=== PATIENT | female | born 1970 | race Caucasian/White ===

== ENCOUNTER 2020-08-13 12:39 | Outpatient (REF) | payer OTHER, SELFPAY ==
[2020-08-13 13:20] LABS: MANUAL DIFF FLAG NO
[2020-08-13 13:24] LABS: Hematocrit 41.6 % (37-47); Hemoglobin 13.2 g/dl (12.0-16.0); Imm Gran Abs Auto 0.01 X10*3/uL (0.00-0.03); Imm Gran Pct Auto 0.2 % (0.0-0.4); Lymphocytes Absolute Auto 1.8 X10*3/uL (1.2-4.9); Lymphocytes Percent Auto 34.4 % (20-40); Mean Corpuscular HGB Conc 31.7 g/dl (31.0-35.0); Mean Corpuscular Hemoglobin 28.1 pg (27.0-33.0); Mean Corpuscular Volume 88.7 fL (80-98); Mean Platelet Volume 11.1 fL (9.4-12.3); Monocytes Absolute Auto 0.5 X10*3/uL (0.1-1.2); Monocytes Percent Auto 10.3 % (2-11); Neutrophils Absolute Auto 2.9 X10*3/uL (2.0-8.3); Neutrophils Percent Auto 55.1 % (45-73); Platelet Count 193 X10*3/uL (160-400); Red Blood Count 4.69 X10*6/uL (4.20-5.50); Red Cell Distribution Width 13.3 % (11.0-16.0); White Blood Count 5.2 X10*3/uL (4.8-10.8)
[2020-08-13 13:48] LABS: Alanine Aminotransferase 54 U/L (0-31); Albumin Level 4.2 g/dL (3.5-5.0); Alkaline Phosphatase 122 U/L (39-117); Anion Gap 13 (12-20); Aspartate Amino Transferase 42 U/L (5-31); Bilirubin Total 1.3 mg/dL (0.0-1.0); Blood Urea Nitrogen 15 mg/dL (9-16); C Reactive Protein 0.16 mg/dL (< or = 0.50); Calcium 9.3 mg/dL (8.4-10.2); Carbon Dioxide 28 mmol/L (22-29); Chloride 102 mmol/L (96-108); Cholesterol 130 mg/dL; Estimated Glomerular Filt Rate > 60; Glucose Fasting 153 mg/dL (60-99); HDL Cholesterol 35 mg/dL; LDL Cholesterol Calculated 72 mg/dl; Potassium 3.9 mmol/l (3.3-5.1); Sodium 139 mmol/L (135-145); Total Protein 6.9 g/dL (6.5-8.0); Triglycerides 115 mg/dL
[2020-08-13 14:11] LABS: Free T4 (Free Thyroxine) 1.35 ng/dL (0.71-1.85); Thyroid Stimulating Hormone 0.84 mIU/mL (0.32-4.0)
[2020-08-13 14:13] LABS: Erythrocyte Sedimentation Rate 12 MM/HR (0-20)
[2020-08-14 22:07] LABS: Lyme Abs Screen <0.90 index
== END 2020-08-13 12:40 | disposition home or self-care (01) ==
LOC: HO.LAB 12:39
PROVIDERS: PCP Internal Medicine; Visit Provider Internal Medicine
DX: I10 Essential (primary) hypertension (principal); E78.00 Pure hypercholesterolemia, unspecified; E03.9 Hypothyroidism, unspecified; M25.551 Pain in right hip; M25.552 Pain in left hip; E11.9 Type 2 diabetes mellitus without complications; R60.0 Localized edema; R94.31 Abnormal electrocardiogram [ECG] [EKG]; Z79.82 Long term (current) use of aspirin; Z79.899 Other long term (current) drug therapy; Z79.84 Long term (current) use of oral hypoglycemic drugs
CPT/HCPCS: 36415; 80053; 80061; 84439; 84443; 85025; 85652; 86140; 86618; 93005; 99212

== ENCOUNTER 2020-12-15 11:06 | Outpatient (REF) | payer OTHER, SELFPAY | END 2020-12-15 11:07 | disposition home or self-care (01) | LOC: HO.HOSX 11:06 | PROVIDERS: Visit Provider Orthopaedic Surgery | DX: Z13.89 Encounter for screening for other disorder (principal) ==

== ENCOUNTER 2021-01-04 23:26 | Emergency (ER) | payer OTHER, SELFPAY ==
--- NOTE | ~2021-01-04 | US_ITS ---
EXAMINATION: US VENOUS ULTRASOUND WITH DOPPLER LOWER EXTREMITY, RIGHT CLINICAL INFORMATION: Swelling. COMPARISON: None TECHNIQUE: Ultrasound of the deep veins is performed from the hip to the calf with compression sonography and color and pulse Doppler assessment. Spectral analysis with color-flow imaging is performed. FINDINGS: There is normal venous compression and respiratory variation and augmented flow. The visualized common femoral vein, superficial femoral vein, profunda femoral vein, popliteal vein, and the trifurcation region shows no evidence of deep venous thrombosis. There is no significant popliteal fossa cyst. If the patient's symptoms persist, followup ultrasound in 5 days 7 days might be of value to exclude proximal propagation from a non-visualized calf vein. US/US venous duplex LE RT IMPRESSION: No DVT demonstrated in the right lower extremity.
[2021-01-04 23:30] VITALS: BP 149/90; PULSE 108; RESP 20; TEMP 36.9; O2SAT 97; BMI 34.4
--- NOTE | 2021-01-04 23:55 | ED.EXTPRO ---
HPI - Extremity Problem General Chief complaint: Extremity Problem Stated complaint: Leg pain/Swellig Time Seen by Provider: 01/04/21 23:46 Source: patient Mode of arrival: ambulatory Limitations: no limitations History of Present Illness HPI Narrative: Patient with history of severe asthma on faserna shots noticed swelling of the increased swelling of the right leg for last few days got worse today with redness and some discomfort in calf area also. No fever no chills no open wound no cough MD Complaint: extremity pain Onset (ago): day(s) (few days) Related Data Home Medications Medication Instructions Recorded Confirmed ondansetron 8 mg disintegrating 8 mg PO Q8H 07/28/20 11/10/20 tablet albuterol sulfate 90 mcg/actuation 2 puff INHALATION .4 TIMES A DAY 08/10/20 11/10/20 aerosol inhaler PRN g cholecalciferol (vitamin D3) 50 50 mcg PO DAILY 08/10/20 11/10/20 mcg (2,000 unit) capsule tizanidine 2 mg tablet 2 mg PO TID PRN 08/10/20 11/10/20 azelastine 137 mcg (0.1 %) nasal INTRANASAL 08/13/20 11/10/20 spray aerosol losartan 50 mg tablet 25 mg PO DAILY tab 08/13/20 11/10/20 Previous Rx's Medication Instructions Recorded omeprazole 40 mg capsule,delayed 40 mg PO BID 90 Days #180 cap 07/20/20 release Synthroid 112 mcg tablet 224 mcg PO DAILY 30 Days #60 tab NS 07/28/20 blood sugar diagnostic #150 ea 07/28/20 calcium citrate 500 mg PO BID 30 Days #120 tab 07/28/20 lancets 28 gauge #150 ea 07/28/20 metformin 500 mg tablet,extended 1,000 mg PO BID 30 Days #120 tab 07/28/20 release 24 hr metoprolol succinate 50 mg 50 mg PO DAILY 90 Days #90 tab 07/29/20 tablet,extended release 24 hr ferrous sulfate 325 mg (65 mg 325 mg PO DAILY #30 tab 07/30/20 iron) tablet miscellaneous medical supply 1 ea MISCELLANEOUS DAILY #2 ea 10/13/20 loratadine 10 mg tablet 10 mg PO DAILY #90 tab 10/22/20 fluconazole 150 mg tablet 150 mg PO DAILY 7 Days #7 tab 10/25/20 montelukast 10 mg tablet 10 mg PO BEDTIME #90 tab 10/27/20 atorvastatin 40 mg tablet 40 mg PO DAILY #90 tab 10/28/20 doxycycline hyclate 100 mg capsule 100 mg PO BID 10 Days #20 cap 11/04/20 DIABETIC SHOES #1 ea 11/10/20 ibuprofen 600 mg tablet 600 mg PO TID PRN #90 tab 12/17/20 hydromorphone 2 mg tablet 2 mg PO TID PRN 7 Days #21 tab 12/30/20 cephalexin 500 mg PO BID 10 Days #20 cap 01/05/21 doxycycline hyclate 100 mg PO BID #20 cap 01/05/21 hydrochlorothiazide 25 mg PO QAM #30 tab 01/05/21 Allergies Allergy/AdvReac Type Severity Reaction Status Date / Time latex [LATEX] Allergy Severe DIFFICULTY Verified 01/04/21 23:37 BREATHING levofloxacin [From LEVAQUIN] Allergy Severe SHORTNESS Verified 01/04/21 23:37 OF BREATH, RASH, rash morphine [MORPHINE] Allergy Severe RASH, Verified 01/04/21 23:37 asthma exacerbation, rash baclofen [BACLOFEN] Allergy Intermediate RASH Verified 01/04/21 23:37 celecoxib [Celebrex] Allergy Intermediate itching, Verified 01/04/21 23:37 rash, flushing prednisone [PREDNISONE] Allergy Intermediate RASH, Verified 01/04/21 23:37 asthma exacerbation, rash codeine Allergy Unknown Rash Verified 01/04/21 23:37 gluten [GLUTEN] Allergy Unknown UNKNOWN Verified 01/04/21 23:37 oxycodone Allergy Unknown rash Verified 01/04/21 23:37 ranitidine Allergy Unknown unknown Verified 01/04/21 23:37 roflumilast [Daliresp] Allergy Unknown rash Verified 01/04/21 23:37 tramadol [TRAMADOL] Allergy Unknown RASH,SHORTNESS Verified 01/04/21 23:37 OF BREATH AND HEADACHE, asthma exacerbation, rash celery, pinapple, Allergy Unknown rash Uncoded 01/04/21 23:37 strawberries ENVIROMENTAL Allergy Unknown CLEANING Uncoded 01/04/21 23:37 PRODUCTS CAUSE ASTHMA ATTACK Flexeril Allergy Unknown asthma Uncoded 01/04/21 23:37 exacerbation, rash Review of Systems Review of Systems: Constitutional : No Weight loss, No Fever, No Chills ENT/Mouth : No sore throat, No Rhinorrhea Eyes: No Eye Pain, No Swelling Cardiovascular : No Chest Pain, no palpitations Respiratory : No Cough, No Sputum, no shortness of breath Gastrointestinal : no Nausea, No Vomiting, No Diarrhea, No abdominal Pain, no black stools Genitourinary : No Dysuria, No Urinary Frequency Musculoskeletal : No joint pain, No Myalgias, No Joint Swelling Skin : No Skin Lesions, No rash Neuro : No Weakness, No Numbness, No Dizziness, No Headache Psych : No Anxiety/Panic, No Depression Heme/Lymph: No Bruising, No Lymphadenopathy Endocrine : No Polyuria, No Polydipsia All other systems reviewed and are negative [facility] Past Medical History Medical History Acquired hypothyroidism Asthma Benign essential hypertension Diabetes mellitus Gastritis History of revision of total replacement of right hip joint (~12/2019) HTN (hypertension) Hx of cataract Hypothyroidism Lumbar degenerative disc disease Mitochondrial myopathy Obesity (BMI 30-39.9) Osteoarthritis of hip Osteopenia Pain of both hip joints Pure hypercholesterolemia Right hip pain Surgical History History of elbow surgery (~07/2016) History of eye surgery (~09/2017) History of hip surgery History of removal of cyst History of total right hip arthroplasty (~06/03/19) Hx of appendectomy Hx of bilateral breast reduction surgery Hx of foot surgery Hx of hysterectomy (~07/2011) Hx of left knee surgery Hx of thumb surgery Family History Family History Father Leukemia Mother Hypertension Diabetes Sister Alive and well Brother Pancreatic cancer Paternal Grandmother Stomach cancer Paternal Grandmother Throat cancer Social History Social History Alcohol intake: never Smoking Status: Never smoker Advance Directives: No Advance Directives Information Provided: No Physical Exam Vital Signs: Vital Signs: Last Vital Signs Temp 98.4 F 01/04/21 23:30 Pulse 108 H 01/04/21 23:30 Resp 20 01/04/21 23:30 BP 149/90 H 01/04/21 23:30 Pulse Ox 97 01/04/21 23:30 Body Mass Index 34.4 Const: General: comfortable and no acute distress Orientation/consciousness: patient oriented x3 HENMT: Head: Yes normocephalic and Yes atraumatic Eyes: General: appearance normal, both eyes and all related structures Neck: Neck: Yes normal visual inspection and Yes full ROM Chest: Chest palpation & inspection: normal inspection of the chest Resp: Effort & Inspection: normal respiratory effort Auscultation: clear to auscultation bilaterally, no crackles, no rales and no rhonchi Cardio: Palpation: normal PMI Rate: regular rate Rhythm: regular rhythm Heart sounds: S1 normal heart sound present and S2 normal heart sound present GI: Inspection: Yes normal to inspection Palpation (GI): Soft to palpation and nontender : General: Yes no CVA tenderness Back/Spine/Pelvis: Back: no CVA tenderness Thoracic/Lumbar Spine: thoracic and lumbar spine normal to inspection Skin: Other: Slight erythema of the right leg without any warmth no open wound Neuro: General: patient oriented x3 and no focal motor deficits Extrem: General: Yes full ROM and Yes pedal edema Upper/lower leg/hip images: 1. Right leg swelling more than left with calf tenderness and slight erythema Kervin sign is negative MDM - Extremity (Nontraumatic) MDM Narrative Medical decision making narrative: Patient with right leg swelling and redness with normal WBC count normal lactic acid ultrasound negative for DVT, patient is on faserna. Will start patient on prophylactic antibiotic doxycycline and Keflex along with give her hydrochlorothiazide for dependent edema Lab Data Attestation: I reviewed the patient's lab results. Result diagrams: 01/05/21 00:29 01/05/21 00:28 Labs: Lab Results 01/05/21 01/05/21 01/05/21 Range/Units 00:28 00:28 00:28 WBC (4.8-10.8) X10*3/uL RBC (4.20-5.50) X10*6/uL Hgb (12.0-16.0) g/dl Hct (37-47) % MCV (80-98) fL MCH (27.0-33.0) pg MCHC (31.0-35.0) g/dl RDW (11.0-16.0) % Plt Count (160-400) X10*3/uL MPV (9.4-12.3) fL Immature Gran % (Auto) (0.0-0.4) % Neut % (Auto) (45-73) % Lymph % (Auto) (20-40) % [place] % (Auto) (2-11) % Eos % (Auto) (0-4) % Baso % (Auto) (0-2) % Lymph # (Auto) (1.2-4.9) X10*3/uL [place] # (Auto) (0.1-1.2) X10*3/uL Eos # (Auto) (0.0-0.4) X10*3/uL Baso # (Auto) (0.0-0.2) X10*3/uL Abs Immat Gran (auto) (0.00-0.03) X10*3/uL Absolute Neuts (auto) (2.0-8.3) X10*3/uL Absolute Nucleated RBC (0.0-0.012) X10*3/uL Nucleated RBC % (auto) (0.0-0.2) /100WBC PT 11.2 (10.8-13.0) SEC INR 0.9 (0.9-1.1) APTT 32.0 (24.1-38.0) SEC Sodium 138 (135-145) mmol/L Potassium 4.0 (3.3-5.1) mmol/L Chloride 102 (96-108) mmol/L Carbon Dioxide 25 (22-29) mmol/L Anion Gap 15 (12-20) BUN 17 H (9-16) mg/dL Creatinine 0.91 (0.5-1.4) mg/dL Estim Creat Clear Calc 80.0 Estimated GFR > 60 Random Glucose 234 H (60-115) mg/dL Lactic Acid (0.5-2.0) mmol/L Calcium 9.4 (8.4-10.2) mg/dL Total Bilirubin 1.2 H (0.0-1.0) mg/dL Direct Bilirubin 0.4 (0.0-0.5) mg/dL AST 31 (5-31) U/L ALT 47 H (0-31) U/L Alkaline Phosphatase 126 H (39-117) U/L B-Natriuretic Peptide 27 (<100) pg/mL Total Protein 6.8 (6.5-8.0) g/dL Albumin 3.9 (3.5-5.0) g/dL 01/05/21 01/05/21 Range/Units 00:29 00:29 WBC 5.5 (4.8-10.8) X10*3/uL RBC 4.17 L (4.20-5.50) X10*6/uL Hgb 11.8 L (12.0-16.0) g/dl Hct 36.0 L (37-47) % MCV 86.3 (80-98) fL MCH 28.3 (27.0-33.0) pg MCHC 32.8 (31.0-35.0) g/dl RDW 14.2 (11.0-16.0) % Plt Count 158 L (160-400) X10*3/uL MPV 10.6 (9.4-12.3) fL Immature Gran % (Auto) 0.2 (0.0-0.4) % Neut % (Auto) 59.4 (45-73) % Lymph % (Auto) 29.3 (20-40) % [place] % (Auto) 11.1 H (2-11) % Eos % (Auto) 0.0 (0-4) % Baso % (Auto) 0.0 (0-2) % Lymph # (Auto) 1.6 (1.2-4.9) X10*3/uL [place] # (Auto) 0.6 (0.1-1.2) X10*3/uL Eos # (Auto) 0.0 (0.0-0.4) X10*3/uL Baso # (Auto) 0.0 (0.0-0.2) X10*3/uL Abs Immat Gran (auto) 0.01 (0.00-0.03) X10*3/uL Absolute Neuts (auto) 3.3 (2.0-8.3) X10*3/uL Absolute Nucleated RBC 0.000 (0.0-0.012) X10*3/uL Nucleated RBC % (auto) 0.0 (0.0-0.2) /100WBC PT (10.8-13.0) SEC INR (0.9-1.1) APTT (24.1-38.0) SEC Sodium (135-145) mmol/L Potassium (3.3-5.1) mmol/L Chloride (96-108) mmol/L Carbon Dioxide (22-29) mmol/L Anion Gap (12-20) BUN (9-16) mg/dL Creatinine (0.5-1.4) mg/dL Estim Creat Clear Calc Estimated GFR Random Glucose (60-115) mg/dL Lactic Acid 1.9 (0.5-2.0) mmol/L Calcium (8.4-10.2) mg/dL Total Bilirubin (0.0-1.0) mg/dL Direct Bilirubin (0.0-0.5) mg/dL AST (5-31) U/L ALT (0-31) U/L Alkaline Phosphatase (39-117) U/L B-Natriuretic Peptide (<100) pg/mL Total Protein (6.5-8.0) g/dL Albumin (3.5-5.0) g/dL Discharge Plan Discharge Clinical Impression: Cellulitis Qualifiers: Site of cellulitis: extremity Site of cellulitis of extremity: lower extremity Laterality: right Qualified Code(s): L03.115 - Cellulitis of right lower limb Edema Qualifiers: Edema type: unspecified Qualified Code(s): R60.9 - Edema, unspecified Patient Disposition: Home, Self-Care Instructions: Cellulitis (ED), Edema (ED) Additional Instructions: Keep legs elevated take antibiotic as advise for possible infection right leg. Follow with PCP Prescriptions: New doxycycline hyclate 100 mg capsule 100 mg PO BID Qty: 20 RF: 0 cephalexin 500 mg capsule 500 mg PO BID 10 Days Qty: 20 RF: 0 hydrochlorothiazide 25 mg tablet 25 mg PO QAM Qty: 30 RF: 0 No Action omeprazole 40 mg capsule,delayed release(DR/EC) 40 mg PO BID 90 Days Qty: 180 RF: 3 (DME) lancets [FreeStyle Lancets] 28 gauge misc See Rx Instructions .MEDSUPPLY Qty: 150 RF: 4 (DME) FreeStyle Test Strip See Rx Instructions .MEDSUPPLY Qty: 150 RF: 6 metformin 500 mg tablet extended release 24 hr 1,000 mg PO BID 30 Days Qty: 120 RF: 5 calcium citrate 250 mg calcium tablet 500 mg PO BID 30 Days Qty: 120 RF: 5 levothyroxine [Synthroid] 112 mcg tablet 224 mcg PO DAILY 30 Days Qty: 60 RF: 5 ondansetron 8 mg tablet,disintegrating 8 mg PO Q8H RF: 0 metoprolol succinate 50 mg tablet extended release 24 hr 50 mg PO DAILY 90 Days Qty: 90 RF: 1 ferrous sulfate 325 mg (65 mg iron) tablet 325 mg PO DAILY Qty: 30 RF: 0 miscellaneous medical supply Misc 1 ea miscellaneous DAILY Qty: 2 RF: 0 loratadine 10 mg tablet 10 mg PO DAILY Qty: 90 RF: 0 fluconazole 150 mg tablet 150 mg PO DAILY 7 Days Qty: 7 RF: 0 montelukast 10 mg tablet 10 mg PO BEDTIME Qty: 90 RF: 0 atorvastatin 40 mg tablet 40 mg PO DAILY Qty: 90 RF: 0 ibuprofen 600 mg tablet 600 mg PO TID PRN (Reason: for fever) Qty: 90 RF: 2 hydromorphone 2 mg tablet 2 mg PO TID PRN (Reason: pain) 7 Days Qty: 21 RF: 0 (DME) DIABETIC SHOES See Rx Instructions .Route .MEDSUPPLY Qty: 1 RF: 0 albuterol sulfate [Ventolin HFA] 90 mcg/actuation HFA aerosol inhaler 2 puff inhalation .4 TIMES A DAY PRNRF: 0 tizanidine 2 mg tablet 2 mg PO TID PRNRF: 0 cholecalciferol (vitamin D3) 50 mcg (2,000 unit) capsule 50 mcg PO DAILY RF: 0 losartan 50 mg tablet 25 mg PO DAILY RF: 0 doxycycline hyclate 100 mg capsule 100 mg PO BID 10 Days Qty: 20 RF: 0 azelastine 137 mcg (0.1 %) aerosol,spray intranasal RF: 0
[2021-01-05 00:36] LABS: MANUAL DIFF FLAG NO
[2021-01-05 00:41] LABS: Hemoglobin 11.8 g/dl (12.0-16.0); Imm Gran Abs Auto 0.01 X10*3/uL (0.00-0.03); Imm Gran Pct Auto 0.2 % (0.0-0.4); Lymphocytes Absolute Auto 1.6 X10*3/uL (1.2-4.9); Lymphocytes Percent Auto 29.3 % (20-40); Mean Corpuscular HGB Conc 32.8 g/dl (31.0-35.0); Mean Corpuscular Hemoglobin 28.3 pg (27.0-33.0); Mean Corpuscular Volume 86.3 fL (80-98); Mean Platelet Volume 10.6 fL (9.4-12.3); Monocytes Absolute Auto 0.6 X10*3/uL (0.1-1.2); Monocytes Percent Auto 11.1 % (2-11); Neutrophils Absolute Auto 3.3 X10*3/uL (2.0-8.3); Neutrophils Percent Auto 59.4 % (45-73); Platelet Count 158 X10*3/uL (160-400); Red Blood Count 4.17 X10*6/uL (4.20-5.50); Red Cell Distribution Width 14.2 % (11.0-16.0); White Blood Count 5.5 X10*3/uL (4.8-10.8)
[2021-01-05 00:48] LABS: INTERNATIONAL NORM RATIO 0.9 (0.9-1.1); Prothrombin Time 11.2 SEC (10.8-13.0)
[2021-01-05 01:00] LABS: Lactic Acid 1.9 mmol/L (0.5-2.0)
[2021-01-05 01:03] LABS: Alanine Aminotransferase 47 U/L (0-31); Albumin Level 3.9 g/dL (3.5-5.0); Alkaline Phosphatase 126 U/L (39-117); Anion Gap 15 (12-20); Aspartate Amino Transferase 31 U/L (5-31); Bilirubin Direct 0.4 mg/dL (0.0-0.5); Bilirubin Total 1.2 mg/dL (0.0-1.0); Blood Urea Nitrogen 17 mg/dL (9-16); Calcium 9.4 mg/dL (8.4-10.2); Carbon Dioxide 25 mmol/L (22-29); Chloride 102 mmol/L (96-108); Estimated Glomerular Filt Rate > 60; Glucose Random 234 mg/dL (60-115); Sodium 138 mmol/L (135-145); Total Protein 6.8 g/dL (6.5-8.0)
[2021-01-05 01:06] LABS: B Type Natriuretic Peptide 27 pg/mL (<100)
[2021-01-05] MEDS: cephALEXin 500 MG CAPSULE PO (01:31)
[2021-01-05 01:42] VITALS: BP 150/84; PULSE 80; RESP 18; O2SAT 97
== END 2021-01-05 01:53 | disposition home or self-care (01) ==
PROVIDERS: Emergency Provider Internal Medicine; PCP Internal Medicine
DX: R60.0 Localized edema (principal); L03.115 Cellulitis of right lower limb; M79.604 Pain in right leg; I10 Essential (primary) hypertension; E11.9 Type 2 diabetes mellitus without complications
CPT/HCPCS: 36415; 80048; 80076; 83605; 83880; 85025; 85610; 85730; 87040; 93971; 99284

== ENCOUNTER → 2021-01-15 13:35 | Outpatient (BNVA) | payer OTHER, SELFPAY | PROVIDERS: PCP Internal Medicine; Visit Provider Hospitalist | DX: J45.50 Severe persistent asthma, uncomplicated (principal); D80.1 Nonfamilial hypogammaglobulinemia; G47.33 Obstructive sleep apnea (adult) (pediatric) | CPT/HCPCS: 90471; 90732; 99202 ==

== ENCOUNTER 2021-02-03 16:55 | Emergency (ER) | payer OTHER, SELFPAY ==
--- NOTE | ~2021-02-03 | XR_ITS ---
EXAMINATION: PORTABLE CHEST 1 VIEW CLINICAL INFORMATION: sob . COMPARISON: 12/07/2019. TECHNIQUE: Portable frontal view of the chest was obtained. FINDINGS: The lungs are hypoexpanded with chronic appearing coarsened reticular markings again seen. No focal infiltrate, effusion, edema, or pneumothorax. Cardiac and mediastinal silhouettes are within normal limits for technique. Right-sided CT compatible chest port in place with the tip overlying the expected cavoatrial junction No acute bony abnormality seen. XR/XR chest 1V IMPRESSION: Hypoexpanded with chronic appearing reticular markings but no overt edema or consolidation.
[2021-02-03 17:18] VITALS: BP 150/96; BP 163/94; PULSE 87; PULSE 98; RESP 22; TEMP 36.8; O2SAT 100; BMI 34.8
--- NOTE | 2021-02-03 17:38 | ED.SOB ---
HPI - SOB/Dyspnea General Chief Complaint: General Medical Stated Complaint: SOB Time Seen by Provider: 02/03/21 17:33 Source: patient Mode of arrival: EMS Limitations: no limitations History of Present Illness HPI Narrative: Patient has history of asthma diabetes mellitus hypertension Brugada syndrome type 2 anxiety comes here frequently for shortness of breath. Today she came here for similar complaints of shortness of breath for last few days but she was saturating 100% room air not wheezing. Patient also does have chronic bilateral leg edema which is going on for last 1 month treated for cellulitis patient denies any chest pain no cough no fever no chills patient used inhaler multiple times without significant relief MD elicited complaint: shortness of breath Related Data Home Medications Medication Instructions Recorded Confirmed ondansetron 8 mg disintegrating 8 mg PO Q8H 07/28/20 01/17/21 tablet albuterol sulfate 90 mcg/actuation 2 puff INHALATION .4 TIMES A DAY 08/10/20 01/17/21 aerosol inhaler PRN g cholecalciferol (vitamin D3) 50 50 mcg PO DAILY 08/10/20 01/17/21 mcg (2,000 unit) capsule tizanidine 2 mg tablet 2 mg PO TID PRN 08/10/20 01/17/21 azelastine 137 mcg (0.1 %) nasal INTRANASAL 08/13/20 01/17/21 spray aerosol benralizumab 30 mg/mL subcutaneous mg SUBCUT 01/15/21 01/17/21 syringe immune glob,gamma (IgG) 10 ml IV Q3W ml 01/15/21 01/17/21 %-gly-IgA over 50 mcg/mL injection solution levalbuterol tartrate 45 0 mcg INHALATION 01/15/21 01/17/21 mcg/actuation aerosol inhaler pyridostigmine bromide 60 mg tablet 0 mg PO 01/15/21 01/17/21 Previous Rx's Medication Instructions Recorded omeprazole 40 mg capsule,delayed 40 mg PO BID 90 Days #180 cap 07/20/20 release Synthroid 112 mcg tablet 224 mcg PO DAILY 30 Days #60 tab NS 07/28/20 blood sugar diagnostic #150 ea 07/28/20 calcium citrate 500 mg PO BID 30 Days #120 tab 07/28/20 lancets 28 gauge #150 ea 07/28/20 metformin 500 mg tablet,extended 1,000 mg PO BID 30 Days #120 tab 07/28/20 release 24 hr metoprolol succinate 50 mg 50 mg PO DAILY 90 Days #90 tab 07/29/20 tablet,extended release 24 hr ferrous sulfate 325 mg (65 mg 325 mg PO DAILY #30 tab 07/30/20 iron) tablet miscellaneous medical supply 1 ea MISCELLANEOUS DAILY #2 ea 10/13/20 fluconazole 150 mg tablet 150 mg PO DAILY 7 Days #7 tab 10/25/20 doxycycline hyclate 100 mg capsule 100 mg PO BID 10 Days #20 cap 11/04/20 DIABETIC SHOES #1 ea 11/10/20 ibuprofen 600 mg tablet 600 mg PO TID PRN #90 tab 12/17/20 cephalexin 500 mg PO BID 10 Days #20 cap 01/05/21 doxycycline hyclate 100 mg PO BID #20 cap 01/05/21 hydrochlorothiazide 25 mg PO QAM #30 tab 01/05/21 amoxicillin 875 mg tablet 875 mg PO Q12H 10 Days #20 tab 01/07/21 loratadine 10 mg tablet 10 mg PO DAILY #90 tab 01/15/21 losartan 25 mg tablet 25 mg PO DAILY #90 tab 01/15/21 mometasone 100 mcg/actuation HFA 2 puff INHALATION BID 30 Days #13 g 01/15/21 aerosol inhaler montelukast 10 mg tablet 10 mg PO BEDTIME #90 tab 01/15/21 atorvastatin 40 mg tablet 40 mg PO DAILY #90 tab 01/27/21 hydromorphone 2 mg tablet 2 mg PO TID PRN 7 Days #21 tab 01/27/21 sulfamethoxazole-trimethoprim 1 tab PO BID #20 tab 02/03/21 [Bactrim DS] Allergies Allergy/AdvReac Type Severity Reaction Status Date / Time latex [LATEX] Allergy Severe DIFFICULTY Verified 01/17/21 22:02 BREATHING levofloxacin [From LEVAQUIN] Allergy Severe SHORTNESS Verified 01/17/21 22:02 OF BREATH, RASH, rash morphine [MORPHINE] Allergy Severe RASH, Verified 01/17/21 22:02 asthma exacerbation, rash baclofen [BACLOFEN] Allergy Intermediate RASH Verified 01/17/21 22:02 celecoxib [Celebrex] Allergy Intermediate itching, Verified 01/17/21 22:02 rash, flushing prednisone [PREDNISONE] Allergy Intermediate RASH, Verified 01/17/21 22:02 asthma exacerbation, rash codeine Allergy Unknown Rash Verified 01/17/21 22:02 gluten [GLUTEN] Allergy Unknown UNKNOWN Verified 01/17/21 22:02 oxycodone Allergy Unknown rash Verified 01/17/21 22:02 ranitidine Allergy Unknown unknown Verified 01/17/21 22:02 roflumilast [Daliresp] Allergy Unknown rash Verified 01/17/21 22:02 tramadol [TRAMADOL] Allergy Unknown RASH,SHORTNESS Verified 01/17/21 22:02 OF BREATH AND HEADACHE, asthma exacerbation, rash cephalexin AdvReac Intermediate Difficulty Verified 01/17/21 22:02 Breathing celery, pinapple, Allergy Unknown rash Uncoded 01/17/21 22:02 strawberries ENVIROMENTAL Allergy Unknown CLEANING Uncoded 01/17/21 22:02 PRODUCTS CAUSE ASTHMA ATTACK Flexeril Allergy Unknown asthma Uncoded 01/17/21 22:02 exacerbation, rash Review of Systems Review of Systems: Constitutional : No Weight loss, No Fever, No Chills ENT/Mouth : No sore throat, No Rhinorrhea Eyes: No Eye Pain, No Swelling Cardiovascular : No Chest Pain, no palpitations Respiratory : No Cough, No Sputum, +shortness of breath Gastrointestinal : no Nausea, No Vomiting, No Diarrhea, No abdominal Pain, no black stools Genitourinary : No Dysuria, No Urinary Frequency Musculoskeletal : No joint pain, No Myalgias, No Joint Swelling Skin : No Skin Lesions, No rash Neuro : No Weakness, No Numbness, No Dizziness, No Headache Psych : No Anxiety/Panic, No Depression Heme/Lymph: No Bruising, No Lymphadenopathy Endocrine : No Polyuria, No Polydipsia All other systems reviewed and are negative [facility] Past Medical History Medical History Acquired hypothyroidism Asthma Asthma Benign essential hypertension Cellulitis of both lower extremities Diabetes mellitus Gastritis History of revision of total replacement of right hip joint (~12/2019) HTN (hypertension) Hx of cataract Hypogammaglobulinemia Hypothyroidism Lumbar degenerative disc disease Mitochondrial myopathy Obesity (BMI 30-39.9) CHARLES (obstructive sleep apnea) Osteoarthritis of hip Osteopenia Pain of both hip joints Pure hypercholesterolemia Right hip pain Surgical History History of elbow surgery (~07/2016) History of eye surgery (~09/2017) History of hip surgery History of removal of cyst History of total right hip arthroplasty (~06/03/19) Hx of appendectomy Hx of bilateral breast reduction surgery Hx of foot surgery Hx of hysterectomy (~07/2011) Hx of left knee surgery Hx of thumb surgery Family History Family History Father Leukemia Mother Hypertension Diabetes Sister Alive and well Brother Pancreatic cancer Paternal Grandmother Stomach cancer Paternal Grandmother Throat cancer Social History Social History Alcohol intake: never Smoking Status: Former smoker Advance Directives: No Advance Directives Information Provided: Yes Physical Exam Vital Signs: Vital Signs: Last Vital Signs Temp 98.3 F 02/03/21 17:18 Pulse 87 02/03/21 17:18 Resp 22 H 02/03/21 17:18 BP 163/94 H 02/03/21 17:18 Pulse Ox 100 02/03/21 17:18 Body Mass Index 34.8 Appearance: Alert. Oriented X3. Mild distress very anxious saturating 100% at room air Eyes: Pupils equal, round and reactive to light. ENT: Pharynx normal. Neck: Normal inspection. Neck supple. CVS: Normal heart rate and rhythm. Pulses normal. Respiratory: No respiratory distress. No wheezing or rhonchi no rales Prolonged expiration Abdomen: Soft and nontender. Bowel sounds are present, no mass palpable, no CVA tenderness Skin: Skin warm and dry. Normal skin color. Normal skin turgor. Extremities: Bilateral leg edema, right lower extremity with cellulitic changes which seems to be chronic Neuro: Oriented X 3. No motor deficit. No sensory deficit. MDM - SOB/Dyspnea MDM Narrative Medical decision making narrative: Patient's subjective shortness of breath with history of asthma saturating 97-100% at room air chest x-ray negative lab stable does have chronic cellulitis on right leg on doxycycline will add Bactrim. Advised to follow up with her PCP Lab Data Result diagrams: 02/03/21 18:49 02/03/21 18:41 Labs: Lab Results 02/03/21 02/03/21 02/03/21 Range/Units 18:41 18:49 18:49 WBC 5.3 (4.8-10.8) X10*3/uL RBC 3.73 L (4.20-5.50) X10*6/uL Hgb 10.7 L (12.0-16.0) g/dl Hct 31.5 L (37-47) % MCV 84.5 (80-98) fL MCH 28.7 (27.0-33.0) pg MCHC 34.0 (31.0-35.0) g/dl RDW 13.4 (11.0-16.0) % Plt Count 156 L (160-400) X10*3/uL MPV 10.7 (9.4-12.3) fL Immature Gran % (Auto) 0.2 (0.0-0.4) % Neut % (Auto) 60.1 (45-73) % Lymph % (Auto) 28.1 (20-40) % [place] % (Auto) 11.6 H (2-11) % Eos % (Auto) 0.0 (0-4) % Baso % (Auto) 0.0 (0-2) % Lymph # (Auto) 1.5 (1.2-4.9) X10*3/uL [place] # (Auto) 0.6 (0.1-1.2) X10*3/uL Eos # (Auto) 0.0 (0.0-0.4) X10*3/uL Baso # (Auto) 0.0 (0.0-0.2) X10*3/uL Abs Immat Gran (auto) 0.01 (0.00-0.03) X10*3/uL Absolute Neuts (auto) 3.2 (2.0-8.3) X10*3/uL Absolute Nucleated RBC 0.000 (0.0-0.012) X10*3/uL Nucleated RBC % (auto) 0.0 (0.0-0.2) /100WBC PT 12.2 (10.8-13.0) SEC INR 1.0 (0.9-1.1) APTT 32.0 (24.1-38.0) SEC Sodium 135 (135-145) mmol/L Potassium 3.9 (3.3-5.1) mmol/L Chloride 101 (96-108) mmol/L Carbon Dioxide 21 L (22-29) mmol/L Anion Gap 17 (12-20) BUN 10 (9-16) mg/dL Creatinine 0.65 (0.5-1.4) mg/dL Estim Creat Clear Calc 112.5 Estimated GFR > 60 Random Glucose 123 H D (60-115) mg/dL Calcium 9.3 (8.4-10.2) mg/dL Total Bilirubin 1.2 H (0.0-1.0) mg/dL Direct Bilirubin 0.4 (0.0-0.5) mg/dL AST 30 (5-31) U/L ALT 31 (0-31) U/L Alkaline Phosphatase 127 H (39-117) U/L B-Natriuretic Peptide (<100) pg/mL Total Protein 6.4 L (6.5-8.0) g/dL Albumin 3.8 (3.5-5.0) g/dL 02/03/21 Range/Units 18:49 WBC (4.8-10.8) X10*3/uL RBC (4.20-5.50) X10*6/uL Hgb (12.0-16.0) g/dl Hct (37-47) % MCV (80-98) fL MCH (27.0-33.0) pg MCHC (31.0-35.0) g/dl RDW (11.0-16.0) % Plt Count (160-400) X10*3/uL MPV (9.4-12.3) fL Immature Gran % (Auto) (0.0-0.4) % Neut % (Auto) (45-73) % Lymph % (Auto) (20-40) % [place] % (Auto) (2-11) % Eos % (Auto) (0-4) % Baso % (Auto) (0-2) % Lymph # (Auto) (1.2-4.9) X10*3/uL [place] # (Auto) (0.1-1.2) X10*3/uL Eos # (Auto) (0.0-0.4) X10*3/uL Baso # (Auto) (0.0-0.2) X10*3/uL Abs Immat Gran (auto) (0.00-0.03) X10*3/uL Absolute Neuts (auto) (2.0-8.3) X10*3/uL Absolute Nucleated RBC (0.0-0.012) X10*3/uL Nucleated RBC % (auto) (0.0-0.2) /100WBC PT (10.8-13.0) SEC INR (0.9-1.1) APTT (24.1-38.0) SEC Sodium (135-145) mmol/L Potassium (3.3-5.1) mmol/L Chloride (96-108) mmol/L Carbon Dioxide (22-29) mmol/L Anion Gap (12-20) BUN (9-16) mg/dL Creatinine (0.5-1.4) mg/dL Estim Creat Clear Calc Estimated GFR Random Glucose (60-115) mg/dL Calcium (8.4-10.2) mg/dL Total Bilirubin (0.0-1.0) mg/dL Direct Bilirubin (0.0-0.5) mg/dL AST (5-31) U/L ALT (0-31) U/L Alkaline Phosphatase (39-117) U/L B-Natriuretic Peptide 75 (<100) pg/mL Total Protein (6.5-8.0) g/dL Albumin (3.5-5.0) g/dL ECG Data Attestation: I personally reviewed and interpreted this ECG as follows: Interpretation: Normal sinus rhythm heart rate 92 beats per minute right bundle-branch block possible criteria for Brugada syndrome LVH no acute ST T-wave changes no arrhythmias no acute ischemia Discharge Plan Discharge Clinical Impression: Asthma Qualifiers: Asthma severity: moderate Asthma persistence: persistent Asthma complication type: with acute exacerbation Qualified Code(s): J45.41 - Moderate persistent asthma with (acute) exacerbation Cellulitis Qualifiers: Site of cellulitis: extremity Site of cellulitis of extremity: lower extremity Laterality: right Qualified Code(s): L03.115 - Cellulitis of right lower limb Patient Disposition: Home, Self-Care Instructions: Asthma (ED), Cellulitis (ED) Additional Instructions: Continue your medications start taking Bactrim for cellulitis right leg Prescriptions: New sulfamethoxazole-trimethoprim [Bactrim DS] 800-160 mg tablet 1 tab PO BID Qty: 20 RF: 0 No Action omeprazole 40 mg capsule,delayed release(DR/EC) 40 mg PO BID 90 Days Qty: 180 RF: 3 (DME) lancets [FreeStyle Lancets] 28 gauge misc See Rx Instructions .MEDSUPPLY Qty: 150 RF: 4 (DME) FreeStyle Test Strip See Rx Instructions .MEDSUPPLY Qty: 150 RF: 6 metformin 500 mg tablet extended release 24 hr 1,000 mg PO BID 30 Days Qty: 120 RF: 5 calcium citrate 250 mg calcium tablet 500 mg PO BID 30 Days Qty: 120 RF: 5 levothyroxine [Synthroid] 112 mcg tablet 224 mcg PO DAILY 30 Days Qty: 60 RF: 5 ondansetron 8 mg tablet,disintegrating 8 mg PO Q8H RF: 0 metoprolol succinate 50 mg tablet extended release 24 hr 50 mg PO DAILY 90 Days Qty: 90 RF: 1 ferrous sulfate 325 mg (65 mg iron) tablet 325 mg PO DAILY Qty: 30 RF: 0 miscellaneous medical supply Misc 1 ea miscellaneous DAILY Qty: 2 RF: 0 fluconazole 150 mg tablet 150 mg PO DAILY 7 Days Qty: 7 RF: 0 ibuprofen 600 mg tablet 600 mg PO TID PRN (Reason: for fever) Qty: 90 RF: 2 losartan 25 mg tablet 25 mg PO DAILY Qty: 90 RF: 3 loratadine 10 mg tablet 10 mg PO DAILY Qty: 90 RF: 1 montelukast 10 mg tablet 10 mg PO BEDTIME Qty: 90 RF: 1 hydromorphone 2 mg tablet 2 mg PO TID PRN (Reason: pain) 7 Days Qty: 21 RF: 0 atorvastatin 40 mg tablet 40 mg PO DAILY Qty: 90 RF: 1 doxycycline hyclate 100 mg capsule 100 mg PO BID Qty: 20 RF: 0 cephalexin 500 mg capsule 500 mg PO BID 10 Days Qty: 20 RF: 0 hydrochlorothiazide 25 mg tablet 25 mg PO QAM Qty: 30 RF: 0 (DME) DIABETIC SHOES See Rx Instructions .Route .MEDSUPPLY Qty: 1 RF: 0 amoxicillin 875 mg tablet 875 mg PO Q12H 10 Days Qty: 20 RF: 0 albuterol sulfate [Ventolin HFA] 90 mcg/actuation HFA aerosol inhaler 2 puff inhalation .4 TIMES A DAY PRNRF: 0 tizanidine 2 mg tablet 2 mg PO TID PRNRF: 0 cholecalciferol (vitamin D3) 50 mcg (2,000 unit) capsule 50 mcg PO DAILY RF: 0 doxycycline hyclate 100 mg capsule 100 mg PO BID 10 Days Qty: 20 RF: 0 azelastine 137 mcg (0.1 %) aerosol,spray intranasal RF: 0 pyridostigmine bromide 60 mg tablet 0 mg PO RF: 0 Fasenra 30 mg/mL syringe subcut RF: 0 Gammagard Liquid 10 % solution IV Q3W RF: 0 levalbuterol tartrate 45 mcg/actuation HFA aerosol inhaler 0 mcg inhalation RF: 0 Asmanex HFA 100 mcg/actuation HFA aerosol inhaler 2 puff inhalation BID 30 Days Qty: 13 RF: 11
--- NOTE | 2021-02-03 17:44 | ECG_ITS ---
Test Reason : BRUGOTTAS Blood Pressure : / mmHG Vent. Rate : 092 BPM Atrial Rate : 092 BPM P-R Int : 130 ms QRS Dur : 150 ms QT Int : 414 ms P-R-T Axes : 029 -21 000 degrees QTc Int : 511 ms Normal sinus rhythm Right bundle branch block Minimal voltage criteria for LVH, may be normal variant Abnormal ECG When compared to the previous EKG of Right bundle branch block Present Referred By: Bashir Peters Electronically Signed By:Jordan Lehman
--- NOTE | 2021-02-03 18:07 | PC.NURSE ---
attempted x2 to access port unable to, pt states its always a hard access. Ced RN will attempt
[2021-02-03 19:07] LABS: Hematocrit 31.5 % (37-47); Hemoglobin 10.7 g/dl (12.0-16.0); Imm Gran Abs Auto 0.01 X10*3/uL (0.00-0.03); Imm Gran Pct Auto 0.2 % (0.0-0.4); Lymphocytes Absolute Auto 1.5 X10*3/uL (1.2-4.9); Lymphocytes Percent Auto 28.1 % (20-40); MANUAL DIFF FLAG NO; Mean Corpuscular Hemoglobin 28.7 pg (27.0-33.0); Mean Corpuscular Volume 84.5 fL (80-98); Mean Platelet Volume 10.7 fL (9.4-12.3); Monocytes Absolute Auto 0.6 X10*3/uL (0.1-1.2); Monocytes Percent Auto 11.6 % (2-11); Neutrophils Absolute Auto 3.2 X10*3/uL (2.0-8.3); Neutrophils Percent Auto 60.1 % (45-73); Platelet Count 156 X10*3/uL (160-400); Red Blood Count 3.73 X10*6/uL (4.20-5.50); Red Cell Distribution Width 13.4 % (11.0-16.0); White Blood Count 5.3 X10*3/uL (4.8-10.8)
[2021-02-03 19:14] LABS: Prothrombin Time 12.2 SEC (10.8-13.0)
--- NOTE | 2021-02-03 19:22 | PC.NURSE ---
Report received. PT is sitting up in bed. C/O SOB, cellulitis on right leg, and bilateral edema. Lung sounds clear bilaterally. Hx of pneumonia. O2 sat 98%. +1 bilateral pitting edema pitting edema in lower legs.
[2021-02-03 19:26] LABS: Alanine Aminotransferase 31 U/L (0-31); Albumin Level 3.8 g/dL (3.5-5.0); Alkaline Phosphatase 127 U/L (39-117); Anion Gap 17 (12-20); Aspartate Amino Transferase 30 U/L (5-31); Bilirubin Direct 0.4 mg/dL (0.0-0.5); Bilirubin Total 1.2 mg/dL (0.0-1.0); Blood Urea Nitrogen 10 mg/dL (9-16); Calcium 9.3 mg/dL (8.4-10.2); Carbon Dioxide 21 mmol/L (22-29); Chloride 101 mmol/L (96-108); Creatinine Clr Calc Pharmacy 112.5; Estimated Glomerular Filt Rate > 60; Glucose Random 123 mg/dL (60-115); Potassium 3.9 mmol/L (3.3-5.1); Sodium 135 mmol/L (135-145); Total Protein 6.4 g/dL (6.5-8.0)
[2021-02-03 19:38] LABS: B Type Natriuretic Peptide 75 pg/mL (<100)
[2021-02-03 19:48] VITALS: BP 153/84; PULSE 99; RESP 16; TEMP 36.5; O2SAT 98
== END 2021-02-03 20:11 | disposition home or self-care (01) ==
PROVIDERS: Emergency Provider Internal Medicine
DX: J45.41 Moderate persistent asthma with (acute) exacerbation (principal); L03.115 Cellulitis of right lower limb; R60.0 Localized edema; E11.9 Type 2 diabetes mellitus without complications; I10 Essential (primary) hypertension; I49.8 Other specified cardiac arrhythmias; F41.9 Anxiety disorder, unspecified; E78.00 Pure hypercholesterolemia, unspecified; Z79.84 Long term (current) use of oral hypoglycemic drugs; Z79.02 Long term (current) use of antithrombotics/antiplatelets; Z79.899 Other long term (current) drug therapy; Z87.01 Personal history of pneumonia (recurrent)
CPT/HCPCS: 36415; 71045; 80048; 80076; 83880; 85025; 85610; 85730; 87635; 93005; 96360; 99284

== ENCOUNTER → 2021-02-22 14:07 | Outpatient (BNVA) | payer OTHER, SELFPAY | PROVIDERS: Visit Provider Internal Medicine | DX: L03.119 Cellulitis of unspecified part of limb (principal); D80.1 Nonfamilial hypogammaglobulinemia; J45.50 Severe persistent asthma, uncomplicated; B35.3 Tinea pedis | CPT/HCPCS: 99202 ==

== ENCOUNTER 2021-03-11 13:59 | Outpatient (REF) | payer OTHER, SELFPAY ==
--- NOTE | 2021-03-11 15:31 | PFT_ITS ---
INDICATION: Asthma. SPIROMETRY: The FEV1 to FVC is 79% with an FEV1 of 1.97 L, which is 70% predicted, and an FVC of 2.49 L, which is 70% predicted. No significant response to bronchodilators noted. Maximum voluntary ventilation 64% predicted. LUNG VOLUMES: Total lung capacity 80% predicted with an expiratory reserve volume of 48% predicted. DIFFUSION CAPACITY: DLCO 71% predicted. COMPARISONS: None. INTERPRETATION: No definitive obstructive nor restrictive ventilatory defects identified. No significant response to bronchodilators noted. Mild decrease in maximum voluntary ventilation. Lung volumes are low normal. In addition to that, there is a mild diffusion impairment. Clinical correlation warranted. Saturnino Vanegas MD MR/MODL / [id number]
== END 2021-03-11 14:00 | disposition home or self-care (01) ==
LOC: HO.RESP 13:59
PROVIDERS: PCP Internal Medicine; Visit Provider Hospitalist
DX: G47.33 Obstructive sleep apnea (adult) (pediatric) (principal); J45.50 Severe persistent asthma, uncomplicated; D80.1 Nonfamilial hypogammaglobulinemia
CPT/HCPCS: 94060; 94727; 94729; 99212

== ENCOUNTER → 2021-03-29 13:05 | Outpatient (REF) | payer OTHER, SELFPAY | LOC: HO.SL 13:05 | PROVIDERS: PCP Internal Medicine; Visit Provider Hospitalist | DX: Z13.89 Encounter for screening for other disorder (principal) ==

== ENCOUNTER → 2021-05-11 13:22 | Outpatient (BNVA) | payer OTHER, SELFPAY | PROVIDERS: PCP Internal Medicine; Visit Provider Hospitalist | DX: J45.50 Severe persistent asthma, uncomplicated (principal); G47.33 Obstructive sleep apnea (adult) (pediatric); D80.1 Nonfamilial hypogammaglobulinemia | CPT/HCPCS: 99212 ==

== ENCOUNTER → 2021-05-31 15:00 | Outpatient (REF) | payer OTHER, SELFPAY | LOC: HO.SL 15:00 | PROVIDERS: PCP Internal Medicine; Visit Provider Hospitalist | DX: G47.33 Obstructive sleep apnea (adult) (pediatric) (principal) | CPT/HCPCS: 95806 ==

== ENCOUNTER 2021-06-04 14:05 | Outpatient (REF) | payer OTHER, SELFPAY ==
--- NOTE | ~2021-06-04 | FL_ITS ---
EXAMINATION: XR FLUOROSCOPY CLINICAL INFORMATION: Port check question blockage. COMPARISON: None TECHNIQUE: Following explaining procedure, benefits and risk for port check under fluoroscopy, a written consent was obtained. Patient was placed supine on fluoroscopy table and the port chamber was clinically palpated. Due to lateral position of the port along the chest wall. The the hardware appears sideways. Once the hardware was straightened it was easily accessible with a Heubner needle following sterile preparation. There was easy aspiration of blood and injection of contrast and subsequently saline flush. No obstruction seen. There is no kinking of catheter. FINDINGS: Widely patent PORT catheter no kinking or obstruction seen. The port is sideways placed and can be accessed by pushing it in a horizontal position. It is not reversed. FLUOROSCOPY TIME: 0.6 minutes DOSE AREA PRODUCT: 9.259 uGy-m2 (microgray-meter squared) FL/FL fluoroscopy <1hr IMPRESSION: Widely patent PORT catheter.
== END 2021-06-04 14:06 | disposition home or self-care (01) ==
LOC: HO.XRAY 14:05
PROVIDERS: PCP Internal Medicine; Visit Provider Internal Medicine
DX: Z45.2 Encounter for adjustment and management of vascular access device (principal)
CPT/HCPCS: 76000

== ENCOUNTER 2021-06-28 15:57 | Outpatient (REF) | payer OTHER, SELFPAY ==
--- NOTE | ~2021-06-28 | XR_ITS ---
EXAMINATION: XR HIP, RIGHT CLINICAL INFORMATION: Right hip pain. COMPARISON: 06/17/2020 TECHNIQUE: Two views of the right hip. FINDINGS: The patient is status post right hip total arthroplasty with femoral and acetabular components appearing in good position. No evidence of acute fracture or hardware failure. No evidence of loosening. There is some heterotopic ossification/calcification within the soft tissues about the lateral aspect of the hip and greater trochanter. XR/XR hip RT min 2V IMPRESSION: Stable appearance of the right hip total arthroplasty without evidence of hardware failure or fracture.
== END 2021-06-28 15:58 | disposition home or self-care (01) ==
LOC: HO.XRAY 15:57
PROVIDERS: PCP Internal Medicine; Visit Provider Internal Medicine
DX: M25.551 Pain in right hip (principal)
CPT/HCPCS: 73502

== ENCOUNTER → 2021-07-09 13:39 | Outpatient (BNVA) | payer OTHER, SELFPAY | PROVIDERS: PCP Internal Medicine; Visit Provider Hospitalist | DX: G47.33 Obstructive sleep apnea (adult) (pediatric) (principal); D80.1 Nonfamilial hypogammaglobulinemia; J45.50 Severe persistent asthma, uncomplicated | CPT/HCPCS: 99212 ==

== ENCOUNTER 2021-07-14 15:49 | Emergency (ER) | payer OTHER, SELFPAY ==
[2021-07-14 16:27] VITALS: BP 159/76; RESP 18; TEMP 36.8; O2SAT 100; BMI 35.2
--- NOTE | 2021-07-14 18:27 | ED.GENADULT ---
HPI - General Adult General Chief complaint: General Medical Stated complaint: cellulitis Time Seen by Provider: 07/14/21 18:18 Source: patient Mode of arrival: ambulatory Limitations: no limitations History of Present Illness HPI narrative: Patient's history of mitochondrial myopathy hypertension diabetes asthma noticed slight redness of the right leg for last 2 days used to be on penicillin in the past not taking any medicine now afraid that the cellulitis will come back no fever no chills no open wounds Related Data Home Medications Medication Instructions Recorded Confirmed ondansetron 8 mg disintegrating 8 mg PO Q8H 07/28/20 05/11/21 tablet albuterol sulfate 90 mcg/actuation 2 puff INHALATION .4 TIMES A DAY 08/10/20 05/11/21 aerosol inhaler (Ventolin HFA) PRN g cholecalciferol (vitamin D3) 50 50 mcg PO DAILY 08/10/20 05/11/21 mcg (2,000 unit) capsule azelastine 137 mcg (0.1 %) nasal INTRANASAL 08/13/20 05/11/21 spray aerosol levalbuterol tartrate 45 0 mcg INHALATION 01/15/21 03/11/21 mcg/actuation aerosol inhaler diclofenac sodium 1 % topical gel g TOPICAL 03/11/21 05/11/21 epinephrine 0.3 mg/0.3 mL IM DIRECTED 03/11/21 05/11/21 injection, auto-injector ipratropium bromide 42 mcg (0.06 2 spray INTRANASAL BID 03/11/21 05/11/21 %) nasal spray benralizumab 30 mg/mL subcutaneous mg SUBCUT 07/09/21 syringe (Fasenra) immune glob,gamma(IgG) 5 40 g IV Q3W 07/09/21 [id number]-IgA 0 to 50 mcg/mL IV solution (Gammagard S-D (IgA < 1 mcg/mL)) pyridostigmine bromide 60 mg tablet 60 mg PO QID tab 07/09/21 Previous Rx's Medication Instructions Recorded omeprazole 40 mg capsule,delayed 40 mg PO BID 90 Days #180 cap 07/20/20 release calcium citrate 500 mg PO BID 30 Days #120 tab 07/28/20 lancets 28 gauge (FreeStyle #150 ea 07/28/20 Lancets) metformin 500 mg tablet,extended 1,000 mg PO BID 30 Days #120 tab 07/28/20 release 24 hr miscellaneous medical supply 1 ea MISCELLANEOUS DAILY #2 ea 10/13/20 DIABETIC SHOES #1 ea 11/10/20 losartan 25 mg tablet 25 mg PO DAILY #90 tab 01/15/21 mometasone 100 mcg/actuation HFA 2 puff INHALATION BID 30 Days #13 g 01/15/21 aerosol inhaler (Asmanex HFA) blood sugar diagnostic (FreeStyle 1 strip MISCELLANEOUS .4 times a 02/19/21 Lite Strips) day 30 Days #150 strip penicillin V potassium 250 mg 250 mg PO BID 30 Days #60 tab 02/22/21 tablet loratadine 10 mg tablet 10 mg PO DAILY PRN 90 Days #90 tab 03/01/21 levalbuterol HCl 1.25 mg/3 mL 1.25 mg INHALATION BID 30 Days 03/11/21 solution for nebulization (Xopenex) #180 ml levalbuterol tartrate 45 2 puff INHALATION Q6H PRN 30 Days 03/11/21 mcg/actuation aerosol inhaler #15 g (Xopenex HFA) Synthroid 112 mcg tablet 224 mcg PO DAILY 30 Days #60 tab NS 03/17/21 (levothyroxine) fluconazole 150 mg tablet 150 mg PO DAILY 10 Days #10 tab 05/11/21 (Diflucan) metoprolol succinate 50 mg 50 mg PO DAILY 90 Days #90 tab 05/12/21 tablet,extended release 24 hr atorvastatin 40 mg tablet 40 mg PO DAILY 90 Days #90 tab 05/25/21 ibuprofen 600 mg tablet 600 mg PO TID PRN #90 tab 06/18/21 montelukast 10 mg tablet 10 mg PO BEDTIME #90 tab 06/18/21 tizanidine 2 mg tablet 2 mg PO TID PRN 30 Days #90 tab 06/18/21 ferrous sulfate 325 mg (65 mg 325 mg PO DAILY #90 tab 06/22/21 iron) tablet (FeroSul) amoxicillin 875 mg-potassium 1 tab PO BID 10 Days #20 tab 07/09/21 clavulanate 125 mg tablet (Augmentin) benzonatate 200 mg capsule 200 mg PO BID PRN 30 Days #60 cap 07/09/21 umeclidinium 62.5 mcg-vilanterol 1 inh INHALATION DAILY #60 ea 07/09/21 25 mcg/actuation powdr for inhalation (Anoro Ellipta) doxycycline hyclate 100 mg tablet 100 mg PO BID #20 tab 07/14/21 hydromorphone 2 mg tablet 2 mg PO TID PRN 7 Days #21 tab 07/14/21 Allergies Allergy/AdvReac Type Severity Reaction Status Date / Time latex [LATEX] Allergy Severe DIFFICULTY Verified 07/09/21 14:03 BREATHING levofloxacin [From LEVAQUIN] Allergy Severe SHORTNESS Verified 07/09/21 14:03 OF BREATH, RASH, rash morphine [MORPHINE] Allergy Severe RASH, Verified 07/09/21 14:03 asthma exacerbation, rash baclofen [BACLOFEN] Allergy Intermediate RASH Verified 07/09/21 14:03 celecoxib [Celebrex] Allergy Intermediate itching, Verified 07/09/21 14:03 rash, flushing prednisone [PREDNISONE] Allergy Intermediate RASH, Verified 07/09/21 14:03 asthma exacerbation, rash codeine Allergy Unknown Rash Verified 07/09/21 14:03 gluten [GLUTEN] Allergy Unknown UNKNOWN Verified 07/09/21 14:03 oxycodone Allergy Unknown rash Verified 07/09/21 14:03 ranitidine Allergy Unknown unknown Verified 07/09/21 14:03 roflumilast [Daliresp] Allergy Unknown rash Verified 07/09/21 14:03 tramadol [TRAMADOL] Allergy Unknown RASH,SHORTNESS Verified 07/09/21 14:03 OF BREATH AND HEADACHE, asthma exacerbation, rash cephalexin AdvReac Intermediate Difficulty Verified 07/09/21 14:03 Breathing celery, pinapple, Allergy Unknown rash Uncoded 07/09/21 14:03 strawberries ENVIROMENTAL Allergy Unknown CLEANING Uncoded 07/09/21 14:03 PRODUCTS CAUSE ASTHMA ATTACK Flexeril Allergy Unknown asthma Uncoded 07/09/21 14:03 exacerbation, rash Review of Systems Review of Systems: Yes all other systems are reviewed and are negative PMFSH Past Medical History Medical History Acquired hypothyroidism Asthma Asthma Benign essential hypertension Cellulitis of both lower extremities Diabetes mellitus Encounter for care related to Port-a-Cath Gastritis History of revision of total replacement of right hip joint (~12/2019) HTN (hypertension) Hx of cataract Hypogammaglobulinemia Hypothyroidism Lumbar degenerative disc disease Mitochondrial myopathy Obesity (BMI 30-39.9) CHARLES (obstructive sleep apnea) Osteoarthritis of hip Osteopenia Pain of both hip joints Pure hypercholesterolemia Recurrent cellulitis of lower extremity Right hip pain Tinea pedis Surgical History History of elbow surgery (~07/2016) History of eye surgery (~09/2017) History of hip surgery History of removal of cyst History of total right hip arthroplasty (~06/03/19) Hx of appendectomy Hx of bilateral breast reduction surgery Hx of foot surgery Hx of hysterectomy (~07/2011) Hx of left knee surgery Hx of thumb surgery Family History Family History Father Leukemia Mother Hypertension Diabetes Sister Alive and well Brother Pancreatic cancer Paternal Grandmother Stomach cancer Paternal Grandmother Throat cancer Social History Social History Alcohol intake: never Patient Tobacco Use Status: Never used Tobacco Advance Directives: No Advance Directives Information Provided: No Patient : No Physical Exam Vital Signs: Vital Signs: Last Vital Signs Temp 98.2 F 07/14/21 16:27 Resp 18 07/14/21 16:27 BP 159/76 H 07/14/21 16:27 Pulse Ox 100 07/14/21 16:27 Body Mass Index 35.2 Appearance: Alert. Oriented X3. No acute distress. ENT: Pharynx normal. Oral Mucosa moist Neck: Normal inspection. Neck supple. CVS: Normal heart rate and rhythm. Pulses normal. Respiratory: No respiratory distress. Equal air entry bilateral, no wheezing/rales/rhonchi Abdomen: Soft and nontender. Bowel sounds are present Skin: Skin warm and dry. Normal skin color. Normal skin turgor. Extremities: No lower extremity edema. No calf tenderness slight erythema of the right lower leg without significant warmth Neuro: Oriented X 3. Discharge Plan Discharge Clinical Impression: Cellulitis Patient Disposition: Home, Self-Care Instructions: Cellulitis (ED) Additional Instructions: Local care as advised Take antibiotic as prescribed Report your PCP/ED worsening of the redness or swelling Prescriptions: New doxycycline hyclate 100 mg tablet 100 mg PO BID Qty: 20 RF: 0 No Action omeprazole 40 mg capsule,delayed release(DR/EC) 40 mg PO BID 90 Days Qty: 180 RF: 3 (DME) lancets [FreeStyle Lancets] 28 gauge misc See Rx Instructions .MEDSUPPLY Qty: 150 RF: 4 metformin 500 mg tablet extended release 24 hr 1,000 mg PO BID 30 Days Qty: 120 RF: 5 calcium citrate 250 mg calcium tablet 500 mg PO BID 30 Days Qty: 120 RF: 5 ondansetron 8 mg tablet,disintegrating 8 mg PO Q8H RF: 0 miscellaneous medical supply Misc 1 ea miscellaneous DAILY Qty: 2 RF: 0 losartan 25 mg tablet 25 mg PO DAILY Qty: 90 RF: 3 blood sugar diagnostic [FreeStyle Lite Strips] Strip 1 strip miscellaneous .4 times a day 30 Days Qty: 150 RF: 5 loratadine 10 mg tablet 10 mg PO DAILY PRN (Reason: allergy symptoms) 90 Days Qty: 90 RF: 1 levothyroxine [Synthroid] 112 mcg tablet 224 mcg PO DAILY 30 Days Qty: 60 RF: 5 metoprolol succinate 50 mg tablet extended release 24 hr 50 mg PO DAILY 90 Days Qty: 90 RF: 1 atorvastatin 40 mg tablet 40 mg PO DAILY 90 Days Qty: 90 RF: 1 montelukast 10 mg tablet 10 mg PO BEDTIME Qty: 90 RF: 0 ibuprofen 600 mg tablet 600 mg PO TID PRN (Reason: for fever) Qty: 90 RF: 0 tizanidine 2 mg tablet 2 mg PO TID PRN (Reason: muscle spasticity) 30 Days Qty: 90 RF: 2 ferrous sulfate [FeroSul] 325 mg (65 mg iron) tablet 325 mg PO DAILY Qty: 90 RF: 0 hydromorphone 2 mg tablet 2 mg PO TID PRN (Reason: pain) 7 Days Qty: 21 RF: 0 (DME) DIABETIC SHOES See Rx Instructions .Route .MEDSUPPLY Qty: 1 RF: 0 albuterol sulfate [Ventolin HFA] 90 mcg/actuation HFA aerosol inhaler 2 puff inhalation .4 TIMES A DAY PRNRF: 0 cholecalciferol (vitamin D3) 50 mcg (2,000 unit) capsule 50 mcg PO DAILY RF: 0 azelastine 137 mcg (0.1 %) aerosol,spray intranasal RF: 0 levalbuterol tartrate 45 mcg/actuation HFA aerosol inhaler 0 mcg inhalation RF: 0 Asmanex HFA 100 mcg/actuation HFA aerosol inhaler 2 puff inhalation BID 30 Days Qty: 13 RF: 11 pyridostigmine bromide 60 mg tablet 60 mg PO QID RF: 0 fluconazole [Diflucan] 150 mg tablet 150 mg PO DAILY 10 Days Qty: 10 RF: 0 Fasenra 30 mg/mL syringe subcut RF: 0 Gammagard S-D (IgA < 1 mcg/mL) 5 gram recon soln 40 g IV Q3W RF: 0 Anoro Ellipta 62.5-25 mcg/actuation blister with device 1 inh inhalation DAILY Qty: 60 RF: 11 amoxicillin-pot clavulanate [Augmentin] 875-125 mg tablet 1 tab PO BID 10 Days Qty: 20 RF: 0 benzonatate 200 mg capsule 200 mg PO BID PRN (Reason: cough) 30 Days Qty: 60 RF: 6 ipratropium bromide 42 mcg (0.06 %) spray,non-aerosol 2 spray intranasal BID RF: 0 diclofenac sodium 1 % gel topical RF: 0 epinephrine 0.3 mg/0.3 mL auto-injector IM DIRECTED RF: 0 levalbuterol HCl [Xopenex] 1.25 mg/3 mL solution for nebulization 1.25 mg inhalation BID 30 Days Qty: 180 RF: 5 levalbuterol tartrate [Xopenex HFA] 45 mcg/actuation HFA aerosol inhaler 2 puff inhalation Q6H PRN (Reason: shortness of breath or wheezing) 30 Days Qty: 15 RF: 11 penicillin V potassium 250 mg tablet 250 mg PO BID 30 Days Qty: 60 RF: 5 Discharge Date/Time: 07/14/21 18:42
== END 2021-07-14 18:42 | disposition home or self-care (01) ==
LOC: HO.ED 18:28
PROVIDERS: Emergency Provider Internal Medicine; PCP Internal Medicine
DX: L03.115 Cellulitis of right lower limb (principal); Z79.899 Other long term (current) drug therapy
CPT/HCPCS: 99282; 99283

== ENCOUNTER → 2021-08-05 13:35 | Outpatient (BNVA) | payer OTHER, SELFPAY | PROVIDERS: PCP Internal Medicine; Referring Provider Internal Medicine; Visit Provider Internal Medicine Cardiovascular Disease | DX: R06.02 Shortness of breath (principal); R07.89 Other chest pain; I10 Essential (primary) hypertension; R94.31 Abnormal electrocardiogram [ECG] [EKG]; E11.9 Type 2 diabetes mellitus without complications; E78.00 Pure hypercholesterolemia, unspecified; D80.1 Nonfamilial hypogammaglobulinemia; J30.1 Allergic rhinitis due to pollen; Z91.018 Allergy to other foods; Z88.8 Allergy status to other drugs, medicaments and biological substances; Z88.6 Allergy status to analgesic agent; Z91.02 Food additives allergy status; Z91.040 Latex allergy status; Z79.84 Long term (current) use of oral hypoglycemic drugs; Z79.899 Other long term (current) drug therapy | CPT/HCPCS: 99212 ==

== ENCOUNTER → 2021-08-25 13:37 | Outpatient (BNVA) | payer OTHER, SELFPAY | PROVIDERS: Visit Provider Internal Medicine | DX: L03.116 Cellulitis of left lower limb (principal); L03.115 Cellulitis of right lower limb; I10 Essential (primary) hypertension; E11.9 Type 2 diabetes mellitus without complications; E78.00 Pure hypercholesterolemia, unspecified; E03.9 Hypothyroidism, unspecified; D80.1 Nonfamilial hypogammaglobulinemia; Z88.6 Allergy status to analgesic agent; Z91.02 Food additives allergy status; Z91.09 Other allergy status, other than to drugs and biological substances; Z91.040 Latex allergy status; Z88.5 Allergy status to narcotic agent; Z88.8 Allergy status to other drugs, medicaments and biological substances; Z91.018 Allergy to other foods; Z79.84 Long term (current) use of oral hypoglycemic drugs; Z79.899 Other long term (current) drug therapy | CPT/HCPCS: 99212 ==

== ENCOUNTER → 2021-09-03 13:55 | Outpatient (BNVA) | payer OTHER, SELFPAY | PROVIDERS: PCP Internal Medicine; Visit Provider Hospitalist | DX: G47.33 Obstructive sleep apnea (adult) (pediatric) (principal); J45.50 Severe persistent asthma, uncomplicated; D80.1 Nonfamilial hypogammaglobulinemia | CPT/HCPCS: 99212 ==

== ENCOUNTER → 2021-09-07 14:03 | Outpatient (BNVA) | payer OTHER, SELFPAY | PROVIDERS: PCP Internal Medicine; Referring Provider Internal Medicine; Visit Provider Surgery | DX: D17.9 Benign lipomatous neoplasm, unspecified (principal) | CPT/HCPCS: 99212 ==

== ENCOUNTER → 2021-10-04 08:34 | Outpatient (REF) | payer OTHER, SELFPAY ==
--- NOTE | ~2021-10-04 | NM_ITS ---
Lexiscan Myocardial perfusion study Indication: Shortness of breath, chest pain, abnormal EKG, assess for ischemia Technique: The patient was brought in for a Lexiscan perfusion study on 10/04/2021 and was injected 0.4 mg of Lexiscan intravenously. Within a minute of this injection 35 mCi of sestamibi was given intravenously. Images were obtained using the SPECT gamma camera interlaced with the gating device. Images were obtained in supine position. Resting perfusion study was performed on 10/05/2021. Patient was administered 35 mCi of sestamibi intravenously at rest. Images were then obtained in supine position. Total DLP 123mGy-cm. Images were processed with the software and compared side to side in short axis, horizontal long axis and vertical long axis views. Findings: Raw acquisition was reviewed. The stress perfusion study showed diminished tracer uptake in the distal part of inferolateral wall. No significant change with CT attenuation correction. There is also slightly reduced uptake in the basal part of septum but that might be the mitral valve plane. The gated study shows normal LV systolic function with calculated LVEF of 65%. LV cavity is normal in size. The gated study shows normal wall thickening and contraction of segments. Resting study shows mildly reduced tracer uptake in the distal part of inferolateral wall, similar to stress acquisition. There is also reduced uptake in the basal part of septum similar to stress acquisition, possibly from mitral valve plane. Gating at rest reveals normal wall motion with ejection fraction at 64%. The findings are consistent with fixed apical inferolateral defect; no clear reversible defects. NM/NM shelby perf SPECT rest & str Impression: 1. Myocardial perfusion imaging study shows no clear evidence of any ischemia or infarction. Likely normal myocardial perfusion. 2. Gated LVEF is 65% during stress and 64% during rest. 3. Transient ischemic dilatation not present. EKG component of the test reported separately.
--- NOTE | 2021-10-04 08:40 | CA_ITS ---
Acquisition Time: 2021-10-04 10:38:27 Total Exercise Time: 00:02:00 Test Indications: CHEST PAIN SOB Medications: METFORMIN METOPROL ATORVASTATIN ALBUTEROL LOSARTAN Protocol: LEXISCAN Max HR: 112 BPM 66% of Pred: 169 BPM Max BP: 138/090 mmHG Max Work Load: 1.0 METS Pharmacological stress test with Lexiscan injection, while sitting and exercising right arm, with sob post injection, without arrythmia, with normotensive response to injection, with nondiagnostic EKG for ischemia. In recovery she reported shortness of breath and nausea that was treated with Aminophylline 75mg IVP with resolution of symptoms. Nuclear images pending. Test reviewed with Dr Kang. Referred By: Spencer Wright Overread By: MURIEL WHELAN
--- NOTE | 2021-10-04 08:40 | CA_ITS ---
Transthoracic Echocardiogram Patient (Last, First, Middle): Deysi Armendariz R Gender: Female Date of : 1970 Age: 50 Procedure Date: 10/04/2021 Procedure Type: Transthoracic Echocardiogram Location: OP Height: 162.56 cm Weight: 95.71 kg BSA: 2.00 m2 Heart Rate: bpm BP: 130 / 78 mmHg Scutcher Tender: JESENIA Referring MD: Spencer Wright MD Symptoms: R07.89 - Other chest pain Study Quality: Good ECG Rhythm: Sinus Conclusions: - The left ventricular systolic function is normal. The visually estimated ejection fraction is between 55-60%. - No obvious valvular pathology seen on this study. Findings Left Ventricle Normal left ventricular cavity size. There is normal left ventricular wall thickness. The left ventricular systolic function is normal. The visually estimated ejection fraction is between 55-60%. There is no evidence of regional wall motion abnormalities. Diastolic function is normal for age. E/E prime ratio is <8, consistent with normal filling pressures. Right Ventricle Normal right ventricular cavity size and systolic function. Atria Both atria are normal in size. Aortic Valve There is a normal trileaflet aortic valve. There is no aortic valve stenosis. There is no aortic valve regurgitation. Mitral Valve There is mild mitral annular calcification. There is trace mitral valve regurgitation. There is no mitral valve stenosis. Pulmonic Valve The pulmonic valve was not well visualized. There is trace pulmonic valve regurgitation. Tricuspid Valve Normal tricuspid valve structure. There is trace tricuspid valve regurgitation. The pulmonary artery systolic pressure is normal. Great Vessels The aortic annulus, sinuses of valsalva, and asc aorta are normal in size. Venous The inferior vena cava was not well visualized. Likely normal size. Pericardium/Pleural There is no evidence of pericardial effusion. Prior Study Comparison No significant change compared to prior study dated: 04/29/2017. Recommendations, Care & Conclusions No obvious valvular pathology seen on this study. Measurements 2D Linear Measurements IVSd: 0.98 0.6-0.9/0.6-1.0 cm LVIDd: 5.61 3.9-5.3/4.2-5.9 cm LVIDd Index: 2.81 2.4-3.2/2.2-3.1 cm/m2 LVIDs: 3.84 2.0-3.6 cm LVPWd: 0.84 0.7-1.1 cm Ao Root: 3.20 2.1-3.5 cm LA Diam: 3.90 2.7-3.8/3.0-4.0 cm LAIDs Index: 1.95 1.5-2.3 cm/m2 LV Mass: 242.44 67-162/88-224 g LV Mass Index: 121.22 43-95/49-115 g/m2 LVOT Diam: 2.00 3.0+(-)1.3 cm 2D Systolic Function EF 4C: 57.90 >55% Mitral Valve MV Pk E: 0.71 MV PK A: 0.77 MV Decel Time: 234.00 E/A: 0.90 E'Lateral: 10.40 E'Medial: 10.10 E/E' Med: 7.00 E/E' Lat: 6.80 PHT: 69.00 MVA PHT: 3.19 Decel [place]: 3.02 Aortic Valve AoV Pk Ad: 1.48 AoV Pk Grad: 9.00 LVOT LVOT Pk Ad: 0.93 LVOT Mn Ad: 0.62 LVOT VTI: 0.22 LVOT Pk Grad: 3.00 LVOT Mn Grad: 2.00 LVOT Diam: 2.00 LVOT Area: 3.14 Diastolic Function MV Pk E: 0.71 MV Pk A: 0.77 E/A: 0.90 E'Medial: 10.10 E/E' Med: 7.00 E' Laterial: 10.40 E/E' Lat: 6.80 Right Ventricle TAPSE (mm): 2.19 TVS' Ad: 12.70 Tricuspid Valve TR Pk Ad: 2.24 TR Pk Grad: 20.00 RA Press: 3.00 RVSP: 23.00 Great Vessels Aorta Ao Root-2D: 3.20 2.0-3.7 cm Ao Asc: 3.10 2.1-3.4 cm Updated in Other Vendor System with Status of Final Ángel Kang MD electronically signed on 10/06/2021 11:54:35 AM with status of Final
== END ==
LOC: HO.CARD 08:34
PROVIDERS: PCP Internal Medicine; Visit Provider Internal Medicine Cardiovascular Disease
DX: R07.89 Other chest pain (principal); R06.02 Shortness of breath
CPT/HCPCS: 78452; 93017; 93306; A9500; J0280; J2785

== ENCOUNTER → 2021-10-12 14:12 | Outpatient (BNVA) | payer OTHER, SELFPAY | PROVIDERS: PCP Internal Medicine; Referring Provider Internal Medicine; Visit Provider Nurse Practitioner Family | DX: R06.02 Shortness of breath (principal); I49.8 Other specified cardiac arrhythmias; I10 Essential (primary) hypertension; E66.9 Obesity, unspecified | CPT/HCPCS: 99212 ==

== ENCOUNTER 2021-10-14 07:53 | Outpatient (REF) | payer OTHER, SELFPAY ==
[2021-10-14 08:03] VITALS: BP 170/97; PULSE 71; RESP 16; TEMP 36.6; O2SAT 97
[2021-10-14 08:04] VITALS: BMI 36.6
[2021-10-14 08:35] VITALS: BP 166/85; PULSE 76; RESP 16; O2SAT 98
--- NOTE | 2021-10-14 08:42 | P.OP_ITS ---
Operative Note Operative Note Date of Service: 10/14/21 Narrative: Preoperative diagnosis: Cyst of the left forearm Postoperative diagnosis: Same Procedure: Excision of cyst left forearm Surgeon: Norris Moss MD Quality Assurance Assessor: None Anesthesia: Local Indications for procedure: 50-year-old female with a painful palpable lump in the left forearm Operative findings: Cystic lesion measuring approximately 1 cm in left forearm Specimen: Cyst left forearm Estimated blood loss: 1 mL Complications: None Procedure details: Patient was brought to the minor surgery suite placed in a supine position. The left forearm site of surgery was confirmed by the patient. After performing a surgical time-out confirming the informed consent, the skin was prepped Betadine and draped in the sterile fashion. Local anesthesia consisting of 1% lidocaine with epinephrine was infiltrated over the cyst. A longitudinal incision was then created over the lesion. This was carried out through subcutaneous tissue up to the cyst wall. Sharp dissection was then used to dissect the lesion the surrounding subcutaneous tissue. This was passed off the table and sent to pathology for further examination. Skin was reapproximated using interrupted 3-0 Polysorb sutures followed by skin taco. Sterile dressings consisting of 2 x 2 gauze and Tegaderm were then applied. The patient tolerated the procedure well was discharged to home in stable condition.
== END 2021-10-14 07:54 | disposition home or self-care (01) ==
LOC: HO.MS 07:53
PROVIDERS: PCP Internal Medicine; Visit Provider Surgery
PROC: (CPT 11402; principal; 2021-10-14 08:00)
DX: L72.9 Follicular cyst of the skin and subcutaneous tissue, unspecified (principal); M79.632 Pain in left forearm
CPT/HCPCS: 11402; 88304; 88312

== ENCOUNTER → 2021-10-21 11:04 | Outpatient (BNVA) | payer OTHER, SELFPAY | PROVIDERS: PCP Internal Medicine; Referring Provider Internal Medicine; Visit Provider Surgery | DX: Z48.817 Encounter for surgical aftercare following surgery on the skin and subcutaneous tissue (principal); Z87.2 Personal history of diseases of the skin and subcutaneous tissue | CPT/HCPCS: 99212 ==

== ENCOUNTER 2021-10-27 12:28 | Outpatient (REF) | payer OTHER, SELFPAY ==
[2021-10-27 13:15] LABS: Appearance Urine CLEAR; Color Urine YELLOW; Glucose Urine UA NEG (NEG); Leukocyte Esterase Urine 1+ (NEG); Nitrite Urine NEG (NEG); PH 5.5 (5.0-8.0); Specific Gravity - Urine 1.025 (1.005-1.025); UACC Culture Trigger YES; Urine Blood 2+ (NEG); Urine Ketones NEG (NEG); Urine Protein TRACE MG/DL (NEG-TRACE)
[2021-10-27 14:02] LABS: Bacteria Urine 2+ /LPF; Mucus Urine 1+ /LPF; Squamous Epithelial Cell Urine 1+ /LPF
== END 2021-10-27 12:29 | disposition home or self-care (01) ==
LOC: HO.LAB 12:28
PROVIDERS: PCP Internal Medicine; Visit Provider Internal Medicine
DX: N39.0 Urinary tract infection, site not specified (principal)
CPT/HCPCS: 81001; 87086; 87088; 87186

== ENCOUNTER → 2021-12-02 14:36 | Outpatient (BNVA) | payer OTHER, SELFPAY | PROVIDERS: PCP Internal Medicine; Referring Provider Internal Medicine; Visit Provider Surgery | DX: Z48.89 Encounter for other specified surgical aftercare (principal); Z48.02 Encounter for removal of sutures | CPT/HCPCS: 99202 ==

== ENCOUNTER → 2021-12-21 14:08 | Outpatient (BNVA) | payer OTHER, SELFPAY | PROVIDERS: PCP Internal Medicine; Referring Provider Internal Medicine; Visit Provider Nurse Practitioner Family | DX: Z01.810 Encounter for preprocedural cardiovascular examination (principal); I49.8 Other specified cardiac arrhythmias; E66.9 Obesity, unspecified; I10 Essential (primary) hypertension; R06.02 Shortness of breath | CPT/HCPCS: 93005; 99212 ==

== ENCOUNTER 2021-12-22 13:33 | Outpatient (REF) | payer OTHER, SELFPAY ==
[2021-12-22 13:56] LABS: MANUAL DIFF FLAG NO
[2021-12-22 14:05] LABS: Hemoglobin 11.2 g/dl (12.0-16.0); Imm Gran Abs Auto 0.01 X10*3/uL (0.00-0.03); Imm Gran Pct Auto 0.3 % (0.0-0.4); Lymphocytes Absolute Auto 1.5 X10*3/uL (1.2-4.9); Lymphocytes Percent Auto 37.1 % (20-40); Mean Corpuscular HGB Conc 32.9 g/dl (31.0-35.0); Mean Corpuscular Hemoglobin 28.4 pg (27.0-33.0); Mean Corpuscular Volume 86.1 fL (80.0-98.0); Mean Platelet Volume 10.5 fL (9.4-12.3); Monocytes Absolute Auto 0.5 X10*3/uL (0.1-1.2); Monocytes Percent Auto 12.3 % (2-11); Neutrophils Percent Auto 50.3 % (45-73); Platelet Count 126 X10*3/uL (160-400); Red Blood Count 3.95 X10*6/uL (4.20-5.50); Red Cell Distribution Width 13.9 % (11.0-16.0); White Blood Count 3.9 X10*3/uL (4.8-10.8)
[2021-12-22 14:14] LABS: Partial Thromboplastin Time 31.3 SEC (24.1-38.0)
[2021-12-22 14:36] LABS: Estimated Average Glucose 177 mg/dL; Hemoglobin A1c % 7.8 %
[2021-12-22 14:40] LABS: Alanine Aminotransferase 50 U/L (0-31); Albumin Level 3.8 g/dL (3.5-5.0); Alkaline Phosphatase 120 U/L (39-117); Anion Gap 10 (12-20); Aspartate Amino Transferase 30 U/L (5-31); Bilirubin Total 0.7 mg/dL (0.0-1.0); Blood Urea Nitrogen 17 mg/dL (9-16); Calcium 9.4 mg/dL (8.4-10.2); Carbon Dioxide 29 mmol/L (22-29); Chloride 103 mmol/L (96-108); Estimated Glomerular Filt Rate > 60; Glucose Random 234 mg/dL (60-115); Potassium 4.7 mmol/L (3.3-5.1); Sodium 137 mmol/L (135-145)
[2021-12-22 14:51] LABS: Free T4 (Free Thyroxine) 1.23 ng/dL (0.71-1.85)
== END 2021-12-22 13:34 | disposition home or self-care (01) ==
LOC: HO.LAB 13:33
PROVIDERS: PCP Internal Medicine; Visit Provider Internal Medicine
DX: Z01.818 Encounter for other preprocedural examination (principal); E03.9 Hypothyroidism, unspecified; E11.9 Type 2 diabetes mellitus without complications
CPT/HCPCS: 36415; 80053; 83036; 84439; 84443; 85025; 85610; 85730

== ENCOUNTER → 2022-01-04 12:54 | Outpatient (BNVA) | payer OTHER, SELFPAY | PROVIDERS: PCP Internal Medicine; Visit Provider Hospitalist | DX: Z23 Encounter for immunization (principal); J45.50 Severe persistent asthma, uncomplicated; D80.1 Nonfamilial hypogammaglobulinemia; G47.33 Obstructive sleep apnea (adult) (pediatric) | CPT/HCPCS: 90471; 90732; 99212 ==

== ENCOUNTER 2022-03-05 08:28 | Outpatient (REF) | payer OTHER, SELFPAY ==
[2022-03-05 08:59] LABS: MANUAL DIFF FLAG NO
[2022-03-05 09:14] LABS: Basophils Percent Auto 0.1 % (0-2); Hematocrit 38.3 % (37.0-47.0); Hemoglobin 12.2 g/dl (12.0-16.0); Imm Gran Abs Auto 0.03 X10*3/uL (0.00-0.03); Imm Gran Pct Auto 0.4 % (0.0-0.4); Lymphocytes Absolute Auto 2.5 X10*3/uL (1.2-4.9); Mean Corpuscular HGB Conc 31.9 g/dl (31.0-35.0); Mean Corpuscular Hemoglobin 27.6 pg (27.0-33.0); Mean Corpuscular Volume 86.7 fL (80.0-98.0); Mean Platelet Volume 10.3 fL (9.4-12.3); Monocytes Absolute Auto 0.5 X10*3/uL (0.1-1.2); Monocytes Percent Auto 7.6 % (2-11); Neutrophils Absolute Auto 3.7 x10*3/uL (2.0-8.3); Neutrophils Percent Auto 54.9 % (45-73); Platelet Count 121 X10*3/uL (160-400); Red Blood Count 4.42 X10*6/uL (4.20-5.50); Red Cell Distribution Width 13.9 % (11.0-16.0); White Blood Count 6.7 X10*3/uL (4.8-10.8)
[2022-03-05 09:24] LABS: Estimated Average Glucose 180 mg/dL; Hemoglobin A1c % 7.9 %
[2022-03-05 09:30] LABS: Appearance Urine CLEAR; Color Urine YELLOW; Glucose Urine UA NEG (NEG); Leukocyte Esterase Urine NEG (NEG); Nitrite Urine NEG (NEG); Urine Blood NEG (NEG); Urine Ketones NEG (NEG); Urine Protein NEG (NEG-TRACE)
[2022-03-05 09:47] LABS: Alanine Aminotransferase 71 U/L (0-31); Alkaline Phosphatase 144 U/L (39-117); Anion Gap 11 (12-20); Aspartate Amino Transferase 35 U/L (5-31); Bilirubin Total 0.6 mg/dL (0.0-1.0); Blood Urea Nitrogen 23 mg/dL (9-16); Calcium 9.3 mg/dL (8.4-10.2); Carbon Dioxide 29 mmol/L (22-29); Chloride 103 mmol/L (96-108); Cholesterol 143 mg/dL; Estimated Glomerular Filt Rate > 60; Glucose Fasting 105 mg/dL (60-99); HDL Cholesterol 31 mg/dL; LDL Cholesterol Calculated 87 mg/dl; Potassium 4.3 mmol/L (3.3-5.1); Sodium 139 mmol/L (135-145); Total Protein 6.7 g/dL (6.5-8.0); Triglycerides 129 mg/dL
[2022-03-05 10:08] LABS: Free T4 (Free Thyroxine) 1.27 ng/dL (0.71-1.85); Thyroid Stimulating Hormone 2.07 uIU/mL (0.32-4.0); Vitamin D 25-OH Total 30.7 ng/mL (>30)
[2022-03-05 12:35] LABS: Creatinine Urine 94.68 mg/dL; Microalbum/Creatinine Ratio Ur 5.2 ug/mg cr
== END 2022-03-05 08:29 | disposition home or self-care (01) ==
LOC: HO.LAB 08:28
PROVIDERS: PCP Internal Medicine; Visit Provider Internal Medicine
DX: I10 Essential (primary) hypertension (principal); E78.00 Pure hypercholesterolemia, unspecified; E03.9 Hypothyroidism, unspecified; E55.9 Vitamin D deficiency, unspecified; E11.9 Type 2 diabetes mellitus without complications
CPT/HCPCS: 36415; 80053; 80061; 81003; 82043; 82306; 83036; 84439; 84443; 85025

== ENCOUNTER → 2022-04-06 11:29 | Outpatient (BNVA) | payer OTHER, SELFPAY | PROVIDERS: Visit Provider Internal Medicine | DX: L03.115 Cellulitis of right lower limb (principal); L03.116 Cellulitis of left lower limb | CPT/HCPCS: 99212 ==

== ENCOUNTER 2022-04-25 11:02 | Outpatient (REF) | payer OTHER, SELFPAY ==
--- NOTE | 2022-04-25 12:56 | PFT_ITS ---
Forced vital capacity 69%, FEV1 of 73%. FEV1/FVC ratio is 83. [id number] of 89% and MVV is 71%. Post bronchodilator therapy, there is no change. Total lung capacity 73% and residual volume 64%. Diffusion capacity 68%. CONCLUSION: There is evidence of mild to moderate degree of restrictive pulmonary disorder. No obstructive airway disorder and no response to bronchodilator therapy. Compared to the results of PFT on 03/11/2021, the lung volumes are decreased, diffusion capacity is also decreased. Clinical correlation is recommended. Maxwell Parr MD MSB/MODL / [id number]
== END 2022-04-25 11:03 | disposition home or self-care (01) ==
LOC: HO.RESP 11:02
PROVIDERS: Visit Provider Hospitalist
DX: J45.50 Severe persistent asthma, uncomplicated (principal)
CPT/HCPCS: 94060; 94727; 94729

== ENCOUNTER → 2022-05-09 11:28 | Outpatient (BNVA) | payer OTHER, SELFPAY | PROVIDERS: PCP Internal Medicine; Visit Provider Hospitalist | DX: J45.50 Severe persistent asthma, uncomplicated (principal); J98.4 Other disorders of lung; G47.33 Obstructive sleep apnea (adult) (pediatric); D80.1 Nonfamilial hypogammaglobulinemia; Z79.899 Other long term (current) drug therapy | CPT/HCPCS: 99212 ==

== ENCOUNTER → 2022-06-07 13:57 | Outpatient (BNVA) | payer OTHER, SELFPAY | PROVIDERS: PCP Internal Medicine; Visit Provider Internal Medicine Endocrinology, Diabetes & Metabolism | DX: E11.9 Type 2 diabetes mellitus without complications (principal); Z79.84 Long term (current) use of oral hypoglycemic drugs | CPT/HCPCS: 82947; 83036; 99212 ==

== ENCOUNTER → 2022-06-13 11:20 | Outpatient (BNVA) | payer OTHER, SELFPAY | PROVIDERS: PCP Internal Medicine; Visit Provider Dietitian, Registered | DX: E11.9 Type 2 diabetes mellitus without complications (principal); Z71.3 Dietary counseling and surveillance | CPT/HCPCS: 97802 ==

== ENCOUNTER 2022-06-16 11:37 | Outpatient (REF) | payer OTHER, SELFPAY ==
[2022-06-16 12:05] LABS: MANUAL DIFF FLAG NO
[2022-06-16 13:22] LABS: Hematocrit 35.9 % (37.0-47.0); Imm Gran Abs Auto 0.02 X10*3/uL (0.00-0.03); Imm Gran Pct Auto 0.3 % (0.0-0.4); Lymphocytes Absolute Auto 1.5 X10*3/uL (1.2-4.9); Lymphocytes Percent Auto 23.6 % (20-40); Mean Corpuscular HGB Conc 33.4 g/dl (31.0-35.0); Mean Corpuscular Hemoglobin 28.4 pg (27.0-33.0); Mean Corpuscular Volume 84.9 fL (80.0-98.0); Mean Platelet Volume 11.4 fL (9.4-12.3); Monocytes Absolute Auto 0.4 X10*3/uL (0.1-1.2); Monocytes Percent Auto 6.8 % (2-11); Neutrophils Absolute Auto 4.4 x10*3/uL (2.0-8.3); Neutrophils Percent Auto 69.3 % (45-73); Platelet Count 144 X10*3/uL (160-400); Red Blood Count 4.23 X10*6/uL (4.20-5.50); Red Cell Distribution Width 13.8 % (11.0-16.0); White Blood Count 6.3 X10*3/uL (4.8-10.8)
[2022-06-16 13:45] LABS: Estimated Average Glucose 169 mg/dL; Hemoglobin A1c % 7.5 %
[2022-06-16 14:03] LABS: Alanine Aminotransferase 40 U/L (0-31); Albumin Level 4.1 g/dL (3.5-5.0); Alkaline Phosphatase 129 U/L (39-117); Anion Gap 18 (12-20); Aspartate Amino Transferase 32 U/L (5-31); Bilirubin Total 0.9 mg/dL (0.0-1.0); Blood Urea Nitrogen 14 mg/dL (9-16); Calcium 8.8 mg/dL (8.4-10.2); Carbon Dioxide 21 mmol/L (22-29); Chloride 104 mmol/L (96-108); Cholesterol 128 mg/dL; Estimated Glomerular Filt Rate > 60; Glucose Fasting 217 mg/dL (60-99); HDL Cholesterol 29 mg/dL; LDL Cholesterol Calculated 49 mg/dl; Sodium 139 mmol/L (135-145); Total Protein 6.7 g/dL (6.5-8.0); Triglycerides 250 mg/dL
[2022-06-16 14:08] LABS: Appearance Urine Turbid; Color Urine Yellow; Glucose Urine UA 100 mg/dL (Negative); Leukocyte Esterase Urine Negative (Negative); Nitrite Urine Negative (Negative); Specific Gravity - Urine 1.015 (1.005-1.025); Urine Blood Negative (Negative); Urine Ketones Negative (Negative); Urine Protein Negative (Neg-Trace)
[2022-06-16 14:13] LABS: Free T4 (Free Thyroxine) 1.24 ng/dL (0.71-1.85); Thyroid Stimulating Hormone 2.55 uIU/mL (0.32-4.0); Vitamin D 25-OH Total 32.8 ng/mL (>30)
[2022-06-16 14:38] LABS: Creatinine Urine 93.95 mg/dL; Microalbumin Urine < 5.0 mg/L
[2022-06-20 15:42] LABS: Glutamic acid decarboxylase Ab 19 IU/mL (<5)
== END 2022-06-16 11:38 | disposition home or self-care (01) ==
LOC: HO.LAB 11:37
PROVIDERS: Absent Provider Internal Medicine; PCP Internal Medicine; Visit Provider Internal Medicine Endocrinology, Diabetes & Metabolism
DX: E78.00 Pure hypercholesterolemia, unspecified (principal); E11.9 Type 2 diabetes mellitus without complications; E03.9 Hypothyroidism, unspecified; E55.9 Vitamin D deficiency, unspecified; I10 Essential (primary) hypertension
CPT/HCPCS: 36415; 80053; 80061; 81003; 82043; 82306; 83036; 84439; 84443; 85025; 86341

== ENCOUNTER → 2022-06-23 10:36 | Outpatient (BNVA) | payer OTHER, SELFPAY | PROVIDERS: PCP Internal Medicine; Visit Provider Registered Nurse Diabetes Educator | DX: E11.9 Type 2 diabetes mellitus without complications (principal) | CPT/HCPCS: 99211 ==

== ENCOUNTER 2022-07-05 09:09 | Outpatient (REF) | payer OTHER, SELFPAY ==
[2022-07-05 09:58] LABS: Glucose Random 175 mg/dL (60-115)
[2022-07-05 10:25] LABS: Insulin 27 uU/mL (2-29)
[2022-07-06 18:12] LABS: C Peptide 4.33 ng/mL (0.80-3.85)
== END 2022-07-05 09:10 | disposition home or self-care (01) ==
LOC: HO.LAB 09:09
PROVIDERS: PCP Internal Medicine; Visit Provider Internal Medicine
DX: E11.9 Type 2 diabetes mellitus without complications (principal)
CPT/HCPCS: 36415; 82947; 83525; 84681

== ENCOUNTER → 2022-08-03 14:15 | Outpatient (BNVA) | payer OTHER, SELFPAY | PROVIDERS: PCP Internal Medicine; Visit Provider Dietitian, Registered | DX: E11.9 Type 2 diabetes mellitus without complications (principal) | CPT/HCPCS: 97803 ==

== ENCOUNTER → 2022-08-22 14:39 | Outpatient (BNVA) | payer OTHER, SELFPAY | PROVIDERS: PCP Internal Medicine; Referring Provider Internal Medicine; Visit Provider Internal Medicine Cardiovascular Disease | DX: I49.8 Other specified cardiac arrhythmias (principal); I10 Essential (primary) hypertension | CPT/HCPCS: 99212 ==

== ENCOUNTER 2022-09-27 11:08 | Outpatient (REF) | payer OTHER, SELFPAY ==
[2022-09-27 11:26] LABS: MANUAL DIFF FLAG NO
[2022-09-27 12:16] LABS: Appearance Urine Clear; Color Urine Yellow; Glucose Urine UA 500 mg/dL (Negative); Leukocyte Esterase Urine Negative (Negative); Nitrite Urine Negative (Negative); Specific Gravity - Urine 1.015 (1.005-1.025); Urine Blood Negative (Negative); Urine Ketones Negative (Negative); Urine Protein Negative (Neg-Trace)
[2022-09-27 12:25] LABS: Estimated Average Glucose 183 mg/dL
[2022-09-27 12:28] LABS: Hemoglobin 11.8 g/dl (12.0-16.0); Imm Gran Abs Auto 0.02 X10*3/uL (0.00-0.03); Imm Gran Pct Auto 0.3 % (0.0-0.4); Lymphocytes Absolute Auto 1.8 X10*3/uL (1.2-4.9); Lymphocytes Percent Auto 27.8 % (20-40); Mean Corpuscular HGB Conc 31.9 g/dl (31.0-35.0); Mean Corpuscular Hemoglobin 27.7 pg (27.0-33.0); Mean Corpuscular Volume 86.9 fL (80.0-98.0); Mean Platelet Volume 10.8 fL (9.4-12.3); Monocytes Absolute Auto 0.5 X10*3/uL (0.1-1.2); Monocytes Percent Auto 7.1 % (2-11); Neutrophils Absolute Auto 4.1 x10*3/uL (2.0-8.3); Neutrophils Percent Auto 64.8 % (45-73); Platelet Count 136 X10*3/uL (160-400); Red Blood Count 4.26 X10*6/uL (4.20-5.50); Red Cell Distribution Width 14.1 % (11.0-16.0); White Blood Count 6.4 X10*3/uL (4.8-10.8)
[2022-09-27 12:49] LABS: Creatinine Urine 40.83 mg/dL; Microalbumin Urine < 5.0 mg/L
[2022-09-27 13:28] LABS: Alanine Aminotransferase 55 U/L (0-31); Albumin Level 4.1 g/dL (3.5-5.0); Alkaline Phosphatase 92 U/L (39-117); Anion Gap 10 (12-20); Aspartate Amino Transferase 32 U/L (5-31); Bilirubin Total 0.8 mg/dL (0.0-1.0); Blood Urea Nitrogen 14 mg/dL (9-16); Calcium 9.2 mg/dL (8.4-10.2); Carbon Dioxide 29 mmol/L (22-29); Chloride 104 mmol/L (96-108); Cholesterol 157 mg/dL; Estimated Glomerular Filt Rate > 60; Glucose Fasting 213 mg/dL (60-99); HDL Cholesterol 42 mg/dL; LDL Cholesterol Calculated 94 mg/dl; Potassium 4.1 mmol/L (3.3-5.1); Sodium 139 mmol/L (135-145); Total Protein 6.6 g/dL (6.5-8.0); Triglycerides 106 mg/dL; Vitamin D 25-OH Total 35.6 ng/mL (>30)
[2022-09-27 13:34] LABS: Folate 7.7 ng/mL (> or = 4.0); Vitamin B12 378 pg/mL (200-900)
== END 2022-09-27 11:09 | disposition home or self-care (01) ==
LOC: HO.LAB 11:08
PROVIDERS: PCP Internal Medicine; Visit Provider Internal Medicine
DX: E11.9 Type 2 diabetes mellitus without complications (principal); I10 Essential (primary) hypertension; E78.00 Pure hypercholesterolemia, unspecified; E55.9 Vitamin D deficiency, unspecified; E53.8 Deficiency of other specified B group vitamins
CPT/HCPCS: 36415; 80053; 80061; 81003; 82043; 82306; 82607; 82746; 83036; 84443; 85025

== ENCOUNTER → 2022-10-06 10:27 | Outpatient (BNVA) | payer OTHER, SELFPAY | PROVIDERS: PCP Internal Medicine; Visit Provider Internal Medicine Endocrinology, Diabetes & Metabolism | DX: E11.9 Type 2 diabetes mellitus without complications (principal); Z79.4 Long term (current) use of insulin | CPT/HCPCS: 82947; 99212 ==

== ENCOUNTER → 2022-11-10 14:03 | Outpatient (BNVA) | payer OTHER, SELFPAY | PROVIDERS: PCP Internal Medicine; Visit Provider Hospitalist | DX: J45.50 Severe persistent asthma, uncomplicated (principal); D80.1 Nonfamilial hypogammaglobulinemia; J98.4 Other disorders of lung; G47.33 Obstructive sleep apnea (adult) (pediatric) | CPT/HCPCS: 99212 ==

== ENCOUNTER 2022-11-23 10:29 | Outpatient (REF) | payer OTHER, SELFPAY ==
--- NOTE | ~2022-11-23 | XR_ITS ---
EXAMINATION: XR CHEST CLINICAL INFORMATION: Difficulty breathing COMPARISON: 02/03/2021 TECHNIQUE: 2 views of the chest were obtained. FINDINGS: Lungs clear. No pleural effusions. Heart and pulmonary vessels normal. No congestive change. Right-sided port observed with its distal tip at the cavoatrial junction. There is spondylitic change in the thoracic spine. There appears to be left lateral pleural thickening. No change. XR/XR chest 2V IMPRESSION: No active disease.
== END 2022-11-23 10:30 | disposition home or self-care (01) ==
LOC: HO.XRAY 10:29
PROVIDERS: PCP Internal Medicine; Visit Provider Hospitalist
DX: J98.4 Other disorders of lung (principal)
CPT/HCPCS: 71046

== ENCOUNTER 2022-12-29 09:06 | Day surgery (SDC) | payer OTHER, SELFPAY ==
--- NOTE | ~2022-12-29 | IR_ITS ---
EXAMINATION: IR PORT CATHETER REMOVAL CLINICAL INFORMATION: Port no longer needed. COMPARISON: 03/31/2020 TECHNIQUE: Right internal jugular port removal. FINDINGS: Informed consent was obtained from the patient prior to the procedure. During this process, the procedure and potential alternatives were explained, along with the intended outcome and benefits. The risks of the procedure, as well as the risk of not doing the procedure, were discussed. The patient was given the opportunity to ask questions regarding the procedure and appeared competent to make medical decisions. A signed consent form which documents this discussion was placed in the medical record. Using sterile technique, following lidocaine administration, an incision was made along the previous right anterior chest wall scar. The port and catheter were then blunt dissected out in their entirety. The port pocket was then closed with a 4-0 Vicryl running suture. Tissue adhesive was then applied to the skin surface. Patient tolerated procedure without difficulty. IR/IR cvc remove tunnel w prt/silverware assembler IMPRESSION: Right internal jugular port catheter removal as described.
[2022-12-29 09:31] LABS: MANUAL DIFF FLAG NO
[2022-12-29 09:39] VITALS: BMI 36.3
[2022-12-29 09:41] LABS: Basophils Percent Auto 0.2 % (0-2); Hematocrit 37.3 % (37.0-47.0); Imm Gran Abs Auto 0.02 X10*3/uL (0.00-0.03); Imm Gran Pct Auto 0.4 % (0.0-0.4); Lymphocytes Absolute Auto 1.6 X10*3/uL (1.2-4.9); Lymphocytes Percent Auto 28.6 % (20-40); Mean Corpuscular HGB Conc 32.2 g/dl (31.0-35.0); Mean Corpuscular Hemoglobin 27.3 pg (27.0-33.0); Mean Corpuscular Volume 84.8 fL (80.0-98.0); Monocytes Absolute Auto 0.5 X10*3/uL (0.1-1.2); Monocytes Percent Auto 9.5 % (2-11); Neutrophils Absolute Auto 3.3 x10*3/uL (2.0-8.3); Neutrophils Percent Auto 61.3 % (45-73); Platelet Count 145 X10*3/uL (160-400); Red Cell Distribution Width 14.2 % (11.0-16.0); White Blood Count 5.5 X10*3/uL (4.8-10.8)
[2022-12-29 09:46] LABS: INTERNATIONAL NORM RATIO 0.9 (0.9-1.1); Prothrombin Time 9.9 SEC (10.0-13.1)
[2022-12-29 09:49] LABS: Partial Thromboplastin Time 27.2 SEC (26.0-36.4)
[2022-12-29] MEDS: diazePAM 5 MG TABLET PO (10:14)
[2022-12-29 10:43] LABS: Anion Gap 15 (12-20); Carbon Dioxide 25 mmol/L (22-29); Chloride 104 mmol/L (96-108); Potassium 4.5 mmol/L (3.3-5.1); Sodium 139 mmol/L (135-145)
--- NOTE | 2022-12-29 10:55 | PC.NURSE ---
see order as per . Toña and patient takes xopenex at home.
[2022-12-29 11:01] LABS: Glucose, Whole Blood 176 mg/dL (60-115)
[2022-12-29 11:07] VITALS: PULSE 86; O2SAT 95
[2022-12-29] MEDS: levalbuterol HCL 1.25 MG/3 ML VIAL.NEB INHALE (11:07)
[2022-12-29 13:15] VITALS: BP 150/73; PULSE 78; RESP 18; TEMP 36.4; O2SAT 98
[2022-12-29 13:30] VITALS: BP 142/85; PULSE 76; RESP 18; O2SAT 98
[2022-12-29 13:45] VITALS: BP 141/82; PULSE 73; RESP 18; O2SAT 99
[2022-12-29 14:00] VITALS: BP 143/72; PULSE 75; RESP 18; TEMP 36.7; O2SAT 98
== END 2022-12-29 14:02 | disposition home or self-care (01) ==
PROVIDERS: PCP Internal Medicine; Visit Provider Radiology Diagnostic Radiology
PROC: (CPT 36590; principal; 2022-12-29 10:30)
DX: Z45.2 Encounter for adjustment and management of vascular access device (principal); Z95.828 Presence of other vascular implants and grafts; D80.1 Nonfamilial hypogammaglobulinemia; M51.36 Other intervertebral disc degeneration, lumbar region; M54.50 Low back pain, unspecified; G89.29 Other chronic pain; M25.552 Pain in left hip; M25.551 Pain in right hip; M16.10 Unilateral primary osteoarthritis, unspecified hip; Z96.641 Presence of right artificial hip joint; J44.9 Chronic obstructive pulmonary disease, unspecified; E03.9 Hypothyroidism, unspecified; J45.50 Severe persistent asthma, uncomplicated; J98.4 Other disorders of lung; I49.8 Other specified cardiac arrhythmias; I10 Essential (primary) hypertension; E78.00 Pure hypercholesterolemia, unspecified; G47.33 Obstructive sleep apnea (adult) (pediatric); G71.3 Mitochondrial myopathy, not elsewhere classified; E66.9 Obesity, unspecified; Z68.38 Body mass index [BMI] 38.0-38.9, adult; E11.9 Type 2 diabetes mellitus without complications; Z79.4 Long term (current) use of insulin; Z79.899 Other long term (current) drug therapy; Z79.1 Long term (current) use of non-steroidal anti-inflammatories (NSAID); Z91.040 Latex allergy status; Z88.2 Allergy status to sulfonamides; Z88.8 Allergy status to other drugs, medicaments and biological substances
CPT/HCPCS: 36415; 36590; 80051; 82947; 85025; 85610; 85730; 94640

== ENCOUNTER 2023-01-02 14:04 | Inpatient (IN) | payer OTHER, SELFPAY ==
--- NOTE | ~2023-01-02 | CT_ITS ---
EXAMINATION: CT CHEST WITHOUT CONTRAST CLINICAL INFORMATION: Status post port removal. Open wound which is draining. COMPARISON: 04/02/2019. Chest radiograph 11/23/2022. TECHNIQUE: Multidetector volumetric CT imaging of the chest was done. Axial MIP volume rendering provided. Sagittal and coronal reformatted images were obtained. This CT examination was performed using dose optimization techniques as appropriate, variously including the following: *Automated exposure control *Adjustment of mA and/or kV according to patient size (this includes techniques or standardized protocols for targeted exams where dose is matched to indication/reason for exam; i.e. extremities or head) *Use of iterative reconstruction technique DLP: 425 mGy-cm FINDINGS: FILM PAINTER: Mild scoliotic curvature of the spine. LUNGS: The central airways are patent. Minimal dependent atelectasis bilaterally. No dense consolidation. No pulmonary nodules identified. MEDIASTINUM: Normal heart size. No pericardial effusion. No mediastinal lymphadenopathy. CORONARY ARTERY CALCIFICATION: Mild. PLEURA: There is no pleural effusion. No pleural mass or thickening. No pneumothorax. AXILLA/CHEST WALL: No axillary lymphadenopathy. Calcifications in the bilateral breast soft tissues. In the right superior anterior chest wall there is a small fluid collection measuring 2.1 x 1.2 x 2.2 cm at the site of prior chest wall port. Mild surrounding inflammatory change. UPPER ABDOMEN: Unremarkable. OSSEOUS STRUCTURES: No acute or suspicious osseous abnormality. Mild degenerative change throughout the spine. CT/CT chest wo IV con IMPRESSION: 1. Small fluid collection in the right anterior chest wall at the site of prior chest wall port. Mild surrounding inflammatory change. 2. No acute pulmonary finding. Fleischner guidelines were followed.
--- NOTE | 2023-01-02 14:13 | ED.WOUNDLAC ---
HPI - Wound/Laceration General Chief Complaint: General Medical <CJ Parker - Last Filed: 01/02/23 14:15> Stated Complaint: open wound <CJ Parker - Last Filed: 01/02/23 14:15> Time Seen by Provider: 01/02/23 18:45 <CJ Parker - Last Filed: 01/02/23 14:15> Source: patient <Julienne Allen NP - Last Filed: 01/03/23 00:43> Mode of arrival: ambulatory <Julienne Allen NP - Last Filed: 01/03/23 00:43> Limitations: no limitations <Julienne Allen NP - Last Filed: 01/03/23 00:43> History of Present Illness HPI narrative: 52-year-old female presents with open right chest wall wound. She had a port removed on 12/29/2022, noted that the wound opened earlier today and a copious amount of drainage came from the site. She is reporting intermittent shortness of breath and some chest tightness, right shoulder pain and tenderness but does not report any fevers, chills, or weakness. She is treated for chronic pain with Dilaudid twice a day, has multiple allergies. <Julienne Allen NP - Last Filed: 01/03/23 00:43> Onset (ago): day(s) <Julienne Allen NP - Last Filed: 01/03/23 00:43> Location: chest <Julienne Allen NP - Last Filed: 01/03/23 00:43> Patient tetanus UTD: Yes <Julienne Allen NP - Last Filed: 01/03/23 00:43> Context: other (Status post port removal) <Julienne Allen NP - Last Filed: 01/03/23 00:43> Associated symptoms: pain <Julienne Allen NP - Last Filed: 01/03/23 00:43> Related Data Home Medications: Home Medications Medication Instructions Recorded Confirmed ipratropium bromide 42 mcg (0.06 2 spray intranasal BID 03/11/21 01/02/23 %) nasal spray immune glob,gamma(IgG) 5 40 g IV Q3W 07/09/21 01/02/23 [id number] 0 to 50 mcg/mL IV solution (Gammagard S-D (IgA < 1 mcg/mL)) benralizumab 30 mg/mL subcutaneous 30 mg subcut Q8W 10/06/22 01/02/23 syringe (Fasenra) atorvastatin 40 mg tablet 40 mg PO BEDTIME 01/02/23 01/02/23 calcium citrate 500 mg PO DAILY 01/02/23 01/02/23 hydromorphone 2 mg tablet 1 tab PO BID 01/02/23 01/02/23 ibuprofen 600 mg tablet 600 mg PO BID PRN for pain 01/02/23 01/02/23 loratadine 10 mg tablet 10 mg PO DAILY 01/02/23 01/02/23 losartan 25 mg tablet 25 mg PO BEDTIME 01/02/23 01/02/23 omeprazole 40 mg capsule,delayed 40 mg PO BEDTIME gastritis 01/02/23 01/02/23 release pyridostigmine bromide 60 mg tablet 60 mg PO TID 01/02/23 01/02/23 tizanidine 2 mg tablet 2 mg PO BEDTIME 01/02/23 01/02/23 Previous Rx's Medication Instructions Recorded lancets 28 gauge (FreeStyle #150 ea 07/28/20 Lancets) ferrous sulfate 325 mg (65 mg 325 mg PO DAILY #90 tabs 12/14/21 iron) tablet (FeroSul) levalbuterol tartrate 45 2 puff inhalation Q6H PRN 01/19/22 mcg/actuation aerosol inhaler shortness of breath or wheezing 30 (Xopenex HFA) days #15 grams Fiasp FlexTouch U-100 Insulin 100 See Rx Instructions subcut 03/17/22 unit/mL (3 mL) subcutaneous pen .COMPLEX 30 days #150 mL (insulin aspart (niacinamide)) metformin 500 mg tablet,extended 1,000 mg PO BID 30 days #120 tabs 03/25/22 release 24 hr DIABETIC SHOES #1 ea 05/30/22 metoprolol succinate 50 mg 50 mg PO DAILY #90 tabs 08/22/22 tablet,extended release 24 hr blood sugar diagnostic (FreeStyle #100 ea 10/06/22 Lite Strips) insulin degludec 100 unit/mL (3 5 unit (0.05 mL) subcut DAILY #15 10/06/22 mL) subcutaneous pen (Tresiba mL FlexTouch U-100 insulin) pen needle, diabetic 33 gauge x #100 ea 10/06/2232 (Easy Comfort [place]) montelukast 10 mg tablet 10 mg PO BEDTIME 90 days #90 tabs 10/24/22 levalbuterol HCl 1.25 mg/3 mL 1.25 mg (3 mL) inhalation BID 30 11/10/22 solution for nebulization days #180 mL Synthroid 112 mcg tablet 224 mcg PO DAILY #60 tabs 11/24/22 (levothyroxine) cholecalciferol (vitamin D3) 50 100 mcg PO DAILY 90 days #180 caps 12/19/22 mcg (2,000 unit) capsule <CJ Parker - Last Filed: 01/02/23 14:15> Allergies/Adverse Reactions: Allergies Allergy/AdvReac Type Severity Reaction Status Date / Time latex [LATEX] Allergy Severe DIFFICULTY Verified 01/02/23 14:13 BREATHING levofloxacin [From LEVAQUIN] Allergy Severe SHORTNESS Verified 01/02/23 14:13 OF BREATH, RASH, rash morphine [MORPHINE] Allergy Severe RASH, Verified 01/02/23 14:13 asthma exacerbation, rash baclofen [BACLOFEN] Allergy Intermediate RASH Verified 01/02/23 14:13 celecoxib [Celebrex] Allergy Intermediate itching, Verified 01/02/23 14:13 rash, flushing prednisone [PREDNISONE] Allergy Intermediate RASH, Verified 01/02/23 14:13 asthma exacerbation, rash sulfamethoxazole Allergy Intermediate vertigo Verified 01/02/23 14:13 [From Bactrim] trimethoprim [From Bactrim] Allergy Intermediate vertigo Verified 01/02/23 14:13 codeine Allergy Unknown Rash Verified 01/02/23 14:13 gluten [GLUTEN] Allergy Unknown UNKNOWN Verified 01/02/23 14:13 oxycodone Allergy Unknown rash Verified 01/02/23 14:13 ranitidine Allergy Unknown unknown Verified 01/02/23 14:13 roflumilast [Daliresp] Allergy Unknown rash Verified 01/02/23 14:13 tramadol [TRAMADOL] Allergy Unknown RASH,SHORTNESS Verified 01/02/23 14:13 OF BREATH AND HEADACHE, asthma exacerbation, rash cephalexin AdvReac Intermediate Difficulty Verified 01/02/23 14:13 Breathing diazepam [From Valium] AdvReac Cough Verified 01/02/23 14:13 celery, pinapple, Allergy Unknown rash Uncoded 01/02/23 14:13 strawberries ENVIROMENTAL Allergy Unknown CLEANING Uncoded 01/02/23 14:13 PRODUCTS CAUSE ASTHMA ATTACK Flexeril Allergy Unknown asthma Uncoded 01/02/23 14:13 exacerbation, rash <CJ Parker - Last Filed: 01/02/23 14:15> Review of Systems Review of Systems: Constitutional: No Fever, No Chills Cardiovascular: Positive right Chest wall Pain, Oz SOB Respiratory: No Cough, positive Dyspnea Gastrointestinal: No Nausea, No Vomiting, No Diarrhea, No abdominal Pain Genitourinary: No Dysuria, No Hematuria Musculoskeletal: positive right shoulder pain, No Myalgias, No Joint Swelling Skin: No Skin lacerations, No rash Neuro: No Weakness, No Numbness, No Paresthesias, No Dizziness, No Headache <Julienne Allen NP - Last Filed: 01/03/23 00:43> Yes all other systems are reviewed and are negative <Julienne Allen NP - Last Filed: 01/03/23 00:43> [facility] Past Medical History Attestation statement: The following information was validated with the patient. <Julienne Allen NP - Last Filed: 01/03/23 00:43> Source: old records reviewed <Julienne Allen NP - Last Filed: 01/03/23 00:43> Medical History: Medical History Acquired hypothyroidism Asthma Asthma Benign essential hypertension Brugada syndrome Cellulitis of both lower extremities Chronic restrictive lung disease Diabetes mellitus Encounter for care related to Port-a-Cath Gastritis History of revision of total replacement of right hip joint (~12/2019) HTN (hypertension) Hx of cataract Hypogammaglobulinemia Hypothyroidism Lumbar degenerative disc disease Mitochondrial myopathy Obesity (BMI 30-39.9) CHARLES (obstructive sleep apnea) Osteoarthritis of hip Osteopenia Pain of both hip joints Pure hypercholesterolemia Recurrent cellulitis of lower extremity Right hip pain Tinea pedis <CJ Parker - Last Filed: 01/02/23 14:15> Surgical History: Surgical History History of elbow surgery (~07/2016) History of eye surgery (~09/2017) History of hip surgery History of removal of cyst History of total right hip arthroplasty (~06/03/19) Hx of appendectomy Hx of bilateral breast reduction surgery Hx of foot surgery (~01/02/19) Hx of hysterectomy (~07/2011) Hx of left knee surgery Hx of thumb surgery <CJ Parker - Last Filed: 01/02/23 14:15> Family History Family History: Family History Father Leukemia Mother Hypertension Diabetes Sister Alive and well Brother Pancreatic cancer Paternal Grandmother Stomach cancer Paternal Grandmother Throat cancer <CJ Parker - Last Filed: 01/02/23 14:15> Social History Social History: Social History Housing: Apartment Alcohol intake: former Patient Tobacco Use Status: Never used Tobacco Smoked in Last 30 Days: No e-Cigarette/Vaping Use: Never Used Second Hand Smoke Exposure: No Use of substances other than those prescribed or required for medical reasons: No Advance Directives: No Advance Directives Information Provided: Yes Patient : No service: No Current occupational status: disabled Cognitive needs: No Hearing needs: No Vision needs: No <CJ Parker - Last Filed: 01/02/23 14:15> Physical Exam Vital Signs: Vital Signs: Last Vital Signs Temp 98.0 F 01/02/23 21:31 Pulse 85 01/02/23 21:31 Resp 16 01/02/23 22:45 BP 174/100 H 01/02/23 21:31 Pulse Ox 95 01/02/23 21:31 O2 Del Method 01/02/23 21:31 BMI result Body Mass Index 37.8 <CJ Parker - Last Filed: 01/02/23 14:15> Vital Signs: Last Vital Signs Temp 98.0 F 01/02/23 21:31 Pulse 85 01/02/23 21:31 Resp 16 01/02/23 22:45 BP 174/100 H 01/02/23 21:31 Pulse Ox 95 01/02/23 21:31 O2 Del Method 01/02/23 21:31 BMI result Body Mass Index 37.8 <Julienne Allen NP - Last Filed: 01/03/23 00:43> Appearance: Alert. Oriented X3. Mild distress. Eyes: Pupils equal, round and reactive to light. Sclera nonicteric. ENT: Pharynx normal. Moist mucous membranes. Neck: Normal inspection. Neck supple. No crepitus. CVS: Normal heart rate and rhythm. Pulses normal. Right chest wall approximately 2 cm surgical incision, open on the medial aspect. Bruising noted radiating 6 cm down from the incision site. Respiratory: No respiratory distress. Breath sounds normal. Skin: Skin warm and dry. Normal skin color. Normal skin turgor. Extremities: No lower extremity edema. Gait balance and coordinated. Neuro: No motor deficit. No sensory deficit. Cranial nerves 2-12 intact <Julienne Allen NP - Last Filed: 01/03/23 00:43> Course Course Course Narrative: This is an RME: Additional HPI, ROS, PE not included below will be deferred to primary provider. 52 year old female history of chronic lung disease, hypothyroidism, hypertension presents with concerns of the site of removal of her Port-A-Cath is open and the glue fell off. Also complaining of atraumatic right shoulder pain with some associated shortness of breath. Got Port-A-Cath removed on 12/29/2022 here at [facility] Physical exam wound is since noted to site of Port-A-Cath in the right anterior chest wall Plan labs, cardiac workup <CJ Parker - Last Filed: 01/02/23 14:15> This is an RME: Additional HPI, ROS, PE not included below will be deferred to primary provider. 52 year old female history of chronic lung disease, hypothyroidism, hypertension presents with concerns of the site of removal of her Port-A-Cath is open and the glue fell off. Also complaining of atraumatic right shoulder pain with some associated shortness of breath. Got Port-A-Cath removed on 12/29/2022 here at [facility] Physical exam wound is since noted to site of Port-A-Cath in the right anterior chest wall Plan labs, cardiac workup 52-year-old female presents for evaluation of a right chest wall port site status post removal. Patient had her port removed on 12/29/2022, and noted that the wound opened earlier today with copious amounts of drainage from the site. Patient has a significant history of Brugada syndrome diabetes, hypogammaglobulinemia, obstructive sleep apnea, asthma, hypothyroidism, hypertension. Workup completed while she was in the emergency department waiting room, indicates a negative white count, and no other significant lab values with the exception of an elevated blood sugar. Will order lactic, blood cultures and wound culture. 18:48 plan of care is for pain medication with possible admission for suspected infection at port removal site. 22:44 CT scan does indicate pocket of fluid with inflammation. Will treat with Zosyn. discussion with hospitalist regarding plan of care to admit for infection at the removed port site. Patient is not septic at this time. <Julienne Allen NP - Last Filed: 01/03/23 00:43> Consultations Consultation #1: Yair <Julienne Allen NP - Last Filed: 01/03/23 00:43> Time: 22:48 <Julienne Allen NP - Last Filed: 01/03/23 00:43> Medications Administered Discontinued Medications Generic Name Dose Route Start Last Admin Trade Name Freq PRN Reason Stop Dose Admin Hydromorphone HCl 2 mg 01/02/23 21:36 01/02/23 22:45 Hydromorphone Hcl 2 Mg Tablet PO 01/02/23 21:37 2 mg ONCE ONE Administration Hydromorphone HCl 1 mg 01/02/23 22:30 01/02/23 22:45 Hydromorphone Hcl 1 Mg/Ml Syringe IVPUSH 01/02/23 22:31 1 mg ONCE ONE Administration Protocol Piperacillin Sod/Tazobactam 50 mls @ 100 mls/hr 01/02/23 21:38 01/02/23 23:19 Sod 3.375 gm/ Sodium Chloride IV 01/02/23 22:07 100 mls/hr ONCE ONE Administration <CJ Parker - Last Filed: 01/02/23 14:15> Medications Administered Discontinued Medications Generic Name Dose Route Start Last Admin Trade Name Freq PRN Reason Stop Dose Admin Hydromorphone HCl 2 mg 01/02/23 21:36 01/02/23 22:45 Hydromorphone Hcl 2 Mg Tablet PO 01/02/23 21:37 2 mg ONCE ONE Administration Hydromorphone HCl 1 mg 01/02/23 22:30 01/02/23 22:45 Hydromorphone Hcl 1 Mg/Ml Syringe IVPUSH 01/02/23 22:31 1 mg ONCE ONE Administration Protocol Piperacillin Sod/Tazobactam 50 mls @ 100 mls/hr 01/02/23 21:38 01/02/23 23:19 Sod 3.375 gm/ Sodium Chloride IV 01/02/23 22:07 100 mls/hr ONCE ONE Administration <Julienne Allen NP - Last Filed: 01/03/23 00:43> Medical Decision Making Differential Diagnosis Differential Diagnoses: The differential diagnosis associated with the presentation includes <Julienne Allen NP - Last Filed: 01/03/23 00:43> Abscess, infection <Julienne Allen NP - Last Filed: 01/03/23 00:43> Admission/Observation Consideration of admission/observation: Escalation of care including admission/observation considered <Julienne Allen NP - Last Filed: 01/03/23 00:43> Plan of care is to admit for IV antibiotics <Julienne Allen NP - Last Filed: 01/03/23 00:43> Consult Healthcare Provider Management of the patient was discussed with: Hospitalist <Julienne Allen NP - Last Filed: 01/03/23 00:43> Lab Data MDM Lab Attestation statement: I reviewed the patient's lab results. <Julienne Allen NP - Last Filed: 01/03/23 00:43> Result Diagrams: 01/02/23 14:55 01/02/23 14:55 <CJ Parker - Last Filed: 01/02/23 14:15> Labs: Lab Results 01/02/23 01/02/23 01/02/23 Range/Units 14:55 14:55 14:55 WBC 6.3 (4.8-10.8) X10*3/uL RBC 4.41 (4.20-5.50) X10*6/uL Hgb 12.0 (12.0-16.0) g/dl Hct 36.5 L (37.0-47.0) % MCV 82.8 (80.0-98.0) fL MCH 27.2 (27.0-33.0) pg MCHC 32.9 (31.0-35.0) g/dl RDW 14.1 (11.0-16.0) % Plt Count 146 L (160-400) X10*3/uL MPV 10.9 (9.4-12.3) fL Immature Gran % (Auto) 0.3 (0.0-0.4) % Neut % (Auto) 64.8 (45-73) % Lymph % (Auto) 26.6 (20-40) % [place] % (Auto) 7.9 (2-11) % Eos % (Auto) 0.2 (0-4) % Baso % (Auto) 0.2 (0-2) % Lymph # (Auto) 1.7 (1.2-4.9) X10*3/uL [place] # (Auto) 0.5 (0.1-1.2) X10*3/uL Eos # (Auto) 0.0 (0.0-0.4) X10*3/uL Baso # (Auto) 0.0 (0.0-0.2) X10*3/uL Abs Immat Gran (auto) 0.02 (0.00-0.03) X10*3/uL Absolute Neuts (auto) 4.1 (2.0-8.3) x10*3/uL Absolute Nucleated RBC 0.000 (0.0-0.012) X10*3/uL Nucleated RBC % (auto) 0.0 (0.0-0.2) /100WBC PT (10.0-13.1) SEC INR (0.9-1.1) APTT (26.0-36.4) SEC D-Dimer High Sensitivty NG/ML Sodium 139 (135-145) mmol/L Potassium 4.2 (3.3-5.1) mmol/L Chloride 104 (96-108) mmol/L Carbon Dioxide 21 L (22-29) mmol/L Anion Gap 18 (12-20) BUN 15 (9-16) mg/dL Creatinine 0.85 (0.5-1.4) mg/dL Estim Creat Clear Calc 88.0 Estimated GFR > 60 Random Glucose 204 H (60-115) mg/dL Lactic Acid (0.5-2.0) mmol/L Calcium 9.5 (8.4-10.2) mg/dL Total Bilirubin 1.2 H (0.0-1.0) mg/dL AST 36 H (5-31) U/L ALT 61 H (0-31) U/L Alkaline Phosphatase 94 (39-117) U/L Troponin I High Sens 4.7 (<3.5-17.0) ng/L B-Natriuretic Peptide (<100) pg/mL Total Protein 6.7 (6.5-8.0) g/dL Albumin 4.0 (3.5-5.0) g/dL Urine Color Urine Appearance Urine pH (5.0-9.0) Ur Specific Strong (1.005-1.025) Urine Protein (Neg-Trace) mg/dL Urine Glucose (UA) (Negative) mg/dL Urine Ketones (Negative) mg/dL Urine Blood (Negative) Urine Nitrite (Negative) Ur Leukocyte Esterase (Negative) 01/02/23 01/02/23 01/02/23 Range/Units 14:55 19:34 19:34 WBC (4.8-10.8) X10*3/uL RBC (4.20-5.50) X10*6/uL Hgb (12.0-16.0) g/dl Hct (37.0-47.0) % MCV (80.0-98.0) fL MCH (27.0-33.0) pg MCHC (31.0-35.0) g/dl RDW (11.0-16.0) % Plt Count (160-400) X10*3/uL MPV (9.4-12.3) fL Immature Gran % (Auto) (0.0-0.4) % Neut % (Auto) (45-73) % Lymph % (Auto) (20-40) % [place] % (Auto) (2-11) % Eos % (Auto) (0-4) % Baso % (Auto) (0-2) % Lymph # (Auto) (1.2-4.9) X10*3/uL [place] # (Auto) (0.1-1.2) X10*3/uL Eos # (Auto) (0.0-0.4) X10*3/uL Baso # (Auto) (0.0-0.2) X10*3/uL Abs Immat Gran (auto) (0.00-0.03) X10*3/uL Absolute Neuts (auto) (2.0-8.3) x10*3/uL Absolute Nucleated RBC (0.0-0.012) X10*3/uL Nucleated RBC % (auto) (0.0-0.2) /100WBC PT 10.9 (10.0-13.1) SEC INR 1.0 (0.9-1.1) APTT 27.5 (26.0-36.4) SEC D-Dimer High Sensitivty 155 NG/ML Sodium (135-145) mmol/L Potassium (3.3-5.1) mmol/L Chloride (96-108) mmol/L Carbon Dioxide (22-29) mmol/L Anion Gap (12-20) BUN (9-16) mg/dL Creatinine (0.5-1.4) mg/dL Estim Creat Clear Calc Estimated GFR Random Glucose (60-115) mg/dL Lactic Acid (0.5-2.0) mmol/L Calcium (8.4-10.2) mg/dL Total Bilirubin (0.0-1.0) mg/dL AST (5-31) U/L ALT (0-31) U/L Alkaline Phosphatase (39-117) U/L Troponin I High Sens (<3.5-17.0) ng/L B-Natriuretic Peptide 16 (<100) pg/mL Total Protein (6.5-8.0) g/dL Albumin (3.5-5.0) g/dL Urine Color Urine Appearance Urine pH (5.0-9.0) Ur Specific Strong (1.005-1.025) Urine Protein (Neg-Trace) mg/dL Urine Glucose (UA) (Negative) mg/dL Urine Ketones (Negative) mg/dL Urine Blood (Negative) Urine Nitrite (Negative) Ur Leukocyte Esterase (Negative) 01/02/23 01/02/23 Range/Units 20:11 23:07 WBC (4.8-10.8) X10*3/uL RBC (4.20-5.50) X10*6/uL Hgb (12.0-16.0) g/dl Hct (37.0-47.0) % MCV (80.0-98.0) fL MCH (27.0-33.0) pg MCHC (31.0-35.0) g/dl RDW (11.0-16.0) % Plt Count (160-400) X10*3/uL MPV (9.4-12.3) fL Immature Gran % (Auto) (0.0-0.4) % Neut % (Auto) (45-73) % Lymph % (Auto) (20-40) % Stoddard % (Auto) (2-11) % Eos % (Auto) (0-4) % Baso % (Auto) (0-2) % Lymph # (Auto) (1.2-4.9) X10*3/uL [place] # (Auto) (0.1-1.2) X10*3/uL Eos # (Auto) (0.0-0.4) X10*3/uL Baso # (Auto) (0.0-0.2) X10*3/uL Abs Immat Gran (auto) (0.00-0.03) X10*3/uL Absolute Neuts (auto) (2.0-8.3) x10*3/uL Absolute Nucleated RBC (0.0-0.012) X10*3/uL Nucleated RBC % (auto) (0.0-0.2) /100WBC PT (10.0-13.1) SEC INR (0.9-1.1) APTT (26.0-36.4) SEC D-Dimer High Sensitivty NG/ML Sodium (135-145) mmol/L Potassium (3.3-5.1) mmol/L Chloride (96-108) mmol/L Carbon Dioxide (22-29) mmol/L Anion Gap (12-20) BUN (9-16) mg/dL Creatinine (0.5-1.4) mg/dL Estim Creat Clear Calc Estimated GFR Random Glucose (60-115) mg/dL Lactic Acid 1.1 (0.5-2.0) mmol/L Calcium (8.4-10.2) mg/dL Total Bilirubin (0.0-1.0) mg/dL AST (5-31) U/L ALT (0-31) U/L Alkaline Phosphatase (39-117) U/L Troponin I High Sens (<3.5-17.0) ng/L B-Natriuretic Peptide (<100) pg/mL Total Protein (6.5-8.0) g/dL Albumin (3.5-5.0) g/dL Urine Color Yellow Urine Appearance Clear Urine pH 5.5 (5.0-9.0) Ur Specific Strong 1.010 (1.005-1.025) Urine Protein Negative (Neg-Trace) mg/dL Urine Glucose (UA) Negative (Negative) mg/dL Urine Ketones Negative (Negative) mg/dL Urine Blood Negative (Negative) Urine Nitrite Negative (Negative) Ur Leukocyte Esterase Negative (Negative) <CJ Parker - Last Filed: 01/02/23 14:15> Lab Results 01/02/23 01/02/23 01/02/23 Range/Units 14:55 14:55 14:55 WBC 6.3 (4.8-10.8) X10*3/uL RBC 4.41 (4.20-5.50) X10*6/uL Hgb 12.0 (12.0-16.0) g/dl Hct 36.5 L (37.0-47.0) % MCV 82.8 (80.0-98.0) fL MCH 27.2 (27.0-33.0) pg MCHC 32.9 (31.0-35.0) g/dl RDW 14.1 (11.0-16.0) % Plt Count 146 L (160-400) X10*3/uL MPV 10.9 (9.4-12.3) fL Immature Gran % (Auto) 0.3 (0.0-0.4) % Neut % (Auto) 64.8 (45-73) % Lymph % (Auto) 26.6 (20-40) % Stoddard % (Auto) 7.9 (2-11) % Eos % (Auto) 0.2 (0-4) % Baso % (Auto) 0.2 (0-2) % Lymph # (Auto) 1.7 (1.2-4.9) X10*3/uL Stoddard # (Auto) 0.5 (0.1-1.2) X10*3/uL Eos # (Auto) 0.0 (0.0-0.4) X10*3/uL Baso # (Auto) 0.0 (0.0-0.2) X10*3/uL Abs Immat Gran (auto) 0.02 (0.00-0.03) X10*3/uL Absolute Neuts (auto) 4.1 (2.0-8.3) x10*3/uL Absolute Nucleated RBC 0.000 (0.0-0.012) X10*3/uL Nucleated RBC % (auto) 0.0 (0.0-0.2) /100WBC PT (10.0-13.1) SEC INR (0.9-1.1) APTT (26.0-36.4) SEC D-Dimer High Sensitivty NG/ML Sodium 139 (135-145) mmol/L Potassium 4.2 (3.3-5.1) mmol/L Chloride 104 (96-108) mmol/L Carbon Dioxide 21 L (22-29) mmol/L Anion Gap 18 (12-20) BUN 15 (9-16) mg/dL Creatinine 0.85 (0.5-1.4) mg/dL Estim Creat Clear Calc 88.0 Estimated GFR > 60 Random Glucose 204 H (60-115) mg/dL Lactic Acid (0.5-2.0) mmol/L Calcium 9.5 (8.4-10.2) mg/dL Total Bilirubin 1.2 H (0.0-1.0) mg/dL AST 36 H (5-31) U/L ALT 61 H (0-31) U/L Alkaline Phosphatase 94 (39-117) U/L Troponin I High Sens 4.7 (<3.5-17.0) ng/L B-Natriuretic Peptide (<100) pg/mL Total Protein 6.7 (6.5-8.0) g/dL Albumin 4.0 (3.5-5.0) g/dL Urine Color Urine Appearance Urine pH (5.0-9.0) Ur Specific Strong (1.005-1.025) Urine Protein (Neg-Trace) mg/dL Urine Glucose (UA) (Negative) mg/dL Urine Ketones (Negative) mg/dL Urine Blood (Negative) Urine Nitrite (Negative) Ur Leukocyte Esterase (Negative) 01/02/23 01/02/23 01/02/23 Range/Units 14:55 19:34 19:34 WBC (4.8-10.8) X10*3/uL RBC (4.20-5.50) X10*6/uL Hgb (12.0-16.0) g/dl Hct (37.0-47.0) % MCV (80.0-98.0) fL MCH (27.0-33.0) pg MCHC (31.0-35.0) g/dl RDW (11.0-16.0) % Plt Count (160-400) X10*3/uL MPV (9.4-12.3) fL Immature Gran % (Auto) (0.0-0.4) % Neut % (Auto) (45-73) % Lymph % (Auto) (20-40) % [place]odd[place] % (Auto) (2-11) % Eos % (Auto) (0-4) % Baso % (Auto) (0-2) % Lymph # (Auto) (1.2-4.9) X10*3/uL [place]odd[place] # (Auto) (0.1-1.2) X10*3/uL Eos # (Auto) (0.0-0.4) X10*3/uL Baso # (Auto) (0.0-0.2) X10*3/uL Abs Immat Gran (auto) (0.00-0.03) X10*3/uL Absolute Neuts (auto) (2.0-8.3) x10*3/uL Absolute Nucleated RBC (0.0-0.012) X10*3/uL Nucleated RBC % (auto) (0.0-0.2) /100WBC PT 10.9 (10.0-13.1) SEC INR 1.0 (0.9-1.1) APTT 27.5 (26.0-36.4) SEC D-Dimer High Sensitivty 155 NG/ML Sodium (135-145) mmol/L Potassium (3.3-5.1) mmol/L Chloride (96-108) mmol/L Carbon Dioxide (22-29) mmol/L Anion Gap (12-20) BUN (9-16) mg/dL Creatinine (0.5-1.4) mg/dL Estim Creat Clear Calc Estimated GFR Random Glucose (60-115) mg/dL Lactic Acid (0.5-2.0) mmol/L Calcium (8.4-10.2) mg/dL Total Bilirubin (0.0-1.0) mg/dL AST (5-31) U/L ALT (0-31) U/L Alkaline Phosphatase (39-117) U/L Troponin I High Sens (<3.5-17.0) ng/L B-Natriuretic Peptide 16 (<100) pg/mL Total Protein (6.5-8.0) g/dL Albumin (3.5-5.0) g/dL Urine Color Urine Appearance Urine pH (5.0-9.0) Ur Specific Strong (1.005-1.025) Urine Protein (Neg-Trace) mg/dL Urine Glucose (UA) (Negative) mg/dL Urine Ketones (Negative) mg/dL Urine Blood (Negative) Urine Nitrite (Negative) Ur Leukocyte Esterase (Negative) 01/02/23 01/02/23 Range/Units 20:11 23:07 WBC (4.8-10.8) X10*3/uL RBC (4.20-5.50) X10*6/uL Hgb (12.0-16.0) g/dl Hct (37.0-47.0) % MCV (80.0-98.0) fL MCH (27.0-33.0) pg MCHC (31.0-35.0) g/dl RDW (11.0-16.0) % Plt Count (160-400) X10*3/uL MPV (9.4-12.3) fL Immature Gran % (Auto) (0.0-0.4) % Neut % (Auto) (45-73) % Lymph % (Auto) (20-40) % [place]ard % (Auto) (2-11) % Eos % (Auto) (0-4) % Baso % (Auto) (0-2) % Lymph # (Auto) (1.2-4.9) X10*3/uL [place]ard # (Auto) (0.1-1.2) X10*3/uL Eos # (Auto) (0.0-0.4) X10*3/uL Baso # (Auto) (0.0-0.2) X10*3/uL Abs Immat Gran (auto) (0.00-0.03) X10*3/uL Absolute Neuts (auto) (2.0-8.3) x10*3/uL Absolute Nucleated RBC (0.0-0.012) X10*3/uL Nucleated RBC % (auto) (0.0-0.2) /100WBC PT (10.0-13.1) SEC INR (0.9-1.1) APTT (26.0-36.4) SEC D-Dimer High Sensitivty NG/ML Sodium (135-145) mmol/L Potassium (3.3-5.1) mmol/L Chloride (96-108) mmol/L Carbon Dioxide (22-29) mmol/L Anion Gap (12-20) BUN (9-16) mg/dL Creatinine (0.5-1.4) mg/dL Estim Creat Clear Calc Estimated GFR Random Glucose (60-115) mg/dL Lactic Acid 1.1 (0.5-2.0) mmol/L Calcium (8.4-10.2) mg/dL Total Bilirubin (0.0-1.0) mg/dL AST (5-31) U/L ALT (0-31) U/L Alkaline Phosphatase (39-117) U/L Troponin I High Sens (<3.5-17.0) ng/L B-Natriuretic Peptide (<100) pg/mL Total Protein (6.5-8.0) g/dL Albumin (3.5-5.0) g/dL Urine Color Yellow Urine Appearance Clear Urine pH 5.5 (5.0-9.0) Ur Specific Strong 1.010 (1.005-1.025) Urine Protein Negative (Neg-Trace) mg/dL Urine Glucose (UA) Negative (Negative) mg/dL Urine Ketones Negative (Negative) mg/dL Urine Blood Negative (Negative) Urine Nitrite Negative (Negative) Ur Leukocyte Esterase Negative (Negative) <Julienne Allen NP - Last Filed: 01/03/23 00:43> Independent Interpretation I performed an independent interpretation of an: EKG and CT Scan <Julienne Allen NP - Last Filed: 01/03/23 00:43> Interpretation: Normal sinus rhythm Right bundle branch block Minimal voltage criteria for LVH, may be normal variant ( R in aVL ) Abnormal ECG When compared with ECG of 03-FEB-2021 17:15, QT has shortened Vent. rate 70 BPM AL interval 144 ms QRS duration 152 ms QT/QTc 412/444 ms P-R-T axes 02-Jan-2023 15:01:42 <Julienne lAlen NP - Last Filed: 01/03/23 00:43> Radiology Impression Discussion of test interpretation with radiology: I have reviewed the radiologist's reading. <Julienne Allen NP - Last Filed: 01/03/23 00:43> Radiologist Impression: FINDINGS: LIFE SCIENTISTS: Mild scoliotic curvature of the spine. LUNGS: The central airways are patent. Minimal dependent atelectasis bilaterally. No dense consolidation. No pulmonary nodules identified.? MEDIASTINUM: Normal heart size. No pericardial effusion. No mediastinal lymphadenopathy.? CORONARY ARTERY CALCIFICATION: Mild. PLEURA: There is no pleural effusion. No pleural mass or thickening. No pneumothorax. AXILLA/CHEST WALL: No axillary lymphadenopathy. Calcifications in the bilateral breast soft tissues. In the right superior anterior chest wall there is a small fluid collection measuring 2.1 x 1.2 x 2.2 cm at the site of prior chest wall port. Mild surrounding inflammatory change.? UPPER ABDOMEN: Unremarkable.? OSSEOUS STRUCTURES: No acute or suspicious osseous abnormality. Mild degenerative change throughout the spine.? CT/CT chest wo IV con IMPRESSION: 1.? Small fluid collection in the right anterior chest wall at the site of prior chest wall port. Mild surrounding inflammatory change. 2.? No acute pulmonary finding. ? Fleischner guidelines were followed. <Julienne Allen NP - Last Filed: 01/03/23 00:43> External Record Review External record reviewed: Outpatient record, Prior outpatient labs and Prior outpatient radiology <Julienne Allen NP - Last Filed: 01/03/23 00:43> Prescription Management I considered prescription management with: Pain Medication and Antibiotic <Julienne Allen NP - Last Filed: 01/03/23 00:43> Chronic Conditions Patient?s care impacted by: Diabetes, Hypertension and Other (brugada syndrome) <Julienne Allen NP - Last Filed: 01/03/23 00:43> Discharge Plan Discharge Clinical Impression: Shortness of breath, History of removal of Port-a-Cath, Incisional infection, Acute chest wall pain <CJ Parker - Last Filed: 01/02/23 14:15> Patient Disposition: Admitted As Inpatient <JC Parker - Last Filed: 01/02/23 14:15>
[2023-01-02 14:14] VITALS: BP 150/78; PULSE 83; RESP 17; TEMP 36.6; O2SAT 96; BMI 37.8
--- NOTE | 2023-01-02 14:15 | ECG_ITS ---
Test Reason : cp Blood Pressure : / mmHG Vent. Rate : 070 BPM Atrial Rate : 070 BPM P-R Int : 144 ms QRS Dur : 152 ms QT Int : 412 ms P-R-T Axes : 029 -24 001 degrees QTc Int : 444 ms Normal sinus rhythm Right bundle branch block Minimal voltage criteria for LVH, may be normal variant ( R in aVL ) Abnormal ECG When compared with ECG of 03-FEB-2021 17:15, QT has shortened Referred By: Wil Suarez Electronically Signed By:DENILSON MUNOZ MD
[2023-01-02 14:59] LABS: MANUAL DIFF FLAG NO
[2023-01-02 15:02] LABS: Basophils Percent Auto 0.2 % (0-2); Eosinophils Percent Auto 0.2 % (0-4); Hematocrit 36.5 % (37.0-47.0); Imm Gran Abs Auto 0.02 X10*3/uL (0.00-0.03); Imm Gran Pct Auto 0.3 % (0.0-0.4); Lymphocytes Absolute Auto 1.7 X10*3/uL (1.2-4.9); Lymphocytes Percent Auto 26.6 % (20-40); Mean Corpuscular HGB Conc 32.9 g/dl (31.0-35.0); Mean Corpuscular Hemoglobin 27.2 pg (27.0-33.0); Mean Corpuscular Volume 82.8 fL (80.0-98.0); Mean Platelet Volume 10.9 fL (9.4-12.3); Monocytes Absolute Auto 0.5 X10*3/uL (0.1-1.2); Monocytes Percent Auto 7.9 % (2-11); Neutrophils Absolute Auto 4.1 x10*3/uL (2.0-8.3); Neutrophils Percent Auto 64.8 % (45-73); Platelet Count 146 X10*3/uL (160-400); Red Blood Count 4.41 X10*6/uL (4.20-5.50); Red Cell Distribution Width 14.1 % (11.0-16.0); White Blood Count 6.3 X10*3/uL (4.8-10.8)
[2023-01-02 15:23] LABS: Alanine Aminotransferase 61 U/L (0-31); Alkaline Phosphatase 94 U/L (39-117); Anion Gap 18 (12-20); Aspartate Amino Transferase 36 U/L (5-31); Bilirubin Total 1.2 mg/dL (0.0-1.0); Blood Urea Nitrogen 15 mg/dL (9-16); Calcium 9.5 mg/dL (8.4-10.2); Carbon Dioxide 21 mmol/L (22-29); Chloride 104 mmol/L (96-108); Estimated Glomerular Filt Rate > 60; Glucose Random 204 mg/dL (60-115); Potassium 4.2 mmol/L (3.3-5.1); Sodium 139 mmol/L (135-145); Total Protein 6.7 g/dL (6.5-8.0)
[2023-01-02 15:30] LABS: Troponin-I High Sensitivity 4.7 ng/L (<3.5-17.0)
[2023-01-02 15:39] LABS: B Type Natriuretic Peptide 16 pg/mL (<100)
[2023-01-02 18:00] VITALS: BP 159/76; PULSE 84; RESP 16; TEMP 36.9; O2SAT 97
[2023-01-02 19:46] LABS: Prothrombin Time 10.9 SEC (10.0-13.1)
[2023-01-02 19:48] LABS: D Dimer High Sensitivity 155 NG/ML
[2023-01-02 19:49] LABS: Partial Thromboplastin Time 27.5 SEC (26.0-36.4)
--- NOTE | 2023-01-02 20:12 | PC.NURSE ---
Patient alert and oriented. Vitals obtained and assessments completed. Patient reports glue from port removal surgical fell off. This RN noted a scant amount of seriosang drainage and mild rednesses at incision site.
[2023-01-02 20:27] LABS: Appearance Urine Clear; Color Urine Yellow; Glucose Urine UA Negative (Negative); Leukocyte Esterase Urine Negative (Negative); Nitrite Urine Negative (Negative); PH 5.5 (5.0-9.0); Urine Blood Negative (Negative); Urine Ketones Negative (Negative); Urine Protein Negative (Neg-Trace)
[2023-01-02 21:31] VITALS: BP 174/100; PULSE 85; RESP 16; TEMP 36.7; O2SAT 95
--- NOTE | 2023-01-02 22:24 | PHA.MEDREC ---
Pharmacy Consult ? Medication Reconciliation Pharmacy has completed the medication reconciliation. Patient was a great historian, was able to name all medications, doses and explain how she takes them. A lot of medications are not as prescribed, I changed directions to reflect how the patient takes them at home. However, patient did mention she rarely takes her fiasp or tresiba and takes 1-4 tablets of her metformin a day based off her sugars, it is prescribed as 2 tablets BID. I did leave the diabetic medications as prescribed in her med reconciliation. Provider was contacted.
[2023-01-02 22:45] VITALS: RESP 16
[2023-01-02] MEDS: HYDROmorphone HCl 2 MG TABLET PO (22:45)
[2023-01-02] MEDS: HYDROmorphone HCl 1 MG/ML SYRINGE IVPUSH (22:45)
[2023-01-02] MEDS: Piperacillin Sodium/Tazobactam 3.375 GM in 0.9 % Sodium Chloride 50 ML IV (23:19)
[2023-01-02 23:40] LABS: Lactic Acid 1.1 mmol/L (0.5-2.0)
[2023-01-03] MEDS: cefEPime HCl 2 GM in 0.9 % Sodium Chloride 50 ML IV (01:15)
[2023-01-03] MEDS: Ibuprofen 600 MG TABLET PO ×3 (01:27→21:38)
[2023-01-03 02:33] LABS: COVID-19 Test Negative (Negative); IDNOW Serial# BCCEAD1C
[2023-01-03 03:21] VITALS: BP 151/78; PULSE 67; RESP 20; O2SAT 97
[2023-01-03 04:00] VITALS: BP 150/80; PULSE 62; RESP 16; TEMP 36; O2SAT 95
[2023-01-03] MEDS: Acetaminophen 325 MG TABLET 650 MG PO ×2 (04:19→15:24)
--- NOTE | 2023-01-03 04:35 | PC.NURSE ---
Nurse to Nurse report given to s3. Patient to be transported to the floor by the air technician.
--- NOTE | 2023-01-03 05:57 | PM.IMHP ---
History of Present Illness Date of Service: 01/03/23 Chief Complaint: draining port site this is a 52-year-old female with past medical history hypothyroidism, asthma, HTN, Brugada syndrome, chronic restrictive lung disease, diabetes, gastritis, hypogammaglobulinemia, scoliosis, mitochondrial myopathy, HLD, who presents to the hospital with complaints of Port-A-Cath site drainage. Patient reports that she has a chronic port for IVIG infusions. She states that the port was removed on 12/29, the removal was slightly complicated as the port had to be taken out due to malposition. She has had that port for 3 years. She reports that the doctor that removed it had to tug and was difficult to remove. She states that glue was used to stitch the insertion site, when the glue came off today she noticed that the wound was draining. She states that the draining was clear, not serosanguineous. She did not notice any pus. But reports that there is pain at the site, slight redness, as well as shoulder and right arm pain. She denies having any fever or chills. No chest pain, no shortness of breath, no abdominal pain nausea or vomiting, no diarrhea constipation, urinary symptoms and no lower extremity edema. On arrival to the ED patient hemodynamically stable with no significant abnormal vitals labs are significant for WBC count of 6.3, otherwise unremarkable, CT of the chest shows fluid collection in the right anterior chest wall at the site of prior chest wall port, mild surrounding inflammatory change patient started on IV antibiotics and will be admitted for further management PMFSH Medical History Acquired hypothyroidism Asthma Asthma Benign essential hypertension Brugada syndrome Cellulitis of both lower extremities Chronic restrictive lung disease Diabetes mellitus Encounter for care related to Port-a-Cath Gastritis History of revision of total replacement of right hip joint (~12/2019) HTN (hypertension) Hx of cataract Hypogammaglobulinemia Hypothyroidism Lumbar degenerative disc disease Mitochondrial myopathy Obesity (BMI 30-39.9) CHARLES (obstructive sleep apnea) Osteoarthritis of hip Osteopenia Pain of both hip joints Pure hypercholesterolemia Recurrent cellulitis of lower extremity Right hip pain Tinea pedis Family History Father Leukemia Mother Hypertension Diabetes Sister Alive and well Brother Pancreatic cancer Paternal Grandmother Stomach cancer Paternal Grandmother Throat cancer Surgical History History of elbow surgery (~07/2016) History of eye surgery (~09/2017) History of hip surgery History of removal of cyst History of total right hip arthroplasty (~06/03/19) Hx of appendectomy Hx of bilateral breast reduction surgery Hx of foot surgery (~01/02/19) Hx of hysterectomy (~07/2011) Hx of left knee surgery Hx of thumb surgery Social History Housing: Apartment Alcohol intake: former Patient Tobacco Use Status: Never used Tobacco Smoked in Last 30 Days: No e-Cigarette/Vaping Use: Never Used Second Hand Smoke Exposure: No Use of substances other than those prescribed or required for medical reasons: No Advance Directives: No Advance Directives Information Provided: Yes Nutrition Risks: No Nutritional Risk Patient : No service: No Current occupational status: disabled Cognitive needs: No Hearing needs: No Vision needs: No Meds Allergies Allergy/AdvReac Type Severity Reaction Status Date / Time latex [LATEX] Allergy Severe DIFFICULTY Verified 01/02/23 14:13 BREATHING levofloxacin [From LEVAQUIN] Allergy Severe SHORTNESS Verified 01/02/23 14:13 OF BREATH, RASH, rash morphine [MORPHINE] Allergy Severe RASH, Verified 01/02/23 14:13 asthma exacerbation, rash baclofen [BACLOFEN] Allergy Intermediate RASH Verified 01/02/23 14:13 celecoxib [Celebrex] Allergy Intermediate itching, Verified 01/02/23 14:13 rash, flushing prednisone [PREDNISONE] Allergy Intermediate RASH, Verified 01/02/23 14:13 asthma exacerbation, rash sulfamethoxazole Allergy Intermediate vertigo Verified 01/02/23 14:13 [From Bactrim] trimethoprim [From Bactrim] Allergy Intermediate vertigo Verified 01/02/23 14:13 codeine Allergy Unknown Rash Verified 01/02/23 14:13 gluten [GLUTEN] Allergy Unknown UNKNOWN Verified 01/02/23 14:13 oxycodone Allergy Unknown rash Verified 01/02/23 14:13 ranitidine Allergy Unknown unknown Verified 01/02/23 14:13 roflumilast [Daliresp] Allergy Unknown rash Verified 01/02/23 14:13 tramadol [TRAMADOL] Allergy Unknown RASH,SHORTNESS Verified 01/02/23 14:13 OF BREATH AND HEADACHE, asthma exacerbation, rash cephalexin AdvReac Intermediate Difficulty Verified 01/02/23 14:13 Breathing diazepam [From Valium] AdvReac Cough Verified 01/02/23 14:13 celery, pinapple, Allergy Unknown rash Uncoded 01/02/23 14:13 strawberries ENVIROMENTAL Allergy Unknown CLEANING Uncoded 01/02/23 14:13 PRODUCTS CAUSE ASTHMA ATTACK Flexeril Allergy Unknown asthma Uncoded 01/02/23 14:13 exacerbation, rash Active Medications: Current Medications Acetaminophen (Acetaminophen 325 Mg Tablet) 650 mg PO Q6H PRN PRN Reason: Pain, Mild (Pain Scale 1-3) Last Admin: 01/03/23 04:19 Dose: 650 mg Albuterol Sulfate (Albuterol Sulfate (0.083%) 2.5 Mg/3 Ml Vial.Neb) 2.5 mg INHALE BID [facility] Albuterol Sulfate (Albuterol Sulfate 90 Mcg 8 Gm Inhaler) 2 puff INHALE Q6H PRN PRN Reason: shortness of breath or wheezing Atorvastatin Calcium (Atorvastatin Calcium 40 Mg Tablet) 40 mg PO BEDTIME [facility] Calcium Carbonate (Calcium Carbonate 500 Mg Tablet) 500 mg PO DAILY [facility] Docusate Sodium (Docusate Sodium 100 Mg Capsule) 100 mg PO DAILY PRN PRN Reason: Constipation Ferrous Sulfate (Ferrous Sulfate 324 Mg Tablet.Dr) 324 mg PO DAILY [facility] Glucose (Glucose Gel 15 Gm Gel..Gram.) 15 gm PO Q15M PRN; Protocol PRN Reason: per Hypoglycemia Standing Ord. Hydromorphone HCl (Hydromorphone Hcl 2 Mg Tablet) 2 mg PO BID [facility] Cefepime HCl 2 gm/ Sodium (Chloride) 50 mls @ 100 mls/hr IV Q8H [facility] Last Infusion: 01/03/23 04:12 Dose: Infused Dextrose (D10) 250 mls @ 750 mls/hr IV Q15M PRN; Protocol PRN Reason: per Hypoglycemia Standing Ord. Ibuprofen (Ibuprofen 600 Mg Tablet) 600 mg PO BID PRN PRN Reason: for pain Last Admin: 01/03/23 01:27 Dose: 600 mg Insulin Human Lispro (Insulin Lispro 100 Unit/Ml 3 Ml Vial) 0 unit SUBCUT QIDACHS [facility]; Protocol Ipratropium Amma (Ipratropium Amma Maynor 0.06 % 15 Ml [place]) 2 spray NOSTRIL-B BID [facility] Levothyroxine Sodium (Levothyroxine Sodium 112 Mcg Tablet) 224 mcg PO DAILY@0630 [facility] Loratadine (Loratadine 10 Mg Tablet) 10 mg PO DAILY [facility] Losartan Potassium (Losartan Potassium 25 Mg Tablet) 25 mg PO BEDTIME [facility]; Protocol Metoprolol Succinate (Metoprolol Succinate Er 50 Mg Tab.Er.24h) 50 mg PO DAILY [facility]; Protocol Montelukast Sodium (Montelukast Sodium 10 Mg Tablet) 10 mg PO BEDTIME [facility] Non-Formulary Medication (Benralizumab [Fasenra]) 30 mg SUBCUT Q8W [facility] Non-Formulary Medication (Insulin Degludec [Tresiba Flextouch U-100]) 5 unit SUBCUT DAILY [facility] Omeprazole (Omeprazole 40 Mg Capsule.Dr) 40 mg PO BEDTIME [facility] Ondansetron HCl (Ondansetron Hcl 4 Mg/2 Ml Vial) 4 mg IVPUSH Q8H PRN PRN Reason: Nausea and Vomiting Pharmacy Consult (Consult Rx Vancomycin Dosing) 1 each MISCELLANE DAILY PRN PRN Reason: Consult order Pyridostigmine Amma (Pyridostigmine Amma 60 Mg Tablet) 60 mg PO TID [facility] Sodium Chloride (0.9 % Sodium Chloride Flush 3 Ml Syringe) 3 ml IVFLUSH QSHIFT [facility] Tizanidine HCl (Tizanidine Hcl 4 Mg Tablet) 2 mg PO BEDTIME [facility] Vitamin D (Cholecalciferol (Vitamin D3) 25 Mcg Tablet) 100 mcg PO DAILY [facility] Home Medications Medication Instructions Recorded Confirmed Last Taken Type ipratropium bromide 42 mcg (0.06 2 spray intranasal BID 03/11/21 01/02/23 Unknown History %) nasal spray immune glob,gamma(IgG) 5 40 g IV Q3W 07/09/21 01/02/23 3 Weeks Ago History [id number] 0 to 50 mcg/mL ~12/12/22 IV solution (Gammagard S-D (IgA < 1 mcg/mL)) benralizumab 30 mg/mL subcutaneous 30 mg subcut Q8W 10/06/22 01/02/23 1 Week Ago History syringe (Fasenra) ~12/26/22 atorvastatin 40 mg tablet 40 mg PO BEDTIME 01/02/23 01/02/23 Unknown History calcium citrate 500 mg PO DAILY 01/02/23 01/02/23 01/02/23 08:00 History hydromorphone 2 mg tablet 1 tab PO BID 01/02/23 01/02/23 01/02/23 08:00 History ibuprofen 600 mg tablet 600 mg PO BID PRN for pain 01/02/23 01/02/23 01/02/23 08:00 History loratadine 10 mg tablet 10 mg PO DAILY 01/02/23 01/02/23 01/02/23 08:00 History losartan 25 mg tablet 25 mg PO BEDTIME 01/02/23 01/02/23 Unknown History omeprazole 40 mg capsule,delayed 40 mg PO BEDTIME gastritis 01/02/23 01/02/23 Unknown History release pyridostigmine bromide 60 mg tablet 60 mg PO TID 01/02/23 01/02/23 01/02/23 08:00 History tizanidine 2 mg tablet 2 mg PO BEDTIME 01/02/23 01/02/23 Unknown History Physical Exam Vital Signs and Narrative: Vital Signs: Last Vital Signs Temp 96.8 F 01/03/23 04:00 Pulse 62 01/03/23 04:00 Resp 16 01/03/23 04:00 BP 150/80 H 01/03/23 04:00 Pulse Ox 95 01/03/23 04:00 O2 Del Method 01/03/23 04:00 BMI result Body Mass Index 37.8 Const: General: cooperative and no acute distress Orientation/consciousness: patient oriented x3 Eyes: General: appearance normal, both eyes and all related structures Pupils: Equal, round and reactive pupils present Chest: Other: right swell site of port insertion slightly tender, with mild erythema Resp: Effort & Inspection: normal respiratory effort Auscultation: clear to auscultation bilaterally Cardio: Rate: regular rate Rhythm: regular rhythm GI: Palpation (GI): Soft to palpation Auscultation: normal bowel sounds Skin: Other: slight erythema and tenderness at the site of insertion of PICC line on the right upper chest General skin exam: no rashes or lesions noted Neuro: General: patient oriented x3 Cranial nerves: Yes Equal, round and reactive pupils present Cognition (Neuro): normal cognition Extrem: General: Yes normal to inspection and Yes no pedal edema Results Labs 01/02/23 14:55 01/02/23 14:55 Labs: Laboratory Results - last 24 hr 01/02/23 01/02/23 01/02/23 14:55 14:55 14:55 MCV 82.8 MCH 27.2 MCHC 32.9 RDW 14.1 Plt Count 146 L MPV 10.9 Immature Gran % (Auto) 0.3 Neut % (Auto) 64.8 Lymph % (Auto) 26.6 [place] % (Auto) 7.9 Eos % (Auto) 0.2 Baso % (Auto) 0.2 Lymph # (Auto) 1.7 [place] # (Auto) 0.5 Eos # (Auto) 0.0 Baso # (Auto) 0.0 Abs Immat Gran (auto) 0.02 Absolute Neuts (auto) 4.1 Absolute Nucleated RBC 0.000 Nucleated RBC % (auto) 0.0 PT INR APTT D-Dimer High Sensitivty Anion Gap 18 Estim Creat Clear Calc 88.0 Estimated GFR > 60 Random Glucose 204 H Lactic Acid Calcium 9.5 Total Bilirubin 1.2 H AST 36 H ALT 61 H Alkaline Phosphatase 94 Troponin I High Sens 4.7 B-Natriuretic Peptide Total Protein 6.7 Albumin 4.0 Urine Color Urine Appearance Urine pH Ur Specific [place] Urine Protein Urine Glucose (UA) Urine Ketones Urine Blood Urine Nitrite Ur Leukocyte Esterase COVID-19 (JODY) COVID-[employer] 01/02/23 01/02/23 01/02/23 14:55 19:34 19:34 MCV MCH MCHC RDW Plt Count MPV Immature Gran % (Auto) Neut % (Auto) Lymph % (Auto) [place] % (Auto) Eos % (Auto) Baso % (Auto) Lymph # (Auto) [place] # (Auto) Eos # (Auto) Baso # (Auto) Abs Immat Gran (auto) Absolute Neuts (auto) Absolute Nucleated RBC Nucleated RBC % (auto) PT 10.9 INR 1.0 APTT 27.5 D-Dimer High Sensitivty 155 Anion Gap Estim Creat Clear Calc Estimated GFR Random Glucose Lactic Acid Calcium Total Bilirubin AST ALT Alkaline Phosphatase Troponin I High Sens B-Natriuretic Peptide 16 Total Protein Albumin Urine Color Urine Appearance Urine pH Ur Specific [place] Urine Protein Urine Glucose (UA) Urine Ketones Urine Blood Urine Nitrite Ur Leukocyte Esterase COVID-19 (JODY) COVID-19 [place] 01/02/23 01/02/23 01/03/23 20:11 23:07 02:07 MCV MCH MCHC RDW Plt Count MPV Immature Gran % (Auto) Neut % (Auto) Lymph % (Auto) [place] % (Auto) Eos % (Auto) Baso % (Auto) Lymph # (Auto) [place] # (Auto) Eos # (Auto) Baso # (Auto) Abs Immat Gran (auto) Absolute Neuts (auto) Absolute Nucleated RBC Nucleated RBC % (auto) PT INR APTT D-Dimer High Sensitivty Anion Gap Estim Creat Clear Calc Estimated GFR Random Glucose Lactic Acid 1.1 Calcium Total Bilirubin AST ALT Alkaline Phosphatase Troponin I High Sens B-Natriuretic Peptide Total Protein Albumin Urine Color Yellow Urine Appearance Clear Urine pH 5.5 Ur Specific [place] 1.010 Urine Protein Negative Urine Glucose (UA) Negative Urine Ketones Negative Urine Blood Negative Urine Nitrite Negative Ur Leukocyte Esterase Negative COVID-19 (JODY) Negative COVID-19 Clin Com See Note Imaging Radiologist's Impressions: Impressions Chest CT 01/02/23 20:28 IMPRESSION: 1. Small fluid collection in the right anterior chest wall at the site of prior chest wall port. Mild surrounding inflammatory change. 2. No acute pulmonary finding. Fleischner guidelines were followed. Assessment and Plan (1) Cellulitis of chest wall: Status: Acute (2) Incisional infection: Status: Acute (3) History of removal of Port-a-Cath: Status: Acute Plan 52-year-old female with past medical history of chronic Port-A-Cath insertion for IVIG presents the hospital after having the port removed stating pain and discharge from site of incision # cellulitis of chest wall /incisional infection - tenderness, mild erythema there is also evidence of fluid collection on CT of the chest - will treat with IV antibiotics, consult general surgery for possible drainage - follow cultures # diabetes - continue home insulin - low-dose sliding scale insulin - diabetic diet # hyperlipidemia - continue statin # chronic pain - continue home Dilaudid # history of asthma - continue home inhalers - not in exacerbation # hypothyroidism - continue levothyroxine # hypertension - stable - continue antihypertensives DVT prophylaxis: SCD/early ambulation given patient's need for further evaluation of cellulitis as well as fluid drainage patient require minimum 2 night inpatient hospital stay for further management and monitoring Time Spent With Patient Time: Total time managing care of this patient today ____ minutes. Quality Stroke Does the patient have a stroke diagnosis?: No VTE Prior VTE?: No VTE Risk Level:: Medical - low VTE Device Contraindication: N/A - Device Ordered VTE Drug Contraindication: Treatment Not Indicated
[2023-01-03 07:19] VITALS: BP 156/75; PULSE 66; RESP 18; TEMP 37.1; O2SAT 96
[2023-01-03 07:42] LABS: Glucose, Whole Blood 165 mg/dL (60-115)
--- NOTE | 2023-01-03 07:50 | P.CONGS_ITS ---
History of Present Illness Consult details Consult date: 01/03/23 Narrative: 52-year-old woman with type 2 diabetes, last hemoglobin A1c 8.0 in September, with a complex medical history who had her right chest wall Port-A-Cath room last week since it flipped. She is admitted to the hospital with the possibility of an infection since there is a 2.0 cm collection at the removal site and some pain. Patient denies any drainage. Review of Systems Review of Systems: Yes all other systems are reviewed and are negative Constitutional: Constitutional: Reports as per [facility] Past Medical History Medical History Acquired hypothyroidism Asthma Asthma Benign essential hypertension Brugada syndrome Cellulitis of both lower extremities Chronic restrictive lung disease Diabetes mellitus Encounter for care related to Port-a-Cath Gastritis History of revision of total replacement of right hip joint (~12/2019) HTN (hypertension) Hx of cataract Hypogammaglobulinemia Hypothyroidism Lumbar degenerative disc disease Mitochondrial myopathy Obesity (BMI 30-39.9) CHARLES (obstructive sleep apnea) Osteoarthritis of hip Osteopenia Pain of both hip joints Pure hypercholesterolemia Recurrent cellulitis of lower extremity Right hip pain Tinea pedis Family History Family History Father Leukemia Mother Hypertension Diabetes Sister Alive and well Brother Pancreatic cancer Paternal Grandmother Stomach cancer Paternal Grandmother Throat cancer Surgical History Surgical History History of elbow surgery (~07/2016) History of eye surgery (~09/2017) History of hip surgery History of removal of cyst History of total right hip arthroplasty (~06/03/19) Hx of appendectomy Hx of bilateral breast reduction surgery Hx of foot surgery (~01/02/19) Hx of hysterectomy (~07/2011) Hx of left knee surgery Hx of thumb surgery Social History Social History Housing: Apartment Alcohol intake: former Patient Tobacco Use Status: Never used Tobacco Smoked in Last 30 Days: No e-Cigarette/Vaping Use: Never Used Second Hand Smoke Exposure: No Use of substances other than those prescribed or required for medical reasons: No Advance Directives: No Advance Directives Information Provided: Yes Nutrition Risks: No Nutritional Risk Patient : No service: No Current occupational status: disabled Cognitive needs: No Hearing needs: No Vision needs: No Meds Allergies Allergy/AdvReac Type Severity Reaction Status Date / Time latex [LATEX] Allergy Severe DIFFICULTY Verified 01/02/23 14:13 BREATHING levofloxacin [From LEVAQUIN] Allergy Severe SHORTNESS Verified 01/02/23 14:13 OF BREATH, RASH, rash morphine [MORPHINE] Allergy Severe RASH, Verified 01/02/23 14:13 asthma exacerbation, rash baclofen [BACLOFEN] Allergy Intermediate RASH Verified 01/02/23 14:13 celecoxib [Celebrex] Allergy Intermediate itching, Verified 01/02/23 14:13 rash, flushing prednisone [PREDNISONE] Allergy Intermediate RASH, Verified 01/02/23 14:13 asthma exacerbation, rash sulfamethoxazole Allergy Intermediate vertigo Verified 01/02/23 14:13 [From Bactrim] trimethoprim [From Bactrim] Allergy Intermediate vertigo Verified 01/02/23 14:13 codeine Allergy Unknown Rash Verified 01/02/23 14:13 gluten [GLUTEN] Allergy Unknown UNKNOWN Verified 01/02/23 14:13 oxycodone Allergy Unknown rash Verified 01/02/23 14:13 ranitidine Allergy Unknown unknown Verified 01/02/23 14:13 roflumilast [Daliresp] Allergy Unknown rash Verified 01/02/23 14:13 tramadol [TRAMADOL] Allergy Unknown RASH,SHORTNESS Verified 01/02/23 14:13 OF BREATH AND HEADACHE, asthma exacerbation, rash cephalexin AdvReac Intermediate Difficulty Verified 01/02/23 14:13 Breathing diazepam [From Valium] AdvReac Cough Verified 01/02/23 14:13 celery, pinapple, Allergy Unknown rash Uncoded 01/02/23 14:13 strawberries ENVIROMENTAL Allergy Unknown CLEANING Uncoded 01/02/23 14:13 PRODUCTS CAUSE ASTHMA ATTACK Flexeril Allergy Unknown asthma Uncoded 01/02/23 14:13 exacerbation, rash Active Medications: Current Medications Acetaminophen (Acetaminophen 325 Mg Tablet) 650 mg PO Q6H PRN PRN Reason: Pain, Mild (Pain Scale 1-3) Last Admin: 01/03/23 04:19 Dose: 650 mg Atorvastatin Calcium (Atorvastatin Calcium 40 Mg Tablet) 40 mg PO BEDTIME [facility] Calcium Carbonate (Calcium Carbonate 500 Mg Tablet) 500 mg PO DAILY [facility] Docusate Sodium (Docusate Sodium 100 Mg Capsule) 100 mg PO DAILY PRN PRN Reason: Constipation Ferrous Sulfate (Ferrous Sulfate 324 Mg Tablet.) 324 mg PO DAILY [facility] Glucose (Glucose Gel 15 Gm Gel..Gram.) 15 gm PO Q15M PRN; Protocol PRN Reason: per Hypoglycemia Standing Ord. Hydromorphone HCl (Hydromorphone Hcl 2 Mg Tablet) 2 mg PO BID [facility] Dextrose (D10) 250 mls @ 750 mls/hr IV Q15M PRN; Protocol PRN Reason: per Hypoglycemia Standing Ord. Ibuprofen (Ibuprofen 600 Mg Tablet) 600 mg PO BID PRN PRN Reason: for pain Last Admin: 01/03/23 01:27 Dose: 600 mg Insulin Human Lispro (Insulin Lispro 100 Unit/Ml 3 Ml Vial) 0 unit SUBCUT QIDACHS [facility]; Protocol Ipratropium [place] (Ipratropium [place] 0.06 % 15 Ml [place]) 2 spray NOST RIL-B BID [facility] Levalbuterol HCl (Levalbuterol Hcl 1.25 Mg/0.5 Ml Vial.Neb) 1.25 mg INHALE Q3H PRN PRN Reason: sob Levothyroxine Sodium (Levothyroxine Sodium 112 Mcg Tablet) 224 mcg PO DAILY@0630 [facility] Last Admin: 01/03/23 06:38 Dose: Not Given Loratadine (Loratadine 10 Mg Tablet) 10 mg PO DAILY [facility] Losartan Potassium (Losartan Potassium 25 Mg Tablet) 25 mg PO BEDTIME [facility]; Protocol Metoprolol Succinate (Metoprolol Succinate Er 50 Mg Tab.Er.24h) 50 mg PO DAILY [facility]; Protocol Montelukast Sodium (Montelukast Sodium 10 Mg Tablet) 10 mg PO BEDTIME [facility] Non-Formulary Medication (Insulin Degludec [Tresiba Flextouch U-100]) 5 unit SUBCUT DAILY [facility] Omeprazole (Omeprazole 40 Mg Capsule.) 40 mg PO BEDTIME [facility] Ondansetron HCl (Ondansetron Hcl 4 Mg/2 Ml Vial) 4 mg IVPUSH Q8H PRN PRN Reason: Nausea and Vomiting Pharmacy Consult (Consult Rx Vancomycin Dosing) 1 each [place] DAILY PRN PRN Reason: Consult order Pyridostigmine [place] (Pyridostigmine [place] 60 Mg Tablet) 60 mg PO TID [facility] Sodium Chloride (0.9 % Sodium Chloride Flush 3 Ml Syringe) 3 ml IVFLUSH QSHIFT [facility] Tizanidine HCl (Tizanidine Hcl 4 Mg Tablet) 2 mg PO BEDTIME [facility] Vitamin D (Cholecalciferol (Vitamin D3) 25 Mcg Tablet) 100 mcg PO DAILY [facility] Home Medications Medication Instructions Recorded Confirmed Last Taken Type ipratropium bromide 42 mcg (0.06 2 spray intranasal BID 03/11/21 01/02/23 Unknown History %) nasal spray immune glob,gamma(IgG) 5 40 g IV Q3W 07/09/21 01/02/23 3 Weeks Ago History [id number] 0 to 50 mcg/mL ~12/12/22 IV solution (Gammagard S-D (IgA < 1 mcg/mL)) benralizumab 30 mg/mL subcutaneous 30 mg subcut Q8W 10/06/22 01/02/23 1 Week Ago History syringe (Fasenra) ~12/26/22 atorvastatin 40 mg tablet 40 mg PO BEDTIME 01/02/23 01/02/23 Unknown History calcium citrate 500 mg PO DAILY 01/02/23 01/02/23 01/02/23 08:00 History hydromorphone 2 mg tablet 1 tab PO BID 01/02/23 01/02/23 01/02/23 08:00 History ibuprofen 600 mg tablet 600 mg PO BID PRN for pain 01/02/23 01/02/23 01/02/23 08:00 History loratadine 10 mg tablet 10 mg PO DAILY 01/02/23 01/02/23 01/02/23 08:00 History losartan 25 mg tablet 25 mg PO BEDTIME 01/02/23 01/02/23 Unknown History omeprazole 40 mg capsule,delayed 40 mg PO BEDTIME gastritis 01/02/23 01/02/23 Unknown History release pyridostigmine bromide 60 mg tablet 60 mg PO TID 01/02/23 01/02/23 01/02/23 08:00 History tizanidine 2 mg tablet 2 mg PO BEDTIME 01/02/23 01/02/23 Unknown History Physical Exam Vital Signs: Vital Signs: Last Vital Signs Temp 98.7 F 01/03/23 07:19 Pulse 66 01/03/23 07:19 Resp 18 01/03/23 07:19 BP 156/75 H 01/03/23 07:19 Pulse Ox 96 01/03/23 07:19 O2 Del Method 01/03/23 07:19 BMI result Body Mass Index 37.8 On exam she is nontoxic and in surprisingly good spirits She is in no acute respiratory distress There is no crepitance to the right chest wall. There is some mild erythema around the incision and some mild tenderness. Results Labs 01/02/23 14:55 01/02/23 14:55 Labs: Abnormal lab results 01/02/23 01/02/23 01/03/23 Range/Units 14:55 14:55 07:11 Hct 36.5 L (37.0-47.0) % Plt Count 146 L (160-400) X10*3/uL Carbon Dioxide 21 L (22-29) mmol/L POC Glucose 165 H (60-115) mg/dL Random Glucose 204 H (60-115) mg/dL Total Bilirubin 1.2 H (0.0-1.0) mg/dL AST 36 H (5-31) U/L ALT 61 H (0-31) U/L Short CBC 01/02/23 Range/Units 14:55 WBC 6.3 (4.8-10.8) X10*3/uL Hgb 12.0 (12.0-16.0) g/dl Hct 36.5 L (37.0-47.0) % Plt Count 146 L (160-400) X10*3/uL BMP 01/02/23 14:55 Sodium 139 Potassium 4.2 Chloride 104 Carbon Dioxide 21 L BUN 15 Creatinine 0.85 Calcium 9.5 Liver Function 01/02/23 Range/Units 14:55 Total Bilirubin 1.2 H (0.0-1.0) mg/dL AST 36 H (5-31) U/L ALT 61 H (0-31) U/L Alkaline Phosphatase 94 (39-117) U/L Albumin 4.0 (3.5-5.0) g/dL Urine 01/02/23 Range/Units 20:11 Urine Color Yellow Urine Appearance Clear Urine pH 5.5 (5.0-9.0) Ur Specific [place] 1.010 (1.005-1.025) Urine Protein Negative (Neg-Trace) mg/dL Urine Glucose (UA) Negative (Negative) mg/dL All other labs normal. 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 This is not definitely an abscess and may just be some superficial cellulitis. If the patient is poorly controlled diabetes, this will contribute to delayed healing and infection concerns. Would consider continued antibiotics versus ultrasound guided sampling of the small fluid collection with stat Gram stain to better assess whether this is an abscess or just a cellulitis. The patient's diabetes makes an unnecessary open wound a potential chronic issue. If the Gram stain shows no organisms, would treat for cellulitis. Please call with questions. Time Spent With Patient Time: Total time managing care of this patient today ____ minutes. Procedures Date of Service Date of Service: 01/03/23
[2023-01-03] MEDS: Loratadine 10 MG TABLET PO (07:53)
[2023-01-03] MEDS: Cholecalciferol (Vitamin D3) 25 MCG TABLET 100 MCG PO (07:54)
[2023-01-03] MEDS: Ferrous Sulfate 324 MG TABLET.DR PO (07:54)
[2023-01-03] MEDS: Metoprolol Succinate ER 50 MG TAB.ER.24H PO (07:54)
[2023-01-03] MEDS: HYDROmorphone HCl 2 MG TABLET PO ×2 (07:54→21:29)
[2023-01-03] MEDS: 0.9 % Sodium Chloride Flush 3 ML SYRINGE IVFLUSH ×2 (07:56→14:22)
[2023-01-03] MEDS: Insulin Lispro 100 UNIT/ML 3 ML VIAL SUBCUT ×4 (07:56→21:30)
[2023-01-03] MEDS: ondansetron HCL 4 MG/2 ML VIAL IVPUSH ×2 (08:25→22:58)
[2023-01-03 08:42] LABS: MANUAL DIFF FLAG NO
[2023-01-03 08:46] LABS: Hematocrit 36.2 % (37.0-47.0); Hemoglobin 11.9 g/dl (12.0-16.0); Imm Gran Abs Auto 0.01 X10*3/uL (0.00-0.03); Imm Gran Pct Auto 0.2 % (0.0-0.4); Lymphocytes Absolute Auto 1.3 X10*3/uL (1.2-4.9); Mean Corpuscular HGB Conc 32.9 g/dl (31.0-35.0); Mean Corpuscular Hemoglobin 27.6 pg (27.0-33.0); Mean Platelet Volume 10.6 fL (9.4-12.3); Monocytes Absolute Auto 0.5 X10*3/uL (0.1-1.2); Monocytes Percent Auto 10.1 % (2-11); Neutrophils Absolute Auto 3.3 x10*3/uL (2.0-8.3); Neutrophils Percent Auto 64.7 % (45-73); Platelet Count 145 X10*3/uL (160-400); Red Blood Count 4.31 X10*6/uL (4.20-5.50); Red Cell Distribution Width 14.3 % (11.0-16.0); White Blood Count 5.2 X10*3/uL (4.8-10.8)
[2023-01-03 09:02] LABS: Anion Gap 12 (12-20); Blood Urea Nitrogen 12 mg/dL (9-16); Calcium 8.9 mg/dL (8.4-10.2); Carbon Dioxide 26 mmol/L (22-29); Chloride 105 mmol/L (96-108); Creatinine Clr Calc Pharmacy 106.8; Estimated Glomerular Filt Rate > 60; Glucose Random 165 mg/dL (60-115); Potassium 4.1 mmol/L (3.3-5.1); Sodium 139 mmol/L (135-145)
[2023-01-03 09:11] LABS: Estimated Average Glucose 183 mg/dL
--- NOTE | 2023-01-03 09:26 | PHA.PROG ---
Admission Date/Time: January 03, 2023 00:17 Indication: SKIN.SKIN STRUCTURE Weight in k kg Adjusted body weight in K.82 [place] body weight in Kg: Obesity Dosing Indication % IBW: Serum Creatinine - Last 168 Hours 01/02/23 01/03/23 14:55 08:31 Creatinine 0.85 0.70 Estimated CrCl and GFR - Last 168 Hours 01/02/23 01/03/23 14:55 08:31 Estim Creat Clear Calc 88.0 106.8 Estimated GFR > 60 > 60 Vancomycin Loading Dose: 2000 MG Current Vancomycin Dosing Regimen: 1000MG Q12H Vancomycin Monitoring using AUC goal of 400 - 600 range with trough as surrogate marker: AUC 497, TROUGH 14.3 Date and Time for next Vancomycin Level to be drawn: 01/04 @1100 Pharmacist Comments on Vancomycin Plan: OBESE MODEL Vancomycin dosing will take advantage of Poll[employer] as a clinical decision support tool that uses Bayesian modeling to calculate individual patient's pharmacokinetic parameters and forecast the patient's drug concentration time course with the target goal AUC 24 range of 400 - 600 mg/L/hr.
--- NOTE | 2023-01-03 09:57 | MHC.CM.PN ---
IMM 01/03/23 Female 52 s/p removal of port. She lives with grdtrs and dtr-i-law. She uses crutches for unsteady gait. Pt s/p hip surgery 3 yrs ago, requires crutches to ambulate safely. NO VAXX. Requested a copy of pts HCP. DP home self care. Patient will arrange for transportation home.
[2023-01-03] MEDS: pyRIDostigmine bromide 60 MG TABLET PO ×3 (10:11→21:29)
--- NOTE | 2023-01-03 10:17 | HO.PM.IMPN ---
Subjective Subjective Date of Service: 01/03/23 Interval History: port site erythema pain Physical Exam Vital Signs: Vital Signs: Last Vital Signs Temp 98.7 F 01/03/23 07:19 Pulse 66 01/03/23 07:19 Resp 18 01/03/23 07:19 BP 156/75 H 01/03/23 07:19 Pulse Ox 96 01/03/23 07:19 O2 Del Method 01/03/23 07:19 BMI result Body Mass Index 37.8 ertyhema, tenderness over chest port site Objective Data Active Medications Acetaminophen (Acetaminophen 325 Mg Tablet) 650 mg PO Q6H PRN PRN Reason: Pain, Mild (Pain Scale 1-3) Last Admin: 01/03/23 04:19 Dose: 650 mg Documented By: FREDI Atorvastatin Calcium (Atorvastatin Calcium 40 Mg Tablet) 40 mg PO BEDTIME [facility] Calcium Carbonate (Calcium Carbonate 500 Mg Tablet) 500 mg PO DAILY [facility] Last Admin: 01/03/23 07:53 Dose: 500 mg Documented By: MANDY Docusate Sodium (Docusate Sodium 100 Mg Capsule) 100 mg PO DAILY PRN PRN Reason: Constipation Ferrous Sulfate (Ferrous Sulfate 324 Mg Tablet.Dr) 324 mg PO DAILY [facility] Last Admin: 01/03/23 07:54 Dose: 324 mg Documented By: MANDY Glucose (Glucose Gel 15 Gm Gel..Gram.) 15 gm PO Q15M PRN; Protocol PRN Reason: per Hypoglycemia Standing Ord. Hydromorphone HCl (Hydromorphone Hcl 2 Mg Tablet) 2 mg PO BID [facility] Last Admin: 01/03/23 07:54 Dose: 2 mg Documented By: MANDY Dextrose (D10) 250 mls @ 750 mls/hr IV Q15M PRN; Protocol PRN Reason: per Hypoglycemia Standing Ord. Vancomycin HCl 1,000 mg/ (Sodium Chloride) 270 mls @ 270 mls/hr IV Q12H [facility] Ibuprofen (Ibuprofen 600 Mg Tablet) 600 mg PO BID PRN PRN Reason: for pain Last Admin: 01/03/23 01:27 Dose: 600 mg Documented By: FREDI Insulin Human Lispro (Insulin Lispro 100 Unit/Ml 3 Ml Vial) 0 unit SUBCUT QIDACHS [facility]; Protocol Last Admin: 01/03/23 07:56 Dose: 2 unit Documented By: MANDY Ipratropium [place] (Ipratropium [place] Maynor 0.06 % 15 Ml [place]) 2 spray NOSTRIL-B BID [facility] Levalbuterol HCl (Levalbuterol Hcl 1.25 Mg/0.5 Ml Vial.Neb) 1.25 mg INHALE Q3H PRN PRN Reason: sob Levothyroxine Sodium (Levothyroxine Sodium 112 Mcg Tablet) 224 mcg PO DAILY@0630 [facility] Last Admin: 01/03/23 06:38 Dose: Not Given Documented By: ROBERTA Non-Admin Reason: Patient Refused Loratadine (Loratadine 10 Mg Tablet) 10 mg PO DAILY [facility] Last Admin: 01/03/23 07:53 Dose: 10 mg Documented By: MANDY Losartan Potassium (Losartan Potassium 25 Mg Tablet) 25 mg PO BEDTIME [facility]; Protocol Metoprolol Succinate (Metoprolol Succinate Er 50 Mg Tab.Er.24h) 50 mg PO DAILY [facility]; Protocol Last Admin: 01/03/23 07:54 Dose: 50 mg Documented By: MANDY Montelukast Sodium (Montelukast Sodium 10 Mg Tablet) 10 mg PO BEDTIME [facility] Non-Formulary Medication (Insulin Degludec [Tresiba Flextouch U-100]) 5 unit SUBCUT DAILY [facility] Omeprazole (Omeprazole 40 Mg Capsule.Dr) 40 mg PO BEDTIME [facility] Ondansetron HCl (Ondansetron Hcl 4 Mg/2 Ml Vial) 4 mg IVPUSH Q8H PRN PRN Reason: Nausea and Vomiting Last Admin: 01/03/23 08:25 Dose: 4 mg Documented By: MANDY Pharmacy Consult (Consult Rx Vancomycin Dosing) 1 each MISCELLANE DAILY PRN PRN Reason: Consult order Pyridostigmine [place] (Pyridostigmine [place] 60 Mg Tablet) 60 mg PO TID [facility] Last Admin: 01/03/23 10:11 Dose: 60 mg Documented By: MANDY Sodium Chloride (0.9 % Sodium Chloride Flush 3 Ml Syringe) 3 ml IVFLUSH QSHIFT [facility] Last Admin: 01/03/23 07:56 Dose: 3 ml Documented By: MANDY Tizanidine HCl (Tizanidine Hcl 4 Mg Tablet) 2 mg PO BEDTIME [facility] Vitamin D (Cholecalciferol (Vitamin D3) 25 Mcg Tablet) 100 mcg PO DAILY [facility] Last Admin: 01/03/23 07:54 Dose: 100 mcg Documented By: AMNDY Labs 01/03/23 08:31 01/03/23 08:31 Labs: Laboratory Results - last 24 hr 01/02/23 01/02/23 01/02/23 14:55 14:55 14:55 MCV 82.8 MCH 27.2 MCHC 32.9 RDW 14.1 Plt Count 146 L MPV 10.9 Immature Gran % (Auto) 0.3 Neut % (Auto) 64.8 Lymph % (Auto) 26.6 [place] % (Auto) 7.9 Eos % (Auto) 0.2 Baso % (Auto) 0.2 Lymph # (Auto) 1.7 [place] # (Auto) 0.5 Eos # (Auto) 0.0 Baso # (Auto) 0.0 Abs Immat Gran (auto) 0.02 Absolute Neuts (auto) 4.1 Absolute Nucleated RBC 0.000 Nucleated RBC % (auto) 0.0 PT INR APTT D-Dimer High Sensitivty Anion Gap 18 Estim Creat Clear Calc 88.0 Estimated GFR > 60 POC Glucose Random Glucose 204 H Estimat Average Glucose Hemoglobin A1c % Lactic Acid Calcium 9.5 Total Bilirubin 1.2 H AST 36 H ALT 61 H Alkaline Phosphatase 94 Troponin I High Sens 4.7 B-Natriuretic Peptide Total Protein 6.7 Albumin 4.0 Urine Color Urine Appearance Urine pH Ur Specific [place] Urine Protein Urine Glucose (UA) Urine Ketones Urine Blood Urine Nitrite Ur Leukocyte Esterase COVID-19 ([facility]) COVID-19 Clin Com 01/02/23 01/02/23 01/02/23 14:55 19:34 19:34 MCV MCH MCHC RDW Plt Count MPV Immature Gran % (Auto) Neut % (Auto) Lymph % (Auto) [place] % (Auto) Eos % (Auto) Baso % (Auto) Lymph # (Auto) [place] # (Auto) Eos # (Auto) Baso # (Auto) Abs Immat Gran (auto) Absolute Neuts (auto) Absolute Nucleated RBC Nucleated RBC % (auto) PT 10.9 INR 1.0 APTT 27.5 D-Dimer High Sensitivty 155 Anion Gap Estim Creat Clear Calc Estimated GFR POC Glucose Random Glucose Estimat Average Glucose Hemoglobin A1c % Lactic Acid Calcium Total Bilirubin AST ALT Alkaline Phosphatase Troponin I High Sens B-Natriuretic Peptide 16 Total Protein Albumin Urine Color Urine Appearance Urine pH Ur Specific [place] Urine Protein Urine Glucose (UA) Urine Ketones Urine Blood Urine Nitrite Ur Leukocyte Esterase COVID-19 (JODY) COVID-19 Clin Com 01/02/23 01/02/23 01/03/23 20:11 23:07 02:07 MCV MCH MCHC RDW Plt Count MPV Immature Gran % (Auto) Neut % (Auto) Lymph % (Auto) [place] % (Auto) Eos % (Auto) Baso % (Auto) Lymph # (Auto) [place] # (Auto) Eos # (Auto) Baso # (Auto) Abs Immat Gran (auto) Absolute Neuts (auto) Absolute Nucleated RBC Nucleated RBC % (auto) PT INR APTT D-Dimer High Sensitivty Anion Gap Estim Creat Clear Calc Estimated GFR POC Glucose Random Glucose Estimat Average Glucose Hemoglobin A1c % Lactic Acid 1.1 Calcium Total Bilirubin AST ALT Alkaline Phosphatase Troponin I High Sens B-Natriuretic Peptide Total Protein Albumin Urine Color Yellow Urine Appearance Clear Urine pH 5.5 Ur Specific [place] 1.010 Urine Protein Negative Urine Glucose (UA) Negative Urine Ketones Negative Urine Blood Negative Urine Nitrite Negative Ur Leukocyte Esterase Negative COVID-19 (JODY) Negative COVID-19 Clin Com See Note 01/03/23 01/03/23 01/03/23 07:11 08:31 08:31 MCV 84.0 MCH 27.6 MCHC 32.9 RDW 14.3 Plt Count 145 L MPV 10.6 Immature Gran % (Auto) 0.2 Neut % (Auto) 64.7 Lymph % (Auto) 25.0 [place] % (Auto) 10.1 Eos % (Auto) 0.0 Baso % (Auto) 0.0 Lymph # (Auto) 1.3 [place] # (Auto) 0.5 Eos # (Auto) 0.0 Baso # (Auto) 0.0 Abs Immat Gran (auto) 0.01 Absolute Neuts (auto) 3.3 Absolute Nucleated RBC 0.000 Nucleated RBC % (auto) 0.0 PT INR APTT D-Dimer High Sensitivty Anion Gap 12 Estim Creat Clear Calc 106.8 Estimated GFR > 60 POC Glucose 165 H Random Glucose 165 H Estimat Average Glucose Hemoglobin A1c % Lactic Acid Calcium 8.9 D Total Bilirubin AST ALT Alkaline Phosphatase Troponin I High Sens B-Natriuretic Peptide Total Protein Albumin Urine Color Urine Appearance Urine pH Ur Specific [place] Urine Protein Urine Glucose (UA) Urine Ketones Urine Blood Urine Nitrite Ur Leukocyte Esterase COVID-19 (JODY) COVID-19 Clin Com 01/03/23 08:31 MCV MCH MCHC RDW Plt Count MPV Immature Gran % (Auto) Neut % (Auto) Lymph % (Auto) [place] % (Auto) Eos % (Auto) Baso % (Auto) Lymph # (Auto) [place] # (Auto) Eos # (Auto) Baso # (Auto) Abs Immat Gran (auto) Absolute Neuts (auto) Absolute Nucleated RBC Nucleated RBC % (auto) PT INR APTT D-Dimer High Sensitivty Anion Gap Estim Creat Clear Calc Estimated GFR POC Glucose Random Glucose Estimat Average Glucose 183 Hemoglobin A1c % 8.0 Lactic Acid Calcium Total Bilirubin AST ALT Alkaline Phosphatase Troponin I High Sens B-Natriuretic Peptide Total Protein Albumin Urine Color Urine Appearance Urine pH Ur Specific [place] Urine Protein Urine Glucose (UA) Urine Ketones Urine Blood Urine Nitrite Ur Leukocyte Esterase COVID-19 (JODY) COVID-19 Clin Com Assessment and Plan (1) Cellulitis of chest wall: Status: Acute Plan 52F past medical history of?DM, obesity, hypothyroid, htn, hypogammagloubiliemia, mitochondrial myopathy, RA?, brugada, chronic Port-A-Cath insertion for IVIG presented the hospital after having the port removed stating pain and discharge from? site of incision cellulitis of chest wall /incisional infection gen surgery appreciated local care iv vanc follow up cultures diabetes insulin hyperlipidemia continue statin chronic pain continue home Dilaudid history of mild intermittent asthma continue home inhalers not in exacerbation hypothyroidism continue levothyroxine hypertension losartan, toprol mitochondrial myopathy [place] ?DVT prophylaxis:? SCD/early ambulation Time Spent With Patient Time: Total time managing care of this patient today ____ minutes. Quality Stroke Does the patient have a stroke diagnosis?: No VTE Prior VTE?: No VTE Risk Level:: Medical - low VTE Device Contraindication: N/A - Device Ordered VTE Drug Contraindication: Treatment Not Indicated
[2023-01-03 11:23] LABS: Glucose, Whole Blood 229 mg/dL (60-115)
[2023-01-03] MEDS: vancomycin HCL 1,000 MG in 0.9 % Sodium Chloride 250 ML 270 MG IV (11:49)
[2023-01-03 14:57] VITALS: PULSE 67; RESP 17; TEMP 36.8; O2SAT 95
[2023-01-03 16:44] LABS: Glucose, Whole Blood 211 mg/dL (60-115)
[2023-01-03] MEDS: Butalb/Acetamin/Caff 50/325/40 TABLET 1 TAB PO (16:45)
[2023-01-03 19:13] VITALS: BP 159/78; PULSE 65; RESP 16; TEMP 35.9; O2SAT 96
[2023-01-03 20:51] LABS: Glucose, Whole Blood 185 mg/dL (60-115)
[2023-01-03] MEDS: Losartan Potassium 25 MG TABLET PO (21:29)
[2023-01-03] MEDS: Atorvastatin Calcium 40 MG TABLET PO (21:29)
[2023-01-03] MEDS: Montelukast Sodium 10 MG TABLET PO (21:29)
[2023-01-03] MEDS: Omeprazole 40 MG CAPSULE.DR PO (21:29)
[2023-01-03] MEDS: TiZANidine HCL 4 MG TABLET 2 MG PO (21:30)
[2023-01-04] MEDS: vancomycin HCL 1,000 MG in 0.9 % Sodium Chloride 250 ML 270 MG IV (01:32)
[2023-01-04 02:43] VITALS: BP 122/64; PULSE 60; RESP 16; TEMP 35.6; O2SAT 94
[2023-01-04 06:28] LABS: Hematocrit 32.9 % (37.0-47.0); Hemoglobin 10.8 g/dl (12.0-16.0); Mean Corpuscular HGB Conc 32.8 g/dl (31.0-35.0); Mean Corpuscular Hemoglobin 27.4 pg (27.0-33.0); Mean Corpuscular Volume 83.5 fL (80.0-98.0); Mean Platelet Volume 11.2 fL (9.4-12.3); Platelet Count 131 X10*3/uL (160-400); Red Blood Count 3.94 X10*6/uL (4.20-5.50); Red Cell Distribution Width 13.9 % (11.0-16.0); White Blood Count 4.8 X10*3/uL (4.8-10.8)
[2023-01-04 07:05] LABS: Anion Gap 15 (12-20); Blood Urea Nitrogen 12 mg/dL (9-16); Calcium 8.7 mg/dL (8.4-10.2); Carbon Dioxide 20 mmol/L (22-29); Chloride 104 mmol/L (96-108); Creatinine Clr Calc Pharmacy 108.4; Estimated Glomerular Filt Rate > 60; Glucose Fasting 152 mg/dL (60-99); Potassium 3.9 mmol/L (3.3-5.1); Sodium 135 mmol/L (135-145)
[2023-01-04 07:34] VITALS: BP 151/75; PULSE 69; RESP 17; TEMP 36.7; O2SAT 97
[2023-01-04 07:34] LABS: Glucose, Whole Blood 165 mg/dL (60-115)
[2023-01-04] MEDS: Insulin Glargine,Hum.rec.anlog 100 UNIT/ML 10 ML VIAL SUBCUT (08:06)
[2023-01-04] MEDS: Insulin Lispro 100 UNIT/ML 3 ML VIAL SUBCUT ×4 (08:06→20:37)
[2023-01-04] MEDS: Ferrous Sulfate 324 MG TABLET.DR PO (08:07)
[2023-01-04] MEDS: Loratadine 10 MG TABLET PO (08:07)
[2023-01-04] MEDS: HYDROmorphone HCl 2 MG TABLET PO ×2 (08:07→20:36)
[2023-01-04] MEDS: Metoprolol Succinate ER 50 MG TAB.ER.24H PO (08:07)
[2023-01-04] MEDS: pyRIDostigmine bromide 60 MG TABLET PO ×3 (08:07→20:36)
[2023-01-04] MEDS: Cholecalciferol (Vitamin D3) 25 MCG TABLET 100 MCG PO (08:07)
[2023-01-04] MEDS: 0.9 % Sodium Chloride Flush 3 ML SYRINGE IVFLUSH ×3 (08:09→19:13)
--- NOTE | 2023-01-04 10:31 | MHC.CM.PN ---
Female 52 s/p port removal. Per MD rounds no discharge today. Final cultures are pending. DP home self care. Pt will arrange for transportation home.
[2023-01-04 11:20] LABS: Glucose, Whole Blood 167 mg/dL (60-115)
[2023-01-04] MEDS: Ibuprofen 600 MG TABLET PO ×2 (11:43→23:01)
[2023-01-04 11:47] LABS: Vancomycin Trough 9.8 mcg/mL (10.0-20.0)
--- NOTE | 2023-01-04 11:57 | HE.PHANOTE ---
OBI SHAIKH CHANGED DOSE TO 1500 MG Q12, NEXT LEVEL AFTER TWO DOSES. NEW AUC 539, TROUGH 11.1 PRETTY
[2023-01-04] MEDS: vancomycin HCL 1,500 MG in 0.9 % Sodium Chloride 500 ML 333.33 MG IV (12:44)
[2023-01-04] MEDS: Acetaminophen 325 MG TABLET 650 MG PO ×2 (12:44→19:17)
[2023-01-04] MEDS: ondansetron HCL 4 MG/2 ML VIAL IVPUSH (12:49)
--- NOTE | 2023-01-04 15:05 | P.PNIM_ITS ---
Subjective Subjective Date of Service: 01/04/23 Interval History: feels improvement and less pain reporting chills but said she always had them no fever or drainage pending final blood cultures no other overnight events Review of Systems Review of Systems: Yes all other systems are reviewed and are negative Physical Exam Vital Signs: Vital Signs: Last Vital Signs Temp 98.0 F 01/04/23 07:34 Pulse 69 01/04/23 07:34 Resp 17 01/04/23 07:34 BP 151/75 H 01/04/23 07:34 Pulse Ox 97 01/04/23 07:34 O2 Del Method 01/04/23 07:34 BMI result Body Mass Index 37.8 Const: Other: Constitutional : Awake, interactive, not in distress Neck : Normal inspection, Supple Cardiovascular : RRR, no JVP, no lower extremity edema Respiratory : good bilateral air entry, no crackles, wheezes or rhonchi Gastrointestinal: soft, lax, Normal bowel sounds, Non tender Skin : Warm, Dry, chest wall no significant tenderness over right side of chest , wound covered with dressing, mild erythema , no drainage noted Neurological : Alert & oriented x3, No focal deficit , CN 2-12 within normal Objective Data Active Medications Acetaminophen (Acetaminophen 325 Mg Tablet) 650 mg PO Q6H PRN PRN Reason: Pain, Mild (Pain Scale 1-3) Last Admin: 01/04/23 12:44 Dose: 650 mg Documented By: MANDY Acetaminophen/Butalbital/Caffeine (Butalb/Acetamin/Caff 50/325/40 Tablet) 1 tab PO Q4H PRN PRN Reason: Headache Last Admin: 01/03/23 16:45 Dose: 1 tab Documented By: LUIS CARLOS Atorvastatin Calcium (Atorvastatin Calcium 40 Mg Tablet) 40 mg PO BEDTIME [facility] Last Admin: 01/03/23 21:29 Dose: 40 mg Documented By: MONALISAZEVilla Calcium Carbonate (Calcium Carbonate 500 Mg Tablet) 500 mg PO DAILY [facility] Last Admin: 01/04/23 08:07 Dose: 500 mg Documented By: MANDY Docusate Sodium (Docusate Sodium 100 Mg Capsule) 100 mg PO DAILY PRN PRN Reason: Constipation Ferrous Sulfate (Ferrous Sulfate 324 Mg Tablet.) 324 mg PO DAILY [facility] Last Admin: 01/04/23 08:07 Dose: 324 mg Documented By: MANYD Glucose (Glucose Gel 15 Gm Gel..Gram.) 15 gm PO Q15M PRN; Protocol PRN Reason: per Hypoglycemia Standing Ord. Hydromorphone HCl (Hydromorphone Hcl 2 Mg Tablet) 2 mg PO BID [facility] Last Admin: 01/04/23 08:07 Dose: 2 mg Documented By: MANDY Dextrose (D10) 250 mls @ 750 mls/hr IV Q15M PRN; Protocol PRN Reason: per Hypoglycemia Standing Ord. Vancomycin HCl 1,500 mg/ (Sodium Chloride) 500 mls @ 333.333 mls/hr IV Q12H [facility] Last Infusion: 01/04/23 14:22 Dose: 0 mls/hr Documented By: MANDY Ibuprofen (Ibuprofen 600 Mg Tablet) 600 mg PO BID PRN PRN Reason: for pain Last Admin: 01/04/23 11:43 Dose: 600 mg Documented By: MANDY Insulin Glargine (Insulin Glargine,Hum.Rec.Anlog 100 Unit/Ml 10 Ml Vial) 3 unit SUBCUT DAILY [facility] Last Admin: 01/04/23 08:06 Dose: 3 unit Documented By: MANDY Insulin Human Lispro (Insulin Lispro 100 Unit/Ml 3 Ml Vial) 0 unit SUBCUT QIDACHS [facility]; Protocol Last Admin: 01/04/23 11:43 Dose: 4 unit Documented By: MANDY Ipratropium [place] (Ipratropium [place] 0.06 % 15 Ml [place]) 2 spray NOSTRIL-B BID [facility] Last Admin: 01/04/23 12:10 Dose: Not Given Documented By: MANDY Non-Admin Reason: Med Not Available Levalbuterol HCl (Levalbuterol Hcl 1.25 Mg/0.5 Ml Vial.Neb) 1.25 mg INHALE Q3H PRN PRN Reason: sob Levothyroxine Sodium (Levothyroxine Sodium 112 Mcg Tablet) 224 mcg PO DAILY@0630 [facility] Last Admin: 01/04/23 06:42 Dose: Not Given Documented By: VICKIE-JOZEB Non-Admin Reason: Patient Refused Loratadine (Loratadine 10 Mg Tablet) 10 mg PO DAILY [facility] Last Admin: 01/04/23 08:07 Dose: 10 mg Documented By: MANDY Losartan Potassium (Losartan Potassium 25 Mg Tablet) 25 mg PO BEDTIME [facility]; Protocol Last Admin: 01/03/23 21:29 Dose: 25 mg Documented By: ROBERTA Metoprolol Succinate (Metoprolol Succinate Er 50 Mg Tab.Er.24h) 50 mg PO DAILY [facility]; Protocol Last Admin: 01/04/23 08:07 Dose: 50 mg Documented By: MANDY Montelukast Sodium (Montelukast Sodium 10 Mg Tablet) 10 mg PO BEDTIME [facility] Last Admin: 01/03/23 21:29 Dose: 10 mg Documented By: ROBERTA Omeprazole (Omeprazole 40 Mg Capsule.Dr) 40 mg PO BEDTIME [facility] Last Admin: 01/03/23 21:29 Dose: 40 mg Documented By: ROBERTA Ondansetron HCl (Ondansetron Hcl 4 Mg/2 Ml Vial) 4 mg IVPUSH Q8H PRN PRN Reason: Nausea and Vomiting Last Admin: 01/04/23 12:49 Dose: 4 mg Documented By: MANDY Pharmacy Consult (Consult Rx Vancomycin Dosing) 1 each MISCELLANE DAILY PRN PRN Reason: Consult order Pyridostigmine [place] (Pyridostigmine [place] 60 Mg Tablet) 60 mg PO TID [facility] Last Admin: 01/04/23 14:33 Dose: 60 mg Documented By: MANDY Sodium Chloride (0.9 % Sodium Chloride Flush 3 Ml Syringe) 3 ml IVFLUSH QSHIFT [facility] Last Admin: 01/04/23 14:34 Dose: 3 ml Documented By: MANDY Tizanidine HCl (Tizanidine Hcl 4 Mg Tablet) 2 mg PO BEDTIME [facility] Last Admin: 01/03/23 21:30 Dose: 2 mg Documented By: ROBERTA Vitamin D (Cholecalciferol (Vitamin D3) 25 Mcg Tablet) 100 mcg PO DAILY [facility] Last Admin: 01/04/23 08:07 Dose: 100 mcg Documented By: MANDY Labs 01/04/23 05:02 01/04/23 05:02 Labs: Laboratory Results - last 24 hr 01/03/23 01/03/23 01/04/23 16:17 19:17 05:02 MCV MCH MCHC RDW Plt Count MPV Absolute Nucleated RBC Nucleated RBC % (auto) Anion Gap 15 Estim Creat Clear Calc 108.4 Estimated GFR > 60 POC Glucose 211 H 185 H Fasting Glucose 152 H Calcium 8.7 Vancomycin Trough 01/04/23 01/04/23 01/04/23 05:02 07:20 10:56 MCV 83.5 MCH 27.4 MCHC 32.8 RDW 13.9 Plt Count 131 L MPV 11.2 Absolute Nucleated RBC 0.000 Nucleated RBC % (auto) 0.0 Anion Gap Estim Creat Clear Calc Estimated GFR POC Glucose 165 H Fasting Glucose Calcium Vancomycin Trough 9.8 L 01/04/23 11:14 MCV MCH MCHC RDW Plt Count MPV Absolute Nucleated RBC Nucleated RBC % (auto) Anion Gap Estim Creat Clear Calc Estimated GFR POC Glucose 167 H Fasting Glucose Calcium Vancomycin Trough Microbiology Microbiology Results: Microbiology 01/02/23 23:15 Gram Stain - Final Chest Routine Culture - Preliminary No growth to date. 01/02/23 23:07 Blood Culture - Preliminary Blood - Venous No growth after 24 hours. 01/02/23 23:07 Blood Culture - Preliminary Blood - Venous No growth after 24 hours. Assessment and Plan (1) Cellulitis of chest wall: Status: Acute (2) Incisional infection: Status: Acute Plan 52F past medical history of?DM, obesity, hypothyroid, htn, hypogammagloubiliemia, mitochondrial myopathy, RA?, brugada, chronic Port-A-Cath insertion for IVIG presented the hospital after having the port removed stating pain and discharge from? site of incision cellulitis of chest wall /incisional infection gen surgery appreciated, concern over possible abscess, follow gram stain and cultures local care continue iv vanc pending follow up cultures diabetes insulin hyperlipidemia continue statin chronic pain continue home Dilaudid history of mild intermittent asthma continue home inhalers not in exacerbation hypothyroidism continue levothyroxine hypertension losartan, toprol mitochondrial myopathy mestinon ?DVT prophylaxis:? SCD/early ambulation Time Spent With Patient Time: Total time managing care of this patient today ____ minutes. Quality Stroke Does the patient have a stroke diagnosis?: No VTE Prior VTE?: No VTE Risk Level:: Medical - low VTE Device Contraindication: N/A - Device Ordered VTE Drug Contraindication: Treatment Not Indicated
[2023-01-04 15:58] VITALS: BP 149/77; PULSE 68; RESP 18; TEMP 36.4; O2SAT 95
[2023-01-04 16:33] LABS: Glucose, Whole Blood 208 mg/dL (60-115)
[2023-01-04 19:14] VITALS: BP 146/78; PULSE 65; RESP 18; TEMP 36.1; O2SAT 96
[2023-01-04 20:28] LABS: Glucose, Whole Blood 214 mg/dL (60-115)
[2023-01-04] MEDS: Losartan Potassium 25 MG TABLET PO (20:36)
[2023-01-04] MEDS: Montelukast Sodium 10 MG TABLET PO (20:36)
[2023-01-04] MEDS: Omeprazole 40 MG CAPSULE.DR PO (20:36)
[2023-01-04] MEDS: Atorvastatin Calcium 40 MG TABLET PO (20:37)
[2023-01-04] MEDS: Ipratropium Bromide Nas 0.06 % 15 ML SPRAY 2 SPRAY NOSTRIL-B (22:03)
[2023-01-04] MEDS: TiZANidine HCL 4 MG TABLET 2 MG PO (23:01)
[2023-01-05] MEDS: vancomycin HCL 1,500 MG in 0.9 % Sodium Chloride 500 ML 333.33 MG IV (00:51)
[2023-01-05 03:30] VITALS: BP 134/69; PULSE 54; RESP 17; TEMP 36.1; O2SAT 95
[2023-01-05] MEDS: Levothyroxine Sodium 112 MCG TABLET 224 MCG PO (05:40)
[2023-01-05 07:10] VITALS: BP 155/78; PULSE 60; RESP 17; TEMP 36.2; O2SAT 97
[2023-01-05 07:19] LABS: Creatinine Clr Calc Pharmacy 109.9; Estimated Glomerular Filt Rate > 60
[2023-01-05 07:27] LABS: Glucose, Whole Blood 165 mg/dL (60-115)
[2023-01-05] MEDS: Cholecalciferol (Vitamin D3) 25 MCG TABLET 100 MCG PO (08:24)
[2023-01-05] MEDS: Ferrous Sulfate 324 MG TABLET.DR PO (08:25)
[2023-01-05] MEDS: Insulin Glargine,Hum.rec.anlog 100 UNIT/ML 10 ML VIAL SUBCUT (08:25)
[2023-01-05] MEDS: Insulin Lispro 100 UNIT/ML 3 ML VIAL SUBCUT (08:25)
[2023-01-05] MEDS: ondansetron HCL 4 MG/2 ML VIAL IVPUSH (08:25)
[2023-01-05] MEDS: Metoprolol Succinate ER 50 MG TAB.ER.24H PO (08:25)
[2023-01-05] MEDS: pyRIDostigmine bromide 60 MG TABLET PO (08:25)
[2023-01-05] MEDS: Loratadine 10 MG TABLET PO (08:25)
[2023-01-05] MEDS: HYDROmorphone HCl 2 MG TABLET PO (08:25)
[2023-01-05] MEDS: 0.9 % Sodium Chloride Flush 3 ML SYRINGE IVFLUSH (08:26)
--- NOTE | 2023-01-05 10:18 | P.DS_ITS ---
DS: Providers Provider Date of Service: 01/05/23 Date of admission: 01/03/23 00:17 Primary care physician: Cassius Strong MD Consults: 01/03/23 00:16 Consult to General Surgery Routine Consulting Provider: [facility] [place] [facility] Reason for consultation: chest abscess Has provider been notified: No DS: Diagnosis Discharge Diagnosis (1) Cellulitis of chest wall: Status: Acute (2) Incisional infection: Status: Acute DS: Summary Hospital Course Hospital Course: Admission note HPI ?this is a 52-year-old female with past medical history hypothyroidism, asthma, HTN, Brugada syndrome, chronic restrictive lung disease, diabetes, gastritis,? hypogammaglobulinemia, scoliosis, mitochondrial myopathy, HLD, who presents to the hospital with complaints of Port-A-Cath site drainage.? Patient reports that she has a chronic port for IVIG? infusions.? She states that the port was removed on 12/29, the removal was slightly complicated as the port had to be taken out due to malposition.? She has had that port for 3 years.? She reports that the doctor that removed it had to tug and was difficult to remove.? She states that glue was used to stitch the insertion site, when the glue came off today she noticed that the wound was draining.? She states that the draining was clear, not serosanguineous.? She did not notice any pus.? But reports that there is pain at the site, slight redness, as well as shoulder? and right arm pain.? She denies having any fever or chills.? No chest pain, no shortness of breath, no abdominal pain nausea or vomiting, no diarrhea constipation,? urinary symptoms and no lower extremity edema.? On arrival to the ED patient hemodynamically stable with no significant abnormal vitals?labs are significant for WBC count of 6.3, otherwise unremarkable,?CT of the chest shows fluid collection in the right anterior chest wall at the site of prior chest wall port, mild surrounding inflammatory change.?patient started on IV antibiotics and will be admitted for further management Hospital course Patient was admitted for treatment of cellulitis of chest wall /incisional infection. evaluated by gen surgery appreciated, no clear abscess, follow gram stain and cultures which remained negative during hospital stay as the patient was treated with IV Vancomycin and local care with good response as erythema and tenderness in the area decreased significantly. Continue Augmentin and Doxycycline for 1 more week To follow up with PCP as outpatient in 1-2 weeks Time Spent with Patient Time attestation: Total time managing care of this patient today ____ minutes. Discharge coordination time: Greater than 30 minutes Quality: Safe Use of Opioids Does Pt have an Active Cancer Diagnosis on the Problem List?: No Quality: Stroke Does the patient have a stroke diagnosis?: No Physical Exam Vital Signs: Vital Signs: Last Vital Signs Temp 97.2 F 01/05/23 07:10 Pulse 60 01/05/23 07:10 Resp 17 01/05/23 07:10 BP 155/78 H 01/05/23 07:10 Pulse Ox 97 01/05/23 07:10 O2 Del Method Room Air 01/05/23 07:10 BMI result Body Mass Index 37.8 Const: Other: Constitutional : Awake, interactive, not in distress Neck : Normal inspection, Supple Cardiovascular : RRR, no JVP, no lower extremity edema Respiratory : good bilateral air entry, no crackles, wheezes or rhonchi Gastrointestinal: soft, lax, Normal bowel sounds, Non tender Skin : Warm, Dry, chest wall no significant tenderness over right side of chest , wound covered with dressing, no erythema , no drainage noted Neurological : Alert & oriented x3, No focal deficit DS: Data Data Completed and Pending Labs on day of discharge: Laboratory Results - last 24 hr 01/04/23 01/04/23 01/04/23 10:56 11:14 16:29 Creatinine Estim Creat Clear Calc Estimated GFR POC Glucose 167 H 208 H Vancomycin Trough 9.8 L 01/04/23 01/05/23 01/05/23 20:16 05:00 07:08 Creatinine 0.68 Estim Creat Clear Calc 109.9 Estimated GFR > 60 POC Glucose 214 H 165 H Vancomycin Trough Preliminary micro results at discharge 01/02/23 23:07 Blood Culture - Preliminary Blood - Venous No growth after 48 hours. 01/02/23 23:07 Blood Culture - Preliminary Blood - Venous No growth after 48 hours. Imaging Chest x-ray: Radiologist's impression: ITS Impressions Chest CT 01/02/23 20:28 IMPRESSION: 1. Small fluid collection in the right anterior chest wall at the site of prior chest wall port. Mild surrounding inflammatory change. 2. No acute pulmonary finding. Fleischner guidelines were followed. Discharge Plan Discharge Anticipated Discharge Date/Time: 01/05/23 09:56 Patient Disposition: Home, Self-Care Discharge Diagnosis: skin infection Referrals: Cassius Strong MD [Primary Care Provider] - 1 Week Discharge Medications: New amoxicillin-pot clavulanate 875-125 mg tablet 1 tab PO BID Qty: 14 0RF doxycycline monohydrate 100 mg capsule 100 mg PO BID Qty: 14 0RF Continued (DME) lancets [FreeStyle Lancets] 28 gauge misc See Rx Instructions .MEDSUPPLY Qty: 150 4RF Rx Instructions: 5 times a day ferrous sulfate [FeroSul] 325 mg (65 mg iron) tablet 325 mg PO DAILY Qty: 90 0RF levalbuterol tartrate [Xopenex HFA] 45 mcg/actuation HFA aerosol inhaler 2 puff inhalation Q6H PRN (Reason: shortness of breath or wheezing) 30 Days Qty: 15 11RF Fiasp FlexTouch U-100 Insulin 100 unit/mL (3 mL) insulin pen See Rx Instructions subcut .COMPLEX 30 Days Qty: 150 5RF Rx Instructions: Inject 5 to 20 units SQ before meals and snacks, FOUR TIMES A DAY metformin 500 mg tablet extended release 24 hr 1,000 mg PO BID 30 Days Qty: 120 5RF (DME) DIABETIC SHOES See Rx Instructions .Route .MEDSUPPLY Qty: 1 0RF Rx Instructions: DIABETIC SHOES - 1 PAIR - use as directed -- Dx: E11.9 -- diabetes mellitus metoprolol succinate 50 mg tablet extended release 24 hr 50 mg PO DAILY Qty: 90 3RF montelukast 10 mg tablet 10 mg PO BEDTIME 90 Days Qty: 90 3RF levothyroxine [Synthroid] 112 mcg tablet 224 mcg PO DAILY Qty: 60 5RF cholecalciferol (vitamin D3) 50 mcg (2,000 unit) capsule 100 mcg PO DAILY 90 Days Qty: 180 1RF hydromorphone 2 mg tablet 1 tab PO BID atorvastatin 40 mg tablet 40 mg PO BEDTIME tizanidine 2 mg tablet 2 mg PO BEDTIME omeprazole 40 mg capsule,delayed release(DR/EC) 40 mg PO BEDTIME pyridostigmine bromide 60 mg tablet 60 mg PO TID losartan 25 mg tablet 25 mg PO BEDTIME ibuprofen 600 mg tablet 600 mg PO BID PRN (Reason: for pain) loratadine 10 mg tablet 10 mg PO DAILY calcium citrate 250 mg calcium tablet 500 mg PO DAILY Gammagard S-D (IgA < 1 mcg/mL) 5 gram recon soln 40 g IV Q3W Fasenra 30 mg/mL syringe 30 mg subcut Q8W ipratropium bromide 42 mcg (0.06 %) spray,non-aerosol 2 spray intranasal BID insulin degludec [Tresiba FlexTouch U-100] 100 unit/mL (3 mL) insulin pen 5 unit subcut DAILY Qty: 15 5RF (DME) pen needle, diabetic [Easy Comfort Pen Graham] 33 gauge x 5/32 needle See Rx Instructions .Route Qty: 100 5RF Rx Instructions: As directed inmjects 4 X/day (DME) FreeStyle Lite Strips Strip See Rx Instructions .Route Qty: 100 5RF Rx Instructions: As directed- checks 4-5 X/day levalbuterol HCl 1.25 mg/3 mL solution for nebulization 1.25 mg inhalation BID 30 Days Qty: 180 11RF Discharge Orders: Discharge Order (Routine); Ordered 01/05/23 Ordered By: Jonatan Carias Diet: Advance to usual diet Activity on Discharge: As tolerated Stand Alone Forms: Patient Portal Discharge page Care Plan Goals: Read below Health Concerns: Read below Plan of Treatment: Read below Assessment: You were admitted to the hospital for chest wall skin infection after removal of a line. treated with IV antibiotics as you were evaluated by a surgeon. blood and wound cultures remained negative. Continue Augmentin and Doxycycline for 1 more week To follow up with PCP as outpatient in 1-2 weeks
--- NOTE | 2023-01-05 10:48 | MHC.CM.PN ---
IMM 01/03/23 Female 52 S/P port removal for infection. She is discharged home today. [facility] services will resume. Patients [facility] will pick her up within the hour.
[2023-01-05 11:20] LABS: Glucose, Whole Blood 224 mg/dL (60-115)
[2023-01-05 12:09] LABS: Vancomycin Random 16.5 mcg/mL (15-20)
--- NOTE | 2023-01-05 12:19 | HE.PHANOTE ---
Vancomycing Dosing Level increased from 9.8 to 16.5 after increase in dose. Renal function is stable. Current regimen is expected to be supratherapuetic so we will decrease dose to 1250 mg Q12H. Next level scheduled for 01/06 @ 1100. Tiff Mccormick, RicardoD
== END 2023-01-05 12:42 | disposition home or self-care (01) | DRG 863 ==
LOC: HO.ED 01-03 00:06 → HO.S3 01-03 00:24 → HO.EDOVER 01-03 00:33 → HO.S3 01-03 04:00
PROVIDERS: Internal Medicine; Nurse Practitioner Family; Physician Assistant; Surgery; Admitting Provider Internal Medicine; Emergency Provider Emergency Medicine Emergency Medical Services; PCP Internal Medicine; Visit Provider Student in an Organized Health Care Education/Training Program
DX: T81.41XA Infection following a procedure, superficial incisional surgical site, initial encounter (principal); L03.313 Cellulitis of chest wall; D80.1 Nonfamilial hypogammaglobulinemia; E78.00 Pure hypercholesterolemia, unspecified; I49.8 Other specified cardiac arrhythmias; G89.29 Other chronic pain; J45.20 Mild intermittent asthma, uncomplicated; E03.9 Hypothyroidism, unspecified; G71.3 Mitochondrial myopathy, not elsewhere classified; I10 Essential (primary) hypertension; E66.9 Obesity, unspecified; Z68.37 Body mass index [BMI] 37.0-37.9, adult; Z20.822 Contact with and (suspected) exposure to COVID-19; Z91.040 Latex allergy status; Z88.1 Allergy status to other antibiotic agents; Z88.5 Allergy status to narcotic agent; Z88.6 Allergy status to analgesic agent; Z79.4 Long term (current) use of insulin; Z79.84 Long term (current) use of oral hypoglycemic drugs; Z79.890 Hormone replacement therapy; Z79.899 Other long term (current) drug therapy
CPT/HCPCS: 36415; 71250; 80048; 80053; 80202; 81003; 82565; 82947; 83036; 83605; 83880; 84484; 85025; 85027; 85379; 85610; 85730; 87040; 87070; 87205; 87635; 93005; 99285; J0692; J1170; J2405; J2543; J3370; J3371

== ENCOUNTER → 2023-03-03 15:17 | Outpatient (BNVA) | payer OTHER, SELFPAY | PROVIDERS: PCP Internal Medicine; Visit Provider Internal Medicine Endocrinology, Diabetes & Metabolism | DX: E13.8 Other specified diabetes mellitus with unspecified complications (principal); E28.2 Polycystic ovarian syndrome; E03.9 Hypothyroidism, unspecified; I10 Essential (primary) hypertension; E78.5 Hyperlipidemia, unspecified; Z83.3 Family history of diabetes mellitus; Z79.85 Long-term (current) use of injectable non-insulin antidiabetic drugs; Z79.899 Other long term (current) drug therapy | CPT/HCPCS: 82947; 99212 ==

== ENCOUNTER 2023-03-09 13:49 | Outpatient (REF) | payer OTHER, SELFPAY ==
[2023-03-09 14:42] LABS: MANUAL DIFF FLAG NO
[2023-03-09 15:08] LABS: Basophils Percent Auto 0.2 % (0-2); Hematocrit 35.1 % (37.0-47.0); Hemoglobin 11.7 g/dl (12.0-16.0); Imm Gran Abs Auto 0.02 X10*3/uL (0.00-0.03); Imm Gran Pct Auto 0.3 % (0.0-0.4); Lymphocytes Absolute Auto 2.3 X10*3/uL (1.2-4.9); Lymphocytes Percent Auto 39.4 % (20-40); Mean Corpuscular HGB Conc 33.3 g/dl (31.0-35.0); Mean Corpuscular Hemoglobin 27.8 pg (27.0-33.0); Mean Corpuscular Volume 83.4 fL (80.0-98.0); Monocytes Absolute Auto 0.5 X10*3/uL (0.1-1.2); Monocytes Percent Auto 9.2 % (2-11); Neutrophils Percent Auto 50.9 % (45-73); Platelet Count 164 X10*3/uL (160-400); Red Blood Count 4.21 X10*6/uL (4.20-5.50); White Blood Count 5.8 X10*3/uL (4.8-10.8)
[2023-03-09 15:17] LABS: Estimated Average Glucose 183 mg/dL
[2023-03-09 15:38] LABS: Alanine Aminotransferase 46 U/L (0-31); Albumin Level 4.2 g/dL (3.5-5.0); Alkaline Phosphatase 87 U/L (39-117); Anion Gap 13 (12-20); Aspartate Amino Transferase 33 U/L (5-31); Bilirubin Total 0.7 mg/dL (0.0-1.0); Blood Urea Nitrogen 18 mg/dL (9-16); Calcium 9.4 mg/dL (8.4-10.2); Carbon Dioxide 26 mmol/L (22-29); Chloride 103 mmol/L (96-108); Estimated Glomerular Filt Rate > 60; Glucose Random 157 mg/dL (60-115); Iron 84 mcg/dL (30-160); Percent Iron Saturation 24 % (15-50); Potassium 4.4 mmol/L (3.3-5.1); Sodium 138 mmol/L (135-145); Total Iron Binding Capacity 350 mcg/dL (228-428); Total Protein 7.2 g/dL (6.5-8.0); Unsaturated Iron Binding 266 ug/dL
[2023-03-09 15:54] LABS: TSH reflex Free T4 1.09 uIU/mL (0.32-4.0)
[2023-03-09 16:00] LABS: Erythrocyte Sedimentation Rate 7 MM/HR (0-20)
[2023-03-14 17:33] LABS: Immunoglobulin E 20 kU/L (<OR=114)
[2023-03-16 12:34] LABS: Immunoglobulin G Subclass 1 608 mg/dL (382-929); Immunoglobulin G Subclass 2 473 mg/dL (241-700); Immunoglobulin G Subclass 3 59 mg/dL (22-178); Immunoglobulin G Subclass 4 19.8 mg/dL (4-86); Immunoglobulin G Total 1172 mg/dL (600-1640)
== END 2023-03-09 13:50 | disposition home or self-care (01) ==
LOC: CF 13:49
PROVIDERS: PCP Internal Medicine; Visit Provider Hospitalist
DX: J45.40 Moderate persistent asthma, uncomplicated (principal); D80.1 Nonfamilial hypogammaglobulinemia; J98.4 Other disorders of lung; G47.33 Obstructive sleep apnea (adult) (pediatric); D50.9 Iron deficiency anemia, unspecified; E55.9 Vitamin D deficiency, unspecified; I10 Essential (primary) hypertension; E11.9 Type 2 diabetes mellitus without complications; E78.00 Pure hypercholesterolemia, unspecified
CPT/HCPCS: 36415; 80053; 82306; 82784; 82785; 83036; 83540; 84443; 85025; 85652; 86003; 99212

== ENCOUNTER → 2023-03-29 10:53 | Outpatient (BNVA) | payer OTHER, SELFPAY | PROVIDERS: PCP Internal Medicine; Referring Provider Internal Medicine; Visit Provider Surgery | DX: D17.9 Benign lipomatous neoplasm, unspecified (principal) | CPT/HCPCS: 99202 ==

== ENCOUNTER 2023-04-21 09:35 | Outpatient (REF) | payer OTHER, SELFPAY | END 2023-04-21 09:36 | disposition home or self-care (01) | LOC: HO.LNP 09:35 | PROVIDERS: PCP Internal Medicine; Visit Provider Surgery | DX: D17.23 Benign lipomatous neoplasm of skin and subcutaneous tissue of right leg (principal); Z79.899 Other long term (current) drug therapy | CPT/HCPCS: 11402; 11403; 88304; 99212 ==

== ENCOUNTER 2023-04-28 10:46 | Outpatient (AMB) | payer OTHER, SELFPAY ==
[2023-04-28 11:01] VITALS: BP 170/80; PULSE 71
--- NOTE | 2023-04-28 11:01 | MHC.OFFVIS ---
Intake Vital Signs 04/28/23 11:01 Weight 227 lb BP 170/80 H Blood Pressure Location Rt brachial Position Sitting Pulse 71 Intake Visit Reasons: Follow Up exc rt thigh mass x 2 Intake Note: Patient here s/p exc X2 on Rt lat thigh. Patient reports incisions healing well. Patient thinks there's a couple stitches coming up. Reports she has had spitting sutures in the past from prior procedures. C/o small area with yellowish discharge. Service Mechanic Required: No Accompanied by: grand daughter Allergies latex [LATEX] Allergy (Severe, Verified 04/28/23 11:04) DIFFICULTY BREATHING levofloxacin [From LEVAQUIN] Allergy (Severe, Verified 04/28/23 11:04) SHORTNESS OF BREATH, RASH, rash morphine [MORPHINE] Allergy (Severe, Verified 04/28/23 11:04) RASH, asthma exacerbation, rash baclofen [BACLOFEN] Allergy (Intermediate, Verified 04/28/23 11:04) RASH celecoxib [Celebrex] Allergy (Intermediate, Verified 04/28/23 11:04) itching, rash, flushing prednisone [PREDNISONE] Allergy (Intermediate, Verified 04/28/23 11:04) RASH, asthma exacerbation, rash sulfamethoxazole [From Bactrim] Allergy (Intermediate, Verified 04/28/23 11:04) vertigo trimethoprim [From Bactrim] Allergy (Intermediate, Verified 04/28/23 11:04) vertigo codeine Allergy (Unknown, Verified 04/28/23 11:04) Rash gluten [GLUTEN] Allergy (Unknown, Verified 04/28/23 11:04) UNKNOWN oxycodone Allergy (Unknown, Verified 04/28/23 11:04) rash ranitidine Allergy (Unknown, Verified 04/28/23 11:04) unknown roflumilast [Daliresp] Allergy (Unknown, Verified 04/28/23 11:04) rash tramadol [TRAMADOL] Allergy (Unknown, Verified 04/28/23 11:04) RASH,SHORTNESS OF BREATH AND HEADACHE, asthma exacerbation, rash cephalexin Adverse Reaction (Intermediate, Verified 04/28/23 11:04) Difficulty Breathing diazepam [From Valium] Adverse Reaction (Verified 04/28/23 11:04) Cough celery, pinapple, strawberries Allergy (Unknown, Uncoded 04/28/23 11:04) rash ENVIROMENTAL Allergy (Unknown, Uncoded 04/28/23 11:04) CLEANING PRODUCTS CAUSE ASTHMA ATTACK Flexeril Allergy (Unknown, Uncoded 04/28/23 11:04) asthma exacerbation, rash HPI HPI Comments History of Present Illness Details Patient presents with her granddaughter. Aside from mild incisional discomfort patient is doing well. Pathology is benign. [facility] Medical History Acquired hypothyroidism Anemia Asthma Asthma Benign essential hypertension Brugada syndrome Cellulitis of both lower extremities Chronic restrictive lung disease Diabetes mellitus Encounter for care related to Port-a-Cath Gastritis History of revision of total replacement of right hip joint (~12/2019) HTN (hypertension) Hx of cataract Hypogammaglobulinemia Hypothyroidism Lumbar degenerative disc disease Mitochondrial myopathy Obesity (BMI 30-39.9) CHARLES (obstructive sleep apnea) Osteoarthritis of hip Osteopenia Pain of both hip joints Pure hypercholesterolemia Recurrent cellulitis of lower extremity Right hip pain Shortness of breath Tinea pedis Surgical History History of elbow surgery (~07/2016) History of eye surgery (~09/2017) History of hip surgery History of removal of cyst History of removal of Port-a-Cath History of total right hip arthroplasty (~06/03/19) Hx of appendectomy Hx of bilateral breast reduction surgery Hx of foot surgery (~01/02/19) Hx of hysterectomy (~07/2011) Hx of left knee surgery Hx of thumb surgery Family History Father Leukemia Mother Hypertension Diabetes Sister Alive and well Brother Pancreatic cancer Paternal Grandmother Stomach cancer Paternal Grandmother Throat cancer Social History Household Members: Spouse Housing: Apartment Do you presently have visiting nurse or other home services: No Alcohol intake: former Patient Tobacco Use Status: Never used Tobacco e-Cigarette/Vaping Use: Never Used Second Hand Smoke Exposure: No service: No Current occupational status: disabled Cognitive needs: No Hearing needs: No Vision needs: No Physical Exam Vital Signs: Last Vital Signs Pulse 71 04/28/23 11:01 BP 170/80 H 04/28/23 11:01 Extrem Other: Both wounds are clean dry and intact. Each 1 is extruding the proximal end of the suture and they were respectively removed. Assessment & Plan Assessment & Plan (1) Lipoma: Comment: Patient has been given local wound instructions including avoiding strenuous activities, may shower in 2 days, removal any outside dressing only Steri-Strips intact, Motrin analgesia and will see me as directed or p.r.n.. Ice pack to wound p.r.n.. Code(s): D17.9 - Benign lipomatous neoplasm, unspecified Plan Patient has been given local instructions, and will follow-up p.r.n. Coding Level of Care Code Global (87089) Diagnoses Lipoma D17.9
== END 2023-04-28 11:10 | disposition home or self-care (01) ==
PROVIDERS: PCP Internal Medicine; Visit Provider Surgery
DX: D17.9 Benign lipomatous neoplasm, unspecified (principal)
CPT/HCPCS: 99024

== ENCOUNTER → 2023-04-28 10:46 | Outpatient (BNVA) | payer OTHER, SELFPAY | PROVIDERS: PCP Internal Medicine; Visit Provider Surgery ==

== ENCOUNTER 2023-05-01 13:12 | Outpatient (AMB) | payer OTHER, SELFPAY ==
--- NOTE | 2023-05-01 13:15 | MHC.OFFVIS ---
Intake Vital Signs 05/01/23 13:16 Weight 227 lb BP 170/80 H Blood Pressure Location Rt brachial Position Sitting Pulse 80 Intake Visit Reasons: wound check, s/p excision thigh mass Intake Note: Patient here s/p exc on Rt lat thigh. Patient reports superior incision opened up. C/o mild discharge. Denies pain or itch. Court Abstractor Required: No Accompanied by: daughter in law Allergies latex [LATEX] Allergy (Severe, Verified 05/01/23 13:17) DIFFICULTY BREATHING levofloxacin [From LEVAQUIN] Allergy (Severe, Verified 05/01/23 13:17) SHORTNESS OF BREATH, RASH, rash morphine [MORPHINE] Allergy (Severe, Verified 05/01/23 13:17) RASH, asthma exacerbation, rash baclofen [BACLOFEN] Allergy (Intermediate, Verified 05/01/23 13:17) RASH celecoxib [Celebrex] Allergy (Intermediate, Verified 05/01/23 13:17) itching, rash, flushing prednisone [PREDNISONE] Allergy (Intermediate, Verified 05/01/23 13:17) RASH, asthma exacerbation, rash sulfamethoxazole [From Bactrim] Allergy (Intermediate, Verified 05/01/23 13:17) vertigo trimethoprim [From Bactrim] Allergy (Intermediate, Verified 05/01/23 13:17) vertigo codeine Allergy (Unknown, Verified 05/01/23 13:17) Rash gluten [GLUTEN] Allergy (Unknown, Verified 05/01/23 13:17) UNKNOWN oxycodone Allergy (Unknown, Verified 05/01/23 13:17) rash ranitidine Allergy (Unknown, Verified 05/01/23 13:17) unknown roflumilast [Daliresp] Allergy (Unknown, Verified 05/01/23 13:17) rash tramadol [TRAMADOL] Allergy (Unknown, Verified 05/01/23 13:17) RASH,SHORTNESS OF BREATH AND HEADACHE, asthma exacerbation, rash cephalexin Adverse Reaction (Intermediate, Verified 05/01/23 13:17) Difficulty Breathing diazepam [From Valium] Adverse Reaction (Verified 05/01/23 13:17) Cough celery, pinapple, strawberries Allergy (Unknown, Uncoded 05/01/23 13:17) rash ENVIROMENTAL Allergy (Unknown, Uncoded 05/01/23 13:17) CLEANING PRODUCTS CAUSE ASTHMA ATTACK Flexeril Allergy (Unknown, Uncoded 05/01/23 13:17) asthma exacerbation, rash HPI HPI Comments History of Present Illness Details Patient presents with a family member. Will doing some excessive bending, she felt a pop and her right proximal lateral thigh wound open. [facility] Medical History Acquired hypothyroidism Anemia Asthma Asthma Benign essential hypertension Brugada syndrome Cellulitis of both lower extremities Chronic restrictive lung disease Diabetes mellitus Encounter for care related to Port-a-Cath Gastritis History of revision of total replacement of right hip joint (~12/2019) HTN (hypertension) Hx of cataract Hypogammaglobulinemia Hypothyroidism Lumbar degenerative disc disease Mitochondrial myopathy Obesity (BMI 30-39.9) CHARLES (obstructive sleep apnea) Osteoarthritis of hip Osteopenia Pain of both hip joints Pure hypercholesterolemia Recurrent cellulitis of lower extremity Right hip pain Shortness of breath Tinea pedis Surgical History History of elbow surgery (~07/2016) History of eye surgery (~09/2017) History of hip surgery History of removal of cyst History of removal of Port-a-Cath History of total right hip arthroplasty (~06/03/19) Hx of appendectomy Hx of bilateral breast reduction surgery Hx of foot surgery (~01/02/19) Hx of hysterectomy (~07/2011) Hx of left knee surgery Hx of thumb surgery Family History Father Leukemia Mother Hypertension Diabetes Sister Alive and well Brother Pancreatic cancer Paternal Grandmother Stomach cancer Paternal Grandmother Throat cancer Social History Household Members: Spouse Housing: Apartment Do you presently have visiting nurse or other home services: No Alcohol intake: former Patient Tobacco Use Status: Never used Tobacco e-Cigarette/Vaping Use: Never Used Second Hand Smoke Exposure: No service: No Current occupational status: disabled Cognitive needs: No Hearing needs: No Vision needs: No Physical Exam Vital Signs: Last Vital Signs Pulse 80 05/01/23 13:16 BP 170/80 H 05/01/23 13:16 Extrem Other: Exam is most noteworthy for opening of the right proximal thigh wound. No evidence of any infection. Distal thigh wound is clean dry and intact. Assessment & Plan Assessment & Plan (1) Lipoma: Comment: Patient has been given local wound instructions including avoiding strenuous activities, may shower in 2 days, removal any outside dressing only Steri-Strips intact, Motrin analgesia and will see me as directed or p.r.n.. Ice pack to wound p.r.n.. Code(s): D17.9 - Benign lipomatous neoplasm, unspecified Plan Patient was reassured. Will take 1-2 weeks for this to heal by secondary intention. Bacitracin and sterile dressing were applied. These instructions were given to the patient she will follow-up p.r.n.. Coding Level of Care Code Global (78307) Diagnoses Lipoma D17.9
[2023-05-01 13:16] VITALS: BP 170/80; PULSE 80
== END 2023-05-01 13:18 | disposition home or self-care (01) ==
PROVIDERS: PCP Internal Medicine; Visit Provider Surgery
DX: D17.9 Benign lipomatous neoplasm, unspecified (principal)
CPT/HCPCS: 99024

== ENCOUNTER → 2023-05-01 13:12 | Outpatient (BNVA) | payer OTHER, SELFPAY | PROVIDERS: PCP Internal Medicine; Visit Provider Surgery ==

== ENCOUNTER 2023-08-28 10:37 | Outpatient (AMB) | payer OTHER, SELFPAY ==
[2023-08-28 10:41] VITALS: BP 120/80; PULSE 84; BMI 38.6
--- NOTE | 2023-08-28 10:41 | MHC.OFFVIS ---
Intake Vital Signs 08/28/23 10:41 Height 5 ft 4 in Weight 224 lb 13.944 oz BMI 38.6 BP 120/80 Blood Pressure Location Lt brachial Position Sitting Pulse 84 Intake Visit Reasons: 1 yr f/u Intake Note: 1 year follow-up with ekg still has sob with stairs Edger Liner Required: No Allergies latex [LATEX] Allergy (Severe, Verified 05/01/23 13:17) DIFFICULTY BREATHING levofloxacin [From LEVAQUIN] Allergy (Severe, Verified 05/01/23 13:17) SHORTNESS OF BREATH, RASH, rash morphine [MORPHINE] Allergy (Severe, Verified 05/01/23 13:17) RASH, asthma exacerbation, rash baclofen [BACLOFEN] Allergy (Intermediate, Verified 05/01/23 13:17) RASH celecoxib [Celebrex] Allergy (Intermediate, Verified 05/01/23 13:17) itching, rash, flushing prednisone [PREDNISONE] Allergy (Intermediate, Verified 05/01/23 13:17) RASH, asthma exacerbation, rash sulfamethoxazole [From Bactrim] Allergy (Intermediate, Verified 05/01/23 13:17) vertigo trimethoprim [From Bactrim] Allergy (Intermediate, Verified 05/01/23 13:17) vertigo codeine Allergy (Unknown, Verified 05/01/23 13:17) Rash gluten [GLUTEN] Allergy (Unknown, Verified 05/01/23 13:17) UNKNOWN oxycodone Allergy (Unknown, Verified 05/01/23 13:17) rash ranitidine Allergy (Unknown, Verified 05/01/23 13:17) unknown roflumilast [Daliresp] Allergy (Unknown, Verified 05/01/23 13:17) rash tramadol [TRAMADOL] Allergy (Unknown, Verified 05/01/23 13:17) RASH,SHORTNESS OF BREATH AND HEADACHE, asthma exacerbation, rash cephalexin Adverse Reaction (Intermediate, Verified 05/01/23 13:17) Difficulty Breathing diazepam [From Valium] Adverse Reaction (Verified 05/01/23 13:17) Cough celery, pinapple, strawberries Allergy (Unknown, Uncoded 05/01/23 13:17) rash ENVIROMENTAL Allergy (Unknown, Uncoded 05/01/23 13:17) CLEANING PRODUCTS CAUSE ASTHMA ATTACK Flexeril Allergy (Unknown, Uncoded 07/17/23 13:17) asthma exacerbation, rash Medication List - Last Reconciled 08/28/23 by Spencer Wright MD atorvastatin 40 mg PO BEDTIME benralizumab (Fasenra) 30 mg subcut Q8W blood pressure monitor As directed blood sugar diagnostic (FreeStyle Lite Strips) As directed- checks 4-5 X/day calcium citrate 500 mg (2 x 250 mg calcium) PO BID 30 days cholecalciferol (vitamin D3) 100 mcg (2 x 50 mcg (2,000 unit)) PO DAILY 90 days clotrimazole 10 mg mucous membrane TID [DIABETIC SHOES DIABETIC SHOES - 1 PAIR - use as directed -- Dx: E11.9 -- diabetes mellitus] ferrous sulfate (FeroSul) 325 mg PO DAILY Fiasp FlexTouch U-100 Insulin 100 unit/mL (3 mL) (insulin aspart (niacinamide)) Inject 5 to 20 units SQ before meals and snacks, FOUR TIMES A DAY 30 days NS fluconazole 200 mg PO DAILY hydromorphone 2 mg PO TID PRN 7 days ibuprofen 600 mg PO BID PRN immun glob M-crj-ocqi-IgA 0-50 5 gram (Gammagard S-D (IgA < 1 mcg/mL)) 40 grams IV Q3W insulin degludec (Tresiba FlexTouch U-100 insulin) 5 units (0.05 mL) subcut DAILY ipratropium bromide 2 sprays intranasal BID lancets (FreeStyle Lancets) 5 times a day levalbuterol HCl 1.25 mg (3 mL) inhalation BID 30 days levalbuterol tartrate 45 mcg/actuation (Xopenex HFA) 2 puffs inhalation Q6H PRN 30 days loratadine 10 mg PO DAILY PRN 90 days losartan 25 mg PO BEDTIME metformin ER 1,000 mg (2 x 500 mg) PO BID 30 days metoprolol succinate ER 50 mg PO DAILY montelukast 10 mg PO BEDTIME 90 days nebulizers As directed nystatin 10 mL buccal TID 10 days omeprazole 40 mg PO BEDTIME ondansetron 8 mg PO Q8H PRN 10 days pen needle, diabetic (Easy Comfort Pen Hildreth) As directed inmjects 4 X/day pyridostigmine bromide 60 mg PO TID Synthroid (levothyroxine) 224 mcg (2 x 112 mcg) PO DAILY NS tizanidine 2 mg PO TID PRN HPI HPI Comments History of Present Illness Details Deysi comes for follow-up. She has no history of palpitations, lightheadedness, syncope. She continues to exertional shortness of breath and says that she is not able to exercise much due to her arthritis and spine issues. 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 She also has underlying asthma. She takes all her medications. No exertional chest pain. [facility] Medical History Acquired hypothyroidism Anemia Asthma Asthma Benign essential hypertension Brugada syndrome Cellulitis of both lower extremities Chronic restrictive lung disease Diabetes mellitus Encounter for care related to Port-a-Cath Gastritis History of revision of total replacement of right hip joint (~12/2019) HTN (hypertension) Hx of cataract Hypogammaglobulinemia Hypothyroidism Lumbar degenerative disc disease Mitochondrial myopathy Obesity (BMI 30-39.9) CHARLES (obstructive sleep apnea) Osteoarthritis of hip Osteopenia Pain of both hip joints Pure hypercholesterolemia Recurrent cellulitis of lower extremity Right hip pain Shortness of breath Tinea pedis Surgical History History of elbow surgery (~07/2016) History of eye surgery (~09/2017) History of hip surgery History of removal of cyst History of removal of Port-a-Cath History of total right hip arthroplasty (~06/03/19) Hx of appendectomy Hx of bilateral breast reduction surgery Hx of foot surgery (~01/02/19) Hx of hysterectomy (~07/2011) Hx of left knee surgery Hx of thumb surgery Family History Father Leukemia Mother Hypertension Diabetes Sister Alive and well Brother Pancreatic cancer Paternal Grandmother Stomach cancer Paternal Grandmother Throat cancer Social History Household Members: Spouse Housing: Apartment Do you presently have visiting nurse or other home services: No Alcohol intake: former Patient Tobacco Use Status: Never used Tobacco e-Cigarette/Vaping Use: Never Used Second Hand Smoke Exposure: No service: No Current occupational status: disabled Cognitive needs: No Hearing needs: No Vision needs: No Review of Systems Const Denies chills, Denies fatigue, Denies fever(s), Denies frequent falls, Denies weakness, Denies weight gain and Denies weight loss ENT Denies dizziness Card Denies chest pain, Denies leg edema, Denies lightheadedness, Denies palpitations, Denies dyspnea, Denies dyspnea on exertion, Denies orthopnea and Denies other (loss of consciousness) Resp Denies cough, Denies dyspnea and Denies dyspnea on exertion GI Denies hematochezia and Denies change in stool character Musc Denies abnormal gait, Denies muscle weakness, Denies numbness, Denies radiating pain into limb and Denies tingling Neuro Denies abnormal gait, Denies dizziness, Denies frequent falls, Denies numbness, Denies tingling and Denies weakness Endo Denies fatigue and Denies palpitations Physical Exam Vital Signs: Last Vital Signs Pulse 84 08/28/23 10:41 BP 120/80 08/28/23 10:41 BMI result Body Mass Index 38.6 Const General: cooperative, no acute distress, alert and awake Orientation/consciousness: patient oriented x3 Neck Neck: Yes normal visual inspection and Yes no JVD Resp Effort & Inspection: normal respiratory effort, able to speak in complete sentences and not labored Auscultation: clear to auscultation bilaterally, no crackles, no rales, no rhonchi, no wheezes and diminished lung sounds Cardio Rate: regular rate Rhythm: regular rhythm Heart sounds: S1 normal heart sound present and S2 normal heart sound present Peripheral pulses: Peripheral pulses 2+ throughout GI Inspection: Yes normal to inspection Neuro General: patient oriented x3 Extrem General: Yes normal to inspection and No edema Office Procedures EKG Details: EKG shows normal sinus rhythm with right bundle-branch block with left axis deviation LVH criteria with no clear Brugada pattern on this EKG [id number], Complete Assessment & Plan Assessment & Plan (1) Abnormal EKG: Code(s): R94.31 - Abnormal electrocardiogram [ECG] [EKG] Plan: Abnormal EKG in the past suggestive Brugada pattern on the EKG. Today's EKG does not show any evidence of regards it was showed right bundle-branch block. Continue metoprolol therapy. Avoid hypermetabolic states and if develops hypermetabolic status such as a febrile illness should be treated aggressively. No other treatment is recommended. Her exertional shortness of breath is related to pulmonary parenchymal disease as well as restrictive pulmonary defect related to thoracic cage abnormality as well as deconditioning. Will follow up in 1 year's time. Medications: Changed From clotrimazole 10 mg mucous membrane TID 7 days 21 tabs 0RF To clotrimazole 10 mg mucous membrane TID From fluconazole 200 mg PO DAILY 7 days 7 tabs 0RF To fluconazole 200 mg PO DAILY Coding Level of Care Code Est Pt Level 3 (58317) Diagnoses Abnormal EKG R94.31 CPT Codes EKG - CPT: 28144-[id number], Complete ([id number])
== END 2023-08-28 11:05 | disposition home or self-care (01) ==
PROVIDERS: Visit Provider Internal Medicine Cardiovascular Disease
DX: R94.31 Abnormal electrocardiogram [ECG] [EKG] (principal)
CPT/HCPCS: 93010; 99213

== ENCOUNTER 2023-08-28 10:37 | Outpatient (REF) | payer OTHER, SELFPAY ==
[2023-08-28 11:23] LABS: MANUAL DIFF FLAG NO
[2023-08-28 12:02] LABS: Hematocrit 33.6 % (37.0-47.0); Hemoglobin 10.7 g/dl (12.0-16.0); Imm Gran Abs Auto 0.01 X10*3/uL (0.00-0.03); Imm Gran Pct Auto 0.2 % (0.0-0.4); Lymphocytes Absolute Auto 1.5 X10*3/uL (1.2-4.9); Lymphocytes Percent Auto 25.8 % (20-40); Mean Corpuscular HGB Conc 31.8 g/dl (31.0-35.0); Mean Corpuscular Hemoglobin 26.3 pg (27.0-33.0); Mean Corpuscular Volume 82.6 fL (80.0-98.0); Mean Platelet Volume 11.1 fL (9.4-12.3); Monocytes Absolute Auto 0.5 X10*3/uL (0.1-1.2); Neutrophils Absolute Auto 3.9 x10*3/uL (2.0-8.3); Platelet Count 130 X10*3/uL (160-400); Red Blood Count 4.07 X10*6/uL (4.20-5.50); Red Cell Distribution Width 13.8 % (11.0-16.0); White Blood Count 5.9 X10*3/uL (4.8-10.8)
[2023-08-28 12:07] LABS: Appearance Urine Clear; Color Urine Yellow; Glucose Urine UA Negative (Negative); Leukocyte Esterase Urine Trace (Negative); Nitrite Urine Negative (Negative); PH 5.5 (5.0-9.0); UMIC TRIGGER UACC YES; Urine Blood Negative (Negative); Urine Ketones Negative (Negative); Urine Protein Negative (Neg-Trace)
[2023-08-28 12:10] LABS: Bacteria Urine None Seen (None Seen); Hyaline Casts Urine 0-2 /LPF (0-2); RBC Urine 0-2 /HPF (0-2); WBC Urine 0-5 /HPF (0-5)
[2023-08-28 12:16] LABS: Alanine Aminotransferase 42 U/L (0-31); Albumin Level 4.1 g/dL (3.5-5.0); Alkaline Phosphatase 103 U/L (39-117); Anion Gap 12 (12-20); Aspartate Amino Transferase 32 U/L (5-31); Bilirubin Total 0.6 mg/dL (0.0-1.0); Blood Urea Nitrogen 15 mg/dL (9-16); Calcium 9.5 mg/dL (8.4-10.2); Carbon Dioxide 27 mmol/L (22-29); Chloride 104 mmol/L (96-108); Cholesterol 132 mg/dL (<200); Estimated Average Glucose 180 mg/dL; Estimated Glomerular Filt Rate > 60; Glucose Fasting 158 mg/dL (60-99); HDL Cholesterol 29 mg/dL (>40); Hemoglobin A1c % 7.9 % (<6.0); LDL Cholesterol Calculated 83 mg/dL (<100); Potassium 4.3 mmol/L (3.3-5.1); Sodium 139 mmol/L (135-145); Total Protein 6.5 g/dL (6.5-8.0); Triglycerides 102 mg/dL (<150)
[2023-08-28 12:27] LABS: Creatinine Urine 73.15 mg/dL; Microalbumin Urine < 5.0 mg/L
[2023-08-28 12:31] LABS: Free T4 (Free Thyroxine) 1.12 ng/dL (0.71-1.85); Thyroid Stimulating Hormone 1.87 uIU/mL (0.32-4.0); Vitamin D 25-OH Total 36.8 ng/mL (>30)
[2023-08-28 12:44] LABS: Folate 5.5 ng/mL (> or = 4.0); Vitamin B12 410 pg/mL (200-900)
== END 2023-08-28 10:38 | disposition home or self-care (01) ==
LOC: HO.LAB 10:37
PROVIDERS: PCP Internal Medicine; Visit Provider Internal Medicine Cardiovascular Disease
DX: R94.31 Abnormal electrocardiogram [ECG] [EKG] (principal); I10 Essential (primary) hypertension; E78.00 Pure hypercholesterolemia, unspecified; E03.9 Hypothyroidism, unspecified; E11.9 Type 2 diabetes mellitus without complications; E53.8 Deficiency of other specified B group vitamins; E55.9 Vitamin D deficiency, unspecified
CPT/HCPCS: 36415; 80053; 80061; 81001; 82306; 82570; 82607; 82746; 83036; 84439; 84443; 85025; 93005; 99212

== ENCOUNTER 2023-08-30 14:30 | Outpatient (AMB) | payer OTHER, SELFPAY ==
[2023-08-30 14:33] VITALS: BP 142/80; PULSE 82; O2SAT 95; BMI 38.4
--- NOTE | 2023-08-30 14:33 | MHC.PC.OV ---
Vital Signs 08/30/23 14:33 Height 5 ft 4 in Weight 223 lb 8 oz BMI 38.4 BP 142/80 H Blood Pressure Location Lt brachial Position Sitting Pulse 82 Pulse Source Pulse Oximeter Pulse Oximetry (%) 95 Oxygen Delivery Method Room Air Intake Visit Reasons: dm hypothyroidism gerd asthma Manager Market Intelligence Required: No Accompanied by: Self / Same As Patient Allergies cephalexin Allergy (Severe, Verified 10/13/23 11:50) Difficulty Breathing latex [LATEX] Allergy (Severe, Verified 10/13/23 11:50) Difficulty Breathing levofloxacin [From LEVAQUIN] Allergy (Severe, Verified 10/13/23 11:50) SHORTNESS OF BREATH, RASH, rash morphine [MORPHINE] Allergy (Severe, Verified 10/13/23 11:50) RASH, asthma exacerbation, rash baclofen [BACLOFEN] Allergy (Intermediate, Verified 10/13/23 11:50) Rash celecoxib [Celebrex] Allergy (Intermediate, Verified 10/13/23 11:50) itching, rash, flushing prednisone [PREDNISONE] Allergy (Intermediate, Verified 10/13/23 11:50) RASH, asthma exacerbation, rash codeine Allergy (Unknown, Verified 10/13/23 11:50) Rash gluten [GLUTEN] Allergy (Unknown, Verified 10/13/23 11:50) UNKNOWN oxycodone Allergy (Unknown, Verified 10/13/23 11:50) rash ranitidine Allergy (Unknown, Verified 10/13/23 11:50) unknown roflumilast [Daliresp] Allergy (Unknown, Verified 10/13/23 11:50) rash tramadol [TRAMADOL] Allergy (Unknown, Verified 10/13/23 11:50) RASH,SHORTNESS OF BREATH AND HEADACHE, asthma exacerbation, rash celery Allergy (Verified 10/13/23 11:50) Rash cyclobenzaprine [From Flexeril] Allergy (Verified 10/13/23 11:50) Rash and asthma exacerbation environmental allergies Allergy (Verified 10/13/23 11:50) Cleaning products cause asthma attack pineapple Allergy (Verified 10/13/23 11:50) Rash strawberry Allergy (Verified 10/13/23 11:50) Rash sulfamethoxazole [From Bactrim] Adverse Reaction (Intermediate, Verified 10/13/23 11:50) vertigo trimethoprim [From Bactrim] Adverse Reaction (Intermediate, Verified 10/13/23 11:50) vertigo diazepam [From Valium] Adverse Reaction (Verified 10/13/23 11:50) Cough Medication List - Last Reconciled 08/30/23 by Cassius Strong MD atorvastatin 40 mg PO BEDTIME benralizumab (Fasenra) 30 mg subcut Q8W blood pressure monitor As directed blood sugar diagnostic (FreeStyle Lite Strips) As directed- checks 4-5 X/day calcium citrate 500 mg (2 x 250 mg calcium) PO BID 30 days cholecalciferol (vitamin D3) 100 mcg (2 x 50 mcg (2,000 unit)) PO DAILY 90 days clotrimazole 10 mg mucous membrane TID [DIABETIC SHOES DIABETIC SHOES - 1 PAIR - use as directed -- Dx: E11.9 -- diabetes mellitus] ferrous sulfate (FeroSul) 325 mg PO DAILY Fiasp FlexTouch U-100 Insulin 100 unit/mL (3 mL) (insulin aspart (niacinamide)) Inject 5 to 20 units SQ before meals and snacks, FOUR TIMES A DAY 30 days NS fluconazole 200 mg PO DAILY hydromorphone 2 mg PO TID PRN 7 days ibuprofen 600 mg PO BID PRN immun glob N-uup-omvd-IgA 0-50 5 gram (Gammagard S-D (IgA < 1 mcg/mL)) 40 grams IV Q3W insulin degludec (Tresiba FlexTouch U-100 insulin) 5 units (0.05 mL) subcut DAILY ipratropium bromide 2 sprays intranasal BID lancets (FreeStyle Lancets) 5 times a day levalbuterol HCl 1.25 mg (3 mL) inhalation BID 30 days levalbuterol tartrate 45 mcg/actuation (Xopenex HFA) 2 puffs inhalation Q6H PRN 30 days loratadine 10 mg PO DAILY PRN 90 days losartan 25 mg PO BEDTIME metformin ER 1,000 mg (2 x 500 mg) PO BID 30 days metoprolol succinate ER 50 mg PO DAILY montelukast 10 mg PO BEDTIME 90 days nebulizers As directed nystatin 10 mL buccal TID 10 days omeprazole 40 mg PO BEDTIME ondansetron 8 mg PO Q8H PRN 10 days pen needle, diabetic (Easy Comfort Pen [place]) As directed inmjects 4 X/day pyridostigmine bromide 60 mg PO TID Synthroid (levothyroxine) 224 mcg (2 x 112 mcg) PO DAILY NS tizanidine 2 mg PO TID PRN Tobacco use date assessed: 08/30/23 Dental Screening Dental Screen Date: 08/30/23 Did you have a dental visit in the last 12 months?: No Did you have a dental problem in the last 6 months where you did not have access to dental care?: No Was dental information given to patient?: No HPI dm hypothyroidism gerd asthma HPI Details Patient comes in today for her follow up visit States that she feels okay She denies any headaches or dizziness Denies any chest pains, no increased SOB No nausea/vomiting, no abdominal pain No change in bowel habits noted States that her chronic hip pain, low back pain and joint pains remain adequately controlled on her current Rx although she reports experiencing increased pain in her left knee as well as increasing neck pain lately Needs her Hydromorphone Rx refilled Had her follow up labs done a couple of days ago - to discuss her results Would also like to get her flu shot today [facility] Medical History Anemia Chronic restrictive lung disease Brugada syndrome Shortness of breath Encounter for care related to Port-a-Cath Tinea pedis Recurrent cellulitis of lower extremity CHARLES (obstructive sleep apnea) Hypogammaglobulinemia Asthma Cellulitis of both lower extremities Right hip pain Lumbar degenerative disc disease Benign essential hypertension Obesity (BMI 30-39.9) Mitochondrial myopathy Asthma Diabetes mellitus History of revision of total replacement of right hip joint (~12/2019) Acquired hypothyroidism Pain of both hip joints Pure hypercholesterolemia Hx of cataract HTN (hypertension) Osteopenia Hypothyroidism Osteoarthritis of hip Gastritis Surgical History History of removal of Port-a-Cath History of total right hip arthroplasty (~06/03/19) History of eye surgery (~09/2017) History of hip surgery Hx of foot surgery (~01/02/19) History of removal of cyst Hx of left knee surgery History of elbow surgery (~07/2016) Hx of thumb surgery Hx of appendectomy Hx of hysterectomy (~07/2011) Hx of bilateral breast reduction surgery Family History Father Leukemia Mother Hypertension Diabetes Sister Alive and well Brother Pancreatic cancer Paternal Grandmother Stomach cancer Paternal Grandmother Throat cancer Social History Household Members: Family Housing: Apartment Do you presently have visiting nurse or other home services: No Alcohol intake: former Comment: refused bed alarm Patient Tobacco Use Status: Never used Tobacco e-Cigarette/Vaping Use: Never Used Second Hand Smoke Exposure: No service: No Current occupational status: disabled Cognitive needs: No Hearing needs: No Vision needs: No Questionnaire PHQ-9 Over the last 2 weeks, how often have you been bothered by any of the following problems? 1. Little interest or pleasure in doing things: not at all 2. Feeling down, depressed, or hopeless: not at all 3. Trouble falling or staying asleep, or sleeping too much: not at all 4. Feeling tired or having little energy: not at all 5. Poor appetite or overeating: not at all 6. Feeling bad about yourself - or that you are a failure or have let yourself or your family down: not at all 7. Trouble concentrating on things, such as reading the newspaper or watching television: not at all 8. Moving or speaking so slowly that other people could have noticed. Or the opposite - being so fidgety or restless that you have been moving around a lot more than usual: not at all 9. Thoughts that you would be better off or of hurting yourself in some way: not at all Total score: 0 Depression Screening Interpretation: Negative Depression Screening Done: Yes 15838 - PHQ-9 Billing: Yes Source: Developed by Drs. Babak Mcintosh, Savannah Vera, Christian Crowell and colleagues, with an educational sarah from [employer]. Thrive Questionnaire Date Thrive assessed: 08/30/23 I am a: Patient What is your living situation today?: I have a steady place to live Within the past 12 months, did the food you bought not last and you didn't have the money to get more?: Never true Within the past 12 months, did you worry whether your food would run out before you got money to buy more?: Never true Do you have trouble paying for medicines?: No Do you have trouble getting transportation to medical appointments?: No Do you have trouble paying your heating and electricity bill?: No Do you have trouble taking care of your child, family member or friend?: No Do you have trouble with day-to-day activities such as bathing, preparing meals, shopping, managing finances, etc.?: No Are you currently unemployed and looking for a job?: No Are you interested in more education?: No Please select the resources that you would like help with: None Currently or been in a relationship where the following occur: no concerns reported AUDIT C Alcohol Use Questionnaire (AUDIT-C) 1. How often do you have a drink containing alcohol?: Never 3. How often do you have six or more drinks on one occasion?: Never Total Score: 0 Score Reviewed/Action Taken: Yes REI-7 AMB Questionnaire REI-7 Date REI - 7 assessed: 08/30/23 Feeling nervous, anxious, or on edge: 0 = Not at all Not being able to stop or control worryin = Not at all Worrying too much about different things: 0 = Not at all Trouble relaxin = Not at all Being so restless that it is hard to sit still: 0 = Not at all Becoming easily annoyed or irritable: 0 = Not at all Feeling afraid as if something awful might happen: 0 = Not at all Total REI-7 score (0-4 normal; 5-9 mild; 10-14 moderate; 15-21 severe): 0 Source: Developed by Drs. Babak Mcintosh, Savannah Vera, Christian Crowell and colleagues, with an educational sarah from [employer]. Review of Systems Const Denies chills, Reports fatigue, Denies fever(s) and Denies headache(s) ENT Denies dysphagia, Denies dizziness, Denies otalgia, Denies headache(s), Reports neck pain (increasing lately), Denies odynophagia and Denies sore throat Card Denies chest pain, Denies palpitations and Reports dyspnea on exertion (mild) Resp Denies cough, Reports dyspnea on exertion (mild) and Denies wheezing GI Denies abdominal pain, Denies melena, Denies hematochezia, Denies constipation, Denies dysphagia, Denies heartburn, Denies diarrhea, Denies nausea, Denies odynophagia and Denies vomiting Denies nocturia, Denies dysuria and Denies urinary urgency Musc Reports back pain (over the lumbar spine - chronic), Reports arthralgias (involving multiple joints, including both hips and knees) and Reports neck pain (increasing lately) Skin/Breast Denies rash Neuro Denies dizziness and Denies headache(s) Endo Reports fatigue and Denies palpitations Aller/Immun Denies wheezing Physical exam (Primary Care) Vital Signs: Last Vital Signs Pulse 82 08/30/23 14:33 BP 142/80 H 08/30/23 14:33 Pulse Ox 95 08/30/23 14:33 Oxygen Delivery Method Room Air 08/30/23 14:33 BMI result Body Mass Index 38.4 Tobacco/Smoking Status: Tobacco use Status Tobacco use date assessed 08/30/23 08/30/23 14:40 Patient Tobacco Use Status Never used Tobacco 08/30/23 14:40 e-Cigarette/Vaping Use Never Used 08/30/23 14:40 PHQ-9: PHQ-9 Score PHQ-9: Total score 0 08/30/23 15:28 Depression Screening Interpretation: Negative Thrive Assessment: Date of Thrive Assessment Date Thrive assessed 08/30/23 08/30/23 14:40 Currently or been in a relationship where the following occur: no concerns reported Const General: no acute distress and alert HENMT Throat: Yes posterior oropharynx normal and Yes tonsils normal (no TP congestion noted) Neck Neck: Yes no lymphadenopathy and Yes supple Resp Auscultation: clear to auscultation bilaterally, no rales and no wheezes Cardio Rate: regular rate Rhythm: regular rhythm Heart sounds: no murmurs GI Palpation (GI): Soft to palpation and nontender Auscultation: normal bowel sounds Back/Spine/Pelvis Cervical Spine: Cervical spine tenderness Thoracic/Lumbar Spine: lumbar spinal tenderness Skin Rashes: no rashes Extrem General: Yes no clubbing, cyanosis or edema Right lower extremity: hip/thigh Details: tenderness Location: of the hip and knee Details: tenderness; no swelling Left lower extremity: hip/thigh Details: tenderness Location: of the hip and knee Details: tenderness; no swelling Office Procedures Flu Questionnaire Does the patient have a severe egg allergy?: No Does the patient have severe life threatening allergies?: No Does the patient have a fever or illness today?: No Has the patient ever had Guillain-[place] Syndrome?: No Has the patient ever had any past reaction to a flu shot?: No Immunizations flu vacc [id number] 6mos up(PF) 60 mcg(15 mcgx4)/0.5 mL IM syringe Performing Provider: Cassius Strong MD [facility] Administered by: Meir Costello on 08/30/23 15:28 Dose Route Admin Location Dispensed Lot Number Expiration Date NDC Embedded Software Developer 0.5 mL IM Right Deltoid 0.5 mL [id number] 04/14/24 [id number] [employer] VIS Given Date VIS Provided VIS Publication Date 08/30/23 Single Vaccine 21 Eligibility Eligibility Date Funding Source Not VFC Eligible 08/30/23 Private Results Reviewed Results Reviewed: Laboratory Tests 08/28/23 08/28/23 11:21 11:27 WBC 5.9 Hgb 10.7 L Hct 33.6 L Plt Count 130 L Sodium 139 Potassium 4.3 Creatinine 0.81 Estimated GFR > 60 Fasting Glucose 158 H Hemoglobin A1c % 7.9 H Calcium 9.5 AST 32 H ALT 42 H Triglycerides 102 Cholesterol 132 LDL Cholesterol, Calc 83 HDL Cholesterol 29 L Vitamin B12 410 25-OH Vitamin D Total 36.8 TSH 1.87 Free T4 1.12 Ur Specific [place] 1.020 Urine Protein Negative Urine Glucose (UA) Negative Urine Blood Negative Assessment and Plan Assessment & Plan (1) Diabetes mellitus: Code(s): E11.9 - Type 2 diabetes mellitus without complications Qualifiers: Diabetes mellitus complication status: without complication Diabetes mellitus usp insulin use: without usp use Diabetes mellitus type: type 2 Qualified Code(s): E11.9 - Type 2 diabetes mellitus without complications Plan: HgbA1c was at 7.9% on her labs done a couple of days ago (was at 8.0% a few months ago) - goal is < 7.0% Reinforced diabetic diet Continue Metformin 1000 mg BID, Tresiba 5 units QD and Fiasp TID with meals per sliding scale Follow up with endocrinology (Dr. Mahan) as scheduled (2) Benign essential hypertension: Code(s): I10 - Essential (primary) hypertension Plan: Reinforced low sodium diet - goal is systolic BP of at least 120 to 130 mm or less Continue Losartan 25 mg QD and Metoprolol ER 50 mg QD Patient is reminded to monitor her blood pressure regularly (3) Anemia: Code(s): D64.9 - Anemia, unspecified Qualifiers: Anemia type: unspecified type Qualified Code(s): D64.9 - Anemia, unspecified Plan: Her H/H have dropped slightly from previous - patient is advised that this may have contributed to her previous dizzy spells Will recheck her labs and CBC in 3 months for follow up (4) Pure hypercholesterolemia: Code(s): E78.00 - Pure hypercholesterolemia, unspecified Plan: Results of her labs done a couple of days ago reviewed and discussed with patient Reinforced low cholesterol diet Continue Atorvastatin 40 mg QD Will recheck her labs and fasting lipids in 3 months for follow up (5) Asthma: Code(s): J45.909 - Unspecified asthma, uncomplicated Qualifiers: Asthma complication type: uncomplicated Asthma persistence: persistent Asthma severity: moderate Qualified Code(s): J45.40 - Moderate persistent asthma, uncomplicated Plan: Stable Continue Montelukast 10 mg once a day in the evening, Spiriva Respimat 20-100 mcg 1 inhalation 4 times a day, Ventolin HFA 2 puffs 4 times a day as needed and DuoNeb nebulizer solution 3 mL via nebulizer 4 times a day as needed Continue Fasenra 30 mg subcutaneous injection every 8 weeks Follow up with pulmonary as scheduled (6) Acquired hypothyroidism: Code(s): E03.9 - Hypothyroidism, unspecified Plan: Continue Synthroid 224 mcg QD Will continue to monitor her TFTs regularly (7) Mitochondrial myopathy: Code(s): G71.3 - Mitochondrial myopathy, not elsewhere classified Plan: Continue Mestinon tablets 60 mg 4 times a day Patient also receives Gammagard infusion 40 mg IV every 3 weeks but she had to have her port-a-cath removed a few months ago due to blockage Follow up with Dr. Cobian and with neurology as scheduled for continuing management (8) Lumbar degenerative disc disease: Code(s): M51.36 - Other intervertebral disc degeneration, lumbar region Plan: Reinforced activity and weight-lifting restrictions Continue Hydromorphone 2 mg 3 times a day as needed Follow up with [facility] as scheduled (9) Neck pain: Code(s): M54.2 - Cervicalgia Plan: Will send her for cervical spine x-rays GLENN for further evaluation (10) Right hip pain: Comment: S/P right hip arthroplasty by Dr. Simon on 06/03/2019 (due to avascular necrosis), then S/P revision of right hip in 12/2019 Code(s): M25.551 - Pain in right hip Plan: Continues to experience increased pain in her right hip despite her arthroplasty followed by revision surgery in 2019 Follow up with orthopedics ([facility]) as scheduled Recalls getting some hip x-rays done at [facility] a few months ago but does not know how her x-rays came out To consider again referral to pain management if her pain progresses (11) Left hip pain: Code(s): M25.552 - Pain in left hip Plan: Will send patient for x-rays of the left hip GLENN for further evaluation (12) Obesity (BMI 30-39.9): Code(s): E66.9 - Obesity, unspecified Plan: Reinforced diet/exercise as tolerated/lose weight Plan Flu vaccine given today Follow up in 3 months Orders: Orders Comprehensive [place]. Panel Fast 3 Months E78.00 - Pure hypercholesterolemia, unspecified Influenza [id number] Immunization 08/30/23 Z23 - Encounter for immunization XR cervical spine 4V 09/04/23 M54.2 - Cervicalgia XR hip LT min 2V 09/04/23 M25.552 - Pain in left hip Complete Blood Count Auto Diff 3 Months I10 - Essential (primary) hypertension Lipid Panel 3 Months E78.00 - Pure hypercholesterolemia, unspecified Thyroid Stimulating Hormone 3 Months E03.9 - Hypothyroidism, unspecified Free T4 (Free Thyroxine) 3 Months E03.9 - Hypothyroidism, unspecified Vitamin D 25-OH Total 3 Months E55.9 - Vitamin D deficiency, unspecified UA CC w/rflx Micro + Cult 3 Months R30.0 - Dysuria Microalbumin, Random (w Creat) 3 Months E11.9 - Type 2 diabetes mellitus without complications Hemoglobin A1c 3 Months E11.9 - Type 2 diabetes mellitus without complications Medications: Refilled hydromorphone 2 mg PO TID PRN 21 tabs 0RF pain 7 days M51.36 - Other intervertebral disc degeneration, lumbar region Coding Level of Care Code Est Pt Level 4 (63067) Diagnoses Type 2 diabetes mellitus without complication, without long-term current use of insulin E11.9 Diabetes mellitus complication status: without complication Diabetes mellitus usp insulin use: without usp use Diabetes mellitus type: type 2 Benign essential hypertension I10 Anemia, unspecified type D64.9 Anemia type: unspecified type Pure hypercholesterolemia E78.00 Moderate persistent asthma without complication J45.40 Asthma complication type: uncomplicated Asthma persistence: persistent Asthma severity: moderate Acquired hypothyroidism E03.9 Mitochondrial myopathy G71.3 Lumbar degenerative disc disease M51.36 Neck pain M54.2 Right hip pain M25.551 Left hip pain M25.552 Obesity (BMI 30-39.9) E66.9
== END 2023-08-30 15:27 | disposition home or self-care (01) ==
PROVIDERS: PCP Internal Medicine; Visit Provider Internal Medicine
DX: Z23 Encounter for immunization (principal)
CPT/HCPCS: 90471; 90686; 99214

== ENCOUNTER 2023-09-04 13:16 | Outpatient (REF) | payer OTHER, SELFPAY ==
--- NOTE | ~2023-09-04 | XR_ITS ---
EXAMINATION: XR HIP, LEFT CLINICAL INFORMATION: Pain COMPARISON: Hip radiographs 06/17/2020 TECHNIQUE: Two views of the left hip. FINDINGS: No acute fracture or dislocation. Hip joint space is maintained. Redemonstration of heterotopic ossification noted medial to the proximal femoral diaphysis. XR/XR hip LT min 2V IMPRESSION: 1. No acute osseous abnormality. 2. Redemonstration of heterotopic ossification noted medial to the proximal femoral diaphysis.
--- NOTE | ~2023-09-04 | XR_ITS ---
EXAMINATION: XR cervical spine 4V CLINICAL INFORMATION: Cervicalgia COMPARISON: Cervical spine radiographs 03/30/2018 TECHNIQUE: 5 views of the cervical spine were obtained. FINDINGS: The cervical spine is visualized to the level of C6-C7 on the lateral view. Loss of the usual cervical spine lordosis which may be due to positioning or muscle spasm. Vertebral body heights are maintained. Lateral masses of C1 are well aligned on C2. Visualized portion of the dens is intact. Moderate multilevel degenerative disease with loss of disc space height and facet arthropathy progressed from prior. Uncovertebral hypertrophy and facet arthropathy results in mild bilateral neural foraminal narrowing. No prevertebral soft tissue swelling. XR/XR cervical spine 4V IMPRESSION: 1. Moderate spondylosis of the cervical spine, as above detailed, progressed from prior. 2. Loss of usual cervical spine lordosis which may be due to positioning or muscle spasm. 3. Mild neural foraminal narrowing, as above detailed.
== END 2023-09-04 13:17 | disposition home or self-care (01) ==
LOC: HO.HMGCX 13:16
PROVIDERS: PCP Internal Medicine; Visit Provider Internal Medicine
DX: M25.552 Pain in left hip (principal); M54.2 Cervicalgia
CPT/HCPCS: 72050; 73502

== ENCOUNTER 2023-09-14 13:44 | Outpatient (AMB) | payer OTHER, SELFPAY ==
[2023-09-14 14:16] VITALS: BP 130/80; PULSE 64; O2SAT 96; BMI 37.8
--- NOTE | 2023-09-14 14:16 | MHC.OFFVIS ---
Intake Vital Signs 09/14/23 14:16 Height 5 ft 4 in Weight 220 lb BMI 37.8 BP 130/80 Pulse 64 Pulse Oximetry (%) 96 Intake Visit Reasons: COPD Allergies cephalexin Allergy (Severe, Verified 09/14/23 14:23) Difficulty Breathing latex [LATEX] Allergy (Severe, Verified 09/14/23 14:23) Difficulty Breathing levofloxacin [From LEVAQUIN] Allergy (Severe, Verified 09/14/23 14:23) SHORTNESS OF BREATH, RASH, rash morphine [MORPHINE] Allergy (Severe, Verified 09/14/23 14:23) RASH, asthma exacerbation, rash baclofen [BACLOFEN] Allergy (Intermediate, Verified 09/14/23 14:23) Rash celecoxib [Celebrex] Allergy (Intermediate, Verified 09/14/23 14:23) itching, rash, flushing prednisone [PREDNISONE] Allergy (Intermediate, Verified 09/14/23 14:23) RASH, asthma exacerbation, rash codeine Allergy (Unknown, Verified 09/14/23 14:23) Rash gluten [GLUTEN] Allergy (Unknown, Verified 09/14/23 14:23) UNKNOWN oxycodone Allergy (Unknown, Verified 09/14/23 14:23) rash ranitidine Allergy (Unknown, Verified 09/14/23 14:23) unknown roflumilast [Daliresp] Allergy (Unknown, Verified 09/14/23 14:23) rash tramadol [TRAMADOL] Allergy (Unknown, Verified 09/14/23 14:23) RASH,SHORTNESS OF BREATH AND HEADACHE, asthma exacerbation, rash celery Allergy (Verified 09/14/23 14:23) Rash cyclobenzaprine [From Flexeril] Allergy (Verified 09/14/23 14:23) Rash and asthma exacerbation environmental allergies Allergy (Verified 09/14/23 14:23) Cleaning products cause asthma attack pineapple Allergy (Verified 09/14/23 14:23) Rash strawberry Allergy (Verified 09/14/23 14:23) Rash sulfamethoxazole [From Bactrim] Adverse Reaction (Intermediate, Verified 09/14/23 14:23) vertigo trimethoprim [From Bactrim] Adverse Reaction (Intermediate, Verified 09/14/23 14:23) vertigo diazepam [From Valium] Adverse Reaction (Verified 09/14/23 14:23) Cough HPI HPI Comments History of Present Illness Details The patient is a 52-year-old woman with known severe persistent asthma, hypogammaglobulinemia and obstructive sleep apnea. She has had significant issues with osteopenia and osteoporosis due to chronic steroid use. Currently she is using crutches. She did have surgery to her hip but still having issues with pain. She has been off the Medrol now for some time. She has been taking IVIG for her immunodeficiency with good effect. In in she also continues with respiratory therapy. When she started on Dupixent for her severe asthma she was able to wean off the Medrol. 05/09/2022 the patient is here for a pulmonary follow-up visit. The patient overall has been having increasing dyspnea on exertion. [id number] severity. She also complains of cough. She did try the Anoro but she could not tolerated. Therefore she stopped it. She continues on the Asmanex. she has not used her short-acting beta agonist. She continues on the Fasenra injections which appeared to be effective for her. The meantime she is having significant foot pain. She is going to have removal hardware from her but next week. I do believe that her worsening dyspnea is likely from deconditioning specially that she has a hard time walking now with her musculoskeletal issues. She did undergo pulmonary function studies in order to have her participate in pulmonary rehabilitation. she appears to have a restrictive ventilatory defect consistent with restrictive lung disease. The patient will benefit from pulmonary rehabilitation at this time. 11/10/2022 the patient is here for a pulmonary follow-up visit. Since we last spoke she had 1 brief exacerbation. She did require course of steroids. She initially call the office and we could not see her and she also call the primary care doctor who could not see her as well. Therefore she was recommended to go to the ED. However she was concerned about potential exposures while in the ED. Therefore she stayed home and she took additional Medrol. Currently she is doing better. She denies any chest congestion. She continues to have some dyspnea on exertion. [id number] severity. She continues on her allergy therapy. She is also using the Fasenra injections with good results. She continues on IVIG. 09/14/2023 the patient is here for a pulmonary follow-up visit. The patient overall doing well. Since we last spoke she did require antibiotics and Medrol once or twice. She is feeling better though. She does take care of her grandkids and exposed to viral syndromes. She tries to be careful though. In the meantime I will send her another script for Medrol for to hold just in case her symptoms worsen again. Patient knows that she is to be careful with taking steroid specially since she was on chronic steroids before will try to avoid that. In the meantime she does continue with her IVIG therapy a her inconsistent use with her Fasenra injections. We did review her recent blood work. She is anemic with a hemoglobin of 10.7. She is going to have that recheck again in 3 months. But with all the her all comorbidities anemia can also worsening shortness of breath. In addition to that will have her check a venous blood gas the next time she gets blood work to make sure she is that she is not retaining CO2. When she comes back in 3-4 months will have a her undergo pulmonary function studies to assess the lung capacity in view of her significant scoliosis and underlying obstructive airway disease. FOR[facility], [facility] Medical History Anemia Chronic restrictive lung disease Brugada syndrome Shortness of breath Encounter for care related to Port-a-Cath Tinea pedis Recurrent cellulitis of lower extremity CHARLES (obstructive sleep apnea) Hypogammaglobulinemia Asthma Cellulitis of both lower extremities Right hip pain Lumbar degenerative disc disease Benign essential hypertension Obesity (BMI 30-39.9) Mitochondrial myopathy Asthma Diabetes mellitus History of revision of total replacement of right hip joint (~12/2019) Acquired hypothyroidism Pain of both hip joints Pure hypercholesterolemia Hx of cataract HTN (hypertension) Osteopenia Hypothyroidism Osteoarthritis of hip Gastritis Surgical History History of removal of Port-a-Cath History of total right hip arthroplasty (~06/03/19) History of eye surgery (~09/2017) History of hip surgery Hx of foot surgery (~01/02/19) History of removal of cyst Hx of left knee surgery History of elbow surgery (~07/2016) Hx of thumb surgery Hx of appendectomy Hx of hysterectomy (~07/2011) Hx of bilateral breast reduction surgery Family History Father Leukemia Mother Hypertension Diabetes Sister Alive and well Brother Pancreatic cancer Paternal Grandmother Stomach cancer Paternal Grandmother Throat cancer Social History Household Members: Spouse Housing: Apartment Do you presently have visiting nurse or other home services: No Alcohol intake: former Patient Tobacco Use Status: Never used Tobacco e-Cigarette/Vaping Use: Never Used Second Hand Smoke Exposure: No service: No Current occupational status: disabled Cognitive needs: No Hearing needs: No Vision needs: No Review of Systems Const Denies headache(s) Eyes Denies loss of vision ENT Denies vertigo, Denies dizziness, Denies headache(s) and Denies sore throat Card Denies chest pain, Denies leg edema, Denies lightheadedness and Reports dyspnea on exertion Resp Reports cough, Denies hemoptysis, Reports dyspnea on exertion and Denies wheezing GI Denies abdominal pain, Denies melena, Denies constipation, Denies diarrhea and Denies vomiting Denies urinary frequency, Denies dysuria and Denies urinary urgency Musc Reports myalgias, Reports arthralgias, Reports joint swelling, Denies numbness and Denies tingling Neuro Denies Abnormal speech present, Denies behavioral changes, Denies vertigo, Denies dizziness, Denies headache(s), Denies loss of vision, Denies memory loss, Denies numbness and Denies tingling Psych Denies anxiety, Denies behavioral changes, Denies depression, Denies memory loss and Denies panic attacks Umair/Lymph Denies easy bleeding and Denies easy bruising Aller/Immun Denies wheezing Physical Exam Vital Signs: Last Vital Signs Pulse 64 09/14/23 14:16 BP 130/80 09/14/23 14:16 Pulse Ox 96 09/14/23 14:16 BMI result Body Mass Index 37.8 Const General: alert HEENT Mouth: tongue abnormal discolored Neck Neck: Yes normal visual inspection, Yes full ROM and Yes no lymphadenopathy Chest Chest palpation & inspection: normal inspection of the chest Resp Auscultation: diminished lung sounds Cardio Rate: regular rate Rhythm: regular rhythm Heart sounds: S1 normal heart sound present and S2 normal heart sound present GI Palpation (GI): Soft to palpation and nontender Auscultation: normal bowel sounds Skin General skin exam: rashes and/or lesions noted Neuro Speech: No Abnormal speech present Assessment & Plan Assessment & Plan (1) Asthma: Code(s): J45.909 - Unspecified asthma, uncomplicated Qualifiers: Asthma complication type: uncomplicated Asthma persistence: persistent Asthma severity: moderate Qualified Code(s): J45.40 - Moderate persistent asthma, uncomplicated (2) Hypogammaglobulinemia: Code(s): D80.1 - Nonfamilial hypogammaglobulinemia (3) CHARLES (obstructive sleep apnea): Code(s): G47.33 - Obstructive sleep apnea (adult) (pediatric) (4) Asthma: Code(s): J45.909 - Unspecified asthma, uncomplicated Qualifiers: Asthma severity: severe Asthma persistence: persistent Asthma complication type: uncomplicated Qualified Code(s): J45.50 - Severe persistent asthma, uncomplicated (5) Chronic restrictive lung disease: Code(s): J98.4 - Other disorders of lung Plan continue Fasenra injections allergy continue singular Asmanex short-acting beta agonist as needed IVIG PFTs VBG follow-up in 4 months Orders: Orders Venous Blood Gas Today J45.909 - Unspecified asthma, uncomplicated PFT pulmonary function test 4 Months J45.50 - Severe persistent asthma, uncomplicated Medications: New amoxicillin-pot clavulanate 875-125 mg 1 tab PO BID 20 tabs 0RF 10 days Refilled methylprednisolone (Medrol (Jarrett)) orally daily; take 2 tabs daily twice a day x 4, then 1 tab twice a day x 4 days, then 1 tab daily x 4 days 28 ea 0RF 12 days Coding Level of Care Code Est Pt Level 4 (40609) Diagnoses Moderate persistent asthma without complication J45.40 Asthma complication type: uncomplicated Asthma persistence: persistent Asthma severity: moderate Hypogammaglobulinemia D80.1 CHARLES (obstructive sleep apnea) G47.33 Chronic restrictive lung disease J98.4 Time Spent (min) 17
== END 2023-09-14 14:44 | disposition home or self-care (01) ==
PROVIDERS: PCP Internal Medicine; Visit Provider Hospitalist
DX: J45.40 Moderate persistent asthma, uncomplicated (principal); D80.1 Nonfamilial hypogammaglobulinemia; G47.33 Obstructive sleep apnea (adult) (pediatric); J98.4 Other disorders of lung; J45.50 Severe persistent asthma, uncomplicated
CPT/HCPCS: 99214

== ENCOUNTER → 2023-09-14 13:44 | Outpatient (BNVA) | payer OTHER, SELFPAY | PROVIDERS: PCP Internal Medicine; Visit Provider Hospitalist | DX: J45.50 Severe persistent asthma, uncomplicated (principal); D80.1 Nonfamilial hypogammaglobulinemia; G47.33 Obstructive sleep apnea (adult) (pediatric); J98.4 Other disorders of lung | CPT/HCPCS: 99212 ==

== ENCOUNTER 2023-09-26 10:57 | Inpatient (IN) | payer OTHER, SELFPAY ==
--- NOTE | ~2023-09-26 | CT_ITS ---
EXAMINATION: CT ABDOMEN AND PELVIS WITH CONTRAST CLINICAL INFORMATION: Abnormal pain with question of portal vein thrombus COMPARISON: GI bleeding study from yesterday 09/26/2023 at which time the portal venous system is widely patent TECHNIQUE: Multidetector volumetric images were obtained from the superior aspect of the liver through the pubic symphysis following administration 85 mL of Omnipaque 350 intravenous contrast. Sagittal and coronal reformatted images were obtained on the technologist's workstation. Oral contrast: No This CT examination was performed using dose optimization techniques as appropriate, variously including the following: *Automated exposure control *Adjustment of mA and/or kV according to patient size (this includes techniques or standardized protocols for targeted exams where dose is matched to indication/reason for exam; i.e. extremities or head) *Use of iterative reconstruction technique DLP: 877 mGy-cm FINDINGS: LUNG BASES: The visualized lung bases are unremarkable aside from basilar atelectasis. Bilateral breast calcifications are present, right greater than left. LIVER, GALLBLADDER, AND BILIARY TREE: The liver is normal in size, shape, and attenuation. No focal hepatic lesion or biliary ductal dilatation is present. The gallbladder is unremarkable with no evidence of radiopaque gallstones, gallbladder wall thickening, or obvious pericholecystic inflammatory changes. There is some vicarious excretion of contrast media from yesterday's study into the gallbladder lumen. PANCREAS: There are 2 cysts seen in the region of the pancreatic tail the largest measuring 1.3 cm which have been present on prior studies and unchanged. No new pancreatic masses. No pancreatic ductal dilatation or stones. SPLEEN: Spleen is enlarged at 14 cm. ADRENAL GLANDS: Unremarkable. KIDNEYS AND URETERS: The kidneys are normal in size, shape, and attenuation. No hydronephrosis, hydroureter, or calculi seen. No perinephric stranding. BLADDER: Nearly empty but unremarkable. GASTROINTESTINAL TRACT: The small and large bowel are unremarkable aside from colonic diverticula without diverticulitis. The appendix is not seen but there is no evidence of appendicitis evidence of appendicitis. ABDOMINAL WALL: No significant hernia is appreciated. Tiny periumbilical hernia seen containing only fat. LYMPH NODES: No retroperitoneal lymphadenopathy. VASCULAR: The portal venous system is widely patent. The hepatic veins and IVC are patent. The abdominal aorta and iliofemoral vessels appear normal. The celiac SMA and TAMMI are all patent. There are single renal arteries seen bilaterally which are widely patent. PELVIC VISCERA: The uterus is not seen. An abnormal adnexal mass is not detected. No free intraperitoneal fluid is present. OSSEOUS STRUCTURES: Marked biconvex thoracolumbar scoliosis with degenerative changes in the spine. No bony destruction. Right hip prosthesis is present. CT/CT abdomen pelvis w IV con IMPRESSION: 1. The portal venous system is widely patent without evidence of thrombosis. 2. Long-term stability of pancreatic tail cysts. 3. Mild splenomegaly. 4. Colonic diverticulosis without diverticulitis. 5. Other incidental findings as described above. Fleischner guidelines were followed.
--- NOTE | ~2023-09-26 | CT_ITS ---
EXAMINATION: CT ABDOMEN AND PELVIS WITHOUT AND WITH CONTRAST CLINICAL INFORMATION: GI bleed. COMPARISON: 06/05/2015. TECHNIQUE: Noncontrast CT scan images of the abdomen and pelvis obtained followed by Multidetector volumetric imaging performed of the abdomen and pelvis following IV administration of 80 mL of Omnipaque 350 intravenous contrast. Sagittal and coronal reformatted images were obtained on the technologist's workstation. This CT examination was performed using dose optimization techniques as appropriate, variously including the following: *Automated exposure control *Adjustment of mA and/or kV according to patient size (this includes techniques or standardized protocols for targeted exams where dose is matched to indication/reason for exam; i.e. extremities or head) *Use of iterative reconstruction technique DLP: 2332 mGy-cm FINDINGS: LUNG BASES: Unremarkable. LIVER, GALLBLADDER, AND BILIARY TREE: The liver is mildly irregular in contour. No focal liver lesions are seen. There is no intrahepatic biliary duct dilatation. The gallbladder is unremarkable with no evidence of radiopaque gallstones, gallbladder wall thickening, or obvious pericholecystic inflammatory changes. PANCREAS: There is a 1.4 cm low-density structure at the tail of the pancreas with low attenuation values consistent with that of simple fluid. A similar structure was seen previously. SPLEEN: Unremarkable. ADRENAL GLANDS: There is a 1.4 cm low-density left adrenal nodule similar to previous. KIDNEYS AND URETERS: The kidneys are normal in size, shape, and attenuation. No hydronephrosis, hydroureter, or calculi seen. No perinephric stranding. BLADDER: Unremarkable. GASTROINTESTINAL TRACT: There are diverticula of the transverse and descending colon without diverticulitis. The appendix is not seen. There is no evidence for contrast extravasation to suggest active GI bleeding. ABDOMINAL WALL: No significant hernia is appreciated. LYMPH NODES: Normal. VASCULAR: Unremarkable. PELVIC VISCERA: Unremarkable. OSSEOUS STRUCTURES: There is diffuse thoracolumbar disc degenerative change with curvature of the lumbar spine convex to the left. A right hip prosthesis is in place. CT/CT gi bleed abd pel wo/w IVcon IMPRESSION: There are diverticula of the transverse and descending colon without diverticulitis. Irregular liver contour possibly hepatocellular disease. Correlation needed. No evidence for active GI bleeding. No definite acute intra-abdominal process Fleischner guidelines were utilized.
[2023-09-26 11:46] VITALS: BP 146/97; PULSE 104; RESP 20; TEMP 36.6; O2SAT 100; BMI 37.8
--- NOTE | 2023-09-26 11:52 | ED_ITS ---
HPI - Abdominal Pain General Chief Complaint: Abdominal Pain Stated Complaint: Abd pain, blood in stool Time Seen by Provider: 09/26/23 18:50 Source: patient, family and old records reviewed Mode of arrival: ambulatory Limitations: no limitations History of Present Illness HPI narrative: 52 yo female with PMH of anemia, asthma, CHARLES, cellulitis, anxiety, chronic pain on dilaudid, daily ibuprofen use, on PPI daily for gastritis, hypogammaglobulinemia on IVIG but missed yesterday, failed prior attempts at colonoscopy in the past but poor prep, on daily PPI, takes ibuprofen daily comes in with c/o lower abdominal discomfort yesterday and then noted maroon to black stool starting this AM a few times. She feels tired and weak. She denies having a GI bleed in past MD elicited complaint: abdominal pain Pertinent past history: gastritis Onset (ago): day(s) (2) Pain Consistency: intermittent Location: suprapubic Severity: mild Quality: cramping Radiation: none Migration to: no migration Exacerbating factors: nothing Relieving factors: nothing Associated symptoms: nausea, hematochezia and melena Related Data Home Medications Medication Instructions Recorded Confirmed ipratropium bromide 42 mcg (0.06 2 spray intranasal BID 03/11/21 08/30/23 %) nasal spray immune glob,gamma(IgG) 5 40 g IV Q3W 07/09/21 08/30/23 kyco-imj-sgcf-IgA 0 to 50 mcg/mL IV solution (Gammagard S-D (IgA < 1 mcg/mL)) benralizumab 30 mg/mL subcutaneous 30 mg subcut Q8W 10/06/22 08/30/23 syringe (Fasenra) losartan 25 mg tablet 25 mg PO BEDTIME 01/02/23 08/30/23 pyridostigmine bromide 60 mg tablet 60 mg PO TID 01/02/23 08/30/23 nebulizers 03/09/23 08/30/23 clotrimazole 10 mg jacinta 10 mg mucous membrane TID 08/28/23 08/30/23 fluconazole 200 mg tablet 200 mg PO DAILY 08/28/23 08/30/23 Previous Rx's Medication Instructions Recorded lancets 28 gauge (FreeStyle #150 ea 07/28/20 Lancets) insulin degludec 100 unit/mL (3 5 unit (0.05 mL) subcut DAILY #15 12/22/22 mL) subcutaneous pen (Tresiba mL FlexTouch U-100 insulin) pen needle, diabetic 33 gauge x #100 ea 10/06/22 5/32 (Easy Comfort Pen [place]) levalbuterol HCl 1.25 mg/3 mL 1.25 mg (3 mL) inhalation BID 30 11/10/22 solution for nebulization days #180 mL blood pressure monitor #1 ea 01/21/23 levalbuterol tartrate 45 2 puff inhalation Q6H PRN 01/23/23 mcg/actuation aerosol inhaler shortness of breath or wheezing 30 (Xopenex HFA) days #15 grams loratadine 10 mg tablet 10 mg PO DAILY PRN allergy 02/20/23 symptoms 90 days #90 tabs nystatin 100,000 unit/mL oral 10 ml buccal TID 10 days #300 mL 02/27/23 suspension Fiasp FlexTouch U-100 Insulin 100 See Rx Instructions subcut 04/03/23 unit/mL (3 mL) subcutaneous pen .COMPLEX 30 days #150 mL (insulin aspart (niacinamide)) blood sugar diagnostic (FreeStyle #100 ea 05/09/23 Lite Strips) Synthroid 112 mcg tablet 224 mcg (2 x 112 mcg) PO DAILY #60 05/19/23 (levothyroxine) tabs atorvastatin 40 mg tablet 40 mg PO BEDTIME #90 tabs 06/26/23 cholecalciferol (vitamin D3) 50 100 mcg (2 x 50 mcg (2,000 unit)) 06/26/23 mcg (2,000 unit) capsule PO DAILY 90 days #180 caps calcium citrate 500 mg (2 x 250 mg calcium) PO BID 07/05/23 30 days #120 tabs montelukast 10 mg tablet 10 mg PO BEDTIME 90 days #90 tabs 07/05/23 metformin 500 mg tablet,extended 1,000 mg (2 x 500 mg) PO BID 30 07/08/23 release 24 hr days #120 tabs omeprazole 40 mg capsule,delayed 40 mg PO BEDTIME gastritis #180 07/08/23 release caps metoprolol succinate 50 mg 50 mg PO DAILY #90 tabs 07/10/23 tablet,extended release 24 hr ibuprofen 600 mg tablet 600 mg PO BID PRN for pain #90 tabs 08/01/23 tizanidine 2 mg tablet 2 mg PO TID PRN for muscle spasm 08/02/23 #90 tabs DIABETIC SHOES #1 ea 09/01/23 ferrous sulfate 325 mg (65 mg 325 mg PO DAILY #90 tabs 09/06/23 iron) tablet (FeroSul) amoxicillin 875 mg-potassium 1 tab PO BID 10 days #20 tabs 09/14/23 clavulanate 125 mg tablet methylprednisolone 4 mg tablets in See Rx Instructions PO DAILY 12 09/14/23 a dose pack (Medrol (Jarrett)) days #28 ea ondansetron 8 mg disintegrating 8 mg PO Q8H PRN nausea and 09/14/23 tablet vomiting 10 days #30 tabs hydromorphone 2 mg tablet 2 mg PO TID PRN pain 7 days #21 09/25/23 tabs Allergies Allergy/AdvReac Type Severity Reaction Status Date / Time cephalexin Allergy Severe Difficulty Verified 09/26/23 11:46 Breathing latex [LATEX] Allergy Severe Difficulty Verified 09/26/23 11:46 Breathing levofloxacin [From LEVAQUIN] Allergy Severe SHORTNESS Verified 09/26/23 11:46 OF BREATH, RASH, rash morphine [MORPHINE] Allergy Severe RASH, Verified 09/26/23 11:46 asthma exacerbation, rash baclofen [BACLOFEN] Allergy Intermediate Rash Verified 09/26/23 11:46 celecoxib [Celebrex] Allergy Intermediate itching, Verified 09/26/23 11:46 rash, flushing prednisone [PREDNISONE] Allergy Intermediate RASH, Verified 09/26/23 11:46 asthma exacerbation, rash codeine Allergy Unknown Rash Verified 09/26/23 11:46 gluten [GLUTEN] Allergy Unknown UNKNOWN Verified 09/26/23 11:46 oxycodone Allergy Unknown rash Verified 09/26/23 11:46 ranitidine Allergy Unknown unknown Verified 09/26/23 11:46 roflumilast [Daliresp] Allergy Unknown rash Verified 09/26/23 11:46 tramadol [TRAMADOL] Allergy Unknown RASH,SHORTNESS Verified 09/26/23 11:46 OF BREATH AND HEADACHE, asthma exacerbation, rash celery Allergy Rash Verified 09/26/23 11:46 cyclobenzaprine Allergy Rash and Verified 09/26/23 11:46 [From Flexeril] asthma exacerbation environmental allergies Allergy Cleaning Verified 09/26/23 11:46 products cause asthma attack pineapple Allergy Rash Verified 09/26/23 11:46 strawberry Allergy Rash Verified 09/26/23 11:46 sulfamethoxazole AdvReac Intermediate vertigo Verified 09/26/23 11:46 [From Bactrim] trimethoprim [From Bactrim] AdvReac Intermediate vertigo Verified 09/26/23 11:46 diazepam [From Valium] AdvReac Cough Verified 09/26/23 11:46 Review of Systems Review of Systems Constitutional : No Weight loss, No Fever, No Chills ENT/Mouth : No sore throat, No Rhinorrhea Eyes: No Swelling, No Redness Cardiovascular : No Chest Pain, No SOB, NoEdema Respiratory : No Cough, No Sputum, No Wheezing Gastrointestinal : Positive Nausea, no Vomiting, no Diarrhea, positive abdominal Pain, pos Hematochezia, pos Melena Genitourinary : No Dysuria, No Urinary Frequency, No Hematuria, No Urgency Musculoskeletal : No joint pain, No Myalgias, No Joint Swelling Skin : No Skin Lesions, No rash Neuro : No Weakness, No Numbness, No Dizziness, No Headache Psych : No Anxiety/Panic, No Depression Heme/Lymph: No Bruising, No Lymphadenopathy Endocrine : No Polyuria, No Polydipsia All other systems reviewed and are negative. [facility] Past Medical History Attestation statement: The following information was validated with the patient. Source: old records reviewed Medical History Anemia Chronic restrictive lung disease Brugada syndrome Shortness of breath Encounter for care related to Port-a-Cath Tinea pedis Recurrent cellulitis of lower extremity CHARLES (obstructive sleep apnea) Hypogammaglobulinemia Asthma Cellulitis of both lower extremities Right hip pain Lumbar degenerative disc disease Benign essential hypertension Obesity (BMI 30-39.9) Mitochondrial myopathy Asthma Diabetes mellitus History of revision of total replacement of right hip joint (~12/2019) Acquired hypothyroidism Pain of both hip joints Pure hypercholesterolemia Hx of cataract HTN (hypertension) Osteopenia Hypothyroidism Osteoarthritis of hip Gastritis Surgical History History of removal of Port-a-Cath History of total right hip arthroplasty (~06/03/19) History of eye surgery (~09/2017) History of hip surgery Hx of foot surgery (~01/02/19) History of removal of cyst Hx of left knee surgery History of elbow surgery (~07/2016) Hx of thumb surgery Hx of appendectomy Hx of hysterectomy (~07/2011) Hx of bilateral breast reduction surgery Family History Family History Father Leukemia Mother Hypertension Diabetes Sister Alive and well Brother Pancreatic cancer Paternal Grandmother Stomach cancer Paternal Grandmother Throat cancer Social History Social History Household Members: Spouse Housing: Apartment Do you presently have visiting nurse or other home services: No Alcohol intake: former Patient Tobacco Use Status: Never used Tobacco e-Cigarette/Vaping Use: Never Used Second Hand Smoke Exposure: No Advance Directives: No Advance Directives Information Provided: No service: No Current occupational status: disabled Cognitive needs: No Hearing needs: No Vision needs: No Physical Exam ED Vital Signs: Vital Signs - 24 hr 09/26/23 11:46 09/26/23 18:50 Temperature 98 F Pulse Rate 104 H 77 Respiratory Rate 20 18 Blood Pressure 146/97 H 133/70 Pulse Oximetry 100 100 Oxygen Delivery Method Room Air Room Air BMI result Body Mass Index 37.8 Appearance: Alert. Oriented X3. No acute distress. Eyes: Pupils equal, round and reactive to light. ENT: Pharynx normal. Neck: Normal inspection. Neck supple. CVS: Normal heart rate and rhythm. Pulses normal. Respiratory: No respiratory distress. Breath sounds normal. Abdomen: Soft and mild lower abdominal ttp no rebound or guarding, no peritoneal signs Rectal: maroon stool on finger Skin: Skin warm and dry. Normal skin color. Normal skin turgor. Extremities: No lower extremity edema. No calf ttp Neuro: Oriented X 3. No motor deficit. No sensory deficit. Course Course Course Narrative: RME: 73-year-old female with a past medical history of HLD, HTN, CAD, diabetes, COPD, sleep apnea, complaining of abdominal pain x yesterday with dark/black stool and blood. Admits to taking NSAIDs daily for arthritis. denies taking AC. Also reports feeling lightheaded EKG, Labs, UA, Occult stool, CTAP ordered Full HPI, ROS and PE to be performed by primary ED provider. Reevaluation(s) Reevaluation #1: not at transfusion threshold Reevaluation #2: H/H stable Medical Decision Making Medical Decision Making MDM Narrative: 52 yo female with PMH of anemia, asthma, CHARLES, cellulitis, anxiety, chronic pain on dilaudid, daily ibuprofen use, on PPI daily for gastritis, hypogammaglobulinemia on IVIG but missed yesterday now here with lower abdominal pain and dark black/maroon stools at this time will need labs, repeat H/H, type and screen, GI bleed protocol - there was a drop in H/H as well so will monitor carefully consent for transfusion on chart, [address] Differential Diagnosis Differential Diagnoses: The differential diagnosis associated with the presentation includes PUD, diverticulosis, AVM Admission/Observation Consideration of admission/observation: Escalation of care including admission/observation considered admit for further monitoring Consult Healthcare Provider Management of the patient was discussed with: Hospitalist (will admit) and Secondary [employer] Education Teacher (Dr. [place] donald) Lab Data [facility] Lab Attestation statement: I reviewed the patient's lab results. 09/26/23 19:27 09/26/23 13:37 Labs: Lab Results 09/26/23 09/26/23 09/26/23 Range/Units 13:37 19:20 19:27 WBC 8.0 9.3 (4.8-10.8) X10*3/uL RBC 3.11 L D 3.07 L (4.20-5.50) X10*6/uL Hgb 8.5 L D 8.2 L (12.0-16.0) g/dl Hct 25.9 L D 25.2 L (37.0-47.0) % MCV 83.3 82.1 (80.0-98.0) fL MCH 27.3 26.7 L (27.0-33.0) pg MCHC 32.8 32.5 (31.0-35.0) g/dl RDW 14.0 14.2 (11.0-16.0) % Plt Count 175 D 193 (160-400) X10*3/uL MPV 10.6 10.4 (9.4-12.3) fL Immature Gran % (Auto) 0.4 (0.0-0.4) % Neut % (Auto) 62.7 (45-73) % Lymph % (Auto) 30.9 (20-40) % Door % (Auto) 6.0 (2-11) % Eos % (Auto) 0.0 (0-4) % Baso % (Auto) 0.0 (0-2) % Lymph # (Auto) 2.5 (1.2-4.9) X10*3/uL Door # (Auto) 0.5 (0.1-1.2) X10*3/uL Eos # (Auto) 0.0 (0.0-0.4) X10*3/uL Baso # (Auto) 0.0 (0.0-0.2) X10*3/uL Abs Immat Gran (auto) 0.03 (0.00-0.03) X10*3/uL Absolute Neuts (auto) 5.0 (2.0-8.3) x10*3/uL Absolute Nucleated RBC 0.000 0.000 (0.0-0.012) X10*3/uL Nucleated RBC % (auto) 0.0 0.0 (0.0-0.2) /100WBC PT 12.1 (11.1-13.3) SEC INR 1.0 (0.9-1.1) Sodium 138 (135-145) mmol/L Potassium 3.8 (3.3-5.1) mmol/L Chloride 105 (96-108) mmol/L Carbon Dioxide 25 (22-29) mmol/L Anion Gap 12 (12-20) BUN 26 H (9-16) mg/dL Creatinine 0.81 (0.5-1.4) mg/dL Estim Creat Clear Calc 92.3 Estimated GFR > 60 Random Glucose 129 H (60-115) mg/dL Calcium 9.2 (8.4-10.2) mg/dL Magnesium 2.1 (1.6-2.6) mg/dL Total Bilirubin 0.6 (0.0-1.0) mg/dL Direct Bilirubin 0.2 (0.0-0.5) mg/dL AST 22 (5-31) U/L ALT 31 (0-31) U/L Alkaline Phosphatase 91 (39-117) U/L Total Protein 6.2 L (6.5-8.0) g/dL Albumin 3.9 (3.5-5.0) g/dL Lipase 16 (8-78) U/L Urine Color Urine Appearance Urine pH (5.0-9.0) Ur Specific [place] (1.005-1.025) Urine Protein (Neg-Trace) mg/dL Urine Glucose (UA) (Negative) mg/dL Urine Ketones (Negative) mg/dL Urine Blood (Negative) Urine Nitrite (Negative) Ur Leukocyte Esterase (Negative) Stool Occult Blood POSITIVE (NEGATIVE) Blood Type A Positive Antibody Screen NEGATIVE 09/26/23 Range/Units 20:52 WBC (4.8-10.8) X10*3/uL RBC (4.20-5.50) X10*6/uL Hgb (12.0-16.0) g/dl Hct (37.0-47.0) % MCV (80.0-98.0) fL MCH (27.0-33.0) pg MCHC (31.0-35.0) g/dl RDW (11.0-16.0) % Plt Count (160-400) X10*3/uL MPV (9.4-12.3) fL Immature Gran % (Auto) (0.0-0.4) % Neut % (Auto) (45-73) % Lymph % (Auto) (20-40) % Door % (Auto) (2-11) % Eos % (Auto) (0-4) % Baso % (Auto) (0-2) % Lymph # (Auto) (1.2-4.9) X10*3/uL Door # (Auto) (0.1-1.2) X10*3/uL Eos # (Auto) (0.0-0.4) X10*3/uL Baso # (Auto) (0.0-0.2) X10*3/uL Abs Immat Gran (auto) (0.00-0.03) X10*3/uL Absolute Neuts (auto) (2.0-8.3) x10*3/uL Absolute Nucleated RBC (0.0-0.012) X10*3/uL Nucleated RBC % (auto) (0.0-0.2) /100WBC PT (11.1-13.3) SEC INR (0.9-1.1) Sodium (135-145) mmol/L Potassium (3.3-5.1) mmol/L Chloride (96-108) mmol/L Carbon Dioxide (22-29) mmol/L Anion Gap (12-20) BUN (9-16) mg/dL Creatinine (0.5-1.4) mg/dL Estim Creat Clear Calc Estimated GFR Random Glucose (60-115) mg/dL Calcium (8.4-10.2) mg/dL Magnesium (1.6-2.6) mg/dL Total Bilirubin (0.0-1.0) mg/dL Direct Bilirubin (0.0-0.5) mg/dL AST (5-31) U/L ALT (0-31) U/L Alkaline Phosphatase (39-117) U/L Total Protein (6.5-8.0) g/dL Albumin (3.5-5.0) g/dL Lipase (8-78) U/L Urine Color Yellow Urine Appearance Clear Urine pH 6.5 (5.0-9.0) Ur Specific [place] >= 1.030 H (1.005-1.025) Urine Protein Negative (Neg-Trace) mg/dL Urine Glucose (UA) Negative (Negative) mg/dL Urine Ketones Negative (Negative) mg/dL Urine Blood Negative (Negative) Urine Nitrite Negative (Negative) Ur Leukocyte Esterase Negative (Negative) Stool Occult Blood (NEGATIVE) Blood Type Antibody Screen Independent Interpretation I performed an independent interpretation of an: EKG and CT Scan (no active GI bleed) Interpretation: Rate: 75 Rhythm: NSR [place]: left Normal P waves. Normal WOJCIECH. RBBB ST T wave : normal no BALJIT, inverted t wave III qTC: normal prior studies: no sig change from priors The study has been interpreted contemporaneously by me. . Radiology Impression Discussion of test interpretation with radiology: I have reviewed the radiologist's reading. Independent Historian Clinical information obtained from an independent historian. History obtained from or confirmed by: Other External Record Review External record reviewed: Inpatient record Medications Administered Discontinued Medications Generic Name Dose Route Start Last Admin Trade Name Freq PRN Reason Stop Dose Admin Hydromorphone HCl 2 mg 09/26/23 20:48 09/26/23 21:05 Hydromorphone Hcl 2 Mg Tablet PO 09/26/23 20:49 2 mg ONCE ONE Administration Sodium Chloride 1,000 mls @ 999 mls/hr 09/26/23 19:00 09/26/23 20:51 Ns IV 09/26/23 20:00 Infused .Q1H1M FLORECITA Infusion Iohexol 80 ml 09/26/23 19:50 09/26/23 19:50 Iohexol 350 Mg/Ml 100 Ml Infus..Btl IV 09/26/23 19:51 80 ml ONCE ONE Administration Pantoprazole Sodium 40 mg 09/26/23 18:55 09/26/23 19:49 Pantoprazole Sodium 40 Mg/10 Ml Vial IVPUSH 09/26/23 18:56 40 mg ONCE ONE Administration Discharge Plan Discharge Clinical Impression: Acute GI bleeding, Acute anemia Patient Disposition: Admitted As Inpatient
--- NOTE | 2023-09-26 11:53 | ECG_ITS ---
Test Reason : dizziness, abd pain Blood Pressure : / mmHG Vent. Rate : 075 BPM Atrial Rate : 075 BPM P-R Int : 152 ms QRS Dur : 154 ms QT Int : 424 ms P-R-T Axes : 031 -21 001 degrees QTc Int : 473 ms Normal sinus rhythm Right bundle branch block Minimal voltage criteria for LVH, may be normal variant ( R in aVL ) Abnormal ECG When compared with ECG of 02-JAN-2023 15:01, No significant change was found Referred By: Jaci Newsome Electronically Signed By:Jordan Lehman
[2023-09-26 13:44] LABS: MANUAL DIFF FLAG NO
[2023-09-26 13:46] LABS: Hematocrit 25.9 % (37.0-47.0); Hemoglobin 8.5 g/dl (12.0-16.0); Imm Gran Abs Auto 0.03 X10*3/uL (0.00-0.03); Imm Gran Pct Auto 0.4 % (0.0-0.4); Lymphocytes Absolute Auto 2.5 X10*3/uL (1.2-4.9); Lymphocytes Percent Auto 30.9 % (20-40); Mean Corpuscular HGB Conc 32.8 g/dl (31.0-35.0); Mean Corpuscular Hemoglobin 27.3 pg (27.0-33.0); Mean Corpuscular Volume 83.3 fL (80.0-98.0); Mean Platelet Volume 10.6 fL (9.4-12.3); Monocytes Absolute Auto 0.5 X10*3/uL (0.1-1.2); Neutrophils Percent Auto 62.7 % (45-73); Platelet Count 175 X10*3/uL (160-400); Red Blood Count 3.11 X10*6/uL (4.20-5.50)
[2023-09-26 13:50] LABS: Prothrombin Time 12.1 SEC (11.1-13.3)
[2023-09-26 14:03] LABS: Alanine Aminotransferase 31 U/L (0-31); Albumin Level 3.9 g/dL (3.5-5.0); Alkaline Phosphatase 91 U/L (39-117); Anion Gap 12 (12-20); Aspartate Amino Transferase 22 U/L (5-31); Bilirubin Direct 0.2 mg/dL (0.0-0.5); Bilirubin Total 0.6 mg/dL (0.0-1.0); Blood Urea Nitrogen 26 mg/dL (9-16); Calcium 9.2 mg/dL (8.4-10.2); Carbon Dioxide 25 mmol/L (22-29); Chloride 105 mmol/L (96-108); Creatinine Clr Calc Pharmacy 92.3; Estimated Glomerular Filt Rate > 60; Glucose Random 129 mg/dL (60-115); Lipase 16 U/L (8-78); Magnesium 2.1 mg/dL (1.6-2.6); Potassium 3.8 mmol/L (3.3-5.1); Sodium 138 mmol/L (135-145); Total Protein 6.2 g/dL (6.5-8.0)
[2023-09-26 18:50] VITALS: BP 133/70; PULSE 77; RESP 18; O2SAT 100
[2023-09-26 19:38] LABS: Hematocrit 25.2 % (37.0-47.0); Hemoglobin 8.2 g/dl (12.0-16.0); Mean Corpuscular HGB Conc 32.5 g/dl (31.0-35.0); Mean Corpuscular Hemoglobin 26.7 pg (27.0-33.0); Mean Corpuscular Volume 82.1 fL (80.0-98.0); Mean Platelet Volume 10.4 fL (9.4-12.3); Platelet Count 193 X10*3/uL (160-400); Red Blood Count 3.07 X10*6/uL (4.20-5.50); Red Cell Distribution Width 14.2 % (11.0-16.0); White Blood Count 9.3 X10*3/uL (4.8-10.8)
[2023-09-26 19:44] LABS: OBS Int Ctl Valid YES; OBS1 POSITIVE (NEGATIVE)
[2023-09-26] MEDS: Pantoprazole Sodium 40 MG/10 ML VIAL IVPUSH (19:49)
[2023-09-26] MEDS: iohexoL 350 MG/ML 100 ML INFUS..BTL 80 ML IV (19:50)
[2023-09-26] MEDS: 0.9 % Sodium Chloride 1,000 ML 999 ML IV (19:50)
[2023-09-26 21:02] LABS: Appearance Urine Clear; Color Urine Yellow; Glucose Urine UA Negative (Negative); Leukocyte Esterase Urine Negative (Negative); Nitrite Urine Negative (Negative); PH 6.5 (5.0-9.0); Specific Gravity - Urine >= 1.030 (1.005-1.025); Urine Blood Negative (Negative); Urine Ketones Negative (Negative); Urine Protein Negative (Neg-Trace)
[2023-09-26] MEDS: HYDROmorphone HCl 2 MG TABLET PO (21:05)
--- NOTE | 2023-09-26 22:25 | PHA.MEDREC ---
Pharmacy Consult ? Medication Reconciliation Pharmacy has completed the medication reconciliation. Patient was able to list all medications. Reports she was suppose to get Fasenra and IVIG today. Tiff Mccormick, RicardoD
[2023-09-26] MEDS: ondansetron HCL 4 MG/2 ML VIAL IVPUSH (22:39)
[2023-09-26] MEDS: Levothyroxine Sodium 112 MCG TABLET 224 MCG PO (22:43)
[2023-09-26] MEDS: Losartan Potassium 25 MG TABLET PO (22:43)
[2023-09-26] MEDS: Montelukast Sodium 10 MG TABLET PO (22:43)
[2023-09-26] MEDS: Omeprazole 40 MG CAPSULE.DR PO (22:43)
[2023-09-26] MEDS: pyRIDostigmine bromide 60 MG TABLET PO (22:44)
--- NOTE | 2023-09-26 23:41 | PM.IMHP ---
History of Present Illness Date of Service: 09/26/23 Attending physician on admission: Juan Bagley Chief Complaint: Blood per rectum x1 day 52 year old obese white female with history of anemia, hypertension, hyperlipidemia, type two diabetes mellitus, asthma, CHARLES, cellulites, anxiety and chronic pain on oral Hydromorphone, gastritis (on PPI), hypogammaglobulinemia on IVIG who presented to the emergency room complaining of low abdominal pain with associated black stool with some blood clots since 8 AM today. She describes onset of upper abdominal pain last evening and then today morning, the pain became generalized though worse in the low abdomen and was associated with multiple episodes of maroon colored to black loose bowel movements. No bright blood per se. She also describes being nauseated (with no vomiting) and feeling unusually tired and weak. She denies any fevers or chills and also denies any past history of GI hemorrhage. She is however on scheduled Ibuprofen 600 mg twice a day for her arthritis. Work up done in the emergency room was significant for anemia with a hemoglobin of 8 g/dl which is down 2.5 g/dl (from 10.7 on 08/28). Of note, she failed attempts at colonoscopy in the past due to poor prep. Admission was for further work up and management of symptomatic anemia. Review of Systems Review of Systems: Yes all other systems are reviewed and are negative [facility] Medical History Anemia Chronic restrictive lung disease Brugada syndrome Shortness of breath Encounter for care related to Port-a-Cath Tinea pedis Recurrent cellulitis of lower extremity CHARLES (obstructive sleep apnea) Hypogammaglobulinemia Asthma Cellulitis of both lower extremities Right hip pain Lumbar degenerative disc disease Benign essential hypertension Obesity (BMI 30-39.9) Mitochondrial myopathy Asthma Diabetes mellitus History of revision of total replacement of right hip joint (~12/2019) Acquired hypothyroidism Pain of both hip joints Pure hypercholesterolemia Hx of cataract HTN (hypertension) Osteopenia Hypothyroidism Osteoarthritis of hip Gastritis Family History Father Leukemia Mother Hypertension Diabetes Sister Alive and well Brother Pancreatic cancer Paternal Grandmother Stomach cancer Paternal Grandmother Throat cancer Surgical History History of removal of Port-a-Cath History of total right hip arthroplasty (~06/03/19) History of eye surgery (~09/2017) History of hip surgery Hx of foot surgery (~01/02/19) History of removal of cyst Hx of left knee surgery History of elbow surgery (~07/2016) Hx of thumb surgery Hx of appendectomy Hx of hysterectomy (~07/2011) Hx of bilateral breast reduction surgery Social History Household Members: Spouse Housing: Apartment Do you presently have visiting nurse or other home services: No Alcohol intake: former Patient Tobacco Use Status: Never used Tobacco e-Cigarette/Vaping Use: Never Used Second Hand Smoke Exposure: No Advance Directives: No Advance Directives Information Provided: No service: No Current occupational status: disabled Cognitive needs: No Hearing needs: No Vision needs: No Meds Allergies Allergy/AdvReac Type Severity Reaction Status Date / Time cephalexin Allergy Severe Difficulty Verified 09/26/23 11:46 Breathing latex [LATEX] Allergy Severe Difficulty Verified 09/26/23 11:46 Breathing levofloxacin [From LEVAQUIN] Allergy Severe SHORTNESS Verified 09/26/23 11:46 OF BREATH, RASH, rash morphine [MORPHINE] Allergy Severe RASH, Verified 09/26/23 11:46 asthma exacerbation, rash baclofen [BACLOFEN] Allergy Intermediate Rash Verified 09/26/23 11:46 celecoxib [Celebrex] Allergy Intermediate itching, Verified 09/26/23 11:46 rash, flushing prednisone [PREDNISONE] Allergy Intermediate RASH, Verified 09/26/23 11:46 asthma exacerbation, rash codeine Allergy Unknown Rash Verified 09/26/23 11:46 gluten [GLUTEN] Allergy Unknown UNKNOWN Verified 09/26/23 11:46 oxycodone Allergy Unknown rash Verified 09/26/23 11:46 ranitidine Allergy Unknown unknown Verified 09/26/23 11:46 roflumilast [Daliresp] Allergy Unknown rash Verified 09/26/23 11:46 tramadol [TRAMADOL] Allergy Unknown RASH,SHORTNESS Verified 09/26/23 11:46 OF BREATH AND HEADACHE, asthma exacerbation, rash celery Allergy Rash Verified 09/26/23 11:46 cyclobenzaprine Allergy Rash and Verified 09/26/23 11:46 [From Flexeril] asthma exacerbation environmental allergies Allergy Cleaning Verified 09/26/23 11:46 products cause asthma attack pineapple Allergy Rash Verified 09/26/23 11:46 strawberry Allergy Rash Verified 09/26/23 11:46 sulfamethoxazole AdvReac Intermediate vertigo Verified 09/26/23 11:46 [From Bactrim] trimethoprim [From Bactrim] AdvReac Intermediate vertigo Verified 09/26/23 11:46 diazepam [From Valium] AdvReac Cough Verified 09/26/23 11:46 Home Medications Medication Instructions Recorded Confirmed Last Taken Type ipratropium bromide 42 mcg (0.06 2 spray intranasal DAILY 03/11/21 09/26/23 Unknown History %) nasal spray immune glob,gamma(IgG) 5 40 g IV Q3W 07/09/21 09/26/23 3 Weeks Ago History cdsl-dgz-fqby-IgA 0 to 50 mcg/mL ~09/05/23 IV solution (Gammagard S-D (IgA < 1 mcg/mL)) benralizumab 30 mg/mL subcutaneous 30 mg subcut Q8W 10/06/22 09/26/23 8 Weeks Ago History syringe (Fasenra) ~08/01/23 losartan 25 mg tablet 25 mg PO BEDTIME 01/02/23 09/26/23 Unknown History pyridostigmine bromide 60 mg tablet 60 mg PO TID 01/02/23 09/26/23 01/02/23 08:00 History nebulizers 03/09/23 08/30/23 Unknown History clotrimazole 10 mg jacinta 10 mg mucous membrane TID PRN 08/28/23 09/26/23 Unknown History THRUSH amoxicillin 875 mg-potassium 1 tab PO BID PRN FLARE UP 09/26/23 09/26/23 Unknown History clavulanate 125 mg tablet cholecalciferol (vitamin D3) 50 100 mcg PO BEDTIME 09/26/23 09/26/23 Unknown History mcg (2,000 unit) capsule hydromorphone 2 mg tablet 2 mg PO BID pain 09/26/23 09/26/23 Unknown History ibuprofen 600 mg tablet 600 mg PO BID 09/26/23 09/26/23 Unknown History levothyroxine 112 mcg tablet 224 mcg PO BEDTIME 09/26/23 09/26/23 Unknown History (Synthroid) loratadine 10 mg tablet 10 mg PO DAILY 09/26/23 09/26/23 Unknown History metformin 500 mg tablet,extended 1,000 mg PO BID@0900,1700 09/26/23 09/26/23 Unknown History release 24 hr tizanidine 2 mg tablet 4 mg PO BEDTIME muscle spasm 09/26/23 09/26/23 Unknown History Physical Exam Vital Signs and Narrative: Vital Signs: Last Vital Signs Temp 98 F 09/26/23 11:46 Pulse 77 09/26/23 18:50 Resp 18 09/26/23 18:50 BP 133/70 09/26/23 18:50 Pulse Ox 100 09/26/23 18:50 O2 Del Method Room Air 09/26/23 18:50 BMI result Body Mass Index 37.8 General: Well nourished. Awake, alert and oriented x 4. No apparent distress Eyes: No pallor or jaundice. PERRLA, EOMI HENT: Moist oral mucus membranes. No oropharyngeal lesions. Neck: Supple. No cervical adenopathy. No JVD Cardiovascular: Regular rate and rhythm. Normal heart sounds. No murmurs, rubs or gallops. No JVD. No peripheral edema. Respiratory: Normal respiratory effort with no accessory muscle use. CTAB. Gastrointestinal: Abdomen is soft, non-tender, non-distended. Normoactive bowel sounds. No hepatosplenomegaly. MINERVA done by ED provider with maroon colored heme-positive stool Extremities: No edema. No calf tenderness. Good peripheral pulses Skin - Warm/Dry. No rashes. No mottling. Capillary refill is < 2 seconds Neurological - AAOx4. Intact speech & cognition. Normal gait & balance. CN II - XII grossly intact but not individually tested. No motor or sensory deficits Hematologic: No bleeding. No ecchymosis. No swollen or tender lymph nodes. Psychiatric: Cooperative. Appropriate mood and affect . Results Labs 09/26/23 19:27 09/26/23 13:37 Labs: Laboratory Results - last 24 hr 09/26/23 09/26/23 09/26/23 13:37 19:20 19:27 MCV 83.3 82.1 MCH 27.3 26.7 L MCHC 32.8 32.5 RDW 14.0 14.2 Plt Count 175 D 193 MPV 10.6 10.4 Immature Gran % (Auto) 0.4 Neut % (Auto) 62.7 Lymph % (Auto) 30.9 [place] % (Auto) 6.0 Eos % (Auto) 0.0 Baso % (Auto) 0.0 Lymph # (Auto) 2.5 [place] # (Auto) 0.5 Eos # (Auto) 0.0 Baso # (Auto) 0.0 Abs Immat Gran (auto) 0.03 Absolute Neuts (auto) 5.0 Absolute Nucleated RBC 0.000 0.000 Nucleated RBC % (auto) 0.0 0.0 PT 12.1 INR 1.0 Anion Gap 12 Estim Creat Clear Calc 92.3 Estimated GFR > 60 Random Glucose 129 H Calcium 9.2 Magnesium 2.1 Total Bilirubin 0.6 Direct Bilirubin 0.2 AST 22 ALT 31 Alkaline Phosphatase 91 Total Protein 6.2 L Albumin 3.9 Lipase 16 Urine Color Urine Appearance Urine pH Ur Specific [place] Urine Protein Urine Glucose (UA) Urine Ketones Urine Blood Urine Nitrite Ur Leukocyte Esterase Stool Occult Blood POSITIVE Blood Type A Positive Antibody Screen NEGATIVE 09/26/23 20:52 MCV MCH MCHC RDW Plt Count MPV Immature Gran % (Auto) Neut % (Auto) Lymph % (Auto) [place] % (Auto) Eos % (Auto) Baso % (Auto) Lymph # (Auto) [place] # (Auto) Eos # (Auto) Baso # (Auto) Abs Immat Gran (auto) Absolute Neuts (auto) Absolute Nucleated RBC Nucleated RBC % (auto) PT INR Anion Gap Estim Creat Clear Calc Estimated GFR Random Glucose Calcium Magnesium Total Bilirubin Direct Bilirubin AST ALT Alkaline Phosphatase Total Protein Albumin Lipase Urine Color Yellow Urine Appearance Clear Urine pH 6.5 Ur Specific [place] >= 1.030 H Urine Protein Negative Urine Glucose (UA) Negative Urine Ketones Negative Urine Blood Negative Urine Nitrite Negative Ur Leukocyte Esterase Negative Stool Occult Blood Blood Type Antibody Screen ECG ECG interpretation date: 09/26/23 ECG interpretation time: 23:42 Prior ECG tracings: available for review Interpretation: NSR at 75 bpm with RBBB. Normal intervals. No acute ischemic changes. No significant changes from EKG done January 02 2023 Imaging Radiologist's Impressions: Impressions Abdomen/Pelvis CT 09/26/23 19:51 1. There are diverticula of the transverse and descending colon without diverticulitis. 2. Irregular liver contour possibly hepatocellular disease. Correlation needed. 3. No evidence for active GI bleeding. 4. No definite acute intra-abdominal process Fleischner guidelines were utilized. Assessment and Plan (1) Acute GI bleeding: Status: Acute (2) Acute anemia: Status: Acute Plan 52 year old obese white female with history of anemia, hypertension, hyperlipidemia, type two diabetes mellitus, asthma, CHARLES, cellulites, anxiety, chronic pain, gastritis, hypogammaglobulinemia here with 1. Acute GI hemorrhage - unclear etiology at this time but differential diagnosis to include gastritis due to NSAIDs - admit and place on clear liquid diet - continue IV PPI - consult GI (Dr. Delarosa) for evaluation and consideration for colonoscopy 2. Symptomatic anemia - patient with 2.5 g/dl drop in a month - recheck H/H in the morning 3. Hypertension - resume Losartan and Metoprolol 4. Hypothyroidism - resume Levothyroxine 5. Chronic pain syndrome - continue on PRN analgesics 6. Hyperlipidemia - resume Atorvastatin Total time managing care of this patient today: 75 minutes. Quality Stroke Does the patient have a stroke diagnosis?: No VTE Prior VTE?: No VTE Risk Level:: Medical - moderate - high VTE Device Contraindication: N/A - Device Ordered VTE Drug Contraindication: Treatment Not Indicated
[2023-09-27] VITALS (22 sets, daily range): BP systolic 114–163; BP diastolic 56–109; PULSE 66–94; RESP 10–22; TEMP 36.2–36.9; O2SAT 95–100; BMI 37.2
[2023-09-27] MEDS: HYDROmorphone HCl 1 MG/ML SYRINGE 0.5 MG IVPUSH ×3 (03:59→17:50)
[2023-09-27 05:35] LABS: Hematocrit 22.6 % (37.0-47.0); Hemoglobin 7.3 g/dl (12.0-16.0); Mean Corpuscular HGB Conc 32.3 g/dl (31.0-35.0); Mean Corpuscular Hemoglobin 26.6 pg (27.0-33.0); Mean Corpuscular Volume 82.5 fL (80.0-98.0); Mean Platelet Volume 10.2 fL (9.4-12.3); Platelet Count 144 X10*3/uL (160-400); Red Blood Count 2.74 X10*6/uL (4.20-5.50); Red Cell Distribution Width 14.1 % (11.0-16.0); White Blood Count 7.1 X10*3/uL (4.8-10.8)
[2023-09-27 05:51] LABS: Anion Gap 11 (12-20); Blood Urea Nitrogen 17 mg/dL (9-16); Calcium 8.5 mg/dL (8.4-10.2); Carbon Dioxide 25 mmol/L (22-29); Chloride 106 mmol/L (96-108); Creatinine Clr Calc Pharmacy 105.3; Estimated Glomerular Filt Rate > 60; Glucose Random 149 mg/dL (60-115); Potassium 3.6 mmol/L (3.3-5.1); Sodium 138 mmol/L (135-145)
--- NOTE | 2023-09-27 06:33 | P.CNGI_ITS ---
History of Present Illness Data of Consult Service Date: 09/27/23 Primary Care Provider: Cassius Strong MD HPI Reason for consult: anemia 52 year old lady with history of anemia, hypertension, hyperlipidemia, diabetes mellitus, asthma, CHARLES, cellulites, anxiety and chronic pain on oral Hydromorphone, gastritis (on PPI), hypogammaglobulinemia on IVIG who I am seeing for assessment for anemia, Patient presented with sudden onset sharp upper abdominal pain 07/25 with radiation into the lower abdomen with blackish, maroon colored stools for 1-2 d. abdominal pain is worse with movement, not been eating so unsure if food would make it worse. She has noted nausea but no vomiting. admits to tiredness and fatigue. She is on scheduled ibuprofen 600 mg BID for long time. She denies dysphagia . HEr baseline HGB is usu around 11 g/dl but this admission around 8 g/dl with raised urea. . Review of Systems 2 Review of Systems: Constitutional : No Weight loss, No Fever, No Chills ENT/Mouth : No sore throat, No Rhinorrhea Eyes: No Swelling, No Redness Cardiovascular : No Chest Pain, No SOB, No Edema Respiratory : No Cough, No Sputum, No Wheezing Gastrointestinal : see HPI Genitourinary : NO Dysuria, No Urinary Frequency, No Hematuria, No Urgency Musculoskeletal : No joint pain, No Myalgias, No Joint Swelling Skin : No Skin Lesions, No rash Neuro : No Weakness, No Numbness, No Dizziness, No Headache Psych : No Anxiety/Panic, No Depression Heme/Lymph: No Bruising, No Lymphadenopathy Endocrine : No Polyuria, No Polydipsia All other systems reviewed and are negative. [facility] Past Medical History Medical History Anemia Chronic restrictive lung disease Brugada syndrome Shortness of breath Encounter for care related to Port-a-Cath Tinea pedis Recurrent cellulitis of lower extremity CHARLES (obstructive sleep apnea) Hypogammaglobulinemia Asthma Cellulitis of both lower extremities Right hip pain Lumbar degenerative disc disease Benign essential hypertension Obesity (BMI 30-39.9) Mitochondrial myopathy Asthma Diabetes mellitus History of revision of total replacement of right hip joint (~12/2019) Acquired hypothyroidism Pain of both hip joints Pure hypercholesterolemia Hx of cataract HTN (hypertension) Osteopenia Hypothyroidism Osteoarthritis of hip Gastritis Family History Family History Father Leukemia Mother Hypertension Diabetes Sister Alive and well Brother Pancreatic cancer Paternal Grandmother Stomach cancer Paternal Grandmother Throat cancer Surgical History Surgical History History of removal of Port-a-Cath History of total right hip arthroplasty (~06/03/19) History of eye surgery (~09/2017) History of hip surgery Hx of foot surgery (~01/02/19) History of removal of cyst Hx of left knee surgery History of elbow surgery (~07/2016) Hx of thumb surgery Hx of appendectomy Hx of hysterectomy (~07/2011) Hx of bilateral breast reduction surgery Social History Social History Household Members: Family Housing: Apartment Do you presently have visiting nurse or other home services: No Alcohol intake: former Patient Tobacco Use Status: Never used Tobacco e-Cigarette/Vaping Use: Never Used Second Hand Smoke Exposure: No service: No Current occupational status: disabled Cognitive needs: No Hearing needs: No Vision needs: No Meds Allergies Allergy/AdvReac Type Severity Reaction Status Date / Time cephalexin Allergy Severe Difficulty Verified 09/26/23 11:46 Breathing latex [LATEX] Allergy Severe Difficulty Verified 09/26/23 11:46 Breathing levofloxacin [From LEVAQUIN] Allergy Severe SHORTNESS Verified 09/26/23 11:46 OF BREATH, RASH, rash morphine [MORPHINE] Allergy Severe RASH, Verified 09/26/23 11:46 asthma exacerbation, rash baclofen [BACLOFEN] Allergy Intermediate Rash Verified 09/26/23 11:46 celecoxib [Celebrex] Allergy Intermediate itching, Verified 09/26/23 11:46 rash, flushing prednisone [PREDNISONE] Allergy Intermediate RASH, Verified 09/26/23 11:46 asthma exacerbation, rash codeine Allergy Unknown Rash Verified 09/26/23 11:46 gluten [GLUTEN] Allergy Unknown UNKNOWN Verified 09/26/23 11:46 oxycodone Allergy Unknown rash Verified 09/26/23 11:46 ranitidine Allergy Unknown unknown Verified 09/26/23 11:46 roflumilast [Daliresp] Allergy Unknown rash Verified 09/26/23 11:46 tramadol [TRAMADOL] Allergy Unknown RASH,SHORTNESS Verified 09/26/23 11:46 OF BREATH AND HEADACHE, asthma exacerbation, rash celery Allergy Rash Verified 09/26/23 11:46 cyclobenzaprine Allergy Rash and Verified 09/26/23 11:46 [From Flexeril] asthma exacerbation environmental allergies Allergy Cleaning Verified 09/26/23 11:46 products cause asthma attack pineapple Allergy Rash Verified 09/26/23 11:46 strawberry Allergy Rash Verified 09/26/23 11:46 sulfamethoxazole AdvReac Intermediate vertigo Verified 09/26/23 11:46 [From Bactrim] trimethoprim [From Bactrim] AdvReac Intermediate vertigo Verified 09/26/23 11:46 diazepam [From Valium] AdvReac Cough Verified 09/26/23 11:46 Active Medications: Current Medications Acetaminophen (Acetaminophen 325 Mg Tablet) 650 mg PO Q6H PRN PRN Reason: Pain, Mild (Pain Scale 1-3) Al Hydroxide/Mg Hydroxide (Magnesium Hydrox/Alum Hydrox 30 Ml Oral.Susp) 30 ml PO Q4H PRN PRN Reason: Heartburn/Nausea Atorvastatin Calcium (Atorvastatin Calcium 40 Mg Tablet) 40 mg PO DAILY@1800 FLORECITA Hydromorphone HCl (Hydromorphone Hcl 1 Mg/Ml Syringe) 0.5 mg IVPUSH Q4H PRN; Protocol PRN Reason: Pain, Severe (Pain Scale 7-10) Last Admin: 09/27/23 03:59 Dose: 0.5 mg Levothyroxine Sodium (Levothyroxine Sodium 112 Mcg Tablet) 224 mcg PO BEDTIME FLORECITA Last Admin: 09/26/23 22:43 Dose: 224 mcg Loratadine (Loratadine 10 Mg Tablet) 10 mg PO DAILY FLORECITA Losartan Potassium (Losartan Potassium 25 Mg Tablet) 25 mg PO BEDTIME FLORECITA; Protocol Last Admin: 09/26/23 22:43 Dose: 25 mg Melatonin (Melatonin 3 Mg Tablet) 6 mg PO BEDTIME PRN PRN Reason: Insomnia Metoprolol Succinate (Metoprolol Succinate Er 50 Mg Tab.Er.24h) 50 mg PO DAILY FLORECITA; Protocol Montelukast Sodium (Montelukast Sodium 10 Mg Tablet) 10 mg PO BEDTIME FLORECITA Last Admin: 09/26/23 22:43 Dose: 10 mg Omeprazole (Omeprazole 40 Mg Capsule.Dr) 40 mg PO DAILY@1630 [facility] Last Admin: 09/26/23 22:43 Dose: 40 mg Ondansetron HCl (Ondansetron Hcl 4 Mg/2 Ml Vial) 4 mg IVPUSH Q8H PRN PRN Reason: Nausea and Vomiting Last Admin: 09/26/23 22:39 Dose: 4 mg Pantoprazole Sodium (Pantoprazole Sodium 40 Mg/10 Ml Vial) 40 mg IVPUSH BID@0630,1630 [facility] Pyridostigmine [place] (Pyridostigmine [place] 60 Mg Tablet) 60 mg PO TID [facility] Last Admin: 09/26/23 22:44 Dose: 60 mg Sodium Chloride (0.9 % Sodium Chloride Flush 3 Ml Syringe) 3 ml IVFLUSH QSHIFT [facility] Last Admin: 09/27/23 01:40 Dose: Not Given Tizanidine HCl (Tizanidine Hcl 4 Mg Tablet) 4 mg PO BEDTIME [facility] Last Admin: 09/26/23 22:45 Dose: Not Given Vitamin D (Cholecalciferol (Vitamin D3) 25 Mcg Tablet) 100 mcg PO BEDTIME [facility] Home Medications Medication Instructions Recorded Confirmed Last Taken Type ipratropium bromide 42 mcg (0.06 2 spray intranasal DAILY 03/11/21 09/26/23 Unknown History %) nasal spray immune glob,gamma(IgG) 5 40 g IV Q3W 07/09/21 09/26/23 3 Weeks Ago History qsxu-frh-pkey-IgA 0 to 50 mcg/mL ~09/05/23 IV solution (Gammagard S-D (IgA < 1 mcg/mL)) benralizumab 30 mg/mL subcutaneous 30 mg subcut Q8W 10/06/22 09/26/23 8 Weeks Ago History syringe (Fasenra) ~08/01/23 losartan 25 mg tablet 25 mg PO BEDTIME 01/02/23 09/26/23 Unknown History pyridostigmine bromide 60 mg tablet 60 mg PO TID 01/02/23 09/26/23 01/02/23 08:00 History nebulizers 03/09/23 08/30/23 Unknown History clotrimazole 10 mg jacinta 10 mg mucous membrane TID PRN 08/28/23 09/26/23 Unknown History THRUSH amoxicillin 875 mg-potassium 1 tab PO BID PRN FLARE UP 09/26/23 09/26/23 Unknown History clavulanate 125 mg tablet cholecalciferol (vitamin D3) 50 100 mcg PO BEDTIME 09/26/23 09/26/23 Unknown History mcg (2,000 unit) capsule hydromorphone 2 mg tablet 2 mg PO BID pain 09/26/23 09/26/23 Unknown History ibuprofen 600 mg tablet 600 mg PO BID 09/26/23 09/26/23 Unknown History levothyroxine 112 mcg tablet 224 mcg PO BEDTIME 09/26/23 09/26/23 Unknown History (Synthroid) loratadine 10 mg tablet 10 mg PO DAILY 09/26/23 09/26/23 Unknown History metformin 500 mg tablet,extended 1,000 mg PO BID@0900,1700 09/26/23 09/26/23 Unknown History release 24 hr tizanidine 2 mg tablet 4 mg PO BEDTIME muscle spasm 09/26/23 09/26/23 Unknown History Physical Exam 2 Vital Signs: Vital Signs: Last Vital Signs Temp 98.0 F 09/27/23 00:17 Pulse 71 09/27/23 00:17 Resp 17 09/27/23 00:17 BP 141/71 H 09/27/23 00:17 Pulse Ox 98 09/27/23 00:17 O2 Del Method Room Air 09/27/23 00:17 BMI result Body Mass Index 37.8 EXAM: GENERAL: The patient is well developed and nontoxic. VITAL SIGNS:see workflow HEENT: Nonicteric sclerae, PERRLA, EOMI. Oropharynx clear. Moist mucous membranes. Conjunctivae appear well perfused. No thyroid mass. CHEST: Chest wall is nontender. HEART: Regular rate and rhythm without murmurs. LUNGS: Clear to auscultation bilaterally. ABDOMEN: Soft, positive bowel sounds, tender epigastrium, no organomegaly.no flank tenderness SKIN: No rash, no excessive bruising, petechiae, or purpura. NEUROLOGIC: Cranial nerves II-XII intact without motor/sensory deficit. psych: nml affect Results Labs 09/27/23 05:17 09/27/23 05:17 Labs: Short CBC 09/26/23 09/26/23 09/27/23 Range/Units 13:37 19:27 05:17 WBC 8.0 9.3 7.1 (4.8-10.8) X10*3/uL Hgb 8.5 L D 8.2 L 7.3 L (12.0-16.0) g/dl Hct 25.9 L D 25.2 L 22.6 L (37.0-47.0) % Plt Count 175 D 193 144 L D (160-400) X10*3/uL BMP 09/26/23 09/27/23 13:37 05:17 Sodium 138 138 Potassium 3.8 3.6 Chloride 105 106 Carbon Dioxide 25 25 BUN 26 H 17 H Creatinine 0.81 0.71 Calcium 9.2 8.5 D Liver Function 09/26/23 Range/Units 13:37 Total Bilirubin 0.6 (0.0-1.0) mg/dL Direct Bilirubin 0.2 (0.0-0.5) mg/dL AST 22 (5-31) U/L ALT 31 (0-31) U/L Alkaline Phosphatase 91 (39-117) U/L Albumin 3.9 (3.5-5.0) g/dL Urine 09/26/23 Range/Units 20:52 Urine Color Yellow Urine Appearance Clear Urine pH 6.5 (5.0-9.0) Ur Specific [place] >= 1.030 H (1.005-1.025) Urine Protein Negative (Neg-Trace) mg/dL Urine Glucose (UA) Negative (Negative) mg/dL Imaging CT scan - abdomen: Attestation: I personally reviewed and interpreted this imaging study as follows: (no active gi bleeding on contrast scan, thickened stomach, diverticulosis) Assessment and Plan (1) Acute GI bleeding: Status: Acute Plan 1/ Acute blood loss anemia concern would be PUD, erosive esophagitis, dieulafoy, AVM, right sided colon lesion, neoplasia--thickened stomach on CT PLAN: 1/ EGD today 2/ cont with PPI and keep NPO 3/ trasnfuse for target HGB 9 g/dl Procedures Date of Service Date of Service: 09/27/23
[2023-09-27] MEDS: Loratadine 10 MG TABLET PO (07:39)
[2023-09-27] MEDS: Metoprolol Succinate ER 50 MG TAB.ER.24H PO (07:39)
[2023-09-27] MEDS: Pantoprazole Sodium 40 MG/10 ML VIAL IVPUSH ×2 (07:40→17:49)
[2023-09-27] MEDS: pyRIDostigmine bromide 60 MG TABLET PO (07:40)
[2023-09-27] MEDS: 0.9 % Sodium Chloride Flush 3 ML SYRINGE IVFLUSH ×2 (07:41→18:00)
[2023-09-27] MEDS: ondansetron HCL 4 MG/2 ML VIAL IVPUSH ×3 (09:30→22:32)
[2023-09-27 11:16] LABS: Appearance Urine Clear; Color Urine Yellow; Glucose Urine UA Negative (Negative); Leukocyte Esterase Urine Trace (Negative); Nitrite Urine Negative (Negative); PH 5.5 (5.0-9.0); UMIC TRIGGER UA YES; Urine Blood Negative (Negative); Urine Ketones Negative (Negative); Urine Protein Negative (Neg-Trace)
[2023-09-27 12:04] LABS: Glucose, Whole Blood 163 mg/dL (60-115)
[2023-09-27 12:12] LABS: Bacteria Urine None Seen (None Seen); Hyaline Casts Urine 0-2 /LPF (0-2); RBC Urine 0-2 /HPF (0-2); Squamous Epithelial Cell Urine 0-2 /HPF (0-2); WBC Urine 0-5 /HPF (0-5)
--- NOTE | 2023-09-27 14:15 | HO.ANESPROP2 ---
HPI - Anesthesia Eval Consult details Narrative: EGD PMFSH Active Problems Active Problems: All Active Problems (Updated 09/26/23 @ 21:10 by Erika Schaffer DO) Acute anemia (Acute) Acute GI bleeding (Acute) Left hip pain (Acute) Neck pain (Acute) Lipoma (Acute) Ganglion cyst (Acute) Anemia (Acute) Cellulitis of chest wall (Acute) Dizziness (Acute) Port-A-Cath in place (Acute) Chalazion right upper eyelid (Acute) Preop cardiovascular exam (Acute) Pain from implanted hardware (Acute) Preoperative examination (Acute) Soft tissue calcification (Acute) Skin lesion of scalp (Acute) Gastritis (Acute) Osteoarthritis of hip (Acute) Hypothyroidism (Acute) Osteopenia (Acute) Pure hypercholesterolemia (Acute) Pain of both hip joints (Acute) Acquired hypothyroidism (Acute) Tinea cruris (Acute) Abnormal EKG (Acute) Asthma (Acute) Benign essential hypertension (Acute) Cellulitis of foot (Acute) Lumbar degenerative disc disease (Acute) Right hip pain (Acute) Cellulitis of both lower extremities (Acute) Asthma (Acute) Hypogammaglobulinemia (Acute) CHARLES (obstructive sleep apnea) (Acute) Recurrent cellulitis of lower extremity (Acute) Tinea pedis (Acute) Encounter for care related to Port-a-Cath (Acute) Cellulitis (Acute) Lipoma (Acute) Cellulitis of right lower leg (Acute) Mild anxiety (Acute) Past Medical History Medical History Anemia Chronic restrictive lung disease Brugada syndrome Shortness of breath Encounter for care related to Port-a-Cath Tinea pedis Recurrent cellulitis of lower extremity CHARLES (obstructive sleep apnea) Hypogammaglobulinemia Asthma Cellulitis of both lower extremities Right hip pain Lumbar degenerative disc disease Benign essential hypertension Obesity (BMI 30-39.9) Mitochondrial myopathy Asthma Diabetes mellitus History of revision of total replacement of right hip joint (~12/2019) Acquired hypothyroidism Pain of both hip joints Pure hypercholesterolemia Hx of cataract HTN (hypertension) Osteopenia Hypothyroidism Osteoarthritis of hip Gastritis Family History Family History Father Leukemia Mother Hypertension Diabetes Sister Alive and well Brother Pancreatic cancer Paternal Grandmother Stomach cancer Paternal Grandmother Throat cancer Family history of problems with anesthesia: No Surgical History Surgical History History of removal of Port-a-Cath History of total right hip arthroplasty (~06/03/19) History of eye surgery (~09/2017) History of hip surgery Hx of foot surgery (~01/02/19) History of removal of cyst Hx of left knee surgery History of elbow surgery (~07/2016) Hx of thumb surgery Hx of appendectomy Hx of hysterectomy (~07/2011) Hx of bilateral breast reduction surgery History of Problems with Anesthesia: No Social History Social History Household Members: Family Housing: Apartment Do you presently have visiting nurse or other home services: No Alcohol intake: former Patient Tobacco Use Status: Never used Tobacco e-Cigarette/Vaping Use: Never Used Second Hand Smoke Exposure: No service: No Current occupational status: disabled Cognitive needs: No Hearing needs: No Vision needs: No Meds Allergies Allergy/AdvReac Type Severity Reaction Status Date / Time cephalexin Allergy Severe Difficulty Verified 09/26/23 11:46 Breathing latex [LATEX] Allergy Severe Difficulty Verified 09/26/23 11:46 Breathing levofloxacin [From LEVAQUIN] Allergy Severe SHORTNESS Verified 09/26/23 11:46 OF BREATH, RASH, rash morphine [MORPHINE] Allergy Severe RASH, Verified 09/26/23 11:46 asthma exacerbation, rash baclofen [BACLOFEN] Allergy Intermediate Rash Verified 09/26/23 11:46 celecoxib [Celebrex] Allergy Intermediate itching, Verified 09/26/23 11:46 rash, flushing prednisone [PREDNISONE] Allergy Intermediate RASH, Verified 09/26/23 11:46 asthma exacerbation, rash codeine Allergy Unknown Rash Verified 09/26/23 11:46 gluten [GLUTEN] Allergy Unknown UNKNOWN Verified 09/26/23 11:46 oxycodone Allergy Unknown rash Verified 09/26/23 11:46 ranitidine Allergy Unknown unknown Verified 09/26/23 11:46 roflumilast [Daliresp] Allergy Unknown rash Verified 09/26/23 11:46 tramadol [TRAMADOL] Allergy Unknown RASH,SHORTNESS Verified 09/26/23 11:46 OF BREATH AND HEADACHE, asthma exacerbation, rash celery Allergy Rash Verified 09/26/23 11:46 cyclobenzaprine Allergy Rash and Verified 09/26/23 11:46 [From Flexeril] asthma exacerbation environmental allergies Allergy Cleaning Verified 09/26/23 11:46 products cause asthma attack pineapple Allergy Rash Verified 09/26/23 11:46 strawberry Allergy Rash Verified 09/26/23 11:46 sulfamethoxazole AdvReac Intermediate vertigo Verified 09/26/23 11:46 [From Bactrim] trimethoprim [From Bactrim] AdvReac Intermediate vertigo Verified 09/26/23 11:46 diazepam [From Valium] AdvReac Cough Verified 09/26/23 11:46 Active Medications: Current Medications Acetaminophen (Acetaminophen 325 Mg Tablet) 650 mg PO Q6H PRN PRN Reason: Pain, Mild (Pain Scale 1-3) Al Hydroxide/Mg Hydroxide (Magnesium Hydrox/Alum Hydrox 30 Ml Oral.Susp) 30 ml PO Q4H PRN PRN Reason: Heartburn/Nausea Atorvastatin Calcium (Atorvastatin Calcium 40 Mg Tablet) 40 mg PO DAILY@1800 FLORECITA Hydromorphone HCl (Hydromorphone Hcl 1 Mg/Ml Syringe) 0.5 mg IVPUSH Q4H PRN; Protocol PRN Reason: Pain, Severe (Pain Scale 7-10) Last Admin: 09/27/23 09:23 Dose: 0.5 mg Levothyroxine Sodium (Levothyroxine Sodium 112 Mcg Tablet) 224 mcg PO BEDTIME [facility] Last Admin: 09/26/23 22:43 Dose: 224 mcg Loratadine (Loratadine 10 Mg Tablet) 10 mg PO DAILY [facility] Last Admin: 09/27/23 07:39 Dose: 10 mg Losartan Potassium (Losartan Potassium 25 Mg Tablet) 25 mg PO BEDTIME [facility]; Protocol Last Admin: 09/26/23 22:43 Dose: 25 mg Melatonin (Melatonin 3 Mg Tablet) 6 mg PO BEDTIME PRN PRN Reason: Insomnia Metoprolol Succinate (Metoprolol Succinate Er 50 Mg Tab.Er.24h) 50 mg PO DAILY [facility]; Protocol Last Admin: 09/27/23 07:39 Dose: 50 mg Montelukast Sodium (Montelukast Sodium 10 Mg Tablet) 10 mg PO BEDTIME [facility] Last Admin: 09/26/23 22:43 Dose: 10 mg Omeprazole (Omeprazole 40 Mg Capsule.Dr) 40 mg PO DAILY@1630 [facility] Last Admin: 09/26/23 22:43 Dose: 40 mg Ondansetron HCl (Ondansetron Hcl 4 Mg/2 Ml Vial) 4 mg IVPUSH Q8H PRN PRN Reason: Nausea and Vomiting Last Admin: 09/27/23 09:30 Dose: 4 mg Pantoprazole Sodium (Pantoprazole Sodium 40 Mg/10 Ml Vial) 40 mg IVPUSH BID@0630,1630 [facility] Last Admin: 09/27/23 07:40 Dose: 40 mg Pyridostigmine [place] (Pyridostigmine [place] 60 Mg Tablet) 60 mg PO TID [facility] Last Admin: 09/27/23 07:40 Dose: 60 mg Sodium Chloride (0.9 % Sodium Chloride Flush 3 Ml Syringe) 3 ml IVFLUSH QSHIFT [facility] Last Admin: 09/27/23 07:41 Dose: 3 ml Tizanidine HCl (Tizanidine Hcl 4 Mg Tablet) 4 mg PO BEDTIME [facility] Last Admin: 09/26/23 22:45 Dose: Not Given Vitamin D (Cholecalciferol (Vitamin D3) 25 Mcg Tablet) 100 mcg PO BEDTIME [facility] Home Medications Medication Instructions Recorded Confirmed Last Taken Type ipratropium bromide 42 mcg (0.06 2 spray intranasal DAILY 03/11/21 09/26/23 Unknown History %) nasal spray immune glob,gamma(IgG) 5 40 g IV Q3W 07/09/21 09/26/23 3 Weeks Ago History ryvt-pac-gegw-IgA 0 to 50 mcg/mL ~09/05/23 IV solution (Gammagard S-D (IgA < 1 mcg/mL)) benralizumab 30 mg/mL subcutaneous 30 mg subcut Q8W 10/06/22 09/26/23 8 Weeks Ago History syringe (Fasenra) ~08/01/23 losartan 25 mg tablet 25 mg PO BEDTIME 01/02/23 09/26/23 Unknown History pyridostigmine bromide 60 mg tablet 60 mg PO TID 01/02/23 09/26/23 01/02/23 08:00 History nebulizers 03/09/23 08/30/23 Unknown History clotrimazole 10 mg jacinta 10 mg mucous membrane TID PRN 08/28/23 09/26/23 Unknown History THRUSH amoxicillin 875 mg-potassium 1 tab PO BID PRN FLARE UP 09/26/23 09/26/23 Unknown History clavulanate 125 mg tablet cholecalciferol (vitamin D3) 50 100 mcg PO BEDTIME 09/26/23 09/26/23 Unknown History mcg (2,000 unit) capsule hydromorphone 2 mg tablet 2 mg PO BID pain 09/26/23 09/26/23 Unknown History ibuprofen 600 mg tablet 600 mg PO BID 09/26/23 09/26/23 Unknown History levothyroxine 112 mcg tablet 224 mcg PO BEDTIME 09/26/23 09/26/23 Unknown History (Synthroid) loratadine 10 mg tablet 10 mg PO DAILY 09/26/23 09/26/23 Unknown History metformin 500 mg tablet,extended 1,000 mg PO BID@0900,1700 09/26/23 09/26/23 Unknown History release 24 hr tizanidine 2 mg tablet 4 mg PO BEDTIME muscle spasm 09/26/23 09/26/23 Unknown History Exam Height,Weight and Vital Signs: Height 5 ft 4 in Weight 98.2 kg Last Vital Signs Temp 97.7 F 09/27/23 13:51 Pulse 67 09/27/23 13:51 Resp 16 09/27/23 13:51 BP 136/64 09/27/23 13:51 Pulse Ox 98 09/27/23 12:12 O2 Del Method Room Air 09/27/23 12:12 Pertinent Lab Results Pertinent Lab Results: Laboratory Tests 09/26/23 09/26/23 09/26/23 13:37 19:20 19:27 WBC 8.0 9.3 RBC 3.11 L D 3.07 L Hgb 8.5 L D 8.2 L Hct 25.9 L D 25.2 L MCV 83.3 82.1 MCH 27.3 26.7 L MCHC 32.8 32.5 RDW 14.0 14.2 Plt Count 175 D 193 MPV 10.6 10.4 Immature Gran % (Auto) 0.4 Neut % (Auto) 62.7 Lymph % (Auto) 30.9 [place] % (Auto) 6.0 Eos % (Auto) 0.0 Baso % (Auto) 0.0 Lymph # (Auto) 2.5 [place] # (Auto) 0.5 Eos # (Auto) 0.0 Baso # (Auto) 0.0 Abs Immat Gran (auto) 0.03 Absolute Neuts (auto) 5.0 Absolute Nucleated RBC 0.000 0.000 Nucleated RBC % (auto) 0.0 0.0 PT 12.1 INR 1.0 Sodium 138 Potassium 3.8 Chloride 105 Carbon Dioxide 25 Anion Gap 12 BUN 26 H Creatinine 0.81 Estim Creat Clear Calc 92.3 Estimated GFR > 60 POC Glucose Random Glucose 129 H Calcium 9.2 Magnesium 2.1 Total Bilirubin 0.6 Direct Bilirubin 0.2 AST 22 ALT 31 Alkaline Phosphatase 91 Total Protein 6.2 L Albumin 3.9 Lipase 16 Urine Color Urine Appearance Urine pH Ur Specific [place] Urine Protein Urine Glucose (UA) Urine Ketones Urine Blood Urine Nitrite Ur Leukocyte Esterase Urine RBC Urine WBC Ur Squamous Epith Cells Urine Bacteria Hyaline Casts Stool Occult Blood POSITIVE Blood Type A Positive Antibody Screen NEGATIVE Crossmatch See Detail 09/26/23 09/27/23 09/27/23 20:52 05:17 11:06 WBC 7.1 RBC 2.74 L Hgb 7.3 L Hct 22.6 L MCV 82.5 MCH 26.6 L MCHC 32.3 RDW 14.1 Plt Count 144 L D MPV 10.2 Immature Gran % (Auto) Neut % (Auto) Lymph % (Auto) [place] % (Auto) Eos % (Auto) Baso % (Auto) Lymph # (Auto) [place] # (Auto) Eos # (Auto) Baso # (Auto) Abs Immat Gran (auto) Absolute Neuts (auto) Absolute Nucleated RBC 0.000 Nucleated RBC % (auto) 0.0 PT INR Sodium 138 Potassium 3.6 Chloride 106 Carbon Dioxide 25 Anion Gap 11 L BUN 17 H Creatinine 0.71 Estim Creat Clear Calc 105.3 Estimated GFR > 60 POC Glucose Random Glucose 149 H Calcium 8.5 D Magnesium Total Bilirubin Direct Bilirubin AST ALT Alkaline Phosphatase Total Protein Albumin Lipase Urine Color Yellow Yellow Urine Appearance Clear Clear Urine pH 6.5 5.5 Ur Specific [place] >= 1.030 H 1.020 Urine Protein Negative Negative Urine Glucose (UA) Negative Negative Urine Ketones Negative Negative Urine Blood Negative Negative Urine Nitrite Negative Negative Ur Leukocyte Esterase Negative Trace H Urine RBC 0-2 Urine WBC 0-5 Ur Squamous Epith Cells 0-2 Urine Bacteria None Seen Hyaline Casts 0-2 Stool Occult Blood Blood Type Antibody Screen Crossmatch 09/27/23 11:59 WBC RBC Hgb Hct MCV MCH MCHC RDW Plt Count MPV Immature Gran % (Auto) Neut % (Auto) Lymph % (Auto) [place] % (Auto) Eos % (Auto) Baso % (Auto) Lymph # (Auto) [place] # (Auto) Eos # (Auto) Baso # (Auto) Abs Immat Gran (auto) Absolute Neuts (auto) Absolute Nucleated RBC Nucleated RBC % (auto) PT INR Sodium Potassium Chloride Carbon Dioxide Anion Gap BUN Creatinine Estim Creat Clear Calc Estimated GFR POC Glucose 163 H Random Glucose Calcium Magnesium Total Bilirubin Direct Bilirubin AST ALT Alkaline Phosphatase Total Protein Albumin Lipase Urine Color Urine Appearance Urine pH Ur Specific [place] Urine Protein Urine Glucose (UA) Urine Ketones Urine Blood Urine Nitrite Ur Leukocyte Esterase Urine RBC Urine WBC Ur Squamous Epith Cells Urine Bacteria Hyaline Casts Stool Occult Blood Blood Type Antibody Screen Crossmatch Airway Mallampati Class: II TM Dist: >3cm Neck ROM: Limited Heart: rrr Lungs: cta Assessment and Plan Assessment Anesthesia Assessment: Anesthesia Plan Discussed Final Anesthetic Review Family History of Problems with Anesthesia: No History of Problems with Anesthesia: No NPO: Yes ASA Class: III Final Preanesthetic Review: No Changes in Pt Med Stat, Meds/Allgs Chart Reviewed, Consent Obtained/Reviewed and Anes Risks/Benef Reviewed Patient Risk: Intermediate Procedure Risk: Intermediate Anesthetic Plan Anesthetic Plan: GA and Agree w/ Assess. and Plan Disposition: Standard PACU
--- NOTE | 2023-09-27 14:20 | HO.PM.IMPN ---
Subjective Subjective Date of Service: 09/27/23 Interval History: being followed for black /melanotic stools with abdominal pain, since arrival to ED no further episode of bloody stools, complaining of persistent nausea and lower abdominal discomfort, is NPO for egd this afternoon. Review of Systems all other system reviewed and negative Physical Exam Vital Signs: Vital Signs: Last Vital Signs Temp 97.7 F 09/27/23 13:51 Pulse 67 09/27/23 13:51 Resp 16 09/27/23 13:51 BP 136/64 09/27/23 13:51 Pulse Ox 98 09/27/23 12:12 O2 Del Method Room Air 09/27/23 12:12 BMI result Body Mass Index 37.2 Const: Other: Constitutional : A wake, alert x3 in no acute distress Neck : no JVD, Sup ple Cardiovascular : RRR, Respirato ry : good bilatera l air entry, no c rackles, wheezes o r rhonchi Gastroin testinal: soft, bowel sounds audib le, mild lower ab dominal tenderness with palpation, n o rebound, no rigi dity extremities n o edema Skin : War m, Dry, no rash N eurological : Aler t & oriented x3, N o focal deficit , CN 2-12 within nor mal Objective Data Active Medications Acetaminophen (Acetaminophen 325 Mg Tablet) 650 mg PO Q6H PRN PRN Reason: Pain, Mild (Pain Scale 1-3) Al Hydroxide/Mg Hydroxide (Magnesium Hydrox/Alum Hydrox 30 Ml Oral.Susp) 30 ml PO Q4H PRN PRN Reason: Heartburn/Nausea Atorvastatin Calcium (Atorvastatin Calcium 40 Mg Tablet) 40 mg PO DAILY@1800 [facility] Hydromorphone HCl (Hydromorphone Hcl 1 Mg/Ml Syringe) 0.5 mg IVPUSH Q4H PRN; Protocol PRN Reason: Pain, Severe (Pain Scale 7-10) Last Admin: 09/27/23 09:23 Dose: 0.5 mg Documented By: SUGEY Levothyroxine Sodium (Levothyroxine Sodium 112 Mcg Tablet) 224 mcg PO BEDTIME [facility] Last Admin: 09/26/23 22:43 Dose: 224 mcg Documented By: DARRYN Loratadine (Loratadine 10 Mg Tablet) 10 mg PO DAILY [facility] Last Admin: 09/27/23 07:39 Dose: 10 mg Documented By: SUGEY Losartan Potassium (Losartan Potassium 25 Mg Tablet) 25 mg PO BEDTIME [facility]; Protocol Last Admin: 09/26/23 22:43 Dose: 25 mg Documented By: DARRYN Melatonin (Melatonin 3 Mg Tablet) 6 mg PO BEDTIME PRN PRN Reason: Insomnia Metoprolol Succinate (Metoprolol Succinate Er 50 Mg Tab.Er.24h) 50 mg PO DAILY [facility]; Protocol Last Admin: 09/27/23 07:39 Dose: 50 mg Documented By: SUGEY Montelukast Sodium (Montelukast Sodium 10 Mg Tablet) 10 mg PO BEDTIME [facility] Last Admin: 09/26/23 22:43 Dose: 10 mg Documented By: DARRYN Omeprazole (Omeprazole 40 Mg Capsule.Dr) 40 mg PO DAILY@1630 [facility] Last Admin: 09/26/23 22:43 Dose: 40 mg Documented By: DARRYN Ondansetron HCl (Ondansetron Hcl 4 Mg/2 Ml Vial) 4 mg IVPUSH Q8H PRN PRN Reason: Nausea and Vomiting Last Admin: 09/27/23 09:30 Dose: 4 mg Documented By: SUGEY Pantoprazole Sodium (Pantoprazole Sodium 40 Mg/10 Ml Vial) 40 mg IVPUSH BID@0630,1630 [facility] Last Admin: 09/27/23 07:40 Dose: 40 mg Documented By: SUGEY Pyridostigmine [place] (Pyridostigmine [place] 60 Mg Tablet) 60 mg PO TID [facility] Last Admin: 09/27/23 07:40 Dose: 60 mg Documented By: SUGEY Sodium Chloride (0.9 % Sodium Chloride Flush 3 Ml Syringe) [address] [facility] Last Admin: 09/27/23 07:41 Dose: 3 ml Documented By: SUGEY Tizanidine HCl (Tizanidine Hcl 4 Mg Tablet) 4 mg PO BEDTIME [facility] Last Admin: 09/26/23 22:45 Dose: Not Given Documented By: DARRYN Non-Admin Reason: Patient Refused Vitamin D (Cholecalciferol (Vitamin D3) 25 Mcg Tablet) 100 mcg PO BEDTIME [facility] Labs 09/27/23 05:17 09/27/23 05:17 Labs: Laboratory Results - last 24 hr 09/26/23 09/26/23 09/26/23 19:20 19:27 20:52 MCV 82.1 MCH 26.7 L MCHC 32.5 RDW 14.2 Plt Count 193 MPV 10.4 Absolute Nucleated RBC 0.000 Nucleated RBC % (auto) 0.0 Anion Gap Estim Creat Clear Calc Estimated GFR POC Glucose Random Glucose Calcium Urine Color Yellow Urine Appearance Clear Urine pH 6.5 Ur Specific Frederic >= 1.030 H Urine Protein Negative Urine Glucose (UA) Negative Urine Ketones Negative Urine Blood Negative Urine Nitrite Negative Ur Leukocyte Esterase Negative Urine RBC Urine WBC Ur Squamous Epith Cells Urine Bacteria Hyaline Casts Stool Occult Blood POSITIVE Blood Type A Positive Antibody Screen NEGATIVE Crossmatch See Detail 09/27/23 09/27/23 09/27/23 05:17 11:06 11:59 MCV 82.5 MCH 26.6 L MCHC 32.3 RDW 14.1 Plt Count 144 L D MPV 10.2 Absolute Nucleated RBC 0.000 Nucleated RBC % (auto) 0.0 Anion Gap 11 L Estim Creat Clear Calc 105.3 Estimated GFR > 60 POC Glucose 163 H Random Glucose 149 H Calcium 8.5 D Urine Color Yellow Urine Appearance Clear Urine pH 5.5 Ur Specific Frederic 1.020 Urine Protein Negative Urine Glucose (UA) Negative Urine Ketones Negative Urine Blood Negative Urine Nitrite Negative Ur Leukocyte Esterase Trace H Urine RBC 0-2 Urine WBC 0-5 Ur Squamous Epith Cells 0-2 Urine Bacteria None Seen Hyaline Casts 0-2 Stool Occult Blood Blood Type Antibody Screen Crossmatch Assessment and Plan (1) Acute anemia: Status: Acute (2) Acute GI bleeding: Status: Acute Plan 52 year old obese white female with history of anemia, hypertension, hyperlipidemia, type two diabetes mellitus, asthma, CHARLES, cellulites, anxiety, chronic pain, gastritis, hypogammaglobulinemia here with 1. Acute GI hemorrhage - likely upper GI bleed, differential diagnosis to include gastritis ,pud due to NSAIDs CT abdomen and pelvis showed diverticula transverse and descending colon without diverticulitis, no evidence for active GI bleed no acute intra-abdominal process noted, irregular liver contour possibly hepatocellular disease. - continue NPO, IV PPI - case discussed with Dr. Delarosa patient will undergo EGD this afternoon recommend complete abstinence from NSAIDs 2. Symptomatic anemia - hematocrit dropped further will transfuse 2 units of packed RBC ,monitor post transfusion hematocrit. 3. Hypertension - resume Losartan and Metoprolol 4. Hypothyroidism - resume Levothyroxine 5. Chronic pain syndrome - continue IV Dilaudid as needed for pain 6. Hyperlipidemia - resume Atorvastatin in my clinical judgment patient need continued inpatient hospitalization for upper endoscopy and for blood transfusion need close CBC monitoring. Quality Stroke Does the patient have a stroke diagnosis?: No VTE Prior VTE?: No VTE Risk Level:: Medical - moderate - high VTE Device Contraindication: N/A - Device Ordered VTE Drug Contraindication: Treatment Not Indicated
--- NOTE | 2023-09-27 15:10 | MHC.SHP ---
Pre-Procedural Eval Section A Date of Service: 09/27/23 The patient is an INPATIENT: Yes The History & Physical has been completed within 30 days and I have reviewed it.: Yes Section B Chief Complaint: GI Hemorrhage; Symptomatic Anemia Allergies: Allergies Allergy/AdvReac Type Severity Reaction Status Date / Time cephalexin Allergy Severe Difficulty Verified 09/26/23 11:46 Breathing latex [LATEX] Allergy Severe Difficulty Verified 09/26/23 11:46 Breathing levofloxacin [From LEVAQUIN] Allergy Severe SHORTNESS Verified 09/26/23 11:46 OF BREATH, RASH, rash morphine [MORPHINE] Allergy Severe RASH, Verified 09/26/23 11:46 asthma exacerbation, rash baclofen [BACLOFEN] Allergy Intermediate Rash Verified 09/26/23 11:46 celecoxib [Celebrex] Allergy Intermediate itching, Verified 09/26/23 11:46 rash, flushing prednisone [PREDNISONE] Allergy Intermediate RASH, Verified 09/26/23 11:46 asthma exacerbation, rash codeine Allergy Unknown Rash Verified 09/26/23 11:46 gluten [GLUTEN] Allergy Unknown UNKNOWN Verified 09/26/23 11:46 oxycodone Allergy Unknown rash Verified 09/26/23 11:46 ranitidine Allergy Unknown unknown Verified 09/26/23 11:46 roflumilast [Daliresp] Allergy Unknown rash Verified 09/26/23 11:46 tramadol [TRAMADOL] Allergy Unknown RASH,SHORTNESS Verified 09/26/23 11:46 OF BREATH AND HEADACHE, asthma exacerbation, rash celery Allergy Rash Verified 09/26/23 11:46 cyclobenzaprine Allergy Rash and Verified 09/26/23 11:46 [From Flexeril] asthma exacerbation environmental allergies Allergy Cleaning Verified 09/26/23 11:46 products cause asthma attack pineapple Allergy Rash Verified 09/26/23 11:46 strawberry Allergy Rash Verified 09/26/23 11:46 sulfamethoxazole AdvReac Intermediate vertigo Verified 09/26/23 11:46 [From Bactrim] trimethoprim [From Bactrim] AdvReac Intermediate vertigo Verified 09/26/23 11:46 diazepam [From Valium] AdvReac Cough Verified 09/26/23 11:46 Plan Diagnosis/Plan: Unchanged I have reviewed the history and physical and performed a pertinent physical examination on my patient. No changes have occurred unless specified. EGD Time Spent With Patient Time: Total time managing care of this patient today ____ minutes.
[2023-09-27 15:18] LABS: Glucose, Whole Blood 142 mg/dL (60-115)
--- NOTE | 2023-09-27 16:05 | W.PM.OPN ---
Operative Note Operative Note Date of Service: 09/27/23 Narrative: Procedure Description: EGD Indication: anemia, and melena Anesthesia: MAC FLEXIBLE TRANSORAL UPPER GASTROINTESTINAL ENDOSCOPY UPPER ENDOSCOPY Consent: Indications for the procedure and potential complications of bleeding, perforation, reaction to medications and missed diagnosis were discussed with the patient and informed consent was obtained. Instrument: Olympus GIF H 190 J mid size upper endoscope Monitoring: Vital signs and clinical assessment, continuous EKG monitoring, Pulse oximetry, Carbon Dioxide monitoring and blood pressure monitoring were done throughout the procedure. Procedure: The patient was placed in the left lateral decubitis position and pre-procedure medications were administered and a bite block was placed. The endoscope was inserted into the mouth and advanced under direct vision to the third part of duodenum. A careful inspection was made as the upper endoscope was withdrawn including a retroflexed examination of the proximal stomach; Findings and interventions are described below. Findings: Larynx:normal Esophagus: GE junction at 38 cm, diaphragm hiatus at 38 cm, 3 columns of large varices with red medellin noted, x 5 bands deployed with good results and then sprayed with hemospray Stomach: Patchy gastric erythema with numerous polyps in the body and antrum, some of these were inflammed and had erosions on the surface, a few of these were removed with cold snare after injecting with few ml of epinephrine. One polypectomy site was clipped and then hemospray applied. Random biopsies were obtained to r/o h pylori. Grade 2 flap valve on retroflexed examination of the cardia. No gastric varices seen. mosaic pattern consistent with portal hypertensive gastropathy. Duodenum: Normal bulb and descending duodenum, Intervention: Biopsies as noted above, snare polypectomy, variceal banding, hemospray application Impression/Findings: gastric polyps portal hypertensive gastropathy either from cirrhosis (BENEDICT most likely) or nodular regenerative hyperplasia (also possible as INR is totally normal) esophageal varices PLAN: octreotide drip for 72 hrs if BP stable and no further bleeding then d/c with carvedilol and statin if not taking US liver and doppler carafate liquid 1 g bid PPI high dose for 3 months check Hep B and C serologies allow clears tonight and advance tomorrow if labs stable repeat EGD in 2-4 weeks
[2023-09-27] MEDS: HYDROmorphone HCl 0.5 MG/0.5 ML SYRINGE 0.25 MG IVPUSH ×4 (16:20→16:45)
[2023-09-27 17:48] LABS: Glucose, Whole Blood 165 mg/dL (60-115)
[2023-09-27] MEDS: Octreotide Acetate 500 MCG in 0.9 % Sodium Chloride 500 ML 50.1 MCG IVCONT (17:58)
--- NOTE | 2023-09-27 18:07 | PC.NURSE ---
pt left for endoscopy with 2nd unit of RBCs running. Unit finished while pt was undergoing procedure, however the end time of the unit was not noted. in TAR the time is approximately when pt returned to the floor.
[2023-09-27 18:48] LABS: Hematocrit 30.2 % (37.0-47.0); Hemoglobin 9.8 g/dl (12.0-16.0); Mean Corpuscular HGB Conc 32.5 g/dl (31.0-35.0); Mean Corpuscular Hemoglobin 26.8 pg (27.0-33.0); Mean Corpuscular Volume 82.7 fL (80.0-98.0); Mean Platelet Volume 10.2 fL (9.4-12.3); Platelet Count 146 X10*3/uL (160-400); Red Blood Count 3.65 X10*6/uL (4.20-5.50); Red Cell Distribution Width 14.1 % (11.0-16.0); White Blood Count 11.9 X10*3/uL (4.8-10.8)
[2023-09-27] MEDS: iohexoL 350 MG/ML 100 ML INFUS..BTL 85 ML IV (20:44)
[2023-09-27] MEDS: HYDROmorphone HCl 1 MG/ML SYRINGE IVPUSH (22:32)
[2023-09-27 22:57] LABS: Glucose, Whole Blood 182 mg/dL (60-115)
[2023-09-27] MEDS: Sucralfate Oral Suspension 1 GM/10 ML ORAL.SUSP PO (23:15)
--- NOTE | 2023-09-28 00:08 | PC.NURSE ---
[id number] pt crying and complaining of 10/10 abd pain and nausea.she states that the dilaudid and zofran that she got on previous shift did not work. notified and ordered dilaudid 1mg IV x1 and zofran 4mg IV x1.pt medicated at 2232.at present pt resting quietly in bed.
[2023-09-28 04:00] VITALS: BP 154/83; PULSE 83; RESP 16; TEMP 36; O2SAT 94
[2023-09-28] MEDS: Octreotide Acetate 500 MCG in 0.9 % Sodium Chloride 500 ML 50.1 MCG IVCONT ×2 (04:43→14:06)
[2023-09-28] MEDS: Pantoprazole Sodium 40 MG/10 ML VIAL IVPUSH ×2 (05:35→16:36)
[2023-09-28] MEDS: HYDROmorphone HCl 1 MG/ML SYRINGE 0.5 MG IVPUSH ×4 (06:09→22:22)
[2023-09-28 07:48] VITALS: BP 160/77; PULSE 85; RESP 18; TEMP 36.7; O2SAT 92
[2023-09-28] MEDS: Loratadine 10 MG TABLET PO (08:25)
[2023-09-28] MEDS: Sucralfate Oral Suspension 1 GM/10 ML ORAL.SUSP PO ×3 (08:25→21:00)
[2023-09-28] MEDS: Metoprolol Succinate ER 50 MG TAB.ER.24H PO (08:25)
[2023-09-28] MEDS: pyRIDostigmine bromide 60 MG TABLET PO ×3 (08:26→21:01)
[2023-09-28] MEDS: 0.9 % Sodium Chloride Flush 3 ML SYRINGE IVFLUSH (08:26)
[2023-09-28 08:29] LABS: Hematocrit 28.6 % (37.0-47.0); Hemoglobin 9.6 g/dl (12.0-16.0); Mean Corpuscular HGB Conc 33.6 g/dl (31.0-35.0); Mean Corpuscular Hemoglobin 27.4 pg (27.0-33.0); Mean Corpuscular Volume 81.7 fL (80.0-98.0); Mean Platelet Volume 9.9 fL (9.4-12.3); Platelet Count 137 X10*3/uL (160-400); Red Cell Distribution Width 14.2 % (11.0-16.0); White Blood Count 8.1 X10*3/uL (4.8-10.8)
[2023-09-28] MEDS: ondansetron HCL 4 MG/2 ML VIAL IVPUSH ×2 (08:32→22:22)
[2023-09-28 09:05] LABS: HBS Num1 46.15 mIU/mL (0-7.99); HBc Num1 0.12 S/CO (0.00-0.79); HBsAGNum1 0.22 S/CO (0.00-0.99); Hepatitis B Core Antibody Nonreactive (Nonreactive); Hepatitis B Surface Antigen Negative (Negative); ~HepC Num1 0.15 S/CO (0.00-0.79); ~Hepatitis B Surface Antibody REACTIVE (Nonreactive); ~Hepatitis C Antibody Nonreactive (Nonreactive)
--- NOTE | 2023-09-28 09:31 | MHC.CM.PN ---
IMM DELIVERED. PATIENT FROM HOME WITH GRANDCHILDREN AND THEIR MOTHER ROBERT. AMBULATES INDEPENDENTLY MOST TIMES, USES [employer] FOR SUPPORT. HAS A SHOWER CHAIR AND TOILET RISER. NO SERVICES CHARLES - NOT ON CPAP PCP: SYL ESTRADA MD HCP: MARTHA MOONEY [phone] DCP: GOAL IS HOME SELF CARE, BROTHER OR ROBERT WILL TRANSPORT. CM WILL CONTINUE TO FOLLOW.
[2023-09-28] MEDS: Magnesium Hydrox/Alum Hydrox 30 ML ORAL.SUSP PO ×3 (10:17→21:00)
[2023-09-28 11:39] VITALS: BP 161/79; PULSE 68; RESP 18; TEMP 36.8; O2SAT 95
--- NOTE | 2023-09-28 14:51 | HO.POSTANES ---
Post Anesthesia Evaluation Post Anesthesia Evaluation Date of Service: 09/28/23 Vital Signs: Vital Signs Temp Pulse Resp BP Pulse Ox O2 Del Method 09/28/23 11:39 98.3 F 68 18 161/79 H 95 Room Air 09/28/23 07:48 98.1 F 85 18 160/77 H 92 Room Air 09/28/23 04:00 96.8 F 83 16 154/83 H 94 Room Air Anesthesia: Monitored Mental Status: Awake Pain Control: Satisfactory Nausea/Vomiting: None Hydration: Adequate Anesthesia-Related Issues: No Anes. Related Issues
[2023-09-28 16:00] VITALS: BP 130/66; PULSE 63; RESP 16; TEMP 36.7; O2SAT 96
--- NOTE | 2023-09-28 16:06 | P.PNIM_ITS ---
Subjective Subjective Date of Service: 09/28/23 Interval History: Complaining of right lower quadrant abdominal pain that is constant, get worse after receiving IV Protonix, placed on clear liquid diet has only taken Jell-O with no worsening symptoms denies nausea vomiting, no fevers, no chills no recurrent episode of bloody stools. Review of Systems All other system reviewed and negative Physical Exam 2 Vital Signs: Vital Signs: Last Vital Signs Temp 98.3 F 09/28/23 11:39 Pulse 68 09/28/23 11:39 Resp 18 09/28/23 11:39 BP 161/79 H 09/28/23 11:39 Pulse Ox 95 09/28/23 11:39 O2 Del Method Room Air 09/28/23 11:39 O2 Flow Rate 3 09/27/23 17:00 BMI result Body Mass Index 37.2 Const: Other: Constitutional : Awake, alert x3 in no acute distress Neck : no JVD, Supple Cardiovascular : RRR, Respiratory : good bilateral air entry, no crackles, wheezes or rhonchi Gastrointestinal: soft, bowel sounds audible,lower abdominal tenderness with palpation, no rebound, no rigidity extremities no edema Skin : Warm, Dry, no rash Neurological : Alert & oriented x3, No focal deficit , CN 2-12 within normal Psych appropriate affect Objective Data Active Medications Acetaminophen (Acetaminophen 325 Mg Tablet) 650 mg PO Q6H PRN PRN Reason: Pain, Mild (Pain Scale 1-3) Al Hydroxide/Mg Hydroxide (Magnesium Hydrox/Alum Hydrox 30 Ml Oral.Susp) 30 ml PO Q4H PRN PRN Reason: Heartburn/Nausea Last Admin: 09/28/23 14:27 Dose: 30 ml Documented By: GILBERTO Atorvastatin Calcium (Atorvastatin Calcium 40 Mg Tablet) 40 mg PO DAILY@1800 [facility] Last Admin: 09/27/23 18:55 Dose: Not Given Documented By: HENRIETTA Non-Admin Reason: Patient Refused Diphenhydramine HCl (Diphenhydramine Hcl 50 Mg/Ml Vial) 25 mg IVPUSH Q6H PRN PRN Reason: allergic reaction Fentanyl (Fentanyl Citrate/Pf 100 Mcg/2 Ml Vial) 25 mcg IVPUSH Q5M PRN; Protocol PRN Reason: Pain, Moderate(Pain Scale 4-6) Hydromorphone HCl (Hydromorphone Hcl 1 Mg/Ml Syringe) 0.5 mg IVPUSH Q4H PRN; Protocol PRN Reason: Pain, Severe (Pain Scale 7-10) Last Admin: 09/28/23 14:33 Dose: 0.5 mg Documented By: GILBERTO Octreotide Acetate 500 mcg/ (Sodium Chloride) 501 mls @ 50.1 mls/hr IVCONT .Q10H [facility] Last Admin: 09/28/23 14:06 Dose: 50 mcg/hr, 50.1 mls/hr Documented By: GILBERTO Levothyroxine Sodium (Levothyroxine Sodium 112 Mcg Tablet) 224 mcg PO BEDTIME [facility] Last Admin: 09/28/23 00:05 Dose: Not Given Documented By: APRIL Non-Admin Reason: Patient Refused Loratadine (Loratadine 10 Mg Tablet) 10 mg PO DAILY [facility] Last Admin: 09/28/23 08:25 Dose: 10 mg Documented By: GILBERTO Losartan Potassium (Losartan Potassium 25 Mg Tablet) 25 mg PO BEDTIME [facility]; Protocol Last Admin: 09/28/23 00:05 Dose: Not Given Documented By: APRIL Non-Admin Reason: Patient Refused Melatonin (Melatonin 3 Mg Tablet) 6 mg PO BEDTIME PRN PRN Reason: Insomnia Metoprolol Succinate (Metoprolol Succinate Er 50 Mg Tab.Er.24h) 50 mg PO DAILY [facility]; Protocol Last Admin: 09/28/23 08:25 Dose: 50 mg Documented By: GILBERTO Montelukast Sodium (Montelukast Sodium 10 Mg Tablet) 10 mg PO BEDTIME [facility] Last Admin: 09/28/23 00:05 Dose: Not Given Documented By: APRIL Non-Admin Reason: Patient Refused Omeprazole (Omeprazole 40 Mg Capsule.) 40 mg PO DAILY@1630 [facility] Last Admin: 09/26/23 22:43 Dose: 40 mg Documented By: DARRYN Ondansetron HCl (Ondansetron Hcl 4 Mg/2 Ml Vial) 4 mg IVPUSH Q8H PRN PRN Reason: Nausea and Vomiting Last Admin: 09/28/23 08:32 Dose: 4 mg Documented By: GILBERTO Ondansetron HCl (Ondansetron Hcl 4 Mg/2 Ml Vial) 4 mg IVPUSH ONCE PRN PRN Reason: Nausea and Vomiting Pantoprazole Sodium (Pantoprazole Sodium 40 Mg/10 Ml Vial) 40 mg IVPUSH BID@4330,5750 [facility] Last Admin: 09/28/23 05:35 Dose: 40 mg Documented By: APRIL Pyridostigmine [place] (Pyridostigmine [place] 60 Mg Tablet) 60 mg PO TID [facility] Last Admin: 09/28/23 14:27 Dose: 60 mg Documented By: GILBERTO Sodium Chloride (0.9 % Sodium Chloride Flush 3 Ml Syringe) 3 ml IVFLUSH QSHIFT [facility] Last Admin: 09/28/23 14:38 Dose: Not Given Documented By: GILBERTO Non-Admin Reason: IV Running Sucralfate (Sucralfate Oral Suspension 1 Gm/10 Ml Oral.Susp) 1 gm PO TID [facility] Last Admin: 09/28/23 14:27 Dose: 1 gm Documented By: GILBERTO Tizanidine HCl (Tizanidine Hcl 4 Mg Tablet) 4 mg PO BEDTIME [facility] Last Admin: 09/28/23 00:06 Dose: Not Given Documented By: APRIL Non-Admin Reason: Patient Refused Vitamin D (Cholecalciferol (Vitamin D3) 25 Mcg Tablet) 100 mcg PO BEDTIME [facility] Last Admin: 09/28/23 00:05 Dose: Not Given Documented By: APRIL Non-Admin Reason: Patient Refused Labs 09/28/23 08:12 09/27/23 05:17 Labs: Laboratory Results - last 24 hr 09/26/23 09/27/23 09/27/23 19:27 17:45 18:37 MCV 82.7 MCH 26.8 L MCHC 32.5 RDW 14.1 Plt Count 146 L MPV 10.2 Absolute Nucleated RBC 0.000 Nucleated RBC % (auto) 0.0 POC Glucose 165 H Hep Bs Antigen Hep Bs Antibody Hep B Core Total Ab Hepatitis C Ab (EIA) Crossmatch See Detail 09/27/23 09/28/23 22:53 08:12 MCV 81.7 MCH 27.4 MCHC 33.6 RDW 14.2 Plt Count 137 L MPV 9.9 Absolute Nucleated RBC 0.000 Nucleated RBC % (auto) 0.0 POC Glucose 182 H Hep Bs Antigen Negative Hep Bs Antibody REACTIVE Hep B Core Total Ab Nonreactive Hepatitis C Ab (EIA) Nonreactive Crossmatch Assessment and Plan (1) Acute anemia: Status: Acute (2) Acute GI bleeding: Status: Acute Plan 52 year old obese white female with history of anemia, hypertension, hyperlipidemia, type two diabetes mellitus, asthma, CHARLES, cellulites, anxiety, chronic pain, gastritis, hypogammaglobulinemia here with 1. Acute GI hemorrhage - no recurrent episodes of black or melanotic stools CT abdomen and pelvis showed diverticula transverse and descending colon without diverticulitis, no evidence for active GI bleed no acute intra-abdominal process noted, irregular liver contour possibly hepatocellular disease. - underwent upper endoscopy that showed gastric polyp, snare polypectomy done, noted to have large varices with red medellin required variceal banding x 5 and hemospary application Case discussed with GI they recommend octreotide drip times 72 hours, recommend Coreg and statin, Postprocedure CT abdomen due to abdominal pain obtained showed normal hepatic and portal veins, a no acute abnormality Placed on Carafate 1 g b.i.d., will DC IV Protonix and placed on Prilosec 40 mg b.i.d., hepatitis-B and C serologies obtained Portal hypertensive gastropathy question due to BENEDICT, normal LFTs and INR recommend complete abstinence from NSAIDs Will gradually advance diet as tolerated 2. Symptomatic anemia - received 2 units of packed RBC , hematocrit improved will follow 3. Hypertension - resume Losartan and Metoprolol 4. Hypothyroidism - continue Levothyroxine 5. Chronic pain syndrome - continue IV Dilaudid as needed for pain and transition to by mouth Dilaudid home dose 6. Hyperlipidemia - resume Atorvastatin in my clinical judgment patient need continued inpatient hospitalization for variceal bleed status post banding need close clinical follow-up and monitoring of CBC. Quality Stroke Does the patient have a stroke diagnosis?: No VTE Prior VTE?: No VTE Risk Level:: Medical - moderate - high VTE Device Contraindication: N/A - Device Ordered VTE Drug Contraindication: Treatment Not Indicated
[2023-09-28 16:44] LABS: Glucose, Whole Blood 181 mg/dL (60-115)
--- NOTE | 2023-09-28 17:58 | P.PNGI_ITS ---
Subjective Subjective Date of Service: 09/28/23 Interval History: No melena she had abdominal pain after EGD but CT without perf, carafate helped her as did magic mouthwash ok with clears no fevers etc Critical Care Time (minutes): 0 Physical Exam 2 Vital Signs: Vital Signs: Last Vital Signs Temp 98.0 F 09/28/23 16:00 Pulse 63 09/28/23 16:00 Resp 16 09/28/23 16:00 BP 130/66 09/28/23 16:00 Pulse Ox 96 09/28/23 16:00 O2 Del Method Room Air 09/28/23 16:00 O2 Flow Rate 3 09/27/23 17:00 BMI result Body Mass Index 37.2 EXAM: GENERAL: The patient is well developed and nontoxic. VITAL SIGNS:see workflow HEENT: Nonicteric sclerae, PERRLA, EOMI. Oropharynx clear. Moist mucous membranes. Conjunctivae appear pale. No thyroid mass. CHEST: Chest wall is nontender. HEART: Regular rate and rhythm without murmurs. LUNGS: Clear to auscultation bilaterally. ABDOMEN: Soft, positive bowel sounds, nontender, no organomegaly.no flank tenderness SKIN: No rash, no excessive bruising, petechiae, or purpura. NEUROLOGIC: Cranial nerves II-XII intact without motor/sensory deficit. Objective Data Labs 09/28/23 08:12 09/27/23 05:17 Labs: Laboratory Results - last 24 hr 09/26/23 09/27/23 09/27/23 19:27 18:37 22:53 WBC 11.9 H RBC 3.65 L D Hgb 9.8 L D Hct 30.2 L D MCV 82.7 MCH 26.8 L MCHC 32.5 RDW 14.1 Plt Count 146 L MPV 10.2 Absolute Nucleated RBC 0.000 Nucleated RBC % (auto) 0.0 POC Glucose 182 H Hep Bs Antigen Hep Bs Antibody Hep B Core Total Ab Hepatitis C Ab (EIA) Crossmatch See Detail 09/28/23 09/28/23 08:12 16:40 WBC 8.1 RBC 3.50 L Hgb 9.6 L Hct 28.6 L MCV 81.7 MCH 27.4 MCHC 33.6 RDW 14.2 Plt Count 137 L MPV 9.9 Absolute Nucleated RBC 0.000 Nucleated RBC % (auto) 0.0 POC Glucose 181 H Hep Bs Antigen Negative Hep Bs Antibody REACTIVE Hep B Core Total Ab Nonreactive Hepatitis C Ab (EIA) Nonreactive Crossmatch Procedures Date of Service Date of Service: 09/28/23 Progress Note: A&P Assessment and plan (1) Acute anemia: Status: Acute Plan 1/ Acute on chronic anemia from esophageal varices and eroded polyps, probably also causing her abdominal pain, bx pending. SHe may have underlying cirrhosis or NRH. NRH might be more likely as she has normal liver synthetic function PLAN: 1/ can advance diet as tolerated 2/ cont octreotide for total 72 hrs 3/ cont with carafate and PPI 4/ rept EGD in 2-4 weeks 5/ change metoprolol to carvedilol and cont with statin to reduce portal pressures 6/ check hep b,c serologies Time Spent With Patient Time: Total time managing care of this patient today ____ minutes. Quality Stroke Does the patient have a stroke diagnosis?: No VTE Prior VTE?: No VTE Risk Level:: Medical - moderate - high VTE Device Contraindication: N/A - Device Ordered VTE Drug Contraindication: Treatment Not Indicated
[2023-09-28] MEDS: Atorvastatin Calcium 40 MG TABLET PO (18:00)
[2023-09-28 19:29] VITALS: BP 146/77; PULSE 69; RESP 18; TEMP 36.6; O2SAT 93
[2023-09-28] MEDS: Losartan Potassium 25 MG TABLET PO (21:00)
[2023-09-28] MEDS: TiZANidine HCL 4 MG TABLET PO (21:01)
[2023-09-28] MEDS: Cholecalciferol (Vitamin D3) 25 MCG TABLET 100 MCG PO (21:01)
[2023-09-28] MEDS: Levothyroxine Sodium 112 MCG TABLET 224 MCG PO (21:01)
[2023-09-28] MEDS: Montelukast Sodium 10 MG TABLET PO (21:01)
[2023-09-28] MEDS: Acetaminophen 325 MG TABLET 650 MG PO (21:07)
[2023-09-28 23:40] VITALS: BP 104/58; PULSE 60; RESP 18; TEMP 36.4; O2SAT 97
[2023-09-29] MEDS: Octreotide Acetate 500 MCG in 0.9 % Sodium Chloride 500 ML 50.1 MCG IVCONT ×3 (00:17→20:46)
[2023-09-29 02:59] VITALS: BP 130/73; PULSE 56; RESP 18; TEMP 36.1; O2SAT 96
[2023-09-29] MEDS: Omeprazole/Na Bicarb Oral Susp 20 MG/10 ML UD Cup 40 MG PO ×2 (05:38→17:09)
[2023-09-29] MEDS: HYDROmorphone HCl 1 MG/ML SYRINGE 0.5 MG IVPUSH ×3 (06:22→21:05)
[2023-09-29] MEDS: ondansetron HCL 4 MG/2 ML VIAL IVPUSH ×2 (06:22→21:04)
[2023-09-29 06:43] LABS: Hematocrit 28.2 % (37.0-47.0); Hemoglobin 9.2 g/dl (12.0-16.0); Mean Corpuscular HGB Conc 32.6 g/dl (31.0-35.0); Mean Corpuscular Hemoglobin 27.6 pg (27.0-33.0); Mean Corpuscular Volume 84.7 fL (80.0-98.0); Mean Platelet Volume 10.6 fL (9.4-12.3); Platelet Count 135 X10*3/uL (160-400); Red Blood Count 3.33 X10*6/uL (4.20-5.50)
[2023-09-29 06:49] LABS: Anion Gap 12 (12-20); Blood Urea Nitrogen 12 mg/dL (9-16); Calcium 8.5 mg/dL (8.4-10.2); Carbon Dioxide 24 mmol/L (22-29); Chloride 105 mmol/L (96-108); Creatinine Clr Calc Pharmacy 112.2; Estimated Glomerular Filt Rate > 60; Glucose Random 182 mg/dL (60-115); Potassium 3.9 mmol/L (3.3-5.1); Sodium 137 mmol/L (135-145)
[2023-09-29 08:00] VITALS: BP 146/74; PULSE 52; RESP 16; O2SAT 95
[2023-09-29] MEDS: Acetaminophen 325 MG TABLET 650 MG PO (08:16)
[2023-09-29] MEDS: Loratadine 10 MG TABLET PO (08:18)
[2023-09-29] MEDS: pyRIDostigmine bromide 60 MG TABLET PO ×3 (08:18→20:46)
[2023-09-29] MEDS: Metoprolol Succinate ER 50 MG TAB.ER.24H PO (08:18)
[2023-09-29] MEDS: Sucralfate Oral Suspension 1 GM/10 ML ORAL.SUSP PO ×4 (08:19→20:44)
[2023-09-29 08:35] LABS: Glucose, Whole Blood 169 mg/dL (60-115)
--- NOTE | 2023-09-29 11:00 | MHC.CM.PN ---
EMR reviewed. Per MD rounds not medically cleared for dc at this time. Likely tomorrow after completing 72 hours of octreotide. Plan remains home self care. CM will continue to follow.
[2023-09-29 11:08] VITALS: BP 147/74; PULSE 58; RESP 18; TEMP 36.2; O2SAT 93
--- NOTE | 2023-09-29 11:31 | P.PNIM_ITS ---
Subjective Subjective Date of Service: 09/29/23 Interval History: complaining of mid chest pain and epigastric pain with radiation to mid back denies nausea vomiting, lower abdominal discomfort has resolved no diarrhea no fevers, no chills, no lightheadedness, no dizziness, no other acute issues. Review of Systems all other system reviewed and negative. Physical Exam 2 Vital Signs: Vital Signs: Last Vital Signs Temp 97.1 F 09/29/23 11:08 Pulse 58 09/29/23 11:08 Resp 18 09/29/23 11:08 BP 147/74 H 09/29/23 11:08 Pulse Ox 93 09/29/23 11:08 O2 Del Method Room Air 09/29/23 11:08 O2 Flow Rate 3 09/27/23 17:00 BMI result Body Mass Index 37.2 Const: Other: Constitutional : Awake, alert x3 in no acute distress Neck : no JVD, Supple Cardiovascular : RRR, Respiratory : good bilateral air entry, no crackles, wheezes or rhonchi Gastrointestinal: soft, mild epigastric tenderness, bowel sounds audible, no rebound, no rigidity extremities no edema Skin : Warm, Dry, no rash Neurological : Alert & oriented x3, No focal deficit Psych appropriate affect Objective Data Active Medications Acetaminophen (Acetaminophen 325 Mg Tablet) 650 mg PO Q6H PRN PRN Reason: Pain, Mild (Pain Scale 1-3) Last Admin: 09/29/23 08:16 Dose: 650 mg Documented By: GILBERTO Al Hydroxide/Mg Hydroxide (Magnesium Hydrox/Alum Hydrox 30 Ml Oral.Susp) 30 ml PO Q4H PRN PRN Reason: Heartburn/Nausea Last Admin: 09/28/23 21:00 Dose: 30 ml Documented By: TC Atorvastatin Calcium (Atorvastatin Calcium 40 Mg Tablet) 40 mg PO DAILY@1800 FLORECITA Last Admin: 09/28/23 18:00 Dose: 40 mg Documented By: GILBERTO Diphenhydramine HCl (Diphenhydramine Hcl 50 Mg/Ml Vial) 25 mg IVPUSH Q6H PRN PRN Reason: allergic reaction Fentanyl (Fentanyl Citrate/Pf 100 Mcg/2 Ml Vial) 25 mcg IVPUSH Q5M PRN; Protocol PRN Reason: Pain, Moderate(Pain Scale 4-6) Hydromorphone HCl (Hydromorphone Hcl 1 Mg/Ml Syringe) 0.5 mg IVPUSH Q4H PRN; Protocol PRN Reason: Pain, Severe (Pain Scale 7-10) Last Admin: 09/29/23 06:22 Dose: 0.5 mg Documented By: TC Octreotide Acetate 500 mcg/ (Sodium Chloride) 501 mls @ 50.1 mls/hr IVCONT .Q10H [facility] Last Admin: 09/29/23 10:29 Dose: 50 mcg/hr, 50.1 mls/hr Documented By: GILBERTO Levothyroxine Sodium (Levothyroxine Sodium 112 Mcg Tablet) 224 mcg PO BEDTIME FLORECITA Last Admin: 09/28/23 21:01 Dose: 224 mcg Documented By: TC Loratadine (Loratadine 10 Mg Tablet) 10 mg PO DAILY [facility] Last Admin: 09/29/23 08:18 Dose: 10 mg Documented By: GILBERTO Losartan Potassium (Losartan Potassium 25 Mg Tablet) 25 mg PO BEDTIME [facility]; Protocol Last Admin: 09/28/23 21:00 Dose: 25 mg Documented By: TC Comments: BP 146/77 H 69 Melatonin (Melatonin 3 Mg Tablet) 6 mg PO BEDTIME PRN PRN Reason: Insomnia Metoprolol Succinate (Metoprolol Succinate Er 50 Mg Tab.Er.24h) 50 mg PO DAILY [facility]; Protocol Last Admin: 09/29/23 08:18 Dose: 50 mg Documented By: GILBERTO Montelukast Sodium (Montelukast Sodium 10 Mg Tablet) 10 mg PO BEDTIME [facility] Last Admin: 09/28/23 21:01 Dose: 10 mg Documented By: TC Omeprazole (Omeprazole/Na Bicarb Oral Susp 20 Mg/10 Ml Ud Cup) 40 mg PO BID@0630,1630 [facility] Last Admin: 09/29/23 05:38 Dose: 40 mg Documented By: TC Ondansetron HCl (Ondansetron Hcl 4 Mg/2 Ml Vial) 4 mg IVPUSH Q8H PRN PRN Reason: Nausea and Vomiting Last Admin: 09/29/23 06:22 Dose: 4 mg Documented By: TC Ondansetron HCl (Ondansetron Hcl 4 Mg/2 Ml Vial) 4 mg IVPUSH ONCE PRN PRN Reason: Nausea and Vomiting Pyridostigmine Lincoln (Pyridostigmine Lincoln 60 Mg Tablet) 60 mg PO TID [facility] Last Admin: 09/29/23 08:18 Dose: 60 mg Documented By: GILBERTO Sodium Chloride (0.9 % Sodium Chloride Flush 3 Ml Syringe) 3 ml IVFLUSH QSHIFT [facility] Last Admin: 09/29/23 08:15 Dose: Not Given Documented By: GILBERTO Non-Admin Reason: IV Running Sucralfate (Sucralfate Oral Suspension 1 Gm/10 Ml Oral.Susp) 1 gm PO TID [facility] Last Admin: 09/29/23 08:19 Dose: 1 gm Documented By: GILBERTO Tizanidine HCl (Tizanidine Hcl 4 Mg Tablet) 4 mg PO BEDTIME [facility] Last Admin: 09/28/23 21:01 Dose: 4 mg Documented By: TC Vitamin D (Cholecalciferol (Vitamin D3) 25 Mcg Tablet) 100 mcg PO BEDTIME [facility] Last Admin: 09/28/23 21:01 Dose: 100 mcg Documented By: TC Labs 09/29/23 06:01 09/29/23 06:01 Labs: Laboratory Results - last 24 hr 09/28/23 09/29/23 09/29/23 16:40 06:01 08:29 MCV 84.7 MCH 27.6 MCHC 32.6 RDW 14.0 Plt Count 135 L MPV 10.6 Absolute Nucleated RBC 0.000 Nucleated RBC % (auto) 0.0 Anion Gap 12 Estim Creat Clear Calc 112.2 Estimated GFR > 60 POC Glucose 181 H 169 H Random Glucose 182 H Calcium 8.5 Assessment and Plan (1) Acute anemia: Status: Acute (2) Acute GI bleeding: Status: Acute Plan 52 year old obese white female with history of anemia, hypertension, hyperlipidemia, type two diabetes mellitus, asthma, CHARLES, cellulites, anxiety, chronic pain, gastritis, hypogammaglobulinemia here with 1. Acute GI hemorrhage no recurrent episodes of black or melanotic stools CT abdomen and pelvis showed diverticula transverse and descending colon without diverticulitis, no evidence for active GI bleed no acute intra-abdominal process noted, irregular liver contour possibly hepatocellular disease. underwent upper endoscopy that showed gastric polyp, snare polypectomy done, noted to have large varices with red medellin required variceal banding x 5 and hemospary application complaining of mid chest/ epigastric discomfort with food with radiation to back, lower abdominal discomfort has resolved Case discussed with GI they recommend octreotide drip times 72 hours, recommend Coreg and statin, Postprocedure CT abdomen due to abdominal pain obtained showed normal hepatic and portal veins, no acute abnormality will increase Carafate to 1 g q.i.d., continue Prilosec 40 mg b.i.d., hepatitis-B and C serologies nonreactive Portal hypertensive gastropathy question due to BENEDICT, normal LFTs and INR recommend complete abstinence from NSAIDs will advance diet follow clinical course if remains stable possible discharge at a.m. 2. Symptomatic anemia - received 2 units of packed RBC , hematocrit improved and remains stable. 3. Hypertension - Stable BP continue Losartan and Metoprolol. 4. Hypothyroidism - continue Levothyroxine 5. Chronic pain syndrome - continue IV Dilaudid as needed for pain and transition to by mouth Dilaudid home dose 6. Hyperlipidemia - Atorvastatin 7. Diabetes mellitus type 2 on metformin 1000 mg b.i.d. and insulin before meals 4 times a day at baseline, will place on insulin sliding scale since patient started on diabetic diet, continue to hold home medications. in my clinical judgment patient need continued inpatient hospitalization for variceal bleed status post banding need close clinical follow-up and monitoring of CBC on iv octreotide drip for 72 hrs. Quality Stroke Does the patient have a stroke diagnosis?: No VTE Prior VTE?: No VTE Risk Level:: Medical - moderate - high VTE Device Contraindication: N/A - Device Ordered VTE Drug Contraindication: Treatment Not Indicated
[2023-09-29 11:34] LABS: Glucose, Whole Blood 276 mg/dL (60-115)
[2023-09-29 15:09] VITALS: BP 134/72; PULSE 62; RESP 18; TEMP 36.4; O2SAT 94
[2023-09-29 16:08] LABS: Glucose, Whole Blood 191 mg/dL (60-115)
[2023-09-29] MEDS: Atorvastatin Calcium 40 MG TABLET PO (17:11)
[2023-09-29] MEDS: Insulin Lispro 100 UNIT/ML 3 ML VIAL SUBCUT ×2 (17:11→20:44)
[2023-09-29 19:20] VITALS: BP 148/69; PULSE 68; RESP 18; TEMP 36.4; O2SAT 95
[2023-09-29 19:50] LABS: Glucose, Whole Blood 187 mg/dL (60-115)
[2023-09-29] MEDS: TiZANidine HCL 4 MG TABLET PO (20:45)
[2023-09-29] MEDS: Cholecalciferol (Vitamin D3) 25 MCG TABLET 100 MCG PO (20:45)
[2023-09-29] MEDS: Montelukast Sodium 10 MG TABLET PO (20:45)
[2023-09-29] MEDS: carvediloL 3.125 MG TABLET PO (20:45)
[2023-09-29] MEDS: Losartan Potassium 25 MG TABLET PO (20:46)
[2023-09-29] MEDS: Levothyroxine Sodium 112 MCG TABLET 224 MCG PO (20:46)
[2023-09-29 23:23] VITALS: BP 109/57; PULSE 60; RESP 16; TEMP 36; O2SAT 95
[2023-09-30 03:06] VITALS: BP 136/70; PULSE 57; RESP 16; TEMP 35.9; O2SAT 99
[2023-09-30] MEDS: Omeprazole/Na Bicarb Oral Susp 20 MG/10 ML UD Cup 40 MG PO (05:36)
[2023-09-30] MEDS: Octreotide Acetate 500 MCG in 0.9 % Sodium Chloride 500 ML 50.1 MCG IVCONT (05:37)
[2023-09-30 07:07] VITALS: BP 173/82; PULSE 63; RESP 18; TEMP 36.1; O2SAT 98
[2023-09-30 07:28] LABS: Glucose, Whole Blood 185 mg/dL (60-115)
[2023-09-30] MEDS: HYDROmorphone HCl 2 MG TABLET 1 MG PO (08:14)
[2023-09-30] MEDS: pyRIDostigmine bromide 60 MG TABLET PO (08:14)
[2023-09-30] MEDS: carvediloL 6.25 MG TABLET PO (08:15)
[2023-09-30] MEDS: 0.9 % Sodium Chloride Flush 3 ML SYRINGE IVFLUSH (08:17)
[2023-09-30] MEDS: polyethylene glycoL 3350 17 GM POWD.PACK PO (08:19)
[2023-09-30] MEDS: Sucralfate Oral Suspension 1 GM/10 ML ORAL.SUSP PO ×2 (08:19→12:08)
[2023-09-30] MEDS: Loratadine 10 MG TABLET PO (08:19)
[2023-09-30] MEDS: Insulin Lispro 100 UNIT/ML 3 ML VIAL SUBCUT ×2 (08:20→12:08)
[2023-09-30] MEDS: Acetaminophen 325 MG TABLET 650 MG PO (10:11)
[2023-09-30 11:12] LABS: Glucose, Whole Blood 263 mg/dL (60-115)
[2023-09-30 12:00] VITALS: BP 134/81; PULSE 60; RESP 16; TEMP 36.3; O2SAT 95
[2023-09-30 13:04] LABS: Hematocrit 30.1 % (37.0-47.0)
--- NOTE | 2023-09-30 14:04 | P.DS_ITS ---
DS: Providers Provider Date of Service: 09/30/23 Date of admission: 09/26/23 21:57 Primary care physician: Cassius Strong MD Consults: 09/26/23 21:57 Consult to Gastroenterology Routine Consulting Provider: Nereida Delarosa Reason for consultation: gI hemorrhage Has provider been notified: Yes DS: Diagnosis Discharge Diagnosis (1) Acute anemia: Status: Acute (2) Acute GI bleeding: Status: Acute DS: Summary Hospital Course Hospital Course: history of presenting illness: Date of Service: 09/26/23 Attending physician on admission: Juan Bagley Chief Complaint: Blood per rectum x1 day 52 year old obese white female with history of anemia, hypertension, hyperlipidemia, type two diabetes mellitus, asthma, CHARLES, cellulites, anxiety and chronic pain on oral Hydromorphone, gastritis (on PPI), hypogammaglobulinemia on IVIG who presented to the emergency room complaining of low abdominal pain with associated black stool with some blood clots since 8 AM today. She describes onset of upper abdominal pain last evening and then today morning, the pain became generalized though worse in the low abdomen and was associated with multiple episodes of maroon colored to black loose bowel movements. No bright blood per se. She also describes being nauseated (with no vomiting) and feeling unusually tired and weak. She denies any fevers or chills and also denies any past history of GI hemorrhage. She is however on scheduled Ibuprofen 600 mg twice a day for her arthritis. Work up done in the emergency room was significant for anemia with a hemoglobin of 8 g/dl which is down 2.5 g/dl (from 10.7 on 08/28). Of note, she failed attempts at colonoscopy in the past due to poor prep. Admission was for further work up and management of symptomatic anemia. hospital course: 52 year old obese white female with history of anemia, hypertension, hyperlipidemia, type two diabetes mellitus, asthma, CHARLES, cellulites, anxiety, chronic pain, gastritis, hypogammaglobulinemia presented with lower abdominal pain and black stools and noted to have significant drop in hematocrit patient admitted to [facility] with a diagnosis of acute GI hemorrhage, CT abdomen and pelvis showed diverticula in transverse and descending colon without diverticulitis, no evidence for active GI bleed noted, there was irregular liver contour possibly hepatocellular disease, patient seen by Dr. Gerardo from Gastroenterology and underwent upper endoscopy that showed gastric polyp, snare polypectomy done, noted to have large varices with red medellin required variceal banding x 5 and hemospary application, postprocedure patient had abdominal discomfort to that improved with Protonix and Carafate patient was treated with octreotide drip times 72 hours, patient has been started on Coreg hypertensive portal gastropathy, home dose of metoprolol has been discontinued patient is on statin that will be continued, hepatitis-B and C serologies are no nonreactive, likely she has BENEDICT with normal LFTs and INR she has been strongly recommended to abstain from NSAID, patient had no recurrent GI bleed on day of discharge she had black stools repeat H&H is stable she is tolerating diet therefore being discharged home with outpatient follow-up with Dr. charissa hauser in 2-4 weeks for repeat upper endoscopy. . 2. Symptomatic anemia - received 2 units of packed RBC , hematocrit improved and remains stable. 3. Hypertension - Stable BP continue Losartan and Coreg. 4. Hypothyroidism - continue Levothyroxine 5. Chronic pain syndrome - recommend to resume home dose of Dilaudid, recommend physical therapy and low-calorie diet 6. Diabetes mellitus type 2 on metformin 1000 mg b.i.d. and insulin before meals 4 times a day at baseline, recommend diabetic diet and weight loss. Time Attestation Discharge coordination time: Greater than 30 minutes Quality: Safe Use of Opioids Does Pt have an Active Cancer Diagnosis on the Problem List?: No Quality: Stroke Does the patient have a stroke diagnosis?: No Physical Exam Vital Signs: Vital Signs: Last Vital Signs Temp 97.3 F 09/30/23 12:00 Pulse 60 09/30/23 12:00 Resp 16 09/30/23 12:00 BP 134/81 09/30/23 12:00 Pulse Ox 95 09/30/23 12:00 O2 Del Method Room Air 09/30/23 12:00 O2 Flow Rate 3 09/27/23 17:00 BMI result Body Mass Index 37.2 Const: Other: Constitutional : Awake, alert x3 in no acute distress Neck : no JVD, Supple Cardiovascular : RRR, Respiratory : good bilateral air entry, no crackles, wheezes or rhonchi Gastrointestinal: soft, Nontender, bowel sounds audible, no rebound, no rigidity extremities no edema Skin : Warm, Dry, no rash Neurological : Alert & oriented x3, No focal deficit Psych appropriate affect DS: Data Data Completed and Pending Pending studies at discharge: Pending at discharge 09/27/23 15:44 Surgical [PTH] Routine Labs on day of discharge: Laboratory Results - last 24 hr 09/29/23 09/29/23 09/30/23 15:59 19:46 07:11 Hgb Hct POC Glucose 191 H 187 H 185 H 09/30/23 09/30/23 11:03 12:38 Hgb 10.0 L Hct 30.1 L POC Glucose 263 H Discharge Plan Discharge Anticipated Discharge Date/Time: 09/30/23 14:01 Patient Disposition: Home, Self-Care Discharge Diagnosis: acute symptomatic anemia acute upper GI bleed Referrals: Cassius Strong MD [Primary Care Provider] - 1 Week Discharge Medications: New sucralfate 100 mg/mL Suspension 1 g PO QIDACHS Qty: 1200 0RF carvedilol 6.25 mg Tablet 6.25 mg PO BID Qty: 60 0RF Protocol: Hold for SBP/HR < HOLD for SBP < : 90 HOLD for HR < : 60 Continued (DME) lancets [FreeStyle Lancets] 28 gauge misc See Rx Instructions .MEDSUPPLY Qty: 150 4RF Rx Instructions: 5 times a day (DME) blood pressure monitor Kit See Rx Instructions .Route Qty: 1 0RF Rx Instructions: As directed levalbuterol tartrate [Xopenex HFA] 45 mcg/actuation HFA aerosol inhaler 2 puff inhalation Q6H PRN (Reason: shortness of breath or wheezing) 30 Days Qty: 15 11RF Fiasp FlexTouch U-100 Insulin 100 unit/mL (3 mL) insulin pen See Rx Instructions subcut .COMPLEX 30 Days Qty: 150 5RF Rx Instructions: Inject 5 to 20 units SQ before meals and snacks, FOUR TIMES A DAY (DME) FreeStyle Lite Strips Strip See Rx Instructions .Route Qty: 100 5RF Rx Instructions: As directed- checks 4-5 X/day atorvastatin 40 mg tablet 40 mg PO BEDTIME Qty: 90 1RF montelukast 10 mg tablet 10 mg PO BEDTIME 90 Days Qty: 90 3RF calcium citrate 250 mg calcium tablet 500 mg PO BID 30 Days Qty: 120 5RF (DME) DIABETIC SHOES See Rx Instructions .Route .MEDSUPPLY Qty: 1 0RF Rx Instructions: DIABETIC SHOES - 1 PAIR - use as directed -- Dx: E11.9 -- diabetes mellitus ferrous sulfate [FeroSul] 325 mg (65 mg iron) tablet 325 mg PO DAILY Qty: 90 1RF ondansetron 8 mg tablet,disintegrating 8 mg PO Q8H PRN (Reason: nausea and vomiting) 10 Days Qty: 30 1RF hydromorphone 2 mg tablet 2 mg PO TID PRN (Reason: pain) 7 Days Qty: 21 0RF hydromorphone 2 mg tablet 2 mg PO TID PRN (Reason: pain) 7 Days Qty: 21 0RF pyridostigmine bromide 60 mg tablet 60 mg PO TID losartan 25 mg tablet 25 mg PO BEDTIME tizanidine 2 mg tablet 4 mg PO BEDTIME loratadine 10 mg Tablet 10 mg PO DAILY levothyroxine [Synthroid] 112 mcg tablet 224 mcg PO BEDTIME cholecalciferol (vitamin D3) 50 mcg (2,000 unit) capsule 100 mcg PO BEDTIME hydromorphone 2 mg tablet 2 mg PO BID metformin 500 mg tablet extended release 24 hr 1,000 mg PO BID@0900,1700 amoxicillin-pot clavulanate 875-125 mg tablet 1 tab PO BID PRN (Reason: FLARE UP) Gammagard S-D (IgA < 1 mcg/mL) 5 gram recon soln 40 g IV Q3W Fasenra 30 mg/mL syringe 30 mg subcut Q8W ipratropium bromide 42 mcg (0.06 %) spray,non-aerosol 2 spray intranasal DAILY (DME) pen needle, diabetic [Easy Comfort Pen Sloan] 33 gauge x 5/32 needle See Rx Instructions .Route Qty: 100 5RF Rx Instructions: As directed inmjects 4 X/day clotrimazole 10 mg jacinta 10 mg mucous membrane TID PRN (Reason: THRUSH) (DME) nebulizers Misc See Rx Instructions .Route Rx Instructions: As directed Changed omeprazole 40 mg capsule,delayed release(DR/EC) 40 mg PO BID Qty: 180 0RF Discontinued metoprolol succinate 50 mg tablet extended release 24 hr 50 mg PO DAILY Qty: 90 0RF ibuprofen 600 mg Tablet 600 mg PO BID methylprednisolone [Medrol (Jarrett)] 4 mg tablets,dose pack See Rx Instructions PO DAILY 12 Days Qty: 28 0RF Rx Instructions: orally daily; take 2 tabs daily twice a day x 4, then 1 tab twice a day x 4 days, then 1 tab daily x 4 days if need for flare ups Discharge Orders: Discharge Order (Routine); Ordered 09/30/23 Ordered By: Ryan Kelsey Diet: Diabetic diet Activity on Discharge: As tolerated Stand Alone Forms: Patient Portal Discharge page Care Plan Goals: return to [facility] with recurrent GI bleed Health Concerns: diabetes /chronic pain Plan of Treatment: follow-up Has son from Gastroenterology for repeat endoscopy in 2-4 weeks strongly recommend to abstain from all NSAIDs Motrin, ibuprofen and avoid prednisone follow low-calorie diabetic diet take Metamucil for constipation daily Assessment: as above
--- NOTE | 2023-09-30 14:24 | MHC.CM.PN ---
HOME TODAY - SELF CARE RN AWARE OF PLAN
== END 2023-09-30 14:54 | disposition home or self-care (01) | DRG 432 ==
LOC: HO.ED 21:10 → HO.EDOVER 22:14 → HO.S3 09-27 11:10
PROVIDERS: Internal Medicine Gastroenterology; Physician Assistant; Admitting Provider Internal Medicine; Emergency Provider Emergency Medicine; PCP Internal Medicine; Visit Provider Hospitalist
PROC: 0DJ08ZZ Inspection of Upper Intestinal Tract, Via Natural or Artificial Opening Endoscopic (ICD-10-PCS; CPT 43235; principal; 2023-09-27 16:10)
DX: K74.69 Other cirrhosis of liver (principal); I85.11 Secondary esophageal varices with bleeding; D80.1 Nonfamilial hypogammaglobulinemia; D62 Acute posthemorrhagic anemia; K76.6 Portal hypertension; K31.7 Polyp of stomach and duodenum; E11.9 Type 2 diabetes mellitus without complications; K76.89 Other specified diseases of liver; K31.89 Other diseases of stomach and duodenum; E66.9 Obesity, unspecified; G47.33 Obstructive sleep apnea (adult) (pediatric); E03.9 Hypothyroidism, unspecified; E78.5 Hyperlipidemia, unspecified; I10 Essential (primary) hypertension; G89.4 Chronic pain syndrome; Z68.37 Body mass index [BMI] 37.0-37.9, adult; Z91.040 Latex allergy status; Z79.84 Long term (current) use of oral hypoglycemic drugs; Z79.620 Long term (current) use of immunosuppressive biologic; Z79.890 Hormone replacement therapy; Z79.899 Other long term (current) drug therapy
CPT/HCPCS: 36415; 74177; 74178; 80048; 80076; 81001; 81003; 82272; 82947; 83690; 83735; 85014; 85018; 85025; 85027; 85610; 86704; 86706; 86803; 86850; 86900; 86901; 86923; 87340; 88305; 88342; 93005; 99285; C9113; J0171; J1170; J2354; J2405; J2550; J2704; P9016; Q9967

== ENCOUNTER → 2023-09-26 11:53 | Outpatient (BNV) | payer OTHER, SELFPAY | PROVIDERS: Admitting Provider Internal Medicine; Emergency Provider Emergency Medicine; PCP Internal Medicine; Visit Provider Internal Medicine Cardiovascular Disease | DX: R94.31 Abnormal electrocardiogram [ECG] [EKG] (principal); R42 Dizziness and giddiness | CPT/HCPCS: 93010 ==

== ENCOUNTER → 2023-09-26 21:57 | Outpatient (BNV) | payer OTHER, SELFPAY | PROVIDERS: Admitting Provider Internal Medicine; Emergency Provider Emergency Medicine; PCP Internal Medicine; Visit Provider Internal Medicine | DX: K92.2 Gastrointestinal hemorrhage, unspecified (principal); D64.9 Anemia, unspecified | CPT/HCPCS: 99223; 99233; 99239 ==

== ENCOUNTER → 2023-09-26 21:57 | Outpatient (BNV) | payer OTHER, SELFPAY | PROVIDERS: Admitting Provider Internal Medicine; Emergency Provider Emergency Medicine; PCP Internal Medicine; Visit Provider Internal Medicine Gastroenterology | DX: K92.1 Melena (principal); K92.2 Gastrointestinal hemorrhage, unspecified; K31.7 Polyp of stomach and duodenum | CPT/HCPCS: 43236; 43244; 43251; 99223; 99233 ==

== ENCOUNTER 2023-10-13 10:58 | Outpatient (AMB) | payer OTHER, SELFPAY ==
--- NOTE | 2023-10-13 11:00 | MHC.PC.OV ---
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 Driver Required: No Accompanied by: Self / Same As Patient Allergies cephalexin Allergy (Severe, Verified 10/13/23 11:50) Difficulty Breathing latex [LATEX] Allergy (Severe, Verified 10/13/23 11:50) Difficulty Breathing levofloxacin [From LEVAQUIN] Allergy (Severe, Verified 10/13/23 11:50) SHORTNESS OF BREATH, RASH, rash morphine [MORPHINE] Allergy (Severe, Verified 10/13/23 11:50) RASH, asthma exacerbation, rash baclofen [BACLOFEN] Allergy (Intermediate, Verified 10/13/23 11:50) Rash celecoxib [Celebrex] Allergy (Intermediate, Verified 10/13/23 11:50) itching, rash, flushing prednisone [PREDNISONE] Allergy (Intermediate, Verified 10/13/23 11:50) RASH, asthma exacerbation, rash codeine Allergy (Unknown, Verified 10/13/23 11:50) Rash gluten [GLUTEN] Allergy (Unknown, Verified 10/13/23 11:50) UNKNOWN oxycodone Allergy (Unknown, Verified 10/13/23 11:50) rash ranitidine Allergy (Unknown, Verified 10/13/23 11:50) unknown roflumilast [Daliresp] Allergy (Unknown, Verified 10/13/23 11:50) rash tramadol [TRAMADOL] Allergy (Unknown, Verified 10/13/23 11:50) RASH,SHORTNESS OF BREATH AND HEADACHE, asthma exacerbation, rash celery Allergy (Verified 10/13/23 11:50) Rash cyclobenzaprine [From Flexeril] Allergy (Verified 10/13/23 11:50) Rash and asthma exacerbation environmental allergies Allergy (Verified 10/13/23 11:50) Cleaning products cause asthma attack pineapple Allergy (Verified 10/13/23 11:50) Rash strawberry Allergy (Verified 10/13/23 11:50) Rash sulfamethoxazole [From Bactrim] Adverse Reaction (Intermediate, Verified 10/13/23 11:50) vertigo trimethoprim [From Bactrim] Adverse Reaction (Intermediate, Verified 10/13/23 11:50) vertigo diazepam [From Valium] Adverse Reaction (Verified 10/13/23 11:50) Cough Medication List - Last Reconciled 10/13/23 by Cassius Strong MD atorvastatin 40 mg PO BEDTIME benralizumab (Fasenra) 30 mg subcut Q8W blood pressure monitor As directed blood sugar diagnostic (FreeStyle Lite Strips) As directed- checks 4-5 X/day calcium citrate 500 mg (2 x 250 mg calcium) PO BID 30 days carvedilol 6.25 mg See Protocol PO BID cholecalciferol (vitamin D3) 100 mcg PO BEDTIME clotrimazole 10 mg mucous membrane TID PRN [DIABETIC SHOES DIABETIC SHOES - 1 PAIR - use as directed -- Dx: E11.9 -- diabetes mellitus] ferrous sulfate (FeroSul) 325 mg PO DAILY Fiasp FlexTouch U-100 Insulin 100 unit/mL (3 mL) (insulin aspart (niacinamide)) Inject 5 to 20 units SQ before meals and snacks, FOUR TIMES A DAY 30 days NS hydromorphone 1 mg (1/2 x 2 mg) PO BID hydromorphone 2 mg PO BID hydromorphone 2 mg PO TID PRN 7 days hydromorphone 2 mg PO TID PRN 7 days immun glob V-vbw-sihz-IgA 0-50 5 gram (Gammagard S-D (IgA < 1 mcg/mL)) 40 grams IV Q3W ipratropium bromide 2 sprays intranasal DAILY lancets (FreeStyle Lancets) 5 times a day levalbuterol tartrate 45 mcg/actuation (Xopenex HFA) 2 puffs inhalation Q6H PRN 30 days levothyroxine (Synthroid) 224 mcg PO BEDTIME loratadine 10 mg PO DAILY losartan 25 mg PO BEDTIME 90 days metformin ER 1,000 mg PO BID@0900,1700 montelukast 10 mg PO BEDTIME 90 days nebulizers As directed omeprazole 40 mg PO BID ondansetron 8 mg PO Q8H PRN 10 days pen needle, diabetic (Easy Comfort Pen [place]) As directed inmjects 4 X/day pyridostigmine bromide 60 mg PO TID sucralfate 1 g (10 mL) PO QIDACHS tizanidine 4 mg PO BEDTIME Tobacco use date assessed: 08/30/23 Dental Screening Dental Screen Date: 10/13/23 Did you have a dental visit in the last 12 months?: No Did you have a dental problem in the last 6 months where you did not have access to dental care?: No Was dental information given to patient?: Patient has dentist HPI Discharge follow up / TCM HPI Details Patient comes in today for her HDF follow up visit She was [place] [facility] [place] few days about 2 weeks ago when she presented to the ER with lower abdominal pain as well as some black stools with occasional blood clots GI was consulted and she eventually underwent upper endoscopy, which revealed large varices that required banding x 5 and hemospray application; also required octreotide drip for 72 hours following her upper GI procedure and was started as well on Pantoprazole and Carafate, which she is to continue on She was started on Carvedilol for hypertensive portal gastropathy and Metoprolol was discontinued She will need to undergo repeat EGD in 4 weeks for follow up Patient states that her blood pressure has been running lower than usual ever since she was switched from Metoprolol to Carvedilol BID Relates experiencing only occasional dizziness; denies any headaches Denies any chest pains, no increased SOB States that her previous GI symptoms have resolved and she has not had any nausea, vomiting or abdominal pain lately and her bowel movements have been normal with no further black stools or blood in her stool Adds that her chronic hip pain and joint pains remain adequately controlled on her current Rx [facility] Medical History Anemia Chronic restrictive lung disease Brugada syndrome Shortness of breath Encounter for care related to Port-a-Cath Tinea pedis Recurrent cellulitis of lower extremity CHARLES (obstructive sleep apnea) Hypogammaglobulinemia Asthma Cellulitis of both lower extremities Right hip pain Lumbar degenerative disc disease Benign essential hypertension Obesity (BMI 30-39.9) Mitochondrial myopathy Asthma Diabetes mellitus History of revision of total replacement of right hip joint (~12/2019) Acquired hypothyroidism Pain of both hip joints Pure hypercholesterolemia Hx of cataract HTN (hypertension) Osteopenia Hypothyroidism Osteoarthritis of hip Gastritis Surgical History History of removal of Port-a-Cath History of total right hip arthroplasty (~06/03/19) History of eye surgery (~09/2017) History of hip surgery Hx of foot surgery (~01/02/19) History of removal of cyst Hx of left knee surgery History of elbow surgery (~07/2016) Hx of thumb surgery Hx of appendectomy Hx of hysterectomy (~07/2011) Hx of bilateral breast reduction surgery Family History Father Leukemia Mother Hypertension Diabetes Sister Alive and well Brother Pancreatic cancer Paternal Grandmother Stomach cancer Paternal Grandmother Throat cancer Social History Household Members: Family Housing: Apartment Do you presently have visiting nurse or other home services: No Alcohol intake: former Comment: refused bed alarm Patient Tobacco Use Status: Never used Tobacco e-Cigarette/Vaping Use: Never Used Second Hand Smoke Exposure: No service: No Current occupational status: disabled Cognitive needs: No Hearing needs: No Vision needs: No Questionnaire Thrive Questionnaire Date Thrive assessed: 09/28/23 REI-7 AMB Questionnaire REI-7 Date REI - 7 assessed: 08/30/23 Source: Developed by Drs. Babak Mcintosh, Savannah Vera, Christian Crowell and colleagues, with an educational sarah from [employer]. Review of Systems Const Denies chills, Reports fatigue, Denies fever(s) and Denies headache(s) ENT Denies dysphagia, Reports dizziness (occasionally lately), Denies otalgia, Denies headache(s), Denies odynophagia and Denies sore throat Card Denies chest pain, Denies palpitations and Reports dyspnea on exertion (mild) Resp Denies cough, Reports dyspnea on exertion (mild) and Denies wheezing GI Denies abdominal pain, Denies melena, Denies hematochezia, Denies constipation, Denies dysphagia, Denies heartburn, Denies diarrhea, Denies nausea, Denies odynophagia and Denies vomiting Denies nocturia, Denies dysuria and Denies urinary urgency Musc Reports back pain (over the lumbar spine - chronic) and Reports arthralgias (involving multiple joints, including both hips and knees) Neuro Reports dizziness (occasionally lately) and Denies headache(s) Endo Reports fatigue and Denies palpitations Aller/Immun Denies wheezing Physical exam (Primary Care) Vital Signs: Last Vital Signs Pulse 72 10/13/23 11:02 BP 110/56 L 10/13/23 11:02 Pulse Ox 96 10/13/23 11:02 Oxygen Delivery Method Room Air 10/13/23 11:02 BMI result Body Mass Index 37.0 Tobacco/Smoking Status: Tobacco use Status Tobacco use date assessed 08/30/23 10/13/23 11:00 Patient Tobacco Use Status Never used Tobacco 10/13/23 11:00 e-Cigarette/Vaping Use Never Used 10/13/23 11:00 Thrive Assessment: Date of Thrive Assessment Date Thrive assessed 09/28/23 10/13/23 11:00 Const General: no acute distress and alert HENMT Throat: Yes posterior oropharynx normal and Yes tonsils normal (no TP congestion noted) Neck Neck: Yes no lymphadenopathy and Yes supple Resp Auscultation: clear to auscultation bilaterally, no rales and no wheezes Cardio Rate: regular rate Rhythm: regular rhythm Heart sounds: no murmurs GI Palpation (GI): Soft to palpation, nontender and no guarding Auscultation: normal bowel sounds Back/Spine/Pelvis Thoracic/Lumbar Spine: lumbar spinal tenderness Skin Rashes: no rashes Extrem General: Yes no clubbing, cyanosis or edema Right lower extremity: hip/thigh Details: tenderness Location: of the hip and knee Details: tenderness; no swelling Left lower extremity: hip/thigh Details: tenderness Location: of the hip and knee Details: tenderness; no swelling Results Reviewed Results Reviewed: Laboratory Tests 08/28/23 09/29/23 09/29/23 11:21 06:01 06:01 WBC 6.0 Hgb Hct Plt Count 135 L Sodium 137 Potassium 3.9 Creatinine 0.66 Estimated GFR Random Glucose Hemoglobin A1c % 7.9 H Triglycerides 102 Cholesterol 132 LDL Cholesterol, Calc 83 HDL Cholesterol 29 L 09/29/23 09/30/23 06:01 12:38 WBC Hgb 10.0 L Hct 30.1 L Plt Count Sodium Potassium Creatinine Estimated GFR > 60 Random Glucose 182 H Hemoglobin A1c % Triglycerides Cholesterol LDL Cholesterol, Calc HDL Cholesterol Assessment and Plan Assessment & Plan (1) Anemia: Code(s): D64.9 - Anemia, unspecified Qualifiers: Anemia type: unspecified type Qualified Code(s): D64.9 - Anemia, unspecified Plan: Due to recent GI bleeding Patient received 2 units of PRBC during her recent hospital stay Her H/H were still low at 10.0/30.1 when last checked a couple of weeks ago on 09/30/2023 Continue Ferrous Sulfate 325 mg QD Will have her recheck her CBC in a couple of weeks for follow up (2) Upper GI bleed: Code(s): K92.2 - Gastrointestinal hemorrhage, unspecified Plan: EGD done by Dr. Delarosa a couple of weeks ago revealed (+) large varices that required banding x 5 and hemospray application Patient also had a gastric polyp that was removed surgically She required octreotide drip for 72 hours following her upper GI procedure Continue Omeprazole 40 mg BID; continue Carvedilol 6.25 mg BID for hypertensive portal gastropathy Avoid all NSAIDs She is scheduled for repeat EGD in 4 weeks; follow up with GI as scheduled (3) Diabetes mellitus: Code(s): E11.9 - Type 2 diabetes mellitus without complications Qualifiers: Diabetes mellitus type: type 2 Diabetes mellitus termite treater insulin use: without termite treater use Diabetes mellitus complication status: without complication Qualified Code(s): E11.9 - Type 2 diabetes mellitus without complications Plan: Her HgbA1c was at 7.9% on her labs done last month on 08/28/2023 (was at 8.0% a few months ago) - goal is < 7.0% Reinforced diabetic diet Continue Metformin 1000 mg BID, Tresiba 5 units QD and Fiasp TID with meals per sliding scale Follow up with endocrinology (Dr. Mahan) as scheduled (4) Benign essential hypertension: Code(s): I10 - Essential (primary) hypertension Plan: Reinforced low sodium diet - goal is systolic BP of at least 120 to 130 mm or less She has been started on Carvedilol 6.25 mg BID recently for hypertensive portal gastropathy and her Metoprolol was discontinued She is currently still on Losartan 25 mg QD but has noticed that her blood pressure has been consistently running much lower than usual lately Reports only occasional dizziness; denies any headaches Will have patient try HOLDING her Losartan 25 mg QD for now Patient is reminded to continue monitoring her blood pressure regularly and is advised to call if her systolic BP goes up and stays up over 140 mm consistently once she stops taking her Losartan (5) Pure hypercholesterolemia: Code(s): E78.00 - Pure hypercholesterolemia, unspecified Plan: Reinforced low cholesterol diet Continue Atorvastatin 40 mg QD (6) Asthma: Code(s): J45.909 - Unspecified asthma, uncomplicated Qualifiers: Asthma severity: moderate Asthma persistence: persistent Asthma complication type: uncomplicated Qualified Code(s): J45.40 - Moderate persistent asthma, uncomplicated Plan: Stable Continue Montelukast 10 mg once a day in the evening, Spiriva Respimat 20-100 mcg 1 inhalation 4 times a day, Ventolin HFA 2 puffs 4 times a day as needed and DuoNeb nebulizer solution 3 mL via nebulizer 4 times a day as needed Continue Fasenra 30 mg subcutaneous injection every 8 weeks Follow up with pulmonary as scheduled (7) Acquired hypothyroidism: Code(s): E03.9 - Hypothyroidism, unspecified Plan: Continue Synthroid 224 mcg QD (8) Mitochondrial myopathy: Code(s): G71.3 - Mitochondrial myopathy, not elsewhere classified Plan: Continue Mestinon tablets 60 mg 4 times a day Patient also receives Gammagard infusion 40 mg IV every 3 weeks but she had to have her port-a-cath removed a few months ago due to blockage Follow up with Dr. Cobian and with neurology as scheduled for continuing management (9) Lumbar degenerative disc disease: Code(s): M51.36 - Other intervertebral disc degeneration, lumbar region Plan: Reinforced activity and weight-lifting restrictions Continue Hydromorphone 2 mg 3 times a day as needed Follow up with [facility] as scheduled (10) Right hip pain: Comment: S/P right hip arthroplasty by Dr. Simon on 06/03/2019 (due to avascular necrosis), then S/P revision of right hip in 12/2019 Code(s): M25.551 - Pain in right hip Plan: Continues to experience increased pain in her right hip despite her arthroplasty followed by revision surgery in 2019 Follow up with orthopedics ([facility]) as scheduled Recalls getting some hip x-rays done at [facility] a few months ago but does not know how her x-rays came out To consider again referral to pain management if her pain progresses (11) Obesity (BMI 30-39.9): Code(s): E66.9 - Obesity, unspecified Plan: Reinforced diet; exercise and weight loss are currently unrealistic expectations due to her multiple comorbidities Plan Follow up as scheduled in December 2023 Orders: Orders Complete Blood Count Auto Diff 2 Weeks D64.9 - Anemia, unspecified, I10 - Essential (primary) hypertension, K92.2 - Gastrointestinal hemorrhage, unspecified IRON PROFILE 2 Weeks D50.9 - Iron deficiency anemia, unspecified, D64.9 - Anemia, unspecified, K92.2 - Gastrointestinal hemorrhage, unspecified Comprehensive Met. Panel 2 Weeks D64.9 - Anemia, unspecified, K92.2 - Gastrointestinal hemorrhage, unspecified Medications: On Hold losartan Hold Comment: Doctor's Order 25 mg PO BEDTIME 90 days 90 tabs 3RF Coding Level of Care Code Est Pt Level 4 (81192) Diagnoses Anemia, unspecified type D64.9 Anemia type: unspecified type Upper GI bleed K92.2 Type 2 diabetes mellitus without complication, without long-term current use of insulin E11.9 Diabetes mellitus type: type 2 Diabetes mellitus termite treater insulin use: without termite treater use Diabetes mellitus complication status: without complication Benign essential hypertension I10 Pure hypercholesterolemia E78.00 Moderate persistent asthma without complication J45.40 Asthma severity: moderate Asthma persistence: persistent Asthma complication type: uncomplicated Acquired hypothyroidism E03.9 Mitochondrial myopathy G71.3 Lumbar degenerative disc disease M51.36 Right hip pain M25.551 Obesity (BMI 30-39.9) E66.9
[2023-10-13 11:02] VITALS: BP 110/56; PULSE 72; O2SAT 96; BMI 37.0
== END 2023-10-13 12:10 | disposition home or self-care (01) ==
PROVIDERS: PCP Internal Medicine; Visit Provider Internal Medicine
DX: D64.9 Anemia, unspecified (principal); K92.2 Gastrointestinal hemorrhage, unspecified; E11.9 Type 2 diabetes mellitus without complications; I10 Essential (primary) hypertension; E78.00 Pure hypercholesterolemia, unspecified; J45.40 Moderate persistent asthma, uncomplicated; E03.9 Hypothyroidism, unspecified; G71.3 Mitochondrial myopathy, not elsewhere classified; M51.36 Other intervertebral disc degeneration, lumbar region; M25.551 Pain in right hip
CPT/HCPCS: 99214

== ENCOUNTER 2023-10-26 15:11 | Outpatient (REF) | payer OTHER, SELFPAY ==
[2023-10-26 15:26] LABS: MANUAL DIFF FLAG NO
[2023-10-26 16:03] LABS: Hematocrit 31.3 % (37.0-47.0); Hemoglobin 9.6 g/dl (12.0-16.0); Imm Gran Abs Auto 0.02 X10*3/uL (0.00-0.03); Imm Gran Pct Auto 0.4 % (0.0-0.4); Lymphocytes Absolute Auto 1.5 X10*3/uL (1.2-4.9); Lymphocytes Percent Auto 30.3 % (20-40); Mean Corpuscular HGB Conc 30.7 g/dl (31.0-35.0); Mean Corpuscular Hemoglobin 25.5 pg (27.0-33.0); Mean Corpuscular Volume 83.2 fL (80.0-98.0); Mean Platelet Volume 11.3 fL (9.4-12.3); Monocytes Absolute Auto 0.4 X10*3/uL (0.1-1.2); Monocytes Percent Auto 8.4 % (2-11); Neutrophils Percent Auto 60.9 % (45-73); Platelet Count 140 X10*3/uL (160-400); Red Blood Count 3.76 X10*6/uL (4.20-5.50); Red Cell Distribution Width 13.6 % (11.0-16.0)
[2023-10-26 16:07] LABS: Estimated Average Glucose 163 mg/dL; Hemoglobin A1c % 7.3 % (<6.0)
[2023-10-26 16:38] LABS: Alanine Aminotransferase 43 U/L (0-31); Albumin Level 3.9 g/dL (3.5-5.0); Alkaline Phosphatase 92 U/L (39-117); Anion Gap 14 (12-20); Aspartate Amino Transferase 28 U/L (5-31); Bilirubin Total 0.6 mg/dL (0.0-1.0); Blood Urea Nitrogen 12 mg/dL (9-16); Calcium 9.2 mg/dL (8.4-10.2); Carbon Dioxide 27 mmol/L (22-29); Chloride 103 mmol/L (96-108); Cholesterol 111 mg/dL (<200); Estimated Glomerular Filt Rate > 60; Glucose Fasting 218 mg/dL (60-99); Glucose Random 217 mg/dL (60-115); HDL Cholesterol 29 mg/dL (>40); Iron 42 mcg/dL (30-160); LDL Cholesterol Calculated 57 mg/dL (<100); Percent Iron Saturation 12 % (15-50); Sodium 140 mmol/L (135-145); Total Iron Binding Capacity 338 mcg/dL (228-428); Total Protein 6.9 g/dL (6.5-8.0); Triglycerides 125 mg/dL (<150); Unsaturated Iron Binding 296 ug/dL
[2023-10-26 16:55] LABS: Appearance Urine Clear; Color Urine Yellow; Glucose Urine UA 100 mg/dL (Negative); Leukocyte Esterase Urine Small (1+) (Negative); Nitrite Urine Negative (Negative); PH 5.5 (5.0-9.0); Specific Gravity - Urine 1.015 (1.005-1.025); UMIC TRIGGER UACC YES; Urine Blood Negative (Negative); Urine Ketones Negative (Negative); Urine Protein Negative (Neg-Trace)
[2023-10-26 16:56] LABS: Free T4 (Free Thyroxine) 1.17 ng/dL (0.71-1.85)
[2023-10-26 17:01] LABS: Bacteria Urine None Seen (None Seen); Hyaline Casts Urine 0-2 /LPF (0-2); RBC Urine 0-2 /HPF (0-2); UACC Culture Trigger YES
== END 2023-10-26 15:12 | disposition home or self-care (01) ==
LOC: HO.LAB 15:11
PROVIDERS: PCP Internal Medicine; Visit Provider Internal Medicine
DX: E11.9 Type 2 diabetes mellitus without complications (principal); E78.00 Pure hypercholesterolemia, unspecified; E03.9 Hypothyroidism, unspecified; D50.9 Iron deficiency anemia, unspecified; I10 Essential (primary) hypertension; D64.9 Anemia, unspecified; K92.2 Gastrointestinal hemorrhage, unspecified; R30.0 Dysuria
CPT/HCPCS: 36415; 80053; 80061; 81001; 83036; 83540; 84439; 84443; 85025; 87086

== ENCOUNTER 2023-11-19 08:09 | Inpatient (IN) | payer OTHER, SELFPAY ==
--- NOTE | ~2023-11-19 | CT_ITS ---
EXAMINATION: CT ABDOMEN AND PELVIS WITH CONTRAST CLINICAL INFORMATION: Abdominal pain and melena COMPARISON: Previous CT of the abdomen and pelvis September 2023 TECHNIQUE: Multidetector volumetric imaging was performed of the abdomen and pelvis pre-IV contrast and following administration of 74 mL Omnipaque 350 IV contrast. Arterial phase imaging could not be obtained due to difficulty with contrast injection. Delayed two-minute imaging following IV contrast performed. Oral contrast was not administered. Sagittal and coronal reformatted images were obtained on the technologist's workstation. This CT examination was performed using dose optimization techniques as appropriate, variously including the following: *Automated exposure control *Adjustment of mA and/or kV according to patient size (this includes techniques or standardized protocols for targeted exams where dose is matched to indication/reason for exam; i.e. extremities or head) *Use of iterative reconstruction technique DLP: 2261.56 mGy-cm FINDINGS: Calcifications right breast. Lung bases are clear. ABDOMEN AND PELVIS: ABDOMINAL AND PELVIC WALL: Unremarkable. LIVER AND BILIARY TREE: Unremarkable. GALLBLADDER: Unremarkable. PANCREAS: There are several small cysts seen in the pancreas. Largest measures 1 cm tail do not appear appreciably changed from September 2023 exam. SPLEEN: Upper normal-size measuring 13 cm in length. ADRENAL GLANDS: Unremarkable. KIDNEYS AND URETERS: Unremarkable. There is excreted contrast in the bilateral renal collecting systems appear unremarkable. GASTROINTESTINAL TRACT: Long segment wall thickening of the colon suggestive of pancolitis. Mild diverticulosis of the colon. Small bowel is unremarkable. Radiopaque density in the body of the stomach, question possible biopsy clip. Clinical correlation recommended. VASCULAR: Unremarkable. LYMPH NODES: Small retroperitoneal nodes. No enlarged lymph nodes.. FREE FLUID: No free fluid. BLADDER: Not well-visualized due to artifact from right hip. PELVIC VISCERA: Uterus appears to have been removed. No pelvic mass. OSSEOUS STRUCTURES: Right hip replacement. Heterogeneous attenuation and calcified right iliacus muscle similar to prior exam. Scoliosis and degenerative changes of the spine. CT/CT gi bleed abd pel wo/w IVcon IMPRESSION: * Limited evaluation for GI bleed due to difficulty the with IV contrast injection. Pancolitis. Mild diverticulosis. Probable surgical biopsy clip in the body of the stomach.
--- NOTE | ~2023-11-19 | NM_ITS ---
EXAMINATION: NM BILIARY TRACT CLINICAL INFORMATION: Right upper quadrant pain COMPARISON: Ultrasound from earlier today TECHNIQUE: Multiple sequential gamma camera images were obtained after the administration of 5 mCi of technetium 99m mebrofenin. One hour into the exam, 1.9 mcg of CCK was given intravenously. FINDINGS: There is prompt concentration of activity within the hepatic parenchyma with biliary excretion and gallbladder activity being seen at 11 minutes time. Activity extends through the common duct into the proximal small bowel by 24 minutes time. After 1 hour of scanning, CCK was injected. The estimated gallbladder ejection fraction at 20 minutes was 2% and at 30 minutes was 13%. NM/NM hepatobiliary w pharm IMPRESSION: Normal filling of the gallbladder with no evidence for obstruction. There is prompt spillage of activity through the common bile duct into the small bowel. Gallbladder ejection fraction was measured at 13% at 30 minutes time which is considered low.
--- NOTE | ~2023-11-19 | US_ITS ---
EXAMINATION: US ABDOMEN LIMITED CLINICAL INFORMATION: Right upper quadrant pain.. COMPARISON: Previous CT from earlier the same day TECHNIQUE: Real-time imaging of the gallbladder FINDINGS: GALLBLADDER: The gallbladder is slightly dilated measuring 10 x 4.5 x 4.2 cm. No gallstones are seen. Gallbladder wall appears slightly irregular and echogenic with area measuring up to 6 mm. The systems technologist reports the patient is tender over the gallbladder. Appearance is questionable for a calculus.. COMMON BILE DUCT: Normal in caliber measuring 0.4 cm in diameter. US/US abdomen limited IMPRESSION: No gallstones. Distended gallbladder with slightly thickened echogenic gallbladder wall and positive sonographic Peng's sign. Appearance is questionable for acalculus cholecystitis. Follow-up HIDA scan may be helpful.
[2023-11-19 08:14] VITALS: BP 149/95; BP 210/144; PULSE 122; PULSE 161; RESP 20; TEMP 37.4; O2SAT 94; O2SAT 95; BMI 35.8
--- NOTE | 2023-11-19 08:22 | ECG_ITS ---
Test Reason : HTN Blood Pressure : / mmHG Vent. Rate : 113 BPM Atrial Rate : 113 BPM P-R Int : 140 ms QRS Dur : 148 ms QT Int : 372 ms P-R-T Axes : 031 -31 002 degrees QTc Int : 510 ms Sinus tachycardia Left axis deviation Right bundle branch block Minimal voltage criteria for LVH, may be normal variant ( R in aVL ) Abnormal ECG When compared with ECG of 26-SEP-2023 13:28, Vent. rate has increased BY 38 BPM Referred By: Carolina Dumont Electronically Signed By:EAGLE WILLIS
[2023-11-19 08:39] LABS: MANUAL DIFF FLAG NO
[2023-11-19 08:42] LABS: Appearance Urine Cloudy; Color Urine Yellow; Glucose Urine UA 100 mg/dL (Negative); Leukocyte Esterase Urine Small (1+) (Negative); Nitrite Urine Negative (Negative); PH 8.5 (5.0-9.0); UMIC TRIGGER UACC YES; Urine Blood Negative (Negative); Urine Ketones Trace mg/dL (Negative); Urine Protein Trace mg/dL (Neg-Trace)
[2023-11-19 08:43] LABS: OBS Int Ctl Valid YES; OBS1 POSITIVE (NEGATIVE)
[2023-11-19 08:44] LABS: Basophils Percent Auto 0.1 % (0-2); Hematocrit 35.4 % (37.0-47.0); Hemoglobin 11.5 g/dl (12.0-16.0); Imm Gran Abs Auto 0.02 X10*3/uL (0.00-0.03); Imm Gran Pct Auto 0.2 % (0.0-0.4); Lymphocytes Absolute Auto 0.8 X10*3/uL (1.2-4.9); Lymphocytes Percent Auto 8.2 % (20-40); Mean Corpuscular HGB Conc 32.5 g/dl (31.0-35.0); Mean Corpuscular Hemoglobin 26.1 pg (27.0-33.0); Mean Corpuscular Volume 80.3 fL (80.0-98.0); Monocytes Absolute Auto 0.6 X10*3/uL (0.1-1.2); Monocytes Percent Auto 6.4 % (2-11); Neutrophils Absolute Auto 8.4 x10*3/uL (2.0-8.3); Neutrophils Percent Auto 85.1 % (45-73); Platelet Count 177 X10*3/uL (160-400); Red Blood Count 4.41 X10*6/uL (4.20-5.50); Red Cell Distribution Width 13.6 % (11.0-16.0); White Blood Count 9.8 X10*3/uL (4.8-10.8)
[2023-11-19 08:46] LABS: Prothrombin Time 12.4 SEC (11.1-13.3)
[2023-11-19 08:47] LABS: Bacteria Urine Trace (None Seen); Hyaline Casts Urine 0-2 /LPF (0-2); RBC Urine 0-2 /HPF (0-2); UACC Culture Trigger YES
[2023-11-19 08:53] LABS: COVID-19 Test Negative (Negative); IDNOW Serial# 08D9AD1C
[2023-11-19 08:54] LABS: Alanine Aminotransferase 48 U/L (0-31); Albumin Level 4.2 g/dL (3.5-5.0); Alkaline Phosphatase 114 U/L (39-117); Anion Gap 16 (12-20); Aspartate Amino Transferase 33 U/L (5-31); Bilirubin Total 1.2 mg/dL (0.0-1.0); Blood Urea Nitrogen 13 mg/dL (9-16); Calcium 9.4 mg/dL (8.4-10.2); Carbon Dioxide 23 mmol/L (22-29); Chloride 104 mmol/L (96-108); Creatinine Clr Calc Pharmacy 84.3; Estimated Glomerular Filt Rate > 60; Glucose Random 211 mg/dL (60-115); Potassium 3.9 mmol/L (3.3-5.1); Sodium 139 mmol/L (135-145); Total Protein 7.5 g/dL (6.5-8.0)
--- NOTE | 2023-11-19 08:59 | ED_ITS ---
HPI - GI Bleed General Chief complaint: Nausea/Vomiting/Diarrhea Stated complaint: DIARRHEA BLACK STOOL Time Seen by Provider: 11/19/23 08:22 Source: patient Mode of arrival: EMS History of Present Illness HPI Narrative: 52-year-old female it is not currently on any anticoagulation states she began having abdominal cramping with multiple episodes diarrhea last night and states that the stools were very dark. She does have a recent history of bleeding that was attributed to NSAIDs and she reports taking iron. Related Data Home Medications Medication Instructions Recorded Confirmed ipratropium bromide 42 mcg (0.06 2 spray intranasal DAILY 03/11/21 10/13/23 %) nasal spray immune glob,gamma(IgG) 5 40 g IV Q3W 07/09/21 10/13/23 [id number]-[id number]-IgA 0 to 50 mcg/mL IV solution (Gammagard S-D (IgA < 1 mcg/mL)) benralizumab 30 mg/mL subcutaneous 30 mg subcut Q8W 10/06/22 10/13/23 syringe (Fasenra) pyridostigmine bromide 60 mg tablet 60 mg PO TID 01/02/23 10/13/23 nebulizers 03/09/23 10/13/23 clotrimazole 10 mg jacinta 10 mg mucous membrane TID PRN 08/28/23 10/13/23 THRUSH cholecalciferol (vitamin D3) 50 100 mcg PO BEDTIME 09/26/23 10/13/23 mcg (2,000 unit) capsule hydromorphone 2 mg tablet 2 mg PO BID pain 09/26/23 10/13/23 loratadine 10 mg tablet 10 mg PO DAILY 09/26/23 10/13/23 metformin 500 mg tablet,extended 1,000 mg PO BID@0900,1700 09/26/23 10/13/23 release 24 hr Previous Rx's Medication Instructions Recorded lancets 28 gauge (FreeStyle #150 ea 07/28/20 Lancets) pen needle, diabetic 33 gauge x #100 ea 10/06/22 5/32 (Easy Comfort Pen [place]) blood pressure monitor #1 ea 01/21/23 Fiasp FlexTouch U-100 Insulin 100 See Rx Instructions subcut 04/03/23 unit/mL (3 mL) subcutaneous pen .COMPLEX 30 days #150 mL (insulin aspart (niacinamide)) atorvastatin 40 mg tablet 40 mg PO BEDTIME #90 tabs 06/26/23 calcium citrate 500 mg (2 x 250 mg calcium) PO BID 07/05/23 30 days #120 tabs montelukast 10 mg tablet 10 mg PO BEDTIME 90 days #90 tabs 07/05/23 DIABETIC SHOES #1 ea 09/01/23 ferrous sulfate 325 mg (65 mg 325 mg PO DAILY #90 tabs 09/06/23 iron) tablet (FeroSul) carvedilol 6.25 mg tablet 6.25 mg PO BID #60 tabs 09/30/23 omeprazole 40 mg capsule,delayed 40 mg PO BID gastritis #180 caps 09/30/23 release sucralfate 100 mg/mL oral 1 g (10 mL) PO QIDACHS #1,200 mL 09/30/23 suspension losartan 25 mg tablet 25 mg PO BEDTIME 90 days #90 tabs 10/02/23 hydromorphone 2 mg tablet 2 mg PO TID PRN pain 7 days #21 10/18/23 tabs Synthroid 112 mcg tablet 224 mcg (2 x 112 mcg) PO DAILY #60 10/23/23 (levothyroxine) tabs tizanidine 2 mg tablet 2 mg PO TID PRN for muscle spasm 10/23/23 #90 tabs hydromorphone 2 mg tablet 2 mg PO TID PRN pain 7 days #21 11/10/23 tabs blood sugar diagnostic (FreeStyle #100 ea 11/14/23 Lite Strips) levalbuterol tartrate 45 2 puff inhalation Q6H PRN 11/14/23 mcg/actuation aerosol inhaler shortness of breath or wheezing 30 (Xopenex HFA) days #15 grams ondansetron 8 mg disintegrating 8 mg PO Q8H PRN nausea and 11/14/23 tablet vomiting 10 days #30 tabs Allergies Allergy/AdvReac Type Severity Reaction Status Date / Time cephalexin Allergy Severe Difficulty Verified 10/13/23 11:50 Breathing latex [LATEX] Allergy Severe Difficulty Verified 10/13/23 11:50 Breathing levofloxacin [From LEVAQUIN] Allergy Severe SHORTNESS Verified 10/13/23 11:50 OF BREATH, RASH, rash morphine [MORPHINE] Allergy Severe RASH, Verified 10/13/23 11:50 asthma exacerbation, rash baclofen [BACLOFEN] Allergy Intermediate Rash Verified 10/13/23 11:50 celecoxib [Celebrex] Allergy Intermediate itching, Verified 10/13/23 11:50 rash, flushing prednisone [PREDNISONE] Allergy Intermediate RASH, Verified 10/13/23 11:50 asthma exacerbation, rash codeine Allergy Unknown Rash Verified 10/13/23 11:50 gluten [GLUTEN] Allergy Unknown UNKNOWN Verified 10/13/23 11:50 oxycodone Allergy Unknown rash Verified 10/13/23 11:50 ranitidine Allergy Unknown unknown Verified 10/13/23 11:50 roflumilast [Daliresp] Allergy Unknown rash Verified 10/13/23 11:50 tramadol [TRAMADOL] Allergy Unknown RASH,SHORTNESS Verified 10/13/23 11:50 OF BREATH AND HEADACHE, asthma exacerbation, rash celery Allergy Rash Verified 10/13/23 11:50 cyclobenzaprine Allergy Rash and Verified 10/13/23 11:50 [From Flexeril] asthma exacerbation environmental allergies Allergy Cleaning Verified 10/13/23 11:50 products cause asthma attack pineapple Allergy Rash Verified 10/13/23 11:50 strawberry Allergy Rash Verified 10/13/23 11:50 sulfamethoxazole AdvReac Intermediate vertigo Verified 10/13/23 11:50 [From Bactrim] trimethoprim [From Bactrim] AdvReac Intermediate vertigo Verified 10/13/23 11:50 diazepam [From Valium] AdvReac Cough Verified 10/13/23 11:50 Review of Systems 2 Review of Systems: Pertinent positives and negatives as stated in HPI PMFSH Past Medical History Source: nursing notes reviewed Medical History Anemia Chronic restrictive lung disease Brugada syndrome Shortness of breath Encounter for care related to Port-a-Cath Tinea pedis Recurrent cellulitis of lower extremity CHARLES (obstructive sleep apnea) Hypogammaglobulinemia Asthma Cellulitis of both lower extremities Right hip pain Lumbar degenerative disc disease Benign essential hypertension Obesity (BMI 30-39.9) Mitochondrial myopathy Asthma Diabetes mellitus History of revision of total replacement of right hip joint (~12/2019) Acquired hypothyroidism Pain of both hip joints Pure hypercholesterolemia Hx of cataract HTN (hypertension) Osteopenia Hypothyroidism Osteoarthritis of hip Gastritis Surgical History History of removal of Port-a-Cath History of total right hip arthroplasty (~06/03/19) History of eye surgery (~09/2017) History of hip surgery Hx of foot surgery (~01/02/19) History of removal of cyst Hx of left knee surgery History of elbow surgery (~07/2016) Hx of thumb surgery Hx of appendectomy Hx of hysterectomy (~07/2011) Hx of bilateral breast reduction surgery Family History Family History Father Leukemia Mother Hypertension Diabetes Sister Alive and well Brother Pancreatic cancer Paternal Grandmother Stomach cancer Paternal Grandmother Throat cancer Social History Social History Household Members: Family Housing: Apartment Do you presently have visiting nurse or other home services: No Alcohol intake: former Comment: refused bed alarm Patient Tobacco Use Status: Never used Tobacco Smoked in Last 30 Days: No e-Cigarette/Vaping Use: Never Used Second Hand Smoke Exposure: No Use of substances other than those prescribed or required for medical reasons: No Advance Directives: Yes Advance Directives on File: Yes Advance Directives Date on File: 10/02/23 service: No Current occupational status: disabled Cognitive needs: No Hearing needs: No Vision needs: No Physical Exam 2 Vital Signs: Vital Signs: Last Vital Signs Temp 97.8 F 11/19/23 11:56 Pulse 110 H 11/19/23 11:56 Resp 15 11/19/23 11:56 BP 138/93 H 11/19/23 11:56 Pulse Ox 94 11/19/23 11:56 O2 Del Method Room Air 11/19/23 11:56 BMI result Body Mass Index 35.8 VITAL SIGNS: Reviewed. GENERAL: Well developed, well nourished, in no acute distress. HEAD: Normocephalic/atraumatic EYES: PERRLA, EOMI EARS: Ext canals without abnormality NOSE: Nares patent bilateral OROPHARYNX: no oral lesions noted, posterior pharynx clear NECK: Supple, no adenopathy LUNGS: Normal breath sounds. No adventitious sounds or accessory muscle use. SpO2<94> CARDIOVASCULAR: Regular rate and rhythm without noted murmurs ABDOMEN: Soft, non-tender, non-distended with bowel sounds. RECTAL: No lesions noted, soft dark stool is noted MUSCULOSKELETAL: No tenderness, deformities, or effusions noted on gross inspection. EXTREMITIES: No cyanosis, clubbing or edema. SKIN: Inspection of the skin reveals no rashes NEUROLOGIC: Alert and oriented x 4. Strength and sensation to light touch were grossly intact x 4. Medications Administered Discontinued Medications Generic Name Dose Route Start Last Admin Trade Name Freq PRN Reason Stop Dose Admin Hydromorphone HCl 2 mg 11/19/23 13:56 11/19/23 14:10 Hydromorphone Hcl 2 Mg Tablet PO 11/19/23 13:57 2 mg ONCE ONE Administration Sodium Chloride 500 mls @ 999 mls/hr 11/19/23 10:30 11/19/23 10:39 Ns IV 11/19/23 11:00 999 mls/hr .Q31M FLORECITA Administration Iohexol 90 ml 11/19/23 10:16 11/19/23 10:17 Iohexol 350 Mg/Ml 75 Ml Infus..Btl IV 11/19/23 10:17 90 ml ONCE ONE Administration Ondansetron HCl 4 mg 11/19/23 08:59 11/19/23 09:06 Ondansetron Hcl 4 Mg/2 Ml Vial IVPUSH 11/19/23 09:00 4 mg ONCE ONE Administration Pantoprazole Sodium 80 mg 11/19/23 08:45 11/19/23 09:07 Pantoprazole Sodium 40 Mg/10 Ml Vial IVPUSH 11/19/23 08:46 80 mg ONCE ONE Administration Medical Decision Making Medical Decision Making MDM Narrative: 52-year-old female with history and clinical presentation, DDX: Painful bleeding from the rectum, possible upper GI bleed versus darkness secondary to iron supplementation. Patient does arrive tachycardic but has not taken her Lopressor this morning. I reviewed all investigations and hematologic indices are negative for leukocytosis but there is a noted left shift of unclear significance, there is a normocytic anemia that is slightly better than 10/26/2023. There is no thrombocytopenia at this time. Coagulation studies are within normal limits. Chemistry and disease do not demonstrate CARLITOS and there is no electrolyte derangements, but there is noted elevation of the bilirubin and transaminases without involvement of alkaline phosphatase. Patient denies liver disease or alcohol use. Urinalysis negative for UTI. Guaiac is positive. COVID-[address] scan, patient received 80 mg Protonix, antiemetics. 1021: I have contacted GI who recommends repeat H/H and further evaluation of gallbladder given the noted LFT elevations. 1219: CT scan results have finally posted, no evidence of obvious bleeding, reporting franklin colitis, will proceed with ultrasound of right upper quadrant. Repeat H&H stable, right upper quadrant ultrasound suggestion of acalculous cholecystitis, I discussed this with Dr. Moss who agrees with pursuing HIDA scan. I discussed all results and findings with the patient at bedside and she understands the plan and results at this time. 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 Please see the discussion above 11/19/23 13:31 11/19/23 08:35 Labs: Lab Results 11/19/23 11/19/23 11/19/23 Range/Units 08:34 08:35 09:21 WBC 9.8 (4.8-10.8) X10*3/uL RBC 4.41 (4.20-5.50) X10*6/uL Hgb 11.5 L (12.0-16.0) g/dl Hct 35.4 L (37.0-47.0) % MCV 80.3 (80.0-98.0) fL MCH 26.1 L (27.0-33.0) pg MCHC 32.5 (31.0-35.0) g/dl RDW 13.6 (11.0-16.0) % Plt Count 177 D (160-400) X10*3/uL MPV 11.0 (9.4-12.3) fL Immature Gran % (Auto) 0.2 (0.0-0.4) % Neut % (Auto) 85.1 H (45-73) % Lymph % (Auto) 8.2 L (20-40) % [place] % (Auto) 6.4 (2-11) % Eos % (Auto) 0.0 (0-4) % Baso % (Auto) 0.1 (0-2) % Lymph # (Auto) 0.8 L (1.2-4.9) X10*3/uL [place] # (Auto) 0.6 (0.1-1.2) X10*3/uL Eos # (Auto) 0.0 (0.0-0.4) X10*3/uL Baso # (Auto) 0.0 (0.0-0.2) X10*3/uL Abs Immat Gran (auto) 0.02 (0.00-0.03) X10*3/uL Absolute Neuts (auto) 8.4 H (2.0-8.3) x10*3/uL Absolute Nucleated RBC 0.000 (0.0-0.012) X10*3/uL Nucleated RBC % (auto) 0.0 (0.0-0.2) /100WBC PT 12.4 (11.1-13.3) SEC INR 1.0 (0.9-1.1) Sodium 139 (135-145) mmol/L Potassium 3.9 (3.3-5.1) mmol/L Chloride 104 (96-108) mmol/L Carbon Dioxide 23 (22-29) mmol/L Anion Gap 16 (12-20) BUN 13 (9-16) mg/dL Creatinine 0.86 (0.5-1.4) mg/dL Estim Creat Clear Calc 84.3 Estimated GFR > 60 Random Glucose 211 H (60-115) mg/dL Calcium 9.4 (8.4-10.2) mg/dL Total Bilirubin 1.2 H (0.0-1.0) mg/dL AST 33 H (5-31) U/L ALT 48 H (0-31) U/L Alkaline Phosphatase 114 (39-117) U/L Total Protein 7.5 (6.5-8.0) g/dL Albumin 4.2 (3.5-5.0) g/dL Urine Color Yellow Urine Appearance Cloudy Urine pH 8.5 (5.0-9.0) Ur Specific [place] 1.020 (1.005-1.025) Urine Protein Trace (Neg-Trace) mg/dL Urine Glucose (UA) 100 H (Negative) mg/dL Urine Ketones Trace (Negative) mg/dL Urine Blood Negative (Negative) Urine Nitrite Negative (Negative) Ur Leukocyte Esterase Small (1+) H (Negative) Urine RBC 0-2 (0-2) /HPF Urine WBC 6-10 H (0-5) /HPF Ur Squamous Epith Cells 3-5 (0-2) /HPF Urine Bacteria Trace (None Seen) Hyaline Casts 0-2 (0-2) /LPF Stool Occult Blood POSITIVE (NEGATIVE) COVID-19 (JODY) Negative (Negative) COVID-19 Clin Com See Note Blood Type A Positive Antibody Screen NEGATIVE 11/19/23 Range/Units 13:31 WBC (4.8-10.8) X10*3/uL RBC (4.20-5.50) X10*6/uL Hgb 10.9 L (12.0-16.0) g/dl Hct 33.5 L (37.0-47.0) % MCV (80.0-98.0) fL MCH (27.0-33.0) pg MCHC (31.0-35.0) g/dl RDW (11.0-16.0) % Plt Count (160-400) X10*3/uL MPV (9.4-12.3) fL Immature Gran % (Auto) (0.0-0.4) % Neut % (Auto) (45-73) % Lymph % (Auto) (20-40) % [place] % (Auto) (2-11) % Eos % (Auto) (0-4) % Baso % (Auto) (0-2) % Lymph # (Auto) (1.2-4.9) X10*3/uL [place] # (Auto) (0.1-1.2) X10*3/uL Eos # (Auto) (0.0-0.4) X10*3/uL Baso # (Auto) (0.0-0.2) X10*3/uL Abs Immat Gran (auto) (0.00-0.03) X10*3/uL Absolute Neuts (auto) (2.0-8.3) x10*3/uL Absolute Nucleated RBC (0.0-0.012) X10*3/uL Nucleated RBC % (auto) (0.0-0.2) /100WBC PT (11.1-13.3) SEC INR (0.9-1.1) Sodium (135-145) mmol/L Potassium (3.3-5.1) mmol/L Chloride (96-108) mmol/L Carbon Dioxide (22-29) mmol/L Anion Gap (12-20) BUN (9-16) mg/dL Creatinine (0.5-1.4) mg/dL Estim Creat Clear Calc Estimated GFR Random Glucose (60-115) mg/dL Calcium (8.4-10.2) mg/dL Total Bilirubin (0.0-1.0) mg/dL AST (5-31) U/L ALT (0-31) U/L Alkaline Phosphatase (39-117) U/L Total Protein (6.5-8.0) g/dL Albumin (3.5-5.0) g/dL Urine Color Urine Appearance Urine pH (5.0-9.0) Ur Specific [place] (1.005-1.025) Urine Protein (Neg-Trace) mg/dL Urine Glucose (UA) (Negative) mg/dL Urine Ketones (Negative) mg/dL Urine Blood (Negative) Urine Nitrite (Negative) Ur Leukocyte Esterase (Negative) Urine RBC (0-2) /HPF Urine WBC (0-5) /HPF Ur Squamous Epith Cells (0-2) /HPF Urine Bacteria (None Seen) Hyaline Casts (0-2) /LPF Stool Occult Blood (NEGATIVE) COVID-19 (JODY) (Negative) COVID-19 Clin Com Blood Type Antibody Screen Independent Interpretation I performed an independent interpretation of an: EKG Interpretation: Sinus tachycardia, HR-113, no STEMI, RBBB at baseline, NH within normal limits. Radiology Impression Discussion of test interpretation with radiology: I have reviewed the radiologist's reading. Radiologist Impression: Please see the discussion above External Record Review External record reviewed: Outpatient record, Prior outpatient labs and Prior outpatient radiology Chronic Conditions Patient?s care impacted by: Hypertension Critical Care Time Critical Care Time Critical Care Time: Yes Total Critical Care Time: 90 Attestation: I personally attest to this time spent taking care of the patient. Discharge Plan Discharge Clinical Impression: Right upper quadrant abdominal pain, Pancolitis, Stool guaiac positive Patient Disposition: Still a Patient Prescriptions: No Action (DME) lancets [FreeStyle Lancets] 28 gauge misc See Rx Instructions .MEDSUPPLY Qty: 150 4RF Rx Instructions: 5 times a day (DME) blood pressure monitor Kit See Rx Instructions .Route Qty: 1 0RF Rx Instructions: As directed Fiasp FlexTouch U-100 Insulin 100 unit/mL (3 mL) insulin pen See Rx Instructions subcut .COMPLEX 30 Days Qty: 150 5RF Rx Instructions: Inject 5 to 20 units SQ before meals and snacks, FOUR TIMES A DAY atorvastatin 40 mg tablet 40 mg PO BEDTIME Qty: 90 1RF montelukast 10 mg tablet 10 mg PO BEDTIME 90 Days Qty: 90 3RF calcium citrate 250 mg calcium tablet 500 mg PO BID 30 Days Qty: 120 5RF (DME) DIABETIC SHOES See Rx Instructions .Route .MEDSUPPLY Qty: 1 0RF Rx Instructions: DIABETIC SHOES - 1 PAIR - use as directed -- Dx: E11.9 -- diabetes mellitus ferrous sulfate [FeroSul] 325 mg (65 mg iron) tablet 325 mg PO DAILY Qty: 90 1RF losartan 25 mg tablet 25 mg PO BEDTIME 90 Days Qty: 90 3RF Hold Instructions: Doctor's Order hydromorphone 2 mg tablet 2 mg PO TID PRN (Reason: pain) 7 Days Qty: 21 0RF levothyroxine [Synthroid] 112 mcg tablet 224 mcg PO DAILY Qty: 60 2RF tizanidine 2 mg tablet 2 mg PO TID PRN (Reason: for muscle spasm) Qty: 90 0RF hydromorphone 2 mg tablet 2 mg PO TID PRN (Reason: pain) 7 Days Qty: 21 0RF levalbuterol tartrate [Xopenex HFA] 45 mcg/actuation HFA aerosol inhaler 2 puff inhalation Q6H PRN (Reason: shortness of breath or wheezing) 30 Days Qty: 15 11RF ondansetron 8 mg tablet,disintegrating 8 mg PO Q8H PRN (Reason: nausea and vomiting) 10 Days Qty: 30 1RF (DME) FreeStyle Lite Strips Strip See Rx Instructions .Route Qty: 100 5RF Rx Instructions: As directed- checks 4-5 X/day pyridostigmine bromide 60 mg tablet 60 mg PO TID loratadine 10 mg Tablet 10 mg PO DAILY cholecalciferol (vitamin D3) 50 mcg (2,000 unit) capsule 100 mcg PO BEDTIME hydromorphone 2 mg tablet 2 mg PO BID metformin 500 mg tablet extended release 24 hr 1,000 mg PO BID@0900,1700 sucralfate 100 mg/mL Suspension 1 g PO QIDACHS Qty: 1200 0RF carvedilol 6.25 mg Tablet 6.25 mg PO BID Qty: 60 0RF Protocol: Hold for SBP/HR < HOLD for SBP < : 90 HOLD for HR < : 60 omeprazole 40 mg capsule,delayed release(DR/EC) 40 mg PO BID Qty: 180 0RF Gammagard S-D (IgA < 1 mcg/mL) 5 gram recon soln 40 g IV Q3W Fasenra 30 mg/mL syringe 30 mg subcut Q8W ipratropium bromide 42 mcg (0.06 %) spray,non-aerosol 2 spray intranasal DAILY (DME) pen needle, diabetic [Easy Comfort Pen [place]] 33 gauge x 5/32 needle See Rx Instructions .Route Qty: 100 5RF Rx Instructions: As directed inmjects 4 X/day clotrimazole 10 mg jacinta 10 mg mucous membrane TID PRN (Reason: THRUSH) (DME) nebulizers Mis See Rx Instructions .Route Rx Instructions: As directed
[2023-11-19] MEDS: ondansetron HCL 4 MG/2 ML VIAL IVPUSH ×2 (09:06→21:32)
[2023-11-19] MEDS: Pantoprazole Sodium 40 MG/10 ML VIAL 80 MG IVPUSH (09:07)
[2023-11-19] MEDS: iohexoL 350 MG/ML 75 ML INFUS..BTL 90 ML IV (10:17)
[2023-11-19] MEDS: 0.9 % Sodium Chloride 500 ML 999 ML IV (10:39)
[2023-11-19 11:56] VITALS: BP 138/93; PULSE 110; RESP 15; TEMP 36.6; O2SAT 94
[2023-11-19 13:36] LABS: Hematocrit 33.5 % (37.0-47.0); Hemoglobin 10.9 g/dl (12.0-16.0)
[2023-11-19] MEDS: HYDROmorphone HCl 2 MG TABLET PO (14:10)
--- NOTE | 2023-11-19 20:37 | P.HPHOSP_ITS ---
History of Present Illness Date of Service: 11/19/23 Chief Complaint: Dark stools This is a 52-year-old female with pertinent history of essential hypertension, mixed hyperlipidemia, insulin-dependent type 2 diabetes mellitus, asthma not on home oxygen, hypothyroidism, mood disorder, chronic pain syndrome on chronic opioids, hypogammaglobulinemia on IVIG who presents to the emergency department for evaluation of abdominal discomfort and dark colored stools. Patient was admitted on 09/26 for evaluation of acute GI bleed. She went upper endoscopy which showed large varices and required variceal banding x5. Patient was asked to abstain from NSAIDs. Patient states that since discharge (09/30/2023) patient has been having loose stools every day. It is associated with upper abdominal discomfort which is constant, nonradiating and worse with p.o. intake. About 24 hours prior to presentation, patient states she started noticing dark- colored stools. She had about 6-7 episodes in the last 24 hours. Also had 1 episode of nonbloody emesis. States she has been on iron supplementation since the last 2 months but the stool color changed one day prior to presentation. No fever, chills, chest discomfort, palpitations, changes in urinary habits. In the emergency department, imaging with pancolitis and HIDA scan with low gallbladder ejection fraction. Review of Systems 2 Constitutional: Constitutional: Reports fatigue, Reports malaise and Reports weakness Cardiovascular: Cardiovascular: Reports no additional cardiovascular complaints Respiratory: Respiratory: Reports no additional respiratory complaints Gastrointestinal: Gastrointestinal: Reports abdominal pain, Reports melena, Reports nausea and Reports vomiting Genitourinary: Genitourinary: Reports no additional female genitourinary complaints Neurologic: Reports weakness Endocrine: Endocrine: Reports fatigue [facility] Medical History Anemia Chronic restrictive lung disease Brugada syndrome Shortness of breath Encounter for care related to Port-a-Cath Tinea pedis Recurrent cellulitis of lower extremity CHARLES (obstructive sleep apnea) Hypogammaglobulinemia Asthma Cellulitis of both lower extremities Right hip pain Lumbar degenerative disc disease Benign essential hypertension Obesity (BMI 30-39.9) Mitochondrial myopathy Asthma Diabetes mellitus History of revision of total replacement of right hip joint (~12/2019) Acquired hypothyroidism Pain of both hip joints Pure hypercholesterolemia Hx of cataract HTN (hypertension) Osteopenia Hypothyroidism Osteoarthritis of hip Gastritis Family History Father Leukemia Mother Hypertension Diabetes Sister Alive and well Brother Pancreatic cancer Paternal Grandmother Stomach cancer Paternal Grandmother Throat cancer Surgical History History of removal of Port-a-Cath History of total right hip arthroplasty (~06/03/19) History of eye surgery (~09/2017) History of hip surgery Hx of foot surgery (~01/02/19) History of removal of cyst Hx of left knee surgery History of elbow surgery (~07/2016) Hx of thumb surgery Hx of appendectomy Hx of hysterectomy (~07/2011) Hx of bilateral breast reduction surgery Social History Household Members: Family Housing: Apartment Do you presently have visiting nurse or other home services: No Alcohol intake: former Comment: refused bed alarm Patient Tobacco Use Status: Never used Tobacco Smoked in Last 30 Days: No e-Cigarette/Vaping Use: Never Used Second Hand Smoke Exposure: No Use of substances other than those prescribed or required for medical reasons: No Advance Directives: Yes Advance Directives on File: Yes Advance Directives Date on File: 10/02/23 service: No Current occupational status: disabled Cognitive needs: No Hearing needs: No Vision needs: No Meds Allergies Allergy/AdvReac Type Severity Reaction Status Date / Time cephalexin Allergy Severe Difficulty Verified 10/13/23 11:50 Breathing latex [LATEX] Allergy Severe Difficulty Verified 10/13/23 11:50 Breathing levofloxacin [From LEVAQUIN] Allergy Severe SHORTNESS Verified 10/13/23 11:50 OF BREATH, RASH, rash morphine [MORPHINE] Allergy Severe RASH, Verified 10/13/23 11:50 asthma exacerbation, rash baclofen [BACLOFEN] Allergy Intermediate Rash Verified 10/13/23 11:50 celecoxib [Celebrex] Allergy Intermediate itching, Verified 10/13/23 11:50 rash, flushing prednisone [PREDNISONE] Allergy Intermediate RASH, Verified 10/13/23 11:50 asthma exacerbation, rash codeine Allergy Unknown Rash Verified 10/13/23 11:50 gluten [GLUTEN] Allergy Unknown UNKNOWN Verified 10/13/23 11:50 oxycodone Allergy Unknown rash Verified 10/13/23 11:50 ranitidine Allergy Unknown unknown Verified 10/13/23 11:50 roflumilast [Daliresp] Allergy Unknown rash Verified 10/13/23 11:50 tramadol [TRAMADOL] Allergy Unknown RASH,SHORTNESS Verified 10/13/23 11:50 OF BREATH AND HEADACHE, asthma exacerbation, rash celery Allergy Rash Verified 10/13/23 11:50 cyclobenzaprine Allergy Rash and Verified 10/13/23 11:50 [From Flexeril] asthma exacerbation environmental allergies Allergy Cleaning Verified 10/13/23 11:50 products cause asthma attack pineapple Allergy Rash Verified 10/13/23 11:50 strawberry Allergy Rash Verified 10/13/23 11:50 sulfamethoxazole AdvReac Intermediate vertigo Verified 10/13/23 11:50 [From Bactrim] trimethoprim [From Bactrim] AdvReac Intermediate vertigo Verified 10/13/23 11:50 diazepam [From Valium] AdvReac Cough Verified 10/13/23 11:50 Active Medications: Current Medications Piperacillin Sod/Tazobactam (Sod 4.5 gm/ Sodium Chloride) 100 mls @ 200 mls/hr IV Q6H FLORECITA Home Medications Medication Instructions Recorded Confirmed Last Taken Type ipratropium bromide 42 mcg (0.06 2 spray intranasal DAILY 03/11/21 10/13/23 Unknown History %) nasal spray immune glob,gamma(IgG) 5 40 g IV Q3W 07/09/21 10/13/23 3 Weeks Ago History xlhb-[id number]-[id number]-IgA 0 to 50 mcg/mL ~09/05/23 IV solution (Gammagard S-D (IgA < 1 mcg/mL)) benralizumab 30 mg/mL subcutaneous 30 mg subcut Q8W 10/06/22 10/13/23 8 Weeks Ago History syringe (Fasenra) ~08/01/23 pyridostigmine bromide 60 mg tablet 60 mg PO TID 01/02/23 10/13/23 01/02/23 08:00 History nebulizers 03/09/23 10/13/23 Unknown History clotrimazole 10 mg jacinta 10 mg mucous membrane TID PRN 08/28/23 10/13/23 Unknown History THRUSH cholecalciferol (vitamin D3) 50 100 mcg PO BEDTIME 09/26/23 10/13/23 Unknown History mcg (2,000 unit) capsule hydromorphone 2 mg tablet 2 mg PO BID pain 09/26/23 10/13/23 Unknown History loratadine 10 mg tablet 10 mg PO DAILY 09/26/23 10/13/23 Unknown History metformin 500 mg tablet,extended 1,000 mg PO BID@0900,1700 09/26/23 10/13/23 Unknown History release 24 hr Physical Exam 2 Vital Signs and Narrative: Vital Signs: Last Vital Signs Temp 97.8 F 11/19/23 11:56 Pulse 110 H 11/19/23 11:56 Resp 15 11/19/23 11:56 BP 138/93 H 11/19/23 11:56 Pulse Ox 94 11/19/23 11:56 O2 Del Method Room Air 11/19/23 11:56 BMI result Body Mass Index 35.8 Middle-aged female lying in bed in no distress Neck supple, no JVD Tachycardic with regular rhythm, S1-S2 heard Regular breath sounds bilaterally, no wheezing or crackles appreciated Abdomen soft nontender, no guarding, no rigidity Patient is awake, alert and oriented to self, place, time and person ; no focal motor deficit Psych: Normal mood No pedal edema Results Labs 11/19/23 13:31 11/19/23 08:35 Labs: Laboratory Results - last 24 hr 11/19/23 11/19/23 11/19/23 08:34 08:35 09:21 MCV 80.3 MCH 26.1 L MCHC 32.5 RDW 13.6 Plt Count 177 D MPV 11.0 Immature Gran % (Auto) 0.2 Neut % (Auto) 85.1 H Lymph % (Auto) 8.2 L [place] % (Auto) 6.4 Eos % (Auto) 0.0 Baso % (Auto) 0.1 Lymph # (Auto) 0.8 L [place] # (Auto) 0.6 Eos # (Auto) 0.0 Baso # (Auto) 0.0 Abs Immat Gran (auto) 0.02 Absolute Neuts (auto) 8.4 H Absolute Nucleated RBC 0.000 Nucleated RBC % (auto) 0.0 PT 12.4 INR 1.0 Anion Gap 16 Estim Creat Clear Calc 84.3 Estimated GFR > 60 Random Glucose 211 H Calcium 9.4 Total Bilirubin 1.2 H AST 33 H ALT 48 H Alkaline Phosphatase 114 Total Protein 7.5 Albumin 4.2 Urine Color Yellow Urine Appearance Cloudy Urine pH 8.5 Ur Specific [place] 1.020 Urine Protein Trace Urine Glucose (UA) 100 H Urine Ketones Trace Urine Blood Negative Urine Nitrite Negative Ur Leukocyte Esterase Small (1+) H Urine RBC 0-2 Urine WBC 6-10 H Ur Squamous Epith Cells 3-5 Urine Bacteria Trace Hyaline Casts 0-2 Stool Occult Blood POSITIVE COVID-19 (JODY) Negative COVID-19 Clin Com See Note Blood Type A Positive Antibody Screen NEGATIVE Imaging Radiologist's Impressions: Impressions Abdomen/Pelvis CT 11/19/23 11:14 IMPRESSION: * Limited evaluation for GI bleed due to difficulty the with IV contrast injection. Pancolitis. Mild diverticulosis. Probable surgical biopsy clip in the body of the stomach. Abdomen Ultrasound 11/19/23 12:54 IMPRESSION: No gallstones. Distended gallbladder with slightly thickened echogenic gallbladder wall and positive sonographic Peng's sign. Appearance is questionable for acalculus cholecystitis. Follow-up HIDA scan may be helpful. Hepatobiliary Scan Nuclear Medicine 11/19/23 19:30 IMPRESSION: Normal filling of the gallbladder with no evidence for obstruction. There is prompt spillage of activity through the common bile duct into the small bowel. Gallbladder ejection fraction was measured at 13% at 30 minutes time which is considered low. Assessment and Plan (1) Acute GI bleeding: Status: Acute Plan This is a 52-year-old female with pertinent history of essential hypertension, mixed hyperlipidemia, insulin-dependent type 2 diabetes mellitus, asthma not on home oxygen, hypothyroidism, mood disorder, chronic pain syndrome on chronic opioids, hypogammaglobulinemia on IVIG who presents to the emergency department for evaluation of abdominal discomfort and dark colored stools. #. Acute GI bleed: Will admit patient with cardiac monitoring and initiating IV Protonix. Consulted Gastroenterology, appreciate assistance. Imaging with pancolitis, initiating empiric antibiotics. Closely monitor H&H. Stool studies including C diff pending #. Low ejection fraction of gallbladder, ?functional gallbladder disorder. Consulting general surgery, appreciate assistance #. Essential hypertension: Hold losartan and carvedilol in the setting of GI bleed #. Insulin-dependent type 2 diabetes mellitus with hyperglycemia: Initiating Accu-Cheks with sliding scale insulin #. Chronic pain syndrome on chronic opioids: Change Dilaudid from p.o. to IV #. Hypothyroidism: On Synthroid #. Mixed hyperlipidemia: On statin Med rec pending DVT prophylaxis: Mechanical Full code Admit as inpatient and will require two night minimum hospital stay for evaluation of acute GI bleed, close monitoring of H&H, hemodynamic monitoring (as above), which is not possible in a lesser acute setting. Specialist consult pending Quality Stroke Does the patient have a stroke diagnosis?: No VTE Prior VTE?: No VTE Risk Level:: Medical - moderate - high VTE Device Contraindication: N/A - Device Ordered VTE Drug Contraindication: Treatment Not Indicated
[2023-11-19 20:48] VITALS: BP 140/79; PULSE 112; RESP 16; TEMP 37.1; O2SAT 96
[2023-11-19 20:57] VITALS: BP 141/77; PULSE 108
[2023-11-19 20:58] VITALS: BP 127/88; BP 146/86; PULSE 116; PULSE 124
--- NOTE | 2023-11-19 21:00 | MHC.EDTECH ---
This tech took over care of patient at 1900,hourly rounds and vitals completed, POC taken and is 152,Lulú RN aware. Ortho Static vitals completed per providers order. Belonging list completed and copy placed in chart.
[2023-11-19 21:08] LABS: Glucose, Whole Blood 152 mg/dL (60-115)
[2023-11-19] MEDS: HYDROmorphone HCl 2 MG/ML VIAL IVPUSH (21:32)
[2023-11-19] MEDS: Piperacillin Sodium/Tazobactam 4.5 GM in 0.9 % Sodium Chloride 100 ML IV (21:32)
--- NOTE | 2023-11-19 21:39 | PC.NURSE ---
patient has not had a bowel movement since this morning.
[2023-11-19] MEDS: Lactated Ringers 1,000 ML 100 ML IVCONT (21:49)
[2023-11-19 23:27] VITALS: BP 113/68; PULSE 98; RESP 20; TEMP 37; O2SAT 96
--- NOTE | 2023-11-19 23:29 | MHC.EDTECH ---
Hourly rounds and vitals completed,patient ambulated to bathroom with a steady gait,call acharya in reach
[2023-11-20 03:09] VITALS: BP 138/73; PULSE 90; RESP 20; TEMP 36.8; O2SAT 96
--- NOTE | 2023-11-20 03:12 | MHC.EDTECH ---
Hourly rounds and vitals completed,POC taken per order and is 160,Esperanza ANNE aware
[2023-11-20 03:18] LABS: Glucose, Whole Blood 160 mg/dL (60-115)
[2023-11-20] MEDS: Piperacillin Sodium/Tazobactam 4.5 GM in 0.9 % Sodium Chloride 100 ML IV ×4 (04:32→22:27)
[2023-11-20] MEDS: 0.9 % Sodium Chloride Flush 3 ML SYRINGE IVFLUSH ×3 (04:33→22:27)
[2023-11-20] MEDS: HYDROmorphone HCl 2 MG/ML VIAL IVPUSH ×2 (04:49→14:30)
[2023-11-20] MEDS: ondansetron HCL 4 MG/2 ML VIAL IVPUSH ×2 (04:50→14:30)
[2023-11-20 05:07] LABS: MANUAL DIFF FLAG NO
[2023-11-20 05:08] LABS: Hematocrit 30.9 % (37.0-47.0); Hemoglobin 9.8 g/dl (12.0-16.0); Imm Gran Abs Auto 0.01 X10*3/uL (0.00-0.03); Imm Gran Pct Auto 0.2 % (0.0-0.4); Lymphocytes Absolute Auto 1.1 X10*3/uL (1.2-4.9); Lymphocytes Percent Auto 24.4 % (20-40); Mean Corpuscular HGB Conc 31.7 g/dl (31.0-35.0); Mean Corpuscular Hemoglobin 25.5 pg (27.0-33.0); Mean Corpuscular Volume 80.5 fL (80.0-98.0); Mean Platelet Volume 10.8 fL (9.4-12.3); Monocytes Absolute Auto 0.5 X10*3/uL (0.1-1.2); Monocytes Percent Auto 10.8 % (2-11); Neutrophils Absolute Auto 2.9 x10*3/uL (2.0-8.3); Neutrophils Percent Auto 64.6 % (45-73); Platelet Count 117 X10*3/uL (160-400); Red Blood Count 3.84 X10*6/uL (4.20-5.50); Red Cell Distribution Width 13.9 % (11.0-16.0); White Blood Count 4.4 X10*3/uL (4.8-10.8)
[2023-11-20 05:23] LABS: Anion Gap 16 (12-20); Blood Urea Nitrogen 12 mg/dL (9-16); Calcium 8.7 mg/dL (8.4-10.2); Carbon Dioxide 21 mmol/L (22-29); Chloride 107 mmol/L (96-108); Creatinine Clr Calc Pharmacy 89.6; Estimated Glomerular Filt Rate > 60; Glucose Random 146 mg/dL (60-115); Potassium 3.5 mmol/L (3.3-5.1); Sodium 140 mmol/L (135-145)
--- NOTE | 2023-11-20 06:06 | PC.NURSE ---
Pt is A & O X 4, pleasant and cooperative. Appears uncomfortable sitting upright on stretcher and verbalizes ongoing pain. Presently NPO, but has water at the bedside to wet mouth and lips. Verbalizes her needs and call light is within reach. Pt is admitted and waiting for a bed assignment.
[2023-11-20 06:19] VITALS: BP 144/79; PULSE 90; RESP 18; TEMP 36.9; O2SAT 96
--- NOTE | 2023-11-20 06:20 | MHC.EDTECH ---
Hourly rounds and vitals completed,patient is tearful states she is nauseous,RN aware patient ambulated to bathroom with a steady gait,call acharya in reach
--- NOTE | 2023-11-20 06:59 | PC.NURSE ---
Pt is a 52 y/o female who presents for evaluation of middle/upper abd pain, diarrhea, and vomiting. Pt reports being here counts include 234 beds at the [facility] 5 weeks ago for esophageal varicies and stomach ulcer and hasn't been right since. Pain is described as dull and rated 10/10. +dark stools, no constipation. Pt also endorses a headache since returning from [place]. Denies recent illness, fever, problems with voiding, recent trauma, chest pain, and shortness of breath. Was tolerating food consumption in small quantities and tolerates fluids well, able to keep them down. No known contact with anyone sick. Has 20G IV access in right forearm, line is patent and flushes well without pain or signs of infiltration. Call light is within reach and pt verbalizes needs. Pt is admitted and pending bed assignment.
[2023-11-20] MEDS: Pantoprazole Sodium 40 MG/10 ML VIAL IVPUSH ×2 (07:32→16:46)
[2023-11-20 08:27] LABS: Glucose, Whole Blood 146 mg/dL (60-115)
--- NOTE | 2023-11-20 08:35 | PHA.MEDREC ---
Pharmacy Consult ? Medication Reconciliation Pharmacy has completed the medication reconciliation. Confirmed medications with patient. Reports that she is due for her Fasenra (benralizumab) on 11/29/22. Also reports that she only takes a second dose of carvedilol according to BP in the afternoon.
--- NOTE | 2023-11-20 08:49 | MHC.CM.PN ---
PT REPORTS SHE LIVES AT HOME WITH HER GRANDCHILDREN AND THEIR MOTHER SHE REPORTS BEING INDEPENDENT WITH CARE AND HAVING NO SERVICES PT STATES SHE HAS CRUTCHES SHE USES PRN, WELL A SHOWER CHAIR AND TOILET SEAT RISER HCP AND MOLST ON FILE PCP: SYL ESTRADA IMM DELIVERED DCP: HOME NO SERVICES VIA PRIVATE TRANSPORT
[2023-11-20 09:02] LABS: Glucose, Whole Blood 190 mg/dL (60-115)
[2023-11-20 09:05] VITALS: BP 137/84; PULSE 81; RESP 16; TEMP 36.6; O2SAT 97
--- NOTE | 2023-11-20 09:15 | PC.NURSE ---
pt tearful and upset, reports severe abd pain will not go away. pt refuses any PRN pain med at this time, reports she wants to wait longer. pt medicated per MAR.
--- NOTE | 2023-11-20 09:26 | PM.GICN ---
History of Present Illness Data of Consult Service Date: 11/19/23 Requesting physician: Carolina Dumont Primary Care Provider: Cassius Strong MD [facility] Reason for consult: ? GIB This is a 52-year-old female with past medical history of non cirrhotic portal hypertension with history of variceal bleeding, who presented to the hospital for unrelenting abdominal pain. Patient was examined in the emergency room, and states that for the past few months has frequent abdominal pain which is diffuse, associated with nausea and decreased appetite. Not associated with change in bowel movements this time. Patient is established with Gastroenterology for known cirrhotic portal hypertension and had a recent admission in [facility] for anemia and melena. Upper endoscopy September 2023 with EVBL. Also had multiple gastric polyps. Path: Hyperplastic polyp without dysplasia. No H pylori. Currently does not report any ongoing NSAID use, no etOH. Vitals are stable. Labs show H/H improved from before. LFTs elevated. States stool is dark but has been since she started PO iron and has not been any different. Does not think its black or maroon. No ultrasounds in the system to review GB. CT ABd/pel from this admission pending. Pt also reports having an episode of acute pancreatitis 8 years ago in the absence of etOH use. Review of Systems Review of Systems: Yes all other systems are reviewed and are negative PMFSH Past Medical History Medical History Anemia Chronic restrictive lung disease Brugada syndrome Shortness of breath Encounter for care related to Port-a-Cath Tinea pedis Recurrent cellulitis of lower extremity CHARLES (obstructive sleep apnea) Hypogammaglobulinemia Asthma Cellulitis of both lower extremities Right hip pain Lumbar degenerative disc disease Benign essential hypertension Obesity (BMI 30-39.9) Mitochondrial myopathy Asthma Diabetes mellitus History of revision of total replacement of right hip joint (~12/2019) Acquired hypothyroidism Pain of both hip joints Pure hypercholesterolemia Hx of cataract HTN (hypertension) Osteopenia Hypothyroidism Osteoarthritis of hip Gastritis Family History Family History Father Leukemia Mother Hypertension Diabetes Sister Alive and well Brother Pancreatic cancer Paternal Grandmother Stomach cancer Paternal Grandmother Throat cancer Surgical History Surgical History History of removal of Port-a-Cath History of total right hip arthroplasty (~06/03/19) History of eye surgery (~09/2017) History of hip surgery Hx of foot surgery (~01/02/19) History of removal of cyst Hx of left knee surgery History of elbow surgery (~07/2016) Hx of thumb surgery Hx of appendectomy Hx of hysterectomy (~07/2011) Hx of bilateral breast reduction surgery Social History Social History Household Members: Family Housing: Apartment Do you presently have visiting nurse or other home services: No Alcohol intake: former Comment: refused bed alarm Patient Tobacco Use Status: Never used Tobacco Smoked in Last 30 Days: No e-Cigarette/Vaping Use: Never Used Second Hand Smoke Exposure: No Use of substances other than those prescribed or required for medical reasons: No Advance Directives: Yes Advance Directives on File: Yes Advance Directives Date on File: 10/02/23 service: No Current occupational status: disabled Cognitive needs: No Hearing needs: No Vision needs: No Meds Allergies Allergy/AdvReac Type Severity Reaction Status Date / Time cephalexin Allergy Severe Difficulty Verified 10/13/23 11:50 Breathing latex [LATEX] Allergy Severe Difficulty Verified 10/13/23 11:50 Breathing levofloxacin [From LEVAQUIN] Allergy Severe SHORTNESS Verified 10/13/23 11:50 OF BREATH, RASH, rash morphine [MORPHINE] Allergy Severe RASH, Verified 10/13/23 11:50 asthma exacerbation, rash baclofen [BACLOFEN] Allergy Intermediate Rash Verified 10/13/23 11:50 celecoxib [Celebrex] Allergy Intermediate itching, Verified 10/13/23 11:50 rash, flushing prednisone [PREDNISONE] Allergy Intermediate RASH, Verified 10/13/23 11:50 asthma exacerbation, rash codeine Allergy Unknown Rash Verified 10/13/23 11:50 gluten [GLUTEN] Allergy Unknown UNKNOWN Verified 10/13/23 11:50 oxycodone Allergy Unknown rash Verified 10/13/23 11:50 ranitidine Allergy Unknown unknown Verified 10/13/23 11:50 roflumilast [Daliresp] Allergy Unknown rash Verified 10/13/23 11:50 tramadol [TRAMADOL] Allergy Unknown RASH,SHORTNESS Verified 10/13/23 11:50 OF BREATH AND HEADACHE, asthma exacerbation, rash celery Allergy Rash Verified 10/13/23 11:50 cyclobenzaprine Allergy Rash and Verified 10/13/23 11:50 [From Flexeril] asthma exacerbation environmental allergies Allergy Cleaning Verified 10/13/23 11:50 products cause asthma attack pineapple Allergy Rash Verified 10/13/23 11:50 strawberry Allergy Rash Verified 10/13/23 11:50 sulfamethoxazole AdvReac Intermediate vertigo Verified 10/13/23 11:50 [From Bactrim] trimethoprim [From Bactrim] AdvReac Intermediate vertigo Verified 10/13/23 11:50 diazepam [From Valium] AdvReac Cough Verified 10/13/23 11:50 Active Medications: Current Medications Acetaminophen (Acetaminophen 325 Mg Tablet) 650 mg PO Q6H PRN PRN Reason: Pain, Mild (Pain Scale 1-3) Acetaminophen (Acetaminophen Supp 650 Mg Supp.Rect) 650 mg SC Q6H PRN PRN Reason: Pain, Mild (Pain Scale 1-3) Dextrose (Dextrose 50 % 25 Gm/50 Ml Syringe) 25 gm IVPUSH Q15M PRN; Protocol PRN Reason: per Hypoglycemia Standing Ord. Glucose (Glucose Gel 15 Gm Gel..Gram.) 15 gm PO Q15M PRN; Protocol PRN Reason: per Hypoglycemia Standing Ord. Hydromorphone HCl (Hydromorphone Hcl 2 Mg/Ml Vial) 2 mg IVPUSH Q3H PRN; Protocol PRN Reason: Pain, Severe (Pain Scale 7-10) Piperacillin Sod/Tazobactam (Sod 4.5 gm/ Sodium Chloride) 100 mls @ 200 mls/hr IV Q6H [facility] Last Infusion: 11/20/23 05:19 Dose: Infused Insulin Human Lispro (Insulin Lispro 100 Unit/Ml 3 Ml Vial) 0 unit SUBCUT Q6H [facility]; Protocol Last Admin: 11/20/23 04:31 Dose: Not Given Melatonin (Melatonin 3 Mg Tablet) 6 mg PO BEDTIME PRN PRN Reason: Insomnia Ondansetron HCl (Ondansetron Hcl 4 Mg/2 Ml Vial) 4 mg IVPUSH Q8H PRN PRN Reason: Nausea and Vomiting Last Admin: 11/20/23 04:50 Dose: 4 mg Pantoprazole Sodium (Pantoprazole Sodium 40 Mg/10 Ml Vial) 40 mg IVPUSH BID@0630,1630 [facility] Last Admin: 11/20/23 07:32 Dose: 40 mg Sodium Chloride (0.9 % Sodium Chloride Flush 3 Ml Syringe) 3 ml IVFLUSH QSHIFT [facility] Last Admin: 11/20/23 07:32 Dose: 3 ml Home Medications Medication Instructions Recorded Confirmed Last Taken Type ipratropium bromide 42 mcg (0.06 2 spray intranasal DAILY 03/11/21 11/20/23 11/18/23 History %) nasal spray immune glob,gamma(IgG) 5 40 g IV Q3W 07/09/21 10/13/23 3 Weeks Ago History fvnz-apw-hqks-IgA 0 to 50 mcg/mL ~09/05/23 IV solution (Gammagard S-D (IgA < 1 mcg/mL)) benralizumab 30 mg/mL subcutaneous 30 mg subcut Q8W 10/06/22 11/20/23 10/04/23 History syringe (Fasenra) pyridostigmine bromide 60 mg tablet 60 mg PO TID 01/02/23 11/20/23 11/18/23 History nebulizers 03/09/23 10/13/23 Unknown History clotrimazole 10 mg jacinta 10 mg mucous membrane TID PRN 08/28/23 11/20/23 11/18/23 History THRUSH cholecalciferol (vitamin D3) 50 100 mcg PO BEDTIME 09/26/23 11/20/23 11/18/23 History mcg (2,000 unit) capsule loratadine 10 mg tablet 10 mg PO DAILY 09/26/23 11/20/23 11/18/23 History metformin 500 mg tablet,extended 1,000 mg PO BID@0900,1700 09/26/23 11/20/23 11/18/23 History release 24 hr bismuth subsalicylate 262 mg 2 mg PO DAILY PRN Diarrhea 11/20/23 11/20/23 Unknown History tablet (Pepto-Bismol) carvedilol 6.25 mg tablet 6.25 mg PO DAILY 11/20/23 11/20/23 11/18/23 History carvedilol 6.25 mg tablet 6.25 mg PO DAILY@1500 PRN high 11/20/23 11/20/23 11/18/23 History blood pressure Physical Exam Vital Signs: Vital Signs: Vital Signs Temp Pulse Resp BP Pulse Ox O2 Del Method 99.3 F 122 H 20 149/95 H 94 Room Air 11/19/23 08:14 11/19/23 08:14 11/19/23 08:14 11/19/23 08:14 11/19/23 08:14 11/19/23 08:14 Gen appear: NAD HEENT: nonicteric, no cervical lymphadenopathy Chest: CTA CVS: Regular S1/S2 Abd: soft, tender in epigsatrium and RUQ, nondistended, bowel sounds + Ext: no peripheral edema Neuro: A/Ox3, noted to move all extremities spontaneously Psych: interacting appropriately Results Labs 11/20/23 04:57 11/20/23 04:57 Labs: Short CBC 11/19/23 11/20/23 Range/Units 13:31 04:57 WBC 4.4 L (4.8-10.8) X10*3/uL Hgb 10.9 L 9.8 L (12.0-16.0) g/dl Hct 33.5 L 30.9 L (37.0-47.0) % Plt Count 117 L D (160-400) X10*3/uL BMP 11/20/23 04:57 Sodium 140 Potassium 3.5 Chloride 107 Carbon Dioxide 21 L BUN 12 Creatinine 0.81 Calcium 8.7 D Microbiology Microbiology Results: Microbiology 11/19/23 Unknown Urine clean catch - Urine ray top Urine Culture - Final No growth. Assessment and Plan (1) Right upper quadrant pain: Status: Acute (2) GI bleed: Status: Acute (3) Elevated LFTs: Status: Acute Plan Will need RUQ ultrasound for evaluation of chronic RUQ pain and elevated LFTs to r/o symptomatic cholelithiasis. In terms of GI bleed, no s/sx at present to suspect ongoing clinically significant bleeding but would recommend monitoring H/H. Pt is already scheduled for EGD as outpatient 11/21 if gets discharged before then. Plan: - Follow results of CT Abd/pel ordered by ER provider - RUQ US - Trend LFTs - Repeat H/H to ensure stability - Can keep protonix as IV for now, but can switch back to PO if H/H remains stable i.e confirms no overt GI bleeding - Outpatient EGD for variceal surveillance booked for 2/6. Please note this is a late entry. Pt was seen in ER at 11am on 11/19/23 and pertinent recommendations were tigered to the ER provider. Procedures Date of Service Date of Service: 11/20/23
--- NOTE | 2023-11-20 10:18 | PC.NURSE ---
Resting comfortably, breathing even and unlabored, arousable to verbal stimuli
[2023-11-20 10:55] LABS: Lactic Acid 0.8 mmol/L (0.5-2.0)
--- NOTE | 2023-11-20 10:56 | P.PNIM_ITS ---
Subjective Subjective Date of Service: 11/20/23 Review of Systems Follow-up abdominal pain and nausea Sitting on the side of the bed in the ER crying due to the pain Physical Exam 2 Vital Signs: Vital Signs: Last Vital Signs Temp 98 F 11/20/23 09:05 Pulse 81 11/20/23 09:05 Resp 16 11/20/23 09:05 BP 137/84 11/20/23 09:05 Pulse Ox 97 11/20/23 09:05 O2 Del Method Room Air 11/20/23 09:05 BMI result Body Mass Index 35.8 Appearing in no acute distress lung sounds are clear to auscultation heart regular rate rhythm, clear S1, S2 positive bowel sounds, abdomen is soft, tender to epigastrium neuro patient is alert x3, no focal deficits Objective Data Active Medications Acetaminophen (Acetaminophen 325 Mg Tablet) 650 mg PO Q6H PRN PRN Reason: Pain, Mild (Pain Scale 1-3) Acetaminophen (Acetaminophen Supp 650 Mg Supp.Rect) 650 mg IN Q6H PRN PRN Reason: Pain, Mild (Pain Scale 1-3) Dextrose (Dextrose 50 % 25 Gm/50 Ml Syringe) 25 gm IVPUSH Q15M PRN; Protocol PRN Reason: per Hypoglycemia Standing Ord. Glucose (Glucose Gel 15 Gm Gel..Gram.) 15 gm PO Q15M PRN; Protocol PRN Reason: per Hypoglycemia Standing Ord. Hydromorphone HCl (Hydromorphone Hcl 2 Mg/Ml Vial) 2 mg IVPUSH Q3H PRN; Protocol PRN Reason: Pain, Severe (Pain Scale 7-10) Piperacillin Sod/Tazobactam (Sod 4.5 gm/ Sodium Chloride) 100 mls @ 200 mls/hr IV Q6H [facility] Last Infusion: 11/20/23 05:19 Dose: Infused Documented By: VICK Insulin Human Lispro (Insulin Lispro 100 Unit/Ml 3 Ml Vial) 0 unit SUBCUT Q6H [facility]; Protocol Last Admin: 11/20/23 10:47 Dose: Not Given Documented By: JACQUES Non-Admin Reason: NPO Melatonin (Melatonin 3 Mg Tablet) 6 mg PO BEDTIME PRN PRN Reason: Insomnia Ondansetron HCl (Ondansetron Hcl 4 Mg/2 Ml Vial) 4 mg IVPUSH Q8H PRN PRN Reason: Nausea and Vomiting Last Admin: 11/20/23 04:50 Dose: 4 mg Documented By: LARS Pantoprazole Sodium (Pantoprazole Sodium 40 Mg/10 Ml Vial) 40 mg IVPUSH BID@0630,1630 [facility] Last Admin: 11/20/23 07:32 Dose: 40 mg Documented By: JACQUES Sodium Chloride (0.9 % Sodium Chloride Flush 3 Ml Syringe) 3 ml IVFLUSH QSHIFT [facility] Last Admin: 11/20/23 07:32 Dose: 3 ml Documented By: JACQUES Labs 11/20/23 04:57 11/20/23 04:57 Labs: Laboratory Results - last 24 hr 11/19/23 11/20/23 11/20/23 20:55 03:08 04:31 MCV MCH MCHC RDW Plt Count MPV Immature Gran % (Auto) Neut % (Auto) Lymph % (Auto) [place] % (Auto) Eos % (Auto) Baso % (Auto) Lymph # (Auto) [place] # (Auto) Eos # (Auto) Baso # (Auto) Abs Immat Gran (auto) Absolute Neuts (auto) Absolute Nucleated RBC Nucleated RBC % (auto) Anion Gap Estim Creat Clear Calc Estimated GFR POC Glucose 152 H 160 H 146 H Random Glucose Lactic Acid Calcium 11/20/23 11/20/23 11/20/23 04:57 08:58 10:37 MCV 80.5 MCH 25.5 L MCHC 31.7 RDW 13.9 Plt Count 117 L D MPV 10.8 Immature Gran % (Auto) 0.2 Neut % (Auto) 64.6 Lymph % (Auto) 24.4 [place] % (Auto) 10.8 Eos % (Auto) 0.0 Baso % (Auto) 0.0 Lymph # (Auto) 1.1 L [place] # (Auto) 0.5 Eos # (Auto) 0.0 Baso # (Auto) 0.0 Abs Immat Gran (auto) 0.01 Absolute Neuts (auto) 2.9 Absolute Nucleated RBC 0.000 Nucleated RBC % (auto) 0.0 Anion Gap 16 Estim Creat Clear Calc 89.6 Estimated GFR > 60 POC Glucose 190 H Random Glucose 146 H Lactic Acid 0.8 Calcium 8.7 D Microbiology Microbiology Results: Microbiology 11/19/23 Unknown Urine Culture - Final Urine clean catch - Urine ray top No growth. Assessment and Plan (1) Right upper quadrant pain: Status: Acute Plan 52-year-old female with pertinent history of essential hypertension, mixed hyperlipidemia, insulin-dependent type 2 diabetes mellitus, asthma not on home oxygen, hypothyroidism, mood disorder, chronic pain syndrome on chronic opioids, hypogammaglobulinemia on IVIG who presents to the emergency department for evaluation of abdominal discomfort and dark colored stools. Acute GI bleed IV Protonix. Imaging with pancolitis, continue zosyn Stool studies including C diff pending, hx of chronic diarrhea Consulted Gastroenterology>plan for EGD and colo tomorrow, prep tonight Low ejection fraction of gallbladder, ?functional gallbladder disorder. Consulting general surgery Essential hypertension Hold losartan and carvedilol in the setting of GI bleed Insulin-dependent type 2 diabetes mellitus with hyperglycemia Initiating Accu-Cheks with sliding scale insulin Chronic pain syndrome on chronic opioids Change Dilaudid from p.o. to IV Hypothyroidism On Synthroid Mixed hyperlipidemia On statin DVT prophylaxis: Mechanical Attending Dr. Weeks Full code continue hospital stay for evaluation of acute GI bleed, close monitoring of H&H, hemodynamic monitoring (as above), which is not possible in a lesser acute setting. Specialist consult pending Quality Stroke Does the patient have a stroke diagnosis?: No VTE Prior VTE?: No VTE Risk Level:: Medical - moderate - high VTE Device Contraindication: N/A - Device Ordered VTE Drug Contraindication: Treatment Not Indicated
--- NOTE | 2023-11-20 11:05 | PC.NURSE ---
provider notified about no orders in for cultures, antibiotics late due to waiting for cultures to be drawn. phlebotomy at bedside, cultures not collected when RN contacted lab. Phlebotomy at the bedside again, currently drawing cultures.
--- NOTE | 2023-11-20 13:39 | P.PNGI_ITS ---
Subjective Subjective Date of Service: 11/20/23 Interval History: Admitted under medicine but remains physically in ER. Cont wiht abd pain. Does not report diarrhea currentyl but has soft stools often at home. Critical Care Time (minutes): 0 Physical Exam 2 Vital Signs: Vital Signs: Last Vital Signs Temp 98 F 11/20/23 09:05 Pulse 81 11/20/23 09:05 Resp 16 11/20/23 09:05 BP 137/84 11/20/23 09:05 Pulse Ox 97 11/20/23 09:05 O2 Del Method Room Air 11/20/23 09:05 BMI result Body Mass Index 35.8 gen appear: NAD abd: soft, nondistended, mildly tender in epigastrium, no guarding Objective Data Labs 11/20/23 04:57 11/20/23 04:57 Labs: Laboratory Results - last 24 hr 11/19/23 11/20/23 11/20/23 20:55 03:08 04:31 WBC RBC Hgb Hct MCV MCH MCHC RDW Plt Count MPV Immature Gran % (Auto) Neut % (Auto) Lymph % (Auto) [place] % (Auto) Eos % (Auto) Baso % (Auto) Lymph # (Auto) [place] # (Auto) Eos # (Auto) Baso # (Auto) Abs Immat Gran (auto) Absolute Neuts (auto) Absolute Nucleated RBC Nucleated RBC % (auto) Sodium Potassium Chloride Carbon Dioxide Anion Gap BUN Creatinine Estim Creat Clear Calc Estimated GFR POC Glucose 152 H 160 H 146 H Random Glucose Lactic Acid Calcium 11/20/23 11/20/23 11/20/23 04:57 08:58 10:37 WBC 4.4 L RBC 3.84 L Hgb 9.8 L Hct 30.9 L MCV 80.5 MCH 25.5 L MCHC 31.7 RDW 13.9 Plt Count 117 L D MPV 10.8 Immature Gran % (Auto) 0.2 Neut % (Auto) 64.6 Lymph % (Auto) 24.4 [place] % (Auto) 10.8 Eos % (Auto) 0.0 Baso % (Auto) 0.0 Lymph # (Auto) 1.1 L [place] # (Auto) 0.5 Eos # (Auto) 0.0 Baso # (Auto) 0.0 Abs Immat Gran (auto) 0.01 Absolute Neuts (auto) 2.9 Absolute Nucleated RBC 0.000 Nucleated RBC % (auto) 0.0 Sodium 140 Potassium 3.5 Chloride 107 Carbon Dioxide 21 L Anion Gap 16 BUN 12 Creatinine 0.81 Estim Creat Clear Calc 89.6 Estimated GFR > 60 POC Glucose 190 H Random Glucose 146 H Lactic Acid 0.[address]cium [address] scan - abdomen: Attestation: I personally reviewed and interpreted this imaging study as follows: My impression: pancolitis HIDA: Radiologist's impression: LOW GB EF Microbiology Microbiology Results: Microbiology 11/19/23 Unknown Urine clean catch - Urine ray top Urine Culture - Final No growth. Procedures Date of Service Date of Service: 11/20/23 Progress Note: A&P Assessment and plan (1) Elevated LFTs: Status: Acute (2) Right upper quadrant pain: Status: Acute (3) Colitis: Status: Acute Plan Ddx for colitis includes inflammatory, infectious or less likely ischemic. Will add on a colonoscopy to the EGD given pt reports intermittent but longstanding diarrhea. For RUQ pain, could possibly be due to biliary dyskinesia. Recommend surgical consultation. Plan: - Add colo to the EGD scheduled for tmrw - clear liquid diet today - NPO after midnight - since patient reports previous history of inadequate prep, we will give her 6 L of PEG instead of 4 - surgical consultation as above Time Spent With Patient Time: Total time managing care of this patient today ____ minutes. Quality Stroke Does the patient have a stroke diagnosis?: No VTE Prior VTE?: No VTE Risk Level:: Medical - moderate - high VTE Device Contraindication: N/A - Device Ordered VTE Drug Contraindication: Treatment Not Indicated
--- NOTE | 2023-11-20 15:19 | PC.NURSE ---
pts bed changed to hospital bed, pt reports feeling more comfortable. pt reports pain is 5/10 in her stomach now, improvement after pain meds. no new complaints.
[2023-11-20] MEDS: pyRIDostigmine bromide 60 MG TABLET PO ×2 (16:45→22:26)
[2023-11-20 18:08] LABS: Glucose, Whole Blood 175 mg/dL (60-115)
[2023-11-20 18:45] VITALS: BP 171/78; PULSE 88; RESP 24; TEMP 36.4; O2SAT 98
[2023-11-20 20:07] LABS: Glucose, Whole Blood 153 mg/dL (60-115)
[2023-11-20] MEDS: Prochlorperazine Edisylate 10 MG/2 ML VIAL 5 MG IVPUSH (20:14)
[2023-11-20] MEDS: PEG 3350/Na Sulf,Bicarb,Cl/KCL 4,000 ML SOLN.RECON 4000 ML PO (20:17)
[2023-11-20] MEDS: Losartan Potassium 25 MG TABLET PO (22:26)
[2023-11-20] MEDS: Montelukast Sodium 10 MG TABLET PO (22:27)
[2023-11-20] MEDS: Omeprazole 40 MG CAPSULE.DR PO (22:27)
[2023-11-20 22:30] VITALS: BMI 36.9
[2023-11-20 22:57] VITALS: BP 137/71; PULSE 56; RESP 18; TEMP 36.2; O2SAT 95
[2023-11-20 23:58] LABS: Glucose, Whole Blood 140 mg/dL (60-115)
[2023-11-21] VITALS (13 sets, daily range): BP systolic 133–162; BP diastolic 66–88; PULSE 53–67; RESP 14–22; TEMP 36.1–37.1; O2SAT 94–100
[2023-11-21 03:36] LABS: Glucose, Whole Blood 127 mg/dL (60-115)
[2023-11-21] MEDS: Piperacillin Sodium/Tazobactam 4.5 GM in 0.9 % Sodium Chloride 100 ML IV ×4 (03:36→20:29)
[2023-11-21] MEDS: Pantoprazole Sodium 40 MG/10 ML VIAL IVPUSH ×2 (05:35→16:49)
--- NOTE | 2023-11-21 06:17 | PC.NURSE ---
Pt AOx4. Independent in the room. Educated as to the reason for NPO @ midnight and pt understood. Also educated about drinking prescribed bowel prep. Pt stated several times that she will try to drink some but pt was nauseated and advised the MD that she wouldn't be able to. Confirmed the compazine had helped along with the zofran and pt agreed and then said 'but my stomach still hurts and this stuff doesn't work for me. i've done this 3 times and it never makes me go and I told the MD that'. Pt went on to say that endo/colo that is scheduled today had been scheduled as outpatient and that the MD is 'trying to keep it scheduled as is' while she's here. Pt aware of the time her procedure is and as of 0620am has only had 1 cup to drink. Will share information with day RN. Pt resting comfortably with call acharya in place.
[2023-11-21 07:26] LABS: Hematocrit 30.1 % (37.0-47.0); Hemoglobin 9.6 g/dl (12.0-16.0); Mean Corpuscular HGB Conc 31.9 g/dl (31.0-35.0); Mean Corpuscular Hemoglobin 25.8 pg (27.0-33.0); Mean Corpuscular Volume 80.9 fL (80.0-98.0); Mean Platelet Volume 11.6 fL (9.4-12.3); Platelet Count 109 X10*3/uL (160-400); Red Blood Count 3.72 X10*6/uL (4.20-5.50); Red Cell Distribution Width 13.7 % (11.0-16.0); White Blood Count 4.6 X10*3/uL (4.8-10.8)
[2023-11-21 07:45] LABS: Anion Gap 14 (12-20); Blood Urea Nitrogen 10 mg/dL (9-16); Calcium 8.8 mg/dL (8.4-10.2); Carbon Dioxide 25 mmol/L (22-29); Chloride 107 mmol/L (96-108); Estimated Glomerular Filt Rate > 60; Glucose Random 138 mg/dL (60-115); Sodium 143 mmol/L (135-145)
[2023-11-21] MEDS: 0.9 % Sodium Chloride Flush 3 ML SYRINGE IVFLUSH ×2 (08:50→20:36)
[2023-11-21] MEDS: HYDROmorphone HCl 2 MG/ML VIAL IVPUSH (09:01)
[2023-11-21] MEDS: carvediloL 6.25 MG TABLET PO (09:02)
[2023-11-21] MEDS: Loratadine 10 MG TABLET PO (09:02)
[2023-11-21] MEDS: pyRIDostigmine bromide 60 MG TABLET PO ×3 (09:02→20:28)
--- NOTE | 2023-11-21 09:38 | HO.PM.IMPN ---
Subjective Subjective Date of Service: 11/21/23 Review of Systems Follow-up abdominal pain and nausea better today Physical Exam Vital Signs: Vital Signs: Last Vital Signs Temp 97.2 F 11/21/23 07:23 Pulse 63 11/21/23 07:23 Resp 20 11/21/23 07:23 BP 140/79 H 11/21/23 07:23 Pulse Ox 97 11/21/23 07:23 O2 Del Method Room Air 11/21/23 07:23 BMI result Body Mass Index 36.9 Appearing in no acute distress lung sounds are clear to auscultation heart regular rate rhythm, clear S1, S2 positive bowel sounds, abdomen is soft, nontender neuro patient is alert x3, no focal deficits Objective Data Active Medications Acetaminophen (Acetaminophen 325 Mg Tablet) 650 mg PO Q6H PRN PRN Reason: Pain, Mild (Pain Scale 1-3) Acetaminophen (Acetaminophen Supp 650 Mg Supp.Rect) 650 mg [place] Q6H PRN PRN Reason: Pain, Mild (Pain Scale 1-3) Carvedilol (Carvedilol 6.25 Mg Tablet) 6.25 mg PO DAILY@2100 PRN; Protocol PRN Reason: high blood pressure Carvedilol (Carvedilol 6.25 Mg Tablet) 6.25 mg PO DAILY [facility]; Protocol Last Admin: 11/21/23 09:02 Dose: 6.25 mg Documented By: GLENYS Dextrose (Dextrose 50 % 25 Gm/50 Ml Syringe) 25 gm IVPUSH Q15M PRN; Protocol PRN Reason: per Hypoglycemia Standing Ord. Glucose (Glucose Gel 15 Gm Gel..Gram.) 15 gm PO Q15M PRN; Protocol PRN Reason: per Hypoglycemia Standing Ord. Hydromorphone HCl (Hydromorphone Hcl 2 Mg/Ml Vial) 2 mg IVPUSH Q3H PRN; Protocol PRN Reason: Pain, Severe (Pain Scale 7-10) Last Admin: 11/21/23 09:01 Dose: 1 mg Documented By: GLENYS Comments: dose lower per Piperacillin Sod/Tazobactam (Sod 4.5 gm/ Sodium Chloride) 100 mls @ 200 mls/hr IV Q6H [facility] Last Admin: 11/21/23 08:51 Dose: 200 mls/hr Documented By: GLENYS Insulin Human Lispro (Insulin Lispro 100 Unit/Ml 3 Ml Vial) 0 unit SUBCUT Q6H [facility]; Protocol Last Admin: 11/21/23 07:49 Dose: Not Given Documented By: GLENYS Non-Admin Reason: No Insulin Coverage Levothyroxine Sodium (Levothyroxine Sodium 112 Mcg Tablet) 224 mcg PO DAILY [facility] Last Admin: 11/21/23 05:28 Dose: Not Given Documented By: ANDREW Non-Admin Reason: NPO Loratadine (Loratadine 10 Mg Tablet) 10 mg PO DAILY [facility] Last Admin: 11/21/23 09:02 Dose: 10 mg Documented By: GLENYS Losartan Potassium (Losartan Potassium 25 Mg Tablet) 25 mg PO BEDTIME [facility]; Protocol Last Admin: 11/20/23 22:26 Dose: 25 mg Documented By: ANDREW Melatonin (Melatonin 3 Mg Tablet) 6 mg PO BEDTIME PRN PRN Reason: Insomnia Montelukast Sodium (Montelukast Sodium 10 Mg Tablet) 10 mg PO BEDTIME [facility] Last Admin: 11/20/23 22:27 Dose: 10 mg Documented By: ANDREW Omeprazole (Omeprazole 40 Mg Capsule.Dr) 40 mg PO BID@0630,1630 [facility] Last Admin: 11/21/23 05:28 Dose: Not Given Documented By: ANDREW Non-Admin Reason: NPO Ondansetron HCl (Ondansetron Hcl 4 Mg/2 Ml Vial) 4 mg IVPUSH Q8H PRN PRN Reason: Nausea and Vomiting Last Admin: 11/20/23 14:30 Dose: 4 mg Documented By: CHAD Pantoprazole Sodium (Pantoprazole Sodium 40 Mg/10 Ml Vial) 40 mg IVPUSH BID@0630,1630 [facility] Last Admin: 11/21/23 05:35 Dose: 40 mg Documented By: ANDREW Prochlorperazine Edisylate (Prochlorperazine Edisylate 10 Mg/2 Ml Vial) 5 mg IVPUSH Q6H PRN PRN Reason: Nausea and Vomiting Last Admin: 11/20/23 20:14 Dose: 5 mg Documented By: ANDREW Pyridostigmine [place] (Pyridostigmine [place] 60 Mg Tablet) 60 mg PO TID [facility] Last Admin: 11/21/23 09:02 Dose: 60 mg Documented By: DOBROVilla Sodium Chloride (0.9 % Sodium Chloride Flush 3 Ml Syringe) [facility] Last Admin: 11/21/23 08:50 Dose: 3 ml Documented By: DOBROVilla Tizanidine HCl (Tizanidine Hcl 4 Mg Tablet) 2 mg PO TID PRN PRN Reason: for muscle spasm Labs 11/21/23 06:11 11/21/23 06:11 Labs: Laboratory Results - last 24 hr 11/20/23 11/20/23 11/20/23 10:37 18:01 19:58 MCV MCH MCHC RDW Plt Count MPV Absolute Nucleated RBC Nucleated RBC % (auto) Anion Gap Estim Creat Clear Calc Estimated GFR POC Glucose 175 H 153 H Random Glucose Lactic Acid 0.8 Calcium 11/20/23 11/21/23 11/21/23 23:55 03:32 06:11 MCV 80.9 MCH 25.8 L MCHC 31.9 RDW 13.7 Plt Count 109 L MPV 11.6 Absolute Nucleated RBC 0.000 Nucleated RBC % (auto) 0.0 Anion Gap 14 Estim Creat Clear Calc 101.0 Estimated GFR > 60 POC Glucose 140 H 127 H Random Glucose 138 H Lactic Acid Calcium 8.8 Microbiology Microbiology Results: Microbiology 11/19/23 Unknown Urine Culture - Final Urine clean catch - Urine ray top No growth. Assessment and Plan (1) Right upper quadrant pain: Status: Acute Plan 52-year-old female with pertinent history of essential hypertension, mixed hyperlipidemia, insulin-dependent type 2 diabetes mellitus, asthma not on home oxygen, hypothyroidism, mood disorder, chronic pain syndrome on chronic opioids, hypogammaglobulinemia on IVIG who presents to the emergency department for evaluation of abdominal discomfort and dark colored stools. Acute GI bleed IV Protonix. Imaging with pancolitis, continue zosyn Stool studies including C diff pending, hx of chronic diarrhea, no stools reported Consulted Gastroenterology>plan for EGD and colonoscopy Low ejection fraction of gallbladder No surgical intervention at this time Essential hypertension losartan, carvedilol Insulin-dependent type 2 diabetes mellitus with hyperglycemia Initiating Accu-Cheks with sliding scale insulin Chronic pain syndrome on chronic opioids IV Dilaudid while inpatient Hypothyroidism On Synthroid Mixed hyperlipidemia On statin DVT prophylaxis: Mechanical Attending Dr. Weeks Full code continue hospital stay for evaluation of acute GI bleed, close monitoring of H&H, hemodynamic monitoring (as above), which is not possible in a lesser acute setting. Specialist consult pending Quality Stroke Does the patient have a stroke diagnosis?: No VTE Prior VTE?: No VTE Risk Level:: Medical - moderate - high VTE Device Contraindication: N/A - Device Ordered VTE Drug Contraindication: Treatment Not Indicated
[2023-11-21 11:57] LABS: Glucose, Whole Blood 153 mg/dL (60-115)
[2023-11-21] MEDS: Sodium Phosphate,Mono-Dibasic 133 ML ENEMA PR (12:26)
--- NOTE | 2023-11-21 12:57 | HO.ANESPROP2 ---
[facility] Active Problems Active Problems: All Active Problems (Updated 11/20/23 @ 09:35 by Tyesha Mcgill MD) Elevated LFTs (Acute) Right upper quadrant pain (Acute) Colitis (Acute) Acute GI bleeding (Acute) Upper GI bleed (Acute) GI bleed (Acute) Left hip pain (Acute) Neck pain (Acute) Lipoma (Acute) Ganglion cyst (Acute) Anemia (Acute) Cellulitis of chest wall (Acute) Dizziness (Acute) Port-A-Cath in place (Acute) Chalazion right upper eyelid (Acute) Preop cardiovascular exam (Acute) Pain from implanted hardware (Acute) Preoperative examination (Acute) Soft tissue calcification (Acute) Skin lesion of scalp (Acute) Gastritis (Acute) Osteoarthritis of hip (Acute) Hypothyroidism (Acute) Osteopenia (Acute) Pure hypercholesterolemia (Acute) Pain of both hip joints (Acute) Acquired hypothyroidism (Acute) Tinea cruris (Acute) Abnormal EKG (Acute) Asthma (Acute) Benign essential hypertension (Acute) Cellulitis of foot (Acute) Lumbar degenerative disc disease (Acute) Right hip pain (Acute) Cellulitis of both lower extremities (Acute) Asthma (Acute) Hypogammaglobulinemia (Acute) CHARLES (obstructive sleep apnea) (Acute) Recurrent cellulitis of lower extremity (Acute) Tinea pedis (Acute) Encounter for care related to Port-a-Cath (Acute) Cellulitis (Acute) Lipoma (Acute) Cellulitis of right lower leg (Acute) Mild anxiety (Acute) Past Medical History Medical History Anemia Chronic restrictive lung disease Brugada syndrome Shortness of breath Encounter for care related to Port-a-Cath Tinea pedis Recurrent cellulitis of lower extremity CHARLES (obstructive sleep apnea) Hypogammaglobulinemia Asthma Cellulitis of both lower extremities Right hip pain Lumbar degenerative disc disease Benign essential hypertension Obesity (BMI 30-39.9) Mitochondrial myopathy Asthma Diabetes mellitus History of revision of total replacement of right hip joint (~12/2019) Acquired hypothyroidism Pain of both hip joints Pure hypercholesterolemia Hx of cataract HTN (hypertension) Osteopenia Hypothyroidism Osteoarthritis of hip Gastritis Family History Family History Father Leukemia Mother Hypertension Diabetes Sister Alive and well Brother Pancreatic cancer Paternal Grandmother Stomach cancer Paternal Grandmother Throat cancer Family history of problems with anesthesia: No Surgical History Surgical History History of removal of Port-a-Cath History of total right hip arthroplasty (~06/03/19) History of eye surgery (~09/2017) History of hip surgery Hx of foot surgery (~01/02/19) History of removal of cyst Hx of left knee surgery History of elbow surgery (~07/2016) Hx of thumb surgery Hx of appendectomy Hx of hysterectomy (~07/2011) Hx of bilateral breast reduction surgery History of Problems with Anesthesia: No Social History Social History Household Members: Family and Children Housing: Apartment Do you presently have visiting nurse or other home services: No Alcohol intake: former Comment: refused bed alarm Patient Tobacco Use Status: Never used Tobacco e-Cigarette/Vaping Use: Never Used Second Hand Smoke Exposure: No Advance Directives Date on File: 10/02/23 service: No Current occupational status: disabled Cognitive needs: No Hearing needs: No Vision needs: No Meds Allergies Allergy/AdvReac Type Severity Reaction Status Date / Time cephalexin Allergy Severe Difficulty Verified 10/13/23 11:50 Breathing latex [LATEX] Allergy Severe Difficulty Verified 10/13/23 11:50 Breathing levofloxacin [From LEVAQUIN] Allergy Severe SHORTNESS Verified 10/13/23 11:50 OF BREATH, RASH, rash morphine [MORPHINE] Allergy Severe RASH, Verified 10/13/23 11:50 asthma exacerbation, rash baclofen [BACLOFEN] Allergy Intermediate Rash Verified 10/13/23 11:50 celecoxib [Celebrex] Allergy Intermediate itching, Verified 10/13/23 11:50 rash, flushing prednisone [PREDNISONE] Allergy Intermediate RASH, Verified 10/13/23 11:50 asthma exacerbation, rash codeine Allergy Unknown Rash Verified 10/13/23 11:50 gluten [GLUTEN] Allergy Unknown UNKNOWN Verified 10/13/23 11:50 oxycodone Allergy Unknown rash Verified 10/13/23 11:50 ranitidine Allergy Unknown unknown Verified 10/13/23 11:50 roflumilast [Daliresp] Allergy Unknown rash Verified 10/13/23 11:50 tramadol [TRAMADOL] Allergy Unknown RASH,SHORTNESS Verified 10/13/23 11:50 OF BREATH AND HEADACHE, asthma exacerbation, rash celery Allergy Rash Verified 10/13/23 11:50 cyclobenzaprine Allergy Rash and Verified 10/13/23 11:50 [From Flexeril] asthma exacerbation environmental allergies Allergy Cleaning Verified 10/13/23 11:50 products cause asthma attack pineapple Allergy Rash Verified 10/13/23 11:50 strawberry Allergy Rash Verified 10/13/23 11:50 sulfamethoxazole AdvReac Intermediate vertigo Verified 10/13/23 11:50 [From Bactrim] trimethoprim [From Bactrim] AdvReac Intermediate vertigo Verified 10/13/23 11:50 diazepam [From Valium] AdvReac Cough Verified 10/13/23 11:50 Active Medications: Current Medications Acetaminophen (Acetaminophen 325 Mg Tablet) 650 mg PO Q6H PRN PRN Reason: Pain, Mild (Pain Scale 1-3) Acetaminophen (Acetaminophen Supp 650 Mg Supp.Rect) 650 mg [place] Q6H PRN PRN Reason: Pain, Mild (Pain Scale 1-3) Carvedilol (Carvedilol 6.25 Mg Tablet) 6.25 mg PO DAILY@2100 PRN; Protocol PRN Reason: high blood pressure Carvedilol (Carvedilol 6.25 Mg Tablet) 6.25 mg PO DAILY [facility]; Protocol Last Admin: 11/21/23 09:02 Dose: 6.25 mg Dextrose (Dextrose 50 % 25 Gm/50 Ml Syringe) 25 gm IVPUSH Q15M PRN; Protocol PRN Reason: per Hypoglycemia Standing Ord. Glucose (Glucose Gel 15 Gm Gel..Gram.) 15 gm PO Q15M PRN; Protocol PRN Reason: per Hypoglycemia Standing Ord. Hydromorphone HCl (Hydromorphone Hcl 2 Mg/Ml Vial) 1 mg IVPUSH Q8H PRN; Protocol PRN Reason: Pain, Severe (Pain Scale 7-10) Piperacillin Sod/Tazobactam (Sod 4.5 gm/ Sodium Chloride) 100 mls @ 200 mls/hr IV Q6H [facility] Last Infusion: 11/21/23 10:35 Dose: Infused Lactated Ringer's (Lr) 1,000 mls @ 50 mls/hr IVCONT .Q20H [facility] Insulin Human Lispro (Insulin Lispro 100 Unit/Ml 3 Ml Vial) 0 unit SUBCUT Q6H [facility]; Protocol Last Admin: 11/21/23 07:49 Dose: Not Given Levothyroxine Sodium (Levothyroxine Sodium 112 Mcg Tablet) 224 mcg PO DAILY@2100 [facility] Loratadine (Loratadine 10 Mg Tablet) 10 mg PO DAILY [facility] Last Admin: 11/21/23 09:02 Dose: 10 mg Losartan Potassium (Losartan Potassium 25 Mg Tablet) 25 mg PO BEDTIME [facility]; Protocol Last Admin: 11/20/23 22:26 Dose: 25 mg Melatonin (Melatonin 3 Mg Tablet) 6 mg PO BEDTIME PRN PRN Reason: Insomnia Montelukast Sodium (Montelukast Sodium 10 Mg Tablet) 10 mg PO BEDTIME [facility] Last Admin: 11/20/23 22:27 Dose: 10 mg Omeprazole (Omeprazole 40 Mg Capsule.Dr) 40 mg PO BID@0630,1630 [facility] Last Admin: 11/21/23 05:28 Dose: Not Given Ondansetron HCl (Ondansetron Hcl 4 Mg/2 Ml Vial) 4 mg IVPUSH Q8H PRN PRN Reason: Nausea and Vomiting Last Admin: 11/20/23 14:30 Dose: 4 mg Pantoprazole Sodium (Pantoprazole Sodium 40 Mg/10 Ml Vial) 40 mg IVPUSH BID@0630,1630 [facility] Last Admin: 11/21/23 05:35 Dose: 40 mg Prochlorperazine Edisylate (Prochlorperazine Edisylate 10 Mg/2 Ml Vial) 5 mg IVPUSH Q6H PRN PRN Reason: Nausea and Vomiting Last Admin: 11/20/23 20:14 Dose: 5 mg Pyridostigmine [place] (Pyridostigmine [place] 60 Mg Tablet) 60 mg PO TID [facility] Last Admin: 11/21/23 09:02 Dose: 60 mg Sodium Biphosphate/Sodium Phosphate (Sodium Phosphate,[place]-Dibasic 133 Ml Enema) 133 ml HI ONCE PRN PRN Reason: Consult order Last Admin: 11/21/23 12:26 Dose: 133 ml Sodium Chloride (0.9 % Sodium Chloride Flush 3 Ml Syringe) [facility] Last Admin: 11/21/23 08:50 Dose: 3 ml Tizanidine HCl (Tizanidine Hcl 4 Mg Tablet) 2 mg PO TID PRN PRN Reason: for muscle spasm Home Medications Medication Instructions Recorded Confirmed Last Taken Type ipratropium bromide 42 mcg (0.06 2 spray intranasal DAILY 03/11/21 11/20/23 11/18/23 History %) nasal spray immune glob,gamma(IgG) 5 40 g IV Q3W 07/09/21 10/13/23 3 Weeks Ago History nell-ltw-dglo-IgA 0 to 50 mcg/mL ~09/05/23 IV solution (Gammagard S-D (IgA < 1 mcg/mL)) benralizumab 30 mg/mL subcutaneous 30 mg subcut Q8W 10/06/22 11/20/23 10/04/23 History syringe (Fasenra) pyridostigmine bromide 60 mg tablet 60 mg PO TID 01/02/23 11/20/23 11/18/23 History nebulizers 03/09/23 10/13/23 Unknown History clotrimazole 10 mg jacinta 10 mg mucous membrane TID PRN 08/28/23 11/20/23 11/18/23 History THRUSH cholecalciferol (vitamin D3) 50 100 mcg PO BEDTIME 09/26/23 11/20/23 11/18/23 History mcg (2,000 unit) capsule loratadine 10 mg tablet 10 mg PO DAILY 09/26/23 11/20/23 11/18/23 History metformin 500 mg tablet,extended 1,000 mg PO BID@0900,1700 09/26/23 11/20/23 11/18/23 History release 24 hr bismuth subsalicylate 262 mg 2 mg PO DAILY PRN Diarrhea 11/20/23 11/20/23 Unknown History tablet (Pepto-Bismol) carvedilol 6.25 mg tablet 6.25 mg PO DAILY 11/20/23 11/20/23 11/18/23 History carvedilol 6.25 mg tablet 6.25 mg PO DAILY@1500 PRN high 11/20/23 11/20/23 11/18/23 History blood pressure Exam Height,Weight and Vital Signs: Height 5 ft 4 in Weight 97.5 kg Last Vital Signs Temp 97.8 F 11/21/23 12:34 Pulse 62 11/21/23 12:34 Resp 15 11/21/23 12:34 BP 133/72 02/06/24 12:34 Pulse Ox 96 11/21/23 12:34 O2 Del Method Room Air 11/21/23 12:34 Pertinent Lab Results Pertinent Lab Results: Laboratory Tests 11/19/23 11/19/23 11/19/23 08:34 08:35 09:21 WBC 9.8 RBC 4.41 Hgb 11.5 L Hct 35.4 L MCV 80.3 MCH 26.1 L MCHC 32.5 RDW 13.6 Plt Count 177 D MPV 11.0 Immature Gran % (Auto) 0.2 Neut % (Auto) 85.1 H Lymph % (Auto) 8.2 L [place] % (Auto) 6.4 Eos % (Auto) 0.0 Baso % (Auto) 0.1 Lymph # (Auto) 0.8 L [place] # (Auto) 0.6 Eos # (Auto) 0.0 Baso # (Auto) 0.0 Abs Immat Gran (auto) 0.02 Absolute Neuts (auto) 8.4 H Absolute Nucleated RBC 0.000 Nucleated RBC % (auto) 0.0 PT 12.4 INR 1.0 Sodium 139 Potassium 3.9 Chloride 104 Carbon Dioxide 23 Anion Gap 16 BUN 13 Creatinine 0.86 Estim Creat Clear Calc 84.3 Estimated GFR > 60 POC Glucose Random Glucose 211 H Lactic Acid Calcium 9.4 Total Bilirubin 1.2 H AST 33 H ALT 48 H Alkaline Phosphatase 114 Total Protein 7.5 Albumin 4.2 Urine Color Yellow Urine Appearance Cloudy Urine pH 8.5 Ur Specific [place] 1.020 Urine Protein Trace Urine Glucose (UA) 100 H Urine Ketones Trace Urine Blood Negative Urine Nitrite Negative Ur Leukocyte Esterase Small (1+) H Urine RBC 0-2 Urine WBC 6-10 H Ur Squamous Epith Cells 3-5 Urine Bacteria Trace Hyaline Casts 0-2 Stool Occult Blood POSITIVE COVID-19 (JODY) Negative COVID-19 Clin Com See Note Blood Type A Positive Antibody Screen NEGATIVE 11/19/23 11/19/23 11/20/23 13:31 20:55 03:08 WBC RBC Hgb 10.9 L Hct 33.5 L MCV MCH MCHC RDW Plt Count MPV Immature Gran % (Auto) Neut % (Auto) Lymph % (Auto) [place] % (Auto) Eos % (Auto) Baso % (Auto) Lymph # (Auto) [place] # (Auto) Eos # (Auto) Baso # (Auto) Abs Immat Gran (auto) Absolute Neuts (auto) Absolute Nucleated RBC Nucleated RBC % (auto) PT INR Sodium Potassium Chloride Carbon Dioxide Anion Gap BUN Creatinine Estim Creat Clear Calc Estimated GFR POC Glucose 152 H 160 H Random Glucose Lactic Acid Calcium Total Bilirubin AST ALT Alkaline Phosphatase Total Protein Albumin Urine Color Urine Appearance Urine pH Ur Specific [place] Urine Protein Urine Glucose (UA) Urine Ketones Urine Blood Urine Nitrite Ur Leukocyte Esterase Urine RBC Urine WBC Ur Squamous Epith Cells Urine Bacteria Hyaline Casts Stool Occult Blood COVID-19 (JODY) COVID-19 Wishdates Blood Type Antibody Screen 11/20/23 11/20/23 11/20/23 04:31 04:57 08:58 WBC 4.4 L RBC 3.84 L Hgb 9.8 L Hct 30.9 L MCV 80.5 MCH 25.5 L MCHC 31.7 RDW 13.9 Plt Count 117 L D MPV 10.8 Immature Gran % (Auto) 0.2 Neut % (Auto) 64.6 Lymph % (Auto) 24.4 [place] % (Auto) 10.8 Eos % (Auto) 0.0 Baso % (Auto) 0.0 Lymph # (Auto) 1.1 L [place] # (Auto) 0.5 Eos # (Auto) 0.0 Baso # (Auto) 0.0 Abs Immat Gran (auto) 0.01 Absolute Neuts (auto) 2.9 Absolute Nucleated RBC 0.000 Nucleated RBC % (auto) 0.0 PT INR Sodium 140 Potassium 3.5 Chloride 107 Carbon Dioxide 21 L Anion Gap 16 BUN 12 Creatinine 0.81 Estim Creat Clear Calc 89.6 Estimated GFR > 60 POC Glucose 146 H 190 H Random Glucose 146 H Lactic Acid Calcium 8.7 D Total Bilirubin AST ALT Alkaline Phosphatase Total Protein Albumin Urine Color Urine Appearance Urine pH Ur Specific [place] Urine Protein Urine Glucose (UA) Urine Ketones Urine Blood Urine Nitrite Ur Leukocyte Esterase Urine RBC Urine WBC Ur Squamous Epith Cells Urine Bacteria Hyaline Casts Stool Occult Blood COVID-19 (JODY) COVID-19 Wishdates Blood Type Antibody Screen 11/20/23 11/20/23 11/20/23 10:37 18:01 19:58 WBC RBC Hgb Hct MCV MCH MCHC RDW Plt Count MPV Immature Gran % (Auto) Neut % (Auto) Lymph % (Auto) [place] % (Auto) Eos % (Auto) Baso % (Auto) Lymph # (Auto) [place] # (Auto) Eos # (Auto) Baso # (Auto) Abs Immat Gran (auto) Absolute Neuts (auto) Absolute Nucleated RBC Nucleated RBC % (auto) PT INR Sodium Potassium Chloride Carbon Dioxide Anion Gap BUN Creatinine Estim Creat Clear Calc Estimated GFR POC Glucose 175 H 153 H Random Glucose Lactic Acid 0.8 Calcium Total Bilirubin AST ALT Alkaline Phosphatase Total Protein Albumin Urine Color Urine Appearance Urine pH Ur Specific [place] Urine Protein Urine Glucose (UA) Urine Ketones Urine Blood Urine Nitrite Ur Leukocyte Esterase Urine RBC Urine WBC Ur Squamous Epith Cells Urine Bacteria Hyaline Casts Stool Occult Blood COVID-19 (JODY) COVIDMessage Missile Blood Type Antibody Screen 11/20/23 11/21/23 11/21/23 23:55 03:32 06:11 WBC 4.6 L RBC 3.72 L Hgb 9.6 L Hct 30.1 L MCV 80.9 MCH 25.8 L MCHC 31.9 RDW 13.7 Plt Count 109 L MPV 11.6 Immature Gran % (Auto) Neut % (Auto) Lymph % (Auto) [place] % (Auto) Eos % (Auto) Baso % (Auto) Lymph # (Auto) [place] # (Auto) Eos # (Auto) Baso # (Auto) Abs Immat Gran (auto) Absolute Neuts (auto) Absolute Nucleated RBC 0.000 Nucleated RBC % (auto) 0.0 PT INR Sodium 143 Potassium 3.0 L Chloride 107 Carbon Dioxide 25 Anion Gap 14 BUN 10 Creatinine 0.73 Estim Creat Clear Calc 101.0 Estimated GFR > 60 POC Glucose 140 H 127 H Random Glucose 138 H Lactic Acid Calcium 8.8 Total Bilirubin AST ALT Alkaline Phosphatase Total Protein Albumin Urine Color Urine Appearance Urine pH Ur Specific [place] Urine Protein Urine Glucose (UA) Urine Ketones Urine Blood Urine Nitrite Ur Leukocyte Esterase Urine RBC Urine WBC Ur Squamous Epith Cells Urine Bacteria Hyaline Casts Stool Occult Blood COVID-19 (JODY) [employer] Missile Blood Type Antibody Screen 11/21/23 11:52 WBC RBC Hgb Hct MCV MCH MCHC RDW Plt Count MPV Immature Gran % (Auto) Neut % (Auto) Lymph % (Auto) [place] % (Auto) Eos % (Auto) Baso % (Auto) Lymph # (Auto) [place] # (Auto) Eos # (Auto) Baso # (Auto) Abs Immat Gran (auto) Absolute Neuts (auto) Absolute Nucleated RBC Nucleated RBC % (auto) PT INR Sodium Potassium Chloride Carbon Dioxide Anion Gap BUN Creatinine Estim Creat Clear Calc Estimated GFR POC Glucose 153 H Random Glucose Lactic Acid Calcium Total Bilirubin AST ALT Alkaline Phosphatase Total Protein Albumin Urine Color Urine Appearance Urine pH Ur Specific [place] Urine Protein Urine Glucose (UA) Urine Ketones Urine Blood Urine Nitrite Ur Leukocyte Esterase Urine RBC Urine WBC Ur Squamous Epith Cells Urine Bacteria Hyaline Casts Stool Occult Blood COVID-19 (JODY) COVID-19 Clin Com Blood Type Antibody Screen Airway Mallampati Class: III TM Dist: >3cm Neck ROM: Full Assessment and Plan Final Anesthetic Review Family History of Problems with Anesthesia: No History of Problems with Anesthesia: No NPO: Yes ASA Class: III and Emergency Final Preanesthetic Review: Meds/Allgs Chart Reviewed, Consent Obtained/Reviewed and Anes Risks/Benef Reviewed Patient Risk: Intermediate Procedure Risk: Low Anesthetic Plan Anesthetic Plan: MAC: Disposition: Standard PACU
[2023-11-21] MEDS: Lactated Ringers 1,000 ML 50 ML IVCONT (13:00)
--- NOTE | 2023-11-21 13:02 | MHC.SHP ---
Pre-Procedural Eval Section A - 24 Hr Update-Section A only Date of Service: 11/21/23 The patient is an INPATIENT: Yes The patient has been examined within 24 hours of the surgical procedure. The History & Physical has been completed within 30 days and I have reviewed it.: Yes Section B - Complete if H&P > 30 days Chief Complaint: Dark Stool Allergies: Allergies Allergy/AdvReac Type Severity Reaction Status Date / Time cephalexin Allergy Severe Difficulty Verified 10/13/23 11:50 Breathing latex [LATEX] Allergy Severe Difficulty Verified 10/13/23 11:50 Breathing levofloxacin [From LEVAQUIN] Allergy Severe SHORTNESS Verified 10/13/23 11:50 OF BREATH, RASH, rash morphine [MORPHINE] Allergy Severe RASH, Verified 10/13/23 11:50 asthma exacerbation, rash baclofen [BACLOFEN] Allergy Intermediate Rash Verified 10/13/23 11:50 celecoxib [Celebrex] Allergy Intermediate itching, Verified 10/13/23 11:50 rash, flushing prednisone [PREDNISONE] Allergy Intermediate RASH, Verified 10/13/23 11:50 asthma exacerbation, rash codeine Allergy Unknown Rash Verified 10/13/23 11:50 gluten [GLUTEN] Allergy Unknown UNKNOWN Verified 10/13/23 11:50 oxycodone Allergy Unknown rash Verified 10/13/23 11:50 ranitidine Allergy Unknown unknown Verified 10/13/23 11:50 roflumilast [Daliresp] Allergy Unknown rash Verified 10/13/23 11:50 tramadol [TRAMADOL] Allergy Unknown RASH,SHORTNESS Verified 10/13/23 11:50 OF BREATH AND HEADACHE, asthma exacerbation, rash celery Allergy Rash Verified 10/13/23 11:50 cyclobenzaprine Allergy Rash and Verified 10/13/23 11:50 [From Flexeril] asthma exacerbation environmental allergies Allergy Cleaning Verified 10/13/23 11:50 products cause asthma attack pineapple Allergy Rash Verified 10/13/23 11:50 strawberry Allergy Rash Verified 10/13/23 11:50 sulfamethoxazole AdvReac Intermediate vertigo Verified 10/13/23 11:50 [From Bactrim] trimethoprim [From Bactrim] AdvReac Intermediate vertigo Verified 10/13/23 11:50 diazepam [From Valium] AdvReac Cough Verified 10/13/23 11:50 Plan Diagnosis/Plan: Unchanged I have reviewed the history and physical and performed a pertinent physical examination on my patient. No changes have occurred unless specified. EGD and colonoscopy Time Spent With Patient Time: Total time managing care of this patient today ____ minutes.
--- NOTE | 2023-11-21 13:03 | P.OP_ITS ---
Operative Note Operative Note Date of Service: 11/21/23 Narrative: Operative Information Procedure Description: EGD, Colonoscopy Indication: [] Anesthesia: MAC FLEXIBLE TRANSORAL UPPER GASTROINTESTINAL ENDOSCOPY AND COLONOSCOPY PROCEDURE NOTE UPPER ENDOSCOPY Consent: Indications for the procedure and potential complications of bleeding, perforation, reaction to medications and missed diagnosis were discussed with the patient and informed consent was obtained. Instrument: Olympus GIF H 190 J mid size upper endoscope Monitoring: Vital signs and clinical assessment, continuous EKG monitoring, Pulse oximetry, Carbon Dioxide monitoring and blood pressure monitoring were done throughout the procedure. Procedure: The patient was placed in the left lateral decubitis position and pre-procedure medications were administered and a bite block was placed. The endoscope was inserted into the mouth and advanced under direct vision to the third part of duodenum. A careful inspection was made as the upper endoscope was withdrawn including a retroflexed examination of the proximal stomach; Findings and interventions are described below. Findings: Larynx:normal Esophagus: GE junction at 38 cm, diaphragm hiatus at 38 cm, 3 columns of large varices with red medellin noted, x 4 bands deployed with good results and then sprayed with hemospray Stomach: Patchy gastric erythema with numerous polyps in the body and antrum, some of these were inflammed and had erosions on the surface azeem near the distal stomach body, a few of these were removed with cold snare. Grade 2 flap valve on retroflexed examination of the cardia. No gastric varices seen. mosaic pattern consistent with portal hypertensive gastropathy. Duodenum: Normal bulb and descending duodenum, Intervention: Biopsies as noted above, snare polypectomy, variceal banding, hemospray application COLONOSCOPY Instrument: Olympus variable stiffness pediatric scope 190L Colonoscopy Monitoring: Vital signs and clinical assessment, continuous EKG monitoring, Pulse oximetry, Carbon Dioxide monitoring and blood pressure monitoring were done throughout the procedure. Colon withdrawal time was 12 minutes. Procedure: The patient was placed in the left lateral decubitis position and pre-procedure medications were administered. After a digital rectal examination of the ano-rectum, the video colonoscope was inserted into the rectum and advanced through the colon to the cecum/TI. The colonoscope was slowly withdrawn in a retrograde panoramic fashion and the colon mucosa was carefully examined including a retroflexed view of the rectum. Findings and interventions are described below. Procedure Difficulty:easy Findings: Terminal Ileum-normal, bx taken Cecum:normal Ascending Colon: normal, random bx taken Transverse Colon -normal Descending Colon:normal Sigmoid Colon: patchy edema of the mucosa, random bx taken Rectum: Retroflexion with small internal hemorrhoids, grade I Anorectum - normal Colon preparation: [place] Bowel Preparation Scale Right colon; 1-2 Transverse colon: 1-2 Left colon; 1-2 (0 = Unprepared colon segment with mucosa not seen due to solid stool that cannot be cleared. 1 = Portion of mucosa of the colon segment seen, but other areas of the colon segment not well seen due to staining, residual stool and/or opaque liquid. 2 = Minor amount of residual staining, small fragments of stool and/or opaque liquid, but mucosa of colon segment seen well. 3 = Entire mucosa of colon segment seen well with no residual staining, small fragments of stool or opaque liquid) Impression and Post Procedure Diagnosis: Endoscopy Findings: gastric polyps portal hypertensive gastropathy either from cirrhosis (BENEDICT most likely) or nodular regenerative hyperplasia (also possible as INR is totally normal) esophageal varices anemia could have been from either varices or polyps Colonoscopy Findings: internal hemorrhoids 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 Plan: Await Pathology results Repeat Colonoscopy in 1-2 years or earlier if clinically indicated High fiber diet leaflet avoid straining at stool, epsom salts and sitz bath, anusol supps or cream Repeat EGD in 4-6 weeks --cont with carvedilol and statin, if ongoing large varices might consider referral for TIPS clears today and advance diet tomorrow Above findings were reviewed with the patient and relevant handouts were provided if indicated.
--- NOTE | 2023-11-21 14:27 | PM.DS ---
DS: Providers Provider Date of admission: 11/19/23 20:36 Primary care physician: Cassius Strong MD Consults: 11/19/23 20:35 Consult to Gastroenterology Routine Consulting Provider: Tyesha Mcgill Reason for consultation: GI bleed Consult to General Surgery Routine Consulting Provider: [facility] [place] General Surgeons Reason for consultation: low gb ef ; functional gb disorder DS: Diagnosis Discharge Diagnosis (1) Right upper quadrant pain: Status: Acute DS: Summary Hospital Course Hospital Course: History and physical as per admitting provider. This is a 52-year-old female with pertinent history of essential hypertension, mixed hyperlipidemia, insulin-dependent type 2 diabetes mellitus, asthma not on home oxygen, hypothyroidism, mood disorder, chronic pain syndrome on chronic opioids, hypogammaglobulinemia on IVIG who presents to the emergency department for evaluation of abdominal discomfort and dark colored stools. Patient was admitted on 09/26 for evaluation of acute GI bleed. She went upper endoscopy which showed large varices and required variceal banding x5. Patient was asked to abstain from NSAIDs. Patient states that since discharge (09/30/2023) patient has been having loose stools every day. It is associated with upper abdominal discomfort which is constant, nonradiating and worse with p.o. intake. About 24 hours prior to presentation, patient states she started noticing dark-colored stools. She had about 6-7 episodes in the last 24 hours. Also had 1 episode of nonbloody emesis. States she has been on iron supplementation since the last 2 months but the stool color changed one day prior to presentation. No fever, chills, chest discomfort, palpitations, changes in urinary habits. In the emergency department, imaging with pancolitis and HIDA scan with low gallbladder ejection fraction. 52-year-old woman admitted for acute GI bleeding. Started on IV Protonix, imaging showing franklin colitis, treated with IV Zosyn. No stool studies obtained due to no stool. Status post colonoscopy and endoscopy. 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 Biopsies taken, repeat colonoscopy 1-2 years, repeat EGD in 4-6 weeks. Hypertension. Continue losartan and carvedilol Diabetes mellitus type 2. Continue home regimen Chronic pain syndrome. Continue home Dilaudid Hypothyroidism. Continue Synthroid Hyperlipidemia. Continue statin Physical Exam Vital Signs: Vital Signs: Last Vital Signs Temp 97.8 F 11/21/23 12:34 Pulse 62 11/21/23 12:34 Resp 15 11/21/23 12:34 BP 133/72 11/21/23 12:34 Pulse Ox 96 11/21/23 12:34 O2 Del Method Room Air 11/21/23 12:34 BMI result Body Mass Index 36.9 DS: Data Data Completed and Pending Completed studies during hospitalization [Text1]: Procedures Control Bleeding in Gastrointestinal Tract, Via Natural or Artificial Opening Endoscopic (09/26/23) Excision of Stomach, Pylorus, Via Natural or Artificial Opening Endoscopic, Diagnostic (09/26/23) Introduction of Mineral-based Topical Hemostatic Agent into Upper GI, Via Natural or Artificial Opening Endoscopic, [employer] 6 (09/26/23) Introduction of Other Therapeutic Substance into Upper GI, Via Natural or Artificial Opening Endoscopic (09/26/23) Occlusion of Esophageal Vein with Extraluminal Device, Via Natural or Artificial Opening Endoscopic (09/26/23) Transfusion of Nonautologous Red Blood Cells into Peripheral Vein, Percutaneous Approach (09/26/23) Pending studies at discharge: Pending at discharge 11/21/23 14:01 Surgical [PTH] Routine Labs on day of discharge: Laboratory Results - last 24 hr 11/20/23 11/20/23 11/20/23 18:01 19:58 23:55 WBC RBC Hgb Hct MCV MCH MCHC RDW Plt Count MPV Absolute Nucleated RBC Nucleated RBC % (auto) Sodium Potassium Chloride Carbon Dioxide Anion Gap BUN Creatinine Estim Creat Clear Calc Estimated GFR POC Glucose 175 H 153 H 140 H Random Glucose Calcium 11/21/23 11/21/23 11/21/23 03:32 06:11 11:52 WBC 4.6 L RBC 3.72 L Hgb 9.6 L Hct 30.1 L MCV 80.9 MCH 25.8 L MCHC 31.9 RDW 13.7 Plt Count 109 L MPV 11.6 Absolute Nucleated RBC 0.000 Nucleated RBC % (auto) 0.0 Sodium 143 Potassium 3.0 L Chloride 107 Carbon Dioxide 25 Anion Gap 14 BUN 10 Creatinine 0.73 Estim Creat Clear Calc 101.0 Estimated GFR > 60 POC Glucose 127 H 153 H Random Glucose 138 H Calcium 8.8 Preliminary micro results at discharge 11/20/23 11:12 Blood Culture - Preliminary Blood - Venous No growth after 24 hours. 11/20/23 11:12 Blood Culture - Preliminary Blood - Venous No growth after 24 hours. Discharge Plan Discharge Referrals: Cassius Strong MD [Primary Care Provider] - 1 Week Discharge Medications: No Action (DME) lancets [FreeStyle Lancets] 28 gauge misc See Rx Instructions .MEDSUPPLY Qty: 150 4RF Rx Instructions: 5 times a day (DME) blood pressure monitor Kit See Rx Instructions .Route Qty: 1 0RF Rx Instructions: As directed Fiasp FlexTouch U-100 Insulin 100 unit/mL (3 mL) insulin pen See Rx Instructions subcut .COMPLEX 30 Days Qty: 150 5RF Rx Instructions: Inject 5 to 20 units SQ before meals and snacks, FOUR TIMES A DAY atorvastatin 40 mg tablet 40 mg PO BEDTIME Qty: 90 1RF montelukast 10 mg tablet 10 mg PO BEDTIME 90 Days Qty: 90 3RF calcium citrate 250 mg calcium tablet 500 mg PO BID 30 Days Qty: 120 5RF (DME) DIABETIC SHOES See Rx Instructions .Route .MEDSUPPLY Qty: 1 0RF Rx Instructions: DIABETIC SHOES - 1 PAIR - use as directed -- Dx: E11.9 -- diabetes mellitus ferrous sulfate [FeroSul] 325 mg (65 mg iron) tablet 325 mg PO DAILY Qty: 90 1RF losartan 25 mg tablet 25 mg PO BEDTIME 90 Days Qty: 90 3RF Hold Instructions: Doctor's Order levothyroxine [Synthroid] 112 mcg tablet 224 mcg PO DAILY Qty: 60 2RF tizanidine 2 mg tablet 2 mg PO TID PRN (Reason: for muscle spasm) Qty: 90 0RF hydromorphone 2 mg tablet 2 mg PO TID PRN (Reason: pain) 7 Days Qty: 21 0RF levalbuterol tartrate [Xopenex HFA] 45 mcg/actuation HFA aerosol inhaler 2 puff inhalation Q6H PRN (Reason: shortness of breath or wheezing) 30 Days Qty: 15 11RF ondansetron 8 mg tablet,disintegrating 8 mg PO Q8H PRN (Reason: nausea and vomiting) 10 Days Qty: 30 1RF (DME) FreeStyle Lite Strips Strip See Rx Instructions .Route Qty: 100 5RF Rx Instructions: As directed- checks 4-5 X/day pyridostigmine bromide 60 mg tablet 60 mg PO TID loratadine 10 mg Tablet 10 mg PO DAILY cholecalciferol (vitamin D3) 50 mcg (2,000 unit) capsule 100 mcg PO BEDTIME metformin 500 mg tablet extended release 24 hr 1,000 mg PO BID@0900,1700 omeprazole 40 mg capsule,delayed release(DR/EC) 40 mg PO BID Qty: 180 0RF carvedilol 6.25 mg Tablet 6.25 mg PO DAILY@1500 PRN (Reason: high blood pressure) Rx Instructions: must administer with a meal/food Pepto-Bismol 262 mg Tablet 2 mg PO DAILY PRN (Reason: Diarrhea) carvedilol 6.25 mg tablet 6.25 mg PO DAILY Protocol: Hold for SBP/HR < HOLD for SBP < : 90 HOLD for HR < : 60 Gammagard S-D (IgA < 1 mcg/mL) 5 gram recon soln 40 g IV Q3W Fasenra 30 mg/mL syringe 30 mg subcut Q8W ipratropium bromide 42 mcg (0.06 %) spray,non-aerosol 2 spray intranasal DAILY (DME) pen needle, diabetic [Easy Comfort Pen [place]] 33 gauge x 5/32 needle See Rx Instructions .Route Qty: 100 5RF Rx Instructions: As directed inmjects 4 X/day clotrimazole 10 mg jacinta 10 mg mucous membrane TID PRN (Reason: THRUSH) (DME) nebulizers Misc See Rx Instructions .Route Rx Instructions: As directed
[2023-11-21] MEDS: ondansetron HCL 4 MG/2 ML VIAL IVPUSH ×2 (14:58→23:25)
[2023-11-21] MEDS: Omeprazole 40 MG CAPSULE.DR PO (16:49)
[2023-11-21] MEDS: Levothyroxine Sodium 112 MCG TABLET 224 MCG PO (20:28)
[2023-11-21] MEDS: Magnesium Hydrox/Alum Hydrox 30 ML ORAL.SUSP PO (20:28)
[2023-11-21] MEDS: Losartan Potassium 25 MG TABLET PO (20:28)
[2023-11-21] MEDS: Montelukast Sodium 10 MG TABLET PO (20:29)
[2023-11-21 21:30] LABS: Glucose, Whole Blood 193 mg/dL (60-115)
[2023-11-21] MEDS: HYDROmorphone HCl 2 MG/ML VIAL 1 MG IVPUSH (23:25)
[2023-11-21] MEDS: Calcium Carbonate 750 MG TAB.CHEW 1500 MG PO (23:33)
[2023-11-22] MEDS: Magnesium Hydrox/Alum Hydrox 30 ML ORAL.SUSP PO ×2 (01:29→06:27)
[2023-11-22 03:43] VITALS: BP 152/72; PULSE 66; RESP 18; TEMP 36.6; O2SAT 97
[2023-11-22] MEDS: Piperacillin Sodium/Tazobactam 4.5 GM in 0.9 % Sodium Chloride 100 ML IV ×2 (03:50→09:15)
[2023-11-22] MEDS: Prochlorperazine Edisylate 10 MG/2 ML VIAL 5 MG IVPUSH (03:58)
[2023-11-22 05:57] LABS: Glucose, Whole Blood 133 mg/dL (60-115)
[2023-11-22] MEDS: Pantoprazole Sodium 40 MG/10 ML VIAL IVPUSH (06:27)
[2023-11-22] MEDS: Omeprazole 40 MG CAPSULE.DR PO (06:27)
[2023-11-22 06:56] VITALS: BP 149/86; PULSE 67; RESP 18; TEMP 35.7; O2SAT 95
[2023-11-22] MEDS: carvediloL 6.25 MG TABLET PO (08:20)
[2023-11-22] MEDS: pyRIDostigmine bromide 60 MG TABLET PO (08:20)
[2023-11-22] MEDS: HYDROmorphone HCl 2 MG/ML VIAL 1 MG IVPUSH (08:20)
[2023-11-22] MEDS: Loratadine 10 MG TABLET PO (08:20)
[2023-11-22] MEDS: 0.9 % Sodium Chloride Flush 3 ML SYRINGE IVFLUSH (08:21)
[2023-11-22] MEDS: ondansetron HCL 4 MG/2 ML VIAL IVPUSH (08:23)
[2023-11-22 11:06] VITALS: BP 138/68; PULSE 60; RESP 18; TEMP 36.2; O2SAT 96
[2023-11-22 11:37] LABS: Glucose, Whole Blood 303 mg/dL (60-115)
[2023-11-22] MEDS: Insulin Lispro 100 UNIT/ML 3 ML VIAL SUBCUT (12:17)
--- NOTE | 2023-11-22 13:11 | PM.DS ---
DS: Providers Provider Date of Service: 11/22/23 Date of admission: 11/19/23 20:36 Date of discharge: 11/22/23 Primary care physician: Cassius Strong MD Consults: 11/19/23 20:35 Consult to Gastroenterology Routine Consulting Provider: Tyesha Mcgill Reason for consultation: GI bleed Consult to General Surgery [place]ine Consulting [place] [facility] [place] [facility] Reason for consultation: low gb ef ; functional gb disorder DS: Diagnosis Discharge Diagnosis (1) Right upper quadrant pain: Status: Acute DS: Summary Hospital Course Hospital Course: History and physical as per admitting provider. This is a 52-year-old female with pertinent history of essential hypertension, mixed hyperlipidemia, insulin-dependent type 2 diabetes mellitus, asthma not on home oxygen, hypothyroidism, mood disorder, chronic pain syndrome on chronic opioids, hypogammaglobulinemia on IVIG who presents to the emergency department for evaluation of abdominal discomfort and dark colored stools. Patient was admitted on 09/26 for evaluation of acute GI bleed. She went upper endoscopy which showed large varices and required variceal banding x5. Patient was asked to abstain from NSAIDs. Patient states that since discharge (09/30/2023) patient has been having loose stools every day. It is associated with upper abdominal discomfort which is constant, nonradiating and worse with p.o. intake. About 24 hours prior to presentation, patient states she started noticing dark-colored stools. She had about 6-7 episodes in the last 24 hours. Also had 1 episode of nonbloody emesis. States she has been on iron supplementation since the last 2 months but the stool color changed one day prior to presentation. No fever, chills, chest discomfort, palpitations, changes in urinary habits. In the emergency department, imaging with pancolitis and HIDA scan with low gallbladder ejection fraction. 52-year-old woman admitted for acute GI bleeding. Started on IV Protonix, imaging showing franklin colitis, treated with IV Zosyn. No stool studies obtained due to no stool. Status post colonoscopy and endoscopy. 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 Biopsies taken, repeat colonoscopy 1-2 years, repeat EGD in 4-6 weeks. Hypertension. Continue losartan and carvedilol Diabetes mellitus type 2. Continue home regimen Chronic pain syndrome. Continue home Dilaudid Hypothyroidism. Continue Synthroid Hyperlipidemia. Continue statin Time Attestation Discharge coordination time: Greater than 30 minutes Quality: Safe Use of Opioids Does Pt have an Active Cancer Diagnosis on the Problem List?: No Quality: Stroke Does the patient have a stroke diagnosis?: No Physical Exam Vital Signs: Vital Signs: Last Vital Signs Temp 97.2 F 11/22/23 11:06 Pulse 60 11/22/23 11:06 Resp 18 11/22/23 11:06 BP 138/68 11/22/23 11:06 Pulse Ox 96 11/22/23 11:06 O2 Del Method Room Air 11/22/23 11:06 O2 Flow Rate 2 11/21/23 15:30 BMI result Body Mass Index 36.9 Const: Other: Awake alert no acute distress Resp: Other: Clear to auscultation bilaterally no rales rhonchi or wheezes Cardio: Other: No S4; positive S1-S2; no S3 murmurs rubs or gallops GI: Other: Soft nontender nondistended normoactive bowel sounds Extrem: Other: No edema bilaterally DS: Data Data Completed and Pending Completed studies during hospitalization [Text1]: Procedures Control Bleeding in Gastrointestinal Tract, Via Natural or Artificial Opening Endoscopic (09/26/23) Excision of Stomach, Pylorus, Via Natural or Artificial Opening Endoscopic, Diagnostic (09/26/23) Introduction of Mineral-based Topical Hemostatic Agent into Upper GI, Via Natural or Artificial Opening Endoscopic, [employer] 6 (09/26/23) Introduction of Other Therapeutic Substance into Upper GI, Via Natural or Artificial Opening Endoscopic (09/26/23) Occlusion of Esophageal Vein with Extraluminal Device, Via Natural or Artificial Opening Endoscopic (09/26/23) Transfusion of Nonautologous Red Blood Cells into Peripheral Vein, Percutaneous Approach (09/26/23) Pending studies at discharge: Pending at discharge 11/21/23 14:03 Surgical [PTH] Routine Labs on day of discharge: Laboratory Results - last 24 hr 11/21/23 11/22/23 11/22/23 21:28 05:53 11:31 POC Glucose 193 H 133 H 303 H Preliminary micro results at discharge 11/20/23 11:12 Blood Culture - Preliminary Blood - Venous No growth after 24 hours. 11/20/23 11:12 Blood Culture - Preliminary Blood - Venous No growth after 24 hours. Discharge Plan Discharge Anticipated Discharge Date/Time: 11/22/23 13:08 Patient Disposition: Home, Self-Care Discharge Diagnosis: Pancolitis GI bleed Referrals: Cassius Strong MD [Primary Care Provider] - 1 Week Discharge Medications: New omeprazole 40 mg capsule,delayed release(DR/EC) 40 mg PO DAILY Qty: 30 1RF Continued (DME) lancets [FreeStyle Lancets] 28 gauge misc See Rx Instructions .MEDSUPPLY Qty: 150 4RF Rx Instructions: 5 times a day (DME) blood pressure monitor Kit See Rx Instructions .Route Qty: 1 0RF Rx Instructions: As directed Fiasp FlexTouch U-100 Insulin 100 unit/mL (3 mL) insulin pen See Rx Instructions subcut .COMPLEX 30 Days Qty: 150 5RF Rx Instructions: Inject 5 to 20 units SQ before meals and snacks, FOUR TIMES A DAY atorvastatin 40 mg tablet 40 mg PO BEDTIME Qty: 90 1RF montelukast 10 mg tablet 10 mg PO BEDTIME 90 Days Qty: 90 3RF calcium citrate 250 mg calcium tablet 500 mg PO BID 30 Days Qty: 120 5RF (DME) DIABETIC SHOES See Rx Instructions .Route .MEDSUPPLY Qty: 1 0RF Rx Instructions: DIABETIC SHOES - 1 PAIR - use as directed -- Dx: E11.9 -- diabetes mellitus ferrous sulfate [FeroSul] 325 mg (65 mg iron) tablet 325 mg PO DAILY Qty: 90 1RF losartan 25 mg tablet 25 mg PO BEDTIME 90 Days Qty: 90 3RF Hold Instructions: Doctor's Order levothyroxine [Synthroid] 112 mcg tablet 224 mcg PO DAILY Qty: 60 2RF tizanidine 2 mg tablet 2 mg PO TID PRN (Reason: for muscle spasm) Qty: 90 0RF hydromorphone 2 mg tablet 2 mg PO TID PRN (Reason: pain) 7 Days Qty: 21 0RF levalbuterol tartrate [Xopenex HFA] 45 mcg/actuation HFA aerosol inhaler 2 puff inhalation Q6H PRN (Reason: shortness of breath or wheezing) 30 Days Qty: 15 11RF ondansetron 8 mg tablet,disintegrating 8 mg PO Q8H PRN (Reason: nausea and vomiting) 10 Days Qty: 30 1RF (DME) FreeStyle Lite Strips Strip See Rx Instructions .Route Qty: 100 5RF Rx Instructions: As directed- checks 4-5 X/day pyridostigmine bromide 60 mg tablet 60 mg PO TID loratadine 10 mg Tablet 10 mg PO DAILY cholecalciferol (vitamin D3) 50 mcg (2,000 unit) capsule 100 mcg PO BEDTIME metformin 500 mg tablet extended release 24 hr 1,000 mg PO BID@0900,1700 omeprazole 40 mg capsule,delayed release(DR/EC) 40 mg PO BID Qty: 180 0RF carvedilol 6.25 mg Tablet 6.25 mg PO DAILY@1500 PRN (Reason: high blood pressure) Rx Instructions: must administer with a meal/food Pepto-Bismol 262 mg Tablet 2 mg PO DAILY PRN (Reason: Diarrhea) carvedilol 6.25 mg tablet 6.25 mg PO DAILY Protocol: Hold for SBP/HR < HOLD for SBP < : 90 HOLD for HR < : 60 Gammagard S-D (IgA < 1 mcg/mL) 5 gram recon soln 40 g IV Q3W Fasenra 30 mg/mL syringe 30 mg subcut Q8W ipratropium bromide 42 mcg (0.06 %) spray,non-aerosol 2 spray intranasal DAILY (DME) pen needle, diabetic [Easy Comfort Pen [place]] 33 gauge x 5/32 needle See Rx Instructions .Route Qty: 100 5RF Rx Instructions: As directed inmjects 4 X/day clotrimazole 10 mg jacinta 10 mg mucous membrane TID PRN (Reason: THRUSH) (DME) nebulizers Misc See Rx Instructions .Route Rx Instructions: As directed Discharge Orders: Discharge Order (Routine); Ordered 11/22/23 Ordered By: Heron Porras Diet: Advance to usual diet Activity on Discharge: As tolerated Stand Alone Forms: Patient Portal Discharge page Care Plan Goals: Monitor for any further episodes of bleeding Health Concerns: Pancolitis GI bleed Plan of Treatment: Follow-up with gastroenterology, will need repeat endoscopy Take all medications as prescribed Assessment: See discharge summary
--- NOTE | 2023-11-22 13:20 | MHC.CM.PN ---
Patient has been medically cleared for dc to home today, self care. Last IMM addressed on 11/20/2023.
[2023-11-22] MEDS: Nystatin Powder 15 GM BOTTLE 1 APPL TOPICAL (13:22)
--- NOTE | 2023-11-22 15:21 | HO.POSTANES ---
Post Anesthesia Evaluation Post Anesthesia Evaluation Date of Service: 11/22/23 Vital Signs: Vital Signs Temp Pulse Resp BP Pulse Ox O2 Del Method 11/22/23 11:06 97.2 F 60 18 138/68 96 Room Air 11/22/23 06:56 96.2 F L 67 18 149/86 H 95 Room Air 11/22/23 03:43 97.9 F 66 18 152/72 H 97 Room Air Anesthesia: Monitored Mental Status: Awake Pain Control: Satisfactory Nausea/Vomiting: None Hydration: Adequate Anesthesia-Related Issues: No Anes. Related Issues
== END 2023-11-22 14:39 | disposition home or self-care (01) | DRG 441 ==
LOC: HO.ED 20:33 → HO.EDOVER 20:53 → HO.IMC 11-20 17:24
PROVIDERS: Internal Medicine Gastroenterology; Nurse Practitioner Acute Care; Student in an Organized Health Care Education/Training Program; Admitting Provider Student in an Organized Health Care Education/Training Program; Emergency Provider Internal Medicine; PCP Internal Medicine; Visit Provider Hospitalist
PROC: 06L38CZ Occlusion of Esophageal Vein with Extraluminal Device, Via Natural or Artificial Opening Endoscopic (ICD-10-PCS; principal; 2023-11-21 14:00)
DX: K75.81 Nonalcoholic steatohepatitis (NASH) (principal); I85.11 Secondary esophageal varices with bleeding; D80.1 Nonfamilial hypogammaglobulinemia; K76.6 Portal hypertension; K31.89 Other diseases of stomach and duodenum; K31.7 Polyp of stomach and duodenum; K64.8 Other hemorrhoids; E11.65 Type 2 diabetes mellitus with hyperglycemia; E78.2 Mixed hyperlipidemia; K74.60 Unspecified cirrhosis of liver; K52.9 Noninfective gastroenteritis and colitis, unspecified; E03.9 Hypothyroidism, unspecified; G89.4 Chronic pain syndrome; Z20.822 Contact with and (suspected) exposure to COVID-19; Z91.040 Latex allergy status; Z79.4 Long term (current) use of insulin; Z79.890 Hormone replacement therapy; Z79.899 Other long term (current) drug therapy
CPT/HCPCS: 36415; 74178; 76705; 78227; 80048; 80053; 81001; 82272; 82947; 83605; 85014; 85018; 85025; 85027; 85610; 86850; 86900; 86901; 87040; 87086; 87635; 88305; 88342; 93005; 99285; A9537; C9113; J0737; J1170; J2405; J2543; J2550; J2704; J2805; J3010; J7120; Q9967

== ENCOUNTER → 2023-11-19 08:22 | Outpatient (BNV) | payer OTHER, SELFPAY | PROVIDERS: Admitting Provider Student in an Organized Health Care Education/Training Program; Emergency Provider Internal Medicine; PCP Internal Medicine; Visit Provider Internal Medicine | DX: R00.0 Tachycardia, unspecified (principal); R94.31 Abnormal electrocardiogram [ECG] [EKG] | CPT/HCPCS: 93010 ==

== ENCOUNTER → 2023-11-19 08:46 | Outpatient (BNV) | payer OTHER, SELFPAY | PROVIDERS: Emergency Provider Internal Medicine; PCP Internal Medicine; Visit Provider Student in an Organized Health Care Education/Training Program | DX: E11.65 Type 2 diabetes mellitus with hyperglycemia (principal); K92.2 Gastrointestinal hemorrhage, unspecified | CPT/HCPCS: 99223; 99232; 99239 ==

== ENCOUNTER → 2023-11-19 20:36 | Outpatient (BNV) | payer OTHER, SELFPAY | PROVIDERS: Admitting Provider Student in an Organized Health Care Education/Training Program; Emergency Provider Internal Medicine; PCP Internal Medicine; Visit Provider Internal Medicine | DX: I85.01 Esophageal varices with bleeding (principal); K31.7 Polyp of stomach and duodenum; K31.89 Other diseases of stomach and duodenum; K92.1 Melena; R19.7 Diarrhea, unspecified; K64.0 First degree hemorrhoids | CPT/HCPCS: 43244; 43251; 45380; 99222 ==

== ENCOUNTER → 2023-11-24 14:04 | Outpatient (BNV) | payer OTHER, SELFPAY | PROVIDERS: PCP Internal Medicine; Visit Provider Internal Medicine | DX: D64.9 Anemia, unspecified (principal) | CPT/HCPCS: 99204; 99213 ==

== ENCOUNTER 2023-11-29 10:55 | Outpatient (AMB) | payer OTHER, SELFPAY ==
--- NOTE | 2023-11-29 10:58 | MHC.PC.OV ---
Vital Signs 11/29/23 10:59 Height 5 ft 4 in Weight 210 lb 4 oz BMI 36.1 BP 130/82 Blood Pressure Location Lt brachial Position Sitting Pulse 75 Pulse Source Pulse Oximeter Pulse Oximetry (%) 96 Oxygen Delivery Method Room Air Intake Visit Reasons: [facility] [place] Required: No Accompanied by: Self / Same As Patient Allergies cephalexin Allergy (Severe, Verified 12/03/23 21:06) Difficulty Breathing latex [LATEX] Allergy (Severe, Verified 12/03/23 21:06) Difficulty Breathing levofloxacin [From LEVAQUIN] Allergy (Severe, Verified 12/03/23 21:06) SHORTNESS OF BREATH, RASH, rash morphine [MORPHINE] Allergy (Severe, Verified 12/03/23 21:06) RASH, asthma exacerbation, rash baclofen [BACLOFEN] Allergy (Intermediate, Verified 12/03/23 21:06) Rash celecoxib [Celebrex] Allergy (Intermediate, Verified 12/03/23 21:06) itching, rash, flushing prednisone [PREDNISONE] Allergy (Intermediate, Verified 12/03/23 21:06) RASH, asthma exacerbation, rash codeine Allergy (Unknown, Verified 12/03/23 21:06) Rash gluten [GLUTEN] Allergy (Unknown, Verified 12/03/23 21:06) UNKNOWN oxycodone Allergy (Unknown, Verified 12/03/23 21:06) rash ranitidine Allergy (Unknown, Verified 12/03/23 21:06) unknown roflumilast [Daliresp] Allergy (Unknown, Verified 12/03/23 21:06) rash tramadol [TRAMADOL] Allergy (Unknown, Verified 12/03/23 21:06) RASH,SHORTNESS OF BREATH AND HEADACHE, asthma exacerbation, rash celery Allergy (Verified 12/03/23 21:06) Rash cyclobenzaprine [From Flexeril] Allergy (Verified 12/03/23 21:06) Rash and asthma exacerbation environmental allergies Allergy (Verified 12/03/23 21:06) Cleaning products cause asthma attack pineapple Allergy (Verified 12/03/23 21:06) Rash strawberry Allergy (Verified 12/03/23 21:06) Rash sulfamethoxazole [From Bactrim] Adverse Reaction (Intermediate, Verified 12/03/23 21:06) vertigo trimethoprim [From Bactrim] Adverse Reaction (Intermediate, Verified 12/03/23 21:06) vertigo diazepam [From Valium] Adverse Reaction (Verified 12/03/23 21:06) Cough Medication List - Last Reconciled 12/03/23 by Cassius Strong MD atorvastatin 40 mg PO BEDTIME benralizumab (Fasenra) 30 mg subcut Q8W bismuth subsalicylate (Pepto-Bismol) 2 mg PO DAILY PRN blood pressure monitor As directed blood sugar diagnostic (FreeStyle Lite Strips) As directed- checks 4-5 X/day calcium citrate 500 mg (2 x 250 mg calcium) PO BID 30 days carvedilol 6.25 mg PO DAILY@1500 PRN cholecalciferol (vitamin D3) 100 mcg PO BEDTIME clotrimazole 10 mg mucous membrane TID PRN [DIABETIC SHOES DIABETIC SHOES - 1 PAIR - use as directed -- Dx: E11.9 -- diabetes mellitus] ferrous sulfate (FeroSul) 325 mg PO DAILY Fiasp FlexTouch U-100 Insulin 100 unit/mL (3 mL) (insulin aspart (niacinamide)) Inject 5 to 20 units SQ before meals and snacks, FOUR TIMES A DAY 30 days NS hydromorphone 2 mg PO TID PRN 7 days immun glob M-bya-qmwh-IgA 0-50 5 gram (Gammagard S-D (IgA < 1 mcg/mL)) 40 grams IV Q3W ipratropium bromide 2 sprays intranasal DAILY lancets (FreeStyle Lancets) 5 times a day levalbuterol tartrate 45 mcg/actuation (Xopenex HFA) 2 puffs inhalation Q6H PRN 30 days loratadine 10 mg PO DAILY losartan 25 mg PO BEDTIME 90 days metformin ER 1,000 mg PO BID@0900,1700 montelukast 10 mg PO BEDTIME 90 days nebulizers As directed nystatin (Nystop) 1 appl topical TID omeprazole 40 mg PO BID ondansetron 8 mg PO Q8H PRN 10 days pen needle, diabetic (Easy Comfort Pen [place]) As directed inmjects 4 X/day pyridostigmine bromide 60 mg PO TID Synthroid (levothyroxine) 224 mcg (2 x 112 mcg) PO DAILY NS tizanidine 2 mg PO TID PRN Tobacco use date assessed: 11/29/23 Dental Screening Dental Screen Date: 11/29/23 Did you have a dental visit in the last 12 months?: No Did you have a dental problem in the last 6 months where you did not have access to dental care?: No Was dental information given to patient?: No HPI [facility] [place] HPI Details Patient comes in today for her HDF follow up visit He was admitted to [facility] for a few days last week when she presented to the ER with increasing abdominal discomfort and dark-colored stools Relates that she's also had loose stools since her admission back in September 2023 for GI bleeding and threw up once recently but there were no blood noted in her vomitus Of note, patient had an EGD done back in September 2023 that revealed large esophageal varices that required banding x 5 to stop the bleeding Work ups done at the ER include abdominal / pelvic CT which revealed (+) pancolitis and HIDS scan revealed (+) biliary dyskinesia with low GB ejection fraction She was started on IV Protonix and IV Zosyn for her pancolitis on admission She also underwent repeat EGD and colonoscopy for further evaluation of her symptoms - EGD revealed findings of gastric polyps, portal hypertensive gastropathy and esophageal varices Colonoscopy revealed (+) internal hemorrhoids and 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 Biopsies taken during colonoscopy came back benign but she is recommended to undergo a repeat colonoscopy in 1 to 2 years States that she has been experiencing a significant increase in her lower back pain lately and that her current meds sometimes do not help much; has also been taken off all NSAIDs, including her Celebrex Needs her Hydromorphone Rx refilled States that she has not had any recurrence of her dark-colored stool lately and her abdominal pain/discomfort have gradually resolved She denies any headaches or dizziness Denies any chest pains, no increased SOB Still has occasional nausea but no vomiting Would like to get a refill on her Nystatin powder for the recurrent itchy rash under her breasts Would also like to get a refill on her diabetic shoes [facility] Medical History Anemia Chronic restrictive lung disease Brugada syndrome Shortness of breath Encounter for care related to Port-a-Cath Tinea pedis Recurrent cellulitis of lower extremity CHARLES (obstructive sleep apnea) Hypogammaglobulinemia Asthma Cellulitis of both lower extremities Right hip pain Lumbar degenerative disc disease Benign essential hypertension Obesity (BMI 30-39.9) Mitochondrial myopathy Asthma Diabetes mellitus History of revision of total replacement of right hip joint (~12/2019) Acquired hypothyroidism Pain of both hip joints Pure hypercholesterolemia Hx of cataract HTN (hypertension) Osteopenia Hypothyroidism Osteoarthritis of hip Gastritis Surgical History History of removal of Port-a-Cath History of total right hip arthroplasty (~06/03/19) History of eye surgery (~09/2017) History of hip surgery Hx of foot surgery (~01/02/19) History of removal of cyst Hx of left knee surgery History of elbow surgery (~07/2016) Hx of thumb surgery Hx of appendectomy Hx of hysterectomy (~07/2011) Hx of bilateral breast reduction surgery Family History Father Leukemia Mother Hypertension Diabetes Sister Alive and well Brother Pancreatic cancer Paternal Grandmother Stomach cancer Paternal Grandmother Throat cancer Social History Household Members: Family and Children Housing: Apartment Do you presently have visiting nurse or other home services: No Alcohol intake: former Comment: refused bed alarm Patient Tobacco Use Status: Never used Tobacco e-Cigarette/Vaping Use: Never Used Second Hand Smoke Exposure: No Advance Directives Date on File: 10/02/23 service: No Current occupational status: disabled Cognitive needs: No Hearing needs: No Vision needs: No Questionnaire PHQ-9 Over the last 2 weeks, how often have you been bothered by any of the following problems? 1. Little interest or pleasure in doing things: not at all 2. Feeling down, depressed, or hopeless: not at all 3. Trouble falling or staying asleep, or sleeping too much: not at all 4. Feeling tired or having little energy: not at all 5. Poor appetite or overeating: not at all 6. Feeling bad about yourself - or that you are a failure or have let yourself or your family down: not at all 7. Trouble concentrating on things, such as reading the newspaper or watching television: not at all 8. Moving or speaking so slowly that other people could have noticed. Or the opposite - being so fidgety or restless that you have been moving around a lot more than usual: not at all 9. Thoughts that you would be better off or of hurting yourself in some way: not at all Total score: 0 Depression Screening Interpretation: Negative Depression Screening Done: Yes [id number] - PHQ-9 Billing: Yes Source: Developed by Drs. Babak Mcintosh, Savannah Vera, Christian Crowell and colleagues, with an educational sarah from [employer]. Thrive Questionnaire Date Thrive assessed: 11/29/23 I am a: Patient What is your living situation today?: I have a steady place to live Within the past 12 months, did the food you bought not last and you didn't have the money to get more?: Never true Within the past 12 months, did you worry whether your food would run out before you got money to buy more?: Never true Do you have trouble paying for medicines?: No Do you have trouble getting transportation to medical appointments?: No Do you have trouble paying your heating and electricity bill?: No Do you have trouble taking care of your child, family member or friend?: No Do you have trouble with day-to-day activities such as bathing, preparing meals, shopping, managing finances, etc.?: No Are you currently unemployed and looking for a job?: No Are you interested in more education?: No Please select the resources that you would like help with: None Currently or been in a relationship where the following occur: no concerns reported THRIVE Score: 0 AUDIT C Alcohol Use Questionnaire (AUDIT-C) 1. How often do you have a drink containing alcohol?: Never 3. How often do you have six or more drinks on one occasion?: Never Total Score: 0 Score Reviewed/Action Taken: Yes REI-7 AMB Questionnaire REI-7 Date REI - 7 assessed: 11/29/23 Feeling nervous, anxious, or on edge: 0 = Not at all Not being able to stop or control worryin = Not at all Worrying too much about different things: 0 = Not at all Trouble relaxin = Not at all Being so restless that it is hard to sit still: 0 = Not at all Becoming easily annoyed or irritable: 0 = Not at all Feeling afraid as if something awful might happen: 0 = Not at all Total REI-7 score (0-4 normal; 5-9 mild; 10-14 moderate; 15-21 severe): 0 Source: Developed by Drs. Babak Mcintosh, Savannah Vera, Christian Crowell and colleagues, with an educational sarah from [employer]. Review of Systems Const Denies chills, Reports fatigue, Denies fever(s) and Denies headache(s) ENT Denies dysphagia, Denies dizziness, Denies otalgia, Denies headache(s), Denies neck pain, Denies odynophagia and Denies sore throat Card Denies chest pain, Denies palpitations and Reports dyspnea on exertion (mild) Resp Denies cough, Reports dyspnea on exertion (mild) and Denies wheezing GI Denies abdominal pain, Denies melena, Denies hematochezia, Denies constipation, Denies dysphagia, Denies heartburn, Denies diarrhea, Reports nausea (on and off), Denies odynophagia and Denies vomiting Denies nocturia, Denies dysuria and Denies urinary urgency Musc Reports back pain (over the lumbar spine - chronic), Reports arthralgias (involving multiple joints, including both hips and knees) and Denies neck pain Skin/Breast Denies rash Neuro Denies dizziness and Denies headache(s) Endo Reports fatigue and Denies palpitations Aller/Immun Denies wheezing Physical exam (Primary Care) Vital Signs: Last Vital Signs Pulse 75 11/29/23 10:59 BP 130/82 11/29/23 10:59 Pulse Ox 96 11/29/23 10:59 Oxygen Delivery Method Room Air 11/29/23 10:59 BMI result Body Mass Index 36.1 Tobacco/Smoking Status: Tobacco use Status Tobacco use date assessed 11/29/23 11/29/23 11:00 Patient Tobacco Use Status Never used Tobacco 11/29/23 11:00 e-Cigarette/Vaping Use Never Used 11/29/23 11:00 PHQ-9: PHQ-9 Score PHQ-9: Total score 0 11/29/23 12:02 Depression Screening Interpretation: Negative Thrive Assessment: Date of Thrive Assessment Date Thrive assessed 11/29/23 11/29/23 11:00 Currently or been in a relationship where the following occur: no concerns reported Const General: no acute distress and alert HENMT Ears: TM's normal bilaterally and EAC's normal Throat: Yes posterior oropharynx normal and Yes tonsils normal (no TP congestion noted) Neck Neck: Yes no lymphadenopathy and Yes supple Thyroid: Thyroid normal Resp Auscultation: clear to auscultation bilaterally, no rales and no wheezes Cardio Rate: regular rate Rhythm: regular rhythm Heart sounds: no murmurs GI Palpation (GI): Soft to palpation, nontender and no guarding Auscultation: normal bowel sounds Back/Spine/Pelvis Thoracic/Lumbar Spine: lumbar spinal tenderness Skin Rashes: no rashes Extrem General: Yes no clubbing, cyanosis or edema Right lower extremity: hip/thigh Details: tenderness Location: of the hip and knee Details: tenderness; no swelling Left lower extremity: hip/thigh Details: tenderness Location: of the hip and knee Details: tenderness; no swelling Assessment and Plan Assessment & Plan (1) Upper GI bleed: Code(s): K92.2 - Gastrointestinal hemorrhage, unspecified Plan: EGD done by Dr. Delarosa in September 2023 revealed (+) large varices that required banding x 5 and hemospray application Patient also had a gastric polyp that was removed surgically She was reminded to avoid all NSAIDs Continue Omeprazole 40 mg BID; continue Carvedilol 6.25 mg BID for hypertensive portal gastropathy Repeat EGD done during her last admission a week ago, revealed (+) gastric polyps (pathology came back benign), portal hypertensive gastropathy and esophageal varices Repeat colonoscopy showed (+) internal hemorrhoids and 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 (2) Anemia: Code(s): D64.9 - Anemia, unspecified Qualifiers: Anemia type: unspecified type Qualified Code(s): D64.9 - Anemia, unspecified Plan: Is again due to recent GI bleeding Patient received 2 units of PRBC during her recent hospital stay in September 2023; did not need transfusion during her admission last week Her H/H were still low at 9.6/30.1 when last checked a week ago Continue Ferrous Sulfate 325 mg QD Will have her recheck her CBC in a few weeks for follow up (3) Diabetes mellitus: Code(s): E11.9 - Type 2 diabetes mellitus without complications Qualifiers: Diabetes mellitus type: type 2 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 Mahan) as scheduled (4) Benign essential hypertension: Code(s): I10 - Essential (primary) hypertension Plan: Reinforced low sodium diet - goal is systolic BP of at least 120 to 130 mm or less She was started on Carvedilol 6.25 mg BID in September 2023 for her hypertensive portal gastropathy and her Metoprolol was discontinued Her Losartan 25 mg QD was HELD a few weeks ago due to low BP and recurrent dizziness - her BP seems to have gone up somewhat since and we may need to start her back on Losartan if her BP continues to stay high Patient is reminded to continue monitoring her blood pressure regularly (5) Pure hypercholesterolemia: Code(s): E78.00 - Pure hypercholesterolemia, unspecified Plan: Reinforced low cholesterol diet Continue Atorvastatin 40 mg QD (6) Asthma: Code(s): J45.909 - Unspecified asthma, uncomplicated Qualifiers: Asthma severity: moderate Asthma persistence: persistent Asthma complication type: uncomplicated Qualified Code(s): J45.40 - Moderate persistent asthma, uncomplicated Plan: Stable Continue Montelukast 10 mg once a day in the evening, Spiriva Respimat 20-100 mcg 1 inhalation 4 times a day, Ventolin HFA 2 puffs 4 times a day as needed and DuoNeb nebulizer solution 3 mL via nebulizer 4 times a day as needed Continue Fasenra 30 mg subcutaneous injection every 8 weeks Follow up with pulmonary as scheduled (7) Acquired hypothyroidism: Code(s): E03.9 - Hypothyroidism, unspecified Plan: Continue Synthroid 224 mcg QD (8) Mitochondrial myopathy: Code(s): G71.3 - Mitochondrial myopathy, not elsewhere classified Plan: Continue Mestinon tablets 60 mg 4 times a day Patient also receives Gammagard infusion 40 mg IV every 3 weeks but she had to have her port-a-cath removed a few months ago due to blockage Follow up with Dr. Cobian and with neurology as scheduled for continuing management (9) Lumbar degenerative disc disease: Code(s): M51.36 - Other intervertebral disc degeneration, lumbar region Plan: Reinforced activity and weight-lifting restrictions Continue Hydromorphone 2 mg 3 times a day as needed - Rx refilled Patient used to go to [facility] but is now requesting to be seen at pain management here - referral done (10) Right hip pain: Comment: S/P right hip arthroplasty by Dr. Simon on 06/03/2019 (due to avascular necrosis), then S/P revision of right hip in 12/2019 Code(s): M25.551 - Pain in right hip Plan: Continues to experience increased pain in her right hip despite her arthroplasty followed by revision surgery in 2019 Follow up with orthopedics ([facility]) as scheduled Recalls getting some hip x-rays done at [facility] a few months ago but does not know how her x-rays came out To consider again referral to pain management if her pain progresses (11) Intertrigo: Code(s): L30.4 - Erythema intertrigo Plan: Will start patient again on Nystatin cream [id number] units/gm apply TID (12) Obesity (BMI 30-39.9): Code(s): E66.9 - Obesity, unspecified Plan: Reinforced diet; exercise and weight loss are currently unrealistic expectations due to her multiple comorbidities Plan Follow up as scheduled in December 2023 Orders: Referrals Pain Management Referral M54.50 - Low back pain, unspecified Medications: New nystatin (Nystop) 1 appl topical TID 60 grams 1RF Refilled [DIABETIC SHOES] DIABETIC SHOES - 1 PAIR - use as directed -- Dx: E11.9 -- diabetes mellitus 1 ea 0RF E11.9 - Type 2 diabetes mellitus without complications hydromorphone 2 mg PO TID 7 days PRN 21 tabs 0RF pain M51.36 - Other intervertebral disc degeneration, lumbar region Coding Level of Care Code Est Pt Level 4 (73605) Diagnoses Upper GI bleed K92.2 Anemia, unspecified type D64.9 Anemia type: unspecified type Type 2 diabetes mellitus without complication, without long-term current use of insulin E11.9 Diabetes mellitus type: type 2 Diabetes mellitus 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
[2023-11-29 10:59] VITALS: BP 130/82; PULSE 75; O2SAT 96; BMI 36.1
== END 2023-11-29 12:05 | disposition home or self-care (01) ==
PROVIDERS: PCP Internal Medicine; Visit Provider Internal Medicine
DX: E11.9 Type 2 diabetes mellitus without complications (principal); E66.9 Obesity, unspecified; K92.2 Gastrointestinal hemorrhage, unspecified; Z68.36 Body mass index [BMI] 36.0-36.9, adult; D64.9 Anemia, unspecified; I10 Essential (primary) hypertension; E78.00 Pure hypercholesterolemia, unspecified; J45.40 Moderate persistent asthma, uncomplicated; E03.9 Hypothyroidism, unspecified; G71.3 Mitochondrial myopathy, not elsewhere classified; M51.36 Other intervertebral disc degeneration, lumbar region; M25.551 Pain in right hip
CPT/HCPCS: 99214

== ENCOUNTER 2023-12-13 11:55 | Outpatient (REF) | payer OTHER, SELFPAY ==
[2023-12-13 12:09] LABS: MANUAL DIFF FLAG NO
[2023-12-13 13:13] LABS: Hematocrit 32.5 % (37.0-47.0); Hemoglobin 10.3 g/dl (12.0-16.0); Imm Gran Abs Auto 0.02 X10*3/uL (0.00-0.03); Imm Gran Pct Auto 0.4 % (0.0-0.4); Lymphocytes Absolute Auto 1.4 X10*3/uL (1.2-4.9); Mean Corpuscular HGB Conc 31.7 g/dl (31.0-35.0); Mean Corpuscular Hemoglobin 25.6 pg (27.0-33.0); Mean Corpuscular Volume 80.6 fL (80.0-98.0); Mean Platelet Volume 11.3 fL (9.4-12.3); Monocytes Absolute Auto 0.4 X10*3/uL (0.1-1.2); Monocytes Percent Auto 8.2 % (2-11); Neutrophils Absolute Auto 3.1 x10*3/uL (2.0-8.3); Neutrophils Percent Auto 62.4 % (45-73); Platelet Count 125 X10*3/uL (160-400); Red Blood Count 4.03 X10*6/uL (4.20-5.50); Red Cell Distribution Width 13.7 % (11.0-16.0); White Blood Count 4.9 X10*3/uL (4.8-10.8)
[2023-12-13 13:52] LABS: Alanine Aminotransferase 40 U/L (0-31); Albumin Level 4.2 g/dL (3.5-5.0); Alkaline Phosphatase 104 U/L (39-117); Anion Gap 12 (12-20); Aspartate Amino Transferase 30 U/L (5-31); Bilirubin Total 0.8 mg/dL (0.0-1.0); Blood Urea Nitrogen 14 mg/dL (9-16); Calcium 9.5 mg/dL (8.4-10.2); Carbon Dioxide 26 mmol/L (22-29); Chloride 104 mmol/L (96-108); Cholesterol 126 mg/dL (<200); Estimated Glomerular Filt Rate > 60; Glucose Fasting 170 mg/dL (60-99); HDL Cholesterol 38 mg/dL (>40); LDL Cholesterol Calculated 69 mg/dL (<100); Potassium 3.9 mmol/L (3.3-5.1); Sodium 138 mmol/L (135-145); Total Protein 7.1 g/dL (6.5-8.0); Triglycerides 95 mg/dL (<150)
[2023-12-13 14:08] LABS: Appearance Urine Clear; Color Urine Yellow; Glucose Urine UA Negative (Negative); Leukocyte Esterase Urine Moderate (2+) (Negative); Nitrite Urine Negative (Negative); PH 5.5 (5.0-9.0); UMIC TRIGGER UACC YES; Urine Blood Negative (Negative); Urine Ketones Negative (Negative); Urine Protein Negative (Neg-Trace)
[2023-12-13 14:09] LABS: Free T4 (Free Thyroxine) 1.16 ng/dL (0.71-1.85); Thyroid Stimulating Hormone 0.58 uIU/mL (0.32-4.0); Vitamin D 25-OH Total 33.9 ng/mL (>30)
[2023-12-13 14:13] LABS: Bacteria Urine Trace (None Seen); Hyaline Casts Urine 0-2 /LPF (0-2); RBC Urine 0-2 /HPF (0-2); UACC Culture Trigger YES
[2023-12-13 14:39] LABS: Creatinine Urine 42.16 mg/dL; Microalbumin Urine < 5.0 mg/L
[2023-12-13 15:11] LABS: Estimated Average Glucose 163 mg/dL; Hemoglobin A1C 148.4586 umol/L; Hemoglobin A1c % 7.3 % (<6.0)
== END 2023-12-13 11:56 | disposition home or self-care (01) ==
LOC: HO.LAB 11:55
PROVIDERS: PCP Internal Medicine; Visit Provider Internal Medicine
DX: I10 Essential (primary) hypertension (principal); D64.9 Anemia, unspecified; K92.2 Gastrointestinal hemorrhage, unspecified; E78.00 Pure hypercholesterolemia, unspecified; E03.9 Hypothyroidism, unspecified; E11.9 Type 2 diabetes mellitus without complications; E55.9 Vitamin D deficiency, unspecified; R30.0 Dysuria
CPT/HCPCS: 36415; 80053; 80061; 81001; 81003; 82043; 82306; 82570; 83036; 84439; 84443; 85025; 87086

== ENCOUNTER 2023-12-15 10:52 | Outpatient (AMB) | payer OTHER, SELFPAY ==
[2023-12-15 11:19] VITALS: BP 132/84; PULSE 91; O2SAT 96; BMI 36.4
--- NOTE | 2023-12-15 11:19 | MHC.PC.OV ---
Vital Signs 12/15/23 11:19 Height 5 ft 4 in Weight 212 lb BMI 36.4 BP 132/84 Blood Pressure Location Lt brachial Position Sitting Pulse 91 Pulse Source Pulse Oximeter Pulse Oximetry (%) 96 Oxygen Delivery Method Room Air Intake Visit Reasons: DM, mitochondrial myopathy, hypogamma [place] Decorator Required: No Accompanied by: Self / Same As Patient Allergies cephalexin Allergy (Severe, Verified 12/15/23 12:07) Difficulty Breathing latex [LATEX] Allergy (Severe, Verified 12/15/23 12:07) Difficulty Breathing levofloxacin [From LEVAQUIN] Allergy (Severe, Verified 12/15/23 12:07) SHORTNESS OF BREATH, RASH, rash morphine [MORPHINE] Allergy (Severe, Verified 12/15/23 12:07) RASH, asthma exacerbation, rash baclofen [BACLOFEN] Allergy (Intermediate, Verified 12/15/23 12:07) Rash celecoxib [Celebrex] Allergy (Intermediate, Verified 12/15/23 12:07) itching, rash, flushing prednisone [PREDNISONE] Allergy (Intermediate, Verified 12/15/23 12:07) RASH, asthma exacerbation, rash codeine Allergy (Unknown, Verified 12/15/23 12:07) Rash gluten [GLUTEN] Allergy (Unknown, Verified 12/15/23 12:07) UNKNOWN oxycodone Allergy (Unknown, Verified 12/15/23 12:07) rash ranitidine Allergy (Unknown, Verified 12/15/23 12:07) unknown roflumilast [Daliresp] Allergy (Unknown, Verified 12/15/23 12:07) rash tramadol [TRAMADOL] Allergy (Unknown, Verified 12/15/23 12:07) RASH,SHORTNESS OF BREATH AND HEADACHE, asthma exacerbation, rash celery Allergy (Verified 12/15/23 12:07) Rash cyclobenzaprine [From Flexeril] Allergy (Verified 12/15/23 12:07) Rash and asthma exacerbation environmental allergies Allergy (Verified 12/15/23 12:07) Cleaning products cause asthma attack pineapple Allergy (Verified 12/15/23 12:07) Rash strawberry Allergy (Verified 12/15/23 12:07) Rash sulfamethoxazole [From Bactrim] Adverse Reaction (Intermediate, Verified 12/15/23 12:07) vertigo trimethoprim [From Bactrim] Adverse Reaction (Intermediate, Verified 12/15/23 12:07) vertigo diazepam [From Valium] Adverse Reaction (Verified 12/15/23 12:07) Cough Medication List - Last Reconciled 12/15/23 by Cassius Strong MD atorvastatin 40 mg PO BEDTIME azithromycin 500 mg PO DAILY 5 days benralizumab (Fasenra) 30 mg subcut Q8W bismuth subsalicylate (Pepto-Bismol) 2 mg PO DAILY PRN blood pressure monitor As directed blood sugar diagnostic (FreeStyle Lite Strips) As directed- checks 4-5 X/day calcium citrate 500 mg (2 x 250 mg calcium) PO BID 30 days carvedilol 6.25 mg PO DAILY@1500 PRN cholecalciferol (vitamin D3) 100 mcg PO BEDTIME clotrimazole 10 mg mucous membrane TID PRN [DIABETIC SHOES DIABETIC SHOES - 1 PAIR - use as directed -- Dx: E11.9 -- diabetes mellitus] ferrous sulfate (FeroSul) 325 mg PO DAILY Fiasp FlexTouch U-100 Insulin 100 unit/mL (3 mL) (insulin aspart (niacinamide)) Inject 5 to 20 units SQ before meals and snacks, FOUR TIMES A DAY 30 days NS hydromorphone 2 mg PO TID PRN 7 days immun glob J-aps-vvaw-IgA 0-50 5 gram (Gammagard S-D (IgA < 1 mcg/mL)) 40 grams IV Q3W ipratropium bromide 2 sprays intranasal DAILY lancets (FreeStyle Lancets) 5 times a day levalbuterol tartrate 45 mcg/actuation (Xopenex HFA) 2 puffs inhalation Q6H PRN 30 days loratadine 10 mg PO DAILY losartan 25 mg PO BEDTIME 90 days metformin ER 1,000 mg PO BID@0900,1700 methylprednisolone (Medrol (Jarrett)) orally daily; take 2 tabs daily twice a day x 4, then 1 tab twice a day x 4 days, then 1 tab daily x 4 days 12 days montelukast 10 mg PO BEDTIME 90 days nebulizers As directed nystatin (Nystop) 1 appl topical TID omeprazole 40 mg PO BID ondansetron 8 mg PO Q8H PRN 10 days pen needle, diabetic (Easy Comfort Pen [place]) As directed inmjects 4 X/day pyridostigmine bromide 60 mg PO TID Synthroid (levothyroxine) 224 mcg (2 x 112 mcg) PO DAILY NS tizanidine 2 mg PO TID PRN Tobacco use date assessed: 12/15/23 Dental Screening Dental Screen Date: 12/15/23 Did you have a dental visit in the last 12 months?: Yes Did you have a dental problem in the last 6 months where you did not have access to dental care?: No Was dental information given to patient?: Patient has dentist HPI DM, mitochondrial myopathy, hypogamma HPI Details Patient comes in today for her HDF follow up visit She was recently admitted again to [facility] early last month for upper GI bleeding when she presented to the ER with dark-colored stools and abdominal pain As she was also admitted back in September 2023 for UGI bleeding that required banding of bleeding varices, she again underwent EGD and colonoscopy for further evaluation EGD done last month again revealed some bleeding varices that required banding She has a follow up appt with GI later this morning States that she still feels fatigued often - is still anemic and is currently on oral iron supplements and is now also seein hematology for follow up She denies any headaches or dizziness Denies any chest pains; has some [place] at times Reports (+) occasional nausea but denies any vomiting; denies any abdominal pain at present No change in bowel habits noted Needs her Carvedilol and Dilaudid Rx refilled Had her follow up labs done a couple of days ago - to discuss her results [facility] Medical History Anemia Chronic restrictive lung disease Brugada syndrome Shortness of breath Encounter for care related to Port-a-Cath Tinea pedis Recurrent cellulitis of lower extremity CHARLES (obstructive sleep apnea) Hypogammaglobulinemia Asthma Cellulitis of both lower extremities Right hip pain Lumbar degenerative disc disease Benign essential hypertension Obesity (BMI 30-39.9) Mitochondrial myopathy Asthma Diabetes mellitus History of revision of total replacement of right hip joint (~12/2019) Acquired hypothyroidism Pain of both hip joints Pure hypercholesterolemia Hx of cataract HTN (hypertension) Osteopenia Hypothyroidism Osteoarthritis of hip Gastritis Surgical History History of removal of Port-a-Cath History of total right hip arthroplasty (~06/03/19) History of eye surgery (~09/2017) History of hip surgery Hx of foot surgery (~01/02/19) History of removal of cyst Hx of left knee surgery History of elbow surgery (~07/2016) Hx of thumb surgery Hx of appendectomy Hx of hysterectomy (~07/2011) Hx of bilateral breast reduction surgery Family History Father Leukemia Mother Hypertension Diabetes Sister Alive and well Brother Pancreatic cancer Paternal Grandmother Stomach cancer Paternal Grandmother Throat cancer Social History Household Members: Family and Children Housing: Apartment Do you presently have visiting nurse or other home services: No Alcohol intake: former Comment: refused bed alarm Patient Tobacco Use Status: Never used Tobacco e-Cigarette/Vaping Use: Never Used Second Hand Smoke Exposure: No Advance Directives Date on File: 10/02/23 service: No Current occupational status: disabled Cognitive needs: No Hearing needs: No Vision needs: No Questionnaire PHQ-9 Over the last 2 weeks, how often have you been bothered by any of the following problems? 1. Little interest or pleasure in doing things: not at all 2. Feeling down, depressed, or hopeless: not at all 3. Trouble falling or staying asleep, or sleeping too much: not at all 4. Feeling tired or having little energy: not at all 5. Poor appetite or overeating: not at all 6. Feeling bad about yourself - or that you are a failure or have let yourself or your family down: not at all 7. Trouble concentrating on things, such as reading the newspaper or watching television: not at all 8. Moving or speaking so slowly that other people could have noticed. Or the opposite - being so fidgety or restless that you have been moving around a lot more than usual: not at all 9. Thoughts that you would be better off or of hurting yourself in some way: not at all Total score: 0 Depression Screening Interpretation: Negative Depression Screening Done: Yes 54788 - PHQ-9 Billing: Yes Source: Developed by Drs. Baabk Mcintosh, Christian Read and colleagues, with an educational sarah from [employer]. Thrive Questionnaire Date Thrive assessed: 12/15/23 I am a: Patient What is your living situation today?: I have a steady place to live Within the past 12 months, did the food you bought not last and you didn't have the money to get more?: Never true Within the past 12 months, did you worry whether your food would run out before you got money to buy more?: Never true Do you have trouble paying for medicines?: No Do you have trouble getting transportation to medical appointments?: No Do you have trouble paying your heating and electricity bill?: No Do you have trouble taking care of your child, family member or friend?: No Do you have trouble with day-to-day activities such as bathing, preparing meals, shopping, managing finances, etc.?: No Are you currently unemployed and looking for a job?: No Are you interested in more education?: No Please select the resources that you would like help with: None Currently or been in a relationship where the following occur: no concerns reported THRIVE Score: 0 AUDIT C Alcohol Use Questionnaire (AUDIT-C) 1. How often do you have a drink containing alcohol?: Never 3. How often do you have six or more drinks on one occasion?: Never Total Score: 0 Score Reviewed/Action Taken: Yes REI-7 AMB Questionnaire REI-7 Date REI - 7 assessed: 12/15/23 Feeling nervous, anxious, or on edge: 0 = Not at all Not being able to stop or control worryin = Not at all Worrying too much about different things: 0 = Not at all Trouble relaxin = Not at all Being so restless that it is hard to sit still: 0 = Not at all Becoming easily annoyed or irritable: 0 = Not at all Feeling afraid as if something awful might happen: 0 = Not at all Total REI-7 score (0-4 normal; 5-9 mild; 10-14 moderate; 15-21 severe): 0 Source: Developed by Drs. Babak Mcintosh, Christian Read and colleagues, with an educational sarah from [employer]. Review of Systems Const Denies chills, Reports fatigue, Denies fever(s) and Denies headache(s) ENT Denies dysphagia, Denies dizziness, Denies otalgia, Denies headache(s), Denies neck pain, Denies odynophagia and Denies sore throat Card Denies chest pain, Denies palpitations and Reports dyspnea on exertion (mild) Resp Denies cough, Reports dyspnea on exertion (mild) and Denies wheezing GI Denies abdominal pain, Denies melena, Denies hematochezia, Denies constipation, Denies dysphagia, Denies heartburn, Denies diarrhea, Reports nausea (occasionally), Denies odynophagia and Denies vomiting Denies nocturia, Denies dysuria and Denies urinary urgency Musc Reports back pain (over the lumbar spine - chronic), Reports arthralgias (involving multiple joints, including both hips and knees) and Denies neck pain Skin/Breast Denies rash Neuro Denies dizziness and Denies headache(s) Endo Reports fatigue and Denies palpitations Aller/Immun Denies wheezing Physical exam (Primary Care) Vital Signs: Last Vital Signs Pulse 91 12/15/23 11:19 BP 132/84 12/15/23 11:19 Pulse Ox 96 12/15/23 11:19 Oxygen Delivery Method Room Air 12/15/23 11:19 BMI result Body Mass Index 36.4 Tobacco/Smoking Status: Tobacco use Status Tobacco use date assessed 12/15/23 12/15/23 11:23 Patient Tobacco Use Status Never used Tobacco 12/15/23 11:23 e-Cigarette/Vaping Use Never Used 12/15/23 11:23 PHQ-9: PHQ-9 Score PHQ-9: Total score 0 12/15/23 11:23 Depression Screening Interpretation: Negative Thrive Assessment: Date of Thrive Assessment Date Thrive assessed 12/15/23 12/15/23 11:23 Currently or been in a relationship where the following occur: no concerns reported Const General: no acute distress and alert HENMT Ears: TM's normal bilaterally and EAC's normal Throat: Yes posterior oropharynx normal and Yes tonsils normal (no TP congestion noted) Neck Neck: Yes no lymphadenopathy and Yes supple Thyroid: Thyroid normal Resp Auscultation: clear to auscultation bilaterally, no rales and no wheezes Cardio Rate: regular rate Rhythm: regular rhythm Heart sounds: no murmurs GI Palpation (GI): Soft to palpation, nontender and no guarding Auscultation: normal bowel sounds General: Yes no CVA tenderness Back/Spine/Pelvis Back: no CVA tenderness Thoracic/Lumbar Spine: lumbar spinal tenderness Skin Rashes: no rashes Extrem General: Yes no clubbing, cyanosis or edema Right lower extremity: hip/thigh Details: tenderness Location: of the hip and knee Details: tenderness; no swelling Left lower extremity: hip/thigh Details: tenderness Location: of the hip and knee Details: tenderness; no swelling Results Reviewed Results Reviewed: Laboratory Tests 12/13/23 12/13/23 12/13/23 12:00 12:00 12:07 WBC 4.9 Hgb 10.3 L Hct 32.5 L Plt Count 125 L Sodium 138 Potassium 3.9 D Creatinine 0.69 Estimated GFR > 60 Fasting Glucose 170 H Hemoglobin A1c % 7.3 H Calcium 9.5 D AST 30 ALT 40 H Triglycerides 95 Cholesterol 126 LDL Cholesterol, Calc 69 HDL Cholesterol 38 L 25-OH Vitamin D Total 33.9 TSH Free T4 Ur Specific [place] 1.010 Urine Protein Negative Urine Glucose (UA) Negative Urine Blood Negative Urine Nitrite Negative Ur Leukocyte Esterase Moderate (2+) H 12/13/23 12:07 WBC Hgb Hct Plt Count Sodium Potassium Creatinine Estimated GFR Fasting Glucose Hemoglobin A1c % Calcium AST ALT Triglycerides Cholesterol LDL Cholesterol, Calc HDL Cholesterol 25-OH Vitamin D Total TSH 0.58 Free T4 1.16 Ur Specific Louin Urine Protein Urine Glucose (UA) Urine Blood Urine Nitrite Ur Leukocyte Esterase Assessment and Plan Assessment & Plan (1) Upper GI bleed: Code(s): K92.2 - Gastrointestinal hemorrhage, unspecified Plan: EGD in September 2023 revealed (+) large varices that required banding x 5 and hemospray application Patient also had a gastric polyp that was removed surgically Repeat EGD done last month revealed (+) gastric polyps (pathology came back benign), portal hypertensive gastropathy and esophageal varices - banding and hemospray were again required Repeat colonoscopy showed (+) internal hemorrhoids and 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 She is reminded to avoid all NSAIDs completely Continue Omeprazole 40 mg BID; continue Carvedilol 6.25 mg QD for hypertensive portal gastropathy Follow up with GI as scheduled (2) Anemia: Code(s): D64.9 - Anemia, unspecified Qualifiers: Anemia type: unspecified type Qualified Code(s): D64.9 - Anemia, unspecified Plan: Is most likely related to her recent bouts of GI bleeding Patient received 2 units of PRBC during her recent hospital stay in September 2023; did not need transfusion during her admission last week Her H/H were still low at 10.3/32.5 on her labs done a couple of days ago Continue Ferrous Sulfate 325 mg QD Follow up with hematology as scheduled Will have her recheck her CBC in 3 months for follow up (3) Diabetes mellitus: Code(s): E11.9 - Type 2 diabetes mellitus without complications Qualifiers: Diabetes mellitus type: type 2 Diabetes mellitus emt intermediate insulin use: without mcc use Diabetes mellitus complication status: without complication Qualified Code(s): E11.9 - Type 2 diabetes mellitus without complications Plan: Her HgbA1c was at 7.3% on her labs done a couple of days ago (was at 7.9% a few months ago in August 2023) - goal is < 7.0% Reinforced diabetic diet Continue Metformin 1000 mg BID, Tresiba 5 units QD and Fiasp TID with meals per sliding scale Follow up with endocrinology (Dr. Mahan) as scheduled (4) Benign essential hypertension: Code(s): I10 - Essential (primary) hypertension Plan: Reinforced low sodium diet - goal is systolic BP of at least 120 to 130 mm or less She was started on Carvedilol 6.25 mg QD in September 2023 for her hypertensive portal gastropathy and her Metoprolol was discontinued Her Losartan 25 mg QD was HELD a few weeks ago due to low BP and recurrent dizziness - her BP seems to have gone up somewhat since then and we may need to start her back on Losartan if her BP continues to go up and stay high Patient is reminded to continue monitoring her blood pressure regularly (5) Pure hypercholesterolemia: Code(s): E78.00 - Pure hypercholesterolemia, unspecified Plan: Results of her labs done a couple of days ago reviewed and discussed with patient Reinforced low cholesterol diet Continue Atorvastatin 40 mg QD Will recheck her labs and fasting lipids in 3 months for follow up (6) Asthma: Code(s): J45.909 - Unspecified asthma, uncomplicated Qualifiers: Asthma severity: moderate Asthma persistence: persistent Asthma complication type: uncomplicated Qualified Code(s): J45.40 - Moderate persistent asthma, uncomplicated Plan: Stable Continue Montelukast 10 mg once a day in the evening, Spiriva Respimat 20-100 mcg 1 inhalation 4 times a day, Ventolin HFA 2 puffs 4 times a day as needed and DuoNeb nebulizer solution 3 mL via nebulizer 4 times a day as needed Continue Fasenra 30 mg subcutaneous injection every 8 weeks Follow up with pulmonary as scheduled (7) Acquired hypothyroidism: Code(s): E03.9 - Hypothyroidism, unspecified Plan: Continue Synthroid 224 mcg QD Will continue to monitor her TFTs regularly (8) Mitochondrial myopathy: Code(s): G71.3 - Mitochondrial myopathy, not elsewhere classified Plan: Continue Mestinon tablets 60 mg 4 times a day Patient also receives Gammagard infusion 40 mg IV every 3 weeks but she had to have her port-a-cath removed a few months ago due to blockage Follow up with Dr. Cobian and with neurology as scheduled for continuing management (9) Lumbar degenerative disc disease: Code(s): M51.36 - Other intervertebral disc degeneration, lumbar region Plan: Reinforced activity and weight-lifting restrictions Continue Hydromorphone 2 mg 3 times a day as needed - Rx refilled Patient used to go to [facility] but requested to see pain management here instead previously and referral has been done (10) Right hip pain: Comment: S/P right hip arthroplasty by Dr. Simon on 06/03/2019 (due to avascular necrosis), then S/P revision of right hip in 12/2019 Code(s): M25.551 - Pain in right hip Plan: Continues to experience increased pain in her right hip despite her arthroplasty followed by revision surgery in 2019 Follow up with orthopedics ([facility]) as scheduled Recalls getting some hip x-rays done at [facility] a few months ago but does not know how her x-rays came out To consider again referral to pain management if her pain progresses (11) Obesity (BMI 30-39.9): Code(s): E66.9 - Obesity, unspecified Plan: Reinforced diet; exercise and weight loss are currently unrealistic expectations due to her multiple comorbidities Plan Follow up in 3 months Orders: Orders Complete Blood Count Auto Diff 3 Months D64.9 - Anemia, unspecified Comprehensive [place]. Panel Fast 3 Months E78.00 - Pure hypercholesterolemia, unspecified Lipid Panel 3 Months E78.00 - Pure hypercholesterolemia, unspecified Thyroid Stimulating Hormone 3 Months E03.9 - Hypothyroidism, unspecified Free T4 (Free Thyroxine) 3 Months E03.9 - Hypothyroidism, unspecified Hemoglobin A1c 3 Months E11.9 - Type 2 diabetes mellitus without complications Microalbumin, Random (w Creat) 3 Months E11.9 - Type 2 diabetes mellitus without complications UA CC w/rflx Micro + Cult 3 Months R30.0 - Dysuria Vitamin B12 and Folate 3 Months E53.8 - Deficiency of other specified B group vitamins Vitamin D 25-OH Total 3 Months E55.9 - Vitamin D deficiency, unspecified Medications: New carvedilol must administer with a meal/food 6.25 mg PO DAILY@1500 PRN 90 tabs 1RF high blood pressure Refilled hydromorphone 2 mg PO TID PRN 21 tabs 0RF pain 7 days M51.36 - Other intervertebral disc degeneration, lumbar region Coding Level of Care Code Est Pt Level 4 (54824) Diagnoses Upper GI bleed K92.2 Anemia, unspecified type D64.9 Anemia type: unspecified type Type 2 diabetes mellitus without complication, without long-term current use of insulin E11.9 Diabetes mellitus type: type 2 Diabetes mellitus mcc insulin use: without emt intermediate use Diabetes mellitus complication status: without complication Benign essential hypertension I10 Pure hypercholesterolemia E78.00 Moderate persistent asthma without complication J45.40 Asthma severity: moderate Asthma persistence: persistent Asthma complication type: uncomplicated Acquired hypothyroidism E03.9 Mitochondrial myopathy G71.3 Lumbar degenerative disc disease M51.36 Right hip pain M25.551 Obesity (BMI 30-39.9) E66.9
== END 2023-12-15 11:47 | disposition home or self-care (01) ==
PROVIDERS: PCP Internal Medicine; Visit Provider Internal Medicine
DX: K92.2 Gastrointestinal hemorrhage, unspecified (principal); D64.9 Anemia, unspecified; E11.9 Type 2 diabetes mellitus without complications; I10 Essential (primary) hypertension; E78.00 Pure hypercholesterolemia, unspecified; J45.40 Moderate persistent asthma, uncomplicated; E03.9 Hypothyroidism, unspecified; G71.3 Mitochondrial myopathy, not elsewhere classified; M51.36 Other intervertebral disc degeneration, lumbar region; M25.551 Pain in right hip
CPT/HCPCS: 99214

== ENCOUNTER 2023-12-15 11:56 | Outpatient (AMB) | payer OTHER, SELFPAY ==
--- NOTE | 2023-12-15 12:08 | MHC.OFFVIS ---
Intake Vital Signs 12/15/23 12:09 Height 5 ft 4 in Weight 212 lb BMI 36.4 BP 152/77 H Blood Pressure Location Lt brachial Position Sitting Pulse 75 Intake Visit Reasons: f/u EGD Intake Note: Patient follow up for EGD results. Patient cc: Nauseas, abdominal pain on and off and some esophagus discomfort. Denies any other GI issues. Oceanography Professor Required: No Accompanied by: Self / Same As Patient Allergies cephalexin Allergy (Severe, Verified 12/15/23 12:07) Difficulty Breathing latex [LATEX] Allergy (Severe, Verified 12/15/23 12:07) Difficulty Breathing levofloxacin [From LEVAQUIN] Allergy (Severe, Verified 12/15/23 12:07) SHORTNESS OF BREATH, RASH, rash morphine [MORPHINE] Allergy (Severe, Verified 12/15/23 12:07) RASH, asthma exacerbation, rash baclofen [BACLOFEN] Allergy (Intermediate, Verified 12/15/23 12:07) Rash celecoxib [Celebrex] Allergy (Intermediate, Verified 12/15/23 12:07) itching, rash, flushing prednisone [PREDNISONE] Allergy (Intermediate, Verified 12/15/23 12:07) RASH, asthma exacerbation, rash codeine Allergy (Unknown, Verified 12/15/23 12:07) Rash gluten [GLUTEN] Allergy (Unknown, Verified 12/15/23 12:07) UNKNOWN oxycodone Allergy (Unknown, Verified 12/15/23 12:07) rash ranitidine Allergy (Unknown, Verified 12/15/23 12:07) unknown roflumilast [Daliresp] Allergy (Unknown, Verified 12/15/23 12:07) rash tramadol [TRAMADOL] Allergy (Unknown, Verified 12/15/23 12:07) RASH,SHORTNESS OF BREATH AND HEADACHE, asthma exacerbation, rash celery Allergy (Verified 12/15/23 12:07) Rash cyclobenzaprine [From Flexeril] Allergy (Verified 12/15/23 12:07) Rash and asthma exacerbation environmental allergies Allergy (Verified 12/15/23 12:07) Cleaning products cause asthma attack pineapple Allergy (Verified 12/15/23 12:07) Rash strawberry Allergy (Verified 12/15/23 12:07) Rash sulfamethoxazole [From Bactrim] Adverse Reaction (Intermediate, Verified 12/15/23 12:07) vertigo trimethoprim [From Bactrim] Adverse Reaction (Intermediate, Verified 12/15/23 12:07) vertigo diazepam [From Valium] Adverse Reaction (Verified 12/15/23 12:07) Cough HPI f/u EGD HPI Details 53-year-old female with past medical history of Brugada syndorme and non cirrhotic portal hypertension with history of variceal bleeding, who I am seeing for f/u RECAP: Pt with non cirrhotic portal hypertension issues with melena and anemia Upper endoscopy September 2023 with EVBL. Also had multiple gastric polyps. Path: Hyperplastic polyp without dysplasia. No H pylori. Further admission: EGD and colo 11/21/23 EVBL and gastric polyps removed INTERIM: she has not seen any melena she has bloating and gas she avoids full meals as she gets early satiety she has issues with digestion she eats limited foods, chicken and fish mostly \ no nausea or vomiting she is taking statin and carvedilol EXAM: GENERAL: The patient is well developed and nontoxic. VITAL SIGNS:see workflow HEENT: Nonicteric sclerae, PERRLA, EOMI. Oropharynx clear. Moist mucous membranes. Conjunctivae appear well perfused. No thyroid mass. CHEST: Chest wall is nontender. HEART: Regular rate and rhythm without murmurs. LUNGS: Clear to auscultation bilaterally. ABDOMEN: Soft, positive bowel sounds, nontender, no organomegaly.no flank tenderness SKIN: No rash, no excessive bruising, petechiae, or purpura. NEUROLOGIC: Cranial nerves II-XII intact without motor/sensory deficit. Psych: normal affect A/P: 1/ NRH of the liver with severe portal hypertenstion and congestion, prob causing her satiety etc PLAN: 1/ cont with carvedilol and statin 2/ referred to IR for TIPS 3/ discussed liver bx with reticulin stain, she will consider 4/ repeat EGD in 01/2024 [facility] Medical History Anemia Chronic restrictive lung disease Brugada syndrome Shortness of breath Encounter for care related to Port-a-Cath Tinea pedis Recurrent cellulitis of lower extremity CHARLES (obstructive sleep apnea) Hypogammaglobulinemia Asthma Cellulitis of both lower extremities Right hip pain Lumbar degenerative disc disease Benign essential hypertension Obesity (BMI 30-39.9) Mitochondrial myopathy Asthma Diabetes mellitus History of revision of total replacement of right hip joint (~12/2019) Acquired hypothyroidism Pain of both hip joints Pure hypercholesterolemia Hx of cataract HTN (hypertension) Osteopenia Hypothyroidism Osteoarthritis of hip Gastritis Surgical History History of removal of Port-a-Cath History of total right hip arthroplasty (~06/03/19) History of eye surgery (~09/2017) History of hip surgery Hx of foot surgery (~01/02/19) History of removal of cyst Hx of left knee surgery History of elbow surgery (~07/2016) Hx of thumb surgery Hx of appendectomy Hx of hysterectomy (~07/2011) Hx of bilateral breast reduction surgery Family History Father Leukemia Mother Hypertension Diabetes Sister Alive and well Brother Pancreatic cancer Paternal Grandmother Stomach cancer Paternal Grandmother Throat cancer Social History Household Members: Family and Children Housing: Apartment Do you presently have visiting nurse or other home services: No Alcohol intake: former Comment: refused bed alarm Patient Tobacco Use Status: Never used Tobacco e-Cigarette/Vaping Use: Never Used Second Hand Smoke Exposure: No Advance Directives Date on File: 10/02/23 service: No Current occupational status: disabled Cognitive needs: No Hearing needs: No Vision needs: No Physical Exam Vital Signs: Last Vital Signs Pulse 75 12/15/23 12:09 BP 152/77 H 12/15/23 12:09 BMI result Body Mass Index 36.4 Assessment & Plan Assessment & Plan (1) Portal hypertension: Code(s): K76.6 - Portal hypertension Plan: see above Coding Level of Care Code Est Pt Level 4 (56426) Diagnoses Portal hypertension K76.6
[2023-12-15 12:09] VITALS: BP 152/77; PULSE 75; BMI 36.4
== END 2023-12-15 12:32 | disposition home or self-care (01) ==
PROVIDERS: PCP Internal Medicine; Visit Provider Internal Medicine Gastroenterology
DX: K76.6 Portal hypertension (principal)
CPT/HCPCS: 99214

== ENCOUNTER → 2023-12-15 11:56 | Outpatient (BNVA) | payer OTHER, SELFPAY | PROVIDERS: PCP Internal Medicine; Visit Provider Internal Medicine Gastroenterology | DX: K76.6 Portal hypertension (principal) | CPT/HCPCS: 99212 ==

== ENCOUNTER 2024-01-25 12:52 | Outpatient (REF) | payer OTHER, SELFPAY ==
[2024-01-25 10:27] VITALS: PULSE 67; RESP 16; O2SAT 97
[2024-01-25 14:24] LABS: MANUAL DIFF FLAG NO
[2024-01-25 14:51] LABS: Hematocrit 33.6 % (37.0-47.0); Hemoglobin 10.7 g/dl (12.0-16.0); Imm Gran Abs Auto 0.01 X10*3/uL (0.00-0.03); Imm Gran Pct Auto 0.2 % (0.0-0.4); Lymphocytes Absolute Auto 1.6 X10*3/uL (1.2-4.9); Lymphocytes Percent Auto 29.4 % (20-40); Mean Corpuscular HGB Conc 31.8 g/dl (31.0-35.0); Mean Corpuscular Hemoglobin 25.2 pg (27.0-33.0); Mean Corpuscular Volume 79.2 fL (80.0-98.0); Monocytes Absolute Auto 0.5 X10*3/uL (0.1-1.2); Monocytes Percent Auto 9.1 % (2-11); Neutrophils Absolute Auto 3.4 x10*3/uL (2.0-8.3); Neutrophils Percent Auto 61.3 % (45-73); Platelet Count 131 X10*3/uL (160-400); Red Blood Count 4.24 X10*6/uL (4.20-5.50); Red Cell Distribution Width 14.6 % (11.0-16.0); White Blood Count 5.6 X10*3/uL (4.8-10.8)
[2024-01-25 15:43] LABS: Anion Gap 11 (12-20); Blood Urea Nitrogen 12 mg/dL (9-16); Calcium 9.9 mg/dL (8.4-10.2); Carbon Dioxide 29 mmol/L (22-29); Chloride 106 mmol/L (96-108); Estimated Glomerular Filt Rate > 60; Glucose Random 108 mg/dL (60-115); Potassium 4.5 mmol/L (3.3-5.1); Sodium 141 mmol/L (135-145)
--- NOTE | 2024-01-25 16:17 | PFT_ITS ---
Flows: FEV1: 87 % of predicted at 2.30 L FVC: 80 % of predicted at 2.66 L FEV1/FVC: 87 % Bronchodilator response: Absent Volumes: Total lung capacity: 75 % of predicted at 3.89 L Residual volume: 77 % of predicted at 1.23 L Slow vital capacity: 74 % of predicted at 2.66 L Expiratory reserve volume: 41 % of predicted at 0.39 L Diffusion capacity: Normal Impression: Mild restrictive ventilatory defect with no bronchodilator response. Decreased expiratory reserve volume suggests extrathoracic restriction likely secondary to abdominal obesity. MTDD
[2024-01-31 14:13] LABS: Smooth Muscle Antibody <20 U (<20)
== END 2024-01-25 12:53 | disposition home or self-care (01) ==
LOC: HO.RESP 12:52
PROVIDERS: PCP Internal Medicine; Visit Provider Hospitalist
DX: J45.50 Severe persistent asthma, uncomplicated (principal); K76.6 Portal hypertension; D80.1 Nonfamilial hypogammaglobulinemia
CPT/HCPCS: 36415; 80048; 85025; 86015; 94010; 94640; 94727; 94729; 99212

== ENCOUNTER 2024-01-25 12:54 | Outpatient (AMB) | payer OTHER, SELFPAY ==
[2024-01-25 13:32] VITALS: PULSE 64; O2SAT 93; BMI 36.2
--- NOTE | 2024-01-25 13:32 | MHC.OFFVIS ---
Intake Vital Signs 01/25/24 13:32 Height 5 ft 4 in Weight 211 lb BMI 36.2 Pulse 64 Pulse Source Pulse Oximeter Pulse Oximetry (%) 93 Oxygen Delivery Method Room Air Intake Visit Reasons: COPD Freezer Machine Operator Required: No Allergies cephalexin Allergy (Severe, Verified 01/25/24 13:33) Difficulty Breathing latex [LATEX] Allergy (Severe, Verified 01/25/24 13:33) Difficulty Breathing levofloxacin [From LEVAQUIN] Allergy (Severe, Verified 01/25/24 13:33) SHORTNESS OF BREATH, RASH, rash morphine [MORPHINE] Allergy (Severe, Verified 01/25/24 13:33) RASH, asthma exacerbation, rash baclofen [BACLOFEN] Allergy (Intermediate, Verified 01/25/24 13:33) Rash celecoxib [Celebrex] Allergy (Intermediate, Verified 01/25/24 13:33) itching, rash, flushing prednisone [PREDNISONE] Allergy (Intermediate, Verified 01/25/24 13:33) RASH, asthma exacerbation, rash codeine Allergy (Unknown, Verified 01/25/24 13:33) Rash gluten [GLUTEN] Allergy (Unknown, Verified 01/25/24 13:33) UNKNOWN oxycodone Allergy (Unknown, Verified 01/25/24 13:33) rash ranitidine Allergy (Unknown, Verified 01/25/24 13:33) unknown roflumilast [Daliresp] Allergy (Unknown, Verified 01/25/24 13:33) rash tramadol [TRAMADOL] Allergy (Unknown, Verified 01/25/24 13:33) RASH,SHORTNESS OF BREATH AND HEADACHE, asthma exacerbation, rash celery Allergy (Verified 01/25/24 13:33) Rash cyclobenzaprine [From Flexeril] Allergy (Verified 01/25/24 13:33) Rash and asthma exacerbation environmental allergies Allergy (Verified 01/25/24 13:33) Cleaning products cause asthma attack pineapple Allergy (Verified 01/25/24 13:33) Rash strawberry Allergy (Verified 01/25/24 13:33) Rash sulfamethoxazole [From Bactrim] Adverse Reaction (Intermediate, Verified 01/25/24 13:33) vertigo trimethoprim [From Bactrim] Adverse Reaction (Intermediate, Verified 01/25/24 13:33) vertigo diazepam [From Valium] Adverse Reaction (Verified 01/25/24 13:33) Cough HPI HPI Comments History of Present Illness Details The patient is a 53-year-old woman with known severe persistent asthma, hypogammaglobulinemia and obstructive sleep apnea. She has had significant issues with osteopenia and osteoporosis due to chronic steroid use. Currently she is using crutches. She did have surgery to her hip but still having issues with pain. She has been off the Medrol now for some time. She has been taking IVIG for her immunodeficiency with good effect. In in she also continues with respiratory therapy. When she started on Dupixent for her severe asthma she was able to wean off the Medrol. 05/09/2022 the patient is here for a pulmonary follow-up visit. The patient overall has been having increasing dyspnea on exertion. [id number] severity. She also complains of cough. She did try the Anoro but she could not tolerated. Therefore she stopped it. She continues on the Asmanex. she has not used her short-acting beta agonist. She continues on the Fasenra injections which appeared to be effective for her. The meantime she is having significant foot pain. She is going to have removal hardware from her but next week. I do believe that her worsening dyspnea is likely from deconditioning specially that she has a hard time walking now with her musculoskeletal issues. She did undergo pulmonary function studies in order to have her participate in pulmonary rehabilitation. she appears to have a restrictive ventilatory defect consistent with restrictive lung disease. The patient will benefit from pulmonary rehabilitation at this time. 11/10/2022 the patient is here for a pulmonary follow-up visit. Since we last spoke she had 1 brief exacerbation. She did require course of steroids. She initially call the office and we could not see her and she also call the primary care doctor who could not see her as well. Therefore she was recommended to go to the ED. However she was concerned about potential exposures while in the ED. Therefore she stayed home and she took additional Medrol. Currently she is doing better. She denies any chest congestion. She continues to have some dyspnea on exertion. Yfkf-il-pknbzjje severity. She continues on her allergy therapy. She is also using the Fasenra injections with good results. She continues on IVIG. 09/14/2023 the patient is here for a pulmonary follow-up visit. The patient overall doing well. Since we last spoke she did require antibiotics and Medrol once or twice. She is feeling better though. She does take care of her grandkids and exposed to viral syndromes. She tries to be careful though. In the meantime I will send her another script for Medrol for to hold just in case her symptoms worsen again. Patient knows that she is to be careful with taking steroid specially since she was on chronic steroids before will try to avoid that. In the meantime she does continue with her IVIG therapy a her inconsistent use with her Fasenra injections. We did review her recent blood work. She is anemic with a hemoglobin of 10.7. She is going to have that recheck again in 3 months. But with all the her all comorbidities anemia can also worsening shortness of breath. In addition to that will have her check a venous blood gas the next time she gets blood work to make sure she is that she is not retaining CO2. When she comes back in 3-4 months will have a her undergo pulmonary function studies to assess the lung capacity in view of her significant scoliosis and underlying obstructive airway disease. 01/25/2024 the patient is here for pulmonary follow-up visit. She is doing well from a respiratory status. She did see the client renewal specialist in her IVIG was stopped because the levels were good. Subsequently after that she started developing a GI bleed and anemia. She was evaluated by GI and she was found to have portal hypertension. Subsequently after that she was diagnosed with cirrhosis. They recommended a liver biopsy although she has not had as of yet. Her liver function still normal. She did undergo pulmonary function studies. They appeared to be normal except for mild restriction likely secondary to her body habitus and also her neuromuscular disease. At this point she has been evaluated for her liver cirrhosis. She appears to be volume overloaded with some pitting edema bilaterally. The patient needs to be diuresed time. To continue to follow-up with GI. She has contemplating a biopsy. Explained to her if the biopsy is going to ptosis reasonable to pursue. She will discuss further with her para educator. [facility] Medical History Anemia Chronic restrictive lung disease Brugada syndrome Shortness of breath Encounter for care related to Port-a-Cath Tinea pedis Recurrent cellulitis of lower extremity CHARLES (obstructive sleep apnea) Hypogammaglobulinemia Asthma Cellulitis of both lower extremities Right hip pain Lumbar degenerative disc disease Benign essential hypertension Obesity (BMI 30-39.9) Mitochondrial myopathy Asthma Diabetes mellitus History of revision of total replacement of right hip joint (~12/2019) Acquired hypothyroidism Pain of both hip joints Pure hypercholesterolemia Hx of cataract HTN (hypertension) Osteopenia Hypothyroidism Osteoarthritis of hip Gastritis Surgical History History of removal of Port-a-Cath History of total right hip arthroplasty (~06/03/19) History of eye surgery (~09/2017) History of hip surgery Hx of foot surgery (~01/02/19) History of removal of cyst Hx of left knee surgery History of elbow surgery (~07/2016) Hx of thumb surgery Hx of appendectomy Hx of hysterectomy (~07/2011) Hx of bilateral breast reduction surgery Family History Father Leukemia Mother Hypertension Diabetes Sister Alive and well Brother Pancreatic cancer Paternal Grandmother Stomach cancer Paternal Grandmother Throat cancer Social History Household Members: Family and Children Housing: Apartment Do you presently have visiting nurse or other home services: No Alcohol intake: former Comment: refused bed alarm Patient Tobacco Use Status: Never used Tobacco e-Cigarette/Vaping Use: Never Used Second Hand Smoke Exposure: No Advance Directives Date on File: 10/02/23 service: No Current occupational status: disabled Cognitive needs: No Hearing needs: No Vision needs: No Review of Systems Const Denies headache(s) Eyes Denies loss of vision ENT Denies vertigo, Denies dizziness, Denies headache(s) and Denies sore throat Card Denies chest pain, Denies leg edema, Denies lightheadedness and Reports dyspnea on exertion Resp Reports cough, Denies hemoptysis, Reports dyspnea on exertion and Denies wheezing GI Reports as per HPI, Denies abdominal pain, Reports melena, Denies constipation, Denies diarrhea and Denies vomiting Denies urinary frequency, Denies dysuria and Denies urinary urgency Musc Reports myalgias, Reports arthralgias, Reports joint swelling, Denies numbness and Denies tingling Neuro Denies Abnormal speech present, Denies behavioral changes, Denies vertigo, Denies dizziness, Denies headache(s), Denies loss of vision, Denies memory loss, Denies numbness and Denies tingling Psych Denies anxiety, Denies behavioral changes, Denies depression, Denies memory loss and Denies panic attacks Umair/Lymph Denies easy bleeding and Denies easy bruising Aller/Immun Denies wheezing Physical Exam Vital Signs: Last Vital Signs Pulse 64 01/25/24 13:32 Pulse Ox 93 01/25/24 13:32 Oxygen Delivery Method Room Air 01/25/24 13:32 BMI result Body Mass Index 36.2 Const General: alert HEENT Mouth: tongue abnormal discolored Neck Neck: Yes normal visual inspection, Yes full ROM and Yes no lymphadenopathy Chest Chest palpation & inspection: normal inspection of the chest Resp Effort & Inspection: normal respiratory effort Auscultation: diminished lung sounds Cardio Rate: regular rate Rhythm: regular rhythm Heart sounds: S1 normal heart sound present and S2 normal heart sound present GI Palpation (GI): Soft to palpation and nontender Auscultation: normal bowel sounds Skin General skin exam: rashes and/or lesions noted Neuro Speech: No Abnormal speech present Assessment & Plan Assessment & Plan (1) Asthma: Code(s): J45.909 - Unspecified asthma, uncomplicated Qualifiers: Asthma complication type: uncomplicated Asthma persistence: persistent Asthma severity: moderate Qualified Code(s): J45.40 - Moderate persistent asthma, uncomplicated (2) Hypogammaglobulinemia: Comment: better, off IVIG Code(s): D80.1 - Nonfamilial hypogammaglobulinemia (3) CHARLES (obstructive sleep apnea): Code(s): G47.33 - Obstructive sleep apnea (adult) (pediatric) (4) Asthma: Code(s): J45.909 - Unspecified asthma, uncomplicated Qualifiers: Asthma complication type: uncomplicated Asthma persistence: persistent Asthma severity: severe Qualified Code(s): J45.50 - Severe persistent asthma, uncomplicated (5) Chronic restrictive lung disease: Code(s): J98.4 - Other disorders of lung (6) Portal hypertension: Code(s): K76.6 - Portal hypertension Plan continue Fasenra injections allergy continue singular Asmanex short-acting beta agonist as needed start aldactone, low NA Bloodwork, check smooth muscle ab for autoimmune hepatitis follow-up in 6-8 months Orders: Orders Smooth Muscle Antibody Today K76.6 - Portal hypertension Basic Metabolic Panel Today J45.50 - Severe persistent asthma, uncomplicated Medications: New spironolactone (Aldactone) 25 mg PO DAILY 30 tabs 3RF 30 days Coding Level of Care Code Est Pt Level 4 (81826) Diagnoses Moderate persistent asthma without complication J45.40 Asthma complication type: uncomplicated Asthma persistence: persistent Asthma severity: moderate Hypogammaglobulinemia D80.1 CHARLES (obstructive sleep apnea) G47.33 Chronic restrictive lung disease J98.4 Portal hypertension K76.6 Time Spent (min) 17
== END 2024-01-25 13:55 | disposition home or self-care (01) ==
PROVIDERS: PCP Internal Medicine; Visit Provider Hospitalist
DX: J45.909 Unspecified asthma, uncomplicated (principal)
CPT/HCPCS: 94060; 94727; 94729; 99214

== ENCOUNTER 2024-03-15 10:32 | Outpatient (REF) | payer OTHER, SELFPAY ==
[2024-03-15 10:53] LABS: MANUAL DIFF FLAG NO
[2024-03-15 11:05] LABS: Hematocrit 35.5 % (37.0-47.0); Hemoglobin 11.6 g/dl (12.0-16.0); Imm Gran Abs Auto 0.01 X10*3/uL (0.00-0.03); Imm Gran Pct Auto 0.2 % (0.0-0.4); Lymphocytes Absolute Auto 1.3 X10*3/uL (1.2-4.9); Lymphocytes Percent Auto 25.3 % (20-40); Mean Corpuscular HGB Conc 32.7 g/dl (31.0-35.0); Mean Corpuscular Hemoglobin 26.2 pg (27.0-33.0); Mean Corpuscular Volume 80.3 fL (80.0-98.0); Mean Platelet Volume 10.4 fL (9.4-12.3); Monocytes Absolute Auto 0.3 X10*3/uL (0.1-1.2); Monocytes Percent Auto 6.7 % (2-11); Neutrophils Absolute Auto 3.4 x10*3/uL (2.0-8.3); Neutrophils Percent Auto 67.8 % (45-73); Platelet Count 107 X10*3/uL (160-400); Red Blood Count 4.42 X10*6/uL (4.20-5.50); Red Cell Distribution Width 15.7 % (11.0-16.0); White Blood Count 4.9 X10*3/uL (4.8-10.8)
[2024-03-15 11:12] LABS: Appearance Urine Clear; Color Urine Yellow; Glucose Urine UA Negative (Negative); Leukocyte Esterase Urine Moderate (2+) (Negative); Nitrite Urine Negative (Negative); UMIC TRIGGER UACC YES; Urine Blood Negative (Negative); Urine Ketones Negative (Negative); Urine Protein Negative (Neg-Trace)
[2024-03-15 11:14] LABS: Estimated Average Glucose 186 mg/dL; Hemoglobin A1c % 8.1 % (<6.0)
[2024-03-15 11:15] LABS: Bacteria Urine Trace (None Seen); Hyaline Casts Urine 0-2 /LPF (0-2); RBC Urine 0-2 /HPF (0-2); UACC Culture Trigger YES; WBC Urine 21-50 /HPF (0-5)
[2024-03-15 12:06] LABS: Creatinine Urine 30.17 mg/dL; Microalbumin Urine < 5.0 mg/L
[2024-03-15 12:19] LABS: Alanine Aminotransferase 61 U/L (0-31); Albumin Level 4.1 g/dL (3.5-5.0); Alkaline Phosphatase 98 U/L (39-117); Anion Gap 14 (12-20); Aspartate Amino Transferase 33 U/L (5-31); Bilirubin Total 1.1 mg/dL (0.0-1.0); Blood Urea Nitrogen 12 mg/dL (9-16); Calcium 9.4 mg/dL (8.4-10.2); Carbon Dioxide 26 mmol/L (22-29); Chloride 105 mmol/L (96-108); Cholesterol 137 mg/dL (<200); Estimated Glomerular Filt Rate > 60; Glucose Fasting 160 mg/dL (60-99); HDL Cholesterol 42 mg/dL (>40); LDL Cholesterol Calculated 76 mg/dL (<100); Potassium 4.2 mmol/L (3.3-5.1); Sodium 141 mmol/L (135-145); Total Protein 6.7 g/dL (6.5-8.0); Triglycerides 95 mg/dL (<150)
[2024-03-15 12:36] LABS: Free T4 (Free Thyroxine) 1.18 ng/dL (0.71-1.85); Thyroid Stimulating Hormone 0.48 uIU/mL (0.32-4.0); Vitamin D 25-OH Total 34.6 ng/mL (>30)
[2024-03-15 12:44] LABS: Vitamin B12 281 pg/mL (200-900)
== END 2024-03-15 10:33 | disposition home or self-care (01) ==
LOC: HO.LAB 10:32
PROVIDERS: PCP Internal Medicine; Visit Provider Internal Medicine
DX: D64.9 Anemia, unspecified (principal); E78.00 Pure hypercholesterolemia, unspecified; E11.9 Type 2 diabetes mellitus without complications; E53.8 Deficiency of other specified B group vitamins; E55.9 Vitamin D deficiency, unspecified; E03.9 Hypothyroidism, unspecified
CPT/HCPCS: 36415; 80053; 80061; 81001; 82043; 82306; 82570; 82607; 82746; 83036; 84439; 84443; 85025; 87086

== ENCOUNTER 2024-04-02 09:48 | Outpatient (AMB) | payer OTHER, SELFPAY ==
--- NOTE | 2024-04-02 09:55 | A.OFFVIS_ITS ---
Vital Signs 04/02/24 10:02 Height 5 ft 4 in Weight 213 lb 6.519 oz BMI 36.6 BP 136/88 Blood Pressure Location Rt brachial Position Sitting Pulse 68 Intake Visit Reasons: Left index finger lump Intake Note: Patient referred by pcp Dr. Strong for lump on lt index finger. Present for 2m. Patient c/o: enlarging, painful, swollen. Offset Label Rewinder Required: No Accompanied by: Self / Same As Patient Allergies cephalexin Allergy (Severe, Verified 04/02/24 10:00) Difficulty Breathing latex [LATEX] Allergy (Severe, Verified 04/02/24 10:00) Difficulty Breathing levofloxacin [From LEVAQUIN] Allergy (Severe, Verified 04/02/24 10:00) SHORTNESS OF BREATH, RASH, rash morphine [MORPHINE] Allergy (Severe, Verified 04/02/24 10:00) RASH, asthma exacerbation, rash baclofen [BACLOFEN] Allergy (Intermediate, Verified 04/02/24 10:00) Rash celecoxib [Celebrex] Allergy (Intermediate, Verified 04/02/24 10:00) itching, rash, flushing prednisone [PREDNISONE] Allergy (Intermediate, Verified 04/02/24 10:00) RASH, asthma exacerbation, rash codeine Allergy (Unknown, Verified 04/02/24 10:00) Rash gluten [GLUTEN] Allergy (Unknown, Verified 04/02/24 10:00) UNKNOWN oxycodone Allergy (Unknown, Verified 04/02/24 10:00) rash ranitidine Allergy (Unknown, Verified 04/02/24 10:00) unknown roflumilast [Daliresp] Allergy (Unknown, Verified 04/02/24 10:00) rash tramadol [TRAMADOL] Allergy (Unknown, Verified 04/02/24 10:00) RASH,SHORTNESS OF BREATH AND HEADACHE, asthma exacerbation, rash celery Allergy (Verified 04/02/24 10:00) Rash cyclobenzaprine [From Flexeril] Allergy (Verified 04/02/24 10:00) Rash and asthma exacerbation environmental allergies Allergy (Verified 04/02/24 10:00) Cleaning products cause asthma attack pineapple Allergy (Verified 04/02/24 10:00) Rash strawberry Allergy (Verified 04/02/24 10:00) Rash sulfamethoxazole [From Bactrim] Adverse Reaction (Intermediate, Verified 04/02/24 10:00) vertigo trimethoprim [From Bactrim] Adverse Reaction (Intermediate, Verified 04/02/24 10:00) vertigo diazepam [From Valium] Adverse Reaction (Verified 04/02/24 10:00) Cough HPI Comments Details: Patient whom I know from the past who presents here with proximally 2 to three- month history of left index finger soft tissue mass which fluctuates in size and has been inflamed. She has been given a course of antibiotics which has improved her symptoms.. She would like to have this evaluated and removed if possible. As noted above, patient has had prior minor procedures performed by me in the [facility]. Chart was reviewed and patient evaluated [facility] Medical History Anemia Chronic restrictive lung disease Brugada syndrome Shortness of breath Encounter for care related to Port-a-Cath Tinea pedis Recurrent cellulitis of lower extremity CHARLES (obstructive sleep apnea) Hypogammaglobulinemia Cellulitis of both lower extremities Right hip pain Lumbar degenerative disc disease Benign essential hypertension Obesity (BMI 30-39.9) Mitochondrial myopathy Asthma Diabetes mellitus History of revision of total replacement of right hip joint (~12/2019) Acquired hypothyroidism Pain of both hip joints Pure hypercholesterolemia Hx of cataract HTN (hypertension) Osteopenia Hypothyroidism Osteoarthritis of hip Gastritis Surgical History History of removal of Port-a-Cath History of total right hip arthroplasty (~06/03/19) History of eye surgery (~09/2017) History of hip surgery Hx of foot surgery (~01/02/19) History of removal of cyst Hx of left knee surgery History of elbow surgery (~07/2016) Hx of thumb surgery Hx of appendectomy Hx of hysterectomy (~07/2011) Hx of bilateral breast reduction surgery Family History Father Leukemia Mother Hypertension Diabetes Sister Alive and well Brother Pancreatic cancer Paternal Grandmother Stomach cancer Paternal Grandmother Throat cancer Social History Household Members: Family and Children Housing: Apartment Do you presently have visiting nurse or other home services: No Alcohol intake: former Comment: refused bed alarm Patient Tobacco Use Status: Never used Tobacco e-Cigarette/Vaping Use: Never Used Second Hand Smoke Exposure: No Advance Directives Date on File: 10/02/23 service: No Current occupational status: disabled Cognitive needs: No Hearing needs: No Vision needs: No Physical Exam Vital Signs: Last Vital Signs Pulse 68 04/02/24 10:02 BP 136/88 04/02/24 10:02 BMI result Body Mass Index 36.6 Extrem Other: Patient was a proximally 2 x 1 cm fluctuant noninfected cyst type mass over the middle phalangeal segment of her left hand index finger. The left hand and digits are otherwise grossly neurovascularly intact. Assessment & Plan Assessment & Plan (1) Digital mucous cyst of finger of left hand: Code(s): M67.442 - Ganglion, left hand Category: Surgical Plan Because of the size, location, and depth of this process, I think the patient will be best served by hand surgeon evaluation by Dr. Singer. Arrangements were made for this. All questions answered. Orders: Referrals Orthopedics Referral L02.512 - Cutaneous abscess of left hand, M67.442 - Ganglion, left hand Coding Level of Care Code New Pt Level 4 (55012) Diagnoses Digital mucous cyst of finger of left hand M67.442
[2024-04-02 10:02] VITALS: BP 136/88; PULSE 68; BMI 36.6
== END 2024-04-02 10:06 | disposition home or self-care (01) ==
PROVIDERS: PCP Internal Medicine; Referring Provider Internal Medicine; Visit Provider Surgery
DX: M67.442 Ganglion, left hand (principal)
CPT/HCPCS: 99213

== ENCOUNTER → 2024-04-02 09:48 | Outpatient (BNVA) | payer OTHER, SELFPAY | PROVIDERS: PCP Internal Medicine; Referring Provider Internal Medicine; Visit Provider Surgery | DX: M67.442 Ganglion, left hand (principal) | CPT/HCPCS: 99212 ==

== ENCOUNTER 2024-04-15 10:57 | Outpatient (REF) | payer OTHER, SELFPAY ==
[2024-04-15 11:56] LABS: MANUAL DIFF FLAG NO
[2024-04-15 12:03] LABS: Hemoglobin 11.7 g/dl (12.0-16.0); Imm Gran Abs Auto 0.02 X10*3/uL (0.00-0.03); Imm Gran Pct Auto 0.4 % (0.0-0.4); Lymphocytes Absolute Auto 1.5 X10*3/uL (1.2-4.9); Lymphocytes Percent Auto 27.2 % (20-40); Mean Corpuscular HGB Conc 32.5 g/dl (31.0-35.0); Mean Corpuscular Hemoglobin 26.6 pg (27.0-33.0); Mean Corpuscular Volume 81.8 fL (80.0-98.0); Monocytes Absolute Auto 0.4 X10*3/uL (0.1-1.2); Monocytes Percent Auto 6.9 % (2-11); Neutrophils Absolute Auto 3.7 x10*3/uL (2.0-8.3); Neutrophils Percent Auto 65.5 % (45-73); Red Cell Distribution Width 15.3 % (11.0-16.0); White Blood Count 5.6 X10*3/uL (4.8-10.8)
[2024-04-15 12:04] LABS: Platelet Count 96 X10*3/uL (160-400)
[2024-04-15 12:11] LABS: INTERNATIONAL NORM RATIO 0.9 (0.9-1.1); Prothrombin Time 11.4 SEC (11.1-13.3)
[2024-04-15 12:39] LABS: Alanine Aminotransferase 51 U/L (0-31); Albumin Level 3.8 g/dL (3.5-5.0); Alkaline Phosphatase 84 U/L (39-117); Anion Gap 11 (12-20); Aspartate Amino Transferase 28 U/L (5-31); Bilirubin Total 0.8 mg/dL (0.0-1.0); Blood Urea Nitrogen 20 mg/dL (9-16); Calcium 9.2 mg/dL (8.4-10.2); Carbon Dioxide 25 mmol/L (22-29); Chloride 106 mmol/L (96-108); Estimated Glomerular Filt Rate > 60; Glucose Random 216 mg/dL (60-115); Sodium 138 mmol/L (135-145); Total Protein 6.3 g/dL (6.5-8.0)
== END 2024-04-15 10:58 | disposition home or self-care (01) ==
LOC: HO.LAB 10:57
PROVIDERS: PCP Internal Medicine; Visit Provider Internal Medicine Gastroenterology
DX: K75.81 Nonalcoholic steatohepatitis (NASH) (principal); K76.6 Portal hypertension; K92.2 Gastrointestinal hemorrhage, unspecified
CPT/HCPCS: 36415; 80053; 85025; 85610; 99212

== ENCOUNTER 2024-04-15 10:57 | Outpatient (AMB) | payer OTHER, SELFPAY ==
[2024-04-15 11:05] VITALS: BP 133/75; PULSE 68; BMI 37.1
--- NOTE | 2024-04-15 11:05 | A.OFFVIS_ITS ---
Vital Signs 04/15/24 11:05 Height 5 ft 4 in Weight 216 lb 0.848 oz BMI 37.1 BP 133/75 Blood Pressure Location Lt brachial Position Sitting Pulse 68 Intake Visit Reasons: 4 month follow up Intake Note: Deysi presents in the office as a 4 month follow up. CC: She states that there is nothing new concerning at this time. 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 Required: No Allergies cephalexin Allergy (Severe, Verified 04/15/24 11:08) Difficulty Breathing latex [LATEX] Allergy (Severe, Verified 04/15/24 11:08) Difficulty Breathing levofloxacin [From LEVAQUIN] Allergy (Severe, Verified 04/15/24 11:08) SHORTNESS OF BREATH, RASH, rash morphine [MORPHINE] Allergy (Severe, Verified 04/15/24 11:08) RASH, asthma exacerbation, rash baclofen [BACLOFEN] Allergy (Intermediate, Verified 04/15/24 11:08) Rash celecoxib [Celebrex] Allergy (Intermediate, Verified 04/15/24 11:08) itching, rash, flushing prednisone [PREDNISONE] Allergy (Intermediate, Verified 04/15/24 11:08) RASH, asthma exacerbation, rash codeine Allergy (Unknown, Verified 04/15/24 11:08) Rash gluten [GLUTEN] Allergy (Unknown, Verified 04/15/24 11:08) UNKNOWN oxycodone Allergy (Unknown, Verified 04/15/24 11:08) rash ranitidine Allergy (Unknown, Verified 04/15/24 11:08) unknown roflumilast [Daliresp] Allergy (Unknown, Verified 04/15/24 11:08) rash tramadol [TRAMADOL] Allergy (Unknown, Verified 04/15/24 11:08) RASH,SHORTNESS OF BREATH AND HEADACHE, asthma exacerbation, rash celery Allergy (Verified 04/15/24 11:08) Rash cyclobenzaprine [From Flexeril] Allergy (Verified 04/15/24 11:08) Rash and asthma exacerbation environmental allergies Allergy (Verified 04/15/24 11:08) Cleaning products cause asthma attack pineapple Allergy (Verified 04/15/24 11:08) Rash strawberry Allergy (Verified 04/15/24 11:08) Rash sulfamethoxazole [From Bactrim] Adverse Reaction (Intermediate, Verified 04/15/24 11:08) vertigo trimethoprim [From Bactrim] Adverse Reaction (Intermediate, Verified 04/15/24 11:08) vertigo diazepam [From Valium] Adverse Reaction (Verified 04/15/24 11:08) Cough HPI HPI 4 month follow up: Details: 53-year-old female with past medical history of Brugada syndorme and non cirrhotic portal hypertension with history of variceal bleeding, who I am seeing for f/u RECAP: Pt with non cirrhotic portal hypertension issues with melena and anemia Upper endoscopy September 2023 with EVBL. Also had multiple gastric polyps. Path: Hyperplastic polyp without dysplasia. No H pylori. Further admission: EGD and colo 11/21/23 EVBL and gastric polyps removed INTERIM: she went for TIPS assessment she is not keen on it she has occ dark stools- 'not too bad'\ no nausea or vomiting she is taking statin and carvedilol v occ ruq pain and discomfort, occ bloating and constipation--she takes miralax which works sometimes EXAM: GENERAL: The patient is well developed and nontoxic. VITAL SIGNS:see workflow HEENT: Nonicteric sclerae, PERRLA, EOMI. Oropharynx clear. Moist mucous membranes. Conjunctivae appear well perfused. No thyroid mass. CHEST: Chest wall is nontender. HEART: Regular rate and rhythm without murmurs. LUNGS: Clear to auscultation bilaterally. ABDOMEN: Soft, positive bowel sounds, nontender, no organomegaly.no flank tenderness SKIN: No rash, no excessive bruising, petechiae, or purpura. NEUROLOGIC: Cranial nerves II-XII intact without motor/sensory deficit. Psych: normal affect A/P: 1/ NRH of the liver with severe portal hypertension and congestion, prob causing her satiety etc PLAN: 1/ cont with carvedilol and statin 2/ referred to IR for TIPS but she wants to hold and see what next EGD shows, will also rept labs given her dark stools 3/ EGD pending next few weeks [facility] Medical History Anemia Chronic restrictive lung disease Brugada syndrome Shortness of breath Encounter for care related to Port-a-Cath Tinea pedis Recurrent cellulitis of lower extremity CHARLES (obstructive sleep apnea) Hypogammaglobulinemia Cellulitis of both lower extremities Right hip pain Lumbar degenerative disc disease Benign essential hypertension Obesity (BMI 30-39.9) Mitochondrial myopathy Asthma Diabetes mellitus History of revision of total replacement of right hip joint (~12/2019) Acquired hypothyroidism Pain of both hip joints Pure hypercholesterolemia Hx of cataract HTN (hypertension) Osteopenia Hypothyroidism Osteoarthritis of hip Gastritis Surgical History History of removal of Port-a-Cath History of total right hip arthroplasty (~06/03/19) History of eye surgery (~09/2017) History of hip surgery Hx of foot surgery (~01/02/19) History of removal of cyst Hx of left knee surgery History of elbow surgery (~07/2016) Hx of thumb surgery Hx of appendectomy Hx of hysterectomy (~07/2011) Hx of bilateral breast reduction surgery Family History Father Leukemia Mother Hypertension Diabetes Sister Alive and well Brother Pancreatic cancer Paternal Grandmother Stomach cancer Paternal Grandmother Throat cancer Social History Household Members: Family and Children Housing: Apartment Do you presently have visiting nurse or other home services: No Alcohol intake: former Comment: refused bed alarm Patient Tobacco Use Status: Never used Tobacco e-Cigarette/Vaping Use: Never Used Second Hand Smoke Exposure: No Advance Directives Date on File: 10/02/23 service: No Current occupational status: disabled Cognitive needs: No Hearing needs: No Vision needs: No Physical Exam Vital Signs: BMI result Body Mass Index 37.1 Assessment & Plan Assessment & Plan (1) Upper GI bleed: Code(s): K92.2 - Gastrointestinal hemorrhage, unspecified Category: Medical Plan: see above (2) Portal hypertension: Code(s): K76.6 - Portal hypertension Category: Medical Plan: see above Orders: Orders Comprehensive Met. Panel Today K75.81 - Nonalcoholic steatohepatitis (BENEDICT), K76.6 - Portal hypertension, K92.2 - Gastrointestinal hemorrhage, unspecified Complete Blood Count Auto Diff Today K76.6 - Portal hypertension, K92.2 - Gastrointestinal hemorrhage, unspecified Prothrombin Time INR Today K76.6 - Portal hypertension, K92.2 - Gastrointestinal hemorrhage, unspecified Medications: Discontinued azithromycin Discontinued Reason: Patient no longer taking 500 mg PO DAILY 5 days 5 tabs 0RF methylprednisolone (Medrol (Jarrett)) Discontinued Reason: Patient Completed Course orally daily; take 2 tabs daily twice a day x 4, then 1 tab twice a day x 4 days, then 1 tab daily x 4 days 12 days 28 ea 0RF Coding Level of Care Code Est Pt Level 3 (30361) Diagnoses Upper GI bleed K92.2 Portal hypertension K76.6
== END 2024-04-15 11:19 | disposition home or self-care (01) ==
PROVIDERS: PCP Internal Medicine; Visit Provider Internal Medicine Gastroenterology
DX: K92.2 Gastrointestinal hemorrhage, unspecified (principal); K76.6 Portal hypertension
CPT/HCPCS: 99213

== ENCOUNTER 2024-04-17 10:24 | Outpatient (AMB) | payer OTHER, SELFPAY ==
--- NOTE | 2024-04-17 10:25 | A.OFFVIS_ITS ---
Vital Signs 04/17/24 10:27 Height 5 ft 4 in Weight 213 lb 13.574 oz BMI 36.7 BP 116/78 Blood Pressure Location Rt brachial Position Sitting Pulse 65 Pulse Source Pulse Oximeter Intake Visit Reasons: T1DM/LVM Intake Note: Patient presents today for f/u treatment for DM Type 1: (LORNE) Last Diabetic Eye Exam: DUE Last Podiatry Exam- Does not see a Autocad Technician Random Glucose- 153 mg/dL, Today Most recent HbA1c- 8.1 %, 03/15/2024 Splicer Operator Required: No Accompanied by: Self / Same As Patient Allergies cephalexin Allergy (Severe, Verified 04/17/24 10:30) Difficulty Breathing latex [LATEX] Allergy (Severe, Verified 04/17/24 10:30) Difficulty Breathing levofloxacin [From LEVAQUIN] Allergy (Severe, Verified 04/17/24 10:30) SHORTNESS OF BREATH, RASH, rash morphine [MORPHINE] Allergy (Severe, Verified 04/17/24 10:30) RASH, asthma exacerbation, rash baclofen [BACLOFEN] Allergy (Intermediate, Verified 04/17/24 10:30) Rash celecoxib [Celebrex] Allergy (Intermediate, Verified 04/17/24 10:30) itching, rash, flushing prednisone [PREDNISONE] Allergy (Intermediate, Verified 04/17/24 10:30) RASH, asthma exacerbation, rash codeine Allergy (Unknown, Verified 04/17/24 10:30) Rash gluten [GLUTEN] Allergy (Unknown, Verified 04/17/24 10:30) UNKNOWN oxycodone Allergy (Unknown, Verified 04/17/24 10:30) rash ranitidine Allergy (Unknown, Verified 04/17/24 10:30) unknown roflumilast [Daliresp] Allergy (Unknown, Verified 04/17/24 10:30) rash tramadol [TRAMADOL] Allergy (Unknown, Verified 04/17/24 10:30) RASH,SHORTNESS OF BREATH AND HEADACHE, asthma exacerbation, rash celery Allergy (Verified 04/17/24 10:30) Rash cyclobenzaprine [From Flexeril] Allergy (Verified 04/17/24 10:30) Rash and asthma exacerbation environmental allergies Allergy (Verified 04/17/24 10:30) Cleaning products cause asthma attack pineapple Allergy (Verified 04/17/24 10:30) Rash strawberry Allergy (Verified 04/17/24 10:30) Rash sulfamethoxazole [From Bactrim] Adverse Reaction (Intermediate, Verified 04/17/24 10:30) vertigo trimethoprim [From Bactrim] Adverse Reaction (Intermediate, Verified 04/17/24 10:30) vertigo diazepam [From Valium] Adverse Reaction (Verified 04/17/24 10:30) Cough HPI Comments Details: The patient is a 53-year-old female who was seen today follow-up for LORNE type 1 diabetes. She has positive anti daphnie D5 antibody. She was last seen by Dr. Mahan 03/03/2023. She was previously seen by Dr. Mahan for polycystic ovary syndrome and hypothyroidism she has had prior episodes of pancreatitis in the past. She was initially diagnosed with diabetes approximately 2015 and was treated with metformin. Most recent A1C 03/15/24 8.1% up from 7.3% earlier in the year Tresiba 5 units (she has now been taking ( Fiasp 6-10 3 times per day occasionally takes a higher dose if she is in the 300 range. Metformin 100mg bid was sent by PCP 1 week ago She would like to stop She checks her sugar: 1-3 times per day Average sugar: 212 Morning sugars have been 153-60 with most a.m. readings below 170 later in the day she has been 175 to 286. She was started on steroids 2 weeks ago which were discontinued 04/15/24. She does report that prior to this time her sugars were under better control with that she was still using the Fiasp regularly She is family history of type 2 diabetes: Mother with type 2 Brother with type 1 diagnosed in childhood Her last eye examination was 07/08, she denies retinopathy. Denies nephropathy, she is on an ARB. Denies numbness, tingling, cramping in the legs She has HLD, on statin, denies CAD She was last seen by the religious educator 06/23/22. Diet: She has seen a principal investigator in the past and declines referral. She is gluten intolerant and has other dietary intolerances. [facility] Medical History Anemia Chronic restrictive lung disease Brugada syndrome Shortness of breath Encounter for care related to Port-a-Cath Tinea pedis Recurrent cellulitis of lower extremity CHARLES (obstructive sleep apnea) Hypogammaglobulinemia Cellulitis of both lower extremities Right hip pain Lumbar degenerative disc disease Benign essential hypertension Obesity (BMI 30-39.9) Mitochondrial myopathy Asthma Diabetes mellitus History of revision of total replacement of right hip joint (~12/2019) Acquired hypothyroidism Pain of both hip joints Pure hypercholesterolemia Hx of cataract HTN (hypertension) Osteopenia Hypothyroidism Osteoarthritis of hip Gastritis Surgical History History of removal of Port-a-Cath History of total right hip arthroplasty (~06/03/19) History of eye surgery (~09/2017) History of hip surgery Hx of foot surgery (~01/02/19) History of removal of cyst Hx of left knee surgery History of elbow surgery (~07/2016) Hx of thumb surgery Hx of appendectomy Hx of hysterectomy (~07/2011) Hx of bilateral breast reduction surgery Family History Father Leukemia Mother Hypertension Diabetes Sister Alive and well Brother Pancreatic cancer Paternal Grandmother Stomach cancer Paternal Grandmother Throat cancer Social History Household Members: Family and Children Housing: Apartment Do you presently have visiting nurse or other home services: No Alcohol intake: former Comment: refused bed alarm Patient Tobacco Use Status: Never used Tobacco e-Cigarette/Vaping Use: Never Used Second Hand Smoke Exposure: No Advance Directives Date on File: 10/02/23 service: No Current occupational status: disabled Cognitive needs: No Hearing needs: No Vision needs: No Physical Exam Vital Signs: Last Vital Signs Pulse 65 04/17/24 10:27 BP 116/78 04/17/24 10:27 BMI result Body Mass Index 36.7 Const General: cooperative, healthy appearing and no acute distress Nutritional Appearance: overweight Orientation/consciousness: oriented to person Limitations: no limitations Neck Neck: Yes normal visual inspection Thyroid: Thyroid normal Resp Effort & Inspection: normal respiratory effort Cardio Jugular venous distension: no JVD Rate: regular rate Rhythm: regular rhythm Heart sounds: S1 normal heart sound present and S2 normal heart sound present Neuro General: oriented to person Extrem Other: Visual exam of foot performed. No ulcerations or open lesions. No onchomycosis, no callouses. Sensation intact to monofilament exam. Vibratory sensation is normal with 128 Hz tuning fork. No edema. Well-healed scar right foot Results Reviewed Results Reviewed: Laboratory Last Values Glucose (Clinic) 153 mg/dL (60-115) H 04/17/24 10:35 Laboratory Tests 12/13/23 03/15/24 03/15/24 12:07 10:50 10:51 Potassium 3.9 D Creatinine 0.69 Estimated GFR > 60 Hemoglobin A1c % 7.3 H 8.1 H Calcium 9.5 D Total Bilirubin AST ALT Alkaline Phosphatase Albumin Triglycerides 95 Cholesterol 137 LDL Cholesterol, Calc 76 HDL Cholesterol 42 Vitamin B12 281 25-OH Vitamin D Total 34.6 TSH 0.48 Free T4 1.18 Urine Creatinine 30.17 Urine Microalbumin < 5.0 Microalb/Creat Ratio TNP 04/15/24 11:54 Potassium Creatinine Estimated GFR Hemoglobin A1c % Calcium 9.2 Total Bilirubin 0.8 AST 28 ALT 51 H Alkaline Phosphatase 84 Albumin 3.8 Triglycerides Cholesterol LDL Cholesterol, Calc HDL Cholesterol Vitamin B12 25-OH Vitamin D Total TSH Free T4 Urine Creatinine Urine Microalbumin Microalb/Creat Ratio Assessment & Plan Assessment & Plan (1) 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 Her sugar average was elevated over the last few weeks due to steroids. She was counseled to take the following diabetes medications Tresiba 5 units daily Fiasp 6-10 3 times per day Stop metformin. She was counseled on the nature of latent autoimmune diabetes of adulthood. Counseled that oral medications would not be effective. She declined a visit with Alpa MERRITT/Bonnie Vanegas RD,States she does not have any educational needs and her diet is so specific due to her intolerances that she has not found nutrition visits to be of benefit. She has allergic reactions to tapes and does not feel comfortable trying a sensor. The patient was counseled to regularly space meals and snacks. The patient was counseled to always carry a source of sugar and on the rule of 15's: Take 3 glucose tablets and repeat again in 15 minutes if blood sugar is not in normal range. Continue to repeat every 15 minutes until blood sugar is normal. She will return in 2 months to review her numbers testing 3 times daily. She will call the office if she is not at [facility]. 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
[2024-04-17 10:27] VITALS: BP 116/78; PULSE 65; BMI 36.7
[2024-04-17 10:39] LABS: Glucose, Whole Blood 153 mg/dL (60-115)
== END 2024-04-17 11:22 | disposition home or self-care (01) ==
PROVIDERS: PCP Internal Medicine; Visit Provider Nurse Practitioner Adult Health
DX: E13.9 Other specified diabetes mellitus without complications (principal)
CPT/HCPCS: 99215

== ENCOUNTER → 2024-04-17 10:24 | Outpatient (BNVA) | payer OTHER, SELFPAY | PROVIDERS: PCP Internal Medicine; Visit Provider Nurse Practitioner Adult Health | DX: E13.9 Other specified diabetes mellitus without complications (principal); Z79.4 Long term (current) use of insulin | CPT/HCPCS: 82947; 99212 ==

== ENCOUNTER 2024-05-09 08:39 | Day surgery (SDC) | payer OTHER, SELFPAY ==
[2024-05-07 15:44] VITALS: BMI 37.1
--- NOTE | 2024-05-08 11:52 | HO.ANESPROP2 ---
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), managed as type 1 (Acute) Digital mucous cyst of finger of left hand (Acute) Abscess of left index finger (Acute) Intertrigo (Acute) Portal hypertension (Acute) Upper GI bleed (Acute) Left hip pain (Acute) Neck pain (Acute) Lipoma (Acute) Ganglion cyst (Acute) Cellulitis of chest wall (Acute) Dizziness (Acute) Port-A-Cath in place (Acute) Chalazion right upper eyelid (Acute) Preop cardiovascular exam (Acute) Pain from implanted hardware (Acute) Preoperative examination (Acute) Soft tissue calcification (Acute) Skin lesion of scalp (Acute) Mild anxiety (Acute) Cellulitis of right lower leg (Acute) Lipoma (Acute) Cellulitis (Acute) Cellulitis of foot (Acute) Abnormal EKG (Acute) Tinea cruris (Acute) Anemia (Chronic) Gastritis (Acute) Osteoarthritis of hip (Acute) Hypothyroidism (Acute) Osteopenia (Acute) Pure hypercholesterolemia (Acute) Pain of both hip joints (Acute) Acquired hypothyroidism (Acute) Asthma (Acute) Benign essential hypertension (Acute) Lumbar degenerative disc disease (Acute) Right hip pain (Acute) Cellulitis of both lower extremities (Acute) Asthma (Acute) Hypogammaglobulinemia (Acute) CHARLES (obstructive sleep apnea) (Acute) Recurrent cellulitis of lower extremity (Acute) Tinea pedis (Acute) Encounter for care related to Port-a-Cath (Acute) Past Medical History Medical History Anemia Chronic restrictive lung disease Brugada syndrome Shortness of breath Encounter for care related to Port-a-Cath Tinea pedis Recurrent cellulitis of lower extremity CHARLSE (obstructive sleep apnea) Hypogammaglobulinemia Cellulitis of both lower extremities Right hip pain Lumbar degenerative disc disease Benign essential hypertension Obesity (BMI 30-39.9) Mitochondrial myopathy Asthma Diabetes mellitus History of revision of total replacement of right hip joint (~12/2019) Acquired hypothyroidism Pain of both hip joints Pure hypercholesterolemia Hx of cataract HTN (hypertension) Osteopenia Hypothyroidism Osteoarthritis of hip Gastritis Family History Family History Father Leukemia Mother Hypertension Diabetes Sister Alive and well Brother Pancreatic cancer Paternal Grandmother Stomach cancer Paternal Grandmother Throat cancer Family history of problems with anesthesia: No Surgical History Surgical History History of removal of Port-a-Cath History of total right hip arthroplasty (~06/03/19) History of eye surgery (~09/2017) History of hip surgery Hx of foot surgery (~01/02/19) History of removal of cyst Hx of left knee surgery History of elbow surgery (~07/2016) Hx of thumb surgery Hx of appendectomy Hx of hysterectomy (~07/2011) Hx of bilateral breast reduction surgery History of Problems with Anesthesia: No Social History Social History Household Members: Family and Children Housing: Apartment Do you presently have visiting nurse or other home services: No Alcohol intake: former Comment: refused bed alarm Patient Tobacco Use Status: Never used Tobacco e-Cigarette/Vaping Use: Never Used Second Hand Smoke Exposure: No Are you DNR?: No Advance Directives: No Advance Directives Information Provided: Yes Advance Directives Date on File: 10/02/23 Nutrition Risks: No Nutritional Risk service: No Current occupational status: disabled Cognitive needs: No Hearing needs: No Vision needs: No Meds Allergies Allergy/AdvReac Type Severity Reaction Status Date / Time cephalexin Allergy Severe Difficulty Verified 05/09/24 08:55 Breathing latex [LATEX] Allergy Severe Difficulty Verified 05/09/24 08:55 Breathing levofloxacin [From LEVAQUIN] Allergy Severe SHORTNESS Verified 05/09/24 08:55 OF BREATH, RASH, rash morphine [MORPHINE] Allergy Severe RASH, Verified 05/09/24 08:55 asthma exacerbation, rash baclofen [BACLOFEN] Allergy Intermediate Rash Verified 05/09/24 08:55 celecoxib [Celebrex] Allergy Intermediate itching, Verified 05/09/24 08:55 rash, flushing prednisone [PREDNISONE] Allergy Intermediate RASH, Verified 05/09/24 08:55 asthma exacerbation, rash codeine Allergy Unknown Rash Verified 05/09/24 08:55 gluten [GLUTEN] Allergy Unknown UNKNOWN Verified 05/09/24 08:55 oxycodone Allergy Unknown rash Verified 05/09/24 08:55 ranitidine Allergy Unknown unknown Verified 05/09/24 08:55 roflumilast [Daliresp] Allergy Unknown rash Verified 05/09/24 08:55 tramadol [TRAMADOL] Allergy Unknown RASH,SHORTNESS Verified 05/09/24 08:55 OF BREATH AND HEADACHE, asthma exacerbation, rash celery Allergy Rash Verified 05/09/24 08:55 cyclobenzaprine Allergy Rash and Verified 05/09/24 08:55 [From Flexeril] asthma exacerbation environmental allergies Allergy Cleaning Verified 05/09/24 08:55 products cause asthma attack pineapple Allergy Rash Verified 05/09/24 08:55 strawberry Allergy Rash Verified 05/09/24 08:55 sulfamethoxazole AdvReac Intermediate vertigo Verified 05/09/24 08:55 [From Bactrim] trimethoprim [From Bactrim] AdvReac Intermediate vertigo Verified 05/09/24 08:55 diazepam [From Valium] AdvReac Cough Verified 05/09/24 08:55 Home Medications ?Medication ?Instructions ?Recorded ?Confirmed ?Last Taken ?Type ipratropium bromide 42 mcg (0.06 2 spray intranasal DAILY 03/11/21 04/02/24 11/18/23 History %) nasal spray benralizumab 30 mg/mL subcutaneous 30 mg subcut Q8W 10/06/22 05/09/24 10/04/23 History syringe (Fasenra) pyridostigmine bromide 60 mg tablet 60 mg PO TID 01/02/23 04/02/24 11/18/23 History nebulizers 03/09/23 04/02/24 Unknown History bismuth subsalicylate 262 mg 2 mg PO DAILY PRN Diarrhea 11/20/23 04/02/24 Unknown History tablet (Pepto-Bismol) carvedilol 6.25 mg tablet 6.25 mg PO DAILY for blood pressure 04/15/24 05/09/24 Unknown History epinephrine 0.3 mg/0.3 mL IM DIRECTED anaphylaxis 04/15/24 Unknown History injection, auto-injector mometasone 200 mcg/actuation HFA 2 puff inhalation BID 04/15/24 Unknown History aerosol inhaler (Asmanex HFA) Exam Height,Weight and Vital Signs: Height 5 ft 4 in Weight 97.976 kg Pertinent Lab Results Pertinent Lab Results: Laboratory Tests 04/15/24 11:54 WBC 5.6 Hgb 11.7 L Hct 36.0 L Plt Count 96 L Sodium 138 Potassium 4.0 Chloride 106 Carbon Dioxide 25 BUN 20 H Creatinine 0.85 Narrative Narrative: EKG 11/2023 Vent. Rate : 113 BPM Atrial Rate : 113 BPM P-R Int : 140 ms QRS Dur : 148 ms QT Int : 372 ms P-R-T Axes : 031 -31 002 degrees QTc Int : 510 ms Sinus tachycardia Left axis deviation Right bundle branch block Minimal voltage criteria for LVH, may be normal variant ( R in aVL ) Abnormal ECG When compared with ECG of 26-SEP-2023 13:28, Vent. rate has increased BY 38 BPM Airway Mallampati Class: III TM Dist: >3cm Neck ROM: Full Assessment and Plan Assessment Anesthesia Assessment: Chart Reviewed Final Anesthetic Review Family History of Problems with Anesthesia: No History of Problems with Anesthesia: No Documented by User: Janna Israel MD 05/09/24 09:02 REPLACED BY [facility] Past Medical History Medical History Anemia Chronic restrictive lung disease Brugada syndrome Shortness of breath Encounter for care related to Port-a-Cath Tinea pedis Recurrent cellulitis of lower extremity CHARLES (obstructive sleep apnea) Hypogammaglobulinemia Cellulitis of both lower extremities Right hip pain Lumbar degenerative disc disease Benign essential hypertension Obesity (BMI 30-39.9) Mitochondrial myopathy Asthma Diabetes mellitus History of revision of total replacement of right hip joint (~12/2019) Acquired hypothyroidism Pain of both hip joints Pure hypercholesterolemia Hx of cataract HTN (hypertension) Osteopenia Hypothyroidism Osteoarthritis of hip Gastritis Family History Family History Father Leukemia Mother Hypertension Diabetes Sister Alive and well Brother Pancreatic cancer Paternal Grandmother Stomach cancer Paternal Grandmother Throat cancer Surgical History Surgical History History of removal of Port-a-Cath History of total right hip arthroplasty (~06/03/19) History of eye surgery (~09/2017) History of hip surgery Hx of foot surgery (~01/02/19) History of removal of cyst Hx of left knee surgery History of elbow surgery (~07/2016) Hx of thumb surgery Hx of appendectomy Hx of hysterectomy (~07/2011) Hx of bilateral breast reduction surgery Social History Social History Household Members: Family and Children Housing: Apartment Do you presently have visiting nurse or other home services: No Alcohol intake: former Comment: refused bed alarm Patient Tobacco Use Status: Never used Tobacco e-Cigarette/Vaping Use: Never Used Second Hand Smoke Exposure: No Are you DNR?: No Advance Directives: No Advance Directives Information Provided: Yes Advance Directives Date on File: 10/02/23 Nutrition Risks: No Nutritional Risk service: No Current occupational status: disabled Cognitive needs: No Hearing needs: No Vision needs: No Meds Allergies Allergy/AdvReac Type Severity Reaction Status Date / Time cephalexin Allergy Severe Difficulty Verified 05/09/24 08:55 Breathing latex [LATEX] Allergy Severe Difficulty Verified 05/09/24 08:55 Breathing levofloxacin [From LEVAQUIN] Allergy Severe SHORTNESS Verified 05/09/24 08:55 OF BREATH, RASH, rash morphine [MORPHINE] Allergy Severe RASH, Verified 05/09/24 08:55 asthma exacerbation, rash baclofen [BACLOFEN] Allergy Intermediate Rash Verified 05/09/24 08:55 celecoxib [Celebrex] Allergy Intermediate itching, Verified 05/09/24 08:55 rash, flushing prednisone [PREDNISONE] Allergy Intermediate RASH, Verified 05/09/24 08:55 asthma exacerbation, rash codeine Allergy Unknown Rash Verified 05/09/24 08:55 gluten [GLUTEN] Allergy Unknown UNKNOWN Verified 05/09/24 08:55 oxycodone Allergy Unknown rash Verified 05/09/24 08:55 ranitidine Allergy Unknown unknown Verified 05/09/24 08:55 roflumilast [Daliresp] Allergy Unknown rash Verified 05/09/24 08:55 tramadol [TRAMADOL] Allergy Unknown RASH,SHORTNESS Verified 05/09/24 08:55 OF BREATH AND HEADACHE, asthma exacerbation, rash celery Allergy Rash Verified 05/09/24 08:55 cyclobenzaprine Allergy Rash and Verified 05/09/24 08:55 [From Flexeril] asthma exacerbation environmental allergies Allergy Cleaning Verified 05/09/24 08:55 products cause asthma attack pineapple Allergy Rash Verified 05/09/24 08:55 strawberry Allergy Rash Verified 05/09/24 08:55 sulfamethoxazole AdvReac Intermediate vertigo Verified 05/09/24 08:55 [From Bactrim] trimethoprim [From Bactrim] AdvReac Intermediate vertigo Verified 05/09/24 08:55 diazepam [From Valium] AdvReac Cough Verified 05/09/24 08:55 Home Medications ?Medication ?Instructions ?Recorded ?Confirmed ?Last Taken ?Type ipratropium bromide 42 mcg (0.06 2 spray intranasal DAILY 03/11/21 04/02/24 11/18/23 History %) nasal spray benralizumab 30 mg/mL subcutaneous 30 mg subcut Q8W 10/06/22 05/09/24 10/04/23 History syringe (Fasenra) pyridostigmine bromide 60 mg tablet 60 mg PO TID 01/02/23 04/02/24 11/18/23 History nebulizers 03/09/23 04/02/24 Unknown History bismuth subsalicylate 262 mg 2 mg PO DAILY PRN Diarrhea 11/20/23 04/02/24 Unknown History tablet (Pepto-Bismol) carvedilol 6.25 mg tablet 6.25 mg PO DAILY for blood pressure 04/15/24 05/09/24 Unknown History epinephrine 0.3 mg/0.3 mL IM DIRECTED anaphylaxis 04/15/24 Unknown History injection, auto-injector mometasone 200 mcg/actuation HFA 2 puff inhalation BID 04/15/24 Unknown History aerosol inhaler (Asmanex HFA) Exam Airway Heart: rrr Lungs: cta Assessment and Plan Assessment Anesthesia Assessment: Anesthesia Plan Discussed Final Anesthetic Review NPO: Yes ASA Class: III Final Preanesthetic Review: No Changes in Pt Med Stat, Meds/Allgs Chart Reviewed, Consent Obtained/Reviewed and Anes Risks/Benef Reviewed Patient Risk: Intermediate Procedure Risk: Low Anesthetic Plan Anesthetic Plan: MAC: Disposition: Standard PACU
[2024-05-09] VITALS (10 sets, daily range): BP systolic 137–156; BP diastolic 63–96; PULSE 56–77; RESP 16–20; TEMP 36.4–36.8; O2SAT 92–100
[2024-05-09] MEDS: Lactated Ringers 1,000 ML 100 ML IVCONT (08:58)
[2024-05-09 09:20] LABS: Glucose, Whole Blood 134 mg/dL (60-115)
--- NOTE | 2024-05-09 10:32 | MHC.SHP ---
Pre-Procedural Eval Section A - 24 Hr Update-Section A only Date of Service: 05/09/24 The patient is an INPATIENT: No The patient has been examined within 24 hours of the surgical procedure. The History & Physical has been completed within 30 days and I have reviewed it.: Yes Section B - Complete if H&P > 30 days Chief Complaint: Esophageal varices without bleeding Allergies: Allergies Allergy/AdvReac Type Severity Reaction Status Date / Time cephalexin Allergy Severe Difficulty Verified 05/09/24 08:55 Breathing latex [LATEX] Allergy Severe Difficulty Verified 05/09/24 08:55 Breathing levofloxacin [From LEVAQUIN] Allergy Severe SHORTNESS Verified 05/09/24 08:55 OF BREATH, RASH, rash morphine [MORPHINE] Allergy Severe RASH, Verified 05/09/24 08:55 asthma exacerbation, rash baclofen [BACLOFEN] Allergy Intermediate Rash Verified 05/09/24 08:55 celecoxib [Celebrex] Allergy Intermediate itching, Verified 05/09/24 08:55 rash, flushing prednisone [PREDNISONE] Allergy Intermediate RASH, Verified 05/09/24 08:55 asthma exacerbation, rash codeine Allergy Unknown Rash Verified 05/09/24 08:55 gluten [GLUTEN] Allergy Unknown UNKNOWN Verified 05/09/24 08:55 oxycodone Allergy Unknown rash Verified 05/09/24 08:55 ranitidine Allergy Unknown unknown Verified 05/09/24 08:55 roflumilast [Daliresp] Allergy Unknown rash Verified 05/09/24 08:55 tramadol [TRAMADOL] Allergy Unknown RASH,SHORTNESS Verified 05/09/24 08:55 OF BREATH AND HEADACHE, asthma exacerbation, rash celery Allergy Rash Verified 05/09/24 08:55 cyclobenzaprine Allergy Rash and Verified 05/09/24 08:55 [From Flexeril] asthma exacerbation environmental allergies Allergy Cleaning Verified 05/09/24 08:55 products cause asthma attack pineapple Allergy Rash Verified 05/09/24 08:55 strawberry Allergy Rash Verified 05/09/24 08:55 sulfamethoxazole AdvReac Intermediate vertigo Verified 05/09/24 08:55 [From Bactrim] trimethoprim [From Bactrim] AdvReac Intermediate vertigo Verified 05/09/24 08:55 diazepam [From Valium] AdvReac Cough Verified 05/09/24 08:55 Plan Diagnosis/Plan: Unchanged I have reviewed the history and physical and performed a pertinent physical examination on my patient. No changes have occurred unless specified. EGD and possible variceal banding Time Spent With Patient Time: Total time managing care of this patient today ____ minutes.
--- NOTE | 2024-05-09 11:07 | W.PM.OPN ---
Operative Note Operative Note Date of Service: 05/09/24 Narrative: Procedure Description: EGD Indication: hx of varices Anesthesia: MAC FLEXIBLE TRANSORAL UPPER GASTROINTESTINAL ENDOSCOPY UPPER ENDOSCOPY Consent: Indications for the procedure and potential complications of bleeding, perforation, reaction to medications and missed diagnosis were discussed with the patient and informed consent was obtained. Instrument: Olympus GIF H 190 J mid size upper endoscope Monitoring: Vital signs and clinical assessment, continuous EKG monitoring, Pulse oximetry, Carbon Dioxide monitoring and blood pressure monitoring were done throughout the procedure. Procedure: The patient was placed in the left lateral decubitis position and pre-procedure medications were administered and a bite block was placed. The endoscope was inserted into the mouth and advanced under direct vision to the third part of duodenum. A careful inspection was made as the upper endoscope was withdrawn including a retroflexed examination of the proximal stomach; Findings and interventions are described below. Findings: Larynx:normal Esophagus: GE junction at 38 cm, diaphragm hiatus at 38 cm, 3 columns of large varices, x 3 bands deployed with good results and then sprayed with hemospray Stomach: Patchy gastric erythema with numerous nodular areas in the body and antrum, some of these were inflammed and had erosions on the surface azeem near the distal stomach body, a few of these were removed with cold snare. Grade 2 flap valve on retroflexed examination of the cardia. No gastric varices seen. mosaic pattern consistent with portal hypertensive gastropathy. Hemospray was applied as well. Duodenum: Normal bulb and descending duodenum, Intervention: snare polypectomy, variceal banding, hemospray application Impression/Findings: gastric polyps or nodular mucosa 2/2 portal HTN portal hypertensive gastropathy either from cirrhosis (BENEDICT most likely) or nodular regenerative hyperplasia (also possible as INR is totally normal) esophageal varices s/p banding PLAN: Magic mouthwash for 1 week cont with PPI consider increasing carvediolol if BP allows GERD precautions rept EGD in 4-6 weeks
[2024-05-09] MEDS: fentaNYL citrate/PF 100 MCG/2 ML VIAL 25 MCG IVPUSH ×4 (11:24→11:50)
[2024-05-09] MEDS: Acetaminophen 1,000 MG/100 ML PIGGYBACK 400 MG IV (11:29)
[2024-05-09] MEDS: Mag&Al/Sim/Diphenhyd/Lidocaine 10 ML ORAL.SUSP PO (11:31)
[2024-05-09] MEDS: ondansetron HCL 4 MG/2 ML VIAL IVPUSH (11:53)
== END 2024-05-09 13:39 | disposition home or self-care (01) ==
PROVIDERS: PCP Internal Medicine; Visit Provider Internal Medicine Gastroenterology
PROC: 0DJ08ZZ Inspection of Upper Intestinal Tract, Via Natural or Artificial Opening Endoscopic (ICD-10-PCS; CPT 43235; principal; 2024-05-09 10:40)
DX: I85.00 Esophageal varices without bleeding (principal); K74.60 Unspecified cirrhosis of liver; K31.7 Polyp of stomach and duodenum; K76.6 Portal hypertension; K31.89 Other diseases of stomach and duodenum; K44.9 Diaphragmatic hernia without obstruction or gangrene
CPT/HCPCS: 43244; 43251; 82947; 88305; 88313; 88342; J0131; J2405; J2704; J3010

== ENCOUNTER → 2024-05-09 08:39 | Outpatient (BNV) | payer OTHER, SELFPAY | PROVIDERS: PCP Internal Medicine; Visit Provider Internal Medicine Gastroenterology | DX: I85.00 Esophageal varices without bleeding (principal); K31.7 Polyp of stomach and duodenum; K31.89 Other diseases of stomach and duodenum | CPT/HCPCS: 43244; 43251 ==

== ENCOUNTER 2024-05-29 09:04 | Outpatient (REF) | payer OTHER, SELFPAY ==
[2024-05-30 09:49] LABS: H Pylori Breath Test Negative (Negative)
== END 2024-05-29 09:05 | disposition home or self-care (01) ==
LOC: HO.LNP 09:04
PROVIDERS: PCP Internal Medicine; Visit Provider Internal Medicine Gastroenterology
DX: K29.70 Gastritis, unspecified, without bleeding (principal); D64.9 Anemia, unspecified
CPT/HCPCS: 83013; 99211

== ENCOUNTER → 2024-05-29 09:04 | Outpatient (AMB) | payer OTHER, SELFPAY ==
--- NOTE | 2024-05-29 10:10 | AM.OFFVISNUR ---
Vital Signs 05/29/24 10:14 Height 5 ft 4 in Weight 213 lb 13.574 oz BMI 36.7 BP 136/76 Blood Pressure Location Lt brachial Position Sitting Pulse 88 Intake Visit Reasons: H PYLORI Accompanied by: Self / Same As Patient Allergies cephalexin Allergy (Severe, Verified 05/29/24 12:17) Difficulty Breathing latex [LATEX] Allergy (Severe, Verified 05/29/24 12:17) Difficulty Breathing levofloxacin [From LEVAQUIN] Allergy (Severe, Verified 05/29/24 12:17) SHORTNESS OF BREATH, RASH, rash morphine [MORPHINE] Allergy (Severe, Verified 05/29/24 12:17) RASH, asthma exacerbation, rash baclofen [BACLOFEN] Allergy (Intermediate, Verified 05/29/24 12:17) Rash celecoxib [Celebrex] Allergy (Intermediate, Verified 05/29/24 12:17) itching, rash, flushing prednisone [PREDNISONE] Allergy (Intermediate, Verified 05/29/24 12:17) RASH, asthma exacerbation, rash codeine Allergy (Unknown, Verified 05/29/24 12:17) Rash gluten [GLUTEN] Allergy (Unknown, Verified 05/29/24 12:17) UNKNOWN oxycodone Allergy (Unknown, Verified 05/29/24 12:17) rash ranitidine Allergy (Unknown, Verified 05/29/24 12:17) unknown roflumilast [Daliresp] Allergy (Unknown, Verified 05/29/24 12:17) rash tramadol [TRAMADOL] Allergy (Unknown, Verified 05/29/24 12:17) RASH,SHORTNESS OF BREATH AND HEADACHE, asthma exacerbation, rash celery Allergy (Verified 05/29/24 12:17) Rash cyclobenzaprine [From Flexeril] Allergy (Verified 05/29/24 12:17) Rash and asthma exacerbation environmental allergies Allergy (Verified 05/29/24 12:17) Cleaning products cause asthma attack pineapple Allergy (Verified 05/29/24 12:17) Rash strawberry Allergy (Verified 05/29/24 12:17) Rash sulfamethoxazole [From Bactrim] Adverse Reaction (Intermediate, Verified 05/29/24 12:17) vertigo trimethoprim [From Bactrim] Adverse Reaction (Intermediate, Verified 05/29/24 12:17) vertigo diazepam [From Valium] Adverse Reaction (Verified 05/29/24 12:17) Cough Do you need a note to return to daycare/school/sports/work: No Nursing Note Patient presents for collection of H Pylori breath test. Patient has been fasting for 1 hour (nothing to eat, drink, no chewing gum or smoking) has not taken any antacid medication for at least 2 weeks and has no allergies to artificial sweeteners.?? Assessment & Plan Assessment & Plan (1) Gastritis: Code(s): K29.70 - Gastritis, unspecified, without bleeding Category: Medical (2) Anemia: Code(s): D64.9 - Anemia, unspecified Category: Medical Qualifiers: Anemia type: unspecified type Qualified Code(s): D64.9 - Anemia, unspecified Plan Patient presents for collection of H Pylori breath test. Patient has been fasting for 1 hour (nothing to eat, drink, no chewing gum or smoking) has not taken any antacid medication for at least 2 weeks and has no allergies to artificial sweeteners.???This test checks for an overgrowth of bacteria in your stomach. We all have bacteria but some may have more than others. It is treatable. if the test comes back negative there is nothing else to do. If the test result is positive we will treat you with 2 antibiotics and a medication to decrease the acid in your stomach (PPI) for 2 weeks. Two weeks after you have completed the treatment we will retest you to make sure the overgrowth has resolved. Patient Instructions: Process for specimen collection and reason for testing was explained to the patient. Specimen collection. Patient instructed to take a deep breath and then exhale into the blue bag, filling it up as much as possible. Patient instructed to drink a mixture of water and the artificial sweetener with a straw. A 15 minute wait period was observed. Patient instructed to take a deep breath and then exhale into the pink bag, filling it up as much as possible.?? Scribe Plan - Not visible on output: pre op evaluation
[2024-05-29 10:14] VITALS: BP 136/76; PULSE 88; BMI 36.7
== END ==
PROVIDERS: PCP Internal Medicine; Visit Provider Internal Medicine Gastroenterology
DX: K29.70 Gastritis, unspecified, without bleeding (principal); D64.9 Anemia, unspecified

== ENCOUNTER 2024-07-24 12:59 | Outpatient (AMB) | payer OTHER, SELFPAY ==
[2024-07-24 13:01] VITALS: BP 134/78; PULSE 83; O2SAT 97; BMI 38.4
--- NOTE | 2024-07-24 13:01 | A.OFFVIS_ITS ---
Vital Signs 07/24/24 13:01 Height 5 ft 4 in Weight 223 lb 12.307 oz BMI 38.4 BP 134/78 Blood Pressure Location Rt brachial Position Sitting Pulse 83 Pulse Source Doppler Pulse Oximetry (%) 97 Oxygen Delivery Method Room Air Intake Visit Reasons: asthma exacerbation Allergies cephalexin Allergy (Severe, Verified 05/29/24 12:17) Difficulty Breathing latex [LATEX] Allergy (Severe, Verified 05/29/24 12:17) Difficulty Breathing levofloxacin [From LEVAQUIN] Allergy (Severe, Verified 05/29/24 12:17) SHORTNESS OF BREATH, RASH, rash morphine [MORPHINE] Allergy (Severe, Verified 05/29/24 12:17) RASH, asthma exacerbation, rash baclofen [BACLOFEN] Allergy (Intermediate, Verified 05/29/24 12:17) Rash celecoxib [Celebrex] Allergy (Intermediate, Verified 05/29/24 12:17) itching, rash, flushing prednisone [PREDNISONE] Allergy (Intermediate, Verified 05/29/24 12:17) RASH, asthma exacerbation, rash codeine Allergy (Unknown, Verified 05/29/24 12:17) Rash gluten [GLUTEN] Allergy (Unknown, Verified 05/29/24 12:17) UNKNOWN oxycodone Allergy (Unknown, Verified 05/29/24 12:17) rash ranitidine Allergy (Unknown, Verified 05/29/24 12:17) unknown roflumilast [Daliresp] Allergy (Unknown, Verified 05/29/24 12:17) rash tramadol [TRAMADOL] Allergy (Unknown, Verified 05/29/24 12:17) RASH,SHORTNESS OF BREATH AND HEADACHE, asthma exacerbation, rash celery Allergy (Verified 05/29/24 12:17) Rash cyclobenzaprine [From Flexeril] Allergy (Verified 05/29/24 12:17) Rash and asthma exacerbation environmental allergies Allergy (Verified 05/29/24 12:17) Cleaning products cause asthma attack pineapple Allergy (Verified 05/29/24 12:17) Rash strawberry Allergy (Verified 05/29/24 12:17) Rash sulfamethoxazole [From Bactrim] Adverse Reaction (Intermediate, Verified 05/29/24 12:17) vertigo trimethoprim [From Bactrim] Adverse Reaction (Intermediate, Verified 05/29/24 12:17) vertigo diazepam [From Valium] Adverse Reaction (Verified 05/29/24 12:17) Cough HPI HPI asthma exacerbation: Details: 53-year-old lady with underlying asthma, normally followed by Dr. Vanegas, presenting today complaining of an acute exacerbation symptomatic with worsening dyspnea. Patient states that she usually does not develop wheezing. Patient thinks that she has been triggered by exposure to construction dust cloud. She denies sputum production. Patient states that she can not tolerate prednisone, but does well with Solu-Medrol. [facility] Medical History Anemia Chronic restrictive lung disease Brugada syndrome Shortness of breath Encounter for care related to Port-a-Cath Tinea pedis Recurrent cellulitis of lower extremity CHARLES (obstructive sleep apnea) Hypogammaglobulinemia Cellulitis of both lower extremities Right hip pain Lumbar degenerative disc disease Benign essential hypertension Obesity (BMI 30-39.9) Mitochondrial myopathy Asthma Diabetes mellitus History of revision of total replacement of right hip joint (~12/2019) Acquired hypothyroidism Pain of both hip joints Pure hypercholesterolemia Hx of cataract HTN (hypertension) Osteopenia Hypothyroidism Osteoarthritis of hip Gastritis Surgical History History of removal of Port-a-Cath History of total right hip arthroplasty (~06/03/19) History of eye surgery (~09/2017) History of hip surgery Hx of foot surgery (~01/02/19) History of removal of cyst Hx of left knee surgery History of elbow surgery (~07/2016) Hx of thumb surgery Hx of appendectomy Hx of hysterectomy (~07/2011) Hx of bilateral breast reduction surgery Family History Father Leukemia Mother Hypertension Diabetes Sister Alive and well Brother Pancreatic cancer Paternal Grandmother Stomach cancer Paternal Grandmother Throat cancer Social History Household Members: Family and Children Housing: Apartment Do you presently have visiting nurse or other home services: No Alcohol intake: former Comment: refused bed alarm Patient Tobacco Use Status: Never used Tobacco e-Cigarette/Vaping Use: Never Used Second Hand Smoke Exposure: No Advance Directives Date on File: 10/02/23 service: No Current occupational status: disabled Cognitive needs: No Hearing needs: No Vision needs: No Review of Systems Card Reports dyspnea on exertion Resp Denies cough, Denies excessive phlegm production, Reports dyspnea on exertion and Denies wheezing Aller/Immun Denies wheezing Physical Exam Vital Signs: Last Vital Signs Pulse 83 07/24/24 13:01 BP 134/78 07/24/24 13:01 Pulse Ox 97 07/24/24 13:01 Oxygen Delivery Method Room Air 07/24/24 13:01 BMI result Body Mass Index 38.4 Const General: no acute distress and alert Nutritional Appearance: obese Orientation/consciousness: Other orientation findings ( oriented) HEENT Head: Yes atraumatic Eyes General: appearance normal, both eyes and all related structures Sclerae: sclerae normal EOM: EOMs intact bilaterally Neck Neck: Yes supple Lymphatic: no lymphadenopathy noted Resp Effort & Inspection: normal respiratory effort and no use of accessory muscles Auscultation: clear to auscultation bilaterally Cardio Rate: regular rate Rhythm: regular rhythm Heart sounds: no gallops, no murmurs and no rubs Skin General skin exam: other ( warm) Extrem General: No clubbing, No cyanosis and No edema Assessment & Plan Assessment & Plan (1) Hypogammaglobulinemia: Comment: better, off IVIG Code(s): D80.1 - Nonfamilial hypogammaglobulinemia Category: Medical (2) Asthma: Code(s): J45.909 - Unspecified asthma, uncomplicated Category: Medical Qualifiers: Asthma severity: severe Asthma persistence: persistent Asthma complication type: uncomplicated Qualified Code(s): J45.50 - Severe persistent asthma, uncomplicated Plan Acute exacerbation of underlying asthma, likely allergic, though does not appear to have bronchitic component. Will treat with a course of Solu-Medrol. Medications: Refilled methylprednisolone (Medrol (Jarrett)) orally daily; take 2 tabs daily twice a day x 4, then 1 tab twice a day x 4 days, then 1 tab daily x 4 days 12 days 28 ea 0RF Coding Level of Care Code Est Pt Level 4 (47774) Complex EM visit Add On G2211 Diagnoses Hypogammaglobulinemia D80.1 Severe persistent asthma without complication J45.50 Asthma severity: severe Asthma persistence: persistent Asthma complication type: uncomplicated
== END 2024-07-24 13:38 | disposition home or self-care (01) ==
PROVIDERS: PCP Internal Medicine; Visit Provider Internal Medicine Pulmonary Disease
DX: D80.1 Nonfamilial hypogammaglobulinemia (principal); J45.50 Severe persistent asthma, uncomplicated
CPT/HCPCS: 99214; G2211

== ENCOUNTER → 2024-07-24 12:59 | Outpatient (BNVA) | payer OTHER, SELFPAY | PROVIDERS: PCP Internal Medicine; Visit Provider Internal Medicine Pulmonary Disease | DX: J45.50 Severe persistent asthma, uncomplicated (principal); J98.4 Other disorders of lung; D80.1 Nonfamilial hypogammaglobulinemia | CPT/HCPCS: 99212 ==

== ENCOUNTER 2024-07-26 11:16 | Outpatient (AMB) | payer OTHER, SELFPAY ==
[2024-07-26 11:21] VITALS: BP 134/78; PULSE 55; O2SAT 98; BMI 38.4
--- NOTE | 2024-07-26 11:21 | MHC.OFFVIS ---
Vital Signs 07/26/24 11:21 Height 5 ft 4 in Weight 223 lb 8.78 oz BMI 38.4 BP 134/78 Blood Pressure Location Lt brachial Position Sitting Pulse 55 Pulse Source Pulse Oximeter Pulse Oximetry (%) 98 Oxygen Delivery Method Room Air Intake Visit Reasons: COPD [employer] Required: No Allergies cephalexin Allergy (Severe, Verified 07/26/24 11:24) Difficulty Breathing latex [LATEX] Allergy (Severe, Verified 07/26/24 11:24) Difficulty Breathing levofloxacin [From LEVAQUIN] Allergy (Severe, Verified 07/26/24 11:24) SHORTNESS OF BREATH, RASH, rash morphine [MORPHINE] Allergy (Severe, Verified 07/26/24:24) RASH, asthma exacerbation, rash baclofen [BACLOFEN] Allergy (Intermediate, Verified 07/26/24) Rash celecoxib [Celebrex] Allergy (Intermediate, Verified 07/26/2424) itching, rash, flushing prednisone [PREDNISONE] Allergy (Intermediate, Verified 07/26/24:24) RASH, asthma exacerbation, rash codeine Allergy (Unknown, Verified 07/26/2424) Rash gluten [GLUTEN] Allergy (Unknown, Verified 07/26/24:24) UNKNOWN oxycodone Allergy (Unknown, Verified 07/26/24) rash ranitidine Allergy (Unknown, Verified 07/26/2424) unknown roflumilast [Daliresp] Allergy (Unknown, Verified 07/26/24:24) rash tramadol [TRAMADOL] Allergy (Unknown, Verified 07/26/24:24) RASH,SHORTNESS OF BREATH AND HEADACHE, asthma exacerbation, rash celery Allergy (Verified 07/26/24:24) Rash cyclobenzaprine [From Flexeril] Allergy (Verified 07/26/24:24) Rash and asthma exacerbation environmental allergies Allergy (Verified 07/26/24:24) Cleaning products cause asthma attack pineapple Allergy (Verified 07/26/24:24) Rash strawberry Allergy (Verified 07/26/2424) Rash sulfamethoxazole [From Bactrim] Adverse Reaction (Intermediate, Verified 07/26/24 11:24) vertigo trimethoprim [From Bactrim] Adverse Reaction (Intermediate, Verified 07/26/24:24) vertigo diazepam [From Valium] Adverse Reaction (Verified 07/26/24 11:24) Cough HPI Comments Details: The patient is a 53-year-old woman with known severe persistent asthma, hypogammaglobulinemia and obstructive sleep apnea. She has had significant issues with osteopenia and osteoporosis due to chronic steroid use. Currently she is using crutches. She did have surgery to her hip but still having issues with pain. She has been off the Medrol now for some time. She has been taking IVIG for her immunodeficiency with good effect. In in she also continues with respiratory therapy. When she started on Dupixent for her severe asthma she was able to wean off the Medrol. 05/09/2022 the patient is here for a pulmonary follow-up visit. The patient overall has been having increasing dyspnea on exertion. [id number] severity. She also complains of cough. She did try the Anoro but she could not tolerated. Therefore she stopped it. She continues on the Asmanex. she has not used her short-acting beta agonist. She continues on the Fasenra injections which appeared to be effective for her. The meantime she is having significant foot pain. She is going to have removal hardware from her but next week. I do believe that her worsening dyspnea is likely from deconditioning specially that she has a hard time walking now with her musculoskeletal issues. She did undergo pulmonary function studies in order to have her participate in pulmonary rehabilitation. she appears to have a restrictive ventilatory defect consistent with restrictive lung disease. The patient will benefit from pulmonary rehabilitation at this time. 11/10/2022 the patient is here for a pulmonary follow-up visit. Since we last spoke she had 1 brief exacerbation. She did require course of steroids. She initially call the office and we could not see her and she also call the primary care doctor who could not see her as well. Therefore she was recommended to go to the ED. However she was concerned about potential exposures while in the ED. Therefore she stayed home and she took additional Medrol. Currently she is doing better. She denies any chest congestion. She continues to have some dyspnea on exertion. [id number] severity. She continues on her allergy therapy. She is also using the Fasenra injections with good results. She continues on IVIG. 09/14/2023 the patient is here for a pulmonary follow-up visit. The patient overall doing well. Since we last spoke she did require antibiotics and Medrol once or twice. She is feeling better though. She does take care of her grandkids and exposed to viral syndromes. She tries to be careful though. In the meantime I will send her another script for Medrol for to hold just in case her symptoms worsen again. Patient knows that she is to be careful with taking steroid specially since she was on chronic steroids before will try to avoid that. In the meantime she does continue with her IVIG therapy a her inconsistent use with her Fasenra injections. We did review her recent blood work. She is anemic with a hemoglobin of 10.7. She is going to have that recheck again in 3 months. But with all the her all comorbidities anemia can also worsening shortness of breath. In addition to that will have her check a venous blood gas the next time she gets blood work to make sure she is that she is not retaining CO2. When she comes back in 3-4 months will have a her undergo pulmonary function studies to assess the lung capacity in view of her significant scoliosis and underlying obstructive airway disease. 01/25/2024 the patient is here for pulmonary follow-up visit. She is doing well from a respiratory status. She did see the automotive production worker in her IVIG was stopped because the levels were good. Subsequently after that she started developing a GI bleed and anemia. She was evaluated by GI and she was found to have portal hypertension. Subsequently after that she was diagnosed with cirrhosis. They recommended a liver biopsy although she has not had as of yet. Her liver function still normal. She did undergo pulmonary function studies. They appeared to be normal except for mild restriction likely secondary to her body habitus and also her neuromuscular disease. At this point she has been evaluated for her liver cirrhosis. She appears to be volume overloaded with some pitting edema bilaterally. The patient needs to be diuresed time. To continue to follow-up with GI. She has contemplating a biopsy. Explained to her if the biopsy is going to ptosis reasonable to pursue. She will discuss further with her pediatric psychiatrist. 07/26/2024 the patient is here for pulmonary follow-up visit. Overall she is doing better. She did have a sick visit last week because of worsening respiratory symptoms after an exposure. She was placed on Medrol and she seems to be doing better. Although she does have productive cough and chest congestion. Will start her on Augmentin as well. She has also has a respiratory medications and she continues with her IVIG. The patient also had gastric banding is unclear why she has portal hypertension. Will go ahead and request an echocardiogram to make sure that she does not have any significant issues with a heart them to be affecting the blood flow and her liver spleen and ultimately varices. She continues with diuretics. The patient also will go for chest x-ray. Will follow-up in 3 months. If she has any worsening symptoms she will call for an earlier assessment. [facility] Medical History Anemia Chronic restrictive lung disease Brugada syndrome Shortness of breath Encounter for care related to Port-a-Cath Tinea pedis Recurrent cellulitis of lower extremity CHARLES (obstructive sleep apnea) Hypogammaglobulinemia Cellulitis of both lower extremities Right hip pain Lumbar degenerative disc disease Benign essential hypertension Obesity (BMI 30-39.9) Mitochondrial myopathy Asthma Diabetes mellitus History of revision of total replacement of right hip joint (~12/2019) Acquired hypothyroidism Pain of both hip joints Pure hypercholesterolemia Hx of cataract HTN (hypertension) Osteopenia Hypothyroidism Osteoarthritis of hip Gastritis Surgical History History of removal of Port-a-Cath History of total right hip arthroplasty (~06/03/19) History of eye surgery (~09/2017) History of hip surgery Hx of foot surgery (~01/02/19) History of removal of cyst Hx of left knee surgery History of elbow surgery (~07/2016) Hx of thumb surgery Hx of appendectomy Hx of hysterectomy (~07/2011) Hx of bilateral breast reduction surgery Family History Father Leukemia Mother Hypertension Diabetes Sister Alive and well Brother Pancreatic cancer Paternal Grandmother Stomach cancer Paternal Grandmother Throat cancer Social History Household Members: Family and Children Housing: Apartment Do you presently have visiting nurse or other home services: No Alcohol intake: former Comment: refused bed alarm Patient Tobacco Use Status: Never used Tobacco e-Cigarette/Vaping Use: Never Used Second Hand Smoke Exposure: No Advance Directives Date on File: 10/02/23 service: No Current occupational status: disabled Cognitive needs: No Hearing needs: No Vision needs: No Review of Systems Const Denies headache(s) Eyes Denies loss of vision ENT Denies vertigo, Denies dizziness, Denies headache(s) and Denies sore throat Card Denies chest pain, Denies leg edema, Denies lightheadedness and Reports dyspnea on exertion Resp Reports cough, Denies hemoptysis, Reports dyspnea on exertion and Denies wheezing GI Reports as per HPI, Denies abdominal pain, Reports melena, Denies constipation, Denies diarrhea and Denies vomiting Denies urinary frequency, Denies dysuria and Denies urinary urgency Musc Reports myalgias, Reports arthralgias, Reports joint swelling, Denies numbness and Denies tingling Neuro Denies Abnormal speech present, Denies behavioral changes, Denies vertigo, Denies dizziness, Denies headache(s), Denies loss of vision, Denies memory loss, Denies numbness and Denies tingling Psych Denies anxiety, Denies behavioral changes, Denies depression, Denies memory loss and Denies panic attacks Umair/Lymph Denies easy bleeding and Denies easy bruising Aller/Immun Denies wheezing Physical Exam Vital Signs: Last Vital Signs Pulse 55 07/26/24 11:21 BP 134/78 07/26/24 11:21 Pulse Ox 98 07/26/24 11:21 Oxygen Delivery Method Room Air 07/26/24 11:21 BMI result Body Mass Index 38.4 Const General: alert HEENT Mouth: tongue abnormal discolored Neck Neck: Yes normal visual inspection, Yes full ROM and Yes no lymphadenopathy Chest Chest palpation & inspection: normal inspection of the chest Resp Effort & Inspection: normal respiratory effort Auscultation: diminished lung sounds Cardio Rate: regular rate Rhythm: regular rhythm Heart sounds: S1 normal heart sound present and S2 normal heart sound present GI Palpation (GI): Soft to palpation and nontender Auscultation: normal bowel sounds Skin General skin exam: rashes and/or lesions noted Neuro Speech: No Abnormal speech present Assessment & Plan Assessment & Plan (1) Asthma: Code(s): J45.909 - Unspecified asthma, uncomplicated Category: Medical Qualifiers: Asthma complication type: uncomplicated Asthma persistence: persistent Asthma severity: moderate Qualified Code(s): J45.40 - Moderate persistent asthma, uncomplicated (2) Hypogammaglobulinemia: Comment: better, off IVIG Code(s): D80.1 - Nonfamilial hypogammaglobulinemia Category: Medical (3) CHARLES (obstructive sleep apnea): Code(s): G47.33 - Obstructive sleep apnea (adult) (pediatric) Category: Medical (4) Chronic restrictive lung disease: Code(s): J98.4 - Other disorders of lung Category: Medical (5) Portal hypertension: Code(s): K76.6 - Portal hypertension Category: Medical Plan continue Fasenra injections allergy continue singular Asmanex continue Medrol taper start Augmentin short-acting beta agonist as needed aldactone, low NA CXR ECHO follow-up in3-4months Orders: Orders XR chest 2V 07/26/24 J45.50 - Severe persistent asthma, uncomplicated CA echo transthoracic complete 07/26/24 I27.20 - Pulmonary hypertension, unspecified, J45.50 - Severe persistent asthma, uncomplicated Medications: New amoxicillin-pot clavulanate 875-125 mg 1 tab PO BID 20 tabs 0RF 10 days fluconazole 100 mg PO DAILY 7 tabs 0RF 7 days Coding Level of Care Code Est Pt Level 4 (73663) Diagnoses Moderate persistent asthma without complication J45.40 Asthma complication type: uncomplicated Asthma persistence: persistent Asthma severity: moderate Hypogammaglobulinemia D80.1 CHARLES (obstructive sleep apnea) G47.33 Chronic restrictive lung disease J98.4 Portal hypertension K76.6 Time Spent (min) 17
== END 2024-07-26 11:53 | disposition home or self-care (01) ==
PROVIDERS: PCP Internal Medicine; Visit Provider Hospitalist
DX: J45.40 Moderate persistent asthma, uncomplicated (principal); D80.1 Nonfamilial hypogammaglobulinemia; G47.33 Obstructive sleep apnea (adult) (pediatric); J98.4 Other disorders of lung; K76.6 Portal hypertension
CPT/HCPCS: 99214

== ENCOUNTER → 2024-07-26 11:16 | Outpatient (BNVA) | payer OTHER, SELFPAY | PROVIDERS: PCP Internal Medicine; Visit Provider Hospitalist | DX: J45.50 Severe persistent asthma, uncomplicated (principal); D80.1 Nonfamilial hypogammaglobulinemia; G47.33 Obstructive sleep apnea (adult) (pediatric); J98.4 Other disorders of lung; K76.6 Portal hypertension | CPT/HCPCS: 99212 ==

== ENCOUNTER 2024-08-01 11:08 | Outpatient (REF) | payer OTHER, SELFPAY ==
--- NOTE | ~2024-08-01 | XR_ITS ---
EXAMINATION: XR CHEST CLINICAL INFORMATION: Persistent asthma, uncomplicated COMPARISON: CT chest 01/02/2023, chest radiograph 11/23/2022 TECHNIQUE: 2 views of the chest were obtained. FINDINGS: No significant abnormality is noted involving the heart, lungs, mediastinum, bony thorax or soft tissues. Previously seen right chest wall port has been removed. XR/XR chest 2V IMPRESSION: Unremarkable examination. Electronically signed by: Leland Ross MD 08/01/2024 01:43 PM EDT
[2024-08-01 12:29] LABS: MANUAL DIFF FLAG NO
[2024-08-01 13:56] LABS: Estimated Average Glucose 200 mg/dL; Hemoglobin A1c % 8.6 % (<6.0); Total Hemoglobin (HGBA1C) 3198.8034 umol/L
[2024-08-01 13:58] LABS: Hematocrit 37.2 % (37.0-47.0); Hemoglobin 12.2 g/dl (12.0-16.0); Imm Gran Abs Auto 0.03 X10*3/uL (0.00-0.03); Imm Gran Pct Auto 0.5 % (0.0-0.4); Lymphocytes Absolute Auto 1.7 X10*3/uL (1.2-4.9); Lymphocytes Percent Auto 28.2 % (20-40); Mean Corpuscular HGB Conc 32.8 g/dl (31.0-35.0); Mean Corpuscular Hemoglobin 27.7 pg (27.0-33.0); Mean Corpuscular Volume 84.5 fL (80.0-98.0); Mean Platelet Volume 11.2 fL (9.4-12.3); Monocytes Absolute Auto 0.5 X10*3/uL (0.1-1.2); Monocytes Percent Auto 8.4 % (2-11); Neutrophils Absolute Auto 3.7 x10*3/uL (2.0-8.3); Neutrophils Percent Auto 62.9 % (45-73); Platelet Count 106 X10*3/uL (160-400); Red Cell Distribution Width 13.3 % (11.0-16.0); White Blood Count 5.9 X10*3/uL (4.8-10.8)
[2024-08-01 14:18] LABS: Appearance Urine Clear; Color Urine Yellow; Glucose Urine UA 250 mg/dL (Negative); Leukocyte Esterase Urine Trace (Negative); Nitrite Urine Negative (Negative); Specific Gravity - Urine 1.015 (1.005-1.025); UMIC TRIGGER UACC YES; Urine Blood Negative (Negative); Urine Ketones Negative (Negative); Urine Protein Negative (Neg-Trace)
[2024-08-01 14:21] LABS: Bacteria Urine None Seen (None Seen); Hyaline Casts Urine 0-2 /LPF (0-2); RBC Urine 0-2 /HPF (0-2); WBC Urine 0-5 /HPF (0-5)
[2024-08-01 14:23] LABS: Alanine Aminotransferase 47 U/L (0-31); Albumin Level 4.2 g/dL (3.5-5.0); Alkaline Phosphatase 115 U/L (39-117); Anion Gap 10 (12-20); Aspartate Amino Transferase 28 U/L (5-31); Bilirubin Total 0.7 mg/dL (0.0-1.0); Blood Urea Nitrogen 13 mg/dL (9-16); Calcium 9.8 mg/dL (8.4-10.2); Carbon Dioxide 30 mmol/L (22-29); Chloride 105 mmol/L (96-108); Cholesterol 139 mg/dL (<200); Estimated Glomerular Filt Rate > 60; Glucose Fasting 120 mg/dL (60-99); HDL Cholesterol 32 mg/dL (>40); LDL Cholesterol Calculated 84 mg/dL (<100); Potassium 4.1 mmol/L (3.3-5.1); Sodium 141 mmol/L (135-145); Total Protein 6.8 g/dL (6.5-8.0); Triglycerides 117 mg/dL (<150)
[2024-08-01 14:38] LABS: TSH reflex Free T4 0.25 uIU/mL (0.32-4.0); Vitamin D 25-OH Total 34.5 ng/mL (>30)
[2024-08-01 14:46] LABS: Folate 7.5 ng/mL (> or = 4.0); Vitamin B12 434 pg/mL (200-900)
[2024-08-01 15:18] LABS: Free T4 (Free Thyroxine) 1.13 ng/dL (0.71-1.85)
[2024-08-01 15:32] LABS: Creatinine Urine 56.97 mg/dL; Microalbumin Urine < 5.0 mg/L
== END 2024-08-01 11:09 | disposition home or self-care (01) ==
LOC: HO.LAB 11:08
PROVIDERS: Absent Provider Internal Medicine; PCP Internal Medicine; Visit Provider Hospitalist
DX: Z23 Encounter for immunization (principal); J45.50 Severe persistent asthma, uncomplicated; E78.00 Pure hypercholesterolemia, unspecified; I10 Essential (primary) hypertension; E11.9 Type 2 diabetes mellitus without complications; E55.9 Vitamin D deficiency, unspecified; E53.8 Deficiency of other specified B group vitamins
CPT/HCPCS: 36415; 71046; 80053; 80061; 81001; 82043; 82306; 82570; 82607; 82746; 83036; 84439; 84443; 85025; 90471; 90472; 90656; 90677; 99211

== ENCOUNTER 2024-08-01 11:08 | Outpatient (AMB) | payer OTHER, SELFPAY ==
[2024-08-01 11:43] VITALS: BP 140/80; PULSE 74; O2SAT 97
--- NOTE | 2024-08-01 11:43 | MHC.OFFVIS ---
Vital Signs 08/01/24 11:43 BP 140/80 H Blood Pressure Location Lt brachial Position Sitting Pulse 74 Pulse Source Pulse Oximeter Pulse Oximetry (%) 97 Oxygen Delivery Method Room Air Intake Visit Reasons: Flu/Prevnar Allergies cephalexin Allergy (Severe, Verified 08/01/24 11:44) Difficulty Breathing latex [LATEX] Allergy (Severe, Verified 08/01/24 11:44) Difficulty Breathing levofloxacin [From LEVAQUIN] Allergy (Severe, Verified 08/01/24 11:44) SHORTNESS OF BREATH, RASH, rash morphine [MORPHINE] Allergy (Severe, Verified 08/01/24 11:44) RASH, asthma exacerbation, rash baclofen [BACLOFEN] Allergy (Intermediate, Verified 08/01/24 11:44) Rash celecoxib [Celebrex] Allergy (Intermediate, Verified 08/01/24 11:44) itching, rash, flushing prednisone [PREDNISONE] Allergy (Intermediate, Verified 08/01/24 11:44) RASH, asthma exacerbation, rash codeine Allergy (Unknown, Verified 08/01/24 11:44) Rash gluten [GLUTEN] Allergy (Unknown, Verified 08/01/24 11:44) UNKNOWN oxycodone Allergy (Unknown, Verified 08/01/24 11:44) rash ranitidine Allergy (Unknown, Verified 08/01/24 11:44) unknown roflumilast [Daliresp] Allergy (Unknown, Verified 08/01/24 11:44) rash tramadol [TRAMADOL] Allergy (Unknown, Verified 08/01/24 11:44) RASH,SHORTNESS OF BREATH AND HEADACHE, asthma exacerbation, rash celery Allergy (Verified 08/01/24 11:44) Rash cyclobenzaprine [From Flexeril] Allergy (Verified 08/01/24 11:44) Rash and asthma exacerbation environmental allergies Allergy (Verified 08/01/24 11:44) Cleaning products cause asthma attack pineapple Allergy (Verified 08/01/24 11:44) Rash strawberry Allergy (Verified 08/01/24 11:44) Rash sulfamethoxazole [From Bactrim] Adverse Reaction (Intermediate, Verified 08/01/24 11:44) vertigo trimethoprim [From Bactrim] Adverse Reaction (Intermediate, Verified 08/01/24 11:44) vertigo diazepam [From Valium] Adverse Reaction (Verified 08/01/24 11:44) Cough Medication List - Last Reconciled 08/01/24 by Nadya Kaye LPN amoxicillin-pot clavulanate 875-125 mg 1 tab PO BID 10 days atorvastatin 40 mg PO BEDTIME benralizumab (Fasenra) 30 mg subcut Q8W bismuth subsalicylate (Pepto-Bismol) 2 mg PO DAILY PRN blood pressure monitor As directed blood sugar diagnostic (FreeStyle Lite Strips) As directed- checks 4-5 X/day calcium citrate 500 mg (2 x 250 mg calcium) PO BID 30 days carvedilol 6.25 mg PO DAILY cholecalciferol (vitamin D3) 100 mcg (2 x 50 mcg (2,000 unit)) PO BEDTIME [DIABETIC SHOES DIABETIC SHOES - 1 PAIR - use as directed -- Dx: E11.9 -- diabetes mellitus] epinephrine IM DIRECTED ferrous sulfate (FeroSul) 325 mg PO DAILY Fiasp FlexTouch U-100 Insulin 100 unit/mL (3 mL) (insulin aspart (niacinamide)) Inject 5 to 20 units SQ before meals and snacks, FOUR TIMES A DAY 30 days NS fluconazole 100 mg PO DAILY 7 days hydromorphone 2 mg PO Q4-6H PRN hydromorphone 2 mg PO TID PRN 7 days insulin degludec (Tresiba FlexTouch U-100 insulin) 12 units (0.12 mL) subcut DAILY 30 days MDD 12 units ipratropium bromide 2 sprays intranasal DAILY lancets (FreeStyle Lancets) 5 times a day levalbuterol tartrate 45 mcg/actuation (Xopenex HFA) 2 puffs inhalation Q6H PRN 30 days loratadine 10 mg PO DAILY losartan 25 mg PO BEDTIME 90 days Magic Mouthwash Diphen/Lido/Antacid 1:1:1 10 mL PO QID methylprednisolone (Medrol (Jarrett)) orally daily; take 2 tabs daily twice a day x 4, then 1 tab twice a day x 4 days, then 1 tab daily x 4 days 12 days mometasone 200 mcg/actuation (Asmanex HFA) 2 puffs inhalation BID montelukast 10 mg PO BEDTIME 90 days nebulizers As directed nystatin (Nystop) 1 appl topical TID omeprazole 40 mg PO BID ondansetron 8 mg PO Q8H PRN 10 days pen needle, diabetic (BD Laura 2nd Gen Pen Needle) USE TO INJECT FOUR TIMES DAILY DIRECTED pyridostigmine bromide 60 mg PO TID spironolactone 25 mg PO DAILY Synthroid (levothyroxine) 224 mcg (2 x 112 mcg) PO DAILY NS tizanidine 2 mg PO TID PRN PFSH Medical History Anemia Chronic restrictive lung disease Brugada syndrome Shortness of breath Encounter for care related to Port-a-Cath Tinea pedis Recurrent cellulitis of lower extremity CHARLES (obstructive sleep apnea) Hypogammaglobulinemia Cellulitis of both lower extremities Right hip pain Lumbar degenerative disc disease Benign essential hypertension Obesity (BMI 30-39.9) Mitochondrial myopathy Asthma Diabetes mellitus History of revision of total replacement of right hip joint (~12/2019) Acquired hypothyroidism Pain of both hip joints Pure hypercholesterolemia Hx of cataract HTN (hypertension) Osteopenia Hypothyroidism Osteoarthritis of hip Gastritis Surgical History History of removal of Port-a-Cath History of total right hip arthroplasty (~06/03/19) History of eye surgery (~09/2017) History of hip surgery Hx of foot surgery (~01/02/19) History of removal of cyst Hx of left knee surgery History of elbow surgery (~07/2016) Hx of thumb surgery Hx of appendectomy Hx of hysterectomy (~07/2011) Hx of bilateral breast reduction surgery Family History Father Leukemia Mother Hypertension Diabetes Sister Alive and well Brother Pancreatic cancer Paternal Grandmother Stomach cancer Paternal Grandmother Throat cancer Social History Household Members: Family and Children Housing: Apartment Do you presently have visiting nurse or other home services: No Alcohol intake: former Comment: refused bed alarm Patient Tobacco Use Status: Never used Tobacco e-Cigarette/Vaping Use: Never Used Second Hand Smoke Exposure: No Advance Directives Date on File: 10/02/23 service: No Current occupational status: disabled Cognitive needs: No Hearing needs: No Vision needs: No Physical Exam Vital Signs: Last Vital Signs Pulse 74 08/01/24 11:43 BP 140/80 H 08/01/24 11:43 Pulse Ox 97 08/01/24 11:43 Oxygen Delivery Method Room Air 08/01/24 11:43 Office Procedures Flu Questionnaire Does the patient have a severe egg allergy?: No Does the patient have severe life threatening allergies?: No Does the patient have a fever or illness today?: No Has the patient ever had Guillain-[place] Falls Syndrome?: No Has the patient ever had any past reaction to a flu shot?: No Immunizations Fluarix Triv (PF) 45 mcg (15 mcg x 3)/0.5 mL IM syringe Performing Provider: Saturnino Vanegas MD Performing Location: [facility] [place] [facility] Administered by: Nadya Kaye LPN on 08/01/24 11:44 Dose Route Admin Location Dispensed Lot Number Expiration Date [employer] 0.5 mL IM Right Deltoid 0.5 mL [id number] 04/14/25 89416-502-30 [employer] VIS Given Date VIS Provided VIS Publication Date 08/01/24 Single Vaccine 21 Eligibility Eligibility Date Funding Source Not VFC Eligible 08/01/24 Private pneumoc 20-tessa conj-dip cr(PF) 0.5 mL IM syringe Performing Provider: Saturnino Vanegas MD Performing Location: [facility] [place] [facility] Administered by: Nadya Kaye LPN on 08/01/24 11:44 Dose Route Admin Location Dispensed Lot Number Expiration Date [employer]DC [employer] 0.5 mL IM Left Deltoid 0.5 mL [id number] 07/15/25 1136-3122-32 [employer] VIS Given Date VIS Provided VIS Publication Date 08/01/24 Single Vaccine 23 Eligibility Eligibility Date Funding Source Not VFC Eligible 08/01/24 Private Assessment & Plan Assessment & Plan (1) Asthma: Code(s): J45.909 - Unspecified asthma, uncomplicated Category: Medical Qualifiers: Asthma severity: moderate Asthma persistence: persistent Asthma complication type: uncomplicated Qualified Code(s): J45.40 - Moderate persistent asthma, uncomplicated Plan vaccines given Orders: Orders Pneumococcal 20 Immunization Today Z23 - Encounter for immunization Influenza Immunization Today J45.50 - Severe persistent asthma, uncomplicated Coding Level of Care Code Est Pt Level 1 (46060) Diagnoses Moderate persistent asthma without complication J45.40 Asthma severity: moderate Asthma persistence: persistent Asthma complication type: uncomplicated
== END 2024-08-01 11:48 | disposition home or self-care (01) ==
PROVIDERS: PCP Internal Medicine; Visit Provider Hospitalist
DX: Z23 Encounter for immunization (principal); J45.50 Severe persistent asthma, uncomplicated; J45.40 Moderate persistent asthma, uncomplicated

== ENCOUNTER 2024-08-17 20:29 | Inpatient (IN) | payer OTHER, SELFPAY ==
--- NOTE | 2024-08-17 | ECG_ITS ---
Test Reason : repeat Blood Pressure : / mmHG Vent. Rate : 112 BPM Atrial Rate : 112 BPM P-R Int : 158 ms QRS Dur : 112 ms QT Int : 332 ms P-R-T Axes : 047 -29 004 degrees QTc Int : 453 ms Sinus tachycardia Brugada pattern, type 1 Moderate voltage criteria for LVH, may be normal variant ( R in aVL , Shen product ) Abnormal ECG When compared with ECG of 17-AUG-2024 21:04, No significant change was found Referred By: Generic ED Physician Electronically Signed By:EAGLE WILLIS
--- NOTE | ~2024-08-17 | CT_ITS ---
EXAMINATION: CT ABDOMEN AND PELVIS WITH CONTRAST CLINICAL INFORMATION: Question obstruction versus diverticulitis COMPARISON: CT GI bleeding study 11/19/[address] abdomen pelvis 09/27/23 TECHNIQUE: Multidetector volumetric imaging was performed from the superior aspect of the liver through the pubic symphysis with intravenous contrast. A total of 85 mL of Omnipaque 350 was utilized for the study. Sagittal and coronal reformatted images were obtained on the technologist's workstation. This CT examination was performed using dose optimization techniques as appropriate, variously including the following: *Automated exposure control *Adjustment of mA and/or kV according to patient size (this includes techniques or standardized protocols for targeted exams where dose is matched to indication/reason for exam; i.e. extremities or head) *Use of iterative reconstruction technique DLP: 916 mGy-cm FINDINGS: LUNG BASES: Multiple coarse calcifications are seen in the breasts unchanged from prior . No infiltrates, effusions or lung masses. LIVER, GALLBLADDER, AND BILIARY TREE: The liver is normal in size, and shape but with decreased attenuation suggesting steatosis. No focal hepatic lesion or biliary ductal dilatation is present. A small recanalized umbilical vein is present. The gallbladder is unremarkable with no evidence of radiopaque gallstones, gallbladder wall thickening, or obvious pericholecystic inflammatory changes. PANCREAS: There is a small cystic mass in the tail the pancreas measuring 1.3 x 1.1 x 1.2 cm (3:25 and 8:63). This appears slightly smaller than on the 11/19/23 study when maximum dimension was about 1.6 cm (11/19/23 16:70). SPLEEN: The spleen is enlarged at 14.5 cm.m ADRENAL GLANDS: Unremarkable. KIDNEYS AND URETERS: The kidneys are normal in size, shape, and attenuation. No hydronephrosis, hydroureter, or calculi seen. No perinephric stranding. Few tiny hypodensities seen consistent with benign cysts which needs no additional imaging or follow-up. No concerning renal masses. BLADDER: Unremarkable. GASTROINTESTINAL TRACT: The small and large bowel are unremarkable. The appendix is unremarkable. ABDOMINAL WALL: No significant hernia is appreciated. Chronic appearing calcifications are seen in the left buttock predominantly behind the lower sacrum. LYMPH NODES: No retroperitoneal lymphadenopathy. Small jimmie hepatis nodes are seen. VASCULAR: Unremarkable. PELVIC VISCERA: The uterus is not seen. An abnormal adnexal mass is not detected. There is a small amount of free intraperitoneal fluid present. OSSEOUS STRUCTURES: Right total hip prosthesis is present. A biconvex thoracolumbar scoliosis is seen with marked degenerative changes throughout the spine. CT/CT abdomen pelvis w IV con IMPRESSION: 1. A cause for the patient's acute abdominal pain has not been found. 2. No evidence of bowel obstruction or acute diverticulitis 3. Incidental note made of hepatic steatosis, splenomegaly, small amount of free intraperitoneal fluid and a small cystic mass in the tail the pancreas. MRI/MRCP is recommended for further evaluation. Fleischner guidelines were followed. Electronically signed by: Leland Ross MD 08/19/2024 10:29 PM LAURA RAMIREZ
--- NOTE | ~2024-08-17 | XR_ITS ---
EXAMINATION: XR HAND, LEFT CLINICAL INFORMATION: Left hand pain. COMPARISON: Most recent left hand radiographs dated 11/20/2019. TECHNIQUE: PA, lateral, and oblique views of the left hand. FINDINGS: Interval resection involving the majority of the trapezium, with corticated osseous fragments remaining in the surgical bed. No acute fracture or dislocation. Joint space narrowing with marginal osteophytes throughout the metacarpophalangeal and interphalangeal joints, most prominent at the 3rd metacarpophalangeal joint, progressed when compared to the prior examination. No osseous erosion. Dystrophic calcifications within the dorsal soft tissues. XR/XR hand LT min 3V IMPRESSION: 1. Interval resection involving the majority of the trapezium, with corticated osseous fragments in the surgical bed. 2. Degenerative arthritis throughout the metacarpophalangeal and interphalangeal joints, most prominent at the 3rd metacarpophalangeal joint, progressed when compared to the prior examination. Electronically signed by: John Ratliff MD 08/17/2024 09:49 PM EDT
[2024-08-17 20:47] VITALS: BP 186/84; PULSE 117; RESP 18; TEMP 37.2; O2SAT 100; BMI 36.0
--- NOTE | 2024-08-17 20:54 | ED_ITS ---
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 Sumner comes here for increased redness and swelling especially for last 1 week no fever no chills Related Data Home Medications ?Medication ?Instructions ?Recorded ?Confirmed ipratropium bromide 42 mcg (0.06 2 spray intranasal DAILY 03/11/21 08/01/24 %) nasal spray benralizumab 30 mg/mL subcutaneous 30 mg subcut Q8W 10/06/22 08/01/24 syringe (Fasenra) pyridostigmine bromide 60 mg tablet 60 mg PO TID 01/02/23 08/01/24 nebulizers 03/09/23 08/01/24 bismuth subsalicylate 262 mg 2 mg PO DAILY PRN Diarrhea 11/20/23 08/01/24 tablet (Pepto-Bismol) carvedilol 6.25 mg tablet 6.25 mg PO DAILY for blood pressure 04/15/24 08/01/24 epinephrine 0.3 mg/0.3 mL IM DIRECTED anaphylaxis 04/15/24 08/01/24 injection, auto-injector mometasone 200 mcg/actuation HFA 2 puff inhalation BID 04/15/24 08/01/24 aerosol inhaler (Asmanex HFA) Previous Rx's ?Medication ?Instructions ?Recorded blood pressure monitor #1 ea 01/21/23 levalbuterol tartrate 45 2 puff inhalation Q6H PRN 11/14/23 mcg/actuation aerosol inhaler shortness of breath or wheezing 30 (Xopenex HFA) days #15 grams DIABETIC SHOES #1 ea 11/29/23 omeprazole 40 mg capsule,delayed 40 mg PO BID gastritis #180 caps 12/23/23 release pen needle, diabetic 32 gauge x #100 ea 02/12/24 (BD Laura 2nd Gen Pen Needle) ferrous sulfate 325 mg (65 mg 325 mg PO DAILY #90 tabs 02/20/24 iron) tablet (FeroSul) lancets 28 gauge (FreeStyle #150 ea 03/19/24 Lancets) Fiasp FlexTouch U-100 Insulin 100 See Rx Instructions subcut 04/19/24 unit/mL (3 mL) subcutaneous pen .COMPLEX 30 days #150 mL (insulin aspart (niacinamide)) spironolactone 25 mg tablet 25 mg PO DAILY #30 tabs 04/22/24 cholecalciferol (vitamin D3) 50 100 mcg (2 x 50 mcg (2,000 unit)) 04/25/24 mcg (2,000 unit) capsule PO BEDTIME #90 caps Magic Mouthwash 10 ml PO QID #240 mL 05/09/24 Diphen/Lido/Antacid 1:1:1 240 mL suspension insulin degludec 100 unit/mL (3 12 unit (0.12 mL) subcut DAILY 30 05/28/24 mL) subcutaneous pen (Tresiba days #3.6 mL FlexTouch U-100 insulin) blood sugar diagnostic (FreeStyle #150 ea 06/04/24 Lite Strips) ondansetron 8 mg disintegrating 8 mg PO Q8H PRN nausea and 06/11/24 tablet vomiting 10 days #30 tabs tizanidine 2 mg tablet 2 mg PO TID PRN for muscle spasm 06/21/24 #90 tabs calcium citrate 500 mg (2 x 250 mg calcium) PO BID 06/26/24 30 days #120 tabs atorvastatin 40 mg tablet 40 mg PO BEDTIME #90 tabs 07/03/24 montelukast 10 mg tablet 10 mg PO BEDTIME 90 days #90 tabs 07/05/24 methylprednisolone 4 mg tablets in See Rx Instructions PO DAILY 12 07/24/24 a dose pack (Medrol (Jarrett)) days #28 ea amoxicillin 875 mg-potassium 1 tab PO BID 10 days #20 tabs 07/26/24 clavulanate 125 mg tablet fluconazole 100 mg tablet 100 mg PO DAILY 7 days #7 tabs 07/26/24 losartan 25 mg tablet 25 mg PO BEDTIME 90 days #90 tabs 07/26/24 Synthroid 112 mcg tablet 224 mcg (2 x 112 mcg) PO DAILY #60 08/08/24 (levothyroxine) tabs hydromorphone 2 mg tablet 2 mg PO Q4-6H PRN pain #21 tabs 08/08/24 hydromorphone 2 mg tablet 2 mg PO TID PRN pain 7 days #21 08/16/24 tabs nystatin 100,000 unit/gram topical 1 appl topical TID #60 grams 08/16/24 powder (Nystop) loratadine 10 mg tablet 10 mg PO DAILY #90 tabs 08/17/24 Allergies Allergy/AdvReac Type Severity Reaction Status Date / Time cephalexin Allergy Severe Difficulty Verified 08/01/24 11:44 Breathing latex [LATEX] Allergy Severe Difficulty Verified 08/17/24 20:53 Breathing levofloxacin [From LEVAQUIN] Allergy Severe SHORTNESS Verified 08/17/24 20:53 OF BREATH, RASH, rash morphine [MORPHINE] Allergy Severe RASH, Verified 08/17/24 20:53 asthma exacerbation, rash baclofen [BACLOFEN] Allergy Intermediate Rash Verified 08/17/24 20:53 celecoxib [Celebrex] Allergy Intermediate itching, Verified 08/17/24 20:53 rash, flushing prednisone [PREDNISONE] Allergy Intermediate RASH, Verified 08/17/24 20:53 asthma exacerbation, rash codeine Allergy Unknown Rash Verified 08/17/24 20:53 gluten [GLUTEN] Allergy Unknown UNKNOWN Verified 08/17/24 20:53 oxycodone Allergy Unknown rash Verified 08/17/24 20:53 ranitidine Allergy Unknown unknown Verified 08/17/24 20:53 roflumilast [Daliresp] Allergy Unknown rash Verified 08/17/24 20:53 tramadol [TRAMADOL] Allergy Unknown RASH,SHORTNESS Verified 08/17/24 20:53 OF BREATH AND HEADACHE, asthma exacerbation, rash celery Allergy Rash Verified 08/17/24 20:53 cyclobenzaprine Allergy Rash and Verified 08/17/24 20:53 [From Flexeril] asthma exacerbation environmental allergies Allergy Cleaning Verified 08/17/24 20:53 products cause asthma attack pineapple Allergy Rash Verified 08/17/24 20:53 strawberry Allergy Rash Verified 08/17/24 20:53 sulfamethoxazole AdvReac Intermediate vertigo Verified 08/17/24 20:53 [From Bactrim] trimethoprim [From Bactrim] AdvReac Intermediate vertigo Verified 08/17/24 20:53 diazepam [From Valium] AdvReac Cough Verified 08/17/24 20:53 Review of Systems 2 Review of Systems: Yes all other systems are reviewed and are negative PMFSH Past Medical History Medical History Anemia Chronic restrictive lung disease Brugada syndrome Shortness of breath Encounter for care related to Port-a-Cath Tinea pedis Recurrent cellulitis of lower extremity CHARLES (obstructive sleep apnea) Hypogammaglobulinemia Cellulitis of both lower extremities Right hip pain Lumbar degenerative disc disease Benign essential hypertension Obesity (BMI 30-39.9) Mitochondrial myopathy Asthma Diabetes mellitus History of revision of total replacement of right hip joint (~12/2019) Acquired hypothyroidism Pain of both hip joints Pure hypercholesterolemia Hx of cataract HTN (hypertension) Osteopenia Hypothyroidism Osteoarthritis of hip Gastritis Surgical History History of removal of Port-a-Cath History of total right hip arthroplasty (~06/03/19) History of eye surgery (~09/2017) History of hip surgery Hx of foot surgery (~01/02/19) History of removal of cyst Hx of left knee surgery History of elbow surgery (~07/2016) Hx of thumb surgery Hx of appendectomy Hx of hysterectomy (~07/2011) Hx of bilateral breast reduction surgery Family History Family History Father Leukemia Mother Hypertension Diabetes Sister Alive and well Brother Pancreatic cancer Paternal Grandmother Stomach cancer Paternal Grandmother Throat cancer Social History Social History Household Members: Family and Children Housing: Apartment Do you presently have visiting nurse or other home services: No Alcohol intake: former Comment: refused bed alarm Patient Tobacco Use Status: Never used Tobacco Smoked in Last 30 Days: No e-Cigarette/Vaping Use: Never Used Second Hand Smoke Exposure: No Use of substances other than those prescribed or required for medical reasons: No Advance Directives: Yes Advance Directives on File: Yes Advance Directives Date on File: 10/02/23 Do you have a plan to hurt others: No Plan Nutrition Risks: No Nutritional Risk Patient : No service: No Current occupational status: disabled Cognitive needs: No Hearing needs: No Vision needs: No Physical Exam ED Vital Signs: Vital Signs - 24 hr 08/17/24 20:47 Temperature 98.9 F Pulse Rate 117 H Respiratory Rate 18 Blood Pressure 186/84 H Pulse Oximetry 100 Oxygen Delivery Method Room Air BMI result Body Mass Index 36.0 Appearance: Alert. Oriented X3. No acute distress. ENT: Pharynx normal. Oral Mucosa moist Neck: Normal inspection. Neck supple. CVS: Normal heart rate and rhythm. Pulses normal. Respiratory: No respiratory distress. Equal air entry bilateral, Abdomen: Soft and nontender. Bowel sounds are present, no mass palpable, no CVA tenderness Skin: Skin warm and dry. Normal skin color. Normal skin turgor. Extremities: No lower extremity edema. No calf tenderness sausage shaped left 2nd finger tender to touch warmth neurovascular intact Neuro: Oriented X 3. Course Course Course Narrative: This is an RME: Additional HPI, ROS, PE not included below will be deferred to primary provider. RME assessment and note performed by: Tabatha Lauren PA-C This is a [id number]-female, This is a 52-year-old female with pertinent history of essential hypertension, mixed hyperlipidemia, insulin-dependent type 2 diabetes mellitus, asthma not on home oxygen, hypothyroidism, mood disorder, chronic pain syndrome on chronic opioids, hypogammaglobulinemia on IVIG, who presents to the ER with complaints of right second finger pain x 12 hours. Patient states that over the last 9 months she has had issues with her left 2nd digit she had a cyst that was surgically excised by [facility]. She has had some drainage since then. She states that over the last 12 hours she has had worsening pain, swelling, and redness to the hand. Plan: Labs, left hand xray Medications Administered Generic Name Dose Route Start Last Admin Trade Name Myronq PRN Reason Stop Dose Admin Acetaminophen 975 mg 08/17/24 23:29 08/17/24 23:57 Acetaminophen 325 Mg Tablet PO 975 mg Q6H PRN Administration Pain, Mild (Pain Scale 1-3), fever or headache Hydromorphone HCl 1 mg 08/18/24 01:36 EST 08/18/24 01:48 EDT Hydromorphone Hcl 1 Mg/Ml Syringe IVPUSH 1 mg Q3H PRN Administration Pain, Severe (Pain Scale 7-10) Protocol Hydromorphone HCl 2 mg 08/18/24 05:09 08/18/24 05:16 Hydromorphone Hcl 2 Mg Tablet PO 2 mg Q4H PRN Administration Pain, Severe (Pain Scale 7-10) Piperacillin Sod/Tazobactam 50 mls @ 100 mls/hr 08/18/24 05:00 08/18/24 05:48 Sod 3.375 gm/ Sodium Chloride IV Infused Q6H FLORECITA Infusion Ondansetron HCl 4 mg 08/18/24 01:56 EST 08/18/24 05:55 Ondansetron Hcl 4 Mg/2 Ml Vial IVPUSH 4 mg Q6H PRN Administration Nausea and Vomiting Sodium Chloride 3 ml 08/18/24 00:00 08/18/24 00:21 0.9 % Sodium Chloride Flush 3 Ml Syringe IVFLUSH Not Given QSHIFT FLORECITA Discontinued Medications Generic Name Dose Route Start Last Admin Trade Name Freq PRN Reason Stop Dose Admin Diphenhydramine HCl 50 mg 08/18/24 01:07 EST 08/18/24 01:26 EST Diphenhydramine Hcl 50 Mg/Ml Vial IVPUSH 08/18/24 01:08 EST 50 mg ONCE STA Administration Hydromorphone HCl 2 mg 08/17/24 22:21 08/17/24 23:13 Hydromorphone Hcl 2 Mg/Ml Vial IVPUSH 08/17/24 22:22 2 mg ONCE ONE Administration Protocol Vancomycin HCl 1,500 mg/ 500 mls @ 333.333 mls/hr 08/17/24 22:18 08/17/24 23:53 Sodium Chloride IV 08/17/24 23:47 Not Given PREOP ONE Piperacillin Sod/Tazobactam 50 mls @ 100 mls/hr 08/17/24 22:18 08/17/24 23:52 Sod 3.375 gm/ Sodium Chloride IV 08/17/24 22:47 Infused ONCE ONE Infusion Vancomycin HCl 2,000 mg in 500 mls @ 250 mls/hr 08/17/24 23:45 08/18/24 01:08 EST Vancomycin/Ns IV 08/18/24 01:44 EST Infused ONCE ONE Infusion Sodium Chloride 2,857.62 mls @ 2,857.62 mls/hr 08/17/24 23:44 08/17/24 23:58 Ns 30 ml/kg infuse over 1 hr (2857.62 ml) 08/18/24 00:43 2,857.62 mls/hr IV Administration .Q1H STA Ondansetron HCl 4 mg 08/17/24 23:07 08/17/24 23:13 Ondansetron Hcl 4 Mg/2 Ml Vial IVPUSH 08/17/24 23:08 4 mg ONCE ONE Administration Tizanidine HCl 2 mg 08/17/24 22:18 08/17/24 23:13 Tizanidine Hcl 4 Mg Tablet PO 08/17/24 22:19 2 mg ONCE ONE Administration Medical Decision Making Medical Decision Making [facility] Narrative: Patient with chronic mucoid cyst of right index finger with worsening of the swelling followed by Dr. Singer hand surgeon will admit patient for further evaluation for tenosynovitis possible surgery patient is started on vancomycin Zosyn Differential Diagnosis Differential Diagnoses: The differential diagnosis associated with the presentation includes Tenosynovitis/compartment/cellulitis Admission/Observation Consideration of admission/observation: Escalation of care including admission/observation considered Consult Healthcare Provider Management of the patient was discussed with: Hospitalist Lab Data [facility] Lab Attestation statement: I reviewed the patient's lab results. 08/17/24 21:25 08/18/24 04:47 Labs: Lab Results 08/17/24 Range/Units 21:25 WBC 16.2 H (4.8-10.8) X10*3/uL RBC 4.46 (4.20-5.50) X10*6/uL Hgb 12.4 (12.0-16.0) g/dl Hct 36.7 L (37.0-47.0) % MCV 82.3 (80.0-98.0) fL MCH 27.8 (27.0-33.0) pg MCHC 33.8 (31.0-35.0) g/dl RDW 13.8 (11.0-16.0) % Plt Count 140 L D (160-400) X10*3/uL MPV 11.0 (9.4-12.3) fL Immature Gran % (Auto) 0.4 (0.0-0.4) % Neut % (Auto) 81.2 H (45-73) % Lymph % (Auto) 11.3 L (20-40) % [place] % (Auto) 6.9 (2-11) % Eos % (Auto) 0.1 (0-4) % Baso % (Auto) 0.1 (0-2) % Lymph # (Auto) 1.8 (1.2-4.9) X10*3/uL [place] # (Auto) 1.1 (0.1-1.2) X10*3/uL Eos # (Auto) 0.0 (0.0-0.4) X10*3/uL Baso # (Auto) 0.0 (0.0-0.2) X10*3/uL Abs Immat Gran (auto) 0.06 H (0.00-0.03) X10*3/uL Absolute Neuts (auto) 13.2 H (2.0-8.3) x10*3/uL Absolute Nucleated RBC 0.000 (0.0-0.012) X10*3/uL Nucleated RBC % (auto) 0.0 (0.0-0.2) /100WBC ESR 7 (0-20) MM/HR Sodium 139 (135-145) mmol/L Potassium 4.0 (3.3-5.1) mmol/L Chloride 103 (96-108) mmol/L Carbon Dioxide 22 (22-29) mmol/L Anion Gap 18 (12-20) BUN 16 (9-16) mg/dL Creatinine 0.80 (0.5-1.4) mg/dL Estim Creat Clear Calc 89.9 Estimated GFR > 60 Random Glucose 207 H (60-115) mg/dL Lactic Acid 1.5 (0.5-2.0) mmol/L Calcium 9.9 (8.4-10.2) mg/dL Total Bilirubin 0.9 (0.0-1.0) mg/dL Direct Bilirubin 0.2 (0.0-0.5) mg/dL AST 23 (5-31) U/L ALT 30 (0-31) U/L Alkaline Phosphatase 128 H (39-117) U/L C-Reactive Protein 0.29 (< or = 0.50) mg/dL Total Protein 7.4 (6.5-8.0) g/dL Albumin 4.3 (3.5-5.0) g/dL Discharge Plan Discharge Clinical Impression: Cellulitis of finger of left hand, Tenosynovitis of finger Patient Disposition: Admitted As Inpatient
--- NOTE | 2024-08-17 20:57 | ECG_ITS ---
Test Reason : TACHYCARDIA Blood Pressure : / mmHG Vent. Rate : 115 BPM Atrial Rate : 115 BPM P-R Int : 152 ms QRS Dur : 118 ms QT Int : 338 ms P-R-T Axes : 035 -33 -07 degrees QTc Int : 467 ms Sinus tachycardia Left axis deviation Brugada pattern, type 1 Left ventricular hypertrophy with QRS widening ( R in aVL , Shen product ) Abnormal ECG When compared with ECG of 19-NOV-2023 08:54, Brugada pattern, type 1 present Referred By: Tabatha Lauren Electronically Signed By:EAGLE WILLIS
[2024-08-17 21:32] LABS: MANUAL DIFF FLAG NO
[2024-08-17 21:36] LABS: Basophils Percent Auto 0.1 % (0-2); Eosinophils Percent Auto 0.1 % (0-4); Hematocrit 36.7 % (37.0-47.0); Hemoglobin 12.4 g/dl (12.0-16.0); Imm Gran Abs Auto 0.06 X10*3/uL (0.00-0.03); Imm Gran Pct Auto 0.4 % (0.0-0.4); Lymphocytes Absolute Auto 1.8 X10*3/uL (1.2-4.9); Lymphocytes Percent Auto 11.3 % (20-40); Mean Corpuscular HGB Conc 33.8 g/dl (31.0-35.0); Mean Corpuscular Hemoglobin 27.8 pg (27.0-33.0); Mean Corpuscular Volume 82.3 fL (80.0-98.0); Monocytes Absolute Auto 1.1 X10*3/uL (0.1-1.2); Monocytes Percent Auto 6.9 % (2-11); Neutrophils Absolute Auto 13.2 x10*3/uL (2.0-8.3); Neutrophils Percent Auto 81.2 % (45-73); Platelet Count 140 X10*3/uL (160-400); Red Blood Count 4.46 X10*6/uL (4.20-5.50); Red Cell Distribution Width 13.8 % (11.0-16.0); White Blood Count 16.2 X10*3/uL (4.8-10.8)
[2024-08-17 21:43] LABS: Lactic Acid 1.5 mmol/L (0.5-2.0)
[2024-08-17 21:47] LABS: Alanine Aminotransferase 30 U/L (0-31); Albumin Level 4.3 g/dL (3.5-5.0); Alkaline Phosphatase 128 U/L (39-117); Anion Gap 18 (12-20); Aspartate Amino Transferase 23 U/L (5-31); Bilirubin Direct 0.2 mg/dL (0.0-0.5); Bilirubin Total 0.9 mg/dL (0.0-1.0); Blood Urea Nitrogen 16 mg/dL (9-16); C Reactive Protein 0.29 mg/dL (< or = 0.50); Calcium 9.9 mg/dL (8.4-10.2); Carbon Dioxide 22 mmol/L (22-29); Chloride 103 mmol/L (96-108); Creatinine Clr Calc Pharmacy 89.9; Estimated Glomerular Filt Rate > 60; Glucose Random 207 mg/dL (60-115); Sodium 139 mmol/L (135-145); Total Protein 7.4 g/dL (6.5-8.0)
[2024-08-17 22:16] LABS: Erythrocyte Sedimentation Rate 7 MM/HR (0-20)
[2024-08-17] MEDS: HYDROmorphone HCl 2 MG/ML VIAL IVPUSH (23:13)
[2024-08-17] MEDS: TiZANidine HCL 4 MG TABLET 2 MG PO (23:13)
[2024-08-17] MEDS: ondansetron HCL 4 MG/2 ML VIAL IVPUSH (23:13)
[2024-08-17] MEDS: Piperacillin Sodium/Tazobactam 3.375 GM in 0.9 % Sodium Chloride 50 ML IV (23:14)
[2024-08-17 23:34] VITALS: BP 108/72; PULSE 100; RESP 16; TEMP 38.6; O2SAT 93
--- NOTE | 2024-08-17 23:37 | P.HPHOSP_ITS ---
History of Present Illness Date of Service: 08/17/24 Attending physician on admission: Bradley Harden Chief Complaint: Left index finger pain and worsening swelling Deysi Armendariz is a 53 years old woman with past medical history significant for type 2 diabetes mellitus, asthma, hyperlipidemia, liver cirrhosis likely due BENEDICT with portal hypertension/gastropathy/esophageal varices, essential hypertension, Brugada syndrome and hypothyroidism presents to the emergency department complaining of worsening swollen to the left index finger associated with pain. She has had surgery on the left hand with Dr. Flynn for tendon repair. She developed a cyst to this finger in January of this year. She has been followed by her hand surgeon for this. She took a course of antibiotics and steroids about a week and a half ago for upper respiratory symptoms prescribed by her business development engineer. She reported chills and no suggestive fever. Complain of nausea but denied events of vomiting. She did not report any headache, dizziness, palpitations or any cardiopulmonary symptoms. In the ED, she was found to have fever of 101.5 and tachycardia. Systolic blood pressure dropped from 186/84 to 108/72. Blood workup is remarkable for leukocytosis of 16.2. There is no lactic acidosis. Hemoglobin is 12.4. Platelets are 140. Electrolyte imbalances platelet function. LFTs consult furosemide elevation of alk-phos CRP is 0.29. Left hand x-ray showed interval resection only with the majority of the trapezium with corticated osseous fragment in the surgical bed and degenerative changes more prominent at the 3rd metacarpophalangeal joint. ECG showed sinus tachycardia heart rate 112 beats per minute. ED tx: Vancomycin 1.5 g IV, Zosyn 3.375 g IV, Zanaflex 2 mg p.o., Dilaudid 2 mg IV, Zofran 4 mg IV Review of Systems 2 Review of Systems: All 12 systems were reviewed and normal except as noted in HPI. [facility] Medical History Anemia Chronic restrictive lung disease Brugada syndrome Shortness of breath Encounter for care related to Port-a-Cath Tinea pedis Recurrent cellulitis of lower extremity CHARLES (obstructive sleep apnea) Hypogammaglobulinemia Cellulitis of both lower extremities Right hip pain Lumbar degenerative disc disease Benign essential hypertension Obesity (BMI 30-39.9) Mitochondrial myopathy Asthma Diabetes mellitus History of revision of total replacement of right hip joint (~12/2019) Acquired hypothyroidism Pain of both hip joints Pure hypercholesterolemia Hx of cataract HTN (hypertension) Osteopenia Hypothyroidism Osteoarthritis of hip Gastritis Family History Father Leukemia Mother Hypertension Diabetes Sister Alive and well Brother Pancreatic cancer Paternal Grandmother Stomach cancer Paternal Grandmother Throat cancer Surgical History History of removal of Port-a-Cath History of total right hip arthroplasty (~06/03/19) History of eye surgery (~09/2017) History of hip surgery Hx of foot surgery (~01/02/19) History of removal of cyst Hx of left knee surgery History of elbow surgery (~07/2016) Hx of thumb surgery Hx of appendectomy Hx of hysterectomy (~07/2011) Hx of bilateral breast reduction surgery Social History Household Members: Family and Children Housing: Apartment Do you presently have visiting nurse or other home services: No Alcohol intake: former Comment: refused bed alarm Patient Tobacco Use Status: Never used Tobacco e-Cigarette/Vaping Use: Never Used Second Hand Smoke Exposure: No Advance Directives: Yes Advance Directives on File: Yes Advance Directives Date on File: 10/02/23 Do you have a plan to hurt others: No Plan service: No Current occupational status: disabled Cognitive needs: No Hearing needs: No Vision needs: No Meds Allergies Allergy/AdvReac Type Severity Reaction Status Date / Time cephalexin Allergy Severe Difficulty Verified 08/01/24 11:44 Breathing latex [LATEX] Allergy Severe Difficulty Verified 08/17/24 20:53 Breathing levofloxacin [From LEVAQUIN] Allergy Severe SHORTNESS Verified 08/17/24 20:53 OF BREATH, RASH, rash morphine [MORPHINE] Allergy Severe RASH, Verified 08/17/24 20:53 asthma exacerbation, rash baclofen [BACLOFEN] Allergy Intermediate Rash Verified 08/17/24 20:53 celecoxib [Celebrex] Allergy Intermediate itching, Verified 08/17/24 20:53 rash, flushing prednisone [PREDNISONE] Allergy Intermediate RASH, Verified 08/17/24 20:53 asthma exacerbation, rash codeine Allergy Unknown Rash Verified 08/17/24 20:53 gluten [GLUTEN] Allergy Unknown UNKNOWN Verified 08/17/24 20:53 oxycodone Allergy Unknown rash Verified 08/17/24 20:53 ranitidine Allergy Unknown unknown Verified 08/17/24 20:53 roflumilast [Daliresp] Allergy Unknown rash Verified 08/17/24 20:53 tramadol [TRAMADOL] Allergy Unknown RASH,SHORTNESS Verified 08/17/24 20:53 OF BREATH AND HEADACHE, asthma exacerbation, rash celery Allergy Rash Verified 08/17/24 20:53 cyclobenzaprine Allergy Rash and Verified 08/17/24 20:53 [From Flexeril] asthma exacerbation environmental allergies Allergy Cleaning Verified 08/17/24 20:53 products cause asthma attack pineapple Allergy Rash Verified 08/17/24 20:53 strawberry Allergy Rash Verified 08/17/24 20:53 sulfamethoxazole AdvReac Intermediate vertigo Verified 08/17/24 20:53 [From Bactrim] trimethoprim [From Bactrim] AdvReac Intermediate vertigo Verified 08/17/24 20:53 diazepam [From Valium] AdvReac Cough Verified 08/17/24 20:53 Active Medications: Current Medications Acetaminophen (Acetaminophen 325 Mg Tablet) 975 mg PO Q6H PRN PRN Reason: Pain, Mild (Pain Scale 1-3), fever or headache Vancomycin HCl 1,500 mg/ (Sodium Chloride) 500 mls @ 333.333 mls/hr IV PREOP ONE Stop: 08/17/24 23:47 Piperacillin Sod/Tazobactam (Sod 3.375 gm/ Sodium Chloride) 50 mls @ 100 mls/hr IV Q6H [facility] Pharmacy Consult (Consult Rx Vancomycin Dosing) 1 each MISCELLANE DAILY PRN PRN Reason: Consult order Sodium Chloride (0.9 % Sodium Chloride Flush 3 Ml Syringe) 3 ml IVFLUSH QSHIFT [facility] Home Medications ?Medication ?Instructions ?Recorded ?Confirmed ?Last Taken ?Type ipratropium bromide 42 mcg (0.06 2 spray intranasal DAILY 03/11/21 08/01/24 11/18/23 History %) nasal spray benralizumab 30 mg/mL subcutaneous 30 mg subcut Q8W 10/06/22 08/01/24 10/04/23 History syringe (Fasenra) pyridostigmine bromide 60 mg tablet 60 mg PO TID 01/02/23 08/01/24 11/18/23 History nebulizers 03/09/23 08/01/24 Unknown History bismuth subsalicylate 262 mg 2 mg PO DAILY PRN Diarrhea 11/20/23 08/01/24 Unknown History tablet (Pepto-Bismol) carvedilol 6.25 mg tablet 6.25 mg PO DAILY for blood pressure 04/15/24 08/01/24 05/09/24 History epinephrine 0.3 mg/0.3 mL IM DIRECTED anaphylaxis 04/15/24 08/01/24 Unknown History injection, auto-injector mometasone 200 mcg/actuation HFA 2 puff inhalation BID 04/15/24 08/01/24 05/09/24 History aerosol inhaler (Asmanex HFA) Physical Exam 2 Vital Signs and Narrative: Vital Signs: Last Vital Signs Temp 101.5 F H 08/17/24 23:34 Pulse 100 08/17/24 23:34 Resp 16 08/17/24 23:34 BP 108/72 08/17/24 23:34 Pulse Ox 93 08/17/24 23:34 O2 Del Method Room Air 08/17/24 23:34 BMI result Body Mass Index 36.0 Constitutional - Awake and Alert, No apparent distress. Obese. Febrile. HEENT - PER, EOMI Heart - Tachycardic. Normal rate. Lungs - Normal lung expansion, Normal respiratory effort, No respiratory distress, CTA bilaterally Abdomen - NT / ND; +BS; No rebound or guarding Extremities: Left hand/2nd digit Marked edema, erythema and tenderness; unable to flex. Musculoskeletal - Normal inspection. Skin - Warm/Dry Neurological - Alert & oriented x3. No focal weakness grossly noted. Psychological - Appropriate affect Results Labs 08/17/24 21:25 08/17/24 21:25 Labs: Laboratory Results - last 24 hr 08/17/24 21:25 MCV 82.3 MCH 27.8 MCHC 33.8 RDW 13.8 Plt Count 140 L D MPV 11.0 Immature Gran % (Auto) 0.4 Neut % (Auto) 81.2 H Lymph % (Auto) 11.3 L Rush % (Auto) 6.9 Eos % (Auto) 0.1 Baso % (Auto) 0.1 Lymph # (Auto) 1.8 Rush # (Auto) 1.1 Eos # (Auto) 0.0 Baso # (Auto) 0.0 Abs Immat Gran (auto) 0.06 H Absolute Neuts (auto) 13.2 H Absolute Nucleated RBC 0.000 Nucleated RBC % (auto) 0.0 ESR 7 Anion Gap 18 Estim Creat Clear Calc 89.9 Estimated GFR > 60 Random Glucose 207 H Lactic Acid 1.5 Calcium 9.9 Total Bilirubin 0.9 Direct Bilirubin 0.2 AST 23 ALT 30 Alkaline Phosphatase 128 H C-Reactive Protein 0.29 Total Protein 7.4 Albumin 4.3 Imaging Radiologist's Impressions: Impressions Hand X-Ray 08/17/24 20:56 IMPRESSION: 1. Interval resection involving the majority of the trapezium, with corticated osseous fragments in the surgical bed. 2. Degenerative arthritis throughout the metacarpophalangeal and interphalangeal joints, most prominent at the 3rd metacarpophalangeal joint, progressed when compared to the prior examination. Electronically signed by: John Ratliff MD 08/17/2024 09:49 PM EDT RP Assessment and Plan (1) Severe sepsis: Status: Acute (2) Abscess of left index finger: Status: Acute Plan Deysi Armendariz is a 53 y/o woman admitted with: * Severe sepsis due to left index finger tenosynovitis , associated abscess?: Fever, tachycardia, SBP decreased > 40 from baseline. [place] synovitis Admit to hospitalist service. NPO after midnight. Continue empiric IV antibiotic therapy with Zosyn and vancomycin. Start fluid bolus 30ml/kg. Blood culture obtained -will follow results. Orthopedic consult -Dr. Singer aware -per ED. * Hyperlipidemia. Continue statin. * Essential hypertension. Hold losartan and carvedilol for now as systolic blood pressure significantly dropped from baseline. * Chronic pain syndrome on chronic opiates. Continue Dilaudid. * Hypothyroidism. Continue Synthroid. * Diabetes mellitus/LORNE. Insulin sliding scale. * Liver cirrhosis due to BENEDICT with portal hypertension/history of esophageal varices. Compensated. No bleeding reported. * Thrombocytopenia. Chronic due to liver cirrhosis. Continue to monitor. * Obesity, class III. BMI 36.0 kg/m2. Weight loss. * Hx of Brugada syndrome. F/U with manufacturer agent. * Allergy rhinitis and asthma. Continue Singulair and inhalers. Fasenra. 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 DVT prophylaxis: SCDs Code status: Full Patient will need hospitalization for at least 2 midnights for severe sepsis due to left 2nd digit tenosynovitis treatment and management with IV antibiotics, IV fluids and evaluation by surgery for possible procedure. Quality Stroke Does the patient have a stroke diagnosis?: No VTE Prior VTE?: No VTE Risk Level:: Medical - low VTE Device Contraindication: N/A - Device Ordered VTE Drug Contraindication: Treatment Not Indicated
--- OUTSIDE RECORDS SUMMARY | 2024-08-17 23:43 | XMS_ITS | Continuity of Care Document ---
Author Organization [facility] Address [address] [place] [id number]- Care Team Providers Care Pneumatic Jack Operator Name Role Phone Tae RANDOLPH, Cassius Mtz Primary Care Physician [facility]counter [facility] [place] [id number] Date(s): 04/26/21 - 07/18/21 [facility] [address] [place] [id number]- Attending Physician: Janna Israel MD Admitting Physician: Janna Israel MD Allergies, Adverse Reactions, Alerts Substance Reaction Severity Status codeine rash Persistent Severe Active cephalexin abdominal pain and headaches Active morphine dizziness,rash Persistent Severe Active predniSONE 1 rash, asthma worsens Persistent Severe Ac tive Flexeril rash, disoriented Persistent Severe Activ e Levaquin 2 chest pain rash Persistent Severe Active Vicodin bad headache and loss of vision Persisten t Severe Active Glutens gi upset, diarrhea w ith bloating Persistent Severe Active Latex rash with asthma worsening Persistent Sev ere Active Strawberries dyspnea Persistent Severe Active Other Food Allergy raw carrots Persistent Severe Acti ve Other Environmental Allergy 3, 4 perfume, plants, meat boner and slicer, chemicals Persistent Severe Active Apples mouth tingles and as thma worsens Persistent Severe Active Celery tingly mouth and asthma worsens Persisten t Severe Active Lactose gas, bloating Persistent Severe Active Oranges asthma worsens Persistent Severe Active TraMADol Hydrochloride rash and lightheadedness Persis tent Severe Active Pineapple dyspnea Persistent Severe Active 1can take Medrol 2rash and chest pain 3flowers 4all are asthma triggers Medications atorvastatin 40 mg oral tablet 1 tablet = 40 mg, By Mouth, Daily at bedtime, 0 Refills, Maintenance Start Date: 11/07/17 Status: Ordered Claritin 10 mg oral tablet 1 tablet = 10 mg, By Mouth, Daily, 0 Refills, Maintenance, 03/22/12 13:15:23 EDT, Tablet Start Date: 03/22/12 Status: Ordered Dilaudid 2 mg oral tablet 1 tablet = 2 mg, By Mouth, Every 8 hours, 0 Refills, Maintenance, 07/26/19 14:50:02 EDT, Partial fill upon patient request Start Date: 07/26/19 Status: Ordered EpiPen 2-Jarrett = 0.3 mg, Intramuscular, PRN Anaphylactic Reaction, may repeat if necessary, 0 Refills, Maintenance, 04/11/14 12:00:05 EDT Start Date: 04/11/14 Status: Ordered Fasenra = 30 mg, Subcutaneous Infusion, Every 2 months, for eosinophilic asthma, 0 Refills, Maintenance, 11/12/18 7:48:42 EST Start Date: 11/12/18 Status: Ordered Ferrous Sulfate EC 325, By Mouth, Daily at bedtime, Refills 0, Maintenance, 04/25/17 7:22:38 EDT Start Date: 04/25/17 Status: Ordered ipratropium nasal 42 mcg/inh spray 2 sprays, Nares, Both, Daily in AM, 0 Refills, Maintenance, 03/12/14 11:11:14 EDT Start Date: 03/12/14 Status: Ordered losartan 50 mg oral tablet See Instructions, .5 tablet By Mouth Daily at bedtime (reduced to 25mg), Refills 0, Maintenance, 11/23/18 11:06:03 EST, Instructions Replace Required Details Start Date: 11/23/18 Status: Ordered Mestinon 60 mg oral tablet 1 tablet = 60 mg, By Mouth, 2 times a day, 0 Refills, Maintenance, 11/10/14 12:47:17 EST Start Date: 11/10/14 Status: Ordered metFORMIN 500 mg oral tablet 1 tablet = 500 mg, By Mouth, 2 times a day, 0 Refills, Maintenance, 11/07/17 12:22:08 EST Start Date: 11/07/17 Status: Ordered metoprolol 50 mg oral tablet 50 mg, 1, tablet, By Mouth, Daily in AM, Refills 0, Maintenance, 05/15/18 9:48:25 EDT Start Date: 05/15/18 Status: Ordered montelukast 10 mg oral tablet 10 mg, 1, tablet, By Mouth, Daily at bedtime, Refills 0, Maintenance, 11/07/17 12:31:26 EST Start Date: 11/07/17 Status: Ordered omeprazole 40 mg oral enteric coated capsule 1 capsule = 40 mg, By Mouth, Daily at bedtime, 0 Refills, Maintenance, 04/25/17 7:25:18 EDT, EC Capsule Start Date: 04/25/17 Status: Ordered penicillAMINE 250 mg oral tablet 1 tablet = 250 mg, By Mouth, 2 times a day, for cellulitis, # 100 tablet, 0 Refills, Maintenance, 02/25/21 11:23:00 EDT, Tablet, Partial fill upon patient request if the prescription is for a schedule II opioid drug. Start Date: 02/25/21 Status: Ordered Spiriva Respimat 28 inhalation aerosol = 2.5 mcg, Inhalation, Daily, 0 Refills, Maintenance, 02/23/15 9:06:31 Start Date: 02/23/15 Status: Ordered Synthroid 0.025 mg oral tablet = 200 mcg, By Mouth, Daily in AM, 0 Refills, Maintenance, 06/13/19 14:00:27 EDT, Tablet Start Date: 06/13/19 Status: Ordered Vitamin D3 2000 intl units oral capsule 2 capsule = 4,000 International_Units, By Mouth, Daily, Maintenance, 01/02/19 12:27:12 EDT Start Date: 01/02/19 Status: Ordered Xopenex HFA 45 mcg/inh inhalation aerosol 2 puffs, Inhalation, Every 4 hours, PRN Wheezing/Shortness of Breath, 0 Refills, Maintenance, 03/26/18 13:34:59 EDT, Aerosol Start Date: 03/26/18 Status: Ordered Problem List Condition Effective Dates Status Health Status Inform ant Cushingoid side effect of steroids(Confirmed) Active Hypothyroidism(Confirmed) Active Osteopenia(Confirmed) Active Asthma, severe persistent(Confirmed) Active Type II diabetes mellitus, w ell controlled(Confirmed) Active Social History Social History Type Response Smoking Status Never smoker entered on: 08/28/14 Sex Medical Equipment Implanted Date:01/11/19Target Site:Foot Right Description Quantity MRI Company Model INJ AUGMENT BONE GRAFT 1.5ML - WRGT ([id number]) 1 [employer] Unknown THOMPSON:No Information Assigning Authority: FDA
--- OUTSIDE RECORDS SUMMARY | 2024-08-17 23:43 | XMS_ITS | Continuity of Care Document ---
Author Organization [facility] Address [address] [place] [id number]- Care Team Providers Care It Risk And Assurance Manager Name Role Phone Cassius Strong MD Primary Care Physician [phone] Encounter [facility] Date(s): 07/04/19 - 10/18/[address] [address]- [facility] Attending Physician: Salty Welch DO Admitting Physician: Salty Welch DO Referring Physician: Salty Welch DO Allergies, Adverse Reactions, Alerts Substance Reaction Severity Status codeine rash Persistent Severe Active morphine dizziness,rash Persistent Severe Active predniSONE [...] Other Environmental Allergy 3, 4 perfume, plants, windows migration technician, chemicals Persistent Severe Active Apples mouth tingles and as thma worsens Persistent Severe Active Celery tingly mouth and asthma worsens Persisten t Severe Active Lactose gas, bloating Persistent Severe Active Oranges asthma worsens Persistent Severe Active TraMADol Hydrochloride rash and lightheadedness Persis tent Severe Active Pineapple dyspnea Persistent Severe Active 1can take Medrol 2rash and chest pain 3flowers 4all are asthma triggers Medications aspirin 81 mg oral delayed release tablet 81 mg, By Mouth, Daily, # 30 tablet, Refills 0, Tot. Refills 0, Maintenance, 04/16/17 13:32:26, Route to Pharmacy Electronically, [id number], [facility] [id number] Start Date: 04/16/17 Status: Ordered atorvastatin 40 mg oral tablet 1 tablet = 40 mg, By Mouth, Daily at bedtime, 0 Refills, Maintenance Start Date: 11/07/17 Status: Ordered Claritin 10 mg oral tablet 1 tablet = 10 mg, By Mouth, Daily, 0 Refills, Maintenance, 03/22/12 13:15:23 EDT, Tablet Start Date: 03/22/12 Status: Ordered Colace sodium 100 mg oral capsule 200 mg, 2, capsule, By Mouth, Daily, # 60 capsule, Refills 3, Tot. Refills 3, Maintenance, 06/25/1912:47:54 EDT, Route to Pharmacy Electronically, [id number], [id number] Start Date: 06/25/19 Stop Date: 10/23/19 Status: Ordered Dilaudid 2 mg oral tablet [...] 7:22:38 EDT Start Date: 04/25/17 Status: Ordered Humalog Kwik Pen 100 units/mL subcutaneous injection See Instructions, Subcutaneous Infusion, inject up to 18 units 3 times daily with meals. for E11.9,# 30 mL, 5 Refills, Maintenance, 01/27/16 17:05:00 Start Date: 01/27/16 Stop Date: 07/25/16 Status: Ordered ipratropium nasal 42 mcg/inh spray [...] 12:22:08 EST Start Date: 11/07/17 Status: Ordered methylPREDNISolone 4 mg oral tablet 2 tablets, By Mouth, 2 times a day, takes 6 in the am and 8 at noc, 0 Refills, Maintenance, 11/07/17 12:30:36 EST Start Date: 11/07/17 Status: Ordered metoprolol 50 mg oral tablet 50 mg, 1, tablet, By Mouth, Daily in AM, Refills 0, Maintenance, 05/15/18 9:48:25 EDT Start Date: 05/15/18 Status: Ordered MiraLax oral powder for reconstitution = 17 Gm, By Mouth, Daily, dissolve in water before taking, # 527 Gm, 3 Refills, Maintenance, 06/25/19 12:47:44 EDT, REC Powder, 17 Gm By Mouth Daily,Instr:dissolve in water before taking Start Date: 06/25/19 Status: Ordered montelukast 10 mg oral tablet 10 mg, 1, tablet, By Mouth, Daily at bedtime, Refills 0, Maintenance, 11/07/17 12:31:26 EST Start Date: 11/07/17 Status: Ordered nitroglycerin 0.4 mg sublingual tablet = 0.4 mg, Sublingual, Every 5 minutes, PRN Chest Pain, not to exceed 3 doses/15 min--if pain persists, seek medical attention, # 100 tablet, 0 Refills, Maintenance, 04/16/17 13:32:23, Tablet Start Date: 04/16/17 Status: Ordered NuLYTELY with Flavor Packs oral powder for reconstitution See Instructions, 240 mL By Mouth Q 20 min until completed, # 4,000 mL, 0 Refills, Maintenance, 06/25/19 12:47:37 EDT, REC Powder, 240 mL By Mouth Q 20 min until completed Start Date: 06/25/19 Status: Ordered Nystatin 100,000 Units/mL Oral Liquid 1 tsp, By Mouth, Daily, PRN thrush, 0 Refills, Maintenance, 03/12/14 11:17:17 EDT Start Date: 03/12/14 Status: Ordered omeprazole 40 mg oral enteric coated capsule 1 capsule = 40 mg, By Mouth, Daily at bedtime, 0 Refills, Maintenance, 04/25/17 7:25:18 EDT, EC Capsule Start Date: 04/25/17 Status: Ordered Orthotics 1, # 1 units, Maintenance, Right foot raise. Please measure and give appropriate addition, 01/18/1913:37:21 EDT, Compound Start Date: 01/18/19 Status: Ordered Performix P2 Performix P2, See Instructions, # 180 Gm, Refills 1, Tot. Refills 1, Maintenance, Ketamine 10% Baclofen 2% Gabapentin 10% Imipramine 3% Nifedipine 2% Bupivicaine 2% in Liposomal cream, 11/22/18 7:26:14 EST, Compound Start Date: 11/22/18 Status: Ordered Privigen See Instructions, GAMMAGARD 40 mg IV Infusion EVERY 3 WEEKS, 0 Refills, Maintenance, 12/09/15 13:15:10 EST Start Date: 12/09/15 Status: Ordered Spiriva Respimat 28 inhalation aerosol = 2.5 mcg, Inhalation, Daily, 0 Refills, Maintenance, 02/23/15 9:06:31 Start Date: 02/23/15 Status: Ordered Synthroid 0.025 mg oral tablet = 200 mcg, By Mouth, Daily in AM, 0 Refills, Maintenance, 06/13/19 14:00:27 EDT, Tablet Start Date: 06/13/19 Status: Ordered Toujeo SoloStar = 50 units, Subcutaneous Injection, Daily at bedtime, 0 Refills, Maintenance, 09/21/18 11:07:25 EST Start Date: 09/21/18 Status: Ordered Vitamin D3 2000 intl units oral capsule 2 capsule = 4,000 International_Units, By Mouth, Daily, Maintenance, 01/02/19 12:27:12 EDT Start Date: 01/02/19 Status: Ordered Xopenex HFA 45 mcg/inh inhalation aerosol 2 puffs, Inhalation, Every 4 hours, PRN Wheezing/Shortness of Breath, 0 Refills, Maintenance, 03/26/18 13:34:59 EDT, Aerosol Start Date: 03/26/18 Status: Ordered Zantac 150 oral tablet 1 tablet = 150 mg, By Mouth, 2 times a day, # 60 tablet, 0 Refills, Maintenance, 06/26/19 11:26:36 EDT, Tablet Start Date: 06/26/19 Status: Ordered Problem List Condition Effective Dates [...] INJ AUGMENT BONE GRAFT 1.5ML - WRGT ([id number]) 1 [employer] Unknown THOMPSON:No Information Assigning Authority: FDA
--- OUTSIDE RECORDS SUMMARY | 2024-08-17 23:43 | XMS_ITS | Continuity of Care Document ---
Author Organization [facility] Address [address] [place] [address]- Care Team Providers Care Director Mortgage Name Role Phone Cassius Strong MD Primary Care Physician Encounter [facility] [place] ACCT R [id number] Date(s): 03/20/21 - 04/19/21 [facility] [address] [place] [address]- Attending Physician: Derrell Toribio Admitting Physician: AdmDerrell ruggiero Referring Physician: AdmtrDerrell Allergies, Adverse Reactions, Alerts Substance Reaction Severity [...] Other Environmental Allergy 3, 4 perfume, plants, hydrotherapist, chemicals Persistent Severe Active Apples mouth tingles [...] mg, By Mouth, Daily, 0 Refills, Maintenance, 06/07/12 13:15:23 EDT, Tablet Start Date: 03/22/12 Status: [...] INJ AUGMENT BONE GRAFT 1.5ML - WRGT ([id number]) 1 [employer] Unknown THOMPSON:No Information Assigning Authority: FDA
--- OUTSIDE RECORDS SUMMARY | 2024-08-17 23:43 | XMS_ITS | Continuity of Care Document ---
Author Organization [facility] ter Address [address] [place] [address]- Care Team Providers Care Line Appliance Assembler Name Role Phone Cassius Strong MD Primary Care Physician Encounter [facility] [place] Date(s): 06/13/22 - 09/04/[address] [id number] Attending Physician: Prisca Mae Admitting Physician: Prisca Mae Referring Physician: Prisca Mae Allergies, Adverse Reactions, Alerts Substance Reaction Severity Status codeine rash Persistent Severe Active cephalexin abdominal pain and headaches Active predniSONE 1 rash, asthma worsens Persistent Severe Ac tive Levaquin 2 chest pain rash Persistent Severe Active Glutens gi upset, diarrhea w ith bloating Persistent Severe Active Other Food Allergy raw carrots Persistent Severe Acti ve morphine dizziness,rash Persistent Severe Active Flexeril rash, disoriented Persistent Severe Activ e Vicodin bad headache and loss of vision Persisten t Severe Active Latex rash with asthma worsening Persistent Sev ere Active Strawberries dyspnea Persistent Severe Active Apples mouth tingles and as thma worsens Persistent Severe Active Other Environmental Allergy 3, 4 perfume, plants, food runner, chemicals Persistent Severe Active Celery tingly mouth and [...] tablet = 40 mg, By Mouth, Daily before lunch, # 30 tablet, 5 Refills, Maintenance, 01/06/22 10:18:00 EDT, Tablet, Partial fill upon patient request if the prescription is for a schedule II opioid drug. Start Date: 01/06/22 Status: Ordered Claritin 10 mg oral tablet 1 tablet = 10 mg, By Mouth, Daily, 0 Refills, Maintenance, 03/22/12 13:15:23 EDT, Tablet Start Date: 03/22/12 Status: Ordered Fasenra Prefilled Syringe 30 mg/mL subcutaneous solution 0 Refills, Maintenance, 07/22/22 12:36:00 EDT, Partial fill upon patient request if the prescription is for a schedule II opioid drug. Start Date: 07/22/22 Status: Ordered Ferrous Sulfate EC 325, By Mouth, Daily, Refills 0, Maintenance, 04/25/17 7:22:38 EDT Start Date: 04/25/17 Status: Ordered Gammagard See Instructions, every 21 days, 0 Refills, Maintenance, 01/06/22 10:18:00 EDT, Partial fill upon patient request if the prescription is for a schedule II opioid drug. Start Date: 01/06/22 Status: Ordered Hydromorphone = 2 mg, By Mouth, 2 times a day, 0 Refills, Maintenance, 01/06/22 10:18:00 EDT, Partial fill upon patient request if the prescription is for a schedule II opioid drug. Start Date: 01/06/22 Status: Ordered Ibuprofen 600 mg, 2 times a day, Refills 0, Maintenance, 01/06/22 10:18:00 EDT, Partial fill upon patient request if the prescription is for a schedule II opioid drug. Start Date: 01/06/22 Status: Ordered ipratropium nasal 42 mcg/inh spray 2 sprays, Nares, Both, Daily in AM, 0 Refills, Maintenance, 03/12/14 11:11:14 EDT Start Date: 03/12/14 Status: Ordered Lantus Solostar Pen 100 units/mL subcutaneous solution INJECT 4 UNITS SUBCUTANEOUSLY EVERY EVENING. Start Date: 07/20/22 Status: Ordered levothyroxine 0.112 mg oral tablet 2 tablet = 224 mcg, By Mouth, Daily at bedtime, 0 Refills, Maintenance, 01/19/22 17:21:00 EDT, Partial fill upon patient request if the prescription is for a schedule II opioid drug. Start Date: 01/19/22 Status: Ordered losartan 25 mg oral tablet 25 mg, 1, tablet, By Mouth, Daily at bedtime, Refills 0, Maintenance, 01/19/22 15:09:00 EDT, Partial fill upon patient request if the prescription is for a schedule II opioid drug. Start Date: 01/19/22 Status: Ordered Mestinon 60 mg oral tablet 1 tablet = 60 mg, By Mouth, 4 times a day, 0 Refills, Maintenance, 11/10/14 [...] EC Capsule Start Date: 04/25/17 Status: Ordered Spiriva Respimat 28 inhalation aerosol = 2.5 mcg, Inhalation, Daily, 0 Refills, Maintenance, 02/23/15 9:06:31 Start Date: 02/23/15 Status: Ordered tiZANidine 2 mg oral capsule 2 capsule = 4 mg, By Mouth, Daily at bedtime, 0 Refills, Maintenance, 01/06/22 10:21:00 EDT, Partial fill upon patient request if the prescription is for a schedule II opioid drug. Start Date: 01/06/22 Status: Ordered Vitamin D3 2000 intl units oral capsule 2 capsule = 4,000 International_Units, By Mouth, Daily, Maintenance, 01/02/19 12:27:12 EDT Start Date: 01/02/19 Status: Ordered Xopenex HFA 45 mcg/inh inhalation aerosol 2 puffs, Inhalation, Every 4 hours, PRN Wheezing/Shortness of Breath, 0 Refills, Maintenance, 03/26/18 13:34:59 EDT, Aerosol Start Date: 03/26/18 Status: Ordered Zofran 4 mg oral tablet 1 tablet = 4 mg, By Mouth, Every 8 hours, PRN as needed for nausea/vomiting, # 21 tablet, 0 Refills, Maintenance, 01/21/22 7:25:00 EDT, Tablet, [facility], Partial fill upon patient request if the prescription is for a schedule II opioid... 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 Hypothyroidism Confirmed Active Obese class II Confirmed Active Osteopenia Confirmed Active Asthma, severe persistent Confirmed Active Type II diabetes mellitus, well controlled Confirmed Active Social History Social History Type Response Smoking Status Never smoker entered on: 08/28/14 Sex Implantable Device List Procedure Provider Procedure Date Device Type Site Fusion/Arthrodesis First MetatarsChetan Griffin MD 01/11/19 Unknown Foot Right Device Identifier Serial Number Lot or Batch Number Manufacturing Date Expiration Date Distinct Identification Code MRI Safety Implantable Status Assigning Authority Unknown Unknown [id number] Unknown 08/12/21 Unknown Unknown Active Un known Patient Care team information Care Team Personnel Name: Cassius Strong MD Position: Reference Physician Member Role: PCP Address: Address: [address] [place] [address]- [place] Name: Meli Avila RN Position: S RN Member Role: Primary Care Nurse Name: Leela Aguirre RN Position: [facility] RN Member Role: Primary Care Nurse Name: Elvira Maldonado RN Position: S RN Member Role: Primary Care Nurse Name: Valerie Vela NP Position: Reference Physician Member Role: Primary Care Nurse Address: Address: [address] [place] [address] [address] [place] [address]- [place] Name: Marcia Manning RN Position: [facility] RN Supv Member Role: Primary Care Nurse Name: Carol Ann Torres RN Position: S RN Member Role: Primary Care Nurse Name: Valerie Hernandez RN Position: [facility] SN Roll Or Tape Edge Machine Operator Member Role: Primary Care Nurse Name: Vivi Kaur RN Position: [facility] RN Member Role: Primary Care Nurse Name: Zehra Carrillo RN Position: [facility] RN Member Role: Primary Care Nurse Name: Scott Oviedo Position: [facility] RN Member Role: Primary Care Nurse Name: Mook Marinelli RN Position: [facility] RN Member Role: Primary Care Nurse Name: Annalisa Bhakta RN Position: [facility] RN Member Role: Primary Care Nurse Name: Pooja Newby RN Position: [facility] Hospital Wet Machine Tender Member Role: Primary Care Nurse Name: Stefania Polk RN Position: [facility] RN Member Role: Primary Care Nurse Name: Tessie Jason RN Position: [facility] RN Member Role: Primary Care Nurse Name: Wander Ferraro RN Position: [facility] RN Member Role: Primary Care Nurse Name: Chetan Mullen RN Position: [facility] ED RN W/OE and Tasks Member Role: Primary Care Nurse Name: Bhavna Augustin RN Position: [facility] RN Member Role: Primary Care Nurse Care Team Related Persons Name: ROBERT HERNÁNDEZ Address: [address] [place] [address] Name: KAREN SHANNON Address: [address] [place] [address] Name: MARTHA SHANNON Address: [address] [place] [address] Name: MARCELINO MALCOLM Address: [address] [place] [address]
--- OUTSIDE RECORDS SUMMARY | 2024-08-17 23:43 | XMS_ITS | Continuity of Care Document ---
Author Organization [facility] ter Address [address] [place] [address]- Care Team Providers Care Chair Upholsterer Name Role Phone Cassius Strong MD Primary Care Physician [phone] Encounter [facility] [place] Date(s): 12/28/21 - 02/09/[address] [address] Attending Physician: Kasandra Alberts MD Allergies, Adverse Reactions, Alerts Substance Reaction [...] Other Environmental Allergy 3, 4 perfume, plants, heat treat technician, chemicals Persistent Severe Active Apples mouth [...] 3flowers 4all are asthma triggers Medications aspirin 325 mg oral delayed release tablet 325 mg, 1, tablet, By Mouth, Daily, # 30 tablet, Refills 0, Tot. Refills 0, Maintenance, 01/21/22 7:24:00 EDT, Route to Pharmacy Electronically, [facility], Partial fill upon patient request if the prescription is for a schedule II opioi... Start Date: 01/21/22 Status: Ordered atorvastatin 40 mg oral tablet [...] EDT, Tablet Start Date: 03/22/12 Status: Ordered Ferrous Sulfate EC 325, By [...] 11:11:14 EDT Start Date: 03/12/14 Status: Ordered levothyroxine 0.112 mg oral tablet [...] 0 Refills, Maintenance, 01/21/22 7:25:00 EDT, Tablet, [facility], Partial fill upon patient request if the prescription is for a schedule II opioid... Start Date: 01/21/22 Stop Date: 01/28/22 Status: Ordered Zofran 4 mg oral tablet 0.5 mg tablet, By Mouth, Every 8 hours, PRN Nausea, 0 Refills, Maintenance, 01/19/22 15:06:00 EDT, Partial fill upon patient request if the prescription is for a schedule II opioid drug. Start Date: 01/19/22 Status: Ordered Problem List Condition Effective Dates Status Health Status Inform ant Trochanteric bursitis of bot h hips(Confirmed) Active Cushingoid side effect of steroids(Confirmed) Active Hypothyroidism(Confirmed) Active Obese class II(Confirmed) Active Osteopenia(Confirmed) Active Asthma, severe persistent(Confirmed) Active Type II diabetes mellitus, w ell controlled(Confirmed) Active Social History Social History Type Response Smoking Status Never smoker entered on: 08/28/14 Sex Medical Equipment Implanted Date:01/11/19Target Site:Foot Right Description Quantity MRI Company Model INJ AUGMENT BONE GRAFT 1.5ML - WRGT ([id number]) 1 [employer] Unknown THOMPSON:No Information Assigning Authority: FDA
--- OUTSIDE RECORDS SUMMARY | 2024-08-17 23:43 | XMS_ITS | Continuity of Care Document ---
Author Organization [facility] ter Address [address] [place] [address]- Care Team Providers Care Market Asset Protection Manager Name Role Phone Cassius Strong MD Primary Care Physician [phone] [place] [facility] [place] Date(s): 08/24/20 - 10/21/[address] [address] Attending Physician: Salty Welch DO Admitting Physician: Salty Welch DO Referring Physician: Salty Welch DO Allergies, Adverse Reactions, Alerts Substance Reaction Severity Status codeine rash Persistent Severe Active Vicodin bad headache and loss of vision Persisten t Severe Active Glutens gi upset, diarrhea w ith bloating Persistent Severe Active morphine dizziness,rash Persistent Severe Active predniSONE 1 rash, asthma worsens Persistent Severe Ac tive Flexeril rash, disoriented Persistent Severe Activ e Levaquin 2 chest pain rash Persistent Severe Active Latex rash with asthma worsening Persistent Sev ere Active Strawberries dyspnea Persistent Severe Active Other Food Allergy raw carrots Persistent Severe Acti ve Other Environmental Allergy 3, 4 perfume, plants, telegraph equipment maintainer, chemicals Persistent Severe Active Apples mouth tingles [...] Maintenance, 04/16/17 13:32:26, Route to Pharmacy Electronically, [id number], [facility] [id number] Start Date: 04/16/17 Status: Ordered atorvastatin 40 [...] Maintenance, 06/25/1912:47:54 EDT, Route to Pharmacy Electronically, [id number], [id number] Start Date: 06/25/19 Stop Date: 10/23/19 Status: [...] tablets, By Mouth, 2 times a day, 2 mg in am and 4 mg at HS, 0 Refills, Maintenance, 11/07/17 12:30:36 EST Start [...] INJ AUGMENT BONE GRAFT 1.5ML - WRGT ([id number]) 1 [employer] Unknown THOMPSON:No Information Assigning Authority: FDA
--- OUTSIDE RECORDS SUMMARY | 2024-08-17 23:43 | XMS_ITS | Continuity of Care Document ---
Author Organization [facility] Address [address] [place] [address]- Care Team Providers Care Tree Cutter Name Role Phone Cassius Strong MD Primary Care Physician [place] [facility] [id number] Date(s): 03/03/21 - 04/09/21 [facility] [address] [place] [address] Attending Physician: Not on Staff, Attending MD Allergies, Adverse Reactions, Alerts Substance Reaction Severity Status codeine rash Persistent Severe Active cephalexin abdominal pain and headaches Active Glutens gi upset, diarrhea w ith [...] Other Environmental Allergy 3, 4 perfume, plants, centrifugal operator, chemicals Persistent Severe Active Apples mouth tingles [...] INJ AUGMENT BONE GRAFT 1.5ML - WRGT ([id number]) 1 [employer] Unknown THOMPSON:No Information Assigning Authority: FDA
--- OUTSIDE RECORDS SUMMARY | 2024-08-17 23:43 | XMS_ITS | Continuity of Care Document ---
Author Organization [facility] ter Address [address] [place] [address]- Care Team Providers Care Nuclear Weapons Specialist Name Role Phone Cassius Strong MD Primary Care Physician [place] [facility] [place] Date(s): 03/07/22 - 05/10/[address] [address] Attending Physician: Salty Welch DO Admitting Physician: [...] with asthma worsening Persistent Sev ere Active Other Food Allergy raw carrots Persistent Severe Acti ve Strawberries dyspnea Persistent Severe Active Other Environmental Allergy 3, 4 perfume, plants, tourist information assistant, chemicals Persistent Severe Active Apples mouth tingles [...] 01/21/22 7:24:00 EDT, Route to Pharmacy Electronically, [facility], Partial fill upon patient request [...] EC Capsule Start Date: 04/25/17 Status: Ordered Penicillin Penicillin, Refills 0, Maintenance, 02/11/22 14:50:00 EDT, Supply Start Date: 02/11/22 Status: Ordered Spiriva Respimat 28 inhalation aerosol [...] 0 Refills, Maintenance, 01/21/22 7:25:00 EDT, Tablet, [facility], Partial fill upon patient request if [...] INJ AUGMENT BONE GRAFT 1.5ML - WRGT ([id number]) 1 [employer] Unknown THOMPSON:No Information Assigning Authority: FDA
--- OUTSIDE RECORDS SUMMARY | 2024-08-17 23:43 | XMS_ITS | Continuity of Care Document ---
Author Organization [facility] Address [address] [place] [address]- Care Team Providers Care Product Line Manager Name Role Phone Tae RANDOLPH, Cassius Mtz Primary Care Physician [place] [facility] [place]s): 02/21/22 - 03/23/22 [facility] [address] [place] [address]- Allergies, Adverse Reactions, Alerts Substance Reaction Severity [...] Other Environmental Allergy 3, 4 perfume, plants, patient accounts specialist, chemicals Persistent Severe Active Apples mouth tingles [...] 01/21/22 7:24:00 EDT, Route to Pharmacy Electronically, [facility], Partial fill upon patient request if [...] 0 Refills, Maintenance, 01/21/22 7:25:00 EDT, Tablet, [facility], Partial fill upon patient request if [...] INJ AUGMENT BONE GRAFT 1.5ML - WRGT ([id number]) 1 [employer] Unknown THOMPSON:No Information Assigning Authority: FDA
--- OUTSIDE RECORDS SUMMARY | 2024-08-17 23:43 | XMS_ITS | Continuity of Care Document ---
Author Organization [facility] ter Address [address] [place] [address]- Care Team Providers Care Biomathematician Name Role Phone Cassius Strong MD Primary Care Physician [place] [facility] [place](s[place] 07/20/21 - 08/27/[address] [address]- Attending Physician: Salty Welch DO Admitting Physician: [...] Other Environmental Allergy 3, 4 perfume, plants, gluing pressman, chemicals Persistent Severe Active Apples mouth tingles [...] INJ AUGMENT BONE GRAFT 1.5ML - WRGT ([id number]) 1 [employer] Unknown THOMPSON:No Information Assigning Authority: FDA
--- OUTSIDE RECORDS SUMMARY | 2024-08-17 23:43 | XMS_ITS | Continuity of Care Document ---
Author Organization [facility] Address [address] [place] [address]- Care Team Providers Care Director Regulatory Affairs Name Role Phone Cassius Strong MD Primary Care Physician [phone] [place] [facility] [place]10[place]20 - 02/17/20 [facility] [address] [place] [address] [facility] Attending Physician: Orestes Zuleta MD Referring Physician: Cassius Strong MD Allergies, Adverse Reactions, Alerts Substance Reaction Severity Status codeine rash Persistent Severe Active predniSONE 1 rash, asthma worsens Persistent Severe Ac tive Vicodin bad headache and loss of vision [...] 2 chest pain rash Persistent Severe Active Celery tingly mouth and asthma worsens Persisten t Severe Active Lactose gas, bloating Persistent Severe Active Oranges asthma worsens Persistent Severe Active Other Environmental Allergy 3, 4 perfume, plants, printing pressman, chemicals Persistent Severe Active Apples mouth tingles and as thma worsens Persistent Severe Active TraMADol Hydrochloride rash and lightheadedness Persis tent Severe Active Pineapple dyspnea Persistent Severe Active 1can take Medrol 2rash and chest pain 3flowers 4all are asthma triggers Medications aspirin 81 mg oral delayed release tablet 81 mg, By Mouth, Daily, # 30 tablet, Refills 0, Tot. Refills 0, Maintenance, 04/16/17 13:32:26, Route to Pharmacy Electronically, [id number], [facility] [id number] Start Date: 04/16/17 Status: Ordered atorvastatin 40 [...] Maintenance, 06/25/1912:47:54 EDT, Route to Pharmacy Electronically, [id number], [id number] Start Date: 06/25/19 Stop Date: 10/23/19 Status: [...] INJ AUGMENT BONE GRAFT 1.5ML - WRGT ([id number]) 1 [employer] Unknown THOMPSON:No Information Assigning Authority: FDA
--- OUTSIDE RECORDS SUMMARY | 2024-08-17 23:43 | XMS_ITS | Continuity of Care Document ---
Author Organization [facility] ter Address [address] [place] [address]- Care Team Providers Care Lace Tearing Supervisor Name Role Phone Cassius Strong MD Primary Care Physician [phone] Encounter [facility] [place] Date(s): 03/02/21 - 04/26/[address] [address]- Attending Physician: Salty Welch DO Admitting Physician: [...] Other Environmental Allergy 3, 4 perfume, plants, heavy rail train operator, chemicals Persistent Severe Active Apples mouth [...] INJ AUGMENT BONE GRAFT 1.5ML - WRGT ([id number]) 1 [employer] Unknown THOMPSON:No Information Assigning Authority: FDA
--- OUTSIDE RECORDS SUMMARY | 2024-08-17 23:43 | XMS_ITS | Continuity of Care Document ---
Author Organization [facility] Address [address] [place] [address]- Care Team Providers Care Advertising Agency Manager Name Role Phone Cassius Strong MD Primary Care Physician En[place] [facility] [place] [id number] Date(s): 11/29/21 - 12/29/21 [facility] [address] [place] [address]- Attending Physician: Derrell Toribio Admitting Physician: Derrell Toribio Referring Physician: Derrell Toribio Allergies, Adverse Reactions, Alerts Substance Reaction Severity [...] Other Environmental Allergy 3, 4 perfume, plants, supervisor records change, chemicals Persistent Severe Active Apples mouth tingles [...] INJ AUGMENT BONE GRAFT 1.5ML - WRGT ([id number]) 1 [employer] Unknown THOMPSON:No Information Assigning Authority: FDA
--- OUTSIDE RECORDS SUMMARY | 2024-08-17 23:43 | XMS_ITS | Continuity of Care Document ---
Author Organization [facility] Address [address] [place] [address]- Care Team Providers Care Cardiology Technician Name Role Phone Cassius Strong MD Primary Care Physician [phone] Encounter [facility] Date(s): 07/31/19 - 11/13/19 [facility] [address] [place] [address]- [facility] Attending Physician: Orestes Zuleta MD Admitting Physician: Orestes Zuleta MD Referring Physician: Tello Lauren MD Allergies, Adverse Reactions, Alerts Substance Reaction [...] Other Environmental Allergy 3, 4 perfume, plants, ground school instructor, chemicals Persistent Severe Active Apples mouth tingles [...] Maintenance, 04/16/17 13:32:26, Route to Pharmacy Electronically, [id number], [facility] [id number] Start Date: 04/16/17 Status: Ordered atorvastatin 40 [...] Maintenance, 06/25/1912:47:54 EDT, Route to Pharmacy Electronically, [id number], [id number] Start Date: 06/25/19 Stop Date: 10/23/19 Status: [...] INJ AUGMENT BONE GRAFT 1.5ML - WRGT ([id number]) 1 [email or web address] Unknown THOMPSON:No Information Assigning Authority: FDA
--- OUTSIDE RECORDS SUMMARY | 2024-08-17 23:43 | XMS_ITS | Continuity of Care Document ---
Author Organization [facility] Address [address] [place] [address]- Care Team Providers Care It Risk Advisor Name Role Phone Cassius Strong MD Primary Care Physician En[place] [facility] [place] Date(s): 03/20/21 - 03/27/21 [facility] [address] [place] [address]- Encounter Diagnosis Skin tear of lower leg without complication(Discharge Diagnosis) - 03/21/21 Attending Physician: Tracee Davidson MD Referring Physician: Cassius Strong MD Allergies, [...] Other Environmental Allergy 3, 4 perfume, plants, sound tester, chemicals Persistent Severe Active Apples mouth tingles [...] II diabetes mellitus, w ell controlled(Confirmed) Active Diagnosis Diagnosis Type Effective Dates Health Status Clinical Service Informant Skin tear of lower leg without complication Discharge Diagnosis 03/21/21 Vital Signs Most recent to oldest [Reference Range]: 1 Height 162.6 cm (03/20/21 3:22 PM) Oxygen Saturation [94-100 %] 99 % (03/20/21 3:22 PM) Pulse Rate [55-90 bpm] 67 bpm (03/20/21 3:22 PM) Blood Pressure [90-138/55-84 mm Hg] 151/ 90mm Hg *H* (03/20/21 3:22 PM) Respiratory Rate [16-30 br/min] 20 br/mi n (03/20/21 3:22 PM) Temperature [96.8-100.4 DegF] 96.8 DegF (03/20/21 3:22 PM) Mode of Delivery (Oxygen) Room air (03/20/21 3:22 PM) Blood pressure sites Arm, right (03/20/21 3:22 PM) Temperature Route Temporal (03/20/21 3:22 PM) Social History Social History Type Response Smoking Status Never smoker entered on: 08/28/14 Sex Medical Equipment Implanted Date:01/11/19Target Site:Foot Right Description Quantity MRI Company Model INJ AUGMENT BONE GRAFT 1.5ML - WRGT ([id number]) 1 [employer] Unknown THOMPSON:No Information Assigning Authority: FDA
--- OUTSIDE RECORDS SUMMARY | 2024-08-17 23:43 | XMS_ITS | Continuity of Care Document ---
Author Organization [facility] Address [address] [place] [address]- Care Team Providers Care Automation Specialist Name Role Phone Cassius Strong MD Primary Care Physician Encounter [facility] [place] Date(s): 06/08/20 - 07/08/20 [facility] [address] [place] [address]- [facility] Allergies, Adverse Reactions, Alerts Substance Reaction Severity [...] Other Environmental Allergy 3, 4 perfume, plants, mechanical technologist, chemicals Persistent Severe Active Apples mouth tingles and as thma worsens Persistent Severe Active Celery tingly mouth and asthma worsens Persisten t Severe Active Lactose gas, bloating Persistent Severe Active Oranges asthma worsens Persistent Severe Active TraMADol Hydrochloride rash and lightheadedness Persis tent Severe Active Flexeril rash, disoriented Persistent Severe Activ e Strawberries dyspnea Persistent Severe Active Pineapple dyspnea Persistent Severe Active 1can take Medrol 2rash and chest pain 3flowers 4all are asthma triggers Medications aspirin 81 mg oral delayed release tablet 81 mg, By Mouth, Daily, # 30 tablet, Refills 0, Tot. Refills 0, Maintenance, 04/16/17 13:32:26, Route to Pharmacy Electronically, [id number], [id number] Start Date: 04/16/17 Status: Ordered atorvastatin 40 [...] Maintenance, 06/25/1912:47:54 EDT, Route to Pharmacy Electronically, [id number], [id number] Start Date: 06/25/19 Stop Date: 10/23/19 Status: [...] INJ AUGMENT BONE GRAFT 1.5ML - WRGT ([id number]) 1 [employer] Unknown THOMPSON:No Information Assigning Authority: FDA
--- OUTSIDE RECORDS SUMMARY | 2024-08-17 23:43 | XMS_ITS | Continuity of Care Document ---
Author Organization [facility] Address [address] [place] [address]- Care Team Providers Care Ceo & Co Founder Name Role Phone Cassius Strong MD Primary Care Physician En[place] [facility] [id number] Date(s): 05/20/22 - 06/19/22 [facility] [address] [place] [address]- Attending Physician: Derrell Toribio Admitting Physician: Derrell Toribio Referring Physician: AdmDerrell ruggiero Allergies, Adverse Reactions, Alerts Substance Reaction Severity [...] Other Environmental Allergy 3, 4 perfume, plants, 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 Start Date: 01/21/22 Stop Date: 01/28/22 Status: Ordered Problem List Condition Effective Dates [...] Procedure Date Device Type Site Fusion/Arthrodesis First Metatarsophroyce Rincon MD, Chetan Echevarria 01/11/19 Unknown Foot Right Device Identifier Serial Number Lot or Batch Number Manufacturing Date Expiration Date Distinct Identification Code MRI Safety Implantable Status Assigning Authority Unknown Unknown [id number] Unknown 08/12/21 Unknown Unknown Active Un known Care Team Personnel Name: Cassius Strong MD Address: [address] [place] [address]
--- OUTSIDE RECORDS SUMMARY | 2024-08-17 23:43 | XMS_ITS | Continuity of Care Document ---
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
--- OUTSIDE RECORDS SUMMARY | 2024-08-17 23:43 | XMS_ITS | Continuity of Care Document ---
Author Organization [facility] ter Address [address] [place] [address]- Care Team Providers Care Mine Equipment Design Engineer Name Role Phone Cassius Strong MD Primary Care Physician [phone] [place] [facility] [place] 04/11/22 - 07/06/[address] [address] Attending Physician: Ralf RANDOLPH(Hem/Onc), Burak Back Admitting Physician: Ralf RANDOLPH(Hem/Onc), Burak Back Referring Physician: Ralf RANDOLPH(Hem/Onc), Burak Back Allergies, Adverse Reactions, Alerts Substance Reaction Severity Status codeine rash Persistent Severe Active Glutens gi upset, diarrhea w ith bloating Persistent Severe Active Latex rash with asthma worsening Persistent Sev ere Active cephalexin abdominal pain and headaches Active morphine dizziness,rash Persistent Severe Active predniSONE 1 rash, asthma worsens Persistent Severe Ac tive Flexeril rash, disoriented Persistent Severe Activ e Levaquin 2 chest pain rash Persistent Severe Active Vicodin bad headache and loss of vision Persisten t Severe Active Strawberries dyspnea Persistent Severe Active Other Food Allergy raw carrots Persistent Severe Acti ve Other Environmental Allergy 3, 4 perfume, plants, 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, Partial fill upon [...] Procedure Date Device Type Site Fusion/Arthrodesis First Metatarsophalan Sergey RANDOLPH, Chetan Echevarria 01/11/19 Unknown Foot Right Device Identifier Serial Number Lot or Batch Number Manufacturing Date Expiration Date Distinct Identification Code MRI Safety Implantable Status Assigning Authority Unknown Unknown [id number] Unknown 08/12/21 Unknown Unknown Active Un known Care Team Personnel Name: Cassius Strong MD Address: [address] [place] [address] [place] [address]
--- OUTSIDE RECORDS SUMMARY | 2024-08-17 23:43 | XMS_ITS | Continuity of Care Document ---
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
--- OUTSIDE RECORDS SUMMARY | 2024-08-17 23:43 | XMS_ITS | Continuity of Care Document ---
Author Organization [facility] Address [address] [place] [address]- Care Team Providers Care Supervisory Investigative Specialist Name Role Phone Tae RANDOLPH, Cassius Mtz Primary Care Physician [phone] [place] [facility] [place] 10/26/21 - 11/25/21 [facility] [address] [place] [address]- Allergies, Adverse Reactions, Alerts Substance Reaction Severity Status codeine rash Persistent Severe Active Levaquin 1 chest pain rash Persistent Severe Active Glutens gi upset, diarrhea w ith bloating Persistent Severe Active cephalexin abdominal pain and headaches Active morphine dizziness,rash Persistent Severe Active predniSONE 2 rash, asthma worsens Persistent Severe Ac tive Flexeril rash, disoriented Persistent Severe Activ e Vicodin bad headache and loss of vision Persisten t Severe Active Latex rash with asthma worsening Persistent Sev ere Active Other Food Allergy raw carrots Persistent Severe Acti ve Strawberries dyspnea Persistent Severe Active Other Environmental Allergy 3, 4 perfume, plants, welt drawer, chemicals Persistent Severe Active Apples mouth tingles and as thma worsens Persistent Severe Active Celery tingly mouth and asthma worsens Persisten t Severe Active Lactose gas, bloating Persistent Severe Active Oranges asthma worsens Persistent Severe Active TraMADol Hydrochloride rash and lightheadedness Persis tent Severe Active Pineapple dyspnea Persistent Severe Active 1rash and chest pain 2can take Medrol 3flowers 4all are asthma triggers Medications atorvastatin [...] INJ AUGMENT BONE GRAFT 1.5ML - WRGT ([id number]) 1 [employer] Unknown THOMPSON:No Information Assigning Authority: FDA
--- OUTSIDE RECORDS SUMMARY | 2024-08-17 23:43 | XMS_ITS | Continuity of Care Document ---
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 Start Date: 04/16/17 Status: Ordered atorvastatin 40 [...] Maintenance, 06/25/1912:47:54 EDT, Route to Pharmacy Electronically, [id number], [facility][id number] Start Date: 06/25/19 Stop Date: 10/23/19 Status: [...] INJ AUGMENT BONE GRAFT 1.5ML - WRGT ([id number]) 1 [employer] Unknown THOMPSON:No Information Assigning Authority: FDA
--- OUTSIDE RECORDS SUMMARY | 2024-08-17 23:43 | XMS_ITS | Continuity of Care Document ---
Author Organization [facility] Address [address] [place] [address]- Care Team Providers Care Mash Filter Operator Name Role Phone Cassius Strong MD Primary Care Physician [phone] Encounter [facility] [place] Date(s): 12/25/23 - 01/24/24 [facility] [address] [place], [place] [address] Attending Physician: Derrell Toribio Admitting Physician: Derrell Toribio Referring Physician: AdmtrDerrell Allergies, Adverse Reactions, Alerts Substance Reaction Severity Status codeine rash Persistent Severe Active cephalexin abdominal pain and headaches Active Flexeril rash, disoriented Persistent Severe Activ e morphine dizziness,rash Persistent Severe Active predniSONE 1 [...] Other Environmental Allergy 3, 4 perfume, plants, 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 Start Date: 01/06/22 Status: Ordered carvedilol 6.25 mg oral tablet 6.25 mg, 1, tablet, By Mouth, 2 times a day, Refills 0, Maintenance, 10/17/23 10:59:00 EST, Partialfill upon patient request if the prescription is for a schedule II opioid drug. Start Date: 10/17/23 Status: Ordered Claritin 10 mg oral tablet [...] 0 Refills, Maintenance, 01/21/22 7:25:00 EDT, Tablet, [facility], Partial fill upon patient [...] Safety Implantable Status Assigning Authority Unknown Unknown [id number] Unknown 08/12/21 Unknown Unknown Active Un known Patient Care team information Care Team Personnel Name: Tae RANDOLPH, Cassius Mtz Position: Reference Physician Member Role: PCP Address: Address: [address] [place] [address] [place] [address]- [place] Name: Leela Aguirre RN Position: S RN Member Role: Primary Care Nurse Name: Elvira Maldonado RN Position: S RN Member Role: Primary Care Nurse Name: Valerie Vela NP Position: Reference Physician Member Role: Primary Care Nurse Address: Address: [address] [place] [address]- [place] Name: Carol Ann Torres RN Position: S RN Member Role: Primary Care Nurse Name: Bhavna Vazquez RN Position: [facility] Onco RN Member Role: Primary Care Nurse Name: Valerie Hernandez RN Position: [facility] SN Municipal Firefighter Member Role: Primary Care Nurse Name: Vivi Kaur RN Position: [facility] SN RN Member Role: Primary Care Nurse Name: Zehra Carrillo RN Position: [facility] RN Member Role: Primary Care Nurse Name: Scott Oviedo Position: [facility] RN Member Role: Primary Care Nurse Name: Mook Marinelli RN Position: [facility] RN Member Role: Primary Care Nurse Name: Pooja Newby RN Position: [facility] Hospital Grinding Wheel Dresser Member Role: Primary Care Nurse Name: Stefano Negron MD Position: [facility] Physician (General Medicine) Member Role: Lifetime Consulting Physician Address: Address: [address] [place] [address] [facility] [address] Name: Stefania Polk RN Position: [facility] SN RN Member Role: Primary Care Nurse Name: Tessie Jason RN Position: [facility] RN Member Role: Primary Care Nurse Name: Wander Ferraro RN Position: [facility] RN Member Role: Primary Care Nurse Name: Chandan Patiño Position: [facility] Outreach Member Role: Lifetime Consulting Physician Name: Chetan Mullen RN Position: [facility] ED RN W/OE and Tasks Member Role: Primary Care Nurse Care Team Related Persons Name: ROBERT HERNÁNDEZ Address: [address] [place] [address] Name: KAREN SHANNON Address: [address] [place] [address] Name: MARTHA SHANNON Address: [address] [place] [address] Name: MARCELINO MALCOLM Address: [address] [place] [address]
--- OUTSIDE RECORDS SUMMARY | 2024-08-17 23:43 | XMS_ITS | Continuity of Care Document ---
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, chemicals Persistent Severe Active Apples mouth tingles and as thma worsens Persistent Severe Active Celery tingly mouth and asthma worsens Persisten t Severe Active Lactose gas, bloating Persistent Severe Active Oranges asthma worsens Persistent Severe Active TraMADol Hydrochloride rash and lightheadedness Persis tent Severe Active Pineapple dyspnea Persistent Severe Active 1can take Medrol 2rash and chest pain 3flowers 4all are asthma triggers Medications acetaminophen 500 mg oral tablet 2 tablet = 1,000 mg, By Mouth, Every 8 hours, PRN for pain, for 15 days, # 90 tablet, 0 Refills, Acute 02/05/22 7:25:00 EDT, 01/21/22 7:25:00 EDT, Tablet, [facility], Partial fill upon patient request if the prescription is for a schedul... Start Date: 01/21/22 Stop Date: 02/05/22 Status: Ordered aspirin 325 mg oral delayed release tablet 325 mg, 1, tablet, By Mouth, Daily, # 30 tablet, Refills 0, Tot. Refills 0, Maintenance, 01/21/22 7:24:00 EDT, Route to Pharmacy Electronically, [facility], Partial fill upon patient [...] 0 Refills, Maintenance, 01/21/22 7:25:00 EDT, Tablet, [facility], Partial fill upon patient [...] INJ AUGMENT BONE GRAFT 1.5ML - WRGT ([id number]) 1 [employer] Unknown THOMPSON:No Information Assigning Authority: FDA
--- OUTSIDE RECORDS SUMMARY | 2024-08-17 23:44 | XMS_ITS | Continuity of Care Document ---
Author Organization [facility] Address [address] [place] [address]- Care Team Providers Care Electromechanical Assembler Name Role Phone Tae RANDOLPH, Cassius Mtz Primary Care Physician [place] [facility] [place]13[place]22 - 02/12/22 [facility] [address] [place] [address]- Allergies, Adverse Reactions, Alerts Substance Reaction Severity Status codeine rash Persistent Severe Active Glutens gi upset, diarrhea w ith bloating Persistent Severe Active cephalexin abdominal pain and headaches Active morphine dizziness,rash Persistent Severe Active predniSONE 1 rash, asthma worsens Persistent Severe Ac tive Other Food Allergy raw carrots Persistent Severe Acti ve Flexeril rash, disoriented Persistent Severe Activ e Levaquin 2 chest pain rash Persistent Severe Active Vicodin bad headache and loss of vision Persisten t Severe Active Latex rash with asthma worsening Persistent Sev ere Active Strawberries dyspnea Persistent Severe Active Other Environmental Allergy 3, 4 perfume, plants, 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 Refills 0, Maintenance, 01/21/22 7:24:00 EDT, Route to Pharmacy Electronically, [facility], Partial fill upon patient request if [...] 0 Refills, Maintenance, 01/21/22 7:25:00 EDT, Tablet, [facility], Partial fill upon patient request if [...] INJ AUGMENT BONE GRAFT 1.5ML - WRGT ([id number]) 1 [employer] Unknown THOMPSON:No Information Assigning Authority: FDA
--- OUTSIDE RECORDS SUMMARY | 2024-08-17 23:44 | XMS_ITS | Continuity of Care Document ---
Author Organization [facility] Address [address] [place] [address]- Care Team Providers Care Design Drafter Name Role Phone Cassius Strong MD Primary Care Physician [phone] [facility] [place] ACCT R [id number] Date(s): 02/25/21 - 04/02/21 [facility] [address] [place] [address] Attending Physician: Not on Staff, Attending [...] Other Environmental Allergy 3, 4 perfume, plants, microfiche duplicator, chemicals Persistent Severe Active Apples mouth tingles [...] INJ AUGMENT BONE GRAFT 1.5ML - WRGT ([id number]) 1 [employer] Unknown THOMPSON:No Information Assigning Authority: FDA
--- OUTSIDE RECORDS SUMMARY | 2024-08-17 23:44 | XMS_ITS | Continuity of Care Document ---
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, chemicals Persistent Severe Active Apples mouth tingles [...] 0 Refills, Maintenance, 01/21/22 7:25:00 EDT, Tablet, [facility], Partial fill upon patient [...] Date Device Type Site Fusion/Arthrodesis First Metatarsophalan Chetan Rincon MD 01/11/19 Unknown Foot Right Device Identifier Serial Number Lot or Batch Number Manufacturing Date Expiration Date Distinct Identification Code MRI Safety Implantable Status Assigning Authority Unknown Unknown [id number] Unknown 08/12/21 Unknown Unknown Active Un known Patient Care team information Care Team Personnel Name: Cassius Strong MD Position: Reference Physician Member Role: PCP Address: Address: [address] [place] [address]- Name: Meli Avila RN Position: S RN Member Role: Primary Care Nurse Name: Leela Aguirre RN Position: [facility] RN Member Role: Primary Care Nurse Name: Evlira Maldonado RN Position: [facility] RN Member Role: Primary Care Nurse Name: Valerie Vela NP Position: Reference Physician Member Role: Primary Care Nurse Address: Address: [address] [place] [address]- [place] Name: Marcia Manning RN Position: [facility] RN Supv Member Role: Primary Care Nurse Name: Carol Ann Torres RN Position: [facility] RN Member Role: Primary Care Nurse Name: Valerie Hernandez RN Position: [facility] SN Rotary Envelope Machine Operator Member Role: Primary Care Nurse Name: Vivi Kaur RN Position: [facility] RN Member Role: Primary Care Nurse Name: Zehra Carrillo RN Position: [facility] RN Member Role: Primary Care Nurse Name: Fabby West RN Position: [facility] RN Member Role: Primary Care Nurse Name: Scott Oviedo Position: [facility] RN Member Role: Primary Care Nurse Name: Mook Marinelli RN Position: [facility] RN Member Role: Primary Care Nurse Name: Annalisa Bhakta RN Position: [facility] RN Member Role: Primary Care Nurse Name: Pooja Newby RN Position: [facility] Hospital Real Estate Rep Member Role: Primary Care Nurse Name: Tessie Jason RN Position: [facility] RN Member Role: Primary Care Nurse Name: Wander Ferraro RN Position: [facility] RN Member Role: Primary Care Nurse Name: Chandan Patiño Position: [facility] Outreach Member Role: Lifetime Consulting Physician Name: Chetan Mullen RN Position: [facility] ED RN W/OE and Tasks Member Role: Primary Care Nurse Name: Bhavna Augustin RN Position: [facility] Onco RN Member Role: Primary Care Nurse Care Team Related Persons Name: ROBRET HERNÁNDEZ Address: [address] [place] [address] Name: KAREN SHANNON Address: [address] [place] [address] Name: MARTHA SHANNON Address: [address] [place] [address] Name: MARCELINO MALCOLM Address: [address] [place] [address]
--- OUTSIDE RECORDS SUMMARY | 2024-08-17 23:44 | XMS_ITS | Continuity of Care Document ---
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, chemicals Persistent Severe Active Apples mouth tingles [...] 0 Refills, Maintenance, 01/21/22 7:25:00 EDT, Tablet, [facility], Partial fill upon patient [...] Safety Implantable Status Assigning Authority Unknown Unknown [id number] Unknown 08/12/21 Unknown Unknown Active Un known Patient Care team information Care Team Personnel Name: Cassius Strong MD Position: Reference Physician Member Role: PCP Address: Address: [address] [place] [address]- Name: Meli Avila RN Position: [facility] RN Member Role: Primary Care Nurse Name: Leela Aguirre RN Position: [facility] RN Member Role: Primary Care Nurse Name: Elvira Maldonado RN Position: [facility] RN Member Role: Primary Care Nurse Name: Valerie Vela NP Position: Reference Physician Member Role: Primary Care Nurse Address: Address: [address] [place] [address] [address] [place] [address]- [place] Name: Marcia Manning RN Position: [facility] RN Supv Member Role: Primary Care Nurse Name: Carol Ann Torres RN Position: [facility] RN Member Role: Primary Care Nurse Name: Valerie Hernandez RN Position: [facility] SN Medical Office Secretary Member Role: Primary Care Nurse Name: Vivi Kaur RN Position: [facility] RN Member Role: Primary Care Nurse Name: Zehra Carrillo RN Position: [facility] RN Member Role: Primary Care Nurse Name: Scott Oviedo Position: [facility] RN Member Role: Primary Care Nurse Name: Mook Marinelli RN Position: [facility] RN Member Role: Primary Care Nurse Name: Annalisa Bhakta RN Position: [facility] RN Member Role: Primary Care Nurse Name: Pooja Newby RN Position: [facility] Hospital Dough Catcher Member Role: Primary Care Nurse Name: Stefania Polk RN Position: [facility] RN Member Role: Primary Care Nurse Name: Tessie Jason RN Position: [facility] RN Member Role: Primary Care Nurse Name: Wander Ferraro RN Position: [facility] RN Member Role: Primary Care Nurse Name: Chandan Patiño Position: [facility] Outreach Member Role: Lifetime Consulting Physician Name: Chetan Mullen RN Position: [facility] ED RN W/OE and Tasks Member Role: Primary Care Nurse Name: Bhavna Augustin RN Position: [facility] RN Member Role: Primary Care Nurse Care Team Related Persons Name: ROBERT HERNÁNDEZ Address: [address] [place] [address] Name: KAREN SHANNON Address: [address] [place] [address] Name: MARTHA SHANNON Address: home [address] [place] [address] Name: MARCELINO MALCOLM Address: [address] [place] [address]
--- OUTSIDE RECORDS SUMMARY | 2024-08-17 23:44 | XMS_ITS | Continuity of Care Document ---
Author Organization [facility] ter Address [address] [place] [address]- Care Team Providers Care Client Service Administrator Name Role Phone Cassius Strong MD Primary Care Physician [place] [facility] [place](s[place] 11/15/23 - 01/07/[address] [address]- Attending Physician: Bebe Latif MD Admitting Physician: Bebe Latif MD Allergies, Adverse Reactions, Alerts Substance Reaction [...] Other Environmental Allergy 3, 4 perfume, plants, topographic computator, chemicals Persistent Severe Active Apples mouth tingles [...] Refills, Maintenance, 01/21/22 7:25:00 EDT, Tablet, [facility], Partial fill upon patient request [...] Procedure Date Device Type Site Fusion/Arthrodesis First Metatarsophalaroosevelt Rnicon MD, Chetan Echevarria 01/11/19 Unknown Foot Right Device Identifier Serial Number Lot or Batch Number Manufacturing Date Expiration Date Distinct Identification Code MRI Safety Implantable Status Assigning Authority Unknown Unknown [id number] Unknown 08/12/21 Unknown Unknown Active Un known Patient Care team information Care Team Personnel Name: Tae RANDOLPH, Cassius Mtz Position: Reference Physician Member Role: PCP Address: Address: [address] [place] [address] [place] [address]- [place] Name: Leela Aguirre RN Position: [facility] RN Member Role: Primary Care Nurse Name: Elvira Maldonado RN Position: [facility] RN Member Role: Primary Care Nurse Name: Valerie Vela NP Position: Reference Physician Member Role: Primary Care Nurse Address: Address: [address] [place] [address]- [place] Name: Carol Ann Torres RN Position: [facility] RN Member Role: Primary Care Nurse Name: Bhavna Vazquez RN Position: [facility] Onco RN Member Role: Primary Care Nurse Name: Valerie Hernandez RN Position: [facility] SN Pattern Stamper Member Role: Primary Care Nurse Name: Vivi Kaur RN Position: [facility] SN RN Member Role: Primary Care Nurse Name: Zehra Carrillo RN Position: [facility] RN Member Role: Primary Care Nurse Name: Scott Oviedo Position: [facility] RN Member Role: Primary Care Nurse Name: Mook Marinelli RN Position: [facility] RN Member Role: Primary Care Nurse Name: Pooja Newby RN Position: [facility] Hospital Licensed Funeral Director And Embalmer Member Role: Primary Care Nurse Name: Stefania Polk RN Position: [facility] SN RN Member Role: Primary Care Nurse Name: Tessie Jason RN Position: [facility] RN Member Role: Primary Care Nurse Name: Wander Ferraro RN Position: [facility] RN Member Role: Primary Care Nurse Name: Chandan Patiño Position: [facility] Outreach Member Role: Lifetime Consulting Physician Name: Chetan Mullen RN Position: [facility] ED RN W/OE and Tasks Member Role: Primary Care Nurse Care Team Related Persons Name: ROBERT HERNÁNDEZ Address: [address] [place] [address] Name: KAREN SHANNON Address: [address] [place] [address] Name: MARTHA SHANNON Address: [address] [place] [address] Name: MARCELINO MALCOLM Address: [address] [place] [address]
--- OUTSIDE RECORDS SUMMARY | 2024-08-17 23:44 | XMS_ITS | Continuity of Care Document ---
Author Organization [facility] ter Address [address] [place] [address]- Care Team Providers Care Forepart Reducer Name Role Phone Cassius Strong MD Primary Care Physician [phone] En[place] [facility] [place] Date(s): 08/22/22 - 11/23/[address] [address] Attending Physician: Salty Welch DO Admitting Physician: [...] Other Environmental Allergy 3, 4 perfume, plants, social services coordinator, chemicals Persistent Severe Active Apples mouth tingles [...] 0 Refills, Maintenance, 01/21/22 7:25:00 EDT, Tablet, [facility], Partial fill upon patient [...] Procedure Date Device Type Site Fusion/Arthrodesis First MetatarsophChetan Murphy MD 01/11/19 Unknown Foot Right Device Identifier Serial Number Lot or Batch Number Manufacturing Date Expiration Date Distinct Identification Code MRI Safety Implantable Status Assigning Authority Unknown Unknown [id number] Unknown 08/12/21 Unknown Unknown Active Un known Patient Care team information Care Team Personnel Name: Cassius Strong MD Position: Reference Physician Member Role: PCP Address: Address: [address] [place] [address]- Name: Meli Avila RN Position: S RN Member Role: Primary Care Nurse Name: Leela Aguirre RN Position: S RN Member Role: Primary Care Nurse Name: Elvira Maldonado RN Position: S RN Member Role: Primary Care Nurse Name: Valerie Vela NP Position: Reference Physician Member Role: Primary Care Nurse Address: Address: [address] [place] [address]- [place] Name: Marcia Manning RN Position: [facility] RN Supv Member Role: Primary Care Nurse Name: Carol Ann Torres RN Position: S RN Member Role: Primary Care Nurse Name: Valerie Hernandez RN Position: [facility] SN Heater Operator Member Role: Primary Care Nurse Name: Vivi Kaur RN Position: [facility] RN Member Role: Primary Care Nurse Name: Zehra Carrillo RN Position: [facility] RN Member Role: Primary Care Nurse Name: Scott Oviedo Position: [facility] RN Member Role: Primary Care Nurse Name: Mook Marinelli RN Position: [facility] RN Member Role: Primary Care Nurse Name: Annalisa Bhakta RN Position: [facility] RN Member Role: Primary Care Nurse Name: Pooja Newby RN Position: [facility] Hospital Fire Hose Curer Member Role: Primary Care Nurse Name: Stefania Polk RN Position: [facility] RN Member Role: Primary Care Nurse Name: Tessie Jason RN Position: [facility] RN Member Role: Primary Care Nurse Name: Wander Ferraro RN Position: [facility] RN Member Role: Primary Care Nurse Name: Chandan Patiño Position: [facility] Outreach Member Role: Lifetime Consulting Physician Name: Chetan Mullen RN Position: [facility] ED RN W/OE and Tasks Member Role: Primary Care Nurse Name: Bhavna Augustin RN Position: [facility] RN Member Role: Primary Care Nurse Care Team Related Persons Name: ROBERT HERNÁNDEZ Address: [address] [place] [address] Name: KAREN SHANNON Address: [address] [place] [address] Name: MARTHA SHANNON Address: [address] [place] [address] Name: MARCELINO MALCOLM Address: [address] [place] [address]
--- OUTSIDE RECORDS SUMMARY | 2024-08-17 23:44 | XMS_ITS | Continuity of Care Document ---
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
--- OUTSIDE RECORDS SUMMARY | 2024-08-17 23:44 | XMS_ITS | Continuity of Care Document ---
Author Organization [facility] ter Address [address] [address]- Care Team Providers Care Crossing Guard Name Role Phone Cassius Strong MD Primary Care Physician [place] [facility] [place] 10/25/21 - 11/30/[address] [address] Attending Physician: Salty Welch DO Admitting [...] Other Environmental Allergy 3, 4 perfume, plants, director camp, chemicals Persistent Severe Active Apples mouth tingles [...] INJ AUGMENT BONE GRAFT 1.5ML - WRGT ([id number]) 1 [employer] Unknown THOMPSON:No Information Assigning Authority: FDA
--- OUTSIDE RECORDS SUMMARY | 2024-08-17 23:44 | XMS_ITS | Continuity of Care Document ---
Author Organization [facility] ter Address [address] [place] [address]- Care Team Providers Care Edge Beader Name Role Phone Cassius Strong MD Primary Care Physician Encounter [facility] [place] Date(s): 01/21/22 - 01/21/[address] [address] Discharge Disposition: A-D/C Home Attending Physician: Kasandra Alberts MD Admitting Physician: Kasandra Alberts MD Referring Physician: Kasandra Alberts MD Allergies, Adverse Reactions, [...] Other Environmental Allergy 3, 4 perfume, plants, freight representative, chemicals Persistent Severe Active Apples mouth tingles [...] 02/05/22 7:25:00 EDT, 01/21/22 7:25:00 EDT, Tablet, [facility], Partial fill upon patient request if the prescription is for a schedul... Start Date: 01/21/22 Stop Date: 02/05/22 Status: Ordered aspirin 325 mg oral delayed release tablet 325 mg, 1, tablet, By Mouth, Daily, # 30 tablet, Refills 0, Tot. Refills 0, Maintenance, 01/21/22 7:24:00 EDT, Route to Pharmacy Electronically, [facility], Partial fill upon patient request if [...] EC Capsule Start Date: 04/25/17 Status: Ordered oxyCODONE 5 mg oral tablet 5 mg, 1, tablet, By Mouth, Every 4 hours, PRN, for 3 days, # 18 tablet, Refills 0, Tot. Refills 0, Acute 01/24/22 7:25:00 EDT, as needed for pain, 01/21/22 7:25:00 EDT, Route to Pharmacy Electronically, [facility], Partial fill upon annika... Start Date: 01/21/22 Stop Date: 01/24/22 Status: Ordered Spiriva Respimat 28 inhalation aerosol [...] 0 Refills, Maintenance, 01/21/22 7:25:00 EDT, Tablet, [facility], Partial fill upon patient [...] II diabetes mellitus, w ell controlled(Confirmed) Active Vital Signs Most recent to oldest [Reference Range]: 1 2 3 Height 162 cm (01/21/22:22 AM) 162 cm (01/19/22 3:55 PM) Weight 104 kg (01/21/22:22 AM) 97.55 kg (01/19/22 3:55 PM) Oxygen Saturation [94-100 %] 94 % (01/21/22 9:30 AM) 95 % (01/21/22 9:15 AM) 93 % *L* (01/21/22 9:00 AM) Pulse Rate [55-90 bpm] 62 bpm (01/21/22:22 AM) Body Mass Index [18.5-24.99] 39.63 *>HHI* (01/21/22:22 AM) 37.17 *>HHI* (01/19/22 3:55 PM) Blood Pressure [90-138/55-84 mm Hg] 146/81mm Hg *H* (01/21/22 9:30 AM) 148/79mm Hg *H* (01/21/22 9:15 AM) 149/95mm Hg *H* (01/21/22 9:00 AM) Respiratory Rate [16-30 br/min] 17 br/min (01/21/22 9:30 AM) 17 br/min (01/21/22 9:15 AM) 16 br/min (01/21/22 9:00 AM) Temperature [96.8-100.4 DegF] 97.9 DegF (01/21/22 9:15 AM) 97.4 DegF (01/21/22 8:15 AM) 97.7 DegF (01/21/22:22 AM) Liters per Minute 6 L/min (01/21/22 8:45 AM) 6 L/min (01/21/22 8:30 AM) 6 L/min (01/21/22 8:15 AM) Mode of Delivery (Oxygen) Room air (01/21/22 10:45 AM) Room air (01/21/22 9:30 AM) Room air (01/21/22 9:15 AM) Blood pressure sites Arm, right (01/21/22 9:30 AM) Arm, right (01/21/22 9:15 AM) Arm, right (01/21/22 9:00 AM) Temperature Route Temporal (01/21/22 9:15 AM) Temporal (01/21/22 8:15 AM) Temporal (01/21/22 6:22 AM) Dry Weight 104 kg (01/21/22 6:22 AM) 97.55 kg (01/19/22 3:55 PM) Dry Weight Obtained Via Patient/family s tated (01/19/22 3:55 PM) Social History Social History Type Response Smoking Status Never smoker entered on: 08/28/14 Sex Medical Equipment Implanted Date:01/11/19Target Site:Foot Right Description Quantity MRI Company Model INJ AUGMENT BONE GRAFT 1.5ML - WRGT ([id number]) 1 [employer] Unknown THOMPSON:No Information Assigning Authority: FDA
--- OUTSIDE RECORDS SUMMARY | 2024-08-17 23:44 | XMS_ITS | Continuity of Care Document ---
Author Organization [facility] Address [address] [place] [address]- Care Team Providers Care Student Recruiter Name Role Phone Cassius Strong MD Primary Care Physician [phone] Encounter [facility] [place] [facility] R [id number] Date(s): 07/20/22 - 08/19/22 [facility] [address] [place], [place] [address] Attending Physician: Derrell Toribio Admitting Physician: Derrell [...] Other Environmental Allergy 3, 4 perfume, plants, direct marketing representative, chemicals Persistent Severe Active Apples mouth [...] 0 Refills, Maintenance, 01/21/22 7:25:00 EDT, Tablet, [facility], Partial fill upon patient [...] Safety Implantable Status Assigning Authority Unknown Unknown [id number] Unknown 08/12/21 Unknown Unknown Active Un known Patient Care team information Personnel Name: Cassius Strong MD Address: Address: [address] [place] [address] [address] [place] [address]
--- OUTSIDE RECORDS SUMMARY | 2024-08-17 23:44 | XMS_ITS | Continuity of Care Document ---
Author Organization [facility] Address [address] [place] [address]- Care Team Providers Care Customs Consultant Name Role Phone Cassius Strong MD Primary Care Physician [phone] [place] [facility] [place] [id number] Date(s): 06/18/21 - 07/18/21 [facility] [address] [place] [address]- Attending Physician: Derrell Toribio Admitting Physician: Derrell [...] Other Environmental Allergy 3, 4 perfume, plants, elementary reading tutor, chemicals Persistent Severe Active Apples mouth tingles and as thma worsens Persistent Severe Active Celery tingly mouth and asthma worsens Persisten t Severe Active Lactose gas, bloating Persistent Severe Active Oranges asthma worsens Persistent Severe Active TraMADol Hydrochloride rash and lightheadedness Persis tent Severe Active Pineapple dyspnea Persistent Severe Active Strawberries dyspnea Persistent Severe Active 1can take Medrol [...] INJ AUGMENT BONE GRAFT 1.5ML - WRGT ([id number]) 1 [employer] Unknown THOMPSON:No Information Assigning Authority: FDA
--- OUTSIDE RECORDS SUMMARY | 2024-08-17 23:44 | XMS_ITS | Continuity of Care Document ---
Author Organization [facility] Address [address] [place] [address]- Care Team Providers Care Machine Attendant Name Role Phone Cassius Strong MD Primary Care Physician [phone] Encounter [facility] [place] Date(s): 03/22/21 - 07/04/21 [facility] [address] [place] [address]- Attending Physician: Janna Israel MD Admitting Physician: Janna Israel MD Referring Physician: Cassius Strong MD Allergies, Adverse Reactions, Alerts Substance Reaction Severity Status codeine rash Persistent Severe Active cephalexin abdominal pain and headaches Active morphine dizziness,rash Persistent Severe Active Glutens gi upset, diarrhea w ith bloating Persistent Severe Active predniSONE 1 rash, asthma worsens Persistent Severe Ac tive Flexeril rash, disoriented Persistent Severe Activ e Levaquin 2 chest pain rash Persistent Severe Active Vicodin bad headache and loss of vision Persisten t Severe Active Latex rash with asthma worsening Persistent Sev ere Active Strawberries dyspnea Persistent Severe Active Other Food Allergy raw carrots Persistent Severe Acti ve Celery tingly mouth and asthma worsens Persisten t Severe Active Lactose gas, bloating Persistent Severe Active Other Environmental Allergy 3, 4 perfume, plants, chicken raiser, chemicals Persistent Severe Active Apples mouth tingles and as thma worsens Persistent Severe Active Oranges asthma worsens Persistent [...] INJ AUGMENT BONE GRAFT 1.5ML - WRGT ([id number]) 1 Status4 Unknown THOMPSON:No Information Assigning Authority: FDA
--- OUTSIDE RECORDS SUMMARY | 2024-08-17 23:44 | XMS_ITS | Continuity of Care Document ---
Author Organization [facility] Address [address] [place] [id number]- Care Team Providers Care Pipeliner Name Role Phone Cassius Strong MD Primary Care Physician Encounter [facility] [place] Date(s[place] 12/25/23 - 01/01/24 [facility] [address] [place] [address]- Attending Physician: Stefano Negron MD Admitting Physician: Stefano Negron MD Referring Physician: Nereida Delarosa MD Allergies, Adverse Reactions, Alerts Substance Reaction [...] Other Environmental Allergy 3, 4 perfume, plants, event sales manager, chemicals Persistent Severe Active Apples mouth tingles [...] 0 Refills, Maintenance, 01/21/22 7:25:00 EDT, Tablet, [facility], Partial fill upon patient request [...] II diabetes mellitus, well controlled Confirmed Active Vital Signs Most recent to oldest [Reference Range]: 1 Height 163 cm (12/25/23 2:45 PM) Weight 95.90 kg (12/25/23 2:45 PM) Oxygen Saturation [94-100 %] 96 % (12/25/23 2:45 PM) Body Mass Index [18.5-24.99 kg/m2] 36.09 kg/m2 *>HHI* (12/25/23 2:45 PM) Blood Pressure [90-138/55-84 mm Hg] 136/ 72mm Hg (12/25/23 2:45 PM) Mode of Delivery (Oxygen) Room air (12/25/23 2:45 PM) Blood pressure sites Arm, right (12/25/23 2:45 PM) Weight Obtained Via Patient/family state d (12/25/23 2:45 PM) Social History Social History Type Response Smoking Status Never smoker entered on: 08/28/14 Sex Implantable Device List Procedure Provider Procedure Date Device Type Site Fusion/Arthrodesis First Metatarsmode Rincon MD, Chetan Echevarria 01/11/19 Unknown Foot Right Device Identifier Serial Number Lot or Batch Number Manufacturing Date Expiration Date Distinct Identification Code MRI Safety Implantable Status Assigning Authority Unknown Unknown [id number] Unknown 08/12/21 Unknown Unknown Active Un known Patient Care team information Care Team Personnel Name: Cassius Strong MD Position: Reference Physician Member Role: PCP Address: Address: [address] [place] [address] [address] [place] [address]- [place] Name: Leela Aguirre RN Position: [facility] RN Member Role: Primary Care Nurse Name: Elvira Maldonado RN Position: [facility] RN Member Role: Primary Care Nurse Name: Valerie Vela NP Position: Reference Physician Member Role: Primary Care Nurse Address: Address: [address] [place] [id number]- Name: Carol Ann Torres RN Position: [facility] RN Member Role: Primary Care Nurse Name: Bhavna Vazquez RN Position: [facility] Onco RN Member Role: Primary Care Nurse Name: Valerie Hernandez RN Position: [facility] SN Appeals Assistant Member Role: Primary Care Nurse Name: Vivi Kaur RN Position: [facility] SN RN Member Role: Primary Care Nurse Name: Zehra Carrillo RN Position: [facility] RN Member Role: Primary Care Nurse Name: Scott Oviedo Position: [facility] RN Member Role: Primary Care Nurse Name: Mook Marinelli RN Position: [facility] RN Member Role: Primary Care Nurse Name: Pooja Newby RN Position: [facility] Tool Trouble Shooter Member Role: Primary Care Nurse Name: Stefania Polk RN Position: [facility] SN RN Member Role: Primary Care Nurse Name: Tessie Jason RN Position: [facility] RN Member Role: Primary Care Nurse Name: Wander Ferraro RN Position: [facility] RN Member Role: Primary Care Nurse Name: Chandan Patiño Position: [facility] Outreach Member Role: Lifetime Consulting Physician Name: Chetan Mullen RN Position: [facility] ED RN W/OE and Tasks Member Role: Primary Care Nurse Care Team Related Persons Name: ROBERT HERNÁNDEZ Address: home [address] [place] [address] Name: KAREN SHANNON Address: home [address] [place] [address] Name: MARTHA SHANNON Address: home [address] [place] [address] Name: MARCELINO MALCOLM Address: home [address] [place] [address]
--- OUTSIDE RECORDS SUMMARY | 2024-08-17 23:44 | XMS_ITS | Continuity of Care Document ---
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
--- OUTSIDE RECORDS SUMMARY | 2024-08-17 23:44 | XMS_ITS | Continuity of Care Document ---
Author Organization [facility] Address [address] [place] [address]- Care Team Providers Care Solution Analyst Name Role Phone Cassius Strong MD Primary Care Physician Encounter [facility] [place] Date(s): 02/10/20 - 03/11/20 [facility] [address] [place] [address] [facility] Attending Physician: Derrell Toribio Admitting Physician: Derrell [...] Other Environmental Allergy 3, 4 perfume, plants, adapted physical education specialist, chemicals Persistent Severe Active Apples mouth [...] Maintenance, 04/16/17 13:32:26, Route to Pharmacy Electronically, [id number], [facility] [id number] Start Date: 04/16/17 Status: Ordered atorvastatin 40 [...] Maintenance, 06/25/1912:47:54 EDT, Route to Pharmacy Electronically, [id number], [id number] Start Date: 06/25/19 Stop Date: 10/23/19 Status: [...] Refills, Maintenance, 04/16/17 13:32:23, Tablet Start Date: 7/2/17 Status: Ordered NuLYTELY with Flavor Packs oral [...] INJ AUGMENT BONE GRAFT 1.5ML - WRGT ([id number]) 1 [employer] Unknown THOMPSON:No Information Assigning Authority: FDA
[2024-08-17] MEDS: Acetaminophen 325 MG TABLET 975 MG PO (23:57)
[2024-08-17] MEDS: 0.9 % Sodium Chloride 2,857.62 ML 2857.62 ML IV (23:58)
[2024-08-17] MEDS: vancomycin/NS 2,000 MG/500 ML PLAST..BAG 250 MG IV (23:58)
[2024-08-18] VITALS (7 sets, daily range): BP systolic 101–158; BP diastolic 47–80; PULSE 77–106; RESP 16–20; TEMP 36.2–38.1; O2SAT 94–97
--- NOTE | 2024-08-18 00:18 | PC.NURSE ---
pt reports she uses 2L NC for sleep.
[2024-08-18] MEDS: ondansetron HCL 4 MG/2 ML VIAL IVPUSH ×3 (01:02→17:38)
--- NOTE | 2024-08-18 01:05 | PC.NURSE ---
pt c/o itchiness to torso and armpits. no rash noted at this time. MD donald
[2024-08-18] MEDS: diphenhydrAMINE HCL 50 MG/ML VIAL IVPUSH (01:26)
[2024-08-18] MEDS: HYDROmorphone HCl 1 MG/ML SYRINGE IVPUSH ×5 (01:48→21:15)
--- NOTE | 2024-08-18 01:56 | PC.NURSE ---
sepsis fluid still infusing
--- NOTE | 2024-08-18 02:48 | PC.NURSE ---
pt continues to bend arm while resting in bed. fluids infusing slowly
--- NOTE | 2024-08-18 04:19 | PC.NURSE ---
U/S IV to RAC stopped working, 2nd U/S IV placed to upper R arm, fluids infusing
[2024-08-18] MEDS: Piperacillin Sodium/Tazobactam 3.375 GM in 0.9 % Sodium Chloride 50 ML IV ×4 (05:16→23:08)
[2024-08-18] MEDS: HYDROmorphone HCl 2 MG TABLET PO ×2 (05:16→15:27)
[2024-08-18 05:22] LABS: Anion Gap 18 (12-20); Blood Urea Nitrogen 15 mg/dL (9-16); Calcium 8.6 mg/dL (8.4-10.2); Carbon Dioxide 18 mmol/L (22-29); Chloride 104 mmol/L (96-108); Creatinine Clr Calc Pharmacy 78.2; Estimated Glomerular Filt Rate > 60; Glucose Random 216 mg/dL (60-115); Potassium 4.9 mmol/L (3.3-5.1); Sodium 135 mmol/L (135-145)
--- NOTE | 2024-08-18 05:55 | PC.NURSE ---
prn zofran for nausea, okayed early admin
--- NOTE | 2024-08-18 06:19 | PC.NURSE ---
2nd IV infiltatred, 3rd IV line placed to L upper arm. 20g U/S
[2024-08-18 06:45] LABS: Basophils Percent Auto 0.1 % (0-2); Eosinophils Percent Auto 0.1 % (0-4); Hemoglobin 11.4 g/dl (12.0-16.0); Imm Gran Abs Auto 0.13 X10*3/uL (0.00-0.03); Imm Gran Pct Auto 0.7 % (0.0-0.4); Lymphocytes Absolute Auto 2.1 X10*3/uL (1.2-4.9); Lymphocytes Percent Auto 10.8 % (20-40); MANUAL DIFF FLAG SCAN; Mean Corpuscular HGB Conc 34.5 g/dl (31.0-35.0); Mean Corpuscular Hemoglobin 28.6 pg (27.0-33.0); Mean Corpuscular Volume 82.9 fL (80.0-98.0); Mean Platelet Volume 10.6 fL (9.4-12.3); Monocytes Absolute Auto 1.9 X10*3/uL (0.1-1.2); Monocytes Percent Auto 9.9 % (2-11); Neutrophils Absolute Auto 14.9 x10*3/uL (2.0-8.3); Neutrophils Percent Auto 78.4 % (45-73); Platelet Count 109 X10*3/uL (160-400); Red Blood Count 3.98 X10*6/uL (4.20-5.50); Red Cell Distribution Width 13.9 % (11.0-16.0); SCAN SMEAR FLAG 1
[2024-08-18 06:53] LABS: INTERNATIONAL NORM RATIO 1.2 (0.9-1.1); Prothrombin Time 13.8 SEC (10.9-12.4)
[2024-08-18] MEDS: 0.9 % Sodium Chloride Flush 3 ML SYRINGE IVFLUSH ×2 (07:06→15:27)
[2024-08-18 07:17] LABS: SLIDE REVIEW VERIFIED
--- NOTE | 2024-08-18 07:35 | PHA.PROG ---
Admission Date/Time: August 17, 2024 23:29 Indication: skin/tissue Weight in k.254 kg Adjusted body weight in Kg: [place] body weight in K.7 Obesity Dosing Indication % IBW:36.0 Serum Creatinine - Last 168 Hours 08/17/24 08/18/24 21:25 04:47 Creatinine 0.80 0.92 Estimated CrCl and GFR - Last 168 Hours 08/17/24 08/18/24 21:25 04:47 Estim Creat Clear Calc 89.9 78.2 Estimated GFR > 60 > 60 Vancomycin Loading Dose: 2000 Current Vancomycin Dosing Regimen:1000 MG Q12 Vancomycin Monitoring using AUC goal of 400 - 600 range with trough as surrogate marker:490/15.9 Date and Time for next Vancomycin Level to be drawn:08/19 @0900 Pharmacist Comments on Vancomycin Plan: Vancomycin dosing will take advantage of [employer] as a clinical decision support tool that uses Bayesian modeling to calculate individual patient's pharmacokinetic parameters and forecast the patient's drug concentration time course with the target goal AUC 24 range of 400 - 600 mg/L/hr.
[2024-08-18 07:38] LABS: Glucose, Whole Blood 196 mg/dL (60-115)
--- NOTE | 2024-08-18 07:38 | PC.NURSE ---
Alert and oriented, remains NPO aware that plan is for finger to be drained. VSS, insulin held as BS was 196 and patient is NPO. Report given to overchao RN
--- NOTE | 2024-08-18 10:33 | PM.CNOR ---
History of Present Illness HPI Consult date: 08/18/24 Chief complaint: Left Index Finger Tenosynovitis Narrative: Deysi Armendariz is a 53 years old woman with past medical history significant for type 2 diabetes mellitus, asthma, hyperlipidemia, liver cirrhosis likely due BENEDICT with portal hypertension/gastropathy/esophageal varices, essential hypertension, Brugada syndrome and hypothyroidism. She was admitted to the medical service for left hand infection. She c/o worsening left index finger swelling and pain. She states she is s/p left hand with Dr. Flynn for tendon repair in 2017. She states she developed a cyst to this finger in January of this year and Dr lipscomb took her to the OR for a wash out and was told gelly like substance was found. She states Dr Lipscomb was going to take her to the OR for another wash out of the flexor tendon sheath, but she was to see ID first, and her appt is not until the middle of August. While waiting for these procedures, she claims her symptoms got significantly worse which prompted her ED visit. In the ED, she was found to have fever of 101.5 and tachycardia. Blood workup is remarkable for leukocytosis of 16.2. There is no lactic acidosis. Left hand x-ray showed interval resection only with the majority of the trapezium with corticated osseous fragment in the surgical bed and degenerative changes more prominent at the 3rd metacarpophalangeal joint. ED tx: Vancomycin 1.5 g IV, Zosyn 3.375 g IV, Zanaflex 2 mg p.o., Dilaudid 2 mg IV, Zofran 4 mg IV Review of Systems Review of Systems: Yes all other systems are reviewed and are negative [facility] Past Medical History Medical History Anemia Chronic restrictive lung disease Brugada syndrome Shortness of breath Encounter for care related to Port-a-Cath Tinea pedis Recurrent cellulitis of lower extremity CHARLES (obstructive sleep apnea) Hypogammaglobulinemia Cellulitis of both lower extremities Right hip pain Lumbar degenerative disc disease Benign essential hypertension Obesity (BMI 30-39.9) Mitochondrial myopathy Asthma Diabetes mellitus History of revision of total replacement of right hip joint (~12/2019) Acquired hypothyroidism Pain of both hip joints Pure hypercholesterolemia Hx of cataract HTN (hypertension) Osteopenia Hypothyroidism Osteoarthritis of hip Gastritis Family History Family History Father Leukemia Mother Hypertension Diabetes Sister Alive and well Brother Pancreatic cancer Paternal Grandmother Stomach cancer Paternal Grandmother Throat cancer Surgical History Surgical History History of removal of Port-a-Cath History of total right hip arthroplasty (~06/03/19) History of eye surgery (~09/2017) History of hip surgery Hx of foot surgery (~01/02/19) History of removal of cyst Hx of left knee surgery History of elbow surgery (~07/2016) Hx of thumb surgery Hx of appendectomy Hx of hysterectomy (~07/2011) Hx of bilateral breast reduction surgery Social History Social History Household Members: Family and Children Housing: Apartment Do you presently have visiting nurse or other home services: No Alcohol intake: former Comment: refused bed alarm Patient Tobacco Use Status: Never used Tobacco Smoked in Last 30 Days: No e-Cigarette/Vaping Use: Never Used Second Hand Smoke Exposure: No Use of substances other than those prescribed or required for medical reasons: No Advance Directives: Yes Advance Directives on File: Yes Advance Directives Date on File: 10/02/23 Do you have a plan to hurt others: No Plan Nutrition Risks: No Nutritional Risk Patient : No service: No Current occupational status: disabled Cognitive needs: No Hearing needs: No Vision needs: No Meds Allergies Allergy/AdvReac Type Severity Reaction Status Date / Time cephalexin Allergy Severe Difficulty Verified 08/01/24 11:44 Breathing latex [LATEX] Allergy Severe Difficulty Verified 08/17/24 20:53 Breathing levofloxacin [From LEVAQUIN] Allergy Severe SHORTNESS Verified 08/17/24 20:53 OF BREATH, RASH, rash morphine [MORPHINE] Allergy Severe RASH, Verified 08/17/24 20:53 asthma exacerbation, rash baclofen [BACLOFEN] Allergy Intermediate Rash Verified 08/17/24 20:53 celecoxib [Celebrex] Allergy Intermediate itching, Verified 08/17/24 20:53 rash, flushing prednisone [PREDNISONE] Allergy Intermediate RASH, Verified 08/17/24 20:53 asthma exacerbation, rash codeine Allergy Unknown Rash Verified 08/17/24 20:53 gluten [GLUTEN] Allergy Unknown UNKNOWN Verified 08/17/24 20:53 oxycodone Allergy Unknown rash Verified 08/17/24 20:53 ranitidine Allergy Unknown unknown Verified 08/17/24 20:53 roflumilast [Daliresp] Allergy Unknown rash Verified 08/17/24 20:53 tramadol [TRAMADOL] Allergy Unknown RASH,SHORTNESS Verified 08/17/24 20:53 OF BREATH AND HEADACHE, asthma exacerbation, rash celery Allergy Rash Verified 08/17/24 20:53 cyclobenzaprine Allergy Rash and Verified 08/17/24 20:53 [From Flexeril] asthma exacerbation environmental allergies Allergy Cleaning Verified 08/17/24 20:53 products cause asthma attack pineapple Allergy Rash Verified 08/17/24 20:53 strawberry Allergy Rash Verified 08/17/24 20:53 sulfamethoxazole AdvReac Intermediate vertigo Verified 08/17/24 20:53 [From Bactrim] trimethoprim [From Bactrim] AdvReac Intermediate vertigo Verified 08/17/24 20:53 diazepam [From Valium] AdvReac Cough Verified 08/17/24 20:53 Active Medications: Current Medications Acetaminophen (Acetaminophen 325 Mg Tablet) 975 mg PO Q6H PRN PRN Reason: Pain, Mild (Pain Scale 1-3), fever or headache Last Admin: 08/17/24 23:57 Dose: 975 mg Glucose (Glucose Gel 15 Gm Gel..Gram.) 15 gm PO Q15M PRN; Protocol PRN Reason: per Hypoglycemia Standing Ord. Hydromorphone HCl (Hydromorphone Hcl 1 Mg/Ml Syringe) 1 mg IVPUSH Q3H PRN; Protocol PRN Reason: Pain, Severe (Pain Scale 7-10) Last Admin: 08/18/24 10:27 Dose: 1 mg Hydromorphone HCl (Hydromorphone Hcl 2 Mg Tablet) 2 mg PO Q4H PRN PRN Reason: Pain, Severe (Pain Scale 7-10) Last Admin: 08/18/24 05:16 Dose: 2 mg Piperacillin Sod/Tazobactam (Sod 3.375 gm/ Sodium Chloride) 50 mls @ 100 mls/hr IV Q6H FLORECITA Last Admin: 08/18/24 10:30 Dose: 100 mls/hr Dextrose (D10) 250 mls @ 750 mls/hr IV Q15M PRN; Protocol PRN Reason: per Hypoglycemia Standing Ord. Vancomycin HCl 1,000 mg/ (Sodium Chloride) 270 mls @ 270 mls/hr IV Q12H [facility] Insulin Human Lispro (Insulin Lispro 100 Unit/Ml 3 Ml Vial) 0 unit SUBCUT QIDACHS [facility]; Protocol Last Admin: 08/18/24 07:38 Dose: Not Given Ondansetron HCl (Ondansetron Hcl 4 Mg/2 Ml Vial) 4 mg IVPUSH Q6H PRN PRN Reason: Nausea and Vomiting Last Admin: 08/18/24 05:55 Dose: 4 mg Pharmacy Consult (Consult Rx Vancomycin Dosing) 1 each MISCELLANE DAILY PRN PRN Reason: Consult order Sodium Chloride (0.9 % Sodium Chloride Flush 3 Ml Syringe) [address] [facility] Last Admin: 08/18/24 07:06 Dose: 3 ml Home Medications ?Medication ?Instructions ?Recorded ?Confirmed ?Last Taken ?Type ipratropium bromide 42 mcg (0.06 2 spray intranasal DAILY 03/11/21 08/01/24 11/18/23 History %) nasal spray benralizumab 30 mg/mL subcutaneous 30 mg subcut Q8W 10/06/22 08/01/24 10/04/23 History syringe (Fasenra) nebulizers 03/09/23 08/01/24 Unknown History bismuth subsalicylate 262 mg 2 mg PO DAILY PRN Diarrhea 11/20/23 08/01/24 Unknown History tablet (Pepto-Bismol) carvedilol 6.25 mg tablet 6.25 mg PO DAILY for blood pressure 04/15/24 08/01/24 05/09/24 History epinephrine 0.3 mg/0.3 mL 0.3 mg IM Q5M PRN anaphylaxis 04/15/24 08/01/24 Unknown History injection, auto-injector mometasone 200 mcg/actuation HFA 2 puff inhalation BID 04/15/24 08/01/24 05/09/24 History aerosol inhaler (Asmanex HFA) levothyroxine 112 mcg tablet 224 mcg PO DAILY@0600 08/18/24 Unknown History (Synthroid) omeprazole 40 mg capsule,delayed 40 mg PO DAILY@0630 gastritis 08/18/24 Unknown History release pyridostigmine bromide 60 mg tablet 60 mg PO QID 08/18/24 Unknown History tiotropium bromide 1.25 2 puff inhalation DAILY 08/18/24 Unknown History mcg/actuation mist for inhalation (Spiriva Respimat) Physical Exam Vital Signs: Vital Signs: Last Vital Signs Temp 100.3 F 08/18/24 07:39 Pulse 106 H 08/18/24 07:39 Resp 18 08/18/24 07:39 BP 126/76 08/18/24 07:39 Pulse Ox 97 08/18/24 07:39 O2 Del Method Room Air 08/18/24 07:39 BMI result Body Mass Index 36.0 Const: General: cooperative and no acute distress Orientation/consciousness: patient oriented x3 Resp: Effort & Inspection: normal respiratory effort and able to speak in complete sentences Cardio: Peripheral pulses: Peripheral pulses 2+ throughout Neuro: General: patient oriented x3 Extrem: Other: Left hand swelling over the dorsum of the hand into the index finger. There is swelling that runs along the flexor tendon sheath into the palmar aspect of the hand. She has a puncture along the DIP joint of the left index finger, tenderness to palpation, pain with axial loading. Tenderness along the flexor tendon sheath and into the palmar aspect of the left index finger and left hand. No pain with axial loading of the wrist NVI Results Labs 08/18/24 06:31 08/18/24 04:47 Labs: Abnormal lab results 08/17/24 08/18/24 08/18/24 Range/Units 21:25 04:47 06:31 WBC 16.2 H 19.0 H (4.8-10.8) X10*3/uL RBC 3.98 L (4.20-5.50) X10*6/uL Hgb 11.4 L (12.0-16.0) g/dl Hct 36.7 L 33.0 L (37.0-47.0) % Plt Count 140 L D 109 L (160-400) X10*3/uL Immature Gran % (Auto) 0.7 H (0.0-0.4) % Neut % (Auto) 81.2 H 78.4 H (45-73) % Lymph % (Auto) 11.3 L 10.8 L (20-40) % Cross # (Auto) 1.9 H (0.1-1.2) X10*3/uL Abs Immat Gran (auto) 0.06 H 0.13 H (0.00-0.03) X10*3/uL Absolute Neuts (auto) 13.2 H 14.9 H (2.0-8.3) x10*3/uL PT 13.8 H (10.9-12.4) SEC INR 1.2 H (0.9-1.1) Carbon Dioxide 18 L (22-29) mmol/L POC Glucose (60-115) mg/dL Random Glucose 207 H 216 H (60-115) mg/dL Alkaline Phosphatase 128 H (39-117) U/L 08/18/24 Range/Units 07:34 WBC (4.8-10.8) X10*3/uL RBC (4.20-5.50) X10*6/uL Hgb (12.0-16.0) g/dl Hct (37.0-47.0) % Plt Count (160-400) X10*3/uL Immature Gran % (Auto) (0.0-0.4) % Neut % (Auto) (45-73) % Lymph % (Auto) (20-40) % Cross # (Auto) (0.1-1.2) X10*3/uL Abs Immat Gran (auto) (0.00-0.03) X10*3/uL Absolute Neuts (auto) (2.0-8.3) x10*3/uL PT (10.9-12.4) SEC INR (0.9-1.1) Carbon Dioxide (22-29) mmol/L POC Glucose 196 H (60-115) mg/dL Random Glucose (60-115) mg/dL Alkaline Phosphatase (39-117) U/L H & H 08/17/24 08/18/24 Range/Units 21:25 06:31 Hgb 12.4 11.4 L (12.0-16.0) g/dl Hct 36.7 L 33.0 L (37.0-47.0) % Coagulation 08/18/24 Range/Units 06:31 INR 1.2 H (0.9-1.1) All other labs normal. Assessment and Plan (1) Tenosynovitis of finger: Status: Acute (2) Cellulitis of finger of left hand: Status: Acute Plan Left hand warm water soaks for left index finger Continue IV abx NPO after midnight for potential wash out with Dr Singer 08/19/24 I discussed with the patient need for surgical i&D to help with the infection. I explained the procedure in detail along with the length of recovery and rehab course. I explained the risk, benefits and alternatives. Risk including, but not limited to infection, blood clots, bleeding,injury to nerve/tissue damage to surrounding areas and need for repeat wash out. I answered all their questions and with their understanding they have consented to proceed with left hand irrigation and debridement. NPO after midnight. Procedures Date of Service Date of Service: 08/18/24
[2024-08-18] MEDS: vancomycin HCL 1,000 MG in 0.9 % Sodium Chloride 250 ML 270 MG IV (11:04)
[2024-08-18 11:16] LABS: Glucose, Whole Blood 175 mg/dL (60-115)
[2024-08-18] MEDS: Insulin Lispro 100 UNIT/ML 3 ML VIAL SUBCUT ×3 (11:56→21:15)
--- NOTE | 2024-08-18 12:10 | PHA.MEDREC ---
Pharmacy Consult ? Medication Reconciliation Pharmacy has completed the medication reconciliation. Spoke to pt to confirm meds. Per patient, takes calcium citrate 250 mg BID, Tresiba 8 units daily, hydromorphone 2mg Q8H PRN, Nystatin BID, Omeprazole 40 mg BID, Tizanadine 4 mg bedtime.
--- NOTE | 2024-08-18 15:28 | HO.PM.IMPN ---
Subjective Subjective Date of Service: 08/18/24 Interval History: finger infection Review of Systems finger and amelia are seems swollen similar . Physical Exam Vital Signs: Vital Signs: Last Vital Signs Temp 98.9 F 08/18/24 15:26 Pulse 89 08/18/24 15:26 Resp 16 08/18/24 15:26 BP 158/79 H 08/18/24 15:26 Pulse Ox 96 08/18/24 15:26 O2 Del Method Room Air 08/18/24 15:26 BMI result Body Mass Index 36.0 Appearance: Alert.? Oriented X3. cvs: rrr, [id number] , no murmur res: clear to auscultation ,no rhonchii or wheezing abd: no rebound or guarding ,nt, bs present. ext pulses present , no cyanosis . hand:Left hand swelling over the dorsum of the hand into the index finger Tenderness along the flexor tendon sheath and into the palmar aspect of the left index finger and left hand. neuro: axo3 , nonfocal. Objective Data Active Medications Acetaminophen (Acetaminophen 325 Mg Tablet) 975 mg PO Q6H PRN PRN Reason: Pain, Mild (Pain Scale 1-3), fever or headache Last Admin: 08/17/24 23:57 Dose: 975 mg Documented By: MEHDI Glucose (Glucose Gel 15 Gm Gel..Gram.) 15 gm PO Q15M PRN; Protocol PRN Reason: per Hypoglycemia Standing Ord. Hydromorphone HCl (Hydromorphone Hcl 1 Mg/Ml Syringe) 1 mg IVPUSH Q3H PRN; Protocol PRN Reason: Pain, Severe (Pain Scale 7-10) Last Admin: 08/18/24 10:27 Dose: 1 mg Documented By: DEEPIKA Hydromorphone HCl (Hydromorphone Hcl 2 Mg Tablet) 2 mg PO Q4H PRN PRN Reason: Pain, Severe (Pain Scale 7-10) Last Admin: 08/18/24 05:16 Dose: 2 mg Documented By: MEHDI Piperacillin Sod/Tazobactam (Sod 3.375 gm/ Sodium Chloride) 50 mls @ 100 mls/hr IV Q6H [facility] Last Infusion: 08/18/24 11:07 Dose: Infused Documented By: DEEPIKA Dextrose (D10) 250 mls @ 750 mls/hr IV Q15M PRN; Protocol PRN Reason: per Hypoglycemia Standing Ord. Vancomycin HCl 1,000 mg/ (Sodium Chloride) 270 mls @ 270 mls/hr IV Q12H [facility] Last Infusion: 08/18/24 12:04 Dose: Infused Documented By: DEEPIKA Insulin Human Lispro (Insulin Lispro 100 Unit/Ml 3 Ml Vial) 0 unit SUBCUT QIDACHS [facility]; Protocol Last Admin: 08/18/24 11:56 Dose: 2 unit Documented By: DEEPIKA Ondansetron HCl (Ondansetron Hcl 4 Mg/2 Ml Vial) 4 mg IVPUSH Q6H PRN PRN Reason: Nausea and Vomiting Last Admin: 08/18/24 05:55 Dose: 4 mg Documented By: MEHDI Pharmacy Consult (Consult Rx Vancomycin Dosing) 1 each MISCELLANE DAILY PRN PRN Reason: Consult order Sodium Chloride (0.9 % Sodium Chloride Flush 3 Ml Syringe) [facility] Last Admin: 08/18/24 07:06 Dose: 3 ml Documented By: CHAD Labs 08/18/24 06:31 08/18/24 04:47 Labs: Laboratory Results - last 24 hr 08/17/24 08/18/24 08/18/24 21:25 04:47 06:31 MCV 82.3 82.9 MCH 27.8 28.6 MCHC 33.8 34.5 RDW 13.8 13.9 Plt Count 140 L D 109 L MPV 11.0 10.6 Immature Gran % (Auto) 0.4 0.7 H Neut % (Auto) 81.2 H 78.4 H Lymph % (Auto) 11.3 L 10.8 L [place] % (Auto) 6.9 9.9 Eos % (Auto) 0.1 0.1 Baso % (Auto) 0.1 0.1 Lymph # (Auto) 1.8 2.1 [place] # (Auto) 1.1 1.9 H Eos # (Auto) 0.0 0.0 Baso # (Auto) 0.0 0.0 Abs Immat Gran (auto) 0.06 H 0.13 H Absolute Neuts (auto) 13.2 H 14.9 H Absolute Nucleated RBC 0.000 0.000 Nucleated RBC % (auto) 0.0 0.0 Smear Tech's Comments VERIFIED ESR 7 PT 13.8 H INR 1.2 H Anion Gap 18 18 Estim Creat Clear Calc 89.9 78.2 Estimated GFR > 60 > 60 POC Glucose Random Glucose 207 H 216 H Lactic Acid 1.5 Calcium 9.9 8.6 D Total Bilirubin 0.9 Direct Bilirubin 0.2 AST 23 ALT 30 Alkaline Phosphatase 128 H C-Reactive Protein 0.29 Total Protein 7.4 Albumin 4.3 08/18/24 08/18/24 07:34 11:08 MCV MCH MCHC RDW Plt Count MPV Immature Gran % (Auto) Neut % (Auto) Lymph % (Auto) [place] % (Auto) Eos % (Auto) Baso % (Auto) Lymph # (Auto) [place] # (Auto) Eos # (Auto) Baso # (Auto) Abs Immat Gran (auto) Absolute Neuts (auto) Absolute Nucleated RBC Nucleated RBC % (auto) Smear Tech's Comments ESR PT INR Anion Gap Estim Creat Clear Calc Estimated GFR POC Glucose 196 H 175 H Random Glucose Lactic Acid Calcium Total Bilirubin Direct Bilirubin AST ALT Alkaline Phosphatase C-Reactive Protein Total Protein Albumin Assessment and Plan (1) Tenosynovitis of finger: Status: Acute Assessment and Plan: 53 y/o woman admitted with: Severe sepsis due to left index finger tenosynovitis , associated abscess?: hand swelling/erythema seems similar blood cultures pending NPO after midnight. Continueiv Zosyn and vancomycin. Orthopedic consult --npo past midnight , might need surgical i&D to help with the infection Hyperlipidemia. Continue statin. Essential hypertension-elevated start carvedilol hold losartan . Chronic pain syndrome on chronic opiates. Continue Dilaudid. Hypothyroidism. Continue Synthroid. Diabetes mellitus: fs flacuating moniter Insulin sliding scale. Liver cirrhosis due to BENEDICT with portal hypertension/history of esophageal varices. Compensated. No bleeding reported. Thrombocytopenia. Chronic due to liver cirrhosis. Continue to monitor. Obesity, class III. BMI 36.0 kg/m2. encouraged to lose Weight loss, cut down calories . Allergy rhinitis and asthma. Continue Singulair and inhalers. 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 DVT prophylaxis: SCDs due to thrombocytopenia Code status: Full Ongoing hospitalization need: severe sepsis due to left index finger tenosynovitis -need iv antibiotics ,blood cultures Quality Stroke Does the patient have a stroke diagnosis?: No VTE Prior VTE?: No VTE Risk Level:: Medical - low VTE Device Contraindication: N/A - Device Ordered VTE Drug Contraindication: Treatment Not Indicated
[2024-08-18 16:48] LABS: Glucose, Whole Blood 170 mg/dL (60-115)
[2024-08-18] MEDS: Omeprazole 40 MG CAPSULE.DR PO (17:11)
[2024-08-18] MEDS: pyRIDostigmine bromide 60 MG TABLET PO ×2 (17:11→21:15)
[2024-08-18] MEDS: Acetaminophen 325 MG TABLET 975 MG PO (17:11)
[2024-08-18 20:39] LABS: Glucose, Whole Blood 248 mg/dL (60-115)
[2024-08-18] MEDS: Calcium Oyster Shell Elemental 500 MG TABLET 250 MG PO (21:14)
[2024-08-18] MEDS: Atorvastatin Calcium 40 MG TABLET PO (21:15)
[2024-08-18] MEDS: Cholecalciferol (Vitamin D3) 25 MCG TABLET 100 MCG PO (21:15)
[2024-08-18] MEDS: TiZANidine HCL 4 MG TABLET PO (21:15)
[2024-08-18] MEDS: Montelukast Sodium 10 MG TABLET PO (21:15)
--- NOTE | 2024-08-18 23:23 | PC.NURSE ---
rt received from Bessy Stover RN, assume care of pt at this time
[2024-08-19] VITALS (13 sets, daily range): BP systolic 137–183; BP diastolic 65–97; PULSE 66–99; RESP 14–20; TEMP 36.5–37.2; O2SAT 94–100
[2024-08-19] MEDS: vancomycin HCL 1,000 MG in 0.9 % Sodium Chloride 250 ML 250 MG IV (00:01)
[2024-08-19] MEDS: 0.9 % Sodium Chloride Flush 3 ML SYRINGE IVFLUSH ×2 (00:06→17:52)
--- NOTE | 2024-08-19 00:12 | PC.NURSE ---
pt up to the br, no assistance needed. pt was pressing on right finger, and making it ooze. placed a bandage on that finger. Pt is NPO fpr am surgery and pt understands.
[2024-08-19] MEDS: ondansetron HCL 4 MG/2 ML VIAL IVPUSH ×3 (04:04→20:21)
--- NOTE | 2024-08-19 04:08 | PC.NURSE ---
pt requested geneva, states, she feels like she is going to throw up. Medicated as requested.
[2024-08-19 04:11] LABS: Glucose, Whole Blood 180 mg/dL (60-115)
[2024-08-19] MEDS: HYDROmorphone HCl 1 MG/ML SYRINGE IVPUSH ×5 (04:15→21:26)
--- NOTE | 2024-08-19 04:22 | PC.NURSE ---
pt moaning and groaning, c/o of pain in the stomach, requested pain meds. medicated as requested
[2024-08-19 05:05] LABS: Estimated Glomerular Filt Rate > 60
[2024-08-19] MEDS: Piperacillin Sodium/Tazobactam 3.375 GM in 0.9 % Sodium Chloride 50 ML IV ×4 (05:48→23:38)
[2024-08-19 05:57] LABS: Lipase 11 U/L (8-78)
--- NOTE | 2024-08-19 06:03 | PC.NURSE ---
pt continues to moan about her abd. Clancy text dr Burleson, and informed her. Pt states, she thinks her stomach hurts, because she hasn't eaten. but then pt states, it has hurt like this in the past, when I had esophageal varies, and was bleeding into her stomach. Dr Burleson aware and has order more blood work, and some medication. will cont plan of care
[2024-08-19] MEDS: Simethicone 80 MG TAB.CHEW 160 MG PO (06:07)
--- NOTE | 2024-08-19 07:09 | PC.NURSE ---
report to Kasandra ANNE
[2024-08-19 07:53] LABS: Glucose, Whole Blood 183 mg/dL (60-115)
[2024-08-19 08:04] LABS: Hemoglobin 11.1 g/dl (12.0-16.0); Mean Corpuscular HGB Conc 33.6 g/dl (31.0-35.0); Mean Corpuscular Hemoglobin 28.5 pg (27.0-33.0); Mean Corpuscular Volume 84.6 fL (80.0-98.0); Mean Platelet Volume 10.4 fL (9.4-12.3); Platelet Count 90 X10*3/uL (160-400); White Blood Count 12.4 X10*3/uL (4.8-10.8)
[2024-08-19 08:25] LABS: Anion Gap 15 (12-20)
[2024-08-19] MEDS: Insulin Lispro 100 UNIT/ML 3 ML VIAL SUBCUT ×2 (08:30→17:46)
[2024-08-19 08:33] LABS: Alanine Aminotransferase 39 U/L (0-31); Albumin Level 3.6 g/dL (3.5-5.0); Alkaline Phosphatase 98 U/L (39-117); Aspartate Amino Transferase 28 U/L (5-31); Bilirubin Direct 0.5 mg/dL (0.0-0.5); Bilirubin Total 1.6 mg/dL (0.0-1.0); Blood Urea Nitrogen 8 mg/dL (9-16); Calcium 8.4 mg/dL (8.4-10.2); Carbon Dioxide 20 mmol/L (22-29); Chloride 105 mmol/L (96-108); Glucose Random 180 mg/dL (60-115); Potassium 3.6 mmol/L (3.3-5.1); Sodium 136 mmol/L (135-145); Total Protein 6.3 g/dL (6.5-8.0)
--- NOTE | 2024-08-19 08:38 | PC.NURSE ---
Addendum entered by Kasandra Yu RN 08/19/24 11:06: *Hand isn't too bad right now Original Note: upon first contact w/pt she is noted to be crying, moaning, rocking in bed. pt c/o 8/10 lower abdominal pain. abdomen soft,round, no rebound pain, +BS x4 hypoactive, pt reports she has lots of belly troubles reports no bm in 3 days. she endorses randomly alternating soft/hard small pelletized stools. IV dilaudid given with + effect. Dr. Cazares paged and aware and down to assess. Orders as noted. Holding off on GI meds pending surgery of hand/GI consult. Pt states had isn't too bad right now Redness and swelling noted to extend slightly beyond ink demarcation. area warm, +strong distal pulse, able to move fingers, dsg c/d/i. Report called to Sameer in [facility]. Pt covered with 2 units SSI for POC 183. Pt transferred to [facility] with all belongings for anticipated transfer to inpatient unit....
--- NOTE | 2024-08-19 10:06 | MHC.CM.PN ---
Atteempted to meet with patient in regards to discharge planning. Patient is currently in OR. Will attempt to meet again. Continue to monitor for d/c needs.
--- NOTE | 2024-08-19 10:14 | P.HPSUR_ITS ---
Pre-Procedural Eval Section A - 24 Hr Update-Section A only Date of Service: 08/19/24 Section B - Complete if H&P > 30 days Chief Complaint: Left Index Finger Tenosynovitis Allergies: Allergies Allergy/AdvReac Type Severity Reaction Status Date / Time cephalexin Allergy Severe Difficulty Verified 08/01/24 11:44 Breathing latex [LATEX] Allergy Severe Difficulty Verified 08/17/24 20:53 Breathing levofloxacin [From LEVAQUIN] Allergy Severe SHORTNESS Verified 08/17/24 20:53 OF BREATH, RASH, rash morphine [MORPHINE] Allergy Severe RASH, Verified 08/17/24 20:53 asthma exacerbation, rash baclofen [BACLOFEN] Allergy Intermediate Rash Verified 08/17/24 20:53 celecoxib [Celebrex] Allergy Intermediate itching, Verified 08/17/24 20:53 rash, flushing prednisone [PREDNISONE] Allergy Intermediate RASH, Verified 08/17/24 20:53 asthma exacerbation, rash codeine Allergy Unknown Rash Verified 08/17/24 20:53 gluten [GLUTEN] Allergy Unknown UNKNOWN Verified 08/17/24 20:53 oxycodone Allergy Unknown rash Verified 08/17/24 20:53 ranitidine Allergy Unknown unknown Verified 08/17/24 20:53 roflumilast [Daliresp] Allergy Unknown rash Verified 08/17/24 20:53 tramadol [TRAMADOL] Allergy Unknown RASH,SHORTNESS Verified 08/17/24 20:53 OF BREATH AND HEADACHE, asthma exacerbation, rash celery Allergy Rash Verified 08/17/24 20:53 cyclobenzaprine Allergy Rash and Verified 08/17/24 20:53 [From Flexeril] asthma exacerbation environmental allergies Allergy Cleaning Verified 08/17/24 20:53 products cause asthma attack pineapple Allergy Rash Verified 08/17/24 20:53 strawberry Allergy Rash Verified 08/17/24 20:53 sulfamethoxazole AdvReac Intermediate vertigo Verified 08/17/24 20:53 [From Bactrim] trimethoprim [From Bactrim] AdvReac Intermediate vertigo Verified 08/17/24 20:53 diazepam [From Valium] AdvReac Cough Verified 08/17/24 20:53 Exam Exam Comment: The patient is a 53-year-old woman with a prolonged history with Dr. Latif, the hand surgeon at [facility]. Evidently her history began with a left index finger trigger release in 2018. Afterwards it sounds like she had some prolonged swelling on the flexor side. She then reports that she had excision of a cyst from the dorsal aspect of the left index finger PIP joint in January of 2024. It sounds like after that surgery she had problems with prolonged swelling and redness in her left index finger. In talking with her it sounds like she also had problems with swelling and tenderness along the flexor tendon sheath that had been going on for quite some time. She reports that her hand surgeon said that they would have to ?clean out the flexor tendon sheath? but wanted to get an Infectious Disease consult 1st. This plan was formulated evidently sometime in July, and she is awaiting an appointment with infectio us disease at [facility] for sometime in mid to late August. More acutely, she began to have increased pain swelling and redness in the left index finger on 08/17/2024. This was primarily dorsal, with drainage from the old PIP cyst site. She has since developed generalized swelling in the hand and also some tenderness on the flexor side of the index finger extending into the hand. When I asked her why she came to [facility] rather than the hospital where her hand surgeon practices, she said because it was closer to her house. The patient also has multiple medical comorbidities. Physical exam: She was seen in preop hold. She was alert oriented and in no acute distress. She has generalized swelling and erythema of the left hand and particularly the left index finger. She also has some lymphangitis and redness extending up to the distal 3rd of her left forearm. She has yellow purulent drainage coming from a wound over the dorsal aspect of the left index finger PIP joint. She has significant swelling of the index finger that extends into the hand, and says that she can not bend it. She also reports that she has not been able to b end that finger now for quite some time. She could not elaborate but it sounds like it is perhaps for months. She does have some tenderness along the flexor tendon sheath extending to at least the A1 temitope level. There is an old chevron-shaped incision roughly over the A1 temitope of the left index finger that is well healed as an old scar. Decreased sensation to the tip of the left index finger. Good active flexion and extension of the middle ring and small fingers and the thumb. Plan Diagnosis/Plan: Unchanged I have reviewed the history and physical and performed a pertinent physical examination on my patient. No changes have occurred unless specified. Assessment and plan: 1. Acute left index finger and hand infection on top of a more chronic picture that has been managed by the hand surgeons at [facility] I educated her about this condition We discussed operative and non operative treatment options and I am recommending an operative I and D We will be addressing the acute infection. The risks and benefits of operative treatment were discussed with the patient and the patient wishes to proceed with surgery. These risks include, but are not limited to risk of damage to blood vessels, nerves, tendons, infection, recurrence, incomplete relief of preoperative symptoms, persistent pain, possible need for further surgery and the risks associated with regional blocks and anesthesia. The plan is to take the patient to the operating room today for the following procedures: 1. Left index finger and hand I&D 2. [ ] All of the preoperative paperwork including the consent was filled out today. All the patient's questions were answered. Time Spent With Patient Time: Total time managing care of this patient today ____ minutes.
--- NOTE | 2024-08-19 10:25 | W.PM.OPN ---
Operative Note Operative Note Date of Service: 08/19/24 Narrative: Operative Note Narrative: Preop diagnosis: 1. Left index finger infection Postop diagnosis: 1. Left index finger acute/purulent infection and flexor tenosynovitis 2. 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 Left index finger stiffness Procedure: 1. Left index finger I&D dorsal ulnar at the middle phalanx extending volar 2. Left index finger flexor tenosynovectomy of FDP and FDS tendons 3. Left index finger manipulation under anesthesia of the MCP, PIP and D IP joints. Surgeon: Nisha Singer MD Cotton Tier: None Anesthesia: General Anesthesia Findings: Yellow watery purulent discharge from a wound on the dorsal ulnar aspect of the left index finger middle phalanx level. This wound was found to extend volar to the area of the flexor tendons with purulence also found in this area. Significant swelling of the left index finger, and the metacarpal area of the hand. Note patient had no active flexion at the PIP and D IP joint of the left index finger in preop hold, and reports that she had not had active flexion for some time, at least beyond the summer.. The patient also was noted to have marked distention of the flexor tendon sheath. The A1 temitope and A4 pulleys were noted to be markedly distended. Within the tendon sheath there was yellow multi lobular tissue about the flexor tendons most consistent with a chronic mycobacterial infection. The FDS tendon at the A1 temitope area was noted to have some involvement with this material and some partial breakdown of the tendon. The FDP tendon was in better condition in this area. More distally, proximal to the A4 temitope the FDP tendon was noted to have some involvement with this material and some were early partial breakdown of the tendon. After manipulation under anesthesia, we were passively able to bring the index fingertip to the thenar eminence and back into extension. Attempting to pull on the FDP and FDS tendons at the A1 temitope level, we were not able to pull the tendons through and flex the finger. Likely adhesions within the flexor tendon sheath still exist. Tourniquet time: 54 minutes EBL: 5.0 ml Specimen: Swab cultures were taken of yellow purulent material in the dorsal and palmar aspect at the middle phalanx. Swab culture was also taken of the flexor tendon sheath at the A1 temitope area. These were sent for aerobic and anaerobic cultures. Samples of the yellow tissue taken from the flexor tendon sheath were sent as 2 separate specimens for AFB culture and for fungal cultures. A 3rd specimen of the yellow tissue from the flexor tendon sheath was sent for histo pathology. Drains: 1 strip of iodoform gauze as a drain Complications: None Disposition: Brought to the recovery room in stable condition Plan: Admit back to floor for IV antibiotics Remove drain and dressing change tomorrow on the floor. Daily dressing changes after that. Check cultures. Please note patient has been on vancomycin in-house. Recommend Infectious Disease consult. Please be aware that there is #1. An acute purulent infection that began on Monday, and #2. A more chronic likely mycobacterial infection within the flexor tendon sheath that has been going on for a very long time, and had been managed at [facility] Close follow-up once discharged. We will contact her hand surgeon at [facility] Indications: The patient is a 53 year old woman with an acute left index finger infection on top of a more chronic possible infectious picture being managed by an outside provider. . The risks and benefits of operative treatment, including but not limited to risk of damage to blood vessels, nerves, tendons, infection, recurrence, persistent pain or numbness, incomplete resolution of preoperative symptoms, or need for further surgery were discussed with the patient and they wished to proceed with surgery. Procedure: Once consent was obtained patient was brought back to the operating suite and placed in the operating table in a supine position. Anesthesia was administered by the anesthesia team. A tourniquet was applied to the proximal aspect of the left upper extremity and the limb was prepped and draped in a standard surgical fashion. The limb was elevated and the tourniquet inflated to 250 mm of mercury for a total tourniquet time of 54 minutes. A 1.5 cm longitudinal incision was made centered over the draining wound on the dorsal ulnar aspect of the left index finger at the middle phalanx level. The incision was made through the skin to the subcutaneous tissues. She had yellow watery purulent drainage from this wound. Cultures were obtained. Increased drainage was noted when bring the finger into flexion or pushing on the volar aspect of the middle phalanx. I then made a partial Skylar incision over the volar aspect of the middle phalanx and PIP joint. This is done by making incision through the skin to the subcutaneous tissues using a 15. Blade. I then carefully dissected down to the level of the flexor tendon sheath. The flexor tendon sheath was noted to be bulging. Cultures were taken of the generalized purulent fluid in the area of the volar middle phalanx and PIP level. I then made an oblique incision over the A1 temitope of the left index finger flexor tendon sheath. The incision was made through the skin to the subcutaneous tissues. I then dissected down to the level of the A1 temitope. Again we saw the flexor tendon sheath was swollen. I then made a longitudinal incision in the A1 temitope and found an abundant amount of yellow multi lobular soft tissue associated with and about both the FDS and FDP flexor tendons. This appears to me to be most consistent with a chronic mycobacterial infection. I then performed a flexor tenosynovectomy, debriding as much of the infectious material as possible using a small rongeur. The specimens were placed on a Telfa to later be divided for cultures and histopathology. The infection did appear to partially eat into the FDS tendon causing a partial injury to this tendon. The FDP tendon at the A1 temitope level appeared to be in good shape. I removed some of the material from proximal to this area within the tendon sheath and then distal within the tendon sheath. I then made a longitudinal incision in the flexor tendon sheath through the A3 temitope area at the volar aspect of the PIP joint. Again we saw some of this yellow multi lobular tissue that I again I believe is likely secondary to a mycobacterial infection. A continued our flexor tenosynovectomy of the FDP and FDS tendons debriding this material using a small rongeur and placing the material on a Telfa. Again we saw some involvement now of the FDP tendon with partial injury to this tendon from this material. In addition to the swab cultures noted above which were sent for aerobic and anaerobic cultures, we contacted the lab and on their direction divided 2 specimens to be sent on a Telfa in a specimen cup so that we can obtain AFB cultures and fungal cultures. A 3rd specimen of the material from the flexor tendon sheath was then sent for histopathology. The wounds were then copiously irrigated with normal saline. I was able to irrigate from proximal to distal through the flexor tendon sheath using not only an Angiocath on a 10 mL syringe, but even using a bulb syringe as there was significant swelling or enlargement of the temitope system secondary to the mass effect. A manipulation under anesthesia was also performed on the index finger MCP PIP and D IP joints. I was able to passively bring the index finger close to a fist with the tip of the finger brought down to the thenar mass and back into extension for leaving the operating room. I did try to pull on the FDP and FDS tendons within the A1 temitope area to obtain motion, however I believe these tendons are likely stuck within the flexor tendon sheath at other levels.. I did not attempt to further free the tendons from within the flexor tendon sheath, as are objective today is to alleviate the acute purulent infection, and also to debulk and begin treatment of the chronic newly diagnosed likely mycobacterial infection. At this point the tourniquet was deflated and hemostasis obtained with a brief period of local pressure . The wounds were again copiously irrigated with normal saline. The skin edges on the volar side were loosely reapproximated with 4-0 nylon suture. The wound was infiltrated with some 0.5% plain ropivacaine for postop pain control and a sterile dressing was applied. The patient appears to have tolerated the procedure well and with no complications. All digits were well vascularized conclusion of the case.
--- NOTE | 2024-08-19 12:15 | HO.PM.IMPN ---
Subjective Subjective Date of Service: 08/19/24 Interval History: finger cellulitis, constipation Review of Systems Has significant hand swelling and some wrist swelling/pain Patient also had some nausea and abdominal discomfort overnight, she feels constipated. Passing gases, no BM from to 2 days Physical Exam Vital Signs: Vital Signs: Last Vital Signs Temp 98.7 F 08/19/24 09:06 Pulse 73 08/19/24 09:06 Resp 20 08/19/24 09:06 BP 160/87 H 08/19/24 09:06 Pulse Ox 95 08/19/24 09:06 O2 Del Method Room Air 08/19/24 09:06 BMI result Body Mass Index 36.0 Appearance: Alert.? Oriented X3.? cvs: rrr, [id number] , no murmur res: clear to auscultation ,no rhonchii or wheezing abd:soft , no rebound or guarding ,some minimal discomfort, bs present. ext pulses present , no cyanosis neuro: axo3 , nonfocal. Objective Data Active Medications Acetaminophen (Acetaminophen 325 Mg Tablet) 975 mg PO Q6H PRN PRN Reason: Pain, Mild (Pain Scale 1-3), fever or headache Last Admin: 08/18/24 17:11 Dose: 975 mg Documented By: LIZANDRO Albuterol Sulfate (Albuterol Sulfate 90 Mcg 8 Gm Inhaler) 2 puff INHALE Q6H PRN PRN Reason: shortness of breath or wheezing Atorvastatin Calcium (Atorvastatin Calcium 40 Mg Tablet) 40 mg PO BEDTIME [facility] Last Admin: 08/18/24 21:15 Dose: 40 mg Documented By: LIZANDRO Calcium Carbonate (Calcium Oyster Shell Elemental 500 Mg Tablet) 250 mg PO BID [facility] Last Admin: 08/18/24 21:14 Dose: 250 mg Documented By: LIZANDRO Carvedilol (Carvedilol 6.25 Mg Tablet) 6.25 mg PO DAILY [facility]; Protocol Docusate Sodium (Docusate Sodium 100 Mg Capsule) 100 mg PO BEDTIME [facility] Epinephrine (Epinephrine 1 Mg/Ml Vial) 0.3 mg IM Q5M PRN PRN Reason: anaphylaxis Ferrous Sulfate (Ferrous Sulfate 324 Mg Tablet.Dr) 324 mg PO DAILY [facility] Glucose (Glucose Gel 15 Gm Gel..Gram.) 15 gm PO Q15M PRN; Protocol PRN Reason: per Hypoglycemia Standing Ord. Hydromorphone HCl (Hydromorphone Hcl 1 Mg/Ml Syringe) 1 mg IVPUSH Q3H PRN; Protocol PRN Reason: Pain, Severe (Pain Scale 7-10) Last Admin: 08/19/24 07:37 Dose: 1 mg Documented By: LULA Hydromorphone HCl (Hydromorphone Hcl 2 Mg Tablet) 2 mg PO Q4H PRN PRN Reason: Pain, Severe (Pain Scale 7-10) Last Admin: 08/18/24 15:27 Dose: 2 mg Documented By: LIZANDRO Piperacillin Sod/Tazobactam (Sod 3.375 gm/ Sodium Chloride) 50 mls @ 100 mls/hr IV Q6H [facility] Last Infusion: 08/19/24 06:30 Dose: Infused Documented By: MAYRA Dextrose (D10) 250 mls @ 750 mls/hr IV Q15M PRN; Protocol PRN Reason: per Hypoglycemia Standing Ord. Vancomycin HCl 1,000 mg/ (Sodium Chloride) 270 mls @ 270 mls/hr IV Q12H [facility] Last Infusion: 08/19/24 01:10 Dose: Infused Documented By: MAYRA Insulin Human Lispro (Insulin Lispro 100 Unit/Ml 3 Ml Vial) 0 unit SUBCUT QIDACHS [facility]; Protocol Last Admin: 08/19/24 08:30 Dose: 2 unit Documented By: LULA Ipratropium [place] (Ipratropium [place] 0.06 % 15 Ml [place]) 2 spray NOSTRIL-B DAILY [facility] Levothyroxine Sodium (Levothyroxine Sodium 112 Mcg Tablet) 224 mcg PO DAILY@0600 [facility] Last Admin: 08/19/24 06:50 Dose: Not Given Documented By: MAYRA Non-Admin Reason: NPO Loratadine (Loratadine 10 Mg Tablet) 10 mg PO DAILY [facility] Montelukast Sodium (Montelukast Sodium 10 Mg Tablet) 10 mg PO BEDTIME [facility] Last Admin: 08/18/24 21:15 Dose: 10 mg Documented By: LIZANDRO Non-Formulary Medication (Benralizumab [Fasenra]) 30 mg SUBCUT Q56D [facility] Non-Formulary Medication (Mometasone [Asmanex Hfa]) 2 puff INHALE BID [facility] Nystatin (Nystatin Powder 15 Gm Bottle) 1 appl TOPICAL BID [facility]; Protocol Last Admin: 08/18/24 21:19 Dose: Not Given Documented By: LIZANDRO Non-Admin Reason: Patient Refused Omeprazole (Omeprazole 40 Mg Capsule.) 40 mg PO BID@0630,1630 [facility] Last Admin: 08/19/24 06:50 Dose: Not Given Documented By: MAYRA Non-Admin Reason: NPO Ondansetron HCl (Ondansetron Hcl 4 Mg/2 Ml Vial) 4 mg IVPUSH Q6H PRN PRN Reason: Nausea and Vomiting Last Admin: 08/19/24 04:04 Dose: 4 mg Documented By: MAYRA Pharmacy Consult (Consult Rx Vancomycin Dosing) 1 each MISCELLANE DAILY PRN PRN Reason: Consult order Polyethylene Glycol (Polyethylene Glycol 3350 17 Gm Powd.Pack) 17 gm PO DAILY [facility] Pyridostigmine [place] (Pyridostigmine [place] 60 Mg Tablet) 60 mg PO QID [facility] Last Admin: 08/18/24 21:15 Dose: 60 mg Documented By: LIZANDRO Sodium Chloride (0.9 % Sodium Chloride Flush 3 Ml Syringe) 3 ml IVFLUSH QSHIFT [facility] Last Admin: 08/19/24 00:06 Dose: 3 ml Documented By: MAYRA Tiotropium [place] (Tiotropium [place] 2.5 Mcg 1 Puff/2.5 Mcg Mist.Inhal) 2 puff INHALE RDAILY [facility] Last Admin: 08/19/24 08:17 Dose: Not Given Documented By: MIHAI Non-Admin Reason: pharmacy called for med Tizanidine HCl (Tizanidine Hcl 4 Mg Tablet) 4 mg PO BEDTIME [facility] Last Admin: 08/18/24 21:15 Dose: 4 mg Documented By: LIZANDRO Vitamin D (Cholecalciferol (Vitamin D3) 25 Mcg Tablet) 100 mcg PO BEDTIME [facility] Last Admin: 08/18/24 21:15 Dose: 100 mcg Documented By: LIZANDRO Labs 08/19/24 07:58 08/19/24 04:35 Labs: Laboratory Results - last 24 hr 08/18/24 08/18/24 08/19/24 16:45 20:14 04:07 MCV MCH MCHC RDW Plt Count MPV Absolute Nucleated RBC Nucleated RBC % (auto) Anion Gap Estim Creat Clear Calc Estimated GFR POC Glucose 170 H 248 H 180 H Random Glucose Calcium Total Bilirubin Direct Bilirubin AST ALT Alkaline Phosphatase Total Protein Albumin Lipase 08/19/24 08/19/24 08/19/24 04:35 07:44 07:58 MCV 84.6 MCH 28.5 MCHC 33.6 RDW 14.0 Plt Count 90 L MPV 10.4 Absolute Nucleated RBC 0.000 Nucleated RBC % (auto) 0.0 Anion Gap 15 Estim Creat Clear Calc 96.0 Estimated GFR > 60 POC Glucose 183 H Random Glucose 180 H Calcium 8.4 Total Bilirubin 1.6 H Direct Bilirubin 0.5 AST 28 ALT 39 H Alkaline Phosphatase 98 Total Protein 6.3 L Albumin 3.6 Lipase 11 Microbiology Microbiology Results: Microbiology 08/17/24 23:11 Blood Culture - Preliminary Blood - Venous No growth after 24 hours. 08/17/24 21:25 Blood Culture - Preliminary Blood - Venous No growth after 24 hours. Assessment and Plan (1) Tenosynovitis of finger: Status: Acute Assessment and Plan: 53 y/o woman admitted with: Severe sepsis due to left index finger tenosynovitis , associated abscess?: hand swelling/erythema seems similar blood cultures pending NPO after midnight. Continueiv Zosyn and vancomycin. Orthopedic consult --npo past midnight , might need surgical i&D to help with the infection. constipation , has some nausea added zofran ,miralex and colace kub Hyperlipidemia. Continue statin. Essential hypertension-elevated start carvedilol hold losartan . Chronic pain syndrome on chronic opiates. Continue Dilaudid. Hypothyroidism. Continue Synthroid. Diabetes mellitus: fs flacuating moniter Insulin sliding scale. Liver cirrhosis due to BENEDICT with portal hypertension/history of esophageal varices. Compensated. No bleeding reported. Thrombocytopenia. Chronic due to liver cirrhosis. Continue to monitor. Obesity, class III. BMI 36.0 kg/m2. encouraged to lose Weight loss, cut down calories . Allergy rhinitis and asthma. Continue Singulair and inhalers. 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 DVT prophylaxis: SCDs due to thrombocytopenia Code status: Full Ongoing hospitalization need: severe sepsis due to left index finger tenosynovitis -need iv antibiotics ,blood cultures Quality Stroke Does the patient have a stroke diagnosis?: No VTE Prior VTE?: No VTE Risk Level:: Medical - low VTE Device Contraindication: N/A - Device Ordered VTE Drug Contraindication: Treatment Not Indicated
--- NOTE | 2024-08-19 13:11 | P.CNGI_ITS ---
History of Present Illness Data of Consult Service Date: 08/19/24 Requesting physician: Adilene Cazares Primary Care Provider: Cassius Strong MD HPI Reason for consult: ABd pain PMFSH Past Medical History Medical History Anemia Chronic restrictive lung disease Brugada syndrome Shortness of breath Encounter for care related to Port-a-Cath Tinea pedis Recurrent cellulitis of lower extremity CHARLES (obstructive sleep apnea) Hypogammaglobulinemia Cellulitis of both lower extremities Right hip pain Lumbar degenerative disc disease Benign essential hypertension Obesity (BMI 30-39.9) Mitochondrial myopathy Asthma Diabetes mellitus History of revision of total replacement of right hip joint (~12/2019) Acquired hypothyroidism Pain of both hip joints Pure hypercholesterolemia Hx of cataract HTN (hypertension) Osteopenia Hypothyroidism Osteoarthritis of hip Gastritis Family History Family History Father Leukemia Mother Hypertension Diabetes Sister Alive and well Brother Pancreatic cancer Paternal Grandmother Stomach cancer Paternal Grandmother Throat cancer Surgical History Surgical History History of removal of Port-a-Cath History of total right hip arthroplasty (~06/03/19) History of eye surgery (~09/2017) History of hip surgery Hx of foot surgery (~01/02/19) History of removal of cyst Hx of left knee surgery History of elbow surgery (~07/2016) Hx of thumb surgery Hx of appendectomy Hx of hysterectomy (~07/2011) Hx of bilateral breast reduction surgery Social History Social History Household Members: Family and Children Housing: Apartment Do you presently have visiting nurse or other home services: No Alcohol intake: former Comment: refused bed alarm Patient Tobacco Use Status: Never used Tobacco Smoked in Last 30 Days: No e-Cigarette/Vaping Use: Never Used Second Hand Smoke Exposure: No Use of substances other than those prescribed or required for medical reasons: No Are you DNR?: No Advance Directives: Yes Advance Directives on File: Yes Advance Directives Date on File: 10/02/23 Do you have a plan to hurt others: No Plan Nutrition Risks: No Nutritional Risk Patient : No service: No Current occupational status: disabled Cognitive needs: No Hearing needs: No Vision needs: No Meds Allergies Allergy/AdvReac Type Severity Reaction Status Date / Time cephalexin Allergy Severe Difficulty Verified 08/01/24 11:44 Breathing latex [LATEX] Allergy Severe Difficulty Verified 08/17/24 20:53 Breathing levofloxacin [From LEVAQUIN] Allergy Severe SHORTNESS Verified 08/17/24 20:53 OF BREATH, RASH, rash morphine [MORPHINE] Allergy Severe RASH, Verified 08/17/24 20:53 asthma exacerbation, rash baclofen [BACLOFEN] Allergy Intermediate Rash Verified 08/17/24 20:53 celecoxib [Celebrex] Allergy Intermediate itching, Verified 08/17/24 20:53 rash, flushing prednisone [PREDNISONE] Allergy Intermediate RASH, Verified 08/17/24 20:53 asthma exacerbation, rash codeine Allergy Unknown Rash Verified 08/17/24 20:53 gluten [GLUTEN] Allergy Unknown UNKNOWN Verified 08/17/24 20:53 oxycodone Allergy Unknown rash Verified 08/17/24 20:53 ranitidine Allergy Unknown unknown Verified 08/17/24 20:53 roflumilast [Daliresp] Allergy Unknown rash Verified 08/17/24 20:53 tramadol [TRAMADOL] Allergy Unknown RASH,SHORTNESS Verified 08/17/24 20:53 OF BREATH AND HEADACHE, asthma exacerbation, rash celery Allergy Rash Verified 08/17/24 20:53 cyclobenzaprine Allergy Rash and Verified 08/17/24 20:53 [From Flexeril] asthma exacerbation environmental allergies Allergy Cleaning Verified 08/17/24 20:53 products cause asthma attack pineapple Allergy Rash Verified 08/17/24 20:53 strawberry Allergy Rash Verified 08/17/24 20:53 sulfamethoxazole AdvReac Intermediate vertigo Verified 08/17/24 20:53 [From Bactrim] trimethoprim [From Bactrim] AdvReac Intermediate vertigo Verified 08/17/24 20:53 diazepam [From Valium] AdvReac Cough Verified 08/17/24 20:53 Active Medications: Current Medications Acetaminophen (Acetaminophen 325 Mg Tablet) 975 mg PO Q6H PRN PRN Reason: Pain, Mild (Pain Scale 1-3), fever or headache Last Admin: 08/18/24 17:11 Dose: 975 mg Albuterol Sulfate (Albuterol Sulfate 90 Mcg 8 Gm Inhaler) 2 puff INHALE Q6H PRN PRN Reason: shortness of breath or wheezing Atorvastatin Calcium (Atorvastatin Calcium 40 Mg Tablet) 40 mg PO BEDTIME [facility] Last Admin: 08/18/24 21:15 Dose: 40 mg Calcium Carbonate (Calcium Oyster Shell Elemental 500 Mg Tablet) 250 mg PO BID [facility] Last Admin: 08/18/24 21:14 Dose: 250 mg Carvedilol (Carvedilol 6.25 Mg Tablet) 6.25 mg PO DAILY [facility]; Protocol Docusate Sodium (Docusate Sodium 100 Mg Capsule) 100 mg PO BEDTIME [facility] Epinephrine (Epinephrine 1 Mg/Ml Vial) 0.3 mg IM Q5M PRN PRN Reason: anaphylaxis Ferrous Sulfate (Ferrous Sulfate 324 Mg Tablet.Dr) 324 mg PO DAILY [facility] Glucose (Glucose Gel 15 Gm Gel..Gram.) 15 gm PO Q15M PRN; Protocol PRN Reason: per Hypoglycemia Standing Ord. Hydromorphone HCl (Hydromorphone Hcl 1 Mg/Ml Syringe) 1 mg IVPUSH Q3H PRN; Protocol PRN Reason: Pain, Severe (Pain Scale 7-10) Last Admin: 08/19/24 07:37 Dose: 1 mg Hydromorphone HCl (Hydromorphone Hcl 2 Mg Tablet) 2 mg PO Q4H PRN PRN Reason: Pain, Severe (Pain Scale 7-10) Last Admin: 08/18/24 15:27 Dose: 2 mg Piperacillin Sod/Tazobactam (Sod 3.375 gm/ Sodium Chloride) 50 mls @ 100 mls/hr IV Q6H [facility] Last Admin: 08/19/24 12:25 Dose: 100 mls/hr Dextrose (D10) 250 mls @ 750 mls/hr IV Q15M PRN; Protocol PRN Reason: per Hypoglycemia Standing Ord. Vancomycin HCl 1,000 mg/ (Sodium Chloride) 270 mls @ 270 mls/hr IV Q12H [facility] Last Infusion: 08/19/24 01:10 Dose: Infused Insulin Human Lispro (Insulin Lispro 100 Unit/Ml 3 Ml Vial) 0 unit SUBCUT QIDACHS [facility]; Protocol Last Admin: 08/19/24 08:30 Dose: 2 unit Ipratropium [place] (Ipratropium [place] Maynor 0.06 % 15 Ml Home) 2 spray NOSTRIL-B DAILY [facility] Levothyroxine Sodium (Levothyroxine Sodium 112 Mcg Tablet) 224 mcg PO DAILY@0600 [facility] Last Admin: 08/19/24 06:50 Dose: Not Given Loratadine (Loratadine 10 Mg Tablet) 10 mg PO DAILY [facility] Montelukast Sodium (Montelukast Sodium 10 Mg Tablet) 10 mg PO BEDTIME [facility] Last Admin: 08/18/24 21:15 Dose: 10 mg Non-Formulary Medication (Benralizumab [Fasenra]) 30 mg SUBCUT Q56D [facility] Non-Formulary Medication (Mometasone [Asmanex Hfa]) 2 puff INHALE BID [facility] Nystatin (Nystatin Powder 15 Gm Bottle) 1 appl TOPICAL BID [facility]; Protocol Last Admin: 08/18/24 21:19 Dose: Not Given Omeprazole (Omeprazole 40 Mg Capsule.Dr) 40 mg PO BID@0630,1630 [facility] Last Admin: 08/19/24 06:50 Dose: Not Given Ondansetron HCl (Ondansetron Hcl 4 Mg/2 Ml Vial) 4 mg IVPUSH Q6H PRN PRN Reason: Nausea and Vomiting Last Admin: 08/19/24 04:04 Dose: 4 mg Pharmacy Consult (Consult Rx Vancomycin Dosing) 1 each MISCELLANE DAILY PRN PRN Reason: Consult order Polyethylene Glycol (Polyethylene Glycol 3350 17 Gm Powd.Pack) 17 gm PO DAILY [facility] Pyridostigmine [place] (Pyridostigmine [place] 60 Mg Tablet) 60 mg PO QID [facility] Last Admin: 08/18/24 21:15 Dose: 60 mg Sodium Chloride (0.9 % Sodium Chloride Flush 3 Ml Syringe) 3 ml IVFLUSH QSHIFT [facility] Last Admin: 08/19/24 00:06 Dose: 3 ml Tiotropium [place] (Tiotropium [place] 2.5 Mcg 1 Puff/2.5 Mcg Mist.Inhal) 2 puff INHALE RDAILY [facility] Last Admin: 08/19/24 08:17 Dose: Not Given Tizanidine HCl (Tizanidine Hcl 4 Mg Tablet) 4 mg PO BEDTIME [facility] Last Admin: 08/18/24 21:15 Dose: 4 mg Vitamin D (Cholecalciferol (Vitamin D3) 25 Mcg Tablet) 100 mcg PO BEDTIME [facility] Last Admin: 08/18/24 21:15 Dose: 100 mcg Home Medications ?Medication ?Instructions ?Recorded ?Confirmed ?Last Taken ?Type ipratropium bromide 42 mcg (0.06 2 spray intranasal DAILY 03/11/21 08/18/24 08/17/24 History %) nasal spray benralizumab 30 mg/mL subcutaneous 30 mg subcut Q8W 10/06/22 08/18/24 3 Weeks Ago History syringe (Fasenra) ~07/28/24 nebulizers 03/09/23 08/01/24 Unknown History carvedilol 6.25 mg tablet 6.25 mg PO DAILY for blood pressure 04/15/24 08/18/24 08/17/24 History epinephrine 0.3 mg/0.3 mL 0.3 mg IM Q5M PRN anaphylaxis 04/15/24 08/18/24 Unknown History injection, auto-injector mometasone 200 mcg/actuation HFA 2 puff inhalation BID 04/15/24 08/18/24 08/17/24 History aerosol inhaler (Asmanex HFA) calcium citrate 250 mg PO BID 08/18/24 08/18/24 08/17/24 History hydromorphone 2 mg tablet 2 mg PO Q8H PRN pain 08/18/24 08/18/24 Unknown History insulin aspart 1 sliding scale dose subcut TIDAC 08/18/24 08/18/24 08/17/24 History (niacinamide)(U-100) 100 unit/mL(3 mL) subcutaneous pen (Fiasp FlexTouch U-100 Insulin) insulin degludec 100 unit/mL (3 8 unit subcut DAILY 08/18/24 08/18/24 08/17/24 History mL) subcutaneous pen (Tresiba FlexTouch U-100 insulin) levothyroxine 112 mcg tablet 224 mcg PO DAILY@0600 08/18/24 08/18/24 08/17/24 History (Synthroid) nystatin 100,000 unit/gram topical 1 appl topical BID 08/18/24 08/18/24 08/17/24 History powder (Nystop) omeprazole 40 mg capsule,delayed 40 mg PO BID gastritis 08/18/24 08/18/24 08/17/24 History release pyridostigmine bromide 60 mg tablet 60 mg PO QID 08/18/24 08/18/24 08/17/24 History tiotropium bromide 1.25 2 puff inhalation DAILY 08/18/24 08/18/24 08/17/24 History mcg/actuation mist for inhalation (Spiriva Respimat) tizanidine 2 mg tablet 4 mg PO BEDTIME for muscle spasm 08/18/24 08/18/24 08/17/24 History Physical Exam 2 Vital Signs: Vital Signs: Last Vital Signs Temp 98 F 08/19/24 12:45 Pulse 77 08/19/24 12:45 Resp 16 08/19/24 12:45 BP 163/80 H 08/19/24 12:45 Pulse Ox 98 08/19/24 12:45 O2 Del Method Room Air 08/19/24 12:45 O2 Flow Rate 6 08/19/24 12:20 BMI result Body Mass Index 36.0 Results Labs 08/19/24 07:58 08/19/24 04:35 Labs: Short CBC 08/19/24 Range/Units 07:58 WBC 12.4 H (4.8-10.8) X10*3/uL Hgb 11.1 L (12.0-16.0) g/dl Hct 33.0 L (37.0-47.0) % Plt Count 90 L (160-400) X10*3/uL BMP 08/19/24 04:35 Sodium 136 Potassium 3.6 D Chloride 105 Carbon Dioxide 20 L BUN 8 L Creatinine 0.75 Calcium 8.4 Liver Function 08/19/24 Range/Units 04:35 Total Bilirubin 1.6 H (0.0-1.0) mg/dL Direct Bilirubin 0.5 (0.0-0.5) mg/dL AST 28 (5-31) U/L ALT 39 H (0-31) U/L Alkaline Phosphatase 98 (39-117) U/L Albumin 3.6 (3.5-5.0) g/dL Microbiology Microbiology Results: Microbiology 08/17/24 23:11 Blood - Venous Blood Culture - Preliminary No growth after 24 hours. 08/17/24 21:25 Blood - Venous Blood Culture - Preliminary No growth after 24 hours. Procedures Date of Service Date of Service: 08/19/24
[2024-08-19 14:08] LABS: Glucose, Whole Blood 175 mg/dL (60-115)
[2024-08-19] MEDS: vancomycin HCL 1,000 MG in 0.9 % Sodium Chloride 250 ML 270 MG IV (14:29)
[2024-08-19] MEDS: carvediloL 6.25 MG TABLET PO (15:36)
[2024-08-19] MEDS: Nystatin Powder 15 GM BOTTLE 1 APPL TOPICAL (15:37)
[2024-08-19] MEDS: Ipratropium Bromide Nas 0.06 % 15 ML SPRAY 2 SPRAY NOSTRIL-B (15:37)
[2024-08-19 16:03] LABS: Glucose, Whole Blood 167 mg/dL (60-115)
--- NOTE | 2024-08-19 16:17 | PM.GICN ---
History of Present Illness Data of Consult Service Date: 08/19/24 Requesting physician: Adilene Cazares Primary Care Provider: Cassius Strong MD HPI Reason for consult: Abd pain 53 y.o F with PMH of non-cirrhotic portal HTN with previous hx of variceal bleeding, who presented to the hospital for L index finger abscess with course complicated by sudden onset of abd pain. Pt seen at bedside after her L index finger I&D. Reports abdominal pain since 4:00 AM. Sudden onset which got worse after she was allowed to eat post surgery. Has not had monserrat appetite since last night but now unable to tolerate anything PO including jello with frequent dry heaving. Pain localized to central abdomen, no radiation. + bloating. Has not been able to pass flatus since 4:00 AM. Last bowel movement Monday (2 days ago). Had fevers but likely 2/2 finger abscess. LFTs and panc enzymes normal. Pt does not report etOH or smoking. Pertinent hx includes pancreatitis 9 years ago (etiology unknown). Hysterectomy in 2014. No diverticulosis noted on colo 11/2023. Brother: pancreatic cancer, at 44 y.o. Review of Systems Review of Systems: Yes all other systems are reviewed and are negative PMFSH Past Medical History Medical History Anemia Chronic restrictive lung disease Brugada syndrome Shortness of breath Encounter for care related to Port-a-Cath Tinea pedis Recurrent cellulitis of lower extremity CHARLES (obstructive sleep apnea) Hypogammaglobulinemia Cellulitis of both lower extremities Right hip pain Lumbar degenerative disc disease Benign essential hypertension Obesity (BMI 30-39.9) Mitochondrial myopathy Asthma Diabetes mellitus History of revision of total replacement of right hip joint (~12/2019) Acquired hypothyroidism Pain of both hip joints Pure hypercholesterolemia Hx of cataract HTN (hypertension) Osteopenia Hypothyroidism Osteoarthritis of hip Gastritis Family History Family History Father Leukemia Mother Hypertension Diabetes Sister Alive and well Brother Pancreatic cancer Paternal Grandmother Stomach cancer Paternal Grandmother Throat cancer Surgical History Surgical History History of removal of Port-a-Cath History of total right hip arthroplasty (~06/03/19) History of eye surgery (~09/2017) History of hip surgery Hx of foot surgery (~01/02/19) History of removal of cyst Hx of left knee surgery History of elbow surgery (~07/2016) Hx of thumb surgery Hx of appendectomy Hx of hysterectomy (~07/2011) Hx of bilateral breast reduction surgery Social History Social History Household Members: Family Housing: Apartment Do you presently have visiting nurse or other home services: No Alcohol intake: former Comment: refused bed alarm Patient Tobacco Use Status: Never used Tobacco Smoked in Last 30 Days: No e-Cigarette/Vaping Use: Never Used Second Hand Smoke Exposure: No Use of substances other than those prescribed or required for medical reasons: No Have you been hit, kicked, punched, or otherwise hurt by someone within the past year? If so, by whom?: No Do you feel safe in your current relationship?: No Current Relationship Is there a partner from a previous relationship who is making you feel unsafe now?: No Are you made to feel afraid or neglected: No Are you DNR?: No Advance Directives: Yes Advance Directives on File: Yes Advance Directives Date on File: 10/02/23 Do you have a plan to hurt others: No Plan Recently lost weight without trying: No Eating poorly because of decreased appetite: No Nutrition Risks: No Nutritional Risk Patient : No : No Poor oral hygiene: No service: No Current occupational status: disabled Cognitive needs: No Hearing needs: No Vision needs: No Meds Allergies Allergy/AdvReac Type Severity Reaction Status Date / Time cephalexin Allergy Severe Difficulty Verified 08/01/24 11:44 Breathing latex [LATEX] Allergy Severe Difficulty Verified 08/17/24 20:53 Breathing levofloxacin [From LEVAQUIN] Allergy Severe SHORTNESS Verified 08/17/24 20:53 OF BREATH, RASH, rash morphine [MORPHINE] Allergy Severe RASH, Verified 08/17/24 20:53 asthma exacerbation, rash baclofen [BACLOFEN] Allergy Intermediate Rash Verified 08/17/24 20:53 celecoxib [Celebrex] Allergy Intermediate itching, Verified 08/17/24 20:53 rash, flushing prednisone [PREDNISONE] Allergy Intermediate RASH, Verified 08/17/24 20:53 asthma exacerbation, rash codeine Allergy Unknown Rash Verified 08/17/24 20:53 gluten [GLUTEN] Allergy Unknown UNKNOWN Verified 08/17/24 20:53 oxycodone Allergy Unknown rash Verified 08/17/24 20:53 ranitidine Allergy Unknown unknown Verified 08/17/24 20:53 roflumilast [Daliresp] Allergy Unknown rash Verified 08/17/24 20:53 tramadol [TRAMADOL] Allergy Unknown RASH,SHORTNESS Verified 08/17/24 20:53 OF BREATH AND HEADACHE, asthma exacerbation, rash celery Allergy Rash Verified 08/17/24 20:53 cyclobenzaprine Allergy Rash and Verified 08/17/24 20:53 [From Flexeril] asthma exacerbation environmental allergies Allergy Cleaning Verified 08/17/24 20:53 products cause asthma attack pineapple Allergy Rash Verified 08/17/24 20:53 strawberry Allergy Rash Verified 08/17/24 20:53 sulfamethoxazole AdvReac Intermediate vertigo Verified 08/17/24 20:53 [From Bactrim] trimethoprim [From Bactrim] AdvReac Intermediate vertigo Verified 08/17/24 20:53 diazepam [From Valium] AdvReac Cough Verified 08/17/24 20:53 Active Medications: Current Medications Acetaminophen (Acetaminophen 325 Mg Tablet) 975 mg PO Q6H PRN PRN Reason: Pain, Mild (Pain Scale 1-3), fever or headache Last Admin: 08/18/24 17:11 Dose: 975 mg Albuterol Sulfate (Albuterol Sulfate 90 Mcg 8 Gm Inhaler) 2 puff INHALE Q6H PRN PRN Reason: shortness of breath or wheezing Atorvastatin Calcium (Atorvastatin Calcium 40 Mg Tablet) 40 mg PO BEDTIME [facility] Last Admin: 08/18/24 21:15 Dose: 40 mg Calcium Carbonate (Calcium Oyster Shell Elemental 500 Mg Tablet) 250 mg PO BID [facility] Last Admin: 08/19/24 15:11 Dose: Not Given Carvedilol (Carvedilol 6.25 Mg Tablet) 6.25 mg PO DAILY [facility]; Protocol Last Admin: 08/19/24 15:10 Dose: Not Given Docusate Sodium (Docusate Sodium 100 Mg Capsule) 100 mg PO BEDTIME [facility] Last Admin: 08/19/24 15:11 Dose: Not Given Epinephrine (Epinephrine 1 Mg/Ml Vial) 0.3 mg IM Q5M PRN PRN Reason: anaphylaxis Ferrous Sulfate (Ferrous Sulfate 324 Mg Tablet.Dr) 324 mg PO DAILY [facility] Last Admin: 08/19/24 15:11 Dose: Not Given Glucose (Glucose Gel 15 Gm Gel..Gram.) 15 gm PO Q15M PRN; Protocol PRN Reason: per Hypoglycemia Standing Ord. Hydromorphone HCl (Hydromorphone Hcl 1 Mg/Ml Syringe) 1 mg IVPUSH Q3H PRN; Protocol PRN Reason: Pain, Severe (Pain Scale 7-10) Last Admin: 08/19/24 14:33 Dose: 1 mg Hydromorphone HCl (Hydromorphone Hcl 2 Mg Tablet) 2 mg PO Q4H PRN PRN Reason: Pain, Severe (Pain Scale 7-10) Last Admin: 08/18/24 15:27 Dose: 2 mg Piperacillin Sod/Tazobactam (Sod 3.375 gm/ Sodium Chloride) 50 mls @ 100 mls/hr IV Q6H [facility] Last Infusion: 08/19/24 13:56 Dose: Infused Dextrose (D10) 250 mls @ 750 mls/hr IV Q15M PRN; Protocol PRN Reason: per Hypoglycemia Standing Ord. Vancomycin HCl 1,000 mg/ (Sodium Chloride) 270 mls @ 270 mls/hr IV Q12H [facility] Last Infusion: 08/19/24 16:10 Dose: Infused Lactated Ringer's (Lr) 1,000 mls @ 100 mls/hr IVCONT .Q10H [facility] Insulin Human Lispro (Insulin Lispro 100 Unit/Ml 3 Ml Vial) 0 unit SUBCUT QIDACHS [facility]; Protocol Last Admin: 08/19/24 15:13 Dose: Not Given Ipratropium Ava (Ipratropium Ava Maynor 0.06 % 15 Ml [place]) 2 spray NOSTRIL-B DAILY [facility] Last Admin: 08/19/24 15:37 Dose: 2 spray Levothyroxine Sodium (Levothyroxine Sodium 112 Mcg Tablet) 224 mcg PO DAILY@0600 [facility] Last Admin: 08/19/24 06:50 Dose: Not Given Loratadine (Loratadine 10 Mg Tablet) 10 mg PO DAILY [facility] Last Admin: 08/19/24 15:11 Dose: Not Given Montelukast Sodium (Montelukast Sodium 10 Mg Tablet) 10 mg PO BEDTIME [facility] Last Admin: 08/18/24 21:15 Dose: 10 mg Non-Formulary Medication (Benralizumab [Fasenra]) 30 mg SUBCUT Q56D [facility] Non-Formulary Medication (Mometasone [Asmanex Hfa]) 2 puff INHALE BID [facility] Nystatin (Nystatin Powder 15 Gm Bottle) 1 appl TOPICAL BID [facility]; Protocol Last Admin: 08/19/24 15:37 Dose: 1 appl Omeprazole (Omeprazole 40 Mg Capsule.Dr) 40 mg PO BID@0630,1630 [facility] Last Admin: 08/19/24 06:50 Dose: Not Given Ondansetron HCl (Ondansetron Hcl 4 Mg/2 Ml Vial) 4 mg IVPUSH Q6H PRN PRN Reason: Nausea and Vomiting Last Admin: 08/19/24 04:04 Dose: 4 mg Pharmacy Consult (Consult Rx Vancomycin Dosing) 1 each MISCELLANE DAILY PRN PRN Reason: Consult order Polyethylene Glycol (Polyethylene Glycol 3350 17 Gm Powd.Pack) 17 gm PO DAILY [facility] Last Admin: 08/19/24 15:41 Dose: Not Given Pyridostigmine Ava (Pyridostigmine Ava 60 Mg Tablet) 60 mg PO QID [facility] Last Admin: 08/19/24 15:13 Dose: Not Given Sodium Chloride (0.9 % Sodium Chloride Flush 3 Ml Syringe) 3 ml IVFLUSH QSHIFT [facility] Last Admin: 08/19/24 14:49 Dose: Not Given Tiotropium Ava (Tiotropium Ava 2.5 Mcg 1 Puff/2.5 Mcg Mist.Inhal) 2 puff INHALE RDAILY [facility] Last Admin: 08/19/24 08:17 Dose: Not Given Tizanidine HCl (Tizanidine Hcl 4 Mg Tablet) 4 mg PO BEDTIME [facility] Last Admin: 08/18/24 21:15 Dose: 4 mg Vitamin D (Cholecalciferol (Vitamin D3) 25 Mcg Tablet) 100 mcg PO BEDTIME [facility] Last Admin: 08/18/24 21:15 Dose: 100 mcg Home Medications ?Medication ?Instructions ?Recorded ?Confirmed ?Last Taken ?Type ipratropium bromide 42 mcg (0.06 2 spray intranasal DAILY 03/11/21 08/18/24 08/17/24 History %) nasal spray benralizumab 30 mg/mL subcutaneous 30 mg subcut Q8W 10/06/22 08/18/24 3 Weeks Ago History syringe (Fasenra) ~07/28/24 nebulizers 03/09/23 08/01/24 Unknown History carvedilol 6.25 mg tablet 6.25 mg PO DAILY for blood pressure 04/15/24 08/18/24 08/17/24 History epinephrine 0.3 mg/0.3 mL 0.3 mg IM Q5M PRN anaphylaxis 04/15/24 08/18/24 Unknown History injection, auto-injector mometasone 200 mcg/actuation HFA 2 puff inhalation BID 04/15/24 08/18/24 08/17/24 History aerosol inhaler (Asmanex HFA) calcium citrate 250 mg PO BID 08/18/24 08/18/24 08/17/24 History hydromorphone 2 mg tablet 2 mg PO Q8H PRN pain 08/18/24 08/18/24 Unknown History insulin aspart 1 sliding scale dose subcut TIDAC 08/18/24 08/18/24 08/17/24 History (niacinamide)(U-100) 100 unit/mL(3 mL) subcutaneous pen (Fiasp FlexTouch U-100 Insulin) insulin degludec 100 unit/mL (3 8 unit subcut DAILY 08/18/24 08/18/24 08/17/24 History mL) subcutaneous pen (Tresiba FlexTouch U-100 insulin) levothyroxine 112 mcg tablet 224 mcg PO DAILY@0600 08/18/24 08/18/24 08/17/24 History (Synthroid) nystatin 100,000 unit/gram topical 1 appl topical BID 08/18/24 08/18/24 08/17/24 History powder (Nystop) omeprazole 40 mg capsule,delayed 40 mg PO BID gastritis 08/18/24 08/18/24 08/17/24 History release pyridostigmine bromide 60 mg tablet 60 mg PO QID 08/18/24 08/18/24 08/17/24 History tiotropium bromide 1.25 2 puff inhalation DAILY 08/18/24 08/18/24 08/17/24 History mcg/actuation mist for inhalation (Spiriva Respimat) tizanidine 2 mg tablet 4 mg PO BEDTIME for muscle spasm 08/18/24 08/18/24 08/17/24 History Physical Exam Vital Signs: Vital Signs: Last Vital Signs Temp 98.5 F 08/19/24 15:29 Pulse 78 08/19/24 15:29 Resp 18 08/19/24 15:29 BP 150/71 H 08/19/24 15:29 Pulse Ox 94 08/19/24 15:29 O2 Del Method Room Air 08/19/24 15:29 O2 Flow Rate 6 08/19/24 12:20 BMI result Body Mass Index 36.0 appears in visible discomfort Nonicteric Normal resp pattern abd soft, tender, voluntary guarding no SHIRLEY L hand index finger in dressing Results Labs 08/19/24 07:58 08/19/24 04:35 Labs: Short CBC 08/19/24 Range/Units 07:58 WBC 12.4 H (4.8-10.8) X10*3/uL Hgb 11.1 L (12.0-16.0) g/dl Hct 33.0 L (37.0-47.0) % Plt Count 90 L (160-400) X10*3/uL BMP 08/19/24 04:35 Sodium 136 Potassium 3.6 D Chloride 105 Carbon Dioxide 20 L BUN 8 L Creatinine 0.75 Calcium 8.4 Liver Function 08/19/24 Range/Units 04:35 Total Bilirubin 1.6 H (0.0-1.0) mg/dL Direct Bilirubin 0.5 (0.0-0.5) mg/dL AST 28 (5-31) U/L ALT 39 H (0-31) U/L Alkaline Phosphatase 98 (39-117) U/L Albumin 3.6 (3.5-5.0) g/dL Microbiology Microbiology Results: Microbiology 08/19/24 Unknown Finger Left Index Gram Stain - Final 08/19/24 Unknown Finger Left Index Gram Stain - Final 08/19/24 Unknown Finger Gram Stain - Final 08/17/24 23:11 Blood - Venous Blood Culture - Preliminary No growth after 24 hours. 08/17/24 21:25 Blood - Venous Blood Culture - Preliminary No growth after 24 hours. Assessment and Plan (1) Abdominal pain: Status: Acute (2) Obstipation: Status: Acute (3) Portal hypertension: Status: Acute Plan Has sudden onset abd pain with obstipation in the context of prev hx of pancreatitis, abd/pelvic surgeries and non-cirrhotic portal HTN. Ddx include acute panc, SBO, ileus, ? diverticulitis, ? sbp. Plan: - Keep NPO - CT abd/pel with IV contrast (po deferred as pt dry heaving) - Further mgmt contingent on findings Procedures Date of Service Date of Service: 08/19/24
[2024-08-19] MEDS: Lactated Ringers 1,000 ML 100 ML IVCONT (18:24)
[2024-08-19] MEDS: iohexoL 350 MG/ML 100 ML INFUS..BTL 85 ML IV (19:49)
[2024-08-19 20:32] LABS: Glucose, Whole Blood 150 mg/dL (60-115)
[2024-08-20] VITALS (11 sets, daily range): BP systolic 152–174; BP diastolic 24–90; PULSE 57–73; RESP 17–19; TEMP 36.6–36.9; O2SAT 93–98
[2024-08-20 03:33] LABS: Glucose, Whole Blood 139 mg/dL (60-115)
[2024-08-20] MEDS: vancomycin HCL 1,000 MG in 0.9 % Sodium Chloride 250 ML 270 MG IV (03:45)
[2024-08-20] MEDS: HYDROmorphone HCl 1 MG/ML SYRINGE IVPUSH ×2 (03:53→05:27)
[2024-08-20] MEDS: Lactated Ringers 1,000 ML 100 ML IVCONT ×2 (03:54→16:30)
[2024-08-20] MEDS: ondansetron HCL 4 MG/2 ML VIAL IVPUSH (03:58)
[2024-08-20] MEDS: Levothyroxine Sodium 112 MCG TABLET 224 MCG PO (05:10)
[2024-08-20] MEDS: Losartan Potassium 25 MG TABLET PO (05:10)
[2024-08-20] MEDS: Piperacillin Sodium/Tazobactam 3.375 GM in 0.9 % Sodium Chloride 50 ML IV ×4 (05:25→22:16)
[2024-08-20] MEDS: Omeprazole 40 MG CAPSULE.DR PO (05:55)
--- NOTE | 2024-08-20 07:34 | PM.CNGS ---
History of Present Illness Consult details Consult date: 08/20/24 Requesting physician: Adilene Cazares Narrative: 53-year-old female patient admitted with a left index finger abscess status post incision and drainage. Perioperatively, the patient developed abdominal pain, nausea, and bloating. She feels the symptoms seemed to start after starting the IV antibiotics. She reports nausea without vomiting. This morning she feels slightly improved but still feels the bloating and abdominal discomfort mainly in the left upper quadrant. A CT abdomen and pelvis was performed. This revealed normal stomach and small bowel without evidence of obstruction or ileus. Incidentally noted pancreatic cyst is noted at the tail of the pancreas. MRI is recommended for further evaluation. Review of Systems Review of Systems: Yes all other systems are reviewed and are negative PMFSH Past Medical History Medical History Anemia Chronic restrictive lung disease Brugada syndrome Shortness of breath Encounter for care related to Port-a-Cath Tinea pedis Recurrent cellulitis of lower extremity CHARLES (obstructive sleep apnea) Hypogammaglobulinemia Cellulitis of both lower extremities Right hip pain Lumbar degenerative disc disease Benign essential hypertension Obesity (BMI 30-39.9) Mitochondrial myopathy Asthma Diabetes mellitus History of revision of total replacement of right hip joint (~12/2019) Acquired hypothyroidism Pain of both hip joints Pure hypercholesterolemia Hx of cataract HTN (hypertension) Osteopenia Hypothyroidism Osteoarthritis of hip Gastritis Family History Family History Father Leukemia Mother Hypertension Diabetes Sister Alive and well Brother Pancreatic cancer Paternal Grandmother Stomach cancer Paternal Grandmother Throat cancer Surgical History Surgical History History of removal of Port-a-Cath History of total right hip arthroplasty (~06/03/19) History of eye surgery (~09/2017) History of hip surgery Hx of foot surgery (~01/02/19) History of removal of cyst Hx of left knee surgery History of elbow surgery (~07/2016) Hx of thumb surgery Hx of appendectomy Hx of hysterectomy (~07/2011) Hx of bilateral breast reduction surgery Social History Social History Household Members: Family Housing: Apartment Do you presently have visiting nurse or other home services: No Alcohol intake: former Comment: refused bed alarm Patient Tobacco Use Status: Never used Tobacco Smoked in Last 30 Days: No e-Cigarette/Vaping Use: Never Used Second Hand Smoke Exposure: No Use of substances other than those prescribed or required for medical reasons: No Currently Displaying Signs/Symptoms of Drug Intoxication Withdrawal: No Have you been hit, kicked, punched, or otherwise hurt by someone within the past year? If so, by whom?: No Do you feel safe in your current relationship?: No Current Relationship Is there a partner from a previous relationship who is making you feel unsafe now?: No Are you made to feel afraid or neglected: No Are you DNR?: No Advance Directives: Yes Advance Directives on File: Yes Advance Directives Date on File: 10/02/23 Do you have a plan to hurt others: No Plan Recently lost weight without trying: No Eating poorly because of decreased appetite: No Nutrition Risks: No Nutritional Risk Patient : No : No Poor oral hygiene: No service: No Current occupational status: disabled Cognitive needs: No Hearing needs: No Vision needs: No Meds Allergies Allergy/AdvReac Type Severity Reaction Status Date / Time cephalexin Allergy Severe Difficulty Verified 08/01/24 11:44 Breathing latex [LATEX] Allergy Severe Difficulty Verified 08/17/24 20:53 Breathing levofloxacin [From LEVAQUIN] Allergy Severe SHORTNESS Verified 08/17/24 20:53 OF BREATH, RASH, rash morphine [MORPHINE] Allergy Severe RASH, Verified 08/17/24 20:53 asthma exacerbation, rash baclofen [BACLOFEN] Allergy Intermediate Rash Verified 08/17/24 20:53 celecoxib [Celebrex] Allergy Intermediate itching, Verified 08/17/24 20:53 rash, flushing prednisone [PREDNISONE] Allergy Intermediate RASH, Verified 08/17/24 20:53 asthma exacerbation, rash codeine Allergy Unknown Rash Verified 08/17/24 20:53 gluten [GLUTEN] Allergy Unknown UNKNOWN Verified 08/17/24 20:53 oxycodone Allergy Unknown rash Verified 08/17/24 20:53 ranitidine Allergy Unknown unknown Verified 08/17/24 20:53 roflumilast [Daliresp] Allergy Unknown rash Verified 08/17/24 20:53 tramadol [TRAMADOL] Allergy Unknown RASH,SHORTNESS Verified 08/17/24 20:53 OF BREATH AND HEADACHE, asthma exacerbation, rash celery Allergy Rash Verified 08/17/24 20:53 cyclobenzaprine Allergy Rash and Verified 08/17/24 20:53 [From Flexeril] asthma exacerbation environmental allergies Allergy Cleaning Verified 08/17/24 20:53 products cause asthma attack pineapple Allergy Rash Verified 08/17/24 20:53 strawberry Allergy Rash Verified 08/17/24 20:53 sulfamethoxazole AdvReac Intermediate vertigo Verified 08/17/24 20:53 [From Bactrim] trimethoprim [From Bactrim] AdvReac Intermediate vertigo Verified 08/17/24 20:53 diazepam [From Valium] AdvReac Cough Verified 08/17/24 20:53 Active Medications: Current Medications Acetaminophen (Acetaminophen 325 Mg Tablet) 975 mg PO Q6H PRN PRN Reason: Pain, Mild (Pain Scale 1-3), fever or headache Last Admin: 08/18/24 17:11 Dose: 975 mg Albuterol Sulfate (Albuterol Sulfate 90 Mcg 8 Gm Inhaler) 2 puff INHALE Q6H PRN PRN Reason: shortness of breath or wheezing Atorvastatin Calcium (Atorvastatin Calcium 40 Mg Tablet) 40 mg PO BEDTIME [facility] Last Admin: 08/19/24 20:21 Dose: Not Given Calcium Carbonate (Calcium Oyster Shell Elemental 500 Mg Tablet) 250 mg PO BID [facility] Last Admin: 08/19/24 20:22 Dose: Not Given Carvedilol (Carvedilol 6.25 Mg Tablet) 6.25 mg PO DAILY [facility]; Protocol Last Admin: 08/19/24 15:10 Dose: Not Given Docusate Sodium (Docusate Sodium 100 Mg Capsule) 100 mg PO BEDTIME [facility] Last Admin: 08/19/24 20:22 Dose: Not Given Epinephrine (Epinephrine 1 Mg/Ml Vial) 0.3 mg IM Q5M PRN PRN Reason: anaphylaxis Ferrous Sulfate (Ferrous Sulfate 324 Mg Tablet.Dr) 324 mg PO DAILY [facility] Last Admin: 08/19/24 15:11 Dose: Not Given Glucose (Glucose Gel 15 Gm Gel..Gram.) 15 gm PO Q15M PRN; Protocol PRN Reason: per Hypoglycemia Standing Ord. Hydromorphone HCl (Hydromorphone Hcl 1 Mg/Ml Syringe) 1 mg IVPUSH Q3H PRN; Protocol PRN Reason: Pain, Severe (Pain Scale 7-10) Last Admin: 08/20/24 03:53 Dose: 1 mg Hydromorphone HCl (Hydromorphone Hcl 2 Mg Tablet) 2 mg PO Q4H PRN PRN Reason: Pain, Severe (Pain Scale 7-10) Last Admin: 08/18/24 15:27 Dose: 2 mg Piperacillin Sod/Tazobactam (Sod 3.375 gm/ Sodium Chloride) 50 mls @ 100 mls/hr IV Q6H [facility] Last Infusion: 08/20/24 05:58 Dose: Infused Dextrose (D10) 250 mls @ 750 mls/hr IV Q15M PRN; Protocol PRN Reason: per Hypoglycemia Standing Ord. Vancomycin HCl 1,000 mg/ (Sodium Chloride) 270 mls @ 270 mls/hr IV Q12H [facility] Last Infusion: 08/20/24 04:51 Dose: Infused Lactated Ringer's (Lr) 1,000 mls @ 100 mls/hr IVCONT .Q10H [facility] Last Admin: 08/20/24 03:54 Dose: 100 mls/hr Insulin Human Lispro (Insulin Lispro 100 Unit/Ml 3 Ml Vial) 0 unit SUBCUT QIDACHS [facility]; Protocol Last Admin: 08/19/24 20:59 Dose: Not Given Ipratropium [place] (Ipratropium [place] 0.06 % 15 Ml [place]) 2 spray NOSTRIL-B DAILY [facility] Last Admin: 08/19/24 15:37 Dose: 2 spray Levothyroxine Sodium (Levothyroxine Sodium 112 Mcg Tablet) 224 mcg PO DAILY@0600 [facility] Last Admin: 08/20/24 05:10 Dose: 224 mcg Loratadine (Loratadine 10 Mg Tablet) 10 mg PO DAILY [facility] Last Admin: 08/19/24 15:11 Dose: Not Given Montelukast Sodium (Montelukast Sodium 10 Mg Tablet) 10 mg PO BEDTIME [facility] Last Admin: 08/19/24 20:21 Dose: Not Given Non-Formulary Medication (Benralizumab [Fasenra]) 30 mg SUBCUT Q56D [facility] Non-Formulary Medication (Mometasone [Asmanex Hfa]) 2 puff INHALE BID [facility] Nystatin (Nystatin Powder 15 Gm Bottle) 1 appl TOPICAL BID [facility]; Protocol Last Admin: 08/19/24 20:25 Dose: Not Given Omeprazole (Omeprazole 40 Mg Capsule.Dr) 40 mg PO BID@0630,1630 [facility] Last Admin: 08/20/24 05:55 Dose: 40 mg Ondansetron HCl (Ondansetron Hcl 4 Mg/2 Ml Vial) 4 mg IVPUSH Q6H PRN PRN Reason: Nausea and Vomiting Last Admin: 08/20/24 03:58 Dose: 4 mg Pharmacy Consult (Consult Rx Vancomycin Dosing) 1 each MISCELLANE DAILY PRN PRN Reason: Consult order Polyethylene Glycol (Polyethylene Glycol 3350 17 Gm Powd.Pack) 17 gm PO DAILY [facility] Last Admin: 08/19/24 15:41 Dose: Not Given Pyridostigmine [place] (Pyridostigmine [place] 60 Mg Tablet) 60 mg PO QID [facility] Last Admin: 08/19/24 20:22 Dose: Not Given Sodium Chloride (0.9 % Sodium Chloride Flush 3 Ml Syringe) 3 ml IVFLUSH QSHIFT [facility] Last Admin: 08/19/24 23:41 Dose: Not Given Tiotropium [place] (Tiotropium [place] 2.5 Mcg 1 Puff/2.5 Mcg Mist.Inhal) 2 puff INHALE RDAILY [facility] Last Admin: 08/19/24 08:17 Dose: Not Given Tizanidine HCl (Tizanidine Hcl 4 Mg Tablet) 4 mg PO BEDTIME [facility] Last Admin: 08/19/24 20:21 Dose: Not Given Vitamin D (Cholecalciferol (Vitamin D3) 25 Mcg Tablet) 100 mcg PO BEDTIME [facility] Last Admin: 08/19/24 20:21 Dose: Not Given Home Medications ?Medication ?Instructions ?Recorded ?Confirmed ?Last Taken ?Type ipratropium bromide 42 mcg (0.06 2 spray intranasal DAILY 03/11/21 08/18/24 08/17/24 History %) nasal spray benralizumab 30 mg/mL subcutaneous 30 mg subcut Q8W 10/06/22 08/18/24 3 Weeks Ago History syringe (Fasenra) ~07/28/24 nebulizers 03/09/23 08/01/24 Unknown History carvedilol 6.25 mg tablet 6.25 mg PO DAILY for blood pressure 04/15/24 08/18/24 08/17/24 History epinephrine 0.3 mg/0.3 mL 0.3 mg IM Q5M PRN anaphylaxis 04/15/24 08/18/24 Unknown History injection, auto-injector mometasone 200 mcg/actuation HFA 2 puff inhalation BID 04/15/24 08/18/24 08/17/24 History aerosol inhaler (Asmanex HFA) calcium citrate 250 mg PO BID 08/18/24 08/18/24 08/17/24 History hydromorphone 2 mg tablet 2 mg PO Q8H PRN pain 08/18/24 08/18/24 Unknown History insulin aspart 1 sliding scale dose subcut TIDAC 08/18/24 08/18/24 08/17/24 History (niacinamide)(U-100) 100 unit/mL(3 mL) subcutaneous pen (Fiasp FlexTouch U-100 Insulin) insulin degludec 100 unit/mL (3 8 unit subcut DAILY 08/18/24 08/18/24 08/17/24 History mL) subcutaneous pen (Tresiba FlexTouch U-100 insulin) levothyroxine 112 mcg tablet 224 mcg PO DAILY@0600 08/18/24 08/18/24 08/17/24 History (Synthroid) nystatin 100,000 unit/gram topical 1 appl topical BID 08/18/24 08/18/24 08/17/24 History powder (Nystop) omeprazole 40 mg capsule,delayed 40 mg PO BID gastritis 08/18/24 08/18/24 08/17/24 History release pyridostigmine bromide 60 mg tablet 60 mg PO QID 08/18/24 08/18/24 08/17/24 History tiotropium bromide 1.25 2 puff inhalation DAILY 08/18/24 08/18/24 08/17/24 History mcg/actuation mist for inhalation (Spiriva Respimat) tizanidine 2 mg tablet 4 mg PO BEDTIME for muscle spasm 08/18/24 08/18/24 08/17/24 History Physical Exam Vital Signs: Vital Signs: Last Vital Signs Temp 98.2 F 08/20/24 03:27 Pulse 73 08/20/24 03:27 Resp 18 08/20/24 05:27 BP 154/77 H 08/20/24 05:04 Pulse Ox 98 08/20/24 03:27 O2 Del Method Room Air 08/20/24 03:27 O2 Flow Rate 6 08/19/24 12:20 BMI result Body Mass Index 36.0 Const: General: no acute distress Nutritional Appearance: well nourished Orientation/consciousness: patient oriented x3 Resp: Effort & Inspection: normal respiratory effort, no audible wheezes, no cough and no respiratory distress GI: Other: Soft, slightly distended, large pannus, mild tenderness in the left upper quadrant without guarding or rigidity. Rebound tenderness is noted with palpation in the right upper quadrant. A negative Peng sign. Neuro: General: patient oriented x3 Extrem: Other: Dressing on left hand is clean and intact. Residual edema noted in fingers/thumb/forearm Results Labs 08/19/24 07:58 08/19/24 04:35 Labs: Abnormal lab results 08/19/24 08/19/24 08/19/24 Range/Units 04:35 07:44 07:58 WBC 12.4 H (4.8-10.8) X10*3/uL RBC 3.90 L (4.20-5.50) X10*6/uL Hgb 11.1 L (12.0-16.0) g/dl Hct 33.0 L (37.0-47.0) % Plt Count 90 L (160-400) X10*3/uL Carbon Dioxide 20 L (22-29) mmol/L BUN 8 L (9-16) mg/dL POC Glucose 183 H (60-115) mg/dL Random Glucose 180 H (60-115) mg/dL Total Bilirubin 1.6 H (0.0-1.0) mg/dL ALT 39 H (0-31) U/L Total Protein 6.3 L (6.5-8.0) g/dL 08/19/24 08/19/24 08/19/24 Range/Units 14:04 15:57 20:23 WBC (4.8-10.8) X10*3/uL RBC (4.20-5.50) X10*6/uL Hgb (12.0-16.0) g/dl Hct (37.0-47.0) % Plt Count (160-400) X10*3/uL Carbon Dioxide (22-29) mmol/L BUN (9-16) mg/dL POC Glucose 175 H 167 H 150 H (60-115) mg/dL Random Glucose (60-115) mg/dL Total Bilirubin (0.0-1.0) mg/dL ALT (0-31) U/L Total Protein (6.5-8.0) g/dL 08/20/24 Range/Units 03:25 WBC (4.8-10.8) X10*3/uL RBC (4.20-5.50) X10*6/uL Hgb (12.0-16.0) g/dl Hct (37.0-47.0) % Plt Count (160-400) X10*3/uL Carbon Dioxide (22-29) mmol/L BUN (9-16) mg/dL POC Glucose 139 H (60-115) mg/dL Random Glucose (60-115) mg/dL Total Bilirubin (0.0-1.0) mg/dL ALT (0-31) U/L Total Protein (6.5-8.0) g/dL Short CBC 08/19/24 Range/Units 07:58 WBC 12.4 H (4.8-10.8) X10*3/uL Hgb 11.1 L (12.0-16.0) g/dl Hct 33.0 L (37.0-47.0) % Plt Count 90 L (160-400) X10*3/uL BMP 08/19/24 04:35 Sodium 136 Potassium 3.6 D Chloride 105 Carbon Dioxide 20 L BUN 8 L Creatinine 0.75 Calcium 8.4 Liver Function 08/19/24 Range/Units 04:35 Total Bilirubin 1.6 H (0.0-1.0) mg/dL Direct Bilirubin 0.5 (0.0-0.5) mg/dL AST 28 (5-31) U/L ALT 39 H (0-31) U/L Alkaline Phosphatase 98 (39-117) U/L Albumin 3.6 (3.5-5.0) g/dL All other labs normal. Assessment and Plan (1) Abdominal pain: Qualifiers: Abdominal location: left upper quadrant Qualified Code(s): R10.12 - Left upper quadrant pain Status: Acute Plan 53-year-old female patient multiple medical problems presenting with an abscess of the left index finger, subsequently developed abdominal pain initially more generalized now more in the left upper quadrant. Workup with CT abdomen and pelvis is significant only for incidentally noted cystic structure in the tail of the pancreas. Evidence of obstruction or ileus. MRI is recommended further workup the pancreas cystic lesion. No surgical intervention recommended at this time. Would recommend advancing diet as tolerated. Procedures Date of Service Date of Service: 08/20/24
[2024-08-20 07:49] LABS: Glucose, Whole Blood 148 mg/dL (60-115)
[2024-08-20 07:51] LABS: Anion Gap 13 (12-20); Blood Urea Nitrogen 8 mg/dL (9-16); Calcium 8.4 mg/dL (8.4-10.2); Carbon Dioxide 22 mmol/L (22-29); Chloride 106 mmol/L (96-108); Creatinine Clr Calc Pharmacy 109.1; Estimated Glomerular Filt Rate > 60; Glucose Random 152 mg/dL (60-115); Potassium 3.5 mmol/L (3.3-5.1); Sodium 137 mmol/L (135-145)
[2024-08-20] MEDS: polyethylene glycoL 3350 17 GM POWD.PACK PO (08:19)
[2024-08-20] MEDS: Tiotropium Bromide 2.5 mcg 1 PUFF/2.5 MCG MIST.INHAL 2 PUFF INHALE (08:20)
[2024-08-20] MEDS: carvediloL 6.25 MG TABLET PO (08:21)
[2024-08-20] MEDS: pyRIDostigmine bromide 60 MG TABLET PO ×4 (08:21→20:15)
[2024-08-20] MEDS: Loratadine 10 MG TABLET PO (08:21)
[2024-08-20] MEDS: 0.9 % Sodium Chloride Flush 3 ML SYRINGE IVFLUSH ×2 (08:21→16:41)
[2024-08-20] MEDS: Ipratropium Bromide Nas 0.06 % 15 ML SPRAY 2 SPRAY NOSTRIL-B (08:23)
[2024-08-20] MEDS: Nystatin Powder 15 GM BOTTLE 1 APPL TOPICAL (08:23)
[2024-08-20] MEDS: Acetaminophen 325 MG TABLET 975 MG PO (08:30)
[2024-08-20] MEDS: Lactulose 20 GM/30 ML SOLUTION 30 GM PO ×2 (08:41→20:17)
--- NOTE | 2024-08-20 09:02 | P.PNGI_ITS ---
Subjective Subjective Date of Service: 08/20/24 Interval History: Seen and evaluated at bedside. Reports improvement in abdominal discomfort since passing a bowel movement. Able to tolerate clear liquids without any issues. CT scan reviewed. Critical Care Time (minutes): 0 Physical Exam 2 Vital Signs: Vital Signs: Last Vital Signs Temp 98.3 F 08/20/24 07:52 Pulse 61 08/20/24 08:23 Resp 18 08/20/24 08:23 BP 174/81 H 08/20/24 07:52 Pulse Ox 93 08/20/24 07:52 O2 Del Method Room Air 08/20/24 07:52 O2 Flow Rate 6 08/19/24 12:20 BMI result Body Mass Index 36.0 Middle-aged female No acute distress Nonicteric Abdomen soft, nondistended, nontender Objective Data Labs 08/19/24 07:58 08/20/24 07:17 Labs: Laboratory Results - last 24 hr 08/19/24 08/19/24 08/19/24 14:04 15:57 20:23 Sodium Potassium Chloride Carbon Dioxide Anion Gap BUN Creatinine Estim Creat Clear Calc Estimated GFR POC Glucose 175 H 167 H 150 H Random Glucose Calcium 08/20/24 08/20/24 08/20/24 03:25 07:17 07:45 Sodium 137 Potassium 3.5 Chloride 106 Carbon Dioxide 22 Anion Gap 13 BUN 8 L Creatinine 0.66 Estim Creat Clear Calc 109.1 Estimated GFR > 60 POC Glucose 139 H 148 H Random Glucose 152 H Calcium 8.4 ABG Interpretation: 1. A cause for the patient's acute abdominal pain has not been found. 2. No evidence of bowel obstruction or acute diverticulitis 3. Incidental note made of hepatic steatosis, splenomegaly, small amount of free intraperitoneal fluid and a small cystic mass in the tail the pancreas. MRI/MRCP is recommended for further evaluation. Microbiology Microbiology Results: Microbiology 08/19/24 Unknown Finger Left Index Gram Stain - Final 08/19/24 Unknown Finger Left Index Routine Culture - Preliminary Culture in progress. 08/19/24 Unknown Finger Left Index Gram Stain - Final 08/19/24 Unknown Finger Left Index Routine Culture - Preliminary No growth to date. 08/17/24 23:11 Blood - Venous Blood Culture - Preliminary No growth after 48 hours. 08/17/24 21:25 Blood - Venous Blood Culture - Preliminary No growth after 48 hours. 08/19/24 Unknown Finger Gram Stain - Final Procedures Date of Service Date of Service: 08/20/24 Progress Note: A&P Assessment and plan (1) Abdominal pain: Status: Acute (2) Obstipation: Status: Acute (3) Pancreatic cyst: Status: Acute Plan Doing better since passing bowel movement. Anticipate further improvement as she regulates her bowels. Can advance diet as tolerated. Will need non-urgent MRI pancreas protocol to follow up on 1.2cm panc tail cyst Patient has an outpatient follow up with Dr Delarosa on 08/26. Time Spent With Patient Time: Total time managing care of this patient today ____ minutes. Quality Stroke Does the patient have a stroke diagnosis?: No VTE Prior VTE?: No VTE Risk Level:: Medical - low VTE Device Contraindication: N/A - Device Ordered VTE Drug Contraindication: Treatment Not Indicated
--- NOTE | 2024-08-20 10:59 | HO.POSTANES ---
Post Anesthesia Evaluation Post Anesthesia Evaluation Date of Service: 08/19/24 Vital Signs: Vital Signs Temp Pulse Resp BP Pulse Ox O2 Del Method 08/20/24 09:38 65 155/70 H 08/20/24 08:23 61 18 08/20/24 07:52 98.3 F 60 19 174/81 H 93 Room Air 08/20/24 05:27 18 08/20/24 05:04 154/77 H 08/20/24 03:53 18 08/20/24 03:27 98.2 F 73 17 170/90 H 98 Room Air 08/19/24 23:30 98.3 F 71 16 157/77 H 96 Room Air Anesthesia: General Mental Status: Awake Pain Control: Satisfactory Nausea/Vomiting: None Hydration: Adequate Anesthesia-Related Issues: No Anes. Related Issues
[2024-08-20 11:32] LABS: Glucose, Whole Blood 192 mg/dL (60-115)
[2024-08-20] MEDS: Insulin Lispro 100 UNIT/ML 3 ML VIAL SUBCUT ×2 (11:45→16:40)
--- NOTE | 2024-08-20 12:01 | MHC.CM.PN ---
PT LIVES WITH MULTIPLE FAMILY MEMBERS IS INDEPENDENT HAS OWN RIDE HOME DC PLAN HOME NO SERVICES
[2024-08-20 12:04] LABS: Alanine Aminotransferase 25 U/L (0-31); Albumin Level 3.4 g/dL (3.5-5.0); Alkaline Phosphatase 87 U/L (39-117); Aspartate Amino Transferase 17 U/L (5-31); Bilirubin Direct 0.4 mg/dL (0.0-0.5); Bilirubin Total 1.2 mg/dL (0.0-1.0); Lipase 15 U/L (8-78)
--- NOTE | 2024-08-20 13:05 | HO.PM.IMPN ---
Subjective Subjective Date of Service: 08/20/24 Interval History: abd pain Review of Systems seen by Gi abd pain improving denies Physical Exam Vital Signs: Vital Signs: Last Vital Signs Temp 98.3 F 08/20/24 11:35 Pulse 57 08/20/24 11:35 Resp 18 08/20/24 11:35 BP 171/81 H 08/20/24 11:35 Pulse Ox 96 08/20/24 11:35 O2 Del Method Room Air 08/20/24 11:35 O2 Flow Rate 6 08/19/24 12:20 BMI result Body Mass Index 36.0 Objective Data Active Medications Acetaminophen (Acetaminophen 325 Mg Tablet) 975 mg PO Q6H PRN PRN Reason: Pain, Mild (Pain Scale 1-3), fever or headache Last Admin: 08/20/24 08:30 Dose: 975 mg Documented By: ELO Albuterol Sulfate (Albuterol Sulfate 90 Mcg 8 Gm Inhaler) 2 puff INHALE Q6H PRN PRN Reason: shortness of breath or wheezing Atorvastatin Calcium (Atorvastatin Calcium 40 Mg Tablet) 40 mg PO BEDTIME [facility] Last Admin: 08/19/24 20:21 Dose: Not Given Documented By: TORO Non-Admin Reason: Patient Refused Calcium Carbonate (Calcium Oyster Shell Elemental 500 Mg Tablet) 250 mg PO BID [facility] Last Admin: 08/20/24 08:22 Dose: Not Given Documented By: ELO Non-Admin Reason: Patient Refused Carvedilol (Carvedilol 6.25 Mg Tablet) 6.25 mg PO DAILY [facility]; Protocol Last Admin: 08/20/24 08:21 Dose: 6.25 mg Documented By: ELO Docusate Sodium (Docusate Sodium 100 Mg Capsule) 100 mg PO BEDTIME [facility] Last Admin: 08/19/24 20:22 Dose: Not Given Documented By: TORO Non-Admin Reason: Patient Refused Epinephrine (Epinephrine 1 Mg/Ml Vial) 0.3 mg IM Q5M PRN PRN Reason: anaphylaxis Ferrous Sulfate (Ferrous Sulfate 324 Mg Tablet.Dr) 324 mg PO DAILY [facility] Last Admin: 08/20/24 08:22 Dose: Not Given Documented By: ELO Non-Admin Reason: Patient Refused Glucose (Glucose Gel 15 Gm Gel..Gram.) 15 gm PO Q15M PRN; Protocol PRN Reason: per Hypoglycemia Standing Ord. Hydromorphone HCl (Hydromorphone Hcl 1 Mg/Ml Syringe) 1 mg IVPUSH Q3H PRN; Protocol PRN Reason: Pain, Severe (Pain Scale 7-10) Last Admin: 08/20/24 03:53 Dose: 1 mg Documented By: TORO Hydromorphone HCl (Hydromorphone Hcl 2 Mg Tablet) 2 mg PO Q4H PRN PRN Reason: Pain, Severe (Pain Scale 7-10) Last Admin: 08/18/24 15:27 Dose: 2 mg Documented By: LIZANDRO Piperacillin Sod/Tazobactam (Sod 3.375 gm/ Sodium Chloride) 50 mls @ 100 mls/hr IV Q6H [facility] Last Infusion: 08/20/24 12:27 Dose: Infused Documented By: ELO Dextrose (D10) 250 mls @ 750 mls/hr IV Q15M PRN; Protocol PRN Reason: per Hypoglycemia Standing Ord. Vancomycin HCl 1,000 mg/ (Sodium Chloride) 270 mls @ 270 mls/hr IV Q12H [facility] Last Infusion: 08/20/24 04:51 Dose: Infused Documented By: TORO Lactated Ringer's (Lr) 1,000 mls @ 100 mls/hr IVCONT .Q10H [facility] Last Admin: 08/20/24 03:54 Dose: 100 mls/hr Documented By: TORO Insulin Human Lispro (Insulin Lispro 100 Unit/Ml 3 Ml Vial) 0 unit SUBCUT QIDACHS [facility]; Protocol Last Admin: 08/20/24 11:45 Dose: 2 unit Documented By: ELO Ipratropium [place] (Ipratropium [place] Maynor 0.06 % 15 Ml [place]) 2 spray NOSTRIL-B DAILY [facility] Last Admin: 08/20/24 08:23 Dose: 2 spray Documented By: ELO Lactulose (Lactulose 20 Gm/30 Ml Solution) 30 gm PO BID [facility] Levothyroxine Sodium (Levothyroxine Sodium 112 Mcg Tablet) 224 mcg PO DAILY@0600 [facility] Last Admin: 08/20/24 05:10 Dose: 224 mcg Documented By: TORO Loratadine (Loratadine 10 Mg Tablet) 10 mg PO DAILY [facility] Last Admin: 08/20/24 08:21 Dose: 10 mg Documented By: ELO Montelukast Sodium (Montelukast Sodium 10 Mg Tablet) 10 mg PO BEDTIME [facility] Last Admin: 08/19/24 20:21 Dose: Not Given Documented By: TORO Non-Admin Reason: Patient Refused Non-Formulary Medication (Benralizumab [Fasenra]) 30 mg SUBCUT Q56D [facility] Non-Formulary Medication (Mometasone [Asmanex Hfa]) 2 puff INHALE BID [facility] Nystatin (Nystatin Powder 15 Gm Bottle) 1 appl TOPICAL BID [facility]; Protocol Last Admin: 08/20/24 08:23 Dose: 1 appl Documented By: ELO Ondansetron HCl (Ondansetron Hcl 4 Mg/2 Ml Vial) 4 mg IVPUSH Q6H PRN PRN Reason: Nausea and Vomiting Last Admin: 08/20/24 03:58 Dose: 4 mg Documented By: TORO Pantoprazole Sodium (Pantoprazole Sodium 40 Mg/10 Ml Vial) 40 mg IVPUSH BID@0630,1630 [facility] Pharmacy Consult (Consult Rx Vancomycin Dosing) 1 each MISCELLANE DAILY PRN PRN Reason: Consult order Polyethylene Glycol (Polyethylene Glycol 3350 17 Gm Powd.Pack) 17 gm PO DAILY [facility] Last Admin: 08/20/24 08:19 Dose: 17 gm Documented By: ELO Pyridostigmine [place] (Pyridostigmine [place] 60 Mg Tablet) 60 mg PO QID [facility] Last Admin: 08/20/24 08:21 Dose: 60 mg Documented By: ELO Sodium Chloride (0.9 % Sodium Chloride Flush 3 Ml Syringe) 3 ml IVFLUSH QSHIFT [facility] Last Admin: 08/20/24 08:21 Dose: 3 ml Documented By: ELO Tiotropium [place] (Tiotropium [place] 2.5 Mcg 1 Puff/2.5 Mcg Mist.Inhal) 2 puff INHALE RDAILY [facility] Last Admin: 08/20/24 08:20 Dose: 2 puff Documented By: DHRUV Tizanidine HCl (Tizanidine Hcl 4 Mg Tablet) 4 mg PO BEDTIME [facility] Last Admin: 08/19/24 20:21 Dose: Not Given Documented By: TORO Non-Admin Reason: Patient Refused Vitamin D (Cholecalciferol (Vitamin D3) 25 Mcg Tablet) 100 mcg PO BEDTIME [facility] Last Admin: 08/19/24 20:21 Dose: Not Given Documented By: TORO Non-Admin Reason: Patient Refused Labs 08/19/24 07:58 08/20/24 07:17 Labs: Laboratory Results - last 24 hr 08/19/24 08/19/24 08/19/24 14:04 15:57 20:23 Anion Gap Estim Creat Clear Calc Estimated GFR POC Glucose 175 H 167 H 150 H Random Glucose Calcium Total Bilirubin Direct Bilirubin AST ALT Alkaline Phosphatase Total Protein Albumin Lipase 08/20/24 08/20/24 08/20/24 03:25 07:17 07:45 Anion Gap 13 Estim Creat Clear Calc 109.1 Estimated GFR > 60 POC Glucose 139 H 148 H Random Glucose 152 H Calcium 8.4 Total Bilirubin 1.2 H Direct Bilirubin 0.4 AST 17 ALT 25 Alkaline Phosphatase 87 Total Protein 6.0 L Albumin 3.4 L Lipase 15 08/20/24 11:12 Anion Gap Estim Creat Clear Calc Estimated GFR POC Glucose 192 H Random Glucose Calcium Total Bilirubin Direct Bilirubin AST ALT Alkaline Phosphatase Total Protein Albumin Lipase Microbiology Microbiology Results: Microbiology 08/19/24 Unknown Gram Stain - Final Finger Routine Culture - Preliminary Culture in progress. Anaerobic Culture - Preliminary Culture in progress. 08/19/24 Unknown Gram Stain - Final Finger Left Index Routine Culture - Preliminary Culture in progress. 08/19/24 Unknown Gram Stain - Final Finger Left Index Routine Culture - Preliminary No growth to date. 08/17/24 23:11 Blood Culture - Preliminary Blood - Venous No growth after 48 hours. 08/17/24 21:25 Blood Culture - Preliminary Blood - Venous No growth after 48 hours. Assessment and Plan (1) Tenosynovitis of finger: Status: Acute Assessment and Plan: 53 y/o woman admitted with: Severe sepsis due to left index finger tenosynovitis , associated abscess?: hand swelling/erythema seems similar blood cultures pending vanco trough 16.5 Orthopedic consult -s/p surgical i&D on 08/19/24 . Continueiv Zosyn and vancomycin. constipation , has some nausea added zofran ,miralex and colace. ct abd:Incidental note made of hepatic steatosis, splenomegaly, small amount of free intraperitoneal fluid and a small cystic mass in the tail the pancreas. MRI/MRCP is recommended for further evaluation. seen by GI -added ppi , npo past midnight for possible egd non-urgent MRI pancreas protocol to follow up on 1.2cm panc tail cyst Patient has an outpatient follow up with Dr Delarosa on 08/26. Hyperlipidemia. Continue statin. Essential hypertension-elevated start carvedilol hold losartan . Chronic pain syndrome on chronic opiates. Continue Dilaudid. Hypothyroidism. Continue Synthroid. Diabetes mellitus: fs flacuating moniter Insulin sliding scale. Liver cirrhosis due to BENEDICT with portal hypertension/history of esophageal varices. Compensated. No bleeding reported. Thrombocytopenia. Chronic due to liver cirrhosis. Continue to monitor. Obesity, class III. BMI 36.0 kg/m2. encouraged to lose Weight loss, cut down calories . Allergy rhinitis and asthma. Continue Singulair and inhalers. 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 DVT prophylaxis: SCDs due to thrombocytopenia Code status: Full Ongoing hospitalization need: severe sepsis due to left index finger tenosynovitis -need iv antibiotics ,blood cultures Quality Stroke Does the patient have a stroke diagnosis?: No VTE Prior VTE?: No VTE Risk Level:: Medical - low VTE Device Contraindication: N/A - Device Ordered VTE Drug Contraindication: Treatment Not Indicated
[2024-08-20] MEDS: amLODIPine Besylate 2.5 MG TABLET PO (13:43)
[2024-08-20 13:46] LABS: Vancomycin Random < 2.0 mcg/mL (15-20)
--- NOTE | 2024-08-20 13:54 | HE.PHANOTE ---
RE: ariadne Yesterday patient was in surgery so dose was given late; level today came back at <2 mg/L. Increased dose to 1250mg Q8H with predicted trough of 7.3, AUC of 372 mg/L. Want to be cautious of dose dumping yung to patient BMI of 36. Next level to be drawn after 3 doses 08/21 @1300
[2024-08-20] MEDS: vancomycin HCL 1,250 MG in 0.9 % Sodium Chloride 250 ML 166.67 MG IV ×2 (15:06→22:55)
[2024-08-20 16:14] LABS: Glucose, Whole Blood 158 mg/dL (60-115)
[2024-08-20] MEDS: Pantoprazole Sodium 40 MG/10 ML VIAL IVPUSH (16:43)
[2024-08-20] MEDS: HYDROmorphone HCl 2 MG TABLET PO (18:25)
[2024-08-20] MEDS: Atorvastatin Calcium 40 MG TABLET PO (20:15)
[2024-08-20] MEDS: Montelukast Sodium 10 MG TABLET PO (20:15)
[2024-08-20 20:28] LABS: Glucose, Whole Blood 144 mg/dL (60-115)
--- NOTE | 2024-08-20 20:32 | PM.PNORT ---
Subjective Subjective Date of Service: 08/20/24 Interval history: 53-year-old female admitted to the hospital for chronic abscess of left index finger Status post irrigation and debridement of left index finger and flexor tenosynovectomy of left index finger Patient was resting comfortably in bed this morning Pain well managed No acute events overnight No other acute complaints or concerns at this time Physical Exam Vital Signs: Vital Signs: Last Vital Signs Temp 98.4 F 08/20/24 19:22 Pulse 57 08/20/24 19:22 Resp 18 08/20/24 19:22 BP 152/74 H 08/20/24 19:22 Pulse Ox 95 08/20/24 19:22 O2 Del Method Room Air 08/20/24 19:22 O2 Flow Rate 6 08/19/24 12:20 BMI result Body Mass Index 36.0 Extrem: Other: Patient is alert, oriented, and in no acute distress. Neuro: Normal sensation of the tips of all digits of the left hand Vascular: Cap refill brisk Pain: Patient reports some mild tenderness to palpation about the left index finger, improved from prior to surgery ROM: Patient is able to get close to making a closed fist and extending all digits of the left hand fully and without difficulty Skin: Drain in place Incision sites clean and intact, no active drainage at this time General: Erythema improved, no ecchymosis Psych: Appears grossly normal Affect normal Attitude cooperative Procedures Date of Service Date of Service: 08/20/24 Progress Note: A&P Assessment and plan (1) Cellulitis of finger of left hand: Status: Acute (2) Tenosynovitis of finger: Status: Acute Plan 1. Abscess of left index finger 2. 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 Quality Stroke Does the patient have a stroke diagnosis?: No VTE Prior VTE?: No VTE Risk Level:: Medical - low VTE Device Contraindication: N/A - Device Ordered VTE Drug Contraindication: Treatment Not Indicated
[2024-08-20] MEDS: Dextrose 5 % and 0.9 % NaCl 1,000 ML 100 ML IVCONT (21:42)
[2024-08-21] VITALS (7 sets, daily range): BP systolic 153–163; BP diastolic 72–81; PULSE 59–92; RESP 14–17; TEMP 36.1–37.2; O2SAT 95–97
[2024-08-21] MEDS: Levothyroxine Sodium 112 MCG TABLET 224 MCG PO (05:25)
[2024-08-21] MEDS: Piperacillin Sodium/Tazobactam 3.375 GM in 0.9 % Sodium Chloride 50 ML IV ×2 (05:27→11:42)
[2024-08-21] MEDS: HYDROmorphone HCl 2 MG TABLET PO ×3 (05:32→20:23)
[2024-08-21] MEDS: Pantoprazole Sodium 40 MG/10 ML VIAL IVPUSH (06:04)
[2024-08-21] MEDS: vancomycin HCL 1,250 MG in 0.9 % Sodium Chloride 250 ML 166.67 MG IV (06:22)
--- NOTE | 2024-08-21 07:00 | P.PNIM_ITS ---
Subjective Subjective Date of Service: 08/21/24 Interval History: Being followed for left index finger tenosynovitis/abscess with sepsis, for abdominal pain, is NPO for upper endoscopy today. Complaining of diarrhea overnight now resolved likely due to stool softeners. Complaining of lower abdominal discomfort, no nausea no vomiting. Left index finger pain and swelling is better, denies fever, no chills. Review of Systems All other symptoms reviewed and are negative. Physical Exam 2 Vital Signs: Vital Signs: Last Vital Signs Temp 97.8 F 08/21/24 03:33 Pulse 62 08/21/24 03:33 Resp 16 08/21/24 03:33 BP 163/74 H 08/21/24 03:33 Pulse Ox 97 08/21/24 03:33 O2 Del Method Room Air 08/21/24 03:33 O2 Flow Rate 6 08/19/24 12:20 BMI result Body Mass Index 36.0 Const: Other: General awake alert x3, resting comfortably in no acute distress. Necksupple no JVD. CVS regular rate rhythm, Respiratory lungs clear to auscultation, no respiratory distress, no wheeze, no rhonchi. Gastrointestinal abdomen soft, obese, bowel sounds audible, no guarding , no rigidity. Extremities left index finger dressing in place, as per ortho incision site clean and intact, no drainage noted, able to close fist and extend all digits of left hand Neuro non focal Skin no rash Psych appropriate affect Objective Data Active Medications Acetaminophen (Acetaminophen 325 Mg Tablet) 975 mg PO Q6H PRN PRN Reason: Pain, Mild (Pain Scale 1-3), fever or headache Last Admin: 08/20/24 08:30 Dose: 975 mg Documented By: ELO Albuterol Sulfate (Albuterol Sulfate 90 Mcg 8 Gm Inhaler) 2 puff INHALE Q6H PRN PRN Reason: shortness of breath or wheezing Amlodipine Besylate (Amlodipine Besylate 2.5 Mg Tablet) 2.5 mg PO DAILY [facility]; Protocol Last Admin: 08/20/24 13:43 Dose: 2.5 mg Documented By: ELO Atorvastatin Calcium (Atorvastatin Calcium 40 Mg Tablet) 40 mg PO BEDTIME [facility] Last Admin: 08/20/24 20:15 Dose: 40 mg Documented By: TORO Calcium Carbonate (Calcium Oyster Shell Elemental 500 Mg Tablet) 250 mg PO BID [facility] Last Admin: 08/20/24 20:15 Dose: Not Given Documented By: TORO Non-Admin Reason: Patient Refused Carvedilol (Carvedilol 6.25 Mg Tablet) 6.25 mg PO DAILY [facility]; Protocol Last Admin: 08/20/24 08:21 Dose: 6.25 mg Documented By: ELO Docusate Sodium (Docusate Sodium 100 Mg Capsule) 100 mg PO BEDTIME [facility] Last Admin: 08/20/24 20:15 Dose: Not Given Documented By: TORO Non-Admin Reason: Patient Refused Epinephrine (Epinephrine 1 Mg/Ml Vial) 0.3 mg IM Q5M PRN PRN Reason: anaphylaxis Ferrous Sulfate (Ferrous Sulfate 324 Mg Tablet.Dr) 324 mg PO DAILY [facility] Last Admin: 08/20/24 08:22 Dose: Not Given Documented By: ELO Non-Admin Reason: Patient Refused Glucose (Glucose Gel 15 Gm Gel..Gram.) 15 gm PO Q15M PRN; Protocol PRN Reason: per Hypoglycemia Standing Ord. Hydromorphone HCl (Hydromorphone Hcl 1 Mg/Ml Syringe) 1 mg IVPUSH Q3H PRN; Protocol PRN Reason: Pain, Severe (Pain Scale 7-10) Last Admin: 08/20/24 03:53 Dose: 1 mg Documented By: TORO Hydromorphone HCl (Hydromorphone Hcl 2 Mg Tablet) 2 mg PO Q4H PRN PRN Reason: Pain, Severe (Pain Scale 7-10) Last Admin: 08/21/24 05:32 Dose: 2 mg Documented By: TORO Piperacillin Sod/Tazobactam (Sod 3.375 gm/ Sodium Chloride) 50 mls @ 100 mls/hr IV Q6H [facility] Last Infusion: 08/21/24 05:57 Dose: Infused Documented By: TORO Dextrose (D10) 250 mls @ 750 mls/hr IV Q15M PRN; Protocol PRN Reason: per Hypoglycemia Standing Ord. Vancomycin HCl 1,250 mg/ (Sodium Chloride) 250 mls @ 166.667 mls/hr IV Q8H [facility] Last Admin: 08/21/24 06:22 Dose: 166.67 mls/hr Documented By: TORO Dextrose/Sodium Chloride (D5ns) 1,000 mls @ 100 mls/hr IVCONT .Q10H [facility] Last Infusion: 08/21/24 00:38 Dose: 100 mls/hr Documented By: TORO Insulin Human Lispro (Insulin Lispro 100 Unit/Ml 3 Ml Vial) 0 unit SUBCUT QIDACHS [facility]; Protocol Last Admin: 08/20/24 20:32 Dose: Not Given Documented By: TORO Non-Admin Reason: No Insulin Coverage Ipratropium [place] (Ipratropium [place] Maynor 0.06 % 15 Ml [place]) 2 spray NOSTRIL-B DAILY [facility] Last Admin: 08/20/24 08:23 Dose: 2 spray Documented By: ELO Lactulose (Lactulose 20 Gm/30 Ml Solution) 30 gm PO BID [facility] Last Admin: 08/20/24 20:17 Dose: 30 gm Documented By: TORO Levothyroxine Sodium (Levothyroxine Sodium 112 Mcg Tablet) 224 mcg PO DAILY@0600 [facility] Last Admin: 08/21/24 05:25 Dose: 224 mcg Documented By: TORO Loratadine (Loratadine 10 Mg Tablet) 10 mg PO DAILY [facility] Last Admin: 08/20/24 08:21 Dose: 10 mg Documented By: ELO Montelukast Sodium (Montelukast Sodium 10 Mg Tablet) 10 mg PO BEDTIME [facility] Last Admin: 08/20/24 20:15 Dose: 10 mg Documented By: TOOR Non-Formulary Medication (Benralizumab [Fasenra]) 30 mg SUBCUT Q56D [facility] Non-Formulary Medication (Mometasone [Asmanex Hfa]) 2 puff INHALE BID [facility] Nystatin (Nystatin Powder 15 Gm Bottle) 1 appl TOPICAL BID [facility]; Protocol Last Admin: 08/20/24 20:19 Dose: Not Given Documented By: TORO Non-Admin Reason: Patient Refused Ondansetron HCl (Ondansetron Hcl 4 Mg/2 Ml Vial) 4 mg IVPUSH Q6H PRN PRN Reason: Nausea and Vomiting Last Admin: 08/20/24 03:58 Dose: 4 mg Documented By: TORO Pantoprazole Sodium (Pantoprazole Sodium 40 Mg/10 Ml Vial) 40 mg IVPUSH BID@0630,1630 [facility] Last Admin: 08/21/24 06:04 Dose: 40 mg Documented By: TORO Pharmacy Consult (Consult Rx Vancomycin Dosing) 1 each MISCELLANE DAILY PRN PRN Reason: Consult order Polyethylene Glycol (Polyethylene Glycol 3350 17 Gm Powd.Pack) 17 gm PO DAILY [facility] Last Admin: 08/20/24 08:19 Dose: 17 gm Documented By: ELO Pyridostigmine [place] (Pyridostigmine [place] 60 Mg Tablet) 60 mg PO QID [facility] Last Admin: 08/20/24 20:15 Dose: 60 mg Documented By: TORO Sodium Chloride (0.9 % Sodium Chloride Flush 3 Ml Syringe) 3 ml IVFLUSH QSHIFT [facility] Last Admin: 08/20/24 23:16 Dose: Not Given Documented By: TORO Non-Admin Reason: IV Running Tiotropium [place] (Tiotropium [place] 2.5 Mcg 1 Puff/2.5 Mcg Mist.Inhal) 2 puff INHALE RDAILY [facility] Last Admin: 08/20/24 08:20 Dose: 2 puff Documented By: DHRUV Tizanidine HCl (Tizanidine Hcl 4 Mg Tablet) 4 mg PO BEDTIME [facility] Last Admin: 08/20/24 22:15 Dose: Not Given Documented By: TORO Non-Admin Reason: Patient Refused Vitamin D (Cholecalciferol (Vitamin D3) 25 Mcg Tablet) 100 mcg PO BEDTIME [facility] Last Admin: 08/20/24 20:16 Dose: Not Given Documented By: TORO Non-Admin Reason: Patient Refused Labs 08/19/24 07:58 08/21/24 06:28 Labs: Laboratory Results - last 24 hr 08/20/24 08/20/24 08/20/24 07:17 07:45 11:12 Anion Gap 13 Estim Creat Clear Calc 109.1 Estimated GFR > 60 POC Glucose 148 H 192 H Random Glucose 152 H Calcium 8.4 Total Bilirubin 1.2 H Direct Bilirubin 0.4 AST 17 ALT 25 Alkaline Phosphatase 87 Total Protein 6.0 L Albumin 3.4 L Lipase 15 Random Vancomycin 08/20/24 08/20/24 08/20/24 13:14 16:07 20:23 Anion Gap Estim Creat Clear Calc Estimated GFR POC Glucose 158 H 144 H Random Glucose Calcium Total Bilirubin Direct Bilirubin AST ALT Alkaline Phosphatase Total Protein Albumin Lipase Random Vancomycin < 2.0 L Microbiology Microbiology Results: Microbiology 08/19/24 Unknown Gram Stain - Final Finger Routine Culture - Preliminary Culture in progress. Anaerobic Culture - Preliminary Culture in progress. 08/19/24 Unknown Gram Stain - Final Finger Left Index Routine Culture - Preliminary Culture in progress. 08/19/24 Unknown Gram Stain - Final Finger Left Index Routine Culture - Preliminary No growth to date. Assessment and Plan (1) Pancreatic cyst: Status: Acute (2) Obstipation: Status: Acute (3) Abdominal pain: Status: Acute (4) Tenosynovitis of finger: Status: Acute Plan 53 y/o woman admitted with: Severe sepsis due to left index finger tenosynovitis /abscess: s/p i&D on 08/19/24 by Orthopedic surgery and flexor tenosynovectomy of left index finger Incision site clean and intact, no drainage, persistent mild swelling volar aspect of left index finger, decreased erythema blood cultures showed no growth x48h, wound culture growing staph aureus, follow final sensitivities vanco trough 16.5 Continue iv vancomycin started 08/17. DC Zosyn Abdominal pain/nausea/ Constipation Constipation resolved with stool softeners now having diarrhea will hold all bowel meds Ct abd showed hepatic steatosis, splenomegaly, small amount of free intra peritoneal fluid and a small cystic mass in the tail the pancreas, seen by GI outpatient nonurgent MRI pancreas protocol recommended Due to abdominal pain patient was scheduled for upper endoscopy by Dr. Gerardo but the procedure was canceled Will resume diabetic diet and keep patient NPO if patient noted to have epigastric pain/ nausea then will obtain upper GI series otherwise will discharge home. Hyperlipidemia. Continue statin. Essential hypertension-continue Coreg and resume home dose of losartan Chronic pain syndrome on chronic opiates. On intravenous and by mouth Dilaudid, will DC IV Dilaudid. Hypothyroidism. Continue Synthroid. Diabetes mellitus: Continue diabetic diet and Insulin sliding scale, Tresiba 8 units daily on hold. Liver cirrhosis due to BENEDICT with portal hypertension/history of esophageal varices and thrombocytopenia. Compensated. No bleeding reported. Obesity, class III. BMI 36.0 kg/m2. encouraged to lose Weight loss, cut down calories . Allergy rhinitis and moderate persistent asthma. Continue Singulair and Fasenra. In my clinical judgment patient require continued inpatient hospitalization for management of left index finger tenosynovitis, undergoing upper endoscopy and pain management. Quality Stroke Does the patient have a stroke diagnosis?: No VTE Prior VTE?: No VTE Risk Level:: Medical - low VTE Device Contraindication: N/A - Device Ordered VTE Drug Contraindication: Treatment Not Indicated
[2024-08-21 07:16] LABS: Creatinine Clr Calc Pharmacy 105.8; Estimated Glomerular Filt Rate > 60
[2024-08-21 07:32] LABS: Glucose, Whole Blood 188 mg/dL (60-115)
[2024-08-21] MEDS: Insulin Lispro 100 UNIT/ML 3 ML VIAL SUBCUT ×3 (07:42→20:19)
[2024-08-21] MEDS: Ipratropium Bromide Nas 0.06 % 15 ML SPRAY 2 SPRAY NOSTRIL-B (07:44)
[2024-08-21] MEDS: pyRIDostigmine bromide 60 MG TABLET PO ×4 (07:45→20:22)
[2024-08-21] MEDS: carvediloL 6.25 MG TABLET PO (07:45)
[2024-08-21] MEDS: amLODIPine Besylate 2.5 MG TABLET PO (07:45)
[2024-08-21] MEDS: Loratadine 10 MG TABLET PO (07:45)
[2024-08-21] MEDS: Nystatin Powder 15 GM BOTTLE 1 APPL TOPICAL ×2 (07:49→20:24)
--- NOTE | 2024-08-21 08:25 | PM.PNORT ---
Subjective Subjective Date of Service: 08/21/24 Interval history: 53-year-old female admitted to the hospital for chronic abscess of left index finger Postop day 2 Status post irrigation and debridement of left index finger and flexor tenosynovectomy of left index finger Patient was resting comfortably in bed this morning Pain well managed No acute events overnight No other acute complaints or concerns at this time Physical Exam Vital Signs: Vital Signs: Last Vital Signs Temp 97.4 F 08/21/24 07:30 Pulse 59 08/21/24 07:30 Resp 16 08/21/24 07:30 BP 156/72 H 08/21/24 07:30 Pulse Ox 95 08/21/24 07:30 O2 Del Method Room Air 08/21/24 07:30 O2 Flow Rate 6 08/19/24 12:20 BMI result Body Mass Index 36.0 Extrem: Other: Patient is alert, oriented, and in no acute distress. Neuro: Normal sensation of the tips of all digits of the left hand Vascular: Cap refill brisk Pain: Patient reports some mild tenderness to palpation about the left index finger, improved from prior to surgery ROM: Patient is able to get close to making a closed fist and extending all digits of the left hand fully and without difficulty Skin: Incision sites clean and intact, no active drainage at this time General: There is noted to be some [id number] edema of the volar aspect of the left index finger Erythema improved, no ecchymosis Psych: Appears grossly normal Affect normal Attitude cooperative Procedures Date of Service Date of Service: 08/21/24 Progress Note: A&P Assessment and plan (1) Cellulitis of finger of left hand: Status: Acute (2) Tenosynovitis of finger: Status: Acute Plan 1. Abscess of left index finger 2. 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 Quality Stroke Does the patient have a stroke diagnosis?: No VTE Prior VTE?: No VTE Risk Level:: Medical - low VTE Device Contraindication: N/A - Device Ordered VTE Drug Contraindication: Treatment Not Indicated
[2024-08-21] MEDS: Tiotropium Bromide 2.5 mcg 1 PUFF/2.5 MCG MIST.INHAL 2 PUFF INHALE (08:28)
[2024-08-21 11:38] LABS: Glucose, Whole Blood 200 mg/dL (60-115)
[2024-08-21] MEDS: Dextrose 5 % and 0.9 % NaCl 1,000 ML 100 ML IVCONT (11:54)
[2024-08-21] MEDS: Losartan Potassium 25 MG TABLET PO (12:52)
[2024-08-21 13:40] LABS: Vancomycin Random < 2.0 mcg/mL (15-20)
--- NOTE | 2024-08-21 14:54 | PC.NURSE ---
Pt being evaluated at bedside by anesthesia and it was determined that patient is on Trulicity at home. Should be on hold for one week. She will be postponed for this procedure today. Dr. Delarosa at bedside discussing options for diagnostics.
--- NOTE | 2024-08-21 14:58 | P.PNGI_ITS ---
Subjective Subjective Date of Service: 08/21/24 Interval History: improvement in symptoms still has nausea moving bowels, more loose now no vomiting or fevers Critical Care Time (minutes): 0 Physical Exam 2 Vital Signs: Vital Signs: Last Vital Signs Temp 98.9 F 08/21/24 14:47 Pulse 60 08/21/24 14:47 Resp 16 08/21/24 14:47 BP 153/80 H 08/21/24 14:47 Pulse Ox 97 08/21/24 14:47 O2 Del Method Room Air 08/21/24 14:47 O2 Flow Rate 6 08/19/24 12:20 BMI result Body Mass Index 36.0 EXAM: GENERAL: The patient is well developed and nontoxic. VITAL SIGNS:see workflow HEENT: Nonicteric sclerae, PERRLA, EOMI. Oropharynx clear. Moist mucous membranes. Conjunctivae appear well perfused. No thyroid mass. CHEST: Chest wall is nontender. HEART: Regular rate and rhythm without murmurs. LUNGS: Clear to auscultation bilaterally. ABDOMEN: Soft, positive bowel sounds, mild tender epigastrium, no organomegaly.no flank tenderness SKIN: No rash, no excessive bruising, petechiae, or purpura. NEUROLOGIC: Cranial nerves II-XII intact without motor/sensory deficit. Psych: normal affect Objective Data Labs 08/19/24 07:58 08/21/24 06:28 Labs: Laboratory Results - last 24 hr 08/20/24 08/20/24 08/21/24 16:07 20:23 06:28 Creatinine 0.68 Estim Creat Clear Calc 105.8 Estimated GFR > 60 POC Glucose 158 H 144 H Random Vancomycin 08/21/24 08/21/24 08/21/24 07:28 11:29 13:03 Creatinine Estim Creat Clear Calc Estimated GFR POC Glucose 188 H 200 H Random Vancomycin < 2.0 L Microbiology Microbiology Results: Microbiology 08/19/24 Unknown Finger Gram Stain - Final 08/19/24 Unknown Finger Routine Culture - Preliminary Staphylococcus aureus 08/19/24 Unknown Finger Anaerobic Culture - Preliminary Culture in progress. 08/19/24 Unknown Finger Left Index Gram Stain - Final 08/19/24 Unknown Finger Left Index Routine Culture - Preliminary Staphylococcus aureus 08/19/24 Unknown Finger Left Index Gram Stain - Final 08/19/24 Unknown Finger Left Index Routine Culture - Final No growth after 2 days 08/17/24 23:11 Blood - Venous Blood Culture - Preliminary No growth after 48 hours. 08/17/24 21:25 Blood - Venous Blood Culture - Preliminary No growth after 48 hours. Procedures Date of Service Date of Service: 08/21/24 Progress Note: A&P Assessment and plan (1) Abdominal pain: Status: Acute Plan 1/ Abdominal pain, probably from constipation, whihc could be from medications, ileus acute illness combination, improved, plan was for EGD todya but per anesthesia cancelled due to trulicity\ PLAN: 1/ Advance diet 2/ if pain conts to improve can go home, otherwise upper GI series for further assessment -cont PPI, cut back on laxatives 3/ o/p f/u with MRI for panc cyst Time Spent With Patient Time: Total time managing care of this patient today ____ minutes. Quality Stroke Does the patient have a stroke diagnosis?: No VTE Prior VTE?: No VTE Risk Level:: Medical - low VTE Device Contraindication: N/A - Device Ordered VTE Drug Contraindication: Treatment Not Indicated
[2024-08-21] MEDS: 0.9 % Sodium Chloride Flush 3 ML SYRINGE IVFLUSH ×2 (15:42→20:33)
[2024-08-21] MEDS: vancomycin HCL 1,500 MG in 0.9 % Sodium Chloride 500 ML 333.33 MG IV ×2 (15:44→22:51)
[2024-08-21 16:41] LABS: Glucose, Whole Blood 143 mg/dL (60-115)
[2024-08-21] MEDS: Omeprazole 40 MG CAPSULE.DR PO (17:14)
[2024-08-21 19:54] LABS: Glucose, Whole Blood 203 mg/dL (60-115)
[2024-08-21] MEDS: Calcium Oyster Shell Elemental 500 MG TABLET 250 MG PO (20:20)
[2024-08-21] MEDS: Atorvastatin Calcium 40 MG TABLET PO (20:20)
[2024-08-21] MEDS: Cholecalciferol (Vitamin D3) 25 MCG TABLET 100 MCG PO (20:22)
[2024-08-21] MEDS: TiZANidine HCL 4 MG TABLET PO (20:22)
[2024-08-21] MEDS: Montelukast Sodium 10 MG TABLET PO (20:23)
[2024-08-21] MEDS: ondansetron HCL 4 MG/2 ML VIAL IVPUSH (20:33)
[2024-08-21 21:47] LABS: Vancomycin Random 7.3 mcg/mL (15-20)
[2024-08-21] MEDS: Loperamide HCl 2 MG CAPSULE PO (22:47)
--- NOTE | 2024-08-21 22:55 | MHC.PIE ---
p; pt c/o loose stools with iv vanco administration i; dr mitchell notified. new order imodium prn e; will cont to monitor
[2024-08-22] VITALS (7 sets, daily range): BP systolic 134–172; BP diastolic 65–87; PULSE 57–74; RESP 12–18; TEMP 36.1–36.8; O2SAT 95–98
[2024-08-22] MEDS: Dextrose 5 % and 0.9 % NaCl 1,000 ML 100 ML IVCONT (01:40)
[2024-08-22] MEDS: HYDROmorphone HCl 0.5 MG/0.5 ML SYRINGE IVPUSH ×2 (02:27→22:52)
[2024-08-22] MEDS: Acetaminophen 325 MG TABLET 975 MG PO (03:40)
--- NOTE | 2024-08-22 06:00 | MHC.PIE ---
late entry 0130 p; pt c/o pain 05/25. pt reports po dilaudid is home dose for chronic back pain and pt now suffering from acute pain to lt shoulder, hand/finger and abd. i; dr mitchell notified. new order iv dilaudid x3 prn e; will cont to monitor
[2024-08-22] MEDS: vancomycin HCL 1,500 MG in 0.9 % Sodium Chloride 500 ML 250 MG IV (06:23)
[2024-08-22] MEDS: Levothyroxine Sodium 112 MCG TABLET 224 MCG PO (06:25)
[2024-08-22] MEDS: Omeprazole 40 MG CAPSULE.DR PO ×2 (06:25→15:32)
[2024-08-22 06:39] LABS: Hemoglobin 10.3 g/dl (12.0-16.0); Mean Corpuscular HGB Conc 33.2 g/dl (31.0-35.0); Mean Corpuscular Hemoglobin 27.8 pg (27.0-33.0); Mean Corpuscular Volume 83.8 fL (80.0-98.0); Mean Platelet Volume 10.3 fL (9.4-12.3); Platelet Count 122 X10*3/uL (160-400); Red Cell Distribution Width 13.6 % (11.0-16.0); White Blood Count 5.6 X10*3/uL (4.8-10.8)
[2024-08-22 06:48] LABS: Anion Gap 13 (12-20); Blood Urea Nitrogen 5 mg/dL (9-16); Calcium 8.9 mg/dL (8.4-10.2); Carbon Dioxide 21 mmol/L (22-29); Chloride 109 mmol/L (96-108); Creatinine Clr Calc Pharmacy 105.8; Estimated Glomerular Filt Rate > 60; Glucose Random 230 mg/dL (60-115); Sodium 140 mmol/L (135-145)
[2024-08-22 07:15] LABS: Potassium 2.8 mmol/L (3.3-5.1)
--- NOTE | 2024-08-22 07:28 | PM.PNORT ---
Subjective Subjective Date of Service: 08/22/24 Interval history: 53-year-old female admitted to the hospital for chronic abscess of left index finger Postop day 3 Status post irrigation and debridement of left index finger and flexor tenosynovectomy of left index finger Patient was resting comfortably in bed this morning Pain well managed No acute events overnight Patient reports that she does have some upper GI procedure scheduled for today, either an upper endoscopy or barium swallow No other acute complaints or concerns at this time Physical Exam Vital Signs: Vital Signs: Last Vital Signs Temp 97.5 F 08/22/24 03:50 Pulse 60 08/22/24 03:50 Resp 16 08/22/24 03:50 BP 159/76 H 08/22/24 03:50 Pulse Ox 98 08/22/24 03:50 O2 Del Method Room Air 08/22/24 03:50 O2 Flow Rate 6 08/19/24 12:20 BMI result Body Mass Index 36.0 Extrem: Other: Patient is alert, oriented, and in no acute distress. Neuro: Normal sensation of the tips of all digits of the left hand Vascular: Cap refill brisk Pain: Patient reports some mild tenderness to palpation about the left index finger, improved from prior to surgery ROM: Patient is able to get close to making a closed fist and extending all digits of the left hand fully and without difficulty Skin: Incision sites clean and intact, no active drainage at this time General: There is noted to be some [id number] edema of the volar aspect of the left index finger Erythema improved, no ecchymosis Psych: Appears grossly normal Affect normal Attitude cooperative Procedures Date of Service Date of Service: 08/22/24 Progress Note: A&P Assessment and plan (1) Cellulitis of finger of left hand: Status: Acute (2) Tenosynovitis of finger: Status: Acute Plan 1. Abscess of left index finger 2. 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 Quality Stroke Does the patient have a stroke diagnosis?: No VTE Prior VTE?: No VTE Risk Level:: Medical - low VTE Device Contraindication: N/A - Device Ordered VTE Drug Contraindication: Treatment Not Indicated
[2024-08-22 07:35] LABS: Glucose, Whole Blood 179 mg/dL (60-115)
--- NOTE | 2024-08-22 08:22 | P.PNGI_ITS ---
Subjective Subjective Date of Service: 08/22/24 Interval History: doing much better today no abdo pain appetite is good wants to go home Critical Care Time (minutes): 0 Physical Exam 2 Vital Signs: Vital Signs: Last Vital Signs Temp 96.9 F 08/22/24 08:09 Pulse 72 08/22/24 08:09 Resp 12 08/22/24 08:09 BP 172/87 H 08/22/24 08:09 Pulse Ox 97 08/22/24 08:09 O2 Del Method Room Air 08/22/24 08:09 O2 Flow Rate 6 08/19/24 12:20 BMI result Body Mass Index 36.0 EXAM: GENERAL: The patient is well developed and nontoxic. VITAL SIGNS:see workflow HEENT: Nonicteric sclerae, PERRLA, EOMI. Oropharynx clear. Moist mucous membranes. Conjunctivae appear well perfused. No thyroid mass. CHEST: Chest wall is nontender. HEART: Regular rate and rhythm without murmurs. LUNGS: Clear to auscultation bilaterally. ABDOMEN: Soft, positive bowel sounds, nontender, no organomegaly.no flank tenderness SKIN: No rash, no excessive bruising, petechiae, or purpura. bandage on finger on left hand NEUROLOGIC: Cranial nerves II-XII intact without motor/sensory deficit. Psych: normal affect Objective Data Labs 08/22/24 05:39 08/22/24 05:39 Labs: Laboratory Results - last 24 hr 08/21/24 08/21/24 08/21/24 11:29 13:03 16:25 WBC RBC Hgb Hct MCV MCH MCHC RDW Plt Count MPV Absolute Nucleated RBC Nucleated RBC % (auto) Sodium Potassium Chloride Carbon Dioxide Anion Gap BUN Creatinine Estim Creat Clear Calc Estimated GFR POC Glucose 200 H 143 H Random Glucose Calcium Magnesium Random Vancomycin < 2.0 L 08/21/24 08/21/24 08/22/24 19:49 21:15 05:39 WBC 5.6 RBC 3.70 L Hgb 10.3 L Hct 31.0 L MCV 83.8 MCH 27.8 MCHC 33.2 RDW 13.6 Plt Count 122 L D MPV 10.3 Absolute Nucleated RBC 0.000 Nucleated RBC % (auto) 0.0 Sodium 140 Potassium 2.8 L* Chloride 109 H Carbon Dioxide 21 L Anion Gap 13 BUN 5 L Creatinine 0.68 Estim Creat Clear Calc 105.8 Estimated GFR > 60 POC Glucose 203 H Random Glucose 230 H Calcium 8.9 Magnesium 2.0 Random Vancomycin 7.3 L 08/22/24 07:30 WBC RBC Hgb Hct MCV MCH MCHC RDW Plt Count MPV Absolute Nucleated RBC Nucleated RBC % (auto) Sodium Potassium Chloride Carbon Dioxide Anion Gap BUN Creatinine Estim Creat Clear Calc Estimated GFR POC Glucose 179 H Random Glucose Calcium Magnesium Random Vancomycin Microbiology Microbiology Results: Microbiology 08/19/24 Unknown Finger Gram Stain - Final 08/19/24 Unknown Finger Routine Culture - Final Staphylococcus aureus 08/19/24 Unknown Finger Anaerobic Culture - Preliminary Culture in progress. 08/19/24 Unknown Finger Left Index Gram Stain - Final 08/19/24 Unknown Finger Left Index Routine Culture - Final Staphylococcus aureus 08/19/24 Unknown Finger Left Index Gram Stain - Final 08/19/24 Unknown Finger Left Index Routine Culture - Final No growth after 2 days 08/17/24 23:11 Blood - Venous Blood Culture - Preliminary No growth after 48 hours. 08/17/24 21:25 Blood - Venous Blood Culture - Preliminary No growth after 48 hours. Procedures Date of Service Date of Service: 08/22/24 Progress Note: A&P Assessment and plan (1) Abdominal pain: Status: Acute Plan 1/ Abdominal pain, resolved, prob ileus frm meds and acute infection PLAN: 1/ can go home, 2/ avodi constipation, stool softener 3/ o/p f/u for panc cyst Time Spent With Patient Time: Total time managing care of this patient today ____ minutes. Quality Stroke Does the patient have a stroke diagnosis?: No VTE Prior VTE?: No VTE Risk Level:: Medical - low VTE Device Contraindication: N/A - Device Ordered VTE Drug Contraindication: Treatment Not Indicated
[2024-08-22] MEDS: Calcium Oyster Shell Elemental 500 MG TABLET 250 MG PO ×2 (08:37→21:07)
[2024-08-22] MEDS: Insulin Lispro 100 UNIT/ML 3 ML VIAL SUBCUT ×4 (08:37→21:08)
[2024-08-22] MEDS: Ipratropium Bromide Nas 0.06 % 15 ML SPRAY 2 SPRAY NOSTRIL-B (08:38)
[2024-08-22] MEDS: pyRIDostigmine bromide 60 MG TABLET PO ×4 (08:38→21:07)
[2024-08-22] MEDS: amLODIPine Besylate 2.5 MG TABLET PO (08:38)
[2024-08-22] MEDS: Losartan Potassium 25 MG TABLET PO (08:38)
[2024-08-22] MEDS: Ferrous Sulfate 324 MG TABLET.DR PO (08:38)
[2024-08-22] MEDS: Loratadine 10 MG TABLET PO (08:38)
[2024-08-22] MEDS: carvediloL 6.25 MG TABLET PO (08:38)
[2024-08-22] MEDS: Nystatin Powder 15 GM BOTTLE 1 APPL TOPICAL ×2 (08:39→21:08)
[2024-08-22] MEDS: 0.9 % Sodium Chloride Flush 3 ML SYRINGE IVFLUSH ×3 (08:46→21:00)
[2024-08-22] MEDS: Tiotropium Bromide 2.5 mcg 1 PUFF/2.5 MCG MIST.INHAL 2 PUFF INHALE (09:07)
[2024-08-22] MEDS: Potassium Chloride Packet 20 MEQ PACKET 40 MEQ PO (10:30)
[2024-08-22] MEDS: HYDROmorphone HCl 2 MG TABLET PO ×2 (10:51→18:25)
[2024-08-22 11:50] LABS: Glucose, Whole Blood 187 mg/dL (60-115)
--- NOTE | 2024-08-22 13:56 | P.PNIM_ITS ---
Subjective Subjective Date of Service: 08/22/24 Interval History: abd discomfort resolved finger pain improved Review of Systems Review of Systems: Yes all other systems are reviewed and are negative Physical Exam 2 Vital Signs: Vital Signs: Last Vital Signs Temp 96.9 F 08/22/24 08:09 Pulse 60 08/22/24 09:07 Resp 16 08/22/24 09:07 BP 172/87 H 08/22/24 08:09 Pulse Ox 97 08/22/24 08:09 O2 Del Method Room Air 08/22/24 08:09 O2 Flow Rate 6 08/19/24 12:20 BMI result Body Mass Index 36.0 Gen: in no acute distress HEENT: sclera anicteric, moist mucus membranes Neck: supple Lungs: clear to auscultation bilaterally Heart: regular rate and rhythm, no murmurs Abd: soft, non-tender, non-distended Ext: no edema, intact surgical incisions L index finger with some induration; minimal erythema Skin: warm/well-perfused Neuro: alert and oriented x3, no focal findings Psych: appropriate affect Objective Data Active Medications Acetaminophen (Acetaminophen 325 Mg Tablet) 975 mg PO Q6H PRN PRN Reason: Pain, Mild (Pain Scale 1-3), fever or headache Last Admin: 08/22/24 03:40 Dose: 975 mg Documented By: ROYCE Comments: given per pt request Albuterol Sulfate (Albuterol Sulfate 90 Mcg 8 Gm Inhaler) 2 puff INHALE Q6H PRN PRN Reason: shortness of breath or wheezing Amlodipine Besylate (Amlodipine Besylate 2.5 Mg Tablet) 2.5 mg PO DAILY [facility]; Protocol Last Admin: 08/22/24 08:38 Dose: 2.5 mg Documented By: EILEEN Atorvastatin Calcium (Atorvastatin Calcium 40 Mg Tablet) 40 mg PO BEDTIME [facility]OR[facility] Last Admin: 08/21/24 20:20 Dose: 40 mg Documented By: ROYCE Calcium Carbonate (Calcium Oyster Shell Elemental 500 Mg Tablet) 250 mg PO BID [facility] Last Admin: 08/22/24 08:37 Dose: 250 mg Documented By: EILEEN Carvedilol (Carvedilol 6.25 Mg Tablet) 6.25 mg PO DAILY [facility]; Protocol Last Admin: 08/22/24 08:38 Dose: 6.25 mg Documented By: EILEEN Docusate Sodium (Docusate Sodium 100 Mg Capsule) 100 mg PO BEDTIME [facility] Last Admin: 08/21/24 20:21 Dose: Not Given Documented By: ROYCE Non-Admin Reason: Patient Refused Epinephrine (Epinephrine 1 Mg/Ml Vial) 0.3 mg IM Q5M PRN PRN Reason: anaphylaxis Ferrous Sulfate (Ferrous Sulfate 324 Mg Tablet.Dr) 324 mg PO DAILY [facility] Last Admin: 08/22/24 08:38 Dose: 324 mg Documented By: EILEEN Glucose (Glucose Gel 15 Gm Gel..Gram.) 15 gm PO Q15M PRN; Protocol PRN Reason: per Hypoglycemia Standing Ord. Hydromorphone HCl (Hydromorphone Hcl 2 Mg Tablet) 2 mg PO Q4H PRN PRN Reason: Pain, Severe (Pain Scale 7-10) Last Admin: 08/22/24 10:51 Dose: 2 mg Documented By: JAVIER Hydromorphone HCl (Hydromorphone Hcl 0.5 Mg/0.5 Ml Syringe) 0.5 mg IVPUSH Q4H PRN; Protocol PRN Reason: Pain, Severe (Pain Scale 7-10) Last Admin: 08/22/24 02:27 Dose: 0.5 mg Documented By: ROYCE Dextrose (D10) 250 mls @ 750 mls/hr IV Q15M PRN; Protocol PRN Reason: per Hypoglycemia Standing Ord. Vancomycin HCl 1,500 mg/ (Sodium Chloride) 500 mls @ 333.333 mls/hr IV Q8H [facility] Last Infusion: 08/22/24 08:39 Dose: Infused Documented By: EILEEN Insulin Human Lispro (Insulin Lispro 100 Unit/Ml 3 Ml Vial) 0 unit SUBCUT QIDACHS [facility]; Protocol Last Admin: 08/22/24 12:27 Dose: 2 unit Documented By: EILEEN Ipratropium [place] (Ipratropium [place] Maynor 0.06 % 15 Ml Webb) 2 spray NOSTRIL-B DAILY [facility] Last Admin: 08/22/24 08:38 Dose: 2 spray Documented By: EILEEN Levothyroxine Sodium (Levothyroxine Sodium 112 Mcg Tablet) 224 mcg PO DAILY@0600 [facility] Last Admin: 08/22/24 06:25 Dose: 224 mcg Documented By: ROYCE Loperamide HCl (Loperamide Hcl 2 Mg Capsule) 2 mg PO Q4H PRN PRN Reason: Diarrhea Last Admin: 08/21/24 22:47 Dose: 2 mg Documented By: ROYCE Loratadine (Loratadine 10 Mg Tablet) 10 mg PO DAILY [facility] Last Admin: 08/22/24 08:38 Dose: 10 mg Documented By: EILEEN Losartan Potassium (Losartan Potassium 25 Mg Tablet) 25 mg PO DAILY [facility]; Protocol Last Admin: 08/22/24 08:38 Dose: 25 mg Documented By: EILEEN Montelukast Sodium (Montelukast Sodium 10 Mg Tablet) 10 mg PO BEDTIME [facility] Last Admin: 08/21/24 20:23 Dose: 10 mg Documented By: ROYCE Non-Formulary Medication (Benralizumab [Fasenra]) 30 mg SUBCUT Q56D [facility] Non-Formulary Medication (Mometasone [Asmanex Hfa]) 2 puff INHALE BID [facility] Nystatin (Nystatin Powder 15 Gm Bottle) 1 appl TOPICAL BID [facility]; Protocol Last Admin: 08/22/24 08:39 Dose: 1 appl Documented By: EILEEN Omeprazole (Omeprazole 40 Mg Capsule.Dr) 40 mg PO BID@0630,1630 [facility] Last Admin: 08/22/24 06:25 Dose: 40 mg Documented By: ROYCE Ondansetron HCl (Ondansetron Hcl 4 Mg/2 Ml Vial) 4 mg IVPUSH Q6H PRN PRN Reason: Nausea and Vomiting Last Admin: 08/21/24 20:33 Dose: 4 mg Documented By: ROYCE Pharmacy Consult (Consult Rx Vancomycin Dosing) 1 each MISCELLANE DAILY PRN PRN Reason: Consult order Polyethylene Glycol (Polyethylene Glycol 3350 17 Gm Powd.Pack) 17 gm PO DAILY [facility] Last Admin: 08/22/24 08:49 Dose: Not Given Documented By: EILEEN Non-Admin Reason: Patient Refused Pyridostigmine [place] (Pyridostigmine [place] 60 Mg Tablet) 60 mg PO QID [facility] Last Admin: 08/22/24 12:28 Dose: 60 mg Documented By: EILEEN Sodium Chloride (0.9 % Sodium Chloride Flush 3 Ml Syringe) 3 ml IVFLUSH QSHIFT [facility] Last Admin: 08/22/24 08:46 Dose: 3 ml Documented By: EILEEN Tiotropium [place] (Tiotropium [place] 2.5 Mcg 1 Puff/2.5 Mcg Mist.Inhal) 2 puff INHALE RDAILY [facility] Last Admin: 08/22/24 09:07 Dose: 2 puff Documented By: ETHAN Tizanidine HCl (Tizanidine Hcl 4 Mg Tablet) 4 mg PO BEDTIME [facility] Last Admin: 08/21/24 20:22 Dose: 4 mg Documented By: ROYCE Vitamin D (Cholecalciferol (Vitamin D3) 25 Mcg Tablet) 100 mcg PO BEDTIME [facility] Last Admin: 08/21/24 20:22 Dose: 100 mcg Documented By: ROYCE Labs 08/22/24 05:39 08/22/24 05:39 Labs: Laboratory Results - last 24 hr 08/21/24 08/21/24 08/21/24 16:25 19:49 21:15 MCV MCH MCHC RDW Plt Count MPV Absolute Nucleated RBC Nucleated RBC % (auto) Anion Gap Estim Creat Clear Calc Estimated GFR POC Glucose 143 H 203 H Random Glucose Calcium Magnesium Random Vancomycin 7.3 L 08/22/24 08/22/24 08/22/24 05:39 07:30 11:42 MCV 83.8 MCH 27.8 MCHC 33.2 RDW 13.6 Plt Count 122 L D MPV 10.3 Absolute Nucleated RBC 0.000 Nucleated RBC % (auto) 0.0 Anion Gap 13 Estim Creat Clear Calc 105.8 Estimated GFR > 60 POC Glucose 179 H 187 H Random Glucose 230 H Calcium 8.9 Magnesium 2.0 Random Vancomycin Microbiology Microbiology Results: Microbiology 08/19/24 Unknown Gram Stain - Final Finger Routine Culture - Final Staphylococcus aureus Anaerobic Culture - Preliminary Culture in progress. 08/19/24 Unknown Gram Stain - Final Finger Left Index Routine Culture - Final Staphylococcus aureus Assessment and Plan (1) Pancreatic cyst: Status: Acute (2) Obstipation: Status: Acute (3) Abdominal pain: Status: Acute (4) Tenosynovitis of finger: Status: Acute Plan d6 for 53yo F admitted with severe sepsis due to acute/chronic L index finger tenosynovitis/abscess acute abscess of L index finger chronic infection of flexor tendon of L index finger - s/p I+D and flexor tensynovectomy 08/19/24 - wound culture growing MSSA; pt with type 1 allergy to cephalexin; remains on vancomycin 08/17- pending ID consultation - per Orthopedic surgery, 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; ID consult pending - daily dressing changes with small amounts of Xeroform, nonstick gauze, and Kerlix abdominal pain - resolved with treatment of constipation - per GI, no EGD required; tolerating diet incidental cyst in tail of pancreas - outpt GI follow-up for MRI HLD - statin HTN - carvedilol + losartan + amlodipine chronic pain - hydromorphone hypothyroidism - continue LT4 DM2 - atiya-dose lispro mitochondrial myopathy - pyridostigmine moderate persistent asthma - continue montelukast, prn albuterol; on benralizumab as outpt BENEDICT cirrhosis with portal HTN, hx esophageal varices + thrombocytopenia - compensated; no bleeding reported VTE ppx - SCDs dispo - eventual home In my clinical judgment, the patient requires continued inpatient hospitalization for the following reasons: IV ABX, ID consultation Total time managing care of this patient today: 35 minutes. Quality Stroke Does the patient have a stroke diagnosis?: No VTE Prior VTE?: No VTE Risk Level:: Medical - low VTE Device Contraindication: N/A - Device Ordered VTE Drug Contraindication: Treatment Not Indicated
[2024-08-22 14:10] LABS: Vancomycin Random 5.8 mcg/mL (15-20)
--- NOTE | 2024-08-22 14:33 | HE.PHANOTE ---
NEEL Increasing patient to 2000mg Q8H, okayed per Dr. Mascorro. Patient is running through doses and consistent troughs are coming back subtheraprutic. Increased to 2000mg Q8H for 1 day, to try and get patient in a semi-therapeutic range. Patient has very good chance of dose dumping, using creatinine and trough to monitor. Next trough 08/23 @1300. Predicted trough even with increased dose is 6.9 and predicted AUC 4.75.
[2024-08-22 14:45] LABS: Anion Gap 14 (12-20); Blood Urea Nitrogen 5 mg/dL (9-16); Carbon Dioxide 19 mmol/L (22-29); Chloride 110 mmol/L (96-108); Creatinine Clr Calc Pharmacy 97.2; Estimated Glomerular Filt Rate > 60; Glucose Random 199 mg/dL (60-115); Potassium 3.5 mmol/L (3.3-5.1); Sodium 139 mmol/L (135-145)
[2024-08-22] MEDS: vancomycin/NS 2,000 MG/500 ML PLAST..BAG 250 MG IV ×2 (15:32→22:46)
[2024-08-22 16:50] LABS: Glucose, Whole Blood 196 mg/dL (60-115)
[2024-08-22 19:55] LABS: Glucose, Whole Blood 199 mg/dL (60-115)
[2024-08-22] MEDS: ondansetron HCL 4 MG/2 ML VIAL IVPUSH (21:00)
[2024-08-22] MEDS: Cholecalciferol (Vitamin D3) 25 MCG TABLET 100 MCG PO (21:05)
[2024-08-22] MEDS: TiZANidine HCL 4 MG TABLET PO (21:06)
[2024-08-22] MEDS: Atorvastatin Calcium 40 MG TABLET PO (21:07)
[2024-08-22] MEDS: Montelukast Sodium 10 MG TABLET PO (21:07)
--- NOTE | 2024-08-22 22:43 | P.CNID_ITS ---
History of Present Illness Data of Consult Service Date: 08/22/24 Requesting physician: Nisha Singer Primary Care Provider: Cassius Strong MD HPI Reason for consult: left index finger swelling,?mycobacterial infection vs purulent cellulitis She presents with left index finger swelling and pain and clear drainagel She had trigger release for tenosynoviits in past. She had chronic clear draining reported after drainage cyst in January 2024, She has fever or chills. Review of Systems 2 Review of Systems: Yes all other systems are reviewed and are negative [facility] Past Medical History Medical History Anemia Chronic restrictive lung disease Brugada syndrome Shortness of breath Encounter for care related to Port-a-Cath Tinea pedis Recurrent cellulitis of lower extremity CHARLES (obstructive sleep apnea) Hypogammaglobulinemia Cellulitis of both lower extremities Right hip pain Lumbar degenerative disc disease Benign essential hypertension Obesity (BMI 30-39.9) Mitochondrial myopathy Asthma Diabetes mellitus History of revision of total replacement of right hip joint (~12/2019) Acquired hypothyroidism Pain of both hip joints Pure hypercholesterolemia Hx of cataract HTN (hypertension) Osteopenia Hypothyroidism Osteoarthritis of hip Gastritis Family History Family History Father Leukemia Mother Hypertension Diabetes Sister Alive and well Brother Pancreatic cancer Paternal Grandmother Stomach cancer Paternal Grandmother Throat cancer Surgical History Surgical History History of removal of Port-a-Cath History of total right hip arthroplasty (~06/03/19) History of eye surgery (~09/2017) History of hip surgery Hx of foot surgery (~01/02/19) History of removal of cyst Hx of left knee surgery History of elbow surgery (~07/2016) Hx of thumb surgery Hx of appendectomy Hx of hysterectomy (~07/2011) Hx of bilateral breast reduction surgery Social History Social History Household Members: Family Housing: Apartment Do you presently have visiting nurse or other home services: No Alcohol intake: former Comment: refused bed alarm Patient Tobacco Use Status: Never used Tobacco e-Cigarette/Vaping Use: Never Used Second Hand Smoke Exposure: No Advance Directives Date on File: 10/02/23 service: No Current occupational status: disabled Cognitive needs: No Hearing needs: No Vision needs: No Meds Allergies Allergy/AdvReac Type Severity Reaction Status Date / Time cephalexin Allergy Severe Difficulty Verified 08/01/24 11:44 Breathing latex [LATEX] Allergy Severe Difficulty Verified 08/17/24 20:53 Breathing levofloxacin [From LEVAQUIN] Allergy Severe SHORTNESS Verified 08/17/24 20:53 OF BREATH, RASH, rash morphine [MORPHINE] Allergy Severe RASH, Verified 08/17/24 20:53 asthma exacerbation, rash baclofen [BACLOFEN] Allergy Intermediate Rash Verified 08/17/24 20:53 celecoxib [Celebrex] Allergy Intermediate itching, Verified 08/17/24 20:53 rash, flushing prednisone [PREDNISONE] Allergy Intermediate RASH, Verified 08/17/24 20:53 asthma exacerbation, rash codeine Allergy Unknown Rash Verified 08/17/24 20:53 gluten [GLUTEN] Allergy Unknown UNKNOWN Verified 08/17/24 20:53 oxycodone Allergy Unknown rash Verified 08/17/24 20:53 ranitidine Allergy Unknown unknown Verified 08/17/24 20:53 roflumilast [Daliresp] Allergy Unknown rash Verified 08/17/24 20:53 tramadol [TRAMADOL] Allergy Unknown RASH,SHORTNESS Verified 08/17/24 20:53 OF BREATH AND HEADACHE, asthma exacerbation, rash celery Allergy Rash Verified 08/17/24 20:53 cyclobenzaprine Allergy Rash and Verified 08/17/24 20:53 [From Flexeril] asthma exacerbation environmental allergies Allergy Cleaning Verified 08/17/24 20:53 products cause asthma attack pineapple Allergy Rash Verified 08/17/24 20:53 strawberry Allergy Rash Verified 08/17/24 20:53 sulfamethoxazole AdvReac Intermediate vertigo Verified 08/17/24 20:53 [From Bactrim] trimethoprim [From Bactrim] AdvReac Intermediate vertigo Verified 08/17/24 20:53 diazepam [From Valium] AdvReac Cough Verified 08/17/24 20:53 Active Medications: Current Medications Acetaminophen (Acetaminophen 325 Mg Tablet) 975 mg PO Q6H PRN PRN Reason: Pain, Mild (Pain Scale 1-3), fever or headache Last Admin: 08/22/24 03:40 Dose: 975 mg Albuterol Sulfate (Albuterol Sulfate 90 Mcg 8 Gm Inhaler) 2 puff INHALE Q6H PRN PRN Reason: shortness of breath or wheezing Amlodipine Besylate (Amlodipine Besylate 2.5 Mg Tablet) 2.5 mg PO DAILY [facility]; Protocol Last Admin: 08/22/24 08:38 Dose: 2.5 mg Atorvastatin Calcium (Atorvastatin Calcium 40 Mg Tablet) 40 mg PO BEDTIME [facility] Last Admin: 08/22/24 21:07 Dose: 40 mg Calcium Carbonate (Calcium Oyster Shell Elemental 500 Mg Tablet) 250 mg PO BID [facility] Last Admin: 08/22/24 21:07 Dose: 250 mg Carvedilol (Carvedilol 6.25 Mg Tablet) 6.25 mg PO DAILY [facility]; Protocol Last Admin: 08/22/24 08:38 Dose: 6.25 mg Docusate Sodium (Docusate Sodium 100 Mg Capsule) 100 mg PO BEDTIME [facility] Last Admin: 08/22/24 21:08 Dose: Not Given Epinephrine (Epinephrine 1 Mg/Ml Vial) 0.3 mg IM Q5M PRN PRN Reason: anaphylaxis Ferrous Sulfate (Ferrous Sulfate 324 Mg Tablet.Dr) 324 mg PO DAILY [facility] Last Admin: 08/22/24 08:38 Dose: 324 mg Glucose (Glucose Gel 15 Gm Gel..Gram.) 15 gm PO Q15M PRN; Protocol PRN Reason: per Hypoglycemia Standing Ord. Hydromorphone HCl (Hydromorphone Hcl 2 Mg Tablet) 2 mg PO Q4H PRN PRN Reason: Pain, Severe (Pain Scale 7-10) Last Admin: 08/22/24 18:25 Dose: 2 mg Hydromorphone HCl (Hydromorphone Hcl 0.5 Mg/0.5 Ml Syringe) 0.5 mg IVPUSH Q4H PRN; Protocol PRN Reason: Pain, Severe (Pain Scale 7-10) Last Admin: 08/22/24 02:27 Dose: 0.5 mg Dextrose (D10) 250 mls @ 750 mls/hr IV Q15M PRN; Protocol PRN Reason: per Hypoglycemia Standing Ord. Vancomycin HCl (Vancomycin/Ns) 2,000 mg in 500 mls @ 250 mls/hr IV Q8H [facility] Last Infusion: 08/22/24 18:27 Dose: Infused Insulin Human Lispro (Insulin Lispro 100 Unit/Ml 3 Ml Vial) 0 unit SUBCUT QIDACHS [facility]; Protocol Last Admin: 08/22/24 21:08 Dose: 4 unit Ipratropium [place] (Ipratropium [place] Maynor 0.06 % 15 Ml [place]) 2 spray NOSTRIL-B DAILY [facility] Last Admin: 08/22/24 08:38 Dose: 2 spray Levothyroxine Sodium (Levothyroxine Sodium 112 Mcg Tablet) 224 mcg PO DAILY@0600 [facility] Last Admin: 08/22/24 06:25 Dose: 224 mcg Loperamide HCl (Loperamide Hcl 2 Mg Capsule) 2 mg PO Q4H PRN PRN Reason: Diarrhea Last Admin: 08/21/24 22:47 Dose: 2 mg Loratadine (Loratadine 10 Mg Tablet) 10 mg PO DAILY [facility] Last Admin: 08/22/24 08:38 Dose: 10 mg Losartan Potassium (Losartan Potassium 25 Mg Tablet) 25 mg PO DAILY [facility]; Protocol Last Admin: 08/22/24 08:38 Dose: 25 mg Montelukast Sodium (Montelukast Sodium 10 Mg Tablet) 10 mg PO BEDTIME [facility] Last Admin: 08/22/24 21:07 Dose: 10 mg Non-Formulary Medication (Benralizumab [Fasenra]) 30 mg SUBCUT Q56D [facility] Non-Formulary Medication (Mometasone [Asmanex Hfa]) 2 puff INHALE BID [facility] Nystatin (Nystatin Powder 15 Gm Bottle) 1 appl TOPICAL BID [facility]; Protocol Last Admin: 08/22/24 21:08 Dose: 1 appl Omeprazole (Omeprazole 40 Mg Capsule.Dr) 40 mg PO BID@0630,1630 [facility] Last Admin: 08/22/24 15:32 Dose: 40 mg Ondansetron HCl (Ondansetron Hcl 4 Mg/2 Ml Vial) 4 mg IVPUSH Q6H PRN PRN Reason: Nausea and Vomiting Last Admin: 08/22/24 21:00 Dose: 4 mg Pharmacy Consult (Consult Rx Vancomycin Dosing) 1 each MISCELLANE DAILY PRN PRN Reason: Consult order Polyethylene Glycol (Polyethylene Glycol 3350 17 Gm Powd.Pack) 17 gm PO DAILY [facility] Last Admin: 08/22/24 08:49 Dose: Not Given Pyridostigmine [place] (Pyridostigmine [place] 60 Mg Tablet) 60 mg PO QID [facility] Last Admin: 08/22/24 21:07 Dose: 60 mg Sodium Chloride (0.9 % Sodium Chloride Flush 3 Ml Syringe) 3 ml IVFLUSH QSHIFT [facility] Last Admin: 08/22/24 21:00 Dose: 3 ml Tiotropium [place] (Tiotropium [place] 2.5 Mcg 1 Puff/2.5 Mcg Mist.Inhal) 2 puff INHALE RDAILY [facility] Last Admin: 08/22/24 09:07 Dose: 2 puff Tizanidine HCl (Tizanidine Hcl 4 Mg Tablet) 4 mg PO BEDTIME [facility] Last Admin: 08/22/24 21:06 Dose: 4 mg Vitamin D (Cholecalciferol (Vitamin D3) 25 Mcg Tablet) 100 mcg PO BEDTIME [facility] Last Admin: 08/22/24 21:05 Dose: 100 mcg Home Medications ?Medication ?Instructions ?Recorded ?Confirmed ?Last Taken ?Type ipratropium bromide 42 mcg (0.06 2 spray intranasal DAILY 03/11/21 08/18/24 08/17/24 History %) nasal spray benralizumab 30 mg/mL subcutaneous 30 mg subcut Q8W 10/06/22 08/18/24 3 Weeks Ago History syringe (Fasenra) ~07/28/24 nebulizers 03/09/23 08/01/24 Unknown History carvedilol 6.25 mg tablet 6.25 mg PO DAILY for blood pressure 04/15/24 08/18/24 08/17/24 History epinephrine 0.3 mg/0.3 mL 0.3 mg IM Q5M PRN anaphylaxis 04/15/24 08/18/24 Unknown History injection, auto-injector mometasone 200 mcg/actuation HFA 2 puff inhalation BID 04/15/24 08/18/24 08/17/24 History aerosol inhaler (Asmanex HFA) calcium citrate 250 mg PO BID 08/18/24 08/18/24 08/17/24 History hydromorphone 2 mg tablet 2 mg PO Q8H PRN pain 08/18/24 08/18/24 Unknown History insulin aspart 1 sliding scale dose subcut TIDAC 08/18/24 08/18/24 08/17/24 History (niacinamide)(U-100) 100 unit/mL(3 mL) subcutaneous pen (Fiasp FlexTouch U-100 Insulin) insulin degludec 100 unit/mL (3 8 unit subcut DAILY 08/18/24 08/18/24 08/17/24 History mL) subcutaneous pen (Tresiba FlexTouch U-100 insulin) levothyroxine 112 mcg tablet 224 mcg PO DAILY@0600 08/18/24 08/18/24 08/17/24 History (Synthroid) nystatin 100,000 unit/gram topical 1 appl topical BID 08/18/24 08/18/24 08/17/24 History powder (Nystop) omeprazole 40 mg capsule,delayed 40 mg PO BID gastritis 08/18/24 08/18/24 08/17/24 History release pyridostigmine bromide 60 mg tablet 60 mg PO QID 08/18/24 08/18/24 08/17/24 History tiotropium bromide 1.25 2 puff inhalation DAILY 08/18/24 08/18/24 08/17/24 History mcg/actuation mist for inhalation (Spiriva Respimat) tizanidine 2 mg tablet 4 mg PO BEDTIME for muscle spasm 08/18/24 08/18/24 08/17/24 History Physical Exam 2 Vital Signs: Vital Signs: Last Vital Signs Temp 98.3 F 08/22/24 19:19 Pulse 69 08/22/24 19:19 Resp 18 08/22/24 19:19 BP 168/77 H 08/22/24 19:19 Pulse Ox 96 08/22/24 19:19 O2 Del Method Room Air 08/22/24 19:19 O2 Flow Rate 6 08/19/24 12:20 BMI result Body Mass Index 36.0 Const: General: cooperative HEENT: Head: Yes normal to inspection Face and sinus: Yes normal facial exam Mouth: Normal oral and palatal mucosa present Teeth and gingiva: d entition normal Eyes: General: appearance normal, both eyes and all related structures P upils: Equal, round and reactive pupils present Resp: Effort & Inspection: normal respiratory effort Cardio: Rate: regular rate Rhythm: regular rhythm GI: Palpation (GI): Soft to palpation and nontender : General: Yes no CVA tenderness Back/Spine/Pelvis: Back: no CVA tenderness Skin: General skin exam: no rashes or lesions noted Neuro: General: moves all extremities Cranial nerves: Yes Equal, round and reactive pupils present Extrem: General: Yes normal to inspection Psych: Appearance: grossly normal Results Labs 08/22/24 05:39 08/22/24 14:22 Labs: Short CBC 08/22/24 Range/Units 05:39 WBC 5.6 (4.8-10.8) X10*3/uL Hgb 10.3 L (12.0-16.0) g/dl Hct 31.0 L (37.0-47.0) % Plt Count 122 L D (160-400) X10*3/uL BMP 08/22/24 08/22/24 05:39 14:22 Sodium 140 139 Potassium 2.8 L* 3.5 D Chloride 109 H 110 H Carbon Dioxide 21 L 19 L BUN 5 L 5 L Creatinine 0.68 0.74 Calcium 8.9 9.0 Microbiology Microbiology Results: Microbiology 08/19/24 Unknown Finger Gram Stain - Final 08/19/24 Unknown Finger Routine Culture - Final Staphylococcus aureus 08/19/24 Unknown Finger Anaerobic Culture - Preliminary Culture in progress. 08/19/24 Unknown Finger Left Index Gram Stain - Final 08/19/24 Unknown Finger Left Index Routine Culture - Final Staphylococcus aureus 08/19/24 Unknown Finger Left Index Gram Stain - Final 08/19/24 Unknown Finger Left Index Routine Culture - Final No growth after 2 days 08/17/24 23:11 Blood - Venous Blood Culture - Preliminary No growth after 48 hours. 08/17/24 21:25 Blood - Venous Blood Culture - Preliminary No growth after 48 hours. Assessment and Plan (1) Tenosynovitis of finger: Status: Acute Plan Probably IV Dapto for four to six weeks.
[2024-08-22 22:48] LABS: Glucose, Whole Blood 185 mg/dL (60-115)
[2024-08-23] MEDS: Acetaminophen 325 MG TABLET 975 MG PO (02:15)
[2024-08-23] MEDS: Omeprazole 40 MG CAPSULE.DR PO ×2 (06:21→17:52)
[2024-08-23] MEDS: Levothyroxine Sodium 112 MCG TABLET 224 MCG PO (06:22)
[2024-08-23] MEDS: vancomycin/NS 2,000 MG/500 ML PLAST..BAG 250 MG IV (06:25)
[2024-08-23 06:49] LABS: Anion Gap 16 (12-20); Blood Urea Nitrogen 7 mg/dL (9-16); Calcium 8.8 mg/dL (8.4-10.2); Carbon Dioxide 20 mmol/L (22-29); Chloride 110 mmol/L (96-108); Creatinine Clr Calc Pharmacy 81.8; Estimated Glomerular Filt Rate > 60; Glucose Random 211 mg/dL (60-115); Magnesium 1.9 mg/dL (1.6-2.6); Potassium 3.5 mmol/L (3.3-5.1); Sodium 142 mmol/L (135-145)
[2024-08-23 07:28] VITALS: BP 178/92; PULSE 68; RESP 18; TEMP 36.7; O2SAT 98
[2024-08-23 07:41] LABS: Glucose, Whole Blood 180 mg/dL (60-115)
[2024-08-23] MEDS: Insulin Lispro 100 UNIT/ML 3 ML VIAL SUBCUT ×2 (07:56→11:51)
[2024-08-23] MEDS: 0.9 % Sodium Chloride Flush 3 ML SYRINGE IVFLUSH ×2 (07:58→17:53)
[2024-08-23] MEDS: Tiotropium Bromide 2.5 mcg 1 PUFF/2.5 MCG MIST.INHAL 2 PUFF INHALE (08:17)
[2024-08-23 08:19] VITALS: PULSE 69; RESP 18; O2SAT 96
[2024-08-23] MEDS: HYDROmorphone HCl 0.5 MG/0.5 ML SYRINGE IVPUSH (08:21)
[2024-08-23] MEDS: carvediloL 6.25 MG TABLET PO (08:25)
[2024-08-23] MEDS: Calcium Oyster Shell Elemental 500 MG TABLET 250 MG PO (08:25)
[2024-08-23 08:27] VITALS: BP 178/92
[2024-08-23] MEDS: amLODIPine Besylate 2.5 MG TABLET PO (08:27)
[2024-08-23] MEDS: pyRIDostigmine bromide 60 MG TABLET PO ×3 (08:27→17:52)
[2024-08-23] MEDS: Ferrous Sulfate 324 MG TABLET.DR PO (08:28)
[2024-08-23] MEDS: Loratadine 10 MG TABLET PO (08:29)
[2024-08-23] MEDS: Ipratropium Bromide Nas 0.06 % 15 ML SPRAY 2 SPRAY NOSTRIL-B (08:32)
[2024-08-23] MEDS: Nystatin Powder 15 GM BOTTLE 1 APPL TOPICAL (08:33)
--- NOTE | 2024-08-23 08:40 | PM.PNORT ---
Subjective Subjective Date of Service: 08/23/24 Interval history: 53-year-old female admitted to the hospital for chronic abscess of left index finger Postop day 4 Status post irrigation and debridement of left index finger and flexor tenosynovectomy of left index finger Patient was resting comfortably in bed this morning Pain well managed No acute events overnight No other acute complaints or concerns at this time Physical Exam Vital Signs: Vital Signs: Last Vital Signs Temp 98.1 F 08/23/24 07:28 Pulse 69 08/23/24 08:19 Resp 18 08/23/24 08:19 BP 178/92 H 08/23/24 08:27 Pulse Ox 98 08/23/24 07:28 O2 Del Method Room Air 08/23/24 07:28 O2 Flow Rate 6 08/19/24 12:20 BMI result Body Mass Index 36.0 Extrem: Other: Patient is alert, oriented, and in no acute distress. Neuro: Normal sensation of the tips of all digits of the left hand Vascular: Cap refill brisk Pain: Patient reports some mild tenderness to palpation about the left index finger, improved from prior to surgery ROM: Patient is able to get close to making a closed fist and extending all digits of the left hand fully and without difficulty Skin: Incision sites clean and intact, some serosanguineous drainage noted on dressing General: There is noted to be some [id number] edema of the volar aspect of the left index finger Erythema improved, no ecchymosis Psych: Appears grossly normal Affect normal Attitude cooperative Procedures Date of Service Date of Service: 08/23/24 Progress Note: A&P Assessment and plan (1) Cellulitis of finger of left hand: Status: Acute (2) Tenosynovitis of finger: Status: Acute Plan 1. Abscess of left index finger 2. 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 Quality Stroke Does the patient have a stroke diagnosis?: No VTE Prior VTE?: No VTE Risk Level:: Medical - low VTE Device Contraindication: N/A - Device Ordered VTE Drug Contraindication: Treatment Not Indicated
[2024-08-23 11:10] LABS: Glucose, Whole Blood 196 mg/dL (60-115)
[2024-08-23 11:20] VITALS: BP 158/77; PULSE 67; RESP 18; TEMP 36.3; O2SAT 95
[2024-08-23] MEDS: HYDROmorphone HCl 2 MG TABLET PO ×2 (12:01→17:52)
--- NOTE | 2024-08-23 12:33 | MHC.CM.PN ---
Per MD rounds patient medically cleared for dc home w/ 4 wks IV dapto. Abx through [facility], nursing to be provided by [facility]. [facility] RN to bedside for teach w/ patient, also performed virtual teach w/ Lana, daughter in law, who will assist PRN. [facility] aware of dc. Will get dose of dapto prior to dc and abx will be delivered tonight. Midline to be placed ~2pm. Family will transport home.
--- NOTE | 2024-08-23 12:53 | W.MHC.F2F ---
Service Date Service Date: 08/23/24 Encounter Date of encounter: 08/23/24 Reasons for Services Signs and symptoms assessed: flexor tenosynovitis, MSSA infection Reason for long-term: administration of IV, SQ, or IM injection and central line care MD Overseeing Care: Cassius Strong Homebound: Leaving the home is medically contraindicated at this time without the asist of a device and/or another person due th the listed conditions above and below. Reason homebound: immunosuppression / infection risk Certification: Based on the above findings, I certify that this patient is confined to the home and needs intermittent long-term care, physical therapy and/or speech therapy, or continues to need occupational therapy. The patient is under my care, and I have initiated the establishment of the plan of care. The patient will be followed by a physician who will periodically review the plan of care. Time Spent With Patient Time: Total time managing care of this patient today ____ minutes.
--- NOTE | 2024-08-23 13:06 | P.DS_ITS ---
DS: Providers Provider Date of Service: 08/23/24 Date of admission: 08/17/24 23:29 Date of discharge: 08/23/24 Primary care physician: Cassius Strong MD Consults: 08/17/24 23:33 Consult to Orthopedics Routine Consulting Provider: [facility] Orthopedic Surgeons Reason for consultation: Left index finger tenosinovitis Has provider been notified: Yes 08/19/24 08:09 Consult to Gastroenterology Routine Consulting Provider: [facility] Gastroenterology Services Reason for consultation: abd pain unclera etiology Has provider been notified: No 08/19/24 16:29 Consult to General Surgery Routine Consulting Provider: [facility] General Surgeons Reason for consultation: ? Ielus vs sbo Has provider been notified: No 08/22/24 09:35 Consult to Infectious Diseases Stat Consulting Provider: Nayeli Napier Reason for consultation: Left index finger mycobacterial tenosynovitis, and more recent acute purule DS: Diagnosis Discharge Diagnosis (1) Cellulitis of finger of left hand: Status: Acute (2) Tenosynovitis of finger: Status: Acute (3) Severe sepsis: Status: Acute (4) HTN (hypertension): Status: Acute DS: Summary Hospital Course Hospital Course: From the history and physical by the admitting hospitalist, Bradley Harden MD, 08/17/24: Deysi Armendariz is a 53 years old woman with past medical history significant for type 2 diabetes mellitus, asthma, hyperlipidemia, liver cirrhosis likely due BENEDICT with portal hypertension/gastropathy/esophageal varices, essential hypertension, Brugada syndrome and hypothyroidism presents to the emergency department complaining of worsening swollen to the left index finger associated with pain. She has had surgery on the left hand with Dr. Flynn for tendon repair. She developed a cyst to this finger in January of this year. She has been followed by her hand surgeon for this. She took a course of antibiotics and steroids about a week and a half ago for upper respiratory symptoms prescribed by her fitness management director. She reported chills and no suggestive fever. Complain of nausea but denied events of vomiting. She did not report any headache, dizziness, palpitations or any cardiopulmonary symptoms. In the ED, she was found to have fever of 101.5 and tachycardia. Systolic blood pressure dropped from 186/84 to 108/72. Blood workup is remarkable for leukocytosis of 16.2. There is no lactic acidosis. Hemoglobin is 12.4. Platelets are 140. Electrolyte imbalances platelet function. LFTs consult furosemide elevation of alk-phos CRP is 0.29. Left hand x-ray showed interval resection only with the majority of the trapezium with corticated osseous fragment in the surgical bed and degenerative changes more prominent at the 3rd metacarpophalangeal joint. ECG showed sinus tachycardia heart rate 112 beats per minute. ED tx: Vancomycin 1.5 g IV, Zosyn 3.375 g IV, Zanaflex 2 mg p.o., Dilaudid 2 mg IV, Zofran 4 mg IV 53yo F admitted with severe sepsis due to acute/chronic L index finger tenosynovitis/abscess. 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 Orthopedic Surgery was consulted. She underwent I+D and flexor tensynovectomy 08/19/24. Wound culture grew MSSA. The patient has a type 1 allergy to cephalexin. Infectious Disease was consulted and she was discharged on 4 weeks of daptomycin via midline cathter. Per the orthopedist, intraoperatively, the appearance was concerning for a mycobacterial infection. AFB culture was sent and is pending at the time of discharge. She will follow up with Infectious Disease as an outpatient. abdominal pain - Resolved with treatment of constipation. Per Gastroenterology consultation, no EGD required; tolerating diet. Incidental note was made of a cyst in the tail of the pancreas that can be followed up by Gastroenterology as an outpatient with MRI. hypertension - Carvedilol and losartan were continued. Amlodipine was added for improved control. She was discharged with VNA services for IV antibiotic administration. Time Attestation Discharge Coordination Time (in mins): 40 Quality: Safe Use of Opioids Does Pt have an Active Cancer Diagnosis on the Problem List?: No Quality: Stroke Does the patient have a stroke diagnosis?: No Physical Exam Vital Signs: Vital Signs: Last Vital Signs Temp 97.3 F 08/23/24 11:20 Pulse 67 08/23/24 11:20 Resp 18 08/23/24 11:20 BP 158/77 H 08/23/24 11:20 Pulse Ox 95 08/23/24 11:20 O2 Del Method Room Air 08/23/24 11:20 O2 Flow Rate 6 08/19/24 12:20 BMI result Body Mass Index 36.0 Gen: in no acute distress HEENT: sclera anicteric, moist mucus membranes Neck: supple Lungs: clear to auscultation bilaterally Heart: regular rate and rhythm, no murmurs Abd: soft, non-tender, non-distended Ext: no edema, intact surgical incisions L index finger with some induration; minimal erythema Skin: warm/well-perfused Neuro: alert and oriented x3, no focal findings Psych: appropriate affect DS: Data Data Completed and Pending Completed studies during hospitalization [Text1]: Laboratory Results WBC 5.6 X10*3/uL (4.8-10.8) 08/22/24 05:39 RBC 3.70 X10*6/uL (4.20-5.50) L 08/22/24 05:39 Hgb 10.3 g/dl (12.0-16.0) L 08/22/24 05:39 Hct 31.0 % (37.0-47.0) L 08/22/24 05:39 MCV 83.8 fL (80.0-98.0) 08/22/24 05:39 MCH 27.8 pg (27.0-33.0) 08/22/24 05:39 MCHC 33.2 g/dl (31.0-35.0) 08/22/24 05:39 RDW 13.6 % (11.0-16.0) 08/22/24 05:39 Plt Count 122 X10*3/uL (160-400) L D 08/22/24 05:39 MPV 10.3 fL (9.4-12.3) 08/22/24 05:39 Immature Gran % (Auto) 0.7 % (0.0-0.4) H 08/18/24 06:31 Neut % (Auto) 78.4 % (45-73) H 08/18/24 06:31 Lymph % (Auto) 10.8 % (20-40) L 08/18/24 06:31 [place] % (Auto) 9.9 % (2-11) 08/18/24 06:31 Eos % (Auto) 0.1 % (0-4) 08/18/24 06:31 Baso % (Auto) 0.1 % (0-2) 08/18/24 06:31 Lymph # (Auto) 2.1 X10*3/uL (1.2-4.9) 08/18/24 06:31 [place] # (Auto) 1.9 X10*3/uL (0.1-1.2) H 08/18/24 06:31 Eos # (Auto) 0.0 X10*3/uL (0.0-0.4) 08/18/24 06:31 Baso # (Auto) 0.0 X10*3/uL (0.0-0.2) 08/18/24 06:31 Abs Immat Gran (auto) 0.13 X10*3/uL (0.00-0.03) H 08/18/24 06:31 Absolute Neuts (auto) 14.9 x10*3/uL (2.0-8.3) H 08/18/24 06:31 Absolute Nucleated RBC 0.000 X10*3/uL (0.0-0.012) 08/22/24 05:39 Nucleated RBC % (auto) 0.0 /100WBC (0.0-0.2) 08/22/24 05:39 Smear Tech's Comments VERIFIED 08/18/24 06:31 ESR 7 MM/HR (0-20) 08/17/24 21:25 PT 13.8 SEC (10.9-12.4) H 08/18/24 06:31 INR 1.2 (0.9-1.1) H 08/18/24 06:31 Sodium 142 mmol/L (135-145) 08/23/24 05:29 Potassium 3.5 mmol/L (3.3-5.1) 08/23/24 05:29 Chloride 110 mmol/L (96-108) H 08/23/24 05:29 Carbon Dioxide 20 mmol/L (22-29) L 08/23/24 05:29 Anion Gap 16 (12-20) 08/23/24 05:29 BUN 7 mg/dL (9-16) L 08/23/24 05:29 Creatinine 0.88 mg/dL (0.5-1.4) 08/23/24 05:29 Estim Creat Clear Calc 81.8 08/23/24 05:29 Estimated GFR > 60 08/23/24 05:29 POC Glucose 196 mg/dL (60-115) H 08/23/24 11:07 Random Glucose 211 mg/dL (60-115) H 08/23/24 05:29 Lactic Acid 1.5 mmol/L (0.5-2.0) 08/17/24 21:25 Calcium 8.8 mg/dL (8.4-10.2) 08/23/24 05:29 Magnesium 1.9 mg/dL (1.6-2.6) 08/23/24 05:29 Total Bilirubin 1.2 mg/dL (0.0-1.0) H 08/20/24 07:17 Direct Bilirubin 0.4 mg/dL (0.0-0.5) 08/20/24 07:17 AST 17 U/L (5-31) 08/20/24 07:17 ALT 25 U/L (0-31) 08/20/24 07:17 Alkaline Phosphatase 87 U/L (39-117) 08/20/24 07:17 Total Creatine Kinase 104 U/L (26-140) 08/23/24 05:29 C-Reactive Protein 0.29 mg/dL (< or = 0.50) 08/17/24 21:25 Total Protein 6.0 g/dL (6.5-8.0) L 08/20/24 07:17 Albumin 3.4 g/dL (3.5-5.0) L 08/20/24 07:17 Lipase 15 U/L (8-78) 08/20/24 07:17 Random Vancomycin 5.8 mcg/mL (15-20) L 08/22/24 13:50 Impressions Hand X-Ray 08/17/24 20:56 IMPRESSION: 1. Interval resection involving the majority of the trapezium, with corticated osseous fragments in the surgical bed. 2. Degenerative arthritis throughout the metacarpophalangeal and interphalangeal joints, most prominent at the 3rd metacarpophalangeal joint, progressed when compared to the prior examination. Electronically signed by: John Ratliff MD 08/17/2024 09:49 PM EDT Abdomen/Pelvis CT 08/19/24 19:43 IMPRESSION: 1. A cause for the patient's acute abdominal pain has not been found. 2. No evidence of bowel obstruction or acute diverticulitis 3. Incidental note made of hepatic steatosis, splenomegaly, small amount of free intraperitoneal fluid and a small cystic mass in the tail the pancreas. MRI/MRCP is recommended for further evaluation. Fleischner guidelines were followed. Electronically signed by: Leland Ross MD 08/19/2024 10:29 PM [facility] Discharge Plan Discharge Anticipated Discharge Date/Time: 08/23/24 12:54 Patient Disposition: Home Health Service Discharge Diagnosis: acute/chronic L index finger tenosynovitis/abscess hypertension pancreatic tail cyst Referrals: Cassius Strong MD [Primary Care Provider] - 1 Week Nereida Delarosa MD [Physician] - 1 Month Nayeli Napier MD [Physician] - 2 Weeks Nisha Singer MD [Physician] - 1 Week Discharge Medications: New amlodipine 2.5 mg Tablet 2.5 mg PO DAILY Qty: 30 0RF Protocol: Hold for SBP< HOLD for SBP < : 90 daptomycin 350 mg Recon Soln 430 mg IV Q24H Qty: 1 0RF Continued (DME) blood pressure monitor Kit See Rx Instructions .Route Qty: 1 0RF Rx Instructions: As directed levalbuterol tartrate [Xopenex HFA] 45 mcg/actuation HFA aerosol inhaler 2 puff inhalation Q6H PRN (Reason: shortness of breath or wheezing) 30 Days Qty: 15 11RF (DME) pen needle, diabetic [BD Laura 2nd Gen Pen Needle] 32 gauge x /32 needle See Rx Instructions .ROUTE .COMPLEX Qty: 100 5RF Dose Instruction: USE TO INJECT FOUR TIMES DAILY DIRECTED Rx Instructions: USE TO INJECT FOUR TIMES DAILY DIRECTED ferrous sulfate [FeroSul] 325 mg (65 mg iron) tablet 325 mg PO DAILY Qty: 90 1RF cholecalciferol (vitamin D3) 50 mcg (2,000 unit) capsule 100 mcg PO BEDTIME Qty: 90 3RF (DME) FreeStyle Lite Strips Strip See Rx Instructions .Route Qty: 150 11RF Rx Instructions: As directed- checks 4-5 X/day ondansetron 8 mg tablet,disintegrating 8 mg PO Q8H PRN (Reason: nausea and vomiting) 10 Days Qty: 30 1RF atorvastatin 40 mg tablet 40 mg PO BEDTIME Qty: 90 1RF montelukast 10 mg tablet 10 mg PO BEDTIME 90 Days Qty: 90 3RF losartan 25 mg tablet 25 mg PO BEDTIME 90 Days Qty: 90 3RF loratadine 10 mg tablet 10 mg PO DAILY Qty: 90 0RF pyridostigmine bromide 60 mg tablet 60 mg PO QID levothyroxine [Synthroid] 112 mcg tablet 224 mcg PO DAILY@0600 Spiriva Respimat 1.25 mcg/actuation mist 2 puff INHALATION DAILY omeprazole 40 mg capsule,delayed release(DR/EC) 40 mg PO BID tizanidine 2 mg tablet 4 mg PO BEDTIME hydromorphone 2 mg tablet 2 mg PO Q8H PRN (Reason: pain) Rx Instructions: Partial Fill upon patient request. nystatin [Nystop] 100,000 unit/gram powder 1 appl topical BID calcium citrate 250 mg calcium tablet 250 mg PO BID insulin degludec [Tresiba FlexTouch U-100] 100 unit/mL (3 mL) insulin pen 8 unit subcut DAILY Fiasp FlexTouch U-100 Insulin 100 unit/mL (3 mL) insulin pen 1 sliding scale dose subcut TIDAC (DME) DIABETIC SHOES See Rx Instructions .Route .MEDSUPPLY Qty: 1 0RF Rx Instructions: DIABETIC SHOES - 1 PAIR - use as directed -- Dx: E11.9 -- diabetes mellitus (DME) lancets [FreeStyle Lancets] 28 gauge misc See Rx Instructions .MEDSUPPLY Qty: 150 4RF Rx Instructions: 5 times a day Fasenra 30 mg/mL syringe 30 mg subcut Q8W ipratropium bromide 42 mcg (0.06 %) spray,non-aerosol 2 spray intranasal DAILY (DME) nebulizers Misc See Rx Instructions .Route Rx Instructions: As directed carvedilol 6.25 mg tablet 6.25 mg PO DAILY Asmanex HFA 200 mcg/actuation HFA aerosol inhaler 2 puff inhalation BID epinephrine 0.3 mg/0.3 mL auto-injector 0.3 mg IM Q5M PRN (Reason: anaphylaxis) Discharge Orders: Discharge Order (Routine); Ordered 08/23/24 Ordered By: Jaehyun Ludwin Diet: Diabetic diet Activity on Discharge: As tolerated Stand Alone Forms: Patient Portal Discharge page Print Language: Senegalese Care Plan Goals: cure on infection Health Concerns: acute/chronic L index finger tenosynovitis/abscess hypertension pancreatic tail cyst Plan of Treatment: daptomycin 426 mg IV daily until 09/20/24; weekly labs while on daptomycin [CBCd, BMP, CPK] daily dressing changes with small amounts of Xeroform, nonstick gauze, and Kerlix follow up with Dr Singer from [facility] Hand Surgery in 1 week follow up with Dr Napier from [facility] Infectious Disease in 2 weeks follow up with Dr Delarosa from [facility] Gastroenterology in 1 month- to order imaging of pancreatic cyst Please follow up with your primary care doctor within 1 week. Return to the hospital if you experience recurrent or worsening symptoms. Assessment: See Discharge Summary.
[2024-08-23] MEDS: DAPTOMYCIN IV (13:36)
[2024-08-23] MEDS: SODIUM CHLORIDE 0.9% IV (13:36)
--- NOTE | 2024-08-23 15:08 | HO.MIDLINE ---
Midline Insertion MIDLINE INSERTION Diagnosis: finger infection Indication: 4wks Daptomycin Pertinent Labs: reviewed Technique: Using sterile technique including cap and mask, glove and drape, the right arm was prepped and draped in the usual sterile fashion of full barrier technique with CHG. Using ultrasound guidance, right basilic vein access was obtained 4fr single lumen non PASV POWERMidline trimmed to 13cm was positioned. The procedure was performed in [facility]. Ultrasound was used to document vein patency and for needle entry. A formal ultrasound picture was recorded. Vascular Respiratory Medicine Physician has released the line for use and it is currently dressed with a StatLock, Tegaderm, and CHG disc. Verification has been performed for blood return and line patency. Arm Circumference: 36cm Equipment: BARD POWERMIDLINE Catheter Catheter Type: 4FR single lumen nonPASV Lot #: [id number]
[2024-08-23 15:49] VITALS: BP 157/80; PULSE 75; RESP 12; TEMP 36.6; O2SAT 96
[2024-08-23 16:07] LABS: Glucose, Whole Blood 145 mg/dL (60-115)
[2024-08-23] MEDS: Heparin Sodium,Porcine Flush 50 UNITS, 0.9 % Sodium Chloride Flush 5 ML IVFLUSH (17:52)
== END 2024-08-23 19:19 | disposition home health service (06) | DRG 854 ==
LOC: HO.ED 21:51 → HO.EDOVER 23:41 → HO.S3 08-19 12:35
PROVIDERS: Hospitalist; Internal Medicine; Orthopaedic Surgery; Physician Assistant Medical; Admitting Provider Internal Medicine; Emergency Provider Internal Medicine; PCP Internal Medicine; Visit Provider Family Medicine
PROC: 0LB80ZZ Excision of Left Hand Tendon, Open Approach (ICD-10-PCS; principal; 2024-08-19 09:30)
DX: A41.9 Sepsis, unspecified organism (principal); A31.9 Mycobacterial infection, unspecified; D80.1 Nonfamilial hypogammaglobulinemia; K76.6 Portal hypertension; K86.2 Cyst of pancreas; M65.142 Other infective (teno)synovitis, left hand; R65.20 Severe sepsis without septic shock; K75.81 Nonalcoholic steatohepatitis (NASH); E66.813 Obesity, class 3; Z68.36 Body mass index [BMI] 36.0-36.9, adult; I10 Essential (primary) hypertension; E11.9 Type 2 diabetes mellitus without complications; G89.4 Chronic pain syndrome; E78.2 Mixed hyperlipidemia; I49.8 Other specified cardiac arrhythmias; J45.909 Unspecified asthma, uncomplicated; E87.6 Hypokalemia; L03.012 Cellulitis of left finger; K74.69 Other cirrhosis of liver; K59.00 Constipation, unspecified; B95.61 Methicillin susceptible Staphylococcus aureus infection as the cause of diseases classified elsewhere; E03.9 Hypothyroidism, unspecified; Z71.3 Dietary counseling and surveillance; D69.59 Other secondary thrombocytopenia; Z79.891 Long term (current) use of opiate analgesic; Z88.1 Allergy status to other antibiotic agents; Z79.4 Long term (current) use of insulin; Z79.620 Long term (current) use of immunosuppressive biologic; Z79.890 Hormone replacement therapy; Z79.899 Other long term (current) drug therapy
CPT/HCPCS: 36410; 36415; 73130; 74177; 80048; 80076; 80202; 82550; 82565; 82947; 83605; 83690; 83735; 85025; 85027; 85610; 85652; 86140; 87040; 87070; 87073; 87077; 87116; 87186; 87205; 87206; 88304; 93005; 94640; 99285; C1751; J0131; J0330; J0878; J1171; J1642; J2003; J2250; J2405; J2470; J2543; J2704; J3010; J3370; J3371; J7120; Q9967

== ENCOUNTER → 2024-08-17 20:57 | Outpatient (BNV) | payer OTHER, SELFPAY | PROVIDERS: Admitting Provider Internal Medicine; Emergency Provider Internal Medicine; PCP Internal Medicine; Visit Provider Internal Medicine | DX: R94.31 Abnormal electrocardiogram [ECG] [EKG] (principal) | CPT/HCPCS: 93010 ==

== ENCOUNTER → 2024-08-17 23:29 | Outpatient (BNV) | payer OTHER, SELFPAY | PROVIDERS: Admitting Provider Internal Medicine; Emergency Provider Internal Medicine; PCP Internal Medicine; Visit Provider Internal Medicine | DX: R10.12 Left upper quadrant pain (principal) | CPT/HCPCS: 99223; 99232 ==

== ENCOUNTER → 2024-08-17 23:29 | Outpatient (BNV) | payer OTHER, SELFPAY | PROVIDERS: Admitting Provider Internal Medicine; Emergency Provider Internal Medicine; PCP Internal Medicine; Visit Provider Surgery | DX: R10.12 Left upper quadrant pain (principal) | CPT/HCPCS: 99222 ==

== ENCOUNTER → 2024-08-17 23:29 | Outpatient (BNV) | payer OTHER, SELFPAY | PROVIDERS: Admitting Provider Internal Medicine; Emergency Provider Internal Medicine; PCP Internal Medicine; Visit Provider Internal Medicine | DX: M65.949 Unspecified synovitis and tenosynovitis, unspecified hand (principal) | CPT/HCPCS: 99222 ==

== ENCOUNTER → 2024-08-17 23:29 | Outpatient (BNV) | payer OTHER, SELFPAY | PROVIDERS: Admitting Provider Internal Medicine; Emergency Provider Internal Medicine; PCP Internal Medicine; Visit Provider Internal Medicine | DX: K86.2 Cyst of pancreas (principal); K59.00 Constipation, unspecified; R10.12 Left upper quadrant pain; M65.942 Unspecified synovitis and tenosynovitis, left hand | CPT/HCPCS: 99223; 99232; 99233; 99239; G0180 ==

== ENCOUNTER → 2024-08-17 23:29 | Outpatient (BNV) | payer OTHER, SELFPAY | PROVIDERS: Admitting Provider Internal Medicine; Emergency Provider Internal Medicine; PCP Internal Medicine; Visit Provider Physician Assistant | DX: L03.012 Cellulitis of left finger (principal); M65.842 Other synovitis and tenosynovitis, left hand | CPT/HCPCS: 26010; 26020; 99024; 99222 ==

== ENCOUNTER 2024-08-26 11:08 | Outpatient (AMB) | payer OTHER, SELFPAY ==
--- NOTE | 2024-08-26 11:11 | MHC.OFFVIS ---
Vital Signs 08/26/24 11:12 Height 5 ft 4 in Weight 216 lb 0.848 oz BMI 37.1 BP 130/64 Blood Pressure Location Lt brachial Position Sitting Pulse 71 Intake Visit Reasons: 4 month follow up Intake Note: Deysi presents in the office as a 4 month follow up. CC: She was seen in the ED and given antibiotics. She states she is having bouts of diarrhea and pains in the stomach possibly due to the antibiotic. She states that her stool is not normal and almost looks like bile. Allergies cephalexin Allergy (Severe, Verified 08/26/24 11:14) Difficulty Breathing latex [LATEX] Allergy (Severe, Verified 08/26/24 11:14) Difficulty Breathing levofloxacin [From LEVAQUIN] Allergy (Severe, Verified 08/26/24 11:14) SHORTNESS OF BREATH, RASH, rash morphine [MORPHINE] Allergy (Severe, Verified 08/26/24 11:14) RASH, asthma exacerbation, rash baclofen [BACLOFEN] Allergy (Intermediate, Verified 08/26/24 11:14) Rash celecoxib [Celebrex] Allergy (Intermediate, Verified 08/26/24 11:14) itching, rash, flushing prednisone [PREDNISONE] Allergy (Intermediate, Verified 08/26/24 11:14) RASH, asthma exacerbation, rash codeine Allergy (Unknown, Verified 08/26/24 11:14) Rash gluten [GLUTEN] Allergy (Unknown, Verified 08/26/24 11:14) UNKNOWN oxycodone Allergy (Unknown, Verified 08/26/24 11:14) rash ranitidine Allergy (Unknown, Verified 08/26/24 11:14) unknown roflumilast [Daliresp] Allergy (Unknown, Verified 08/26/24 11:14) rash tramadol [TRAMADOL] Allergy (Unknown, Verified 08/26/24 11:14) RASH,SHORTNESS OF BREATH AND HEADACHE, asthma exacerbation, rash celery Allergy (Verified 08/26/24 11:14) Rash cyclobenzaprine [From Flexeril] Allergy (Verified 08/26/24 11:14) Rash and asthma exacerbation environmental allergies Allergy (Verified 08/26/24 11:14) Cleaning products cause asthma attack pineapple Allergy (Verified 08/26/24 11:14) Rash strawberry Allergy (Verified 08/26/24 11:14) Rash sulfamethoxazole [From Bactrim] Adverse Reaction (Intermediate, Verified 08/26/24 11:14) vertigo trimethoprim [From Bactrim] Adverse Reaction (Intermediate, Verified 08/26/24 11:14) vertigo diazepam [From Valium] Adverse Reaction (Verified 08/26/24 11:14) Cough HPI HPI 4 month follow up: Details: 53-year-old female with past medical history of Brugada syndorme and non cirrhotic portal hypertension with history of variceal bleeding, who I am seeing for f/u RECAP: Pt with non cirrhotic portal hypertension issues with melena and anemia Upper endoscopy September 2023 with EVBL. Also had multiple gastric polyps. Path: Hyperplastic polyp without dysplasia. No H pylori. Further admission: EGD and colo 11/21/23 EVBL and gastric polyps removed EGD 05/08- nodular Portal HTN, variceal banding She was admitted with hand infection, and developed abdo pain from suspected ileus and constipation INTERIM: She is prolonged course of ABx for her hand infection she is not happy as causing her diarrhea and stomach upset, daptomycin thru IV mild nausea otherwise stable, hand is improving in patient, CT with panc cyst EXAM: GENERAL: The patient is well developed and nontoxic. VITAL SIGNS:see workflow HEENT: Nonicteric sclerae, PERRLA, EOMI. Oropharynx clear. Moist mucous membranes. Conjunctivae appear well perfused. No thyroid mass. CHEST: Chest wall is nontender. HEART: Regular rate and rhythm without murmurs. LUNGS: Clear to auscultation bilaterally. ABDOMEN: Soft, positive bowel sounds, nontender, no organomegaly.no flank tenderness SKIN: No rash, no excessive bruising, petechiae, or purpura. bandage on hand-left NEUROLOGIC: Cranial nerves II-XII intact without motor/sensory deficit. Psych: normal affect A/P: 1/ NRH of the liver with severe portal hypertension and congestion, prob causing her satiety etc 2/ hand infection 3/ panc cyst PLAN: 1/ cont with carvedilol and statin 2/ advised to add culturelle --will help her GI sx 3/ MRI for eval of panc cyst 4/ repeat EGD at some point [facility] Medical History HTN (hypertension) Anemia Chronic restrictive lung disease Brugada syndrome Shortness of breath Encounter for care related to Port-a-Cath Tinea pedis Recurrent cellulitis of lower extremity CHARLES (obstructive sleep apnea) Hypogammaglobulinemia Cellulitis of both lower extremities Right hip pain Lumbar degenerative disc disease Benign essential hypertension Obesity (BMI 30-39.9) Mitochondrial myopathy Asthma Diabetes mellitus History of revision of total replacement of right hip joint (~12/2019) Acquired hypothyroidism Pain of both hip joints Pure hypercholesterolemia Hx of cataract Osteopenia Hypothyroidism Osteoarthritis of hip Gastritis Surgical History (Updated 08/26/24 @ 11:14 by ARIC Morrow) Hx of hand surgery History of removal of Port-a-Cath History of total right hip arthroplasty (~06/03/19) History of eye surgery (~09/2017) History of hip surgery Hx of foot surgery (~01/02/19) History of removal of cyst Hx of left knee surgery History of elbow surgery (~07/2016) Hx of thumb surgery Hx of appendectomy Hx of hysterectomy (~07/2011) Hx of bilateral breast reduction surgery Family History Father Leukemia Mother Hypertension Diabetes Sister Alive and well Brother Pancreatic cancer Paternal Grandmother Stomach cancer Paternal Grandmother Throat cancer Social History Household Members: Family Housing: Apartment Do you presently have visiting nurse or other home services: No Alcohol intake: former Comment: refused bed alarm Patient Tobacco Use Status: Never used Tobacco e-Cigarette/Vaping Use: Never Used Second Hand Smoke Exposure: No Advance Directives Date on File: 10/02/23 service: No Current occupational status: disabled Cognitive needs: No Hearing needs: No Vision needs: No Physical Exam Vital Signs: Last Vital Signs Pulse 71 08/26/24 11:12 BP 130/64 08/26/24 11:12 BMI result Body Mass Index 37.1 Assessment & Plan Assessment & Plan (1) Pancreatic cyst: Code(s): K86.2 - Cyst of pancreas Category: Medical Plan: see above Orders: Orders MR abdomen wo/w con Today K86.2 - Cyst of pancreas Coding Level of Care Code Est Pt Level 4 (57789) Diagnoses Pancreatic cyst K86.2
[2024-08-26 11:12] VITALS: BP 130/64; PULSE 71; BMI 37.1
== END 2024-08-26 12:41 | disposition home or self-care (01) ==
PROVIDERS: PCP Internal Medicine; Visit Provider Internal Medicine Gastroenterology
DX: K86.2 Cyst of pancreas (principal)
CPT/HCPCS: 99214

== ENCOUNTER → 2024-08-26 11:08 | Outpatient (BNVA) | payer OTHER, SELFPAY | PROVIDERS: PCP Internal Medicine; Visit Provider Internal Medicine Gastroenterology | DX: R19.7 Diarrhea, unspecified (principal); K86.2 Cyst of pancreas | CPT/HCPCS: 99212 ==

== ENCOUNTER 2024-08-27 09:32 | Outpatient (AMB) | payer OTHER, SELFPAY ==
--- NOTE | 2024-08-27 09:35 | A.OFFPC_ITS ---
Vital Signs 08/27/24 09:36 08/27/24 10:05 Height 5 ft 4 in Weight 219 lb 0.4 oz BMI 37.6 BP 148/72 H 136/78 Blood Pressure Location Lt brachial Lt brachial Position Sitting Sitting Pulse 81 Pulse Source Pulse Oximeter Pulse Oximetry (%) 99 Oxygen Delivery Method Room Air Intake Visit Reasons: [facility] Finger Tenosynovitis 08/23 Intake Note: Patient is here for hospital discharge follow up. Patient was [place] [facility] [place] 08/23/24 Editor In Chief Required: No Allergies cephalexin Allergy (Severe, Verified 08/27/24 09:36) Difficulty Breathing latex [LATEX] Allergy (Severe, Verified 08/27/24 09:36) Difficulty Breathing levofloxacin [From LEVAQUIN] Allergy (Severe, Verified 08/27/24 09:36) SHORTNESS OF BREATH, RASH, rash morphine [MORPHINE] Allergy (Severe, Verified 08/27/24 09:36) RASH, asthma exacerbation, rash baclofen [BACLOFEN] Allergy (Intermediate, Verified 08/27/24 09:36) Rash celecoxib [Celebrex] Allergy (Intermediate, Verified 08/27/24 09:36) itching, rash, flushing prednisone [PREDNISONE] Allergy (Intermediate, Verified 08/27/24 09:36) RASH, asthma exacerbation, rash codeine Allergy (Unknown, Verified 08/27/24 09:36) Rash gluten [GLUTEN] Allergy (Unknown, Verified 08/27/24 09:36) UNKNOWN oxycodone Allergy (Unknown, Verified 08/27/24 09:36) rash ranitidine Allergy (Unknown, Verified 08/27/24 09:36) unknown roflumilast [Daliresp] Allergy (Unknown, Verified 08/27/24 09:36) rash tramadol [TRAMADOL] Allergy (Unknown, Verified 08/27/24 09:36) RASH,SHORTNESS OF BREATH AND HEADACHE, asthma exacerbation, rash celery Allergy (Verified 08/27/24 09:36) Rash cyclobenzaprine [From Flexeril] Allergy (Verified 08/27/24 09:36) Rash and asthma exacerbation environmental allergies Allergy (Verified 08/27/24 09:36) Cleaning products cause asthma attack pineapple Allergy (Verified 08/27/24 09:36) Rash strawberry Allergy (Verified 08/27/24 09:36) Rash sulfamethoxazole [From Bactrim] Adverse Reaction (Intermediate, Verified 08/27/24 09:36) vertigo trimethoprim [From Bactrim] Adverse Reaction (Intermediate, Verified 08/27/24 09:36) vertigo diazepam [From Valium] Adverse Reaction (Verified 08/27/24 09:36) Cough Tobacco use date assessed: 12/15/23 Dental Screening Dental Screen Date: 12/15/23 HPI TCM [facility] Finger Tenosynovitis 08/23 HPI Details 53-year-old female with past medical his tory of obstructive sleep apnea, liver cirrhosis, asthma, hypertension, hypothyroidism, hypercholesterolemia, anemia, diabetes last seen by Dr. Strong March 2024 coming in for hospital discharge follow up. In review of the notes, patient was seen in [facility] 08/17/2024 for worsening swelling of left index finger in the ER was found to have fever and tachycardia and started on vancomycin, Zosyn, Zanaflex and Dilaudid and admitted for severe sepsis due to acute/chronic left index finger tenosynovitis/abscess. She underwent incision and drainage [id number] with Orthopedic surgery and ID recommended 4 weeks of daptomycin via midline catheter. Hypertension worsened while admitted and amlodipine was added to medication regimen. Patient was advised to follow up with GI outpatient for monitoring of pancreatic cyst, follow up with ID for management of sepsis and discharge with VNA services 08/23/2024. Patient was seen by GI 08/26/2024 ordered MRI for evaluation of pancreatic cyst and we will at some point repeat EGD. Today she tells us the VNA has been coming to the house daily for antibiotic treatments and dressing changes. She has follow up with Orthopedics scheduled for tomorrow and we will see Infectious Disease later this week. Denies any fevers, nausea or vomiting. She has been having diarrhea with the antibiotics and discussed with GI who advised to trial Imodium as needed and started on digestive probiotic. She has no acute concerns today. [facility] TCM Information Date of Discharge 08/23/24 Discharged From [facility] Medical History HTN (hypertension) Anemia Chronic restrictive lung disease Brugada syndrome Shortness of breath Encounter for care related to Port-a-Cath Tinea pedis Recurrent cellulitis of lower extremity CHARLES (obstructive sleep apnea) Hypogammaglobulinemia Cellulitis of both lower extremities Right hip pain Lumbar degenerative disc disease Benign essential hypertension Obesity (BMI 30-39.9) Mitochondrial myopathy Asthma Diabetes mellitus History of revision of total replacement of right hip joint (~12/2019) Acquired hypothyroidism Pain of both hip joints Pure hypercholesterolemia Hx of cataract Osteopenia Hypothyroidism Osteoarthritis of hip Gastritis Surgical History (Updated 08/26/24 @ 11:14 by ARIC Morrow) Hx of hand surgery History of removal of Port-a-Cath History of total right hip arthroplasty (~06/03/19) History of eye surgery (~09/2017) History of hip surgery Hx of foot surgery (~01/02/19) History of removal of cyst Hx of left knee surgery History of elbow surgery (~07/2016) Hx of thumb surgery Hx of appendectomy Hx of hysterectomy (~07/2011) Hx of bilateral breast reduction surgery Family History Father Leukemia Mother Hypertension Diabetes Sister Alive and well Brother Pancreatic cancer Paternal Grandmother Stomach cancer Paternal Grandmother Throat cancer Social History Household Members: Family Housing: Apartment Do you presently have visiting nurse or other home services: No Alcohol intake: former Comment: refused bed alarm Patient Tobacco Use Status: Never used Tobacco e-Cigarette/Vaping Use: Never Used Second Hand Smoke Exposure: No Advance Directives Date on File: 10/02/23 service: No Current occupational status: disabled Cognitive needs: No Hearing needs: No Vision needs: No Questionnaire Thrive Questionnaire Date Thrive assessed: 08/20/24 AUDIT C Alcohol Use Questionnaire (AUDIT-C) 1. How often do you have a drink containing alcohol?: Never 3. How often do you have six or more drinks on one occasion?: Never Total Score: 0 Score Reviewed/Action Taken: Yes REI-7 AMB Questionnaire REI-7 Date REI - 7 assessed: 12/15/23 Source: Developed by Drs. Babak Mcintosh, Savannah Vera, Christian Crowell and colleagues, with an educational sarah from [employer]. Review of Systems Const Denies body aches, Denies chills, Denies fever(s), Denies headache(s) and Denies poor appetite Eyes Reports no additional complaints ENT Denies dizziness and Denies headache(s) Card Denies chest pain, Denies syncope, Denies edema, Denies irregular heart rhythm, Denies lightheadedness and Denies dyspnea Resp Denies cough and Denies dyspnea GI Denies abdominal pain, Denies constipation, Reports diarrhea, Denies nausea and Denies vomiting Reports no additional complaints Musc Reports no additional complaints and Denies abnormal gait Skin/Breast Reports system reviewed and no additional complaints, except as documented Neuro Denies abnormal gait, Denies dizziness, Denies syncope and Denies headache(s) Psych Reports no additional complaints Physical exam (Primary Care) Vital Signs: Last Vital Signs Pulse 81 08/27/24 09:36 BP 136/78 08/27/24 10:05 Pulse Ox 99 08/27/24 09:36 Oxygen Delivery Method Room Air 08/27/24 09:36 BMI result Body Mass Index 37.6 Tobacco/Smoking Status: Tobacco use Status Tobacco use date assessed 12/15/23 08/27/24 09:37 Patient Tobacco Use Status Never used Tobacco 08/27/24 09:37 e-Cigarette/Vaping Use Never Used 08/27/24 09:37 Thrive Assessment: Date of Thrive Assessment Date Thrive assessed 08/20/24 08/27/24 09:37 Const General: cooperative, healthy appearing, comfortable and no acute distress Orientation/consciousness: patient oriented x3 HENMT Head: Yes normocephalic Ears: hearing grossly normal bilaterally General nose exam: Normal external nose present Eyes General: appearance normal, both eyes and all related structures Conjunctivae: conjunctivae normal Neck Neck: Yes full ROM and Yes no lymphadenopathy Resp Effort & Inspection: normal respiratory effort Auscultation: clear to auscultation bilaterally, no crackles, no rales, no rhonchi and no wheezes Cardio Rate: regular rate Rhythm: regular rhythm Skin Other: surgical incision with routine healing with very mild erythema. No drainage or warmth. 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 Avoid salt intake and encourage healthy diet and regular exercise. (2) Pancreatic cyst: Code(s): K86.2 - Cyst of pancreas Category: Medical Plan: Patient was seen by GI who placed order for MRI for further evaluation. (3) Tenosynovitis of finger: Code(s): M65.949 - Unspecified synovitis and tenosynovitis, unspecified hand Category: Medical Plan: Patient states she is doing well since discharge from the hospital. She has VNA services who are administering IV antibiotics and managing wound dressing. She is scheduled to see orthopedics tomorrow and Infectious Disease later this week. Patient states she has had increased redness around the wound however on exam no evidence of infection at this time. Advised patient to continue to monitor her symptoms and reviewed red flag symptoms and when to present to the ER. Wound was dressed during this appointment using nonadherent dressings, bacitracin and gauze wrapping as advised by orthopedic surgeon. 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 Although fruits are generally healthy they should be eaten in moderation as they are still high in sugar. Hemoglobin A1c goal of less than 7%. Plan This note was constructed using voice recognition software. While every effort has been made to ensure accuracy and biomass production manager, still areas may have been included sometimes these areas may affect the content or meeting of the given symptoms. Total time spent caring for the patient today was 30 minutes. This includes time spent before the visit reviewing the chart, time spent during the visit, and time spent after the visit and documentation.
[2024-08-27 09:36] VITALS: BP 148/72; PULSE 81; O2SAT 99; BMI 37.6
[2024-08-27 10:05] VITALS: BP 136/78
== END 2024-08-27 10:22 | disposition home or self-care (01) ==
PROVIDERS: PCP Internal Medicine
DX: I10 Essential (primary) hypertension (principal); K86.2 Cyst of pancreas; M65.949 Unspecified synovitis and tenosynovitis, unspecified hand; E13.9 Other specified diabetes mellitus without complications

== ENCOUNTER → 2024-08-27 14:01 | Outpatient (REF) | payer OTHER, SELFPAY ==
--- NOTE | 2024-08-27 14:04 | CA_ITS ---
Transthoracic Echocardiogram Patient (Last, First, Middle): Deysi Armendariz R Gender: Female Date of : 1970 Age: 53 Procedure Date: 08/27/2024 Procedure Type: Transthoracic Echocardiogram Location: OP Height: 162. cm Weight: 97.52 kg BSA: 2.01 m2 Heart Rate: 65 bpm BP: 152 / 80 mmHg Oil Process Stillman: SERGIO Referring MD: Saturnino Vanegas MD Symptoms: I27.20 - Pulmonary hypertension, unspecified Study Quality: Adequate ECG Rhythm: Sinus Conclusions: - The left ventricular systolic function is normal. The calculated ejection fraction is 64% by biplane method. - No obvious valvular pathology seen on this study. - There is no evidence of pulmonary hypertension. - There is mild dilatation of the ascending aorta measuring 3.90 cm. Findings Left Ventricle Normal left ventricular cavity size. The left ventricular systolic function is normal. The calculated ejection fraction is 64% by biplane method. There is no evidence of regional wall motion abnormalities. Diastolic function is normal for age. There is moderate septal asymmetric hypertrophy. Right Ventricle Normal right ventricular cavity size and systolic function. Atria The left atrium is mildly dilated. The right atrium is normal in size. Aortic Valve There is a normal trileaflet aortic valve. There is no aortic valve stenosis. There is no aortic valve regurgitation. Mitral Valve The mitral valve appears normal. There is trace mitral valve regurgitation. There is no mitral valve stenosis. Pulmonic Valve The pulmonic valve is likely normal. Tricuspid Valve There is mild tricuspid valve regurgitation. There is no evidence of pulmonary hypertension. Great Vessels The aortic arch is normal in size. There is mild dilatation of the ascending aorta measuring 3.90 cm. Venous The inferior vena cava is mildly dilated and collapses greater than 50% with inspiration. Pericardium/Pleural There is no evidence of pericardial effusion. Prior Study Comparison Changes noted compared to prior study dated: 10/04/2021. Increase in ascending aortic size. Recommendations, Care & Conclusions No obvious valvular pathology seen on this study. Measurements 2D Linear Measurements IVSd: 1.29 0.6-0.9/0.6-1.0 cm LVIDd: 4.73 3.9-5.3/4.2-5.9 cm LVIDd Index: 2.35 2.4-3.2/2.2-3.1 cm/m2 LVIDs: 2.86 2.0-3.6 cm LVPWd: 0.96 0.7-1.1 cm LA Diam: 3.60 2.7-3.8/3.0-4.0 cm LAIDs Index: 1.79 1.5-2.3 cm/m2 LV Mass: 243.31 67-162/88-224 g LV Mass Index: 121.05 43-95/49-115 g/m2 LVOT Diam: 2.00 3.0+(-)1.3 cm 2D Systolic Function EF 4C: 63.70 >55% EF 2C: 68.90 >55% EF BiP: 64.10 >55% Mitral Valve MV Pk E: 0.88 MV PK A: 0.82 MV Decel Time: 213.00 E/A: 1.10 E'Lateral: 12.20 E'Medial: 10.40 E/E' Med: 8.40 E/E' Lat: 7.20 PHT: 62.00 MVA PHT: 3.55 Decel [place]: 4.13 Aortic Valve AoV Pk Ad: 1.83 AoV Mn Ad: 1.26 AoV VTI: 0.40 AoV Pk Grad: 13.00 Aov Mn Grad: 7.00 ANITA Cont.VTI: 2.10 LVOT LVOT Pk Ad: 1.11 LVOT Mn Ad: 0.83 LVOT VTI: 0.27 LVOT Pk Grad: 5.00 LVOT Mn Grad: 3.00 LVOT Diam: 2.00 LVOT Area: 3.14 Diastolic Function MV Pk E: 0.88 MV Pk A: 0.82 E/A: 1.10 E'Medial: 10.40 E/E' Med: 8.40 E' Laterial: 12.20 E/E' Lat: 7.20 Right Ventricle TAPSE (mm): 24.90 TVS' Ad: 11.00 Tricuspid Valve TR Pk Ad: 1.82 TR Pk Grad: 13.00 RA Press: 8.00 RVSP: 21.00 Great Vessels Aorta Sinus of Valsalva: 3.20 2.0-3.5 cm Ao Asc: 3.90 2.1-3.4 cm Ao Arch: 3.20 Pulmonary Valve PV Pk Ad: 0.92 Peak PV Grad: 3.00 Updated in Other Vendor System with Status of Final Ángel Kang MD electronically signed on 08/27/2024 3:57:12 PM with status of Final
== END ==
LOC: HO.CARD 14:01
PROVIDERS: PCP Internal Medicine; Visit Provider Hospitalist
DX: I27.20 Pulmonary hypertension, unspecified (principal); J45.50 Severe persistent asthma, uncomplicated
CPT/HCPCS: 93306; 99495

== ENCOUNTER → 2024-08-27 14:04 | Outpatient (BNV) | payer OTHER, SELFPAY | PROVIDERS: PCP Internal Medicine; Visit Provider Internal Medicine | DX: I42.2 Other hypertrophic cardiomyopathy (principal); I36.1 Nonrheumatic tricuspid (valve) insufficiency | CPT/HCPCS: 93306 ==

== ENCOUNTER 2024-08-28 10:01 | Outpatient (AMB) | payer OTHER, SELFPAY ==
[2024-08-28 10:02] VITALS: BMI 37.6
--- NOTE | 2024-08-28 10:02 | A.OFFVIS_ITS ---
Vital Signs 08/28/24 10:02 Height 5 ft 4 in Weight 219 lb BMI 37.6 Intake Visit Reasons: PO: irrigation and debridement of LT IF 08/19/24 AR Intake Note: Deysi is a 53 yo - hand dominant female who presents today post operatively s/p irrigation and debridement of the left index finger done 08/19/[address] Singer. Patient reports she is doing well. She is taking Tylenol and Dilaudid for pain. Denies numbness, tingling, or finger locking. Allergies cephalexin Allergy (Severe, Verified 09/11/24 12:25) Difficulty Breathing latex [LATEX] Allergy (Severe, Verified 09/11/24 12:25) Difficulty Breathing levofloxacin [From LEVAQUIN] Allergy (Severe, Verified 09/11/24 12:25) SHORTNESS OF BREATH, RASH, rash morphine [MORPHINE] Allergy (Severe, Verified 09/11/24 12:25) RASH, asthma exacerbation, rash baclofen [BACLOFEN] Allergy (Intermediate, Verified 09/11/24 12:25) Rash celecoxib [Celebrex] Allergy (Intermediate, Verified 09/11/24 12:25) itching, rash, flushing prednisone [PREDNISONE] Allergy (Intermediate, Verified 09/11/24 12:25) RASH, asthma exacerbation, rash codeine Allergy (Unknown, Verified 09/11/24 12:25) Rash gluten [GLUTEN] Allergy (Unknown, Verified 09/11/24 12:25) UNKNOWN oxycodone Allergy (Unknown, Verified 09/11/24 12:25) rash ranitidine Allergy (Unknown, Verified 09/11/24 12:25) unknown roflumilast [Daliresp] Allergy (Unknown, Verified 09/11/24 12:25) rash tramadol [TRAMADOL] Allergy (Unknown, Verified 09/11/24 12:25) RASH,SHORTNESS OF BREATH AND HEADACHE, asthma exacerbation, rash celery Allergy (Verified 09/11/24 12:25) Rash cyclobenzaprine [From Flexeril] Allergy (Verified 09/11/24 12:25) Rash and asthma exacerbation environmental allergies Allergy (Verified 09/11/24 12:25) Cleaning products cause asthma attack pineapple Allergy (Verified 09/11/24 12:25) Rash strawberry Allergy (Verified 09/11/24 12:25) Rash sulfamethoxazole [From Bactrim] Adverse Reaction (Intermediate, Verified 09/11/24 12:25) vertigo trimethoprim [From Bactrim] Adverse Reaction (Intermediate, Verified 09/11/24 12:25) vertigo diazepam [From Valium] Adverse Reaction (Verified 09/11/24 12:25) Cough HPI HPI PO: irrigation and debridement of LT IF 08/19/24 AR: Details: The patient is a 53-year-old [id number] woman who is status post an I&D of her left index finger. She presented with a picture of an acute purulent infection on top of an ongoing chronic picture that has been going on for at least 8-12 months. At the time of surgery we found yellow purulent material between the dorsal aspect of the middle phalanx level and the palmar aspect of the finger. We also found evidence of a more chronic likely infectious versus inflammatory picture within the flexor tendon sheath of the left index finger. It was yellow multi lobular and rather solid. A tenosynovectomy was performed and specimens were sent for aerobic anaerobic as well as AFB and fungal cultures, and histopathology. The patient feels that her finger is improving particularly at the proximal and middle phalanx level, and then also back in the 1st webspace area where she had had a fullness for several months. However, she notices that she still has some erythema and swelling over the A1 temitope area of the index finger. She is currently on a 4 week course of IV daptomycin with Dr. Zaldivar for the acute MSSA infection. Cultures are still pending for possible AFB and fungal etiologies for her more chronic flexor tendon inflammation. The patient reports that all of her symptoms for this left index finger seemed to start in about September of 2023 around the time she had a GI bleed. She also reports that she had a left index finger trigger finger release sometime earlier with Dr. Latif at [facility]. After the trigger release she said she was able initially to actively flex and extend the finger, but developed some thickened areas of swelling around the A1 temitope area and in her palm. She also had an I&D of a blister-like area on the dorsal aspect of the index finger middle phalanx, in the area that we again had a similar blister of purulence, back in January of [address] Latif.. She reports that for a while she could push along the flexor tendon sheath of the index finger and have fluid and some yellowish material come out of that blister-like area on the dorsal aspect of the middle phalanx. She believes that she has not been able to actively flex the index finger for at least 8 [address]. It sounds like Dr. Latif put in a referral for Infectious Disease to meet with her. The request was made in July and she is scheduled to be seen on 09/02/2024. [facility] Medical History (Updated 09/16/24 @ 11:22 by Nisha Singer MD) Renal insufficiency Obesity (BMI 30-39.9) Mitochondrial myopathy Diabetes mellitus Portal hypertensive gastropathy Esophageal varices determined by endoscopy Portal hypertension HTN (hypertension) Anemia Chronic restrictive lung disease Brugada syndrome Shortness of breath Encounter for care related to Port-a-Cath Tinea pedis Recurrent cellulitis of lower extremity CHARLES (obstructive sleep apnea) Hypogammaglobulinemia Cellulitis of both lower extremities Right hip pain Lumbar degenerative disc disease Benign essential hypertension Asthma Acquired hypothyroidism Pure hypercholesterolemia Hx of cataract Osteopenia Osteoarthritis of hip Gastritis Surgical History History of revision of total replacement of right hip joint (~12/2019) Hx of hand surgery History of removal of Port-a-Cath History of total right hip arthroplasty (~06/03/19) History of eye surgery (~09/2017) History of hip surgery Hx of foot surgery (~01/02/19) History of removal of cyst Hx of left knee surgery History of elbow surgery (~07/2016) Hx of thumb surgery Hx of appendectomy Hx of hysterectomy (~07/2011) Hx of bilateral breast reduction surgery Family History Father Leukemia Mother Hypertension Diabetes Sister Alive and well Brother Pancreatic cancer Paternal Grandmother Stomach cancer Paternal Grandmother Throat cancer Social History Household Members: Family Housing: Apartment Do you presently have visiting nurse or other home services: No Alcohol intake: never Comment: refused bed alarm Patient Tobacco Use Status: Never used Tobacco e-Cigarette/Vaping Use: Never Used Second Hand Smoke Exposure: No Advance Directives Date on File: 10/02/23 service: No Current occupational status: disabled Current occupation: rt handed Cognitive needs: No Hearing needs: No Vision needs: No Physical Exam Vital Signs: BMI result Body Mass Index 37.6 Extrem Other: Patient was alert oriented and in no acute distress. She still has some swelling and mild erythema over the A1 temitope area of the left index finger. She had an old blister over this area that I debrided in clinic today. This suture was removed. She only had some mild serous drainage. The incisions over the volar aspect of the middle and proximal phalanx and over the dorsal aspect of the middle phalanx were all well healed. Sutures were removed. There was significant improvement in swelling, and she no longer had Niels any erythema in the finger distal to the palmar digital flexion crease. The patient also appreciated that she used to have a focal area of swelling in the 1st webspace area for several months before this, and this appears to have improved. So again we just have an area of mild erythema and swelling still in the A1 temitope area. No fluctuance, only minimally tender. The index finger is held in extension. She has no active flexion at the PIP or D IP joints of the index finger, and reports that she has not had any active flexion in that finger for 8-12 months. Good active flexion and extension of the middle ring and small fingers and the thumb. Overall she is happy with the improved appearance of her finger. Summary results: Histopathology: Diagnosis Soft tissue, left index finger, excision: Dense fibrovascular tissue with acute and chronic inflammation and necrosis; negative for malignancy. Comment: Please correlate with microbiology studies Electronically Signed By: Chetan Shay MD 08/20/24 8785 Patient: Deysi Armendariz Age/Sex: 53/F MR#: [id number] Cultures: Gram stain Final 08/19/24-1538 Gram stain results: 1+ polys 4+ red blood cells No organisms seen Routine Culture Final 08/22/24-0810 Organism 1 Staphylococcus aureus Quantity 1+ S aureus M.I.C. RX --------- --- Clindamycin <=0.25 R Erythromycin >=8 R Levofloxacin <=0.12 S Oxacillin <=0.25 S Penicillin-G >=0.5 R Tetracycline <=1 S Trimethoprim/Sulfamethoxazole <=10 S Anaerobic Culture Final 08/24/24-1050 Report No anaerobes isolated. Acid-Fast Smear Final 08/27/24-1011 Acid-Fast Smear No acid-fast bacilli seen. Acid-Fast Culture PENDING Assessment & Plan Assessment & Plan (1) Infection of hand: Code(s): L08.9 - Local infection of the skin and subcutaneous tissue, unspecified Category: Medical Plan Assessment and plan: 1. Left index finger acute purulent infection 2. Left index finger acute purulent flexor tenosynovitis These symptoms began about a week before presentation to [facility] 3. Left index finger chronic flexor tenosynovitis This has been going on for 8-12 months, managed at [facility] by Dr. Latif May have begun following a simple index finger A1 temitope release. Underwent an I&D at [facility] in January of 2024. Per patient report she continued to develop chronic swelling of index finger with lack of active flexion of the index finger for at least 8 months. Patient last seen in July of 2024 and referred to [facility] Infectious Disease. She has an appointment scheduled with them for 09/02/2024 that was made weeks ago. The patient is being treated with a 4 week course of IV daptomycin by our infectious disease doctor, Dr. Napier Cultures: MSSA She appears to be having good resolution of the acute purulent infection, particularly in the index finger itself. Still some mild erythema and swelling around the A1 temitope area. Preliminary AFB swab was negative AFB cultures will take a while and are still pending Regarding the chronic presentation of the left index finger, clinical and intra operative picture appears most consistent with a possible mycobacterial infection of the flexor tendon sheath which is likely been going on for several months. Other possibilities are autoimmune inflammatory, though less likely. She will continue with daily wound care. Follow up in 2 weeks for a wound check. She knows to follow up sooner if she is having any increased pain swelling or drainage or any other concerns. She is also going to work on gentle passive range of motion exercises to improve at least passive range of motion of the index finger. Given that she has not had any active flexion of the index finger for at least 8 months, she would likely require an operative and more extensive flexor tenosynovectomy and release of adhesions between the flexor tendons and the flexor tendon sheath to regain active flexion of the digit. Any infectious process would need to be properly identified and well underway to resolution. Contact Dr. Latif, attending hand surgeon at [facility] Keep appointment with [facility] Infectious Disease, as they may have a plan based on previous operative treatment and findings by hand surgeon at [facility]. Coding Level of Care Code Global (70206) Diagnoses Infection of hand L08.9
== END 2024-08-28 10:50 | disposition home or self-care (01) ==
PROVIDERS: PCP Internal Medicine; Visit Provider Orthopaedic Surgery
DX: L08.9 Local infection of the skin and subcutaneous tissue, unspecified (principal)
CPT/HCPCS: 99024

== ENCOUNTER → 2024-08-28 10:01 | Outpatient (BNVA) | payer OTHER, SELFPAY | PROVIDERS: PCP Internal Medicine; Visit Provider Orthopaedic Surgery | DX: M65.98 Unspecified synovitis and tenosynovitis, other site (principal); L08.9 Local infection of the skin and subcutaneous tissue, unspecified; Z48.817 Encounter for surgical aftercare following surgery on the skin and subcutaneous tissue; Z98.890 Other specified postprocedural states | CPT/HCPCS: 99212 ==

== ENCOUNTER 2024-08-30 11:59 | Outpatient (REF) | payer OTHER, SELFPAY ==
[2024-08-30 12:26] LABS: Anion Gap 14 (12-20); Blood Urea Nitrogen 16 mg/dL (9-16); Calcium 9.5 mg/dL (8.4-10.2); Carbon Dioxide 23 mmol/L (22-29); Chloride 104 mmol/L (96-108); Estimated Glomerular Filt Rate 37; Glucose Random 269 mg/dL (60-115); Potassium 4.2 mmol/L (3.3-5.1); Sodium 137 mmol/L (135-145)
== END 2024-08-30 12:00 | disposition home or self-care (01) ==
LOC: HO.HVNA 11:59
PROVIDERS: Visit Provider Internal Medicine
DX: M65.949 Unspecified synovitis and tenosynovitis, unspecified hand (principal)
CPT/HCPCS: 36415; 80048; 82550

== ENCOUNTER 2024-09-02 14:11 | Outpatient (AMB) | payer OTHER, SELFPAY ==
--- NOTE | 2024-09-02 14:36 | A.OFFVIS_ITS ---
Vital Signs 3 09/02/24 14:41 Height 5 ft 4 in Weight 222 lb BMI 38.1 Pulse 67 Pulse Source Pulse Oximeter Temp 99.6 F Temp Source Oral Pulse Oximetry (%) 96 Oxygen Delivery Method Room Air Intake Visit Reasons: [facility] – [place], [place] reffLeft index finger mycobacterial/dapto Allergies cephalexin Allergy (Severe, Verified 09/11/24 12:25) Difficulty Breathing latex [LATEX] Allergy (Severe, Verified 09/11/24 12:25) Difficulty Breathing levofloxacin [From LEVAQUIN] Allergy (Severe, Verified 09/11/24 12:25) SHORTNESS OF BREATH, RASH, rash morphine [MORPHINE] Allergy (Severe, Verified 09/11/24 12:25) RASH, asthma exacerbation, rash baclofen [BACLOFEN] Allergy (Intermediate, Verified 09/11/24 12:25) Rash celecoxib [Celebrex] Allergy (Intermediate, Verified 09/11/24 12:25) itching, rash, flushing prednisone [PREDNISONE] Allergy (Intermediate, Verified 09/11/24 12:25) RASH, asthma exacerbation, rash codeine Allergy (Unknown, Verified 09/11/24 12:25) Rash gluten [GLUTEN] Allergy (Unknown, Verified 09/11/24 12:25) UNKNOWN oxycodone Allergy (Unknown, Verified 09/11/24 12:25) rash ranitidine Allergy (Unknown, Verified 09/11/24 12:25) unknown roflumilast [Daliresp] Allergy (Unknown, Verified 09/11/24 12:25) rash tramadol [TRAMADOL] Allergy (Unknown, Verified 09/11/24 12:25) RASH,SHORTNESS OF BREATH AND HEADACHE, asthma exacerbation, rash celery Allergy (Verified 09/11/24 12:25) Rash cyclobenzaprine [From Flexeril] Allergy (Verified 09/11/24 12:25) Rash and asthma exacerbation environmental allergies Allergy (Verified 09/11/24 12:25) Cleaning products cause asthma attack pineapple Allergy (Verified 09/11/24 12:25) Rash strawberry Allergy (Verified 09/11/24 12:25) Rash sulfamethoxazole [From Bactrim] Adverse Reaction (Intermediate, Verified 09/11/24 12:25) vertigo trimethoprim [From Bactrim] Adverse Reaction (Intermediate, Verified 09/11/24 12:25) vertigo diazepam [From Valium] Adverse Reaction (Verified 09/11/24 12:25) Cough HPI HPI [facility] reffLeft index finger mycobacterial/dapto: Details: She has left index finger swelling. She is taking Daptomycin and has CK of 376 on 08/30. She is done with six weeks IV Daptomuycin on 09/29. She has scaling and not much improvement. [facility] Medical History Portal hypertension HTN (hypertension) Anemia Chronic restrictive lung disease Brugada syndrome Shortness of breath Encounter for care related to Port-a-Cath Tinea pedis Recurrent cellulitis of lower extremity CHARLES (obstructive sleep apnea) Hypogammaglobulinemia Cellulitis of both lower extremities Right hip pain Lumbar degenerative disc disease Benign essential hypertension Obesity (BMI 30-39.9) Mitochondrial myopathy Asthma Diabetes mellitus Acquired hypothyroidism Pain of both hip joints Pure hypercholesterolemia Hx of cataract Osteopenia Hypothyroidism Osteoarthritis of hip Gastritis Surgical History History of revision of total replacement of right hip joint (~12/2019) Hx of hand surgery History of removal of Port-a-Cath History of total right hip arthroplasty (~06/03/19) History of eye surgery (~09/2017) History of hip surgery Hx of foot surgery (~01/02/19) History of removal of cyst Hx of left knee surgery History of elbow surgery (~07/2016) Hx of thumb surgery Hx of appendectomy Hx of hysterectomy (~07/2011) Hx of bilateral breast reduction surgery Family History Father Leukemia Mother Hypertension Diabetes Sister Alive and well Brother Pancreatic cancer Paternal Grandmother Stomach cancer Paternal Grandmother Throat cancer Social History Household Members: Family Housing: Apartment Do you presently have visiting nurse or other home services: No Alcohol intake: never Comment: refused bed alarm Patient Tobacco Use Status: Never used Tobacco e-Cigarette/Vaping Use: Never Used Second Hand Smoke Exposure: No Advance Directives Date on File: 10/02/23 service: No Current occupational status: disabled Current occupation: rt handed Cognitive needs: No Hearing needs: No Vision needs: No Review of Systems Const All systems reviewed & are unremarkable except as noted in HPI and below Physical Exam Vital Signs: Last Vital Signs Temp 99.6 F 09/02/24 14:41 Pulse 67 09/02/24 14:41 Pulse Ox 96 09/02/24 14:41 Oxygen Delivery Method Room Air 09/02/24 14:41 BMI result Body Mass Index 38.1 Const General: cooperative HEENT Head: Yes normal to inspection Face and sinus: Yes normal facial exam Mouth: Normal oral and palatal mucosa present Teeth and gingiva: dentition normal Eyes General: appearance normal, both eyes and all related structures Pupils: Equal, round and reactive pupils present Resp Effort & Inspection: normal respiratory effort Cardio Rate: regular rate Rhythm: regular rhythm GI Palpation (GI): Soft to palpation and nontender General: Yes no CVA tenderness Back/Spine/Pelvis Back: no CVA tenderness Skin General skin exam: no rashes or lesions noted Neuro General: moves all extremities Cranial nerves: Yes Equal, round and reactive pupils present Extrem Other: General: Yes normal to inspection Psych Appearance: grossly normal Assessment & Plan Assessment & Plan (1) Tenosynovitis of finger: Comment: She has finger swelling still,doesnt look much better. Code(s): M65.949 - Unspecified synovitis and tenosynovitis, unspecified hand Category: Medical Plan: Continue Daptomycin See next week. Coding Level of Care Code Est Pt Level 3 (87132) Diagnoses Tenosynovitis of finger M65.949
[2024-09-02 14:41] VITALS: PULSE 67; TEMP 37.6; O2SAT 96; BMI 38.1
== END 2024-09-02 15:50 | disposition home or self-care (01) ==
PROVIDERS: PCP Internal Medicine; Visit Provider Internal Medicine
DX: M65.949 Unspecified synovitis and tenosynovitis, unspecified hand (principal)
CPT/HCPCS: 99213

== ENCOUNTER → 2024-09-02 14:11 | Outpatient (BNVA) | payer OTHER, SELFPAY | PROVIDERS: PCP Internal Medicine; Visit Provider Internal Medicine | DX: M65.942 Unspecified synovitis and tenosynovitis, left hand (principal) | CPT/HCPCS: 99212 ==

== ENCOUNTER 2024-09-03 14:10 | Emergency (ER) | payer OTHER, SELFPAY ==
--- NOTE | ~2024-09-03 | US_ITS ---
EXAMINATION: US TRIPLEX UPPER EXTREMITY, RIGHT CLINICAL INFORMATION: Right upper extremity swelling and pain. Recently placed right basilic vein midline COMPARISON: 03/15/2019 TECHNIQUE: Color-flow triplex imaging with spectral analysis and compression Doppler was performed on the right upper extremity. FINDINGS: Echogenic thrombus is seen within the right axillary vein and basilic vein. There is a PICC line/midline catheter within the right basilic vein. Occlusive changes seen on color flow and duplex venous waveforms The right internal jugular and subclavian veins are patent and free of thrombus. The imaged segment of the right brachial vein is patent. Spectral doppler waveforms are normal. The brachial, cephalic, radial, and ulnar veins are patent and compressible. US/US venous duplex UE RT IMPRESSION: Catheter related deep venous thrombosis involving the right axillary vein and basilic vein. Electronically signed by: Joaquin Hampton MD 09/03/2024 04:02 PM [facility] Workstation: [id number]
[2024-09-03 14:49] VITALS: BP 188/88; PULSE 92; RESP 20; TEMP 36.9; O2SAT 100; BMI 38.0
--- NOTE | 2024-09-03 14:49 | ED.EXTPRO ---
HPI - Extremity Problem General Chief complaint: General Medical Stated complaint: R arm swelling/pain Time Seen by Provider: 09/03/24 19:47 Source: patient Limitations: no limitations History of Present Illness ED Provider: Dr. Can Pichardo HPI Narrative: 53 years old woman with past medical history significant for type 2 diabetes mellitus, asthma, hyperlipidemia, liver cirrhosis secondary to BHARDWAJ with portal hypertension/gastropathy/esophageal varices, essential hypertension, Brugada syndrome, hypothyroidism [place] [facility] 08/23/2024 for left index finger tenosynovitis/abscess treated with I and D of the flexor tenosynovitis on 08/19/2024, discharged home on daptomycin 430 mg IV through right PICC line in the medial biceps area who presents emergency department for evaluation of swelling, heaviness and tightness to the right arm which began at 03:30 hours this morning. She states she was having pain in the right arm. She denied fever but did have chills. She denied chest pain, shortness of breath, dyspnea on exertion. She states she has had persistent nausea with no vomiting and diarrhea but she attributes this to the IV antibiotics that she was receiving. Related Data Home Medications ?Medication ?Instructions ?Recorded ?Confirmed ipratropium bromide 42 mcg (0.06 2 spray intranasal DAILY 03/11/21 08/26/24 %) nasal spray benralizumab 30 mg/mL subcutaneous 30 mg subcut Q8W 10/06/22 08/26/24 syringe (Fasenra) nebulizers 03/09/23 08/26/24 carvedilol 6.25 mg tablet 6.25 mg PO DAILY for blood pressure 04/15/24 08/26/24 epinephrine 0.3 mg/0.3 mL 0.3 mg IM Q5M PRN anaphylaxis 04/15/24 08/26/24 injection, auto-injector mometasone 200 mcg/actuation HFA 2 puff inhalation BID 04/15/24 08/26/24 aerosol inhaler (Asmanex HFA) calcium citrate 250 mg PO BID 08/18/24 08/26/24 insulin aspart 1 sliding scale dose subcut TIDAC 08/18/24 08/26/24 (niacinamide)(U-100) 100 unit/mL(3 mL) subcutaneous pen (Fiasp FlexTouch U-100 Insulin) insulin degludec 100 unit/mL (3 8 unit subcut DAILY 08/18/24 08/26/24 mL) subcutaneous pen (Tresiba FlexTouch U-100 insulin) levothyroxine 112 mcg tablet 224 mcg PO DAILY@0600 08/18/24 08/26/24 (Synthroid) nystatin 100,000 unit/gram topical 1 appl topical BID 08/18/24 08/26/24 powder (Nystop) omeprazole 40 mg capsule,delayed 40 mg PO BID gastritis 08/18/24 08/26/24 release pyridostigmine bromide 60 mg tablet 60 mg PO QID 08/18/24 08/26/24 tiotropium bromide 1.25 2 puff inhalation DAILY 08/18/24 08/26/24 mcg/actuation mist for inhalation (Spiriva Respimat) Previous Rx's ?Medication ?Instructions ?Recorded blood pressure monitor #1 ea 01/21/23 DIABETIC SHOES #1 ea 11/29/23 pen needle, diabetic 32 gauge x #100 ea 02/12/24 (BD Laura 2nd Gen Pen Needle) ferrous sulfate 325 mg (65 mg 325 mg PO DAILY #90 tabs 02/20/24 iron) tablet (FeroSul) lancets 28 gauge (FreeStyle #150 ea 03/19/24 Lancets) cholecalciferol (vitamin D3) 50 100 mcg (2 x 50 mcg (2,000 unit)) 04/25/24 mcg (2,000 unit) capsule PO BEDTIME #90 caps blood sugar diagnostic (FreeStyle #150 ea 06/04/24 Lite Strips) atorvastatin 40 mg tablet 40 mg PO BEDTIME #90 tabs 07/03/24 montelukast 10 mg tablet 10 mg PO BEDTIME 90 days #90 tabs 07/05/24 losartan 25 mg tablet 25 mg PO BEDTIME 90 days #90 tabs 07/26/24 loratadine 10 mg tablet 10 mg PO DAILY #90 tabs 08/17/24 daptomycin 350 mg intravenous 430 mg IV Q24H #1 ea 08/23/24 solution apixaban 5 mg (74 tabs) tablets in 5 mg PO BID #74 ea 09/03/24 a dose pack (Eliquis DVT-PE Treat 30D Start) hydromorphone 2 mg tablet 2 mg PO TID PRN pain 7 days #21 09/03/24 tabs levalbuterol tartrate 45 2 puff inhalation Q6H PRN 09/03/24 mcg/actuation aerosol inhaler shortness of breath or wheezing 30 (Xopenex HFA) days #15 grams ondansetron 8 mg disintegrating 8 mg PO Q8H PRN nausea and 09/03/24 tablet vomiting 10 days #30 tabs tizanidine 2 mg tablet 4 mg (2 x 2 mg) PO BEDTIME PRN for 09/03/24 muscle spasm 30 days #60 tabs Allergies Allergy/AdvReac Type Severity Reaction Status Date / Time cephalexin Allergy Severe Difficulty Verified 09/03/24 14:53 Breathing latex [LATEX] Allergy Severe Difficulty Verified 09/03/24 14:53 Breathing levofloxacin [From LEVAQUIN] Allergy Severe SHORTNESS Verified 09/03/24 14:53 OF BREATH, RASH, rash morphine [MORPHINE] Allergy Severe RASH, Verified 09/03/24 14:53 asthma exacerbation, rash baclofen [BACLOFEN] Allergy Intermediate Rash Verified 09/03/24 14:53 celecoxib [Celebrex] Allergy Intermediate itching, Verified 09/03/24 14:53 rash, flushing prednisone [PREDNISONE] Allergy Intermediate RASH, Verified 09/03/24 14:53 asthma exacerbation, rash codeine Allergy Unknown Rash Verified 09/03/24 14:53 gluten [GLUTEN] Allergy Unknown UNKNOWN Verified 09/03/24 14:53 oxycodone Allergy Unknown rash Verified 09/03/24 14:53 ranitidine Allergy Unknown unknown Verified 09/03/24 14:53 roflumilast [Daliresp] Allergy Unknown rash Verified 09/03/24 14:53 tramadol [TRAMADOL] Allergy Unknown RASH,SHORTNESS Verified 09/03/24 14:53 OF BREATH AND HEADACHE, asthma exacerbation, rash celery Allergy Rash Verified 09/03/24 14:53 cyclobenzaprine Allergy Rash and Verified 09/03/24 14:53 [From Flexeril] asthma exacerbation environmental allergies Allergy Cleaning Verified 09/03/24 14:53 products cause asthma attack pineapple Allergy Rash Verified 09/03/24 14:53 strawberry Allergy Rash Verified 09/03/24 14:53 sulfamethoxazole AdvReac Intermediate vertigo Verified 09/03/24 14:53 [From Bactrim] trimethoprim [From Bactrim] AdvReac Intermediate vertigo Verified 09/03/24 14:53 diazepam [From Valium] AdvReac Cough Verified 09/03/24 14:53 Review of Systems Review of Systems: Yes all other systems are reviewed and are negative [facility] Past Medical History Medical History (Updated 09/03/24 @ 21:19 by Can Pichardo MD) Portal hypertension HTN (hypertension) Anemia Chronic restrictive lung disease Brugada syndrome Shortness of breath Encounter for care related to Port-a-Cath Tinea pedis Recurrent cellulitis of lower extremity CHARLES (obstructive sleep apnea) Hypogammaglobulinemia Cellulitis of both lower extremities Right hip pain Lumbar degenerative disc disease Benign essential hypertension Obesity (BMI 30-39.9) Mitochondrial myopathy Asthma Diabetes mellitus History of revision of total replacement of right hip joint (~12/2019) Acquired hypothyroidism Pain of both hip joints Pure hypercholesterolemia Hx of cataract Osteopenia Hypothyroidism Osteoarthritis of hip Gastritis Surgical History (Updated 08/31/24 @ 00:03 by Leah Haskins) Hx of hand surgery History of removal of Port-a-Cath History of total right hip arthroplasty (~06/03/19) History of eye surgery (~09/2017) History of hip surgery Hx of foot surgery (~01/02/19) History of removal of cyst Hx of left knee surgery History of elbow surgery (~07/2016) Hx of thumb surgery Hx of appendectomy Hx of hysterectomy (~07/2011) Hx of bilateral breast reduction surgery Family History Family History Father Leukemia Mother Hypertension Diabetes Sister Alive and well Brother Pancreatic cancer Paternal Grandmother Stomach cancer Paternal Grandmother Throat cancer Social History Social History Household Members: Family Housing: Apartment Do you presently have visiting nurse or other home services: No Alcohol intake: former Comment: refused bed alarm Patient Tobacco Use Status: Never used Tobacco e-Cigarette/Vaping Use: Never Used Second Hand Smoke Exposure: No Advance Directives: Yes Advance Directives on File: Yes Advance Directives Date on File: 10/02/23 Do you have a plan to hurt others: No Plan service: No Current occupational status: disabled Cognitive needs: No Hearing needs: No Vision needs: No Physical Exam Vital Signs: Vital Signs: Last Vital Signs Temp 98.5 F 09/03/24 14:49 Pulse 92 09/03/24 14:49 Resp 20 09/03/24 14:49 BP 188/88 H 09/03/24 14:49 Pulse Ox 100 09/03/24 14:49 O2 Del Method Room Air 09/03/24 14:49 BMI result Body Mass Index 38.0 Vital signs revealed an elevated blood pressure of 188/88 with an O2 saturation of 100% on room air. Exam: General: Awake, alert in no distress Head: Normocephalic, atraumatic EENT: PERRL, Lids normal, sclera normal, conjunctiva normal, nose normal , ears normal, throat without erythema or exudates Neck: Supple, no adenopathy Lung: breath sounds symmetric, no wheezing, rales or rhonchi Chest: symmetric movement, nontender Heart: regular rate and rhythm, normal S1, S2 no murmurs or rubs Abdomen: soft, non-tender, nondistended, normal bowel sounds Back: no vertebral tenderness, no CVAT Extremities: The patient's right arm is significantly erythematous and swollen compared to the left. The swelling involves the hand forearm and biceps area. The patient does have a PICC line in the medial aspect of the right bicep. Neuro: Awake, alert, oriented, normal speech, cranial nerves intact, moves all extremities symmetrically Psych: Pleasant, cooperative Course Course Course Narrative: This is a Rapid Medical Examination (RME) performed by Bernie Benito PA-C in triage. Full HPI, ROS, assessment and treatment plan per primary provider in the Main ED. 53 yo female with recent [place] [facility] [place]os[place] on IV abx via right PICC line until 09/20 presents to the ER for evaluation of acute onset of right arm pain, swelling and redness that started at 3am today. redness and swelling mostly in the lower arm but she reports pain from the right shoulder distally. low grade temp at ID appointment yesterday. 2+ radial pulse on exam. right forearm swelling noted. Plan: US UE, labs Medical Decision Making Medical Decision Making [facility] Narrative: 53 years old woman with past medical history significant for type 2 diabetes mellitus, asthma, hyperlipidemia, liver cirrhosis secondary to BHARDWAJ with portal hypertension/gastropathy/esophageal varices, essential hypertension, Brugada syndrome, hypothyroidism [place] [facility] 08/23/2024 for left index finger tenosynovitis/abscess treated with I and D of the flexor tenosynovitis on 08/19/2024, discharged home on daptomycin 430 mg IV through right PICC line in the medial biceps area who presents emergency department for evaluation of swelling, heaviness and tightness to the right arm which began at 03:30 hours this morning. Differential diagnosis: ?Includes but is not limited to cellulitis, diverticulitis, anemia, electrolyte abnormalities Course: 21:04 My interpretation patient's laboratory evaluation is as follows: WBC was normal 8000. Chronic normocytic anemia with an H&H of 10.9 and 33.0-unchanged from previous. Chronic thrombocytopenia platelet count [id number]. PT/INR and PTT were normal. BUN elevated 21 with a normal creatinine of 1.40. Glucose elevated 234. AST, ALT and alk-phos were elevated above baseline at 65, 83 and 120-may be secondary to daptomycin. The patient's duplex ultrasound he was consistent with a DVT of the right upper extremity. The PICC line does flush easily. I did discuss the patient's presentation with our vascular surgeon, Dr. Vegas. He advised against discontinuing the PICC line and states that the PICC line can probably you used for at least 3 more weeks. He did recommend that the patient be started on anticoagulants. I did discuss the risks and benefits of anticoagulation with the patient. The patient does have Bhardwaj with portal hypertension and varices. She was at increased risk of bleeding however given her upper extremity DVT she was at high risk for pulmonary embolism. After this discussion, patient did agree on treatment with Eliquis. Patient was given Eliquis 10 mg orally and started on Eliquis 10 mg b.i.d. for 7 days then 5 mg b.i.d.. The patient will need to be on this medication for 3-6 months. I did give the patient Dilaudid 2 mg orally-she takes this at home for pain. She was given her IV dose of daptomycin 430 mg IV. The patient will need to follow-up with her PCP for further management of the DVT and Dr. Napier for continued manage of her infection follow-up of her elevated DVTs. Admission/Observation Consideration of admission/observation: Escalation of care including admission/observation considered (Yes) Lab Data MDM Lab Attestation statement: I reviewed the patient's lab results. 09/03/24 15:08 09/03/24 15:08 Labs: Lab Results 09/03/24 Range/Units 15:08 WBC 8.0 (4.8-10.8) X10*3/uL RBC 3.98 L (4.20-5.50) X10*6/uL Hgb 10.9 L (12.0-16.0) g/dl Hct 33.0 L (37.0-47.0) % MCV 82.9 (80.0-98.0) fL MCH 27.4 (27.0-33.0) pg MCHC 33.0 (31.0-35.0) g/dl RDW 13.6 (11.0-16.0) % Plt Count 121 L (160-400) X10*3/uL MPV 10.6 (9.4-12.3) fL Immature Gran % (Auto) 0.2 (0.0-0.4) % Neut % (Auto) 77.3 H (45-73) % Lymph % (Auto) 16.1 L (20-40) % Hopkins % (Auto) 6.4 (2-11) % Eos % (Auto) 0.0 (0-4) % Baso % (Auto) 0.0 (0-2) % Lymph # (Auto) 1.3 (1.2-4.9) X10*3/uL Hopkins # (Auto) 0.5 (0.1-1.2) X10*3/uL Eos # (Auto) 0.0 (0.0-0.4) X10*3/uL Baso # (Auto) 0.0 (0.0-0.2) X10*3/uL Abs Immat Gran (auto) 0.02 (0.00-0.03) X10*3/uL Absolute Neuts (auto) 6.2 (2.0-8.3) x10*3/uL Absolute Nucleated RBC 0.000 (0.0-0.012) X10*3/uL Nucleated RBC % (auto) 0.0 (0.0-0.2) /100WBC PT 11.8 (10.9-12.4) SEC INR 1.0 (0.9-1.1) APTT 28.3 (26.0-36.8) SEC Sodium 139 (135-145) mmol/L Potassium 4.0 (3.3-5.1) mmol/L Chloride 104 (96-108) mmol/L Carbon Dioxide 26 (22-29) mmol/L Anion Gap 13 (12-20) BUN 21 H (9-16) mg/dL Creatinine 1.40 (0.5-1.4) mg/dL Estim Creat Clear Calc 52.9 Estimated GFR 39 Random Glucose 234 H (60-115) mg/dL Calcium 9.7 (8.4-10.2) mg/dL Magnesium 2.0 (1.6-2.6) mg/dL Total Bilirubin 0.7 (0.0-1.0) mg/dL Direct Bilirubin 0.2 (0.0-0.5) mg/dL AST 65 H (5-31) U/L ALT 83 H (0-31) U/L Alkaline Phosphatase 120 H (39-117) U/L Total Protein 6.8 (6.5-8.0) g/dL Albumin 4.0 (3.5-5.0) g/dL Radiology Impression Discussion of test interpretation with radiology: I have reviewed the radiologist's reading. Radiologist Impression: US venous duplex UE RT IMPRESSION: Catheter related deep venous thrombosis involving the right axillary vein and basilic vein. Electronically signed by: Joaquin Hampton MD 09/03/2024 04:02 PM [facility] Dictated By: Joaquin Hampton MD External Record Review External record reviewed: Inpatient record Prescription Management I considered prescription management with: Other (Anticoagulants-Eliquis) Chronic Conditions Patient?s care impacted by: Hypertension and Other (Myasthenia gravis) Discharge Plan Discharge Clinical Impression: Deep vein thrombosis (DVT) of right upper extremity Patient Disposition: Home, Self-Care Additional Instructions: The ultrasound of your right upper extremity did reveal a blood clot in the deep veins. This blood clot is caused by the midline/PICC line that you have in your arm. The treatment for blood clots is oral blood thinners and I am starting you on Eliquis 5 mg pills, 2 pills every 12 hours for 1 week then 1 pill every 12 hours for 3-6 months. It is important that you do not run out of this medication in you will need to get refills from your primary care provider. Your primary care provider will need to determine how long the need to be on this medication. Try to keep your arm elevated and this may help reduce the swelling over time I did discuss whether or not the PICC line should stay in place or be removed with our vascular surgeon, Dr. Vegas. He advised that the PICC line can stay in place and can be used for IV antibiotics as long as the line is easily flushable. You were given your dose of daptomycin 430 mg IV here in the emergency department. Your liver tests were elevated. This could be related to your BHARDWAJ or it may be related to your daptomycin. Please call Dr. Ibarra to discuss your elevated liver tests and whether or not you can stay on this medication or you need to come off this medication. Continue taking all of your other medications as prescribed by your providers. Follow-up with your doctor in 2 days. Please return to the emergency department if your symptoms get worse or if you develop any symptoms that are concerning to you. Prescriptions: New Eliquis DVT-PE Treat 30D Start 5 mg (74 tabs) tablets,dose pack 5 mg PO BID Qty: 74 0RF No Action (DME) blood pressure monitor Kit See Rx Instructions .Route Qty: 1 0RF Rx Instructions: As directed (DME) pen needle, diabetic [BD Laura 2nd Gen Pen Needle] 32 gauge x 5/32 needle See Rx Instructions .ROUTE .COMPLEX Qty: 100 5RF Dose Instruction: USE TO INJECT FOUR TIMES DAILY DIRECTED Rx Instructions: USE TO INJECT FOUR TIMES DAILY DIRECTED ferrous sulfate [FeroSul] 325 mg (65 mg iron) tablet 325 mg PO DAILY Qty: 90 1RF cholecalciferol (vitamin D3) 50 mcg (2,000 unit) capsule 100 mcg PO BEDTIME Qty: 90 3RF (DME) FreeStyle Lite Strips Strip See Rx Instructions .Route Qty: 150 11RF Rx Instructions: As directed- checks 4-5 X/day atorvastatin 40 mg tablet 40 mg PO BEDTIME Qty: 90 1RF montelukast 10 mg tablet 10 mg PO BEDTIME 90 Days Qty: 90 3RF losartan 25 mg tablet 25 mg PO BEDTIME 90 Days Qty: 90 3RF loratadine 10 mg tablet 10 mg PO DAILY Qty: 90 0RF levalbuterol tartrate [Xopenex HFA] 45 mcg/actuation HFA aerosol inhaler 2 puff inhalation Q6H PRN (Reason: shortness of breath or wheezing) 30 Days Qty: 15 11RF ondansetron 8 mg tablet,disintegrating 8 mg PO Q8H PRN (Reason: nausea and vomiting) 10 Days Qty: 30 1RF hydromorphone 2 mg tablet 2 mg PO TID PRN (Reason: pain) 7 Days Qty: 21 0RF tizanidine 2 mg tablet 4 mg PO BEDTIME PRN (Reason: for muscle spasm) 30 Days Qty: 60 0RF pyridostigmine bromide 60 mg tablet 60 mg PO QID levothyroxine [Synthroid] 112 mcg tablet 224 mcg PO DAILY@0600 Spiriva Respimat 1.25 mcg/actuation mist 2 puff INHALATION DAILY omeprazole 40 mg capsule,delayed release(DR/EC) 40 mg PO BID nystatin [Nystop] 100,000 unit/gram powder 1 appl topical BID calcium citrate 250 mg calcium tablet 250 mg PO BID insulin degludec [Tresiba FlexTouch U-100] 100 unit/mL (3 mL) insulin pen 8 unit subcut DAILY Fiasp FlexTouch U-100 Insulin 100 unit/mL (3 mL) insulin pen 1 sliding scale dose subcut TIDAC daptomycin 350 mg Recon Soln 430 mg IV Q24H Qty: 1 0RF (DME) DIABETIC SHOES See Rx Instructions .Route .MEDSUPPLY Qty: 1 0RF Rx Instructions: DIABETIC SHOES - 1 PAIR - use as directed -- Dx: E11.9 -- diabetes mellitus (DME) lancets [FreeStyle Lancets] 28 gauge misc See Rx Instructions .MEDSUPPLY Qty: 150 4RF Rx Instructions: 5 times a day Fasenra 30 mg/mL syringe 30 mg subcut Q8W ipratropium bromide 42 mcg (0.06 %) spray,non-aerosol 2 spray intranasal DAILY (DME) nebulizers Misc See Rx Instructions .Route Rx Instructions: As directed carvedilol 6.25 mg tablet 6.25 mg PO DAILY Asmanex HFA 200 mcg/actuation HFA aerosol inhaler 2 puff inhalation BID epinephrine 0.3 mg/0.3 mL auto-injector 0.3 mg IM Q5M PRN (Reason: anaphylaxis) Print Language: Angolan
[2024-09-03 15:13] LABS: MANUAL DIFF FLAG NO
[2024-09-03 15:17] LABS: Hemoglobin 10.9 g/dl (12.0-16.0); Imm Gran Abs Auto 0.02 X10*3/uL (0.00-0.03); Imm Gran Pct Auto 0.2 % (0.0-0.4); Lymphocytes Absolute Auto 1.3 X10*3/uL (1.2-4.9); Lymphocytes Percent Auto 16.1 % (20-40); Mean Corpuscular Hemoglobin 27.4 pg (27.0-33.0); Mean Corpuscular Volume 82.9 fL (80.0-98.0); Mean Platelet Volume 10.6 fL (9.4-12.3); Monocytes Absolute Auto 0.5 X10*3/uL (0.1-1.2); Monocytes Percent Auto 6.4 % (2-11); Neutrophils Absolute Auto 6.2 x10*3/uL (2.0-8.3); Neutrophils Percent Auto 77.3 % (45-73); Platelet Count 121 X10*3/uL (160-400); Red Blood Count 3.98 X10*6/uL (4.20-5.50); Red Cell Distribution Width 13.6 % (11.0-16.0)
[2024-09-03 15:24] LABS: Prothrombin Time 11.8 SEC (10.9-12.4)
[2024-09-03 15:26] LABS: Partial Thromboplastin Time 28.3 SEC (26.0-36.8)
[2024-09-03 15:58] LABS: Alanine Aminotransferase 83 U/L (0-31); Anion Gap 13 (12-20); Aspartate Amino Transferase 65 U/L (5-31); Bilirubin Direct 0.2 mg/dL (0.0-0.5); Bilirubin Total 0.7 mg/dL (0.0-1.0); Blood Urea Nitrogen 21 mg/dL (9-16); Calcium 9.7 mg/dL (8.4-10.2); Carbon Dioxide 26 mmol/L (22-29); Chloride 104 mmol/L (96-108); Creatinine Clr Calc Pharmacy 52.9; Estimated Glomerular Filt Rate 39; Glucose Random 234 mg/dL (60-115); Sodium 139 mmol/L (135-145); Total Protein 6.8 g/dL (6.5-8.0)
[2024-09-03 16:57] LABS: Alkaline Phosphatase 120 U/L (39-117)
[2024-09-03] MEDS: HYDROmorphone HCl 2 MG TABLET PO (21:06)
--- NOTE | 2024-09-03 21:34 | PC.NURSE ---
Awaiting meds from pharmacy, after IV abx complete pt can be discharged per MD.
[2024-09-03 22:00] VITALS: BP 151/85; PULSE 79; RESP 16; TEMP 36.8; O2SAT 98
[2024-09-03] MEDS: SODIUM CHLORIDE 0.9% IV (22:19)
[2024-09-03] MEDS: DAPTOMYCIN IV (22:19)
[2024-09-03] MEDS: Apixaban 5 MG TABLET 10 MG PO (22:20)
[2024-09-03 23:35] VITALS: BP 151/85; PULSE 79; RESP 16; TEMP 36.8; O2SAT 98
--- NOTE | 2024-09-05 13:47 | MHC.CM.ED ---
Received request for assistance w/Spike script clarification: Directions from pt's ED D/C Summary given to Joann arora VM ([phone]) Requesting pharmacy contact pt and [facility] if more information is needed.
== END 2024-09-03 23:35 | disposition home or self-care (01) ==
PROVIDERS: Physician Assistant; Emergency Provider Emergency Medicine Emergency Medical Services; PCP Internal Medicine
DX: I82.621 Acute embolism and thrombosis of deep veins of right upper extremity (principal)
CPT/HCPCS: 36415; 80048; 80076; 83735; 85025; 85610; 85730; 93971; 96374; 99284; J0878

== ENCOUNTER 2024-09-05 18:13 | Emergency (ER) | payer OTHER, SELFPAY ==
[2024-09-05 18:28] VITALS: BP 179/85; PULSE 109; RESP 20; TEMP 37.3; O2SAT 96; BMI 37.4
--- NOTE | 2024-09-05 18:37 | ED.GENADULT ---
HPI - General Adult General Chief complaint: General Medical Stated complaint: fr urgent care/abnormal labs Time Seen by Provider: 09/05/24 21:46 Source: patient Mode of arrival: ambulatory Limitations: no limitations History of Present Illness ED Provider: iain JC narrative: patient with dysuria and frequency was seen at urgent care center UA was negative syndrome patient is here as still having the pain patient's daptomycin for left hand infection also has DVT and right arm unable to get her Eliquis patient is seen here 09/03 Related Data Home Medications ?Medication ?Instructions ?Recorded ?Confirmed ipratropium bromide 42 mcg (0.06 2 spray intranasal DAILY 03/11/21 08/26/24 %) nasal spray benralizumab 30 mg/mL subcutaneous 30 mg subcut Q8W 10/06/22 08/26/24 syringe (Fasenra) nebulizers 03/09/23 08/26/24 carvedilol 6.25 mg tablet 6.25 mg PO DAILY for blood pressure 04/15/24 08/26/24 epinephrine 0.3 mg/0.3 mL 0.3 mg IM Q5M PRN anaphylaxis 04/15/24 08/26/24 injection, auto-injector mometasone 200 mcg/actuation HFA 2 puff inhalation BID 04/15/24 08/26/24 aerosol inhaler (Asmanex HFA) calcium citrate 250 mg PO BID 08/18/24 08/26/24 insulin aspart 1 sliding scale dose subcut TIDAC 08/18/24 08/26/24 (niacinamide)(U-100) 100 unit/mL(3 mL) subcutaneous pen (Fiasp FlexTouch U-100 Insulin) insulin degludec 100 unit/mL (3 8 unit subcut DAILY 08/18/24 08/26/24 mL) subcutaneous pen (Tresiba FlexTouch U-100 insulin) levothyroxine 112 mcg tablet 224 mcg PO DAILY@0600 08/18/24 08/26/24 (Synthroid) nystatin 100,000 unit/gram topical 1 appl topical BID 08/18/24 08/26/24 powder (Nystop) omeprazole 40 mg capsule,delayed 40 mg PO BID gastritis 08/18/24 08/26/24 release pyridostigmine bromide 60 mg tablet 60 mg PO QID 08/18/24 08/26/24 tiotropium bromide 1.25 2 puff inhalation DAILY 08/18/24 08/26/24 mcg/actuation mist for inhalation (Spiriva Respimat) Previous Rx's ?Medication ?Instructions ?Recorded blood pressure monitor #1 ea 01/21/23 DIABETIC SHOES #1 ea 11/29/23 pen needle, diabetic 32 gauge x #100 ea 02/12/24 5/32 (BD Laura 2nd Gen Pen Needle) ferrous sulfate 325 mg (65 mg 325 mg PO DAILY #90 tabs 02/20/24 iron) tablet (FeroSul) lancets 28 gauge (FreeStyle #150 ea 03/19/24 Lancets) cholecalciferol (vitamin D3) 50 100 mcg (2 x 50 mcg (2,000 unit)) 04/25/24 mcg (2,000 unit) capsule PO BEDTIME #90 caps blood sugar diagnostic (FreeStyle #150 ea 06/04/24 Lite Strips) atorvastatin 40 mg tablet 40 mg PO BEDTIME #90 tabs 07/03/24 montelukast 10 mg tablet 10 mg PO BEDTIME 90 days #90 tabs 07/05/24 losartan 25 mg tablet 25 mg PO BEDTIME 90 days #90 tabs 07/26/24 loratadine 10 mg tablet 10 mg PO DAILY #90 tabs 08/17/24 daptomycin 350 mg intravenous 430 mg IV Q24H #1 ea 08/23/24 solution apixaban 5 mg (74 tabs) tablets in 5 mg PO BID #74 ea 09/03/24 a dose pack (Eliquis DVT-PE Treat 30D Start) levalbuterol tartrate 45 2 puff inhalation Q6H PRN 09/03/24 mcg/actuation aerosol inhaler shortness of breath or wheezing 30 (Xopenex HFA) days #15 grams ondansetron 8 mg disintegrating 8 mg PO Q8H PRN nausea and 09/03/24 tablet vomiting 10 days #30 tabs tizanidine 2 mg tablet 4 mg (2 x 2 mg) PO BEDTIME PRN for 09/03/24 muscle spasm 30 days #60 tabs apixaban 5 mg tablet (Eliquis) 5 mg PO BID 30 days #60 tabs 09/05/24 hydromorphone 2 mg tablet 2 mg PO TID PRN pain 7 days #21 09/05/24 tabs nitrofurantoin 100 mg PO Q12H 7 days #14 caps 09/05/24 monohydrate/macrocrystals 100 mg capsule (Macrobid) phenazopyridine 200 mg tablet 200 mg PO TID 2 days #6 tabs 09/05/24 (Pyridium) Allergies Allergy/AdvReac Type Severity Reaction Status Date / Time cephalexin Allergy Severe Difficulty Verified 09/05/24 18:34 Breathing latex [LATEX] Allergy Severe Difficulty Verified 09/05/24 18:34 Breathing levofloxacin [From LEVAQUIN] Allergy Severe SHORTNESS Verified 09/05/24 18:34 OF BREATH, RASH, rash morphine [MORPHINE] Allergy Severe RASH, Verified 09/05/24 18:34 asthma exacerbation, rash baclofen [BACLOFEN] Allergy Intermediate Rash Verified 09/05/24 18:34 celecoxib [Celebrex] Allergy Intermediate itching, Verified 09/05/24 18:34 rash, flushing prednisone [PREDNISONE] Allergy Intermediate RASH, Verified 09/05/24 18:34 asthma exacerbation, rash codeine Allergy Unknown Rash Verified 09/05/24 18:34 gluten [GLUTEN] Allergy Unknown UNKNOWN Verified 09/05/24 18:34 oxycodone Allergy Unknown rash Verified 09/05/24 18:34 ranitidine Allergy Unknown unknown Verified 09/05/24 18:34 roflumilast [Daliresp] Allergy Unknown rash Verified 09/05/24 18:34 tramadol [TRAMADOL] Allergy Unknown RASH,SHORTNESS Verified 09/05/24 18:34 OF BREATH AND HEADACHE, asthma exacerbation, rash celery Allergy Rash Verified 09/05/24 18:34 cyclobenzaprine Allergy Rash and Verified 09/05/24 18:34 [From Flexeril] asthma exacerbation environmental allergies Allergy Cleaning Verified 09/05/24 18:34 products cause asthma attack pineapple Allergy Rash Verified 09/05/24 18:34 strawberry Allergy Rash Verified 09/05/24 18:34 sulfamethoxazole AdvReac Intermediate vertigo Verified 09/05/24 18:34 [From Bactrim] trimethoprim [From Bactrim] AdvReac Intermediate vertigo Verified 09/05/24 18:34 diazepam [From Valium] AdvReac Cough Verified 09/05/24 18:34 Review of Systems Review of Systems: Yes all other systems are reviewed and are negative PMFSH Past Medical History Medical History Portal hypertension HTN (hypertension) Anemia Chronic restrictive lung disease Brugada syndrome Shortness of breath Encounter for care related to Port-a-Cath Tinea pedis Recurrent cellulitis of lower extremity CHARLES (obstructive sleep apnea) Hypogammaglobulinemia Cellulitis of both lower extremities Right hip pain Lumbar degenerative disc disease Benign essential hypertension Obesity (BMI 30-39.9) Mitochondrial myopathy Asthma Diabetes mellitus History of revision of total replacement of right hip joint (~12/2019) Acquired hypothyroidism Pain of both hip joints Pure hypercholesterolemia Hx of cataract Osteopenia Hypothyroidism Osteoarthritis of hip Gastritis Surgical History Hx of hand surgery History of removal of Port-a-Cath History of total right hip arthroplasty (~06/03/19) History of eye surgery (~09/2017) History of hip surgery Hx of foot surgery (~01/02/19) History of removal of cyst Hx of left knee surgery History of elbow surgery (~07/2016) Hx of thumb surgery Hx of appendectomy Hx of hysterectomy (~07/2011) Hx of bilateral breast reduction surgery Family History Family History Father Leukemia Mother Hypertension Diabetes Sister Alive and well Brother Pancreatic cancer Paternal Grandmother Stomach cancer Paternal Grandmother Throat cancer Social History Social History Household Members: Family Housing: Apartment Do you presently have visiting nurse or other home services: No Alcohol intake: never Comment: refused bed alarm Patient Tobacco Use Status: Never used Tobacco Smoked in Last 30 Days: No e-Cigarette/Vaping Use: Never Used Second Hand Smoke Exposure: No Use of substances other than those prescribed or required for medical reasons: No Advance Directives: Yes Advance Directives on File: Yes Advance Directives Date on File: 10/02/23 Do you have a plan to hurt others: No Plan service: No Current occupational status: disabled Cognitive needs: No Hearing needs: No Vision needs: No Physical Exam ED Vital Signs: Vital Signs - 24 hr 09/05/24 18:28 09/05/24 23:40 09/05/24 23:54 Temperature 99.2 F 98.0 F 98.0 F Pulse Rate 109 H 111 H 111 H Respiratory Rate 20 18 18 Blood Pressure 179/85 H 156/85 H 156/85 H Pulse Oximetry 96 97 97 Oxygen Delivery Method Room Air Room Air Room Air BMI result Body Mass Index 37.4 Appearance: Alert. Oriented X3. No acute distress. Eyes: no pallor or icterus ENT: Pharynx normal. Oral Mucosa moist Neck: Normal inspection. Neck supple. CVS: Normal heart rate and rhythm. Pulses normal. Respiratory: No respiratory distress. Equal air entry bilateral, no wheezing/rales/rhonchi Abdomen: Soft and mild distal comfort in suprapubic area Bowel sounds are present, no mass palpable, no CVA tenderness Skin: Skin warm and dry. Normal skin color. Normal skin turgor. Extremities: No lower extremity edema. No calf tenderness right arm with midline Neuro: Oriented X 3. No motor deficit. Course Course Course Narrative: RME: 53-year-old female presents to ED for right lower quadrant abdominal pain. Patient initially was treated as UTI. You were in at urgent Care showed no UTI. Patient sent to the ED for evaluation labs ordered. Medications Administered Discontinued Medications Generic Name Dose Route Start Last Admin Trade Name Freq PRN Reason Stop Dose Admin Apixaban 10 mg 09/05/24 22:26 09/05/24 22:45 Apixaban 5 Mg Tablet PO 09/05/24 22:27 10 mg ONCE ONE Administration Dicyclomine HCl 20 mg 09/05/24 23:53 09/05/24 23:57 Dicyclomine Hcl 10 Mg Capsule PO 09/05/24 23:54 20 mg ONCE ONE Administration Hydromorphone HCl 2 mg 09/05/24 23:00 09/05/24 23:25 Hydromorphone Hcl 2 Mg Tablet PO 09/05/24 23:01 2 mg ONCE ONE Administration Nitrofurantoin Macrocrystals 100 mg 09/05/24 22:25 09/05/24 22:45 Nitrofurantoin Monohyd/M-Cryst 100 Mg Capsule PO 09/05/24 22:26 100 mg ONCE ONE Administration Phenazopyridine HCl 200 mg 09/05/24 23:26 09/05/24 23:35 Phenazopyridine Hcl 200 Mg Tablet PO 09/05/24 23:27 200 mg ONCE ONE Administration Medical Decision Making Medical Decision Making MDM Narrative: patient with UTI will prescribe Macrobid labs are stable Lab Data [facility] Lab Attestation statement: I reviewed the patient's lab results. 09/05/24 19:01 09/05/24 19:01 Labs: Lab Results 09/05/24 Range/Units 19:01 WBC 7.3 (4.8-10.8) X10*3/uL RBC 3.89 L (4.20-5.50) X10*6/uL Hgb 10.8 L (12.0-16.0) g/dl Hct 32.3 L (37.0-47.0) % MCV 83.0 (80.0-98.0) fL MCH 27.8 (27.0-33.0) pg MCHC 33.4 (31.0-35.0) g/dl RDW 13.5 (11.0-16.0) % Plt Count 118 L (160-400) X10*3/uL MPV 10.9 (9.4-12.3) fL Immature Gran % (Auto) 0.7 H (0.0-0.4) % Neut % (Auto) 74.3 H (45-73) % Lymph % (Auto) 17.6 L (20-40) % Greene % (Auto) 7.4 (2-11) % Eos % (Auto) 0.0 (0-4) % Baso % (Auto) 0.0 (0-2) % Lymph # (Auto) 1.3 (1.2-4.9) X10*3/uL Greene # (Auto) 0.5 (0.1-1.2) X10*3/uL Eos # (Auto) 0.0 (0.0-0.4) X10*3/uL Baso # (Auto) 0.0 (0.0-0.2) X10*3/uL Abs Immat Gran (auto) 0.05 H (0.00-0.03) X10*3/uL Absolute Neuts (auto) 5.4 (2.0-8.3) x10*3/uL Absolute Nucleated RBC 0.000 (0.0-0.012) X10*3/uL Nucleated RBC % (auto) 0.0 (0.0-0.2) /100WBC Sodium 138 (135-145) mmol/L Potassium 3.6 (3.3-5.1) mmol/L Chloride 104 (96-108) mmol/L Carbon Dioxide 26 (22-29) mmol/L Anion Gap 12 (12-20) BUN 16 (9-16) mg/dL Creatinine 1.25 (0.5-1.4) mg/dL Estim Creat Clear Calc 58.7 Estimated GFR 45 Random Glucose 210 H (60-115) mg/dL Calcium 9.5 (8.4-10.2) mg/dL Total Bilirubin 1.0 (0.0-1.0) mg/dL AST 72 H (5-31) U/L ALT 89 H (0-31) U/L Alkaline Phosphatase 126 H (39-117) U/L Total Protein 7.0 (6.5-8.0) g/dL Albumin 4.1 (3.5-5.0) g/dL Lipase 20 (8-78) U/L Urine Color Yellow Urine Appearance Clear Urine pH 6.5 (5.0-9.0) Ur Specific [place] <= 1.005 (1.005-1.025) Urine Protein Negative (Neg-Trace) mg/dL Urine Glucose (UA) 100 H (Negative) mg/dL Urine Ketones Negative (Negative) mg/dL Urine Blood Small (1+) H (Negative) Urine Nitrite Negative (Negative) Ur Leukocyte Esterase Small (1+) H (Negative) Urine RBC 3-5 H (0-2) /HPF Urine WBC 21-50 H (0-5) /HPF Ur Squamous Epith Cells 0-2 (0-2) /HPF Urine Bacteria 4+ (None Seen) Hyaline Casts 0-2 (0-2) /LPF Discharge Plan Discharge Clinical Impression: UTI (urinary tract infection) Patient Disposition: Home, Self-Care Instructions: Urinary Tract Infection in Women (ED) Additional Instructions: drink plenty of fluids take antibiotic as prescribed take Eliquis as prescribed follow with your PCP Prescriptions: New nitrofurantoin monohyd/m-cryst [Macrobid] 100 mg capsule 100 mg PO Q12H 7 Days Qty: 14 0RF Rx Instructions: must administer with a meal/food phenazopyridine [Pyridium] 200 mg tablet 200 mg PO TID 2 Days Qty: 6 0RF No Action (DME) blood pressure monitor Kit See Rx Instructions .Route Qty: 1 0RF Rx Instructions: As directed (DME) pen needle, diabetic [BD Laura 2nd Gen Pen Needle] 32 gauge x 5/32 needle See Rx Instructions .ROUTE .COMPLEX Qty: 100 5RF Dose Instruction: USE TO INJECT FOUR TIMES DAILY DIRECTED Rx Instructions: USE TO INJECT FOUR TIMES DAILY DIRECTED ferrous sulfate [FeroSul] 325 mg (65 mg iron) tablet 325 mg PO DAILY Qty: 90 1RF cholecalciferol (vitamin D3) 50 mcg (2,000 unit) capsule 100 mcg PO BEDTIME Qty: 90 3RF (DME) FreeStyle Lite Strips Strip See Rx Instructions .Route Qty: 150 11RF Rx Instructions: As directed- checks 4-5 X/day atorvastatin 40 mg tablet 40 mg PO BEDTIME Qty: 90 1RF montelukast 10 mg tablet 10 mg PO BEDTIME 90 Days Qty: 90 3RF losartan 25 mg tablet 25 mg PO BEDTIME 90 Days Qty: 90 3RF loratadine 10 mg tablet 10 mg PO DAILY Qty: 90 0RF levalbuterol tartrate [Xopenex HFA] 45 mcg/actuation HFA aerosol inhaler 2 puff inhalation Q6H PRN (Reason: shortness of breath or wheezing) 30 Days Qty: 15 11RF ondansetron 8 mg tablet,disintegrating 8 mg PO Q8H PRN (Reason: nausea and vomiting) 10 Days Qty: 30 1RF tizanidine 2 mg tablet 4 mg PO BEDTIME PRN (Reason: for muscle spasm) 30 Days Qty: 60 0RF Eliquis 5 mg tablet 5 mg PO BID 30 Days Qty: 60 3RF hydromorphone 2 mg tablet 2 mg PO TID PRN (Reason: pain) 7 Days Qty: 21 0RF pyridostigmine bromide 60 mg tablet 60 mg PO QID levothyroxine [Synthroid] 112 mcg tablet 224 mcg PO DAILY@0600 Spiriva Respimat 1.25 mcg/actuation mist 2 puff INHALATION DAILY omeprazole 40 mg capsule,delayed release(DR/EC) 40 mg PO BID nystatin [Nystop] 100,000 unit/gram powder 1 appl topical BID calcium citrate 250 mg calcium tablet 250 mg PO BID insulin degludec [Tresiba FlexTouch U-100] 100 unit/mL (3 mL) insulin pen 8 unit subcut DAILY Fiasp FlexTouch U-100 Insulin 100 unit/mL (3 mL) insulin pen 1 sliding scale dose subcut TIDAC daptomycin 350 mg Recon Soln 430 mg IV Q24H Qty: 1 0RF Eliquis DVT-PE Treat 30D Start 5 mg (74 tabs) tablets,dose pack 5 mg PO BID Qty: 74 0RF (DME) DIABETIC SHOES See Rx Instructions .Route .MEDSUPPLY Qty: 1 0RF Rx Instructions: DIABETIC SHOES - 1 PAIR - use as directed -- Dx: E11.9 -- diabetes mellitus (DME) lancets [FreeStyle Lancets] 28 gauge misc See Rx Instructions .MEDSUPPLY Qty: 150 4RF Rx Instructions: 5 times a day Fasenra 30 mg/mL syringe 30 mg subcut Q8W ipratropium bromide 42 mcg (0.06 %) spray,non-aerosol 2 spray intranasal DAILY (DME) nebulizers Misc See Rx Instructions .Route Rx Instructions: As directed carvedilol 6.25 mg tablet 6.25 mg PO DAILY Asmanex HFA 200 mcg/actuation HFA aerosol inhaler 2 puff inhalation BID epinephrine 0.3 mg/0.3 mL auto-injector 0.3 mg IM Q5M PRN (Reason: anaphylaxis) Interventions: ED Discharge Assessment Last Done: 09/05/24 23:54 Discharge Date/Time: 09/06/24 00:18 Print Language: Albanian
[2024-09-05 19:06] LABS: MANUAL DIFF FLAG NO
[2024-09-05 19:09] LABS: Appearance Urine Clear; Color Urine Yellow; Glucose Urine UA 100 mg/dL (Negative); Leukocyte Esterase Urine Small (1+) (Negative); Nitrite Urine Negative (Negative); PH 6.5 (5.0-9.0); Specific Gravity - Urine <= 1.005 (1.005-1.025); UMIC TRIGGER UACC YES; Urine Blood Small (1+) (Negative); Urine Ketones Negative (Negative); Urine Protein Negative (Neg-Trace)
[2024-09-05 19:10] LABS: Hematocrit 32.3 % (37.0-47.0); Hemoglobin 10.8 g/dl (12.0-16.0); Imm Gran Abs Auto 0.05 X10*3/uL (0.00-0.03); Imm Gran Pct Auto 0.7 % (0.0-0.4); Lymphocytes Absolute Auto 1.3 X10*3/uL (1.2-4.9); Lymphocytes Percent Auto 17.6 % (20-40); Mean Corpuscular HGB Conc 33.4 g/dl (31.0-35.0); Mean Corpuscular Hemoglobin 27.8 pg (27.0-33.0); Mean Platelet Volume 10.9 fL (9.4-12.3); Monocytes Absolute Auto 0.5 X10*3/uL (0.1-1.2); Monocytes Percent Auto 7.4 % (2-11); Neutrophils Absolute Auto 5.4 x10*3/uL (2.0-8.3); Neutrophils Percent Auto 74.3 % (45-73); Platelet Count 118 X10*3/uL (160-400); Red Blood Count 3.89 X10*6/uL (4.20-5.50); Red Cell Distribution Width 13.5 % (11.0-16.0); White Blood Count 7.3 X10*3/uL (4.8-10.8)
[2024-09-05 19:23] LABS: Bacteria Urine 4+ (None Seen); Hyaline Casts Urine 0-2 /LPF (0-2); Squamous Epithelial Cell Urine 0-2 /HPF (0-2); UACC Culture Trigger YES; WBC Urine 21-50 /HPF (0-5)
[2024-09-05 19:35] LABS: Alanine Aminotransferase 89 U/L (0-31); Albumin Level 4.1 g/dL (3.5-5.0); Alkaline Phosphatase 126 U/L (39-117); Anion Gap 12 (12-20); Aspartate Amino Transferase 72 U/L (5-31); Blood Urea Nitrogen 16 mg/dL (9-16); Calcium 9.5 mg/dL (8.4-10.2); Carbon Dioxide 26 mmol/L (22-29); Chloride 104 mmol/L (96-108); Creatinine Clr Calc Pharmacy 58.7; Estimated Glomerular Filt Rate 45; Glucose Random 210 mg/dL (60-115); Lipase 20 U/L (8-78); Potassium 3.6 mmol/L (3.3-5.1); Sodium 138 mmol/L (135-145)
--- NOTE | 2024-09-05 21:14 | PC.NURSE ---
pt from waiting room, assume care of pt at this time
[2024-09-05] MEDS: Nitrofurantoin Monohyd/M-Cryst 100 MG CAPSULE PO (22:45)
[2024-09-05] MEDS: Apixaban 5 MG TABLET 10 MG PO (22:45)
--- NOTE | 2024-09-05 22:54 | PC.NURSE ---
pt c/o of generalized pain, ask for pain medication, pt states she takes Dilaudid 2mg at home for arthritis. Explained to pt, I would check with Doctor
[2024-09-05] MEDS: HYDROmorphone HCl 2 MG TABLET PO (23:25)
[2024-09-05] MEDS: Phenazopyridine HCL 200 MG TABLET PO (23:35)
[2024-09-05 23:40] VITALS: BP 156/85; PULSE 111; RESP 18; TEMP 36.7; O2SAT 97
[2024-09-05 23:54] VITALS: BP 156/85; PULSE 111; RESP 18; TEMP 36.7; O2SAT 97
[2024-09-05] MEDS: Dicyclomine HCl 10 MG CAPSULE 20 MG PO (23:57)
== END 2024-09-06 00:18 | disposition home or self-care (01) ==
PROVIDERS: Physician Assistant; Emergency Provider Internal Medicine; PCP Internal Medicine
DX: N39.0 Urinary tract infection, site not specified (principal); E11.9 Type 2 diabetes mellitus without complications; Z79.4 Long term (current) use of insulin; Z79.899 Other long term (current) drug therapy
CPT/HCPCS: 36415; 80053; 81001; 83690; 85025; 87086; 87088; 87186; 99284

== ENCOUNTER 2024-09-09 14:53 | Outpatient (AMB) | payer OTHER, SELFPAY ==
--- NOTE | 2024-09-09 15:02 | A.OFFVIS_ITS ---
Vital Signs 3 09/09/24 15:08 Height 5 ft 4 in Weight 224 lb BMI 38.4 Pulse 71 Pulse Source Pulse Oximeter Temp 98.6 F Temp Source Oral Pulse Oximetry (%) 98 Intake Visit Reasons: meds and picc line possible removal oral request Allergies cephalexin Allergy (Severe, Verified 09/11/24 12:25) Difficulty Breathing latex [LATEX] Allergy (Severe, Verified 09/11/24 12:25) Difficulty Breathing levofloxacin [From LEVAQUIN] Allergy (Severe, Verified 09/11/24 12:25) SHORTNESS OF BREATH, RASH, rash morphine [MORPHINE] Allergy (Severe, Verified 09/11/24 12:25) RASH, asthma exacerbation, rash baclofen [BACLOFEN] Allergy (Intermediate, Verified 09/11/24:) Rash celecoxib [Celebrex] Allergy (Intermediate, Verified 09/11/24 12:) itching, rash, flushing prednisone [PREDNISONE] Allergy (Intermediate, Verified 09/11/24 12:) RASH, asthma exacerbation, rash codeine Allergy (Unknown, Verified 09/11/24 12:) Rash gluten [GLUTEN] Allergy (Unknown, Verified 09/11/24 12:) UNKNOWN oxycodone Allergy (Unknown, Verified 09/11/24 12:) rash ranitidine Allergy (Unknown, Verified 09/11/24 12:) unknown roflumilast [Daliresp] Allergy (Unknown, Verified 09/11/24 12:) rash tramadol [TRAMADOL] Allergy (Unknown, Verified 09/11/24 12:25) RASH,SHORTNESS OF BREATH AND HEADACHE, asthma exacerbation, rash celery Allergy (Verified 09/11/24 12:25) Rash cyclobenzaprine [From Flexeril] Allergy (Verified 09/11/24 12:25) Rash and asthma exacerbation environmental allergies Allergy (Verified 09/11/24 12:25) Cleaning products cause asthma attack pineapple Allergy (Verified 09/11/24 12:25) Rash strawberry Allergy (Verified 09/11/24 12:25) Rash sulfamethoxazole [From Bactrim] Adverse Reaction (Intermediate, Verified 09/11/24 12:25) vertigo trimethoprim [From Bactrim] Adverse Reaction (Intermediate, Verified 09/11/24 12:25) vertigo diazepam [From Valium] Adverse Reaction (Verified 09/11/24 12:25) Cough HPI HPI meds and picc line possible removal oral request: Details: She reports pain and bruising right arm. She was getting Daptomycin through PICC line right arm and had pain and clot was discovered. She has left flexor tenosynovitis and Daptomycin 430/d is done on 09/14. She wishes PICC line out now and said she requested it out in ER and was denied. I was not aware she asked for it out. She has no shortness of breath or signs of PE. FORMERLY [facility], [facility]–1983 Medical History Portal hypertension HTN (hypertension) Anemia Chronic restrictive lung disease Brugada syndrome Shortness of breath Encounter for care related to Port-a-Cath Tinea pedis Recurrent cellulitis of lower extremity CHARLES (obstructive sleep apnea) Hypogammaglobulinemia Cellulitis of both lower extremities Right hip pain Lumbar degenerative disc disease Benign essential hypertension Obesity (BMI 30-39.9) Mitochondrial myopathy Asthma Diabetes mellitus Acquired hypothyroidism Pain of both hip joints Pure hypercholesterolemia Hx of cataract Osteopenia Hypothyroidism Osteoarthritis of hip Gastritis Surgical History History of revision of total replacement of right hip joint (~12/2019) Hx of hand surgery History of removal of Port-a-Cath History of total right hip arthroplasty (~06/03/19) History of eye surgery (~09/2017) History of hip surgery Hx of foot surgery (~01/02/19) History of removal of cyst Hx of left knee surgery History of elbow surgery (~07/2016) Hx of thumb surgery Hx of appendectomy Hx of hysterectomy (~07/2011) Hx of bilateral breast reduction surgery Family History Father Leukemia Mother Hypertension Diabetes Sister Alive and well Brother Pancreatic cancer Paternal Grandmother Stomach cancer Paternal Grandmother Throat cancer Social History Household Members: Family Housing: Apartment Do you presently have visiting nurse or other home services: No Alcohol intake: never Comment: refused bed alarm Patient Tobacco Use Status: Never used Tobacco e-Cigarette/Vaping Use: Never Used Second Hand Smoke Exposure: No Advance Directives Date on File: 10/02/23 service: No Current occupational status: disabled Current occupation: rt handed Cognitive needs: No Hearing needs: No Vision needs: No Review of Systems Const All systems reviewed & are unremarkable except as noted in HPI and below Physical Exam Vital Signs: Last Vital Signs Temp 98.6 F 09/09/24 15:08 Pulse 71 09/09/24 15:08 Pulse Ox 98 09/09/24 15:08 BMI result Body Mass Index 38.4 Const General: cooperative Orientation/consciousness: patient oriented x3 HEENT Head: Yes normal to inspection Mouth: Normal oral and palatal mucosa present Eyes General: appearance normal, both eyes and all related structures Pupils: Equal, round and reactive pupils present Resp Effort & Inspection: normal respiratory effort Cardio Rate: regular rate Rhythm: regular rhythm GI Palpation (GI): Soft to palpation and nontender General: Yes no CVA tenderness Back/Spine/Pelvis Back: no CVA tenderness Skin Other: General skin exam: no rashes or lesions noted Neuro General: patient oriented x3 Cranial nerves: Yes CN's II-XII intact bilaterally and Yes Equal, round and reactive pupils present Extrem Other: General: Yes other (swelling right arm,finger improved) Psych Appearance: grossly normal Assessment & Plan Assessment & Plan (1) Abscess of left index finger: Comment: She had been on Eliquis for arm clot Code(s): L02.512 - Cutaneous abscess of left hand Category: Medical Plan: Treat as needed for arm clot. Stop IV antibiotics and pull PICC line Finsh off with one week Augmentin. Orders: Orders 2 IR cvc remove any age 1109/09/24 L02.512 - Cutaneous abscess of left hand Medications: New 2 amoxicillin-pot clavulanate 875-125 mg 1 tab PO BID 14 tabs 0RF 7 days Coding Level of Care Code Est Pt Level 3 (70280) Diagnoses Abscess of left index finger L02.512
[2024-09-09 15:08] VITALS: PULSE 71; TEMP 37; O2SAT 98; BMI 38.4
== END 2024-09-09 15:35 | disposition home or self-care (01) ==
PROVIDERS: PCP Internal Medicine; Visit Provider Internal Medicine
DX: L02.512 Cutaneous abscess of left hand (principal)
CPT/HCPCS: 99213

== ENCOUNTER → 2024-09-09 14:53 | Outpatient (BNVA) | payer OTHER, SELFPAY | PROVIDERS: PCP Internal Medicine; Visit Provider Internal Medicine | DX: L02.512 Cutaneous abscess of left hand (principal); Z79.2 Long term (current) use of antibiotics; Z95.828 Presence of other vascular implants and grafts | CPT/HCPCS: 99212 ==

== ENCOUNTER 2024-09-09 15:59 | Outpatient (REF) | payer OTHER, SELFPAY | END 2024-09-09 16:00 | disposition home or self-care (01) | LOC: HO.RADIR 15:59 | PROVIDERS: PCP Internal Medicine; Visit Provider Internal Medicine | DX: L02.512 Cutaneous abscess of left hand (principal) | CPT/HCPCS: 99212 ==

== ENCOUNTER 2024-09-11 10:49 | Outpatient (AMB) | payer OTHER, SELFPAY ==
[2024-09-11 10:53] VITALS: BMI 38.4
--- NOTE | 2024-09-11 10:53 | A.OFFVIS_ITS ---
Vital Signs 09/11/24 10:53 Height 5 ft 4 in Weight 224 lb BMI 38.4 Intake Visit Reasons: PO-irrigation and debridement of LT IF 08/19/24 AR Intake Note: Deysi is a 53 yo right hand dominant female who presents today post operatively for a wound check s/p irrigation and debridement of the left index finger done 08/19/[address] Singer Patient reports is unable to bend her left index finger. She continues to have redness. Patient is now taking Eliquis due to new DVT, started one week ago. She is also taking antibiotics PO, peacc line removed on 09/09/24 due to DVT. Allergies cephalexin Allergy (Severe, Verified 09/11/24 12:25) Difficulty Breathing latex [LATEX] Allergy (Severe, Verified 09/11/24 12:25) Difficulty Breathing levofloxacin [From LEVAQUIN] Allergy (Severe, Verified 09/11/24 12:25) SHORTNESS OF BREATH, RASH, rash morphine [MORPHINE] Allergy (Severe, Verified 09/11/24 12:25) RASH, asthma exacerbation, rash baclofen [BACLOFEN] Allergy (Intermediate, Verified 09/11/24 12:25) Rash celecoxib [Celebrex] Allergy (Intermediate, Verified 09/11/24 12:25) itching, rash, flushing prednisone [PREDNISONE] Allergy (Intermediate, Verified 09/11/24 12:25) RASH, asthma exacerbation, rash codeine Allergy (Unknown, Verified 09/11/24 12:25) Rash gluten [GLUTEN] Allergy (Unknown, Verified 09/11/24 12:25) UNKNOWN oxycodone Allergy (Unknown, Verified 09/11/24 12:25) rash ranitidine Allergy (Unknown, Verified 09/11/24 12:25) unknown roflumilast [Daliresp] Allergy (Unknown, Verified 09/11/24 12:25) rash tramadol [TRAMADOL] Allergy (Unknown, Verified 09/11/24 12:25) RASH,SHORTNESS OF BREATH AND HEADACHE, asthma exacerbation, rash celery Allergy (Verified 09/11/24 12:25) Rash cyclobenzaprine [From Flexeril] Allergy (Verified 09/11/24 12:25) Rash and asthma exacerbation environmental allergies Allergy (Verified 09/11/24 12:25) Cleaning products cause asthma attack pineapple Allergy (Verified 09/11/24 12:25) Rash strawberry Allergy (Verified 09/11/24 12:25) Rash sulfamethoxazole [From Bactrim] Adverse Reaction (Intermediate, Verified 09/11/24 12:25) vertigo trimethoprim [From Bactrim] Adverse Reaction (Intermediate, Verified 09/11/24 12:25) vertigo diazepam [From Valium] Adverse Reaction (Verified 09/11/24 12:25) Cough HPI HPI PO-irrigation and debridement of LT IF 08/19/24 AR: Details: Deysi is a 53 year old right hand dominant woman who returns for a wound check, S/P I&D of her left index finger, DOS: 08/19/24. The patient feels that her finger is improving particularly at the proximal and middle phalanx level, and then also back in the 1st webspace area where she had had a fullness for several months. However, she notices that she still has some swelling over the A1 temitope area of the index finger. She says she is still not able to bend her finger .. She has not been able to bend her finger for ~1 year at this point. She says she still has some slight drainage from a very small wound in her palm at about the mid palmar crease, and is concerned about that infection may again worsen. She was supposed to have a 4 week course of IV daptomycin with Dr. Zaldivar for the acute MSSA infection. This was stopped and her PICC line was removed on 09/09/24 due to a RUE DVT. She is now on Eliquis for this, and is being monitored by her PCP. She is currently on PO Abx, as managed by Dr. Napier. She says there was a scheduling issue and her appointment with [facility] was cancelled because it wasn't confirmed.. *Please see my note from 08/28/24 for more information* [facility] Medical History Portal hypertension HTN (hypertension) Anemia Chronic restrictive lung disease Brugada syndrome Shortness of breath Encounter for care related to Port-a-Cath Tinea pedis Recurrent cellulitis of lower extremity CHARLES (obstructive sleep apnea) Hypogammaglobulinemia Cellulitis of both lower extremities Right hip pain Lumbar degenerative disc disease Benign essential hypertension Obesity (BMI 30-39.9) Mitochondrial myopathy Asthma Diabetes mellitus History of revision of total replacement of right hip joint (~12/2019) Acquired hypothyroidism Pain of both hip joints Pure hypercholesterolemia Hx of cataract Osteopenia Hypothyroidism Osteoarthritis of hip Gastritis Surgical History History of revision of total replacement of right hip joint (~12/2019) Hx of hand surgery History of removal of Port-a-Cath History of total right hip arthroplasty (~06/03/19) History of eye surgery (~09/2017) History of hip surgery Hx of foot surgery (~01/02/19) History of removal of cyst Hx of left knee surgery History of elbow surgery (~07/2016) Hx of thumb surgery Hx of appendectomy Hx of hysterectomy (~07/2011) Hx of bilateral breast reduction surgery Family History Father Leukemia Mother Hypertension Diabetes Sister Alive and well Brother Pancreatic cancer Paternal Grandmother Stomach cancer Paternal Grandmother Throat cancer Social History Household Members: Family Housing: Apartment Do you presently have visiting nurse or other home services: No Alcohol intake: never Comment: refused bed alarm Patient Tobacco Use Status: Never used Tobacco e-Cigarette/Vaping Use: Never Used Second Hand Smoke Exposure: No Advance Directives Date on File: 10/02/23 service: No Current occupational status: disabled Current occupation: rt handed Cognitive needs: No Hearing needs: No Vision needs: No Review of Systems Const All systems reviewed & are unremarkable except as noted in HPI and below Physical Exam Vital Signs: BMI result Body Mass Index 38.4 Const General: no acute distress and alert Orientation/consciousness: patient oriented x3 Neuro General: patient oriented x3 Extrem Other: Patient was alert oriented and in no acute distress. She still has some swellingover the A1 temitope area of the left index finger and extending proximally. The erythema appears to have resolved. The incisions over the volar aspect of the middle and proximal phalanx and over the dorsal aspect of the middle phalanx were all well healed. The apex bruiner's incision at the mid-palmar crease still appears to have an approximately ~1-2mm opening. There was no drainage seen today in clinic, and no drainage when I passively brought the index finger through flexion and extension . However the patient reports occasional drainage seen on her bandages, and with passive flexion of the index finger. She is worried that if this small wound closes, that she will again develop swel ling in an infection. The index finger is held in extension. She has no active flexion at the PIP or DIP joints of the index finger, and reports that she has not had any active flexion in that finger for 8-12 months. Good active flexion and extension of the middle ring and small fingers and the thumb. Sensation intact to the tip of the index finger Overall she is happy with the improved appearance of her finger. Summary results: Histopathology: This is from the tissue removed from the flexor tendon sheath to the index finger Diagnosis Soft tissue, left index finger, excision: Dense fibrovascular tissue with acute and chronic inflammation and necrosis; negative for malignancy. Cultures: Gram stain Final 08/19/24-1538 Gram stain results: 1+ polys 4+ red blood cells No organisms seen Routine Culture Final 08/22/24-0810 Organism 1 Staphylococcus aureus Quantity 1+ S aureus M.I.C. RX --------- --- Clindamycin <=0.25 R Erythromycin >=8 R Levofloxacin <=0.12 S Oxacillin <=0.25 S Penicillin-G >=0.5 R Tetracycline <=1 S Trimethoprim/Sulfamethoxazole <=10 S Anaerobic Culture Final 08/24/24-1050 Report No anaerobes isolated. AFB CULTURE RESULTS Acid-Fast Smear Final 08/27/24-1011 Acid-Fast Smear No acid-fast bacilli seen. 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 Left index finger acute purulent infection, S/P I&D 2. Left index finger acute purulent flexor tenosynovitis, S/P flexor tenosynovectomy of FDP and FDS tendons These symptoms began about a week before presentation to [facility] 3. Left index finger chronic flexor tenosynovitis, status post I and D AFB smear was negative Importantly, AFB cultures are slow growing and are still PENDING I was able to have a conversation with Dr. Latif about this patient. The chronic index finger swelling and inability to actively flex the index finger has been going on for 8-12 months, and has been managed at [facility] by Dr. Latif. It sounds like this may have begun following a simple index finger A1 temitope release. She had also undergone an I&D at [facility] in January of 2024. It sounds like this was more at the index finger middle phalanx level. Per patient report she continued to develop chronic swelling of index finger with lack of active flexion of the index finger for at least [address] Latif had referred her to [facility], however this appointment was canceled by the clinic due to a scheduling issue. The patient reports it was skin canceled because it had not been confirmed. I have asked the patient to again contact the [facility] to be seen for this complex issue. If need be, she can get another referral from Dr. Latif, and they should be aware of her concerns. She should also bring copies of our op report, culture results and our clinic notes so that they are aware of these findings. This is all regarding the chronic swelling and lack of motion in the index finger, which I believe may be related to a possible mycobacterial infection. AFB Cultures again are pending. The patient course of IV daptomycin was stopped early due to a DVT. This was managed & stopped by Dr. Napier, who has now put her on PO Abx Cultures: MSSA She appears to be having good resolution of the acute purulent infection, particularly in the index finger . Still some mild swelling around the A1 temitope area. I encouraged her to allow that 1-2 mm remaining wound at the apex of the Skylar incision at the mid palmar crease to close. Regarding the more chronic, potentially mycobacterial infection: Preliminary AFB swab was negative AFB cultures will take a while and are still pending Regarding the chronic presentation of the left index finger, clinical and intra operative picture appears most consistent with a possible mycobacterial infection of the flexor tendon sheath which is likely been going on for several months. Other possibilities are autoimmune inflammatory, though less likely. She will continue with daily wound care. Follow up in 4-5 weeks to see how she is doing and to check the AFB culture results.. She knows to follow up sooner if she is having any increased pain swelling or drainage or any other concerns. We will continue to follow with her until her AFB culture results are in. She is also going to work on gentle passive range of motion exercises to improve at least passive range of motion of the index finger. Given that she has not had any active flexion of the index finger for at least 8 months, she would likely require an operative and more extensive flexor tenosynovectomy and release of adhesions between the flexor tendons and the flexor tendon sheath to regain active flexion of the digit. This is likely best managed by her original hand surgeon, Dr. Latif, I let her know that any chronic infectious process would need to be properly identified and well underway to resolution before this could be considered.. Scribed for Nisha Singer MD by Niels Blum, medical representative, on 09/11/24 at 11:15 AM, EST. 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
== END 2024-09-11 11:38 | disposition home or self-care (01) ==
PROVIDERS: PCP Internal Medicine; Visit Provider Orthopaedic Surgery
DX: M65.949 Unspecified synovitis and tenosynovitis, unspecified hand (principal); L03.012 Cellulitis of left finger; E13.9 Other specified diabetes mellitus without complications
CPT/HCPCS: 99024

== ENCOUNTER → 2024-09-11 10:49 | Outpatient (BNVA) | payer OTHER, SELFPAY | PROVIDERS: PCP Internal Medicine; Visit Provider Orthopaedic Surgery | DX: Z48.817 Encounter for surgical aftercare following surgery on the skin and subcutaneous tissue (principal); M65.842 Other synovitis and tenosynovitis, left hand; I82.621 Acute embolism and thrombosis of deep veins of right upper extremity; L03.012 Cellulitis of left finger; E11.65 Type 2 diabetes mellitus with hyperglycemia; I10 Essential (primary) hypertension; E78.00 Pure hypercholesterolemia, unspecified; J45.40 Moderate persistent asthma, uncomplicated; E03.9 Hypothyroidism, unspecified; G71.3 Mitochondrial myopathy, not elsewhere classified; I85.00 Esophageal varices without bleeding; K76.6 Portal hypertension; K31.89 Other diseases of stomach and duodenum; R79.89 Other specified abnormal findings of blood chemistry; D64.9 Anemia, unspecified; N28.9 Disorder of kidney and ureter, unspecified; M51.360 Other intervertebral disc degeneration, lumbar region with discogenic back pain only; M16.0 Bilateral primary osteoarthritis of hip; E66.9 Obesity, unspecified; Z79.4 Long term (current) use of insulin; Z79.899 Other long term (current) drug therapy | CPT/HCPCS: 96127; 99212 ==

== ENCOUNTER 2024-09-11 11:42 | Outpatient (AMB) | payer OTHER, SELFPAY ==
[2024-09-11 11:47] VITALS: BP 126/80; PULSE 90; O2SAT 97; BMI 37.3
--- NOTE | 2024-09-11 11:47 | MHC.PC.OV ---
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 Panel Fast 3 Months E78.00 - Pure hypercholesterolemia, unspecified Free T4 (Free Thyroxine) 3 Months E03.9 - Hypothyroidism, unspecified Thyroid Stimulating Hormone 3 Months E03.9 - Hypothyroidism, unspecified Lipid Panel 3 Months E78.00 - Pure hypercholesterolemia, unspecified UA CC w/rflx Micro + Cult 3 Months R30.0 - Dysuria Vitamin D 25-OH Total 3 Months E55.9 - Vitamin D deficiency, unspecified Medications: New rivaroxaban (Xarelto DVT-PE Treatment 30-Day Starter) take one-15 mg tablet twice daily for 21 days, then one-20 mg tablet once daily; must take with meal/food PO 51 ea 0RF Changed From nystatin (Nystop) 1 appl topical BID To nystatin (Nystop) 1 appl topical BID PRN 60 grams 0RF rash Refilled hydromorphone 2 mg PO TID PRN 21 tabs 0RF pain 7 days M51.36 - Other intervertebral disc degeneration, lumbar region Discontinued apixaban (Eliquis DVT-PE Treat 30D Start) Discontinued Reason: Doctor's Order 5 mg PO BID 74 ea 0RF apixaban (Eliquis) Discontinued Reason: Doctor's Order 5 mg PO BID 30 days 60 tabs 3RF
== END 2024-09-11 12:38 | disposition home or self-care (01) ==
PROVIDERS: PCP Internal Medicine; Visit Provider Internal Medicine
DX: E11.65 Type 2 diabetes mellitus with hyperglycemia (principal); I82.621 Acute embolism and thrombosis of deep veins of right upper extremity; Z79.4 Long term (current) use of insulin; I85.00 Esophageal varices without bleeding; K76.6 Portal hypertension; L03.012 Cellulitis of left finger; I10 Essential (primary) hypertension; E78.00 Pure hypercholesterolemia, unspecified; J45.40 Moderate persistent asthma, uncomplicated; E03.9 Hypothyroidism, unspecified; G71.3 Mitochondrial myopathy, not elsewhere classified; K31.89 Other diseases of stomach and duodenum

== ENCOUNTER 2024-10-15 09:48 | Outpatient (AMB) | payer OTHER, SELFPAY ==
--- NOTE | 2024-10-15 09:50 | MHC.OFFVIS ---
Vital Signs 10/15/24 09:53 Height 5 ft 4 in Weight 217 lb BMI 37.2 Intake Visit Reasons: PO- Wound check of LT IF 08/19/24 AR Intake Note: Deysi is a 53 year old right hand dominant female who presents today post operatively for a wound check s/p irrigation and debridement of the left index finger done 08/19/[address] Singer and to review her AFB culture results. States she is doing better. Patient mentions that she is unable to bend her finger. Allergies cephalexin Allergy (Severe, Verified 10/15/24 09:53) Difficulty Breathing latex [LATEX] Allergy (Severe, Verified 10/15/24 09:53) Difficulty Breathing levofloxacin [From LEVAQUIN] Allergy (Severe, Verified 10/15/24 09:53) SHORTNESS OF BREATH, RASH, rash morphine [MORPHINE] Allergy (Severe, Verified 10/15/24 09:53) RASH, asthma exacerbation, rash baclofen [BACLOFEN] Allergy (Intermediate, Verified 10/15/24 09:53) Rash celecoxib [Celebrex] Allergy (Intermediate, Verified 10/15/24 09:53) itching, rash, flushing prednisone [PREDNISONE] Allergy (Intermediate, Verified 10/15/24 09:53) RASH, asthma exacerbation, rash codeine Allergy (Unknown, Verified 10/15/24 09:53) Rash gluten [GLUTEN] Allergy (Unknown, Verified 10/15/24 09:53) UNKNOWN oxycodone Allergy (Unknown, Verified 10/15/24 09:53) rash ranitidine Allergy (Unknown, Verified 10/15/24 09:53) unknown roflumilast [Daliresp] Allergy (Unknown, Verified 10/15/24 09:53) rash tramadol [TRAMADOL] Allergy (Unknown, Verified 10/15/24 09:53) RASH,SHORTNESS OF BREATH AND HEADACHE, asthma exacerbation, rash celery Allergy (Verified 10/15/24 09:53) Rash cyclobenzaprine [From Flexeril] Allergy (Verified 10/15/24 09:53) Rash and asthma exacerbation environmental allergies Allergy (Verified 10/15/24 09:53) Cleaning products cause asthma attack pineapple Allergy (Verified 10/15/24 09:53) Rash strawberry Allergy (Verified 10/15/24 09:53) Rash sulfamethoxazole [From Bactrim] Adverse Reaction (Intermediate, Verified 10/15/24 09:53) vertigo trimethoprim [From Bactrim] Adverse Reaction (Intermediate, Verified 10/15/24 09:53) vertigo diazepam [From Valium] Adverse Reaction (Verified 10/15/24 09:53) Cough HPI HPI PO- Wound check of LT IF 08/19/24 AR: Details: Deysi is a 53 year old right hand dominant woman who returns for a wound check, S/P I&D of her left index finger, DOS: 08/19/24. The patient is happy that she has had significant improvement, particularly that there is no longer any drainage from her left index finger. All of her wounds have now healed. The fullness that she had in the area of the A1 temitope is less than it was before surgery, but she knows that it is still there. She says she is still not able to bend her finger .. She has not been able to bend her finger for ~[address] Napier, of Infectious Disease, managed her with a brief course of IV antibiotics and some oral antibiotics. She notes that she has all finished with her antibiotics. She says there was a scheduling issue and her appointment with [facility] was cancelled because it wasn't confirmed.. [facility] Medical History (Updated 09/16/24 @ 11:22 by Nisha Singer MD) Renal insufficiency Obesity (BMI 30-39.9) Mitochondrial myopathy Diabetes mellitus Portal hypertensive gastropathy Esophageal varices determined by endoscopy Portal hypertension HTN (hypertension) Anemia Chronic restrictive lung disease Brugada syndrome Shortness of breath Encounter for care related to Port-a-Cath Tinea pedis Recurrent cellulitis of lower extremity CHARLES (obstructive sleep apnea) Hypogammaglobulinemia Cellulitis of both lower extremities Right hip pain Lumbar degenerative disc disease Benign essential hypertension Asthma Acquired hypothyroidism Pure hypercholesterolemia Hx of cataract Osteopenia Osteoarthritis of hip Gastritis Surgical History History of revision of total replacement of right hip joint (~12/2019) Hx of hand surgery History of removal of Port-a-Cath History of total right hip arthroplasty (~06/03/19) History of eye surgery (~09/2017) History of hip surgery Hx of foot surgery (~01/02/19) History of removal of cyst Hx of left knee surgery History of elbow surgery (~07/2016) Hx of thumb surgery Hx of appendectomy Hx of hysterectomy (~07/2011) Hx of bilateral breast reduction surgery Family History Father Leukemia Mother Hypertension Diabetes Sister Alive and well Brother Pancreatic cancer Paternal Grandmother Stomach cancer Paternal Grandmother Throat cancer Social History Household Members: Family Housing: Apartment Do you presently have visiting nurse or other home services: No Alcohol intake: never Comment: refused bed alarm Patient Tobacco Use Status: Never used Tobacco e-Cigarette/Vaping Use: Never Used Second Hand Smoke Exposure: No Advance Directives Date on File: 10/02/23 service: No Current occupational status: disabled Current occupation: rt handed Cognitive needs: No Hearing needs: No Vision needs: No Physical Exam Vital Signs: BMI result Body Mass Index 37.2 Extrem Other: Patient was alert oriented and in no acute distress. All wounds and incisions are now well healed. There is no longer any erythema warmth or drainage. When I ask her to make a fist she can do so easily with all of the digits except for the index finger which she keeps fully extended. I showed her that when she makes a fist she can easily actively flex the index finger at the MCP joint, and noted that I want her to do so. She also has some slight flexion, perhaps 10 degrees at the PIP joint. The finger and the palm of her hand are completely nontender. She notes that she no longer has any pain in her hand. She does have that fullness extending from the volar aspect of the index finger across the A1 temitope and up into the palm, following the flexor tendons of the index finger. Summary results: Histopathology: This is from the tissue removed from the flexor tendon sheath to the index finger Diagnosis Soft tissue, left index finger, excision: Dense fibrovascular tissue with acute and chronic inflammation and necrosis; negative for malignancy. Cultures: Gram stain Final 08/19/24-1538 Gram stain results: 1+ polys 4+ red blood cells No organisms seen Routine Culture Final 08/22/24-0810 Organism 1 Staphylococcus aureus Quantity 1+ S aureus M.I.C. RX --------- --- Clindamycin <=0.25 R Erythromycin >=8 R Levofloxacin <=0.12 S Oxacillin <=0.25 S Penicillin-G >=0.5 R Tetracycline <=1 S Trimethoprim/Sulfamethoxazole <=10 S Anaerobic Culture Final 08/24/24-1050 Report No anaerobes isolated. AFB CULTURE RESULTS Acid-Fast Smear Final 08/27/24-1011 Acid-Fast Smear No acid-fast bacilli seen. Acid-Fast Culture PENDING Dr. Singer addendum I called the lab, the acid-fast bacilli culture is indeed still pending, and they expect it to be finalized in the next couple of weeks. Assessment & Plan Assessment & Plan (1) Tenosynovitis of finger: Comment: She has finger swelling still,doesnt look much better. Code(s): M65.949 - Unspecified synovitis and tenosynovitis, unspecified hand Category: Medical (2) Abscess of left index finger: Comment: She had been on Eliquis for arm clot Code(s): L02.512 - Cutaneous abscess of left hand Category: Medical Plan Assessment and plan: 1. Left index finger acute purulent infection, S/P I&D 2. Left index finger acute purulent flexor tenosynovitis, S/P flexor tenosynovectomy of FDP and FDS tendons These symptoms began about a week before presentation to [facility] [place] I believe her acute purulent infection has completely resolved. 3. Left index finger chronic flexor tenosynovitis, status post I and D Actual tissue specimens removed from the patient were sent for cultures. AFB smear was negative Importantly, AFB cultures are slow growing and are still PENDING 4. Left index finger very limited active flexion, secondary to infection and mass effect within flexor tendon sheath times 9-10 months. I educated her about these issues She is very pleased about the resolution of the chronic drainage that she had had for quite some time. She is going to work on active and passive range of motion exercises for the index finger. I am going to refer her to OT to see if this can be helpful. Follow up in 4-5 weeks to see how she is doing and to check the final AFB culture results.. She is not interested in returning to [facility] for this issue. I am concerned that she still has the fullness in line with the flexor tendons of the index finger, and that she also does not have good active flexion of that index finger. At some point she might benefit from another flexor tenosynovectomy and lysis of adhesions to try to improve active index finger flexion. However, I believe it is important to 1st identify the cause of the localized swelling and soft tissue mass formation within and around the flexor tendon sheath. A slow growing mycobacterial infection appeared to me to be most likely. If these cultures come back negative, I believe that it is still important to further pursue and identified this issue. My recommendation at that point would be to refer her to [facility] to see if they have any other ideas for what could be causing this issue. I might consider a repeat I&D and have the cultures be worked up within their laboratory, perhaps with special staining based on their I.D. recommendations. She was amenable to this plan. Please see my note from 09/11/2024 for additional information as needed. Coding Level of Care Code Global (57221) Diagnoses Tenosynovitis of finger M65.949 Abscess of left index finger L02.512
[2024-10-15 09:53] VITALS: BMI 37.2
--- OUTSIDE RECORDS SUMMARY | 2024-10-15 09:56 | XMS_ITS | Continuity of Care Document ---
Author Organization [facility] Address [address] [place] [id number]- Care Team Providers Care Children'S Librarian Name Role Phone Tae RANDOLPH, Cassius Mtz Primary Care Physician [phone] Encounter [facility] Date(s): 09/02/24 - 10/02/24 [facility] [address] [place] [id number] Attending Physician: Admtr, [id number] Admitting Physician: Admtr, [id number] Referring Physician: Admtr, Ar8 Encounter Type: Triage Allergies, Adverse Reactions, Alerts Substance Criticality Severity Reaction Reaction Severity Status codeine Unable to assess criticality Persistent Severe rash Active cephalexin abdominal pain and headaches Active morphine Unable to assess criticality Persistent Severe dizziness,rash Active predniSONE 1 Unable to assess criticality Persistent Severe rash, asthma worsens Active Flexeril Unable to assess criticality Persistent Severe rash, disoriented Active Levaquin 2 Unable to assess criticality Persistent Severe chest pain rash Active Vicodin Unable to assess criticality Persistent Severe bad headache and loss of vision Active Glutens Unable to assess criticality Persistent Severe gi upset, diarrhea with bloating Active Latex Unable to assess criticality Persistent Severe rash with asthma worsening Active Strawberries Unable to assess criticality Persistent Severe dyspnea Active Other Food Allergy Unable to assess criticality Persistent Severe raw carrots Active Other Environmental Allergy 3, 4 Unable to assess criticality Persistent 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, 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, 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, 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 Apples Unable to assess criticality Persistent Severe mouth tingles and asthma worsens Active Celery Unable to assess criticality Persistent Severe tingly mouth and asthma worsens Active Lactose Unable to assess criticality Persistent Severe gas, bloating Active Oranges Unable to assess criticality Persistent Severe asthma worsens Active TraMADol Hydrochloride Unable to assess criticality Persistent Severe rash and lightheadedness Active Pineapple Unable to assess criticality Persistent Severe dyspnea Active 1can take Medrol 2rash and chest pain 3flowers 4all are asthma triggers Medications atorvastatin 40 mg oral tablet 1 tablet = 40 mg, By Mouth, Daily before lunch, # 30 tablet, 5 Refills, Maintenance, 01/06/22 10:18:00 AM EDT, Tablet, Partial fill upon patient request if the prescription is for a schedule II opioiddrug. Start Date: 01/06/22 Status: Ordered Quantity: 30.0 Unit: tablet Repeat number: 1 carvedilol 6.25 mg oral tablet 6.25 mg, 1, tablet, By Mouth, 2 times a day, Refills 0, Maintenance, 10/17/23 10:59:00 AM EST, Partial fill upon patient request if the prescription is for a schedule II opioid drug. Start Date: 10/17/23 Status: Ordered Repeat number: 1 Claritin 10 mg oral tablet 1 tablet = 10 mg, By Mouth, Daily, 0 Refills, Maintenance, 03/22/12 1:15:23 PM EDT, Tablet Start Date: 03/22/12 Status: Ordered Repeat number: 1 Fasenra Prefilled Syringe 30 mg/mL subcutaneous solution 0 Refills, Maintenance, 07/22/22 12:36:00 PM EDT, Partial fill upon patient request if the prescription is for a schedule II opioid drug. Start Date: 07/22/22 Status: Ordered Repeat number: 1 Ferrous Sulfate EC 325, By Mouth, Daily, Refills 0, Maintenance, 04/25/17 7:22:38 AM EDT Start Date: 04/25/17 Status: Ordered Repeat number: 1 Gammagard See Instructions, every 21 days, 0 Refills, Maintenance, 01/06/22 10:18:00 AM EDT, Partial fill uponpatient request if the prescription is for a schedule II opioid drug. Start Date: 01/06/22 Status: Ordered Repeat number: 1 Hydromorphone = 2 mg, By Mouth, 2 times a day, 0 Refills, Maintenance, 01/06/22 10:18:00 AM EDT, Partial fill uponpatient request if the prescription is for a schedule II opioid drug. Start Date: 01/06/22 Status: Ordered Repeat number: 1 Ibuprofen 600 mg, 2 times a day, Refills 0, Maintenance, 01/06/22 10:18:00 AM EDT, Partial fill upon patient request if the prescription is for a schedule II opioid drug. Start Date: 01/06/22 Status: Ordered Repeat number: 1 ipratropium nasal 42 mcg/inh spray 2 sprays, Nares, Both, Daily in AM, 0 Refills, Maintenance, 03/12/14 11:11:14 AM EDT Start Date: 03/12/14 Status: Ordered Repeat number: 1 Lantus Solostar Pen 100 units/mL subcutaneous solution INJECT 4 UNITS SUBCUTANEOUSLY EVERY EVENING. Start Date: 07/20/22 Status: Ordered Repeat number: 1 levothyroxine 0.112 mg oral tablet 2 tablet = 224 mcg, By Mouth, Daily at bedtime, 0 Refills, Maintenance, 01/19/22 5:21:00 PM EDT, Partial fill upon patient request if the prescription is for a schedule II opioid drug. Start Date: 01/19/22 Status: Ordered Repeat number: 1 losartan 25 mg oral tablet 25 mg, 1, tablet, By Mouth, Daily at bedtime, Refills 0, Maintenance, 01/19/22 3:09:00 PM EDT, Partial fill upon patient request if the prescription is for a schedule II opioid drug. Start Date: 01/19/22 Status: Ordered Repeat number: 1 Mestinon 60 mg oral tablet 1 tablet = 60 mg, By Mouth, 4 times a day, 0 Refills, Maintenance, 11/10/14 12:47:17 PM EST Start Date: 11/10/14 Status: Ordered Repeat number: 1 metFORMIN 500 mg oral tablet 1 tablet = 500 mg, By Mouth, 2 times a day, 0 Refills, Maintenance, 11/07/17 12:22:08 PM EST Start Date: 11/07/17 Status: Ordered Repeat number: 1 metoprolol 50 mg oral tablet 50 mg, 1, tablet, By Mouth, Daily in AM, Refills 0, Maintenance, 05/15/18 9:48:25 AM EDT Start Date: 05/15/18 Status: Ordered Repeat number: 1 montelukast 10 mg oral tablet 10 mg, 1, tablet, By Mouth, Daily at bedtime, Refills 0, Maintenance, 11/07/17 12:31:26 PM EST Start Date: 11/07/17 Status: Ordered Repeat number: 1 omeprazole 40 mg oral enteric coated capsule 1 capsule = 40 mg, By Mouth, Daily at bedtime, 0 Refills, Maintenance, 04/25/17 7:25:18 AM EDT, EC Capsule Start Date: 04/25/17 Status: Ordered Repeat number: 1 Spiriva Respimat 28 inhalation aerosol = 2.5 mcg, Inhalation, Daily, 0 Refills, Maintenance, 02/23/15 9:06:31 AM EDT Start Date: 02/23/15 Status: Ordered Repeat number: 1 tiZANidine 2 mg oral capsule 2 capsule = 4 mg, By Mouth, Daily at bedtime, 0 Refills, Maintenance, 01/06/22 10:21:00 AM EDT, Partial fill upon patient request if the prescription is for a schedule II opioid drug. Start Date: 01/06/22 Status: Ordered Repeat number: 1 Vitamin D3 2000 intl units oral capsule 2 capsule = 4,000 International_Units, By Mouth, Daily, Maintenance, 01/02/19 12:27:12 PM EDT Start Date: 01/02/19 Status: Ordered Repeat number: 1 Xopenex HFA 45 mcg/inh inhalation aerosol 2 puffs, Inhalation, Every 4 hours, PRN Wheezing/Shortness of Breath, 0 Refills, Maintenance, 03/26/18 1:34:59 PM EDT, Aerosol Start Date: 03/26/18 Status: Ordered Repeat number: 1 Zofran 4 mg oral tablet 1 tablet = 4 mg, By Mouth, Every 8 hours, PRN as needed for nausea/vomiting, # 21 tablet, 0 Refills, Maintenance, 01/21/22 7:25:00 AM EDT, Tablet, [facility] 3, Partial fill upon patient request if the prescription is for a schedule II opioid drug., 162, cm, 01/21/22 6:22:00 EDT, Height, 104, kg, 01/21/22 6:22:00 EDT, Dry Weight Start Date: 01/21/22 Stop Date: 01/28/22 Status: Ordered Quantity: 21.0 Unit: tablet Repeat number: 1 Problem List Condition Confirmation Course Effective Dates [...] Status Never smoker entered on: 08/28/14 Sex Sex Representation Female (finding) Implantable Device List Procedure Provider Procedure Date Device Type Site Fusion/Arthrodesis First MetatarsophChetan Murphy MD 01/11/19 Unknown Foot Right Device Identifier Serial Number Lot or Batch Number Manufacturing Date Expiration Date Distinct Identification Code MRI Safety Implantable Status Assigning Authority Unknown Unknown [id number] Unknown 08/12/21 Unknown Unknown Active Un known Patient Care team information Care Team Personnel Name: Cassius Strong MD Position: Reference Physician Member Role: PCP Address: [address] [place] [id number]- Telecom: Name: Leela Aguirre RN Position: [facility] RN Member Role: Primary Care Nurse Name: Elvira Maldonado RN Position: [facility] RN Member Role: Primary Care Nurse Name: Valerie Vela NP Position: Reference Physician Member Role: Primary Care Nurse Address: [address] [place] [id number] [place] Telecom: Name: Marcia Manning RN Position: [facility] Onco RN Member Role: Primary Care Nurse Name: Carol Ann Torres RN Position: [facility] RN Member Role: Primary Care Nurse Name: Bhavna Vazquez RN Position: [facility] Onco RN Member Role: Primary Care Nurse Name: Valerie Hernandez RN Position: [facility] SN Entertainment Centre Manager Member Role: Primary Care Nurse Name: Vivi Kaur RN Position: [facility] SN RN Member Role: Primary Care Nurse Name: Scott Oviedo Position: [facility] RN Member Role: Primary Care Nurse Name: Mook Marinelli RN Position: [facility] RN Member Role: Primary Care Nurse Name: Stfeano Negron MD Position: [facility] Physician (General Medicine) Member Role: Lifetime Consulting Physician Address: [address] [place] [address] [place] [address]- [place] Telecom: Name: Stefania Polk RN Position: [facility] AMB Nurse Member Role: Primary Care Nurse Name: Tessie Jason RN Position: [facility] RN Member Role: Primary Care Nurse Name: Wander Ferraro RN Position: [facility] RN Member Role: Primary Care Nurse Name: Chandan Patiño Position: [facility] Outreach Member Role: Lifetime Consulting Physician Name: Tasha Lambert RN Position: [facility] OB RN Member Role: Primary Care Nurse Name: Chetan Mullen RN Position: [facility] ED RN W/OE and Tasks Member Role: Primary Care Nurse Name: Pooja Espino RN Position: [facility] Hospital Remote Inpatient Coder Member Role: Primary Care Nurse Care Team Related Persons Name: ROBERT HERNÁNDEZ Name: KAREN SHANNON Name: MARTHA SHANNON Name: MARCELINO MALCOLM Insurance Providers Guarantor name: [facility] Health Plan Information #: 1 Payer: [facility] [employer] C[employer] Member Number: NA Policy Number: NA Group Number: NA
--- OUTSIDE RECORDS SUMMARY | 2024-10-15 09:57 | XMS_ITS | Continuity of Care Document ---
Author Organization [facility] Address [address] [place] [id number] Care Team Providers Care Purchasing Specialist Name Role Phone Cassius Strong MD Primary Care Physician [phone] Encounter [facility] [id number] Date(s): 08/01/24 - 10/02/24 [facility] [address] [place] [id number] Attending Physician: Arsalan Mora MD Admitting Physician: Arsalan Mora MD Referring Physician: Cassius Strong MD Encounter Type: Pre-OutPatient One Time Allergies, Adverse Reactions, Alerts Substance Criticality Severity Reaction Reaction Severity Status codeine Unable to assess criticality Persistent Severe rash Active morphine Unable to assess criticality Persistent Severe dizziness,rash Active Levaquin 1 Unable to assess criticality Persistent Severe chest pain rash Active Vicodin Unable to assess criticality Persistent Severe bad headache and loss of vision Active Glutens Unable to assess criticality Persistent Severe gi upset, diarrhea with bloating Active cephalexin abdominal pain and headaches Active predniSONE 2 Unable to assess criticality Persistent Severe rash, asthma worsens Active Flexeril Unable to assess criticality Persistent Severe rash, disoriented Active Latex Unable to assess criticality Persistent Severe rash with asthma worsening Active Strawberries Unable to assess criticality Persistent Severe dyspnea Active Other Food Allergy Unable to assess criticality Persistent Severe raw carrots Active Other Environmental Allergy 3, 4 Unable to assess criticality Persistent 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, plants, 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, 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 Apples Unable to assess criticality [...] to assess criticality Persistent Severe dyspnea Active 1rash and chest pain 2can take [...] Refills, Maintenance, 01/21/22 7:25:00 AM EDT, Tablet, [facility] 3, Partial fill upon patient request if [...] Procedure Date Device Type Site Fusion/Arthrodesis First Chetan Barreto MD 01/11/19 Unknown Foot Right Device Identifier Serial Number Lot or Batch Number Manufacturing Date Expiration Date Distinct Identification Code MRI Safety Implantable Status Assigning Authority Unknown Unknown [id number] Unknown 08/12/21 Unknown Unknown Active Un known Patient Care team information Care Team Personnel Name: Cassius Strong MD Position: Reference Physician Member Role: PCP Address: [address] [place] [id number] Telecom: Name: Leela Aguirre RN Position: [facility] RN Member Role: Primary Care Nurse Name: Elvira Maldonado RN Position: [facility] RN Member Role: Primary Care Nurse Name: Valerie Vela NP Position: Reference Physician Member Role: Primary Care Nurse Address: [address] [place] [id number] [employer] Telecom: Name: Marcia Manning RN Position: [facility] Onco RN Member Role: Primary Care Nurse Name: Carol Ann Torres RN Position: [facility] RN Member Role: Primary Care Nurse Name: Bhavna Vazquez RN Position: [facility] Onco RN Member Role: Primary Care Nurse Name: Valerie Hernandez RN Position: [facility] SN Runner Worker Member Role: Primary Care Nurse Name: Vivi Kaur RN Position: [facility] SN RN Member Role: Primary Care Nurse Name: Scott Oviedo Position: [facility] RN Member Role: Primary Care Nurse Name: Mook Marinelli RN Position: [facility] RN Member Role: Primary Care Nurse Name: Stefano Negron MD Position: [facility] Physician (General Medicine) Member Role: [employer] Consult[employer] Physician Address: [address] [place] [address] [place] [address]- [employer] Telecom: Name: Stefania Polk RN Position: [facility] AMB Nurse Member Role: Primary Care Nurse Name: Tessie Jason RN Position: [facility] RN Member Role: Primary Care Nurse Name: Wander Ferraro RN Position: [facility] RN Member Role: Primary Care Nurse Name: Chandan Patiño Position: [facility] Outreach Member Role: [employer] Physician Name: Tasha Lambert RN Position: [facility] OB RN Member Role: Primary Care Nurse Name: Chetan Mullen RN Position: [facility] ED RN W/OE and Tasks Member Role: Primary Care Nurse Name: Pooja Espino RN Position: [facility] Hospital Automobile Washer Steam Member Role: Primary Care Nurse Care Team Related Persons Name: ROBERT HERNÁNDEZ Name: KAREN SHANNON Name: MARTHA SHANNON Name: MARCELINO MALCOLM Insurance Providers Guarantor name: JUANCHO SHANNON Health Plan Information #: 1 Payer: [employer] Member Number: [id number] Policy Number: NA Group Number: [facility] Health Plan Information #: 2 Payer: [facility] Member Number: [id number] Policy Number: NA Group Number: [id number]
== END 2024-10-15 10:58 | disposition home or self-care (01) ==
PROVIDERS: PCP Internal Medicine; Visit Provider Orthopaedic Surgery
DX: M65.949 Unspecified synovitis and tenosynovitis, unspecified hand (principal); L02.512 Cutaneous abscess of left hand
CPT/HCPCS: 99024

== ENCOUNTER → 2024-10-15 09:48 | Outpatient (BNVA) | payer OTHER, SELFPAY | PROVIDERS: PCP Internal Medicine | DX: M65.949 Unspecified synovitis and tenosynovitis, unspecified hand (principal); L02.512 Cutaneous abscess of left hand | CPT/HCPCS: 99212 ==

== ENCOUNTER 2024-10-28 11:25 | Outpatient (AMB) | payer OTHER, SELFPAY ==
[2024-10-28 11:29] VITALS: BP 164/88; PULSE 86; O2SAT 99; BMI 38.4
--- NOTE | 2024-10-28 11:29 | A.OFFVIS_ITS ---
Vital Signs 10/28/24 11:29 Height 5 ft 4 in Weight 223 lb 12.307 oz BMI 38.4 BP 164/88 H Blood Pressure Location Rt brachial Position Sitting Pulse 86 Pulse Source Pulse Oximeter Pulse Oximetry (%) 99 Oxygen Delivery Method Room Air Intake Visit Reasons: COPD Allergies cephalexin Allergy (Severe, Verified 10/28/24 11:34) Difficulty Breathing latex [LATEX] Allergy (Severe, Verified 10/28/24:34) Difficulty Breathing levofloxacin [From LEVAQUIN] Allergy (Severe, Verified 10/28/24:34) SHORTNESS OF BREATH, RASH, rash morphine [MORPHINE] Allergy (Severe, Verified 10/28/24:34) RASH, asthma exacerbation, rash baclofen [BACLOFEN] Allergy (Intermediate, Verified 10/28/24) Rash celecoxib [Celebrex] Allergy (Intermediate, Verified 10/28/24:) itching, rash, flushing prednisone [PREDNISONE] Allergy (Intermediate, Verified 10/28/24:34) RASH, asthma exacerbation, rash codeine Allergy (Unknown, Verified 10/28/24) Rash gluten [GLUTEN] Allergy (Unknown, Verified 10/28/24:34) UNKNOWN oxycodone Allergy (Unknown, Verified 10/28/24:) rash ranitidine Allergy (Unknown, Verified 10/28/24) unknown roflumilast [Daliresp] Allergy (Unknown, Verified 10/28/24:34) rash tramadol [TRAMADOL] Allergy (Unknown, Verified 10/28/24:34) RASH,SHORTNESS OF BREATH AND HEADACHE, asthma exacerbation, rash celery Allergy (Verified 10/28/24:34) Rash cyclobenzaprine [From Flexeril] Allergy (Verified 10/28/24:34) Rash and asthma exacerbation environmental allergies Allergy (Verified 10/28/24:34) Cleaning products cause asthma attack pineapple Allergy (Verified 10/28/24:) Rash strawberry Allergy (Verified 10/28/24:34) Rash sulfamethoxazole [From Bactrim] Adverse Reaction (Intermediate, Verified 10/28/24 11:34) vertigo trimethoprim [From Bactrim] Adverse Reaction (Intermediate, Verified 10/28/24:34) vertigo diazepam [From Valium] Adverse Reaction (Verified 10/28/24 11:34) Cough HPI Comments Details: The patient is a 53-year-old woman with known severe persistent asthma, hypogammaglobulinemia and obstructive sleep apnea. She has had significant is sues with osteopenia and osteoporosis due to chronic steroid use. Currently she is using crutches. She did have surgery to her hip but still having issues with pain. She has been off the Medrol now for some time. She has been taking IVIG for her immunodeficiency with good effect. In in she also continues with respiratory therapy. When she started on Dupixent for her severe asthma she was able to wean off the Medrol. 05/09/2022 the patient is here for a pulmonary follow-up visit. The patient overall has been having increasing dyspnea on exertion. Edji-cl-kysrpxxk severity. She also complains of cough. She did try the Anoro but she could not tolerated. Therefore she stopped it. She continues on the Asmanex. she has not used her short-acting beta agonist. She continues on the Fasenra injections which appeared to be effective for her. The meantime she is having significant foot pain. She is going to have removal hardware from her but next week. I do believe that her worsening dyspnea is likely from deconditioning specially that she has a hard time walking now with her musculoskeletal issues. She did undergo pulmonary function studies in order to have her participate in pulmonary rehabilitation. she appears to have a restrictive ventilatory defect consistent with restrictive lung disease. The patient will benefit from pulmonary rehabilitation at this time. 11/10/2022 the patient is here for a pulmonary follow-up visit. Since we last spoke she had 1 brief exacerbation. She did require course of steroids. She initially call the office and we could not see her and she also call the primary care doctor who could not see her as well. Therefore she was recommended to go to the ED. However she was concerned about potential exposures while in the ED. Therefore she stayed home and she took additional Medrol. Currently she is doing better. She denies any chest congestion. She continues to have some dyspnea on exertion. Fchw-ng-mpwvnttf severity. She continues on her allergy therapy. She is also using the Fasenra injections with good results. She continues on IVIG. 09/14/2023 the patient is here for a pulmonary follow-up visit. The patient overall doing well. Since we last spoke she did require antibiotics and Medrol once or twice. She is feeling better though. She does take care of her grandkids and exposed to viral syndromes. She tries to be careful though. In the meantime I will send her another script for Medrol for to hold just in case her symptoms worsen again. Patient knows that she is to be careful with taking steroid specially since she was on chronic steroids before will try to avoid that. In the meantime she does continue with her IVIG therapy a her inconsistent use with her Fasenra injections. We did review her recent blood work. She is anemic with a hemoglobin of 10.7. She is going to have that recheck again in 3 months. But with all the her all comorbidities anemia can also worsening shortness of breath. In addition to that will have her check a venous blood gas the next time she gets blood work to make sure she is that she is not retaining CO2. When she comes back in 3-4 months will have a her undergo pulmonary function studies to assess the lung capacity in view of her significant scoliosis and underlying obstructive airway disease. 01/25/2024 the patient is here for pulmonary follow-up visit. She is doing well from a respiratory status. She did see the cytogeneticist in her IVIG was stopped because the levels were good. Subsequently after that she started developing a GI bleed and anemia. She was evaluated by GI and she was found to have portal hypertension. Subsequently after that she was diagnosed with cirrhosis. They recommended a liver biopsy although she has not had as of yet. Her liver function still normal. She did undergo pulmonary function studies. They appeared to be normal except for mild restriction likely secondary to her body habitus and also her neuromuscular disease. At this point she has been evaluated for her liver cirrhosis. She appears to be volume overloaded with some pitting edema bilaterally. The patient needs to be diuresed time. To continue to follow-up with GI. She has contemplating a biopsy. Explained to her if the biopsy is going to ptosis reasonable to pursue. She will discuss further with her toy consultant. 07/26/2024 the patient is here for pulmonary follow-up visit. Overall she is doing better. She did have a sick visit last week because of worsening respiratory symptoms after an exposure. She was placed on Medrol and she seems to be doing better. Although she does have productive cough and chest congestion. Will start her on Augmentin as well. She has also has a respiratory medications and she continues with her IVIG. The patient also had gastric banding is unclear why she has portal hypertension. Will go ahead and request an echocardiogram to make sure that she does not have any significant issues with a heart them to be affecting the blood flow and her liver spleen and ultimately varices. She continues with diuretics. The patient also will go for chest x-ray. Will follow-up in 3 months. If she has any worsening symptoms she will call for an earlier assessment. 10/28/2024 the patient is here for a pulmonary follow-up visit. Overall the patient has been doing okay. She does complain of increasing dyspnea on exertion. She feels like it is in part because of her scoliosis that seems to be getting worse. She is leaning to the right side a lot. She also has been dealing with a wound infection. She had surgery of her hand and then got a serious Staph infection required IV antibiotics and ultimately ended up getting a DVT because of the catheter. Now she is on Xarelto. The patient does have a weakened immune system and therefore she is at risk for infections. She needs to try to avoid any kind of surgical procedures her semi invasive procedures that can lead to infections. Having significant back pain. This is affecting her breathing specially with her scoliosis. I did give her an incentive spirometer for her to work on deep breathing exercises. We did look at her back and she does have significant issues with the kyphoscoliosis. I wonder if this a brace that she can use to help her with her issues. I will go ahead and refer her to physiatry in order to assess for noninvasive nonsurgical approaches to her back pain and scoliosis. [facility] Medical History (Updated 10/28/24 @ 20:38 by Saturnino Vanegas MD) Back pain Renal insufficiency Obesity (BMI 30-39.9) Mitochondrial myopathy Diabetes mellitus Portal hypertensive gastropathy Esophageal varices determined by endoscopy Portal hypertension HTN (hypertension) Anemia Chronic restrictive lung disease Brugada syndrome Shortness of breath Encounter for care related to Port-a-Cath Tinea pedis Recurrent cellulitis of lower extremity CHARLES (obstructive sleep apnea) Hypogammaglobulinemia Cellulitis of both lower extremities Right hip pain Lumbar degenerative disc disease Benign essential hypertension Asthma Acquired hypothyroidism Pure hypercholesterolemia Hx of cataract Osteopenia Osteoarthritis of hip Gastritis Surgical History History of revision of total replacement of right hip joint (~12/2019) Hx of hand surgery History of removal of Port-a-Cath History of total right hip arthroplasty (~06/03/19) History of eye surgery (~09/2017) History of hip surgery Hx of foot surgery (~01/02/19) History of removal of cyst Hx of left knee surgery History of elbow surgery (~07/2016) Hx of thumb surgery Hx of appendectomy Hx of hysterectomy (~07/2011) Hx of bilateral breast reduction surgery Family History Father Leukemia Mother Hypertension Diabetes Sister Alive and well Brother Pancreatic cancer Paternal Grandmother Stomach cancer Paternal Grandmother Throat cancer Social History Household Members: Family Housing: Apartment Do you presently have visiting nurse or other home services: No Alcohol intake: never Comment: refused bed alarm Patient Tobacco Use Status: Never used Tobacco e-Cigarette/Vaping Use: Never Used Second Hand Smoke Exposure: No Advance Directives Date on File: 10/02/23 service: No Current occupational status: disabled Current occupation: rt handed Cognitive needs: No Hearing needs: No Vision needs: No Review of Systems Const Denies headache(s) Eyes Denies loss of vision ENT Denies vertigo, Denies dizziness, Denies headache(s) and Denies sore throat Card Denies chest pain, Denies leg edema, Denies lightheadedness and Reports dyspnea on exertion Resp Reports cough, Denies hemoptysis, Reports dyspnea on exertion and Denies wheezing GI Reports as per HPI, Denies abdominal pain, Reports melena, Denies constipation, Denies diarrhea and Denies vomiting Denies urinary frequency, Denies dysuria and Denies urinary urgency Musc Reports myalgias, Reports arthralgias, Reports joint swelling, Denies numbness and Denies tingling Neuro Denies Abnormal speech present, Denies behavioral changes, Denies vertigo, Denies dizziness, Denies headache(s), Denies loss of vision, Denies memory loss, Denies numbness and Denies tingling Psych Denies anxiety, Denies behavioral changes, Denies depression, Denies memory loss and Denies panic attacks Umair/Lymph Denies easy bleeding and Denies easy bruising Aller/Immun Denies wheezing Physical Exam Vital Signs: Last Vital Signs Pulse 86 10/28/24 11:29 BP 164/88 H 10/28/24 11:29 Pulse Ox 99 10/28/24 11:29 Oxygen Delivery Method Room Air 10/28/24 11:29 BMI result Body Mass Index 38.4 Const General: alert HEENT Mouth: tongue abnormal discolored Neck Neck: Yes normal visual inspection, Yes full ROM and Yes no lymphadenopathy Chest Chest palpation & inspection: normal inspection of the chest Resp Effort & Inspection: normal respiratory effort Auscultation: diminished lung sounds Cardio Rate: regular rate Rhythm: regular rhythm Heart sounds: S1 normal heart sound present and S2 normal heart sound present GI Palpation (GI): Soft to palpation and nontender Auscultation: normal bowel sounds Skin General skin exam: rashes and/or lesions noted Neuro Speech: No Abnormal speech present Assessment & Plan Assessment & Plan (1) Asthma: Code(s): J45.909 - Unspecified asthma, uncomplicated Category: Medical Qualifiers: Asthma complication type: uncomplicated Asthma persistence: persistent Asthma severity: moderate Qualified Code(s): J45.40 - Moderate persistent asthma, uncomplicated (2) Hypogammaglobulinemia: Comment: better, off IVIG Code(s): D80.1 - Nonfamilial hypogammaglobulinemia Category: Medical (3) CHARLES (obstructive sleep apnea): Code(s): G47.33 - Obstructive sleep apnea (adult) (pediatric) Category: Medical (4) Chronic restrictive lung disease: Code(s): J98.4 - Other disorders of lung Category: Medical (5) Portal hypertension: Code(s): K76.6 - Portal hypertension Category: Medical (6) Back pain: Code(s): M54.9 - Dorsalgia, unspecified Category: Medical Qualifiers: Back pain location: back pain in unspecified location Chronicity: chronic Back pain laterality: unspecified Qualified Code(s): M54.9 - Dorsalgia, unspecified; G89.29 - Other chronic pain Plan continue Fasenra injections allergy continue singular Asmanex short-acting beta agonist as needed Physiatry referral ?PT or brace for her back. Tends to lean to her right side. follow-up 4 months Orders: Referrals Physiatry Referral M54.9 - Dorsalgia, unspecified Medications: Changed From fluconazole 100 mg PO DAILY 7 days 7 tabs 0RF To fluconazole 100 mg PO DAILY 14 tabs 2RF 14 days Coding Level of Care Code Est Pt Level 4 (94971) Diagnoses Moderate persistent asthma without complication J45.40 Asthma complication type: uncomplicated Asthma persistence: persistent Asthma severity: moderate Hypogammaglobulinemia D80.1 CHARLES (obstructive sleep apnea) G47.33 Chronic restrictive lung disease J98.4 Portal hypertension K76.6 Chronic back pain, unspecified back location, unspecified back pain laterality M54.9; G89.29 Back pain location: back pain in unspecified location Chronicity: chronic Back pain laterality: unspecified Time Spent (min) 18
== END 2024-10-28 12:07 | disposition home or self-care (01) ==
PROVIDERS: PCP Internal Medicine; Visit Provider Hospitalist
DX: J45.40 Moderate persistent asthma, uncomplicated (principal); D80.1 Nonfamilial hypogammaglobulinemia; G47.33 Obstructive sleep apnea (adult) (pediatric); J98.4 Other disorders of lung; K76.6 Portal hypertension; M54.9 Dorsalgia, unspecified; G89.29 Other chronic pain
CPT/HCPCS: 99214

== ENCOUNTER → 2024-10-28 11:25 | Outpatient (BNVA) | payer OTHER, SELFPAY | PROVIDERS: PCP Internal Medicine; Visit Provider Hospitalist | DX: J45.40 Moderate persistent asthma, uncomplicated (principal); J98.4 Other disorders of lung; G47.33 Obstructive sleep apnea (adult) (pediatric); D80.1 Nonfamilial hypogammaglobulinemia; K76.6 Portal hypertension; M54.9 Dorsalgia, unspecified; G89.29 Other chronic pain | CPT/HCPCS: 99212 ==

== ENCOUNTER 2024-11-18 10:50 | Outpatient (AMB) | payer OTHER, SELFPAY ==
[2024-11-18 10:53] VITALS: BP 142/76; PULSE 80; O2SAT 96; BMI 38.2
--- NOTE | 2024-11-18 10:53 | MHC.OFFVIS ---
Vital Signs 11/18/24 10:53 Height 5 ft 4 in Weight 222 lb 10.67 oz BMI 38.2 BP 142/76 H Blood Pressure Location Lt brachial Position Sitting Pulse 80 Pulse Oximetry (%) 96 Intake Visit Reasons: 1 year fu Intake Note: 1 year follow-up pulmonary had her have echo and ekg both ok c/o sob when sob heart races Street Inspector Required: No Allergies cephalexin Allergy (Severe, Verified 10/28/24 11:34) Difficulty Breathing latex [LATEX] Allergy (Severe, Verified 10/28/24 11:34) Difficulty Breathing levofloxacin [From LEVAQUIN] Allergy (Severe, Verified 10/28/24 11:34) SHORTNESS OF BREATH, RASH, rash morphine [MORPHINE] Allergy (Severe, Verified 10/28/24 11:34) RASH, asthma exacerbation, rash baclofen [BACLOFEN] Allergy (Intermediate, Verified 10/28/24 11:34) Rash celecoxib [Celebrex] Allergy (Intermediate, Verified 10/28/24 11:34) itching, rash, flushing prednisone [PREDNISONE] Allergy (Intermediate, Verified 10/28/24 11:34) RASH, asthma exacerbation, rash codeine Allergy (Unknown, Verified 10/28/24 11:34) Rash gluten [GLUTEN] Allergy (Unknown, Verified 10/28/24 11:34) UNKNOWN oxycodone Allergy (Unknown, Verified 10/28/24 11:34) rash ranitidine Allergy (Unknown, Verified 10/28/24 11:34) unknown roflumilast [Daliresp] Allergy (Unknown, Verified 10/28/24 11:34) rash tramadol [TRAMADOL] Allergy (Unknown, Verified 10/28/24 11:34) RASH,SHORTNESS OF BREATH AND HEADACHE, asthma exacerbation, rash celery Allergy (Verified 10/28/24 11:34) Rash cyclobenzaprine [From Flexeril] Allergy (Verified 10/28/24 11:34) Rash and asthma exacerbation environmental allergies Allergy (Verified 10/28/24 11:34) Cleaning products cause asthma attack pineapple Allergy (Verified 10/28/24 11:34) Rash strawberry Allergy (Verified 10/28/24 11:34) Rash sulfamethoxazole [From Bactrim] Adverse Reaction (Intermediate, Verified 10/28/24 11:34) vertigo trimethoprim [From Bactrim] Adverse Reaction (Intermediate, Verified 10/28/24 11:34) vertigo diazepam [From Valium] Adverse Reaction (Verified 10/28/24 11:34) Cough Medication List - Last Reconciled 11/18/24 by Spencer Wright MD atorvastatin 40 mg PO BEDTIME benralizumab (Fasenra) 30 mg subcut Q8W blood pressure monitor As directed blood sugar diagnostic (FreeStyle Lite Strips) As directed- checks 4-5 X/day calcium citrate 250 mg PO BID carvedilol 6.25 mg PO DAILY cholecalciferol (vitamin D3) 100 mcg (2 x 50 mcg (2,000 unit)) PO BEDTIME [DIABETIC SHOES DIABETIC SHOES - 1 PAIR - use as directed -- Dx: E11.9 -- diabetes mellitus] epinephrine 0.3 mg IM Q5M PRN ferrous sulfate (FeroSul) 325 mg PO DAILY fluconazole 100 mg PO DAILY 14 days hydromorphone 2 mg PO TID PRN 7 days insulin aspart (niacinamide) 100 unit/mL (3 mL) (Fiasp FlexTouch U-100 Insulin) 1 sliding scale dose subcut TIDAC insulin degludec (Tresiba FlexTouch U-100 insulin) 8 units subcut DAILY ipratropium bromide 2 sprays intranasal DAILY lancets (FreeStyle Lancets) 5 times a day levalbuterol tartrate 45 mcg/actuation (Xopenex HFA) 2 puffs inhalation Q6H PRN 30 days loratadine 10 mg PO DAILY losartan 25 mg PO BEDTIME 90 days mometasone 200 mcg/actuation (Asmanex HFA) 2 puffs inhalation BID montelukast 10 mg PO BEDTIME 90 days nebulizers As directed nystatin (Nystop) 1 appl topical BID PRN omeprazole 40 mg PO BID ondansetron 8 mg PO Q8H PRN 10 days pen needle, diabetic (BD Laura 2nd Gen Pen Needle) USE TO INJECT FOUR TIMES DAILY DIRECTED pyridostigmine bromide 60 mg PO QID rivaroxaban (Xarelto) 20 mg PO DAILY 90 days Synthroid (levothyroxine) 224 mcg (2 x 112 mcg) PO DAILY NS tiotropium bromide 1.25 mcg/actuation (Spiriva Respimat) 2 puffs inhalation DAILY tizanidine 4 mg (2 x 2 mg) PO BEDTIME PRN 30 days HPI Comments Details: Deysi comes for follow-up. She underwent repeat echocardiogram in August for persistent exertional shortness of breath which was felt by Pulmonary to be out of proportion to her lung issues. This was within normal limits no evidence of pulmonary hypertension with normal LV ejection fraction no significant valvular abnormality. However today she also says that when she climbs a flight of stairs at home she gets the shortness of breath but also gets retrosternal chest pressure. Symptoms of chest pressure last for up to 10 minutes. Then they resolve by themselves. She has history of portal hypertension of unclear etiology, she says she does not have cirrhosis, she was told. She denies any orthopnea, PND, leg edema. She has not been able to lose much weight. EKG from August does show Brugada pattern [facility] Medical History Back pain Renal insufficiency Obesity (BMI 30-39.9) Mitochondrial myopathy Diabetes mellitus Portal hypertensive gastropathy Esophageal varices determined by endoscopy Portal hypertension HTN (hypertension) Anemia Chronic restrictive lung disease Brugada syndrome Shortness of breath Encounter for care related to Port-a-Cath Tinea pedis Recurrent cellulitis of lower extremity CHARLES (obstructive sleep apnea) Hypogammaglobulinemia Cellulitis of both lower extremities Right hip pain Lumbar degenerative disc disease Benign essential hypertension Asthma Acquired hypothyroidism Pure hypercholesterolemia Hx of cataract Osteopenia Osteoarthritis of hip Gastritis Surgical History History of revision of total replacement of right hip joint (~12/2019) Hx of hand surgery History of removal of Port-a-Cath History of total right hip arthroplasty (~06/03/19) History of eye surgery (~09/2017) History of hip surgery Hx of foot surgery (~01/02/19) History of removal of cyst Hx of left knee surgery History of elbow surgery (~07/2016) Hx of thumb surgery Hx of appendectomy Hx of hysterectomy (~07/2011) Hx of bilateral breast reduction surgery Family History Father Leukemia Mother Hypertension Diabetes Sister Alive and well Brother Pancreatic cancer Paternal Grandmother Stomach cancer Paternal Grandmother Throat cancer Social History Household Members: Family Housing: Apartment Do you presently have visiting nurse or other home services: No Alcohol intake: never Comment: refused bed alarm Patient Tobacco Use Status: Never used Tobacco e-Cigarette/Vaping Use: Never Used Second Hand Smoke Exposure: No Advance Directives Date on File: 10/02/23 service: No Current occupational status: disabled Current occupation: rt handed Cognitive needs: No Hearing needs: No Vision needs: No Review of Systems Const Denies chills, Denies fatigue, Denies fever(s), Denies frequent falls, Denies weakness, Denies weight gain and Denies weight loss ENT Denies dizziness Card Denies chest pain, Denies leg edema, Denies lightheadedness, Denies palpitations, Denies dyspnea, Denies dyspnea on exertion, Denies orthopnea and Denies other (loss of consciousness) Resp Denies cough, Denies dyspnea and Denies dyspnea on exertion GI Denies hematochezia and Denies change in stool character Musc Denies abnormal gait, Denies muscle weakness, Denies numbness, Denies radiating pain into limb and Denies tingling Neuro Denies abnormal gait, Denies dizziness, Denies frequent falls, Denies numbness, Denies tingling and Denies weakness Endo Denies fatigue and Denies palpitations Physical Exam Vital Signs: Last Vital Signs Pulse 80 11/18/24 10:53 BP 142/76 H 11/18/24 10:53 Pulse Ox 96 11/18/24 10:53 BMI result Body Mass Index 38.2 Const General: cooperative, no acute distress, alert and awake Nutritional Appearance: obese centrally obese Orientation/consciousness: patient oriented x3 Neck Neck: Yes normal visual inspection and Yes no JVD Resp Effort & Inspection: normal respiratory effort, able to speak in complete sentences and not labored Auscultation: clear to auscultation bilaterally, no crackles, no rales, no rhonchi, no wheezes and diminished lung sounds Cardio Rate: regular rate Rhythm: regular rhythm Heart sounds: S1 normal heart sound present and S2 normal heart sound present Peripheral pulses: Peripheral pulses 2+ throughout GI Inspection: Yes normal to inspection Neuro General: patient oriented x3 Extrem General: Yes normal to inspection and No edema Assessment & Plan Assessment & Plan (1) Exertional chest pain: Code(s): R07.9 - Chest pain, unspecified Category: Medical Plan: Patient today reports exertional chest pain along with shortness of breath. Chest pain could be related to bronchospastic airway disease although coronary artery disease needs to be ruled out given her risk factors hypertension diabetes. Would suggest a coronary CTA to further assess for the same. Management was discussed. Advised to avoid sudden strenuous activity. If she gets any significant resting chest pain she is advised to seek emergency care. Continue aggressive blood pressure management. (2) Abnormal EKG: Code(s): R94.31 - Abnormal electrocardiogram [ECG] [EKG] Category: Medical Plan: Abnormal EKG, suggestive of Brugada pattern type 1 on the EKG. Treat hypermetabolic state such as fever aggressively. Continue beta-min therapy with carvedilol. (3) HTN (hypertension): Code(s): I10 - Essential (primary) hypertension Category: Medical Plan: Hypertension which is well optimized on current therapy with carvedilol as well as losartan therapy. Importance of this was discussed. Goal blood pressure less than 130/84. Low-salt diet was discussed. Continue aggressive diabetes management goal hemoglobin A1c less than 7%. Continue high-intensity statin therapy with target goal LDL less than 70 mg/dL. Will follow up in the clinic in 3 months after coronary CTA. Follow-up with me in 2 years time. Orders: Orders CT Cardiac Coronary Angio 2 Weeks Coding Level of Care Code Est Pt Level 4 (33972) Complex EM visit Add On G2211 Diagnoses Exertional chest pain R07.9 Abnormal EKG R94.31 HTN (hypertension) I10
--- OUTSIDE RECORDS SUMMARY | 2024-11-18 11:53 | XMS_ITS | Clinical Summary ---
Author Organization [facility] it Address [address] [place] [address] Care Team Providers Care Retail Interior Designer Name Role Phone Cassius Strong MD Primary Care Provider Surgical History Surgery Date Site/Laterality Comments HYSTERECTOMY PROCEDURE: HISTORICAL HYSTERECTOMY FOOT SURGERY PROCEDURE: HISTORICAL FOOT SURGERY APPENDECTOMY PROCEDURE: HISTORICAL APPENDECTOMY Medical History Medical History Date Comments Brugada syndrome 08/01/2017 DX:Brugada synd adam Chronic obstructive pulmonar y disease ([facility]) 07/07/2017 DX:Chronic obstructive pulmo nary disease ([facility]) Diabetes mellitus type 2, un complicated ([facility]) 08/17/2017 DX:Diabetes mellitus type 2, uncomplicated ([facility]) GERD (gastroesophageal reflux disease) 08/17/2017 DX:GERD (gastroesophageal reflux disease) History of pancreatitis 11/10/2017 DX:Histo ry of pancreatitis Hyperlipidemia 08/17/2017 DX:Hyperlipidemi a Hypogammaglobulinemia ([facility]) 08/01/2017 DX:Hypogammaglobulinemia ([facility]) Hypothyroidism 08/17/2017 DX:Hypothyroidis m 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[facility]) 08/01/2017 DX:Neuro myopathy ([facility]) Obesity 05/05/2017 DX:Obesity Obstructive sleep apnea syndrome 08/01/2017 DX:Obstructive sleep apnea syndrome; COMMENT: BiPAP Osteoarthritis 08/17/2017 DX:Osteoarthriti s Port-A-Cath in place 11/10/2017 DX:Port-A-C ath in place RA (rheumatoid arthritis) ([facility]) 08/17/2017 DX:RA (rheumatoid arthritis) ([facility]) Severe persistent asthma dep endent on systemic steroids 11/10/2017 DX:Severe persistent asthma dependent on systemic steroids Supplemental oxygen dependent 11/10/2017 DX :Supplemental oxygen dependent Social History Tobacco Use Types Packs/Day Years Used Date Smoking Tobacco: Never Smokeless Tobacco: Never Alcohol Use Standard Drinks/Week Comments No 0 (1 standard drink = 0.6 oz pur e alcohol) Sex and Gender Information Value Date Recorded Sex Assigned at Not on file Gender Identity Not on file Sexual Orientation Not on file Obstetrics History Plan of Treatment Health Maintenance Due Date Last Done Comments Breast Cancer Screening 1969 DTaP,Tdap,and Td Vaccines (1 - Tdap) 1988 Hepatitis B Vaccines (1 of 3 - 19+ 3-dose series) 1988 Cervical Cancer Screening: P ap Smear 1990 Zoster Vaccines (1 of 2) 2019 COVID-19 Vaccine (2023-2 5 season) 2024 Influenza Vaccine (#1) 2024 HIB Vaccines Aged Out No longer eligi ble based on patient's age to complete this topic HPV Vaccines Aged Out No longer eligi ble based on patient's age to complete this topic Hepatitis A Vaccines Aged Out No long er eligible based on patient's age to complete this topic IPV Vaccines Aged Out No longer eligi ble based on patient's age to complete this topic MMR Vaccines Aged Out No longer eligi ble based on patient's age to complete this topic Meningococcal ACWY Vaccine Aged Out N o longer eligible based on patient's age to complete this topic Pneumococcal Vaccine: Pediat rics (0 to 5 Years) and At-Risk Patients (6 to 64 Years) Aged Out No longer eligible b ased on patient's age to complete this topic RSV Immunization Patients Un macy 20 months Aged Out No longer eligible b ased on patient's age to complete this topic Varicella Vaccines Aged Out No longer eligible based on patient's age to complete this topic Care Teams Retail Interior Designer Relationship Specialty Start Date End Date Cassius Strong MD [address] [place] [address] [address] [place] PCP - General 04/15/11
== END 2024-11-18 11:29 | disposition home or self-care (01) ==
PROVIDERS: PCP Internal Medicine; Visit Provider Internal Medicine Cardiovascular Disease
DX: R07.9 Chest pain, unspecified (principal); R94.31 Abnormal electrocardiogram [ECG] [EKG]; I10 Essential (primary) hypertension
CPT/HCPCS: 99214; G2211

== ENCOUNTER → 2024-11-18 10:50 | Outpatient (BNVA) | payer OTHER, SELFPAY | PROVIDERS: PCP Internal Medicine; Visit Provider Internal Medicine Cardiovascular Disease | DX: I10 Essential (primary) hypertension (principal); R07.9 Chest pain, unspecified; R94.31 Abnormal electrocardiogram [ECG] [EKG] | CPT/HCPCS: 99212 ==

== ENCOUNTER 2024-11-26 13:55 | Outpatient (AMB) | payer OTHER, SELFPAY ==
[2024-11-26 14:07] VITALS: BMI 38.1
--- NOTE | 2024-11-26 14:07 | MHC.OFFVIS ---
Vital Signs 11/26/24 14:07 Height 5 ft 4 in Weight 222 lb BMI 38.1 Intake Visit Reasons: O/V LT IF 08/19/24 ar Intake Note: Deysi is a 53 year old right hand dominant female who presents today for a follow up visit for her wound check s/p irrigation and debridement of the left index finger done 08/19/[address] Singer. She is here to check the final AFB culture results. States she is not able to bend her finger and has notice she has a small lump again. She isn't sure if this is swelling or a re- growth. Allergies cephalexin Allergy (Severe, Verified 11/26/24 14:15) Difficulty Breathing latex [LATEX] Allergy (Severe, Verified 11/26/24 14:15) Difficulty Breathing levofloxacin [From LEVAQUIN] Allergy (Severe, Verified 11/26/24 14:15) SHORTNESS OF BREATH, RASH, rash morphine [MORPHINE] Allergy (Severe, Verified 11/26/24 14:15) RASH, asthma exacerbation, rash baclofen [BACLOFEN] Allergy (Intermediate, Verified 11/26/24 14:15) Rash celecoxib [Celebrex] Allergy (Intermediate, Verified 11/26/24 14:15) itching, rash, flushing prednisone [PREDNISONE] Allergy (Intermediate, Verified 11/26/24 14:15) RASH, asthma exacerbation, rash codeine Allergy (Unknown, Verified 11/26/24 14:15) Rash gluten [GLUTEN] Allergy (Unknown, Verified 11/26/24 14:15) UNKNOWN oxycodone Allergy (Unknown, Verified 11/26/24 14:15) rash ranitidine Allergy (Unknown, Verified 11/26/24 14:15) unknown roflumilast [Daliresp] Allergy (Unknown, Verified 11/26/24 14:15) rash tramadol [TRAMADOL] Allergy (Unknown, Verified 11/26/24 14:15) RASH,SHORTNESS OF BREATH AND HEADACHE, asthma exacerbation, rash celery Allergy (Verified 11/26/24 14:15) Rash cyclobenzaprine [From Flexeril] Allergy (Verified 11/26/24 14:15) Rash and asthma exacerbation environmental allergies Allergy (Verified 11/26/24 14:15) Cleaning products cause asthma attack pineapple Allergy (Verified 11/26/24 14:15) Rash strawberry Allergy (Verified 11/26/24 14:15) Rash sulfamethoxazole [From Bactrim] Adverse Reaction (Intermediate, Verified 11/26/24 14:15) vertigo trimethoprim [From Bactrim] Adverse Reaction (Intermediate, Verified 11/26/24 14:15) vertigo diazepam [From Valium] Adverse Reaction (Verified 11/26/24 14:15) Cough HPI HPI O/V LT IF 08/19/24 ar: Details: Deysi is a 53 year old right hand dominant woman who returns for a ROM and culture check, S/P I&D of her left index finger, DOS: 08/19/24. She is concerned about a possible recurrence of infection, as she has noticed a new fullness and swelling in the same area of her index finger prior to surgery. She says she is still not able to bend her index finger. She has not been able to bend her finger for ~[address] Napier, of Infectious Disease, managed her acute purulent infection with a brief course of IV antibiotics and some oral antibiotics. She notes that she has all finished with her antibiotics. She says there was a scheduling issue and her appointment with [facility] was cancelled because it wasn't confirmed. *Please see my previous notes from 09/11/24 & 10/15/24 for more information.* [facility] Medical History Back pain Renal insufficiency Obesity (BMI 30-39.9) Mitochondrial myopathy Diabetes mellitus Portal hypertensive gastropathy Esophageal varices determined by endoscopy Portal hypertension HTN (hypertension) Anemia Chronic restrictive lung disease Brugada syndrome Shortness of breath Encounter for care related to Port-a-Cath Tinea pedis Recurrent cellulitis of lower extremity CHARLES (obstructive sleep apnea) Hypogammaglobulinemia Cellulitis of both lower extremities Right hip pain Lumbar degenerative disc disease Benign essential hypertension Asthma Acquired hypothyroidism Pure hypercholesterolemia Hx of cataract Osteopenia Osteoarthritis of hip Gastritis Surgical History History of revision of total replacement of right hip joint (~12/2019) Hx of hand surgery History of removal of Port-a-Cath History of total right hip arthroplasty (~06/03/19) History of eye surgery (~09/2017) History of hip surgery Hx of foot surgery (~01/02/19) History of removal of cyst Hx of left knee surgery History of elbow surgery (~07/2016) Hx of thumb surgery Hx of appendectomy Hx of hysterectomy (~07/2011) Hx of bilateral breast reduction surgery Family History Father Leukemia Mother Hypertension Diabetes Sister Alive and well Brother Pancreatic cancer Paternal Grandmother Stomach cancer Paternal Grandmother Throat cancer Social History Household Members: Family Housing: Apartment Do you presently have visiting nurse or other home services: No Alcohol intake: never Comment: refused bed alarm Patient Tobacco Use Status: Never used Tobacco e-Cigarette/Vaping Use: Never Used Second Hand Smoke Exposure: No Advance Directives Date on File: 10/02/23 service: No Current occupational status: disabled Current occupation: rt handed Cognitive needs: No Hearing needs: No Vision needs: No Review of Systems Const All systems reviewed & are unremarkable except as noted in HPI and below Physical Exam Vital Signs: BMI result Body Mass Index 38.1 Const General: no acute distress and alert Orientation/consciousness: patient oriented x3 Neuro General: patient oriented x3 Extrem Other: Patient was alert oriented and in no acute distress. All wounds and incisions are now well healed. There is no longer any erythema warmth or drainage. When I ask her to make a fist she can do so easily with all of the digits except for the index finger. She now flexes the index finger MCP joint fully to about 90 degrees. At the PIP joint of the index finger today she was able to demonstrate ~25-30 degrees of flexion. While she likely has adhesions within the index finger flexor tendon sheath, even the small amount of improvement in PIP flexion is noteworthy. She can passively bring her index finger down to a closed fist, with some tightness in the dorsal aspect of her finger Full active ROM of her thumb, middle, ring, and small fingers Decreased sensation only to the ulnar digital nerve distribution of the index finger. Normal sensation in the radial digital nerve distribution, and to all other digits The finger and the palm of her hand are completely nontender. She notes that she no longer has any pain in her hand. We are seeing increasing fullness again extending from the volar aspect of the index finger across the A1 temitope and into the palmar aspect of the flexor tendon sheath, across the mid-palmar crease. This was initially flattened after her I&D procedure, but has become more full in the last month, worrisome for new growth of this material. Summary results: Histopathology from 08/19/2024: This is from the tissue removed from the flexor tendon sheath to the index finger Pathologist: Adilene Cazares MD Diagnosis Soft tissue, left index finger, excision: Dense fibrovascular tissue with acute and chronic inflammation and necrosis; negative for malignancy. Comment: Please correlate with microbiology studies Cultures: Gram stain Final 08/19/24-1538 Gram stain results: 1+ polys 4+ red blood cells No organisms seen Routine Culture Final 08/22/24-809 Organism 1 Staphylococcus aureus Quantity 1+ S aureus M.I.C. RX --------- --- Clindamycin <=0.25 R Erythromycin >=8 R Levofloxacin <=0.12 S Oxacillin <=0.25 S Penicillin-G >=0.5 R Tetracycline <=1 S Trimethoprim/Sulfamethoxazole <=10 S Anaerobic Culture Final 08/24/24-1050 Report No anaerobes isolated. AFB CULTURE RESULTS Acid-Fast Smear Final 08/27/24-1011 Acid-Fast Smear No acid-fast bacilli seen. Acid-Fast Culture Final 10/21/24-0940 Mycobacterium species not found after 60 days incubation. Psych Appearance: grossly normal Affect: normal affect Attitude: cooperative Assessment & Plan Assessment & Plan (1) Tenosynovitis of finger: Comment: She has finger swelling still,doesnt look much better. Code(s): M65.949 - Unspecified synovitis and tenosynovitis, unspecified hand Category: Medical (2) Abscess of left index finger: Comment: She had been on Eliquis for arm clot Code(s): L02.512 - Cutaneous abscess of left hand Category: Medical Plan Assessment and plan: 1. Left index finger acute purulent infection, S/P I&D 2. Left index finger acute purulent flexor tenosynovitis, S/P flexor tenosynovectomy of FDP and FDS tendons These symptoms began about a week before presentation to [facility] I believe her acute purulent infection has completely resolved. 3. Left index finger chronic flexor tenosynovitis, S/P I&D Actual tissue specimens removed from the patient were sent for cultures and histopathology. AFB smear & final AFB cultures were both negative DOS: 08/19/24 4. Left index finger very limited active flexion, secondary to infection and mass effect within flexor tendon sheath ~12 months. I educated her about these issues She appears to have a chronic infection involving the index finger flexor tendon sheath extending into the palm, worrisome for mycobacterial infection, though AFB cultures have come back negative At some point she might benefit from another flexor tenosynovectomy and lysis of adhesions to try to improve active index finger flexion. The mass effect caused by this presumed chronic infection is again increasing. Unfortunately, no organism that would explain this was identified on cultures following our procedure. We are referring her to [facility] for further diagnostic evaluation and treatment. I spoke with Carol, a nurse in the clinic, to work on a referral to [facility], or possibly [facility], for a diagnostic evaluation. I am happy to talk with the receiving hand surgeon about our findings if it would be helpful. She was amenable to this plan. Please note that greater than 45 minutes was spent with this patient going over the history, evaluating the patient and radiographs, formulating possible treatment options, discussing them with the patient, and documenting the visit. Scribed for Nisha Singer MD by Niels Blum, medical laboratory scientist, on 11/26/24 at 2:15 PM, EST. Coding Level of Care Code Est Pt Level 5 (52712) Diagnoses Tenosynovitis of finger M65.949 Abscess of left index finger L02.512
--- OUTSIDE RECORDS SUMMARY | 2024-11-26 14:57 | XMS_ITS ---
Author Organization [facility] Address Unknown Problems Problem Status Start Date End Date DISLOCATION OF INTERNAL RIGH T HIP PROSTHESIS, SUBSEQUENT ENCOUNTER (Primary) (T84.020D - ICD-10-CM) ACTIVE 09/24/2019 IDIOPATHIC ASEPTIC NECROSIS OF UNSPECIFIED FEMUR (M87.059 - ICD-10-CM) ACTIVE 09/24/2019 SPLITTER HEAD (CURRENT) USE OF INSULIN (Z79.4 - ICD-10-CM) ACTIVE 09/24/2019 DEPENDENCE ON SUPPLEMENTAL OXYGEN (Z99.81 - ICD-10-CM) ACTIVE 09/24/2019 ANEMIA, UNSPECIFIED (D64.9 - ICD-10-CM) ACTIVE 1 11/25/2018 PRIMARY GENERALIZED (OSTEO)ARTHRITIS (M15.0 - ICD-10-C M) ACTIVE 09/24/2019 MILD INTERMITTENT ASTHMA, UN COMPLICATED (J45.20 - ICD-10-CM) ACTIVE 09/24/2019 REPEATED FALLS (R29.6 - ICD-10-CM) ACTIVE 2018 GASTRO-ESOPHAGEAL REFLUX DIS EASE WITHOUT ESOPHAGITIS (K21.9 - ICD-10-CM) ACTIVE 09/24/2019 HYPERTENSIVE HEART DISEASE W ITHOUT HEART FAILURE (I11.9 - ICD-10-CM) ACTIVE 09/24/2019 HYPOTHYROIDISM, UNSPECIFIED (E03.9 - ICD-10-CM) ACTIVE 09/24/2019 OBSTRUCTIVE SLEEP APNEA (KILLIAN LT) (PEDIATRIC) (G47.33 - ICD-10-CM) ACTIVE 09/24/2019 MYASTHENIA GRAVIS WITHOUT (A CUTE) EXACERBATION (G70.00 - ICD-10-CM) ACTIVE 09/24/2019 OTHER CHRONIC PANCREATITIS (K86.1 - ICD-10-CM) ACTIVE 09/24/2019 SCIATICA, RIGHT SIDE (M54.31 - ICD-10-CM) ACTIVE 09/24/2019 POLYCYSTIC OVARIAN SYNDROME (E28.2 - ICD-10-CM) ACTIVE 09/24/2019 TYPE 2 DIABETES MELLITUS WIT HOUT COMPLICATIONS (E11.9 - ICD-10-CM) ACTIVE 09/24/2019 OTHER SPECIFIED DISORDERS OF THE SKIN AND SUBCUTANEOUS TISSUE (L98.8 - ICD-10-CM) ACTIVE 09/24/2019 MUSCLE WEAKNESS (GENERALIZED) (M62.81 - ICD-10-CM) ACT CUAUHTEMOC 09/24/2019 NON-CELIAC GLUTEN SENSITIVITY (K90.41 - ICD-10-CM) ACT CUAUHTEMOC 09/24/2019 UNSTEADINESS ON FEET (R26.81 - ICD-10-CM) ACTIVE 09/24/2019 Encounters Encounter Performer Performer Role Encounter Diagnoses Location Date Discharge [facility] 04/22/2015 08:00 pm EDT - 04/28/2015 12:30 pm EDT Discharge [facility] 09/24/2019 02:28 pm EST - 10/03/2019 07:23 pm EST Social History
--- OUTSIDE RECORDS SUMMARY | 2024-11-26 14:57 | XMS_ITS | Clinical Summary ---
Author Organization 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 DX:Brugada synd adam Chronic obstructive pulmonar y disease ([facility]) 07/07/2017 DX:Chronic obstructive pulmo nary disease ([facility]) Diabetes mellitus type 2, un complicated ([facility]) 08/17/2017 DX:Diabetes mellitus type 2, uncomplicated ([facility]) GERD (gastroesophageal reflux disease) 08/17/2017 DX:GERD (gastroesophageal reflux disease) History of pancreatitis 11/10/2017 DX:Histo ry of pancreatitis Hyperlipidemia 08/17/2017 DX:Hyperlipidemi a Hypogammaglobulinemia ([facility]) 08/01/2017 DX:Hypogammaglobulinemia ([facility]) Hypothyroidism 08/17/2017 DX:Hypothyroidis m 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 DX:Neuro myopathy ([facility]) Obesity 05/05/2017 DX:Obesity Obstructive sleep apnea syndrome 08/01/2017 DX:Obstructive sleep apnea syndrome; COMMENT: BiPAP Osteoarthritis 08/17/2017 DX:Osteoarthriti s Port-A-Cath in place 11/10/2017 DX:Port-A-C ath in place RA (rheumatoid arthritis) ([facility]) 08/17/2017 DX:RA (rheumatoid arthritis) ([facility]) Severe persistent asthma dep endent on systemic steroids 11/10/2017 DX:Severe persistent asthma dependent on systemic steroids Supplemental oxygen dependent 11/10/2017 DX :Supplemental oxygen dependent Social History Tobacco Use Types Packs/Day Years Used Date Smoking Tobacco: Never Smokeless Tobacco: Never Alcohol Use Standard Drinks/Week Comments No 0 (1 standard drink = 0.6 oz pur e alcohol) Comments Unknown Sex and Gender Information Value Date Recorded Sex Assigned at Not on file Legal Sex Female 6:14 AM EST Gender Identity Not on file Sexual Orientation Not on file Obstetrics History Plan of Treatment Health Maintenance Due Date Last Done Comments Breast Cancer Screening 1969 DTaP,Tdap,and Td Vaccines (1 - Tdap) 1988 Hepatitis B Vaccines (1 of 3 - 19+ 3-dose series) 1988 Cervical Cancer Screening: P ap Smear 1990 Zoster Vaccines (1 of 2) 2019 COVID-19 Vaccine ( - 2023-2 5 season) 2024 Influenza Vaccine (#1) 2024 [...] age to complete this topic Care Teams Corporate Physical Security Supervisor Relationship Specialty Start Date End Date Cassius Strong MD [address] [place] [address] Dr [address] CONSTANCE Alvarez PCP - General 04/15/11
--- OUTSIDE RECORDS SUMMARY | 2024-11-26 14:57 | XMS_ITS | Patient Health Record ---
Author Organization [facility] Address [address] [place] [address] Care Team Providers Care Ride Assembly Supervisor Name Role Phone Cassius Strong Primary Care Provider Colin Mercado Unavailable [phone] ALLERGIES Allergen (clinical drug ingredient) Drug/Non Drug Allergy documented on EMR Reaction Allergy Type Onset Date Status Apples/Person/Leda ts/Pineapple/Strawb erry/Onion (uncoded) Unknown Allergy Active Gluten Gluten intolerance (uncoded) Unknown Allergy Active Latex Latex (uncoded) shortness of breath Allergy Active Codeine Phosphate rash Drug Allergy Active Flexeril rash Drug Allergy Active Levaquin rash Drug Allergy Active morphine Morphine Sulfate rash Drug Allergy Active Vicodin rash Drug Allergy Active PredniSONE rash Drug Allergy Active REASON FOR REFERRAL No Information MEDICATIONS Medication SIG (Take, Route, Frequency, Duration) Notes Start Date End Date Status Brovana 15 MCG/2ML 2 ml Inhalation Twic e a day Active Valsartan 40 MG 1 tablet Orally Twic e a day Active Budesonide 2 ml Inhalation Once a day Active EpiPen (2-Jarrett) 0.3MG/0.3ML Inject in out er thigh IM prn Active Ipratropium [place] 0.02 % Inhalation Active Medrol 16 MG 1 tablet with food o r milk Orally BID Active Mestinon 60 MG 1 tablet Orally ever y 4 hrs Active Spiriva Respimat 2.5 MCG/ACT 2 puffs Inhalation Once a day Active HumaLOG 100 UNIT/ML Subcutaneous Active Claritin 10 MG 1 tablet Orally Once a day Active Klor-Con 20 MEQ 1 packet with food O rally Once a day Active Ventolin HFA 108 (90 Base) MCG/ACT 2 puffs as needed Inhalation every 4 hrs Active Vitamin D 2000 UNIT 2 tablets Orally Onc e a day Active Omeprazole 20 MG 1 capsule Orally Twi ce a day Active Atorvastatin Calcium 20 MG 1 tablet Orally Once a day Active DuoNeb Active Singulair 10 MG 1 tablet in the even ing Orally Once a day Active SOCIAL HISTORY Sex Assigned At : Social History Observation Description Sex Assigned At Unknown PROBLEMS Problem Type ICD Code Onset Dates Problem Status W/U Status Risk SNOMED Code Notes Problem Food allergy (Z91.018) Active confirmed [id number] Problem 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) Active confirmed 722781267 Problem Osteopenia (M85.80) Active confirmed 023222645 Problem Severe persistent asthma, uncomplicated (J45.50) Active confirmed 782359408 Problem Pancreatitis (K85.9) Active confirmed 09756084 Problem Steroid-dependent asthma (J45.909) Active confirmed [id number] Problem Insulin dependent diabetes mellitus with complications (E11.8) Active confirmed 81468460 Problem Myasthenia gravis (G70.00) Active confirmed [id number] PLAN OF TREATMENT No Information Insurance Providers Payer Name Payer Address Payer Phone Subscriber Number Group Number Insured Name Patient Relationship to Insured Coverage Start Date Coverage End Date Medicare/[facility] [employer] [address] [place] [phone] [id number] Kala Deysi Self - patient is the insured Medicaid [address] [place] [address] [phone] [id number] Kala Deysi Self - patient is the insured MEDICAL (GENERAL) HISTORY Medical History History ICD Code Asthma - Steroid dependent o n medrol with difficulty tapering below 12 mg bid Osteopenia Myathenia Gravis Hyperglycemia Hypercholesterolemia Sleep apnea Pancreatitis Surgical History Surgery Date(Month/Year) ACL repair 09/2014 Breast reduction 04/2015 Elbow repair 11/2015 Hospitalization History Reason Date(Month/Year) Portacath insertion for IVIG
--- OUTSIDE RECORDS SUMMARY | 2024-11-26 14:57 | XMS_ITS ---
Author Organization [facility] Address Unknown Allergies, Adverse Reactions, Alerts Substance Reaction Status Noted Date Resolved Date Tramadol active 12/09/2019 Tomato resolved 12/09/2019 12/19/2019 Theophylline active 12/09/2019 Strawberries active 12/09/2019 Prednisone active 12/09/2019 Pineapple active 12/09/2019 [place] Juice active 12/09/2019 Morphine active 12/09/2019 Levofloxacin active 12/09/2019 Latex active 12/09/2019 Lactose active 12/09/2019 Hydrocodone active 12/09/2019 Gluten active 12/09/2019 Cyclobenzaprine active 12/09/2019 Codeine active 12/09/2019 Carrot active 12/09/2019 Apple active 12/09/2019 Problems Problem Status Start Date End Date ENCOUNTER FOR OTHER ORTHOPED IC AFTERCARE (Primary) (Z47.89 - ICD-10-CM) ACTIVE 12/21/2019 DISLOCATION OF INTERNAL RIGH T HIP PROSTHESIS, SUBSEQUENT ENCOUNTER (T84.020D - ICD-10-CM) ACTIVE 12/03/2019 TYPE 2 DIABETES MELLITUS WIT HOUT COMPLICATIONS (E11.9 - ICD-10-CM) ACTIVE 12/09/2019 MILD INTERMITTENT ASTHMA, UN COMPLICATED (J45.20 - ICD-10-CM) ACTIVE 12/09/2019 OTHER CHRONIC PANCREATITIS (K86.1 - ICD-10-CM) ACTIVE 12/09/2019 MUSCLE WEAKNESS (GENERALIZED) (M62.81 - ICD-10-CM) ACT CUAUHTEMOC 12/10/2019 MYASTHENIA GRAVIS WITHOUT (A CUTE) EXACERBATION (G70.00 - ICD-10-CM) ACTIVE 12/09/2019 UNSTEADINESS ON FEET (R26.81 - ICD-10-CM) ACTIVE 12/21/2019 PRESENCE OF RIGHT ARTIFICIAL HIP JOINT (Z96.641 - ICD-10-CM) ACTIVE 12/21/2019 HYPERTENSIVE HEART DISEASE W ITHOUT HEART FAILURE (I11.9 - ICD-10-CM) ACTIVE 12/09/2019 OTHER ABNORMALITIES OF GAIT AND MOBILITY (R26.89 - ICD-10-CM) ACTIVE 12/09/2019 GASTRO-ESOPHAGEAL REFLUX DIS EASE WITHOUT ESOPHAGITIS (K21.9 - ICD-10-CM) ACTIVE 12/09/2019 ANEMIA, UNSPECIFIED (D64.9 - ICD-10-CM) ACTIVE 0 12/09/2019 POLYCYSTIC OVARIAN SYNDROME (E28.2 - ICD-10-CM) ACTIVE 12/09/2019 OBSTRUCTIVE SLEEP APNEA (KILLIAN LT) (PEDIATRIC) (G47.33 - ICD-10-CM) ACTIVE 12/09/2019 PRIMARY GENERALIZED (OSTEO)ARTHRITIS (M15.0 - ICD-10-C M) ACTIVE 12/09/2019 HYPOTHYROIDISM, UNSPECIFIED (E03.9 - ICD-10-CM) ACTIVE 12/09/2019 SCIATICA, RIGHT SIDE (M54.31 - ICD-10-CM) ACTIVE 12/09/2019 REPEATED FALLS (R29.6 - ICD-10-CM) ACTIVE 2019 Results * VENOUS DOPPLER EXTREM/CROSS Performed by: BIXI Component Value Range Date VENOUS DOPPLER EXTREM/CROSS VENOUS DOPPLER EXTREM/LIMVENOUS DOPPLER EXTREM/CROSS, RIGHTResults: There is no evidence for deep venous thrombosis in the right common femoral,deep femoral, femoral, popliteal and calf veins. The left common femoral vein ispatent. The subcutaneous soft tissues are unremarkable.Conclusion: No evidence for deep venous thrombosis in the visualized veins of theright lower extremity.Electronically signed by GUMARO DE LA CRUZ M.D. 12/24/2019 3:42:02 PM EDT.Reason for Study: R22.9 LOCALIZED SWELLING, MASS AND LUMP, UNSPECIFIEDPrincipal Result Oncology Rep Specialist: GUMARO DE LA CRUZ ([id number])Salary And Wage Administrator: DARNELL MENENDEZ (NMOLDOVAN)Boy'S Adviser Salary And Wage Administrator: RAS 12/24/2019 03:42 pm EDT * XRAY CHEST 2 VIEW Performed by: [facility] Component Value Range Date XRAY CHEST 2 VIEW XRAY CHEST 2 VIEWXRA Y CHEST 2 VIEWResults: Chest 2 viewThe linear density left base indicating some focal atelectasis or linear scarring.Elsewhere the lungs are clear. The heart is mildly enlarged. Both mirza have normalappearance.Left IJ catheterConclusion: Left base linear scarring or focal atelectasis. Lungs otherwise clear.Slight cardiomegaly.Electronically signed by JESSICA POSEY M.D. 12/24/2019 10:55:29 AM EDT.Reason for Study: R07.1 CHEST PAIN ON BREATHINGPrincipal Result Oncology Rep Specialist: JESSICA POSEY ([id number])Salary And Wage Administrator: ROSARIO FELIX (DSEXTON)Boy'S Adviser Salary And Wage Administrator: RAS 12/24/2019 10:55 am EDT Encounters Encounter Performer Performer Role Encounter Diagnoses Location Date Leave - z. [facility] 0 12:00 am EST - 0 09:40 am EST Discharge - Discharged to home or self care - HOME - Home [facility] 0 05:08 pm EST - 0 03:13 pm EDT Reason For Referral Planned Ortho Surgery Immunizations Vaccine Date Pneumococcal Influenza-Standard Dose(Afluria) 019 12:00 am EDT Social History
== END 2024-11-26 15:11 | disposition home or self-care (01) ==
PROVIDERS: PCP Internal Medicine; Visit Provider Orthopaedic Surgery
DX: M65.942 Unspecified synovitis and tenosynovitis, left hand (principal); L02.512 Cutaneous abscess of left hand
CPT/HCPCS: 99215

== ENCOUNTER → 2024-11-26 13:55 | Outpatient (BNVA) | payer OTHER, SELFPAY | PROVIDERS: PCP Internal Medicine; Visit Provider Orthopaedic Surgery | DX: M65.949 Unspecified synovitis and tenosynovitis, unspecified hand (principal); L02.512 Cutaneous abscess of left hand | CPT/HCPCS: 99212 ==

== ENCOUNTER 2024-12-04 10:30 | Outpatient (REF) | payer OTHER, SELFPAY ==
--- NOTE | ~2024-12-04 | MR_ITS ---
EXAMINATION: MR ABDOMEN WITHOUT AND WITH CONTRAST CLINICAL INFORMATION: Cyst of the pancreas. COMPARISON: Correlated to CT dated August 19, 2024 which demonstrated a 1.3 cm cystic lesion in the tail of the pancreas. TECHNIQUE: MR abdomen was performed without and with use of 10.0 mL intravenous Gadavist gadolinium based contrast. Postcontrast images are performed in multiphase dynamic sequences. Imaging was performed in 3 planes. No reported immediate complications FINDINGS: LUNG BASES: No enhancing lesions in the included lung bases. LIVER, GALLBLADDER, AND BILIARY TREE: Liver measures 15 cm. No focal enhancing mass. Portal vein, hepatic veins and intrahepatic portion of the IVC are patent. No intrahepatic biliary ductal dilatation. No pericholecystic fluid collection or gallbladder wall thickening. Common bile duct measures 3 mm. PANCREAS: There are multiple scattered, different size nonenhancing fluid signal characteristic lesions throughout the parenchyma involving body and tail and to a lesser extent head of the pancreas. The largest with thin septations in the tail of the pancreas which measures 12 mm in maximum dimension. No main pancreatic ductal dilatation. No peripancreatic fluid collections. SPLEEN: 12 cm. No focal lesion. ADRENAL GLANDS: No nodular lesion. KIDNEYS AND URETERS: Normal enhancement pattern in the renal parenchyma. No focal renal mass. Subcentimeter cysts in the corticomedullary junction of the left kidney. No hydronephrosis in either kidney. GASTROINTESTINAL TRACT: Abundant stool. No intestinal obstruction pattern. No ascites. ABDOMINAL WALL: Small fat-containing umbilical hernia. LYMPH NODES: No mesenteric or retroperitoneal lymphadenopathy. VASCULAR: No aneurysm or dissection, abdominal aorta. OSSEOUS STRUCTURES: There is a levoconvex rotoscoliosis apex at L3-4 and dextroconvex rotoscoliosis apex at L1. There is an incomplete ankylosis at L3-4 and L2-3 levels. There is fatty atrophy of the right psoas iliac muscle likely denervation. MR/MR abdomen wo/w con IMPRESSION: Multiple, nonenhancing cystic lesions in the pancreas the largest in the tail of the pancreas. Continuous surveillance. Splenomegaly, mild. Small subcentimeter cyst, left kidney. Severe scoliosis, lumbar spine and fatty atrophy right psoas iliac muscle secondary to denervation. Electronically signed by: Marcos Tatum MD 12/05/2024 01:35 PM [facility]
--- OUTSIDE RECORDS SUMMARY | 2024-12-04 11:15 | XMS_ITS | Clinical Summary ---
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 DX:Brugada synd adam Chronic obstructive pulmonar y disease ([facility] 07/07/2017 DX:Chronic obstructive pulmo nary disease ([facility]) Diabetes mellitus type 2, un complicated ([facility]) 08/17/2017 DX:Diabetes mellitus type 2, uncomplicated ([facility]) GERD (gastroesophageal reflux disease) 08/17/2017 DX:GERD (gastroesophageal reflux disease) History of pancreatitis 11/10/2017 DX:Histo ry of pancreatitis Hyperlipidemia 08/17/2017 DX:Hyperlipidemi a Hypogammaglobulinemia ([facility]) 08/01/2017 DX:Hypogammaglobulinemia ([facility]) Hypothyroidism 08/17/2017 DX:Hypothyroidis m 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/2017 DX:Neuro myopathy ([facility]) Obesity 05/05/2017 DX:Obesity Obstructive sleep apnea syndrome 08/01/2017 DX:Obstructive sleep apnea syndrome; COMMENT: BiPAP Osteoarthritis 08/17/2017 DX:Osteoarthriti s Port-A-Cath in place 11/10/2017 DX:Port-A-C ath in place RA (rheumatoid arthritis) ([facility]) 08/17/2017 DX:RA (rheumatoid arthritis) ([facility]) Severe persistent asthma dep endent on systemic [...] Cervical Cancer Screening: P ap Smear 1990 Pneumococcal Vaccine: 50+ Ye ars (1 of 1 - PCV) 2019 Zoster Vaccines (1 of 2) 2019 COVID-19 Vaccine (1 - 2023-2 5 season) 2024 Influenza Vaccine [...] patient's age to complete this topic Meningococcal B Vacine Aged Out No lo nger eligible based on patient's age to complete [...] age to complete this topic Care Teams Completions Manager Relationship Specialty Start Date End Date Cassius Strong MD [address] [place] [address] Dr [address] CONSTANCE Alvarez PCP - General 04/15/11
--- OUTSIDE RECORDS SUMMARY | 2024-12-04 11:15 | XMS_ITS | Patient Health Record ---
Author Organization [facility] Address [address] [place] [address] Care Team Providers Care Cheerleading Coach Name Role Phone Cassius Strong Primary Care Provider Colin Mercado Unavailable [phone] ALLERGIES Allergen (clinical drug ingredient) Drug/Non Drug Allergy documented on EMR Reaction Allergy Type Onset Date Status Apples/Worth/Leda ts/Pineapple/Strawb erry/Onion (uncoded) Unknown Allergy Active Gluten [...] out er thigh IM prn Active Ipratropium [place] 0.02 % Inhalation Active Medrol 16 MG [...] Notes Problem Food allergy (Z91.018) Active confirmed 916229905 Problem 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) Active confirmed 992919727 Problem Osteopenia (M85.80) Active confirmed 949347145 Problem Severe persistent asthma, uncomplicated (J45.50) Active confirmed 446244661 Problem Pancreatitis (K85.9) Active confirmed 14399530 Problem Steroid-dependent asthma (J45.909) Active confirmed [id number] Problem Insulin dependent diabetes mellitus with complications (E11.8) Active confirmed 78394505 Problem Myasthenia gravis (G70.00) Active confirmed 79215273 PLAN OF TREATMENT No Information Insurance Providers Payer Name Payer Address Payer Phone Subscriber Number Group Number Insured Name Patient Relationship to Insured Coverage Start Date Coverage End Date Medicare/[facility] [employer] [address] [place] [phone] [id number] Kala Deysi Self - patient is the insured Medicaid [id number] [place] [phone] [id number] Kala Deysi Self - patient is the [...]
[2024-12-04] MEDS: gadobutroL 10 ML VIAL IVPUSH (12:20)
== END 2024-12-04 10:31 | disposition home or self-care (01) ==
LOC: HO.MRI 10:30
PROVIDERS: PCP Internal Medicine; Visit Provider Internal Medicine Gastroenterology
DX: K86.2 Cyst of pancreas (principal)
CPT/HCPCS: 74183; A9585

== ENCOUNTER → 2024-12-04 10:43 | Outpatient (BNV) | payer OTHER, SELFPAY | PROVIDERS: PCP Internal Medicine; Visit Provider Radiology Diagnostic Radiology | DX: K86.2 Cyst of pancreas (principal); N28.1 Cyst of kidney, acquired | CPT/HCPCS: 74183 ==

== ENCOUNTER 2025-01-02 10:26 | Outpatient (AMB) | payer OTHER, SELFPAY ==
[2025-01-02 10:37] VITALS: BMI 38.1
--- NOTE | 2025-01-02 10:37 | MHC.OFFVIS ---
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 States she has Hx of scoliosis and pain has worsen after having right hip replacement with Dr Simon 6 yrs ago. States her right leg is shorter than her left leg and a tilt in her pelvic bone. States she leans to her right significantly. Curvature is right by her kidneys. Hx of injection with [facility] for her left side of her SI joint. Last injection was about 2 years with good relief. Denies numbness or tingling in toes. She also had lumbar facet injections in 2021 with [facility] (no report available) Allergies cephalexin Allergy (Severe, Verified 01/02/25 10:46) Difficulty Breathing latex [LATEX] Allergy (Severe, Verified 01/02/25 10:46) Difficulty Breathing levofloxacin [From LEVAQUIN] Allergy (Severe, Verified 01/02/25 10:46) SHORTNESS OF BREATH, RASH, rash morphine [MORPHINE] Allergy (Severe, Verified 01/02/25 10:46) RASH, asthma exacerbation, rash baclofen [BACLOFEN] Allergy (Intermediate, Verified 01/02/25 10:46) Rash celecoxib [Celebrex] Allergy (Intermediate, Verified 01/02/25 10:46) itching, rash, flushing prednisone [PREDNISONE] Allergy (Intermediate, Verified 01/02/25 10:46) RASH, asthma exacerbation, rash codeine Allergy (Unknown, Verified 01/02/25 10:46) Rash gluten [GLUTEN] Allergy (Unknown, Verified 01/02/25 10:46) UNKNOWN oxycodone Allergy (Unknown, Verified 01/02/25 10:46) rash ranitidine Allergy (Unknown, Verified 01/02/25 10:46) unknown roflumilast [Daliresp] Allergy (Unknown, Verified 01/02/25 10:46) rash tramadol [TRAMADOL] Allergy (Unknown, Verified 01/02/25 10:46) RASH,SHORTNESS OF BREATH AND HEADACHE, asthma exacerbation, rash celery Allergy (Verified 01/02/25 10:46) Rash cyclobenzaprine [From Flexeril] Allergy (Verified 01/02/25 10:46) Rash and asthma exacerbation environmental allergies Allergy (Verified 01/02/25 10:46) Cleaning products cause asthma attack pineapple Allergy (Verified 01/02/25 10:46) Rash strawberry Allergy (Verified 01/02/25 10:46) Rash sulfamethoxazole [From Bactrim] Adverse Reaction (Intermediate, Verified 01/02/25 10:46) vertigo trimethoprim [From Bactrim] Adverse Reaction (Intermediate, Verified 01/02/25 10:46) vertigo diazepam [From Valium] Adverse Reaction (Verified 01/02/25 10:46) Cough HPI Comments Details: History of DM, persistent asthma, weakened immune system, recent left hand infection, history of right ELIZA and THR, lumbar disc disease and scoliosis. Used to go to [facility], had facet and SI joint injections. Difficulty with injection due to arthritis, 2021. Scoliosis noted during adulthood. Right leg shorter than left after hip replacement/revision. Right leg still hurts, hip clicks. Right bunion surgery at [facility], 6 years ago. 1 year ago, had cellulitis and plate was removed from big toe. Still has plate on 2nd toe. Has appointment at [facility] in January. She takes dilaudid for the past 4 years at least, prescribed by Dr. Strong. Right thigh/hip and numbness, chronic, even before the hip replacement. Does not radiate down to below the knee. No numbness on feet, no history of neuropathy. Slow walk. Leans to right side. No foot drop. She tends to trip on canes. Walkers worsens back pain. [facility] Medical History Back pain Renal insufficiency Obesity (BMI 30-39.9) Mitochondrial myopathy Diabetes mellitus Portal hypertensive gastropathy Esophageal varices determined by endoscopy Portal hypertension HTN (hypertension) Anemia Chronic restrictive lung disease Brugada syndrome Shortness of breath Encounter for care related to Port-a-Cath Tinea pedis Recurrent cellulitis of lower extremity CHARLES (obstructive sleep apnea) Hypogammaglobulinemia Cellulitis of both lower extremities Right hip pain Lumbar degenerative disc disease Benign essential hypertension Asthma Acquired hypothyroidism Pure hypercholesterolemia Hx of cataract Osteopenia Osteoarthritis of hip Gastritis Surgical History History of revision of total replacement of right hip joint (~12/2019) Hx of hand surgery History of removal of Port-a-Cath History of total right hip arthroplasty (~06/03/19) History of eye surgery (~09/2017) History of hip surgery Hx of foot surgery (~01/02/19) History of removal of cyst Hx of left knee surgery History of elbow surgery (~07/2016) Hx of thumb surgery Hx of appendectomy Hx of hysterectomy (~07/2011) Hx of bilateral breast reduction surgery Family History Father Leukemia Mother Hypertension Diabetes Sister Alive and well Brother Pancreatic cancer Paternal Grandmother Stomach cancer Paternal Grandmother Throat cancer Social History Household Members: Family Housing: Apartment Do you presently have visiting nurse or other home services: No Alcohol intake: never Comment: refused bed alarm Patient Tobacco Use Status: Never used Tobacco e-Cigarette/Vaping Use: Never Used Second Hand Smoke Exposure: No Advance Directives Date on File: 10/02/23 service: No Current occupational status: disabled Current occupation: rt handed Cognitive needs: No Hearing needs: No Vision needs: No Review of Systems Const All systems reviewed & are unremarkable except as noted in HPI and below Physical Exam Vital Signs: BMI result Body Mass Index 38.1 Right leg shorter than left, notable because she needs to bend left knee more when she walks. Leans towards the right. Tender on right SI joint. No obvious curvature on spine. No footdrop. Knee extension 5/5. Give-way weakness on hip flexion, particularly right side. Results Reviewed Results Reviewed: Ordering Physician: Cassius Strong MD Date of Service: 06/28/21 Procedure(s): XR hip RT min 2V Accession Number(s): [id number] cc: Cassius Strong MD~ EXAMINATION: XR HIP, RIGHT CLINICAL INFORMATION: Right hip pain. COMPARISON: 06/17/2020 TECHNIQUE: Two views of the right hip. FINDINGS: The patient is status post right hip total arthroplasty with femoral and acetabular components appearing in good position. No evidence of acute fracture or hardware failure. No evidence of loosening. There is some heterotopic ossification/calcification within the soft tissues about the lateral aspect of the hip and greater trochanter. XR/XR hip RT min 2V IMPRESSION: Stable appearance of the right hip total arthroplasty without evidence of hardware failure or fracture. I reviewed records from the following: Ortho Rheumatology saw her in 2020 for OA Pulm Assessment & Plan Assessment & Plan (1) Lumbar degenerative disc disease: Code(s): M51.36 - Other intervertebral disc degeneration, lumbar region Category: Medical Qualifiers: Disc-related pain type: discogenic back pain only Qualified Code(s): M51.360 - Other intervertebral disc degeneration, lumbar region with discogenic back pain only (2) Right hip pain: Comment: S/P right hip arthroplasty by Dr. Simon on 06/03/2019 (due to avascular necrosis), then S/P revision of right hip in 12/2019 Code(s): M25.551 - Pain in right hip Category: Medical (3) Scoliosis: Code(s): M41.9 - Scoliosis, unspecified Category: Medical Qualifiers: Scoliosis type: other secondary scoliosis Spinal region: lumbosacral Qualified Code(s): M41.57 - Other secondary scoliosis, lumbosacral region Plan The leg length discrepancy I suspect is from previous hip surgeries. No notable scoliosis on exam. Will send her for lumbar, pelvic and right hip xrays today. Hip xray to see stability/placement of hardware. Also to do scoliosis survey to measure if there is any curvature and what degree. Perhaps trying a walker with seat would help better for gait/walking. Assessment and plan discussed with patient, and patient was agreeable. All questions were answered thoroughly. Follow up after x-rays. Jacqueline Abrams MD, SHARI Board Certified, [place] [employer] and Rehabilitation (ABPMR) Board Certified, [place] Board [employer] Electrodiagnostic Medicine (ABEM) Orders: Orders XR lumbar spine 2-3V Today M25.551 - Pain in right hip, M41.9 - Scoliosis, unspecified, M51.360 - Other intervertebral disc degeneration, lumbar region with discogenic back pain only, M54.9 - Dorsalgia, unspecified XR pelvis min 3V Today M25.551 - Pain in right hip, M41.9 - Scoliosis, unspecified, M51.360 - Other intervertebral disc degeneration, lumbar region with discogenic back pain only XR hip RT min 2V Today M25.551 - Pain in right hip, M41.9 - Scoliosis, unspecified, M51.360 - Other intervertebral disc degeneration, lumbar region with discogenic back pain only XR scoliosis survey Today M25.551 - Pain in right hip, M41.9 - Scoliosis, unspecified, M51.360 - Other intervertebral disc degeneration, lumbar region with discogenic back pain only Coding Level of Care Code New Pt Level 4 (46534) Diagnoses Degeneration of intervertebral disc of lumbar region with discogenic back pain M51.360 Disc-related pain type: discogenic back pain only Right hip pain M25.551 Other secondary scoliosis, lumbosacral region M41.57 Scoliosis type: other secondary scoliosis Spinal region: lumbosacral
== END 2025-01-02 12:01 | disposition home or self-care (01) ==
LOC: HO.HOS 10:27
PROVIDERS: PCP Internal Medicine; Visit Provider Physical Medicine & Rehabilitation
DX: M51.360 Other intervertebral disc degeneration, lumbar region with discogenic back pain only (principal); M25.551 Pain in right hip; M41.57 Other secondary scoliosis, lumbosacral region
CPT/HCPCS: 99204

== ENCOUNTER → 2025-01-02 10:26 | Outpatient (BNVA) | payer OTHER, SELFPAY | PROVIDERS: PCP Internal Medicine; Visit Provider Physical Medicine & Rehabilitation | DX: M51.360 Other intervertebral disc degeneration, lumbar region with discogenic back pain only (principal); M25.551 Pain in right hip; M41.57 Other secondary scoliosis, lumbosacral region | CPT/HCPCS: 99202 ==

== ENCOUNTER 2025-01-09 09:49 | Outpatient (REF) | payer OTHER, SELFPAY ==
--- NOTE | ~2025-01-09 | XR_ITS ---
EXAMINATION: XR LUMBOSACRAL SPINE CLINICAL INFORMATION: M54.9 - Dorsalgia, unspecified COMPARISON: January 09, 2025. TECHNIQUE: Three views of the lumbosacral spine. FINDINGS: There is a levoconvex rotoscoliosis apex at L4 and a dextroconvex scoliosis apex at T12-L1. Marginal formation and endplate sclerosis decreased intervertebral disc height at L4-5 and L5-S1 level. There is incomplete ankylosis L2 L4. No acute cortical disruption or gross malalignment. Metallic prosthesis no within the [id number] in the right hip. Sclerosis and the sacroiliac joints. XR/XR lumbar spine 2-3V IMPRESSION: Moderate to severe thoracolumbar scoliosis resulting in incomplete ankylosis L2 L4 without acute fracture or gross listhesis. Electronically signed by: Marcos Tatum MD 01/09/2025 12:26 PM EDT
--- NOTE | ~2025-01-09 | XR_ITS ---
EXAMINATION: XR HIP, RIGHT CLINICAL INFORMATION: M25.551 - Pain in right hip COMPARISON: 06/28/2021. TECHNIQUE: AP pelvis, and 3 views right hip. FINDINGS: There has been a total right hip arthroplasty. Femoral, acetabular components are intact, well seated, in anatomic alignment. No periprosthetic lucency to suggest loosening. No evidence of abnormal polyethylene wear. No subsidence. Appearance is unchanged from 2020. Mild heterotopic bone formation abutting the superolateral greater trochanter. Degenerative changes in the r bilateral SI joints. Sacrum appears intact. Mild arthritis in the left hip joint with normal alignment. Degenerative changes in the lower lumbar spine with endplate sclerosis at L5-S1. No discrete soft tissue abnormality. XR/XR hip RT w PEL1V IMPRESSION: Right hip arthroplasty without definite complication. Electronically signed by: Quinton Smith MD 01/09/2025 03:00 PM EDT
--- NOTE | ~2025-01-09 | XR_ITS ---
CLINICAL HISTORY: M25.551 - Pain in right hip Scoliosis study Comparison: None Findings: 45 degrees dextroscoliosis lower thoracic and lumbar spine. Degenerative change noted in the lumbar spine. Right hip prosthesis partially visualized. Impression: Dextroscoliosis as above This document has been electronically signed by: Feliciano Figueroa MD on 01/09/2025 20:23:23
--- OUTSIDE RECORDS SUMMARY | 2025-01-09 12:13 | XMS_ITS ---
Author Organization [facility] Care Team Providers Care Radial Drill Press Set Up Operator Name Role Phone Elder Tamiko Carrion Unavailable Unavailable Care Team Name Role Address Phone Organization Dates Tamiko Carrion Elder PCP [address], [place], [address], [place] (Office): : [facility] 09/24/2019 - 10/04/2019 Mental Status Section Date Assessment Total Score Description 10/03/2019 BIMS 15 cognitively int act CAM 0 No delirium ind icated PHQ-9 00 10/01/2019 BIMS 15 cognitively int act CAM 0 No delirium ind icated PHQ-9 00 Problems Problem # Description Date of onset Resolved Date Code CodeSystem Concern Status 1 ANEMIA, UNSPECIFIED [address] active 2 DEPENDENCE ON SUPPLEMENTAL OXYGEN [address] active 3 DISLOCATION OF INTERNAL RIGHT HIP PROSTHESIS, SUBSEQUENT ENCOUNTER [address] active 4 GASTRO-ESOPHAGEAL REFLUX DISEASE WITHOUT ESOPHAGITIS [address] active 5 HYPERTENSIVE HEART DISEASE WITHOUT HEART FAILURE [address] active 6 HYPOTHYROIDISM, UNSPECIFIED [address] active 7 IDIOPATHIC ASEPTIC NECROSIS OF UNSPECIFIED FEMUR [address] active 8 BELT TENDER (CURRENT) USE OF INSULIN [address] active 9 MILD INTERMITTENT ASTHMA, UNCOMPLICATED [address] active 10 MUSCLE WEAKNESS (GENERALIZED) [address] active 11 MYASTHENIA GRAVIS WITHOUT (ACUTE) EXACERBATION [address] active 12 NON-CELIAC GLUTEN SENSITIVITY [address] active 13 OBSTRUCTIVE SLEEP APNEA (ADULT) (PEDIATRIC) [address] active 14 OTHER CHRONIC PANCREATITIS [address] active 15 OTHER SPECIFIED DISORDERS OF THE SKIN AND SUBCUTANEOUS TISSUE [address] active 16 POLYCYSTIC OVARIAN SYNDROME [address] active 17 PRIMARY GENERALIZED (OSTEO)ARTHRITIS [address] active 18 REPEATED FALLS [address] active 19 SCIATICA, RIGHT SIDE [address] active 20 TYPE 2 DIABETES MELLITUS WITHOUT COMPLICATIONS [address] active 21 UNSTEADINESS ON FEET [address] active Reason for Referral No Reasons for Referral Entered Social History Social History Observation Description Start Date End Date Code Code System Current Smoking Status Tobacco smoking consumption unknown 173512189 SNOMED CT Sex Assigned At Female 1970 92931-0 [facility] Vital Signs Code Code System Vitals Name Values and Units Timing Information 2339-0 [facility] Blood Sugar Ujlkc=521.0 Units=mg/dL 10/03/2019 9279-1 [facility] Respiratory Rate Value=16.0 Units=/m in 10/03/2019 8462-4 [facility] Blood Pressure-Diastolic Value=68 Un its=mmHg 10/03/2019 8480-6 [facility] Blood Pressure-Systolic Npwho=088 Un its=mmHg 10/03/2019 8310-5 [facility] Body Temperature Value=97.7 Units=?? F 10/03/2019 8867-4 [facility] Heart rate Value=65.0 Units=/min 86215-4 [facility] O2 % BldC Oximetry Value=97.0 Units= % 10/03/2019 91778-2 [facility] Weight Vwbkq=215.0 Units=Lbs 08/2019 8302-2 [facility] Height Value=64.0 Units=Inches 09/25/2019
--- OUTSIDE RECORDS SUMMARY | 2025-01-09 12:13 | XMS_ITS | Patient Health Record ---
Author Organization [facility] Address [address] [place] [address] Care Team Providers Care Pmp Certified Project Manager Name Role Phone Cassius Strong Primary Care Provider Colin Mercado Unavailable [phone] ALLERGIES Allergen (clinical drug ingredient) Drug/Non Drug Allergy documented on EMR Reaction Allergy Type Onset Date Status Apples/Vigo/Leda ts/Pineapple/Strawb erry/Onion (uncoded) Unknown Allergy Active Gluten [...] out er thigh IM prn Active Ipratropium [place] 0.02 % Inhalation Active Medrol 16 MG [...] Notes Problem Food allergy (Z91.018) Active confirmed 935110948 Problem 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) Active confirmed 646080730 Problem Osteopenia (M85.80) Active confirmed 700593710 Problem Severe persistent asthma, uncomplicated (J45.50) Active confirmed 946136090 Problem Pancreatitis (K85.9) Active confirmed 96797284 Problem Steroid-dependent asthma (J45.909) Active confirmed 9955056750607674 Problem Insulin dependent diabetes mellitus with complications (E11.8) Active confirmed 85901551 Problem Myasthenia gravis (G70.00) Active confirmed 18161597 PLAN OF TREATMENT No Information Insurance Providers Payer Name Payer Address Payer Phone Subscriber Number Group Number Insured Name Patient Relationship to Insured Coverage Start Date Coverage End Date Medicare/[facility] [employer] [address] [place] [id number] Kala Deysi Self - patient is the insured Medicaid [address] [place] [address] [id number] Deysi Armendariz Self - patient is the insured MEDICAL [...]
--- OUTSIDE RECORDS SUMMARY | 2025-01-09 12:13 | XMS_ITS ---
Author Organization [facility] Care Team Providers Care Grade School Teacher Name Role Phone Tamiko Cole Unavailable Unavailable Ольга Browne Unavailable Unavailable Goldie Olmos Unavailable Unavailable Nereyda Dawson Unavailable Unavailable Allergies and adverse reactions Code CodeSystem Substance Reaction Severity StartDate Concern Status 44348 RXNORM Tramadol Unknown 12/09/2019 active 97683 RXNORM Theophylline Unknown 12/09/2019 active Strawberries Unknown 12/09/2019 active 8640 RXNORM Prednisone Unknown 12/09/2019 active Pineapple Unknown 12/09/2019 active [place] Juice Unknown 12/09/2019 active 7052 RXNORM Morphine Unknown 12/09/2019 active 49891 RXNORM Levofloxacin Unknown 12/09/2019 active Latex Unknown 12/09/2019 active Lactose Unknown 12/09/2019 active 5489 RXNORM Hydrocodone Unknown 12/09/2019 active Gluten Unknown 12/09/2019 active 23751 RXNORM Cyclobenzaprine Unknown 12/09/2019 activ e 2670 RXNORM Codeine Unknown 12/09/2019 active Carrot Unknown 12/09/2019 active Apple Unknown 12/09/2019 active Care Team Name Role Address Phone Organization Denise Cole PCP [address], [place], [address], [place] (Office): : [facility] 12/09/2019 - 01/03/2020 Ольга Browne Attending Physician [address], [place], [address], [place] (Office): : [facility] 12/09/2019 - 01/03/2020 Goldie Olmos Attending Physician [address], [place], [address], [facility] (Office): : [facility] 12/09/2019 - 01/03/2020 Nereyda Dawson Attending Physician [address], [place], [address], [place] (Office): : [phone] [facility] 12/09/2019 - 01/03/2020 Goals Section Description Status Target Date Any decline in my ability to participate in my ADLs will be quickly noted and addressed. Active 03/09/2020 Deysi will remain active in dependent activities of choice on a daily basis Active 03/09/2020 Goal: Patient will maintain best function for ab ilities Active 03/09/2020 I hope that I can be success fully resuscitated in the event my heart stops. Active 03/09/2020 I want you to help me keep my blood glucose leve ls under control. Active 03/09/2020 I want you to keep me free from injury. Active 03/09/2020 I will have relief of pain t hrough the next review date within 45 minutes of pain relieving strategies. Active 03/09/2020 I will not develop any complications related to HTN. Active 03/09/2020 My family and I will participate in my discharge planning Active 03/09/2020 My right hip will remain intact Active 03/09/2020 The resident will be complia nt with thyroid replacement therapy through the review date. Active 03/09/2020 The resident will remain carli e from complications of asthma through the review date. Active 03/09/2020 The resident will remain carli e from discomfort, complications or s/sx related to dx of GERD through review date. Active 2019 With staff help I will not develop any skin issu es. Active 03/09/2020 maintain weight i ntake >75% Active 03/09/2020 Immunizations Immunization Status Vaccine Details Vaccine Code CodeSystem Date Notes Pneumococcal cancelled created date: 12/10/2019 consent date: 12/10/2019 Influenza-Standard Dose(Afluria) completed created date: 12/10/2019 administered date: 06/17/2019 Mental Status Section Date Assessment Total Score Description 01/03/2020 BIMS 14 cognitively int act CAM 0 No delirium ind icated PHQ-9 00 12/19/2019 BIMS 15 cognitively int act CAM 0 No delirium ind icated PHQ-9 00 Problems Problem # Description Date of onset Resolved Date Code CodeSystem Concern Status 1 ENCOUNTER FOR OTHER ORTHOPEDIC AFTERCARE [address] active 2 PRESENCE OF RIGHT ARTIFICIAL HIP JOINT [address] active 3 UNSTEADINESS ON FEET [address] active 4 MUSCLE WEAKNESS (GENERALIZED) [address] active 5 ANEMIA, UNSPECIFIED [address] active 6 GASTRO-ESOPHAGEAL REFLUX DISEASE WITHOUT ESOPHAGITIS [address] active 7 HYPERTENSIVE HEART DISEASE WITHOUT HEART FAILURE [address] active 8 HYPOTHYROIDISM, UNSPECIFIED [address] active 9 MILD INTERMITTENT ASTHMA, UNCOMPLICATED [address] active 10 MYASTHENIA GRAVIS WITHOUT (ACUTE) EXACERBATION [address] active 11 OBSTRUCTIVE SLEEP APNEA (ADULT) (PEDIATRIC) [address] active 12 OTHER ABNORMALITIES OF GAIT AND MOBILITY [address] active 13 OTHER CHRONIC PANCREATITIS [address] active 14 POLYCYSTIC OVARIAN SYNDROME [address] active 15 PRIMARY GENERALIZED (OSTEO)ARTHRITIS [address] active 16 REPEATED FALLS [address] active 17 SCIATICA, RIGHT SIDE [address] active 18 TYPE 2 DIABETES MELLITUS WITHOUT COMPLICATIONS [address] active 19 DISLOCATION OF INTERNAL RIGHT HIP PROSTHESIS, SUBSEQUENT ENCOUNTER [address] active Reason for Referral No Reasons for Referral Entered Social History Social History Observation Description Start Date End Date Code Code System Current Smoking Status Tobacco smoking consumption unknown 145220812 SNOMED CT Sex Assigned At Female 1970 [address]-5 [facility] Vital Signs Code Code System Vitals Name Values and Units Timing Information 9279-1 [facility] Respiratory Rate Value=18.0 Units=/m in 12/27/2019 8462-4 [facility] Blood Pressure-Diastolic Value=90 Un its=mmHg 12/27/2019 8480-6 [facility] Blood Pressure-Systolic Oaevd=954 Un its=mmHg 12/27/2019 8310-5 [facility] Body Temperature Value=98.5 Units=?? F 12/27/2019 8867-4 [facility] Heart rate Value=96.0 Units=/min 76401-1 [facility] O2 % BldC Oximetry Value=98.0 Units= % 12/27/2019 2339-0 [facility] Blood Sugar Zfoqp=796.0 Units=mg/dL 12/23/2019 79751-2 [facility] Pain Level Value=0.0 12/23/2019 72075-6 [facility] Weight Msahs=015.0 Units=Lbs 05/2020 8302-2 [facility] Height Value=64.0 Units=Inches 12/22/2019
--- OUTSIDE RECORDS SUMMARY | 2025-01-09 12:13 | XMS_ITS | Data Portability ---
Author Organization [facility], [facility] Address [address] [place] [address] Care Team Providers Care Character Impersonator Name Role Phone SYL ESTRADA Primary Care Provider [phone] Assessment Encounter Date Assessment Date Assessment LastModified by Organization Details LastModified Time 05/20/2024 05/20/2024 Assessment: Status post left index finger debridement of cyst 05/07/2024 Plan: Wound care is reviewed. Follow-up as scheduled. She will call if she develops signs or symptoms of infection which is been reviewed with her today. anabella Not available 05/20/2024 15:44:04 07/15/2024 07/15/2024 Assessment: Left index finger recurrent flexor tenosynovitis which in the past, in 2018 was found to be a candidal infection requiring antifungal medications as prescribed by the infectious disease group at [facility] Concern for recurrent infection at this time Plan: Wound cultures are taken today. Dressings reapplied. Plan is made for surgical debridement of the left index finger and formal tissue collection for culture. In addition, I would like to reestablish her care with [facility] infectious diseases. Referral is made to their group. Surgery to be booked for complex flexor tenosynovectomy. We have discussed the postoperative recovery course for the recommended surgery. Risks of surgery include but are not limited to: Infection, bleeding, damage normal tissues, need for future surgeries, and recurrent or recalcitrant symptoms after surgery. Questions asked and answered to the patient's satisfaction; surgery to be scheduled with my legal secretary receptionist. anabella Not available 07/15/2024 11:12:48 Plan of Treatment Reminders Order Date Submit Date Provider Last Modified By Organization Details Last Modified Time Details Appointments RECHECK 15 2024 08:30A M Cristopher Lazo MD Not available Not available Not available NEW PATIENT 15 2024 01:45P M Kasandra Alberts MD Not available Not available Not available RECHECK 15 2024 03:30P M Bebe albert MD Not available Not available Not available Lab culture , wound 2023 024 VICKI [facility] (Centralized Electronic Ordering - All Locations), Patient Can Go To The Location Of Their Choice, [id number] 07/16/2024 06:52:48 fungus, culture , wound - wound Left index finger 2023 024 VICKI [facility] (Centralized Electronic Ordering - All Locations), Patient Can Go To The Location Of Their Choice, [id number] 07/22/2024 08:52:31 Referral None recorde d. Procedures None recorde d. Surgeries None recorde d. Imaging None recorde d. Medication Orders None recorde d. Patient TargetsNo targets recorded. Patient InstructionsNo instructions recorded. Reason for Referral None Reported. Results Created Date Observation Date Name Description Value Unit Range Abnormal Flag Note LastModifiedBy Organization Detail LastModifiedTime 04/25/2004/26/2024 ELECT ROLYT E PANEL sodium 140 mmol/ L 134-14 4 normal Not Available [facility] ([facility]) [address] [place], [address], 05/01/2024 00:05:22 04/25/2004/26/2024 ELECT ROLYT E PANEL potassium 4.1 mmol/ L 3.5-5. 2 normal Not Available [facility] ([facility]) [address] [place], [address], 05/01/2024 00:05:22 04/25/2004/26/2024 ELECT ROLYT E PANEL chloride 104 mmol/ L 96-106 normal Not Available [facility] ([facility]) [address] [place], [address], 05/01/2024 00:05:22 04/25/20 24 04/26/2024 ELECT ROLYT E PANEL carbon dioxide, total 20 mmol/ L 20-29 normal Not Available [facility] ([facility]) [address] [facility], [place], [address], 05/01/2024 00:05:22 04/25/20 24 04/30/2024 GLUCO SE glucose 122 mg/dL 70-99 above high normal Not Available [facility] ([facility]) [address] [facility], [place], [address], 05/01/2024 00:05:23 05/02/20 24 04/25/2024 rhyth m strip , EKG* No observ ation record ed. [email or web address] Not Available 2023 15:11:23 06/14/20 24 09/14/2021 imagi ng/di agnos tic resul t No observ ation record ed. [email or web address] Not Available 05/18 23:35:25 06/14/20 24 04/13/2019 imagi ng/di agnos tic resul t No observ ation record ed. [email or web address] Not Available 05/18 23:35:37 06/14/20 24 01/02/2019 imagi ng/di agnos tic resul t No observ ation record ed. [email or web address] Not Available 05/18 23:35:58 01/10/20 25 01/09/2025 XR, elbow , 3 or more view http:/ [email or web address] ?Encry pted=s hAaTro YD8dLq bEUv6g %2BXZw aYqtaq 0bqfl% 2Fg9IQ a4ajBk vP9nXo QUaueC m3YtLR FvZlgJ JJ8mAn HZtai3 8i6835 AC0KqY nWFUaK uKiQtr [facility] INTERFACE [facility] [address] [facility] [address], [place], [address], 01/09/2025 08:51:10 01/10/20 25 01/09/2025 XR, elbow , 3 or more view http:/ [email or web address] ?Encry pted=s hAaTro YD8dLq bEUv6g %2BXZw aYqtaq 0bqfl% 2Fg9IQ a4ajBk vP9nXo QUaueC m3YtLR FvZlgJ JJ8mAn HZtai3 4x8993 AC0KqY nWFUaK uKiQtr [facility] INTERFACE [facility] [address], [place], [address], 01/09/2025 08:51:12 Result Notes None recorded. Problems Name Problem SNOMED Code Status Onset Date Resolution Date Notes Provider Name and Address Organization Details Recorded Time Flexor tenosynov itis of finger Active 2024 Cristopher Lazo MD [address], [place], [address] , [facility] 5 08:28:41 Healing fracture Active 2013 Status: 'A'; Not Available [facility] 4 11:43:49 Sprain of ligament of metacarpo phalangea l joint of left thumb 073552108211 00688 Active 2015 Problem Code: S63.642A ; Problem Code Type: ICD-10; Status: 'A'; Not Available [facility] 4 11:43:50 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 4 17:40:16 Ganglion cyst of left hand 331539759446 105 Active 2023 JESSICAFELIX MITCHELL [facility], [facility] 17:52:37 Problem Notes None recorded. Procedures Surgical History Date Name Laterality Status Provider Name and Address Organization Details Recorded Time 4 EXCISION OF SOFT TISSUE MASS (SURG) completed RAQUEL JONES [facility] 05/08/2024 12:10:27 4 Elbow Kenalog 1cc Injection, L/R completed Cristopher Lazo MD [address], [place], [address], [facility] 02/08/2024 12:32:41 Imaging Results Imaging Date Name Status LastModified by Organiz ation Details LastModified Time 04/25/2024 rhythm strip, EKG* completed [email or web address] Information not available 05/02/2024 15:11:23 09/14/2021 imaging/diag nostic result completed Information not available 06/14/2024 23:35:25 04/13/2019 imaging/diag nostic result completed Information not available 06/14/2024 23:35:37 01/02/2019 imaging/diag nostic result completed Information not available 06/14/2024 23:35:58 01/09/2025 XR, elbow, 3 or more view completed INTERFACE [facility] [address], [place], [address], 01/09/2025 08:51:10 01/09/2025 XR, elbow, 3 or more view completed INTERFACE [facility] [address], [place], [address], 01/09/2025 08:51:12 Procedure Notes None recorded. Medical Equipment None Reported. Allergies Allergen ID Allergen Name Allergen Category Reaction Reaction Severity Criticality Documentation Date Start Date Code Code System Note Provider Name and Address Organization Details Recorded Time 65839 cyclobenz aprine hydrochlo ride medicatio n Not available Not available Not available 12/18/20232012 48295 RxNorm Not Available [facility] 4 13:31:46 81518 doxycycli ne hyclate medicatio n Not available Not available Not available 12/18/20232015 12870 RxNorm Not Available [facility] 4 13:31:46 43558 pineapple extract food Not available Not available Not available 12/18/20232012 64648 74 RxNorm Not Available [facility] 4 13:31:46 02440 strawberr y allergeni c extract food,medi cation Not available Not available Not available 12/18/20232012 59022 4 RxNorm Not Available [facility] 4 13:31:46 41476 tramadol hydrochlo ride medicatio n Not available Not available Not available 12/18/20232012 12374 RxNorm Not Available [facility] 4 13:31:46 59784 Levaquin medicatio n Not available Not available Not available 12/18/20232013 21842 2 RxNorm Not Available [facility] 4 13:31:46 89973 wheat gluten extract food Not available Not available Not available 12/18/20232013 91377 81 RxNorm Not Available [facility] 4 13:31:47 94407 acetamino phen / hydrocodo ne medicatio n Not available Not available Not available 12/18/20232013 32467 2 RxNorm Not Available [facility] 4 13:31:47 29733 morphine sulfate medicatio n Not available Not available Not available 12/18/20232012 95871 RxNorm Not Available [facility] 4 13:31:47 01919 codeine medicatio n Not available Not available Not available 12/18/20232012 2670 RxNorm Not Available [facility] 13:31:47 60690 latex environme nt,medica tion Not available Not available Not available 12/18/20232010 73015 91 RxNorm Not Available [facility] 13:31:47 Medications Name Sig Start Date Stop Date Status Note LastModified by Organization Details LastModified Time magic mouthwash diphen/lido /antacd SWISH 10ML BY MOUTH FOUR TIMES DAILY 01/09 completed Not Available Not Available Not Available fluconazole 100 mg tablet TAKE 1 TABLET BY MOUTH DAILY FOR 14 DAYS active Not Available Not Available No t Available atorvastati n 40 mg tablet TAKE 1 TABLET BY MOUTH AT BEDTIME active Not Available Not Available No t Available clotrimazol e 10 mg jacinta TAKE 1 LOZENGE TO MUCOSAL AREA 3 TIMES A DAY FOR 7 DAYS 02/07 completed Not Available Not Available Not Available nystatin 100,000 unit/mL oral suspension SWISH AND SPIT 5 ML BY MOUTH THREE TIMES DAILY 01/09 completed Not Available Not Available Not Available carvedilol 6.25 mg tablet TAKE 1 TABLET BY MOUTH EVERY DAY 01/09 completed Not Available Not Available Not Available tizanidine 2 mg tablet TAKE 2 TABLETS BY MOUTH AT BEDTIME NEEDED FOR MUSCLE SPASMS active Not Available Not Available No t Available Lidocaine Viscous 2 % mucosal solution 01/09 completed Not Available Not Available Not Available fluconazole 150 mg tablet TAKE 1 TABLET BY MOUTH DAILY 01/09 completed Not Available Not Available Not Available metoprolol succinate ER 50 mg tablet,exte nded release 24 hr TAKE 1 TABLET BY MOUTH DAILY active Not Available Not Available No t Available sucralfate 100 mg/mL oral suspension TAKE 10 ML BY MOUTH FOUR TIMES DAILY BEFORE MEALS/BED TIME 02/07 completed Not Available Not Available Not Available fluconazole 200 mg tablet TAKE 1 TABLET BY MOUTH DAILY FOR 7 DAYS active Not Available Not Available No t Available FreeStyle Lancets 28 gauge USE TO TEST BLOOD SUGAR 5 TIMES A DAY 01/09 completed Not Available Not Available Not Available methylpredn isolone 4 mg tablet TAKE 2 TABLETS BY MOUTH TWICE DAILY X 4 DAYS THEN 1 TABLET TWICE DAILY X 4 DAYS THEN 1 TABLET DAILY X 4 DAYS 01/09 completed Not Available Not Available Not Available amlodipine 2.5 mg tablet TAKE 1 TABLET BY MOUTH DAILY active Not Available Not Available No t Available omeprazole 40 mg capsule,del ayed release TAKE 1 CAPSULE BY MOUTH TWICE DAILY FOR GASTRITIS active Not Available Not Available No t Available spironolact one 25 mg tablet TAKE 1 TABLET BY MOUTH DAILY active Not Available Not Available No t Available ondansetron 8 mg disintegrat ing tablet DISSOLVE 1 TABLET ON THE TONGUE EVERY 8 HOURS FOR 10 DAYS NEEDED FOR NAUSEA OR VOMITING 01/09 completed Not Available Not Available Not Available hydromorpho ne 2 mg tablet TAKE 1 TABLET BY MOUTH THREE TIMES DAILY FOR 7 DAYS NEEDED FOR PAIN 01/09 completed Not Available Not Available Not Available doxycycline monohydrate 100 mg capsule TAKE 1 CAPSULE BY MOUTH TWICE DAILY FOR 7 DAYS 01/09 completed Not Available Not Available Not Available pseudoephed rine-guaife nesin ER 80-700 mg tablet,exte nded release 1-2 Q 4-6 Hours Prn 02/07 completed Statu s: 'Curr ent'; Not Available Not Available Not Available pyridostigm ine bromide 60 mg tablet TAKE 1 TABLET BY MOUTH FOUR TIMES DAILY 01/09 completed Not Available Not Available Not Available losartan 25 mg tablet TAKE 1 TABLET BY MOUTH AT BEDTIME active Not Available Not Available No t Available montelukast 10 mg tablet TAKE 1 TABLET BY MOUTH AT BEDTIME 01/09 completed Not Available Not Available Not Available fluticasone propionate 220 mcg/actuati on HFA aerosol inhaler INHALE 2 PUFFS BY MOUTH TWICE DAILY active Not Available Not Available No t Available Synthroid 112 mcg tablet TAKE 2 TABLETS BY MOUTH DAILY. active Not Available Not Available No t Available azelastine 137 mcg (0.1 %) nasal spray USE 2 SPRAYS IN EACH NOSTRIL DAILY 01/09 completed Not Available Not Available Not Available epinephrine 0.3 mg/0.3 mL injection, auto-inject or USE DIRECTED FO ANAPHYLAX IS AND CALL 911 AFTER USE 01/09 completed Not Available Not Available Not Available ibuprofen 600 mg tablet TAKE 1 TABLET BY MOUTH TWICE DAILY NEEDED FOR PAIN 02/07 completed Not Available Not Available Not Available ipratropium bromide 42 mcg (0.06 %) nasal spray USE 1 SPRAY IN EACH NOSTRIL TWICE DAILY 01/09 completed Not Available Not Available Not Available metformin ER 500 mg tablet,exte nded release 24 hr TAKE 2 TABLETS BY MOUTH TWICE DAILY active Not Available Not Available No t Available loratadine 10 mg tablet TAKE 1 TABLET BY MOUTH DAILY active Not Available Not Available No t Available amoxicillin 875 mg-potassiu m clavulanate 125 mg tablet TAKE 1 TABLET BY MOUTH TWICE DAILY FOR 7 DAYS 01/09 completed Not Available Not Available Not Available neomycin 3.5 mg/g-polymy nicole B 10,000 unit/g-dexa meth 0.1 % eye oint APPLY 1/4 THIN LAYER TO UPPER EYELID AT BEDTIME. MAY USE UP TO 3 TIMES A DAY FOR COMFORT 02/07 completed Not Available Not Available Not Available azithromyci n 500 mg tablet TAKE 1 TABLET BY MOUTH DAILY FOR 5 DAYS 01/09 completed Not Available Not Available Not Available daptomycin 500 mg intravenous solution 01/09 completed Not Available Not Available Not Available nitrofurant oin monohydrate /macrocryst als 100 mg capsule TAKE 1 CAPSULE BY MOUTH EVERY 12 HOURS FOR 7 DAYS 01/09 completed Not Available Not Available Not Available levalbutero l HFA 45 mcg/actuati on aerosol inhaler INHALE 2 PUFFS BY MOUTH EVERY 6 HOURS NEEDED FOR SHORTNESS OF BREATH OR WHEEZING 01/09 completed Not Available Not Available Not Available Synthroid Synthroid 200MCG Tablet 08/09 completed Statu s: 'Disc ontin ued'; Not Available Not Available Not Available calcium 250 mg (as citrate) tablet TAKE 2 TABLETS BY MOUTH TWICE DAILY 01/09 completed Not Available Not Available Not Available Advair HFA Advair HFA 230-21MCG /ACT Aerosol 05/18 completed Statu s: 'Disc ontin ued'; Not Available Not Available Not Available FreeStyle Lite Strips USE TO TEST BLOOD SUGAR 4-5 TIMES A DAY 01/09 completed Not Available Not Available Not Available FeroSul 325 mg (65 mg iron) tablet TAKE 1 TABLET BY MOUTH EVERY DAY 01/09 completed Not Available Not Available Not Available cholecalcif ashely (vitamin D3) 50 mcg (2,000 unit) capsule TAKE 2 CAPSULES BY MOUTH AT BEDTIME 01/09 completed Not Available Not Available Not Available oxycodone HCl-oxycodo ne-ASA 1 tab three times a day 08/09 completed Statu s: 'Disc ontin ued'; Not Available Not Available Not Available Xarelto 20 mg tablet TAKE 1 TABLET BY MOUTH DAILY active Not Available Not Available No t Available Eliquis 5 mg tablet TAKE 1 TABLET BY MOUTH TWICE DAILY active Not Available Not Available No t Available Xarelto DVT-PE Treatment 30-Day Starter 15 mg(42)-20 mg(9) tablet pack TAKE DIRECTED ON PACKAGING 01/09 completed Not Available Not Available Not Available Asmanex HFA 200 mcg/actuati on aerosol inhaler TAKE 2 PUFFS TWICE DAILY 01/09 completed Not Available Not Available Not Available Spiriva Respimat 1.25 mcg/actuati on solution for inhalation INHALE 2 PUFFS BY MOUTH DAILY active Not Available Not Available No t Available Tresiba FlexTouch U-100 insulin 100 unit/mL (3 mL) subcutaneou s pen INJECT 5 UNITS SUBCUTANE OUS DAILY active Not Available Not Available No t Available Fiasp FlexTouch U-100 Insulin 100 unit/mL (3 mL) subcutaneou s pen INJECT 5 TO 20 UNITS SUBCUTANE OUSLY BEFORE MEALS AND SNACKS. FOUR TIMES DAILY 01/09 completed Not Available Not Available Not Available Fasenra 30 mg/mL subcutaneou s syringe 01/09 completed Not Available Not Available Not Available BD Laura 2nd Gen Pen Needle 32 gauge x 5/32 USE TO INJECT FOUR TIMES DAILY DIRECTED 01/09 completed Not Available Not Available Not Available Klayesta 100,000 unit/gram topical powder APPLY TOPICALLY TO THE AFFECTED AREA TWICE DAILY NEEDED FOR RASH 01/09 completed Not Available Not Available Not Available Vitals Date Recorded Body height Body mass index (BMI) Body weight Provider Name and Address Organization Details Last Updated DateTime 05/20/2024 160.02 cm 37.2 kg/m2 57534.4 g BRIGITTE GLASGOW [place] - [facility] 05/20/2024 13:51:30 Date Recorded Body height Body mass index (BMI) Body weight Provider Name and Address Organization Details Last Updated DateTime 06/19/2024 160.02 cm 37.2 kg/m2 54895.4 g PARAMJIT PINEDA [facility] 06/19/2024 09:29:21 Date Recorded Body height Body mass index (BMI) Body weight Provider Name and Address Organization Details Last Updated DateTime 07/15/2024 160.02 cm 37.2 kg/m2 22864.4 g EMILY ALVAREZN [facility] 07/15/2024 10:06:50 Date Recorded Body height Body mass index (BMI) Body weight Provider Name and Address Organization Details Last Updated DateTime 01/09/2025 160.02 cm 37.2 kg/m2 47765.4 g JESSICA MITCHELL [facility] 01/09/2025 08:38:46 Social History None recorded. Functional Status None recorded. Mental Status None recorded. Family History Nothing Reported. Medical History No medical history recorded. Gynecological HistoryNo gynecological history recorded. Obstetrics History GPAL:G 0 P 0 0 0 0 Past Encounters Encounter ID Performer Location Encounter Start Date Encounter Closed Date Diagnosis/Indication Diagnosis SNOMED-CT Code Diagnosis ICD10 Code Diagnosis Note [id number] MD Rosario Jones [address] [place] [address] 02/08/2024 11:29:34 03/01/2024 16:01:59 Dislocation of elbow joint 411471290 S53.105D Medial epi condylitis of left elbow joint 9934336111 32784 M77.02 [id number] JOSSELINE Thorne [address] [place] [address] 03/19/2024 17:19:15 04/23/2024 11:00:07 Hand pain 48807370 M79.755 [id number] Aide Maher OTR/L,CHT [facility] [address] [place] [address] 05/17/2024 10:28:07 05/17/2024 11:20:34 Ganglion cyst of left hand 0732349612 05044 M67.442 upon removal of the postop dressing, the incision site is inspected. It is found to be clean but moist with 2 intact sutures and a slight opening between them. Patient has intact neurovascu lar structures with moderate tenderness along the sides of the incision. No surroundin g erythema but maceration is evident, serous wound drainage, no warmth or signs of infection. There is thickness and edema at the PIP joint and the proximal phalanx. There is no reported muscle or tendon pain. Active range of motion is limited at the MCP and PIP joints. The patient had previously had a tenosynovi al ectomy of the index finger and states that she has had limited movement of the flexor tendons since that time. The digit is postured in extension. Postoperative care 86657 9007 Z48.89 Sutures are removed today without complicati on. Patient is advised to keep the area clean and dry using a piece of gauze and Coban wrap. Today the compressiv e wrap will start at the base of the digit and include the PIP joint to try to control some of the P1 edema. Patient agrees to change this dressing daily continue to keep it covered during wet activities . Patient was advised on some active range of motion exercises but has a great deal of difficulty doing so. Passive range of motion is not advised at this time. Patient does continue to have quite a bit of tenderness at the surgical site and it is not yet closed. She has a great history of infection due to a history with cellulitis and she is quite concerned about the timeframe for healing. She would like to meet with the surgeon again to discuss the overall plan for the lack of functional use of this digit and to have the incision closely monitor. She is scheduled to return to the office at 6 weeks postop but requests a sooner appointmen t to meet with the surgeon. We will do our best to accommodat e this. This office visit was complete at 20 minutes. [id number] MD Rosario Manzano [address] [place] [address] 05/13/2024 14:04:13 05/13/2024 15:16:00 Postoperative care 841931181 Z48.89 [id number] MD Rosario Manzano [address] [place] [address] 05/20/2024 13:39:45 06/23/2024 16:19:26 Ganglion cyst of left hand 0478353880 23479 M67.990 [id number] JOSSELINE Thorne [address] [place] [address] 06/19/2024 09:21:02 07/28/2024 15:12:42 [id number] MD Rosario Manzano [address] [place] [address] 07/15/2024 09:55:05 07/30/2024 08:46:18 Ganglion cyst of left hand 7190716304 35168 M67.442 Flexor ten osynovitis of finger 926781826 M65.849 Health Concerns Section Related Observation LastModified by Organization Detai ls LastModified Time None Recorded Concern Status LastModified by Organization Details LastModified Time None Recorded Advance Directives Directive None Recorded Payers Encounter Date Sequence Insurance Name Policy Number Policy Pak Covered Member ID Pak Member ID Guarantor Name 05/17/2024 1 [employer] - DOS ON OR AFTER 2023 - ONE CARE (MEDICARE REPLACEMENT/ADV ANTAGE - HMO) Deysi R Senuta [id number] Deysi R Senuta 05/20/2024 1 [employer] - DOS ON OR AFTER 2023 - ONE CARE (MEDICARE REPLACEMENT/ADV ANTAGE - HMO) Deysi R Senuta [id number] Deysi R Senuta 06/19/2024 1 [employer] - DOS ON OR AFTER 2023 - ONE CARE (MEDICARE REPLACEMENT/ADV ANTAGE - HMO) Deysi R Senuta [id number] Deysi R Senuta 07/15/2024 1 [employer] - DOS ON OR AFTER 2023 - ONE CARE (MEDICARE REPLACEMENT/ADV ANTAGE - HMO) Deysi R Senuta [id number] Deysi R Senuta Notes Date Note Type Note Provider Name and Address Organization Details Recorded Time 05/17/2024 text/html This is a very pleasant 53-year-old woman who recently had a small procedure for the left distal index finger where she had a mass removed on 05/07/[address] Latif. The patient has had some complications since the surgery and when she took off her large dressing due to the amount of drainage and swelling she was seen in the cast room on 05/13/2024. She presents to the office today at 11 days postop for a wound check and suture removal. Of note the patient did have a previous trigger finger release quite a while ago and has had much difficulty with Aide Maher OTR/L,CHT [address], [place], [address], [facility] 05/17/2024 11:20:28 05/20/2024 text/html Patient is a 53-year-old female seen in follow-up for surgical debridement of a left index finger cyst performed 05/07/2024. She has realized since last night, that with milking the finger, she can reduce continued drainage from the cyst. She has minimal pain. At baseline, she has minimal active Bebe Latif MD [address], [place], [address], [facility] 05/20/2024 15:44:23 06/19/2024 text/html I am seeing the patient today under the supervision of dr latif who was available but who did not see the patient. DX:Status post left index finger debridement of cyst 4Chronic sinus tract HPI:53-year-old female here for a wound check. Patient continues to have constant drainage from her cystic wound. I spoke with Dr. Luz. She believes that she has underlying rheumatoid disease. She needs proper treatment before she can deep debridement and close her wound. Otherwise, she will continue with synovial drainage. Patient reports that she saw a rheumatoid provider many years ago and was told she did not have rheumatoid disease. I advised her to make another appointment for reevaluation. Unfortunately, she is unable take anti-inflammatories because she has esophageal varices. Past family, medical, social history and review of systems has been reviewed, updated and is located in the patient? s chart. Examination: Alert and oriented ? 3 . No acute distress. Nonantalgic gait.Examination of the index finger reveals a 84 cm open wound along the ulnar aspect of her finger. Persistent synovial drainage noted. No signs of infection. Limited digital range of motion. Digital nerves are intact. Light touch. CAPILLARY refill. Contralateral and X-rays ordered, obtained and reviewed at [facility]-None Impression/Plan:Find ings and the situation discussed. Patient will follow up with a certified nuclear medicine technologist to discuss possible inflammatory arthritis that may be causing her persistent synovial drainage. Dr. Luz to debride and close her cystic wound when she is probably treated. Milton Miranda PA-C [address], [place], [address], [facility] 06/19/2024 09:51:13 07/15/2024 text/html Status post left index finger debridement of cyst 05/07/2024 with Chronic sinus tract Patient is a 53-year-old female well-known to me having undergone a prior left index finger complex flexor tenosynovectomy in 2017 which was found to have a candidal infection and was treated with the assistance of [facility] infectious disease with antifungal medications. More recently, she underwent excision of a small cyst on the ulnar border of the left index finger in April, but has had challenges with continued drainage which is stemming from the flexor tendon sheath proximally. She has had no fevers or chills. Bebe Latif MD [address], [place], [address], [facility] 07/15/2024 12:40:23 OBGyn Episode No OBEpisode recorded.
--- OUTSIDE RECORDS SUMMARY | 2025-01-09 12:13 | XMS_ITS | Clinical Summary ---
Author Organization [facility] [employer] [facility] it Address [address] [place] [address] Care Team Providers Care Sheep Farm Worker Name Role Phone Cassius Strong MD Primary Care Provider Surgical History Surgery Date Site/Laterality Comments HYSTERECTOMY PROCEDURE: HISTORICAL HYSTERECTOMY FOOT SURGERY PROCEDURE: HISTORICAL FOOT SURGERY APPENDECTOMY PROCEDURE: HISTORICAL APPENDECTOMY Medical History Medical History Date Comments Brugada syndrome 08/01/2017 DX:Brugada synd adam Chronic obstructive pulmonar y disease ([facility]) 07/07/2017 DX:Chronic obstructive pulmo nary disease ([facility]) Diabetes mellitus type 2, uncomplicated DX:Diabetes mellitus type 2, uncomplicated ([facility]) GERD (gastroesophageal reflux disease) 08/17/2017 DX:GERD (gastroesophageal reflux disease) History of pancreatitis 11/10/2017 DX:Histo ry of pancreatitis Hyperlipidemia 08/17/2017 DX:Hyperlipidemi a Hypogammaglobulinemia ([facility]) 08/01/2017 DX:Hypogammaglobulinemia ([facility]) Hypothyroidism 08/17/2017 DX:Hypothyroidis m 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[facility]) 08/01/2017 DX:Neuro myopathy ([facility]) Obesity 05/05/2017 DX:Obesity Obstructive sleep apnea syndrome 08/01/2017 DX:Obstructive sleep apnea syndrome; COMMENT: BiPAP Osteoarthritis 08/17/2017 DX:Osteoarthriti s Port-A-Cath in place 11/10/2017 DX:Port-A-C ath in place RA (rheumatoid arthritis) ([facility]) 08/17/2017 DX:RA (rheumatoid arthritis) ([facility]) Severe persistent asthma dep endent on systemic [...] age to complete this topic Care Teams Sheep Farm Worker Relationship Specialty Start Date End Date Cassius Strong MD [address] [place] [address] [address] CONSTANCE Alvarez PCP - General 04/15/11
== END 2025-01-09 09:50 | disposition home or self-care (01) ==
LOC: HO.XRAY 09:49
PROVIDERS: PCP Internal Medicine; Visit Provider Physical Medicine & Rehabilitation
DX: M25.551 Pain in right hip (principal); M54.9 Dorsalgia, unspecified; M51.360 Other intervertebral disc degeneration, lumbar region with discogenic back pain only; M41.9 Scoliosis, unspecified
CPT/HCPCS: 72082; 72100; 73502

== ENCOUNTER → 2025-01-09 09:59 | Outpatient (BNV) | payer OTHER, SELFPAY | PROVIDERS: PCP Internal Medicine; Visit Provider Radiology Diagnostic Radiology | DX: M25.551 Pain in right hip (principal); M54.9 Dorsalgia, unspecified | CPT/HCPCS: 72082; 72100; 73502 ==

== ENCOUNTER 2025-01-21 11:17 | Outpatient (AMB) | payer OTHER, SELFPAY ==
--- NOTE | 2025-01-21 11:17 | A.OFFVIS_ITS ---
Intake Visit Reasons: TEL- B/L side back pain Intake Note: Deysi is a 54 year old female who presents today for a telephone follow up of her bilateral back pain Allergies cephalexin Allergy (Severe, Verified 01/21/25 11:18) Difficulty Breathing latex [LATEX] Allergy (Severe, Verified 01/21/25 11:18) Difficulty Breathing levofloxacin [From LEVAQUIN] Allergy (Severe, Verified 01/21/25 11:18) SHORTNESS OF BREATH, RASH, rash morphine [MORPHINE] Allergy (Severe, Verified 01/21/25 11:18) RASH, asthma exacerbation, rash baclofen [BACLOFEN] Allergy (Intermediate, Verified 01/21/25 11:18) Rash celecoxib [Celebrex] Allergy (Intermediate, Verified 01/21/25 11:18) itching, rash, flushing prednisone [PREDNISONE] Allergy (Intermediate, Verified 01/21/25 11:18) RASH, asthma exacerbation, rash codeine Allergy (Unknown, Verified 01/21/25 11:18) Rash gluten [GLUTEN] Allergy (Unknown, Verified 01/21/25 11:18) UNKNOWN oxycodone Allergy (Unknown, Verified 01/21/25 11:18) rash ranitidine Allergy (Unknown, Verified 01/21/25 11:18) unknown roflumilast [Daliresp] Allergy (Unknown, Verified 01/21/25 11:18) rash tramadol [TRAMADOL] Allergy (Unknown, Verified 01/21/25 11:18) RASH,SHORTNESS OF BREATH AND HEADACHE, asthma exacerbation, rash celery Allergy (Verified 01/21/25 11:18) Rash cyclobenzaprine [From Flexeril] Allergy (Verified 01/21/25 11:18) Rash and asthma exacerbation environmental allergies Allergy (Verified 01/21/25 11:18) Cleaning products cause asthma attack pineapple Allergy (Verified 01/21/25 11:18) Rash strawberry Allergy (Verified 01/21/25 11:18) Rash sulfamethoxazole [From Bactrim] Adverse Reaction (Intermediate, Verified 01/21/25 11:18) vertigo trimethoprim [From Bactrim] Adverse Reaction (Intermediate, Verified 01/21/25 11:18) vertigo diazepam [From Valium] Adverse Reaction (Verified 01/21/25 11:18) Cough HPI Comments Details: History of DM, persistent asthma, weakened immune system, recent left hand infection, history of right ELIZA and THR, lumbar disc disease and scoliosis. Used to go to [facility], had facet and SI joint injections. Difficulty with injection due to arthritis, 2021. Scoliosis noted during adulthood. Right leg shorter than left after hip replacement/revision. Right leg still hurts, hip clicks. Right bunion surgery at [facility], 6 years ago. 1 year ago, had cellulitis and plate was removed from big toe. Still has plate on 2nd toe. Has appointment at [facility] in January. She takes dilaudid for the past 4 years at least, prescribed by Dr. Strong. Right thigh/hip and numbness, chronic, even before the hip replacement. Does not radiate down to below the knee. No numbness on feet, no history of neuropathy. Slow walk. Leans to right side. No foot drop. She tends to trip on canes. Walkers worsens back pain. Telehealth today to discuss x-ray results. 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 Portal hypertension HTN (hypertension) Anemia Chronic restrictive lung disease Brugada syndrome Shortness of breath Encounter for care related to Port-a-Cath Tinea pedis Recurrent cellulitis of lower extremity CHARLES (obstructive sleep apnea) Hypogammaglobulinemia Cellulitis of both lower extremities Right hip pain Lumbar degenerative disc disease Benign essential hypertension Asthma Acquired hypothyroidism Pure hypercholesterolemia Hx of cataract Osteopenia Osteoarthritis of hip Gastritis Surgical History History of revision of total replacement of right hip joint (~12/2019) Hx of hand surgery History of removal of Port-a-Cath History of total right hip arthroplasty (~06/03/19) History of eye surgery (~09/2017) History of hip surgery Hx of foot surgery (~01/02/19) History of removal of cyst Hx of left knee surgery History of elbow surgery (~07/2016) Hx of thumb surgery Hx of appendectomy Hx of hysterectomy (~07/2011) Hx of bilateral breast reduction surgery Family History Father Leukemia Mother Hypertension Diabetes Sister Alive and well Brother Pancreatic cancer Paternal Grandmother Stomach cancer Paternal Grandmother Throat cancer Social History Household Members: Family Housing: Apartment Do you presently have visiting nurse or other home services: No Alcohol intake: never Comment: refused bed alarm Patient Tobacco Use Status: Never used Tobacco e-Cigarette/Vaping Use: Never Used Second Hand Smoke Exposure: No Advance Directives Date on File: 10/02/23 service: No Current occupational status: disabled Current occupation: rt handed Cognitive needs: No Hearing needs: No Vision needs: No Telehealth Telehealth Telehealth Platform: Telephone Location of provider rendering services: practice address Location of patient: address on file Patient Identification confirmed using: Name, : Yes Telehealth method: voice only Patient verbally consented to treatment: Yes Patient verbally consented to billing insurance company: Yes Patient informed of any privacy concerns related to visit: Yes Minutes spent on Phone/Video with Pt.: 15 Results Reviewed Results Reviewed: Ordering Physician: Jacqueline aDniel Date of Service: 01/09/25 Procedure(s): XR scoliosis survey Accession Number(s): [id number] cc: Cassius Strong MD; Jacqueline Hamilton CLINICAL HISTORY: M25.551 - Pain in right hip Scoliosis study Comparison: None Findings: 45 degrees dextroscoliosis lower thoracic and lumbar spine. Degenerative change noted in the lumbar spine. Right hip prosthesis partially visualized. Impression: Dextroscoliosis as above Ordering Physician: Jacqueline Daniel Date of Service: 01/09/25 Procedure(s): XR lumbar spine 2-3V Accession Number(s): [id number] cc: Cassius Strong MD; Jacqueline Hamilton EXAMINATION: XR LUMBOSACRAL SPINE CLINICAL INFORMATION: M54.9 - Dorsalgia, unspecified COMPARISON: January 09, 2025. TECHNIQUE: Three views of the lumbosacral spine. FINDINGS: There is a levoconvex rotoscoliosis apex at L4 and a dextroconvex scoliosis apex at T12-L1. Marginal formation and endplate sclerosis decreased intervertebral disc height at L4-5 and L5-S1 level. There is incomplete ankylosis L2 L4. No acute cortical disruption or gross malalignment. Metallic prosthesis no within the [id number]-[id number] in the right hip. Sclerosis and the sacroiliac joints. XR/XR lumbar spine 2-3V IMPRESSION: Moderate to severe thoracolumbar scoliosis resulting in incomplete ankylosis L2 L4 without acute fracture or gross listhesis. Electronically signed by: Marcos Tatum MD 01/09/2025 12:26 PM EDT RP Ordering Physician: Jacqueline Daniel Date of Service: 01/09/25 Procedure(s): XR hip RT w PEL1V Accession Number(s): [id number] cc: Cassius Strong MD; Jacqueline Daniel~ EXAMINATION: XR HIP, RIGHT CLINICAL INFORMATION: M25.551 - Pain in right hip COMPARISON: 06/28/2021. TECHNIQUE: AP pelvis, and 3 views right hip. FINDINGS: There has been a total right hip arthroplasty. Femoral, acetabular components are intact, well seated, in anatomic alignment. No periprosthetic lucency to suggest loosening. No evidence of abnormal polyethylene wear. No subsidence. Appearance is unchanged from 2020. Mild heterotopic bone formation abutting the superolateral greater trochanter. Degenerative changes in the r bilateral SI joints. Sacrum appears intact. Mild arthritis in the left hip joint with normal alignment. Degenerative changes in the lower lumbar spine with endplate sclerosis at L5-S1. No discrete soft tissue abnormality. XR/XR hip RT w PEL1V IMPRESSION: Right hip arthroplasty without definite complication. Electronically signed by: Quinton Smith MD 01/09/2025 03:00 PM EDT RP Assessment & Plan Assessment & Plan (1) Scoliosis: Code(s): M41.9 - Scoliosis, unspecified Category: Medical Qualifiers: Scoliosis type: other secondary scoliosis Spinal region: lumbosacral Qualified Code(s): M41.57 - Other secondary scoliosis, lumbosacral region (2) Sacroiliac joint dysfunction of right side: Code(s): M53.3 - Sacrococcygeal disorders, not elsewhere classified Category: Medical Plan Telehealth today to discuss results. Patient has no video capability on the phone, telephone encounter done instead. Scoliosis x-ray measured 45 degrees. Lumbar x-ray mentioned disc space narrowing L4-5. Hip x-ray shows prosthesis in place. Also showed SI joint degeneration. On last visit, patient did have SI joint tenderness. Confirmed by x-ray as above. We talked about possibly doing SI joint injection. Patient amenable to referral to pain management. She wants to try a walker. Wrote prescription for walker with wheels and seat. Assessment and plan discussed with patient, and patient was agreeable. All questions were answered thoroughly. Jacqueline Abrams MD, SHARI Board Certified, [place] [employer] and Rehabilitation (ABPMR) Board Certified, [place] Board [employer] Electrodiagnostic Medicine (ABEM) Orders: Referrals Pain Management Referral M41.57 - Other secondary scoliosis, lumbosacral region, M53.3 - Sacrococcygeal disorders, not elsewhere classified Medications: New walker walker with wheels and seat 1 ea 0RF Coding Level of Care Code Tele New Pt Level 3 (18158) Diagnoses Other secondary scoliosis, lumbosacral region M41.57 Scoliosis type: other secondary scoliosis Spinal region: lumbosacral Sacroiliac joint dysfunction of right side M53.3
--- OUTSIDE RECORDS SUMMARY | 2025-01-21 13:48 | XMS_ITS | Patient Health Record ---
Author Organization [facility] Address [address] [place] [address] Care Team Providers Care Asbestos Coverer Name Role Phone Cassius Strong Primary Care Provider Colin Mercado Unavailable [phone] ALLERGIES Allergen (clinical drug ingredient) Drug/Non Drug Allergy documented on EMR Reaction Allergy Type Onset Date Status Apples/[place]/Leda ts/Pineapple/Strawb erry/Onion (uncoded) Unknown Allergy Active Gluten [...] out er thigh IM prn Active Ipratropium Sims 0.02 % Inhalation Active Medrol 16 MG [...] Notes Problem Food allergy (Z91.018) Active confirmed 632936441 Problem 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) Active confirmed 601059010 Problem Osteopenia (M85.80) Active confirmed [id number] Problem Severe persistent asthma, uncomplicated (J45.50) Active confirmed 435343310 Problem Pancreatitis (K85.9) Active confirmed 33593993 Problem Steroid-dependent asthma (J45.909) Active confirmed [id number] Problem Insulin dependent diabetes mellitus with complications (E11.8) Active confirmed 95578916 Problem Myasthenia gravis (G70.00) Active confirmed [id number] PLAN OF TREATMENT No Information Insurance Providers Payer Name Payer Address Payer Phone Subscriber Number Group Number Insured Name Patient Relationship to Insured Coverage Start Date Coverage End Date Medicare/[facility] [employer] [address] [place] [phone] [id number] Kala Deysi Self - patient is the insured Medicaid [address] [place] [address] [phone] [id number] Deysi Armendariz Self - patient is the [...]
--- OUTSIDE RECORDS SUMMARY | 2025-01-21 13:48 | XMS_ITS | Clinical Summary ---
Author Organization [facility] it Address [address] [place] [address] Care Team Providers Care Capital Project Engineer Name Role Phone Cassius Strong MD Primary Care Provider [phone] Surgical History Surgery Date Site/Laterality Comments HYSTERECTOMY PROCEDURE: HISTORICAL HYSTERECTOMY FOOT SURGERY PROCEDURE: HISTORICAL FOOT SURGERY APPENDECTOMY PROCEDURE: HISTORICAL APPENDECTOMY Medical History Medical History Date Comments Brugada syndrome 08/01/2017 DX:Brugada synd adam Chronic obstructive pulmonar y disease ([facility]) 07/07/2017 DX:Chronic obstructive pulmo nary disease ([facility]) Diabetes mellitus type 2, uncomplicated DX:Diabetes mellitus type 2, uncomplicated ([facility]) GERD (gastroesophageal reflux disease) 08/17/2017 DX:GERD (gastroesophageal reflux disease) History of pancreatitis 11/10/2017 DX:Histo ry of pancreatitis Hyperlipidemia 08/17/2017 DX:Hyperlipidemi a Hypogammaglobulinemia ([facility]) 08/01/2017 DX:Hypogammaglobulinemia ([facility]) Hypothyroidism 08/17/2017 DX:Hypothyroidis m 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[facility]) 08/01/2017 DX:Neuro myopathy ([facility]) Obesity 05/05/2017 DX:Obesity Obstructive sleep apnea syndrome 08/01/2017 DX:Obstructive sleep apnea syndrome; COMMENT: BiPAP Osteoarthritis 08/17/2017 DX:Osteoarthriti s Port-A-Cath in place 11/10/2017 DX:Port-A-C ath in place RA (rheumatoid arthritis) ([facility]) 08/17/2017 DX:RA (rheumatoid arthritis) ([facility]) Severe persistent asthma dep endent [...] age to complete this topic Meningococcal B Vaccine Aged Out No l onger eligible based on patient's age to complete [...] age to complete this topic Care Teams Capital Project Engineer Relationship Specialty Start Date End Date Cassius Strong MD [address] [place] [address] Dr [address] CONSTANCE Alvarez PCP - General 04/15/11
== END 2025-01-21 11:31 | disposition home or self-care (01) ==
LOC: HO.HOS 11:17
PROVIDERS: PCP Internal Medicine; Visit Provider Physical Medicine & Rehabilitation
DX: M41.57 Other secondary scoliosis, lumbosacral region (principal); M53.3 Sacrococcygeal disorders, not elsewhere classified
CPT/HCPCS: 99213

== ENCOUNTER 2025-01-30 10:32 | Outpatient (AMB) | payer OTHER, SELFPAY ==
--- NOTE | 2025-01-30 10:33 | A.OFFVIS_ITS ---
Vital Signs 01/30/25 10:52 Height 5 ft 4 in Weight 233 lb 0.458 oz BMI 40.0 BP 140/76 H Blood Pressure Location Rt brachial Position Sitting Pulse 73 Pulse Source Pulse Oximeter Pulse Oximetry (%) 96 Oxygen Delivery Method Room Air Intake Visit Reasons: T1DM Intake Note: Patient present today to follow up on Type 1 Diabetes Mellitus. Last Diabetic Eye exam: 05/2024 Last Podiatry Visit: does not see one Random Glucose: 158 mg/dl HgA1C:9.8% Processing Supervisor Required: No Accompanied by: Self / Same As Patient Allergies cephalexin Allergy (Severe, Verified 01/30/25 10:55) Difficulty Breathing latex [LATEX] Allergy (Severe, Verified 01/30/25 10:55) Difficulty Breathing levofloxacin [From LEVAQUIN] Allergy (Severe, Verified 01/30/25 10:55) SHORTNESS OF BREATH, RASH, rash morphine [MORPHINE] Allergy (Severe, Verified 01/30/25 10:55) RASH, asthma exacerbation, rash baclofen [BACLOFEN] Allergy (Intermediate, Verified 01/30/25 10:55) Rash celecoxib [Celebrex] Allergy (Intermediate, Verified 01/30/25 10:55) itching, rash, flushing prednisone [PREDNISONE] Allergy (Intermediate, Verified 01/30/25 10:55) RASH, asthma exacerbation, rash codeine Allergy (Unknown, Verified 01/30/25 10:55) Rash gluten [GLUTEN] Allergy (Unknown, Verified 01/30/25 10:55) UNKNOWN oxycodone Allergy (Unknown, Verified 01/30/25 10:55) rash ranitidine Allergy (Unknown, Verified 01/30/25 10:55) unknown roflumilast [Daliresp] Allergy (Unknown, Verified 01/30/25 10:55) rash tramadol [TRAMADOL] Allergy (Unknown, Verified 01/30/25 10:55) RASH,SHORTNESS OF BREATH AND HEADACHE, asthma exacerbation, rash celery Allergy (Verified 01/30/25 10:55) Rash cyclobenzaprine [From Flexeril] Allergy (Verified 01/30/25 10:55) Rash and asthma exacerbation environmental allergies Allergy (Verified 01/30/25 10:55) Cleaning products cause asthma attack pineapple Allergy (Verified 01/30/25 10:55) Rash strawberry Allergy (Verified 01/30/25 10:55) Rash sulfamethoxazole [From Bactrim] Adverse Reaction (Intermediate, Verified 01/30/25 10:55) vertigo trimethoprim [From Bactrim] Adverse Reaction (Intermediate, Verified 01/30/25 10:55) vertigo diazepam [From Valium] Adverse Reaction (Verified 01/30/25 10:55) Cough HPI Comments Details: The patient is a 53-year-old female who was seen today follow-up for LORNE type 1 diabetes. She has positive anti daphnie D5 antibody. She was last seen 03/15/24 with an A1C of 8.4%. She was previously seen by Dr. Mahan for polycystic ovary syndrome and hypothyroidism she has had prior episodes of pancreatitis in the past. She has declined going on a sensor in the past. She is not longer on metformin. She was initially diagnosed with diabetes approximately 2015 and was treated with metformin. Tresiba 7 unit units Fiasp 18-20 times per day occasionally takes a higher dose if she is in the 300 range. took 20 units this am sugar was 222 now 158 She checks her sugar: Average sugar:1-2 times per day 200+ She is family history of type 2 diabetes: Mother with type 2 Brother with type 1 diagnosed in childhood Her last eye examination was 07/09, she denies retinopathy. scheduled this year Denies nephropathy, she is on an ARB. Denies numbness, tingling, cramping in the legs She has HLD, on statin, denies CAD She was last seen by the paraeducator 06/23/22. Diet: She has seen a spray crew in the past and declines referral. She is gluten intolerant and has other dietary intolerances. [facility], [facility] Medical History (Updated 01/21/25 @ 11:28 by Jacqueline Abrams MD) Back pain Renal insufficiency Obesity (BMI 30-39.9) Mitochondrial myopathy Diabetes mellitus Portal hypertensive gastropathy Esophageal varices determined by endoscopy Portal hypertension HTN (hypertension) Anemia Chronic restrictive lung disease Brugada syndrome Shortness of breath Encounter for care related to Port-a-Cath Tinea pedis Recurrent cellulitis of lower extremity CHARLES (obstructive sleep apnea) Hypogammaglobulinemia Cellulitis of both lower extremities Right hip pain Lumbar degenerative disc disease Benign essential hypertension Asthma Acquired hypothyroidism Pure hypercholesterolemia Hx of cataract Osteopenia Osteoarthritis of hip Gastritis Surgical History History of revision of total replacement of right hip joint (~12/2019) Hx of hand surgery History of removal of Port-a-Cath History of total right hip arthroplasty (~06/03/19) History of eye surgery (~09/2017) History of hip surgery Hx of foot surgery (~01/02/19) History of removal of cyst Hx of left knee surgery History of elbow surgery (~07/2016) Hx of thumb surgery Hx of appendectomy Hx of hysterectomy (~07/2011) Hx of bilateral breast reduction surgery Family History Father Leukemia Mother Hypertension Diabetes Sister Alive and well Brother Pancreatic cancer Paternal Grandmother Stomach cancer Paternal Grandmother Throat cancer Social History Household Members: Family Housing: Apartment Do you presently have visiting nurse or other home services: No Alcohol intake: never Comment: refused bed alarm Patient Tobacco Use Status: Never used Tobacco e-Cigarette/Vaping Use: Never Used Second Hand Smoke Exposure: No Advance Directives Date on File: 10/02/23 service: No Current occupational status: disabled Current occupation: rt handed Cognitive needs: No Hearing needs: No Vision needs: No Physical Exam Vital Signs: Last Vital Signs Pulse 73 01/30/25 10:52 BP 140/76 H 01/30/25 10:52 Pulse Ox 96 01/30/25 10:52 Oxygen Delivery Method Room Air 01/30/25 10:52 BMI result Body Mass Index 40.0 Const Other: Absence of Cushingoid features. Absence of acromegalic features. Neck exam reveals nl size thyroid about 15 gms. No thyroid nodules palpable. No carotid bruits present. Lungs CTA. Heart S1 S2, Reg R/R. No M/R G. Skin exam reveals absence of vitiligo or acanthosis nigricans. No edema Visual exam of foot performed. No ulcerations or open lesions. No inter digit maceration or fissuring. No onychomycosis, no callouses. Sensation intact to monofilament exam. Vibratory sensation is normal with 128 Hz tuning fork. Results AMB Hemoglobin A1c AMB Hemoglobin A1c 9.8 % Last Edit by ARIC Bravo on 01/30/25 11:17 Results Reviewed Results Reviewed: Laboratory Last Values Glucose (Clinic) 158 mg/dL (60-115) H 01/30/25 11:05 Assessment & Plan Assessment & Plan Orders: Orders AMB Hemoglobin A1c Today E13.9 - Other specified diabetes mellitus without complications Basic Metabolic Panel Today E10.65 - Type 1 diabetes mellitus with hyperglycemia Thyroid Stimulating Hormone Today E10.65 - Type 1 diabetes mellitus with hyperglycemia Free T4 (Free Thyroxine) Today E10.65 - Type 1 diabetes mellitus with hyperglycemia Coding
[2025-01-30 10:52] VITALS: BP 140/76; PULSE 73; O2SAT 96; BMI 40.0
[2025-01-30 11:11] LABS: Glucose, Whole Blood 158 mg/dL (60-115)
--- OUTSIDE RECORDS SUMMARY | 2025-01-30 12:41 | XMS_ITS | Patient Health Record ---
Author Organization [facility] Address [address] [place] [address] Care Team Providers Care Senior Risk Analyst Name Role Phone Cassius Strong Primary Care Provider Colin Mercado Unavailable [phone] ALLERGIES Allergen (clinical drug ingredient) Drug/Non Drug Allergy documented on EMR Reaction Allergy Type Onset Date Status Apples/[place]/Leda ts/Pineapple/Strawb erry/Onion (uncoded) Unknown Allergy Active Gluten [...] out er thigh IM prn Active Ipratropium [place] 0.02 % Inhalation Active Medrol 16 MG [...] Notes Problem Food allergy (Z91.018) Active confirmed 291952377 Problem 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) Active confirmed 736126605 Problem Osteopenia (M85.80) Active confirmed 146505262 Problem Severe persistent asthma, uncomplicated (J45.50) Active confirmed 083524543 Problem Pancreatitis (K85.9) Active confirmed 00467812 Problem Steroid-dependent asthma (J45.909) Active confirmed [id number] Problem Insulin dependent diabetes mellitus with complications (E11.8) Active confirmed 28469569 Problem Myasthenia gravis (G70.00) Active confirmed 25938332 PLAN OF TREATMENT No Information Insurance Providers Payer Name Payer Address Payer Phone Subscriber Number Group Number Insured Name Patient Relationship to Insured Coverage Start Date Coverage End Date Medicare/[facility] [employer] [address] [place] [phone] [id number] Kala Deysi Self - patient is the insured Medicaid [address] [place] [address] [phone] [id number] Deysi Armendariz Self - patient is the [...]
--- OUTSIDE RECORDS SUMMARY | 2025-01-30 12:42 | XMS_ITS | Clinical Summary ---
Author Organization [facility] it Address [address] [place] [address] Care Team Providers Care Merchandiser Name Role Phone Cassius Strong MD Primary Care Provider Surgical History Surgery Date Site/Laterality Comments HYSTERECTOMY PROCEDURE: HISTORICAL HYSTERECTOMY FOOT SURGERY PROCEDURE: HISTORICAL FOOT SURGERY APPENDECTOMY PROCEDURE: HISTORICAL APPENDECTOMY Medical History Medical History Date Comments Brugada syndrome 08/01/2017 DX:Brugada synd adam Chronic obstructive pulmonar y disease ([facility] V24, [facility] V28) 07/07/2017 DX:Chronic obstructive pulm onary disease (HCC) Diabetes mellitus type 2, un complicated ([facility] V24, [facility] V28) 08/17/2017 DX:Diabetes mellitus type 2 , uncomplicated (HCC) GERD (gastroesophageal reflux disease) 08/17/2017 DX:GERD (gastroesophageal reflux disease) History of pancreatitis 11/10/2017 DX:Histo ry of pancreatitis Hyperlipidemia 08/17/2017 DX:Hyperlipidemi a Hypogammaglobulinemia ([facility] V24) 08/01/2017 DX:Hypogammaglobulinemia (HCC) Hypothyroidism 08/17/2017 DX:Hypothyroidis m 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[facility] V24, [facility] V28) 017 DX: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HCC) Obesity 05/05/2017 DX:Obesity Obstructive sleep apnea syndrome 08/01/2017 DX:Obstructive sleep apnea syndrome; COMMENT: BiPAP Osteoarthritis 08/17/2017 DX:Osteoarthriti s Port-A-Cath in place 11/10/2017 DX:Port-A-C ath in place RA (rheumatoid arthritis) ([facility] V24, [facility] V28) 08/17/2017 DX:RA (rheumatoid arthritis) (HCC) Severe persistent asthma dep endent on systemic steroids ([facility] V28) 11/10/2017 DX:Severe persistent a sthma dependent on systemic steroids Supplemental oxygen dependent [...] - 2023-2 5 season) 2024 Influenza Vaccine (Season Ended) 2025 HIB Vaccines Aged Out No longer eligi [...] age to complete this topic Care Teams Merchandiser Relationship Specialty Start Date End Date Cassius Strong MD [address] [place] [address] [address] CONSTANCE Alvarez PCP - General 04/15/11
--- OUTSIDE RECORDS SUMMARY | 2025-01-30 12:42 | XMS_ITS | Data Portability ---
Author Organization [facility], [facility] Address [address] [place] [address] Care Team Providers Care Sales And Management Trainee Name Role Phone SYL ESTRADA Primary Care Provider [phone] Assessment Encounter Date Assessment Date Assessment LastModified [...] prescribed by the infectious disease group at [facility] Concern for recurrent infection at this time Plan: Wound cultures are taken today. Dressings reapplied. Plan is made for surgical debridement of the left index finger and formal tissue collection for culture. In addition, I would like to reestablish her care with [facility] infectious diseases. Referral is made to their [...] satisfaction; surgery to be scheduled with my school secretary. [email or web address] Not available 07/15/2024 11:12:48 01/09/2025 01/09/2025 CC: Previous lef t elbow dislocation and left arm subcutaneous masses HPI: 51-year-old female who initially had a left elbow dislocation 2013. She was treated with a closed reduction. She was rehabbed. She ended up going to surgery on December 09, 2015 for removal of loose bodies around the elbow. These were found to be infarcted fat. She also had another resection done in the hand that showed similar pathology. Dr. Latif also has done a tenosynovectomy on the hand. She is now here for increased pain in the left elbow. She notes multiple subcutaneous masses. She has a fair bit of pain from the ones around the elbow. She has had more form in the forearm. There are don't really bother her in particular. She states that her pain is worst over the distal biceps tendon. She has some discomfort with heavy lifting. She also relates a story of having a hand infection that had to be washed out in [place]. She had a previous fungal infection treated by Dr. Tomlin. She needs a follow-up with her as well. Past medical history: Hypothyroidism, asthma, hypertension, Brugada syndrome, diabetes, gastritis, revision right total hip replacement, hypogammaglobulin emia, mitochondrial myopathy, obstructive sleep apnea, hypercholesterole ines, cellulitis, eye surgery, appendectomy, breast reduction surgery, foot surgery, hysterectomy, thumb surgery, left knee surgery Medications: Albuterol, atorvastatin, fasenra, vitamin D3, iron, ipratropium in bromide, Gammagard, albuterol, loratadine, losartan, metformin, metoprolol, montelukast cast, omeprazole, Zofran, Synthroid, tizanidine, ellipta, Dilaudid Allergies: Latex, Levaquin, morphine, baclofen, Celebrex, prednisone, codeine, gluten, oxycodone, ranitidine,dalire sp,, tramadol, Keflex, celery, pineapple, strawberries Social history: Nonsmoker/nondrin ker Family history: Family history of disease Past family, medical, social history and review of systems has been reviewed, updated and is located in the patient? s chart. Examination: 51-year-old female in no apparent distress. She has full range of motion of her left elbow. There is no gross instability. She has full pronation and supination. 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 There is Tenderness over the biceps tendon insertion. It is intact. She has good range of motion of her fingers. It does not feel like there is anything intra-articular. She has normal pulses and sensation. She has scarring from previous finger tenosynovectomy. X-rays ordered, obtained and reviewed at [facility]: Previous Left elbow series shows heterotopic ossification around the elbow. The previous radial head fracture is seen. Small calcifications are seen about the elbow and the forearm. There is no significant change from previous x-rays. Impression: Left elbow dislocation, biceps tendinitis and subcutaneous masses Plan: I recommended stretching and topical use of Voltaren gel or Biofreeze. These will help with symptomatic relief. She should avoid lifting heavy objects before warming up. I anticipate that her symptoms will be self-limiting. She will also schedule a follow-up appointment with the hand team to review her fingers. She has some residual stiffness from her previous infections and treatments. [employer] speech recognition architectural technician software was used to create portions of this document. An attempt at proofreading has been made to minimize errors. Please call for corrections. [email or web address] Not available 01/09/2025 16:55:19 Plan of Treatment Reminders Order Date Submit Date Provider Last Modified By Organization Details Last Modified Time Details Appointments RECHECK 2024 02:45P M Bebe albert MD Not available Not available Not available MED CLEAR ONLY 2024 01:00P M Kasandra Alberts MD Not available Not available Not available [facility] 07:30A M Kasandra Alberts MD Not available Not available Not available DAISY POST OP 2024 01:45P M Cast Room Not available Not available Not available POST OP 2024 01:30P M Destiny Oliver PA-C Not available Not available Not available POST OP 2024 01:00P M Kasandra Alberts MD Not available Not available Not available Lab culture , wound 2023 024 VICKI [facility] (Centralized Electronic Ordering - All Locations), Patient Can Go To The Location Of Their Choice, [id number] 07/16/2024 06:52:48 fungus, culture , wound - wound Left index finger 2023 024 VICKI [facility] (Centralized Electronic Ordering - All Locations), Patient Can Go To The Location Of Their Choice, [id number] 07/22/2024 08:52:31 Referral None recorde d. Procedures None recorde d. Surgeries orthopa edic surgery (SURG) 2024 025 [facility], [address], [place], [address], 01/21/2025 12:43:31 Imaging XR, ankle + foot - room 102 new R 3v foot 2v ankle 2024 025 [email or web address] [facility], [address], [place], [address], 01/23/2025 15:53:05 XR, elbow, 3 or more view - 307 3V LEFT ELBOW 2024 025 [email or web address] [facility], [address], [address], [place], [address], 01/27/2025 08:29:39 Medication Orders None recorde d. Patient TargetsNo targets recorded. Patient InstructionsNo instructions recorded. Reason for Referral None Reported. Results Created Date Observation Date Name Description Value Unit Range Abnormal Flag Note LastModifiedBy Organization Detail LastModifiedTime 04/25/2004/26/2024 ELECT ROLYT E PANEL sodium 140 mmol/ L 134-14 4 normal Not Available [facility] ([facility]) [address] [place], [address], 05/01/2024 00:05:22 04/25/2004/26/2024 ELECT ROLYT E PANEL potassium 4.1 mmol/ L 3.5-5. 2 normal Not Available [facility] ([facility]) [address] [place], [address], 05/01/2024 00:05:22 04/25/2004/26/2024 ELECT ROLYT E PANEL chloride 104 mmol/ L 96-106 normal Not Available [facility] ([facility]) [address] [facility], [place], [address], 05/01/2024 00:05:22 04/25/20 24 04/26/2024 ELECT ROLYT E PANEL carbon dioxide, total 20 mmol/ L 20-29 normal Not Available [facility] ([facility]) [address] [facility], [place], [address], 05/01/2024 00:05:22 04/25/20 24 04/30/2024 GLUCO SE glucose 122 mg/dL 70-99 above high normal Not Available [facility] ([facility]) [address] [facility], [place], [address], 05/01/2024 00:05:23 05/02/20 24 04/25/2024 rhyth m [...] a4ajBk vP9nXo QUaueC m3YtLR FvZlgJ JJ8mAn HZtai3 0d2861 AC0KqY nWFUaK uKiQtr [facility] INTERFACE [facility] [address], [place], [address], 01/09/2025 08:51:10 01/10/20 25 01/09/2025 XR, elbow , 3 or more view [email or web address] ?Encry pted=s hAaTro YD8dLq bEUv6g %2BXZw aYqtaq 0bqfl% 2Fg9IQ a4ajBk vP9nXo QUaueC m3YtLR FvZlgJ JJ8mAn HZtai3 7o8001 AC0KqY nWFUaK uKiQtr [facility] INTERFACE [facility] [address], [place], [address], 01/09/2025 08:51:12 01/21/20 25 01/20/2025 XR, ankle + foot [email or web address] ?Encry pted=s hAaTro YD8dLq bEUv6g %2BXZw aYqtaq 0bqfl% 2Fg9IQ a4ajBk vP9nXo QUaueC m3YtLR FvZlg JJ8mAn HZtai3 8b1533 AC0KqY 36EU6q gKiQtr MwF INTERFACE [facility] [address], [place], [address], 01/20/2025 13:59:00 01/21/20 25 01/20/2025 XR, ankle + foot [email or web address] ?Encry pted=s hAaTro YD8dLq bEUv6g %2BXZw aYqtaq 0bqfl% 2Fg9IQ a4ajBk vP9nXo QUaueC m3YtLR FvZlgJ JJ8mAn HZtai3 8y5176 AC0KqY 36EU6q gKiQtr Mw[facility] INTERFACE [facility] [address], [place], [address], 01/20/2025 13:59:02 Result Notes None recorded. Problems Name Problem SNOMED Code Status Onset Date Resolution Date Notes Provider Name and Address Organization Details Recorded Time Flexor tenosynov itis of finger 610954087 Active 2024 Cristopher Lazo MD [address], [place], [address] , [facility] 5 08:28:41 Healing fracture Active 2013 Status: 'A'; Not Available [facility] 4 11:43:49 Sprain of ligament of metacarpo phalangea l joint of left thumb 205177142881 15892 Active 2015 Problem Code: S63.642A ; Problem Code Type: ICD-10; Status: 'A'; Not Available [facility] 4 11:43:50 Chondroma lacia of patella 50180951 Active 2010 Status: 'A'; Not Available [facility] 4 11:43:50 Dislocati on of elbow joint 529245232 Active 2023 JESSICA dobbs [facility] 4 08:15:51 Medial epicondyl itis of left elbow joint 649419238914 107 Active 2023 Cristopher Lazo MD [address], [place], [address] , [facility] 4 12:33:04 Hand pain 15505988 Active 2023 JESSICA dobbs [place] [facility] 4 17:31:44 Mass of soft tissue 662455302 Active 2023 JESSICA dobbs [place] [facility] 4 17:40:16 Ganglion cyst of left hand 108500601907 105 Active 2023 JESSICA dobbs [place] [facility] 17:52:37 Problem Notes None recorded. Procedures Surgical History Date Name Laterality Status Provider Name and Address Organization Details Recorded Time EXCISION OF SOFT TISSUE MASS (SURG) completed ANUSHA JONES [place] [facility] 05/08/2024 12:10:27 Elbow Kenalog 1cc Injection, L/R completed Cristopher Lazo MD [address], [place], [address], [place] [facility] 02/08/2024 12:32:41 Imaging Results Imaging Date Name [...] [facility] [address], [place], [address], 01/09/2025 08:51:10 01/09/2025 XR, elbow, 3 or more view completed INTERFACE [facility] [address], [place], [address], 01/09/2025 08:51:12 01/20/2025 XR, ankle + foot completed INTERFACE [facility] [address], [place], [address], 01/20/2025 13:59:00 01/20/2025 XR, ankle + foot completed INTERFACE [facility] [address], [place], [address], 01/20/2025 13:59:02 Procedure Notes None recorded. Medical Equipment None Reported. Allergies Allergen ID Allergen Name Allergen Category Reaction Reaction Severity Criticality Documentation Date Start Date Code Code System Note Provider Name and Address Organization Details Recorded Time 89480 cyclobenz aprine hydrochlo ride medicatio n Not available Not available Not available 12/18/20232012 07798 RxNorm Not Available [facility] 4 13:31:46 05948 doxycycli ne hyclate medicatio n Not available Not available Not available 12/18/20232015 96188 RxNorm Not Available [facility] 4 13:31:46 71393 pineapple extract food Not available Not available Not available 12/18/20232012 23001 74 RxNorm Not Available [facility] 4 13:31:46 69809 strawberr y allergeni c extract food,[facility] cation Not available Not available Not available 12/18/20232012 58958 4 RxNorm Not Available [facility] 4 13:31:46 62754 tramadol hydrochlo ride medicatio n Not available Not available Not available 12/18/20232012 93159 RxNorm Not Available [facility] 4 13:31:46 32128 Levaquin medicatio n Not available Not available Not available 12/18/20232013 22712 2 RxNorm Not Available [facility] 4 13:31:46 76779 wheat gluten extract food Not available Not available Not available 12/18/20232013 02220 81 RxNorm Not Available [facility] 4 13:31:47 91032 acetamino phen / hydrocodo ne medicatio n Not available Not available Not available 12/18/20232013 04921 2 RxNorm Not Available [facility] 4 13:31:47 14044 morphine sulfate medicatio n Not available Not available Not available 12/18/20232012 75124 RxNorm Not Available [facility] 4 13:31:47 08218 codeine medicatio n Not available Not available Not available 12/18/20232012 2670 RxNorm Not Available [facility] 4 13:31:47 31246 latex environme nt,medica tion Not available Not available Not available 12/18/20232010 12597 91 RxNorm Not Available [facility] 13:31:47 Medications Name Sig Start Date Stop [...] tablet TAKE 1 TABLET BY MOUTH DAILY NEEDED FOR BLOOD PRESSURE active Not Available Not Available No t Available tizanidine 2 mg tablet TAKE 2 TABLETS BY MOUTH EVERY NIGHT AT BEDTIME NEEDED FOR MUSCLE SPASM active Not Available Not Available No t [...] DAILY FOR 7 DAYS NEEDED FOR PAIN active Not Available Not Available No t Available doxycycline monohydrate 100 mg capsule TAKE [...] mcg tablet TAKE 2 TABLETS BY MOUTH DAILY active Not Available Not [...] Not Available No t Available amoxicillin 875 mg-potkassandrau m clavulanate 125 mg tablet TAKE 1 [...] Updated DateTime 05/20/2024 160.02 cm 37.2 kg/m2 05441.4 g BRIGITTE GLASGOW [place] [facility] 05/20/2024 13:51:30 Date Recorded Body height Body mass index (BMI) Body weight Provider Name and Address Organization Details Last Updated DateTime 06/19/2024 160.02 cm 37.2 kg/m2 74154.4 g PARAMJIT PINEDA [facility] 06/19/2024 09:29:21 Date Recorded Body height Body mass index (BMI) Body weight Provider Name and Address Organization Details Last Updated DateTime 07/15/2024 160.02 cm 37.2 kg/m2 88893.4 g EMILY ALVAREZN [facility] 07/15/2024 10:06:50 Date Recorded Body height Body mass index (BMI) Body weight Provider Name and Address Organization Details Last Updated DateTime 01/09/2025 160.02 cm 37.2 kg/m2 85225.4 g JESSICA GUDORA [facility] 01/09/2025 08:38:46 Date Recorded Body height Body mass index (BMI) Body weight Provider Name and Address Organization Details Last Updated DateTime 01/20/2025 160.02 cm 37.2 kg/m2 38501.4 g Anusha hoffman [facility] 01/20/2025 13:51:04 Social History None recorded. Functional Status None recorded. Mental Status None recorded. Family History Nothing Reported. Medical History No medical history recorded. Gynecological HistoryNo gynecological history recorded. Obstetrics History GPAL:G 0 P 0 0 0 0 Past Encounters Encounter ID Performer Location Encounter Start Date Encounter Closed Date Diagnosis/Indication Diagnosis SNOMED-CT Code Diagnosis ICD10 Code Diagnosis Note [id number] MD Rosario Jones [address] [place] [address] 02/08/2024 11:29:34 03/01/2024 16:01:59 Dislocation of elbow joint 075180998 S53.105D Medial epi condylitis of left elbow joint 9269057900 69585 M77.02 [id number] JOSSELINE Thorne [address] [place] [address] 03/19/2024 17:19:15 04/23/2024 11:00:07 Hand pain 90336811 M79.261 [id number] Aide Maher, OTR/L,CHT [facility] [address] [place] [address] 05/17/2024 10:28:07 05/17/2024 11:20:34 Ganglion cyst of left hand 2385962014 36974 M67.442 upon removal of the postop dressing, [...] digit is postured in extension. Postoperative care 73398 9007 Z48.89 Sutures are removed today without [...] office visit was complete at 20 minutes. [id number] MD Rosario Manzano [address] [place] [address] 05/13/2024 14:04:13 05/13/2024 15:16:00 Postoperative care 197097987 Z48.89 [id number] MD Rosario Manzano [address] [place] [address] 05/20/2024 13:39:45 06/23/2024 16:19:26 Ganglion cyst of left hand 9315834399 64815 M67.723 [id number] Milton Miranda PA-C [facility] [address] [place] [address] 06/19/2024 09:21:02 07/28/2024 15:12:42 [id number] Bebe saenz MD [facility] [address] [place] [address] 07/15/2024 09:55:05 07/30/2024 08:46:18 Ganglion cyst of left hand 2584057867 85280 M67.442 Flexor ten osynovitis of finger M65.355 [id number] MD UDAY Jones - [facility] [address] [place] [address] 01/09/2025 08:30:52 01/27/2025 08:29:39 Ganglion cyst of left hand 6738712484 57768 M67.442 Flexor ten osynovitis of finger M65.849 Dislocatio n of elbow joint 949052879 S53.105D Medial epi condylitis of left elbow joint 5462466254 54860 M77.02 [id number] MD UDAY Curtis - [facility] [address] [place] [address] 01/20/2025 13:44:45 01/22/2025 17:10:43 Pain in right foot 3408135467 77166 M79.671 Hammer toe 760154978 M20 .41 Arthritis of right foot 6179863767 553685 M19.071 Health Concerns Section Related Observation LastModified by Organization Detai ls LastModified Time None Recorded Concern Status LastModified by Organization Details LastModified Time None Recorded Advance Directives Directive None Recorded Payers Encounter Date Sequence Insurance Name Policy Number Policy Pak Covered Member ID Pak Member ID Guarantor Name 05/20/2024 1 [facility] - DOS ON OR AFTER 2023 - ONE CARE (MEDICARE REPLACEMENT/ADV ANTAGE - HMO) Deysi R Senuta [id number] Deysi R Senuta 06/19/2024 1 [employer] - DOS ON OR AFTER 2023 - ONE CARE (MEDICARE REPLACEMENT/ADV ANTAGE - HMO) Deysi R Senuta [id number] Deysi R Senuta 07/15/2024 1 [employer] - DOS ON OR AFTER 2023 - ONE CARE (MEDICARE REPLACEMENT/ADV ANTAGE - HMO) Deysi R Senuta [id number] Deysi R Senuta 01/09/2025 1 [employer] - DOS ON OR AFTER 2023 - CARE (MEDICARE REPLACEMENT/ADV ANTAGE - HMO) Deysi R Senuta [id number] Deysi R Senuta 01/20/2025 1 [employer] - DOS ON OR AFTER 2023 - CARE (MEDICARE REPLACEMENT/ADV ANTAGE - HMO) Deysi R Senuta [id number] Deysi R Senuta Notes Date Note Type Note Provider Name and Address Organization Details Recorded Time 05/20/2024 text/html Patient is a 53-year-old female seen in follow-up for surgical debridement of a left index finger cyst performed 05/07/2024. She has realized since last night, that with milking the finger, she can reduce continued drainage from the cyst. She has minimal pain. At baseline, she has minimal active Bebe Latif MD [address] [place] [address] [address], [place], [address], [facility] 05/20/2024 15:44:23 06/19/2024 text/html I am seeing [...] s chart. Examination: Alert and oriented ? ? 3 . No acute distress. Nonantalgic gait.Examination of the index finger reveals a 84 cm open wound along the ulnar aspect of her finger. Persistent synovial drainage noted. No signs of infection. Limited digital range of motion. Digital nerves are intact. Light touch. CAPILLARY refill. Contralateral and X-rays ordered, obtained and reviewed at [facility] Impression/Plan:Find ings and the situation discussed. Patient will follow up with a gold miner blasting to discuss possible inflammatory arthritis that may be causing her persistent synovial drainage. Dr. Luz to debride and close her cystic wound when she is probably treated. Milton Miranda PA-C [address], [place], [address], [facility] 06/19/2024 09:51:13 07/15/2024 text/html Status post left index finger debridement of cyst 05/07/2024 with Chronic sinus tract Patient is a 53-year-old female well-known to me having undergone a prior left index finger complex flexor tenosynovectomy in 2017 which was found to have a candidal infection and was treated with the assistance of [facility] infectious disease with antifungal medications. More recently, she underwent excision of a small cyst on the ulnar border of the left index finger in April, but has had challenges with continued drainage which is stemming from the flexor tendon sheath proximally. She has had no fevers or chills. Bebe Latif MD [address], [place], [address], [facility] 07/15/2024 12:40:23 01/20/2025 text/html Chief complaint: Right foot pain and deformity History of present illness: Deysi presents today for evaluation of worsening right foot pain and deformity. She is well-known to our office. She has undergone reconstructive surgery with Dr. Rincon, which included a right first MTP fusion, second, third, fourth hammertoe corrections, second and third metatarsal osteotomies. In 2021 she was having focal symptoms overlying her first MTP fusion plate and we remove this plate. This allowed for near complete resolution of her dorsal pain at the first MTP joint. However over the past 3 years the patient has developed worsening deformity of the forefoot. She notes increasing valgus drift of her second toe and now has pain where it overlaps the third. She has significant pain in the region of the second MTP joint when she ambulates. Finally, in the fourth toe, she reports the pain plantarly where she feels a bony prominence. She has tried shoe modifications and activity modifications without relief. She is inquiring whether any surgical option is available to her Patient's past medical, surgical, social history is as noted on the intake sheet. I have reviewed this sheet and discussed contents with the patient. There are no changes Physical exam: Patient in no acute distress, alert and oriented. Mood and affect appropriate On standing examination there is symmetric physiologic valgus of the hindfoot bilaterally with neutral forefoot position Bilaterally there is full, painless passive range of motion of the ankle, subtalar, and transverse tarsal joints Focused examination right lower extremity there is no swelling, erythema, ecchymoses All surgical incisions are fully healed Hallux remains in neutral alignment with no evidence of deformity recurrence.The second toe sits in slight plantarflexion and valgus and is nearly under lapping the third toe There is pain with passive range of motion of the second MTP joint There is no tenderness at the plantar aspect of the second or third metatarsal head There is a palpable bony prominence at the PIP fusion site of the fourth toe. Overall the fourth toe does appear to be neutrally aligned in aggregate, with no significant coronal or sagittal plane malalignment On motor exam there is 5 out of 5 strength dorsiflexion, plantarflexion, inversion, eversion Sensation is intact to light touch in all distributions throughout the foot and ankle Toes are warm and well-perfused with palpable DP and PT pulses Imaging: AP, lateral, oblique weightbearing imaging of the right foot and ankle were obtained today in office. AP and oblique weightbearing imaging of the right ankle demonstrates no evidence of acute fracture or degenerative change. Tibiotalar mortise is symmetric with no talar tilt or shift. Weightbearing imaging of the right foot demonstrates evidence of prior first MTP fusion. There is evidence of second and third distal metatarsal osteotomies. There appears to be some internal rotation of the metatarsal head of the second metatarsal, with it which is unchanged from previous however, there does appear to be increased degenerative change at the second MTP joint compared to previous. On lateral x-ray a dorsiflexion malunion of the fourth toe PIP joint is noted with some dorsal subluxation of the middle phalanx on the proximal phalanx. This has resulted in a plantar bony prominence. PIP joint does appear to be fully fused Impression: ? Status post right first MTP fusion, 2nd through 4th hammertoe corrections, second and third metatarsal osteotomies, with Dr. Rincon ? Status post right first MTP fusion plate removal, 2021 ? 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 Fourth hammertoe PIP fusion malunion with excessive dorsiflexion and plantar bony prominence Plan: ? I reviewed today's physical examination and imaging findings at length with the patient. Treatment options were discussed at length. We did discuss that revision forefoot surgery can be very difficult in terms of achieving pain relief and maintaining function. She has however trialed and failed conservative measures such as shoe modifications and metatarsal pads. She is limited by her daily pain in her foot. It is reasonable to consider surgery ? We discussed that revision surgery would likely involve a revision second metatarsal osteotomy with possible interpositional arthroplasty here. We discussed that this will undoubtedly make her second MTP joint stiffer, and may result in incomplete pain relief. Additional procedures would likely include third MTP capsular release with realignment procedures as needed, and revision fourth hammertoe correction versus possible simple plantar exostectomy ? Risk and benefits of operative intervention were discussed with patient including not limited to: Bleeding, infection, damage to surrounding neurovascular structures, possibility of nonunion, possibility of malunion, possibility of over or under correction of deformity, possibility of incomplete pain relief. Perioperative risk such as DVT and PE were discussed. Patient indicated she understood the risks and wished to proceed Kasandra Alberts MD [address] [place] [address] [address], [place], [address], [facility] 01/22/2025 17:10:42 OBGyn Episode No OBEpisode recorded.
== END 2025-01-30 11:54 | disposition home or self-care (01) ==
LOC: HO.ENCR 10:32
PROVIDERS: PCP Internal Medicine; Visit Provider Nurse Practitioner Adult Health
DX: E13.9 Other specified diabetes mellitus without complications (principal)

== ENCOUNTER 2025-01-30 12:15 | Outpatient (REF) | payer OTHER, SELFPAY ==
[2025-01-30 14:14] LABS: Anion Gap 11 (12-20); Blood Urea Nitrogen 14 mg/dL (9-16); Calcium 9.7 mg/dL (8.4-10.2); Carbon Dioxide 29 mmol/L (22-29); Chloride 105 mmol/L (96-108); Estimated Glomerular Filt Rate > 60; Glucose Random 161 mg/dL (60-115); Potassium 4.4 mmol/L (3.3-5.1); Sodium 141 mmol/L (135-145)
[2025-01-30 14:36] LABS: Thyroid Stimulating Hormone 2.71 uIU/mL (0.32-4.0)
--- OUTSIDE RECORDS SUMMARY | 2025-01-30 15:08 | XMS_ITS | Clinical Summary ---
Author Organization [facility] [employer] [facility] it Address [address] [place] [address] Care Team Providers Care Prison Keeper Name Role Phone Cassius Strong MD Primary Care Provider Surgical History Surgery Date Site/Laterality Comments HYSTERECTOMY PROCEDURE: HISTORICAL HYSTERECTOMY FOOT SURGERY PROCEDURE: HISTORICAL FOOT SURGERY APPENDECTOMY PROCEDURE: HISTORICAL APPENDECTOMY Medical History Medical History Date Comments Brugada syndrome 08/01/2017 DX:Brugada synd adam Chronic obstructive pulmonar y disease ([facility] V24, [facility] V28) 07/07/2017 DX:Chronic obstructive pulm onary disease (HCC) Diabetes mellitus type 2, un complicated ([facility] V24, [facility] V28) 08/17/2017 DX:Diabetes mellitus type 2 , uncomplicated (HCC) GERD (gastroesophageal reflux disease) 08/17/2017 DX:GERD (gastroesophageal reflux disease) History of pancreatitis 11/10/2017 DX:Histo ry of pancreatitis Hyperlipidemia 08/17/2017 DX:Hyperlipidemi a Hypogammaglobulinemia ([facility] V24) 08/01/2017 DX:Hypogammaglobulinemia (HCC) Hypothyroidism 08/17/2017 DX:Hypothyroidis m 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[facility] V24, [facility] V28) 017 DX: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HCC) Obesity 05/05/2017 DX:Obesity Obstructive sleep apnea syndrome 08/01/2017 DX:Obstructive sleep apnea syndrome; COMMENT: BiPAP Osteoarthritis 08/17/2017 DX:Osteoarthriti s Port-A-Cath in place 11/10/2017 DX:Port-A-C ath in place RA (rheumatoid arthritis) ([facility] [place] V24, [facility] V28) 08/17/2017 DX:RA (rheumatoid arthritis) (HCC) Severe persistent asthma dep endent on systemic steroids ([facility]/HCC V28) 11/10/2017 DX:Severe persistent a sthma [...] age to complete this topic Care Teams Prison Keeper Relationship Specialty Start Date End Date Cassius Strong MD [address] [place] [address] [address] CONSTANCE Alvarez PCP - General 04/15/11
== END 2025-01-30 12:16 | disposition home or self-care (01) ==
LOC: HO.10HDL 12:15
PROVIDERS: Visit Provider Nurse Practitioner Adult Health
DX: E10.65 Type 1 diabetes mellitus with hyperglycemia (principal)
CPT/HCPCS: 36415; 80048; 82947; 83036; 84439; 84443

== ENCOUNTER 2025-02-10 10:33 | Outpatient (AMB) | payer OTHER, SELFPAY ==
[2025-02-10 10:36] VITALS: BP 166/82; PULSE 81; RESP 16; O2SAT 92; BMI 39.3
--- NOTE | 2025-02-10 10:36 | MHC.OFFVIS ---
Vital Signs 02/10/25 10:36 Height 5 ft 4 in Weight 229 lb BMI 39.3 BP 166/82 H Blood Pressure Location Lt brachial Position Sitting Respiration 16 Pulse 81 Pulse Source Pulse Oximeter Pulse Oximetry (%) 92 Oxygen Delivery Method Room Air Intake Visit Reasons: Other secondary scoliosis, lumbosacral/SIJ inj Hotel Maintenance Worker Required: No Allergies cephalexin Allergy (Severe, Verified 02/17/25 12:34) Difficulty Breathing latex [LATEX] Allergy (Severe, Verified 02/17/25 12:34) Difficulty Breathing levofloxacin [From LEVAQUIN] Allergy (Severe, Verified 02/17/25 12:34) SHORTNESS OF BREATH, RASH, rash morphine [MORPHINE] Allergy (Severe, Verified 02/17/25 12:34) RASH, asthma exacerbation, rash baclofen [BACLOFEN] Allergy (Intermediate, Verified 02/17/25 12:34) Rash celecoxib [Celebrex] Allergy (Intermediate, Verified 02/17/25 12:34) itching, rash, flushing prednisone [PREDNISONE] Allergy (Intermediate, Verified 02/17/25 12:34) RASH, asthma exacerbation, rash codeine Allergy (Unknown, Verified 02/17/25 12:34) Rash gluten [GLUTEN] Allergy (Unknown, Verified 02/17/25 12:34) UNKNOWN oxycodone Allergy (Unknown, Verified 02/17/25 12:34) rash ranitidine Allergy (Unknown, Verified 02/17/25 12:34) unknown roflumilast [Daliresp] Allergy (Unknown, Verified 02/17/25 12:34) rash tramadol [TRAMADOL] Allergy (Unknown, Verified 02/17/25 12:34) RASH,SHORTNESS OF BREATH AND HEADACHE, asthma exacerbation, rash celery Allergy (Verified 02/17/25 12:34) Rash cyclobenzaprine [From Flexeril] Allergy (Verified 02/17/25 12:34) Rash and asthma exacerbation environmental allergies Allergy (Verified 02/17/25 12:34) Cleaning products cause asthma attack pineapple Allergy (Verified 02/17/25 12:34) Rash strawberry Allergy (Verified 02/17/25 12:34) Rash sulfamethoxazole [From Bactrim] Adverse Reaction (Intermediate, Verified 02/17/25 12:34) vertigo trimethoprim [From Bactrim] Adverse Reaction (Intermediate, Verified 02/17/25 12:34) vertigo diazepam [From Valium] Adverse Reaction (Verified 02/17/25 12:34) Cough Medication List - Last Reconciled 02/10/25 by Annmarie Jain LPN atorvastatin 40 mg PO BEDTIME benralizumab (Fasenra) 30 mg subcut Q8W blood pressure monitor As directed blood sugar diagnostic (FreeStyle Lite Strips) As directed- checks 4-5 X/day calcium citrate 250 mg PO BID carvedilol 6.25 mg PO DAILY cholecalciferol (vitamin D3) 100 mcg (2 x 50 mcg (2,000 unit)) PO BEDTIME [DIABETIC SHOES DIABETIC SHOES - 1 PAIR - use as directed -- Dx: E11.9 -- diabetes mellitus] epinephrine 0.3 mg IM Q5M PRN ferrous sulfate (FeroSul) 325 mg PO DAILY fluconazole 100 mg PO DAILY 14 days fluticasone propionate 220 mcg/actuation inhalation hydromorphone 2 mg PO TID PRN 7 days insulin aspart (niacinamide) 100 unit/mL (3 mL) (Fiasp FlexTouch U-100 Insulin) 1 sliding scale dose subcut TIDAC insulin degludec (Tresiba FlexTouch U-100 insulin) 16 units daily, increase by 2 units every 3 days until am glucose is less than 130 subcutaneously daily; 90 days MDD 30 ipratropium bromide 2 sprays intranasal DAILY lancets (FreeStyle Lancets) 4 times a day levalbuterol tartrate 45 mcg/actuation (Xopenex HFA) 2 puffs inhalation Q6H PRN 30 days loratadine 10 mg PO DAILY losartan 25 mg PO BEDTIME 90 days montelukast 10 mg PO BEDTIME 90 days nebulizers As directed nystatin (Nystop) 1 appl topical BID PRN omeprazole 40 mg PO BID ondansetron 8 mg PO Q8H PRN 10 days pen needle, diabetic USE TO INJECT FOUR TIMES DAILY DIRECTED pyridostigmine bromide 60 mg PO QID rivaroxaban (Xarelto) 20 mg PO DAILY 90 days Synthroid (levothyroxine) 224 mcg (2 x 112 mcg) PO DAILY NS tiotropium bromide 1.25 mcg/actuation (Spiriva Respimat) 2 puffs inhalation DAILY tizanidine 4 mg (2 x 2 mg) PO BEDTIME PRN 30 days walker walker with wheels and seat HPI HPI Other secondary scoliosis, lumbosacral/SIJ inj: Details: History of Present Illness The patient is a 54-year-old female presenting with right-sided leg and back pain. She has a history of scoliosis and underwent a right hip replacement six years ago due to complications following a pelvic fracture. The resultant avascular necrosis required the intervention, and she now reports perceived leg length discrepancy and exacerbated scoliosis. The patient describes the current pain as distinct and localized, differing from previous symptoms on the left side, worsening without particular aggravating factors. The pain is associated with numbness in the right leg, raising questions about neurological involvement possibly due to spinal stenosis identified as moderate to severe at L3-4 on an MRI from 2018. Pain intrudes upon daily function and disrupts sleep. Management includes regular analgesic medications without complete alleviation. Concerns about long-term steroidal use are relevant, considering her osteopenia and diabetes status. An interdisciplinary management plan considering her complex medical background continues to evolve, with an MRI proposed to reevaluate spinal conditions and guide future interventions. Pain Description - Pain located in the right hip and thigh. - Described as localized and worsening in a specific spot. - Pain different from left-sided SI joint pain. - Associated with numbness in the right leg, again. - Worsens during nighttime and disrupts sleep. - Exacerbated by movement deemed necessary for daily activities. - Partially managed with muscle relaxers, Dilogin, and Tylenol. Physical Exam - Musculoskeletal- Scoliosis with notable rightward shift of the torso; Pain on palpation in the lower lumbar and mid-lumbar area; No significant pain on palpation of the SI joints. Results - MRI (2018): Moderate to severe central stenosis at L3-4 due to scoliosis-induced spinal deformities. Pain Management - Affect: Pain impacts mood, causing difficulty with maintaining an active lifestyle. - Analgesia: Current medications include Tylenol, Tiazide (muscle relaxer), and Dilogin, taken twice daily; incomplete pain relief reported. - Adverse Effects: Pain affects sleep and quality of life; no additional adverse medication effects reported. - Activities of Daily Living: Pain significantly limits daily activities, including previous ability to work. - Aberrant Drug Related Behaviors: None reported or discussed. [facility] Medical History Acute kidney injury (nontraumatic) Back pain Renal insufficiency Obesity (BMI 30-39.9) Mitochondrial myopathy Diabetes mellitus Portal hypertensive gastropathy Esophageal varices determined by endoscopy Portal hypertension HTN (hypertension) Anemia Chronic restrictive lung disease Brugada syndrome Shortness of breath Encounter for care related to Port-a-Cath Tinea pedis Recurrent cellulitis of lower extremity CHARLES (obstructive sleep apnea) Hypogammaglobulinemia Cellulitis of both lower extremities Right hip pain Lumbar degenerative disc disease Benign essential hypertension Asthma Acquired hypothyroidism Pure hypercholesterolemia Hx of cataract Osteopenia Osteoarthritis of hip Gastritis Surgical History History of revision of total replacement of right hip joint (~12/2019) Hx of hand surgery History of removal of Port-a-Cath History of total right hip arthroplasty (~06/03/19) History of eye surgery (~09/2017) History of hip surgery Hx of foot surgery (~01/02/19) History of removal of cyst Hx of left knee surgery History of elbow surgery (~07/2016) Hx of thumb surgery Hx of appendectomy Hx of hysterectomy (~07/2011) Hx of bilateral breast reduction surgery Family History Father Leukemia Mother Hypertension Diabetes Sister Alive and well Brother Pancreatic cancer Paternal Grandmother Stomach cancer Paternal Grandmother Throat cancer Social History Household Members: Family Housing: Apartment Do you presently have visiting nurse or other home services: No Alcohol intake: never Comment: refused bed alarm Patient Tobacco Use Status: Never used Tobacco e-Cigarette/Vaping Use: Never Used Second Hand Smoke Exposure: No Advance Directives Date on File: 10/02/23 service: No Current occupational status: disabled Current occupation: rt handed Cognitive needs: No Hearing needs: No Vision needs: No Physical Exam Vital Signs: Last Vital Signs Pulse 81 02/10/25 10:36 Resp 16 02/10/25 10:36 BP 166/82 H 02/10/25 10:36 Pulse Ox 92 02/10/25 10:36 Oxygen Delivery Method Room Air 02/10/25 10:36 BMI result Body Mass Index 39.3 Assessment & Plan Assessment & Plan (1) Scoliosis: Code(s): M41.9 - Scoliosis, unspecified Category: Medical Qualifiers: Scoliosis type: other secondary scoliosis Spinal region: lumbosacral Qualified Code(s): M41.57 - Other secondary scoliosis, lumbosacral region (2) Obesity (BMI 30-39.9): Code(s): E66.9 - Obesity, unspecified Category: Medical (3) Lumbar degenerative disc disease: Code(s): M51.36 - Other intervertebral disc degeneration, lumbar region Category: Medical Qualifiers: Disc-related pain type: discogenic back pain only Qualified Code(s): M51.360 - Other intervertebral disc degeneration, lumbar region with discogenic back pain only Plan Plan - Regular toggle press folder and feeder follow-up; referral to [facility] - Reassess potential surgical intervention based on MRI findings. Patient was informed and verbally consented to the use of an ambient scribe for clinic note documentation during this visit. Discussion Notes I reviewed with the patient the indication for a new MRI to assess her lumbar spine's current condition, focusing on changes in scoliosis and stenosis possibly explaining her right sided pain. We also discussed the issues associated with corticosteroid use, particularly regarding her diabetes control and potential impacts on bone density due to osteopenia. Additionally, I provided options for referral to [facility] services to support dietary needs and weight control, and a possible rheumatology consult if further diagnostic information suggests immune component involvement. The possibility of SI joint diagnostic injections to assess pain origins without corticosteroids was addressed. The patient acknowledges and understands the rationale for these recommendations and the importance of managing multiple health factors to reduce complications and improve outcomes. Patient Instructions - Get an MRI as soon as possible for evaluation of spine issues. - Keep a log of pain levels, activities, and any medication effects. - Follow up with the toggle press folder and feeder regularly to monitor A1c levels. - Engage with dietitian from [facility] for personalized diet plan. - Return to see me to review MRI findings after completion. - Continue Tylenol, Tizanidine as prescribed and report any issues. - See your doctor if you experience increased pain, numbness, or new symptoms. Orders: Orders MR lumbar spine wo con 02/10/25 M41.57 - Other secondary scoliosis, lumbosacral region, E66.9 - Obesity, unspecified Referrals [facility] Referral E66.9 - Obesity, unspecified Coding Level of Care Code New Pt Level 4 (95801) Diagnoses Other secondary scoliosis, lumbosacral region M41.57 Scoliosis type: other secondary scoliosis Spinal region: lumbosacral Obesity (BMI 30-39.9) E66.9 Degeneration of intervertebral disc of lumbar region with discogenic back pain M51.360 Disc-related pain type: discogenic back pain only
--- OUTSIDE RECORDS SUMMARY | 2025-02-10 12:25 | XMS_ITS | Patient Health Record ---
Author Organization [facility] Address [address] [place] [address] Care Team Providers Care Ditch Digger Name Role Phone Cassius Strong Primary Care Provider Colin Mercado Unavailable [phone] ALLERGIES Allergen (clinical drug ingredient) Drug/Non Drug Allergy documented on EMR Reaction Allergy Type Onset Date Status Apples/Baldwin/Leda ts/Pineapple/Strawb erry/Onion (uncoded) Unknown Allergy Active Gluten [...] out er thigh IM prn Active Ipratropium Geff 0.02 % Inhalation Active Medrol 16 MG [...] Notes Problem Food allergy (Z91.018) Active confirmed 781322721 Problem 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) Active confirmed 887230779 Problem Osteopenia (M85.80) Active confirmed 334108193 Problem Severe persistent asthma, uncomplicated (J45.50) Active confirmed 133376532 Problem Pancreatitis (K85.9) Active confirmed 87413337 Problem Steroid-dependent asthma (J45.909) Active confirmed [id number] Problem Insulin dependent diabetes mellitus with complications (E11.8) Active confirmed 88885466 Problem Myasthenia gravis (G70.00) Active confirmed [id number] PLAN OF TREATMENT No Information Insurance Providers Payer Name Payer Address Payer Phone Subscriber Number Group Number Insured Name Patient Relationship to Insured Coverage Start Date Coverage End Date Medicare/[facility] [employer] [address] [place] [phone] [id number] Kala Deysi Self - patient is the insured Medicaid [address] [place] [address] [id number] Deysi Armendariz Self - patient is the [...]
--- OUTSIDE RECORDS SUMMARY | 2025-02-10 12:26 | XMS_ITS | Clinical Summary ---
Author Organization [facility] [employer] [facility] it Address [address] [place] [address] Care Team Providers Care Reduction Furnace Operator Helper Name Role Phone Cassius Strong MD Primary Care Provider Surgical History Surgery Date Site/Laterality Comments HYSTERECTOMY PROCEDURE: HISTORICAL HYSTERECTOMY FOOT SURGERY PROCEDURE: HISTORICAL FOOT SURGERY APPENDECTOMY PROCEDURE: HISTORICAL APPENDECTOMY Medical History Medical History Date Comments Brugada syndrome 08/01/2017 DX:Brugada synd adam Chronic obstructive pulmonar y disease ([facility] V24, [facility] V28) 07/07/2017 DX:Chronic obstructive pulm onary disease (HCC) Diabetes mellitus type 2, un complicated ([facility] V24, [facility] V28) 08/17/2017 DX:Diabetes mellitus type 2 , uncomplicated (HCC) GERD (gastroesophageal reflux disease) 08/17/2017 DX:GERD (gastroesophageal reflux disease) History of pancreatitis 11/10/2017 DX:Histo ry of pancreatitis Hyperlipidemia 08/17/2017 DX:Hyperlipidemi a Hypogammaglobulinemia ([facility] V24) 08/01/2017 DX:Hypogammaglobulinemia (HCC) Hypothyroidism 08/17/2017 DX:Hypothyroidis m 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[facility] V24, [facility] V28) 017 DX: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HCC) Obesity 05/05/2017 DX:Obesity Obstructive sleep apnea syndrome 08/01/2017 DX:Obstructive sleep apnea syndrome; COMMENT: BiPAP Osteoarthritis 08/17/2017 DX:Osteoarthriti s Port-A-Cath in place 11/10/2017 DX:Port-A-C ath in place RA (rheumatoid arthritis) ([facility] V24, [facility] V28) 08/17/2017 DX:RA (rheumatoid arthritis) (HCC) Severe persistent asthma dep endent on systemic steroids ([facility] V28) 11/10/2017 DX:Severe persistent a sthma dependent [...] age to complete this topic Care Teams Reduction Furnace Operator Helper Relationship Specialty Start Date End Date Cassius Strong MD [address] [place] [address] [address] CONSTANCE Alvarez PCP - General 04/15/11
--- OUTSIDE RECORDS SUMMARY | 2025-02-10 12:26 | XMS_ITS | Data Portability ---
Author Organization [facility], [facility] Address [address] [place] [address] Care Team Providers Care Fur Repair Inspector Name Role Phone SYL ESTRADA Primary Care Provider Assessment Encounter Date Assessment Date Assessment LastModified [...] prescribed by the infectious disease group at [facility]., Concern for recurrent infection at this time Plan: Wound cultures are taken today. Dressings reapplied. Plan is made for surgical debridement of the left index finger and formal tissue collection for culture. In addition, I would like to reestablish her care with [facility] infectious diseases. Referral is made to their [...] satisfaction; surgery to be scheduled with my secretary book keeper. [email or web address] Not available 07/15/2024 11:12:48 01/09/2025 01/09/2025 [...] that had to be washed out in [place]. She had a previous fungal infection treated [...] full pronation and supination. 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 There is Tenderness over the biceps tendon insertion. It is intact. She has good range of motion of her fingers. It does not feel like there is anything intra-articular. She has normal pulses and sensation. She has scarring from previous finger tenosynovectomy. X-rays ordered, obtained and reviewed at [facility]: Previous Left elbow series shows heterotopic [...] stiffness from her previous infections and treatments. Event[employer]ist speech recognition licensing analyst software was used to create portions of this document. An attempt at proofreading has been made to minimize errors. Please call for corrections. [email or web address] Not available 01/09/2025 16:55:19 Plan of Treatment Reminders Order Date Submit Date Provider Last Modified By Organization Details Last Modified Time Details Appointments RECHECK 15 2024 02:45P M Bebe albert MD Not available Not available Not available Lab culture , wound 2023 024 [facility] (Centralized Electronic Ordering - All Locations), Patient Can Go To The Location Of Their Choice, [id number] 07/16/2024 06:52:48 fungus, culture , wound - wound Left index finger 2023 024 [facility] (Centralized Electronic Ordering - All Locations), Patient Can Go To The Location Of Their Choice, [id number] 07/22/2024 08:52:31 Referral None recorde d. Procedures None recorde d. Surgeries orthopa edic surgery (SURG) [address], [address] [place] [address], [place], [address], 02/07/2025 12:48:07 Imaging XR, ankle + foot - room 102 new R 3v foot 2v ankle 2024 025 [email or web address] [facility], [address], [address], [place], [address], 01/23/2025 15:53:05 XR, elbow, 3 or more view - 307 3V LEFT ELBOW 2024 025 [email or web address] [facility], [address], [address], [place], [address], 01/27/2025 08:29:39 Medication Orders None recorde d. Patient TargetsNo targets recorded. Patient InstructionsNo instructions recorded. Reason for Referral None Reported. Results Created Date Observation Date Name Description Value Unit Range Abnormal Flag Note LastModifiedBy Organization Detail LastModifiedTime 04/25/2004/26/2024 ELECT ROLYT E PANEL sodium 140 mmol/ L 134-14 4 normal Not Available [facility] ([facility]) [address] [place], [address], 05/01/2024 00:05:22 04/25/20 24 04/26/2024 ELECT ROLYT E PANEL potassium 4.1 mmol/ L 3.5-5. 2 normal Not Available [facility] ([facility]) [address] [place], [address], 05/01/2024 00:05:22 04/25/20 24 04/26/2024 ELECT ROLYT E PANEL chloride 104 mmol/ L 96-106 normal Not Available [facility] ([facility]) [address] [place], [address], 05/01/2024 00:05:22 04/25/20 24 04/26/2024 ELECT ROLYT E PANEL carbon dioxide, total 20 mmol/ L 20-29 normal Not Available [facility] ([facility]) [address] [place], [address], 05/01/2024 00:05:22 04/25/20 24 04/30/2024 GLUCO SE glucose 122 mg/dL 70-99 above high normal Not Available [facility] ([facility]) [address] [facility], [place], [address], 05/01/2024 00:05:23 05/02/20 24 04/25/2024 rhyth m [...] , 3 or more view [email or web address] ?Encry pted=s hAaTro YD8dLq bEUv6g %2BXZw aYqtaq 0bqfl% 2Fg9IQ a4ajBk vP9nXo QUaueC m3YtLR FvZlgJ JJ8mAn HZtai3 8w2153 AC0KqY nWFUaK uKiQtr [facility] INTERFACE [facility] [address], [place], [address], 01/09/2025 08:51:10 01/10/2001/09/2025 XR, elbow , 3 or more view [email or web address] ?Encry pted=s hAaTro YD8dLq bEUv6g %2BXZw aYqtaq 0bqfl% 2Fg9IQ a4ajBk vP9nXo QUaueC m3YtLR FvZlgJ JJ8[place]mont HZtai3 7i4216 AC0KqY nWFUaK uKiQtr MwF INTERFACE [facility] [address], [place], [address], 01/09/2025 08:51:12 01/21/20 25 01/20/2025 XR, ankle + foot [email or web address] ?Encry pted=s hAaTro YD8dLq bEUv6g %2BXZw aYqtaq 0bqfl% 2Fg9IQ a4ajBk vP9nXo QUaueC m3YtLR FvZlgJ JJ8mAn HZtai3 6s5275 AC0KqY 36EU6q gKiQtr MwF INTERFACE [facility] [address], [place], [address], 01/20/2025 13:59:00 01/21/20 25 01/20/2025 XR, ankle + foot [email or web address]:/ [email or web address] ?Encry pted=s hAaTro YD8dLq bEUv6g %2BXZw aYqtaq 0bqfl% 2Fg9IQ a4ajBk vP9nXo QUaueC m3YtLR FvZlgJ JJ8mAn HZtai3 6m2699 AC0KqY 36EU6q gKiQtr MwF INTERFACE [facility] [address], [place], [address], 01/20/2025 13:59:02 Result Notes None recorded. Problems Name Problem SNOMED Code Status Onset Date Resolution Date Notes Provider Name and Address Organization Details Recorded Time Flexor tenosynov itis of finger 113262031 Active 2024 Cristopher Lazo MD [address], [place], [address] , [facility] 5 08:28:41 Healing fracture Active 2013 Status: 'A'; Not Available [facility] 4 11:43:49 Sprain of ligament of metacarpo phalangea l joint of left thumb 355352380825 43607 Active 2015 Problem Code: S63.642A ; Problem Code Type: ICD-10; Status: 'A'; Not Available [facility] 4 11:43:50 Chondroma lacia of patella 73821176 Active 2010 Status: 'A'; Not Available [facility] 4 11:43:50 Dislocati on of elbow joint 425096376 Active 2023 JESSICA dobbs [facility] 4 08:15:51 Medial epicondyl itis of left elbow joint 138872813510 107 Active 2023 Cristopher Lazo MD [address], [place], [address] , [facility] 4 12:33:04 Hand pain 07034351 Active 2023 JESSICA MITCHELL [facility] 4 17:31:44 Mass of soft tissue 760836669 Active 2023 JESSICA MITCHELL [facility] 4 17:40:16 Ganglion cyst of left hand 002617833386 105 Active 2023 JESSICA MITCHELL [facility] 4 17:52:37 Problem Notes None recorded. Procedures Surgical History Date Name Laterality Status Provider Name and Address Organization Details Recorded Time 4 EXCISION OF SOFT TISSUE MASS (SURG) completed ANUSHA JONES [facility] 05/08/2024 12:10:27 4 Elbow Kenalog 1cc Injection, L/R completed Cristopher Lazo MD [address], [place], [address], [facility] 02/08/2024 12:32:41 Imaging Results Imaging Date Name [...] [facility] [address], [place], [address], 01/09/2025 08:51:10 01/09/2025 XR, elbow, 3 or more view completed INTERFACE [facility] [address], [place], [address], 01/09/2025 08:51:12 01/20/2025 XR, ankle + foot completed INTERFACE [facility] [address], [place], [address], 01/20/2025 13:59:00 01/20/2025 XR, ankle + foot completed INTERFACE [facility] [address], [place], [address], 01/20/2025 13:59:02 Procedure Notes None recorded. Medical Equipment None Reported. Allergies Allergen ID Allergen Name Allergen Category Reaction Reaction Severity Criticality Documentation Date Start Date Code Code System Note Provider Name and Address Organization Details Recorded Time 06901 cyclobenz aprine hydrochlo ride medicatio n Not available Not available Not available 12/18/20232012 84109 RxNorm Not Available [facility] 13:31:46 76201 doxycycli ne hyclate medicatio n Not available Not available Not available 12/18/20232015 42693 RxNorm Not Available [facility] 13:31:46 06613 pineapple extract food Not available Not available Not available 12/18/20232012 77236 74 RxNorm Not Available [facility] 4 13:31:46 94358 strawberr y allergeni c extract food,medi cation Not available Not available Not available 12/18/20232012 68457 4 RxNorm Not Available [facility] 4 13:31:46 90485 tramadol hydrochlo ride medicatio n Not available Not available Not available 12/18/20232012 29171 RxNorm Not Available [facility] 4 13:31:46 02523 Levaquin medicatio n Not available Not available Not available 12/18/20232013 87423 2 RxNorm Not Available [facility] 4 13:31:46 55630 wheat gluten extract food Not available Not available Not available 12/18/20232013 69100 81 RxNorm Not Available [facility] 4 13:31:47 17321 acetamino phen / hydrocodo ne medicatio n Not available Not available Not available 12/18/20232013 87211 2 RxNorm Not Available [facility] 4 13:31:47 38109 morphine sulfate medicatio n Not available Not available Not available 12/18/20232012 19941 RxNorm Not Available [facility] 4 13:31:47 44268 codeine medicatio n Not available Not available Not available 12/18/20232012 2670 RxNorm Not Available [facility] 4 13:31:47 52151 latex environme nt,medica tion Not available Not available Not available 12/18/20232010 03417 91 RxNorm Not Available [facility] 4 13:31:47 Medications Name Sig Start Date Stop [...] Not Available Not Available Not Available pseudoephed jewels-juan nesin ER 80-700 mg tablet,exte nded release [...] Updated DateTime 05/20/2024 160.02 cm 37.2 kg/m2 46338.4 g BRIGITTE GLASGOW [facility] 05/20/2024 13:51:30 Date Recorded Body height Body mass index (BMI) Body weight Provider Name and Address Organization Details Last Updated DateTime 06/19/2024 160.02 cm 37.2 kg/m2 21654.4 g PARAMJIT PINEDA [facility] 06/19/2024 09:29:21 Date Recorded Body height Body mass index (BMI) Body weight Provider Name and Address Organization Details Last Updated DateTime 07/15/2024 160.02 cm 37.2 kg/m2 66122.4 g EMILY SIMON [facility] 07/15/2024 10:06:50 Date Recorded Body height Body mass index (BMI) Body weight Provider Name and Address Organization Details Last Updated DateTime 01/09/2025 160.02 cm 37.2 kg/m2 22146.4 g JESSICAFELIX Duran [facility] 01/09/2025 08:38:46 Date Recorded Body height Body mass index (BMI) Body weight Provider Name and Address Organization Details Last Updated DateTime 01/20/2025 160.02 cm 37.2 kg/m2 28268.4 g Anusha Albert [facility] 01/20/2025 13:51:04 Social History None recorded. Functional Status None recorded. Mental Status None recorded. Family History Nothing Reported. Medical History No medical history recorded. Gynecological HistoryNo gynecological history recorded. Obstetrics History GPAL:G 0 P 0 0 0 0 Past Encounters Encounter ID Performer Location Encounter Start Date Encounter Closed Date Diagnosis/Indication Diagnosis SNOMED-CT Code Diagnosis ICD10 Code Diagnosis Note [id number] Cristopher Lazo MD [facility] [address] [place] [address] 02/08/2024 11:29:34 03/01/2024 16:01:59 Dislocation of elbow joint 192026764 S53.105D Medial epi condylitis of left elbow joint 8108970627 03469 M77.02 [id number] Milton Miranda PA-C [facility] [address] [place] [address] 03/19/2024 17:19:15 04/23/2024 11:00:07 Hand pain 44701162 M79.187 [id number] Aide Maher, OTR/L,CHT [facility] [address] [place] [address] 05/17/2024 10:28:07 05/17/2024 11:20:34 Ganglion cyst of left hand 2157121752 84434 M67.442 upon removal of the postop dressing, [...] digit is postured in extension. Postoperative care 00693 9007 Z48.89 Sutures are removed today without [...] office visit was complete at 20 minutes. [id number] MD Rosario Manzano [address] [place] [address] [address] [place] [address] 05/13/2024 14:04:13 05/13/2024 15:16:00 Postoperative care 114382215 Z48.89 [id number] MD Rosario Manzano [address] [place] [address] [address] [place] [address] 05/20/2024 13:39:45 06/23/2024 16:19:26 Ganglion cyst of left hand 4961990868 03416 M67.882 [id number] JOSSELINE Thorne [address] [place] [address] [address] [place] [address] 06/19/2024 09:21:02 07/28/2024 15:12:42 [id number] MD Rosario Manzano [address] [place] [address] [address] [place] [address] 07/15/2024 09:55:05 07/30/2024 08:46:18 Ganglion cyst of left hand 0914580811 62930 M67.442 Flexor ten osynovitis of finger M65.353 [id number] MD UDAY Jones [address] [place] [address] 01/09/2025 08:30:52 01/27/2025 08:29:39 Ganglion cyst of left hand 5007322316 70556 M67.442 Flexor ten osynovitis of finger M65.849 Dislocatio n of elbow joint 050251677 S53.105D Medial epi condylitis of left elbow joint 7533912812 21578 M77.02 [id number] MD UDAY Curtis [address] [place] [address] 01/20/2025 13:44:45 02/04/2025 14:52:29 Pain in right foot 8484758274 62971 M79.671 Hammer toe 556475893 M20 .41 Arthritis of right foot 7669135869 807441 M19.071 Health Concerns Section Related Observation LastModified by Organization Detai ls LastModified Time None Recorded Concern Status LastModified by Organization Details LastModified Time None Recorded Advance Directives Directive None Recorded Payers Encounter Date Sequence Insurance Name Policy Number Policy Pak Covered Member ID Pak Member ID Guarantor Name 05/20/2024 1 [employer] - DOS ON OR AFTER 2023 - ONE CARE (MEDICARE REPLACEMENT/ADV ANTAGE - HMO) Deysi Sanchesuta [id number] Deysi Sanchesuta 06/19/2024 1 [employer] - DOS ON OR AFTER 2023 - ONE CARE (MEDICARE REPLACEMENT/ADV ANTAGE - HMO) Deysi Armendariz [id number] Deysi Sanchesuta 07/15/2024 1 [employer] - DOS ON OR AFTER 2023 - ONE CARE (MEDICARE REPLACEMENT/ADV ANTAGE - HMO) Deysi Sanchesuta [id number] Deysi Armendariz 01/09/[address] [facility] - DOS ON OR AFTER 2023 - ONE CARE (MEDICARE REPLACEMENT/ADV ANTAGE - HMO) Deysi Armendariz [id number] Deysi Armendariz 01/20/[address] [facility] - DOS ON OR AFTER 2023 - ONE CARE (MEDICARE REPLACEMENT/ADV ANTAGE - HMO) Deysi Armendariz [id number] Deysi Armendariz Notes Date Note Type Note Provider Name [...] she has minimal active Bebe Latif MD [address] [place] [address], [address], [facility] 05/20/2024 15:44:23 06/19/2024 text/html I am seeing [...] and X-rays ordered, obtained and reviewed at [facility]-None Impression/Plan:Find ings and the situation discussed. Patient will follow up with a it compliance manager to discuss possible inflammatory arthritis that may be causing her persistent synovial drainage. Dr. Luz to debride and close her cystic wound when she is probably treated. Milton Miranda PA-C [address], [place], [address], [facility] 06/19/2024 09:51:13 07/15/2024 text/html Status post left index finger debridement of cyst 05/07/2024 with Chronic sinus tract Patient is a 53-year-old female well-known to me having undergone a prior left index finger complex flexor tenosynovectomy in 2017 which was found to have a candidal infection and was treated with the assistance of [facility] infectious disease with antifungal medications. More recently, she underwent excision of a small cyst on the ulnar border of the left index finger in April, but has had challenges with continued drainage which is stemming from the flexor tendon sheath proximally. She has had no fevers or chills. Bebe Latif MD [address], [place], [address], [facility] 07/15/2024 12:40:23 01/20/2025 text/html Chief complaint: Right [...] and wished to proceed Kasandra Alberts MD [address] [place] [address] [address], [place], [address], [facility] [place] 01/22/2025 17:10:42 OBGyn Episode No OBEpisode recorded.
== END 2025-02-10 11:33 | disposition home or self-care (01) ==
LOC: HO.PMC 10:33
PROVIDERS: PCP Internal Medicine; Referring Provider Physical Medicine & Rehabilitation; Visit Provider Internal Medicine
DX: M41.57 Other secondary scoliosis, lumbosacral region (principal); M51.360 Other intervertebral disc degeneration, lumbar region with discogenic back pain only; E66.9 Obesity, unspecified
CPT/HCPCS: 99204

== ENCOUNTER → 2025-02-10 10:33 | Outpatient (BNVA) | payer OTHER, SELFPAY | PROVIDERS: PCP Internal Medicine; Referring Provider Physical Medicine & Rehabilitation; Visit Provider Internal Medicine | DX: M41.57 Other secondary scoliosis, lumbosacral region (principal); M51.360 Other intervertebral disc degeneration, lumbar region with discogenic back pain only; E66.9 Obesity, unspecified; Z68.39 Body mass index [BMI] 39.0-39.9, adult | CPT/HCPCS: 99202 ==

== ENCOUNTER 2025-02-13 12:36 | Outpatient (AMB) | payer OTHER, SELFPAY ==
--- NOTE | 2025-02-12 20:54 | A.OFFVIS_ITS ---
Vital Signs 02/13/25 12:43 Height 5 ft 4 in Weight 231 lb 7.766 oz BMI 39.7 BP 124/82 Blood Pressure Location Rt brachial Position Sitting Pulse 63 Pulse Source Pulse Oximeter Pulse Oximetry (%) 95 Oxygen Delivery Method Room Air Intake Visit Reasons: DM Intake Note: Patient present today to follow up on Type 1 Diabetes Mellitus. Last Diabetic Eye exam: 05/2024 Last Podiatry Visit: does not see one Most Recent HgA1C: 9.8%, 01/30/2025 Random Glucose: 224 mg/dL Watershed Manager Required: No Accompanied by: Self / Same As Patient Allergies cephalexin Allergy (Severe, Verified 02/10/25 10:38) Difficulty Breathing latex [LATEX] Allergy (Severe, Verified 02/10/25 10:38) Difficulty Breathing levofloxacin [From LEVAQUIN] Allergy (Severe, Verified 02/10/25 10:38) SHORTNESS OF BREATH, RASH, rash morphine [MORPHINE] Allergy (Severe, Verified 02/10/25 10:38) RASH, asthma exacerbation, rash baclofen [BACLOFEN] Allergy (Intermediate, Verified 02/10/25 10:38) Rash celecoxib [Celebrex] Allergy (Intermediate, Verified 02/10/25 10:38) itching, rash, flushing prednisone [PREDNISONE] Allergy (Intermediate, Verified 02/10/25 10:38) RASH, asthma exacerbation, rash codeine Allergy (Unknown, Verified 02/10/25 10:38) Rash gluten [GLUTEN] Allergy (Unknown, Verified 02/10/25 10:38) UNKNOWN oxycodone Allergy (Unknown, Verified 02/10/25 10:38) rash ranitidine Allergy (Unknown, Verified 02/10/25 10:38) unknown roflumilast [Daliresp] Allergy (Unknown, Verified 02/10/25 10:38) rash tramadol [TRAMADOL] Allergy (Unknown, Verified 02/10/25 10:38) RASH,SHORTNESS OF BREATH AND HEADACHE, asthma exacerbation, rash celery Allergy (Verified 02/10/25 10:38) Rash cyclobenzaprine [From Flexeril] Allergy (Verified 02/10/25 10:38) Rash and asthma exacerbation environmental allergies Allergy (Verified 02/10/25 10:38) Cleaning products cause asthma attack pineapple Allergy (Verified 02/10/25 10:38) Rash strawberry Allergy (Verified 02/10/25 10:38) Rash sulfamethoxazole [From Bactrim] Adverse Reaction (Intermediate, Verified 02/10/25 10:38) vertigo trimethoprim [From Bactrim] Adverse Reaction (Intermediate, Verified 02/10/25 10:38) vertigo diazepam [From Valium] Adverse Reaction (Verified 02/10/25 10:38) Cough HPI Comments Details: The patient is a 54-year-old female who was seen today follow-up for LORNE type 1 diabetes. She has positive anti daphnie D5 antibody. Most recent A1C is 9.8% on 01/30/25. She was previously seen by Dr. Mahan for polycystic ovary syndrome and hypothyroidism she has had prior episodes of pancreatitis in the past. She has declined going on a sensor in the past due to skin sensitivity. She needs to improve A1C for surgery which has been postponed for 3 months. She was initially diagnosed with diabetes approximately 2016 and was treated with metformin. Tresiba 32 units was taking 20 units and has gradually increased, this am she increased substantially to 32 units Fiasp 18-20 units tid am readings in the am around 200 later in the day 200 She is family history of type 2 diabetes: Mother with type 2 Brother with type 1 diagnosed in childhood Her last eye examination was 07/09, she denies retinopathy. scheduled this year Denies nephropathy, she is on an ARB. 07/2024 microalbumin less than 5.0 01/30/2025 eGFR>60 Denies numbness, tingling, cramping in the legs She has HLD, on statin, denies CAD Denies symptoms of chest pain, dyspnea or claudication. Diet: She has seen a business analyst intern in the past and declines referral. She is gluten intolerant and has other dietary intolerances. [facility] Medical History (Updated 01/30/25 @ 15:08 by Maeve Raymond NP) Acute kidney injury (nontraumatic) Back pain Renal insufficiency Obesity (BMI 30-39.9) Mitochondrial myopathy Diabetes mellitus Portal hypertensive gastropathy Esophageal varices determined by endoscopy Portal hypertension HTN (hypertension) Anemia Chronic restrictive lung disease Brugada syndrome Shortness of breath Encounter for care related to Port-a-Cath Tinea pedis Recurrent cellulitis of lower extremity CHARLES (obstructive sleep apnea) Hypogammaglobulinemia Cellulitis of both lower extremities Right hip pain Lumbar degenerative disc disease Benign essential hypertension Asthma Acquired hypothyroidism Pure hypercholesterolemia Hx of cataract Osteopenia Osteoarthritis of hip Gastritis Surgical History History of revision of total replacement of right hip joint (~12/2019) Hx of hand surgery History of removal of Port-a-Cath History of total right hip arthroplasty (~06/03/19) History of eye surgery (~09/2017) History of hip surgery Hx of foot surgery (~01/02/19) History of removal of cyst Hx of left knee surgery History of elbow surgery (~07/2016) Hx of thumb surgery Hx of appendectomy Hx of hysterectomy (~07/2011) Hx of bilateral breast reduction surgery Family History Father Leukemia Mother Hypertension Diabetes Sister Alive and well Brother Pancreatic cancer Paternal Grandmother Stomach cancer Paternal Grandmother Throat cancer Social History Household Members: Family Housing: Apartment Do you presently have visiting nurse or other home services: No Alcohol intake: never Comment: refused bed alarm Patient Tobacco Use Status: Never used Tobacco e-Cigarette/Vaping Use: Never Used Second Hand Smoke Exposure: No Advance Directives Date on File: 10/02/23 service: No Current occupational status: disabled Current occupation: rt handed Cognitive needs: No Hearing needs: No Vision needs: No Physical Exam Vital Signs: Last Vital Signs Pulse 63 02/13/25 12:43 BP 124/82 02/13/25 12:43 Pulse Ox 95 02/13/25 12:43 Oxygen Delivery Method Room Air 02/13/25 12:43 BMI result Body Mass Index 39.7 Const Other: Absence of Cushingoid features. Absence of acromegalic features. Neck exam reveals nl size thyroid about 15 gms. No thyroid nodules palpable. Heart S1 S2, Reg R/R. No M/R G. Skin exam reveals absence of vitiligo or acanthosis nigricans. Assessment & Plan Assessment & Plan (1) Diabetes mellitus: Code(s): E11.9 - Type 2 diabetes mellitus without complications Category: Medical Qualifiers: Diabetes mellitus type: type 1 Diabetes mellitus complication status: with hyperglycemia Qualified Code(s): E10.65 - Type 1 diabetes mellitus with hyperglycemia Plan: 54-year-old Lorne diabetic with no known macro/macrovascular complication with poor A1c. Increase insulin: tresiba 32 units increase tresiba every 3 days by 2 units until am glucose is less than 130. Fiasp 80-150 16 units 151-200 20 units 201-250 22 units 251-250 24 units over 300 26 units tid with meals I have asked her to call me weekly if her numbers are not in good range. The patient had an opportunity to ask questions regarding treatment plan. The patient expressed understanding and agreement with the above treatment plan. The patient is aware they should contact our office by phone for worsening glucose readings or for any low blood sugars which may warrant a change in diabetes medication. Compliance is encouraged with medications and any followup testing/consults which may have been ordered. Medications: Changed From insulin degludec (Tresiba FlexTouch U-100 insulin) 16 units daily, increase by 2 units every 3 days until am glucose is less than 130 subcutaneously daily; 90 days 27 mL 3RF MDD 30 To insulin degludec (Tresiba FlexTouch U-100 insulin) 32 units in the am after 3 days if glucose not under 130 in the am can increase by 2 units every 3 days. 90 days 27 mL 3RF MDD 30 Coding Level of Care Code Est Pt Level 4 (08818) Complex EM visit Add On G2211 Diagnoses Type 1 diabetes mellitus with hyperglycemia E10.65 Diabetes mellitus type: type 1 Diabetes mellitus complication status: with hyperglycemia Time Spent (min) 30 Comment Time spent reviewing labs/provider notes, face to face, chart doc
[2025-02-13 12:43] VITALS: BP 124/82; PULSE 63; O2SAT 95; BMI 39.7
[2025-02-13 12:51] LABS: Glucose, Whole Blood 226 mg/dL (60-115)
--- OUTSIDE RECORDS SUMMARY | 2025-02-13 14:55 | XMS_ITS | Clinical Summary ---
Author Organization [facility] [employer] [facility] Address [address] [place] [address] Care Team Providers Care Demand Manager Name Role Phone Cassius Strong MD Primary Care Provider Surgical History Surgery Date Site/Laterality Comments HYSTERECTOMY PROCEDURE: HISTORICAL HYSTERECTOMY FOOT SURGERY PROCEDURE: HISTORICAL FOOT SURGERY APPENDECTOMY PROCEDURE: HISTORICAL APPENDECTOMY Medical History Medical History Date Comments Brugada syndrome 08/01/2017 DX:Brugada synd adam Chronic obstructive pulmonar y disease ([facility] V24, [facility] V28) 07/07/2017 DX:Chronic obstructive pulm onary disease (HCC) Diabetes mellitus type 2, un complicated ([facility] V24, [facility] V28) 08/17/2017 DX:Diabetes mellitus type 2 , uncomplicated (HCC) GERD (gastroesophageal reflux disease) 08/17/2017 DX:GERD (gastroesophageal reflux disease) History of pancreatitis 11/10/2017 DX:Histo ry of pancreatitis Hyperlipidemia 08/17/2017 DX:Hyperlipidemi a Hypogammaglobulinemia ([facility] V24) 08/01/2017 DX:Hypogammaglobulinemia (HCC) Hypothyroidism 08/17/2017 DX:Hypothyroidis m 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[facility] V24, [facility] V28) 017 DX: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HCC) Obesity 05/05/2017 DX:Obesity Obstructive sleep apnea syndrome 08/01/2017 DX:Obstructive sleep apnea syndrome; COMMENT: BiPAP Osteoarthritis 08/17/2017 DX:Osteoarthriti s Port-A-Cath in place 11/10/2017 DX:Port-A-C ath in place RA (rheumatoid arthritis) ([facility] V24, [facility] V28) 08/17/2017 DX:RA (rheumatoid arthritis) (HCC) Severe persistent asthma dep endent on systemic steroids ([facility] V28) 11/10/2017 DX:Severe persistent a sthma [...] age to complete this topic Care Teams Demand Manager Relationship Specialty Start Date End Date Cassius Strong MD [address] [place] [address] [address] CONSTANCE Alvarez PCP - General 04/15/11
== END 2025-02-13 13:10 | disposition home or self-care (01) ==
LOC: HO.ENCR 12:36
PROVIDERS: PCP Internal Medicine; Visit Provider Nurse Practitioner Adult Health
DX: E10.65 Type 1 diabetes mellitus with hyperglycemia (principal)
CPT/HCPCS: 99214; G2211

== ENCOUNTER → 2025-02-13 12:36 | Outpatient (BNVA) | payer OTHER, SELFPAY | PROVIDERS: PCP Internal Medicine; Visit Provider Nurse Practitioner Adult Health | DX: E10.65 Type 1 diabetes mellitus with hyperglycemia (principal); Z79.4 Long term (current) use of insulin | CPT/HCPCS: 82947; 99212 ==

== ENCOUNTER 2025-02-14 15:46 | Outpatient (AMB) | payer OTHER, SELFPAY ==
--- NOTE | 2025-02-14 15:50 | A.OFFPC_ITS ---
Vital Signs 02/14/25 15:51 Height 5 ft 4 in Weight 228 lb 2 oz BMI 39.2 BP 120/86 Blood Pressure Location Lt brachial Position Sitting Pulse 98 Pulse Source Pulse Oximeter Pulse Oximetry (%) 96 Oxygen Delivery Method Room Air Intake Visit Reasons: 3mth f/u- discuss breast cx screening [employer] Required: No Accompanied by: Self / Same As Patient Allergies cephalexin Allergy (Severe, Verified 02/15/25 03:57) Difficulty Breathing latex [LATEX] Allergy (Severe, Verified 02/15/25 03:57) Difficulty Breathing levofloxacin [From LEVAQUIN] Allergy (Severe, Verified 02/15/25 03:57) SHORTNESS OF BREATH, RASH, rash morphine [MORPHINE] Allergy (Severe, Verified 02/15/25 03:57) RASH, asthma exacerbation, rash baclofen [BACLOFEN] Allergy (Intermediate, Verified 02/15/25 03:57) Rash celecoxib [Celebrex] Allergy (Intermediate, Verified 02/15/25 03:57) itching, rash, flushing prednisone [PREDNISONE] Allergy (Intermediate, Verified 02/15/25 03:57) RASH, asthma exacerbation, rash codeine Allergy (Unknown, Verified 02/15/25 03:57) Rash gluten [GLUTEN] Allergy (Unknown, Verified 02/15/25 03:57) UNKNOWN oxycodone Allergy (Unknown, Verified 02/15/25 03:57) rash ranitidine Allergy (Unknown, Verified 02/15/25 03:57) unknown roflumilast [Daliresp] Allergy (Unknown, Verified 02/15/25 03:57) rash tramadol [TRAMADOL] Allergy (Unknown, Verified 02/15/25 03:57) RASH,SHORTNESS OF BREATH AND HEADACHE, asthma exacerbation, rash celery Allergy (Verified 02/15/25 03:57) Rash cyclobenzaprine [From Flexeril] Allergy (Verified 02/15/25 03:57) Rash and asthma exacerbation environmental allergies Allergy (Verified 02/15/25 03:57) Cleaning products cause asthma attack pineapple Allergy (Verified 02/15/25 03:57) Rash strawberry Allergy (Verified 02/15/25 03:57) Rash sulfamethoxazole [From Bactrim] Adverse Reaction (Intermediate, Verified 02/15/25 03:57) vertigo trimethoprim [From Bactrim] Adverse Reaction (Intermediate, Verified 02/15/25 03:57) vertigo diazepam [From Valium] Adverse Reaction (Verified 02/15/25 03:57) Cough Medication List - Last Reconciled 02/15/25 by Cassius Strong MD atorvastatin 40 mg PO BEDTIME benralizumab (Fasenra) 30 mg subcut Q8W blood pressure monitor As directed blood sugar diagnostic (FreeStyle Lite Strips) As directed- checks 4-5 X/day calcium citrate 250 mg PO BID carvedilol 6.25 mg PO DAILY cholecalciferol (vitamin D3) 100 mcg (2 x 50 mcg (2,000 unit)) PO BEDTIME [DIABETIC SHOES DIABETIC SHOES - 1 PAIR - use as directed -- Dx: E11.9 -- diabetes mellitus] epinephrine 0.3 mg IM Q5M PRN ferrous sulfate (FeroSul) 325 mg PO DAILY fluconazole 100 mg PO DAILY 14 days fluticasone propionate 220 mcg/actuation inhalation hydromorphone 2 mg PO TID PRN 7 days insulin aspart (niacinamide) 100 unit/mL (3 mL) (Fiasp FlexTouch U-100 Insulin) 1 sliding scale dose subcut TIDAC insulin degludec (Tresiba FlexTouch U-100 insulin) 32 units in the am after 3 days if glucose not under 130 in the am can increase by 2 units every 3 days. 90 days MDD 30 ipratropium bromide 2 sprays intranasal DAILY lancets (FreeStyle Lancets) 4 times a day levalbuterol tartrate 45 mcg/actuation (Xopenex HFA) 2 puffs inhalation Q6H PRN 30 days loratadine 10 mg PO DAILY losartan 25 mg PO BEDTIME 90 days montelukast 10 mg PO BEDTIME 90 days nebulizers As directed nystatin (Nystop) 1 appl topical BID PRN omeprazole 40 mg PO BID ondansetron 8 mg PO Q8H PRN 10 days pen needle, diabetic USE TO INJECT FOUR TIMES DAILY DIRECTED pyridostigmine bromide 60 mg PO QID rivaroxaban (Xarelto) 20 mg PO DAILY 90 days Synthroid (levothyroxine) 224 mcg (2 x 112 mcg) PO DAILY NS tiotropium bromide 1.25 mcg/actuation (Spiriva Respimat) 2 puffs inhalation DAILY tizanidine 4 mg (2 x 2 mg) PO BEDTIME PRN 30 days walker walker with wheels and seat Tobacco use date assessed: 02/14/25 Dental Screening Dental Screen Date: 02/14/25 HPI 3mth f/u- discuss breast cx screening HPI Details Patient comes in today for her follow-up visit States that she was just seen by pain management a few days ago for follow up of her low back pain and is currently being scheduled for an MRI of her lumbar spine for further evaluation, as she states that depending on how her MRI comes out, pain management is considering referring her to neurosurgery for further recommendations regarding her lower back issues Patient feels that her low back pain has gotten much worse lately and as she can hardly stand still for prolonged periods of time, she has not been able to get her annual mammogram done in a while now and is wondering if there are any other alternative means of doing the mammogram without requiring her to stand up for a long time She is also requesting in the meantime to allow her to have an extra dose of her pain medication until pain management decide what to do with her she states that she has been waking up often in the middle of the night lately with increased back pain and she has not been able to get back to sleep as her pain medication tends to wear off in the middle of the night She was also seen by endocrinology for follow-up of her diabetes a couple of days ago and had dosage of Tresiba increased/doubled up to 32 units as her diabetes has not been controlled well lately, with her HgbA1c at 9.8% when checked a couple of weeks ago Patient currently denies any headaches or dizziness Denies any chest pains, no increased shortness of breath No nausea/vomiting, no abdominal pain No change in bowel habits noted She had some follow up labs done a couple of weeks ago - to discuss her results [facility] Medical History Acute kidney injury (nontraumatic) Back pain Renal insufficiency Obesity (BMI 30-39.9) Mitochondrial myopathy Diabetes mellitus Portal hypertensive gastropathy Esophageal varices determined by endoscopy Portal hypertension HTN (hypertension) Anemia Chronic restrictive lung disease Brugada syndrome Shortness of breath Encounter for care related to Port-a-Cath Tinea pedis Recurrent cellulitis of lower extremity CHARLES (obstructive sleep apnea) Hypogammaglobulinemia Cellulitis of both lower extremities Right hip pain Lumbar degenerative disc disease Benign essential hypertension Asthma Acquired hypothyroidism Pure hypercholesterolemia Hx of cataract Osteopenia Osteoarthritis of hip Gastritis Surgical History History of revision of total replacement of right hip joint (~12/2019) Hx of hand surgery History of removal of Port-a-Cath History of total right hip arthroplasty (~06/03/19) History of eye surgery (~09/2017) History of hip surgery Hx of foot surgery (~01/02/19) History of removal of cyst Hx of left knee surgery History of elbow surgery (~07/2016) Hx of thumb surgery Hx of appendectomy Hx of hysterectomy (~07/2011) Hx of bilateral breast reduction surgery Family History Father Leukemia Mother Hypertension Diabetes Sister Alive and well Brother Pancreatic cancer Paternal Grandmother Stomach cancer Paternal Grandmother Throat cancer Social History Household Members: Family Housing: Apartment Do you presently have visiting nurse or other home services: No Alcohol intake: never Comment: refused bed alarm Patient Tobacco Use Status: Never used Tobacco e-Cigarette/Vaping Use: Never Used Second Hand Smoke Exposure: No Advance Directives Date on File: 10/02/23 service: No Current occupational status: disabled Current occupation: rt handed Cognitive needs: No Hearing needs: No Vision needs: No Questionnaire PHQ-9 Over the last 2 weeks, how often have you been bothered by any of the following problems? 1. Little interest or pleasure in doing things: not at all 2. Feeling down, depressed, or hopeless: not at all 3. Trouble falling or staying asleep, or sleeping too much: not at all 4. Feeling tired or having little energy: more than half the days 5. Poor appetite or overeating: not at all 6. Feeling bad about yourself - or that you are a failure or have let yourself or your family down: not at all 7. Trouble concentrating on things, such as reading the newspaper or watching television: not at all 8. Moving or speaking so slowly that other people could have noticed. Or the opposite - being so fidgety or restless that you have been moving around a lot more than usual: not at all 9. Thoughts that you would be better off or of hurting yourself in some way: not at all Total score: 2 Depression Screening Interpretation: Negative Depression Screening Done: Yes 93456 - PHQ-9 Billing: Yes Source: Developed by Drs. Babak Mcintosh, Savannah Vera, Christian Crowell and colleagues, with an educational sarah from [employer]. Thrive Questionnaire Date Thrive assessed: 02/14/25 I am a: Patient What is your living situation today?: I have a steady place to live Within the past 12 months, did the food you bought not last and you didn't have the money to get more?: Never true Within the past 12 months, did you worry whether your food would run out before you got money to buy more?: Never true Do you have trouble paying for medicines?: No Do you have trouble getting transportation to medical appointments?: No Do you have trouble paying your heating and electricity bill?: No Do you have trouble taking care of your child, family member or friend?: No Do you have trouble with day-to-day activities such as bathing, preparing meals, shopping, managing finances, etc.?: No Are you currently unemployed and looking for a job?: No Are you interested in more education?: No Please select the resources that you would like help with: None Currently or been in a relationship where the following occur: No concerns reported THRIVE Score: 0 AUDIT C Alcohol Use Questionnaire (AUDIT-C) 1. How often do you have a drink containing alcohol?: Never 3. How often do you have six or more drinks on one occasion?: Never Total Score: 0 Score Reviewed/Action Taken: Yes REI-7 AMB Questionnaire REI-7 Date REI - 7 assessed: 02/14/25 Feeling nervous, anxious, or on edge: 0 = Not at all Not being able to stop or control worryin = Not at all Worrying too much about different things: 0 = Not at all Trouble relaxin = Not at all Being so restless that it is hard to sit still: 0 = Not at all Becoming easily annoyed or irritable: 0 = Not at all Feeling afraid as if something awful might happen: 0 = Not at all Total REI-7 score (0-4 normal; 5-9 mild; 10-14 moderate; 15-21 severe): 0 Source: Developed by Drs. Babak Mcintosh, Savannah Vera, Christian Crowell and colleagues, with an educational sarah from [employer]. Review of Systems Const Denies chills, Reports difficulty sleeping (waking up often due to increased pain over her lower back lately), Reports fatigue, Denies fever(s) and Denies headache(s) ENT Denies dysphagia, Denies dizziness, Denies otalgia, Denies headache(s), Denies neck pain, Denies odynophagia and Denies sore throat Card Denies chest pain, Denies palpitations and Reports dyspnea on exertion (mild) Resp Denies chest congestion, Denies cough and Reports dyspnea on exertion (mild) GI Denies abdominal pain, Denies constipation, Denies dysphagia, Denies heartburn, Denies diarrhea, Denies nausea, Denies odynophagia and Denies vomiting Denies nocturia, Denies dysuria and Denies urinary urgency Musc Reports back pain (over the lumbar spine - chronic), Reports arthralgias (involving multiple joints, including both hips and knees) and Denies neck pain Skin/Breast Denies rash Neuro Denies dizziness and Denies headache(s) Endo Reports fatigue and Denies palpitations Umair/Lymph Details: (+) swelling of the right arm Physical exam (Primary Care) Vital Signs: Last Vital Signs Pulse 98 02/14/25 15:51 BP 120/86 02/14/25 15:51 Pulse Ox 96 02/14/25 15:51 Oxygen Delivery Method Room Air 02/14/25 15:51 BMI result Body Mass Index 39.2 Tobacco/Smoking Status: Tobacco use Status Tobacco use date assessed 02/14/25 02/14/25 15:55 Patient Tobacco Use Status Never used Tobacco 02/14/25 15:55 e-Cigarette/Vaping Use Never Used 02/14/25 15:55 PHQ-9: PHQ-9 Score PHQ-9: Total score 2 02/14/25 16:15 Depression Screening Interpretation: Negative Thrive Assessment: Date of Thrive Assessment Date Thrive assessed 02/14/25 02/14/25 15:55 Currently or been in a relationship where the following occur: No concerns reported Const General: no acute distress and alert HENMT Ears: TM's normal bilaterally and EAC's normal Throat: Yes posterior oropharynx normal and Yes tonsils normal (no TP congestion noted) Neck Neck: Yes no lymphadenopathy and Yes supple Thyroid: Thyroid normal Resp Auscultation: clear to auscultation bilaterally, no rales and no wheezes Cardio Rate: regular rate Rhythm: regular rhythm Heart sounds: no murmurs GI Palpation (GI): Soft to palpation and nontender Auscultation: normal bowel sounds General: Yes no CVA tenderness Back/Spine/Pelvis Back: no CVA tenderness Thoracic/Lumbar Spine: lumbar spinal tenderness Skin Rashes: no rashes Extrem General: Yes no pedal edema, No clubbing, No cyanosis and Yes edema (2+ edema of the right upper extremity) Right lower extremity: hip/thigh Details: tenderness Location: of the hip and knee Details: tenderness; no swelling Left lower extremity: hip/thigh Details: tenderness Location: of the hip and knee Details: tenderness; no swelling Results Reviewed Results Reviewed: Laboratory Tests 01/30/25 01/30/25 11:15 12:20 Sodium 141 Potassium 4.4 D Creatinine 0.82 Estimated GFR > 60 Hgb A1c (Clinic) 9.8 H Calcium 9.7 TSH 2.71 Free T4 1.10 Coding Level of Care Code Est Pt Level 4 (49314) Complex EM visit Add On G2211 Diagnoses Type 1 diabetes mellitus with hyperglycemia E10.65 Diabetes mellitus type: type 1 Diabetes mellitus complication status: with hyperglycemia Benign essential hypertension I10 Pure hypercholesterolemia E78.00 Moderate persistent asthma without complication J45.40 Asthma severity: moderate Asthma persistence: persistent Asthma complication type: uncomplicated Acquired hypothyroidism E03.9 Acute deep vein thrombosis (DVT) of other vein of right upper extremity I82.621 Affected thrombotic vein of extremity: other upper extremity vein Chronicity: acute Mitochondrial myopathy G71.3 Esophageal varices determined by endoscopy I85.00 Portal hypertensive gastropathy K76.6; K31.89 Elevated LFTs R79.89 Anemia, unspecified type D64.9 Anemia type: unspecified type Renal insufficiency N28.9 Degeneration of intervertebral disc of lumbar region with discogenic back pain M51.360 Disc-related pain type: discogenic back pain only Primary osteoarthritis of both hips M16.0 Osteoarthritis type: primary Laterality: bilateral Obesity (BMI 30-39.9) E66.9 Breast cancer screening by mammogram Z12.31 Additional Codes PHQ-9 - 31650 - PHQ-9 Billing: Yes ([id number]) Assessment & Plan Assessment & Plan (1) Diabetes mellitus: Code(s): E11.9 - Type 2 diabetes mellitus without complications Category: Medical Qualifiers: Diabetes mellitus type: type 1 Diabetes mellitus complication status: with hyperglycemia Qualified Code(s): E10.65 - Type 1 diabetes mellitus with hyperglycemia Plan: Her HgbA1c was at 9.8% when last checked at the endocrinology clinic a couple of weeks ago; HgbA1c was previously at 8.6% a few months ago on 08/01/2024 - goal is at least <7.0% Reinforced diabetic diet She was reclassified as LORNE (type 1 diabetes) instead when her REI antibody test came back positive in 2021 Her Metformin was recently stopped and she currently continues on Fiasp dosed at 6-10 units TID with meals per sliding scale Her Tresiba was recently doubled up by endocrinology from 16 units to 32 units QD Follow up with endocrinology as scheduled (2) Benign essential hypertension: Code(s): I10 - Essential (primary) hypertension Category: Medical Plan: Reinforced low sodium diet - goal is systolic BP of at least 120 to 130 mm or less Continue Carvedilol 6.25 mg QD and Losartan 25 mg QD She was started on Carvedilol 6.25 mg QD in September 2023 more for her hypertensive portal gastropathy; Metoprolol was discontinued Her Losartan 25 mg QD was HELD for a while a few months ago due to low BP and recurrent dizziness - her BP has gone up since and she was eventually started back on Losartan at 25 mg Patient is reminded to continue monitoring her blood pressure regularly (3) Pure hypercholesterolemia: Code(s): E78.00 - Pure hypercholesterolemia, unspecified Category: Medical Plan: Reinforced low cholesterol diet; we do not have a recent fasting lipid profile to go over with patient today Continue Atorvastatin 40 mg QD Will recheck her labs and fasting lipids in 3 months for follow up (4) Asthma: Code(s): J45.909 - Unspecified asthma, uncomplicated Category: Medical Qualifiers: Asthma severity: moderate Asthma persistence: persistent Asthma c omplication type: uncomplicated Qualified Code(s): J45.40 - Moderate persistent asthma, uncomplicated Plan: Controlled Continue Montelukast 10 mg once a day in the evening, Spiriva Respimat 20-100 mcg 1 inhalation 4 times a day, Ventolin HFA 2 puffs 4 times a day as needed and DuoNeb nebulizer solution 3 mL via nebulizer 4 times a day as needed Continue Fasenra 30 mg subcutaneous injection every 8 weeks Follow up with pulmonary as scheduled (5) Acquired hypothyroidism: Code(s): E03.9 - Hypothyroidism, unspecified Category: Medical Plan: Continue Synthroid 224 mcg QD Will continue to monitor her TFTs regularly Follow up with endocrinology as scheduled (6) Deep vein thrombosis (DVT) of right upper extremity: Code(s): I82.621 - Acute embolism and thrombosis of deep veins of right upper extremity Category: Medical Qualifiers: Affected thrombotic vein of extremity: other upper extremity vein Chronicity: acute Qualified Code(s): I82.621 - Acute embolism and thrombosis of deep veins of right upper extremity Plan: Venous doppler of the right upper extremity done at the ER on 09/03/2024 when patient presented there with right arm swelling and pain revealed (+) catheter related deep venous thrombosis involving the right axillary vein and basilic vein Her right upper extremity PICC line was discontinued in the ER and she was then started on Eliquis 5 mg BID but was subsequently switched over to Xarelto 20 mg QD as she could not tolerate Eliquis (syncopal episodes?) Have advised patient that we will likely repeat a venous doppler on her right upper extremity in a few months to ensure resolution of her DVT and then can likely discontinue her NOAC then - we will address this further when we have a better idea of what is going to happen with her lower back pain (7) Mitochondrial myopathy: Code(s): G71.3 - Mitochondrial myopathy, not elsewhere classified Category: Medical Plan: Continue Mestinon tablets 60 mg 4 times a day Patient also receives Gammagard infusion 40 mg IV every [address] up [address] Dr. Cobian and with neurology as scheduled for continuing manag ement (8) Esophageal varices determined by endoscopy: Code(s): I85.00 - Esophageal varices without bleeding Category: Medical Plan: EGD done in September 2023 revealed (+) large varices that required banding x 5 and hemospray application Patient also had a gastric polyp that was removed surgically Repeat EGD done in November 2023 revealed (+) gastric polyps (pathology came back benign), portal hypertensive gastropathy and esophageal varices - banding and hemospray were again required Repeat colonoscopy showed (+) internal hemorrhoids and 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 She is reminded to avoid all NSAIDs completely Continue Omeprazole 40 mg BID; continue Carvedilol 6.25 mg QD for hypertensive portal gastropathy Follow up with GI as scheduled (9) Portal hypertensive gastropathy: Code(s): K76.6 - Portal hypertension; K31.89 - Other diseases of stomach and duodenum Category: Medical Plan: EGD done in September 2023 and November 2023 revealed (+) large esophageal varices, gastric polyps (pathology came back benign) and portal hypertensive gastropathy that required banding and hemospray application Repeat colonoscopy showed (+) internal hemorrhoids and 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 Her spleen is enlarged and measures about 14.5 cm Will continue to monitor her LFTs regularly (11) Anemia: Code(s): D64.9 - Anemia, unspecified Category: Medical Qualifiers: Anemia type: unspecified type Qualified Code(s): D64.9 - Anemia, unspecified Plan: This is likely multifactorial, including due to her recent Hx of GI bleeding, as well as anemia of chronic disease Will continue to monitor her CBC closely for now Follow up with hematology as scheduled - she sees Dr. Bains (12) Renal insufficiency: Code(s): N28.9 - Disorder of kidney and ureter, unspecified Category: Medical Plan: Her renal function appears to have declined over the past month and she now have numbers similar to those seen in CKD stage 3 - this is likely in relation to her recent infection as well as her IV Abx Will continue to monitor her renal function for now and it has been emphasized to patient that she should avoid all potential nephrotoxic Rx as much as po ssible Will recheck her chem profile and renal function in 3 months for follow up (13) Lumbar degenerative disc disease: Code(s): M51.36 - Other intervertebral disc degeneration, lumbar region Category: Medical Qualifiers: Disc-related pain type: discogenic back pain only Qualified Code(s): M51.360 - Other intervertebral disc degeneration, lumbar region with discogenic back pain only Plan: Reinforced activity and weight-lifting restrictions Continue Hydromorphone 2 mg 3 times a day as needed but patient is requesting to have it increased to 4 times a day temporarily while pain management is trying to get her worked up for her low back pain Have advised patient that I will agree to increasing her dosing to 4 times a day when her prescription is due for refill next week She was seen by pain management a few days ago and is sent for an MRI of her lumbar spine for further evaluation - this is currently still awaiting victor manuel haro (14) Osteoarthritis of hip: Code(s): M16.9 - Osteoarthritis of hip, unspecified Category: Medical Qualifiers: Osteoarthritis type: primary Laterality: bilateral Qualified Code(s): M16.0 - Bilateral primary osteoarthritis of hip Plan: She continues to experience increased pain in her right hip despite her arthroplasty followed by revision surgery in 2019 Follow up with orthopedics ([facility]) as scheduled She recalls getting some hip x-rays done at [facility] a few months ago but does not know how her x-rays came out Follow-up with pain management as scheduled (15) Obesity (BMI 30-39.9): Code(s): E66.9 - Obesity, unspecified Category: Medical Plan: Reinforced diet; exercise and weight loss are currently unrealistic expectations due to her multiple comorbidities (16) Breast cancer screening by mammogram: Code(s): Z12.31 - Encounter for screening mammogram for malignant neoplasm of breast Category: Medical Plan: Patient has not had her annual mammogram done in a few years now as she is not able to tolerate standing for prolonged periods of time to allow the mammogram to be completed She is requesting to see the or any other alternative ways of doing her breast cancer screening without requiring her to stand up for long periods of time Have advised patient that I am not aware of any other alternatives but we will [facility] to see if they have any suggestions regarding this Plan Follow up in 3 months Orders: Orders MM tomosynthesis screening BI 02/14/25 Z12.31 - Encounter for screening mammogram for malignant neoplasm of breast Complete Blood Count Auto Diff 3 Months D64.9 - Anemia, unspecified Lipid Panel 3 Months E78.00 - Pure hypercholesterolemia, unspecified Comprehensive Carlock. Panel Fast 3 Months E78.00 - Pure hypercholesterolemia, unspecified TSH reflex Free T4 3 Months E78.00 - Pure hypercholesterolemia, unspecified UA CC w/rflx Micro + Cult 3 Months R30.0 - Dysuria Vitamin D 25-OH Total 3 Months E55.9 - Vitamin D deficiency, unspecified Microalbumin, Random (w Creat) 3 Months E11.9 - Type 2 diabetes mellitus without complications
--- OUTSIDE RECORDS SUMMARY | 2025-02-14 15:50 | XMS_ITS | Clinical Summary ---
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/01/2017 DX:Brugada synd adam Chronic obstructive pulmonar y disease ([facility] V24, [facility] V28) 07/07/2017 DX:Chronic obstructive pulm onary disease (HCC) Diabetes mellitus type 2, un complicated ([facility] V24, [facility] V28) 08/17/2017 DX:Diabetes mellitus type 2 , uncomplicated (HCC) GERD (gastroesophageal reflux disease) 08/17/2017 DX:GERD (gastroesophageal reflux disease) History of pancreatitis 11/10/2017 DX:Histo ry of pancreatitis Hyperlipidemia 08/17/2017 DX:Hyperlipidemi a Hypogammaglobulinemia ([facility] V24) 08/01/2017 DX:Hypogammaglobulinemia (HCC) Hypothyroidism 08/17/2017 DX:Hypothyroidis m 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[facility] V24, [facility] V28) 017 DX: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HCC) Obesity 05/05/2017 DX:Obesity Obstructive sleep apnea syndrome 08/01/2017 DX:Obstructive sleep apnea syndrome; COMMENT: BiPAP Osteoarthritis 08/17/2017 DX:Osteoarthriti s Port-A-Cath in place 11/10/2017 DX:Port-A-C ath in place RA (rheumatoid arthritis) ([facility] V24, [facility] V28) 08/17/2017 DX:RA (rheumatoid arthritis) (HCC) Severe persistent asthma dep endent on systemic steroids ([facility] V28) 11/10/2017 DX:Severe persistent a sthma dependent [...] age to complete this topic Care Teams Web Specialist Relationship Specialty Start Date End Date Cassius Strong MD [address] [place] [address] [address] CONSTANCE Alvarez PCP - General 04/15/11
[2025-02-14 15:51] VITALS: BP 120/86; PULSE 98; O2SAT 96; BMI 39.2
== END 2025-02-14 16:28 | disposition home or self-care (01) ==
LOC: HO.HMCH 15:47
PROVIDERS: PCP Internal Medicine; Visit Provider Internal Medicine
DX: E10.65 Type 1 diabetes mellitus with hyperglycemia (principal); I82.621 Acute embolism and thrombosis of deep veins of right upper extremity; I85.00 Esophageal varices without bleeding; K76.6 Portal hypertension; I10 Essential (primary) hypertension; E78.00 Pure hypercholesterolemia, unspecified; J45.40 Moderate persistent asthma, uncomplicated; E03.9 Hypothyroidism, unspecified; G71.3 Mitochondrial myopathy, not elsewhere classified; K31.89 Other diseases of stomach and duodenum; R79.89 Other specified abnormal findings of blood chemistry; D64.9 Anemia, unspecified

== ENCOUNTER → 2025-02-14 15:46 | Outpatient (BNVA) | payer OTHER, SELFPAY | PROVIDERS: PCP Internal Medicine; Visit Provider Internal Medicine | DX: E10.65 Type 1 diabetes mellitus with hyperglycemia (principal); I10 Essential (primary) hypertension; E78.00 Pure hypercholesterolemia, unspecified; J45.40 Moderate persistent asthma, uncomplicated; E03.9 Hypothyroidism, unspecified; I82.621 Acute embolism and thrombosis of deep veins of right upper extremity; G71.3 Mitochondrial myopathy, not elsewhere classified; I85.00 Esophageal varices without bleeding; K76.6 Portal hypertension; K31.89 Other diseases of stomach and duodenum; R79.89 Other specified abnormal findings of blood chemistry; D64.9 Anemia, unspecified; N28.9 Disorder of kidney and ureter, unspecified; M51.360 Other intervertebral disc degeneration, lumbar region with discogenic back pain only; M16.0 Bilateral primary osteoarthritis of hip; E66.9 Obesity, unspecified; R30.0 Dysuria; E55.9 Vitamin D deficiency, unspecified; Z68.39 Body mass index [BMI] 39.0-39.9, adult; Z79.899 Other long term (current) drug therapy | CPT/HCPCS: 96127; 99212 ==

== ENCOUNTER 2025-02-17 12:29 | Outpatient (AMB) | payer OTHER, SELFPAY ==
--- NOTE | 2025-02-17 12:32 | A.OFFVIS_ITS ---
Vital Signs 02/17/25 12:33 Height 5 ft 4 in Weight 224 lb 13.944 oz BMI 38.6 BP 127/76 Blood Pressure Location Lt brachial Position Sitting Pulse 79 Intake Visit Reasons: 4 month follow up Intake Note: Deysi presents in the office as a 4 month follow up. CC: States she has been having sharp pains on the LRQ. She states that she has constipaton and feels more backed up than anything. She states that she has a pocket in the LRQ that ends up bloating. She is also having back issues and she stats when the pocket sticks out she has issues with her back. Bereavement Program Coordinator Required: No Allergies cephalexin Allergy (Severe, Verified 02/17/25 12:34) Difficulty Breathing latex [LATEX] Allergy (Severe, Verified 02/17/25 12:34) Difficulty Breathing levofloxacin [From LEVAQUIN] Allergy (Severe, Verified 02/17/25 12:34) SHORTNESS OF BREATH, RASH, rash morphine [MORPHINE] Allergy (Severe, Verified 02/17/25 12:34) RASH, asthma exacerbation, rash baclofen [BACLOFEN] Allergy (Intermediate, Verified 02/17/25 12:34) Rash celecoxib [Celebrex] Allergy (Intermediate, Verified 02/17/25 12:34) itching, rash, flushing prednisone [PREDNISONE] Allergy (Intermediate, Verified 02/17/25 12:34) RASH, asthma exacerbation, rash codeine Allergy (Unknown, Verified 02/17/25 12:34) Rash gluten [GLUTEN] Allergy (Unknown, Verified 02/17/25 12:34) UNKNOWN oxycodone Allergy (Unknown, Verified 02/17/25 12:34) rash ranitidine Allergy (Unknown, Verified 02/17/25 12:34) unknown roflumilast [Daliresp] Allergy (Unknown, Verified 02/17/25 12:34) rash tramadol [TRAMADOL] Allergy (Unknown, Verified 02/17/25 12:34) RASH,SHORTNESS OF BREATH AND HEADACHE, asthma exacerbation, rash celery Allergy (Verified 02/17/25 12:34) Rash cyclobenzaprine [From Flexeril] Allergy (Verified 02/17/25 12:34) Rash and asthma exacerbation environmental allergies Allergy (Verified 02/17/25 12:34) Cleaning products cause asthma attack pineapple Allergy (Verified 02/17/25 12:34) Rash strawberry Allergy (Verified 02/17/25 12:34) Rash sulfamethoxazole [From Bactrim] Adverse Reaction (Intermediate, Verified 02/17/25 12:34) vertigo trimethoprim [From Bactrim] Adverse Reaction (Intermediate, Verified 02/17/25 12:34) vertigo diazepam [From Valium] Adverse Reaction (Verified 02/17/25 12:34) Cough HPI HPI 4 month follow up: Details: 54-year-old female with past medical history of Brugada syndorme and non cirrhotic portal hypertension with history of variceal bleeding, who I am seeing for f/u RECAP: Pt with non cirrhotic portal hypertension issues with melena and anemia Upper endoscopy September 2023 with EVBL. Also had multiple gastric polyps. Path: Hyperplastic polyp without dysplasia. No H pylori. Further admission: EGD and colo 11/21/23 EVBL and gastric polyps removed EGD 05/08- nodular Portal HTN, variceal banding She was admitted with hand infection, and developed abdo pain from suspected ileus and constipation INTERIM: she has issues with scoliosis she has issues with constipation and RLQ discomfort she occ has issues with swallowing no nausea or vomiting still taking dilaudid culturelle upset her stomach EXAM: GENERAL: The patient is well developed and nontoxic. VITAL SIGNS:see workflow HEENT: Nonicteric sclerae, PERRLA, EOMI. Oropharynx clear. Moist mucous membranes. Conjunctivae appear well perfused. No thyroid mass. CHEST: Chest wall is nontender. HEART: Regular rate and rhythm without murmurs. LUNGS: Clear to auscultation bilaterally. ABDOMEN: Soft, positive bowel sounds, nontender, no organomegaly.no flank tenderness SKIN: No rash, no excessive bruising, petechiae, or purpura. bandage on hand- left NEUROLOGIC: Cranial nerves II-XII intact without motor/sensory deficit. Psych: normal affect A/P: 1/ NRH of the liver with severe portal hypertension and congestion, prob causing her satiety etc 2/ panc cysts PLAN: 1/ cont with carvedilol and statin 2/ rept MRI in 1 year 3/ try different probiotic like align 4/ repeat EGD at some point [facility] Medical History Acute kidney injury (nontraumatic) Back pain Renal insufficiency Obesity (BMI 30-39.9) Mitochondrial myopathy Diabetes mellitus Portal hypertensive gastropathy Esophageal varices determined by endoscopy Portal hypertension HTN (hypertension) Anemia Chronic restrictive lung disease Brugada syndrome Shortness of breath Encounter for care related to Port-a-Cath Tinea pedis Recurrent cellulitis of lower extremity CHARLES (obstructive sleep apnea) Hypogammaglobulinemia Cellulitis of both lower extremities Right hip pain Lumbar degenerative disc disease Benign essential hypertension Asthma Acquired hypothyroidism Pure hypercholesterolemia Hx of cataract Osteopenia Osteoarthritis of hip Gastritis Surgical History History of revision of total replacement of right hip joint (~12/2019) Hx of hand surgery History of removal of Port-a-Cath History of total right hip arthroplasty (~06/03/19) History of eye surgery (~09/2017) History of hip surgery Hx of foot surgery (~01/02/19) History of removal of cyst Hx of left knee surgery History of elbow surgery (~07/2016) Hx of thumb surgery Hx of appendectomy Hx of hysterectomy (~07/2011) Hx of bilateral breast reduction surgery Family History Father Leukemia Mother Hypertension Diabetes Sister Alive and well Brother Pancreatic cancer Paternal Grandmother Stomach cancer Paternal Grandmother Throat cancer Social History Household Members: Family Housing: Apartment Do you presently have visiting nurse or other home services: No Alcohol intake: never Comment: refused bed alarm Patient Tobacco Use Status: Never used Tobacco e-Cigarette/Vaping Use: Never Used Second Hand Smoke Exposure: No Advance Directives Date on File: 10/02/23 service: No Current occupational status: disabled Current occupation: rt handed Cognitive needs: No Hearing needs: No Vision needs: No Physical Exam Vital Signs: Last Vital Signs Pulse 79 02/17/25 12:33 BP 127/76 02/17/25 12:33 BMI result Body Mass Index 38.6 Assessment & Plan Assessment & Plan (1) Pancreatic cyst: Code(s): K86.2 - Cyst of pancreas Category: Medical Plan: as above Medications: New lactulose 10 grams (15 mL) PO DAILY PRN 3,785 mL 1RF constipation Coding Level of Care Code Est Pt Level 3 (61424) Diagnoses Pancreatic cyst K86.2
[2025-02-17 12:33] VITALS: BP 127/76; PULSE 79; BMI 38.6
--- OUTSIDE RECORDS SUMMARY | 2025-02-17 14:01 | XMS_ITS | Clinical Summary ---
Author Organization [facility] Address [address] [place] [address] Care Team Providers Care Explosive Expert Name Role Phone Cassius Strong MD Primary Care Provider Surgical History Surgery Date Site/Laterality Comments HYSTERECTOMY PROCEDURE: HISTORICAL HYSTERECTOMY FOOT SURGERY PROCEDURE: HISTORICAL FOOT SURGERY APPENDECTOMY PROCEDURE: HISTORICAL APPENDECTOMY Medical History Medical History Date Comments Brugada syndrome 08/01/2017 DX:Brugada synd adam Chronic obstructive pulmonar y disease ([facility] V24, [facility] V28) 07/07/2017 DX:Chronic obstructive pulm onary disease (HCC) Diabetes mellitus type 2, un complicated ([facility] V24, [facility] V28) 08/17/2017 DX:Diabetes mellitus type 2 , uncomplicated (HCC) GERD (gastroesophageal reflux disease) 08/17/2017 DX:GERD (gastroesophageal reflux disease) History of pancreatitis 11/10/2017 DX:Histo ry of pancreatitis Hyperlipidemia 08/17/2017 DX:Hyperlipidemi a Hypogammaglobulinemia ([facility] V24) 08/01/2017 DX:Hypogammaglobulinemia (HCC) Hypothyroidism 08/17/2017 DX:Hypothyroidis m 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[facility] V24, [facility] V28) 017 DX: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HCC) Obesity 05/05/2017 DX:Obesity Obstructive sleep apnea syndrome 08/01/2017 DX:Obstructive sleep apnea syndrome; COMMENT: BiPAP Osteoarthritis 08/17/2017 DX:Osteoarthriti s Port-A-Cath in place 11/10/2017 DX:Port-A-C ath in place RA (rheumatoid arthritis) ([facility] V24, [facility] V28) 08/17/2017 DX:RA (rheumatoid arthritis) (HCC) Severe persistent asthma dep endent on systemic steroids ([facility]/HCC V28) 11/10/2017 DX:Severe persistent a sthma dependent [...] age to complete this topic Care Teams Explosive Expert Relationship Specialty Start Date End Date Cassius Strong MD [address] [place] [address] [address] CONSTANCE Alvarez PCP - General 04/15/11
--- OUTSIDE RECORDS SUMMARY | 2025-02-17 14:01 | XMS_ITS | Patient Health Record ---
Author Organization [facility] Address [address] [place] [address] Care Team Providers Care Ship Painter Helper Name Role Phone Cassius Strong Primary Care Provider Colin Mercado Unavailable [phone] ALLERGIES Allergen (clinical drug ingredient) Drug/Non Drug Allergy documented on EMR Reaction Allergy Type Onset Date Status Apples/Midway/Leda ts/Pineapple/Strawb erry/Onion (uncoded) Unknown Allergy Active Gluten [...] out er thigh IM prn Active Ipratropium [place] 0.02 % Inhalation Active Medrol 16 MG [...] Notes Problem Food allergy (Z91.018) Active confirmed 454500524 Problem 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) Active confirmed 919116357 Problem Osteopenia (M85.80) Active confirmed 190018920 Problem Severe persistent asthma, uncomplicated (J45.50) Active confirmed 584691802 Problem Pancreatitis (K85.9) Active confirmed 83290088 Problem Steroid-dependent asthma (J45.909) Active confirmed [id number] Problem Insulin dependent diabetes mellitus with complications (E11.8) Active confirmed 94169802 Problem Myasthenia gravis (G70.00) Active confirmed [id number] PLAN OF TREATMENT No Information Insurance Providers Payer Name Payer Address Payer Phone Subscriber Number Group Number Insured Name Patient Relationship to Insured Coverage Start Date Coverage End Date Medicare/[facility] [employer] [address] [place] [phone] [id number] Kala Deysi Self - patient is the insured Medicaid [address] [place] [address] [id number] Deysi Armendariz Self - patient is the [...]
== END 2025-02-17 13:03 | disposition home or self-care (01) ==
LOC: HO.HGI 12:29
PROVIDERS: PCP Internal Medicine; Visit Provider Internal Medicine Gastroenterology
DX: K86.2 Cyst of pancreas (principal)
CPT/HCPCS: 99213

== ENCOUNTER → 2025-02-17 12:29 | Outpatient (BNVA) | payer OTHER, SELFPAY | PROVIDERS: PCP Internal Medicine; Visit Provider Internal Medicine Gastroenterology | DX: K86.2 Cyst of pancreas (principal) | CPT/HCPCS: 99212 ==

== ENCOUNTER 2025-02-27 11:16 | Outpatient (AMB) | payer OTHER, SELFPAY ==
[2025-02-27 11:19] VITALS: BP 146/70; PULSE 74; O2SAT 96; BMI 39.9
--- NOTE | 2025-02-27 11:19 | A.OFFVIS_ITS ---
Vital Signs 02/27/25 11:19 Height 5 ft 4 in Weight 232 lb 9.403 oz BMI 39.9 BP 146/70 H Blood Pressure Location Lt brachial Position Sitting Pulse 74 Pulse Source Pulse Oximeter Pulse Oximetry (%) 96 Oxygen Delivery Method Room Air Intake Visit Reasons: COPD Allergies cephalexin Allergy (Severe, Verified 02/27/25 11:22) Difficulty Breathing latex [LATEX] Allergy (Severe, Verified 02/27/25 11:) Difficulty Breathing levofloxacin [From LEVAQUIN] Allergy (Severe, Verified 02/27/25 11:) SHORTNESS OF BREATH, RASH, rash morphine [MORPHINE] Allergy (Severe, Verified 02/27/25 11:) RASH, asthma exacerbation, rash baclofen [BACLOFEN] Allergy (Intermediate, Verified 02/27/25 11:) Rash celecoxib [Celebrex] Allergy (Intermediate, Verified 02/27/25 11:) itching, rash, flushing prednisone [PREDNISONE] Allergy (Intermediate, Verified 02/27/25 11:) RASH, asthma exacerbation, rash codeine Allergy (Unknown, Verified 02/27/25 11:) Rash gluten [GLUTEN] Allergy (Unknown, Verified 02/27/25 11:) UNKNOWN oxycodone Allergy (Unknown, Verified 02/27/25 11:) rash ranitidine Allergy (Unknown, Verified 02/27/25 11:) unknown roflumilast [Daliresp] Allergy (Unknown, Verified 02/27/25 11:) rash tramadol [TRAMADOL] Allergy (Unknown, Verified 02/27/25 11:) RASH,SHORTNESS OF BREATH AND HEADACHE, asthma exacerbation, rash celery Allergy (Verified 02/27/25 11:22) Rash cyclobenzaprine [From Flexeril] Allergy (Verified 02/27/25 11:22) Rash and asthma exacerbation environmental allergies Allergy (Verified 02/27/25 11:22) Cleaning products cause asthma attack pineapple Allergy (Verified 02/27/25 11:) Rash strawberry Allergy (Verified 02/27/25 11:22) Rash sulfamethoxazole [From Bactrim] Adverse Reaction (Intermediate, Verified 02/27/25 11:22) vertigo trimethoprim [From Bactrim] Adverse Reaction (Intermediate, Verified 02/27/25 11:22) vertigo diazepam [From Valium] Adverse Reaction (Verified 02/27/25 11:22) Cough HPI Comments Details: The patient is a 54-year-old woman with known severe persistent asthma, hypogammaglobulinemia and obstructive sleep apnea. She has had significant iss ues with osteopenia and osteoporosis due to chronic steroid use. Currently she is using crutches. She did have surgery to her hip but still having issues with pain. She has been off the Medrol now for some time. She has been taking IVIG for her immunodeficiency with good effect. In in she also continues with respiratory therapy. When she started on Dupixent for her severe asthma she was able to wean off the Medrol. 05/09/2022 the patient is here for a pulmonary follow-up visit. The patient overall has been having increasing dyspnea on exertion. Fixv-pt-huxtswrz severity. She also complains of cough. She did try the Anoro but she could not tolerated. Therefore she stopped it. She continues on the Asmanex. she has not used her short-acting beta agonist. She continues on the Fasenra injections which appeared to be effective for her. The meantime she is having significant foot pain. She is going to have removal hardware from her but next week. I do believe that her worsening dyspnea is likely from deconditioning specially that she has a hard time walking now with her musculoskeletal issues. She did undergo pulmonary function studies in order to have her participate in pulmonary rehabilitation. she appears to have a restrictive ventilatory defect consistent with restrictive lung disease. The patient will benefit from pulmonary rehabilitation at this time. 11/10/2022 the patient is here for a pulmonary follow-up visit. Since we last spoke she had 1 brief exacerbation. She did require course of steroids. She initially call the office and we could not see her and she also call the primary care doctor who could not see her as well. Therefore she was recommended to go to the ED. However she was concerned about potential exposures while in the ED. Therefore she stayed home and she took additional Medrol. Currently she is doing better. She denies any chest congestion. She continues to have some dyspnea on exertion. Mzni-gb-htkkkqye severity. She continues on her allergy therapy. She is also using the Fasenra injections with good results. She continues on IVIG. 09/14/2023 the patient is here for a pulmonary follow-up visit. The patient overall doing well. Since we last spoke she did require antibiotics and Medrol once or twice. She is feeling better though. She does take care of her grandkids and exposed to viral syndromes. She tries to be careful though. In the meantime I will send her another script for Medrol for to hold just in case her symptoms worsen again. Patient knows that she is to be careful with taking steroid specially since she was on chronic steroids before will try to avoid that. In the meantime she does continue with her IVIG therapy a her inconsistent use with her Fasenra injections. We did review her recent blood work. She is anemic with a hemoglobin of 10.7. She is going to have that recheck again in 3 months. But with all the her all comorbidities anemia can also worsening shortness of breath. In addition to that will have her check a venous blood gas the next time she gets blood work to make sure she is that she is not retaining CO2. When she comes back in 3-4 months will have a her undergo pulmonary function studies to assess the lung capacity in view of her significant scoliosis and underlying obstructive airway disease. 01/25/2024 the patient is here for pulmonary follow-up visit. She is doing well from a respiratory status. She did see the golf course architect in her IVIG was stopped because the levels were good. Subsequently after that she started developing a GI bleed and anemia. She was evaluated by GI and she was found to have portal hypertension. Subsequently after that she was diagnosed with cirrhosis. They recommended a liver biopsy although she has not had as of yet. Her liver function still normal. She did undergo pulmonary function studies. They appeared to be normal except for mild restriction likely secondary to her body habitus and also her neuromuscular disease. At this point she has been evaluated for her liver cirrhosis. She appears to be volume overloaded with some pitting edema bilaterally. The patient needs to be diuresed time. To continue to follow-up with GI. She has contemplating a biopsy. Explained to her if the biopsy is going to ptosis reasonable to pursue. 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 07/26/2024 the patient is here for pulmonary follow-up visit. Overall she is doing better. She did have a sick visit last week because of worsening respiratory symptoms after an exposure. She was placed on Medrol and she seems to be doing better. Although she does have productive cough and chest congestion. Will start her on Augmentin as well. She has also has a respiratory medications and she continues with her IVIG. The patient also had gastric banding is unclear why she has portal hypertension. Will go ahead and request an echocardiogram to make sure that she does not have any significant issues with a heart them to be affecting the blood flow and her liver spleen and ultimately varices. She continues with diuretics. The patient also will go for chest x-ray. Will follow-up in 3 months. If she has any worsening symptoms she will call for an earlier assessment. 10/28/2024 the patient is here for a pulmonary follow-up visit. Overall the patient has been doing okay. She does complain of increasing dyspnea on exertion. She feels like it is in part because of her scoliosis that seems to be getting worse. She is leaning to the right side a lot. She also has been dealing with a wound infection. She had surgery of her hand and then got a serious Staph infection required IV antibiotics and ultimately ended up getting a DVT because of the catheter. Now she is on Xarelto. The patient does have a weakened immune system and therefore she is at risk for infections. She needs to try to avoid any kind of surgical procedures her semi invasive procedures that can lead to infections. Having significant back pain. This is affecting her breathing specially with her scoliosis. I did give her an incentive spirometer for her to work on deep breathing exercises. We did look at her back and she does have significant issues with the kyphoscoliosis. I wonder if this a brace that she can use to help her with her issues. I will go ahead and refer her to physiatry in order to assess for noninvasive nonsurgical approaches to her back pain and scoliosis. 02/27/2025 the patient is here for a pulmonary follow-up visit. Overall she is doing fair. She did develop significant back pain. Then developed a rash. She went to urgent Care was diagnosed with shingles. Currently on antiviral therapy. She does complaint of worsening breathing and chest tightness at times. She is dealing with significant back pain as well. She is following closely with pain management. Going to try doing MRI or imaging studies in the back and then therapy most likely after that. She does respond well to the current respiratory therapy.. She does take bent Medrol sometimes. She understands that she needs to be very careful specially with significant bony abnormalities. Will continue current respiratory therapy will follow-up in 6 months. [facility] Medical History Acute kidney injury (nontraumatic) Back pain Renal insufficiency Obesity (BMI 30-39.9) Mitochondrial myopathy Diabetes mellitus Portal hypertensive gastropathy Esophageal varices determined by endoscopy Portal hypertension HTN (hypertension) Anemia Chronic restrictive lung disease Brugada syndrome Shortness of breath Encounter for care related to Port-a-Cath Tinea pedis Recurrent cellulitis of lower extremity CHARLES (obstructive sleep apnea) Hypogammaglobulinemia Cellulitis of both lower extremities Right hip pain Lumbar degenerative disc disease Benign essential hypertension Asthma Acquired hypothyroidism Pure hypercholesterolemia Hx of cataract Osteopenia Osteoarthritis of hip Gastritis Surgical History History of revision of total replacement of right hip joint (~12/2019) Hx of hand surgery History of removal of Port-a-Cath History of total right hip arthroplasty (~06/03/19) History of eye surgery (~09/2017) History of hip surgery Hx of foot surgery (~01/02/19) History of removal of cyst Hx of left knee surgery History of elbow surgery (~07/2016) Hx of thumb surgery Hx of appendectomy Hx of hysterectomy (~07/2011) Hx of bilateral breast reduction surgery Family History Father Leukemia Mother Hypertension Diabetes Sister Alive and well Brother Pancreatic cancer Paternal Grandmother Stomach cancer Paternal Grandmother Throat cancer Social History Household Members: Family Housing: Apartment Do you presently have visiting nurse or other home services: No Alcohol intake: never Comment: refused bed alarm Patient Tobacco Use Status: Never used Tobacco e-Cigarette/Vaping Use: Never Used Second Hand Smoke Exposure: No Advance Directives Date on File: 10/02/23 service: No Current occupational status: disabled Current occupation: rt handed Cognitive needs: No Hearing needs: No Vision needs: No Review of Systems Const Denies chills, Denies fatigue, Denies fever(s), Denies weight gain and Denies weight loss ENT Denies dizziness Card Denies chest pain, Denies leg edema, Denies lightheadedness, Denies palpitations, Denies dyspnea on exertion, Denies orthopnea and Denies other Resp Denies cough and Denies dyspnea on exertion GI Denies hematochezia and Denies change in stool character Denies nocturia, Denies dysuria and Denies urinary urgency Musc Denies abnormal gait, Denies muscle weakness, Denies numbness, Denies radiating pain into limb and Denies tingling Skin/Breast Denies rash Neuro Denies abnormal gait, Denies dizziness, Denies numbness and Denies tingling Endo Denies fatigue and Denies palpitations Umair/Lymph Details: (+) swelling of the right arm Physical Exam Vital Signs: Last Vital Signs Pulse 74 02/27/25 11:19 BP 146/70 H 02/27/25 11:19 Pulse Ox 96 02/27/25 11:19 Oxygen Delivery Method Room Air 02/27/25 11:19 BMI result Body Mass Index 39.9 Assessment & Plan Assessment & Plan (1) Asthma: Code(s): J45.909 - Unspecified asthma, uncomplicated Category: Medical Qualifiers: Asthma severity: moderate Asthma persistence: persistent Asthma complication type: uncomplicated Qualified Code(s): J45.40 - Moderate persistent asthma, uncomplicated (2) Hypogammaglobulinemia: Comment: better, off IVIG Code(s): D80.1 - Nonfamilial hypogammaglobulinemia Category: Medical (3) CHARLES (obstructive sleep apnea): Code(s): G47.33 - Obstructive sleep apnea (adult) (pediatric) Category: Medical (4) Chronic restrictive lung disease: Code(s): J98.4 - Other disorders of lung Category: Medical (5) Portal hypertension: Code(s): K76.6 - Portal hypertension Category: Medical (6) Back pain: Code(s): M54.9 - Dorsalgia, unspecified Category: Medical Qualifiers: Back pain location: back pain in unspecified location Chronicity: chronic Back pain laterality: unspecified Qualified Code(s): M54.9 - Dorsalgia, unspecified; G89.29 - Other chronic pain Plan continue Fasenra injections allergy continue singular Asmanex short-acting beta agonist as needed Physiatry referral ?PT or brace for her back. Tends to lean to her right side. follow-up 4 months Medications: New lidocaine 5% (Lidoderm) leave on most painful area for up to 12 hrs 1 patch topical DAILY 30 days 30 ea 4RF B02.29 - Other postherpetic nervous system involvement Refilled methylprednisolone (Medrol (Jarrett)) orally daily; take 2 tabs daily twice a day x 4, then 1 tab twice a day x 4 days, then 1 tab daily x 4 days 12 days 28 ea 0RF Coding Level of Care Code Est Pt Level 4 (48014) Complex EM visit Add On G2211 Diagnoses Moderate persistent asthma without complication J45.40 Asthma severity: moderate Asthma persistence: persistent Asthma complication type: uncomplicated Hypogammaglobulinemia D80.1 CHARLES (obstructive sleep apnea) G47.33 Chronic restrictive lung disease J98.4 Portal hypertension K76.6 Chronic back pain, unspecified back location, unspecified back pain laterality M54.9; G89.29 Back pain location: back pain in unspecified location Chronicity: chronic Back pain laterality: unspecified Time Spent (min) 16
--- OUTSIDE RECORDS SUMMARY | 2025-02-27 12:30 | XMS_ITS | Clinical Summary ---
Author Organization [facility] Address [address] [place] [address] Care Team Providers Care Modeling Analyst Name Role Phone Cassius Strong MD Primary Care Provider Surgical History Surgery Date Site/Laterality Comments HYSTERECTOMY PROCEDURE: HISTORICAL HYSTERECTOMY FOOT SURGERY PROCEDURE: HISTORICAL FOOT SURGERY APPENDECTOMY PROCEDURE: HISTORICAL APPENDECTOMY Medical History Medical History Date Comments Brugada syndrome 08/01/2017 DX:Brugada synd adam Chronic obstructive pulmonar y disease ([facility] V24, [facility] V28) 07/07/2017 DX:Chronic obstructive pulm onary disease (HCC) Diabetes mellitus type 2, un complicated ([facility] V24, [facility] V28) 08/17/2017 DX:Diabetes mellitus type 2 , uncomplicated (HCC) GERD (gastroesophageal reflux disease) 08/17/2017 DX:GERD (gastroesophageal reflux disease) History of pancreatitis 11/10/2017 DX:Histo ry of pancreatitis Hyperlipidemia 08/17/2017 DX:Hyperlipidemi a Hypogammaglobulinemia ([facility] V24) 08/01/2017 DX:Hypogammaglobulinemia (HCC) Hypothyroidism 08/17/2017 DX:Hypothyroidis m 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[facility] V24, [facility] V28) 017 DX: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HCC) Obesity 05/05/2017 DX:Obesity Obstructive sleep apnea syndrome 08/01/2017 DX:Obstructive sleep apnea syndrome; COMMENT: BiPAP Osteoarthritis 08/17/2017 DX:Osteoarthriti s Port-A-Cath in place 11/10/2017 DX:Port-A-C ath in place RA (rheumatoid arthritis) ([facility] V24, [facility] V28) 08/17/2017 DX:RA (rheumatoid arthritis) (HCC) Severe persistent asthma dep endent on systemic steroids ([facility]/HCC V28) 11/10/2017 DX:Severe persistent a sthma dependent [...] age to complete this topic Care Teams Modeling Analyst Relationship Specialty Start Date End Date Cassius Strong MD [address] [place] [address] [address] CONSTANCE Alvarez PCP - General 04/15/11
--- OUTSIDE RECORDS SUMMARY | 2025-02-27 12:30 | XMS_ITS | Patient Health Record ---
Author Organization [facility] Address [address] [place] [address] Care Team Providers Care Master [place] Name Role Phone Cassius Strong Primary Care Provider Colin Mercado Unavailable [phone] ALLERGIES Allergen (clinical drug ingredient) Drug/Non Drug Allergy documented on EMR Reaction Allergy Type Onset Date Status Apples/[place]/Leda ts/Pineapple/Strawb erry/Onion (uncoded) Unknown Allergy Active Gluten [...] out er thigh IM prn Active Ipratropium [place] 0.02 % Inhalation Active Medrol 16 MG [...] Notes Problem Food allergy (Z91.018) Active confirmed 572985946 Problem 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) Active confirmed 013820117 Problem Osteopenia (M85.80) Active confirmed 134246610 Problem Severe persistent asthma, uncomplicated (J45.50) Active confirmed 232732228 Problem Pancreatitis (K85.9) Active confirmed 40085258 Problem Steroid-dependent asthma (J45.909) Active confirmed [id number] Problem Insulin dependent diabetes mellitus with complications (E11.8) Active confirmed 00548578 Problem Myasthenia gravis (G70.00) Active confirmed [id number] PLAN OF TREATMENT No Information Insurance Providers Payer Name Payer Address Payer Phone Subscriber Number Group Number Insured Name Patient Relationship to Insured Coverage Start Date Coverage End Date Medicare/[facility] [employer] [address] [place] [phone] [id number] Kala Deysi Self - patient is the insured Medicaid [address] [place] [address] [phone] [id number] Deysi Armendariz Self - patient is the [...]
== END 2025-02-27 11:43 | disposition home or self-care (01) ==
LOC: HO.HPS 11:17
PROVIDERS: PCP Internal Medicine; Visit Provider Hospitalist
DX: J45.40 Moderate persistent asthma, uncomplicated (principal); D80.1 Nonfamilial hypogammaglobulinemia; G47.33 Obstructive sleep apnea (adult) (pediatric); J98.4 Other disorders of lung; K76.6 Portal hypertension; M54.9 Dorsalgia, unspecified; G89.29 Other chronic pain
CPT/HCPCS: 99214; G2211

== ENCOUNTER → 2025-02-27 11:16 | Outpatient (BNVA) | payer OTHER, SELFPAY | PROVIDERS: PCP Internal Medicine; Visit Provider Hospitalist | DX: J45.40 Moderate persistent asthma, uncomplicated (principal); J98.4 Other disorders of lung; D80.1 Nonfamilial hypogammaglobulinemia; G47.33 Obstructive sleep apnea (adult) (pediatric); K76.6 Portal hypertension; M54.9 Dorsalgia, unspecified | CPT/HCPCS: 99212 ==

== ENCOUNTER 2025-03-11 14:09 | Emergency (ER) | payer OTHER, SELFPAY ==
--- NOTE | ~2025-03-11 | CT_ITS ---
CLINICAL HISTORY: LLQ abd pain, eval for diverticulitis CT abdomen and pelvis with contrast Comparison: CT/[place]/SR - CT ABDOMEN PELVIS W IV CON - 08/19/24 19:43 EST Findings: CT abdomen: No infiltrates within the lung bases. Unchanged dystrophic calcifications in the right breast, possibly posttraumatic or postprocedural. Smaller calcifications within the left breast. No acute fractures. Multilevel degenerative disc disease and degenerative facet disease throughout the thoracolumbar spine with convex right upper lumbar curvature and convex left mid lumbar curvature. Multilevel partial bony ankylosis throughout the lumbar spine is also evident. Air-filled distention of the distal esophagus with small hiatal hernia. Stomach is decompressed. No dilated small bowel. Diffuse mesenteric induration. No free fluid or free air. Fat containing ventral hernia to the right of midline. No focal hepatic lesions. Main portal vein is patent. Borderline splenomegaly without focal splenic lesion. Unchanged cyst within the pancreatic tail measuring 12 mm in size. No pancreatic ductal dilatation or peripancreatic inflammatory stranding. No calcified gallstones. Adrenal glands and kidneys are unremarkable for acute findings. CT pelvis: Metal artifact from the patient's right hip arthroplasty. Moderate sigmoid diverticulosis without diverticulitis. Moderate stool throughout the colon. Scattered induration throughout the mesenteric fat. No free fluid or free air. Uterus is surgically absent. Impression: 1. Nonspecific induration throughout the mesenteric fat. This can be seen with mesenteric adenitis or enteritis. 2. Colonic diverticulosis without diverticulitis. 3. Unchanged cystic lesion within the pancreatic tail. Please see prior report for follow-up recommendations. This document has been electronically signed by: Richard Carranza MD on 03/11/2025 23:13:59
[2025-03-11 14:15] VITALS: BP 144/103; PULSE 115; RESP 20; TEMP 37.5; O2SAT 96; BMI 38.5
--- NOTE | 2025-03-11 14:16 | ED_ITS ---
HPI - Abdominal Pain General Chief Complaint: Abdominal Pain Stated Complaint: Abd pain Time Seen by Provider: 03/11/25 19:57 Source: patient, RN notes reviewed and old records reviewed Mode of arrival: ambulatory Limitations: no limitations History of Present Illness ED Provider: Dr. Yen Skaggs HPI narrative: 54-year-old female with history of diabetes, hypertension, hyperlipidemia, liver cirrhosis with esophageal varices and portal hypertension, Brugada syndrome and hypothyroidism presenting with abdominal pain, nausea and decreased appetite ongoing for the last 3 weeks after being diagnosed with shingles. She was originally started on valacyclovir and changed to famciclovir when she had a bad reaction. Patient describes episodic pain that is poorly localized. Today she felt her pain was induced by drinking tap water. No reported associated fevers or vomiting. Had to take a dose of ?some liquid laxative? to have a bowel movement today which was reportedly normal in color and texture. States she feels her mouth is ?very dry and peeling?. Related Data Home Medications ?Medication ?Instructions ?Recorded ?Confirmed ipratropium bromide 42 mcg (0.06 2 spray intranasal DAILY 03/11/21 02/15/25 %) nasal spray benralizumab 30 mg/mL subcutaneous 30 mg subcut Q8W 10/06/22 02/15/25 syringe (Fasenra) nebulizers 03/09/23 02/15/25 epinephrine 0.3 mg/0.3 mL 0.3 mg IM Q5M PRN anaphylaxis 04/15/24 02/15/25 injection, auto-injector calcium citrate 250 mg PO BID 08/18/24 02/15/25 insulin aspart 1 sliding scale dose subcut TIDAC 08/18/24 02/15/25 (niacinamide)(U-100) 100 unit/mL(3 mL) subcutaneous pen (Fiasp FlexTouch U-100 Insulin) pyridostigmine bromide 60 mg tablet 60 mg PO QID 08/18/24 02/15/25 tiotropium bromide 1.25 2 puff inhalation DAILY 08/18/24 02/15/25 mcg/actuation mist for inhalation (Spiriva Respimat) fluticasone propionate 220 inhalation 02/10/25 02/15/25 mcg/actuation HFA aerosol inhaler azelastine 137 mcg (0.1 %) nasal intranasal 02/17/25 spray Previous Rx's ?Medication ?Instructions ?Recorded blood pressure monitor #1 ea 01/21/23 DIABETIC SHOES #1 ea 11/29/23 atorvastatin 40 mg tablet 40 mg PO BEDTIME #90 tabs 07/03/24 montelukast 10 mg tablet 10 mg PO BEDTIME 90 days #90 tabs 07/05/24 losartan 25 mg tablet 25 mg PO BEDTIME 90 days #90 tabs 07/26/24 levalbuterol tartrate 45 2 puff inhalation Q6H PRN 09/03/24 mcg/actuation aerosol inhaler shortness of breath or wheezing 30 (Xopenex HFA) days #15 grams carvedilol 6.25 mg tablet 6.25 mg PO DAILY for blood 10/10/24 pressure #270 tabs rivaroxaban 20 mg tablet (Xarelto) 20 mg PO DAILY 90 days #90 tabs 10/11/24 fluconazole 100 mg tablet 100 mg PO DAILY 14 days #14 tabs 10/28/24 nystatin 100,000 unit/gram topical 1 appl topical BID PRN rash #60 11/08/24 powder (Nystop) grams ferrous sulfate 325 mg (65 mg 325 mg PO DAILY #90 tabs 11/22/24 iron) tablet (FeroSul) cholecalciferol (vitamin D3) 50 100 mcg (2 x 50 mcg (2,000 unit)) 12/31/24 mcg (2,000 unit) capsule PO BEDTIME #90 caps walker #1 ea 01/21/25 blood sugar diagnostic (FreeStyle #150 ea 02/04/25 Lite Strips) lancets 28 gauge (FreeStyle #150 ea 02/04/25 Lancets) pen needle, diabetic 32 gauge x #200 ea 02/04/25 tizanidine 2 mg tablet 4 mg (2 x 2 mg) PO BEDTIME PRN for 02/09/25 muscle spasm 30 days #60 tabs loratadine 10 mg tablet 10 mg PO DAILY #90 tabs 02/12/25 insulin degludec 100 unit/mL (3 See Rx Instructions subcut DAILY 02/13/25 mL) subcutaneous pen (Tresiba 90 days #27 mL FlexTouch U-100 insulin) ondansetron 8 mg disintegrating 8 mg PO Q8H PRN nausea and 05/02/25 tablet vomiting 10 days #30 tabs lactulose 10 gram/15 mL oral 10 g (15 mL) PO DAILY PRN 02/17/25 solution constipation #3,785 mL famciclovir 500 mg tablet 500 mg PO Q8H 7 days #21 tabs 02/26/25 lidocaine 5 % topical patch 1 patch topical DAILY 30 days #30 02/27/25 (Lidoderm) ea methylprednisolone 4 mg tablets in See Rx Instructions PO DAILY 12 02/27/25 a dose pack (Medrol (Jarrett)) days #28 ea hydromorphone 2 mg tablet 2 mg PO TID-QID PRN pain 7 days 03/06/25 #25 tabs omeprazole 40 mg capsule,delayed 40 mg PO BID gastritis #180 caps 03/06/25 release Synthroid 112 mcg tablet 224 mcg (2 x 112 mcg) PO DAILY #60 03/11/25 (levothyroxine) tabs Allergies Allergy/AdvReac Type Severity Reaction Status Date / Time cephalexin Allergy Severe Difficulty Verified 03/11/25 14:19 Breathing latex [LATEX] Allergy Severe Difficulty Verified 03/11/25 14:19 Breathing levofloxacin [From LEVAQUIN] Allergy Severe SHORTNESS Verified 03/11/25 14:19 OF BREATH, RASH, rash morphine [MORPHINE] Allergy Severe RASH, Verified 03/11/25 14:19 asthma exacerbation, rash baclofen [BACLOFEN] Allergy Intermediate Rash Verified 03/11/25 14:19 celecoxib [Celebrex] Allergy Intermediate itching, Verified 03/11/25 14:19 rash, flushing prednisone [PREDNISONE] Allergy Intermediate RASH, Verified 03/11/25 14:19 asthma exacerbation, rash codeine Allergy Unknown Rash Verified 03/11/25 14:19 gluten [GLUTEN] Allergy Unknown UNKNOWN Verified 03/11/25 14:19 oxycodone Allergy Unknown rash Verified 03/11/25 14:19 ranitidine Allergy Unknown unknown Verified 03/11/25 14:19 roflumilast [Daliresp] Allergy Unknown rash Verified 03/11/25 14:19 tramadol [TRAMADOL] Allergy Unknown RASH,SHORTNESS Verified 03/11/25 14:19 OF BREATH AND HEADACHE, asthma exacerbation, rash celery Allergy Rash Verified 03/11/25 14:19 cyclobenzaprine Allergy Rash and Verified 03/11/25 14:19 [From Flexeril] asthma exacerbation environmental allergies Allergy Cleaning Verified 03/11/25 14:19 products cause asthma attack pineapple Allergy Rash Verified 03/11/25 14:19 strawberry Allergy Rash Verified 03/11/25 14:19 sulfamethoxazole AdvReac Intermediate vertigo Verified 03/11/25 14:19 [From Bactrim] trimethoprim [From Bactrim] AdvReac Intermediate vertigo Verified 03/11/25 14:19 diazepam [From Valium] AdvReac Cough Verified 03/11/25 14:19 Review of Systems Review of Systems Yes all other systems are reviewed and are negative [facility], [facility] Past Medical History Attestation statement: The following information was validated with the patient. Source: old records reviewed Medical History Acute kidney injury (nontraumatic) Back pain Renal insufficiency Obesity (BMI 30-39.9) Mitochondrial myopathy Diabetes mellitus Portal hypertensive gastropathy Esophageal varices determined by endoscopy Portal hypertension HTN (hypertension) Anemia Chronic restrictive lung disease Brugada syndrome Shortness of breath Encounter for care related to Port-a-Cath Tinea pedis Recurrent cellulitis of lower extremity CHARLES (obstructive sleep apnea) Hypogammaglobulinemia Cellulitis of both lower extremities Right hip pain Lumbar degenerative disc disease Benign essential hypertension Asthma Acquired hypothyroidism Pure hypercholesterolemia Hx of cataract Osteopenia Osteoarthritis of hip Gastritis Surgical History History of revision of total replacement of right hip joint (~12/2019) Hx of hand surgery History of removal of Port-a-Cath History of total right hip arthroplasty (~06/03/19) History of eye surgery (~09/2017) History of hip surgery Hx of foot surgery (~01/02/19) History of removal of cyst Hx of left knee surgery History of elbow surgery (~07/2016) Hx of thumb surgery Hx of appendectomy Hx of hysterectomy (~07/2011) Hx of bilateral breast reduction surgery Family History Family History Father Leukemia Mother Hypertension Diabetes Sister Alive and well Brother Pancreatic cancer Paternal Grandmother Stomach cancer Paternal Grandmother Throat cancer Social History Social History Household Members: Family Housing: Apartment Do you presently have visiting nurse or other home services: No Alcohol intake: never Comment: refused bed alarm Patient Tobacco Use Status: Never used Tobacco e-Cigarette/Vaping Use: Never Used Second Hand Smoke Exposure: No Advance Directives: Yes Advance Directives on File: Yes Advance Directives Date on File: 10/02/23 service: No Current occupational status: disabled Current occupation: rt handed Cognitive needs: No Hearing needs: No Vision needs: No Physical Exam ED Vital Signs: Vital Signs - 24 hr 03/11/25 14:15 03/11/25 20:21 03/11/25 22:26 Temperature 99.5 F 97.8 F Pulse Rate 115 H 111 H Respiratory Rate 20 20 18 Blood Pressure 144/103 H 133/75 Pulse Oximetry 96 98 Oxygen Delivery Method Room Air Room Air BMI result Body Mass Index 38.5 GENERAL: Ill-Appearing, appears uncomfortable. SKIN: Normal skin color for ethnicity, warm, dry, no rashes noted. HEENT: Normocephalic, atraumatic, no stridor, dry mucous membranes, dentition intact, EOMI. NECK: Soft, supple, full ROM, midline structures nontender, no step-offs, no deformities, no lymphadenopathy. CHEST: Heart regular tachycardia, no murmurs, symmetric chest rise and fall. PULMONARY: Clear to auscultation bilaterally, diminished at the bases, no labored breathing, no wheezes/rhales/rhonchi. ABDOMINAL: Softly distended, diffusely tender to palpation, left greater than right, quiet bowel sounds in all quadrants. : Deferred. MUSCULOSKELETAL: Normal tone, full range of motion, no deformities, no peripheral edema. NEURO: Alert and oriented x3, CN II through XII intact, equal strength and sensation bilateral upper and lower extremities, no focal neurologic deficits. PSYCHIATRIC: Flat affect, fluid speech, good eye contact and appropriate demeanor. Course Course Course Narrative: This is a Rapid Medical Exam performed in triage by Jaci Newsome PA-C. Full HPI, ROS and PE to be performed by primary ED provider. 54yo F w/pmhx DM, HTN, CHARLES, Asthma, OA, varicies, GI bleed presenting to the ED c/o abdominal pain since being on medication for Shingles (dx Mother's Day weekend). Was told by Dr. Delarosa's office to come to the ED. Admits to nausea & inability to tolerate PO. PE: abd soft w/upper ttp, no rebound or guarding Plan: Labs, UA Reevaluation(s) Reevaluation #1: Patient has not had her Dilaudid all day today. States she takes it 3 times a day. Review of [facility] PAT shows that she had a refill on 03/06/2025 for 6 days. She is tender on exam with voluntary guarding. Plan for CT of the abdomen and pelvis to evaluate further. Urinalysis, blood work is reassuring. Time: 21:01 Medical Decision Making Medical Decision Making [facility] Narrative: This patient presents today with a chief complaint of abdominal pain. Differential diagnosis for this patient is broad. It includes cholecystitis, bowel obstruction, peptic ulcer disease, pyelonephritis, diverticulitis, vascular pathology, among many others. A broad-based workup based on history and physical examination was obtained. Patient was given bentyl for pain control. Patient reports no significant improvement after Bentyl. Will add on Dilaudid which she takes at home for pain CT shows no evidence of acute process. She does have mild mesenteric adenitis which could be contributing to her symptoms. I think more than likely, she has constipation that needs to be treated more aggressively. Discuss this with patient at length. She has follow-up with Gastroenterology. Using shared decision making, plan for discharge home to follow-up with primary care and/or specialist. Patient understands and agrees with plan for discharge. Discharged home in stable condition. Admission/Observation Consideration of admission/observation: Escalation of care including admission/observation considered Lab Data [facility] Lab Attestation statement: I reviewed the patient's lab results. (No white blood cell count elevation, no significant anemia, slight hyperglycemia, dehydration, elevated total bilirubin without significant elevation of LFTs.) 03/11/25 15:04 03/11/25 15:04 Labs: Lab Results 03/11/25 03/11/25 Range/Units 15:04 15:12 WBC 7.9 (4.8-10.8) X10*3/uL RBC 4.52 (4.20-5.50) X10*6/uL Hgb 12.3 (12.0-16.0) g/dl Hct 36.7 L (37.0-47.0) % MCV 81.2 (80.0-98.0) fL MCH 27.2 (27.0-33.0) pg MCHC 33.5 (31.0-35.0) g/dl RDW 14.2 (11.0-16.0) % Plt Count 104 L (160-400) X10*3/uL MPV 11.0 (9.4-12.3) fL Immature Gran % (Auto) 0.5 H (0.0-0.4) % Neut % (Auto) 88.9 H (45-73) % Lymph % (Auto) 6.5 L (20-40) % [place] % (Auto) 4.1 (2-11) % Eos % (Auto) 0.0 (0-4) % Baso % (Auto) 0.0 (0-2) % Lymph # (Auto) 0.5 L (1.2-4.9) X10*3/uL [place] # (Auto) 0.3 (0.1-1.2) X10*3/uL Eos # (Auto) 0.0 (0.0-0.4) X10*3/uL Baso # (Auto) 0.0 (0.0-0.2) X10*3/uL Abs Immat Gran (auto) 0.04 H (0.00-0.03) X10*3/uL Absolute Neuts (auto) 7.0 (2.0-8.3) x10*3/uL Absolute Nucleated RBC 0.000 (0.0-0.012) X10*3/uL Nucleated RBC % (auto) 0.0 (0.0-0.2) /100WBC Sodium 137 (135-145) mmol/L Potassium 3.8 (3.3-5.1) mmol/L Chloride 104 (96-108) mmol/L Carbon Dioxide 23 (22-29) mmol/L Anion Gap 14 (12-20) BUN 16 (9-16) mg/dL Creatinine 0.75 (0.5-1.4) mg/dL Estim Creat Clear Calc 98.3 Estimated GFR > 60 Random Glucose 199 H (60-115) mg/dL Calcium 8.6 D (8.4-10.2) mg/dL Magnesium 1.9 (1.6-2.6) mg/dL Total Bilirubin 1.6 H (0.0-1.0) mg/dL Direct Bilirubin 0.4 (0.0-0.5) mg/dL AST 36 H (5-31) U/L ALT 46 H (0-31) U/L Alkaline Phosphatase 106 (39-117) U/L Total Protein 6.6 (6.5-8.0) g/dL Albumin 4.1 (3.5-5.0) g/dL Lipase 13 (8-78) U/L Urine Color Yellow Urine Appearance Clear Urine pH 6.5 (5.0-9.0) Ur Specific Straughn >= 1.030 H (1.005-1.025) Urine Protein Trace (Neg-Trace) mg/dL Urine Glucose (UA) 500 H (Negative) mg/dL Urine Ketones Trace (Negative) mg/dL Urine Blood Negative (Negative) Urine Nitrite Negative (Negative) Ur Leukocyte Esterase Negative (Negative) Radiology Impression Discussion of test interpretation with radiology: I have reviewed the radiologist's reading. Radiologist Impression: CT abdomen and pelvis with contrast Comparison: CT/ND/SR - CT ABDOMEN PELVIS W IV CON - 08/19/24 19:43 EST Findings: CT abdomen: No infiltrates within the lung bases. Unchanged dystrophic calcifications in the right breast, possibly posttraumatic or postprocedural. Smaller calcifications within the left breast. No acute fractures. Multilevel degenerative disc disease and degenerative facet disease throughout the thoracolumbar spine with convex right upper lumbar curvature and convex left mid lumbar curvature. Multilevel partial bony ankylosis throughout the lumbar spine is also evident. Air-filled distention of the distal esophagus with small hiatal hernia. Stomach is decompressed. No dilated small bowel. Diffuse mesenteric induration. No free fluid or free air. Fat containing ventral hernia to the right of midline. No focal hepatic lesions. Main portal vein is patent. Borderline splenomegaly without focal splenic lesion. Unchanged cyst within the pancreatic tail measuring 12 mm in size. No pancreatic ductal dilatation or peripancreatic inflammatory stranding. No calcified gallstones. Adrenal glands and kidneys are unremarkable for acute findings. CT pelvis: Metal artifact from the patient's right hip arthroplasty. Moderate sigmoid diverticulosis without diverticulitis. Moderate stool throughout the colon. Scattered induration throughout the mesenteric fat. No free fluid or free air. Uterus is surgically absent. Impression: 1. Nonspecific induration throughout the mesenteric fat. This can be seen with mesenteric adenitis or enteritis. 2. Colonic diverticulosis without diverticulitis. 3. Unchanged cystic lesion within the pancreatic tail. Please see prior report for follow-up recommendations. This document has been electronically signed by: Richard Carranza MD on 03/11/2025 23:13:59 Medications Administered Discontinued Medications Generic Name Dose Route Start Last Admin Trade Name Freq PRN Reason Stop Dose Admin Dicyclomine HCl 20 mg 03/11/25 20:54 03/11/25 21:31 Dicyclomine Hcl 10 Mg Capsule PO 03/11/25 20:55 20 mg ONCE ONE Administration Hydromorphone HCl 1 mg 03/11/25 22:11 03/11/25 22:26 Hydromorphone Hcl 1 Mg/Ml Syringe IVPUSH 03/11/25 22:12 1 mg ONCE ONE Administration Protocol Sodium Chloride 1,000 mls @ 999 mls/hr 03/11/25 21:00 03/11/25 23:00 Ns IV 03/11/25 22:00 Infused .Q1H1M FLORECITA Infusion Iohexol 85 ml 03/11/25 21:58 03/11/25 21:58 Iohexol 350 Mg/Ml 100 Ml Infus..Btl IV 03/11/25 21:59 85 ml ONCE ONE Administration Ondansetron HCl 4 mg 03/11/25 20:54 03/11/25 21:31 Ondansetron Hcl 4 Mg/2 Ml Vial IVPUSH 03/11/25 20:55 4 mg ONCE ONE Administration Discharge Plan Discharge Clinical Impression: Mesenteric adenitis, Abdominal pain, left lower quadrant Patient Disposition: Home, Self-Care Instructions: Mesenteric Adenitis (ED) Additional Instructions: Abd Pain d/c instructions DIAGNOSIS & TREATMENT: You were seen in the Emergency Department for your abdominal pain. We performed laboratory work and a CT scan of your abdomen and pelvis which did not reveal any acute abnormalities that would explain your symptoms. FURTHER CARE: We have not found any emergent physical exam or lab abnormalities that would require admission to the hospital today. Many people who come to the ER with abdominal pain do not leave with a specific diagnosis at the end of their visit. In the Emergency Department we try tomake sure that there is no emergent problem that needs surgery or antibiotics right now. This does not mean that your evaluation is complete--please be sure to follow up with your regular doctor as additional testing as an outpatient may be indicated Please be certain to drink plenty of fluids over the next several. You should advance your diet as tolerated. You may wish to start with the BRAT diet (bananas, rice, applesauce, toast). WHEN YOU SHOULD BE SEEN NEXT: Please follow-up with your primary care provider within the next 2-3 days for reevaluation of your symptoms. WHEN TO RETURN TO THE ED: Monitor your symptoms closely and return to the emergency department immediately for any new/worsening symptoms, worsening abdominal pain, pain which changes location (particularly if it moved to the right lower quadrant), nausea, vomiting, blood in your stool, black/tarry stools, chest pain, shortness of breath, fevers, chills, night sweats, you are unable to arrange follow-up care, or any other concerning symptoms. Prescriptions: No Action (DME) blood pressure monitor Kit See Rx Instructions .Route Qty: 1 0RF Rx Instructions: As directed atorvastatin 40 mg tablet 40 mg PO BEDTIME Qty: 90 1RF montelukast 10 mg tablet 10 mg PO BEDTIME 90 Days Qty: 90 3RF losartan 25 mg tablet 25 mg PO BEDTIME 90 Days Qty: 90 3RF levalbuterol tartrate [Xopenex HFA] 45 mcg/actuation HFA aerosol inhaler 2 puff inhalation Q6H PRN (Reason: shortness of breath or wheezing) 30 Days Qty: 15 11RF carvedilol 6.25 mg tablet 6.25 mg PO DAILY Qty: 270 0RF Xarelto 20 mg tablet 20 mg PO DAILY 90 Days Qty: 90 1RF Rx Instructions: must administer with evening meal nystatin [Nystop] 100,000 unit/gram powder 1 appl topical BID PRN (Reason: rash) Qty: 60 3RF ferrous sulfate [FeroSul] 325 mg (65 mg iron) tablet 325 mg PO DAILY Qty: 90 1RF cholecalciferol (vitamin D3) 50 mcg (2,000 unit) capsule 100 mcg PO BEDTIME Qty: 90 3RF tizanidine 2 mg tablet 4 mg PO BEDTIME PRN (Reason: for muscle spasm) 30 Days Qty: 60 0RF loratadine 10 mg tablet 10 mg PO DAILY Qty: 90 0RF ondansetron 8 mg tablet,disintegrating 8 mg PO Q8H PRN (Reason: nausea and vomiting) 10 Days Qty: 30 1RF famciclovir 500 mg tablet 500 mg PO Q8H 7 Days Qty: 21 0RF omeprazole 40 mg capsule,delayed release(DR/EC) 40 mg PO BID Qty: 180 0RF hydromorphone 2 mg tablet 2 mg PO TID-QID PRN (Reason: pain) 7 Days Qty: 25 0RF Rx Instructions: Partial Fill upon patient request. levothyroxine [Synthroid] 112 mcg tablet 224 mcg PO DAILY Qty: 60 1RF pyridostigmine bromide 60 mg tablet 60 mg PO QID Spiriva Respimat 1.25 mcg/actuation mist 2 puff INHALATION DAILY calcium citrate 250 mg calcium tablet 250 mg PO BID Fiasp FlexTouch U-100 Insulin 100 unit/mL (3 mL) insulin pen 1 sliding scale dose subcut TIDAC (DME) DIABETIC SHOES See Rx Instructions .Route .MEDSUPPLY Qty: 1 0RF Rx Instructions: DIABETIC SHOES - 1 PAIR - use as directed -- Dx: E11.9 -- diabetes mellitus Fasenra 30 mg/mL syringe 30 mg subcut Q8W ipratropium bromide 42 mcg (0.06 %) spray,non-aerosol 2 spray intranasal DAILY (DME) nebulizers Misc See Rx Instructions .Route Rx Instructions: As directed epinephrine 0.3 mg/0.3 mL auto-injector 0.3 mg IM Q5M PRN (Reason: anaphylaxis) lidocaine [Lidoderm] 5 % adhesive patch,medicated 1 patch topical DAILY 30 Days Qty: 30 4RF Rx Instructions: leave on most painful area for up to 12 hrs methylprednisolone [Medrol (Jarrett)] 4 mg tablets,dose pack See Rx Instructions PO DAILY 12 Days Qty: 28 0RF Rx Instructions: orally daily; take 2 tabs daily twice a day x 4, then 1 tab twice a day x 4 days, then 1 tab daily x 4 days (DME) pen needle, diabetic 32 gauge x needle See Rx Instructions .ROUTE .COMPLEX Qty: 200 5RF Dose Instruction: USE TO INJECT FOUR TIMES DAILY DIRECTED Rx Instructions: USE TO INJECT FOUR TIMES DAILY DIRECTED (DME) lancets [FreeStyle Lancets] 28 gauge misc See Rx Instructions .MEDSUPPLY Qty: 150 4RF Rx Instructions: 4 times a day (DME) FreeStyle Lite Strips Strip See Rx Instructions .Route Qty: 150 11RF Rx Instructions: As directed- checks 4-5 X/day fluconazole 100 mg tablet 100 mg PO DAILY 14 Days Qty: 14 2RF azelastine 137 mcg (0.1 %) spray,non-aerosol intranasal lactulose 10 gram/15 mL solution 10 g PO DAILY PRN (Reason: constipation) Qty: 3785 1RF (DME) walker Misc See Rx Instructions .Route Qty: 1 0RF Rx Instructions: walker with wheels and seat fluticasone propionate 220 mcg/actuation HFA aerosol inhaler inhalation insulin degludec [Tresiba FlexTouch U-100] 100 unit/mL (3 mL) insulin pen See Rx Instructions subcut DAILY MDD 30 90 Days Qty: 27 3RF Rx Instructions: 32 units in the am after 3 days if glucose not under 130 in the am can increase by 2 units every 3 days. Print Language: Estonian
[2025-03-11 15:25] LABS: MANUAL DIFF FLAG NO
[2025-03-11 15:26] LABS: Hematocrit 36.7 % (37.0-47.0); Hemoglobin 12.3 g/dl (12.0-16.0); Imm Gran Abs Auto 0.04 X10*3/uL (0.00-0.03); Imm Gran Pct Auto 0.5 % (0.0-0.4); Lymphocytes Absolute Auto 0.5 X10*3/uL (1.2-4.9); Lymphocytes Percent Auto 6.5 % (20-40); Mean Corpuscular HGB Conc 33.5 g/dl (31.0-35.0); Mean Corpuscular Hemoglobin 27.2 pg (27.0-33.0); Mean Corpuscular Volume 81.2 fL (80.0-98.0); Monocytes Absolute Auto 0.3 X10*3/uL (0.1-1.2); Monocytes Percent Auto 4.1 % (2-11); Neutrophils Percent Auto 88.9 % (45-73); Platelet Count 104 X10*3/uL (160-400); Red Blood Count 4.52 X10*6/uL (4.20-5.50); Red Cell Distribution Width 14.2 % (11.0-16.0); White Blood Count 7.9 X10*3/uL (4.8-10.8)
[2025-03-11 15:28] LABS: Appearance Urine Clear; Color Urine Yellow; Glucose Urine UA 500 mg/dL (Negative); Leukocyte Esterase Urine Negative (Negative); Nitrite Urine Negative (Negative); PH 6.5 (5.0-9.0); Specific Gravity - Urine >= 1.030 (1.005-1.025); Urine Blood Negative (Negative); Urine Ketones Trace mg/dL (Negative); Urine Protein Trace mg/dL (Neg-Trace)
[2025-03-11 15:56] LABS: Alanine Aminotransferase 46 U/L (0-31); Albumin Level 4.1 g/dL (3.5-5.0); Alkaline Phosphatase 106 U/L (39-117); Anion Gap 14 (12-20); Aspartate Amino Transferase 36 U/L (5-31); Bilirubin Direct 0.4 mg/dL (0.0-0.5); Bilirubin Total 1.6 mg/dL (0.0-1.0); Blood Urea Nitrogen 16 mg/dL (9-16); Calcium 8.6 mg/dL (8.4-10.2); Carbon Dioxide 23 mmol/L (22-29); Chloride 104 mmol/L (96-108); Creatinine Clr Calc Pharmacy 98.3; Estimated Glomerular Filt Rate > 60; Glucose Random 199 mg/dL (60-115); Lipase 13 U/L (8-78); Magnesium 1.9 mg/dL (1.6-2.6); Potassium 3.8 mmol/L (3.3-5.1); Sodium 137 mmol/L (135-145); Total Protein 6.6 g/dL (6.5-8.0)
[2025-03-11 20:21] VITALS: BP 133/75; PULSE 111; RESP 20; TEMP 36.6; O2SAT 98
[2025-03-11] MEDS: ondansetron HCL 4 MG/2 ML VIAL IVPUSH (21:31)
[2025-03-11] MEDS: 0.9 % Sodium Chloride 1,000 ML 999 ML IV (21:31)
[2025-03-11] MEDS: Dicyclomine HCl 10 MG CAPSULE 20 MG PO (21:31)
[2025-03-11] MEDS: iohexoL 350 MG/ML 100 ML INFUS..BTL 85 ML IV (21:58)
--- NOTE | 2025-03-11 22:10 | PC.NURSE ---
pt reports continued pain/nausea, MD Skaggs made aware, states will order dilaudid.
[2025-03-11 22:26] VITALS: RESP 18
[2025-03-11] MEDS: HYDROmorphone HCl 1 MG/ML SYRINGE IVPUSH (22:26)
[2025-03-12 00:37] VITALS: BP 143/80; PULSE 85; RESP 15; TEMP 36.4; O2SAT 98
[2025-03-12 00:39] VITALS: BP 143/80; PULSE 85; RESP 15; TEMP 36.4; O2SAT 98
== END 2025-03-12 00:40 | disposition home or self-care (01) ==
PROVIDERS: Physician Assistant; Emergency Provider Emergency Medicine; PCP Internal Medicine
DX: I88.0 Nonspecific mesenteric lymphadenitis (principal); R10.32 Left lower quadrant pain; R11.0 Nausea; E11.9 Type 2 diabetes mellitus without complications; Z79.899 Other long term (current) drug therapy; Z79.4 Long term (current) use of insulin
CPT/HCPCS: 36415; 74177; 80048; 80076; 81003; 83690; 83735; 85025; 96361; 96374; 96375; 99284; J1171; J2405; Q9967

== ENCOUNTER → 2025-03-11 20:54 | Outpatient (BNV) | payer OTHER, SELFPAY | PROVIDERS: Emergency Provider Emergency Medicine; PCP Internal Medicine; Visit Provider Radiology Diagnostic Radiology | DX: K57.30 Diverticulosis of large intestine without perforation or abscess without bleeding (principal); K86.2 Cyst of pancreas | CPT/HCPCS: 74177 ==

== ENCOUNTER 2025-03-13 12:50 | Outpatient (AMB) | payer OTHER, SELFPAY ==
--- NOTE | 2025-03-13 12:53 | A.OFFVIS_ITS ---
Vital Signs 03/13/25 12:54 Height 5 ft 4 in Weight 224 lb 13.944 oz BMI 38.6 BP 124/76 Blood Pressure Location Lt brachial Position Sitting Pulse 72 Intake Visit Reasons: f/up cta pt requested dr wright Intake Note: Follow-up CTA results hearts doing ok Cloth Bale Header Required: No Allergies cephalexin Allergy (Severe, Verified 03/11/25 14:19) Difficulty Breathing latex [LATEX] Allergy (Severe, Verified 03/11/25 14:19) Difficulty Breathing levofloxacin [From LEVAQUIN] Allergy (Severe, Verified 03/11/25 14:19) SHORTNESS OF BREATH, RASH, rash morphine [MORPHINE] Allergy (Severe, Verified 03/11/25 14:19) RASH, asthma exacerbation, rash baclofen [BACLOFEN] Allergy (Intermediate, Verified 03/11/25 14:19) Rash celecoxib [Celebrex] Allergy (Intermediate, Verified 03/11/25 14:19) itching, rash, flushing prednisone [PREDNISONE] Allergy (Intermediate, Verified 03/11/25 14:19) RASH, asthma exacerbation, rash codeine Allergy (Unknown, Verified 03/11/25 14:19) Rash gluten [GLUTEN] Allergy (Unknown, Verified 03/11/25 14:19) UNKNOWN oxycodone Allergy (Unknown, Verified 03/11/25 14:19) rash ranitidine Allergy (Unknown, Verified 03/11/25 14:19) unknown roflumilast [Daliresp] Allergy (Unknown, Verified 03/11/25 14:19) rash tramadol [TRAMADOL] Allergy (Unknown, Verified 03/11/25 14:19) RASH,SHORTNESS OF BREATH AND HEADACHE, asthma exacerbation, rash celery Allergy (Verified 03/11/25 14:19) Rash cyclobenzaprine [From Flexeril] Allergy (Verified 03/11/25 14:19) Rash and asthma exacerbation environmental allergies Allergy (Verified 03/11/25 14:19) Cleaning products cause asthma attack pineapple Allergy (Verified 03/11/25 14:19) Rash strawberry Allergy (Verified 03/11/25 14:19) Rash sulfamethoxazole [From Bactrim] Adverse Reaction (Intermediate, Verified 03/11/25 14:19) vertigo trimethoprim [From Bactrim] Adverse Reaction (Intermediate, Verified 05/27/25 14:19) vertigo diazepam [From Valium] Adverse Reaction (Verified 03/11/25 14:19) Cough Medication List - Last Reconciled 03/13/25 by Spencer Wright MD atorvastatin 40 mg PO BEDTIME azelastine intranasal benralizumab (Fasenra) 30 mg subcut Q8W blood pressure monitor As directed blood sugar diagnostic (FreeStyle Lite Strips) As directed- checks 4-5 X/day calcium citrate 250 mg PO BID carvedilol 6.25 mg PO DAILY cholecalciferol (vitamin D3) 100 mcg (2 x 50 mcg (2,000 unit)) PO BEDTIME [DIABETIC SHOES DIABETIC SHOES - 1 PAIR - use as directed -- Dx: E11.9 -- diabetes mellitus] doxycycline hyclate 100 mg PO BID PRN epinephrine 0.3 mg IM Q5M PRN ferrous sulfate (FeroSul) 325 mg PO DAILY fluconazole 100 mg PO DAILY 14 days fluticasone propionate 220 mcg/actuation inhalation hydromorphone 2 mg PO TID-QID PRN 7 days insulin aspart (niacinamide) 100 unit/mL (3 mL) (Fiasp FlexTouch U-100 Insulin) 1 sliding scale dose subcut TIDAC insulin degludec (Tresiba FlexTouch U-100 insulin) 32 units in the am after 3 days if glucose not under 130 in the am can increase by 2 units every 3 days. 90 days MDD 30 ipratropium bromide 2 sprays intranasal DAILY lactulose 10 grams (15 mL) PO DAILY PRN lancets (FreeStyle Lancets) 4 times a day levalbuterol tartrate 45 mcg/actuation (Xopenex HFA) 2 puffs inhalation Q6H PRN 30 days lidocaine 5% (Lidoderm) 1 patch topical DAILY 30 days loratadine 10 mg PO DAILY losartan 25 mg PO BEDTIME 90 days montelukast 10 mg PO BEDTIME 90 days nebulizers As directed nystatin (Nystop) 1 appl topical BID PRN omeprazole 40 mg PO BID ondansetron 8 mg PO Q8H PRN 10 days pen needle, diabetic USE TO INJECT FOUR TIMES DAILY DIRECTED pyridostigmine bromide 60 mg PO QID Synthroid (levothyroxine) 224 mcg (2 x 112 mcg) PO DAILY NS tiotropium bromide 1.25 mcg/actuation (Spiriva Respimat) 2 puffs inhalation DAILY tizanidine 4 mg (2 x 2 mg) PO BEDTIME PRN 30 days walker walker with wheels and seat HPI Comments Details: Deysi comes for follow-up. Underwent recent coronary CTA which showed nonobstructive CAD. She was recently in the ED with shingles. She has no new exertional chest pain. Denies any other cardiac symptoms at current point in time. Taking all her medications. No heart failure symptoms. No prolonged palpitation irregular heartbeat. [facility] Medical History Acute kidney injury (nontraumatic) Back pain Renal insufficiency Obesity (BMI 30-39.9) Mitochondrial myopathy Diabetes mellitus Portal hypertensive gastropathy Esophageal varices determined by endoscopy Portal hypertension HTN (hypertension) Anemia Chronic restrictive lung disease Brugada syndrome Shortness of breath Encounter for care related to Port-a-Cath Tinea pedis Recurrent cellulitis of lower extremity CHARLES (obstructive sleep apnea) Hypogammaglobulinemia Cellulitis of both lower extremities Right hip pain Lumbar degenerative disc disease Benign essential hypertension Asthma Acquired hypothyroidism Pure hypercholesterolemia Hx of cataract Osteopenia Osteoarthritis of hip Gastritis Surgical History History of revision of total replacement of right hip joint (~12/2019) Hx of hand surgery History of removal of Port-a-Cath History of total right hip arthroplasty (~06/03/19) History of eye surgery (~09/2017) History of hip surgery Hx of foot surgery (~01/02/19) History of removal of cyst Hx of left knee surgery History of elbow surgery (~07/2016) Hx of thumb surgery Hx of appendectomy Hx of hysterectomy (~07/2011) Hx of bilateral breast reduction surgery Family History Father Leukemia Mother Hypertension Diabetes Sister Alive and well Brother Pancreatic cancer Paternal Grandmother Stomach cancer Paternal Grandmother Throat cancer Social History Household Members: Family Housing: Apartment Do you presently have visiting nurse or other home services: No Alcohol intake: never Comment: refused bed alarm Patient Tobacco Use Status: Never used Tobacco e-Cigarette/Vaping Use: Never Used Second Hand Smoke Exposure: No Advance Directives Date on File: 10/02/23 service: No Current occupational status: disabled Current occupation: rt handed Cognitive needs: No Hearing needs: No Vision needs: No Review of Systems Const Denies chills, Denies fatigue, Denies fever(s), Denies frequent falls, Denies weakness, Denies weight gain and Denies weight loss ENT Denies dizziness Card Denies chest pain, Denies leg edema, Denies lightheadedness, Denies palpitations, Denies dyspnea, Denies dyspnea on exertion, Denies orthopnea and D enies other (loss of consciousness) Resp Denies cough, Denies dyspnea and Denies dyspnea on exertion GI Denies hematochezia and Denies change in stool character Musc Denies abnormal gait, Denies muscle weakness, Denies numbness, Denies radiating pain into limb and Denies tingling Neuro Denies abnormal gait, Denies dizziness, Denies frequent falls, Denies numbness, Denies tingling and Denies weakness Endo Denies fatigue and Denies palpitations Physical Exam Vital Signs: Last Vital Signs Pulse 72 03/13/25 12:54 BP 124/76 03/13/25 12:54 BMI result Body Mass Index 38.6 Const General: cooperative, no acute distress, alert and awake Nutritional Appearance: obese centrally obese Orientation/consciousness: patient oriented x3 Neck Neck: Yes normal visual inspection and Yes no JVD Resp Effort & Inspection: normal respiratory effort, able to speak in complete sentences and not labored Auscultation: clear to auscultation bilaterally, no crackles, no rales, no rhonchi, no wheezes and diminished lung sounds Cardio Rate: regular rate Rhythm: regular rhythm Heart sounds: S1 normal heart sound present and S2 normal heart sound present Peripheral pulses: Peripheral pulses 2+ throughout GI Inspection: Yes normal to inspection Neuro General: patient oriented x3 Extrem General: Yes normal to inspection and No edema Assessment & Plan Assessment & Plan (1) CAD (coronary artery disease): Comment: nonobstructive by coronary CTA, February 2025 Code(s): I25.10 - Atherosclerotic heart disease of [place] coronary artery without angina pectoris Category: Medical Plan: Nonobstructive CAD by coronary CTA. Her exertional chest pain not likely related to the same. Possibly related to hypertension although possibly noncardiac as well. At this point time continue aggressive medical therapy. Advise low-dose aspirin therapy. She would like a prescription. Continue high-intensity statin therapy with target goal LDL less than 70 mg/dL. Continue aggressive blood pressure control which is currently well optimized. Importance of good blood pressure control was discussed. Continue current medications. Continue aggressive diabetes management through your office with goal hemoglobin A1c less than 7%. Encouraged to participate in regular physical activity and weight loss program as well. (2) Enlarged thoracic aorta: Code(s): I77.89 - Other specified disorders of arteries and arterioles Category: Medical Plan: Thoracic aorta which is mildly enlarged. Most likely related to atherosclerotic disease and risk factors. Continue aggressive vascular risk factor modification above. Advised to avoid sudden strenuous isometric exercise. Follow-up echocardiogram in 1 year's time. Will follow up in the clinic in 1 year's time, sooner p.r.n.. Thank you for allowing me to partake in her care Orders: Orders CA echo transthoracic complete 1 Year Spencer Wright MD I77.89 - Other specified disorders of arteries and arterioles Medications: Changed From doxycycline hyclate 100 mg PO BID 14 caps 0RF To doxycycline hyclate 100 mg PO BID PRN Nereida Delarosa MD Coding Level of Care Code Est Pt Level 4 (66180) Complex EM visit Add On G2211 Diagnoses CAD (coronary artery disease) I25.10 Enlarged thoracic aorta I77.89
[2025-03-13 12:54] VITALS: BP 124/76; PULSE 72; BMI 38.6
--- OUTSIDE RECORDS SUMMARY | 2025-03-13 12:55 | XMS_ITS | Patient Health Record ---
Author Organization [facility] Address [address] [place] [address] Care Team Providers Care Fountain Supervisor Name Role Phone Cassius Strong Primary Care Provider Colin Mercado Unavailable [phone] ALLERGIES Allergen (clinical drug ingredient) Drug/Non Drug Allergy documented on EMR Reaction Allergy Type Onset Date Status Apples/[place]/Leda ts/Pineapple/Strawb erry/Onion (uncoded) Unknown Allergy Active Gluten [...] out er thigh IM prn Active Ipratropium [place] 0.02 % Inhalation Active Medrol 16 MG [...] Notes Problem Food allergy (Z91.018) Active confirmed 828598525 Problem 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) Active confirmed 270035209 Problem Osteopenia (M85.80) Active confirmed 029048775 Problem Severe persistent asthma, uncomplicated (J45.50) Active confirmed 166100972 Problem Pancreatitis (K85.9) Active confirmed 81766011 Problem Steroid-dependent asthma (J45.909) Active confirmed [id number] Problem Insulin dependent diabetes mellitus with complications (E11.8) Active confirmed 10324447 Problem Myasthenia gravis (G70.00) Active confirmed 44461309 PLAN OF TREATMENT No Information Insurance Providers Payer Name Payer Address Payer Phone Subscriber Number Group Number Insured Name Patient Relationship to Insured Coverage Start Date Coverage End Date Medicare/Ronit [facility] [employer] [address] [place] [phone] [id number] Kala Deysi Self - patient is the insured Medicaid [address] [place] [address] [id number] Deysi Armendariz Self - patient is the [...]
== END 2025-03-13 13:12 | disposition home or self-care (01) ==
LOC: HO.HCS 12:51
PROVIDERS: PCP Internal Medicine; Visit Provider Internal Medicine Cardiovascular Disease
DX: I25.10 Atherosclerotic heart disease of native coronary artery without angina pectoris (principal); I77.89 Other specified disorders of arteries and arterioles
CPT/HCPCS: 99214; G2211

== ENCOUNTER → 2025-03-13 12:50 | Outpatient (BNVA) | payer OTHER, SELFPAY | PROVIDERS: PCP Internal Medicine; Visit Provider Internal Medicine Cardiovascular Disease | DX: I25.10 Atherosclerotic heart disease of native coronary artery without angina pectoris (principal); I77.89 Other specified disorders of arteries and arterioles | CPT/HCPCS: 99212 ==

== ENCOUNTER → 2025-03-24 09:33 | Outpatient (BNVA) | payer OTHER, SELFPAY | PROVIDERS: PCP Internal Medicine; Visit Provider Surgery ==

== ENCOUNTER → 2025-05-25 11:56 | Outpatient (BNV) | payer OTHER, SELFPAY | PROVIDERS: PCP Internal Medicine; Visit Provider Radiology Vascular & Interventional Radiology | DX: M41.57 Other secondary scoliosis, lumbosacral region (principal); M41.80 Other forms of scoliosis, site unspecified; M51.369 Other intervertebral disc degeneration, lumbar region without mention of lumbar back pain or lower extremity pain | CPT/HCPCS: 72148 ==

== ENCOUNTER 2025-05-25 11:58 | Outpatient (REF) | payer OTHER, SELFPAY ==
--- NOTE | ~2025-05-25 | MR_ITS ---
CLINICAL HISTORY: M41.57 - Other secondary scoliosis, lumbosacral region MR lumbar spine without gadolinium Comparison: None Findings: Moderately severe rotatory scoliosis. Near-complete disc space loss throughout the lumbar spine. No acute fracture or acute malalignment. The conus terminates normally at L1. The cauda equina are unremarkable. The retroperitoneal soft tissues appear within expected limits. Individual levels: T12-L1: Posterior disc osteophyte complex with moderately severe left neural foraminal narrowing. No significant central canal stenosis. L1-L2: Broad-based disc protrusion, left eccentric with moderately severe left neural foraminal narrowing. L2-L3: No significant central canal stenosis or neural foraminal narrowing. L3-L4: Right eccentric disc osteophyte complex with facet hypertrophy. Moderately severe right neural foraminal narrowing. No central canal stenosis. L4-L5: Broad-based disc protrusion with facet hypertrophy, [id number]-[id number]-ourb-left. Moderate central canal stenosis and moderately severe right neural foraminal narrowing. L5-S1: Broad-based disc osteophyte complex with moderate bilateral neural foraminal narrowing. Impression: Moderately severe rotatory scoliosis with associated degenerative changes as detailed above. This document has been electronically signed by: Galileo León MD on 05/26/2025 15:16:11
--- OUTSIDE RECORDS SUMMARY | 2025-05-25 12:01 | XMS_ITS | Clinical Summary ---
Author Organization [facility] Address [address] [place] [address] Phone Care Team Providers Care Handkerchief Presser Name Role Phone Cassius Strong MD Primary Care Provider [phone] Allergies Active Allergy Reactions Criticality Noted Date Comments Celecoxib Shortness Of Breath,Rash High 02/21/2018 Codeine Unknown 07/06/2017 Cyclobenzaprine Shortness Of Breath,Rash High 10/23/2017 Latex Unknown 07/06/2017 Latex, Natural Rubber Itching,Cough High 10/23/2017 Levofloxacin Itching,Anxiety High 10/23/2017 Morphine Shortness Of Breath,Rash High 10/23/2017 Prednisone Shortness Of Breath,Rash,Wheezing High 02/21/2018 Sulfa (Sulfonamide Antibiotics) Unknown 07/06/2017 Tramadol Shortness Of Breath,Rash High 10/23/2017 Hydrocodone-Acetaminophen Shortness Of Breath,Rash High 10/23/2017 Medications valsartan (DIOVAN) 80 MG tablet Take 40 mg by mouth 2 (two) times a day. Active pyridostigmine (MESTINON) 60 mg tablet Take 60 mg by mouth 4 (four) times a day. Active atorvastatin (LIPITOR) 40 MG tablet Take 40 mg by mouth daily. Active cholecalciferol (VITAMIN D3) 5,000 unit tablet Take 1,000 Units by mouth daily. Active levothyroxine (SYNTHROID, LEVOTHROID) 175 MCG tablet Take 200 mcg by mouth every morning. Active ferrous sulfate 325 mg (65 mg elemental) tablet Take 325 mg by mouth daily with breakfast. Active metFORMIN (GLUCOPHAGE-XR) 500 MG 24 hr tablet Take 500 mg by mouth. Take 2 tablets twice a day Active insulin glargine (LANTUS, BASAGLAR) 100 unit/mL (3 mL) InPn injection pen Inject 65 Units under the skin nightly. Active omeprazole (PRILOSEC) 20 mg TbEC Take 20 mg by mouth daily before breakfast. Active ipratropium (ATROVENT) 0.03 % nasal spray 2 sprays by Nasal route every 12 (twelve) hours. Active levalbuterol (XOPENEX) 0.31 mg/3 mL nebulizer solution Take 1 ampule by nebulization every 4 (four) hours as needed for wheezing. Active meloxicam (MOBIC) 15 MG tablet Take 15 mg by mouth daily as needed. Active tiotropium (SPIRIVA HANDIHALER) 18 mcg inhalation capsule Inhale 2.5 mcg into the lungs daily. Active montelukast (SINGULAIR) 10 mg tablet Take 10 mg by mouth nightly. Active insulin lispro (HUMALOG) 100 unit/mL InPn injection pen Inject under the skin 3 (three) times a day with meals. Inject 16 units before breakfast 14 units before lunch 14 units before dinner Active aspirin 81 MG EC tablet Take 81 mg by mouth daily. Active loratadine (CLARITIN) 10 mg tablet Take 10 mg by mouth daily. Active ibuprofen (ADVIL,MOTRIN) 600 MG tablet Take 600 mg by mouth every 8 (eight) hours as needed for pain (specific location in comments). Active levalbuterol (XOPENEX HFA) 45 mcg/actuation inhaler Inhale 1-2 puffs into the lungs every 4 (four) hours as needed for wheezing. Active methylPREDNISolo ne (MEDROL) 4 MG tablet Take 12 mg by mouth 2 (two) times a day. Active benralizumab (FASENRA) 30 mg/mL subcutaneous injection Inject 30 mg under the skin once. First injection, 01/24/18, next one 02/23/18, then 8 weeks apart. Active nystatin (MYCOSTATIN) 100,000 unit/mL suspension Take 500,000 Units by mouth daily. Active Active Problems Problem Noted Date Diagnosed Date Essential hypertension 11/09/2017 Mixed hyperlipidemia 11/09/2017 Acquired hypothyroidism 11/09/2017 Type 2 diabetes mellitus without complication Asthma 11/09/2017 Abnormal EKG 11/09/2017 Overview (11/09/2017): Brugada pattern Family History Medical History Relation Comments Diabetes mellitus Mother 2 Hypertension Mother 2 Relation Status Comments Mother 1 Mother 2 Social History Tobacco Use Types Packs/Day Years Used Date Smoking Tobacco: Never Smokeless Tobacco: Never Education Answer Date Recorded Are you interested in more education? Not on nellie e 02/10/2023 Are you concerned about learning? Not on file 02/10/2023 No 02/10/2023 No 02/10/2023 Digital Access Answer Date Recorded No 03/11/2023 No 03/11/2023 Reliable internet access at home? Not on file 03/11/2023 Device with a working camera? Not on file Comments Unknown Sex and Gender Information Value Date Recorded Sex Assigned at Not on file Legal Sex Female 10:32 PM EDT Gender Identity Not on file Sexual Orientation Not on file Last Filed Vital Signs Vital Sign Reading Time Taken Comments Blood Pressure 150/80 02/28/2018 2:32 PM EDT Pulse 100 02/28/2018 2:32 PM EDT Temperature - - Respiratory Rate 14 02/28/2018 2:32 PM EDT Oxygen Saturation 94% 02/21/2018 2:15 PM EDT Inhaled Oxygen Concentration - - Weight 93.4 kg (206 lb) 09/01/2020 12:32 PM EST Height 160 cm (5' 3 ) 09/01/2020 12:32 PM EST Body Mass Index 36.49 09/01/2020 12:32 PM EST Plan of Treatment Health Maintenance Due Date Last Done Comments BLOOD PRESSURE 1969 CREATININE LEVEL 1969 HEMOGLOBIN A1C 1969 POTASSIUM LEVEL 1969 TSH LEVEL 1969 DEPRESSION SCREENING 1981 HEPATITIS C SCREENING 1987 HIV ONE-TIME SCREENING (18-65 YEARS) 1987 PAP SMEAR 1990 MAMMOGRAM 2009 COLOGUARD 2014 COLONOSCOPY 2014 COLORECTAL CANCER SCREENING 2014 FIT TEST 2014 FOBT 2014 SIGMOIDOSCOPY 2014 VIRTUAL COLONOSCOPY 2014 DIABETIC EYE EXAM 11/09/2017 ZOSTER VACCINES (1 of 2) 2019 COVID-19 VACCINE (2023-25 season) 2024 PNEUMOCOCCAL VACCINES (50+ years) (3 of 3 - PCV20 or PCV21) 01/04/2027 01/04/2022, 01/15/2021, 06/16/2016, Additional history exists Adult Td,Tdap Booster 03/22/2028 03/22/2018 , 05/13/2014, 05/13/2014 SMOKING STATUS SCREENING (Once After 26 Yrs) Completed 09/01/2020 HEPATITIS A VACCINES Aged Out No long er eligible based on patient's age to complete this topic HIB VACCINES Aged Out No longer eligi ble based on patient's age to complete this topic MENINGOCOCCAL VACCINES (ACWY) Aged Out No longer eligible based on patient's age to complete this topic MENINGOCOCCAL VACCINES (B) Aged Out N o longer eligible based on patient's age to complete this topic Medical Devices Not on file Insurance [facility] CARE MEDICARE REPLACEMENT CJ MEJIA [id number] [facility] MEDICARE REPLACEMENT CJ MEJIA [id number] [facility] MEDICARE REPLACEMENT [facility] MEDICARE REPLACEMENT [facility] MEDICARE REPLACEMENT [facility] MEDICARE REPLACEMENT [facility] MEDICARE REPLACEMENT [facility] MEDICARE REPLACEMENT [facility] [place] [id number] Care Teams Handkerchief Presser Relationship Specialty Start Date End Date Cassius Strong MD [address] [place] [address] PCP - General 08/03/17 Additional Source Comments The information contained in this document represents components of the legal health record. It is not the complete legal health record.[facility]
--- OUTSIDE RECORDS SUMMARY | 2025-05-25 12:01 | XMS_ITS | Patient Health Record ---
Author Organization [facility] Address [address] [place] [address] Care Team Providers Care Tool Tender Name Role Phone Cassius Strong Primary Care Provider Colin Mercado Unavailable [phone] ALLERGIES Allergen (clinical drug ingredient) Drug/Non Drug Allergy documented on EMR Reaction Allergy Type Onset Date Status Apples/[place]/Leda ts/Pineapple/Strawb erry/Onion (uncoded) Unknown Allergy Active Gluten [...] out er thigh IM prn Active Ipratropium [place] 0.02 % Inhalation Active Medrol 16 MG [...] Notes Problem Food allergy (Z91.018) Active confirmed 087034394 Problem 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) Active confirmed 288511679 Problem Osteopenia (M85.80) Active confirmed 351133080 Problem Severe persistent asthma, uncomplicated (J45.50) Active confirmed 994702644 Problem Pancreatitis (K85.9) Active confirmed 91736601 Problem Steroid-dependent asthma (J45.909) Active confirmed 8625804681891508 Problem Insulin dependent diabetes mellitus with complications (E11.8) Active confirmed 83630559 Problem Myasthenia gravis (G70.00) Active confirmed 17989726 PLAN OF TREATMENT No Information Insurance Providers Payer Name Payer Address Payer Phone Subscriber Number Group Number Insured Name Patient Relationship to Insured Coverage Start Date Coverage End Date Medicare/Ronit [facility] [employer] [address] [place] [phone] [id number] Kala Deysi Self - patient is the insured Medicaid [address] [place] [address] [id number] Deysi Armendariz Self - patient is the [...]
--- OUTSIDE RECORDS SUMMARY | 2025-05-25 12:01 | XMS_ITS | Clinical Summary ---
Author Organization [facility] Address [address] [place] [address] Care Team Providers Care Scheduling Administrator Name Role Phone Cassius Strong MD Primary Care Provider Surgical History Surgery Date Site/Laterality Comments HYSTERECTOMY PROCEDURE: HISTORICAL HYSTERECTOMY FOOT SURGERY PROCEDURE: HISTORICAL FOOT SURGERY APPENDECTOMY PROCEDURE: HISTORICAL APPENDECTOMY Medical History Medical History Date Comments Brugada syndrome 08/01/2017 DX:Brugada synd adam Chronic obstructive pulmonar y disease ([facility] V24, [facility] V28) 07/07/2017 DX:Chronic obstructive pulm onary disease (HCC) Diabetes mellitus type 2, un complicated ([facility] V24, [facility] V28) 08/17/2017 DX:Diabetes mellitus type 2 , uncomplicated (HCC) GERD (gastroesophageal reflux disease) 08/17/2017 DX:GERD (gastroesophageal reflux disease) History of pancreatitis 11/10/2017 DX:Histo ry of pancreatitis Hyperlipidemia 08/17/2017 DX:Hyperlipidemi a Hypogammaglobulinemia ([facility] V24) 08/01/2017 DX:Hypogammaglobulinemia (HCC) Hypothyroidism 08/17/2017 DX:Hypothyroidis m 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[facility] V24, [facility] V28) 017 DX: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HCC) Obesity 05/05/2017 DX:Obesity Obstructive sleep apnea syndrome 08/01/2017 DX:Obstructive sleep apnea syndrome; COMMENT: BiPAP Osteoarthritis 08/17/2017 DX:Osteoarthriti s Port-A-Cath in place 11/10/2017 DX:Port-A-C ath in place RA (rheumatoid arthritis) ([facility] V24, [facility] V28) 08/17/2017 DX:RA (rheumatoid arthritis) (HCC) Severe persistent asthma dep endent on systemic steroids ([facility] V28) 11/10/2017 DX:Severe persistent a sthma [...] Vaccine (1 - 2023-2 5 season) 2024 Depression Screening 10/16/2024 Influenza Vaccine (#1) 2025 HIB Vaccines Aged Out No longer [...] age to complete this topic Care Teams Scheduling Administrator Relationship Specialty Start Date End Date Cassius Strong MD [address] [place] [address] Dr [address] [facility]ST[facility] Alvarez [facility] - General 04/15/11
--- OUTSIDE RECORDS SUMMARY | 2025-05-25 12:01 | XMS_ITS | Patient Health Record ---
Author Organization [facility] Address [address] [place] [address] Care Team Providers Care Home Support Worker Name Role Phone Cassius Strong MD Primary Care Provider Babak Kendrick Unavailable [phone] Allergies Allergen (clinical drug ingredient) Drug/Non Drug Allergy documented on EMR Reaction Allergy Type Onset Date Status morphine Morphine Sulfate Unknown Drug Allergy Active Levaquin Unknown Drug Allergy Active Flexeril Unknown Drug Allergy Active codeine Codeine Sulfate Unknown Drug Allergy A ctive Latex Latex (uncoded) Unknown Allergy Acti ve Vicodin Unknown Drug Allergy Active tramadol Tramadol HCl Unknown Drug Allergy Acti ve PredniSONE Unknown Drug Allergy Active Reason For Referral No Information Medications Medication SIG (Take, Route, Fr equency, Duration) Notes Start Date End Date Status Advair HFA Active Chromium Active Zyflo Active metFORMIN HCl Active EpiPen Active Nasonex Active Klor-Con Active Vitamin B50 Complex Active Vitamin D Active Xopenex 1.25mg Activ e Medrol 8mg Active Ventolin HFA Active Ipratropium [place] Active Ibuprofen 600mg Acti ve Claritin 10mg Active Synthroid 225mcg Act bety Singulair 10mg Activ e Spironolactone 50mg Active Omeprazole 40mg Acti ve Problems Problem Type SNOMED Code ICD Code Onset Dates Problem Status W/U Status Risk Notes Problem Left upper quadrant pain (048628752) Abdominal pain, left upper quadrant (789.02) Active confirmed Problem Constipation (25096753) Constipation (564.00) Active confirmed Problem Gastroesophageal reflux disease (615762920) GERD (gastroesophage al reflux disease) (530.81) Active confirmed Problem Liver function tests abnormal (112089136) Liver function study, abnormal (794.8) Active confirmed Problem Acid reflux (573331457) Acid reflux (530.81) Active confirmed Problem Epigastric pain (78461884) Abdominal discomfort, epigastric (789.06) Active confirmed Plan Of Treatment Future Test Test Name Order Date UPPER GI ENDOSCOPY 04/19/2012 Insurance Providers Payer Name Payer Address Payer Phone Subscriber Number Group Number Insured Name Patient Relationship to Insured Coverage Start Date Coverage End Date [facility] [address] [facility] [id number] JUANCHO SHANNON Self - patient is the insured Medical (General) History Medical History History ICD Code Denies [place],CVA,renal disease Hypothyroidism Hiatal hernia--EGD in 06/2012 with small HH--biopsies neg. for Mcconnell's and neg. for H.pylori Asthma---has been hospitaliz ed for asthma--has been on steroids--she sees Dr. Vanegas from Pulmonary and Dr. Sim from Allergy-- Arthritis On spironolactone from Dr. Mahan for re ported hirsutism NIDDM ALT was 41 in 12/2012--normal liver profi le in December of 2013 she had a negative tissue tr ansglutaminase antibody, but her HLA genotype is that of the type that is seen in 95% of patients with celiac disease(although only 18% of people with this genotype will have celiac disease)--this was checked by Dr. Sim--she has since put herself on a relatively gluten-free diet--she has never had duodenal biopsies. Surgical History Surgery Date(Month/Year) Hysterectomy 2010 Appendectomy 1976
== END 2025-05-25 11:59 | disposition home or self-care (01) ==
LOC: HO.MRI 11:58
PROVIDERS: PCP Internal Medicine; Visit Provider Internal Medicine
DX: M41.57 Other secondary scoliosis, lumbosacral region (principal); E66.9 Obesity, unspecified
CPT/HCPCS: 72148

== ENCOUNTER 2025-06-09 11:47 | Outpatient (AMB) | payer OTHER, SELFPAY ==
--- NOTE | 2025-06-09 11:51 | A.OFFVIS_ITS ---
Vital Signs 06/09/25 11:53 Height 5 ft 4 in Weight 225 lb BMI 38.6 BP 155/72 H Blood Pressure Location Lt brachial Position Sitting Respiration 16 Pulse 72 Pulse Source Pulse Oximeter Pulse Oximetry (%) 94 Oxygen Delivery Method Room Air Intake Visit Reasons: MRI Results Community Relations Police Lieutenant Required: No Allergies cephalexin Allergy (Severe, Verified 06/10/25 09:10) Difficulty Breathing latex (LATEX) Allergy (Severe, Verified 06/10/25 09:10) Difficulty Breathing levofloxacin (From LEVAQUIN) Allergy (Severe, Verified 06/10/25 09:10) SHORTNESS OF BREATH, RASH, rash morphine (MORPHINE) Allergy (Severe, Verified 06/10/25 09:10) RASH, asthma exacerbation, rash baclofen (BACLOFEN) Allergy (Intermediate, Verified 06/10/25 09:10) Rash celecoxib (Celebrex) Allergy (Intermediate, Verified 06/10/25 09:10) itching, rash, flushing prednisone (PREDNISONE) Allergy (Intermediate, Verified 06/10/25 09:10) RASH, asthma exacerbation, rash codeine Allergy (Unknown, Verified 06/10/25 09:10) Rash gluten (GLUTEN) Allergy (Unknown, Verified 06/10/25 09:10) UNKNOWN oxycodone Allergy (Unknown, Verified 06/10/25 09:10) rash ranitidine Allergy (Unknown, Verified 06/10/25 09:10) unknown roflumilast (Daliresp) Allergy (Unknown, Verified 06/10/25 09:10) rash tramadol (TRAMADOL) Allergy (Unknown, Verified 06/10/25 09:10) RASH,SHORTNESS OF BREATH AND HEADACHE, asthma exacerbation, rash celery Allergy (Verified 06/10/25 09:10) Rash cyclobenzaprine (From Flexeril) Allergy (Verified 06/10/25 09:10) Rash and asthma exacerbation environmental allergies Allergy (Verified 06/10/25 09:10) Cleaning products cause asthma attack pineapple Allergy (Verified 06/10/25 09:10) Rash strawberry Allergy (Verified 06/10/25 09:10) Rash sulfamethoxazole (From Bactrim) Adverse Reaction (Intermediate, Verified 06/10/25 09:10) vertigo trimethoprim (From Bactrim) Adverse Reaction (Intermediate, Verified 06/10/25 09:10) vertigo diazepam (From Valium) Adverse Reaction (Verified 06/10/25 09:10) Cough Medication List - Last Reconciled 06/09/25 by Annmarie Jain LPN aspirin 81 mg PO DAILY atorvastatin 40 mg PO BEDTIME azelastine intranasal benralizumab (Fasenra) 30 mg subcut Q8W blood pressure monitor As directed blood sugar diagnostic (FreeStyle Lite Strips) As directed- checks 4-5 X/day calcium citrate 250 mg PO BID carvedilol 6.25 mg PO DAILY cholecalciferol (vitamin D3) 100 mcg (2 x 50 mcg (2,000 unit)) PO BEDTIME clotrimazole 10 mg PO [DIABETIC SHOES DIABETIC SHOES - 1 PAIR - use as directed -- Dx: E11.9 -- diabetes mellitus] epinephrine 0.3 mg IM Q5M PRN ferrous sulfate (FeroSul) 325 mg PO DAILY fluconazole 100 mg PO DAILY 14 days fluticasone propionate 220 mcg/actuation inhalation hydromorphone 2 mg PO TID-QID PRN 7 days insulin aspart (niacinamide) 100 unit/mL (3 mL) (Fiasp FlexTouch U-100 Insulin) subcutaneously 3 times a day before meals; Fiasp 80-150 16 units 151-200 20 units 201-250 22 units 251-250 24 units over 300 26 units tid with meals with maximum 78 units per day ipratropium bromide 2 sprays intranasal DAILY lactulose 10 grams (15 mL) PO DAILY PRN lancets (FreeStyle Lancets) 4 times a day Lantus Solostar U-100 Insulin (insulin glargine) 32 units (0.32 mL) subcut QPM 30 days NS levalbuterol tartrate 45 mcg/actuation (Xopenex HFA) 2 puffs inhalation Q6H PRN 30 days lidocaine 5% (Lidoderm) 1 patch topical DAILY 30 days loratadine 10 mg PO DAILY losartan 25 mg PO BEDTIME 90 days montelukast 10 mg PO BEDTIME 90 days nebulizers As directed nystatin (Nystop) 1 appl topical BID PRN omeprazole 40 mg PO BID ondansetron 8 mg PO Q8H PRN 10 days pen needle, diabetic USE TO INJECT FOUR TIMES DAILY DIRECTED pyridostigmine bromide 60 mg PO QID Synthroid (levothyroxine) 224 mcg (2 x 112 mcg) PO DAILY NS tiotropium bromide 1.25 mcg/actuation (Spiriva Respimat) 2 puffs inhalation DAILY tizanidine 4 mg (2 x 2 mg) PO BEDTIME PRN 30 days walker walker with wheels and seat HPI HPI MRI Results: Details: History of Present Illness The patient is a 54-year-old female presenting with low back pain radiating to the right hip and thigh. The pain originates from the sacroiliac joint and is exacerbated by an artificial hip on the right side, leading to difficulty in walking. The patient reports resolution of upper back pain previously associated with shingles. Numbness in the right leg is noted, particularly when standing for long periods, due to nerve compression from scoliosis. The scoliosis is severe, contributing to significant nerve compression and right leg symptoms. The patient has received cortisone SIJ injections for pain management, which were initially effective but became difficult due to joint arthritis. A bursa injection in the right hip provided relief for bursitis. The patient has a history of asthma, initially severe and requiring frequent hospitalizations and steroid treatments, now controlled with facetro shots. She also has osteopenia, complicating potential surgical interventions for spine issues. Pain Description - Onset: Chronic pain originating from the sacroiliac joint - Quality: Radiating pain from the lower back to the right hip and thigh - Location: Right hip and thigh, associated with an artificial hip - Radiation: Pain radiates from the sacroiliac joint - Exacerbating factors: Standing for extended periods - Relieving factors: Cortisone injections have provided temporary relief in the past - Interference: Pain affects walking and standing, causing numbness in the right leg Physical Exam - Musculoskeletal: Severe scoliosis with significant nerve compression in the lumbar spine Results - Imaging: MRI reveals severe scoliosis and significant nerve compression in the lumbar spine Pain Management - Affect: Pain impacts daily activities and mood, causing frustration - Analgesia: Current pain medications include Dilaudid, which is not fully effective - Adverse Effects: No specific adverse effects discussed - Activities of Daily Living: Pain interferes with walking and standing, causing numbness in the right leg - Aberrant Drug Related Behaviors: No aberrant behaviors reported [facility] Medical History Acute kidney injury (nontraumatic) Back pain Renal insufficiency Obesity (BMI 30-39.9) Mitochondrial myopathy Diabetes mellitus Portal hypertensive gastropathy Esophageal varices determined by endoscopy Portal hypertension HTN (hypertension) Anemia Chronic restrictive lung disease Brugada syndrome Shortness of breath Encounter for care related to Port-a-Cath Tinea pedis Recurrent cellulitis of lower extremity CHARLES (obstructive sleep apnea) Hypogammaglobulinemia Cellulitis of both lower extremities Right hip pain Lumbar degenerative disc disease Benign essential hypertension Asthma Acquired hypothyroidism Pure hypercholesterolemia Hx of cataract Osteopenia Osteoarthritis of hip Gastritis Surgical History History of revision of total replacement of right hip joint (~12/2019) Hx of hand surgery History of removal of Port-a-Cath History of total right hip arthroplasty (~06/03/19) History of eye surgery (~09/2017) History of hip surgery Hx of foot surgery (~01/02/19) History of removal of cyst Hx of left knee surgery History of elbow surgery (~07/2016) Hx of thumb surgery Hx of appendectomy Hx of hysterectomy (~07/2011) Hx of bilateral breast reduction surgery Family History Father Leukemia Mother Hypertension Diabetes Sister Alive and well Brother Pancreatic cancer Paternal Grandmother Stomach cancer Paternal Grandmother Throat cancer Social History Household Members: Family Housing: Apartment Do you presently have visiting nurse or other home services: No Alcohol intake: never Comment: refused bed alarm Patient Tobacco Use Status: Never used Tobacco e-Cigarette/Vaping Use: Never Used Second Hand Smoke Exposure: No Advance Directives Date on File: 10/02/23 service: No Current occupational status: disabled Current occupation: rt handed Cognitive needs: No Hearing needs: No Vision needs: No Physical Exam Vital Signs: Last Vital Signs Pulse 72 06/09/25 11:53 Resp 16 06/09/25 11:53 BP 155/72 H 06/09/25 11:53 Pulse Ox 94 06/09/25 11:53 Oxygen Delivery Method Room Air 06/09/25 11:53 BMI result Body Mass Index 38.6 Assessment & Plan Assessment & Plan (1) Scoliosis: Code(s): M41.9 - Scoliosis, unspecified Category: Medical Qualifiers: Scoliosis type: other secondary scoliosis Spinal region: lumbosacral Qualified Code(s): M41.57 - Other secondary scoliosis, lumbosacral region (2) Lumbar degenerative disc disease: Code(s): M51.36 - Other intervertebral disc degeneration, lumbar region Category: Medical Qualifiers: Disc-related pain type: discogenic back pain only Qualified Code(s): M51.360 - Other intervertebral disc degeneration, lumbar region with discogenic back pain only Plan Plan - Plan for right L3 and L4 transforaminal epidural steroid injection, acknowledging technical challenges due to lumbar spine anatomy - Consideration of intralaminar epidural steroid injection if transforaminal approach is not feasible - Potential facet injection for right L4-5 facet hypertrophy - Consideration of left sacroiliac joint injection, which has been beneficial in the past - Recommendation for a home exercise program to strengthen the back and core muscles - Prescription for physical therapy to develop a daily home exercise regimen Patient was informed and verbally consented to the use of an ambient scribe for clinic note documentation during this visit. Discussion Notes I discussed with the patient the plan for a right L3 and L4 transforaminal epidural steroid injection, noting the technical challenges due to her lumbar spine anatomy. We also considered the possibility of an intralaminar epidural steroid injection if the transforaminal approach is not feasible. I explained the potential benefits of a facet injection for right L4-5 facet hypertrophy and the option of a left sacroiliac joint injection, which has been beneficial in the past. We discussed the importance of a home exercise program to strengthen her back an d core muscles, and I provided a prescription for physical therapy to develop a daily regimen. Patient Instructions - Follow up with the scheduled epidural steroid injection appointment - Begin a home exercise program to strengthen back and core muscles - Attend physical therapy sessions to develop a daily exercise regimen - Monitor pain levels and report any changes or concerns Orders: Orders PT Evaluation and Treatment 06/09/25 M41.57 - Other secondary scoliosis, lumbosacral region, M51.360 - Other intervertebral disc degeneration, lumbar region with discogenic back pain only Coding Level of Care Code Est Pt Level 4 (28586) Diagnoses Other secondary scoliosis, lumbosacral region M41.57 Scoliosis type: other secondary scoliosis Spinal region: lumbosacral Degeneration of intervertebral disc of lumbar region with discogenic back pain M51.360 Disc-related pain type: discogenic back pain only
[2025-06-09 11:53] VITALS: BP 155/72; PULSE 72; RESP 16; O2SAT 94; BMI 38.6
--- OUTSIDE RECORDS SUMMARY | 2025-06-09 13:19 | XMS_ITS | Clinical Summary ---
Author Organization [facility] Address [address] [place] [address] Phone Care Team Providers Care Weight Count Operator Name Role Phone Cassius Strong MD Primary Care Provider [phone] Allergies Active Allergy Reactions Criticality Noted Date [...] topic Medical Devices Not on file Insurance [facility] CARE MEDICARE REPLACEMENT CJ MEJIA [id number] [facility] MEDICARE REPLACEMENT CJ MEJIA [id number] [facility] MEDICARE REPLACEMENT [facility] MEDICARE REPLACEMENT [facility] MEDICARE REPLACEMENT [facility] MEDICARE REPLACEMENT [facility] MEDICARE REPLACEMENT [facility] MEDICARE REPLACEMENT [facility] [place] [id number] Care Teams Weight Count Operator Relationship Specialty Start Date End Date Cassius Strong MD [address] [address] PCP - General 08/03/17 Additional Source Comments The information contained in this document represents components of the legal health record. It is not the complete legal health record.[facility]
--- OUTSIDE RECORDS SUMMARY | 2025-06-09 13:19 | XMS_ITS | Patient Health Record ---
Author Organization [facility] Address [address] [place] [address] Care Team Providers Care Fraternity Adviser Name Role Phone Cassius Strong Primary Care Provider Colin Mercado Unavailable [phone] ALLERGIES Allergen (clinical drug ingredient) Drug/Non Drug Allergy documented on EMR Reaction Allergy Type Onset Date Status Apples/[place]/Leda ts/Pineapple/Strawb erry/Onion (uncoded) Unknown Allergy Active Gluten [...] out er thigh IM prn Active Ipratropium [place] 0.02 % Inhalation Active Medrol 16 MG [...] Notes Problem Food allergy (Z91.018) Active confirmed 810577222 Problem 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) Active confirmed 994925697 Problem Osteopenia (M85.80) Active confirmed 779765408 Problem Severe persistent asthma, uncomplicated (J45.50) Active confirmed 649922881 Problem Pancreatitis (K85.9) Active confirmed 03060763 Problem Steroid-dependent asthma (J45.909) Active confirmed 6082682443228909 Problem Insulin dependent diabetes mellitus with complications (E11.8) Active confirmed 26862307 Problem Myasthenia gravis (G70.00) Active confirmed 06359416 PLAN OF TREATMENT No Information Insurance Providers Payer Name Payer Address Payer Phone Subscriber Number Group Number Insured Name Patient Relationship to Insured Coverage Start Date Coverage End Date Medicare/Ronit [facility] [employer] [address] [place] [phone] [id number] Kala Deysi Self - patient is the insured Medicaid [address] [place] [address] [id number] Deysi Armendariz Self - patient is the [...]
--- OUTSIDE RECORDS SUMMARY | 2025-06-09 13:20 | XMS_ITS ---
Author Name [facility] Organization Unknown Encounters Encounter Type Encounter Reason Primary Diagnosis Location Date Ambulatory [facility] [place] 03/21/2024
--- OUTSIDE RECORDS SUMMARY | 2025-06-09 13:20 | XMS_ITS | Clinical Summary ---
Author Organization [facility] it Address [address] [place] [address] Care Team Providers Care Entry Level Buyer Name Role Phone Cassius Strong MD Primary Care Provider Surgical History Surgery Date Site/Laterality Comments HYSTERECTOMY PROCEDURE: HISTORICAL HYSTERECTOMY FOOT SURGERY PROCEDURE: HISTORICAL FOOT SURGERY APPENDECTOMY PROCEDURE: HISTORICAL APPENDECTOMY Medical History Medical History Date Comments Brugada syndrome 08/01/2017 DX:Brugada synd adam Chronic obstructive pulmonar y disease ([facility] V24, [facility] V28) 07/07/2017 DX:Chronic obstructive pulm onary disease (HCC) Diabetes mellitus type 2, un complicated ([facility] V24, [facility] V28) 08/17/2017 DX:Diabetes mellitus type 2 , uncomplicated (HCC) GERD (gastroesophageal reflux disease) 08/17/2017 DX:GERD (gastroesophageal reflux disease) History of pancreatitis 11/10/2017 DX:Histo ry of pancreatitis Hyperlipidemia 08/17/2017 DX:Hyperlipidemi a Hypogammaglobulinemia ([facility] V24) 08/01/2017 DX:Hypogammaglobulinemia (HCC) Hypothyroidism 08/17/2017 DX:Hypothyroidis m 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[facility] V24, [facility] V28) 017 DX: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HCC) Obesity 05/05/2017 DX:Obesity Obstructive sleep apnea syndrome 08/01/2017 DX:Obstructive sleep apnea syndrome; COMMENT: BiPAP Osteoarthritis 08/17/2017 DX:Osteoarthriti s Port-A-Cath in place 11/10/2017 DX:Port-A-C ath in place RA (rheumatoid arthritis) ([facility] V24, [facility] V28) 08/17/2017 DX:RA (rheumatoid arthritis) (HCC) Severe persistent asthma dep endent on systemic steroids ([facility]/HCC V28) 11/10/2017 DX:Severe persistent a sthma [...] age to complete this topic Care Teams Entry Level Buyer Relationship Specialty Start Date End Date Cassius Strong MD [address] [place] [address] Dr [address] [place]ST[place] Alvarez [facility] - General 04/15/11
--- OUTSIDE RECORDS SUMMARY | 2025-06-09 13:20 | XMS_ITS | Patient Health Record ---
Author Organization [facility] Address [address] [place] [address] Care Team Providers Care Wool Hat Hydraulicker Name Role Phone Cassius Strong MD Primary Care Provider Babak Kendrick Unavailable [phone] Allergies Allergen (clinical drug ingredient) Drug/Non Drug [...] Medrol 8mg Active Ventolin HFA Active Ipratropium [place] Active Ibuprofen 600mg Acti ve Claritin 10mg Active Synthroid 225mcg Act bety Singulair 10mg Activ e Spironolactone 50mg Active Omeprazole 40mg Acti ve Problems Problem Type SNOMED Code ICD Code Onset Dates Problem Status W/U Status Risk Notes Problem Left upper quadrant pain (222845185) Abdominal pain, left upper quadrant (789.02) Active confirmed Problem Constipation (40088164) Constipation (564.00) Active confirmed Problem Gastroesophageal reflux disease (517603990) GERD (gastroesophage al reflux disease) (530.81) Active confirmed Problem Liver function tests abnormal (316701308) Liver function study, abnormal (794.8) Active confirmed Problem Acid reflux (767430414) Acid reflux (530.81) Active confirmed Problem Epigastric pain (28469906) Abdominal discomfort, epigastric (789.06) Active confirmed Plan Of Treatment Future Test Test Name Order Date UPPER GI ENDOSCOPY 04/19/2012 Insurance Providers Payer Name Payer Address Payer Phone Subscriber Number Group Number Insured Name Patient Relationship to Insured Coverage Start Date Coverage End Date [facility] [address] [facility] [phone] [id number] JUANCHO SHANNON Self - patient is the insured Medical (General) History Medical History History ICD Code Denies [place],CVA,renal disease Hypothyroidism Hiatal hernia--EGD in 06/2012 with [...]
== END 2025-06-09 12:32 | disposition home or self-care (01) ==
LOC: HO.PMC 11:47
PROVIDERS: PCP Internal Medicine; Visit Provider Internal Medicine
DX: M41.57 Other secondary scoliosis, lumbosacral region (principal); M51.360 Other intervertebral disc degeneration, lumbar region with discogenic back pain only
CPT/HCPCS: 99214

== ENCOUNTER → 2025-06-09 11:47 | Outpatient (BNVA) | payer OTHER, SELFPAY | PROVIDERS: PCP Internal Medicine; Visit Provider Internal Medicine | DX: Z71.2 Person consulting for explanation of examination or test findings (principal); M41.57 Other secondary scoliosis, lumbosacral region; M51.360 Other intervertebral disc degeneration, lumbar region with discogenic back pain only | CPT/HCPCS: 99212 ==

== ENCOUNTER 2025-06-09 12:35 | Outpatient (REF) | payer OTHER, SELFPAY ==
[2025-06-09 13:13] LABS: Appearance Urine Clear; Glucose Urine UA Negative (Negative); PH 6.0 (5.0-9.0); Specific Gravity - Urine >= 1.030 (1.005-1.025)
[2025-06-09 13:19] LABS: MANUAL DIFF FLAG NO
[2025-06-09 13:30] LABS: Hematocrit 37.8 % (37.0-47.0); Hemoglobin 12.3 g/dl (12.0-16.0); Imm Gran Abs Auto 0.03 X10*3/uL (0.00-0.03); Imm Gran Pct Auto 0.4 % (0.0-0.4); Lymphocytes Absolute Auto 1.6 X10*3/uL (1.2-4.9); Mean Corpuscular HGB Conc 32.5 g/dl (31.0-35.0); Mean Corpuscular Hemoglobin 27.5 pg (27.0-33.0); Mean Corpuscular Volume 84.6 fL (80.0-98.0); NRBC Abs Auto 0.000 X10*3/uL (0.0-0.012); NRBC Pct Auto 0.0 /100WBC (0.0-0.2); Platelet Count 117 X10*3/uL (160-400); Red Blood Count 4.47 X10*6/uL (4.20-5.50); White Blood Count 7.0 X10*3/uL (4.8-10.8)
[2025-06-09 14:00] LABS: Alanine Aminotransferase 63 U/L (0-31); Albumin Level 4.3 g/dL (3.5-5.0); Alkaline Phosphatase 93 U/L (39-117); Anion Gap 12 (12-20); Aspartate Amino Transferase 38 U/L (5-31); Blood Urea Nitrogen 19 mg/dL (9-16); Calcium 9.3 mg/dL (8.4-10.2); Carbon Dioxide 25 mmol/L (22-29); Chloride 107 mmol/L (96-108); Cholesterol 143 mg/dL (<200); Estimated Glomerular Filt Rate > 60; HDL Cholesterol 42 mg/dL (>40); Microalbum/Creatinine Ratio Ur 5.0 ug/mg cr (<30); Potassium 4.3 mmol/L (3.3-5.1); Sodium 140 mmol/L (135-145); Total Protein 6.7 g/dL (6.5-8.0); Triglycerides 80 mg/dL (<150)
== END 2025-06-09 12:36 | disposition home or self-care (01) ==
LOC: HO.10HDL 12:35
PROVIDERS: Visit Provider Internal Medicine
DX: R30.0 Dysuria (principal); E55.9 Vitamin D deficiency, unspecified; D64.9 Anemia, unspecified; E78.00 Pure hypercholesterolemia, unspecified; E10.65 Type 1 diabetes mellitus with hyperglycemia; I10 Essential (primary) hypertension; J45.40 Moderate persistent asthma, uncomplicated; E03.9 Hypothyroidism, unspecified; I82.621 Acute embolism and thrombosis of deep veins of right upper extremity; G71.3 Mitochondrial myopathy, not elsewhere classified; I85.00 Esophageal varices without bleeding; K76.6 Portal hypertension; K31.89 Other diseases of stomach and duodenum; R79.89 Other specified abnormal findings of blood chemistry; M51.360 Other intervertebral disc degeneration, lumbar region with discogenic back pain only; N28.9 Disorder of kidney and ureter, unspecified; M16.0 Bilateral primary osteoarthritis of hip; L98.9 Disorder of the skin and subcutaneous tissue, unspecified; E66.9 Obesity, unspecified; Z68.39 Body mass index [BMI] 39.0-39.9, adult; Z71.3 Dietary counseling and surveillance
CPT/HCPCS: 36415; 80053; 80061; 81003; 82043; 82306; 82570; 84443; 85025; 96127; 99212

== ENCOUNTER 2025-06-09 13:32 | Outpatient (AMB) | payer OTHER, SELFPAY ==
--- NOTE | 2025-06-09 13:49 | A.OFFPC_ITS ---
Vital Signs 06/09/25 13:51 Height 5 ft 4 in Weight 228 lb BMI 39.1 BP 130/58 L Blood Pressure Location Lt brachial Position Sitting Pulse 70 Pulse Source Pulse Oximeter Pulse Oximetry (%) 94 Oxygen Delivery Method Room Air Intake Visit Reasons: 3 mnth f/u Duplicate Maker Required: No Accompanied by: Self / Same As Patient Allergies cephalexin Allergy (Severe, Verified 06/10/25 22:40) Difficulty Breathing latex (LATEX) Allergy (Severe, Verified 06/10/25 22:40) Difficulty Breathing levofloxacin (From LEVAQUIN) Allergy (Severe, Verified 06/10/25 22:40) SHORTNESS OF BREATH, RASH, rash morphine (MORPHINE) Allergy (Severe, Verified 06/10/25 22:40) RASH, asthma exacerbation, rash baclofen (BACLOFEN) Allergy (Intermediate, Verified 06/10/25 22:40) Rash celecoxib (Celebrex) Allergy (Intermediate, Verified 06/10/25 22:40) itching, rash, flushing prednisone (PREDNISONE) Allergy (Intermediate, Verified 06/10/25 22:40) RASH, asthma exacerbation, rash codeine Allergy (Unknown, Verified 06/10/25 22:40) Rash gluten (GLUTEN) Allergy (Unknown, Verified 06/10/25 22:40) UNKNOWN oxycodone Allergy (Unknown, Verified 06/10/25 22:40) rash ranitidine Allergy (Unknown, Verified 06/10/25 22:40) unknown roflumilast (Daliresp) Allergy (Unknown, Verified 06/10/25 22:40) rash tramadol (TRAMADOL) Allergy (Unknown, Verified 06/10/25 22:40) RASH,SHORTNESS OF BREATH AND HEADACHE, asthma exacerbation, rash celery Allergy (Verified 06/10/25 22:40) Rash cyclobenzaprine (From Flexeril) Allergy (Verified 06/10/25 22:40) Rash and asthma exacerbation environmental allergies Allergy (Verified 06/10/25 22:40) Cleaning products cause asthma attack pineapple Allergy (Verified 06/10/25 22:40) Rash strawberry Allergy (Verified 06/10/25 22:40) Rash sulfamethoxazole (From Bactrim) Adverse Reaction (Intermediate, Verified 06/10/25 22:40) vertigo trimethoprim (From Bactrim) Adverse Reaction (Intermediate, Verified 06/10/25 22:40) vertigo diazepam (From Valium) Adverse Reaction (Verified 06/10/25 22:40) Cough Medication List - Last Reconciled 06/09/25 by Cassius Strong MD aspirin 81 mg PO DAILY atorvastatin 40 mg PO BEDTIME azelastine intranasal benralizumab (Fasenra) 30 mg subcut Q8W blood pressure monitor As directed blood sugar diagnostic (FreeStyle Lite Strips) As directed- checks 4-5 X/day calcium citrate 250 mg PO BID carvedilol 6.25 mg PO DAILY cholecalciferol (vitamin D3) 100 mcg (2 x 50 mcg (2,000 unit)) PO BEDTIME clotrimazole 10 mg PO [DIABETIC SHOES DIABETIC SHOES - 1 PAIR - use as directed -- Dx: E11.9 -- diabetes mellitus] epinephrine 0.3 mg IM Q5M PRN ferrous sulfate (FeroSul) 325 mg PO DAILY fluconazole 100 mg PO DAILY 14 days fluticasone propionate 220 mcg/actuation inhalation hydromorphone 2 mg PO TID-QID PRN 7 days insulin aspart (niacinamide) 100 unit/mL (3 mL) (Fiasp FlexTouch U-100 Insulin) subcutaneously 3 times a day before meals; Fiasp 80-150 16 units 151-200 20 units 201-250 22 units 251-250 24 units over 300 26 units tid with meals with maximum 78 units per day ipratropium bromide 2 sprays intranasal DAILY lactulose 10 grams (15 mL) PO DAILY PRN lancets (FreeStyle Lancets) 4 times a day Lantus Solostar U-100 Insulin (insulin glargine) 32 units (0.32 mL) subcut QPM 30 days NS levalbuterol tartrate 45 mcg/actuation (Xopenex HFA) 2 puffs inhalation Q6H PRN 30 days lidocaine 5% (Lidoderm) 1 patch topical DAILY 30 days loratadine 10 mg PO DAILY losartan 25 mg PO BEDTIME 90 days montelukast 10 mg PO BEDTIME 90 days nebulizers As directed nystatin (Nystop) 1 appl topical BID PRN omeprazole 40 mg PO BID ondansetron 8 mg PO Q8H PRN 10 days pen needle, diabetic USE TO INJECT FOUR TIMES DAILY DIRECTED pyridostigmine bromide 60 mg PO QID Synthroid (levothyroxine) 224 mcg (2 x 112 mcg) PO DAILY NS tiotropium bromide 1.25 mcg/actuation (Spiriva Respimat) 2 puffs inhalation DAILY tizanidine 4 mg (2 x 2 mg) PO BEDTIME PRN 30 days walker walker with wheels and seat Tobacco use date assessed: 06/09/25 Dental Screening Dental Screen Date: 06/09/25 Did you have a dental visit in the last 12 months?: No Did you have a dental problem in the last 6 months where you did not have access to dental care?: No Was dental information given to patient?: No HPI 3 mnth f/u HPI Details Patient comes in today for her follow-up visit States that she feels okay She has noticed that her right arm has been swollen lately but denies any pain in her arm She denies any headaches or dizziness Denies any chest pains, no increased shortness of breath No nausea/vomiting, no abdominal pain No change in bowel habits noted Still has chronic low back pain and hip pain - states that her medications help keep her pain manageable and she will need her hydromorphone Rx refilled today Adds that she has a few slightly raised hyperpigmented scalp lesions that she would like to have checked out She had her follow-up labs done earlier today - to discuss her results [facility] Medical History CKD (chronic kidney disease) stage 3, GFR 30-59 ml/min Class 3 obesity Acute kidney injury (nontraumatic) Back pain Renal insufficiency Obesity (BMI 30-39.9) Mitochondrial myopathy Diabetes mellitus Portal hypertensive gastropathy Esophageal varices determined by endoscopy Portal hypertension HTN (hypertension) Anemia Chronic restrictive lung disease Brugada syndrome Shortness of breath Encounter for care related to Port-a-Cath Tinea pedis Recurrent cellulitis of lower extremity CHARLES (obstructive sleep apnea) Hypogammaglobulinemia Cellulitis of both lower extremities Right hip pain Lumbar degenerative disc disease Benign essential hypertension Asthma Acquired hypothyroidism Pure hypercholesterolemia Hx of cataract Osteopenia Osteoarthritis of hip Gastritis Surgical History History of revision of total replacement of right hip joint (~12/2019) Hx of hand surgery History of removal of Port-a-Cath History of total right hip arthroplasty (~06/03/19) History of eye surgery (~09/2017) History of hip surgery Hx of foot surgery (~01/02/19) History of removal of cyst Hx of left knee surgery History of elbow surgery (~07/2016) Hx of thumb surgery Hx of appendectomy Hx of hysterectomy (~07/2011) Hx of bilateral breast reduction surgery Family History Father Leukemia Mother Hypertension Diabetes Sister Alive and well Brother Pancreatic cancer Paternal Grandmother Stomach cancer Paternal Grandmother Throat cancer Social History Household Members: Family Housing: Apartment Do you presently have visiting nurse or other home services: No Alcohol intake: never Comment: low risk, non-skid socks Patient Tobacco Use Status: Never used Tobacco e-Cigarette/Vaping Use: Never Used Second Hand Smoke Exposure: No Advance Directives Date on File: 10/02/23 service: No Current occupational status: disabled Current occupation: rt handed Cognitive needs: No Hearing needs: No Vision needs: No Questionnaire PHQ-9 Over the last 2 weeks, how often have you been bothered by any of the following problems? 1. Little interest or pleasure in doing things: not at all 2. Feeling down, depressed, or hopeless: not at all 3. Trouble falling or staying asleep, or sleeping too much: not at all 4. Feeling tired or having little energy: more than half the days 5. Poor appetite or overeating: not at all 6. Feeling bad about yourself - or that you are a failure or have let yourself or your family down: not at all 7. Trouble concentrating on things, such as reading the newspaper or watching television: not at all 8. Moving or speaking so slowly that other people could have noticed. Or the opposite - being so fidgety or restless that you have been moving around a lot more than usual: not at all 9. Thoughts that you would be better off or of hurting yourself in some way: not at all Total score: 2 Depression Screening Interpretation: Negative Depression Screening Done: Yes 35098 - PHQ-9 Billing: Yes Source: Developed by Drs. Babak Mcintosh, Savannah Vera, Christian Crowell and colleagues, with an educational sarah from [employer]. Thrive Questionnaire Date Thrive assessed: 06/09/25 I am a: Patient What is your living situation today?: I have a steady place to live Within the past 12 months, did the food you bought not last and you didn't have the money to get more?: Never true Within the past 12 months, did you worry whether your food would run out before you got money to buy more?: Never true Do you have trouble paying for medicines?: No Do you have trouble getting transportation to medical appointments?: No Do you have trouble paying your heating and electricity bill?: No Do you have trouble taking care of your child, family member or friend?: No Do you have trouble with day-to-day activities such as bathing, preparing meals, shopping, managing finances, etc.?: No Are you currently unemployed and looking for a job?: I choose not to answer this question Are you interested in more education?: No Please select the resources that you would like help with: None Currently or been in a relationship where the following occur: No concerns reported THRIVE Score: 0 AUDIT C Alcohol Use Questionnaire (AUDIT-C) 1. How often do you have a drink containing alcohol?: Never 3. How often do you have six or more drinks on one occasion?: Never Total Score: 0 Score Reviewed/Action Taken: Yes REI-7 AMB Questionnaire REI-7 Date REI - 7 assessed: 02/14/25 Feeling nervous, anxious, or on edge: 0 = Not at all Not being able to stop or control worryin = Not at all Worrying too much about different things: 0 = Not at all Trouble relaxin = Several days Being so restless that it is hard to sit still: 1 = Several days Becoming easily annoyed or irritable: 0 = Not at all Feeling afraid as if something awful might happen: 0 = Not at all Total REI-7 score (0-4 normal; 5-9 mild; 10-14 moderate; 15-21 severe): 2 Source: Developed by Savannah Rosenbaum, Christian Crowell and colleagues, with an educational sarah from [employer]. Review of Systems Const Denies chills, Reports difficulty sleeping (waking up often due to increased pain over her lower back ), Reports fatigue, Denies fever(s) and Denies headache(s) ENT Denies dysphagia, Denies dizziness, Denies otalgia, Denies headache(s), Denies neck pain, Denies odynophagia and Denies sore throat Card Denies chest pain, Denies palpitations and Reports dyspnea on exertion (mild) Resp Denies chest congestion, Denies cough and Reports dyspnea on exertion (mild) GI Denies abdominal pain, Reports constipation (chronic), Denies dysphagia, Denies heartburn, Denies diarrhea, Denies nausea, Denies odynophagia and Denies vomiting Denies difficulty voiding, Denies nocturia, Denies dysuria and Denies urinary urgency Musc Reports back pain (over the lumbar spine - chronic), Reports arthralgias (involving multiple joints, including both hips and knees) and Denies neck pain Skin/Breast Details: (+) multiple slightly raised keratotic lesions on the frontal scalp Denies rash Neuro Denies dizziness and Denies headache(s) Endo Reports fatigue and Denies palpitations Umair/Lymph Details: (+) swelling of the right arm Physical exam (Primary Care) Vital Signs: Last Vital Signs Pulse 70 06/09/25 13:51 BP 130/58 L 06/09/25 13:51 Pulse Ox 94 06/09/25 13:51 Oxygen Delivery Method Room Air 06/09/25 13:51 BMI result Body Mass Index 39.1 Tobacco/Smoking Status: Tobacco use Status Tobacco use date assessed 06/09/25 06/09/25 13:55 Patient Tobacco Use Status Never used Tobacco 06/09/25 13:55 e-Cigarette/Vaping Use Never Used 06/09/25 13:55 PHQ-9: PHQ-9 Score PHQ-9: Total score 2 06/09/25 14:42 Depression Screening Interpretation: Negative Thrive Assessment: Date of Thrive Assessment Date Thrive assessed 06/09/25 06/09/25 14:42 Currently or been in a relationship where the following occur: No concerns reported Const General: no acute distress and alert HENMT Ears: TM's normal bilaterally and EAC's normal Throat: Yes posterior oropharynx normal and Yes tonsils normal (no TP congestion noted) Neck Neck: Yes supple and No lymphadenopathy Thyroid: Thyroid normal Resp Auscultation: clear to auscultation bilaterally, no rales and no wheezes Cardio Rate: regular rate Rhythm: regular rhythm Heart sounds: no murmurs GI Palpation (GI): Soft to palpation and nontender Auscultation: normal bowel sounds General: Yes no CVA tenderness Back/Spine/Pelvis Back: no CVA tenderness Thoracic/Lumbar Spine: lumbar spinal tenderness Skin Other: (+) scattered multiple raised keratotic lesions on the frontal scalp Rashes: no rashes Extrem General: Yes no clubbing, cyanosis or edema and Yes edema (1+ edema of the right upper extremity) Right lower extremity: hip/thigh Details: tenderness Location: of the hip and k nee Details: tenderness; no swelling Left lower extremity: hip/thigh Details: tenderness Location: of the hip and knee Details: tenderness; no swelling Results Reviewed Results Reviewed: Laboratory Tests 06/09/25 12:40 WBC 7.0 Hgb 12.3 Hct 37.8 Plt Count 117 L Sodium 140 Potassium 4.3 Creatinine 0.91 Estimated GFR > 60 Fasting Glucose 220 H Calcium 9.3 D AST 38 H ALT 63 H Triglycerides 80 Cholesterol 143 LDL Cholesterol, Calc 85 HDL Cholesterol 42 25-OH Vitamin D Total 36.8 TSH 1.45 Ur Specific [place] >= 1.030 H Urine Protein Negative Urine Glucose (UA) Negative Urine Blood Negative Urine Nitrite Negative Ur Leukocyte Esterase Negative Microalb/Creat Ratio 5.0 Coding Level of Care Code Est Pt Level 4 (00004) Diagnoses Type 1 diabetes mellitus with hyperglycemia E10.65 Diabetes mellitus complication status: with hyperglycemia Diabetes mellitus type: type 1 Benign essential hypertension I10 Pure hypercholesterolemia E78.00 Moderate persistent asthma without complication J45.40 Asthma complication type: uncomplicated Asthma persistence: persistent Asthma severity: moderate Acquired hypothyroidism E03.9 Acute deep vein thrombosis (DVT) of other vein of right upper extremity I82.621 Affected thrombotic vein of extremity: other upper extremity vein Chronicity: acute Mitochondrial myopathy G71.3 Esophageal varices determined by endoscopy I85.00 Portal hypertensive gastropathy K76.6; K31.89 Elevated LFTs R79.89 Anemia, unspecified type D64.9 Anemia type: unspecified type Renal insufficiency N28.9 Degeneration of intervertebral disc of lumbar region with discogenic back pain M51.360 Disc-related pain type: discogenic back pain only Primary osteoarthritis of both hips M16.0 Laterality: bilateral Osteoarthritis type: primary Skin lesion of scalp L98.9 Obesity (BMI 30-39.9) E66.9 Additional Codes PHQ-9 - 65586 - PHQ-9 Billing: Yes ([id number]) Assessment & Plan Assessment & Plan (1) Diabetes mellitus: Code(s): E11.9 - Type 2 diabetes mellitus without complications Category: Medical Qualifiers: Diabetes mellitus complication status: with hyperglycemia Diabetes mellitus type: type 1 Qualified Code(s): E10.65 - Type 1 diabetes mellitus with hyperglycemia Plan: Her HgbA1c was at 9.8% when last checked at the endocrinology clinic back in January 2025; HgbA1c was previously at 8.6% on 08/01/2024 - goal is at least <7.0% Reinforced diabetic diet She was reclassified as LORNE (type 1 diabetes) instead when her REI antibody test came back positive in 2021 Her Metformin was recently stopped and she currently continues on Fiasp dosed at 6-10 units TID with meals per sliding scale Her Tresiba was recently doubled up by endocrinology from 16 units to 32 units QD Follow up with endocrinology as scheduled - she has appointment scheduled for tomorrow (2) Benign essential hypertension: Code(s): I10 - Essential (primary) hypertension Category: Medical Plan: Reinforced low sodium diet - goal is systolic BP of at least 120 to 130 mm or less Continue Carvedilol 6.25 mg QD and Losartan 25 mg QD She was started on Carvedilol 6.25 mg QD in September 2023 more for her hypertensive portal gastropathy; Metoprolol was discontinued Her Losartan 25 mg QD was HELD for a while a few months ago due to low BP and recurrent dizziness - her BP has gone up since and she was eventually started back on Losartan at 25 mg Patient is reminded to continue monitoring her blood pressure regularly (3) Pure hypercholesterolemia: Code(s): E78.00 - Pure hypercholesterolemia, unspecified Category: Medical Plan: Results of her labs done earlier today reviewed and discussed with patient Reinforced low cholesterol diet Continue Atorvastatin 40 mg QD Will recheck her labs and fasting lipids in 3 months for follow up (4) Asthma: Code(s): J45.909 - Unspecified asthma, uncomplicated Category: Medical Qualifiers: Asthma complication type: uncomplicated Asthma persistence: persistent Asthma severity: moderate Qualified Code(s): J45.40 - Moderate persistent asthma, uncomplicated Plan: Controlled Continue Montelukast 10 mg once a day in the evening, Spiriva Respimat 20-100 mcg 1 inhalation 4 times a day, Ventolin HFA 2 puffs 4 times a day as needed and DuoNeb nebulizer solution 3 mL via nebulizer 4 times a day as needed Continue Fasenra 30 mg subcutaneous injection every 8 weeks Follow up with pulmonary as scheduled (5) Acquired hypothyroidism: Code(s): E03.9 - Hypothyroidism, unspecified Category: Medical Plan: Continue Synthroid 224 mcg QD Will continue to monitor her TFTs regularly Follow up with endocrinology as scheduled (6) Deep vein thrombosis (DVT) of right upper extremity: Code(s): I82.621 - Acute embolism and thrombosis of deep veins of right upper extremity Category: Medical Qualifiers: Affected thrombotic vein of extremity: other upper extremity vein Chronicity: acute Qualified Code(s): I82.621 - Acute embolism and thrombosis of deep veins of right upper extremity Plan: Venous doppler of the right upper extremity done at the ER on 09/03/2024 when patient presented there with right arm swelling and pain revealed (+) catheter related deep venous thrombosis involving the right axillary vein and basilic vein Her right upper extremity PICC line was discontinued in the ER and she was then started on Eliquis 5 mg BID but was subsequently switched over to Xarelto 20 mg QD as she could not tolerate Eliquis (syncopal episodes?) Will now send her for repeat venous doppler on her right upper extremity to ensure resolution of her DVT (7) Mitochondrial myopathy: Code(s): G71.3 - Mitochondrial myopathy, not elsewhere classified Category: Medical Plan: Continue Mestinon tablets 60 mg 4 times a day Patient also receives Gammagard infusion 40 mg IV every [address] up with Dr. Cobian and with neurology as scheduled for continuing management (8) Esophageal varices determined by endoscopy: Code(s): I85.00 - Esophageal varices without bleeding Category: Medical Plan: EGD done in September 2023 revealed (+) large varices that required banding x 5 and hemospray application Patient also had a gastric polyp that was removed surgically Repeat EGD done in November 2023 revealed (+) gastric polyps (pathology came back benign), portal hypertensive gastropathy and esophageal varices - banding and hemospray were again required Repeat colonoscopy showed (+) internal hemorrhoids and probable portal hypert ensive colonopathy She is reminded to avoid all NSAIDs completely Continue Omeprazole 40 mg BID; continue Carvedilol 6.25 mg QD for hypertensive portal gastropathy Follow up with GI as scheduled (9) Portal hypertensive gastropathy: Code(s): K76.6 - Portal hypertension; K31.89 - Other diseases of stomach and duodenum Category: Medical Plan: EGD done in September 2023 and November 2023 revealed (+) large esophageal varices, gastric polyps (pathology came back benign) and portal hypertensive gastropathy that required banding and hemospray application Repeat colonoscopy showed (+) internal hemorrhoids and 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 Her spleen is enlarged and measures about 14.5 cm Will continue to monitor her LFTs regularly (11) Anemia: Code(s): D64.9 - Anemia, unspecified Category: Medical Qualifiers: Anemia type: unspecified type Qualified Code(s): D64.9 - Anemia, unspecified Plan: This is likely multifactorial, including due to her recent Hx of GI bleeding, as well as anemia of chronic disease Will continue to monitor her CBC closely for now Follow up with hematology as scheduled - she sees Dr. Bains (12) Renal insufficiency: Code(s): N28.9 - Disorder of kidney and ureter, unspecified Category: Medical Plan: Her renal function appears to have declined over the past month and she now have numbers similar to those seen in CKD stage 3 - this is likely in relation to her recent infection as well as her IV Abx Will continue to monitor her renal function for now and it has been emphasized to patient that she should avoid all potential nephrotoxic Rx as much as possible Will recheck her chem profile and renal function in 3 months for follow up (13) Lumbar degenerative disc disease: Code(s): M51.36 - Other intervertebral disc degeneration, lumbar region Category: Medical Qualifiers: Disc-related pain type: discogenic back pain only Qualified Code(s): M51.360 - Other intervertebral disc degeneration, lumbar region with discogenic back pain only Plan: Reinforced activity and weight-lifting restrictions Continue Hydromorphone 2 mg 3 times a day as needed - patient requested to have it increased to 4 times a day temporarily while pain management is trying to get her worked up for her low back pain (Rx refilled) Have advised patient that I will agree to increasing her dosing to 4 times a day when her prescription is due for refill next week She was seen by pain management and sent for an MRI of her lumbar spine for further evaluation - MRI done on 05/26/2025 revealed (+) moderately severe rotatory scoliosis with associated degenerative changes Follow up with pain management as scheduled (14) Osteoarthritis of hip: Code(s): M16.9 - Osteoarthritis of hip, unspecified Category: Medical Qualifiers: Laterality: bilateral Osteoarthritis type: primary Qualified Code(s): M16.0 - Bilateral primary osteoarthritis of hip Plan: She continues to experience increased pain in her right hip despite her arthroplasty followed by revision surgery in 2019 Follow up with orthopedics ([facility]) as scheduled She recalls getting some hip x-rays done at [facility] a few months ago but does not know how her x-rays came out Follow-up with pain management as scheduled (15) Skin lesion of scalp: Code(s): L98.9 - Disorder of the skin and subcutaneous tissue, unspecified Category: Medical Plan: Will refer her to dermatology for further evaluation and management (16) Obesity (BMI 30-39.9): Code(s): E66.9 - Obesity, unspecified Category: Medical Plan: Reinforced diet; exercise and weight loss are currently unrealistic expectations due to her multiple comorbidities Plan Follow up in 3 months Orders: Orders Lipid Panel 3 Months E78.00 - Pure hypercholesterolemia, unspecified US venous duplex UE RT 06/09/25 I82.621 - Acute embolism and thrombosis of deep veins of right upper extremity Complete Blood Count Auto Diff 3 Months D64.9 - Anemia, unspecified Comprehensive Avant. Panel Fast 3 Months E78.00 - Pure hypercholesterolemia, unspecified Referrals Dermatology Referral L57.0 - Actinic keratosis Medications: Refilled hydromorphone Partial Fill upon patient request. Covering for Dr. Strong 2 mg PO TID-QID PRN 25 tabs 0RF pain 7 days
[2025-06-09 13:51] VITALS: BP 130/58; PULSE 70; O2SAT 94; BMI 39.1
== END 2025-06-09 15:45 | disposition home or self-care (01) ==
LOC: HO.HMCH 13:33
PROVIDERS: PCP Internal Medicine; Visit Provider Internal Medicine
DX: E10.65 Type 1 diabetes mellitus with hyperglycemia (principal); I82.621 Acute embolism and thrombosis of deep veins of right upper extremity; I85.00 Esophageal varices without bleeding; K76.6 Portal hypertension; I10 Essential (primary) hypertension; E78.00 Pure hypercholesterolemia, unspecified; J45.40 Moderate persistent asthma, uncomplicated; E03.9 Hypothyroidism, unspecified; G71.3 Mitochondrial myopathy, not elsewhere classified; K31.89 Other diseases of stomach and duodenum; R79.89 Other specified abnormal findings of blood chemistry; D64.9 Anemia, unspecified

== ENCOUNTER 2025-06-10 09:02 | Outpatient (AMB) | payer OTHER, SELFPAY ==
[2025-06-10 09:03] VITALS: BP 122/78; PULSE 78; O2SAT 98; BMI 39.3
--- NOTE | 2025-06-10 09:03 | MHC.OFFVIS ---
Vital Signs 06/10/25 09:03 Height 5 ft 4 in Weight 228 lb 13.437 oz BMI 39.3 BP 122/78 Blood Pressure Location Lt brachial Position Sitting Pulse 78 Pulse Source Pulse Oximeter Pulse Oximetry (%) 98 Oxygen Delivery Method Room Air Intake Visit Reasons: DM Intake Note: Patient present today for Type 1 Diabetes Mellitus Last Diabetic eye exam: 11/2024 Last Podiatry Visit: Doesn't have one Random Glucose: 168 mg/dl HgA1C: 8.7% Dealership General Manager Required: No Accompanied by: Self / Same As Patient Allergies cephalexin Allergy (Severe, Verified 06/10/25 09:10) Difficulty Breathing latex (LATEX) Allergy (Severe, Verified 06/10/25 09:10) Difficulty Breathing levofloxacin (From LEVAQUIN) Allergy (Severe, Verified 06/10/25 09:10) SHORTNESS OF BREATH, RASH, rash morphine (MORPHINE) Allergy (Severe, Verified 06/10/25 09:10) RASH, asthma exacerbation, rash baclofen (BACLOFEN) Allergy (Intermediate, Verified 06/10/25 09:10) Rash celecoxib (Celebrex) Allergy (Intermediate, Verified 06/10/25 09:10) itching, rash, flushing prednisone (PREDNISONE) Allergy (Intermediate, Verified 06/10/25 09:10) RASH, asthma exacerbation, rash codeine Allergy (Unknown, Verified 06/10/25 09:10) Rash gluten (GLUTEN) Allergy (Unknown, Verified 06/10/25 09:10) UNKNOWN oxycodone Allergy (Unknown, Verified 06/10/25 09:10) rash ranitidine Allergy (Unknown, Verified 06/10/25 09:10) unknown roflumilast (Daliresp) Allergy (Unknown, Verified 06/10/25 09:10) rash tramadol (TRAMADOL) Allergy (Unknown, Verified 06/10/25 09:10) RASH,SHORTNESS OF BREATH AND HEADACHE, asthma exacerbation, rash celery Allergy (Verified 06/10/25 09:10) Rash cyclobenzaprine (From Flexeril) Allergy (Verified 06/10/25 09:10) Rash and asthma exacerbation environmental allergies Allergy (Verified 06/10/25 09:10) Cleaning products cause asthma attack pineapple Allergy (Verified 06/10/25 09:10) Rash strawberry Allergy (Verified 06/10/25 09:10) Rash sulfamethoxazole (From Bactrim) Adverse Reaction (Intermediate, Verified 06/10/25 09:10) vertigo trimethoprim (From Bactrim) Adverse Reaction (Intermediate, Verified 06/10/25 09:10) vertigo diazepam (From Valium) Adverse Reaction (Verified 06/10/25 09:10) Cough Medication List - Last Reconciled 06/10/25 by Rachel Cornell MD aspirin 81 mg PO DAILY atorvastatin 40 mg PO BEDTIME azelastine intranasal benralizumab (Fasenra) 30 mg subcut Q8W blood pressure monitor As directed blood sugar diagnostic (FreeStyle Lite Strips) As directed- checks 4-5 X/day calcium citrate 250 mg PO BID carvedilol 6.25 mg PO DAILY cholecalciferol (vitamin D3) 100 mcg (2 x 50 mcg (2,000 unit)) PO BEDTIME clotrimazole 10 mg PO [DIABETIC SHOES DIABETIC SHOES - 1 PAIR - use as directed -- Dx: E11.9 -- diabetes mellitus] epinephrine 0.3 mg IM Q5M PRN ferrous sulfate (FeroSul) 325 mg PO DAILY fluconazole 100 mg PO DAILY 14 days fluticasone propionate 220 mcg/actuation inhalation hydromorphone 2 mg PO TID-QID PRN 7 days insulin aspart (niacinamide) 100 unit/mL (3 mL) (Fiasp FlexTouch U-100 Insulin) subcutaneously 3 times a day before meals; Fiasp 80-150 16 units 151-200 20 units 201-250 22 units 251-250 24 units over 300 26 units tid with meals with maximum 78 units per day ipratropium bromide 2 sprays intranasal DAILY lactulose 10 grams (15 mL) PO DAILY PRN lancets (FreeStyle Lancets) 4 times a day Lantus Solostar U-100 Insulin (insulin glargine) 32 units (0.32 mL) subcut QPM 30 days NS levalbuterol tartrate 45 mcg/actuation (Xopenex HFA) 2 puffs inhalation Q6H PRN 30 days lidocaine 5% (Lidoderm) 1 patch topical DAILY 30 days loratadine 10 mg PO DAILY losartan 25 mg PO BEDTIME 90 days montelukast 10 mg PO BEDTIME 90 days nebulizers As directed nystatin (Nystop) 1 appl topical BID PRN omeprazole 40 mg PO BID ondansetron 8 mg PO Q8H PRN 10 days pen needle, diabetic USE TO INJECT FOUR TIMES DAILY DIRECTED pyridostigmine bromide 60 mg PO QID Synthroid (levothyroxine) 224 mcg (2 x 112 mcg) PO DAILY NS tiotropium bromide 1.25 mcg/actuation (Spiriva Respimat) 2 puffs inhalation DAILY tizanidine 4 mg (2 x 2 mg) PO BEDTIME PRN 30 days walker walker with wheels and seat HPI Comments Details: 54-year-old female who was seen today follow-up for LORNE type 1 diabetes. Last seen by Maeve Espino APRN in January 2025 has positive anti daphnie D5 antibody. She was initially diagnosed with diabetes approximately 2015 and was treated with metformin A1C 8.7% 06/10/25 POC 9.8% 01/30/25. She was previously seen by Dr. Mahan for polycystic ovary syndrome and hypothyroidism she has had prior episodes of pancreatitis in the past. She has declined going on a sensor in the past due to skin sensitivity. She needs to improve A1C for toe surgery which has been postponed for now. sees [facility] Current regimen Tresiba at bedtime 22 units (she was supposed to be using 32 units, I think she just titrated down herself to 22 units?) Fiasp requiring 16-20 units tid subcutaneously 3 times a day before meals; Fiasp 80-150 16 units 151-200 20 units 201-250 22 units 251-250 24 units over 300 26 units Glucometer could not be downloaded by the front staff but I reviewed the readings on the meter am readings in the am around 160s later in the day 180s to 200s She is family history of type 2 diabetes: Mother with type 2 Brother with type 1 diagnosed in childhood Her last eye examination was 12/10, she denies retinopathy. Denies nephropathy, she is on an losartan 25 mg daily . 06/09 microalbumin less than 5.0 05/2025 eGFR>60 Denies numbness, tingling, cramping in the legs She has HLD, on atorvatsatin 20 mg , has non obstructive CAD , following with Cardiology Diet: She has seen a bone char kiln operator in the past and declines referral. She is gluten intolerant and has other dietary intolerances. Physical exam General: sitting comfortably in no acute distress HEENT: normocephalic/atraumatic, Neck: supple, Cardiac: normal heart sounds Pulm: normal breath sounds B/L, no added breath sounds Abd: not distended, no tenderness Extremities: no edema, no signs of myxedema Laboratory Tests 06/09/25 06/10/25 12:40 09:13 Hgb 12.3 Hct 37.8 Plt Count 117 L Creatinine 0.91 Estimated GFR > 60 Glucose (Clinic) 168 H AST 38 H ALT 63 H Triglycerides 80 Cholesterol 143 LDL Cholesterol, Calc 85 HDL Cholesterol 42 TSH 1.45 Urine Creatinine 237.69 Urine Microalbumin 12.0 Microalb/Creat Ratio 5.0 PFSH Medical History Acute kidney injury (nontraumatic) Back pain Renal insufficiency Obesity (BMI 30-39.9) Mitochondrial myopathy Diabetes mellitus Portal hypertensive gastropathy Esophageal varices determined by endoscopy Portal hypertension HTN (hypertension) Anemia Chronic restrictive lung disease Brugada syndrome Shortness of breath Encounter for care related to Port-a-Cath Tinea pedis Recurrent cellulitis of lower extremity CHARLES (obstructive sleep apnea) Hypogammaglobulinemia Cellulitis of both lower extremities Right hip pain Lumbar degenerative disc disease Benign essential hypertension Asthma Acquired hypothyroidism Pure hypercholesterolemia Hx of cataract Osteopenia Osteoarthritis of hip Gastritis Surgical History History of revision of total replacement of right hip joint (~12/2019) Hx of hand surgery History of removal of Port-a-Cath History of total right hip arthroplasty (~06/03/19) History of eye surgery (~09/2017) History of hip surgery Hx of foot surgery (~01/02/19) History of removal of cyst Hx of left knee surgery History of elbow surgery (~07/2016) Hx of thumb surgery Hx of appendectomy Hx of hysterectomy (~07/2011) Hx of bilateral breast reduction surgery Family History Father Leukemia Mother Hypertension Diabetes Sister Alive and well Brother Pancreatic cancer Paternal Grandmother Stomach cancer Paternal Grandmother Throat cancer Social History Household Members: Family Housing: Apartment Do you presently have visiting nurse or other home services: No Alcohol intake: never Comment: refused bed alarm Patient Tobacco Use Status: Never used Tobacco e-Cigarette/Vaping Use: Never Used Second Hand Smoke Exposure: No Advance Directives Date on File: 10/02/23 service: No Current occupational status: disabled Current occupation: rt handed Cognitive needs: No Hearing needs: No Vision needs: No Physical Exam Vital Signs: Last Vital Signs Pulse 78 06/10/25 09:03 BP 122/78 06/10/25 09:03 Pulse Ox 98 06/10/25 09:03 Oxygen Delivery Method Room Air 06/10/25 09:03 BMI result Body Mass Index 39.3 Results AMB Hemoglobin A1c AMB Hemoglobin A1c 8.7 % Last Edit by ARIC Camacho on 06/10/25 09:22 Results Reviewed Results Reviewed: Laboratory Last Values Glucose (Clinic) 168 mg/dL (60-115) H 06/10/25 09:13 Assessment & Plan Assessment & Plan (1) Diabetes mellitus: Code(s): E11.9 - Type 2 diabetes mellitus without complications Category: Medical Qualifiers: Diabetes mellitus type: type 1 Diabetes mellitus complication status: with hyperglycemia Qualified Code(s): E10.65 - Type 1 diabetes mellitus with hyperglycemia Plan: 54-year-old with Lorne type 1 diabetes. A1c POC 8.7% 06/10/2025. Glucometer also shows elevated readings. Current regimen: tresiba 22 units increase tresiba every 3 days by 2 units until am glucose is less than 130. Fiasp 80-150 16 units 151-200 20 units 201-250 22 units 251-250 24 units over 300 26 units tid with meals New regimen: Tresiba at bedtime 25 units Fiasp subcutaneously 3 times a day before meals; Fiasp 80-150 18 units 151-200 20 units 201-250 22 units 251-250 24 units over 300 26 units The patient is aware they should contact our office by phone for worsening glucose readings or for any low blood sugars which may warrant a change in diabetes medication. Compliance is encouraged with medications and any followup testing/consults which may have been ordered. Plan I spent 30 minutes in reviewing the record, seeing the patient and documenting in the medical record. Orders: Orders AMB Hemoglobin A1c Today E10.65 - Type 1 diabetes mellitus with hyperglycemia, Z13.9 - Encounter for screening, unspecified Medications: New blood-glucose meter (FreeStyle Lite Meter kit) As directed to check sugars 4 times a day 1 ea 0RF Changed From insulin aspart (niacinamide) 100 unit/mL (3 mL) (Fiasp FlexTouch U-100 Insulin) subcutaneously 3 times a day before meals; Fiasp 80-150 16 units 151-200 20 units 201-250 22 units 251-250 24 units over 300 26 units tid with meals with maximum 78 units per day 150 mL 4RF To insulin aspart (niacinamide) 100 unit/mL (3 mL) (Fiasp FlexTouch U-100 Insulin) subcutaneously 3 times a day before meals; Fiasp 80-150 18 units 151-200 20 units 201-250 22 units 251-250 24 units over 300 26 units tid with meals with maximum 78 units per day 150 mL 4RF From Lantus Solostar U-100 Insulin (insulin glargine) 32 units (0.32 mL) subcut QPM 30 days 12 mL 6RF NS To Lantus Solostar U-100 Insulin (insulin glargine) 25 units (0.25 mL) subcut QPM 7.5 mL 6RF 30 days NS Patient Instructions: Tresiba at bedtime 25 units Fiasp subcutaneously 3 times a day before meals; Fiasp 80-150 18 units 151-200 20 units 201-250 22 units 251-250 24 units over 300 26 units Coding Level of Care Code Est Pt Level 4 (99190) Complex EM visit Add On G2211 Diagnoses Type 1 diabetes mellitus with hyperglycemia E10.65 Diabetes mellitus type: type 1 Diabetes mellitus complication status: with hyperglycemia Time Spent (min) 30
[2025-06-10 09:16] LABS: Glucose, Whole Blood 168 mg/dL (60-115)
--- OUTSIDE RECORDS SUMMARY | 2025-06-10 09:23 | XMS_ITS | Clinical Summary ---
Author Organization [facility] Address [address] [place] [id number] Phone Care Team Providers Care Emergency Medical Technician Basic Name Role Phone Cassius Strong MD Primary Care Provider [phone] Allergies Active Allergy Reactions Criticality Noted Date [...] Medical Devices Not on file Insurance [facility] CARE MEDICARE REPLACEMENT CJ MEJIA [id number] [facility] MEDICARE REPLACEMENT CJ MEJIA [id number] [facility] MEDICARE REPLACEMENT [facility] MEDICARE REPLACEMENT [facility] MEDICARE REPLACEMENT [facility] MEDICARE REPLACEMENT [facility] MEDICARE REPLACEMENT [facility] MEDICARE REPLACEMENT [facility] [place] [id number] Care Teams Emergency Medical Technician Basic Relationship Specialty Start Date End Date Cassius Strong MD [address] [address] PCP - General 08/03/17 Additional Source Comments The information contained in this document represents components of the legal health record. It is not the complete legal health record.[facility]
--- OUTSIDE RECORDS SUMMARY | 2025-06-10 09:23 | XMS_ITS | Patient Health Record ---
Author Organization [facility] Address [address] [place] [address] Care Team Providers Care Agricultural Equipment Sales Engineer Name Role Phone Cassius Strong MD Primary Care Provider Babak Kendrick Unavailable [phone] Allergies Allergen (clinical drug ingredient) Drug/Non Drug [...] Medrol 8mg Active Ventolin HFA Active Ipratropium Olden Active Ibuprofen 600mg Acti ve Claritin 10mg Active Synthroid 225mcg Act bety Singulair 10mg Activ e Spironolactone 50mg Active Omeprazole 40mg Acti ve Problems Problem Type SNOMED Code ICD Code Onset Dates Problem Status W/U Status Risk Notes Problem Left upper quadrant pain (392589872) Abdominal pain, left upper quadrant (789.02) Active confirmed Problem Constipation (66056509) Constipation (564.00) Active confirmed Problem Gastroesophageal reflux disease (207725823) GERD (gastroesophage al reflux disease) (530.81) Active confirmed Problem Liver function tests abnormal (416727437) Liver function study, abnormal (794.8) Active confirmed Problem Acid reflux (432750425) Acid reflux (530.81) Active confirmed Problem Epigastric pain (01438535) Abdominal discomfort, epigastric (789.06) Active confirmed Plan Of Treatment Future Test Test Name Order Date UPPER GI ENDOSCOPY 04/19/2012 Insurance Providers Payer Name Payer Address Payer Phone Subscriber Number Group Number Insured Name Patient Relationship to Insured Coverage Start Date Coverage End Date [facility] [address] [facility] [phone] [id number] JUANCHO SHANNON Self - patient is the insured Medical (General) History Medical History History ICD Code Denies HI,CVA,renal disease Hypothyroidism Hiatal hernia--EGD in 06/2012 with [...]
--- OUTSIDE RECORDS SUMMARY | 2025-06-10 09:23 | XMS_ITS | Patient Health Record ---
Author Organization [facility] Address [address] [place] [address] Care Team Providers Care Retail Chain Store Area Supervisor Name Role Phone Cassius Strong Primary Care Provider Colin Mercado Unavailable [phone] ALLERGIES Allergen (clinical drug ingredient) Drug/Non Drug Allergy documented on EMR Reaction Allergy Type Onset Date Status Apples/Estill/Leda ts/Pineapple/Strawb erry/Onion (uncoded) Unknown Allergy Active Gluten [...] out er thigh IM prn Active Ipratropium [place] 0.02 % Inhalation Active Medrol 16 MG [...] Notes Problem Food allergy (Z91.018) Active confirmed 313466265 Problem 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) Active confirmed 234194465 Problem Osteopenia (M85.80) Active confirmed 307526604 Problem Severe persistent asthma, uncomplicated (J45.50) Active confirmed 214996685 Problem Pancreatitis (K85.9) Active confirmed 35511072 Problem Steroid-dependent asthma (J45.909) Active confirmed 3025514211453449 Problem Insulin dependent diabetes mellitus with complications (E11.8) Active confirmed 72414051 Problem Myasthenia gravis (G70.00) Active confirmed 47676063 PLAN OF TREATMENT No Information Insurance Providers Payer Name Payer Address Payer Phone Subscriber Number Group Number Insured Name Patient Relationship to Insured Coverage Start Date Coverage End Date Medicare/Ronit [facility] [employer] [address] [place] [phone] [id number] Kala Deysi Self - patient is the insured Medicaid [address] [place] [address] [phone] [id number] Deysi Armendariz Self - patient is the [...]
--- OUTSIDE RECORDS SUMMARY | 2025-06-10 09:23 | XMS_ITS | Clinical Summary ---
Author Organization [facility] it Address [address] [place] [address] Care Team Providers Care Filter Tender Jelly Name Role Phone Cassius Strong MD Primary Care Provider Surgical History Surgery Date Site/Laterality Comments HYSTERECTOMY PROCEDURE: HISTORICAL HYSTERECTOMY FOOT SURGERY PROCEDURE: HISTORICAL FOOT SURGERY APPENDECTOMY PROCEDURE: HISTORICAL APPENDECTOMY Medical History Medical History Date Comments Brugada syndrome 08/01/2017 DX:Brugada synd adam Chronic obstructive pulmonar y disease ([facility] V24, [facility] V28) 07/07/2017 DX:Chronic obstructive pulm onary disease (HCC) Diabetes mellitus type 2, un complicated ([facility] V24, [facility] V28) 08/17/2017 DX:Diabetes mellitus type 2 , uncomplicated (HCC) GERD (gastroesophageal reflux disease) 08/17/2017 DX:GERD (gastroesophageal reflux disease) History of pancreatitis 11/10/2017 DX:Histo ry of pancreatitis Hyperlipidemia 08/17/2017 DX:Hyperlipidemi a Hypogammaglobulinemia ([facility] V24) 08/01/2017 DX:Hypogammaglobulinemia (HCC) Hypothyroidism 08/17/2017 DX:Hypothyroidis m 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[facility] V24, [facility] V28) 017 DX: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HCC) Obesity 05/05/2017 DX:Obesity Obstructive sleep apnea syndrome 08/01/2017 DX:Obstructive sleep apnea syndrome; COMMENT: BiPAP Osteoarthritis 08/17/2017 DX:Osteoarthriti s Port-A-Cath in place 11/10/2017 DX:Port-A-C ath in place RA (rheumatoid arthritis) ([facility] V24, [facility] V28) 08/17/2017 DX:RA (rheumatoid arthritis) (HCC) Severe persistent asthma dep endent on systemic steroids ([facility]/HCC V28) 11/10/2017 DX:Severe persistent a sthma [...] age to complete this topic Care Teams Filter Tender Jelly Relationship Specialty Start Date End Date Cassius Strong MD [address] [place] [address] Dr [address] [facility] - General 04/15/11
== END 2025-06-10 09:42 | disposition home or self-care (01) ==
LOC: HO.ENCR 09:02
PROVIDERS: PCP Internal Medicine; Visit Provider Student in an Organized Health Care Education/Training Program
DX: Z13.9 Encounter for screening, unspecified (principal); E10.65 Type 1 diabetes mellitus with hyperglycemia
CPT/HCPCS: 99214; G2211

== ENCOUNTER → 2025-06-10 09:02 | Outpatient (BNVA) | payer OTHER, SELFPAY | PROVIDERS: PCP Internal Medicine; Visit Provider Student in an Organized Health Care Education/Training Program | DX: E10.65 Type 1 diabetes mellitus with hyperglycemia (principal); Z79.4 Long term (current) use of insulin | CPT/HCPCS: 82947; 83036; 99212 ==

== ENCOUNTER 2025-06-10 22:25 | Inpatient (IN) | payer OTHER, SELFPAY ==
--- NOTE | 2025-06-10 | ECG_ITS ---
Test Reason : CP Blood Pressure : */* mmHG Vent. Rate : 118 BPM Atrial Rate : 118 BPM P-R Int : 156 ms QRS Dur : 112 ms QT Int : 342 ms P-R-T Axes : 38 -21 -4 degrees QTcB Int : 479 ms Sinus tachycardia Brugada pattern, type 1 Moderate voltage criteria for LVH, may be normal variant ( R in aVL , Shen product ) Abnormal ECG When compared with ECG of 17-Aug-2024 21:34, No significant change was found Referred By: Generic ED Physician Electronically Signed By: EAGLE WILLIS
--- NOTE | ~2025-06-10 | CT_ITS ---
EXAMINATION: CT ABDOMEN AND PELVIS WITHOUT CONTRAST CLINICAL INFORMATION: Abdominal pain COMPARISON: March 11, 2025 TECHNIQUE: Multidetector volumetric imaging was performed from the superior aspect of the liver through the pubic symphysis. Sagittal and coronal reformatted images were obtained on the technologist's workstation. This CT examination was performed using dose optimization techniques as appropriate, variously including the following: *Automated exposure control *Adjustment of mA and/or kV according to patient size (this includes techniques or standardized protocols for targeted exams where dose is matched to indication/reason for exam; i.e. extremities or head) *Use of iterative reconstruction technique DLP: 830 mGY*cm FINDINGS: LUNG BASES: The visualized lung bases are unremarkable. LIVER, GALLBLADDER, AND BILIARY TREE: The liver is normal in size, shape, and attenuation. No focal hepatic lesion or biliary ductal dilatation is present. There is layering increased density in the dependent half of the gallbladder consistent with vicarious excretion of contrast. PANCREAS: Low attenuating lesion in the tail of pancreas measuring 9 x 15 mm has shown progressive enlargement since at least 2018. SPLEEN: The spleen is enlarged measuring 14.6 cm. ADRENAL GLANDS: Unremarkable. KIDNEYS AND URETERS: Trace contrast is present in the renal calyces and proximal ureters. Kidneys and ureters are otherwise unremarkable. BLADDER: Bladder is partially distended with contrast. GASTROINTESTINAL TRACT: There is moderate stool throughout the colon. The appendix is not visualized. ABDOMINAL WALL: Small supraumbilical hernia containing adipose tissue, likely greater omentum, is unchanged. LYMPH NODES: Normal. VASCULAR: Mild multifocal calcifications are present. PELVIC VISCERA: Unremarkable. OSSEOUS STRUCTURES: Again noted are changes from total hip arthroplasty on the right. There is moderate dextroscoliosis of the thoracal lumbar junction. There is moderate severe multilevel degenerative disc disease and facet arthropathy in the upper lumbar spine. CT/CT abdomen pelvis wo IV con IMPRESSION: Splenomegaly. Slowly enlarging cystic lesion in the tail of pancreas. Moderate dextroscoliosis and moderate to severe degenerative disc disease and facet osteoarthritis. Persistent contrast in the renal collecting system and vicarious excretion into the gallbladder suggest decreased renal function. Stable small supraumbilical hernia containing greater omentum. Fleischner guidelines were followed. Electronically signed by: Roverto Gray MD 06/11/2025 04:11 PM EDT
--- NOTE | ~2025-06-10 | CT_ITS ---
CLINICAL HISTORY: hypoxia, tachycardia CT angiography chest with contrast. 3D Postprocessing. Comparison: CR - XR CHEST 1V - 06/10/25 23:[address]/SR - CT ABDOMEN PELVIS W IV CON - 03/11/25 21:[address]/REG/SR - CT CHEST WITHOUT IV CONTRAST - 01/02/23 20:18 EDT Findings: The heart size is normal. RV/LV ratio is normal. The thoracic aorta is normal caliber. No acute pulmonary embolus. The visualized thyroid and mediastinum are unremarkable. The lungs are clear. Dystrophic calcifications in the right breast partially visualized. The upper abdomen is unremarkable. The bones are intact. IMPRESSION: 1. No pulmonary embolus. This document has been electronically signed by: Epifanio Daniels MD on 06/11/2025 03:17:20
--- NOTE | ~2025-06-10 | XR_ITS ---
CLINICAL HISTORY: dyspnea, fever 1 view chest x-ray Comparison: DX/AR/SR - XR CHEST 2 VIEWS - 08/01/24 11:[address]/REG/SR - CT CHEST WITHOUT IV CONTRAST - 01/02/23 20:18 EDT Findings: No consolidation or effusion. Normal size heart. Increased right hilar fullness compared to prior imaging. Osseous structures unremarkable. IMPRESSION: Increased right hilar fullness compared to prior imaging. Possible lymphadenopathy. This document has been electronically signed by: Epifanio Daniels MD on 06/11/2025 00:05:22
[2025-06-10 22:35] VITALS: BP 156/88; BP 162/91; PULSE 115; PULSE 120; RESP 27; TEMP 37.2; O2SAT 100; O2SAT 96; BMI 38.6
--- NOTE | 2025-06-10 22:52 | ED.CHESTPAIN ---
HPI - Chest Pain General Chief Complaint: Chest Pain Stated Complaint: Chest Tightness, SOB, fever, RA 100% Time Seen by Provider: 06/10/25 22:52 Source: patient and EMS Mode of arrival: EMS Limitations: no limitations History of Present Illness ED Provider: Dr. Yen Skaggs HPI narrative: 54-year-old female with history of diabetes, hypertension, hyperlipidemia, liver cirrhosis with esophageal varices and portal hypertension, Brugada syndrome and hypothyroidism presenting with shortness of breath and chest discomfort ongoing for the last 24 hours or so. Admits that last night she went to bed feeling fatigued with some body aches and woke this morning with worsening chest discomfort and shortness of breath. Has been using her inhalers at home without relief. States she feels ?pain all over?. Describes her chest pain as an 8/10 tightness. Admits to associated fever as high as 101?. Has been taking Tylenol and aspirin, last dose at around 5:00 p.m. and 6:00 p.m. tonight. Took full-dose aspirin just prior to arrival. Had been feeling well prior to this. Admits to some chronic abdominal discomfort and poor appetite but denies nausea, vomiting or diarrhea. Related Data Home Medications ?Medication ?Instructions ?Recorded ?Confirmed ipratropium bromide 42 mcg (0.06 2 spray intranasal DAILY 03/11/21 06/10/25 %) nasal spray benralizumab 30 mg/mL subcutaneous 30 mg subcut Q8W 10/06/22 06/10/25 syringe (Fasenra) nebulizers 03/09/23 06/10/25 epinephrine 0.3 mg/0.3 mL 0.3 mg IM Q5M PRN anaphylaxis 04/15/24 06/10/25 injection, auto-injector pyridostigmine bromide 60 mg tablet 60 mg PO QID 08/18/24 06/10/25 tiotropium bromide 1.25 2 puff inhalation DAILY 08/18/24 06/10/25 mcg/actuation mist for inhalation (Spiriva Respimat) fluticasone propionate 220 inhalation 02/10/25 06/10/25 mcg/actuation HFA aerosol inhaler azelastine 137 mcg (0.1 %) nasal intranasal 02/17/25 06/10/25 spray clotrimazole 10 mg jacinta 10 mg PO 03/24/25 06/10/25 Previous Rx's ?Medication ?Instructions ?Recorded blood pressure monitor #1 ea 01/21/23 DIABETIC SHOES #1 ea 11/29/23 losartan 25 mg tablet 25 mg PO BEDTIME 90 days #90 tabs 07/26/24 fluconazole 100 mg tablet 100 mg PO DAILY 14 days #14 tabs 10/28/24 walker #1 ea 01/21/25 lancets 28 gauge (FreeStyle #150 ea 02/04/25 Lancets) lactulose 10 gram/15 mL oral 10 g (15 mL) PO DAILY PRN 02/17/25 solution constipation #3,785 mL lidocaine 5 % topical patch 1 patch topical DAILY 30 days #30 02/27/25 (Lidoderm) ea aspirin 81 mg tablet,delayed 81 mg PO DAILY #90 tabs 03/13/25 release nystatin 100,000 unit/gram topical 1 appl topical BID PRN rash #60 03/16/25 powder (Nystop) grams blood sugar diagnostic (FreeStyle #150 ea 03/20/25 Lite Strips) ferrous sulfate 325 mg (65 mg 325 mg PO DAILY #90 tabs 04/10/25 iron) tablet (FeroSul) calcium citrate 250 mg PO BID #180 tabs 04/11/25 carvedilol 6.25 mg tablet 6.25 mg PO DAILY for blood 04/11/25 pressure #270 tabs cholecalciferol (vitamin D3) 50 100 mcg (2 x 50 mcg (2,000 unit)) 04/11/25 mcg (2,000 unit) capsule PO BEDTIME #90 caps Synthroid 112 mcg tablet 224 mcg (2 x 112 mcg) PO DAILY #60 05/07/25 (levothyroxine) tabs ondansetron 8 mg disintegrating 8 mg PO Q8H PRN nausea and 05/14/25 tablet vomiting 10 days #30 tabs loratadine 10 mg tablet 10 mg PO DAILY #90 tabs 05/19/25 pen needle, diabetic 32 gauge x #200 ea 05/20/25 atorvastatin 40 mg tablet 40 mg PO BEDTIME #90 tabs 06/02/25 levalbuterol tartrate 45 2 puff inhalation Q6H PRN 06/02/25 mcg/actuation aerosol inhaler shortness of breath or wheezing 30 (Xopenex HFA) days #15 grams montelukast 10 mg tablet 10 mg PO BEDTIME 90 days #90 tabs 06/02/25 omeprazole 40 mg capsule,delayed 40 mg PO BID gastritis #180 caps 06/02/25 release tizanidine 2 mg tablet 4 mg (2 x 2 mg) PO BEDTIME PRN for 06/02/25 muscle spasm 30 days #60 tabs hydromorphone 2 mg tablet 2 mg PO TID-QID PRN pain 7 days 06/09/25 #25 tabs Lantus Solostar U-100 Insulin 100 25 unit (0.25 mL) subcut QPM 30 06/10/25 unit/mL (3 mL) subcutaneous pen days #7.5 mL (insulin glargine) blood-glucose meter (FreeStyle #1 ea 06/10/25 Lite Meter kit) insulin aspart See Rx Instructions subcut TIDAC 06/10/25 (niacinamide)(U-100) 100 unit/mL(3 #150 mL mL) subcutaneous pen (Fiasp FlexTouch U-100 Insulin) Allergies Allergy/AdvReac Type Severity Reaction Status Date / Time cephalexin Allergy Severe Difficulty Verified 06/10/25 22:40 Breathing latex (LATEX) Allergy Severe Difficulty Verified 06/10/25 22:40 Breathing levofloxacin (From LEVAQUIN) Allergy Severe SHORTNESS Verified 06/10/25 22:40 OF BREATH, RASH, rash morphine (MORPHINE) Allergy Severe RASH, Verified 06/10/25 22:40 asthma exacerbation, rash baclofen (BACLOFEN) Allergy Intermediate Rash Verified 06/10/25 22:40 celecoxib (Celebrex) Allergy Intermediate itching, Verified 06/10/25 22:40 rash, flushing prednisone (PREDNISONE) Allergy Intermediate RASH, Verified 06/10/25 22:40 asthma exacerbation, rash codeine Allergy Unknown Rash Verified 06/10/25 22:40 gluten (GLUTEN) Allergy Unknown UNKNOWN Verified 06/10/25 22:40 oxycodone Allergy Unknown rash Verified 06/10/25 22:40 ranitidine Allergy Unknown unknown Verified 06/10/25 22:40 roflumilast (Daliresp) Allergy Unknown rash Verified 06/10/25 22:40 tramadol (TRAMADOL) Allergy Unknown RASH,SHORTNESS Verified 06/10/25 22:40 OF BREATH AND HEADACHE, asthma exacerbation, rash celery Allergy Rash Verified 06/10/25 22:40 cyclobenzaprine (From Allergy Rash and Verified 06/10/25 22:40 Flexeril) asthma exacerbation environmental allergies Allergy Cleaning Verified 06/10/25 22:40 products cause asthma attack pineapple Allergy Rash Verified 06/10/25 22:40 strawberry Allergy Rash Verified 06/10/25 22:40 sulfamethoxazole (From AdvReac Intermediate vertigo Verified 06/10/25 22:40 Bactrim) trimethoprim (From Bactrim) AdvReac Intermediate vertigo Verified 06/10/25 22:40 diazepam (From Valium) AdvReac Cough Verified 06/10/25 22:40 Review of Systems Review of Systems: As per HPI, full review of systems performed and negative but for the above mentioned pertinent positives and negatives. [facility] Past Medical History Medical History Acute kidney injury (nontraumatic) Back pain Renal insufficiency Obesity (BMI 30-39.9) Mitochondrial myopathy Diabetes mellitus Portal hypertensive gastropathy Esophageal varices determined by endoscopy Portal hypertension HTN (hypertension) Anemia Chronic restrictive lung disease Brugada syndrome Shortness of breath Encounter for care related to Port-a-Cath Tinea pedis Recurrent cellulitis of lower extremity CHARLES (obstructive sleep apnea) Hypogammaglobulinemia Cellulitis of both lower extremities Right hip pain Lumbar degenerative disc disease Benign essential hypertension Asthma Acquired hypothyroidism Pure hypercholesterolemia Hx of cataract Osteopenia Osteoarthritis of hip Gastritis Surgical History History of revision of total replacement of right hip joint (~12/2019) Hx of hand surgery History of removal of Port-a-Cath History of total right hip arthroplasty (~06/03/19) History of eye surgery (~09/2017) History of hip surgery Hx of foot surgery (~01/02/19) History of removal of cyst Hx of left knee surgery History of elbow surgery (~07/2016) Hx of thumb surgery Hx of appendectomy Hx of hysterectomy (~07/2011) Hx of bilateral breast reduction surgery Family History Family History Father Leukemia Mother Hypertension Diabetes Sister Alive and well Brother Pancreatic cancer Paternal Grandmother Stomach cancer Paternal Grandmother Throat cancer Social History Social History Household Members: Family Housing: Apartment Do you presently have visiting nurse or other home services: No Alcohol intake: never Comment: refused bed alarm Patient Tobacco Use Status: Never used Tobacco Smoked in Last 30 Days: No e-Cigarette/Vaping Use: Never Used Second Hand Smoke Exposure: No Use of substances other than those prescribed or required for medical reasons: No Advance Directives: Yes Advance Directives on File: Yes Advance Directives Date on File: 10/02/23 Do you have a plan to hurt others: No Plan Patient : No service: No Current occupational status: disabled Current occupation: rt handed Cognitive needs: No Hearing needs: No Vision needs: No Physical Exam Exam: Exam: GENERAL: Anxious, tearful. SKIN: Normal skin color for ethnicity, warm, dry, intact, no rashes noted. HEENT: Normocephalic, atraumatic, no stridor, posterior oropharynx nonerythematous, dentition intact, EOMI. NECK: Soft, supple, full ROM, midline structures nontender, no step-offs, no deformities, no lymphadenopathy. CHEST: Heart regular tachycardia, no murmurs, symmetric chest rise and fall, no crepitus. PULMONARY: Clear to auscultation bilaterally, slight tachypnea, no wheezes/rhales/ rhonchi. ABDOMINAL: Soft, nondistended, diffusely tender to palpation with voluntary guarding, positive bowel sounds in all quadrants. : Deferred. MUSCULOSKELETAL: Normal tone, full range of motion, no deformities, no peripheral edema. NEURO: Alert and oriented x3, CN II through XII intact, equal strength and sensation bilateral upper and lower extremities, no focal neurologic deficits. PSYCHIATRIC: Anxious affect, tearful, fluid speech, good eye contact and appropriate demeanor. Vital Signs: Vital Signs: Last Vital Signs Temp 99.1 F 06/11/25 03:03 Pulse 102 H 06/11/25 03:03 Resp 20 06/11/25 03:03 BP 114/62 06/11/25 03:03 Pulse Ox 96 06/11/25 03:03 O2 Del Method Nasal Cannula 06/11/25 03:03 O2 Flow Rate 2 06/11/25 03:03 BMI result Body Mass Index 38.6 Medications Administered Discontinued Medications Generic Name Dose Route Start Last Admin Trade Name Joey PRN Reason Stop Dose Admin Diazepam 2.5 mg 06/10/25 22:53 06/11/25 00:44 Diazepam 10 Mg/2 Ml Cartridge IVPUSH 06/10/25 22:54 2.5 mg STAT STA Administration Famotidine 20 mg 06/10/25 23:42 06/11/25 00:44 Famotidine/Pf 20 Mg/2 Ml Vial IVPUSH 06/10/25 23:43 20 mg ONCE ONE Administration Hydromorphone HCl 1 mg 06/11/25 01:38 06/11/25 01:48 Hydromorphone Hcl 1 Mg/Ml Syringe IVPUSH 06/11/25 01:39 1 mg ONCE ONE Administration Protocol Magnesium Sulfate 2 gm in 50 mls @ 150 mls/hr 06/10/25 22:53 06/11/25 01:04 Magnesium Sulfate/H2o IV 06/10/25 23:12 Infused ONCE ONE Infusion Acetaminophen 1,000 mg in 100 mls @ 400 mls/hr 06/11/25 01:04 06/11/25 02:04 Ofirmev IV 06/11/25 01:18 Infused ONCE ONE Infusion Iohexol 65 ml 06/11/25 02:22 06/11/25 02:27 Iohexol 350 Mg/Ml 100 Ml Infus..Btl IV 06/11/25 02:23 65 ml ONCE ONE Administration Medical Decision Making Medical Decision Making [facility] Narrative: Patient presents today with chief complaint of shortness of breath. Differential diagnosis includes, but is not limited to, upper respiratory infection, pneumonia, COPD exacerbation, asthma exacerbation, CHF, pneumothorax, pleural effusion, pulmonary embolism, ACS. Broad-based work-up will be initiated to evaluate for etiology of patient's symptoms. Patient found to be COVID-19 positive. She remains tachycardic and hypoxic down to 87% on room air with a clear chest x-ray. We will add on a CTA to rule out PE. We will admit to hospitalist for further care and evaluation. Differential Diagnosis Differential Diagnoses: The differential diagnosis associated with the presentation includes (As above) Admission/Observation Consideration of admission/observation: Escalation of care including admission/observation considered Consult Healthcare Provider Management of the patient was discussed with: Hospitalist Lab Data [facility] Lab Attestation statement: I reviewed the patient's lab results. 06/10/25 23:00 06/10/25 23:00 Labs: Lab Results 06/10/25 Range/Units 23:00 WBC 7.8 (4.8-10.8) X10*3/uL RBC 4.49 (4.20-5.50) X10*6/uL Hgb 12.5 (12.0-16.0) g/dl Hct 36.8 L (37.0-47.0) % MCV 82.0 (80.0-98.0) fL MCH 27.8 (27.0-33.0) pg MCHC 34.0 (31.0-35.0) g/dl RDW 14.4 (11.0-16.0) % Plt Count 89 L (160-400) X10*3/uL MPV 11.2 (9.4-12.3) fL Immature Gran % (Auto) 0.3 (0.0-0.4) % Neut % (Auto) 85.7 H (45-73) % Lymph % (Auto) 6.7 L (20-40) % Henry % (Auto) 7.2 (2-11) % Eos % (Auto) 0.0 (0-4) % Baso % (Auto) 0.1 (0-2) % Lymph # (Auto) 0.5 L (1.2-4.9) X10*3/uL Henry # (Auto) 0.6 (0.1-1.2) X10*3/uL Eos # (Auto) 0.0 (0.0-0.4) X10*3/uL Baso # (Auto) 0.0 (0.0-0.2) X10*3/uL Abs Immat Gran (auto) 0.02 (0.00-0.03) X10*3/uL Absolute Neuts (auto) 6.7 (2.0-8.3) x10*3/uL Absolute Nucleated RBC 0.000 (0.0-0.012) X10*3/uL Nucleated RBC % (auto) 0.0 (0.0-0.2) /100WBC PT 12.3 (10.9-12.4) SEC INR 1.1 (0.9-1.1) Sodium 139 (135-145) mmol/L Potassium 3.7 (3.3-5.1) mmol/L Chloride 104 (96-108) mmol/L Carbon Dioxide 23 (22-29) mmol/L Anion Gap 16 (12-20) BUN 15 (9-16) mg/dL Creatinine 0.96 (0.5-1.4) mg/dL Estim Creat Clear Calc 76.9 Estimated GFR > 60 Random Glucose 148 H (60-115) mg/dL Lactic Acid 1.5 (0.5-2.0) mmol/L Calcium 9.3 (8.4-10.2) mg/dL Magnesium 2.0 (1.6-2.6) mg/dL Total Bilirubin 2.1 H (0.0-1.0) mg/dL AST 51 H (5-31) U/L ALT 65 H (0-31) U/L Alkaline Phosphatase 94 (39-117) U/L Troponin I High Sens 3.0 (<3.5-17.0) ng/L B-Natriuretic Peptide 51 (<100) pg/mL Total Protein 7.1 (6.5-8.0) g/dL Albumin 4.5 (3.5-5.0) g/dL COVID-19 (OJDY) Positive A (Negative) COVID-19 Clin Com See Note Influenza Type A (FESTUS) Negative (Negative) Influenza Type A (PCR) NEGATIVE (Negative) Influenza Type B (FESTUS) Negative (Negative) Influenza Type B (PCR) NEGATIVE (Negative) Influenza A & B Note See Note RSV RNA Qual (PCR) NEGATIVE (Negative) SARS-CoV-2 RNA (RT-PCR) POSITIVE A (Negative) Radiology Impression Discussion of test interpretation with radiology: I have reviewed the radiologist's reading. Radiologist Impression: Negative PE study External Record Review External record reviewed: Inpatient record and Outpatient record Chronic Conditions Patient?s care impacted by: Diabetes, Hypertension and Other (asthma) Discharge Plan Discharge Clinical Impression: Acute hypoxic respiratory failure, COVID-19 virus infection Prescriptions: No Action (DME) blood pressure monitor Kit See Rx Instructions .Route Qty: 1 0RF Rx Instructions: As directed losartan 25 mg tablet 25 mg PO BEDTIME 90 Days Qty: 90 3RF aspirin 81 mg tablet,delayed release (DR/EC) 81 mg PO DAILY Qty: 90 3RF nystatin [Nystop] 100,000 unit/gram powder 1 appl topical BID PRN (Reason: rash) Qty: 60 3RF (DME) FreeStyle Lite Strips Strip See Rx Instructions .Route Qty: 150 11RF Rx Instructions: As directed- checks 4-5 X/day ferrous sulfate [FeroSul] 325 mg (65 mg iron) tablet 325 mg PO DAILY Qty: 90 1RF carvedilol 6.25 mg tablet 6.25 mg PO DAILY Qty: 270 0RF calcium citrate 250 mg calcium tablet 250 mg PO BID Qty: 180 0RF cholecalciferol (vitamin D3) 50 mcg (2,000 unit) capsule 100 mcg PO BEDTIME Qty: 90 3RF levothyroxine [Synthroid] 112 mcg tablet 224 mcg PO DAILY Qty: 60 1RF ondansetron 8 mg tablet,disintegrating 8 mg PO Q8H PRN (Reason: nausea and vomiting) 10 Days Qty: 30 1RF loratadine 10 mg tablet 10 mg PO DAILY Qty: 90 0RF (DME) pen needle, diabetic 32 gauge x 5/32 needle See Rx Instructions .ROUTE .COMPLEX Qty: 200 5RF Dose Instruction: USE TO INJECT FOUR TIMES DAILY DIRECTED Rx Instructions: USE TO INJECT FOUR TIMES DAILY DIRECTED levalbuterol tartrate [Xopenex HFA] 45 mcg/actuation HFA aerosol inhaler 2 puff inhalation Q6H PRN (Reason: shortness of breath or wheezing) 30 Days Qty: 15 11RF atorvastatin 40 mg tablet 40 mg PO BEDTIME Qty: 90 1RF montelukast 10 mg tablet 10 mg PO BEDTIME 90 Days Qty: 90 3RF omeprazole 40 mg capsule,delayed release(DR/EC) 40 mg PO BID Qty: 180 0RF tizanidine 2 mg tablet 4 mg PO BEDTIME PRN (Reason: for muscle spasm) 30 Days Qty: 60 0RF pyridostigmine bromide 60 mg tablet 60 mg PO QID Spiriva Respimat 1.25 mcg/actuation mist 2 puff INHALATION DAILY (DME) DIABETIC SHOES See Rx Instructions .Route .MEDSUPPLY Qty: 1 0RF Rx Instructions: DIABETIC SHOES - 1 PAIR - use as directed -- Dx: E11.9 -- diabetes mellitus Fasenra 30 mg/mL syringe 30 mg subcut Q8W ipratropium bromide 42 mcg (0.06 %) spray,non-aerosol 2 spray intranasal DAILY (DME) nebulizers [facility] See Rx Instructions .Route Rx Instructions: As directed epinephrine 0.3 mg/0.3 mL auto-injector 0.3 mg IM Q5M PRN (Reason: anaphylaxis) lidocaine [Lidoderm] 5 % adhesive patch,medicated 1 patch topical DAILY 30 Days Qty: 30 4RF Rx Instructions: leave on most painful area for up to 12 hrs (DME) lancets [FreeStyle Lancets] [facility] See Rx Instructions .MEDSUPPLY Qty: 150 4RF Rx Instructions: 4 times a day hydromorphone 2 mg tablet 2 mg PO TID-QID PRN (Reason: pain) 7 Days Qty: 25 0RF Rx Instructions: Partial Fill upon patient request. Covering for Dr. Strong fluconazole 100 mg tablet 100 mg PO DAILY 14 Days Qty: 14 2RF azelastine 137 mcg (0.1 %) spray,non-aerosol intranasal lactulose 10 gram/15 mL solution 10 g PO DAILY PRN (Reason: constipation) Qty: 3785 1RF (DME) walker [facility] See Rx Instructions .Route Qty: 1 0RF Rx Instructions: walker with wheels and seat fluticasone propionate 220 mcg/actuation HFA aerosol inhaler inhalation clotrimazole 10 mg jacinta 10 mg PO (DME) blood-glucose meter [FreeStyle Lite Meter] Kit See Rx Instructions .Route Qty: 1 0RF Rx Instructions: As directed to check sugars 4 times a day Fiasp FlexTouch U-100 Insulin 100 unit/mL (3 mL) insulin pen See Rx Instructions subcut TIDAC Qty: 150 4RF Rx Instructions: subcutaneously 3 times a day before meals; Fiasp 80-150 18 units 151-200 20 units 201-250 22 units 251-250 24 units over 300 26 units tid with meals with maximum 78 units per day insulin glargine [Lantus Solostar U-100 Insulin] 100 unit/mL (3 mL) insulin pen 25 unit subcut QPM 30 Days Qty: 7.5 6RF Print Language: Maltese
--- OUTSIDE RECORDS SUMMARY | 2025-06-10 22:59 | XMS_ITS | Clinical Summary ---
Author Organization [facility] it Address [address] [place] [address] Care Team Providers Care Customer Engagement Specialist Name Role Phone Cassius Strong MD Primary Care Provider Surgical History Surgery Date Site/Laterality Comments HYSTERECTOMY PROCEDURE: HISTORICAL HYSTERECTOMY FOOT SURGERY PROCEDURE: HISTORICAL FOOT SURGERY APPENDECTOMY PROCEDURE: HISTORICAL APPENDECTOMY Medical History Medical History Date Comments Brugada syndrome 08/01/2017 DX:Brugada synd adam Chronic obstructive pulmonar y disease ([facility] V24, [facility] V28) 07/07/2017 DX:Chronic obstructive pulm onary disease (HCC) Diabetes mellitus type 2, un complicated ([facility] V24, [facility] V28) 08/17/2017 DX:Diabetes mellitus type 2 , uncomplicated (HCC) GERD (gastroesophageal reflux disease) 08/17/2017 DX:GERD (gastroesophageal reflux disease) History of pancreatitis 11/10/2017 DX:Histo ry of pancreatitis Hyperlipidemia 08/17/2017 DX:Hyperlipidemi a Hypogammaglobulinemia ([facility] V24) 08/01/2017 DX:Hypogammaglobulinemia (HCC) Hypothyroidism 08/17/2017 DX:Hypothyroidis m 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[facility] V24, [facility] V28) 017 DX: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HCC) Obesity 05/05/2017 DX:Obesity Obstructive sleep apnea syndrome 08/01/2017 DX:Obstructive sleep apnea syndrome; COMMENT: BiPAP Osteoarthritis 08/17/2017 DX:Osteoarthriti s Port-A-Cath in place 11/10/2017 DX:Port-A-C ath in place RA (rheumatoid arthritis) ([place] V24, [facility] V28) 08/17/2017 DX:RA (rheumatoid arthritis) (HCC) Severe persistent asthma dep endent on systemic steroids ([facility]/HCC V28) 11/10/2017 DX:Severe persistent a sthma dependent [...] age to complete this topic Care Teams Customer Engagement Specialist Relationship Specialty Start Date End Date Cassius Strong MD [address] [place] [address] Dr [address] [facility]ST[facility] Al[facility] - General 04/15/11
--- OUTSIDE RECORDS SUMMARY | 2025-06-10 22:59 | XMS_ITS | Clinical Summary ---
Author Organization [facility] Address [address] [place] [phone] Phone Care Team Providers Care Delivery Person Name Role Phone Cassius Strong MD Primary Care Provider [phone] Allergies Active Allergy Reactions Criticality Noted Date [...] topic Medical Devices Not on file Insurance [facility] MEDICARE REPLACEMENT CJ [id number] [id number] [facility] MEDICARE REPLACEMENT CJ MEJIA [id number] [facility] MEDICARE REPLACEMENT [facility] MEDICARE REPLACEMENT [facility] MEDICARE REPLACEMENT [facility] MEDICARE REPLACEMENT [facility] MEDICARE REPLACEMENT [facility] MEDICARE REPLACEMENT [facility] [id number] Care Teams Delivery Person Relationship Specialty Start Date End Date Cassius Strong MD [address] [place] [address] PCP - General 08/03/17 Additional Source Comments The information contained in this document represents components of the legal health record. It is not the complete legal health record.[facility]
[2025-06-10 23:24] LABS: INTERNATIONAL NORM RATIO 1.1 (0.9-1.1); Prothrombin Time 12.3 SEC (10.9-12.4)
[2025-06-10 23:30] LABS: B Type Natriuretic Peptide 51 pg/mL (<100)
[2025-06-10 23:34] LABS: Hemoglobin 12.5 g/dl (12.0-16.0); Imm Gran Abs Auto 0.02 X10*3/uL (0.00-0.03); Imm Gran Pct Auto 0.3 % (0.0-0.4); NRBC Abs Auto 0.000 X10*3/uL (0.0-0.012); NRBC Pct Auto 0.0 /100WBC (0.0-0.2); PLT CLUMP 1; SCAN SMEAR FLAG 1
[2025-06-10 23:35] LABS: Alanine Aminotransferase 65 U/L (0-31); Albumin Level 4.5 g/dL (3.5-5.0); Alkaline Phosphatase 94 U/L (39-117); Anion Gap 16 (12-20); Aspartate Amino Transferase 51 U/L (5-31); Blood Urea Nitrogen 15 mg/dL (9-16); Calcium 9.3 mg/dL (8.4-10.2); Carbon Dioxide 23 mmol/L (22-29); Chloride 104 mmol/L (96-108); Creatinine Clr Calc Pharmacy 76.9; Estimated Glomerular Filt Rate > 60; Magnesium 2.0 mg/dL (1.6-2.6); Potassium 3.7 mmol/L (3.3-5.1); Sodium 139 mmol/L (135-145); Total Protein 7.1 g/dL (6.5-8.0)
[2025-06-10 23:36] LABS: Hematocrit 36.8 % (37.0-47.0); Lymphocytes Absolute Auto 0.5 X10*3/uL (1.2-4.9); Mean Corpuscular HGB Conc 34.0 g/dl (31.0-35.0); Mean Corpuscular Hemoglobin 27.8 pg (27.0-33.0); Mean Corpuscular Volume 82.0 fL (80.0-98.0); Red Blood Count 4.49 X10*6/uL (4.20-5.50)
[2025-06-10 23:39] LABS: Platelet Count 89 X10*3/uL (160-400); Troponin-I High Sensitivity 3.0 ng/L (<3.5-17.0); White Blood Count 7.8 X10*3/uL (4.8-10.8)
[2025-06-10 23:43] LABS: MANUAL DIFF FLAG NO
[2025-06-10 23:46] LABS: Resp Syncy Virus RNA Qual PCR NEGATIVE (Negative); SARS COV2 PCR INHOUSE POSITIVE (Negative)
--- NOTE | 2025-06-10 23:55 | PC.NURSE ---
Delay in med administration due to multiple failed attempts at obtaining IV access. MLP provider will try an u/s guided line.
[2025-06-11] VITALS (10 sets, daily range): BP systolic 114–152; BP diastolic 62–92; PULSE 76–118; RESP 17–20; TEMP 36.2–37.9; O2SAT 87–99; BMI 38.7
[2025-06-11 00:14] LABS: IDNOW Serial# 08D9AD1C; Influenza B2 Negative (Negative)
[2025-06-11] MEDS: Magnesium Sulfate/H2O 2 GM/50 ML PIGGYBACK IV (00:44)
[2025-06-11] MEDS: diazePAM 10 MG/2 ML CARTRIDGE 2.5 MG IVPUSH (00:44)
[2025-06-11 01:24] LABS: COVID-19 Test Positive (Negative); IDNOW Serial# 6674DD1D
--- NOTE | 2025-06-11 02:00 | PC.NURSE ---
O2 sat dropped to 87% RA. Placed on 2L NC. made aware.
[2025-06-11] MEDS: iohexoL 350 MG/ML 100 ML INFUS..BTL 65 ML IV (02:27)
--- NOTE | 2025-06-11 04:29 | PC.NURSE ---
Took over care from DAYANA Tim at 23:00, pt sleeping , no sign of distress at this time. Covid precaution in place.
--- NOTE | 2025-06-11 05:29 | P.HPHOSP_ITS ---
History of Present Illness Date of Service: 06/11/25 Attending physician on admission: Micheal Nichole Chief Complaint: chest tight , SOB Pt is a 54 yo f with a pmhx significant for T1DM, moderate persistent asthma, esophageal varices/portal HTN/gastropathy ?not cirrhosis, Brugada syndrome, CHARLES on O2 for sleep, CKD3, mitochondrial myopathy, HTN, HLD, and chronic back pain, who presented to the ED due to SOB, chest tightness, weakness, fevers and nausea starting yesterday. she has had a fever up to 101.8. no urinary sx or abd pain. no recent sick contacts. uses O2 at baseline only at night for CHARLES. Review of Systems 2 Constitutional: Constitutional: Reports fatigue, Reports fever(s) and Reports headache(s) Eyes: Eyes: Denies change in vision ENT: Reports headache(s), Denies nasal congestion and Denies sore throat Cardiovascular: Cardiovascular: Denies chest pain, Denies rapid heart rate, Denies leg edema, Denies lightheadedness and Reports dyspnea Respiratory: Respiratory: Denies chest congestion, Denies cough, Reports dyspnea and Denies wheezing Gastrointestinal: Gastrointestinal: Denies abdominal pain, Denies diarrhea and Reports nausea Genitourinary: Genitourinary: Denies difficulty voiding, Denies dysuria and Denies urinary urgency Musculoskeletal: Musculoskeletal: Denies myalgias Integumentary/Breasts: Skin/Breast: Denies rash Neurologic: Denies confusion and Reports headache(s) Psychiatric: Psychiatric: Denies confusion Endocrine: Endocrine: Reports fatigue Hematologic/Lymphatic: Hematologic/Lymphatic: Denies easy bleeding and Denies easy bruising Allergic/Immunologic: Allergic/Immunologic: Denies wheezing [facility] Medical History Acute kidney injury (nontraumatic) Back pain Renal insufficiency Obesity (BMI 30-39.9) Mitochondrial myopathy Diabetes mellitus Portal hypertensive gastropathy Esophageal varices determined by endoscopy Portal hypertension HTN (hypertension) Anemia Chronic restrictive lung disease Brugada syndrome Shortness of breath Encounter for care related to Port-a-Cath Tinea pedis Recurrent cellulitis of lower extremity CHARLES (obstructive sleep apnea) Hypogammaglobulinemia Cellulitis of both lower extremities Right hip pain Lumbar degenerative disc disease Benign essential hypertension Asthma Acquired hypothyroidism Pure hypercholesterolemia Hx of cataract Osteopenia Osteoarthritis of hip Gastritis Family History Father Leukemia Mother Hypertension Diabetes Sister Alive and well Brother Pancreatic cancer Paternal Grandmother Stomach cancer Paternal Grandmother Throat cancer Surgical History History of revision of total replacement of right hip joint (~12/2019) Hx of hand surgery History of removal of Port-a-Cath History of total right hip arthroplasty (~06/03/19) History of eye surgery (~09/2017) History of hip surgery Hx of foot surgery (~01/02/19) History of removal of cyst Hx of left knee surgery History of elbow surgery (~07/2016) Hx of thumb surgery Hx of appendectomy Hx of hysterectomy (~07/2011) Hx of bilateral breast reduction surgery Social History Household Members: Family Housing: Apartment Do you presently have visiting nurse or other home services: No Alcohol intake: never Comment: refused bed alarm Patient Tobacco Use Status: Never used Tobacco Smoked in Last 30 Days: No e-Cigarette/Vaping Use: Never Used Second Hand Smoke Exposure: No Use of substances other than those prescribed or required for medical reasons: No Advance Directives: Yes Advance Directives on File: Yes Advance Directives Date on File: 10/02/23 Do you have a plan to hurt others: No Plan Patient : No service: No Current occupational status: disabled Current occupation: rt handed Cognitive needs: No Hearing needs: No Vision needs: No Meds Allergies Allergy/AdvReac Type Severity Reaction Status Date / Time cephalexin Allergy Severe Difficulty Verified 06/10/25 22:40 Breathing latex (LATEX) Allergy Severe Difficulty Verified 06/10/25 22:40 Breathing levofloxacin (From LEVAQUIN) Allergy Severe SHORTNESS Verified 06/10/25 22:40 OF BREATH, RASH, rash morphine (MORPHINE) Allergy Severe RASH, Verified 06/10/25 22:40 asthma exacerbation, rash baclofen (BACLOFEN) Allergy Intermediate Rash Verified 06/10/25 22:40 celecoxib (Celebrex) Allergy Intermediate itching, Verified 06/10/25 22:40 rash, flushing prednisone (PREDNISONE) Allergy Intermediate RASH, Verified 06/10/25 22:40 asthma exacerbation, rash codeine Allergy Unknown Rash Verified 06/10/25 22:40 gluten (GLUTEN) Allergy Unknown UNKNOWN Verified 06/10/25 22:40 oxycodone Allergy Unknown rash Verified 06/10/25 22:40 ranitidine Allergy Unknown unknown Verified 06/10/25 22:40 roflumilast (Daliresp) Allergy Unknown rash Verified 06/10/25 22:40 tramadol (TRAMADOL) Allergy Unknown RASH,SHORTNESS Verified 06/10/25 22:40 OF BREATH AND HEADACHE, asthma exacerbation, rash celery Allergy Rash Verified 06/10/25 22:40 cyclobenzaprine (From Allergy Rash and Verified 06/10/25 22:40 Flexeril) asthma exacerbation environmental allergies Allergy Cleaning Verified 06/10/25 22:40 products cause asthma attack pineapple Allergy Rash Verified 06/10/25 22:40 strawberry Allergy Rash Verified 06/10/25 22:40 sulfamethoxazole (From AdvReac Intermediate vertigo Verified 06/10/25 22:40 Bactrim) trimethoprim (From Bactrim) AdvReac Intermediate vertigo Verified 06/10/25 22:40 diazepam (From Valium) AdvReac Cough Verified 06/10/25 22:40 Active Medications: Current Medications Acetaminophen (Acetaminophen 325 Mg Tablet) 975 mg PO Q6H PRN PRN Reason: Pain, Mild 1-3,fever,headache Calcium Carbonate (Calcium Carbonate 750 Mg Tab.Chew) 750 mg PO Q4H PRN PRN Reason: Heartburn Levalbuterol HCl 1.25 mg/ (Ipratropium [place] 0.5 mg) 0 mg INHALE Q4H PRN PRN Reason: shortness of breath/chest tightness Dextrose (Dextrose 50 % 25 Gm/50 Ml Syringe) 25 gm IVPUSH Q15M PRN; Protocol PRN Reason: per Hypoglycemia Standing Ord. Enoxaparin Sodium (Enoxaparin Sodium 40 Mg/0.4 Ml Syringe) 40 mg SUBCUT Q24H FLORECITA Glucose (Glucose Gel 15 Gm Gel..Gram.) 15 gm PO Q15M PRN; Protocol PRN Reason: per Hypoglycemia Standing Ord. Insulin Human Lispro (Insulin Lispro 100 Unit/Ml 3 Ml Vial) 0 unit SUBCUT QIDACHS FLORECITA; Protocol Magnesium Hydroxide (Milk Of Magnesia 30 Ml Oral.Susp) 30 ml PO DAILY PRN PRN Reason: Constipation Melatonin (Melatonin 3 Mg Tablet) 6 mg PO BEDTIME PRN PRN Reason: Insomnia Ondansetron HCl (Ondansetron Hcl 4 Mg/2 Ml Vial) 4 mg IVPUSH Q8H PRN PRN Reason: Nausea and Vomiting Sodium Chloride (0.9 % Sodium Chloride Flush 3 Ml Syringe) 3 [facility] Medications ?Medication ?Instructions ?Recorded ?Confirmed ?Last Taken ?Type ipratropium bromide 42 mcg (0.06 2 spray intranasal DA HARSH 03/11/21 06/10/25 08/17/24 History %) nasal spray benralizumab 30 mg/mL subcutaneous 30 mg subcut Q8W 06/10/25 3 Weeks Ago History syringe (Fasenra) ~07/28/24 nebulizers 03/09/23 06/10/25 Unknown H istory epinephrine 0.3 mg/0.3 mL 0.3 mg IM Q5M PRN anaphylaxi s 04/15/24 06/10/25 Unknown History injection, auto-injector pyridostigmine bromide 60 mg tablet 60 mg PO QID 08/1806/10/25 08/17/24 History tiotropium bromide 1.25 2 puff inhalation DAILY 01/0606/10/25 08/17/24 History mcg/actuation mist for inhalation (Spiriva Respimat) fluticasone propionate 220 inhalation 02/10/25 5 Unknown History mcg/actuation HFA aerosol inhaler azelastine 137 mcg (0.1 %) nasal intranasal 02/17/25 0 06/10/25 Unknown History spray clotrimazole 10 mg jacinta 10 mg PO 03/24/25 06/10/25 U nknown History Physical Exam 2 Vital Signs and Narrative: Vital Signs: Last Vital Signs Temp 98.0 F 06/11/25 05:20 Pulse 95 06/11/25 05:20 Resp 20 06/11/25 05:20 BP 140/66 H 06/11/25 05:20 Pulse Ox 96 06/11/25 05:20 O2 Del Method Nasal Cannula 06/11/25 05:20 O2 Flow Rate 2 06/11/25 05:20 BMI result Body Mass Index 38.6 General: AOx3, no acute distress Resp: diminshed throughout, no wheezing or crackles CVS: S1, S2, RRR GI: +BS, NT, no distention Skin: Warm, dry Neuro: Cranial nerves II-XII grossly intact bilaterally. Motor grossly intact bilaterally Extremities: No pitting edema Psych: Appropriate affect Const: General: No confusion Orientation/consciousness: No confusion Neuro: General: No confusion Results Labs 06/10/25 23:00 06/10/25 23:00 Labs: Laboratory Results - last 24 hr 06/10/25 23:00 MCV 82.0 MCH 27.8 MCHC 34.0 RDW 14.4 Plt Count 89 L MPV 11.2 Immature Gran % (Auto) 0.3 Neut % (Auto) 85.7 H Lymph % (Auto) 6.7 L [place] % (Auto) 7.2 Eos % (Auto) 0.0 Baso % (Auto) 0.1 Lymph # (Auto) 0.5 L [place] # (Auto) 0.6 Eos # (Auto) 0.0 Baso # (Auto) 0.0 Abs Immat Gran (auto) 0.02 Absolute Neuts (auto) 6.7 Absolute Nucleated RBC 0.000 Nucleated RBC % (auto) 0.0 PT 12.3 INR 1.1 Anion Gap 16 Estim Creat Clear Calc 76.9 Estimated GFR > 60 Random Glucose 148 H Lactic Acid 1.5 Calcium 9.3 Magnesium 2.0 Total Bilirubin 2.1 H AST 51 H ALT 65 H Alkaline Phosphatase 94 B-Natriuretic Peptide 51 Total Protein 7.1 Albumin 4.5 COVID-19 (JODY) Positive A COVID-19 Clin Com See Note Influenza Type A (FESTUS) Negative Influenza Type A (PCR) NEGATIVE Influenza Type B (FESTUS) Negative Influenza Type B (PCR) NEGATIVE Influenza A & B Note See Note RSV RNA Qual (PCR) NEGATIVE SARS-CoV-2 RNA (RT-PCR) POSITIVE A Assessment and Plan (1) Acute hypoxic respiratory failure: Status: Acute (2) Severe sepsis: Status: Acute (3) Viral sepsis: Status: Acute (4) COVID-19 virus infection: Status: Acute (5) Class 3 obesity: Status: Acute (6) CKD (chronic kidney disease) stage 3, GFR 30-59 ml/min: Status: Acute Plan Pt is a 54 yo f with a pmhx significant for T1DM, moderate persistent asthma, esophageal varices/portal HTN/gastropathy ?not cirrhosis, Brugada syndrome, CHARLES on O2 for sleep, CKD3, mitochondrial myopathy, HTN, HLD, and chronic back pain, who presented to the ED due to SOB, chest tightness, weakness, fevers and nausea starting yesterday. acute hypoxic respiratory failure and severe viral sepsis secondary to COVID - no leukocytosis, tacycardic, tachypneic, febrile, lactic acid normal, blood cultures x2 pending - LFTs elevated, t bili 2.1 - COVID+ - CXR Increased right hilar fullness compared to prior imaging. Possible lymphadenopathy. - CTA negative for PE - levalbuterol/ipratripium Q4H PRN - did not receive fluid bolus as BP is stable and lactic acid normal, concern for fluid overload if given - titrate off O2 as tolerated - monitor CBC and BMP T1DM - sliding scale insulin - lantus 22U QHS - diabetic diet/GF moderate persistent asthma, no acute exacerbation - breathing treatments as above - continue home meds Brugada syndrome - seen on EKG, known, followed by Dr Wright CHARLES - O2 via NC at night CKD3 - cr at baseline - avoid nephrotoxins mitochondrial myopathy - on mestinon 60mg QID and gammagard infusions Q3W - followed by Dr Samuels HTN - continue home meds HLD - continue home meds chronic back pain - continue home meds class 3 obesity - BMI 38.6 - weight loss encouraged med rec pending full code VTE prophy: lovenox Pt with acute hyposic respiratory failure and severe viral sepsis secondary to COVID, requiring admission for at least 2 midnights stay for titration of O2 and monitoring. Quality Stroke Does the patient have a stroke diagnosis?: No VTE Prior VTE?: Yes VTE Risk Level:: Medical - moderate - high VTE Device Contraindication: Treatment Not Indicated VTE Drug Contraindication: N/A - Med Ordered
[2025-06-11 07:01] LABS: Glucose, Whole Blood 165 mg/dL (60-115)
[2025-06-11] MEDS: 0.9 % Sodium Chloride Flush 3 ML SYRINGE IVFLUSH ×3 (08:31→20:42)
--- NOTE | 2025-06-11 09:03 | MHC.CM.PN ---
IMM given 06/11. Pt self-care, lives at home with family who will transport her home at discharge. Pt has a bedside commode, a shower chair, and home O2. HCP on file and verified. PCP: Dr. Cassius Strong
--- NOTE | 2025-06-11 09:20 | PHA.MEDREC ---
Addendum entered by Arsalan Leon, PharmD 06/11/25 09:56: med rec checked by [facility] Original Note: Pharmacy Consult ? Medication Reconciliation Pharmacy has completed the medication reconciliation. Patient was able to confirm med list. Patient states she in no longer taking Azelastine 137 nasal spray, Fluticasone prop 220/HFA inhaler, and Xarelto 20 mg ( stopped over 2 months ago). Patient confirmed Fasenra 30 mg Subcut [id number], last dose was 2 weeks ago, Fiasp Is per sliding scale, Lantus Solostar 22 units at QPM. Patient states she has been taking her Synthroid 224 mg ( 2x 112 mg) at bedtime for over 13 years. patient had all her medications yesterday.
[2025-06-11 11:07] LABS: Glucose, Whole Blood 128 mg/dL (60-115)
--- NOTE | 2025-06-11 11:49 | PM.EVENT ---
Event Note Date of Service: 06/11/25 Event Note: Pt seen/examined, admitted this morning with chest tightness/sob and found to have covid. Had a single episode of or 87, probably error, all readings prior to that and after normal. Has since been taking off O2 and doing fine. She has been complaining of some abdominal pain, exam bening, this appear to be chronic, usually related to constipation. As far as covid, symptomatic management, hold of steroid for now. Bowel regimen for abd pain and if not improving image. Time Spent With Patient Time: Total time managing care of this patient today ____ minutes.
[2025-06-11 13:48] LABS: MANUAL DIFF FLAG NO
[2025-06-11 15:01] LABS: Hematocrit 37.4 % (37.0-47.0); Hemoglobin 12.4 g/dl (12.0-16.0); Imm Gran Abs Auto 0.02 X10*3/uL (0.00-0.03); Imm Gran Pct Auto 0.3 % (0.0-0.4); Lymphocytes Absolute Auto 0.7 X10*3/uL (1.2-4.9); Mean Corpuscular HGB Conc 33.2 g/dl (31.0-35.0); Mean Corpuscular Hemoglobin 27.8 pg (27.0-33.0); Mean Corpuscular Volume 83.9 fL (80.0-98.0); NRBC Abs Auto 0.000 X10*3/uL (0.0-0.012); NRBC Pct Auto 0.0 /100WBC (0.0-0.2); Platelet Count 73 X10*3/uL (160-400); Red Blood Count 4.46 X10*6/uL (4.20-5.50); White Blood Count 6.1 X10*3/uL (4.8-10.8)
[2025-06-11 15:33] LABS: Anion Gap 14 (12-20); Blood Urea Nitrogen 15 mg/dL (9-16); Calcium 8.9 mg/dL (8.4-10.2); Carbon Dioxide 23 mmol/L (22-29); Chloride 102 mmol/L (96-108); Creatinine Clr Calc Pharmacy 100.0; Estimated Glomerular Filt Rate > 60; Potassium 3.5 mmol/L (3.3-5.1); Sodium 135 mmol/L (135-145)
[2025-06-11 16:25] LABS: Glucose, Whole Blood 150 mg/dL (60-115)
[2025-06-11] MEDS: Aspirin Enteric Coated 81 MG TABLET.DR PO (17:13)
[2025-06-11 20:20] LABS: Glucose, Whole Blood 177 mg/dL (60-115)
[2025-06-11] MEDS: Insulin Glargine,Hum.rec.anlog 100 UNIT/ML 10 ML VIAL 22 UNIT SUBCUT (20:41)
[2025-06-11] MEDS: Calcium Oyster Shell Elemental 500 MG TABLET PO (20:41)
[2025-06-12] VITALS: BP 126/68; PULSE 72; RESP 16; TEMP 37.6; O2SAT 93
[2025-06-12 04:00] VITALS: BP 130/65; PULSE 70; RESP 16; TEMP 36.9; O2SAT 98
[2025-06-12 06:37] LABS: MANUAL DIFF FLAG NO
[2025-06-12 06:56] LABS: Anion Gap 13 (12-20); Blood Urea Nitrogen 14 mg/dL (9-16); Calcium 8.5 mg/dL (8.4-10.2); Carbon Dioxide 24 mmol/L (22-29); Chloride 101 mmol/L (96-108); Creatinine Clr Calc Pharmacy 91.3; Estimated Glomerular Filt Rate > 60; Potassium 3.2 mmol/L (3.3-5.1); Sodium 135 mmol/L (135-145)
[2025-06-12 07:07] LABS: Hematocrit 35.4 % (37.0-47.0); Hemoglobin 11.8 g/dl (12.0-16.0); Imm Gran Abs Auto 0.03 X10*3/uL (0.00-0.03); Imm Gran Pct Auto 0.4 % (0.0-0.4); Lymphocytes Absolute Auto 1.7 X10*3/uL (1.2-4.9); Mean Corpuscular HGB Conc 33.3 g/dl (31.0-35.0); Mean Corpuscular Hemoglobin 27.8 pg (27.0-33.0); Mean Corpuscular Volume 83.5 fL (80.0-98.0); NRBC Abs Auto 0.000 X10*3/uL (0.0-0.012); NRBC Pct Auto 0.0 /100WBC (0.0-0.2); Red Blood Count 4.24 X10*6/uL (4.20-5.50); White Blood Count 6.7 X10*3/uL (4.8-10.8)
[2025-06-12 07:14] LABS: Platelet Count 87 X10*3/uL (160-400)
[2025-06-12 07:34] LABS: Glucose, Whole Blood 249 mg/dL (60-115)
[2025-06-12] MEDS: Tiotropium Bromide 2.5 mcg 1 PUFF/2.5 MCG MIST.INHAL 2 PUFF INHALE (07:58)
[2025-06-12 08:00] VITALS: BP 130/72; PULSE 69; RESP 20; TEMP 36.3; O2SAT 93
[2025-06-12 08:01] VITALS: PULSE 70; RESP 16
[2025-06-12] MEDS: Calcium Oyster Shell Elemental 500 MG TABLET PO (08:15)
[2025-06-12] MEDS: Ferrous Sulfate 324 MG TABLET.DR PO (08:15)
[2025-06-12] MEDS: 0.9 % Sodium Chloride Flush 3 ML SYRINGE IVFLUSH (08:15)
[2025-06-12 11:55] LABS: Glucose, Whole Blood 149 mg/dL (60-115)
--- NOTE | 2025-06-12 14:14 | P.DS_ITS ---
DS: Providers Provider Date of Service: 06/12/25 Date of admission: 06/11/25 03:51 Date of discharge: 06/12/25 Primary care physician: Cassius Strong MD DS: Diagnosis Discharge Diagnosis (1) Acute hypoxic respiratory failure: Status: Acute (2) Severe sepsis: Status: Acute (3) Viral sepsis: Status: Acute (4) COVID-19 virus infection: Status: Acute (5) Class 3 obesity: Status: Acute (6) CKD (chronic kidney disease) stage 3, GFR 30-59 ml/min: Status: Acute DS: Summary Hospital Course Hospital Course: Chief Complaint: chest tight , SOB Pt is a 54 yo f with a pmhx significant for T1DM, moderate persistent asthma, esophageal varices/portal HTN/gastropathy ?not cirrhosis, Brugada syndrome, CHARLES on O2 for sleep, CKD3, mitochondrial myopathy, HTN, HLD, and chronic back pain, who presented to the ED due to SOB, chest tightness, weakness, fevers and nausea starting yesterday. she has had a fever up to 101.8. no urinary sx or abd pain. no recent sick contacts. uses O2 at baseline only at night for CHARLES. hospital course: Patient presented with shortness of breath, chest tightness. She had a CTA of the chest showing no acute PE or PNA, further testing revealed a covid infection. She had a single episode of O2 saturation of 87, probably error, as all readings prior to that and shortly after that have all been normal. She was on oxygen briefly and has continued to maintained normal oxygenation without supplemental oxygen and no respiratory distress as such she was not prescribed steroid or other form of covid treatment. She had some abdominal pain, exam being, this appear to be chronic, usually related to constipation. ACT of abdomen showed no acute finding and the pain has resolved. At this time she will be discharge home and advise to observe covid precautions including wearing mask in public until fully recovered. Time Attestation Discharge Coordination Time (in mins): 40 Quality: Safe Use of Opioids Does Pt have an Active Cancer Diagnosis on the Problem List?: No Quality: Stroke Does the patient have a stroke diagnosis?: No Physical Exam Vital Signs: Vital Signs: Last Vital Signs Temp 97.3 F 06/12/25 08:00 Pulse 70 06/12/25 08:01 Resp 16 06/12/25 08:01 BP 130/72 06/12/25 08:00 Pulse Ox 93 06/12/25 08:00 O2 Del Method Room Air 06/12/25 08:00 O2 Flow Rate 2 06/11/25 07:37 BMI result Body Mass Index 38.7 General: AO X 3, no acute distress Resp: CTA bilateral CVS: S1,S2,RRR GI: +BS, NT, no distention Skin: No rash Neuro: motor grossly intact Psych: appropriate affect DS: Data Data Completed and Pending Completed studies during hospitalization [Text1]: Procedures Control Bleeding in Gastrointestinal Tract, Via Natural or Artificial Opening Endoscopic (09/26/23) Excision of Ascending Colon, Via Natural or Artificial Opening Endoscopic, Diagnostic (11/19/23) Excision of Ileum, Via Natural or Artificial Opening Endoscopic, Diagnostic (11/19/23) Excision of Left Hand Tendon, Open Approach (08/17/24) Excision of Sigmoid Colon, Via Natural or Artificial Opening Endoscopic, Diagnostic (11/19/23) Excision of Stomach, Pylorus, Via Natural or Artificial Opening Endoscopic, Diagnostic (11/19/23) Introduction of Mineral-based Topical Hemostatic Agent into Upper GI, Via Natural or Artificial Opening Endoscopic, [employer] 6 (11/19/23) Introduction of Other Therapeutic Substance into Upper GI, Via Natural or Artificial Opening Endoscopic (09/26/23) Occlusion of Esophageal Vein with Extraluminal Device, Via Natural or Artificial Opening Endoscopic (11/19/23) Transfusion of Nonautologous Red Blood Cells into Peripheral Vein, Percutaneous Approach (09/26/23) Labs on day of discharge: Laboratory Results - last 24 hr 06/11/25 06/11/25 06/11/25 13:22 16:18 20:03 WBC 6.1 RBC 4.46 Hgb 12.4 Hct 37.4 MCV 83.9 MCH 27.8 MCHC 33.2 RDW 14.5 Plt Count 73 L MPV 11.5 Immature Gran % (Auto) 0.3 Neut % (Auto) 78.1 H Lymph % (Auto) 12.2 L [place] % (Auto) 9.4 Eos % (Auto) 0.0 Baso % (Auto) 0.0 Lymph # (Auto) 0.7 L [place] # (Auto) 0.6 Eos # (Auto) 0.0 Baso # (Auto) 0.0 Abs Immat Gran (auto) 0.02 Absolute Neuts (auto) 4.7 Absolute Nucleated RBC 0.000 Nucleated RBC % (auto) 0.0 Sodium 135 Potassium 3.5 Chloride 102 Carbon Dioxide 23 Anion Gap 14 BUN 15 Creatinine 0.74 Estim Creat Clear Calc 100.0 Estimated GFR > 60 POC Glucose 150 H 177 H Random Glucose 154 H Calcium 8.9 06/12/25 06/12/25 06/12/25 05:45 07:29 11:51 WBC 6.7 RBC 4.24 Hgb 11.8 L Hct 35.4 L MCV 83.5 MCH 27.8 MCHC 33.3 RDW 14.7 Plt Count 87 L MPV 11.1 Immature Gran % (Auto) 0.4 Neut % (Auto) 60.8 Lymph % (Auto) 25.4 [place] % (Auto) 13.4 H Eos % (Auto) 0.0 Baso % (Auto) 0.0 Lymph # (Auto) 1.7 [place] # (Auto) 0.9 Eos # (Auto) 0.0 Baso # (Auto) 0.0 Abs Immat Gran (auto) 0.03 Absolute Neuts (auto) 4.1 Absolute Nucleated RBC 0.000 Nucleated RBC % (auto) 0.0 Sodium 135 Potassium 3.2 L Chloride 101 Carbon Dioxide 24 Anion Gap 13 BUN 14 Creatinine 0.81 Estim Creat Clear Calc 91.3 Estimated GFR > 60 POC Glucose 249 H 149 H Random Glucose 113 Calcium 8.5 Preliminary micro results at discharge 06/10/25 23:00 Blood Culture - Preliminary Blood - Venous No growth after 24 hours. 06/11/25 00:24 Blood Culture - Preliminary Blood - Venous No growth after 24 hours. Discharge Plan Discharge Anticipated Discharge Date/Time: 06/12/25 14:06 Patient Disposition: Home, Self-Care Discharge Diagnosis: Covid 19 infection Referrals: Cassius Strong MD [Primary Care Provider, Internal Medicine] - 1 Week Discharge Medications: Continued (DME) blood pressure monitor Kit See Rx Instructions .Route Qty: 1 0RF Rx Instructions: As directed losartan 25 mg tablet 25 mg PO BEDTIME 90 Days Qty: 90 3RF aspirin 81 mg tablet,delayed release (DR/EC) 81 mg PO DAILY Qty: 90 3RF (DME) FreeStyle Lite Strips Strip See Rx Instructions .Route Qty: 150 11RF Rx Instructions: As directed- checks 4-5 X/day ferrous sulfate [FeroSul] 325 mg (65 mg iron) tablet 325 mg PO DAILY Qty: 90 1RF carvedilol 6.25 mg tablet 6.25 mg PO DAILY Qty: 270 0RF calcium citrate 250 mg calcium tablet 250 mg PO BID Qty: 180 0RF cholecalciferol (vitamin D3) 50 mcg (2,000 unit) capsule 100 mcg PO BEDTIME Qty: 90 3RF ondansetron 8 mg tablet,disintegrating 8 mg PO Q8H PRN (Reason: nausea and vomiting) 10 Days Qty: 30 1RF loratadine 10 mg tablet 10 mg PO DAILY Qty: 90 0RF (DME) pen needle, diabetic 32 gauge x / needle See Rx Instructions .ROUTE .COMPLEX Qty: 200 5RF Dose Instruction: USE TO INJECT FOUR TIMES DAILY DIRECTED Rx Instructions: USE TO INJECT FOUR TIMES DAILY DIRECTED levalbuterol tartrate [Xopenex HFA] 45 mcg/actuation HFA aerosol inhaler 2 puff inhalation Q6H PRN (Reason: shortness of breath or wheezing) 30 Days Qty: 15 11RF atorvastatin 40 mg tablet 40 mg PO BEDTIME Qty: 90 1RF montelukast 10 mg tablet 10 mg PO BEDTIME 90 Days Qty: 90 3RF tizanidine 2 mg tablet 4 mg PO BEDTIME PRN (Reason: for muscle spasm) 30 Days Qty: 60 0RF (DME) DIABETIC SHOES See Rx Instructions .Route .MEDSUPPLY Qty: 1 0RF Rx Instructions: DIABETIC SHOES - 1 PAIR - use as directed -- Dx: E11.9 -- diabetes mellitus nystatin [Klayesta] 100,000 unit/gram powder 1 appl topical BID insulin glargine [Lantus Solostar U-100 Insulin] 100 unit/mL (3 mL) insulin pen 22 unit subcut BEDTIME Spiriva Respimat 1.25 mcg/actuation mist 2 puff inhalation DAILY Fasenra 30 mg/mL syringe 30 mg SUBCUT Q8W omeprazole 40 mg capsule,delayed release(DR/EC) 40 mg PO BID@0630,1630 levothyroxine [Synthroid] 112 mcg tablet 224 mcg PO BEDTIME lidocaine [Lidoderm] 5 % adhesive patch,medicated 1 patch topical DAILY PRN (Reason: Pain) Rx Instructions: leave on most painful area for up to 12 hrs pyridostigmine bromide 60 mg tablet 60 mg PO QID ipratropium bromide 42 mcg (0.06 %) spray,non-aerosol 2 spray intranasal DAILY (DME) nebulizers [facility] See Rx Instructions .Route Rx Instructions: As directed epinephrine 0.3 mg/0.3 mL auto-injector 0.3 mg IM Q5M PRN (Reason: anaphylaxis) (DME) lancets [FreeStyle Lancets] 28 gauge [facility] See Rx Instructions .MEDSUPPLY Qty: 150 4RF Rx Instructions: 4 times a day hydromorphone 2 mg tablet 2 mg PO TID-QID PRN (Reason: pain) 7 Days Qty: 25 0RF Rx Instructions: Partial Fill upon patient request. Covering for Dr. Strong lactulose 10 gram/15 mL solution 10 g PO DAILY PRN (Reason: constipation) Qty: 3785 1RF (DME) walker [facility] See Rx Instructions .Route Qty: 1 0RF Rx Instructions: walker with wheels and seat clotrimazole 10 mg jacinta 10 mg PO 5XD PRN (Reason: thrush) (DME) blood-glucose meter [FreeStyle Lite Meter] Kit See Rx Instructions .Route Qty: 1 0RF Rx Instructions: As directed to check sugars 4 times a day Fiasp FlexTouch U-100 Insulin 100 unit/mL (3 mL) insulin pen See Rx Instructions subcut TIDAC Qty: 150 4RF Rx Instructions: subcutaneously 3 times a day before meals; Fiasp 80-150 18 units 151-200 20 units 201-250 22 units 251-250 24 units over 300 26 units tid with meals with maximum 78 units per day Discharge Orders: Discharge Order (Routine); Ordered 06/12/25 Ordered By: Rangel Guerrero Diet: Advance to usual diet Activity on Discharge: As tolerated Stand Alone Forms: Patient Portal Discharge page Print Language: Georgian Care Plan Goals: recovery from covid 19 Health Concerns: covid 19 abdominal pain, resolved Plan of Treatment: rest, use mask in public for at least a week or if coughing Assessment: see above.l
--- NOTE | 2025-06-12 14:38 | MHC.CM.PN ---
PT MEDICALLY CLEARED FOR DC HOME SELF-CARE, FAMILY FOR TRANSPORT.
== END 2025-06-12 15:44 | disposition home or self-care (01) | DRG 871 ==
LOC: HO.ED 22:56 → HO.EDOVER 06-11 04:06 → HO.IMC 06-11 05:07
PROVIDERS: Hospitalist; Admitting Provider Physician Assistant; Emergency Provider Emergency Medicine; PCP Internal Medicine; Visit Provider Internal Medicine
DX: A41.89 Other specified sepsis (principal); J96.01 Acute respiratory failure with hypoxia; U07.1 COVID-19; G47.33 Obstructive sleep apnea (adult) (pediatric); I49.8 Other specified cardiac arrhythmias; E78.5 Hyperlipidemia, unspecified; M54.9 Dorsalgia, unspecified; G89.29 Other chronic pain; E10.22 Type 1 diabetes mellitus with diabetic chronic kidney disease; E66.813 Obesity, class 3; Z71.3 Dietary counseling and surveillance; Z68.38 Body mass index [BMI] 38.0-38.9, adult; J45.40 Moderate persistent asthma, uncomplicated; R65.20 Severe sepsis without septic shock; Z79.4 Long term (current) use of insulin; Z79.82 Long term (current) use of aspirin; Z79.890 Hormone replacement therapy; Z79.899 Other long term (current) drug therapy
CPT/HCPCS: 36415; 71045; 71275; 74176; 80048; 80053; 82947; 83605; 83735; 83880; 84484; 85025; 85610; 87040; 87502; 87635; 87637; 93005; 94640; 99285; J0131; J1171; J1308; J1650; J2405; J3360; J3475; Q9967

== ENCOUNTER → 2025-06-10 22:35 | Outpatient (BNV) | payer OTHER, SELFPAY | PROVIDERS: Admitting Provider Physician Assistant; Emergency Provider Emergency Medicine; PCP Internal Medicine; Visit Provider Internal Medicine | DX: R00.0 Tachycardia, unspecified (principal) | CPT/HCPCS: 93010 ==

== ENCOUNTER → 2025-06-10 22:53 | Outpatient (BNV) | payer OTHER, SELFPAY | PROVIDERS: Emergency Provider Emergency Medicine; PCP Internal Medicine; Visit Provider Student in an Organized Health Care Education/Training Program | DX: R06.00 Dyspnea, unspecified (principal); R50.9 Fever, unspecified | CPT/HCPCS: 71045 ==

== ENCOUNTER → 2025-06-11 01:04 | Outpatient (BNV) | payer OTHER, SELFPAY | PROVIDERS: Emergency Provider Emergency Medicine; PCP Internal Medicine; Visit Provider Student in an Organized Health Care Education/Training Program | DX: R09.02 Hypoxemia (principal); R00.0 Tachycardia, unspecified; K42.9 Umbilical hernia without obstruction or gangrene; K86.2 Cyst of pancreas; R16.1 Splenomegaly, not elsewhere classified | CPT/HCPCS: 71275; 74176 ==

== ENCOUNTER → 2025-06-11 03:51 | Outpatient (BNV) | payer OTHER, SELFPAY | PROVIDERS: Admitting Provider Physician Assistant; Emergency Provider Emergency Medicine; PCP Internal Medicine; Visit Provider Internal Medicine | DX: J96.01 Acute respiratory failure with hypoxia (principal); A41.9 Sepsis, unspecified organism; R65.20 Severe sepsis without septic shock; A41.89 Other specified sepsis; B97.89 Other viral agents as the cause of diseases classified elsewhere; U07.1 COVID-19; E66.813 Obesity, class 3; N18.30 Chronic kidney disease, stage 3 unspecified | CPT/HCPCS: 99223; 99499 ==

== ENCOUNTER 2025-06-23 11:15 | Outpatient (AMB) | payer OTHER, SELFPAY ==
--- NOTE | 2025-06-23 11:18 | MHC.OFFVIS ---
Vital Signs 06/23/25 11:21 Height 5 ft 4 in Weight 224 lb 13.944 oz BMI 38.6 BP 132/67 Blood Pressure Location Lt brachial Position Sitting Pulse 71 Intake Visit Reasons: Pancreatic cyst Intake Note: Deysi presents in the office as a follow up CC: States she was in the ED last week and it was due to COVID. She states that she had a CT scan and was told she has constipation. She states that she is unable to pass a proper Bowel movement. Bucket Wash Operator Required: No Allergies cephalexin Allergy (Severe, Verified 06/23/25 11:22) Difficulty Breathing latex (LATEX) Allergy (Severe, Verified 06/23/25 11:22) Difficulty Breathing levofloxacin (From LEVAQUIN) Allergy (Severe, Verified 06/23/25 11:22) SHORTNESS OF BREATH, RASH, rash morphine (MORPHINE) Allergy (Severe, Verified 06/23/25 11:22) RASH, asthma exacerbation, rash baclofen (BACLOFEN) Allergy (Intermediate, Verified 06/23/25 11:22) Rash celecoxib (Celebrex) Allergy (Intermediate, Verified 06/23/25 11:22) itching, rash, flushing prednisone (PREDNISONE) Allergy (Intermediate, Verified 06/23/25 11:22) RASH, asthma exacerbation, rash codeine Allergy (Unknown, Verified 06/23/25 11:22) Rash gluten (GLUTEN) Allergy (Unknown, Verified 06/23/25 11:22) UNKNOWN oxycodone Allergy (Unknown, Verified 06/23/25 11:22) rash ranitidine Allergy (Unknown, Verified 06/23/25 11:22) unknown roflumilast (Daliresp) Allergy (Unknown, Verified 06/23/25 11:22) rash tramadol (TRAMADOL) Allergy (Unknown, Verified 06/23/25 11:22) RASH,SHORTNESS OF BREATH AND HEADACHE, asthma exacerbation, rash celery Allergy (Verified 06/23/25 11:22) Rash cyclobenzaprine (From Flexeril) Allergy (Verified 06/23/25 11:22) Rash and asthma exacerbation environmental allergies Allergy (Verified 06/23/25 11:22) Cleaning products cause asthma attack pineapple Allergy (Verified 06/23/25 11:22) Rash strawberry Allergy (Verified 06/23/25 11:22) Rash sulfamethoxazole (From Bactrim) Adverse Reaction (Intermediate, Verified 06/23/25 11:22) vertigo trimethoprim (From Bactrim) Adverse Reaction (Intermediate, Verified 06/23/25 11:22) vertigo diazepam (From Valium) Adverse Reaction (Verified 06/23/25 11:22) Cough HPI HPI Pancreatic cyst: Details: 54-year-old female with past medical history of Brugada syndorme and non cirrhotic portal hypertension with history of variceal bleeding, who I am seeing for f/u RECAP: Pt with non cirrhotic portal hypertension issues with melena and anemia Upper endoscopy September 2023 with EVBL. Also had multiple gastric polyps. Path: Hyperplastic polyp without dysplasia. No H pylori. Further admission: EGD and colo 11/21/23 EVBL and gastric polyps removed EGD 05/08- nodular Portal HTN, variceal banding She was admitted with hand infection, and developed abdo pain from suspected ileus and constipation She had admission 06/09 with COVID infection MRI 12/04/24 IMPRESSION: Multiple, nonenhancing cystic lesions in the pancreas the largest in the tail of the pancreas. Continuous surveillance. Splenomegaly, mild. Small subcentimeter cyst, left kidney. Severe scoliosis, lumbar spine and fatty atrophy right psoas iliac muscle secondary to denervation. INTERIM: She has noted constipation worse since her covid she finds it hard to pass stool she is taking lactulose, but doesnt seem to help the hard stools she can have cramps she has nausea allergies playing up takes zofran daily CT reviewed -- constipation with scoliosis EXAM: GENERAL: The patient is well developed and nontoxic. VITAL SIGNS:see workflow HEENT: Nonicteric sclerae, PERRLA, EOMI. Oropharynx clear. Moist mucous membranes. Conjunctivae appear well perfused. No thyroid mass. CHEST: Chest wall is nontender. HEART: Regular rate and rhythm without murmurs. LUNGS: Clear to auscultation bilaterally. ABDOMEN: Soft, positive bowel sounds, nontender, no organomegaly.no flank tenderness SKIN: No rash, no excessive bruising, petechiae, or purpura. bandage on hand-left NEUROLOGIC: Cranial nerves II-XII intact without motor/sensory deficit. Psych: normal affect A/P: 1/ NRH of the liver with severe portal hypertension and congestion, prob causing her satiety etc 2/ panc cysts 3/ constipation from combination of scoliosis, medications and recent covid PLAN: 1/ cont with carvedilol and statin 2/ rept MRI in 1 year 3/ try different probiotic like align 4/ repeat EGD 5/ trail of linalcotide, start with low dose -titrate as needed [facility] Medical History CKD (chronic kidney disease) stage 3, GFR 30-59 ml/min Class 3 obesity Acute kidney injury (nontraumatic) Back pain Renal insufficiency Obesity (BMI 30-39.9) Mitochondrial myopathy Diabetes mellitus Portal hypertensive gastropathy Esophageal varices determined by endoscopy Portal hypertension HTN (hypertension) Anemia Chronic restrictive lung disease Brugada syndrome Shortness of breath Encounter for care related to Port-a-Cath Tinea pedis Recurrent cellulitis of lower extremity CHARLES (obstructive sleep apnea) Hypogammaglobulinemia Cellulitis of both lower extremities Right hip pain Lumbar degenerative disc disease Benign essential hypertension Asthma Acquired hypothyroidism Pure hypercholesterolemia Hx of cataract Osteopenia Osteoarthritis of hip Gastritis Surgical History History of revision of total replacement of right hip joint (~12/2019) Hx of hand surgery History of removal of Port-a-Cath History of total right hip arthroplasty (~06/03/19) History of eye surgery (~09/2017) History of hip surgery Hx of foot surgery (~01/02/19) History of removal of cyst Hx of left knee surgery History of elbow surgery (~07/2016) Hx of thumb surgery Hx of appendectomy Hx of hysterectomy (~07/2011) Hx of bilateral breast reduction surgery Family History Father Leukemia Mother Hypertension Diabetes Sister Alive and well Brother Pancreatic cancer Paternal Grandmother Stomach cancer Paternal Grandmother Throat cancer Social History Household Members: Family Housing: Apartment Do you presently have visiting nurse or other home services: No Alcohol intake: never Comment: low risk, non-skid socks Patient Tobacco Use Status: Never used Tobacco e-Cigarette/Vaping Use: Never Used Second Hand Smoke Exposure: No Advance Directives Date on File: 10/02/23 service: No Current occupational status: disabled Current occupation: rt handed Cognitive needs: No Hearing needs: No Vision needs: No Physical Exam Vital Signs: Last Vital Signs Pulse 71 06/23/25 11:21 BP 132/67 06/23/25 11:21 BMI result Body Mass Index 38.6 Assessment & Plan Assessment & Plan (1) Pancreatic cyst: Code(s): K86.2 - Cyst of pancreas Category: Medical Plan: as above Medications: New linaclotide 72 mcg PO DAILY 30 caps 3RF Coding Level of Care Code Est Pt Level 4 (46961) Diagnoses Pancreatic cyst K86.2
[2025-06-23 11:21] VITALS: BP 132/67; PULSE 71; BMI 38.6
--- OUTSIDE RECORDS SUMMARY | 2025-06-23 13:58 | XMS_ITS | Patient Health Record ---
Author Organization [facility] Address [address] [place] [address] Care Team Providers Care Consumer Educator Name Role Phone Cassius Strong MD Primary Care Provider Babak Kendrick Unavailable [phone] Allergies Allergen (clinical drug ingredient) Drug/Non Drug [...] Medrol 8mg Active Ventolin HFA Active Ipratropium [place] Active Ibuprofen 600mg Acti ve Claritin 10mg Active Synthroid 225mcg Act bety Singulair 10mg Activ e Spironolactone 50mg Active Omeprazole 40mg Acti ve Problems Problem Type SNOMED Code ICD Code Onset Dates Problem Status W/U Status Risk Notes Problem Left upper quadrant pain (896905697) Abdominal pain, left upper quadrant (789.02) Active confirmed Problem Constipation (55740203) Constipation (564.00) Active confirmed Problem Gastroesophageal reflux disease (339024553) GERD (gastroesophage al reflux disease) (530.81) Active confirmed Problem Liver function tests abnormal (719628004) Liver function study, abnormal (794.8) Active confirmed Problem Acid reflux (546810863) Acid reflux (530.81) Active confirmed Problem Epigastric pain (53442013) Abdominal discomfort, epigastric (789.06) Active confirmed Plan Of Treatment Future Test Test Name Order Date UPPER GI ENDOSCOPY 04/19/2012 Insurance Providers Payer Name Payer Address Payer Phone Subscriber Number Group Number Insured Name Patient Relationship to Insured Coverage Start Date Coverage End Date [facility] [address] [facility] [phone] [id number] JUANCHO SHANNON Self - patient is the [...]
--- OUTSIDE RECORDS SUMMARY | 2025-06-23 13:58 | XMS_ITS | Clinical Summary ---
Author Organization [facility] Address [address] [place] [address] Care Team Providers Care Safety Companion Name Role Phone Cassius Strong MD Primary Care Provider Surgical History Surgery Date Site/Laterality Comments HYSTERECTOMY PROCEDURE: HISTORICAL HYSTERECTOMY FOOT SURGERY PROCEDURE: HISTORICAL FOOT SURGERY APPENDECTOMY PROCEDURE: HISTORICAL APPENDECTOMY Medical History Medical History Date Comments Brugada syndrome 08/01/2017 DX:Brugada synd adam Chronic obstructive pulmonar y disease ([facility] V24, [facility] V28) 07/07/2017 DX:Chronic obstructive pulm onary disease (HCC) Diabetes mellitus type 2, un complicated ([facility] V24, [facility] V28) 08/17/2017 DX:Diabetes mellitus type 2 , uncomplicated (HCC) GERD (gastroesophageal reflux disease) 08/17/2017 DX:GERD (gastroesophageal reflux disease) History of pancreatitis 11/10/2017 DX:Histo ry of pancreatitis Hyperlipidemia 08/17/2017 DX:Hyperlipidemi a Hypogammaglobulinemia ([facility] V24) 08/01/2017 DX:Hypogammaglobulinemia (HCC) Hypothyroidism 08/17/2017 DX:Hypothyroidis m 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[facility] V24, [facility] V28) 017 DX: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HCC) Obesity 05/05/2017 DX:Obesity Obstructive sleep apnea syndrome 08/01/2017 DX:Obstructive sleep apnea syndrome; COMMENT: BiPAP Osteoarthritis 08/17/2017 DX:Osteoarthriti s Port-A-Cath in place 11/10/2017 DX:Port-A-C ath in place RA (rheumatoid arthritis) ([facility] V24, [facility] V28) 08/17/2017 DX:RA (rheumatoid arthritis) (HCC) Severe persistent asthma dep endent on systemic steroids ([facility] V28) 11/10/2017 DX:Severe persistent a sthma dependent [...] 2019 Zoster Vaccines (1 of 2) 2019 Depression Screening 10/16/2024 COVID-19 Vaccine (1 - 2023-2 5 season) 2025 Influenza Vaccine (#1) 2025 HIB Vaccines Aged [...] age to complete this topic Care Teams Safety Companion Relationship Specialty Start Date End Date Cassius Strong MD [address] [place] [address] Dr [address] [facility] - General 04/15/11
--- OUTSIDE RECORDS SUMMARY | 2025-06-23 13:58 | XMS_ITS | Clinical Summary ---
Author Organization [facility] Address [address] [place] [id number] Phone Care Team Providers Care Ball Mill Operator Name Role Phone Cassius Strong MD Primary Care Provider [phone] Allergies Active Allergy Reactions Criticality Noted Date [...] 11/09/2017 ZOSTER VACCINES (1 of 2) 2019 INFLUENZA VACCINE (#1) 2025 1, 07/19/2019, 07/20/2018, Additional history exists COVID-19 VACCINE (1 - 2023-25 season) 2025 PNEUMOCOCCAL VACCINES (50+ years) (3 of 3 [...] topic Medical Devices Not on file Insurance ([place]) [address] [place] [address] [facility] MEDICARE REPLACEMENT [id number] MEDICARE REPLACEMENT [facility] MEDICARE REPLACEMENT [facility] MEDICARE REPLACEMENT [facility] MEDICARE REPLACEMENT [facility] MEDICARE REPLACEMENT [facility] MEDICARE REPLACEMENT [facility] MEDICARE REPLACEMENT [facility] ONE CARE MEDICARE REPLACEMENT [id number] Care Teams Ball Mill Operator Relationship Specialty Start Date End Date Cassius Strong MD [address] [place] [address] [place] [address] PCP - General 08/03/17 Additional Source Comments The information contained in this document represents components of the legal health record. It is not the complete legal health record.[facility]
--- OUTSIDE RECORDS SUMMARY | 2025-06-23 13:58 | XMS_ITS | Patient Health Record ---
Author Organization [facility] Address [address] [place] [address] Care Team Providers Care Funeral Pre Need Consultant Name Role Phone Cassius Strong Primary Care Provider Colin Mercado Unavailable [phone] ALLERGIES Allergen (clinical drug ingredient) Drug/Non Drug Allergy documented on EMR Reaction Allergy Type Onset Date Status Apples/Whiteside/Leda ts/Pineapple/Strawb erry/Onion (uncoded) Unknown Allergy Active Gluten [...] out er thigh IM prn Active Ipratropium [place] 0.02 % Inhalation Active Medrol 16 MG [...] Notes Problem Food allergy (Z91.018) Active confirmed 349606807 Problem 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) Active confirmed 608971855 Problem Osteopenia (M85.80) Active confirmed 154070101 Problem Severe persistent asthma, uncomplicated (J45.50) Active confirmed 636261051 Problem Pancreatitis (K85.9) Active confirmed 51086716 Problem Steroid-dependent asthma (J45.909) Active confirmed [id number] Problem Insulin dependent diabetes mellitus with complications (E11.8) Active confirmed 83337909 Problem Myasthenia gravis (G70.00) Active confirmed 42612612 PLAN OF TREATMENT No Information Insurance Providers Payer Name Payer Address Payer Phone Subscriber Number Group Number Insured Name Patient Relationship to Insured Coverage Start Date Coverage End Date Medicare/Ronit [facility] [employer] [address] [place] [phone] [id number] Kala Deysi Self - patient is the insured Medicaid [address] [place] [address] [phone] [id number] Deysi Armendariz Self - patient is the [...]
== END 2025-06-23 11:48 | disposition home or self-care (01) ==
LOC: HO.HGI 11:16
PROVIDERS: PCP Internal Medicine; Visit Provider Internal Medicine Gastroenterology
DX: K86.2 Cyst of pancreas (principal)
CPT/HCPCS: 99214

== ENCOUNTER → 2025-06-23 11:15 | Outpatient (BNVA) | payer OTHER, SELFPAY | PROVIDERS: PCP Internal Medicine; Visit Provider Internal Medicine Gastroenterology | DX: K86.2 Cyst of pancreas (principal) | CPT/HCPCS: 99212 ==

== ENCOUNTER 2025-06-30 11:17 | Outpatient (AMB) | payer OTHER, SELFPAY ==
[2025-06-30 12:15] VITALS: BP 140/90; PULSE 74; RESP 16; TEMP 36.7; O2SAT 97; BMI 39.5
--- NOTE | 2025-06-30 12:15 | AM.OFFWIN_ITS ---
Intake Vital Signs 06/30/25 12:15 Height 5 ft 4 in Weight 230 lb BMI 39.5 BP 140/90 H Blood Pressure Location Lt brachial Position Sitting Respiration 16 Pulse 74 Pulse Source Pulse Oximeter Temp 98.1 F Temp Source Oral Pulse Oximetry (%) 97 Oxygen Delivery Method Room Air Intake Visit Reasons: EP-sore throat, sob, phlegm Patient Tobacco Use Status: Never used Tobacco Allergies cephalexin Allergy (Severe, Verified 06/30/25 12:15) Difficulty Breathing latex (LATEX) Allergy (Severe, Verified 06/30/25 12:15) Difficulty Breathing levofloxacin (From LEVAQUIN) Allergy (Severe, Verified 06/30/25 12:15) SHORTNESS OF BREATH, RASH, rash morphine (MORPHINE) Allergy (Severe, Verified 06/30/25 12:15) RASH, asthma exacerbation, rash baclofen (BACLOFEN) Allergy (Intermediate, Verified 06/30/25 12:15) Rash celecoxib (Celebrex) Allergy (Intermediate, Verified 06/30/25 12:15) itching, rash, flushing prednisone (PREDNISONE) Allergy (Intermediate, Verified 06/30/25 12:15) RASH, asthma exacerbation, rash codeine Allergy (Unknown, Verified 06/30/25 12:15) Rash gluten (GLUTEN) Allergy (Unknown, Verified 06/30/25 12:15) UNKNOWN oxycodone Allergy (Unknown, Verified 06/30/25 12:15) rash ranitidine Allergy (Unknown, Verified 06/30/25 12:15) unknown roflumilast (Daliresp) Allergy (Unknown, Verified 06/30/25 12:15) rash tramadol (TRAMADOL) Allergy (Unknown, Verified 06/30/25 12:15) RASH,SHORTNESS OF BREATH AND HEADACHE, asthma exacerbation, rash celery Allergy (Verified 06/30/25 12:15) Rash cyclobenzaprine (From Flexeril) Allergy (Verified 06/30/25 12:15) Rash and asthma exacerbation environmental allergies Allergy (Verified 06/30/25 12:15) Cleaning products cause asthma attack pineapple Allergy (Verified 06/30/25 12:15) Rash strawberry Allergy (Verified 06/30/25 12:15) Rash sulfamethoxazole (From Bactrim) Adverse Reaction (Intermediate, Verified 06/30/25 12:15) vertigo trimethoprim (From Bactrim) Adverse Reaction (Intermediate, Verified 06/30/25 12:15) vertigo diazepam (From Valium) Adverse Reaction (Verified 06/30/25 12:15) Cough HPI HPI Comments History of Present Illness Details History - The patient is a 54-year-old female pr esenting with a cough, sore throat, and exacerbation of asthma symptoms. - She states that she recently had covid . - She reports a history of asthma exacer bated by exertion, leading to shortness of breath. - The patient has a sore throat and incr eased phlegm production, with occasional green discoloration. - She has a history of oral candidiasis, treated with fluconazole, and previously had COVID-19 with fever. - Past treatments include Medrol and Aug mentin, which have been effective. - She tried to call her PCP but was unab le to reach her. - She has no chest pain, SOB, abd pain, n/v/d, MARCUM, loss of taste or smell. - She denies sick contacts. Physical Exam General: Cooperative, healthy appearing, comfortable and no acute distress Orientation/consciousness: Patient oriented x3 Limitations: No limitations Head: Normal to inspection Ears: Hearing grossly normal bilaterally, external ears normal and TM's normal bilaterally Nose: Normal external nose present, normal nares present, and no nasal discharge present. Face and sinus: Sinuses nontender to palpation. Mouth: Normal oral and palatal mucosa present and moist mucous membranes noted. Thrush not visible. Throat: Tonsils normal. Uvula is midline. Posterior oropharynx with erythema and no exudates. Eyes: Appearance normal, both eyes and all related structures Neck: Normal visual inspection, full ROM. No lymphadenopathy noted. Respiratory: Clear to auscultation bilaterally. Normal respiratory effort, able to speak in complete sentences. No respiratory distress, not tachypneic, no tripod positioning and no use of accessory muscles. Cardiovascular: Regular rate and rhythm. Normal S1 and S2 Skin: No rashes or lesions noted Patient was informed and verbally consented to the use of an ambient scribe for clinic note documentation during this visit [facility] Medical History CKD (chronic kidney disease) stage 3, GFR 30-59 ml/min Class 3 obesity Acute kidney injury (nontraumatic) Back pain Renal insufficiency Obesity (BMI 30-39.9) Mitochondrial myopathy Diabetes mellitus Portal hypertensive gastropathy Esophageal varices determined by endoscopy Portal hypertension HTN (hypertension) Anemia Chronic restrictive lung disease Brugada syndrome Shortness of breath Encounter for care related to Port-a-Cath Tinea pedis Recurrent cellulitis of lower extremity CHARLES (obstructive sleep apnea) Hypogammaglobulinemia Cellulitis of both lower extremities Right hip pain Lumbar degenerative disc disease Benign essential hypertension Asthma Acquired hypothyroidism Pure hypercholesterolemia Hx of cataract Osteopenia Osteoarthritis of hip Gastritis Surgical History History of revision of total replacement of right hip joint (~12/2019) Hx of hand surgery History of removal of Port-a-Cath History of total right hip arthroplasty (~06/03/19) History of eye surgery (~09/2017) History of hip surgery Hx of foot surgery (~01/02/19) History of removal of cyst Hx of left knee surgery History of elbow surgery (~07/2016) Hx of thumb surgery Hx of appendectomy Hx of hysterectomy (~07/2011) Hx of bilateral breast reduction surgery Family History Father Leukemia Mother Hypertension Diabetes Sister Alive and well Brother Pancreatic cancer Paternal Grandmother Stomach cancer Paternal Grandmother Throat cancer Social History Household Members: Family Housing: Apartment Do you presently have visiting nurse or other home services: No Alcohol intake: never Comment: low risk, non-skid socks Patient Tobacco Use Status: Never used Tobacco e-Cigarette/Vaping Use: Never Used Second Hand Smoke Exposure: No Advance Directives Date on File: 10/02/23 service: No Current occupational status: disabled Current occupation: rt handed Cognitive needs: No Hearing needs: No Vision needs: No Review of Systems Const All systems reviewed & are unremarkable except as noted in HPI and below Physical Exam Vital Signs: Last Vital Signs Temp 98.1 F 06/30/25 12:15 Pulse 74 06/30/25 12:15 Resp 16 06/30/25 12:15 BP 140/90 H 06/30/25 12:15 Pulse Ox 97 06/30/25 12:15 Oxygen Delivery Method Room Air 06/30/25 12:15 BMI result Body Mass Index 39.5 Assessment & Plan Assessment & Plan (1) Cough: Code(s): R05.9 - Cough, unspecified Qualifiers: Cough type: acute Qualified Code(s): R05.1 - Acute cough Plan Most likely URI vs viral illness vs asthma vs thrush plan - Monitor asthma symptoms and start Medrol if needed. - Follow up with primary care for management and inhaler adjustment. - Augmentin for bacterial infection. - Advise hydration and lozenges for relief. - Prescribe fluconazole as effective treatment. - Monitor for recurrence and adjust treatment. Medications: New amoxicillin-pot clavulanate 875-125 mg pt has taken augmentin in the past 1 tab PO Q12H 14 tabs 0RF methylprednisolone PO PER PKG DIR for 6 days 21 ea 0RF fluconazole may repeat second dose 72 hrs after first dose if symptoms persist 150 mg PO Q3D 2 tabs 0RF Coding Level of Care Code Est Pt Level 3 (50263) Diagnoses Acute cough R05.1 Cough type: acute
--- OUTSIDE RECORDS SUMMARY | 2025-06-30 15:20 | XMS_ITS | Patient Health Record ---
Author Organization [facility] Address [address] [place] [address] Care Team Providers Care Layboy Tender Name Role Phone Cassius Strong Primary Care Provider Colin Mercado Unavailable [phone] ALLERGIES Allergen (clinical drug ingredient) Drug/Non Drug Allergy documented on EMR Reaction Allergy Type Onset Date Status Apples/[place]/Leda ts/Pineapple/Strawb erry/Onion (uncoded) Unknown Allergy Active Gluten [...] out er thigh IM prn Active Ipratropium [place] 0.02 % Inhalation Active Medrol 16 MG [...] Notes Problem Food allergy (Z91.018) Active confirmed 858633587 Problem 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) Active confirmed 326134518 Problem Osteopenia (M85.80) Active confirmed 905297433 Problem Severe persistent asthma, uncomplicated (J45.50) Active confirmed 978703108 Problem Pancreatitis (K85.9) Active confirmed 82760652 Problem Steroid-dependent asthma (J45.909) Active confirmed [id number] Problem Insulin dependent diabetes mellitus with complications (E11.8) Active confirmed 25427919 Problem Myasthenia gravis (G70.00) Active confirmed 01922714 PLAN OF TREATMENT No Information Insurance Providers Payer Name Payer Address Payer Phone Subscriber Number Group Number Insured Name Patient Relationship to Insured Coverage Start Date Coverage End Date Medicare/Ronit [facility] [employer] [address] [place] [phone] [id number] Kala Deysi Self - patient is the insured Medicaid [address] [place] [address] [id number] Deysi Armendariz Self - patient is the [...]
--- OUTSIDE RECORDS SUMMARY | 2025-06-30 15:20 | XMS_ITS | Clinical Summary ---
Author Organization [facility] Address [address] [place] [address] Phone Care Team Providers Care Honing Machine Operator Production Name Role Phone Cassius Strong MD Primary Care Provider [phone] Allergies Active Allergy Reactions Criticality Noted Date [...] topic Medical Devices Not on file Insurance ([place]) [address] [place] [address] [facility] MEDICARE REPLACEMENT [facility] MEDICARE REPLACEMENT [facility] MEDICARE REPLACEMENT [facility] MEDICARE REPLACEMENT [facility] MEDICARE REPLACEMENT [facility] MEDICARE REPLACEMENT [facility] MEDICARE REPLACEMENT [facility] MEDICARE REPLACEMENT [facility] ONE CARE MEDICARE REPLACEMENT CJ [id number] Care Teams Honing Machine Operator Production Relationship Specialty Start Date End Date Cassius Strong MD [address] [place] [address] [place] [address] PCP - General 08/03/17 Additional Source Comments The information contained in this document represents components of the legal health record. It is not the complete legal health record.[facility]
--- OUTSIDE RECORDS SUMMARY | 2025-06-30 15:20 | XMS_ITS | Clinical Summary ---
Author Organization [facility] [employer] [facility] Address [address] [place] [address] Care Team Providers Care Grocery Clerk Stocking Name Role Phone Cassius Strong MD Primary Care Provider Surgical History Surgery Date Site/Laterality Comments HYSTERECTOMY PROCEDURE: HISTORICAL HYSTERECTOMY FOOT SURGERY PROCEDURE: HISTORICAL FOOT SURGERY APPENDECTOMY PROCEDURE: HISTORICAL APPENDECTOMY Medical History Medical History Date Comments Brugada syndrome 08/01/2017 DX:Brugada synd adam Chronic obstructive pulmonar y disease ([facility] V24, [facility] V28) 07/07/2017 DX:Chronic obstructive pulm onary disease (HCC) Diabetes mellitus type 2, un complicated ([facility] V24, [facility] V28) 08/17/2017 DX:Diabetes mellitus type 2 , uncomplicated (HCC) GERD (gastroesophageal reflux disease) 08/17/2017 DX:GERD (gastroesophageal reflux disease) History of pancreatitis 11/10/2017 DX:Histo ry of pancreatitis Hyperlipidemia 08/17/2017 DX:Hyperlipidemi a Hypogammaglobulinemia ([facility] V24) 08/01/2017 DX:Hypogammaglobulinemia (HCC) Hypothyroidism 08/17/2017 DX:Hypothyroidis m 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[facility] V24, [facility] V28) 017 DX: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HCC) Obesity 05/05/2017 DX:Obesity Obstructive sleep apnea syndrome 08/01/2017 DX:Obstructive sleep apnea syndrome; COMMENT: BiPAP Osteoarthritis 08/17/2017 DX:Osteoarthriti s Port-A-Cath in place 11/10/2017 DX:Port-A-C ath in place RA (rheumatoid arthritis) ([facility] [place] V24, [facility] V28) 08/17/2017 DX:RA (rheumatoid arthritis) (HCC) Severe [...] age to complete this topic Care Teams Grocery Clerk Stocking Relationship Specialty Start Date End Date Cassius Strong MD [address] [place] [address] [address] [facility] - General 04/15/11
--- OUTSIDE RECORDS SUMMARY | 2025-06-30 15:20 | XMS_ITS | Patient Health Record ---
Author Organization [facility] Address [address] [place] [address] Care Team Providers Care Equipment Driver Name Role Phone Cassius Strong MD Primary Care Provider Babak Kendrick Unavailable [phone] Allergies Allergen (clinical drug ingredient) Drug/Non Drug Allergy documented on EMR Reaction Allergy Type Onset Date Status Vicodin Unknown Drug Allergy Active tramadol Tramadol HCl Unknown Drug Allergy Acti ve PredniSONE Unknown Drug Allergy Active morphine Morphine Sulfate Unknown Drug Allergy Active Levaquin Unknown Drug Allergy Active Flexeril Unknown Drug Allergy Active codeine Codeine Sulfate Unknown Drug Allergy A ctive Latex Latex (uncoded) Unknown Allergy Acti ve Reason For Referral No Information Medications Medication SIG (Take, Route, Fr equency, Duration) Notes Start Date End Date Status Advair HFA Active Chromium Active Zyflo Active metFORMIN HCl Active EpiPen Active Nasonex Active Klor-Con Active Vitamin B50 Complex Active Vitamin D Active Xopenex 1.25mg Activ e Medrol 8mg Active Ventolin HFA Active Ipratropium [place] Active Ibuprofen 600mg Acti ve Claritin 10mg Active Synthroid 225mcg Act bety Singulair 10mg Activ e Spironolactone 50mg Active Omeprazole 40mg Acti ve Problems Problem Type SNOMED Code ICD Code Onset Dates Problem Status W/U Status Risk Notes Problem Left upper quadrant pain (165093554) Abdominal pain, left upper quadrant (789.02) Active confirmed Problem Constipation (84204341) Constipation (564.00) Active confirmed Problem Gastroesophageal reflux disease (348634405) GERD (gastroesophage al reflux disease) (530.81) Active confirmed Problem Liver function tests abnormal (993487439) Liver function study, abnormal (794.8) Active confirmed Problem Acid reflux (557940149) Acid reflux (530.81) Active confirmed Problem Epigastric pain (71242728) Abdominal discomfort, epigastric (789.06) Active confirmed Plan Of Treatment Future Test Test Name Order Date UPPER GI ENDOSCOPY 04/19/2012 Insurance Providers Payer Name Payer Address Payer Phone Subscriber Number Group Number Insured Name Patient Relationship to Insured Coverage Start Date Coverage End Date [facility] [address] [facility] [phone] [id number] JUANCHO SHANNON Self - patient is the insured Medical (General) History Medical History History ICD Code Denies [place],CVA,renal disease Hypothyroidism Hiatal hernia--EGD in 06/2012 with [...]
== END 2025-06-30 13:43 | disposition home or self-care (01) ==
PROVIDERS: PCP Internal Medicine; Visit Provider Physician Assistant Medical
DX: R05.1 Acute cough (principal); Z13.9 Encounter for screening, unspecified

== ENCOUNTER → 2025-06-30 11:17 | Outpatient (BNVA) | payer OTHER, SELFPAY | PROVIDERS: PCP Internal Medicine; Visit Provider Physician Assistant Medical | DX: R05.1 Acute cough (principal); J45.909 Unspecified asthma, uncomplicated | CPT/HCPCS: 87880; 99212 ==

== ENCOUNTER 2025-08-08 11:45 | Outpatient (REF) | payer OTHER, SELFPAY ==
--- NOTE | ~2025-08-08 | US_ITS ---
EXAMINATION: US TRIPLEX UPPER EXTREMITY, RIGHT CLINICAL INFORMATION: Follow-up to ensure resolution of thrombus. Previous right axillary and basilic vein thrombosis. COMPARISON: 09/03/2024. TECHNIQUE: Color-flow triplex imaging with spectral analysis and compression Doppler was performed on the right upper extremity. FINDINGS: The right internal jugular, subclavian, and axillary veins are patent and free of thrombus. The imaged segment of the right brachiocephalic vein is patent. Spectral doppler waveforms are normal. The brachial, basilic, radial, and ulnar veins are patent and compressible. Technologist could not definitively visualize the cephalic vein. US/US venous duplex UE RT IMPRESSION: No evidence of deep venous thrombosis involving the right upper extremity. Previously seen thrombosis appears to have resolved. Electronically signed by: Quinton Smith MD 08/08/2025 12:19 PM EDT
--- OUTSIDE RECORDS SUMMARY | 2025-08-08 14:06 | XMS_ITS | Clinical Summary ---
Author Organization [facility] Address [address] [place] [address] Phone Care Team Providers Care Stump Blower Name Role Phone Cassius Strong MD Primary Care Provider [phone] Allergies Active Allergy Reactions Criticality Noted Date [...] VIRTUAL COLONOSCOPY 2014 DIABETIC EYE EXAM 11/09/2017 RSV VACCINE (1 - Risk 50-74 years 1-dose series) 2019 ZOSTER VACCINES (1 of 2) 2019 INFLUENZA VACCINE (#1) 2025 , 07/19/2019, 07/20/2018, Additional history exists COVID-19 VACCINE (1 - 2024-26 season) 2025 PNEUMOCOCCAL VACCINES (50+ years) (3 [...] topic Medical Devices Not on file Insurance [facility] MEDICARE REPLACEMENT [facility] MEDICARE REPLACEMENT CJ [id number] [facility] MEDICARE [facility]PLACEMENT [facility] MEDICARE REPLACEMENT [facility] MEDICARE [facility]PLACEMENT [facility] MEDICARE REPLACEMENT [facility] MEDICARE REPLACEMENT [facility] MEDICARE REPLACEMENT [facility] ONE CARE MEDICARE REPLACEMENT Care Teams Stump Blower Relationship Specialty Start Date End Date Cassius Strong MD [address] [place] [address] PCP - General 08/03/17 Additional Source Comments The information contained in this document represents components of the legal health record. It is not the complete legal health record.[facility]
--- OUTSIDE RECORDS SUMMARY | 2025-08-08 14:06 | XMS_ITS | Patient Health Record ---
Author Organization [facility] Address [address] [place] [address] Care Team Providers Care Staining Machine Operator Name Role Phone Cassius Strong Primary Care Provider Colin Mercado Unavailable [phone] ALLERGIES Allergen (clinical drug ingredient) Drug/Non Drug Allergy documented on EMR Reaction Allergy Type Onset Date Status Apples/[place]/Leda ts/Pineapple/Strawb erry/Onion (uncoded) Unknown Allergy Active Gluten [...] out er thigh IM prn Active Ipratropium [place] 0.02 % Inhalation Active Medrol 16 [...] Notes Problem Food allergy (Z91.018) Active confirmed 031173799 Problem 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) Active confirmed 976182071 Problem Osteopenia (M85.80) Active confirmed 565717996 Problem Severe persistent asthma, uncomplicated (J45.50) Active confirmed 209177149 Problem Pancreatitis (K85.9) Active confirmed 84656066 Problem 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 [place] [address] [phone] [id number] Deysi Armendariz Self - patient is the [...]
--- OUTSIDE RECORDS SUMMARY | 2025-08-08 14:07 | XMS_ITS | Patient Health Record ---
Author Organization [facility] Address [address] [place] [address] Care Team Providers Care Enrolled Agent Name Role Phone Cassius Strong MD Primary Care Provider Babak Kendrick Unavailable [phone] Allergies Allergen (clinical drug ingredient) Drug/Non Drug Allergy documented on EMR Reaction Allergy Type Onset Date Status Levaquin Unknown Drug Allergy Active Flexeril Unknown Drug Allergy Active codeine Codeine Sulfate Unknown Drug Allergy A ctive Latex Latex (uncoded) Unknown Allergy Acti ve Vicodin Unknown Drug Allergy Active tramadol Tramadol HCl Unknown Drug Allergy Acti ve PredniSONE Unknown Drug Allergy Active morphine Morphine Sulfate Unknown Drug Allergy Active Reason For Referral No Information Medications Medication SIG (Take, Route, Fr equency, Duration) Notes Start Date End Date Status Advair HFA Active Chromium Active Zyflo Active metFORMIN HCl Active EpiPen Active Nasonex Active Klor-Con Active Vitamin B50 Complex Active Vitamin D Active Xopenex 1.25mg Activ e Medrol 8mg Active Ventolin HFA Active Ipratropium [place] Active Ibuprofen 600mg Acti ve Claritin 10mg Active Synthroid 225mcg Act bety Singulair 10mg Activ e Spironolactone 50mg Active Omeprazole 40mg Acti ve Problems Problem Type SNOMED Code ICD Code Onset Dates Problem Status W/U Status Risk Notes Problem Left upper quadrant pain (453781850) Abdominal pain, left upper quadrant (789.02) Active confirmed Problem Constipation (49649402) Constipation (564.00) Active confirmed Problem Gastroesophageal reflux disease (795598544) GERD (gastroesophage al reflux disease) (530.81) Active confirmed Problem Liver function tests abnormal (816109760) Liver function study, abnormal (794.8) Active confirmed Problem Acid reflux (844955066) Acid reflux (530.81) Active confirmed Problem Epigastric pain (72731744) Abdominal discomfort, epigastric (789.06) Active confirmed Plan Of Treatment Future Test Test Name Order Date UPPER GI ENDOSCOPY 04/19/2012 Insurance Providers Payer Name Payer Address Payer Phone Subscriber Number Group Number Insured Name Patient Relationship to Insured Coverage Start Date Coverage End Date [facility] [address] [facility] [phone] [id number] JUANCHO SHANNON Self - patient is the insured Medical (General) History Medical History History ICD Code Denies [place],CVA,renal disease Hypothyroidism Hiatal hernia--EGD in 06/2012 with [...]
--- OUTSIDE RECORDS SUMMARY | 2025-08-08 14:07 | XMS_ITS | Clinical Summary ---
Author Organization [facility] [employer] [facility] Address [address] [place] [address] Care Team Providers Care Recovery Advocate Name Role Phone Cassius Strong MD Primary Care Provider Surgical History Surgery Date Site/Laterality Comments HYSTERECTOMY PROCEDURE: HISTORICAL HYSTERECTOMY FOOT SURGERY PROCEDURE: HISTORICAL FOOT SURGERY APPENDECTOMY PROCEDURE: HISTORICAL APPENDECTOMY Medical History Medical History Date Comments Brugada syndrome 08/01/2017 DX:Brugada synd adam Chronic obstructive pulmonar y disease ([facility] V24, [facility] V28) 07/07/2017 DX:Chronic obstructive pulm onary disease (HCC) Diabetes mellitus type 2, un complicated ([facility] V24, [facility] V28) 08/17/2017 DX:Diabetes mellitus type 2 , uncomplicated (HCC) GERD (gastroesophageal reflux disease) 08/17/2017 DX:GERD (gastroesophageal reflux disease) History of pancreatitis 11/10/2017 DX:Histo ry of pancreatitis Hyperlipidemia 08/17/2017 DX:Hyperlipidemi a Hypogammaglobulinemia ([facility] V24) 08/01/2017 DX:Hypogammaglobulinemia (HCC) Hypothyroidism 08/17/2017 DX:Hypothyroidis m 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[facility] V24, [facility] V28) 017 DX: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HCC) Obesity 05/05/2017 DX:Obesity Obstructive sleep apnea syndrome 08/01/2017 DX:Obstructive sleep apnea syndrome; COMMENT: BiPAP Osteoarthritis 08/17/2017 DX:Osteoarthriti s Port-A-Cath in place 11/10/2017 DX:Port-A-C ath in place RA (rheumatoid arthritis) ([facility] [place] V24, [facility] V28) 08/17/2017 DX:RA (rheumatoid arthritis) (HCC) Severe persistent asthma dep endent on systemic steroids ([facility]/HCC V28) 11/10/2017 DX:Severe persistent a sthma [...] 5 season) 2025 Influenza Vaccine (#1) 2025 RSV Immunization Adult Patie nts (1 - 1-dose 75+ series) 2044 HIB Vaccines Aged Out No longer eligi [...] age to complete this topic Care Teams Recovery Advocate Relationship Specialty Start Date End Date Cassius Strong MD [address] [place] [address] Dr [address] [place]ST[place] Alvarez PCP - General 04/15/11
== END 2025-08-08 11:46 | disposition home or self-care (01) ==
LOC: HO.US 11:45
PROVIDERS: PCP Internal Medicine; Visit Provider Internal Medicine
DX: I82.621 Acute embolism and thrombosis of deep veins of right upper extremity (principal)
CPT/HCPCS: 93971

== ENCOUNTER → 2025-08-08 11:47 | Outpatient (BNV) | payer OTHER, SELFPAY | PROVIDERS: PCP Internal Medicine; Visit Provider Radiology Diagnostic Radiology | DX: I82.621 Acute embolism and thrombosis of deep veins of right upper extremity (principal) | CPT/HCPCS: 93971 ==

== ENCOUNTER 2025-08-20 10:49 | Outpatient (AMB) | payer OTHER, SELFPAY ==
--- NOTE | 2025-08-20 10:59 | AM.OFFVISNUR ---
Intake Visit Reasons: Flu shot RE Allergies cephalexin Allergy (Severe, Verified 06/30/25 12:15) Difficulty Breathing latex (LATEX) Allergy (Severe, Verified 06/30/25 12:15) Difficulty Breathing levofloxacin (From LEVAQUIN) Allergy (Severe, Verified 06/30/25 12:15) SHORTNESS OF BREATH, RASH, rash morphine (MORPHINE) Allergy (Severe, Verified 06/30/25 12:15) RASH, asthma exacerbation, rash baclofen (BACLOFEN) Allergy (Intermediate, Verified 06/30/25 12:15) Rash celecoxib (Celebrex) Allergy (Intermediate, Verified 06/30/25 12:15) itching, rash, flushing prednisone (PREDNISONE) Allergy (Intermediate, Verified 06/30/25 12:15) RASH, asthma exacerbation, rash codeine Allergy (Unknown, Verified 06/30/25 12:15) Rash gluten (GLUTEN) Allergy (Unknown, Verified 06/30/25 12:15) UNKNOWN oxycodone Allergy (Unknown, Verified 06/30/25 12:15) rash ranitidine Allergy (Unknown, Verified 06/30/25 12:15) unknown roflumilast (Daliresp) Allergy (Unknown, Verified 06/30/25 12:15) rash tramadol (TRAMADOL) Allergy (Unknown, Verified 06/30/25 12:15) RASH,SHORTNESS OF BREATH AND HEADACHE, asthma exacerbation, rash celery Allergy (Verified 06/30/25 12:15) Rash cyclobenzaprine (From Flexeril) Allergy (Verified 06/30/25 12:15) Rash and asthma exacerbation environmental allergies Allergy (Verified 06/30/25 12:15) Cleaning products cause asthma attack pineapple Allergy (Verified 06/30/25 12:15) Rash strawberry Allergy (Verified 06/30/25 12:15) Rash sulfamethoxazole (From Bactrim) Adverse Reaction (Intermediate, Verified 06/30/25 12:15) vertigo trimethoprim (From Bactrim) Adverse Reaction (Intermediate, Verified 06/30/25 12:15) vertigo diazepam (From Valium) Adverse Reaction (Verified 06/30/25 12:15) Cough Office Procedures Flu Questionnaire Does the patient have a severe egg allergy?: No Does the patient have severe life threatening allergies?: No Does the patient have a fever or illness today?: No Has the patient ever had Guillain-Day[place] Syndrome?: No Has the patient ever had any past reaction to a flu shot?: No Immunizations Fluarix [id number] (PF) 45 mcg (15 mcg x 3)/0.5 mL IM syringe Performing Provider: Cassius Strong MD [place] [facility] Administered by: Rand Flores LPN on 08/20/25 10:59 Dose Route Admin Location Dispensed Lot Number Expiration Date [facility] Cleaner Greaser 0.5 mL IM Right Deltoid 0.5 mL [id number] 04/14/26 [id number] [place] VIS Given Date VIS Provided VIS Publication Date 08/20/25 Single Vaccine 24 Eligibility Eligibility Date Funding Source Not [facility] Eligible 08/20/25 Private Assessment & Plan Assessment & Plan Orders: Orders Influenza [id number] Immunization Today Z23 - Encounter for immunization Coding
--- OUTSIDE RECORDS SUMMARY | 2025-08-20 12:44 | XMS_ITS | Clinical Summary ---
Author Organization [facility] Address [address] [place] [address] Care Team Providers Care Lithographic Plate Maker Name Role Phone Cassius Strong MD Primary Care Provider Surgical History Surgery Date Site/Laterality Comments HYSTERECTOMY PROCEDURE: HISTORICAL HYSTERECTOMY FOOT SURGERY PROCEDURE: HISTORICAL FOOT SURGERY APPENDECTOMY PROCEDURE: HISTORICAL APPENDECTOMY Medical History Medical History Date Comments Brugada syndrome 08/01/2017 DX:Brugada synd adam Chronic obstructive pulmonar y disease ([facility] V24, [facility] V28) 07/07/2017 DX:Chronic obstructive pulm onary disease (HCC) Diabetes mellitus type 2, un complicated ([facility] V24, [facility] V28) 08/17/2017 DX:Diabetes mellitus type 2 , uncomplicated (HCC) GERD (gastroesophageal reflux disease) 08/17/2017 DX:GERD (gastroesophageal reflux disease) History of pancreatitis 11/10/2017 DX:Histo ry of pancreatitis Hyperlipidemia 08/17/2017 DX:Hyperlipidemi a Hypogammaglobulinemia ([facility] V24) 08/01/2017 DX:Hypogammaglobulinemia (HCC) Hypothyroidism 08/17/2017 DX:Hypothyroidis m 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[facility] V24, [facility] V28) 017 DX: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HCC) Obesity 05/05/2017 DX:Obesity Obstructive sleep apnea syndrome 08/01/2017 DX:Obstructive sleep apnea syndrome; COMMENT: BiPAP Osteoarthritis 08/17/2017 DX:Osteoarthriti s Port-A-Cath in place 11/10/2017 DX:Port-A-C ath in place RA (rheumatoid arthritis) ([facility] V24, [facility] V28) 08/17/2017 DX:RA (rheumatoid arthritis) (HCC) Severe persistent asthma dep endent on systemic steroids ([facility]CC V28) 11/10/2017 DX:Severe persistent a [...] age to complete this topic Care Teams Lithographic Plate Maker Relationship Specialty Start Date End Date Cassius Strong MD [address] [place] [address] [address] CONSTANCE Alvarez PCP - General 04/15/11
== END 2025-08-20 11:00 | disposition home or self-care (01) ==
LOC: HO.HMCH 10:50
PROVIDERS: PCP Internal Medicine
DX: Z23 Encounter for immunization (principal)

== ENCOUNTER → 2025-08-20 10:49 | Outpatient (BNVA) | payer OTHER, SELFPAY | PROVIDERS: PCP Internal Medicine | DX: Z23 Encounter for immunization (principal) | CPT/HCPCS: 90471; 90656 ==

== ENCOUNTER 2025-08-29 11:05 | Outpatient (AMB) | payer OTHER, SELFPAY ==
[2025-08-29 11:07] VITALS: BP 138/77; PULSE 81; O2SAT 97; BMI 39.6
--- NOTE | 2025-08-29 11:07 | A.OFFVIS_ITS ---
Vital Signs 08/29/25 11:07 Height 5 ft 4 in Weight 231 lb BMI 39.6 BP 138/77 Blood Pressure Location Lt brachial Position Sitting Pulse 81 Pulse Source Pulse Oximeter Pulse Oximetry (%) 97 Oxygen Delivery Method Room Air Intake Visit Reasons: COPD Allergies cephalexin Allergy (Severe, Verified 06/30/25 12:15) Difficulty Breathing latex (LATEX) Allergy (Severe, Verified 06/30/25 12:15) Difficulty Breathing levofloxacin (From LEVAQUIN) Allergy (Severe, Verified 06/30/25 12:15) SHORTNESS OF BREATH, RASH, rash morphine (MORPHINE) Allergy (Severe, Verified 06/30/25 12:15) RASH, asthma exacerbation, rash baclofen (BACLOFEN) Allergy (Intermediate, Verified 06/30/25 12:15) Rash celecoxib (Celebrex) Allergy (Intermediate, Verified 06/30/25 12:15) itching, rash, flushing prednisone (PREDNISONE) Allergy (Intermediate, Verified 06/30/25 12:15) RASH, asthma exacerbation, rash codeine Allergy (Unknown, Verified 06/30/25 12:15) Rash gluten (GLUTEN) Allergy (Unknown, Verified 06/30/25 12:15) UNKNOWN oxycodone Allergy (Unknown, Verified 06/30/25 12:15) rash ranitidine Allergy (Unknown, Verified 06/30/25 12:15) unknown roflumilast (Daliresp) Allergy (Unknown, Verified 06/30/25 12:15) rash tramadol (TRAMADOL) Allergy (Unknown, Verified 06/30/25 12:15) RASH,SHORTNESS OF BREATH AND HEADACHE, asthma exacerbation, rash celery Allergy (Verified 06/30/25 12:15) Rash cyclobenzaprine (From Flexeril) Allergy (Verified 06/30/25 12:15) Rash and asthma exacerbation environmental allergies Allergy (Verified 06/30/25 12:15) Cleaning products cause asthma attack pineapple Allergy (Verified 06/30/25 12:15) Rash strawberry Allergy (Verified 06/30/25 12:15) Rash sulfamethoxazole (From Bactrim) Adverse Reaction (Intermediate, Verified 06/30/25 12:15) vertigo trimethoprim (From Bactrim) Adverse Reaction (Intermediate, Verified 06/30/25 12:15) vertigo diazepam (From Valium) Adverse Reaction (Verified 06/30/25 12:15) Cough HPI Comments Details: The patient is a 54-year-old woman with known severe persistent asthma, hypogammaglobulinemia and obstructive sleep apnea. She has had significant issues with osteopenia and osteoporosis due to chronic steroid use. Currently she is using crutches. She did have surgery to her hip but still having issues with pain. She has been off the Medrol now for some time. She has been taking IVIG for her immunodeficiency with good effect. In in she also continues with respiratory therapy. When she started on Dupixent for her severe asthma she was able to wean off the Medrol. 05/09/2022 the patient is here for a pulmonary follow-up visit. The patient overall has been having increasing dyspnea on exertion. [id number] severity. She also complains of cough. She did try the Anoro but she could not tolerated. Therefore she stopped it. She continues on the Asmanex. she has not used her short-acting beta agonist. She continues on the Fasenra injections which appeared to be effective for her. The meantime she is having significant foot pain. She is going to have removal hardware from her but next week. I do believe that her worsening dyspnea is likely from deconditioning specially that she has a hard time walking now with her musculoskeletal issues. She did undergo pulmonary function studies in order to have her participate in pulmonary rehabilitation. she appears to have a restrictive ventilatory defect consistent with restrictive lung disease. The patient will benefit from pulmonary rehabilitation at this time. 11/10/2022 the patient is here for a pulmonary follow-up visit. Since we last spoke she had 1 brief exacerbation. She did require course of steroids. She initially call the office and we could not see her and she also call the primary care doctor who could not see her as well. Therefore she was recommended to go to the ED. However she was concerned about potential exposures while in the ED. Therefore she stayed home and she took additional Medrol. Currently she is doing better. She denies any chest congestion. She continues to have some dyspnea on exertion. [id number] severity. She continues on her allergy therapy. She is also using the Fasenra injections with good results. She continues on IVIG. 09/14/2023 the patient is here for a pulmonary follow-up visit. The patient overall doing well. Since we last spoke she did require antibiotics and Medrol once or twice. She is feeling better though. She does take care of her grandkids and exposed to viral syndromes. She tries to be careful though. In the meantime I will send her another script for Medrol for to hold just in case her symptoms worsen again. Patient knows that she is to be careful with taking steroid specially since she was on chronic steroids before will try to avoid that. In the meantime she does continue with her IVIG therapy a her inconsistent use with her Fasenra injections. We did review her recent blood work. She is anemic with a hemoglobin of 10.7. She is going to have that recheck again in 3 months. But with all the her all comorbidities anemia can also worsening shortness of breath. In addition to that will have her check a venous blood gas the next time she gets blood work to make sure she is that she is not retaining CO2. When she comes back in 3-4 months will have a her undergo pulmonary function studies to assess the lung capacity in view of her significant scoliosis and underlying obstructive airway disease. 01/25/2024 the patient is here for pulmonary follow-up visit. She is doing well from a respiratory status. She did see the knitting machine tender in her IVIG was stopped because the levels were good. Subsequently after that she started developing a GI bleed and anemia. She was evaluated by GI and she was found to have portal hypertension. Subsequently after that she was diagnosed with cirrhosis. They recommended a liver biopsy although she has not had as of yet. Her liver function still normal. She did undergo pulmonary function studies. They appeared to be normal except for mild restriction likely secondary to her body habitus and also her neuromuscular disease. At this point she has been evaluated for her liver cirrhosis. She appears to be volume overloaded with some pitting edema bilaterally. The patient needs to be diuresed time. To continue to follow-up with GI. She has contemplating a biopsy. Explained to her if the biopsy is going to ptosis reasonable to pursue. She will discuss further with her grid inspector. 07/26/2024 the patient is here for pulmonary follow-up visit. Overall she is doing better. She did have a sick visit last week because of worsening respiratory symptoms after an exposure. She was placed on Medrol and she seems to be doing better. Although she does have productive cough and chest congestion. Will start her on Augmentin as well. She has also has a respiratory medications and she continues with her IVIG. The patient also had gastric banding is unclear why she has portal hypertension. Will go ahead and request an echocardiogram to make sure that she does not have any significant issues with a heart them to be affecting the blood flow and her liver spleen and ultimately varices. She continues with diuretics. The patient also will go for chest x-ray. Will follow-up in 3 months. If she has any worsening symptoms she will call for an earlier assessment. 10/28/2024 the patient is here for a pulmonary follow-up visit. Overall the patient has been doing okay. She does complain of increasing dyspnea on exertion. She feels like it is in part because of her scoliosis that seems to be getting worse. She is leaning to the right side a lot. She also has been dealing with a wound infection. She had surgery of her hand and then got a serious Staph infection required IV antibiotics and ultimately ended up getting a DVT because of the catheter. Now she is on Xarelto. The patient does have a weakened immune system and therefore she is at risk for infections. She needs to try to avoid any kind of surgical procedures her semi invasive procedures that can lead to infections. Having significant back pain. This is affecting her breathing specially with her scoliosis. I did give her an incentive spirometer for her to work on deep breathing exercises. We did look at her back and she does have significant issues with the kyphoscoliosis. I wonder if this a brace that she can use to help her with her issues. I will go ahead and refer her to physiatry in order to assess for noninvasive nonsurgical approaches to her back pain and scoliosis. 02/27/2025 the patient is here for a pulmonary follow-up visit. Overall she is doing fair. She did develop significant back pain. Then developed a rash. She went to urgent Care was diagnosed with shingles. Currently on antiviral therapy. She does complaint of worsening breathing and chest tightness at times. She is dealing with significant back pain as well. She is following closely with pain management. Going to try doing MRI or imaging studies in the back and then therapy most likely after that. She does respond well to the current respiratory therapy.. She does take bent Medrol sometimes. She understands that she needs to be very careful specially with significant bony abnormalities. Will continue current respiratory therapy will follow-up in 6 months. 08/29/2025 the patient is here for pulmonary follow-up visit. Still about the same. She does complaint of back pain but now being followed by closely by the pain management and she is going to undergo additional therapies for that. In addition to that she continues to have a difficult time with the breathing. Typically when it gets cold the air cause her to have worsening chest tightness and wheezing. Will go ahead and send her additional Medrol to the pharmacy in case she develops worsening respiratory symptoms over the weekend she can st arted. But for the most part I did request that she starts the nebulized therapy and continue with the current respiratory therapy as prescribed. Will go ahead and get her back procedure coming up in the next few weeks. Then after that when she recovers she should get the RSV vaccine. [facility] Medical History CKD (chronic kidney disease) stage 3, GFR 30-59 ml/min Class 3 obesity Acute kidney injury (nontraumatic) Back pain Renal insufficiency Obesity (BMI 30-39.9) Mitochondrial myopathy Diabetes mellitus Portal hypertensive gastropathy Esophageal varices determined by endoscopy Portal hypertension HTN (hypertension) Anemia Chronic restrictive lung disease Brugada syndrome Shortness of breath Encounter for care related to Port-a-Cath Tinea pedis Recurrent cellulitis of lower extremity CHARLES (obstructive sleep apnea) Hypogammaglobulinemia Cellulitis of both lower extremities Right hip pain Lumbar degenerative disc disease Benign essential hypertension Asthma Acquired hypothyroidism Pure hypercholesterolemia Hx of cataract Osteopenia Osteoarthritis of hip Gastritis Surgical History History of revision of total replacement of right hip joint (~12/2019) Hx of hand surgery History of removal of Port-a-Cath History of total right hip arthroplasty (~06/03/19) History of eye surgery (~09/2017) History of hip surgery Hx of foot surgery (~01/02/19) History of removal of cyst Hx of left knee surgery History of elbow surgery (~07/2016) Hx of thumb surgery Hx of appendectomy Hx of hysterectomy (~07/2011) Hx of bilateral breast reduction surgery Family History Father Leukemia Mother Hypertension Diabetes Sister Alive and well Brother Pancreatic cancer Paternal Grandmother Stomach cancer Paternal Grandmother Throat cancer Social History Household Members: Family Housing: Apartment Do you presently have visiting nurse or other home services: No Alcohol intake: never Comment: low risk, non-skid socks Patient Tobacco Use Status: Never used Tobacco e-Cigarette/Vaping Use: Never Used Second Hand Smoke Exposure: No Advance Directives Date on File: 10/02/23 service: No Current occupational status: disabled Current occupation: rt handed Cognitive needs: No Hearing needs: No Vision needs: No Review of Systems Const Denies chills, Denies fatigue, Denies fever(s), Denies weight gain and Denies weight loss ENT Denies dizziness Card Denies chest pain, Denies leg edema, Denies lightheadedness, Denies palpitations, Reports dyspnea on exertion, Denies orthopnea and Denies other Resp Reports cough, Reports dyspnea on exertion and Reports wheezing GI Denies hematochezia and Denies change in stool character Denies nocturia, Denies dysuria and Denies urinary urgency Musc Denies abnormal gait, Denies muscle weakness, Denies numbness, Denies radiating pain into limb and Denies tingling Skin/Breast Denies rash Neuro Denies Abnormal speech present, Denies abnormal gait, Denies dizziness, Denies numbness and Denies tingling Endo Denies fatigue and Denies palpitations Umair/Lymph Details: (+) swelling of the right arm Aller/Immun Reports wheezing Physical Exam Vital Signs: Last Vital Signs Pulse 81 08/29/25 11:07 BP 138/77 08/29/25 11:07 Pulse Ox 97 08/29/25 11:07 Oxygen Delivery Method Room Air 08/29/25 11:07 BMI result Body Mass Index 39.6 Const General: alert HEENT Mouth: tongue abnormal discolored Neck Neck: Yes normal visual inspection, Yes full ROM and Yes no lymphadenopathy Chest Chest palpation & inspection: normal inspection of the chest Resp Effort & Inspection: normal respiratory effort Auscultation: diminished lung sounds Cardio Rate: regular rate Rhythm: regular rhythm Heart sounds: S1 normal heart sound present and S2 normal heart sound present GI Palpation (GI): Soft to palpation and nontender Auscultation: normal bowel sounds Skin General skin exam: rashes and/or lesions noted Neuro Speech: No Abnormal speech present Assessment & Plan Assessment & Plan (1) Asthma: Code(s): J45.909 - Unspecified asthma, uncomplicated Category: Medical Qualifiers: Asthma complication type: uncomplicated Asthma persistence: persistent Asthma severity: moderate Qualified Code(s): J45.40 - Moderate persistent asthma, uncomplicated (2) Hypogammaglobulinemia: Comment: better, off IVIG Code(s): D80.1 - Nonfamilial hypogammaglobulinemia Category: Medical (3) CHARLES (obstructive sleep apnea): Code(s): G47.33 - Obstructive sleep apnea (adult) (pediatric) Category: Medical (4) Chronic restrictive lung disease: Code(s): J98.4 - Other disorders of lung Category: Medical (5) Portal hypertension: Code(s): K76.6 - Portal hypertension Category: Medical (6) Back pain: Code(s): M54.9 - Dorsalgia, unspecified Category: Medical Qualifiers: Back pain laterality: unspecified Back pain location: back pain in unspecified location Chronicity: chronic Qualified Code(s): M54.9 - Dorsalgia, unspecified; G89.29 - Other chronic pain Plan continue Fasenra injections allergy continue singular Asmanex short-acting beta agonist as needed follow-up 6-8 months Medications: Refilled methylprednisolone (Medrol (Jarrett)) orally daily; take 2 tabs daily twice a day x 4, then 1 tab twice a day x 4 days, then 1 tab daily x 4 days 28 ea 1RF 12 days Coding Level of Care Code Est Pt Level 4 (43673) Complex EM visit Add On G2211 Diagnoses Moderate persistent asthma without complication J45.40 Asthma complication type: uncomplicated Asthma persistence: persistent Asthma severity: moderate Hypogammaglobulinemia D80.1 CHARLES (obstructive sleep apnea) G47.33 Chronic restrictive lung disease J98.4 Portal hypertension K76.6 Chronic back pain, unspecified back location, unspecified back pain laterality M54.9; G89.29 Back pain laterality: unspecified Back pain location: back pain in unspecified location Chronicity: chronic Time Spent (min) 16
== END 2025-08-29 11:27 | disposition home or self-care (01) ==
LOC: HO.HPS 11:05
PROVIDERS: PCP Internal Medicine; Visit Provider Hospitalist
DX: J45.40 Moderate persistent asthma, uncomplicated (principal); D80.1 Nonfamilial hypogammaglobulinemia; G47.33 Obstructive sleep apnea (adult) (pediatric); J98.4 Other disorders of lung; K76.6 Portal hypertension; M54.9 Dorsalgia, unspecified; G89.29 Other chronic pain
CPT/HCPCS: 99214; G2211

== ENCOUNTER → 2025-08-29 11:05 | Outpatient (BNVA) | payer OTHER, SELFPAY | PROVIDERS: PCP Internal Medicine; Visit Provider Hospitalist | DX: J45.40 Moderate persistent asthma, uncomplicated (principal); D80.1 Nonfamilial hypogammaglobulinemia; J98.4 Other disorders of lung; K76.6 Portal hypertension; G89.29 Other chronic pain; G47.33 Obstructive sleep apnea (adult) (pediatric) | CPT/HCPCS: 99212 ==

== ENCOUNTER 2025-09-04 06:18 | Outpatient (REF) | payer OTHER, SELFPAY ==
--- NOTE | ~2025-09-04 | FL_ITS ---
EXAMINATION: FLUOROSCOPY GUIDANCE FOR NEEDLE PLACEMENT CLINICAL INFORMATION: M51.360 - Other intervertebral disc degeneration, lumbar region with dis... COMPARISON: Lumbar spine x-ray December 2024 TECHNIQUE: Fluoroscopy guidance for pain management procedure. 3 fluoroscopic images submitted. FINDINGS: Images demonstrate needle placement projecting over the lumbar spine. There is scoliosis and degenerative change of the spine. See procedure note for detailed findings. FLUOROSCOPY TIME: 24 seconds DOSE AREA PRODUCT: 883 mGy-cm2 FL/FL guidance in treatment room IMPRESSION: Fluoroscopy guidance for pain management procedure. Electronically signed by: Carolina Palacios MD 09/04/2025 05:28 PM LAURA
--- OUTSIDE RECORDS SUMMARY | 2025-09-04 06:21 | XMS_ITS | Patient Health Record ---
Author Organization [facility] Address [address] [place] [address] Care Team Providers Care Orthopaedic Surgeon Name Role Phone Cassius Strong MD Primary Care Provider Babak Kendrick Unavailable [phone] Allergies Allergen (clinical drug ingredient) Drug/Non Drug Allergy documented on EMR Reaction Allergy Type Onset Date Status Latex Latex (uncoded) Unknown Allergy Acti ve codeine Codeine Sulfate Unknown Drug Allergy A ctive Flexeril Unknown Drug Allergy Active Levaquin Unknown Drug Allergy Active morphine Morphine Sulfate Unknown Drug Allergy Active PredniSONE Unknown Drug Allergy Active tramadol Tramadol HCl Unknown Drug Allergy Acti ve Vicodin Unknown Drug Allergy Active Reason For Referral No Information Medications Medication SIG (Take, Route, Fr equency, Duration) Notes Start Date End Date Status Advair HFA Active Chromium Active Zyflo Active metFORMIN HCl Active EpiPen Active Nasonex Active Klor-Con Active Vitamin B50 Complex Active Vitamin D Active Xopenex 1.25mg Activ e Medrol 8mg Active Ventolin HFA Active Ipratropium [place] Active Ibuprofen 600mg Acti ve Claritin 10mg Active Synthroid 225mcg Act bety Singulair 10mg Activ e Spironolactone 50mg Active Omeprazole 40mg Acti ve Social History Social History Additional Details Category Social Info Options Details Miscellaneous: Marital status: Occupation: disabled Section Notes: Nonsmoker; no alcohol Nonsmoker; no alcohol Nonsmoker; no alcohol Problems Problem Type SNOMED Code ICD Code Onset Dates Problem Status W/U Status Risk Notes Problem Left upper quadrant pain (600364321) Abdominal pain, left upper quadrant (789.02) Active confirmed Problem Constipation (09970170) Constipation (564.00) Active confirmed Problem Gastroesophageal reflux disease (453997071) GERD (gastroesophage al reflux disease) (530.81) Active confirmed Problem Liver function tests abnormal (707208996) Liver function study, abnormal (794.8) Active confirmed Problem Acid reflux (949171503) Acid reflux (530.81) Active confirmed Problem Epigastric pain (09351877) Abdominal discomfort, epigastric (789.06) Active confirmed Plan Of Treatment Future Test Test Name Order Date UPPER GI ENDOSCOPY 04/19/2012 Insurance Providers Payer Name Payer Address Payer Phone Subscriber Number Group Number Insured Name Patient Relationship to Insured Coverage Start Date Coverage End Date [facility] [address] [facility] [place] [phone] [id number] JUANCHO SHANNON Self - patient is the insured Medical (General) History Medical History History ICD Code Denies [place],CVA,renal disease Hypothyroidism Hiatal hernia--EGD in 06/2012 with [...] Surgical History Surgery Date(Month/Year) Hysterectomy 2010 Appendectomy 1975
--- OUTSIDE RECORDS SUMMARY | 2025-09-04 06:21 | XMS_ITS | Clinical Summary ---
Author Organization [facility] Address [address] [place] [id number] Phone Care Team Providers Care Gas Engine Repairer Name Role Phone Cassius Strong MD Primary Care Provider [phone] Allergies Active Allergy Reactions Criticality Noted Date [...] topic Medical Devices Not on file Insurance [facility] MEDICARE REPLACEMENT [facility] MEDICARE REPLACEMENT CJ [id number] [facility] MEDICARE [facility]PLACEMENT [facility] MEDICARE REPLACEMENT CJ MEJIA [id number] [facility] MEDICARE REPLACEMENT [facility] MEDICARE REPLACEMENT [facility] MEDICARE REPLACEMENT [facility] MEDICARE REPLACEMENT [facility] MEDICARE REPLACEMENT Care Teams Gas Engine Repairer Relationship Specialty Start Date End Date Cassius Strong MD [address] [place] [address] PCP - General 08/03/17 Additional Source Comments The information contained in this document represents components of the legal health record. It is not the complete legal health record.[facility]
== END 2025-09-04 06:19 | disposition home or self-care (01) ==
LOC: CF 06:18
PROVIDERS: Visit Provider Internal Medicine
DX: M51.360 Other intervertebral disc degeneration, lumbar region with discogenic back pain only (principal); M51.16 Intervertebral disc disorders with radiculopathy, lumbar region
CPT/HCPCS: 64483; J1100; J2003; Q9967

== ENCOUNTER 2025-09-04 10:24 | Outpatient (AMB) | payer OTHER, SELFPAY ==
[2025-09-04 10:37] VITALS: BP 136/80; PULSE 90; RESP 16; O2SAT 95
--- NOTE | 2025-09-04 10:37 | A.OFFVIS_ITS ---
Vital Signs 09/04/25 10:37 09/04/25 11:20 BP 136/80 166/88 H Blood Pressure Location Lt radial Lt radial Position Sitting Sitting Respiration 16 16 Pulse 90 85 Pulse Source Pulse Oximeter Pulse Oximeter Pulse Oximetry (%) 95 95 Oxygen Delivery Method Room Air Room Air Intake Visit Reasons: Right L3-L4 TFESI Resource Paraprofessional Required: No Allergies cephalexin Allergy (Severe, Verified 09/04/25 10:37) Difficulty Breathing latex (LATEX) Allergy (Severe, Verified 09/04/25 10:37) Difficulty Breathing levofloxacin (From LEVAQUIN) Allergy (Severe, Verified 09/04/25 10:37) SHORTNESS OF BREATH, RASH, rash morphine (MORPHINE) Allergy (Severe, Verified 09/04/25 10:37) RASH, asthma exacerbation, rash baclofen (BACLOFEN) Allergy (Intermediate, Verified 09/04/25 10:37) Rash celecoxib (Celebrex) Allergy (Intermediate, Verified 09/04/25 10:37) itching, rash, flushing prednisone (PREDNISONE) Allergy (Intermediate, Verified 09/04/25 10:37) RASH, asthma exacerbation, rash codeine Allergy (Unknown, Verified 09/04/25 10:37) Rash gluten (GLUTEN) Allergy (Unknown, Verified 09/04/25 10:37) UNKNOWN oxycodone Allergy (Unknown, Verified 09/04/25 10:37) rash ranitidine Allergy (Unknown, Verified 09/04/25 10:37) unknown roflumilast (Daliresp) Allergy (Unknown, Verified 09/04/25 10:37) rash tramadol (TRAMADOL) Allergy (Unknown, Verified 09/04/25 10:37) RASH,SHORTNESS OF BREATH AND HEADACHE, asthma exacerbation, rash celery Allergy (Verified 09/04/25 10:37) Rash cyclobenzaprine (From Flexeril) Allergy (Verified 09/04/25 10:37) Rash and asthma exacerbation environmental allergies Allergy (Verified 09/04/25 10:37) Cleaning products cause asthma attack pineapple Allergy (Verified 09/04/25 10:37) Rash strawberry Allergy (Verified 09/04/25 10:37) Rash sulfamethoxazole (From Bactrim) Adverse Reaction (Intermediate, Verified 09/04/25 10:37) vertigo trimethoprim (From Bactrim) Adverse Reaction (Intermediate, Verified 09/04/25 10:37) vertigo diazepam (From Valium) Adverse Reaction (Verified 09/04/25 10:37) Cough Medication List - Last Reconciled 09/04/25 by Annmarie Jain LPN aspirin 81 mg PO DAILY atorvastatin 40 mg PO BEDTIME benralizumab (Fasenra) 30 mg subcut Q8W blood pressure monitor As directed blood sugar diagnostic (FreeStyle Lite Strips) As directed- checks 4-5 X/day blood-glucose meter (FreeStyle Lite Meter kit) As directed to check sugars 4 times a day calcium citrate 250 mg PO BID carvedilol 6.25 mg PO DAILY cholecalciferol (vitamin D3) 100 mcg (2 x 50 mcg (2,000 unit)) PO BEDTIME clotrimazole 10 mg PO 5XD PRN [DIABETIC SHOES DIABETIC SHOES - 1 PAIR - use as directed -- Dx: E11.9 -- diabetes mellitus] epinephrine 0.3 mg IM Q5M PRN ferrous sulfate (FeroSul) 325 mg PO DAILY fluconazole 150 mg PO Q3D hydromorphone 2 mg PO TID-QID PRN 7 days insulin aspart (niacinamide) 100 unit/mL (3 mL) (Fiasp FlexTouch U-100 Insulin) subcutaneously 3 times a day before meals; Fiasp 80-150 18 units 151-200 20 units 201-250 22 units 251-250 24 units over 300 26 units tid with meals with maximum 78 units per day insulin glargine (Lantus Solostar U-100 Insulin) 22 units subcut BEDTIME ipratropium bromide 2 sprays intranasal DAILY lactulose 10 grams (15 mL) PO DAILY PRN lancets (FreeStyle Lancets) 4 times a day levalbuterol tartrate 45 mcg/actuation (Xopenex HFA) 2 puffs inhalation Q6H PRN 30 days levothyroxine (Synthroid) 224 mcg (2 x 112 mcg) PO BEDTIME 90 days lidocaine 5% (Lidoderm) 1 patch topical DAILY PRN linaclotide 72 mcg PO DAILY loratadine 10 mg PO DAILY losartan 25 mg PO BEDTIME 90 days methylprednisolone (Medrol (Jarrett)) orally daily; take 2 tabs daily twice a day x 4, then 1 tab twice a day x 4 days, then 1 tab daily x 4 days 12 days methylprednisolone PO PER PKG DIR for 6 days montelukast 10 mg PO BEDTIME 90 days nebulizers As directed nystatin (Klayesta) 1 appl topical BID PRN omeprazole 40 mg PO BID@0630,1630 30 days ondansetron 8 mg PO Q8H PRN 10 days pen needle, diabetic USE TO INJECT FOUR TIMES DAILY DIRECTED pyridostigmine bromide 60 mg PO QID tiotropium bromide 1.25 mcg/actuation (Spiriva Respimat) 2 puffs inhalation DAILY tizanidine 4 mg (2 x 2 mg) PO BEDTIME PRN 30 days walker walker with wheels and seat HPI HPI Right L3-L4 TFESI: Details: Patient presents for scheduled procedure. Denies any recent cough, cold, infection, fever or other significant changes in medical history since last office visit. [facility] Medical History CKD (chronic kidney disease) stage 3, GFR 30-59 ml/min Class 3 obesity Acute kidney injury (nontraumatic) Back pain Renal insufficiency Obesity (BMI 30-39.9) Mitochondrial myopathy Diabetes mellitus Portal hypertensive gastropathy Esophageal varices determined by endoscopy Portal hypertension HTN (hypertension) Anemia Chronic restrictive lung disease Brugada syndrome Shortness of breath Encounter for care related to Port-a-Cath Tinea pedis Recurrent cellulitis of lower extremity CHARLES (obstructive sleep apnea) Hypogammaglobulinemia Cellulitis of both lower extremities Right hip pain Lumbar degenerative disc disease Benign essential hypertension Asthma Acquired hypothyroidism Pure hypercholesterolemia Hx of cataract Osteopenia Osteoarthritis of hip Gastritis Surgical History History of revision of total replacement of right hip joint (~12/2019) Hx of hand surgery History of removal of Port-a-Cath History of total right hip arthroplasty (~06/03/19) History of eye surgery (~09/2017) History of hip surgery Hx of foot surgery (~01/02/19) History of removal of cyst Hx of left knee surgery History of elbow surgery (~07/2016) Hx of thumb surgery Hx of appendectomy Hx of hysterectomy (~07/2011) Hx of bilateral breast reduction surgery Family History Father Leukemia Mother Hypertension Diabetes Sister Alive and well Brother Pancreatic cancer Paternal Grandmother Stomach cancer Paternal Grandmother Throat cancer Social History Household Members: Family Housing: Apartment Do you presently have visiting nurse or other home services: No Alcohol intake: never Comment: low risk, non-skid socks Patient Tobacco Use Status: Never used Tobacco e-Cigarette/Vaping Use: Never Used Second Hand Smoke Exposure: No Advance Directives Date on File: 10/02/23 service: No Current occupational status: disabled Current occupation: rt handed Cognitive needs: No Hearing needs: No Vision needs: No Physical Exam Vital Signs: Last Vital Signs Pulse 85 09/04/25 11:20 Resp 16 09/04/25 11:20 BP 166/88 H 09/04/25 11:20 Pulse Ox 95 09/04/25 11:20 Oxygen Delivery Method Room Air 09/04/25 11:20 Office Procedures Details: Transforaminal epidural steroid injection, Right L3 After obtaining written consent, pre-procedure blood pressure and heart rate were stable and recorded in the nursing record. The patient was placed in the prone position on the fluoroscopy table. The lumbosacral area was prepped with chloraprep, allowed to dry and draped in sterile fashion. Using fluoroscopy, the skin overlying our target was anesthetized with 0.5% lidocaine. A 22 gauge 3.5 inch spinal needle was advanced to the safe triangle in the upper pole of the right L3 foramen. No paresthesias were elicited with needle placement and aspiration was negative for blood and CSF. Correct needle position was confirmed with approximately 1 ml contrast dye (Omnipaque 180 mg/ml) injected under real-time fluoroscopy. No evidence of vascular or intrathecal uptake was seen and there was both epidural and peripheral spread of the contrast agent. 10 mg dexamethasone plus 1 ml containing 0.5% lidocaine was slowly injected. The needle was flushed and removed. the same procedure was repeated for the remaining levels. The skin was cleansed and a sterile bandages were applied. The patient tolerated the procedure well and no complications were encountered. Following the procedure the patient's vital signs were stable. The patient was discharged home in good condition with post-procedural instructions. Time Out: Immediately prior to the procedure, the following was verbally con firmed that there is a signed consent form and that the correct patient, planned procedure, site and side are consistent with documentation and that necessary equipment and/or blood products are available prior to the start of the case. Complications: none EBL: <5 cc 55200 - Lumbar/Sacral Procedure code (CPT) selection complete Assessment & Plan Assessment & Plan (1) Lumbar radicular pain: Code(s): M54.16 - Radiculopathy, lumbar region Category: Medical Plan Patient is status post right L3-4 TFESI. Patient tolerated procedure well and was discharged home in stable condition with discharge instructions. All questions were answered. We will follow-up via telephone or in clinic to assess response to therapy. A follow-up appointment was made during today's visit. Orders: Orders FL guidance in treatment room Today Esperanza Berg, STREET COMMISSIONER, JAVA FLEX DEVELOPER M51.360 - Other intervertebral disc degeneration, lumbar region with discogenic back pain only AMB Transforaminal Epidural Steroid Injection Today Robert Tyson MD M54.16 - Radiculopathy, lumbar region Coding Level of Care Code Procedure Only Diagnoses Lumbar radicular pain M54.16 CPT Codes Transforaminal Epidural Steroid Inj - TESI 3: 64003 - Lumbar/Sacral ([id number])
[2025-09-04 11:20] VITALS: BP 166/88; PULSE 85; RESP 16; O2SAT 95
--- OUTSIDE RECORDS SUMMARY | 2025-09-04 15:24 | XMS_ITS | Patient Health Record ---
Author Organization [facility] Address [address] [place] [address] Care Team Providers Care Copper Miner Blasting Name Role Phone Cassius Strong Primary Care Provider Colin Mercado Unavailable [phone] ALLERGIES Allergen (clinical drug ingredient) Drug/Non Drug Allergy documented on EMR Reaction Allergy Type Onset Date Status Apples/[place]/Leda ts/Pineapple/Strawb erry/Onion (uncoded) Unknown Allergy Active Gluten [...] out er thigh IM prn Active Ipratropium [place] 0.02 % Inhalation Active Medrol 16 MG [...] Notes Problem Food allergy (Z91.018) Active confirmed 676991534 Problem 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) Active confirmed 400719607 Problem Osteopenia (M85.80) Active confirmed 287244407 Problem Severe persistent asthma, uncomplicated (J45.50) Active confirmed 255206522 Problem Pancreatitis (K85.9) Active confirmed 78360104 Problem Steroid-dependent asthma (J45.909) Active confirmed [id number] Problem Insulin dependent diabetes mellitus with complications (E11.8) Active confirmed 94049080 Problem Myasthenia gravis (G70.00) Active confirmed 62571730 PLAN OF TREATMENT No Information Insurance Providers Payer Name Payer Address Payer Phone Subscriber Number Group Number Insured Name Patient Relationship to Insured Coverage Start Date Coverage End Date Medicare/[employer] [address] [place] [phone] [id number] Kala Deysi Self - patient is the insured Medicaid [address] [place] [phone] [id number] Deysi Armendariz Self - patient is the [...]
== END 2025-09-04 11:27 | disposition home or self-care (01) ==
LOC: HO.PMCPRC 10:24
PROVIDERS: PCP Internal Medicine; Visit Provider Internal Medicine
DX: M54.16 Radiculopathy, lumbar region (principal)
CPT/HCPCS: 64483

== ENCOUNTER 2025-09-12 13:22 | Outpatient (AMB) | payer OTHER, SELFPAY ==
[2025-09-12 13:23] VITALS: BP 126/70; PULSE 80; TEMP 36.8; O2SAT 95; BMI 39.8
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
--- OUTSIDE RECORDS SUMMARY | 2025-09-12 13:24 | XMS_ITS | Patient Health Record ---
Author Organization [facility] Address [address] [place] [address] Care Team Providers Care Lock Maintenance Supervisor Name Role Phone Cassius Strong MD Primary Care Provider Babak Kendrick Unavailable [phone] Allergies Allergen (clinical drug ingredient) Drug/Non Drug [...] Medrol 8mg Active Ventolin HFA Active Ipratropium [place] Active Ibuprofen 600mg Acti ve Claritin 10mg [...] Risk Notes Problem Left upper quadrant pain (330394429) Abdominal pain, left upper quadrant (789.02) Active confirmed Problem Constipation (71496433) Constipation (564.00) Active confirmed Problem Gastroesophageal reflux disease (762307960) GERD (gastroesophage al reflux disease) (530.81) Active confirmed Problem Liver function tests abnormal (297136669) Liver function study, abnormal (794.8) Active confirmed Problem Acid reflux (468148098) Acid reflux (530.81) Active confirmed Problem Epigastric pain (83390816) Abdominal discomfort, epigastric (789.06) Active confirmed Plan Of Treatment Future Test Test Name Order Date UPPER GI ENDOSCOPY 04/19/2012 Insurance Providers Payer Name Payer Address Payer Phone Subscriber Number Group Number Insured Name Patient Relationship to Insured Coverage Start Date Coverage End Date [facility] [address] [facility] [place] [phone] [id number] JUANCHO SHANNON Self - patient is the insured Medical (General) History Medical History History ICD Code Denies [place],CVA,renal disease Hypothyroidism Hiatal hernia--EGD in 06/2012 with [...]
--- OUTSIDE RECORDS SUMMARY | 2025-09-12 13:24 | XMS_ITS | Clinical Summary ---
Author Organization [employer] [facility] it Address [address] [place] [address] Care Team Providers Care Glove Operator Name Role Phone Cassius Strong MD Primary Care Provider Surgical History Surgery Date Site/Laterality Comments HYSTERECTOMY PROCEDURE: HISTORICAL HYSTERECTOMY FOOT SURGERY PROCEDURE: HISTORICAL FOOT SURGERY APPENDECTOMY PROCEDURE: HISTORICAL APPENDECTOMY Medical History Medical History Date Comments Brugada syndrome 08/01/2017 DX:Brugada synd adam Chronic obstructive pulmonar y disease ([facility] V24, [facility] V28) 07/07/2017 DX:Chronic obstructive pulm onary disease (HCC) Diabetes mellitus type 2, un complicated ([facility] V24, [facility] V28) 08/17/2017 DX:Diabetes mellitus type 2 , uncomplicated (HCC) GERD (gastroesophageal reflux disease) 08/17/2017 DX:GERD (gastroesophageal reflux disease) History of pancreatitis 11/10/2017 DX:Histo ry of pancreatitis Hyperlipidemia 08/17/2017 DX:Hyperlipidemi a Hypogammaglobulinemia ([facility] V24) 08/01/2017 DX:Hypogammaglobulinemia (HCC) Hypothyroidism 08/17/2017 DX:Hypothyroidis m 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[facility] V24, [facility] V28) 017 DX: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HCC) Obesity 05/05/2017 DX:Obesity Obstructive sleep apnea syndrome 08/01/2017 DX:Obstructive sleep apnea syndrome; COMMENT: BiPAP Osteoarthritis 08/17/2017 DX:Osteoarthriti s Port-A-Cath in place 11/10/2017 DX:Port-A-C ath in place RA (rheumatoid arthritis) ([facility] V24, [facility] V28) 08/17/2017 DX:RA (rheumatoid arthritis) (HCC) Severe persistent asthma dep endent on systemic steroids ([facility]CC V28) 11/10/2017 DX:Severe persistent a sthma dependent [...] Depression Screening 10/16/2024 COVID-19 Vaccine (1 - 2024-2 6 season) 2025 Influenza Vaccine (#1) 2025 RSV [...] age to complete this topic Care Teams Glove Operator Relationship Specialty Start Date End Date Cassius Strong MD [address] [place] [address] Dr [address] [employer] Alvarez PCP - General 04/15/11
--- OUTSIDE RECORDS SUMMARY | 2025-09-12 13:24 | XMS_ITS | Patient Health Record ---
Author Organization [facility] Address [address] [place] [address] Care Team Providers Care Civil Engineer Name Role Phone Cassius Strong Primary Care Provider Colin Mercado Unavailable [phone] ALLERGIES Allergen (clinical drug ingredient) Drug/Non Drug Allergy documented on EMR Reaction Allergy Type Onset Date Status Apples/[place]/Leda ts/Pineapple/Strawb erry/Onion (uncoded) Unknown Allergy Active Gluten [...] out er thigh IM prn Active Ipratropium [place] 0.02 % Inhalation Active Medrol 16 MG [...] Notes Problem Food allergy (Z91.018) Active confirmed 160473026 Problem 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) Active confirmed 407873590 Problem Osteopenia (M85.80) Active confirmed 766698859 Problem Severe persistent asthma, uncomplicated (J45.50) Active confirmed 606105361 Problem Pancreatitis (K85.9) Active confirmed 16580049 Problem 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 [place] [address] [id number] Deysi Armendariz Self - patient is the [...]
--- OUTSIDE RECORDS SUMMARY | 2025-09-12 13:24 | XMS_ITS | Clinical Summary ---
Author Organization [facility] Address [address] [place] [address] Phone Care Team Providers Care Professional Organizer Name Role Phone Cassius Strong MD Primary Care Provider [phone] Allergies Active Allergy Reactions Criticality Noted Date [...] topic Medical Devices Not on file Insurance [facility] MEDICARE REPLACEMENT [facility] MEDICARE REPLACEMENT [id number] [facility] MEDICARE REPLACEMENT [facility] MEDICARE REPLACEMENT [id number] [facility] MEDICARE REPLACEMENT [facility] MEDICARE REPLACEMENT [facility] MEDICARE REPLACEMENT [facility] MEDICARE REPLACEMENT [facility] [employer] MEDICARE REPLACEMENT Care Teams Professional Organizer Relationship Specialty Start Date End Date Cassius Strong MD [address] [place] [address] PCP - General 08/03/17 Additional Source Comments The information contained in this document represents components of the legal health record. It is not the complete legal health record.[facility]
== END 2025-09-12 13:54 | disposition home or self-care (01) ==
PROVIDERS: PCP Internal Medicine; Visit Provider Family Medicine
DX: T14.8XXA Other injury of unspecified body region, initial encounter (principal); L08.9 Local infection of the skin and subcutaneous tissue, unspecified

== ENCOUNTER → 2025-09-12 13:22 | Outpatient (BNVA) | payer OTHER, SELFPAY | PROVIDERS: PCP Internal Medicine; Visit Provider Family Medicine | DX: L03.115 Cellulitis of right lower limb (principal); S81.801D Unspecified open wound, right lower leg, subsequent encounter; W22.8XXD Striking against or struck by other objects, subsequent encounter | CPT/HCPCS: 99212 ==

== ENCOUNTER 2025-09-26 11:40 | Outpatient (REF) | payer OTHER, SELFPAY ==
[2025-09-26 14:21] LABS: Appearance Urine Cloudy; Glucose Urine UA Negative (Negative); PH 5.5 (5.0-9.0); Specific Gravity - Urine 1.015 (1.005-1.025); UMIC TRIGGER UACC YES
[2025-09-26 14:32] LABS: UACC Culture Trigger YES
== END 2025-09-26 11:41 | disposition home or self-care (01) ==
LOC: HO.LAB 11:40
PROVIDERS: PCP Internal Medicine; Visit Provider Internal Medicine
DX: E03.9 Hypothyroidism, unspecified (principal); D64.9 Anemia, unspecified; E78.00 Pure hypercholesterolemia, unspecified; R30.0 Dysuria
CPT/HCPCS: 36415; 80053; 80061; 81001; 82306; 84439; 84443; 85025; 87086

== ENCOUNTER 2025-09-29 12:59 | Outpatient (AMB) | payer OTHER, SELFPAY ==
--- NOTE | 2025-09-29 13:19 | MHC.PC.OV ---
Vital Signs 09/29/25 13:20 Height 5 ft 4 in Weight 234 lb 8 oz BMI 40.2 BP 142/70 H Blood Pressure Location Lt brachial Position Sitting Pulse 70 Pulse Source Pulse Oximeter Temp 97.1 F Temp Source Temporal Artery Scan Pulse Oximetry (%) 98 Oxygen Delivery Method Room Air Intake Visit Reasons: [address] Required: No Accompanied by: Self / Same As Patient Allergies cephalexin Allergy (Severe, Verified 09/29/25 13:50) Difficulty Breathing latex (LATEX) Allergy (Severe, Verified 09/29/25 13:50) Difficulty Breathing levofloxacin (From LEVAQUIN) Allergy (Severe, Verified 09/29/25 13:50) SHORTNESS OF BREATH, RASH, rash morphine (MORPHINE) Allergy (Severe, Verified 09/29/25 13:50) RASH, asthma exacerbation, rash baclofen (BACLOFEN) Allergy (Intermediate, Verified 09/29/25 13:50) Rash celecoxib (Celebrex) Allergy (Intermediate, Verified 09/29/25 13:50) itching, rash, flushing prednisone (PREDNISONE) Allergy (Intermediate, Verified 09/29/25 13:50) RASH, asthma exacerbation, rash codeine Allergy (Unknown, Verified 09/29/25 13:50) Rash gluten (GLUTEN) Allergy (Unknown, Verified 09/29/25 13:50) UNKNOWN oxycodone Allergy (Unknown, Verified 09/29/25 13:50) rash ranitidine Allergy (Unknown, Verified 09/29/25 13:50) unknown roflumilast (Daliresp) Allergy (Unknown, Verified 09/29/25 13:50) rash tramadol (TRAMADOL) Allergy (Unknown, Verified 09/29/25 13:50) RASH,SHORTNESS OF BREATH AND HEADACHE, asthma exacerbation, rash celery Allergy (Verified 09/29/25 13:50) Rash cyclobenzaprine (From Flexeril) Allergy (Verified 09/29/25 13:50) Rash and asthma exacerbation environmental allergies Allergy (Verified 09/29/25 13:50) Cleaning products cause asthma attack pineapple Allergy (Verified 09/29/25 13:50) Rash strawberry Allergy (Verified 09/29/25 13:50) Rash sulfamethoxazole (From Bactrim) Adverse Reaction (Intermediate, Verified 09/29/25 13:50) vertigo trimethoprim (From Bactrim) Adverse Reaction (Intermediate, Verified 09/29/25 13:50) vertigo diazepam (From Valium) Adverse Reaction (Verified 09/29/25 13:50) Cough Medication List - Last Reconciled 09/29/25 by Cassius Strong MD aspirin 81 mg PO DAILY atorvastatin 40 mg PO BEDTIME benralizumab (Fasenra) 30 mg subcut Q8W blood pressure monitor As directed blood sugar diagnostic (FreeStyle Lite Strips) As directed- checks 4-5 X/day blood-glucose meter (FreeStyle Lite Meter kit) As directed to check sugars 4 times a day calcium citrate 250 mg PO BID carvedilol 6.25 mg PO DAILY cholecalciferol (vitamin D3) 100 mcg (2 x 50 mcg (2,000 unit)) PO BEDTIME clotrimazole 10 mg PO 5XD PRN [DIABETIC SHOES DIABETIC SHOES - 1 PAIR - use as directed -- Dx: E11.9 -- diabetes mellitus] doxycycline hyclate 100 mg PO BID 7 days epinephrine 0.3 mg IM Q5M PRN ferrous sulfate (FeroSul) 325 mg PO DAILY fluconazole 100 mg PO DAILY 7 days hydromorphone 2 mg PO TID-QID PRN 7 days insulin aspart (niacinamide) 100 unit/mL (3 mL) (Fiasp FlexTouch U-100 Insulin) subcutaneously 3 times a day before meals; Fiasp 80-150 18 units 151-200 20 units 201-250 22 units 251-250 24 units over 300 26 units tid with meals with maximum 78 units per day insulin glargine (Lantus Solostar U-100 Insulin) 22 units subcut BEDTIME ipratropium bromide 2 sprays intranasal DAILY lactulose 10 grams (15 mL) PO DAILY PRN lancets (FreeStyle Lancets) 4 times a day levalbuterol tartrate 45 mcg/actuation (Xopenex HFA) 2 puffs inhalation Q6H PRN 30 days levothyroxine (Synthroid) 224 mcg (2 x 112 mcg) PO BEDTIME 90 days lidocaine 5% (Lidoderm) 1 patch topical DAILY PRN linaclotide 72 mcg PO DAILY loratadine 10 mg PO DAILY losartan 25 mg PO BEDTIME 90 days methylprednisolone (Medrol (Jarrett)) orally daily; take 2 tabs daily twice a day x 4, then 1 tab twice a day x 4 days, then 1 tab daily x 4 days 12 days methylprednisolone PO PER PKG DIR for 6 days montelukast 10 mg PO BEDTIME 90 days nebulizers As directed nystatin (Klayesta) 1 appl topical BID PRN omeprazole 40 mg PO BID@0630,1630 30 days ondansetron 8 mg PO Q8H PRN 10 days pen needle, diabetic USE TO INJECT FOUR TIMES DAILY DIRECTED pyridostigmine bromide 60 mg PO QID tiotropium bromide 1.25 mcg/actuation (Spiriva Respimat) 2 puffs inhalation DAILY tizanidine 4 mg (2 x 2 mg) PO BEDTIME PRN 30 days walker walker with wheels and seat Tobacco use date assessed: 09/29/25 Dental Screening Dental Screen Date: 09/29/25 HPI 3 Months HPI Details Patient comes in today for her follow up visit for her chronic conditions, including her low back pain - Low Back Pain: The patient has a history of right L5 transforaminal epidural steroid injection with pain management last month, which provided some relief for her back, though she notes it puts pressure on her leg where the antoinette for her hip is. - Diabetes Mellitus: Her A1c today was 8.6, which she was not surprised by due to being on and off her diet. - Cellulitis of the Leg: She was seen at a walk-in clinic for redness on her leg and was prescribed doxycycline 100 mg twice a day, which she felt was a low dose and that capsules work better for her than tablets. - She received a second course of doxycycline, totaling two weeks of treatment over the past month with a week-long gap between courses. - Respiratory Symptoms: She has had a cough and a lot of phlegm for the last few days. - She has an inhaler at home for asthma. - She was exposed to a family member who was diagnosed with influenza a few days prior. - Lab Work: The patient had blood drawn on Monday, but only urine results are available. - There is a possibility the blood specimen was hemolyzed or insufficient for testing. - She received a call from the [facility] about the issue. - Diabetic Shoes: She missed an appointment for orthopedic shoes and requires a new script and appointment information to be sent to the orthotic place. Needs a few of her Rx refilled Other than U/A - no labs done recently [facility] Medical History CKD (chronic kidney disease) stage 3, GFR 30-59 ml/min Class 3 obesity Acute kidney injury (nontraumatic) Back pain Renal insufficiency Obesity (BMI 30-39.9) Mitochondrial myopathy Diabetes mellitus Portal hypertensive gastropathy Esophageal varices determined by endoscopy Portal hypertension HTN (hypertension) Anemia Chronic restrictive lung disease Brugada syndrome Shortness of breath Encounter for care related to Port-a-Cath Tinea pedis Recurrent cellulitis of lower extremity CHARLES (obstructive sleep apnea) Hypogammaglobulinemia Cellulitis of both lower extremities Right hip pain Lumbar degenerative disc disease Benign essential hypertension Asthma Acquired hypothyroidism Pure hypercholesterolemia Hx of cataract Osteopenia Osteoarthritis of hip Gastritis Surgical History History of revision of total replacement of right hip joint (~12/2019) Hx of hand surgery History of removal of Port-a-Cath History of total right hip arthroplasty (~06/03/19) History of eye surgery (~09/2017) History of hip surgery Hx of foot surgery (~01/02/19) History of removal of cyst Hx of left knee surgery History of elbow surgery (~07/2016) Hx of thumb surgery Hx of appendectomy Hx of hysterectomy (~07/2011) Hx of bilateral breast reduction surgery Family History Father Leukemia Mother Hypertension Diabetes Sister Alive and well Brother Pancreatic cancer Paternal Grandmother Stomach cancer Paternal Grandmother Throat cancer Social History Household Members: Family Housing: Apartment Do you presently have visiting nurse or other home services: No Alcohol intake: never Comment: low risk, non-skid socks Patient Tobacco Use Status: Never used Tobacco e-Cigarette/Vaping Use: Never Used Second Hand Smoke Exposure: No Advance Directives Date on File: 10/02/23 service: No Current occupational status: disabled Current occupation: rt handed Cognitive needs: No Hearing needs: No Vision needs: No Questionnaire PHQ-9 Over the last 2 weeks, how often have you been bothered by any of the following problems? 1. Little interest or pleasure in doing things: not at all 2. Feeling down, depressed, or hopeless: not at all 3. Trouble falling or staying asleep, or sleeping too much: not at all 4. Feeling tired or having little energy: more than half the days 5. Poor appetite or overeating: not at all 6. Feeling bad about yourself - or that you are a failure or have let yourself or your family down: not at all 7. Trouble concentrating on things, such as reading the newspaper or watching television: not at all 8. Moving or speaking so slowly that other people could have noticed. Or the opposite - being so fidgety or restless that you have been moving around a lot more than usual: not at all 9. Thoughts that you would be better off or of hurting yourself in some way: not at all Total score: 2 Depression Screening Interpretation: Negative Depression Screening Done: Yes 64179 - PHQ-9 Billing: Yes Source: Developed by Drs. Babak Mcintosh, Savannah Vera, Christian Crowell and colleagues, with an educational sarah from [employer]. Thrive Questionnaire Date Thrive assessed: 09/29/25 I am a: Patient What is your living situation today?: I have a steady place to live Within the past 12 months, did the food you bought not last and you didn't have the money to get more?: Never true Within the past 12 months, did you worry whether your food would run out before you got money to buy more?: Never true Do you have trouble paying for medicines?: No Do you have trouble getting transportation to medical appointments?: No Do you have trouble paying your heating and electricity bill?: No Do you have trouble taking care of your child, family member or friend?: No Do you have trouble with day-to-day activities such as bathing, preparing meals, shopping, managing finances, etc.?: No Are you currently unemployed and looking for a job?: I choose not to answer this question Are you interested in more education?: No Please select the resources that you would like help with: None Currently or been in a relationship where the following occur: No concerns reported THRIVE Score: 0 AUDIT C Alcohol Use Questionnaire (AUDIT-C) 1. How often do you have a drink containing alcohol?: Never 3. How often do you have six or more drinks on one occasion?: Never Total Score: 0 Score Reviewed/Action Taken: Yes REI-7 AMB Questionnaire REI-7 Date REI - 7 assessed: 09/29/25 Feeling nervous, anxious, or on edge: 0 = Not at all Not being able to stop or control worryin = Not at all Worrying too much about different things: 0 = Not at all Trouble relaxin = Several days Being so restless that it is hard to sit still: 1 = Several days Becoming easily annoyed or irritable: 0 = Not at all Feeling afraid as if something awful might happen: 0 = Not at all Total REI-7 score (0-4 normal; 5-9 mild; 10-14 moderate; 15-21 severe): 2 Source: Developed by Drs. Babak Mcintosh, Savannah Vera, Christian Crowell and colleagues, with an educational saarh from [employer]. Review of Systems Const Denies chills, Reports difficulty sleeping (waking up often due to increased pain over her lower back ), Reports fatigue, Denies fever(s) and Denies headache(s) ENT Denies dysphagia, Denies dizziness, Denies otalgia, Denies headache(s), Denies neck pain, Denies odynophagia and Denies sore throat Card Denies chest pain, Denies palpitations and Reports dyspnea on exertion (mild) Resp Denies chest congestion, Denies cough and Reports dyspnea on exertion (mild) GI Denies abdominal pain, Reports constipation (chronic), Denies dysphagia, Denies heartburn, Denies diarrhea, Denies nausea, Denies odynophagia and Denies vomiting Denies difficulty voiding, Denies nocturia, Denies dysuria and Denies urinary urgency Musc Reports back pain (over the lumbar spine - chronic), Reports arthralgias (involving multiple joints, including both hips and knees) and Denies neck pain Skin/Breast Details: (+) multiple slightly raised keratotic lesions on the frontal scalp Denies rash Neuro Denies dizziness and Denies headache(s) Endo Reports fatigue and Denies palpitations Umair/Lymph Details: (+) swelling of the right arm Physical exam (Primary Care) Vital Signs: Last Vital Signs Temp 97.1 F 09/29/25 13:20 Pulse 70 09/29/25 13:20 BP 142/70 H 09/29/25 13:20 Pulse Ox 98 09/29/25 13:20 Oxygen Delivery Method Room Air 09/29/25 13:20 BMI result Body Mass Index 40.2 Tobacco/Smoking Status: Tobacco use Status Tobacco use date assessed 09/29/25 09/29/25 13:22 Patient Tobacco Use Status Never used Tobacco 09/29/25 13:22 e-Cigarette/Vaping Use Never Used 09/29/25 13:22 PHQ-9: PHQ-9 Score PHQ-9: Total score 2 09/29/25 13:32 Depression Screening Interpretation: Negative Thrive Assessment: Date of Thrive Assessment Date Thrive assessed 09/29/25 09/29/25 13:22 Currently or been in a relationship where the following occur: No concerns reported Results AMB Hemoglobin A1c AMB Hemoglobin A1c 8.6 % Last Edit by ARIC Gomez on 09/29/25 13:44 Results Reviewed Results Reviewed: Laboratory Last Values Hgb A1c (Clinic) 8.6 % (4.0-6.0) H 09/29/25 13:22 Coding Level of Care Code Est Pt Level 4 (42631) Diagnoses Type 1 diabetes mellitus with hyperglycemia E10.65 Diabetes mellitus type: type 1 Diabetes mellitus complication status: with hyperglycemia Benign essential hypertension I10 Pure hypercholesterolemia E78.00 Moderate persistent asthma without complication J45.40 Asthma severity: moderate Asthma persistence: persistent Asthma complication type: uncomplicated Acquired hypothyroidism E03.9 Acute deep vein thrombosis (DVT) of other vein of right upper extremity I82.621 Affected thrombotic vein of extremity: other upper extremity vein Chronicity: acute Mitochondrial myopathy G71.3 Esophageal varices determined by endoscopy I85.00 Portal hypertensive gastropathy K76.6; K31.89 Elevated LFTs R79.89 Anemia, unspecified type D64.9 Anemia type: unspecified type Renal insufficiency N28.9 Degeneration of intervertebral disc of lumbar region with discogenic back pain M51.360 Disc-related pain type: discogenic back pain only Primary osteoarthritis of both hips M16.0 Osteoarthritis type: primary Laterality: bilateral Skin lesion of scalp L98.9 Obesity (BMI 30-39.9) E66.9 Additional Codes PHQ-9 - 31744 - PHQ-9 Billing: Yes ([id number]) Assessment & Plan Assessment & Plan (1) Diabetes mellitus: Code(s): E11.9 - Type 2 diabetes mellitus without complications Category: Medical Qualifiers: Diabetes mellitus type: type 1 Diabetes mellitus complication status: with hyperglycemia Qualified Code(s): E10.65 - Type 1 diabetes mellitus with hyperglycemia Plan: Her HgbA1c was at 9.8% when last checked at the endocrinology clinic back in January 2025; HgbA1c was previously at 8.6% on 08/01/2024 - goal is at least <7.0% Reinforced diabetic diet She was reclassified as LORNE (type 1 diabetes) instead when her REI antibody test came back positive in 2021 Her Metformin was recently stopped and she currently continues on Fiasp dosed at 6-10 units TID with meals per sliding scale Her Tresiba was recently doubled up by endocrinology from 16 units to 32 units QD Follow up with endocrinology as scheduled - she has appointment scheduled for tomorrow (2) Benign essential hypertension: Code(s): I10 - Essential (primary) hypertension Category: Medical Plan: Reinforced low sodium diet - goal is systolic BP of at least 120 to 130 mm or less Continue Carvedilol 6.25 mg QD and Losartan 25 mg QD She was started on Carvedilol 6.25 mg QD in September 2023 more for her hypertensive portal gastropathy; Metoprolol was discontinued Her Losartan 25 mg QD was HELD for a while a few months ago due to low BP and recurrent dizziness - her BP has gone up since and she was eventually started back on Losartan at 25 mg Patient is reminded to continue monitoring her blood pressure regularly (3) Pure hypercholesterolemia: Code(s): E78.00 - Pure hypercholesterolemia, unspecified Category: Medical Plan: Results of her labs done earlier today reviewed and discussed with patient Reinforced low cholesterol diet Continue Atorvastatin 40 mg QD Will recheck her labs and fasting lipids in 3 months for follow up (4) Asthma: Code(s): J45.909 - Unspecified asthma, uncomplicated Category: Medical Qualifiers: Asthma severity: moderate Asthma persistence: persistent Asthma complication type: uncomplicated Qualified Code(s): J45.40 - Moderate persistent asthma, uncomplicated Plan: Controlled Continue Montelukast 10 mg once a day in the evening, Spiriva Respimat 20-100 mcg 1 inhalation 4 times a day, Ventolin HFA 2 puffs 4 times a day as needed and DuoNeb nebulizer solution 3 mL via nebulizer 4 times a day as needed Continue Fasenra 30 mg subcutaneous injection every 8 weeks Follow up with pulmonary as scheduled (5) Acquired hypothyroidism: Code(s): E03.9 - Hypothyroidism, unspecified Category: Medical Plan: Continue Synthroid 224 mcg QD Will continue to monitor her TFTs regularly Follow up with endocrinology as scheduled (6) Deep vein thrombosis (DVT) of right upper extremity: Code(s): I82.621 - Acute embolism and thrombosis of deep veins of right upper extremity Category: Medical Qualifiers: Affected thrombotic vein of extremity: other upper extremity vein Chronicity: acute Qualified Code(s): I82.621 - Acute embolism and thrombosis of deep veins of right upper extremity Plan: Venous doppler of the right upper extremity done at the ER on 09/03/2024 when patient presented there with right arm swelling and pain revealed (+) catheter related deep venous thrombosis involving the right axillary vein and basilic vein Her right upper extremity PICC line was discontinued in the ER and she was then started on Eliquis 5 mg BID but was subsequently switched over to Xarelto 20 mg QD as she could not tolerate Eliquis (syncopal episodes?) Will now send her for repeat venous doppler on her right upper extremity to ensure resolution of her DVT (7) Mitochondrial myopathy: Code(s): G71.3 - Mitochondrial myopathy, not elsewhere classified Category: Medical Plan: Continue Mestinon tablets 60 mg 4 times a day Patient also receives Gammagard infusion 40 mg IV every [address] up with Dr. Cobian and with neurology as scheduled for continuing management (8) Esophageal varices determined by endoscopy: Code(s): I85.00 - Esophageal varices without bleeding Category: Medical Plan: EGD done in September 2023 revealed (+) large varices that required banding x 5 and hemospray application Patient also had a gastric polyp that was removed surgically Repeat EGD done in November 2023 revealed (+) gastric polyps (pathology came back benign), portal hypertensive gastropathy and esophageal varices - banding and hemospray were again required Repeat colonoscopy showed (+) internal hemorrhoids and 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 She is reminded to avoid all NSAIDs completely Continue Omeprazole 40 mg BID; continue Carvedilol 6.25 mg QD for hypertensive portal gastropathy Follow up with GI as scheduled (9) Portal hypertensive gastropathy: Code(s): K76.6 - Portal hypertension; K31.89 - Other diseases of stomach and duodenum Category: Medical Plan: EGD done in September 2023 and November 2023 revealed (+) large esophageal varices, gastric polyps (pathology came back benign) and portal hypertensive gastropathy that required banding and hemospray application Repeat colonoscopy showed (+) internal hemorrhoids and 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 Her spleen is enlarged and measures about 14.5 cm Will continue to monitor her LFTs regularly (11) Anemia: Code(s): D64.9 - Anemia, unspecified Category: Medical Qualifiers: Anemia type: unspecified type Qualified Code(s): D64.9 - Anemia, unspecified Plan: This is likely multifactorial, including due to her recent Hx of GI bleeding, as well as anemia of chronic disease Will continue to monitor her CBC closely for now Follow up with hematology as scheduled - she sees Dr. Bains (12) Renal insufficiency: Code(s): N28.9 - Disorder of kidney and ureter, unspecified Category: Medical Plan: Her renal function appears to have declined over the past month and she now have numbers similar to those seen in CKD stage 3 - this is likely in relation to her recent infection as well as her IV Abx Will continue to monitor her renal function for now and it has been emphasized to patient that she should avoid all potential nephrotoxic Rx as much as possible Will recheck her chem profile and renal function in 3 months for follow up (13) Lumbar degenerative disc disease: Code(s): M51.36 - Other intervertebral disc degeneration, lumbar region Category: Medical Qualifiers: Disc-related pain type: discogenic back pain only Qualified Code(s): M51.360 - Other intervertebral disc degeneration, lumbar region with discogenic back pain only Plan: Reinforced activity and weight-lifting restrictions Continue Hydromorphone 2 mg 3 times a day as needed - patient requested to have it increased to 4 times a day temporarily while pain management is trying to get her worked up for her low back pain (Rx refilled) Have advised patient that I will agree to increasing her dosing to 4 times a day when her prescription is due for refill next week She was seen by pain management and sent for an MRI of her lumbar spine for further evaluation - MRI done on 05/26/2025 revealed (+) moderately severe rotatory scoliosis with associated degenerative changes Follow up with pain management as scheduled (14) Osteoarthritis of hip: Code(s): M16.9 - Osteoarthritis of hip, unspecified Category: Medical Qualifiers: Osteoarthritis type: primary Laterality: bilateral Qualified Code(s): M16.0 - Bilateral primary osteoarthritis of hip Plan: She continues to experience increased pain in her right hip despite her arthroplasty followed by revision surgery in 2019 Follow up with orthopedics ([facility]) as scheduled She recalls getting some hip x-rays done at [facility] a few months ago but does not know how her x-rays came out Follow-up with pain management as scheduled (15) Skin lesion of scalp: Code(s): L98.9 - Disorder of the skin and subcutaneous tissue, unspecified Category: Medical Plan: Will refer her to dermatology for further evaluation and management (16) Obesity (BMI 30-39.9): Code(s): E66.9 - Obesity, unspecified Category: Medical Plan: Reinforced diet; exercise and weight loss are currently unrealistic expectations due to her multiple comorbidities Plan Follow up in 3 months Orders: Orders AMB Hemoglobin A1c Today E10.65 - Type 1 diabetes mellitus with hyperglycemia Complete Blood Count Auto Diff 3 Months D64.9 - Anemia, unspecified Comprehensive [place]. Panel Fast 3 Months E78.00 - Pure hypercholesterolemia, unspecified Lipid Panel 3 Months E78.00 - Pure hypercholesterolemia, unspecified Free T4 (Free Thyroxine) 3 Months E03.9 - Hypothyroidism, unspecified SARS-CoV2/FLU/RSV Today J98.8 - Other specified respiratory disorders Thyroid Stimulating Hormone 3 Months E03.9 - Hypothyroidism, unspecified UA CC w/rflx Micro + Cult 3 Months R30.0 - Dysuria Vitamin D 25-OH Total 3 Months E55.9 - Vitamin D deficiency, unspecified Medications: Refilled hydromorphone Partial Fill upon patient request. Covering for Dr. Strong 2 mg PO TID-QID PRN 25 tabs 0RF pain 7 days [DIABETIC SHOES] DIABETIC SHOES - 1 PAIR - use as directed -- Dx: E11.9 -- diabetes mellitus 1 ea 0RF E11.9 - Type 2 diabetes mellitus without complications levothyroxine (Synthroid) 224 mcg (2 x 112 mcg) PO BEDTIME 180 tabs 1RF 90 days tizanidine 4 mg (2 x 2 mg) PO BEDTIME PRN 60 tabs 0RF for muscle spasm 30 days
[2025-09-29 13:20] VITALS: BP 142/70; PULSE 70; TEMP 36.2; O2SAT 98; BMI 40.2
--- OUTSIDE RECORDS SUMMARY | 2025-09-29 18:54 | XMS_ITS | Clinical Summary ---
Author Organization [facility] it Address [address] [place] [address] Care Team Providers Care Carburizing Furnace Operator Name Role Phone Cassius Strong MD Primary Care Provider Surgical History Surgery Date Site/Laterality Comments HYSTERECTOMY PROCEDURE: HISTORICAL HYSTERECTOMY FOOT SURGERY PROCEDURE: HISTORICAL FOOT SURGERY APPENDECTOMY PROCEDURE: HISTORICAL APPENDECTOMY Medical History Medical History Date Comments Brugada syndrome 08/01/2017 DX:Brugada synd adam Chronic obstructive pulmonar y disease ([facility] V24, [facility] V28) 07/07/2017 DX:Chronic obstructive pulm onary disease (HCC) Diabetes mellitus type 2, un complicated ([facility] V24, [facility] V28) 08/17/2017 DX:Diabetes mellitus type 2 , uncomplicated (HCC) GERD (gastroesophageal reflux disease) 08/17/2017 DX:GERD (gastroesophageal reflux disease) History of pancreatitis 11/10/2017 DX:Histo ry of pancreatitis Hyperlipidemia 08/17/2017 DX:Hyperlipidemi a Hypogammaglobulinemia ([facility] V24) 08/01/2017 DX:Hypogammaglobulinemia (HCC) Hypothyroidism 08/17/2017 DX:Hypothyroidis m 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[facility] V24, [facility] V28) 017 DX: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HCC) Obesity 05/05/2017 DX:Obesity Obstructive sleep apnea syndrome 08/01/2017 DX:Obstructive sleep apnea syndrome; COMMENT: BiPAP Osteoarthritis 08/17/2017 DX:Osteoarthriti s Port-A-Cath in place 11/10/2017 DX:Port-A-C ath in place RA (rheumatoid arthritis) ([facility] [place] V24, [facility] V28) 08/17/2017 DX:RA (rheumatoid arthritis) (HCC) Severe persistent asthma dep endent on systemic steroids ([facility] V28) 11/10/2017 DX:Severe persistent a sthma dependent [...] on file Sexual Orientation Not on file Plan of Treatment Health Maintenance Due Date [...] age to complete this topic Care Teams Carburizing Furnace Operator Relationship Specialty Start Date End Date Cassius Strong MD [address] [place] [address] Dr [address] CONST[place] Alvarez PCP - General 04/15/11
--- OUTSIDE RECORDS SUMMARY | 2025-09-29 18:54 | XMS_ITS | Patient Health Record ---
Author Organization [facility] Address [address] [place] [address] Care Team Providers Care Angle Dozer Operator Name Role Phone Cassius Strong MD Primary Care Provider Babak Kendrick Unavailable [phone] Allergies Allergen (clinical drug ingredient) Drug/Non Drug [...] Medrol 8mg Active Ventolin HFA Active Ipratropium [place] Active Ibuprofen 600mg Acti ve Claritin 10mg [...] Risk Notes Problem Left upper quadrant pain (589740538) Abdominal pain, left upper quadrant (789.02) Active confirmed Problem Constipation (69659516) Constipation (564.00) Active confirmed Problem Gastroesophageal reflux disease (041344805) GERD (gastroesophage al reflux disease) (530.81) Active confirmed Problem Liver function tests abnormal (362635752) Liver function study, abnormal (794.8) Active confirmed Problem Acid reflux (774605817) Acid reflux (530.81) Active confirmed Problem Epigastric pain (36262351) Abdominal discomfort, epigastric (789.06) Active confirmed Plan Of Treatment Future Test Test Name Order Date UPPER GI ENDOSCOPY 04/19/2012 Insurance Providers Payer Name Payer Address Payer Phone Subscriber Number Group Number Insured Name Patient Relationship to Insured Coverage Start Date Coverage End Date [address] [facility] [address] [facility] [place] [phone] [id number] JUANCHO SHANNON Self - patient is the insured Medical (General) History Medical History History ICD Code Denies MD,CVA,renal disease Hypothyroidism Hiatal hernia--EGD in 06/2012 with [...]
--- OUTSIDE RECORDS SUMMARY | 2025-09-29 18:54 | XMS_ITS | Clinical Summary ---
Author Organization [facility] Address [address] [place] [address] Phone Care Team Providers Care Secondary School Teacher Librarian Name Role Phone Cassius Strong MD Primary Care Provider [phone] Allergies Active Allergy Reactions Criticality Noted Date [...] topic Medical Devices Not on file Insurance [facility] MEDICARE REPLACEMENT [facility] MEDIC[facility] REPLAC[facility] CJ MEJIA [id number] [facility] MEDICARE REPLACEMENT [facility] MEDIC[facility]PLAC[facility] CJ MEJIA [id number] [facility] MEDICARE REPLACEMENT [facility] MEDICARE REPLACEMENT [facility] MEDICARE REPLACEMENT [facility] MEDICARE REPLACEMENT [facility] ONE CARE MEDICARE REPLACEMENT Care Teams Secondary School Teacher Librarian Relationship Specialty Start Date End Date Cassius Strong MD [address] [place] [address] PCP - General 08/03/17 Additional Source Comments The information contained in this document represents components of the legal health record. It is not the complete legal health record.[facility]
--- OUTSIDE RECORDS SUMMARY | 2025-09-29 18:54 | XMS_ITS | Patient Health Record ---
Author Organization [facility] Address [address] [place] [address] Care Team Providers Care Heel Finisher Name Role Phone Cassius Strong Primary Care Provider Colin Mercado Unavailable [phone] ALLERGIES Allergen (clinical drug ingredient) Drug/Non Drug Allergy documented on EMR Reaction Allergy Type Onset Date Status Apples/[place]/Leda ts/Pineapple/Strawb erry/Onion (uncoded) Unknown Allergy Active Gluten [...] out er thigh IM prn Active Ipratropium [place] 0.02 % Inhalation Active Medrol 16 MG [...] Notes Problem Food allergy (Z91.018) Active confirmed 014926963 Problem 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) Active confirmed 992989913 Problem Osteopenia (M85.80) Active confirmed 131607300 Problem Severe persistent asthma, uncomplicated (J45.50) Active confirmed 215252342 Problem Pancreatitis (K85.9) Active confirmed 60328139 Problem Steroid-dependent asthma (J45.909) Active confirmed 9959967313373503 Problem Insulin dependent diabetes mellitus with complications (E11.8) Active confirmed 71158035 Problem Myasthenia gravis (G70.00) Active confirmed 14370482 PLAN OF TREATMENT No Information Insurance Providers Payer Name Payer Address Payer Phone Subscriber Number Group Number Insured Name Patient Relationship to Insured Coverage Start Date Coverage End Date Medicare/[facility] [employer] [address] [place] [phone] [id number] Kala Deysi Self - patient is the insured Medicaid [address] [place] [address] [id number] Deysi Armendariz Self - patient is the [...]
== END 2025-09-29 14:14 | disposition home or self-care (01) ==
LOC: HO.HMCH 12:59
PROVIDERS: PCP Internal Medicine; Visit Provider Internal Medicine
DX: E10.65 Type 1 diabetes mellitus with hyperglycemia (principal)

== ENCOUNTER → 2025-09-29 12:59 | Outpatient (BNVA) | payer OTHER, SELFPAY | PROVIDERS: PCP Internal Medicine; Visit Provider Internal Medicine | DX: E10.65 Type 1 diabetes mellitus with hyperglycemia (principal); I10 Essential (primary) hypertension; E78.00 Pure hypercholesterolemia, unspecified; M51.360 Other intervertebral disc degeneration, lumbar region with discogenic back pain only; M16.0 Bilateral primary osteoarthritis of hip; G71.3 Mitochondrial myopathy, not elsewhere classified; J45.40 Moderate persistent asthma, uncomplicated; E03.9 Hypothyroidism, unspecified; I82.621 Acute embolism and thrombosis of deep veins of right upper extremity; I85.00 Esophageal varices without bleeding; K76.6 Portal hypertension; K31.89 Other diseases of stomach and duodenum; R79.89 Other specified abnormal findings of blood chemistry; D64.9 Anemia, unspecified; N28.9 Disorder of kidney and ureter, unspecified; E66.9 Obesity, unspecified; J98.8 Other specified respiratory disorders; Z79.4 Long term (current) use of insulin; Z68.41 Body mass index [BMI] 40.0-44.9, adult | CPT/HCPCS: 83036; 96127; 99212 ==

== ENCOUNTER 2025-09-30 11:34 | Outpatient (REF) | payer OTHER, SELFPAY ==
[2025-09-30 11:51] LABS: MANUAL DIFF FLAG NO
[2025-09-30 12:22] LABS: Hematocrit 36.2 % (37.0-47.0); Hemoglobin 11.6 g/dl (12.0-16.0); Imm Gran Abs Auto 0.01 X10*3/uL (0.00-0.03); Imm Gran Pct Auto 0.2 % (0.0-0.4); Lymphocytes Absolute Auto 1.5 X10*3/uL (1.2-4.9); Mean Corpuscular HGB Conc 32.0 g/dl (31.0-35.0); Mean Corpuscular Hemoglobin 27.2 pg (27.0-33.0); Mean Corpuscular Volume 85.0 fL (80.0-98.0); NRBC Abs Auto 0.000 X10*3/uL (0.0-0.012); NRBC Pct Auto 0.0 /100WBC (0.0-0.2); Red Blood Count 4.26 X10*6/uL (4.20-5.50); White Blood Count 4.1 X10*3/uL (4.8-10.8)
[2025-09-30 12:24] LABS: Platelet Count 93 X10*3/uL (160-400)
[2025-09-30 12:55] LABS: Alanine Aminotransferase 57 U/L (0-31); Albumin Level 4.1 g/dL (3.5-5.0); Alkaline Phosphatase 101 U/L (39-117); Anion Gap 11 (12-20); Aspartate Amino Transferase 45 U/L (5-31); Blood Urea Nitrogen 15 mg/dL (9-16); Calcium 9.1 mg/dL (8.4-10.2); Carbon Dioxide 28 mmol/L (22-29); Chloride 103 mmol/L (96-108); Cholesterol 115 mg/dL (<200); Estimated Glomerular Filt Rate > 60; HDL Cholesterol 27 mg/dL (>40); Potassium 4.5 mmol/L (3.3-5.1); Sodium 137 mmol/L (135-145); Total Protein 6.5 g/dL (6.5-8.0); Triglycerides 126 mg/dL (<150)
[2025-09-30 13:00] LABS: Resp Syncy Virus RNA Qual PCR NEGATIVE (Negative); SARS COV2 PCR INHOUSE NEGATIVE (Negative)
[2025-09-30 13:12] LABS: Free T4 (Free Thyroxine) 1.25 ng/dL (0.71-1.85); Thyroid Stimulating Hormone 2.44 uIU/mL (0.32-4.0)
--- OUTSIDE RECORDS SUMMARY | 2025-09-30 15:20 | XMS_ITS | Clinical Summary ---
Author Organization [facility] Address [address] [place] [address] Phone Care Team Providers Care Bb Shot Packer Name Role Phone Cassius Strong MD Primary Care Provider [phone] Allergies Active Allergy Reactions Criticality Noted Date [...] [facility] MEDICARE REPLACEMENT CJ MEJIA [id number] [facility] MEDICARE REPLACEMENT [facility] MEDICARE REPLACEMENT CJ MEJIA [id number] [facility] MEDICARE REPLACEMENT [facility] MEDICARE REPLACEMENT [facility] MEDICARE REPLACEMENT [facility] MEDICARE REPLACEMENT [facility] ONE CARE MEDICARE REPLACEMENT Care Teams Bb Shot Packer Relationship Specialty Start Date End Date Cassius Strong MD [address] [place] [address] PCP - General 08/03/17 Additional Source Comments The information contained in this document represents components of the legal health record. It is not the complete legal health record.[facility]
--- OUTSIDE RECORDS SUMMARY | 2025-09-30 15:20 | XMS_ITS | Clinical Summary ---
Author Organization [facility] it Address [address] [place] [address] Care Team Providers Care Exhaust Tender Name Role Phone Cassius Strong MD Primary Care Provider [phone] Surgical History Surgery Date Site/Laterality Comments HYSTERECTOMY PROCEDURE: HISTORICAL HYSTERECTOMY FOOT SURGERY PROCEDURE: HISTORICAL FOOT SURGERY APPENDECTOMY PROCEDURE: HISTORICAL APPENDECTOMY Medical History Medical History Date Comments Brugada syndrome 08/01/2017 DX:Brugada synd adam Chronic obstructive pulmonar y disease ([facility] V24, [facility] V28) 07/07/2017 DX:Chronic obstructive pulm onary disease (HCC) Diabetes mellitus type 2, un complicated ([facility] V24, [facility] V28) 08/17/2017 DX:Diabetes mellitus type 2 , uncomplicated (HCC) GERD (gastroesophageal reflux disease) 08/17/2017 DX:GERD (gastroesophageal reflux disease) History of pancreatitis 11/10/2017 DX:Histo ry of pancreatitis Hyperlipidemia 08/17/2017 DX:Hyperlipidemi a Hypogammaglobulinemia ([facility] V24) 08/01/2017 DX:Hypogammaglobulinemia (HCC) Hypothyroidism 08/17/2017 DX:Hypothyroidis m 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[facility] V24, [facility] V28) 017 DX: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HCC) Obesity 05/05/2017 DX:Obesity Obstructive sleep apnea syndrome 08/01/2017 DX:Obstructive sleep apnea syndrome; COMMENT: BiPAP Osteoarthritis 08/17/2017 DX:Osteoarthriti s Port-A-Cath in place 11/10/2017 DX:Port-A-C ath in place RA (rheumatoid arthritis) ([facility] [place] V24, [facility] V28) 08/17/2017 DX:RA (rheumatoid arthritis) (HCC) Severe persistent asthma dep endent on systemic steroids ([facility] V28) 11/10/2017 DX:Severe persistent a sthma [...] age to complete this topic Care Teams Exhaust Tender Relationship Specialty Start Date End Date Cassius Strong MD [address] [place] [address] Dr [address] CONSTANCE Alvarez PCP - General 04/15/11
--- OUTSIDE RECORDS SUMMARY | 2025-09-30 15:20 | XMS_ITS | Patient Health Record ---
Author Organization [facility] Address [address] [place] [address] Care Team Providers Care Hide Stretcher Hand Name Role Phone Cassius Strong MD Primary Care Provider Babak Kendrick Unavailable [phone] Allergies Allergen (clinical drug ingredient) Drug/Non Drug [...] Medrol 8mg Active Ventolin HFA Active Ipratropium [place] Active Ibuprofen 600mg Acti ve Claritin 10mg [...] Risk Notes Problem Left upper quadrant pain (379809065) Abdominal pain, left upper quadrant (789.02) Active confirmed Problem Constipation (13409515) Constipation (564.00) Active confirmed Problem Gastroesophageal reflux disease (729940575) GERD (gastroesophage al reflux disease) (530.81) Active confirmed Problem Liver function tests abnormal (984056956) Liver function study, abnormal (794.8) Active confirmed Problem Acid reflux (766160541) Acid reflux (530.81) Active confirmed Problem Epigastric pain (10184774) Abdominal discomfort, epigastric (789.06) Active confirmed Plan Of Treatment Future Test Test Name Order Date UPPER GI ENDOSCOPY 04/19/2012 Insurance Providers Payer Name Payer Address Payer Phone Subscriber Number Group Number Insured Name Patient Relationship to Insured Coverage Start Date Coverage End Date [facility] [address] [facility] [place] [phone] [id number] JUANCHO SHANNON Self - patient is the insured Medical (General) History Medical History History ICD Code Denies [place],CVA,renal disease Hypothyroidism Hiatal hernia--EGD in 06/2012 with [...]
--- OUTSIDE RECORDS SUMMARY | 2025-09-30 15:20 | XMS_ITS | Patient Health Record ---
Author Organization [facility] Address [address] [place] [address] Care Team Providers Care Chaser Apprentice Name Role Phone Cassius Strong Primary Care Provider Colin Mercado Unavailable [phone] ALLERGIES Allergen (clinical drug ingredient) Drug/Non Drug Allergy documented on EMR Reaction Allergy Type Onset Date Status Apples/[place]/Leda ts/Pineapple/Strawb erry/Onion (uncoded) Unknown Allergy Active Gluten [...] out er thigh IM prn Active Ipratropium [place] 0.02 % Inhalation Active Medrol 16 MG [...] Notes Problem Food allergy (Z91.018) Active confirmed 672883842 Problem 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) Active confirmed 777823780 Problem Osteopenia (M85.80) Active confirmed 750537418 Problem Severe persistent asthma, uncomplicated (J45.50) Active confirmed 710605979 Problem Pancreatitis (K85.9) Active confirmed 68433353 Problem Steroid-dependent asthma (J45.909) Active confirmed 4719128918934582 Problem Insulin dependent diabetes mellitus with complications (E11.8) Active confirmed 32439551 Problem Myasthenia gravis (G70.00) Active confirmed 85272328 PLAN OF TREATMENT No Information Insurance Providers Payer Name Payer Address Payer Phone Subscriber Number Group Number Insured Name Patient Relationship to Insured Coverage Start Date Coverage End Date Medicare/[facility] [employer] [address] [place] [phone] [id number] Kala Deysi Self - patient is the insured Medicaid [address] [place] [address] [id number] Deysi Armendariz Self - patient is the [...]
== END 2025-09-30 11:35 | disposition home or self-care (01) ==
LOC: HO.LAB 11:34
PROVIDERS: PCP Internal Medicine; Visit Provider Internal Medicine
DX: E78.00 Pure hypercholesterolemia, unspecified (principal); E55.9 Vitamin D deficiency, unspecified; D64.9 Anemia, unspecified; E03.9 Hypothyroidism, unspecified; J10.1 Influenza due to other identified influenza virus with other respiratory manifestations
CPT/HCPCS: 80053; 80061; 82306; 84439; 84443; 85025; 87637

== ENCOUNTER 2025-10-01 10:35 | Outpatient (AMB) | payer OTHER, SELFPAY ==
--- NOTE | 2025-10-01 10:39 | MHC.OFFVIS ---
Vital Signs 10/01/25 10:40 Height 5 ft 4 in Weight 235 lb BMI 40.3 BP 160/74 H Blood Pressure Location Lt radial Position Sitting Respiration 16 Pulse 80 Pulse Source Pulse Oximeter Pulse Oximetry (%) 95 Oxygen Delivery Method Room Air Intake Visit Reasons: S/P Right L3-L4 TFESI Clinical Research Administrator Required: No Allergies cephalexin Allergy (Severe, Verified 10/01/25 10:41) Difficulty Breathing latex (LATEX) Allergy (Severe, Verified 10/01/25 10:41) Difficulty Breathing levofloxacin (From LEVAQUIN) Allergy (Severe, Verified 10/01/25 10:41) SHORTNESS OF BREATH, RASH, rash morphine (MORPHINE) Allergy (Severe, Verified 10/01/25 10:41) RASH, asthma exacerbation, rash baclofen (BACLOFEN) Allergy (Intermediate, Verified 10/01/25 10:41) Rash celecoxib (Celebrex) Allergy (Intermediate, Verified 10/01/25 10:41) itching, rash, flushing prednisone (PREDNISONE) Allergy (Intermediate, Verified 10/01/25 10:41) RASH, asthma exacerbation, rash codeine Allergy (Unknown, Verified 10/01/25 10:41) Rash gluten (GLUTEN) Allergy (Unknown, Verified 10/01/25 10:41) UNKNOWN oxycodone Allergy (Unknown, Verified 10/01/25 10:41) rash ranitidine Allergy (Unknown, Verified 10/01/25 10:41) unknown roflumilast (Daliresp) Allergy (Unknown, Verified 10/01/25 10:41) rash tramadol (TRAMADOL) Allergy (Unknown, Verified 10/01/25 10:41) RASH,SHORTNESS OF BREATH AND HEADACHE, asthma exacerbation, rash celery Allergy (Verified 10/01/25 10:41) Rash cyclobenzaprine (From Flexeril) Allergy (Verified 10/01/25 10:41) Rash and asthma exacerbation environmental allergies Allergy (Verified 10/01/25 10:41) Cleaning products cause asthma attack pineapple Allergy (Verified 10/01/25 10:41) Rash strawberry Allergy (Verified 10/01/25 10:41) Rash sulfamethoxazole (From Bactrim) Adverse Reaction (Intermediate, Verified 10/01/25 10:41) vertigo trimethoprim (From Bactrim) Adverse Reaction (Intermediate, Verified 10/01/25 10:41) vertigo diazepam (From Valium) Adverse Reaction (Verified 10/01/25 10:41) Cough Medication List - Last Reconciled 10/01/25 by Annmarie Jain LPN amoxicillin-pot clavulanate 875-125 mg 1 tab PO BID 10 days aspirin 81 mg PO DAILY atorvastatin 40 mg PO BEDTIME benralizumab (Fasenra) 30 mg subcut Q8W blood pressure monitor As directed blood sugar diagnostic (FreeStyle Lite Strips) As directed- checks 4-5 X/day blood-glucose meter (FreeStyle Lite Meter kit) As directed to check sugars 4 times a day calcium citrate 250 mg PO BID carvedilol 6.25 mg PO DAILY cholecalciferol (vitamin D3) 100 mcg (2 x 50 mcg (2,000 unit)) PO BEDTIME clotrimazole 10 mg PO 5XD PRN [DIABETIC SHOES DIABETIC SHOES - 1 PAIR - use as directed -- Dx: E11.9 -- diabetes mellitus] doxycycline hyclate 100 mg PO BID 7 days epinephrine 0.3 mg IM Q5M PRN ferrous sulfate (FeroSul) 325 mg PO DAILY fluconazole 100 mg PO DAILY 7 days hydromorphone 2 mg PO TID-QID PRN 7 days insulin aspart (niacinamide) 100 unit/mL (3 mL) (Fiasp FlexTouch U-100 Insulin) subcutaneously 3 times a day before meals; Fiasp 80-150 18 units 151-200 20 units 201-250 22 units 251-250 24 units over 300 26 units tid with meals with maximum 78 units per day insulin glargine (Lantus Solostar U-100 Insulin) 22 units subcut BEDTIME ipratropium bromide 2 sprays intranasal DAILY lactulose 10 grams (15 mL) PO DAILY PRN lancets (FreeStyle Lancets) 4 times a day levalbuterol tartrate 45 mcg/actuation (Xopenex HFA) 2 puffs inhalation Q6H PRN 30 days levothyroxine (Synthroid) 224 mcg (2 x 112 mcg) PO BEDTIME 90 days lidocaine 5% (Lidoderm) 1 patch topical DAILY PRN linaclotide 72 mcg PO DAILY loratadine 10 mg PO DAILY losartan 25 mg PO BEDTIME 90 days methylprednisolone (Medrol (Jarrett)) orally daily; take 2 tabs daily twice a day x 4, then 1 tab twice a day x 4 days, then 1 tab daily x 4 days 12 days methylprednisolone PO PER PKG DIR for 6 days montelukast 10 mg PO BEDTIME 90 days nebulizers As directed nystatin (Klayesta) 1 appl topical BID PRN omeprazole 40 mg PO BID@0630,1630 30 days ondansetron 8 mg PO Q8H PRN 10 days pen needle, diabetic USE TO INJECT FOUR TIMES DAILY DIRECTED pyridostigmine bromide 60 mg PO QID tiotropium bromide 1.25 mcg/actuation (Spiriva Respimat) 2 puffs inhalation DAILY tizanidine 4 mg (2 x 2 mg) PO BEDTIME PRN 30 days walker walker with wheels and seat HPI HPI S/P Right L3-L4 TFESI: Details: History of Present Illness The patient is a 54 year old female presenting for a follow-up after a right L3-4 transforaminal epidural steroid injection. The injection was administered four weeks ago and she reports it helped the targeted area. She reports a new pain on the outer part of her right hip, radiating to the thigh. She recalls having a similar issue about 4-5 years ago, which was diagnosed as possible bursitis and improved after one injection. The patient reports having a antoinette in her leg from a past hip surgery and feels the pain is related to it. The patient has a history of pancreatitis that occurred over 9.5 years ago and has not recurred. She was told she could not take weight loss medications due to this history. She also has a history of asthma and is currently on a steroid regimen for it. She is trying to manage her weight, which she feels is affected by cortisone shots. Pain Description - Location: The patient reports pain on the outer part of the right hip, which radiates into the thigh, associated with the location of a surgical antoinette. - Alleviating factors: Her recent L3-4 transforaminal epidural steroid injection provided relief in the targeted area of her back. - Associated factors: The patient notes that increased pressure is placed on her right leg due to her gait. - Interference with function: The pain limits her ability to move and lean. Pain Management: - Analgesia: The patient reports that the right L3-4 transforaminal epidural steroid injection performed 4 weeks ago was effective for the targeted pain. - Activities of Daily Living: Pain limits her movement, and she cannot lean too much once the pain begins. - Adverse Effects: The patient is concerned that cortisone shots contribute to weight gain. - Affect: Not discussed. - Aberrant Drug Related Behaviors: Not discussed. [facility] Medical History CKD (chronic kidney disease) stage 3, GFR 30-59 ml/min Class 3 obesity Acute kidney injury (nontraumatic) Back pain Renal insufficiency Obesity (BMI 30-39.9) Mitochondrial myopathy Diabetes mellitus Portal hypertensive gastropathy Esophageal varices determined by endoscopy Portal hypertension HTN (hypertension) Anemia Chronic restrictive lung disease Brugada syndrome Shortness of breath Encounter for care related to Port-a-Cath Tinea pedis Recurrent cellulitis of lower extremity CHARLES (obstructive sleep apnea) Hypogammaglobulinemia Cellulitis of both lower extremities Right hip pain Lumbar degenerative disc disease Benign essential hypertension Asthma Acquired hypothyroidism Pure hypercholesterolemia Hx of cataract Osteopenia Osteoarthritis of hip Gastritis Surgical History History of revision of total replacement of right hip joint (~12/2019) Hx of hand surgery History of removal of Port-a-Cath History of total right hip arthroplasty (~06/03/19) History of eye surgery (~09/2017) History of hip surgery Hx of foot surgery (~01/02/19) History of removal of cyst Hx of left knee surgery History of elbow surgery (~07/2016) Hx of thumb surgery Hx of appendectomy Hx of hysterectomy (~07/2011) Hx of bilateral breast reduction surgery Family History Father Leukemia Mother Hypertension Diabetes Sister Alive and well Brother Pancreatic cancer Paternal Grandmother Stomach cancer Paternal Grandmother Throat cancer Social History Household Members: Family Housing: Apartment Do you presently have visiting nurse or other home services: No Alcohol intake: never Comment: low risk, non-skid socks Patient Tobacco Use Status: Never used Tobacco e-Cigarette/Vaping Use: Never Used Second Hand Smoke Exposure: No Advance Directives Date on File: 10/02/23 service: No Current occupational status: disabled Current occupation: rt handed Cognitive needs: No Hearing needs: No Vision needs: No Physical Exam Vital Signs: Last Vital Signs Pulse 80 10/01/25 10:40 Resp 16 10/01/25 10:40 BP 160/74 H 10/01/25 10:40 Pulse Ox 95 10/01/25 10:40 Oxygen Delivery Method Room Air 10/01/25 10:40 BMI result Body Mass Index 40.3 Assessment & Plan Assessment & Plan (1) Trochanteric bursitis: Code(s): M70.60 - Trochanteric bursitis, unspecified hip Category: Medical (2) Lumbar radicular pain: Code(s): M54.16 - Radiculopathy, lumbar region Category: Medical Plan Plan Patient was informed and verbally consented to the use of an ambient scribe for clinic note documentation during this visit. 1. Right Trochanteric Bursitis - The patient reports right-sided thigh pain and had a good response to a prior injection for what was suspected to be bursitis. - A right greater trochanteric bursa injection is planned. - The procedure will be scheduled for the first week of October, approximately 6 to 7 weeks after her last steroid injection. - A half-dose of steroid will be used for the injection, considering her current steroid use for asthma and concerns about weight gain. Discussion Notes I reviewed the patient's response to the recent right L3-4 transforaminal injection, to which she had a good response. She continues to have right-sided thigh pain, which we discussed treating with a right greater trochanteric injection. This procedure is planned for the first week of October. Due to her ongoing steroid use for asthma and concerns about weight gain, we agreed to use a half-dose of steroid for the injection. Patient Instructions - We will schedule an appointment for a right hip (bursa) injection for the first week of October. - A lower dose of cortisone will be used for this injection to reduce side effects. - Continue your efforts to manage your weight with diet, as we discussed that movement can be difficult due to your pain. Coding Level of Care Code Est Pt Level 3 (74108) Diagnoses Trochanteric bursitis M70.60 Lumbar radicular pain M54.16
[2025-10-01 10:40] VITALS: BP 160/74; PULSE 80; RESP 16; O2SAT 95; BMI 40.3
--- OUTSIDE RECORDS SUMMARY | 2025-10-01 13:14 | XMS_ITS | Patient Health Record ---
Author Organization [facility] Address [address] [place] [address] Care Team Providers Care Manager Hospitality Name Role Phone Cassius Strong Primary Care Provider Colin Mercado Unavailable [phone] ALLERGIES Allergen (clinical drug ingredient) Drug/Non Drug Allergy documented on EMR Reaction Allergy Type Onset Date Status Apples/[place]/Leda ts/Pineapple/Strawb erry/Onion (uncoded) Unknown Allergy Active Gluten [...] out er thigh IM prn Active Ipratropium [place] 0.02 % Inhalation Active Medrol 16 [...] Notes Problem Food allergy (Z91.018) Active confirmed 762428209 Problem 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) Active confirmed 108172044 Problem Osteopenia (M85.80) Active confirmed 428010533 Problem Severe persistent asthma, uncomplicated (J45.50) Active confirmed 304187972 Problem Pancreatitis (K85.9) Active confirmed 20960211 Problem Steroid-dependent asthma (J45.909) Active confirmed [id number] Problem Insulin dependent diabetes mellitus with complications (E11.8) Active confirmed 06108710 Problem Myasthenia gravis (G70.00) Active confirmed [id number] PLAN OF TREATMENT No Information Insurance Providers Payer Name Payer Address Payer Phone Subscriber Number Group Number Insured Name Patient Relationship to Insured Coverage Start Date Coverage End Date Medicare/[facility] [employer] [address] [place] [phone] [id number] Kala Deysi Self - patient is the insured Medicaid [address] [place] [phone] [id number] Deysi Armendariz Self - patient is the [...]
--- OUTSIDE RECORDS SUMMARY | 2025-10-01 13:14 | XMS_ITS | Clinical Summary ---
Author Organization [facility] Address [address] [place] [address] Phone Care Team Providers Care Director Park Name Role Phone Cassius Strong MD Primary Care Provider [phone] Allergies Active Allergy Reactions Criticality Noted Date [...] topic Medical Devices Not on file Insurance [facility] MEDICARE REPLACEMENT [facility] MEDICARE REPLACEMENT [id number] [facility] MEDICARE REPLACEMENT [facility] MEDICARE REPLACEMENT [id number] [facility] MEDICARE REPLACEMENT [facility] MEDICARE REPLACEMENT [facility] MEDICARE [facility]PLACEMENT [facility] MEDICARE REPLACEMENT [facility] MEDICARE REPLACEMENT Care Teams Director Park Relationship Specialty Start Date End Date Cassius Strong MD [address] [place] [address] PCP - General 08/03/17 Additional Source Comments The information contained in this document represents components of the legal health record. It is not the complete legal health record.[facility]
--- OUTSIDE RECORDS SUMMARY | 2025-10-01 13:15 | XMS_ITS | Patient Health Record ---
Author Organization [facility] Address [address] [place] [address] Care Team Providers Care Cash Crop Farmer Name Role Phone Cassius Strong MD Primary Care Provider Babak Kendrick Unavailable [phone] Allergies Allergen (clinical drug ingredient) Drug/Non Drug [...] Medrol 8mg Active Ventolin HFA Active Ipratropium [place] Active Ibuprofen 600mg Acti ve Claritin 10mg [...] Risk Notes Problem Left upper quadrant pain (784978959) Abdominal pain, left upper quadrant (789.02) Active confirmed Problem Constipation (97461263) Constipation (564.00) Active confirmed Problem Gastroesophageal reflux disease (905939775) GERD (gastroesophage al reflux disease) (530.81) Active confirmed Problem Liver function tests abnormal (168684088) Liver function study, abnormal (794.8) Active confirmed Problem Acid reflux (559978877) Acid reflux (530.81) Active confirmed Problem Epigastric pain (41232017) Abdominal discomfort, epigastric (789.06) Active confirmed Plan Of Treatment Future Test Test Name Order Date UPPER GI ENDOSCOPY 04/19/2012 Insurance Providers Payer Name Payer Address Payer Phone Subscriber Number Group Number Insured Name Patient Relationship to Insured Coverage Start Date Coverage End Date [facility] [address] [facility] [place] [place] [phone] [id number] JUANCHO SHANNON Self - patient is the insured Medical (General) History Medical History History ICD Code Denies GA,CVA,renal disease Hypothyroidism Hiatal hernia--EGD in 06/2012 with [...]
--- OUTSIDE RECORDS SUMMARY | 2025-10-01 13:15 | XMS_ITS | Clinical Summary ---
Author Organization 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 DX:Brugada synd adam Chronic obstructive pulmonar y disease ([facility] V24, [facility] V28) 07/07/2017 DX:Chronic obstructive pulm onary disease (HCC) Diabetes mellitus type 2, un complicated ([facility] V24, [facility] V28) 08/17/2017 DX:Diabetes mellitus type 2 , uncomplicated (HCC) GERD (gastroesophageal reflux disease) 08/17/2017 DX:GERD (gastroesophageal reflux disease) History of pancreatitis 11/10/2017 DX:Histo ry of pancreatitis Hyperlipidemia 08/17/2017 DX:Hyperlipidemi a Hypogammaglobulinemia ([facility] V24) 08/01/2017 DX:Hypogammaglobulinemia (HCC) Hypothyroidism 08/17/2017 DX:Hypothyroidis m 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[facility] V24, [facility] V28) 017 DX: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HCC) Obesity 05/05/2017 DX:Obesity Obstructive sleep apnea syndrome 08/01/2017 DX:Obstructive sleep apnea syndrome; COMMENT: BiPAP Osteoarthritis 08/17/2017 DX:Osteoarthriti s Port-A-Cath in place 11/10/2017 DX:Port-A-C ath in place RA (rheumatoid arthritis) ([facility] [place] V24, [facility] V28) 08/17/2017 DX:RA (rheumatoid [...] age to complete this topic Care Teams Electrical Installation Supervisor Relationship Specialty Start Date End Date Cassius Strong MD [address] [place] [address] Dr [address] CONST[place] Alvarez PCP - General 04/15/11
== END 2025-10-01 11:07 | disposition home or self-care (01) ==
LOC: HO.PMC 10:35
PROVIDERS: PCP Internal Medicine; Visit Provider Internal Medicine
DX: M70.60 Trochanteric bursitis, unspecified hip (principal); M54.16 Radiculopathy, lumbar region
CPT/HCPCS: 99213

== ENCOUNTER → 2025-10-01 10:35 | Outpatient (BNVA) | payer OTHER, SELFPAY | PROVIDERS: PCP Internal Medicine; Visit Provider Internal Medicine | DX: M70.61 Trochanteric bursitis, right hip (principal); M54.16 Radiculopathy, lumbar region | CPT/HCPCS: 99212 ==